=== PATIENT | male | born 1960 | race African-American/Black ===

== ENCOUNTER 2020-12-30 10:50 | Inpatient (IN) | payer OTHER ==
--- NOTE | 2020-12-30 11:55 | RAD REPORT ---
EXAM DESCRIPTION: RAD - Chest Single View - 12/30/2020 11:38 am CLINICAL HISTORY: COUGH, COVID positive COMPARISON: None TECHNIQUE: AP portable chest image was obtained 12/30/2020 11:38 am . FINDINGS: Lung volumes are relatively low. No dense consolidation or mass lesions seen. No failure o r volume overload. No definitive ground-glass opacification seen to indicate any significant degree o f COVID-19 pneumonia. Heart and vasculature are normal. No measurable pleural effusion and no pneumothorax. No acute bony abnormality seen. No acute aortic findings suspected. IMPRESSION: No acute cardiopulmonary process. No definitive evidence for a COVID-19 pneumonia. If medical management would be altered by definitive pneumonia diagnosis, CT chest imaging could be performed for more sensitive assessment of lung paren chyma.
[2020-12-30] MEDS ORDERED: NA CHLORIDE 0.9% 1,000 ML ONE (12:08)
[2020-12-30] MEDS ORDERED: ONDANSETRON 4 MG/2 ML VIAL ONE (12:08)
[2020-12-30 12:21] LABS: Absolute Lymphocytes (CBC) 0.8 K/uL (0.7-4.9); Basophils % 0.1 % (0-1.3); Hematocrit 32.5 % (39.6-49.0); Lymphocytes % 12.8 % (15.3-44.8); MPV 8.9 fL (7.6-11.3); RBC Red Blood Cell Count 3.97 M/uL (4.33-5.43)
[2020-12-30 12:34] LABS: ALT/SGPT 23 U/L (12-78); AST/SGOT 28 U/L (15-37); Albumin 2.9 g/dL (3.4-5.0); Alkaline Phosphatase 78 U/L (45-117); BUN Blood Urea Nitrogen 56 mg/dL (7-18); Bicarbonate 24 mmol/L (21-32); Bilirubin Direct < 0.1 mg/dL (0-0.2); Bilirubin Total 0.2 mg/dL (0.2-1.0); Glucose Level 209 mg/dL (74-106); Lipase 94 U/L (73-393); Potassium 5.4 mmol/L (3.5-5.1); Protein, Total 7.1 g/dL (6.4-8.2); Sodium Level 141 mmol/L (136-145)
--- NOTE | 2020-12-30 13:49 | EDPHYS ---
Physician Documentation [facility] Name: Dusty Cintron Age: 60 yrs Sex: Male : 1960 Arrival Date: 12/30/2020 Time: 10:54 Bed 17 Private MD: ED Physician Barry Ramirez HPI: 12/30 15:42 This 60 yrs old Black Male presents to ER via Ambulatory with complaints of COVID+, tw4 Cough. 15:42 The patient presents to the emergency department with nausea, vomiting, Onset: The tw4 symptoms/episode began/occurred yesterday. Possible causes: unknown. The symptoms are aggravated by nothing. The symptoms are alleviated by nothing. Associated signs and symptoms: The patient has no apparent associated signs or symptoms. Severity of symptoms: At their worst the symptoms were moderate in the emergency department the symptoms are unchanged. The patient has not experienced similar symptoms in the past. Historical: - Allergies: 11:34 No Known Allergies; bp - Home Meds: 11:34 Insulin: Humulin 70/30 Sub-Q [Active]; BRILINTA oral oral [Active]; aspirin 81 mg Oral bp TbEC 1 tab once daily [Active]; - PMHx: 11:34 Diabetes - IDDM; CAD; bp - PSHx: 11:34 Heart stents; bp - Immunization history:: Adult Immunizations up to date. - Social history:: Smoking status: Patient denies any tobacco usage or history of. ROS: 15:46 Constitutional: Negative for fever, chills, and weight loss, Cardiovascular: Negative tw4 for chest pain, palpitations, and edema, Respiratory: Negative for shortness of breath, cough, wheezing, and pleuritic chest pain, Back: Negative for injury and pain, MS/Extremity: Negative for injury and deformity, Skin: Negative for injury, rash, and discoloration, Neuro: Negative for headache, weakness, numbness, tingling, and seizure. 15:46 Abdomen/GI: Positive for abdominal pain, nausea and vomiting, nausea, vomiting, diarrhea, Negative for abdominal cramps, abdominal distension, anorexia, dysphagia, hematemesis, black/tarry stool, rectal pain, rectal bleeding. Exam: 15:46 Constitutional: This is a well developed, well nourished patient who is awake, alert, tw4 and in no acute distress. Head/Face: Normocephalic, atraumatic. Chest/axilla: Normal chest wall appearance and motion. Nontender with no deformity. No lesions are appreciated. Cardiovascular: Regular rate and rhythm with a normal S1 and S2. No gallops, murmurs, or rubs. Normal PMI, no JVD. No pulse deficits. Respiratory: Lungs have equal breath sounds bilaterally, clear to auscultation and percussion. No rales, rhonchi or wheezes noted. No increased work of breathing, no retractions or nasal flaring. Abdomen/GI: Soft, non-tender, with normal bowel sounds. No distension or tympany. No guarding or rebound. No evidence of tenderness throughout. Back: No spinal tenderness. No costovertebral tenderness. Full range of motion. MS/ Extremity: Pulses equal, no cyanosis. Neurovascular intact. Full, normal range of motion. Neuro: Awake and alert, GCS 15, oriented to person, place, time, and situation. Cranial nerves II-XII grossly intact. Motor strength 5/5 in all extremities. Sensory grossly intact. Cerebellar exam normal. Normal gait. Vital Signs: 11:31 BP 147 / 92; Pulse 89; Resp 17; Temp 100.1; Pulse Ox 97% ; Weight 92.99 kg; Height 5 bp ft. 11 in. (180.34 cm); 13:00 BP 157 / 86; Pulse 88; Resp 16; Pulse Ox 100% ; bp 11:31 Body Mass Index 28.59 (92.99 kg, 180.34 cm) bp MDM: 11:19 Patient medically screened. tw4 15:47 Differential diagnosis: Nonspecific abd pain, gastritis, cholecystitis. Data reviewed: tw4 vital signs, nurses notes. Data interpreted: Pulse oximetry: Interpretation: normal. Counseling: I had a detailed discussion with the patient and/or guardian regarding: the historical points, exam findings, and any diagnostic results supporting the discharge/admit diagnosis, lab results, radiology results. Physician consultation: Case Siu regarding admission. 12/30 11:37 Order name: Basic Metabolic Panel tw4 12/30 11:37 Order name: CBC with Diff; Complete Time: 12:46 tw4 12/30 11:37 Order name: Hepatic Function tw4 12/30 11:37 Order name: Lipase; Complete Time: 12:46 tw4 12/30 11:38 Order name: Basic Metabolic Panel; Complete Time: 12:46 EDVA 12/30 12:46 Interpretation: Normal except: CRE 3.03; BUN 56; GLUC 209; CL 109; K 5.4; CA 8.1. tw4 12/30 11:38 Order name: Liver (Hepatic) Function; Complete Time: 12:46 EDVA 12/30 10:58 Order name: CXR XRAY; Complete Time: 12:46 tw4 12/30 11:37 Order name: IV Saline Lock; Complete Time: 12:03 tw4 12/30 11:37 Order name: Labs collected and sent; Complete Time: 12:03 tw4 Administered Medications: 12:00 Drug: Zofran (Ondansetron) 4 mg Route: IVP; Site: right forearm; bp 12:00 Drug: NS 0.9% 1000 ml Route: IV; Rate: 1 bolus; Site: right forearm; bp Disposition: 12/30/20 13:47 Hospitalization ordered by Case Siu for Observation. Preliminary diagnosis are Acute kidney failure, Nausea and vomiting. - Bed requested for Telemetry/MedSurg (observation). - Status is Observation. aa5 - Condition is Stable. - Problem is new. - Symptoms have improved. Signatures: Dispatcher [employer] Glory Granda, RN RN dw Ivett Browning, RN RN aa5 Gabino Wgigins RN RN Barry Posey MD MD tw4 Corrections: (The following items were deleted from the chart) 15:56 13:47 Hospitalization Ordered by Case Siu for Observation. Preliminary diagnosis dw is Acute kidney failure; Nausea and vomiting. Bed requested for Telemetry/MedSurg (observation). Status is Observation. Condition is Stable. Problem is new. Symptoms have improved. tw4 17:31 15:56 12/30/2020 13:47 Hospitalization Ordered by Case Siu for Observation. aa5 Preliminary diagnosis is Acute kidney failure; Nausea and vomiting. Bed requested for Telemetry/MedSurg (observation). Status is Observation. Condition is Stable. Problem is new. Symptoms have improved. dw
--- NOTE | 2020-12-30 13:49 | ER ---
Nurse's Notes [facility] Name: Dusty Cintron Age: 60 yrs Sex: Male : 1960 Arrival Date: 12/30/2020 Time: 10:54 Bed 17 Private MD: Diagnosis: Acute kidney failure;Nausea and vomiting Presentation: 12/30 11:31 Chief complaint: Patient states: TEST COVID + LAST WEDNESDAY, FEELING WORSE WITH N/V AND bp FATIGUE LAST PM. Coronavirus screen: Client reports previous positive COVID test result. Ebola Screen: No symptoms or risks identified at this time. Initial Sepsis Screen: Does the patient meet any 2 criteria? No. Patient's initial sepsis screen is negative. Does the patient have a suspected source of infection? No. Patient's initial sepsis screen is negative. Risk Assessment: Do you want to hurt yourself or someone else? Patient reports no desire to harm self or others. Onset of symptoms was December 29, 2020 at 19:00. 11:31 Method Of Arrival: Ambulatory bp 11:31 Acuity: DAVY 3 bp Triage Assessment: 11:34 General: Appears distressed, uncomfortable, Behavior is cooperative, appropriate for bp age, anxious. Pain: Denies pain. EENT: No deficits noted. Neuro: No deficits noted. Cardiovascular: No deficits noted. Respiratory: Reports cough that is. GI: Reports nausea, vomiting. : No signs and/or symptoms were reported regarding the genitourinary system. Derm: No deficits noted. Musculoskeletal: No deficits noted. Historical: - Allergies: 11:34 No Known Allergies; bp - Home Meds: :34 Insulin: Humulin 70/30 Sub-Q [Active]; BRILINTA oral oral [Active]; aspirin 81 mg Oral bp TbEC 1 tab once daily [Active]; - PMHx: 11:34 Diabetes - IDDM; CAD; bp - PSHx: 11:34 Heart stents; bp - Immunization history:: Adult Immunizations up to date. - Social history:: Smoking status: Patient denies any tobacco usage or history of. Screenin:36 Abuse screen: Denies threats or abuse. Denies injuries from another. Nutritional bp screening: No deficits noted. Tuberculosis screening: No symptoms or risk factors identified. Fall Risk None identified. Assessment: 11:36 General: SEE TRIAGE NOTE. bp 13:31 Reassessment: No changes from previously documented assessment. Patient and/or family bp updated on plan of care and expected duration. Pain level reassessed. Patient is alert, oriented x 3, equal unlabored respirations, skin warm/dry/pink. ALL CURRENT ORDERS COMPLETED. Vital Signs: 11:31 BP 147 / 92; Pulse 89; Resp 17; Temp 100.1; Pulse Ox 97% ; Weight 92.99 kg; Height 5 bp ft. 11 in. (180.34 cm); 13:00 BP 157 / 86; Pulse 88; Resp 16; Pulse Ox 100% ; bp 11:31 Body Mass Index 28.59 (92.99 kg, 180.34 cm) bp ED Course: 10:54 Patient arrived in ED. mr 11:15 Gabino Wiggins, RN is Primary Nurse. bp 11:19 Barry Ramirez MD is Attending Physician. tw4 11:32 Triage completed. bp 11:35 Arm band placed on. bp 11:36 Patient has correct armband on for positive identification. Bed in low position. Call bp light in reach. Side rails up X2. 11:38 CXR XRAY In Process Unspecified. EDMS 12:00 Inserted saline lock: 20 gauge in right forearm, using aseptic technique. Blood bp collected. 13:46 Case Siu is Hospitalizing Provider. tw4 17:25 No provider procedures requiring assistance completed. Patient admitted, IV remains in aa5 place. Administered Medications: 12:00 Drug: Zofran (Ondansetron) 4 mg Route: IVP; Site: right forearm; bp 12:00 Drug: NS 0.9% 1000 ml Route: IV; Rate: 1 bolus; Site: right forearm; bp Outcome: 13:47 Decision to Hospitalize by Provider. tw4 17:25 Admitted to Med/surg accompanied by tech, via wheelchair, with chart. aa5 17:25 Condition: stable 17:25 Instructed on the need for admit. 17:31 Patient left the ED. aa5 Signatures: Dispatcher [employer] EDTN QuevedoLali mccann mr BrowningIvett, RN RN aa5 Gabino Wiggins, RN RN bp Barry Ramirez MD MD tw4
--- NOTE | 2020-12-30 15:27 | P.HP ---
Certification for Inpatient Patient admitted to: Observation With expected LOS: <2 Midnights Practitioner: I am a practitioner with admitting privileges, knowledge of patient current condition, hospital course, and medical plan of care. Services: Services provided to patient in accordance with Admission requirements found in Title 42 Section 412.3 of the Code of Federal Regulations Patient History Date of Service: 12/30/20 Reason for admission: Cough, nausea and vomiting. History of Present Illness: 60-year-old gentleman with a history of diabetes, coronary artery disease and chronic kidney disease presented to the emergency department with a complaint of progressive worsening nonproductive cough along with nausea and vomiting, diarrhea and shortness of breath with exertion. Patient stated he tested positive for COVID 1 week ago. He got his 1st dose of COVID 19 vaccine a few days before he tested positive. Workup in the ED is notable for acute renal failure with creatinine up to 3 compared to a baseline of 0.9 nine years ago. Patient states he follows with a reacher at [facility] but does not know his most recent creatinine value. His chest x-ray is negative for infiltrate. Patient not requiring oxygen. Patient is placed under observation for further management of acute renal failure secondary to dehydration. Allergies No Known Allergies Allergy (Unverified 08/14/12 08:53) - Past Medical/Surgical History -: Coronary artery disease -: Diabetes mellitus type 2 -: Chronic kidney disease -: Hypertension -: Hyperlipidemia -: Coronary stent - Family History Mother -: Diabetes - Social History Smoking Status: Never smoker Alcohol use: No CD- Drugs: No Place of Residence: Home Review of Systems Other: Except as documented, all other systems reviewed and negative. Physical Examination - Physical Exam General: Alert, In no apparent distress, Oriented x3 HEENT: Atraumatic, Normocephalic, PERRLA, EOMI Neck: Supple, JVD not distended Cardiovascular: No edema, Regular rate/rhythm, Normal S1 S2 Gastrointestinal: Soft and benign, Non-distended, No tenderness Musculoskeletal: No swelling, No tenderness Integumentary: No rashes, No erythema Neurological: Normal speech, Normal strength at 5/5 x4 extr, Cranial nerves 3-12 intact - Studies Laboratory Data (last 24 hrs) 12/30/20 12:00: WBC 6.30, Hgb 10.5 L, Hct 32.5 L, Plt Count 219 12/30/20 12:00: Sodium 141, Potassium 5.4 H, BUN 56 H, Creatinine 3.03 H, Glucose 209 H, Total Bilirubin 0.2, AST 28, ALT 23, Alkaline Phosphatase 78, Lipase 94 Assessment and Plan - Problems (Diagnosis) (1) Acute renal failure Current Visit: Yes Status: Acute (2) COVID-19 virus infection Current Visit: Yes Status: Acute (3) Diabetes mellitus type 2 in nonobese Current Visit: Yes Status: Acute (4) Coronary artery disease Current Visit: Yes Status: Acute (5) Hypertension Current Visit: Yes Status: Acute - Plan Place patient under observation. Aggressively hydrate with IV normal saline. Consult to nephrology Monitor renal function. Symptomatic treatment for COVID URI. Novolin N b.i.d., pre-meal Novolin R and insulin sliding scale for glucose management. Continue home medications for other chronic medical problems. Obtain renal ultrasound. Monitor and replete electrolytes as needed. - Advance Directives Does patient have a Living Will: No Does patient have a Durable POA for Healthcare: No
[2020-12-30] MEDS: HEPARIN 5000 UNIT/ML 1 ML VIAL SQ SCH (17:58)
[2020-12-30] MEDS: NA CHLORIDE 0.9% 1,000 ML IV SCH (17:58)
[2020-12-30] MEDS: INSULIN -REGULAR HUMAN 50 UNIT/0.5 ML ML SQ SCH ×2 (17:58→21:25)
[2020-12-30 18:43] VITALS: BMI 28.4
[2020-12-30] MEDS: BENZONATATE 100 MG CAP PO PRN (21:13)
[2020-12-30] MEDS: ACETAMINOPHEN 500 MG TAB PO PRN ×2 (21:13→22:42)
[2020-12-30 22:23] LABS: Urine Appearance CLEAR; Urine Bilirubin NEGATIVE (NEG); Urine Blood 2+ (NEG); Urine Color YELLOW; Urine Glucose NEGATIVE (NEG); Urine Protein 3+ (NEG); Urine Specific Gravity 1.015 (1.005-1.030); Urine Urobilinogen 0.2 mg/dL (0.2-1.0); Urine pH 5.5 (5.0-7.0)
[2020-12-30 22:27] LABS: Urine Microscopic Reflex ORDER UMIC
[2020-12-30 23:01] LABS: Urine Bacteria <20 /HPF (NONE SEEN)
[2020-12-31] MEDS: HEPARIN 5000 UNIT/ML 1 ML VIAL SQ SCH ×3 (00:21→17:52)
[2020-12-31] MEDS: NA CHLORIDE 0.9% 1,000 ML IV SCH ×4 (01:51→22:00)
[2020-12-31 04:13] LABS: Absolute Lymphocytes (CBC) 1.6 K/uL (0.7-4.9); Basophils % 0.2 % (0-1.3); Hematocrit 26.2 % (39.6-49.0); Lymphocytes % 26.8 % (15.3-44.8); MPV 8.9 fL (7.6-11.3); RBC Red Blood Cell Count 3.18 M/uL (4.33-5.43)
[2020-12-31 05:06] LABS: C-Reactive Protein 19.5 mg/L (<3.00); Ferritin 165.1 ng/mL (26-388); Magnesium 2.4 mg/dL (1.8-2.4); Phosphorus 3.3 mg/dL (2.5-4.9); Potassium 5.1 mmol/L (3.5-5.1); Thyroid Stimulating Hormone 0.851 uIU/mL (0.360-3.740)
[2020-12-31] MEDS: INSULIN -REGULAR HUMAN 50 UNIT/0.5 ML ML SQ SCH ×4 (08:03→19:34)
[2020-12-31] MEDS: ACETAMINOPHEN 500 MG TAB PO PRN ×2 (12:46→19:36)
[2020-12-31] MEDS: ONDANSETRON 4 MG/2 ML VIAL IV PRN ×2 (13:10→19:34)
--- NOTE | 2020-12-31 18:09 | P.PN ---
Subjective Date of Service: 12/31/20 Chief Complaint: Cough, nausea and vomiting. Subjective: Improving (doing well, feeling ok, denies shortness of breath, no abdominal pain) Review of Systems 10-point ROS is otherwise unremarkable Physical Examination - Vital Signs Temperature: 98.8 F Blood Pressure: 186/90 Pulse: 85 Respirations: 18 Pulse Ox (%): 94 Assessment & Plan Physician Review Additional Text: Physical Exam General: Alert, In no apparent distress, Oriented x3 HEENT: sclera anicteric, MMM Pulm: breathing comfortably on RA CV: No edema, Regular rate/rhythm, Normal S1 S2 Abd: Soft and benign, Non-distended, No tenderness Musculoskeletal: No swelling, No tenderness Problem List: Acute renal failure COVID-19 pneumonia DM2 CAD HTN continue with aggressive hydration with IV normal saline. nephrology consulted Monitor renal function. Symptomatic treatment for COVID-19 pneumonia. mild symptoms at this time, no O2 requirement Novolin N b.i.d., pre-meal Novolin R and insulin sliding scale for glucose management. Continue home medications for other chronic medical problems. Monitor and replete electrolytes as needed. Dispo: anticipate dc home in 24-48hrs Time Spent Managing Pts Care (In Minutes): 35
[2020-12-31] MEDS: BENZONATATE 100 MG CAP PO PRN (19:35)
[2020-12-31] MEDS ORDERED: HYDROCODONE/APAP 10/325 TAB PO PRN (20:18)
[2020-12-31] MEDS: METOPROLOL XL 25 MG TAB PO SCH (21:48)
[2020-12-31] MEDS: ATORVASTATIN 80 MG TAB PO SCH (21:48)
[2020-12-31] MEDS: TICAGRELOR 90 MG TABLET PO SCH (21:48)
[2020-12-31] MEDS ORDERED: ATORVASTATIN 80 MG TAB ONE (21:50)
[2020-12-31] MEDS ORDERED: METOPROLOL XL 25 MG TAB PO ONE (21:51)
[2020-12-31] MEDS ORDERED: TICAGRELOR 90 MG TABLET PO ONE (21:56)
[2020-12-31 22:26] VITALS: O2SAT 96
[2021-01-01] MEDS: HEPARIN 5000 UNIT/ML 1 ML VIAL SQ SCH ×3 (00:19→16:22)
[2021-01-01 04:10] LABS: Absolute Lymphocytes (CBC) 1.6 K/uL (0.7-4.9); Basophils % 0.2 % (0-1.3); Hematocrit 25.8 % (39.6-49.0); Lymphocytes % 27.5 % (15.3-44.8); MPV 8.7 fL (7.6-11.3); RBC Red Blood Cell Count 3.18 M/uL (4.33-5.43)
[2021-01-01 04:22] LABS: Albumin 2.2 g/dL (3.4-5.0); C-Reactive Protein 30.8 mg/L (<3.00); Ferritin 235.4 ng/mL (26-388); Phosphorus 3.1 mg/dL (2.5-4.9)
[2021-01-01] MEDS: METOPROLOL XL 25 MG TAB PO SCH ×2 (05:25→19:51)
[2021-01-01] MEDS: ONDANSETRON 4 MG/2 ML VIAL IV PRN (05:32)
[2021-01-01] MEDS: NA CHLORIDE 0.9% 1,000 ML IV SCH (05:38)
[2021-01-01] MEDS: HYDRALAZINE HCL 20 MG/ML VIAL IV PRN ×2 (06:35→11:33)
[2021-01-01 07:51] LABS: CKMB Creatine Kinase MB 2.7 ng/mL (0.3-3.6); Uric Acid 9.4 mg/dL (3.5-7.2)
[2021-01-01] MEDS: PROMETHAZINE INJ 25 MG/ML AMP IV PRN ×3 (07:54→19:48)
[2021-01-01] MEDS: TAMSULOSIN 0.4 MG SR CAP PO SCH (08:01)
[2021-01-01] MEDS: ASPIRIN 81 MG CHEWABLE TABLET PO SCH (08:01)
[2021-01-01] MEDS: INSULIN -REGULAR HUMAN 50 UNIT/0.5 ML ML SQ SCH ×4 (08:02→21:00)
--- NOTE | 2021-01-01 08:45 | RAD REPORT ---
EXAM DESCRIPTION: US - Renal Ultrasound-Complete - 01/01/2021 8:21 am CLINICAL HISTORY: Acute renal failure COMPARISON: None FINDINGS: The right kidney measures 12 cm with a normal echotexture. 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 Hydronephrosis is not seen. No gross abnormality of bladder IMPRESSION: Unremarkable renal ultrasound.
[2021-01-01] MEDS: TICAGRELOR 90 MG TABLET PO SCH ×2 (09:22→19:51)
[2021-01-01 13:04] LABS: C.diff Antigen/Toxin Ag neg : Tox neg (NEG : NEG)
[2021-01-01 15:19] LABS: Urine Protein/Creatinine Ratio 6.07 ratio (<0.15)
[2021-01-01] MEDS ORDERED: NA CHLORIDE 0.9% 500 ML IV ONE (16:00)
[2021-01-01 16:09] LABS: Urine Appearance CLEAR; Urine Bilirubin NEGATIVE (NEG); Urine Blood 2+ (NEG); Urine Color YELLOW; Urine Glucose 1+ (NEG); Urine Protein 3+ (NEG); Urine Urobilinogen 0.2 mg/dL (0.2-1.0); Urine pH 5.5 (5.0-7.0)
[2021-01-01] MEDS: carvediloL 12.5 MG TAB PO SCH (16:22)
[2021-01-01 16:39] LABS: Urine Microscopic Reflex ORDER UMIC
[2021-01-01 16:43] LABS: Urine Amorphous Sediment 1+ /HPF (NONE SEEN); Urine Bacteria <20 /HPF (NONE SEEN); Urine RBC <5 /HPF (NONE SEEN)
--- NOTE | 2021-01-01 17:09 | P.PN ---
Subjective Date of Service: 01/01/21 Chief Complaint: Cough, nausea and vomiting. Subjective: No new changes (with slight worse nausea overnight, not feeling as well today. BP elevated) Review of Systems 10-point ROS is otherwise unremarkable Physical Examination - Vital Signs Temperature: 98.6 F Blood Pressure: 172/76 Pulse: 88 Respirations: 18 Pulse Ox (%): 96 Assessment & Plan Physician Review Additional Text: Physical Exam General: Alert, nauseous HEENT: sclera anicteric, moist mucous membranes Pulm: breathing comfortably on RA CV: No edema, Regular rate/rhythm, Normal S1 S2 Abd: Soft and benign, Non-distended, No tenderness Musculoskeletal: No swelling, No tenderness Problem List: Acute renal failure - secondary to NSAID nausea/vomiting/diarrhea COVID-19 pneumonia DM2 CAD HTN nephrology consulted - continue IVF, labs /renal U/S ordered Symptomatic treatment for COVID-19 pneumonia. mild symptoms at this time, no O2 requirement Novolin N b.i.d., pre-meal Novolin R and insulin sliding scale for glucose management. n/v/d with some mild improvement of diarrhea, nausea/vomiting back again. timeline with symptoms likely due to COVID And Zofran did not help with the nausea, will try Phenergan Continue home medications for other chronic medical problems. remains hypertensive, nephrology titrating medications Monitor and replete electrolytes as needed. Dispo: anticipate dc home in ~48hrs Time Spent Managing Pts Care (In Minutes): 40
--- NOTE | 2021-01-01 17:43 | CON ---
Reason For Consultation: Elevated BUN and creatinine. History Of Present Illness: This is a 60-year-old gentleman with significant past medical history of coronary artery disease status post PTCA, diabetes complicated with neuropathy, no retinopathy. The patient was diagnosed with COVID 1 week ago. Then, his respiratory status got worse with cough, no sputum. Had fever. No chills. The patient apparently taking ibuprofen and Motrin 2 tablets twice a day for the last 1 week. The patient denied any IV contrast. The patient's upon arrival to the hospital creatinine was 3, currently trended down to 2.5. Blood pressure has been not controlled. Past Medical History: 1. Coronary artery disease status post PTCA. 2. Hypertension. 3. Hyperlipidemia. 4. Diabetes complicated with neuropathy. Past Surgical History: PTCA. Family History: Positive for diabetes. Social History: Denied smoking, denied drinking, denied drugs abuse. Allergies: NO KNOWN DRUGS ALLERGY. Review of Systems: Head and Neck: No red eye. No ear pain. GI: No nausea. No vomiting. Decreased intake. : No polyuria. No dysuria. No hematuria. 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 Respiratory: Has cough, has shortness of breath. Cardiovascular: No chest pain. Endocrine: No polydipsia. Skin: No rash. Neuro: Has neuropathy. Musculoskeletal: Generalized fatigue. Home Medications: Include lisinopril, hydrochlorothiazide, Brilinta, Flomax, insulin, hydrocodone, Lasix, atorvastatin, and aspirin. Physical Examination: Vital Signs: When I saw the patient; blood pressure 180/87, pulse of 92. Chest: Clear to auscultation. Heart: S1, S2. Regular. Abdomen: Soft, nontender. Extremity: No edema. Neuro: Alert and oriented x3. No focal. Laboratory Data: Upon admission to the hospital; sodium 141, potassium 5.4, bicarb 24, BUN 56, creatinine 3, GFR of 26, calcium 8.1. WBC 6.3, H and H 10.5/32. Today's lab; WBC 5.8, H and H 8.6/25.8. Sodium 142, potassium 5, bicarb 21, BUN 48, creatinine 2.5, GFR of 32, calcium 7.6, phosphorus 3.1. C- reactive protein 30, PTH 84, PC ratio of 6. Urinalysis has RBCs, no WBC. Renal ultrasound 10/24, no hydronephrosis. Chest x-ray, marginal congestion. Current Medications: Include aspirin, promethazine, Flomax, Brilinta, hydralazine. IV fluid has been held today. Assessment And Plan: 1. Acute kidney injury, multifactorial, secondary to COVID nephropathy/prerenal secondary to poor intake, superimposed of nonsteroidal intake. Hydrochlorothiazide, Lasix, and MARIA G inhibitor. On the recovery phase. The patient looked to me still on the dry side even though with the presence of elevation of blood pressure. I am going to go ahead and resume IV fluid at and we will monitor the patient closely given the improvement in the kidney function. Doubt to be any autoimmune disease as the patient is being improving without any special treatment, but with the presence of nephrotic range of proteinuria even though could be mostly secondary to his diabetes. I am going to go ahead and we will send for serology. I am going to send for serum protein electrophoresis and we will follow up the patient. 2. Hypertension, not controlled. I agree with holding the diuresis including hydrochlorothiazide and Lasix, holding MARIA G inhibitor. I am going to start the patient on hydralazine scheduled dose and hydralazine p.r.n. for better blood pressure control and we will continue to monitor the patient. We will add for calcium channel jose enrique. 3. Anemia with the presence of acute kidney injury. Light chain disease needs to be ruled out. I am going to send for serum protein electrophoresis. 4. COVID pneumonia as by primary. 5. Hyperkalemia, status post hydration, recovered, resolved. 6. Hematuria, no leukourea or proteinurea I am going to go ahead and repeat the UA, possible secondary to viral presentation. If kidney function continued to improve, I do not think it is any significant, but if kidney function did not improve at that time, we will follow up serology and we will consider if we are going to need kidney biopsy or not. Time spent discussing with the patient, examining the patient, exam [id number], placing order, discussing with staff and other consulting include including Cardiology and Primary 75 minutes. AYANNA Voice ID: [id number] Report ID: [id number] NANCY
[2021-01-01] MEDS: HYDRALAZINE HCL 25 MG TABLET PO SCH (19:51)
[2021-01-01] MEDS: ATORVASTATIN 80 MG TAB PO SCH (19:53)
[2021-01-02] MEDS: HEPARIN 5000 UNIT/ML 1 ML VIAL SQ SCH ×2 (01:28→08:50)
[2021-01-02 04:10] LABS: Absolute Lymphocytes (CBC) 1.1 K/uL (0.7-4.9); Basophils % 0.2 % (0-1.3); Hematocrit 26.9 % (39.6-49.0); Lymphocytes % 13.6 % (15.3-44.8); MPV 8.7 fL (7.6-11.3); RBC Red Blood Cell Count 3.27 M/uL (4.33-5.43)
[2021-01-02 05:55] LABS: Albumin 2.2 g/dL (3.4-5.0); C-Reactive Protein 22.7 mg/L (<3.00); Ferritin 330.8 ng/mL (26-388); Folic Acid, (Folate) 17.3 ng/mL (3.1-17.5); Magnesium 2.7 mg/dL (1.8-2.4); Phosphorus 3.4 mg/dL (2.5-4.9); Potassium 4.5 mmol/L (3.5-5.1); Thyroid Stimulating Hormone 0.672 uIU/mL (0.360-3.740); Uric Acid 9.9 mg/dL (3.5-7.2)
[2021-01-02] MEDS: carvediloL 12.5 MG TAB PO SCH (06:24)
[2021-01-02] MEDS: INSULIN -REGULAR HUMAN 50 UNIT/0.5 ML ML SQ SCH ×2 (08:48→12:01)
[2021-01-02] MEDS: ASPIRIN 81 MG CHEWABLE TABLET PO SCH (08:48)
[2021-01-02] MEDS: METOPROLOL XL 25 MG TAB PO SCH (08:49)
[2021-01-02] MEDS: HYDRALAZINE HCL 25 MG TABLET PO SCH (08:49)
[2021-01-02] MEDS: TAMSULOSIN 0.4 MG SR CAP PO SCH (08:49)
[2021-01-02] MEDS: TICAGRELOR 90 MG TABLET PO SCH (08:59)
[2021-01-02] MEDS ORDERED: predniSONE 20 MG TAB PO SCH (09:00)
[2021-01-02] MEDS ORDERED: AMLODIPINE 10 MG TAB PO SCH (09:00)
[2021-01-02 12:20] VITALS: BP 135/69; TEMP 99.2
[2021-01-02] MEDS ORDERED: SOD FERRIC GLUC COMPLX/SUCROSE 250 MG in NA CHLORIDE 0.9% 250 ML IV SCH (13:00)
--- NOTE | 2021-01-02 15:13 | RAD REPORT ---
EXAM DESCRIPTION: RAD - Chest Single View - 01/02/2021 2:54 pm CLINICAL HISTORY: COPD Chest pain. COMPARISON: Chest Single View dated 12/30/2020 FINDINGS: Portable technique limits examination quality. The lungs are grossly clear. The heart is upper limit of normal in size. No displaced fractures. IMPRESSION: No acute intrathoracic process suspected.
--- NOTE | 2021-01-02 18:55 | PN ---
Date of Progress Note: 01/02/2021 Subjective: The patient was admitted with acute kidney injury secondary to COVID nephropathy plateau. The patient found to have nephrotic range proteinuria. Serology still pending. Patient symptomatically has been improved. Objective: Vital Signs: Blood pressure 135/69, pulse of 79, afebrile. Chest: Clear to auscultation. Heart: S1, S2, regular. Abdomen: Soft, nontender. Extremities: No edema. Laboratory Data: WBC 7.8, H and H 8.5/26.9. Sodium 146, potassium 4.5, bicarb 20, BUN 46, creatinine 2.6, GFR of 30. Uric acid 9.9. Iron saturation is 15, ferritin of 330. CK of 1400. Serum protein electrophoresis is still pending. PTH of 84. Urinalysis, PC ratio of 6, gram negative for infection. Serology and immunology still pending. Renal ultrasound showed normal size kidney, 12 and 10. No hydronephrosis. Current Medications: The patient on include IV iron, heparin, Brilinta, amlodipine, carvedilol, hydralazine 50 t.i.d., metoprolol, prednisone, hydrocodone. Assessment And Plan: 1. Acute kidney injury on chronic kidney disease. Normal size kidney. Nephrotic range proteinuria. Baseline creatinine and known back in 2011 within normal limit. It is multifactorial secondary to #1. 2. MARIA G inhibitor. 3. Nonsteroidal use. 4. Renal. 5. COVID nephropathy. 6. MARIA G inhibitor and Lasix/hydrochlorothiazide, currently plateau. With the presence of nephrotic range proteinuria and anemia, light chain disease needs to be ruled out. The patient is stable from the renal standpoint for discharge planning. We will keep holding MARIA G inhibitor, Lasix and hydrochlorothiazide. Will look for discontinue and we will follow up serology as outpatient. 7. Iron deficiency anemia. Continue IV iron. 8. Hypertension, controlled, optimal, keep holding MARIA G inhibitor, hydrochlorothiazide and Lasix. We will try to resume it as outpatient and we will follow up. 9. Anemia of chronic kidney disease, iron deficiency anemia. Started on IV iron. We will follow up. 10. COVID pneumonia as by primary. 11. Hyperkalemia, recovered, resolved. 12. Nephrotic range proteinuria with hematuria that has been resolved after hydration. As above, follow up serology. Time spent discussing with the patient, examining the patient, exam [id number], placing order, discussing with staff and other consulting include including Cardiology and Primary 45 minutes. AYANNA Voice ID: [id number] Report ID: [id number]
[2021-01-03 10:17] LABS: Rheumatoid Factor NEG (NEG)
[2021-01-04 10:10] LABS: Hepatitis C Virus RNA (PCR)log <1.18 log IU/mL
[2021-01-04 13:03] LABS: HIV AG/AB 4TH GEN Non-reactive (Non-reactive)
[2021-01-04 18:11] LABS: HBsAG Nonreactive (Nonreactive)
[2021-01-05 22:08] LABS: Vitamin D 1,25-Dihydroxy Total 61 pg/mL (18-72); Vitamin D,1,25-OH2, D2 <8 pg/mL
[2021-01-05 22:43] LABS: Albumin, (SPE) 2.4 g/dL (3.8-4.8); Alpha-1-Globulins 0.4 g/dL (0.2-0.3); Gamma Globulins 0.6 g/dL (0.8-1.7); INTERPRETATION REPORT
--- NOTE | 2021-01-09 11:40 | P.DS ---
Admission Date: 12/30/20 Discharge Date: 01/02/21 Disposition: ROUTINE DISCHARGE Discharge Condition: GOOD Reason for Admission: Cough, nausea and vomiting. Consultations: Nephrology - Dr. Rollins Procedures: CXR (12/30): : No acute cardiopulmonary process. No definitive evidence for a COVID-19 pneumonia Renal U/S (01/01): Unremarkable renal ultrasound. CXR (01/02): No acute intrathoracic process suspected. Problem List: BRENDA on CKD (unknown baseline/stage), nephrotoic range proteinura, multifactorial - NSAID use, COVID nephropathy, dehydration nausea/vomiting/diarrhea - secondary to COVID-19 infection COVID-19 infection DM2, insulin dependent iron deficiency anemia CAD HTN Brief History of Present Illness: 60yo M , PMH: DM2, CAD, CKD (unknown baseline/stage), presented to the emergency department with a complaint of progressive worsening nonproductive cough along with nausea and vomiting, diarrhea and shortness of breath with exertion. Patient stated he tested positive for COVID 1 week ago. He got his 1st dose of COVID 19 vaccine a few days before he tested positive. Workup in the ED is notable for acute renal failure with creatinine up to 3 compared to a baseline of 0.9 nine years ago. 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 His chest x-ray is negative for infiltrate. Patient not requiring oxygen. Hospital Course: Patient was admitted, Nephrology was consulted and workup for his BRENDA on CKD revealed nephrotic range proteinuria. He reported NSAID usage to the driver examiner. The BRENDA was felt to be multifactorial due to NSAID usage, COVID nephropathy, and prerenal/dehydration. There was concern for light chain disease due to presence of nephrotic range proteinuria and anemia. Serology was ordered and sent out. He received IV iron for iron deficiency anemi. Patient's symptoms improved during his hospitalization, his CRP was noted to be elevated and he was treated for symptomatic COVID-19 infection with prednisone. He was discharged on prednisone and to follow up with nephrology - who will follow up on his serology as outpatient. Under their recommendation, he was advised to hold MARIA G inhibitor, Lasix, and HCTZ until follow up. He was prescribed Hydralazine and norvasc on discharge. Vital Signs/Physical Exam: Physical Exam: General: Alert, NAD HEENT: sclera anicteric, moist mucous membranes Pulm: breathing comfortably on RA, clear to auscultation bilaterally CV: No edema, Regular rate/rhythm, Normal S1 S2 Abd: Soft and benign, Non-distended, No tenderness Musculoskeletal: No swelling, No tenderness Temp Pulse Resp BP Pulse Ox 99.2 F 79 17 135/69 92 01/02/21 12:00 01/02/21 12:00 01/02/21 12:00 01/02/21 12:00 01/02/21 12:00 Laboratory Data at Discharge: WBC 7.80 K/uL (4.3-10.9) D 01/02/21 03:52 Hgb 8.5 g/dL (13.6-17.9) L 01/02/21 03:52 Hct 26.9 % (39.6-49.0) L 01/02/21 03:52 Plt Count 260 K/uL (152-406) D 01/02/21 03:52 Sodium 146 mmol/L (136-145) H 01/02/21 03:52 Potassium 4.5 mmol/L (3.5-5.1) 01/02/21 03:52 BUN 46 mg/dL (7-18) H 01/02/21 03:52 Creatinine 2.69 mg/dL (0.55-1.3) H 01/02/21 03:52 Glucose 161 mg/dL (74-106) H 01/02/21 03:52 Uric Acid 9.9 mg/dL (3.5-7.2) H 01/02/21 03:52 Phosphorus 3.4 mg/dL (2.5-4.9) 01/02/21 03:52 Magnesium 2.7 mg/dL (1.8-2.4) H 01/02/21 03:52 Total Bilirubin 0.2 mg/dL (0.2-1.0) 12/30/20 12:00 AST 28 U/L (15-37) 12/30/20 12:00 ALT 23 U/L (12-78) 12/30/20 12:00 Alkaline Phosphatase 78 U/L (45-117) 12/30/20 12:00 Lipase 94 U/L (73-393) 12/30/20 12:00 Home Medications: Aspirin 81 mg PO DAILY 12/30/20 Atorvastatin Calcium [Lipitor] 80 mg PO BEDTIME 12/30/20 Furosemide [Lasix*] 40 mg PO DAILY 12/30/20 Hydrocodone Bit/Acetaminophen [Hydrocodon-Acetaminophn 10-325] 1 each PO Q6HP PRN 12/30/20 Insulin -Regular Human [Novolin -R*] 15 unit SQ BID 12/30/20 Insulin NPH Human Isophane [Novolin N] 25 unit SQ BID 12/30/20 Metoprolol Succinate [Toprol Xl*] 25 mg PO BID 12/30/20 Tamsulosin [Flomax*] 0.4 mg PO DAILY 12/30/20 Ticagrelor [Brilinta*] 90 mg PO BID 12/30/20 Amlodipine [Norvasc*] 10 mg PO DAILY 30 Days #30 tab 01/02/21 Hydralazine [Apresoline*] 50 mg PO TID 30 Days #90 tab 01/02/21 Promethazine Tab [Phenergan] 12.5 mg PO Q6HP PRN #10 tab 01/02/21 carvediloL [Coreg*] 12.5 mg PO BID 30 Days #60 tab 01/02/21 predniSONE [Deltasone] 10 mg PO SEECOM #21 tab 01/02/21 New Medications: Promethazine Tab [Phenergan] 12.5 mg PO Q6HP PRN #10 tab PRN Reason: Nausea / Vomiting Hydralazine [Apresoline*] 50 mg PO TID 30 Days #90 tab carvediloL [Coreg*] 12.5 mg PO BID 30 Days #60 tab predniSONE [Deltasone] 10 mg PO SEECOM #21 tab Amlodipine [Norvasc*] 10 mg PO DAILY 30 Days #30 tab Time spent managing pt's care (in minutes): 45
== END 2021-01-02 15:12 | disposition home or self-care (01) | DRG 177 ==
LOC: ER 10:50 → ERHOLD 15:11 → OBSVTOIN 15:11 → INTOOBSV 15:11 → 4TH 16:12 → OBSVTOIN 01-01 19:09
PROVIDERS: ADMIT Internal Medicine; ATTEND Hospitalist
DX: U07.1 COVID-19 (principal); J12.82 Pneumonia due to coronavirus disease 2019; N17.9 Acute kidney failure, unspecified; E78.5 Hyperlipidemia, unspecified; E87.5 Hyperkalemia; I25.10 Atherosclerotic heart disease of native coronary artery without angina pectoris; D50.9 Iron deficiency anemia, unspecified; D63.1 Anemia in chronic kidney disease; E86.0 Dehydration; I12.9 Hypertensive chronic kidney disease with stage 1 through stage 4 chronic kidney disease, or unspecified chronic kidney disease; N18.9 Chronic kidney disease, unspecified; E11.22 Type 2 diabetes mellitus with diabetic chronic kidney disease; E11.40 Type 2 diabetes mellitus with diabetic neuropathy, unspecified; T39.395A Adverse effect of other nonsteroidal anti-inflammatory drugs [NSAID], initial encounter; R31.9 Hematuria, unspecified; Z79.4 Long term (current) use of insulin; Z79.82 Long term (current) use of aspirin; Z79.899 Other long term (current) drug therapy; Z95.5 Presence of coronary angioplasty implant and graft
CPT/HCPCS: 36415; 71045; 76770; 80048; 80069; 80076; 81003; 81015; 82550; 82553; 82570; 82607; 82652; 82728; 82746; 82947; 83036; 83520; 83540; 83690; 83735; 83970; 84100; 84145; 84156; 84165; 84443; 84466; 84550; 85025; 85044; 86021; 86140; 86160; 86225; 86430; 86704; 86706; 87324; 87340; 87389; 87449; 87522; 96374; 99285; J0360; J1644; J2405; J2550; J2916; J7030; J7040; J7050; J7512

== ENCOUNTER 2023-10-25 05:43 | Inpatient (IN) | payer OTHER ==
--- OUTSIDE RECORDS SUMMARY | 2023-10-25 05:53 | XMS REPORT | Continuity of Care Document ---
Author Name Unknown Address [address] [facility] [address] [place] [address] [facility] [address] [facility] [address] [place] [address] Care Team Providers Care Pier Master Assistant Name Role Phone Shawanda Wild DO Primary Care Physician [phone]- [phone] Kyung Bedoya Attending Clinician Shawanda Rubi Admitting Clinician Unavail able Payers Payer Name Policy Type Policy Number Effective Date Expirati on Date Source Problems Condition Name Condition Details Condition Category Status Onset Date Resolution Date Last Treatment Date Treating Clinician Comments Source Nausea & vomiting Nausea & vomiting Disease Active 0 9-05 00:00: [address] [facility] Generalize d abdominal pain Generalize d abdominal pain Disease Active 07-20 00:00: [address] [facility] Slow transit constipati on Slow transit constipati on Disease Active 07-20 00:00: [address] [facility] Gastropare sis due to DM Gastropare sis due to DM Disease Active 07-20 00:00: [address] [facility] Coronary artery disease involving mi'kmaq coronary artery Coronary artery disease involving mi'kmaq coronary artery Disease Active 07-20 00:00: [address] [facility] CAD S/P percutaneo us coronary angioplast y CAD S/P percutaneo us coronary angioplast y Disease Active 07-20 00:00: [address] [facility] Coronary artery disease involving mi'kmaq coronary artery Coronary artery disease involving mi'kmaq coronary artery Disease Active 07-20 00:00: [address] [facility] Acute renal failure Acute renal failure Disease Active 07-17 00:00: [address] [facility] Allergies, Adverse Reactions, Alerts Allergy Name Allergy Type Status Severity Reaction(s) Onset Date Inactive Date Treating Clinician Comments Source No Known Allergie s DA Active U 2-19 00:00: 00 [facility] No Known Allergie s DA Active U 2-19 00:00: 00 [facility] No Known Allergie s DA Active U 2019-11 0-13 00:00: 00 [facility] No Known Allergie s DA Active U 2019-11 0-13 00:00: 00 [facility] No Known Allergie s DA Active U 0 6-17 00:00: 00 [facility] No Known Allergie s DA Active U 0 6-17 00:00: 00 [facility] No Known Allergie s DA Active U 2018-11 1 00:00: 00 [facility] No Known Allergie s DA Active U 2018-11 1- 00:00: 00 [facility] No Known Allergie s DA Active U 2018-11 0-07 00:00: 00 [facility] No Known Allergie s DA Active U 9 00:00: 00 [facility] No Known Allergie s DA Active U 2017-11 1- 00:00: 00 [facility] No Known Allergie s DA Active U 2017-11 0-30 00:00: 00 [facility] No Known Allergie s DA Active U 2-14 00:00: 00 [facility] Social History Social Habit Start Date Stop Date Quantity Comments Source History SDOH Alcohol Std Drinks [facility] History SDOH Alcohol Binge [facility] History SDOH Alcohol Comment [facility] Tobacco use and exposure 2019-07-17 00:00:00 2019-07-17 00:00:00 Smokeless tobacco non-user [facility] Alcohol intake 2019-07-17 00:00:00 2019-07-17 00:00:00 Lifetime non-drinker (finding) [facility] History SDOH Alcohol Frequency 2019-07-17 00:00:00 2019-07-17 00:00:00 1 [facility] Sex Ass[birth year] At 1960 00:00:00 1960 00:00:00 [facility] Smoking Status Start Date Stop Date Source Never smoked tobacco [facility] Medications Ordered Medication Name Filled Medication Name Start Date Stop Date Current Medication? Ordering Clinician Indication Dosage Frequency Signature (SIG) Comments Components Source aspirin 81 mg chewable tablet 07-21 09:17: 25 Yes 81mg QD Chew 81 mg daily. [facility] cholecalcif alex, vitamin D3, 50,000 unit capsule 07-21 09:17: 25 Yes 2000U Q7D Take 2,000 Units by mouth once a week. [facility] ticagrelor (BRILINTA) 90 mg tablet 07-21 09:17: 25 Yes 90mg Q.5D Take 90 mg by mouth 2 (two) times a day. [facility] isosorbide dinitrate (ISORDIL) 10 MG tablet 07-21 09:17: 25 Yes 10mg Q.5D Take 10 mg by mouth 2 (two) times a day. [facility] atorvastati n (LIPITOR) 80 MG tablet 07-21 09:17: 25 Yes 80mg QD Take 80 mg by mouth daily. [facility] aspirin 81 mg chewable tablet 07-21 09:17: 25 Yes 81mg QD Chew 81 mg daily. [facility] cholecalcif alex, vitamin D3, 50,000 unit capsule 07-21 09:17: 25 Yes 2000U Q7D Take 2,000 Units by mouth once a week. [facility] tic[facility] (BRILINTA) 90 mg tablet 07-21 09:17: 25 Yes 90mg Q.5D Take 90 mg by mouth 2 (two) times a day. [facility] isos[facility] (ISORDIL) 10 MG tablet 07-21 09:17: 25 Yes 10mg Q.5D Take 10 mg by mouth 2 (two) times a day. [facility] atorvastati n (LIPITOR) 80 MG tablet 07-21 09:17: 25 Yes 80mg QD Take 80 mg by mouth daily. [facility] aspirin 81 mg chewable tablet 07-21 09:17: 25 Yes 81mg QD Chew 81 mg daily. [facility] l cholecalcif alex, vitamin D3, 50,000 unit capsule 07-21 09:17: 25 Yes 2000U Q7D Take 2,000 Units by mouth once a week. [facility] ticagrelor (BRILINTA) 90 mg tablet 07-21 09:17: 25 Yes 90mg Q.5D Take 90 mg by mouth 2 (two) times a day. [facility] isosorbide dinitrate (ISORDIL) 10 MG tablet 07-21 09:17: 25 Yes 10mg Q.5D Take 10 mg by mouth 2 (two) times a day. [facility] atorvast[facility] n (LIPITOR) 80 MG tablet 07-21 09:17: 25 Yes 80mg QD Take 80 mg by mouth daily. [facility] aspirin 81 mg chewable tablet 07-21 09:17: 25 Yes 81mg QD Chew 81 mg daily. [facility] cholecalcif alex, vitamin D3, 50,000 unit capsule 07-21 09:17: 25 Yes 2000U Q7D Take 2,000 Units by mouth once a week. [facility] ticagrelor (BRILINTA) 90 mg tablet 07-21 09:17: 25 Yes 90mg Q.5D Take 90 mg by mouth 2 (two) times a day. [facility] isosorbide dinitrate (ISORDIL) 10 MG tablet 07-21 09:17: 25 Yes 10mg Q.5D Take 10 mg by mouth 2 (two) times a day. [facility] atorvastati n (LIPITOR) 80 MG tablet 07-21 09:17: 25 Yes 80mg QD Take 80 mg by mouth daily. [facility] aspirin 81 mg chewable tablet 07-21 09:17: 25 Yes 81mg QD Chew [address] [facility] cholecalcif alex, vitamin D3, 50,000 unit capsule 07-21 09:17: 25 Yes 2000U Q7D Take 2,000 Units by mouth once a week. [facility] ticagrelor (BRILINTA) 90 mg tablet 07-21 09:17: 25 Yes 90mg Q.5D Take 90 mg by mouth 2 (two) times a day. [facility] isosorbide dinitrate (ISORDIL) 10 MG tablet 07-21 09:17: 25 Yes 10mg Q.5D Take 10 mg by mouth 2 (two) times a day. [facility] atorvastati n (LIPITOR) 80 MG tablet 07-21 09:17: 25 Yes 80mg QD Take 80 mg by mouth daily. [facility] Plan of Care Planned Activity Planned Date Details Comments Source Future Scheduled Test 2023-02-13 00:05:37 COVID-19 VACCINE (#1) [code = COVID-19 VACCINE (#1)] [facility] Future Scheduled Test 2023-02-13 00:05:37 COLONOSCOPY SCREENING [code = COLONOSCOPY SCREENING] [facility] Future Scheduled Test 2023-02-13 00:05:37 SHINGLES VACCINES (1 of 2) [code = SHINGLES VACCINES (1 of 2)] [facility] Future Scheduled Test 2023-02-13 00:05:37 INFLUENZA VACCINE [code = INFLUENZA VACCINE] [facility] Future Scheduled Test 2023-02-13 00:05:37 COVID-19 VACCINE (#1) [code = COVID-19 VACCINE (#1)] [facility] Future Scheduled Test 2023-02-13 00:05:37 COLONOSCOPY SCREENING [code = COLONOSCOPY SCREENING] [facility] Scheduled Test 2023-02-13 00:05:37 SHINGLES VACCINES (1 of 2) [code = SHINGLES VACCINES (1 of 2)] [facility] Scheduled Test 2023-02-13 00:05:37 INFLUENZA VACCINE [code = INFLUENZA VACCINE] [facility] Scheduled Test 2022-07-17 19:22:34 HEPATITIS B VACCINES (1 of 3 - 3-dose series) [code = HEPATITIS B VACCINES (1 of 3 - 3-dose series)] [facility] Scheduled Test 2022-07-17 19:22:34 COVID-19 VACCINE (#1) [code = COVID-19 VACCINE (#1)] [facility] Scheduled Test 2022-07-17 19:22:34 Pneumococcal Vaccine: Pediatrics (0 to 5 Years) and At-Risk Patients (6 to 64 Years) (1 - PCV) [code = Pneumococcal Vaccine: Pediatrics (0 to 5 Years) and At-Risk Patients (6 to 64 Years) (1 - PCV)] [facility] Scheduled Test 2022-07-17 19:22:34 Hepatitis C screening (procedure) [code = 345907556] [facility] Scheduled Test 2022-07-17 19:22:34 COLONOSCOPY SCREENING [code = COLONOSCOPY SCREENING] [facility] Scheduled Test 2022-07-17 19:22:34 SHINGLES VACCINES (1 of 2) [code = SHINGLES VACCINES (1 of 2)] [facility] Future Scheduled Test 2022-07-17 19:22:34 INFLUENZA VACCINE [code = INFLUENZA VACCINE] [facility] Scheduled Test 2022-07-10 07:11:42 HEPATITIS B VACCINES (1 of 3 - 3-dose series) [code = HEPATITIS B VACCINES (1 of 3 - 3-dose series)] [facility] Scheduled Test 2022-07-10 07:11:42 COVID-19 VACCINE (#1) [code = COVID-19 VACCINE (#1)] [facility] Scheduled Test 2022-07-10 07:11:42 Pneumococcal Vaccine: Pediatrics (0 to 5 Years) and At-Risk Patients (6 to 64 Years) (1 - PCV) [code = Pneumococcal Vaccine: Pediatrics (0 to 5 Years) and At-Risk Patients (6 to 64 Years) (1 - PCV)] [facility] Future Scheduled Test 2022-07-10 07:11:42 Hepatitis C screening (procedure) [code = 226517946] [facility] Future Scheduled Test 2022-07-10 07:11:42 COLONOSCOPY SCREENING [code = COLONOSCOPY SCREENING] [facility] Future Scheduled Test 2022-07-10 07:11:42 SHINGLES VACCINES (1 of 2) [code = SHINGLES VACCINES (1 of 2)] [facility] Future Scheduled Test 2022-07-10 07:11:42 INFLUENZA VACCINE [code = INFLUENZA VACCINE] [facility] Future Scheduled Test 2021-11-26 21:19:09 COVID-19 VACCINE (1) [code = COVID-19 VACCINE (1)] [facility] Future Scheduled Test 2021-11-26 21:19:09 Hepatitis C screening (procedure) [code = 351514434] [facility] Future Scheduled Test 2021-11-26 21:19:09 COLONOSCOPY SCREENING [code = COLONOSCOPY SCREENING] [facility] Future Scheduled Test 2021-11-26 21:19:09 SHINGLES VACCINES (#1) [code = SHINGLES VACCINES (#1)] [facility] Future Scheduled Test 2021-11-26 21:19:09 INFLUENZA VACCINE [code = INFLUENZA VACCINE] [facility] Encounters Start Date/Time End Date/Time Encounter Type Admission Type Attending Clinicians Care Facility Care Department Encounter ID Source 2021-03-29 12:50:12 2021-03-29 12:50:12 Inpatient HCAPM HCAPM [id number] [facility] 2021-01-03 18:39:00 2021-02-07 01:34:09 Inpatient [facility] ABDOUL [id number] [facility] 2020-12-24 03:25:00 2020-12-24 15:18:17 Inpatient [facility] ABDOUL [id number] [facility] 2020-08-27 10:17:00 2020-08-31 08:35:13 Inpatient [facility] A[facility]OUL [id number] [facility] 2020-08-27 13:43:00 2020-08-27 13:43:00 Outpatient Kyung Fishman HCAMN MLAB [id number] [facility] 2020-04-30 17:22:00 2020-05-03 02:33:56 Inpatient [facility]AC[facility] ABDOUL [id number] [facility] 2020-04-29 22:04:00 2020-05-01 09:36:57 Inpatient HCAPM ABDOUL [id number] [facility] Results Test Description Test Time Test Comments Results Resul t Comments Source - CT PELVIS W/O CONTRAST 2021-03-29 13:21:00 [facility] 1960 Sex: M Name: DUSTY FRANCOIS [facility] : 1960 Age/S: 60 / M [id number] Unit #: [id number] Loc: [place] [address] Phys: Cynthia Marroquin MD Acct: [id number] Dis Date: Status: [employer] PHONE #: [phone] Exam Date: 03/29/2021 1257 FAX #: Reason: L hip/inguinal pain EXAMS: CPT: [id number] CT PELVIS W/O CONTRAST [address] CT pelvis without contrast History: L hip/inguinal pain Comparison: July 16, 2019 Location: [facility] CT scan of the pelvis was performed without intravenous contrast. One or more of the following radiation dose reduction techniques was used: automated exposure control, adjustment of mA and/or KV according to patient size, and/or utilization of iterative reconstruction technique. Quality of Exam: Acceptable. No acute fracture and no dislocation is identified. No concerning bony lesion is identified. There appears to be a left inguinal hernia, containing omental fat only. The soft tissues are unremarkable. No free fluid is identified. No abnormal localized fluid collection is identified. IMPRESSION: There appears to be a left inguinal hernia, containing omental fat only. at 1321 Reported and signed by: Geoff Fox M.D. PAGE 1 Signed Report (CONTINUED) Name: DUSTY FRANCOIS [facility] : 1960 Age/S: 60 / M [address] Unit #: [id number] Loc: [place] [address] Phys: Cynthia Marroquin MD Acct: [id number] Dis Date: Status: REG ER PHONE #: [phone] Exam Date: 03/29/2021 1257 FAX #: Reason: L hip/inguinal pain EXAMS: CPT: [id number] CT PELVIS W/O CONTRAST 12057 <Continued> CC: Shawanda Wild DO; Cynthia Marroquin MD Technologist:Scarlett Emanuel, RT(R) CTDI: DLP: Trnscb Date/Time: 03/29/2021 (1321) t.SDR.PMT Orig Print D/T: S: 03/29/2021 (6560) PAGE 2 Signed Report - XR HIP W/PEL UNI 2+V LT 2021-03-29 12:31:00 [facility] 1960 Sex: M Name: DUSTY FRANCOIS [place] : 1960 Age/S: 60 / M [id number] [facility] Unit #: [id number] Loc: [place] [address] Phys: Cynthia Marroquin MD Acct: [id number] Dis Date: Status: PRE ER PHONE #: [phone] Exam Date: 03/29/2021 1216 FAX #: Reason: L hip pain EXAMS: CPT: [id number] XR HIP W/PEL UNI 2+[place] [address] Fluoro Time: DAP (Gy m2): Air Kerma (mGy): Left hip History: L hip pain Comparison: None at this time Location: 5 Two views of the left hip are submitted. No acute fractures and no dislocations are identified. There are degenerative changes of the hip joint. IMPRESSION: There are degenerative changes of the hip joint. at 1231 Reported and signed by: Geoff Fox M.D. CC: Shaawnda Wild DO; Cynthia Marroquin MD PAGE 1 Signed Report Name: DUSTY FRANCOIS [place] : 1960 Age/S: 60 / M [address] [place] [address] Unit #: [id number] Loc: [place] [address] Phys: Cynthia Marroquin MD Acct: [id number] Dis Date: Status: PRE ER PHONE #: [phone] Exam Date: 03/29/2021 1216 FAX #: Reason: L hip pain EXAMS: CPT: [id number] XR HIP W/PEL UNI 2+[place] [address] Fluoro Time: DAP (Gy m2): Air Kerma (mGy): <Continued> Technologist: RT Jh(R) Trnscb Date/Time: 03/29/2021 (1231) [email or web address] Orig Print D/T: S: 03/29/2021 (9084) PAGE 2 Signed Report [id number] 13:50:00* Test Item Value Reference Range Interpretation Comme nts GLUBED (test code = GLUBED) 80 MG/DL 70-110 N Performed by cer tified tar heater operator at [facility] BASIC METABOLIC [id number] 08:25:00* Test Item Value Reference Range Interpretation Comme nts SODIUM (test code = NA) 143 mEq/L 134-147 N POTASSIUM (test code = K) 4.3 mEq/L 3.4-5.0 N CHLORIDE (test code = CL) 114 mEq/L 100-108 H CARBON DIOXIDE (test code = CO2) 23 mEq/l 21-33 N ANION GAP (test code = GAP) 11 0-20 N GLUCOSE (test code = GLU) 74 mg/dL 70-110 BLOOD UREA NITROGEN (test code = BUN) 47 mg/dL 7-18 H GLOMERULAR FILTRATION RATE (test code = GFR) 33.8 90-95 L Units of measure = ml/min/1.73 m2 CREATININE (test code = CREAT) 2.4 mg/dL 0.6-1.3 H CALCIUM (test code = CA) 9.2 mg/dL 8.0-10.5 N [id number] 08:25:00* Test Item Value Reference Range Interpretation Comme nts PHOSPHOROUS (test code = PHOS) 4.2 MG/DL 2.5-4.9 N CREATINE KINASE (CK)2021-01-06 08:25:00* Test Item Value Reference Range Interpretation Comme nts CREATINE KINASE (CK) (test c ode = CK) 580 Units/L 35-232 H [id number] 08:25:00* Test Item Value Reference Range Interpretation Comme nts MAGNESIUM (test code = MAG) 2.39 mg/dL 1.80-2.40 N CBC W/AUTO [id number] 08:17:00* Test Item Value Reference Range Interpretation Comme nts WHITE BLOOD CELL (test code = WBC) 6.7 x10 3/uL 4.5-11.0 N RED BLOOD CELL (test code = RBC) 3.14 x10 6/uL 4.00-5.60 L HEMOGLOBIN (test code = HGB) 8.4 g/dL 12.5-16.9 L HEMATOCRIT (test code = HCT) 27.2 % 37.5-50.7 L MEAN CELL VOLUME (test code = MCV) 86.6 fL 81.0-99.0 N MEAN CELL HGB (test code = MCH) 26.8 pg 27.0-33.0 L MEAN CELL HGB CONCETRATION (test code = MCHC) 30.9 g/dL 33.0-37.0 L RED CELL DISTRIBUTION WIDTH CV (test code = RDW) 14.5 % 11.5-14.5 N RED CELL DISTRIBUTION WIDTH SD (test code = RDW-SD) 46.0 fL 37.0-54.0 N PLATELET COUNT (test code = PLT) 339 x10 3/uL 150-400 N MEAN PLATELET VOLUME (test c ode = MPV) 9.9 fL 7.0-9.0 H NEUTROPHIL % (test code = NT%) 62.4 % 56.0-77.0 N IMMATURE GRANULOCYTE % (test code = IG%) 0.7 % 0.0-2.0 N LYMPHOCYTE % (test code = LY%) 24.3 % 14.0-32.0 N MONOCYTE % (test code = MO%) 9.8 % 4.8-9.0 H EOSINOPHIL % (test code = EO%) 2.7 % 0.3-3.7 N BASOPHIL % (test code = BA%) 0.1 % 0.0-2.0 N NUCLEATED RBC % (test code = NRBC%) 0.0 % 0-0 N NEUTROPHIL # (test code = NT#) 4.20 x10 3/uL 2.0-7.6 N IMMATURE GRANULOCYTE # (test code = IG#) 0.05 x10 3/uL 0.00-0.03 H LYMPHOCYTE # (test code = LY#) 1.64 x10 3/uL 1.0-3.8 N MONOCYTE # (test code = MO#) 0.66 x10 3/uL 0.1-0.8 N EOSINOPHIL # (test code = EO#) 0.18 x10 3/uL 0.0-0.2 N BASOPHIL # (test code = BA#) 0.01 x10 3/uL 0.0-0.2 N NUCLEATED RBC # (test code = NRBC#) 0.00 x10 3/uL 0.0-0.1 N MANUAL DIFF REQUIRED (test c ode = MDIFF) NO [id number] 23:59:00* Test Item Value Reference Range Interpretation Comme nts GLUBED (test code = GLUBED) 103 MG/DL 70-110 N Performed by cer tified tar heater operator at [facility] [id number] 18:32:00* Test Item Value Reference Range Interpretation Comme nts GLUBED (test code = GLUBED) 61 MG/DL 70-110 L Performed by cer tified tar heater operator at [facility] [id number] 18:32:00* Test Item Value Reference Range Interpretation Comme nts GLUBED (test code = GLUBED) 139 MG/DL 70-110 H Performed by cer tified tar heater operator at [facility] [id number] 12:32:00* Test Item Value Reference Range Interpretation Comme nts GLUBED (test code = GLUBED) 174 MG/DL 70-110 H Performed by cer tified tar heater operator at [facility] CBC W/AUTO [id number] 08:12:00* Test Item Value Reference Range Interpretation Comme nts WHITE BLOOD CELL (test code = WBC) 7.1 x10 3/uL 4.5-11.0 N RED BLOOD CELL (test code = RBC) 3.08 x10 6/uL 4.00-5.60 L HEMOGLOBIN (test code = HGB) 8.3 g/dL 12.5-16.9 L HEMATOCRIT (test code = HCT) 26.5 % 37.5-50.7 L MEAN CELL VOLUME (test code = MCV) 86.0 fL 81.0-99.0 N MEAN CELL HGB (test code = MCH) 26.9 pg 27.0-33.0 L MEAN CELL HGB CONCETRATION (test code = MCHC) 31.3 g/dL 33.0-37.0 L RED CELL DISTRIBUTION WIDTH CV (test code = RDW) 14.6 % 11.5-14.5 H RED CELL DISTRIBUTION WIDTH SD (test code = RDW-SD) 45.7 fL 37.0-54.0 N PLATELET COUNT (test code = PLT) 322 x10 3/uL 150-400 N MEAN PLATELET VOLUME (test c ode = MPV) 10.3 fL 7.0-9.0 H NEUTROPHIL % (test code = NT%) 59.8 % 56.0-77.0 N IMMATURE GRANULOCYTE % (test code = IG%) 0.9 % 0.0-2.0 N LYMPHOCYTE % (test code = LY%) 29.2 % 14.0-32.0 N MONOCYTE % (test code = MO%) 9.4 % 4.8-9.0 H EOSINOPHIL % (test code = EO%) 0.6 % 0.3-3.7 N BASOPHIL % (test code = BA%) 0.1 % 0.0-2.0 N NUCLEATED RBC % (test code = NRBC%) 0.0 % 0-0 N NEUTROPHIL # (test code = NT#) 4.22 x10 3/uL 2.0-7.6 N IMMATURE GRANULOCYTE # (test code = IG#) 0.06 x10 3/uL 0.00-0.03 H LYMPHOCYTE # (test code = LY#) 2.06 x10 3/uL 1.0-3.8 N MONOCYTE # (test code = MO#) 0.66 x10 3/uL 0.1-0.8 N EOSINOPHIL # (test code = EO#) 0.04 x10 3/uL 0.0-0.2 N BASOPHIL # (test code = BA#) 0.01 x10 3/uL 0.0-0.2 N NUCLEATED RBC # (test code = NRBC#) 0.00 x10 3/uL 0.0-0.1 N MANUAL DIFF REQUIRED (test c ode = MDIFF) NO BASIC METABOLIC [id number] 07:36:00* Test Item Value Reference Range Interpretation Comme nts SODIUM (test code = NA) 143 mEq/L 134-147 N POTASSIUM (test code = K) 4.8 mEq/L 3.4-5.0 N CHLORIDE (test code = CL) 114 mEq/L 100-108 H CARBON DIOXIDE (test code = CO2) 23 mEq/l 21-33 N ANION GAP (test code = GAP) 10 0-20 N GLUCOSE (test code = GLU) 127 mg/dL 70-110 H BLOOD UREA NITROGEN (test code = BUN) 52 mg/dL 7-18 H GLOMERULAR FILTRATION RATE (test code = GFR) 29.5 90-95 L Units of measure = ml/min/1.73 m2 CREATININE (test code = CREAT) 2.7 mg/dL 0.6-1.3 H CALCIUM (test code = CA) 8.5 mg/dL 8.0-10.5 N [id number] 07:36:00* Test Item Value Reference Range Interpretation Comme nts PHOSPHOROUS (test code = PHOS) 3.6 MG/DL 2.5-4.9 N [id number] 07:36:00* Test Item Value Reference Range Interpretation Comme nts MAGNESIUM (test code = MAG) 2.48 mg/dL 1.80-2.40 H CBC W/AUTO [id number] 07:30:00* Test Item Value Reference Range Interpretation Comme nts WHITE BLOOD CELL (test code = WBC) x10 3/uL 4.5-11.0 RED BLOOD CELL (test code = RBC) x10 6/uL 4.00-5.60 HEMOGLOBIN (test code = HGB) g/dL 12.5-16.9 HEMATOCRIT (test code = HCT) % 37.5-50.7 MEAN CELL VOLUME (test code = MCV) fL 81.0-99.0 MEAN CELL HGB (test code = MCH) pg 27.0-33.0 MEAN CELL HGB CONCETRATION ( test code = MCHC) g/dL 33.0-37.0 RED CELL DISTRIBUTION WIDTH CV (test code = RDW) % 11.5-14.5 PLATELET COUNT (test code = PLT) 322 x10 3/uL 150-400 N NEUTROPHIL % (test code = NT%) % 56.0-77.0 LYMPHOCYTE % (test code = LY%) % 14.0-32.0 NEUTROPHIL # (test code = NT#) x10 3/uL 2.0-7.6 LYMPHOCYTE # (test code = LY#) x10 3/uL 1.0-3.8 MANUAL DIFF REQUIRED (test c ode = MDIFF) URINALYSIS [id number] 23:07:00* Test Item Value Reference Range Interpretation Comme nts UA COLOR (test code = COLU) YELLOW YEL/STRAW UA APPEARANCE (test code = APPU) CLEAR CLEAR UA GLUCOSE DIPSTICK (test co de = DGLUU) 1+ NEGATIVE A UA BILIRUBIN DIPSTICK (test code = BILU) NEGATIVE NEGATIVE UA KETONE DIPSTICK (test cod e = KETU) NEGATIVE NEGATIVE UA SPECIFIC GRAVITY (test co de = SGU) 1.013 1.005-1.030 N UA BLOOD DIPSTICK (test code = ESMER) 2+ NEGATIVE A UA PH DIPSTICK (test code = ALICIA) 5.0 5.0-7.0 N UA PROTEIN DIPSTICK (test co de = PROU) 3+ NEGATIVE A UA UROBILINIOGEN DIPSTICK (test code = URO) 0.2 mg/dL 0.2-1.0 UA NITRITE DIPSTICK (test co de = BROOKLYNN) NEGATIVE NEGATIVE UA LEUKOCYTE ESTERASE DIPSTI CK (test code = LEUU) NEGATIVE NEGATIVE UA RBC (test code = RBCU) 0-3 RBC/HPF 0-3 UA WBC NO REFLEX (test code = WBCUCL) 0-3 WBC/HPF 0-3 UA BACTERIA (test code = BACU) TRACE /HPF NONE SEEN UA SQUAMOUS CELLS (test code = SQU) NONE SEEN /HPF NONE SEEN UA HYALINE CAST (test code = HYALU) 6-10 /LPF NONE SEEN UA MUCUS (test code = MUCU) TRACE /LPF NONE SEEN UR PROTEIN [id number] 23:07:00* Test Item Value Reference Range Interpretation Comme nts UR PROTEIN RANDOM (test code = PROTU) 319 mg/dL Note: Altagracia nge in UNITS of MEASUREMENT. The Reference Range and Method Performance specificationshave not been established for this fluid. The test resultshould be correlated into the clinical context forinterpretation. UR CREATININE [id number] 23:07:00* Test Item Value Reference Range Interpretation Comme nts UR CREATININE RANDOM (test code = CREATU) 126.3 mg/dL The Reference Ra nge and Method Performance specificationshave not been established for this fluid. The test resultshould be correlated into the clinical context forinterpretation. URINALYSIS [id number] 23:01:00* Test Item Value Reference Range Interpretation Comme nts UA COLOR (test code = COLU) YEL/STRAW UA APPEARANCE (test code = APPU) CLEAR UA GLUCOSE DIPSTICK (test co de = DGLUU) NEGATIVE UA BILIRUBIN DIPSTICK (test code = BILU) NEGATIVE UA KETONE DIPSTICK (test code = KETU) NEGATIVE UA SPECIFIC GRAVITY (test code = SGU) 1.005-1.0 30 UA BLOOD DIPSTICK (test code = ESMER) NEGATIVE UA PH DIPSTICK (test code = ALICIA) 5.0-7.0 UA PROTEIN DIPSTICK (test co de = PROU) NEGATIVE UA UROBILINIOGEN DIPSTICK (t est code = URO) mg/dL 0.2-1.0 UA NITRITE DIPSTICK (test co de = BROOKLYNN) NEGATIVE UA LEUKOCYTE ESTERASE DIPSTI CK (test code = LEUU) NEGATIVE UA RBC (test code = RBCU) RBC/HPF 0-3 UR PROTEIN [id number] 23:01:00* Test Item Value Reference Range Interpretation Comme nts UR PROTEIN RANDOM (test code = PROTU) 319 mg/dL Note: Altagracia nge in UNITS of MEASUREMENT. The Reference Range and Method Performance specificationshave not been established for this fluid. The test resultshould be correlated into the clinical context forinterpretation. UR CREATININE [id number] 23:01:00* Test Item Value Reference Range Interpretation Comme [facility] UR CREATININE RANDOM (test code = CREATU) 126.3 mg/dL The Reference Ra nge and Method Performance specificationshave not been established for this fluid. The test resultshould be correlated into the clinical context forinterpretation. [id number] 20:32:00* Test Item Value Reference Range Interpretation Comme nts GLUBED (test code = GLUBED) 163 MG/DL 70-110 H Performed by cer tified tar heater operator at [facility] [id number] 18:48:00* Test Item Value Reference Range Interpretation Comme nts GLUBED (test code = GLUBED) 164 MG/DL 70-110 H Performed by [facility] tified tar heater operator at [facility] - US RETRO [id number] 14:33:00 [facility] EDCHRISTY : 1960 Sex: M Name: DUSTY FRANCOIS [facility] : 1960 Age/S: 60 / M [address] [place] [address] Bl Unit #: [id number] Loc: [place] [address] Phys: Gideon Teran MD Acct: [id number] Dis Date: Status: ADM IN PHONE #: [phone] Exam Date: 01/04/2021 1429 FAX #: [phone] Reason: CKD/BRENDA EXAMS: CPT CODE: [id number] RETRO LTD 72592 PROCEDURE: RENAL ULTRASOUND INDICATION: Chronic kidneydisease COMPARISON: None. TECHNIQUE: Sonographic evaluation of the kidneys and urinary bladder was performed with color and spectral doppler. FINDINGS: IVC is obscured by bowel gas. Aorta is obscuredby bowel gas. Aortic bifurcation is not visualized. KIDNEYS: The right kidney measures 11.4 cm in length. Normal contour and parenchymal echogenicity. There is no hydronephrosis, nephrolithiasis, mass lesion or perinephric collection. The left kidney measures 10.8 cm in length. Normal contour and parenchymal echogenicity. There is no hydronephrosis, nephrolithiasis, mass lesion or perinephric collection. BLADDER: Normal. IMPRESSION: No hydronephrosis or renal stones. SL: [id number] Electro nically Signed by Margareth Caballero on 01/04/2021 at 1433 Reported and signed by: Gabino Caballero M.D. CC: Gideon Teran MD; Kyung Bedoya MD; Shawanda Wild DO Technologist: Katarina Lawrence RDMS() Trnscb Date/Time: 01/04/2021 (1433) [id number] Orig Print D/T: S: 01/04/2021 (1436) Probe: PAGE 1 Signed ReportBASIC METABOLIC [id number] 13:46:00* Test Item Value Reference Range Interpretation Comme nts SODIUM (test code = NA) 144 mEq/L 134-147 N POTASSIUM (test code = K) 4.5 mEq/L 3.4-5.0 N CHLORIDE (test code = CL) 114 mEq/L 100-108 H CARBON DIOXIDE (test code = CO2) 19 mEq/l 21-33 L ANION GAP (test code = GAP) 15 0-20 N GLUCOSE (test code = GLU) 175 mg/dL 70-110 H BLOOD UREA NITROGEN (test code = BUN) 60 mg/dL 7-18 H GLOMERULAR FILTRATION RATE (test code = GFR) 27.2 90-95 L Units of measure = ml/min/1.73 m2 CREATININE (test code = CREAT) 2.9 mg/dL 0.6-1.3 H CALCIUM (test code = CA) 8.6 mg/dL 8.0-10.5 N [id number] 13:46:00* Test Item Value Reference Range Interpretation Comme nts TROPONIN-I (test code = TROPI) 0.076 ng/mL 0.000-0.045 H Negative: <= 0.0 45 Positive: >= 0.046 Correlation with serial results, other cardiac markers andclinical findings is necessary to determine the clinicalsignificance of this result. Results using different methodologies should not be comparedto one another as quantitative results may vary by method. [id number] 12:17:00* Test Item Value Reference Range Interpretation Comme nts GLUBED (test code = GLUBED) 162 MG/DL 70-110 H Performed by cer tified tar heater operator at [facility] [id number] 09:54:00* Test Item Value Reference Range Interpretation Comme nts GLUBED (test code = GLUBED) 260 MG/DL 70-110 H Performed by cer tified tar heater operator at [facility] HGB [id number] 07:58:00* Test Item Value Reference Range Interpretation Comme nts HEMOGLOBIN (test code = HGB) 8.2 g/dL 12.5-16.9 L HEMATOCRIT (test code = HCT) 26.9 % 37.5-50.7 L [id number] 05:44:00* Test Item Value Reference Range Interpretation Comme nts GLUBED (test code = GLUBED) 261 MG/DL 70-110 H Performed by cer tified tar heater operator at [facility] [id number] 02:09:00* Test Item Value Reference Range Interpretation Comme nts [id number] (test code = [id number]) POSITIVE Negative A Note: this entr y is for TRACKING purposes only and the testwas done at an outside facility. See specimen comments fororiginal laboratory and specimen date. [facility]Patient's account number from transferring facility: [id number] patient's current lab results are: [id number] 01:13:00* Test Item Value Reference Range Interpretation Comme [facility] TROPONIN-I (test code = TROPI) 0.053 ng/mL 0.000-0.045 H Negative: <= 0.0 45 Positive: >= 0.046 Correlation with serial results, other cardiac markers andclinical findings is necessary to determine the clinicalsignificance of this result. Results using different methodologies should not be comparedto one another as quantitative results may vary by method. HGB [id number] 01:07:00* Test Item Value Reference Range Interpretation Comme nts HEMOGLOBIN (test code = HGB) 9.6 g/dL 12.5-16.9 L HEMATOCRIT (test code = HCT) 30.8 % 37.5-50.7 L [id number] 00:54:00* Test Item Value Reference Range Interpretation Comme nts GLUBED (test code = GLUBED) 275 MG/DL 70-110 H Performed by cer tified tar heater operator at [facility] LIPOPROTEIN [id number] 21:39:00* Test Item Value Reference Range Interpretation Comme [facility] LIPOPROTEIN LDL (test code = LDL) 114.8 mg/dL 0-100 H <100 [id number] 0-129 NEAR OPTIMAL/ABOVE [id number] HIGH>PM=409 VERY HIGH*Guidelines provided by the National Cholesterol EducationProgram Adult Treatment Panel III - XR CHEST 1 [id number] 21:37:00 [facility] : 1960 Sex: M FAX: Shawanda Smith [phone] [place]: St: REG FAX: Viktor Greene MD [phone] Name: DUSTY FRANCOIS [facility] : 1960 Age/S: 60/M [address] [place] [address] Blvd Unit #: [id number] Loc: [place] [address] Phys: Viktor Ying MD Acct: [id number] Dis Date: Status: REG ER PHONE #: [phone] Exam Date: 01/03/20212117 FAX #: [phone] Reason: weakness vomiting EXAMS:CPT CODE: [id number] XR CHEST 1 V 98593 Portable single view AP chest INDICATION: Weakness and vomiting. Covid positive. Comparison: 12/24/2020 chest x-ray FINDINGS: The cardiomediastinal silhouette is normal in size. Focal eventration of the right hemidiaphragm once again seen. Lungs are clear. Costop hrenic angles are sharp. No suspicious osseous abnormality is seen. IMPRESSION: No evidence for acute cardiopulmonary disease. SL: ORLANDOH at 9432 Reported and signed by: Mateo Tian M.D. CC: Shawanda Wild DO; Viktor Ying MD Technologist: Karla Adam, RT(R); Jennifer Sergio, RT(R) Trnscrd Date/Time/By: 01/03/2021 (2136) : By: AlenaSG9 Orig Print D/T: S: 01/03/2021 (2140) PAGE 1 Signed ReportCBC W/AUTO [id number] 21:26:00* Test Item Value Reference Range Interpretation Comme nts WHITE BLOOD CELL (test code = WBC) 6.9 x10 3/uL 4.5-11.0 N RED BLOOD CELL (test code = RBC) 3.73 x10 6/uL 4.00-5.60 L HEMOGLOBIN (test code = HGB) 9.9 g/dL 12.5-16.9 L HEMATOCRIT (test code = HCT) 31.5 % 37.5-50.7 L MEAN CELL VOLUME (test code = MCV) 84.5 fL 81.0-99.0 N MEAN CELL HGB (test code = MCH) 26.5 pg 27.0-33.0 L MEAN CELL HGB CONCETRATION (test code = MCHC) 31.4 g/dL 33.0-37.0 L RED CELL DISTRIBUTION WIDTH CV (test code = RDW) 14.4 % 11.5-14.5 N RED CELL DISTRIBUTION WIDTH SD (test code = RDW-SD) 44.1 fL 37.0-54.0 N PLATELET COUNT (test code = PLT) 372 x10 3/uL 150-400 N MEAN PLATELET VOLUME (test code = MPV) 10.4 fL 7.0-9.0 H NEUTROPHIL % (test code = NT%) 73.9 % 56.0-77.0 N IMMATURE GRANULOCYTE % (test code = IG%) 1.3 % 0.0-2.0 N LYMPHOCYTE % (test code = LY%) 16.7 % 14.0-32.0 N MONOCYTE % (test code = MO%) 8.0 % 4.8-9.0 N EOSINOPHIL % (test code = EO%) 0.0 % 0.3-3.7 L BASOPHIL % (test code = BA%) 0.1 % 0.0-2.0 N NUCLEATED RBC % (test code = NRBC%) 0.0 % 0-0 N NEUTROPHIL # (test code = NT#) 5.08 x10 3/uL 2.0-7.6 N IMMATURE GRANULOCYTE # (test code = IG#) 0.09 x10 3/uL 0.00-0.03 H LYMPHOCYTE # (test code = LY#) 1.15 x10 3/uL 1.0-3.8 N MONOCYTE # (test code = MO#) 0.55 x10 3/uL 0.1-0.8 N EOSINOPHIL # (test code = EO#) 0.00 x10 3/uL 0.0-0.2 N BASOPHIL # (test code = BA#) 0.01 x10 3/uL 0.0-0.2 N NUCLEATED RBC # (test code = NRBC#) 0.00 x10 3/uL 0.0-0.1 N MANUAL DIFF REQUIRED (test code = MDIFF) NO SLIDE REVIEW ED, CONSISTENT WITH AUTO DIFF. COMPREHENSIVE METABOLIC [id number] 21:19:00* Test Item Value Reference Range Interpretation Comme nts SODIUM (test code = NA) 139 mEq/L 134-147 N POTASSIUM (test code = K) 4.9 mEq/L 3.4-5.0 N CHLORIDE (test code = CL) 106 mEq/L 100-108 N CARBON DIOXIDE (test code = CO2) 23 mEq/l 21-33 N ANION GAP (test code = GAP) 15 0-20 N GLUCOSE (test code = GLU) 371 mg/dL 70-110 H BLOOD UREA NITROGEN (test code = BUN) 64 mg/dL 7-18 H GLOMERULAR FILTRATION RATE (test code = GFR) 26.1 90-95 L Units of measure = ml/min/1.73 m2 CREATININE (test code = CREAT) 3.0 mg/dL 0.6-1.3 H TOTAL PROTEIN (test code = PROT) 6.0 g/dL 6.4-8.2 L ALBUMIN (test code = ALB) 3.00 g/dL 3.4-5.0 L CALCIUM (test code = CA) 9.3 mg/dL 8.0-10.5 N BILIRUBIN TOTAL (test code = BILT) 0.40 mg/dL 0.0-1.0 N SGOT/AST (test code = AST) 54 IUnit/L 15-37 H SGPT/ALT (test code = ALT) 25 IUnit/L 30-65 L ALKALINE PHOSPHATASE TOTAL (test code = ALKP) 70 IUnit/L 20-125 N CREATINE KINASE (CK)2021-01-03 21:19:00* Test Item Value Reference Range Interpretation Comme nts CREATINE KINASE (CK) (test code = CK) 1697 Units/L 35-232 HH Critical result called to Soren VILLALTALAB.KT1 at 211701/03/21Nurse read back result and tech confirmed it's correct? YES SERUM [id number] 21:19:00* Test Item Value Reference Range Interpretation Comme nts SERUM IRON (test code = IRON) 123 mcg/dL 35-150 N [id number] 21:19:00* Test Item Value Reference Range Interpretation Comme nts TROPONIN-I (test code = TROPI) 0.094 ng/mL 0.000-0.045 H Negative: <= 0.0 45 Positive: >= 0.046 Correlation with serial results, other cardiac markers andclinical findings is necessary to determine the clinicalsignificance of this result. Results using different methodologies should not be comparedto one another as quantitative results may vary by method. [id number] 21:19:00* Test Item Value Reference Range Interpretation Comme [facility] ALCOHOL (test code = ALC) < 3.0 mg/dL <10 N Ethyl Alcohol Interpretation: 100 mg/dL - Legally Intoxicated 300-400 mg/dL - Severely Intoxicated >400 mg/dL - Potentially LethalThe pharmacological response to blood alcohol levels mayvary from individual to individual. Signs of intoxicationcan be observed at levels of 50-100 mg/dL. Results are for Medical purposes only, and not for Legal orEmployment evaluation purposes. CBC W/AUTO [id number] 20:58:00* Test Item Value Reference Range Interpretation Comme nts WHITE BLOOD CELL (test code = WBC) 6.9 x10 3/uL 4.5-11.0 N RED BLOOD CELL (test code = RBC) 3.73 x10 6/uL 4.00-5.60 L HEMOGLOBIN (test code = HGB) 9.9 g/dL 12.5-16.9 L HEMATOCRIT (test code = HCT) 31.5 % 37.5-50.7 L MEAN CELL VOLUME (test code = MCV) 84.5 fL 81.0-99.0 N MEAN CELL HGB (test code = MCH) 26.5 pg 27.0-33.0 L MEAN CELL HGB CONCETRATION (test code = MCHC) 31.4 g/dL 33.0-37.0 L RED CELL DISTRIBUTION WIDTH CV (test code = RDW) 14.4 % 11.5-14.5 N RED CELL DISTRIBUTION WIDTH SD (test code = RDW-SD) 44.1 fL 37.0-54.0 N PLATELET COUNT (test code = PLT) 372 x10 3/uL 150-400 N MEAN PLATELET VOLUME (test c ode = MPV) 10.4 fL 7.0-9.0 H NEUTROPHIL % (test code = NT%) % 56.0-77.0 LYMPHOCYTE % (test code = LY%) % 14.0-32.0 NEUTROPHIL # (test code = NT#) x10 3/uL 2.0-7.6 LYMPHOCYTE # (test code = LY#) x10 3/uL 1.0-3.8 MANUAL DIFF REQUIRED (test c ode = MDIFF) CBC W/AUTO [id number] 20:55:00* Test Item Value Reference Range Interpretation Comme nts WHITE BLOOD CELL (test code = WBC) x10 3/uL 4.5-11.0 RED BLOOD CELL (test code = RBC) x10 6/uL 4.00-5.60 HEMOGLOBIN (test code = HGB) g/dL 12.5-16.9 HEMATOCRIT (test code = HCT) % 37.5-50.7 MEAN CELL VOLUME (test code = MCV) fL 81.0-99.0 MEAN CELL HGB (test code = MCH) pg 27.0-33.0 MEAN CELL HGB CONCETRATION ( test code = MCHC) g/dL 33.0-37.0 RED CELL DISTRIBUTION WIDTH CV (test code = RDW) % 11.5-14.5 PLATELET COUNT (test code = PLT) 372 x10 3/uL 150-400 N NEUTROPHIL % (test code = NT%) % 56.0-77.0 LYMPHOCYTE % (test code = LY%) % 14.0-32.0 NEUTROPHIL # (test code = NT#) x10 3/uL 2.0-7.6 LYMPHOCYTE # (test code = LY#) x10 3/uL 1.0-3.8 MANUAL DIFF REQUIRED (test c ode = MDIFF) - XR CHEST 1 [id number] 04:06:00 [facility] : 1960 Sex: M FAX: Janny KaplankShawanda Prakash [phone] [place]: St: REG FAX: Penny Shay [phone] Name: RISHI FRANCOIS [facility] : 1960 Age/S: 60/M [address] [place] [address] Unit #: [id number] Loc: [place] [address] Phys: Penny Shay Acct: [id number] Dis Date: Status: REG ER PHONE#: [phone] Exam Date: 12/24/2020 034 FAX #: [phone] Reason: FEVER COUGH EXAMS: CPT CODE: [id number] XR CHEST 1 V [id number] EXAM: CR, XR chest one view: 12/24/2020, 0343 hours HISTORY: FEVER COUGH TECHNIQUE: 1 view of the chest. COMPARISON: 08/27/2020 FINDINGS: Trachea is midline. Heart is normal in size. Pulmonary vascularity is unremarkable. Stable eventration of the right hemidiaphragm. There is no airspace consolidation, pleural effusion or pneumothorax. Osseous structures are stable.IMPRESSION: 1. No acute cardiopulmonary disease seen. SL: [JSYED-H] at 0406 Reported and signed by: Yakov Lemos M.D. CC: Shawanda Wild DO; Penny Shay Technologist: RT Mo(Kinga) Trnscrd Date/Time/By: 12/24/2020 (0406) : By: [email or web address] Orig Print D/T: S: 12/24/2020 (0410) PAGE 1 Signed ReportCoronavirus 2018 nCoV [id number] 03:58:00* Test Item Value Reference Range Interpretation Comme nts Coronavirus 2019 nCoV Bedside (test code = [id number]) POSITIVE Negative A Critical result called to MOODY CORLEY RN/Soren MICHAEL.EE at 0358 12/24/20Nurse read back result and tech confirmed it's correct? YNegative results should be treated as presumptive and, ifinconsistent with clinical signs and symptoms or necessaryfor patient management, should be tested with an alternativemolecular assay. Negative results do not preclude BCZC-WcJ-6mmjuwtqii and should not be used as the sole basis forpatient management decisions. Negative results should beconsidered in the context of a patient's recent exposures,history, presence of clinical signs and symptoms consistentwith COVID-19. [id number] 13:00:00* Test Item Value Reference Range Interpretation Comme nts GLUBED (test code = GLUBED) 206 MG/DL 70-110 H Performed by cer tified tar heater operator at [facility] [id number] 07:51:00* Test Item Value Reference Range Interpretation Comme nts GLUBED (test code = GLUBED) 166 MG/DL 70-110 H Performed by cer tified tar heater operator at [facility] [id number] 00:08:00* Test Item Value Reference Range Interpretation Comme nts GLUBED (test code = GLUBED) 117 MG/DL 70-110 H Performed by cer tified tar heater operator at [facility] [id number] 20:33:00* Test Item Value Reference Range Interpretation Comme nts GLUBED (test code = GLUBED) 140 MG/DL 70-110 H Performed by cer tified tar heater operator at [facility] [id number] 17:31:00* Test Item Value Reference Range Interpretation Comme nts GLUBED (test code = GLUBED) 208 MG/DL 70-110 H Performed by cer tified tar heater operator at [facility] [id number] 12:18:00* Test Item Value Reference Range Interpretation Comme nts GLUBED (test code = GLUBED) 259 MG/DL 70-110 H Performed by cer tified tar heater operator at [facility] [id number] 08:51:00* Test Item Value Reference Range Interpretation Comme nts GLUBED (test code = GLUBED) 146 MG/DL 70-110 H Performed by cer tified tar heater operator at [facility] [id number] 06:28:00* Test Item Value Reference Range Interpretation Comme nts HGBA1C% (test code = HGBA1C%) > 14.0 %A1C 4.8-6.0 H COMPREHENSIVE METABOLIC [id number] 06:05:00* Test Item Value Reference Range Interpretation Comme nts SODIUM (test code = NA) 137 mEq/L 134-147 N POTASSIUM (test code = K) 4.2 mEq/L 3.4-5.0 N CHLORIDE (test code = CL) 109 mEq/L 100-108 H CARBON DIOXIDE (test code = CO2) 23 mEq/L 21-33 N ANION GAP (test code = GAP) 9 0-20 N GLUCOSE (test code = GLU) 220 mg/dL 70-110 H BLOOD UREA NITROGEN (test code = BUN) 55 mg/dL 7-18 H GLOMERULAR FILTRATION RATE (test code = GFR) 30.8 90-95 L Units of measure = ml/min/1.73 m2 CREATININE (test code = CREAT) 2.6 mg/dL 0.6-1.3 H TOTAL PROTEIN (test code = PROT) 5.9 g/dL 6.4-8.2 L ALBUMIN (test code = ALB) 3.00 g/dL 3.4-5.0 L CALCIUM (test code = CA) 8.4 mg/dL 8.0-10.5 N BILIRUBIN TOTAL (test code = BILT) 0.20 mg/dL 0.0-1.0 SGOT/AST (test code = AST) 24 IUnit/L 15-37 N SGPT/ALT (test code = ALT) 19 IUnit/L 30-65 L ALKALINE PHOSPHATASE TOTAL (test code = ALKP) 95 IUnit/L 20-125 N T4 [id number] 06:05:00* Test Item Value Reference Range Interpretation Comme nts T4 FREE (test code = T4F) 1.2 ng/dL 0.77-1.61 N THYROID STIMULATING [id number] 06:05:00* Test Item Value Reference Range Interpretation Comme nts THYROID STIMULATING HORMONE (test code = TSH) 1.03 0.42-5.47 N Result s in chemo-International Units/mL CBC W/AUTO [id number] 05:48:00* Test Item Value Reference Range Interpretation Comme nts WHITE BLOOD CELL (test code = WBC) 6.38 x10 3/uL 4.5-11.0 N RED BLOOD CELL (test code = RBC) 2.96 x10 6/uL 4.00-5.60 L HEMOGLOBIN (test code = HGB) 8.3 g/dL 12.5-16.9 L HEMATOCRIT (test code = HCT) 25.3 % 37.5-50.7 L MEAN CELL VOLUME (test code = MCV) 85.5 fL 81.0-99.0 N MEAN CELL HGB (test code = MCH) 28.0 pg 27.0-33.0 N MEAN CELL HGB CONCETRATION (test code = MCHC) 32.8 g/dL 33.0-37.0 L RED CELL DISTRIBUTION WIDTH CV (test code = RDW) 13.0 % 11.5-14.5 N RED CELL DISTRIBUTION WIDTH SD (test code = RDW-SD) 40.2 fL 37.0-54.0 N PLATELET COUNT (test code = PLT) 235 x10 3/uL 150-400 N MEAN PLATELET VOLUME (test c ode = MPV) 11.0 fL 7.0-9.0 H NEUTROPHIL % (test code = NT%) 59.4 % 56.0-77.0 N IMMATURE GRANULOCYTE % (test code = IG%) 0.5 % 0.0-2.0 N LYMPHOCYTE % (test code = LY%) 28.8 % 14.0-32.0 N MONOCYTE % (test code = MO%) 9.2 % 4.8-9.0 H EOSINOPHIL % (test code = EO%) 1.9 % 0.3-3.7 N BASOPHIL % (test code = BA%) 0.2 % 0.0-2.0 N NUCLEATED RBC % (test code = NRBC%) 0.0 % 0-0 N NEUTROPHIL # (test code = NT#) 3.79 x10 3/uL 2.0-7.6 N IMMATURE GRANULOCYTE # (test code = IG#) 0.03 x10 3/uL 0.00-0.03 N LYMPHOCYTE # (test code = LY#) 1.84 x10 3/uL 1.0-3.8 N MONOCYTE # (test code = MO#) 0.59 x10 3/uL 0.1-0.8 N EOSINOPHIL # (test code = EO#) 0.12 x10 3/uL 0.0-0.2 N BASOPHIL # (test code = BA#) 0.01 x10 3/uL 0.0-0.2 N NUCLEATED RBC # (test code = NRBC#) 0.00 x10 3/uL 0.0-0.1 N MANUAL DIFF REQUIRED (test c ode = MDIFF) NO CBC W/AUTO [id number] 05:42:00* Test Item Value Reference Range Interpretation Comme nts WHITE BLOOD CELL (test code = WBC) x10 3/uL 4.5-11.0 RED BLOOD CELL (test code = RBC) x10 6/uL 4.00-5.60 HEMOGLOBIN (test code = HGB) g/dL 12.5-16.9 HEMATOCRIT (test code = HCT) % 37.5-50.7 MEAN CELL VOLUME (test code = MCV) fL 81.0-99.0 MEAN CELL HGB (test code = MCH) pg 27.0-33.0 MEAN CELL HGB CONCETRATION ( test code = MCHC) g/dL 33.0-37.0 RED CELL DISTRIBUTION WIDTH CV (test code = RDW) % 11.5-14.5 PLATELET COUNT (test code = PLT) 235 x10 3/uL 150-400 N NEUTROPHIL % (test code = NT%) % 56.0-77.0 LYMPHOCYTE % (test code = LY%) % 14.0-32.0 NEUTROPHIL # (test code = NT#) x10 3/uL 2.0-7.6 LYMPHOCYTE # (test code = LY#) x10 3/uL 1.0-3.8 MANUAL DIFF REQUIRED (test c ode = MDIFF) [id number] 05:39:00* Test Item Value Reference Range Interpretation Comme nts GLUBED (test code = GLUBED) 200 MG/DL 70-110 H Performed by cer tified tar heater operator at [facility] [id number] 02:18:00* Test Item Value Reference Range Interpretation Comme nts GLUBED (test code = GLUBED) 265 MG/DL 70-110 H Performed by cer tified tar heater operator at [facility] [id number] 23:51:00* Test Item Value Reference Range Interpretation Comme nts GLUBED (test code = GLUBED) 319 MG/DL 70-110 H Performed by cer tified tar heater operator at [facility] [id number] 21:13:00* Test Item Value Reference Range Interpretation Comme nts GLUBED (test code = GLUBED) 436 MG/DL 70-110 H Performed by cer tified tar heater operator at [facility] [id number] 19:24:00* Test Item Value Reference Range Interpretation Comme nts GLUBED (test code = GLUBED) 482 MG/DL 70-110 H Performed by [place] tified tar heater operator at [facility] BASIC METABOLIC [id number] 18:11:00* Test Item Value Reference Range Interpretation Comme nts SODIUM (test code = NA) 128 mEq/L 134-147 L POTASSIUM (test code = K) 3.9 mEq/L 3.4-5.0 CHLORIDE (test code = CL) 102 mEq/L 100-108 CARBON DIOXIDE (test code = CO2) 20 mEq/L 21-33 L ANION GAP (test code = GAP) 10 0-20 N GLUCOSE (test code = GLU) 638 mg/dL 70-110 HH BLOOD UREA NITROGEN (test code = BUN) 59 mg/dL 7-18 H GLOMERULAR FILTRATION RATE (test code = GFR) 24.3 90-95 L Units of measure = ml/min/1.73 m2 CREATININE (test code = CREAT) 3.2 mg/dL 0.6-1.3 H CALCIUM (test code = CA) 7.8 mg/dL 8.0-10.5 L [id number] 15:22:00* Test Item Value Reference Range Interpretation Comme nts GLUBED (test code = GLUBED) > 600 MG/DL 70-110 H Performed by cer tified tar heater operator at [facility] UR OSMOLALITY [id number] 15:12:00* Test Item Value Reference Range Interpretation Comme nts UR OSMOLALITY RANDOM (test c ode = OSMOU) 467 MOS/KG 300-1000 UR OSMOLALITY [id number] 15:12:00* Test Item Value Reference Range Interpretation Comme nts UR OSMOLALITY RANDOM (test c ode = OSMOU) 467 MOS/KG 300-1000 N LACTIC ACID [id number] 14:48:00* Test Item Value Reference Range Interpretation Comme nts LACTIC ACID REPEAT (test cod e = LACTR) 1.6 mmol/l 0.4-1.9 N UA RFLX MICR CULT IF [id number] 12:53:00* Test Item Value Reference Range Interpretation Comme nts UA COLOR (test code = COLU) COLORLESS YEL/STRAW UA APPEARANCE (test code = APPU) CLEAR CLEAR UA GLUCOSE DIPSTICK (test co de = DGLUU) 3+ NEGATIVE A UA BILIRUBIN DIPSTICK (test code = BILU) NEGATIVE NEGATIVE UA KETONE DIPSTICK (test cod e = KETU) NEGATIVE NEGATIVE UA SPECIFIC GRAVITY (test co de = SGU) 1.018 1.005-1.030 N UA BLOOD DIPSTICK (test code = ESEMR) 1+ NEGATIVE A UA PH DIPSTICK (test code = ALICIA) 5.0 5.0-7.0 N UA PROTEIN DIPSTICK (test co de = PROU) NEGATIVE NEGATIVE UA UROBILINIOGEN DIPSTICK (test code = URO) 0.2 mg/dL 0.2-1.0 UA NITRITE DIPSTICK (test co de = BROOKLYNN) NEGATIVE NEGATIVE UA LEUKOCYTE ESTERASE DIPSTI CK (test code = LEUU) NEGATIVE NEGATIVE UA WBC (test code = WBCU) 0-3 WBC/HPF 0-3 UA RBC (test code = RBCU) 0-3 RBC/HPF 0-3 UA WBC NO REFLEX (test code = WBCUCL) 0-3 WBC/HPF 0-3 UA BACTERIA (test code = BACU) NONE SEEN /HPF NONE SEEN UA SQUAMOUS CELLS (test code = SQU) 0-5 /HPF NONE SEEN Indication for culture: RiskForSepsis-no oth srcSpecimen Description: CLEAN CATCHPROTHROMBIN [id number] 12:02:00* Test Item Value Reference Range Interpretation Comme nts PROTHROMBIN TIME PATIENT (test code = PTP) 10.1 SECONDS 9.3-12.9 N INTERNATIONAL NORMAL RATIO (test code = INR) 0.9 0.8-1.2 N TARGET INR BY INDICATION Indication INR1. Prophylaxis of venous thrombosis 2.0 - 3.0 (orthopedic surgery), Prophylaxis of venous thrombosis (other than high-risk surgery), Treatment of Deep Vein Thrombosis/Pulmonary Embolism, Prevention of systemic embolism - Tissue heart valves, Acute Myocardial Infarction (to prevent systemic embolism), Valvular heart disease, Atrial Fibrillation, Bileaflet mechanical valve in aortic position.2. Mechanical prosthetic valves (high risk), 2.5 - 3.5 Presence of Lupus Anticoagulant or Antiphospholipid Antibodies, Prevention of systemic embolism - Acute Myocardial Infarction (to prevent recurrent infarct). THROMBOPLASTIN TIME [id number] 12:02:00* Test Item Value Reference Range Interpretation Comme nts THROMBOPLASTIN TIME PARTIAL (test code = PTT) 26.6 Seconds 25.0-39.5 N Therapeutic Rang e: 50.4 - 88.3 Seconds Effective 02/28/2019 BASIC METABOLIC [id number] 12:01:00* Test Item Value Reference Range Interpretation Comme nts SODIUM (test code = NA) 118 mEq/L 134-147 LL POTASSIUM (test code = K) 6.5 mEq/L 3.4-5.0 HH CHLORIDE (test code = CL) 89 mEq/L 100-108 L CARBON DIOXIDE (test code = CO2) 22 mEq/L 21-33 N ANION GAP (test code = GAP) 14 0-20 N GLUCOSE (test code = GLU) 877 mg/dL 70-110 HH BLOOD UREA NITROGEN (test code = BUN) 70 mg/dL 7-18 H GLOMERULAR FILTRATION RATE (test code = GFR) 21.9 90-95 L Units of measure = ml/min/1.73 m2 CREATININE (test code = CREAT) 3.5 mg/dL 0.6-1.3 H CALCIUM (test code = CA) 9.0 mg/dL 8.0-10.5 N HEPATIC FUNCTION [id number] 12:01:00* Test Item Value Reference Range Interpretation Comme [facility] TOTAL PROTEIN (test code = PROT) 6.6 g/dL 6.4-8.2 N ALBUMIN (test code = ALB) 3.50 g/dL 3.4-5.0 N BILIRUBIN TOTAL (test code = BILT) 0.40 mg/dL 0.0-1.0 N BILIRUBIN DIRECT (test code = BILD) < 0.10 MG/DL 0.0-0.30 N BILIRUBIN INDIRECT (test cod e = BILIND) 0.30 MG/DL SGOT/AST (test code = AST) 27 IUnit/L 15-37 N SGPT/ALT (test code = ALT) 23 IUnit/L 30-65 L ALKALINE PHOSPHATASE TOTAL ( test code = ALKP) 163 IUnit/L 20-125 H [id number] 12:01:00* Test Item Value Reference Range Interpretation [facility] LIPASE (test code = LIP) 32 U/L 13-57 N PROTHROMBIN [id number] 12:00:00* Test Item Value Reference Range [facility]ation [facility] (test code = PTP) 10.1 SECONDS 9.3-12.9 N INTERNATIONAL NORMAL RATIO (test code = INR) 0.9 0.8-1.2 N TARGET INR BY INDICATION Indication INR1. Prophylaxis of venous thrombosis 2.0 - 3.0 (orthopedic surgery), Prophylaxis of venous thrombosis (other than high-risk surgery), Treatment of Deep Vein Thrombosis/Pulmonary Embolism, Prevention of systemic embolism - Tissue heart valves, Acute Myocardial Infarction (to prevent systemic embolism), Valvular heart disease, Atrial Fibrillation, Bileaflet mechanical valve in aortic position.2. Mechanical prosthetic valves (high risk), 2.5 - 3.5 Presence of Lupus Anticoagulant or Antiphospholipid Antibodies, Prevention of systemic embolism - Acute Myocardial Infarction (to prevent recurrent infarct). THROMBOPLASTIN TIME [id number] 12:00:00* Test Item Value Reference Range Interpretation Comme nts THROMBOPLASTIN TIME PARTIAL (test code = PTT) Seconds 25.0-39.5 [id number] 11:42:00* Test Item Value Reference Range Interpretation Comme nts TROPONIN-I (test code = TROPI) 0.008 ng/mL 0.000-0.045 N Negative: <= 0.0 45 Positive: >= 0.046 Correlation with serial results, other cardiac markers andclinical findings is necessary to determine the clinicalsignificance of this result. Results using different methodologies should not be comparedto one another as quantitative results may vary by method. LACTIC [id number] 11:39:00* Test Item Value Reference Range Interpretation Comme nts LACTIC ACID (test code = LACT) 2.7 mmol/L 0.4-1.9 H CBC W/AUTO [id number] 11:26:00* Test Item Value Reference Range Interpretation Comme nts WHITE BLOOD CELL (test code = WBC) 6.65 x10 3/uL 4.5-11.0 N RED BLOOD CELL (test code = RBC) 3.58 x10 6/uL 4.00-5.60 L HEMOGLOBIN (test code = HGB) 9.8 g/dL 12.5-16.9 L HEMATOCRIT (test code = HCT) 31.5 % 37.5-50.7 L MEAN CELL VOLUME (test code = MCV) 88.0 fL 81.0-99.0 N MEAN CELL HGB (test code = MCH) 27.4 pg 27.0-33.0 N MEAN CELL HGB CONCETRATION (test code = MCHC) 31.1 g/dL 33.0-37.0 L RED CELL DISTRIBUTION WIDTH CV (test code = RDW) 12.7 % 11.5-14.5 N RED CELL DISTRIBUTION WIDTH SD (test code = RDW-SD) 41.3 fL 37.0-54.0 N PLATELET COUNT (test code = PLT) 280 x10 3/uL 150-400 N MEAN PLATELET VOLUME (test c ode = MPV) 11.6 fL 7.0-9.0 H NEUTROPHIL % (test code = NT%) 68.2 % 56.0-77.0 N IMMATURE GRANULOCYTE % (test code = IG%) 0.3 % 0.0-2.0 N LYMPHOCYTE % (test code = LY%) 20.3 % 14.0-32.0 N MONOCYTE % (test code = MO%) 8.9 % 4.8-9.0 N EOSINOPHIL % (test code = EO%) 2.0 % 0.3-3.7 N BASOPHIL % (test code = BA%) 0.3 % 0.0-2.0 N NUCLEATED RBC % (test code = NRBC%) 0.0 % 0-0 N NEUTROPHIL # (test code = NT#) 4.54 x10 3/uL 2.0-7.6 N IMMATURE GRANULOCYTE # (test code = IG#) 0.02 x10 3/uL 0.00-0.03 N LYMPHOCYTE # (test code = LY#) 1.35 x10 3/uL 1.0-3.8 N MONOCYTE # (test code = MO#) 0.59 x10 3/uL 0.1-0.8 N EOSINOPHIL # (test code = EO#) 0.13 x10 3/uL 0.0-0.2 N BASOPHIL # (test code = BA#) 0.02 x10 3/uL 0.0-0.2 N NUCLEATED RBC # (test code = NRBC#) 0.00 x10 3/uL 0.0-0.1 N MANUAL DIFF REQUIRED (test c ode = MDIFF) NO CBC W/AUTO [id number] 11:23:00* Test Item Value Reference Range Interpretation Comme nts WHITE BLOOD CELL (test code = WBC) x10 3/uL 4.5-11.0 RED BLOOD CELL (test code = RBC) x10 6/uL 4.00-5.60 HEMOGLOBIN (test code = HGB) g/dL 12.5-16.9 HEMATOCRIT (test code = HCT) % 37.5-50.7 MEAN CELL VOLUME (test code = MCV) fL 81.0-99.0 MEAN CELL HGB (test code = MCH) pg 27.0-33.0 MEAN CELL HGB CONCETRATION ( test code = MCHC) g/dL 33.0-37.0 RED CELL DISTRIBUTION WIDTH CV (test code = RDW) % 11.5-14.5 PLATELET COUNT (test code = PLT) 280 x10 3/uL 150-400 N NEUTROPHIL % (test code = NT%) % 56.0-77.0 LYMPHOCYTE % (test code = LY%) % 14.0-32.0 NEUTROPHIL # (test code = NT#) x10 3/uL 2.0-7.6 LYMPHOCYTE # (test code = LY#) x10 3/uL 1.0-3.8 MANUAL DIFF REQUIRED (test c ode = MDIFF) - XR CHEST 1 [id number] 11:16:00FAX: Bob Samuels [phone] [place]: St: REG FAX: Shawanda Wild [phone] --------- Name: DUSTY FRANCOIS [facility] : 1960 Age/S: 60/M [address] [place] [address] Blvd Unit #: [id number] Loc: G[address]ERS[address] [place] [address] Phys: Bob Samuels Acct: [id number] Dis Date: Status: REG ER PHONE #: [phone] Exam Date: 08/27/2020 1102 FAX #: [phone] Reason: hypotensive EXAMS: CPT CODE: [id number] XR CHEST 1 V 11682 EXAM: Single view AP chest. EXAM DATE: 08/27/2020 at 1042 hours CLINICAL HISTORY: hypotensive COMPARISON: April 30, 2020 1756 hours Cardiomediastinal silhouette is within normal limits. Lungs appear free of acute disease. Stable elevation of the right hemidiaphragm is noted. The v isualized osseous structures demonstrate no acute findings.. IMPRESSION: No evidence of acute cardiopulmonary disease. at 1116 Reported and signed by: Cynthia Quezada M.D. CC: Bob Samuels DO; Shawanda Wild DO Technologist: RT Nimesh(Kinga) Ravindra Date/Time/By: 08/27/2020 (1116) : By: Rachael.CER Orig Print D/T:S: 08/27/2020 (111) PAGE 1 Signed [id number] 18:00:00* Test Item Value Reference Range Interpretation Comme nts GLUBED (test code = GLUBED) 194 MG/DL 70-110 H Performed by cer tified tar heater operator at [facility] [id number] 13:48:00* Test Item Value Reference Range Interpretation Comme nts GLUBED (test code = GLUBED) 323 MG/DL 70-110 H Performed by cer tified tar heater operator at [facility] [id number] 09:05:00* Test Item Value Reference Range Interpretation Comme nts GLUBED (test code = GLUBED) 243 MG/DL 70-110 H Performed by [facility] tified tar heater operator at [facility] [id number] 03:48:00* Test Item Value Reference Range Interpretation Comme nts TROPONIN-I (test code = TROPI) < 0.015 ng/mL 0.000-0.045 N Negative: <= 0.0 45 Positive: >= 0.046 Correlation with serial results, other cardiac markers andclinical findings is necessary to determine the clinicalsignificance of this result. Results using different methodologies should not be comparedto one another as quantitative results may vary by method. COMMENTS: 3 troponins total (including troponin done in ED)[id number] 01:35:00* Test Item Value Reference Range Interpretation Comme nts TROPONIN-I (test code = TROPI) < 0.015 ng/mL 0.000-0.045 N Negative: <= 0.0 45 Positive: >= 0.046 Correlation with serial results, other cardiac markers andclinical findings is necessary to determine the clinicalsignificance of this result. Results using different methodologies should not be comparedto one another as quantitative results may vary by method. COMMENTS: 3 troponins total (including troponin done in ED)- NM LUNG PERF [id number] 21:55:00FAX: Case De León DO [phone] [place]: St: ADM FAX: Shawanda Wild [phone] -------- Name: DUSTY FRANCOIS [facility] Linda Torres : 1960 Age/S: 59/M [address] [place] [address] Unit #: [id number] Loc: [place] [address] Phys: Case Decker DO Acct: [id number] Dis Date: Status: ADM IN PHONE #: [phone] Exam Date: 04/30/20202146 FAX #: [phone] Reason: shortness of breath; elevated d- dimer EXAMS: CPT CODE: [id number] NM LUNG PERF PARTICULATE 41285 Nuclear medicine pulmonary perfusion scan dated 04/30/2020. HISTORY: Shortness of breath. Elevated d-dimer. After the intravenous ministration of5 mCi of technetium 99m MAA, images of the chest were obtained in 6 projections. Correlation is made with a chest radiograph dated 04/30/2020. FINDINGS: The scintigraphic images of the chest demonstrate homogeneous distribution of the pulmonary perfusion agent. No significant perfusion defects are identified. IMPRESSION: 1. Distribution of the pulmonary perfusion agent appears normal with no perfusion defects detected. The examination is very low probability for pulmonary embolism. SL: [address] ctronically Signed by Margareth Griffith on 04/30/2020 at 2154 Reported and signedby: Nahum Griffith M.D. CC: Case Decker DO; Shawanda Wild DO Technologist: Lupe Doss RT(N)(CT)(PET) Trnsctriston Date/Time/By: 04/30/2020 (2154) : By: Daniela Orig Print D/T: S: 04/30/2020 (2157) PAGE 1 Signed ReportCoronavirus 2019 nCoV [id number] 18:44:00* Test Item Value Reference Range Interpretation Comme nts Coronavirus 2019 nCo Bedside (test code = [id number]) Negative Negative Negative results should be treated as presumptive and, ifinconsistent with clinical signs and symptoms or necessaryfor patient management, should be tested with an alternativemolecular assay. Negative results do not preclude VVLH-TrR-2dxfyrejnx and should not be used as the sole basis forpatient management decisions. Negative results should beconsidered in the context of a patient's recent exposures,history, presence of clinical signs and symptoms consistentwith COVID-19. Acknowledged? YESBNP [id number] 18:27:00* Test Item Value Reference Range Interpretation Comme [facility] BNP RAPID (test code = BNPRAP) 69.3 pg/mL 0.0-100.0 N [id number] 18:23:00* Test Item Value Reference Range Interpretation Comme [facility] D-DIMER (test code = DDIMER) 576 ng/mlFEU <=500 HH THROMBOSIS AND/O R PULMONARY EMBOLISM AND THE CLINICAL CUT- OFF VALUE FOR EXCLUSION (500 ng/mL FEU) OF THESE CONDITIONSIS VALIDATED BY THE QA TESTER OF THE METHOD. A NEGATIVE D-DIMER RESULT WHEN COMBINED WITH A CLINICALASSESSMENT OF LOW PRETEST PROBABILITY HAS BEEN SHOWN TO HAVEA HIGH NEGATIVE PREDICTIVE VALUE OF DVT OR PE. D-DIMER VALUES >500 ng/mL FEU ARE NOT DIAGNOSTIC FOR DVT, PEor DIC WITHOUT OTHER CONFIRMATORY TESTS AND APPROPRIATECLINICAL EUALUATIONS. BASIC METABOLIC [id number] 18:15:00* Test Item Value Reference Range Interpretation Comme nts SODIUM (test code = NA) 138 mEq/L 134-147 N POTASSIUM (test code = K) 5.5 mEq/L 3.4-5.0 H CHLORIDE (test code = CL) 113 mEq/L 100-108 H CARBON DIOXIDE (test code = CO2) 19 mEq/L 21-33 L ANION GAP (test code = GAP) 12 0-20 N GLUCOSE (test code = GLU) 202 mg/dL 70-110 H BLOOD UREA NITROGEN (test code = BUN) 48 mg/dL 7-18 H GLOMERULAR FILTRATION RATE (test code = GFR) 37.5 90-95 L Units of measure = ml/min/1.73 m2 CREATININE (test code = CREAT) 2.2 mg/dL 0.6-1.3 H CALCIUM (test code = CA) 8.8 mg/dL 8.0-10.5 N - XR CHEST 1 [id number] 18:15:00FAX: Case De León [phone] [place]: St: PRE FAX: Shawanda Wild [phone] -------- Name: DUSTY FRANCOIS [place] : 1960 Age/S: 59/M [address] [place] [address] Unit #: [id number] Loc: [place] [address] Phys: Case Decker DO Acct: [id number] Dis Date: Status: PRE ER PHONE #: [phone] Exam Date: 04/30/20201809 FAX #: [phone] Reason: chest pain SOB EXAMS: CPT CODE: [id number] CHEST 1 V 18967 Clinical Indication: Chest pain, shortness of breath. Comparison: 10/03/2019. Impression: Chest, single view. Eventration of the right hemidiaphragm. No consolidation, pleural effusion, or pneumothorax. Cardiomediastinal silhouette is unremarkable. No acute osseous abnormality. SL: [id number] at 1815 Reported and signed by: René Hanson M.D. CC: Case Decker DO; Shawanda Wild DO Technologist: Esther Haynes RT(R) Trnscrd Date/Time/By: 04/30/2020 (1814) : By: [email or web address] Orig Print D/T: S: 04/30/2020 (1817) PAGE 1 Signed ReportBASIC METABOLIC [id number] 18:14:00* Test Item Value Reference Range Interpretation Comme nts SODIUM (test code = NA) 138 mEq/L 134-147 N POTASSIUM (test code = K) 5.5 mEq/L 3.4-5.0 H CHLORIDE (test code = CL) 113 mEq/L 100-108 H CARBON DIOXIDE (test code = CO2) 19 mEq/L 21-33 L ANION GAP (test code = GAP) 12 0-20 N GLUCOSE (test code = GLU) 202 mg/dL 70-110 H BLOOD UREA NITROGEN (test co de = BUN) 48 mg/dL 7-18 H GLOMERULAR FILTRATION RATE ( test code = GFR) 90-95 CREATININE (test code = CREAT) mg/dL 0.6-1.3 CALCIUM (test code = CA) 8.8 mg/dL 8.0-10.5 N [id number] 18:13:00* Test Item Value Reference Range Interpretation Comme nts TROPONIN-I (test code = TROPI) < 0.015 ng/mL 0.000-0.045 N Negative: <= 0.0 45 Positive: >= 0.046 Correlation with serial results, other cardiac markers andclinical findings is necessary to determine the clinicalsignificance of this result. Results using different methodologies should not be comparedto one another as quantitative results may vary by method. CBC W/AUTO [id number] 18:04:00* Test Item Value Reference Range Interpretation Comme nts WHITE BLOOD CELL (test code = WBC) 6.37 x10 3/uL 4.5-11.0 N RED BLOOD CELL (test code = RBC) 3.43 x10 6/uL 4.00-5.60 L HEMOGLOBIN (test code = HGB) 9.5 g/dL 12.5-16.9 L HEMATOCRIT (test code = HCT) 30.3 % 37.5-50.7 L MEAN CELL VOLUME (test code = MCV) 88.3 fL 81.0-99.0 N MEAN CELL HGB (test code = MCH) 27.7 pg 27.0-33.0 N MEAN CELL HGB CONCETRATION (test code = MCHC) 31.4 g/dL 33.0-37.0 L RED CELL DISTRIBUTION WIDTH CV (test code = RDW) 15.6 % 11.5-14.5 H RED CELL DISTRIBUTION WIDTH SD (test code = RDW-SD) 49.6 fL 37.0-54.0 N PLATELET COUNT (test code = PLT) 272 x10 3/uL 150-400 N MEAN PLATELET VOLUME (test c ode = MPV) 10.5 fL 7.0-9.0 H NEUTROPHIL % (test code = NT%) 53.7 % 56.0-77.0 L IMMATURE GRANULOCYTE % (test code = IG%) 0.5 % 0.0-2.0 N LYMPHOCYTE % (test code = LY%) 31.1 % 14.0-32.0 N MONOCYTE % (test code = MO%) 11.3 % 4.8-9.0 H EOSINOPHIL % (test code = EO%) 3.1 % 0.3-3.7 N BASOPHIL % (test code = BA%) 0.3 % 0.0-2.0 N NUCLEATED RBC % (test code = NRBC%) 0.0 % 0-0 N NEUTROPHIL # (test code = NT#) 3.42 x10 3/uL 2.0-7.6 N IMMATURE GRANULOCYTE # (test code = IG#) 0.03 x10 3/uL 0.00-0.03 N LYMPHOCYTE # (test code = LY#) 1.98 x10 3/uL 1.0-3.8 N MONOCYTE # (test code = MO#) 0.72 x10 3/uL 0.1-0.8 N EOSINOPHIL # (test code = EO#) 0.20 x10 3/uL 0.0-0.2 N BASOPHIL # (test code = BA#) 0.02 x10 3/uL 0.0-0.2 N NUCLEATED RBC # (test code = NRBC#) 0.00 x10 3/uL 0.0-0.1 N MANUAL DIFF REQUIRED (test c ode = MDIFF) NO [id number] 20:48:00* Test Item Value Reference Range Interpretation Comme nts TROPONIN-I (test code = TROPI) 0.019 NG/ML 0.000-0.045 N Negative: </= 0. 045 Positive: >/= 0.046 Correlation with serial results, other cardiac markers, and clinical findings is necessary to determine the clinical significance of this result. Quantitative results using different methodologies should not be compared to one another as numerical results may varyby method. Completed by Nursing: NODRUGS OF ABUSE SCREEN [id number] 20:48:00* Test Item Value Reference Range Interpretation Comme nts URN COCAINE (test code = COCAURN) NEGATIVE SCcutoff <300 NG/ML URN CANNABINOIDS (test code = CANNABURN) NEGATIVE SCcutoff <50 NG/ML URN AMPHETAMINE (test code = AMPHETURN) NEGATIVE SCcutoff <1000 NG/ML URN BARBITURATE (test code = BARBITURN) NEGATIVE SCcutoff <200 NG/ML URN BENZODIAZEPINE (test code = BENZOURN) NEGATIVE SCcutoff <200 NG/ML URN OPIATES (test code = OPIATURN) NEGATIVE SCcutoff <2000 NG/ML URN PHENCYCLIDINE (PCP) (test code = PHENCURN) NEGATIVE SCcutoff <25 NG/ML URN METHADONE (test code = METHAURN) NEGATIVE SCcutoff <300 NG/ML UA RFLX MICR CULT IF [id number] 20:08:00* Test Item Value Reference Range Interpretation Comme nts UA COLOR (test code = COLU) YELLOW discript YEL/STRAW UA APPEARANCE (test code = APPU) HAZY discript CLEAR A UA GLUCOSE DIPSTICK (test code = DGLUU) TRACE mg/dL NEG UA BILIRUBIN DIPSTICK (test code = BILU) NEGATIVE mg/dL NEG UA KETONE DIPSTICK (test code = KETU) NEGATIVE mg/dL NEG UA SPECIFIC GRAVITY (test code = SGU) 1.025 SG 1.005-1.030 UA BLOOD DIPSTICK (test code = ESMER) 2+ mg/DL NEG A UA PH DIPSTICK (test code = ALICIA) 6.0 pH UNITS 5.0-7.0 UA PROTEIN DIPSTICK (test code = PROU) 3+ mg/dL NEG A UA UROBILINIOGEN DIPSTICK (test code = URO) 0.2 mg/dL <2.0 UA NITRITE DIPSTICK (test code = BROOKLYNN) NEGATIVE SCREEN NEG UA LEUKOCYTE ESTERASE DIPSTICK (test code = LEUU) NEGATIVE Leuk/mcL NEGATIVE UA WBC (test code = WBCU) 1-3 #WBC/HPF 0-3 UA RBC (test code = RBCU) 3-5 #RBC/HPF 0-3 A UA BACTERIA (test code = BACU) TRACE /HPF NONE-TRACE UA CULTURE NEEDED? (test code = UACULT) NO, WBC<10 Criteria Culture CHK SOURCE OF URINE: CLEAN CATCHIndication for culture: Dysuria/Frequency- CT HEAD/BRAIN W/O [id number] 19:49:00Name: DUSTY FRANCOIS [facility] : 1960 Age/S: 59 / M [id number] Unit #: [id number] Loc: [place] [address] Phys: Jareth Tubbs MD Acct: [id number] Dis Date: Status: REG ER PHONE #: [phone] Exam Date: 10/03/20191900 FAX #: Reason: facial droop EXAMS: CPT: [id number] CT HEAD/BRAIN W/O CONT 43727 Location code: B2 CT Brain Without Contrast Indication: facial droop Comparison: 06/04/2019. Technical factors: Axial images were obtained from the base of the skull to the vertex. Sagittal and coronal reconstruction. This exam was performed according to our departmental dose-optimization program, which includes automated exposure control, adjustment of the mA and/or kV according to patient size and/or use of iterative reconstruction technique. Findings: Ventricles and sulci are of normal caliber for patient age. Chronic right posterior parietal infarct. No he morrhage, mass-effect, or abnormal extra-axial fluid collection. No evidence of acute infarct. Calvarium is unremarkable. No confluent otomastoid disease. Orbits are normal in appearance. Paranasal sinuses are clear. Impression 1. Chronic right posterior parietal infarct. No evidence of acute pathology. at 1949 Reported and signed by: Delano Hurtado M.D. PAGE 1 Signed Report (CONTINUED) Name: DUSTY FRANCOIS [facility] : 1960 Age/S: 59 / M [address] Unit #: [id number] Loc: [place] [address] Phys: Jareth Tubbs MD Acct: [id number] Dis Date: Status: REG ER PHONE #: [phone] Exam Date: 10/03/20191900 FAX #: Reason: facial droop EXAMS: CPT: [id number] CT HEAD/BRAIN W/O CONT 14058 <Continued> CC: Shawanda Wild DO; Belkis TAPIA; Jareth Tubbs MD Technologist:Manny Jaffe, RT(R)(CT) CTDI: DLP: Trnscb Date/Time: 10/03/2019 (1948) [email or web address] Orig Print D/T: S: 10/03/2019 (1951) PAGE 2 Signed ReportUA RFLX MICR CULT IF [id number] 19:27:00* Test Item Value Reference Range Interpretation Comme nts UA COLOR (test code = COLU) YELLOW discript YEL/STRAW UA APPEARANCE (test code = APPU) HAZY discript CLEAR A UA GLUCOSE DIPSTICK (test code = DGLUU) TRACE mg/dL NEG UA BILIRUBIN DIPSTICK (test code = BILU) NEGATIVE mg/dL NEG UA KETONE DIPSTICK (test code = KETU) NEGATIVE mg/dL NEG UA SPECIFIC GRAVITY (test code = SGU) 1.025 SG 1.005-1.030 UA BLOOD DIPSTICK (test code = ESMER) 2+ mg/DL NEG A UA PH DIPSTICK (test code = ALICIA) 6.0 pH UNITS 5.0-7.0 UA PROTEIN DIPSTICK (test code = PROU) 3+ mg/dL NEG A UA UROBILINIOGEN DIPSTICK (test code = URO) 0.2 mg/dL <2.0 UA NITRITE DIPSTICK (test code = BROOKLYNN) NEGATIVE SCREEN NEG UA LEUKOCYTE ESTERASE DIPSTICK (test code = LEUU) NEGATIVE Leuk/mcL NEGATIVE UA CULTURE NEEDED? (test code = UACULT) Criteria Culture CHK SOURCE OF URINE: CLEAN CATCHIndication for culture: Dysuria/Frequency COMPREHENSIVE METABOLIC [id number] 19:24:00* Test Item Value Reference Range Interpretation Comme nts SODIUM (test code = NA) 140 mmol/L 134-147 N POTASSIUM (test code = K) 4.5 mmol/L 3.4-5.0 N CHLORIDE (test code = CL) 108 mmol/L 100-108 N CARBON DIOXIDE (test code = CO2) 27 mmol/L 21-32 N ANION GAP (test code = GAP) 5.0 GAP calc 4.0-15.0 N GLUCOSE (test code = GLU) 199 MG/DL 70-110 H BLOOD UREA NITROGEN (test co de = BUN) 36 MG/DL 7-18 H GLOMERULAR FILTRATION RATE ( test code = GFR) 50 estGFR >60 L CREATININE (test code = CREAT) 1.8 MG/DL 0.8-1.3 H TOTAL PROTEIN (test code = PROT) 5.8 G/DL 6.4-8.2 L ALBUMIN (test code = ALB) 2.5 G/DL 3.4-5.0 L GLOBULIN (test code = GLOB) 3.3 GM/dL ALBUMIN/GLOBULIN RATIO (test code = A/G) 0.8 RATIO 1.2-2.2 L CALCIUM (test code = CA) 8.4 MG/DL 8.5-10.1 L BILIRUBIN TOTAL (test code = BILT) 0.20 MG/DL 0.2-1.2 N SGOT/AST (test code = AST) 30 Unit/L 15-37 N SGPT/ALT (test code = ALT) 21 Unit/L 12-78 N ALKALINE PHOSPHATASE TOTAL ( test code = ALKP) 88 Unit/L 50-136 N CBC W/AUTO [id number] 19:08:00* Test Item Value Reference Range Interpretation Comme nts WHITE BLOOD CELL (test code = WBC) 6.1 K/mm3 3.5-11.0 N RED BLOOD CELL (test code = RBC) 3.47 M/mm3 4.70-6.10 L HEMOGLOBIN (test code = HGB) 9.4 G/DL 12.3-15.9 L HEMATOCRIT (test code = HCT) 29.0 % 35.8-46.7 L MEAN CELL VOLUME (test code = MCV) 83.6 Fl 86.3-98.9 L MEAN CELL HGB (test code = MCH) 27.1 pg 28.9-34.4 L MEAN CELL HGB CONCETRATION ( test code = MCHC) 32.4 G/DL 32.1-34.5 N RED CELL DISTRIBUTION WIDTH (test code = RDW) 16.3 SD 11.5-14.5 H PLATELET COUNT (test code = PLT) 334.0 K/mm3 150-450 N MEAN PLATELET VOLUME (test c ode = MPV) 9.50 fL 7.0-9.6 N NEUTROPHIL % (test code = NT%) 55.0 % 40-76 N LYMPHOCYTE % (test code = LY%) 33.8 % 20.5-51.1 N MONOCYTE % (test code = MO%) 8.7 % 1.7-9.3 N EOSINOPHIL % (test code = EO%) 2.3 % 0.0-6.0 N BASOPHIL % (test code = BA%) 0.2 % 0.0-2.0 N NEUTROPHIL # (test code = NT#) 3.33 K/mm3 1.8-7.6 N LYMPHOCYTE # (test code = LY#) 2.1 K/mm3 0.6-3.0 N MONOCYTE # (test code = MO#) 0.5 K/mm3 0.2-1.5 N EOSINOPHIL # (test code = EO#) 0.1 K/mm3 0.0-0.4 N BASOPHIL # (test code = BA#) 0.0 K/mm3 0.0-0.2 N MANUAL DIFF REQUIRED (test c ode = MDIFF) NO DIFF/SCN CRITERIA - XR CHEST 1 [id number] 18:59:00Name: DUSTY FRANCOIS [facility] : 1960 Age/S: 59 / M [address] Unit #: [id number] Loc: [place] [address] Phys: Jareth Tubbs MD Acct: [id number] Dis Date: Status: REG ER PHONE #: [phone] Exam Date: 10/03/2019 1901 FAX #: Reason: facial droop EXAMS: CPT: [id number] XR CHEST 1 V 36748 Fluoro Time: DAP (Gy m2): Air Kerma (mGy): Location code: B2 Chest 1 view Indication: facial droop. Comparison: 09/15/2019 Findings: The heart and mediastinum are not remarkable. Costophrenic angles are clear. Lungs are clear. Bone is unremarkable for age. Impression: 1. No radiographic evidence of acute cardiopulmonary disease. at 1859 Reported and signed by: Delano Hurtado M.D. CC: Shawanda Wild DO; Belkis TAPIA; Jareth Tubbs MD PAGE 1 Signed Report Name[facility] 1960 Age/S: 59 / M [address] Unit #: [id number] Loc: [place] [address] Phys: Jareth Tubbs MD Acct: [id number] Dis Date: Status: REG ER PHONE #: [phone] Exam Date: 10/03/2019 190 FAX #: Reason: facial droop EXAMS: CPT: [id number] XR CHEST 1 V [id number] Time: DAP (Gy m2): Air Kerma (mGy): <Continued> Technologist: Manny Jaffe RT(R)(CT) Trnscb Date/Time: 10/03/2019 (1858) [email or web address] Orig Print D/T: S: 10/03/2019 (1901) PAGE 2 SignedReportBASIC METABOLIC [id number] 07:32:00* Test Item Value Reference Range Interpretation Comme nts SODIUM (test code = NA) 141 mEq/L 134-147 N POTASSIUM (test code = K) 4.6 mEq/L 3.4-5.0 N CHLORIDE (test code = CL) 113 mEq/L 100-108 H CARBON DIOXIDE (test code = CO2) 23 mEq/L 21-33 N ANION GAP (test code = GAP) 10 0-20 N GLUCOSE (test code = GLU) 181 mg/dL 70-110 H BLOOD UREA NITROGEN (test code = BUN) 31 mg/dL 7-18 H GLOMERULAR FILTRATION RATE (test code = GFR) 50.5 90-95 L Units of measure = ml/min/1.73 m2 CREATININE (test code = CREAT) 1.7 mg/dL 0.6-1.3 H CALCIUM (test code = CA) 8.3 mg/dL 8.0-10.5 N CBC W/AUTO [id number] 07:13:00* Test Item Value Reference Range Interpretation Comme nts WHITE BLOOD CELL (test code = WBC) 6.39 x10 3/uL 4.5-11.0 N RED BLOOD CELL (test code = RBC) 3.24 x10 6/uL 4.00-5.60 L HEMOGLOBIN (test code = HGB) 8.8 g/dL 12.5-16.9 L HEMATOCRIT (test code = HCT) 27.6 % 37.5-50.7 L MEAN CELL VOLUME (test code = MCV) 85.2 fL 81.0-99.0 N MEAN CELL HGB (test code = MCH) 27.2 pg 27.0-33.0 N MEAN CELL HGB CONCETRATION (test code = MCHC) 31.9 g/dL 33.0-37.0 L RED CELL DISTRIBUTION WIDTH CV (test code = RDW) 16.2 % 11.5-14.5 H RED CELL DISTRIBUTION WIDTH SD (test code = RDW-SD) 51.1 fL 37.0-54.0 N PLATELET COUNT (test code = PLT) 248 x10 3/uL 150-400 N MEAN PLATELET VOLUME (test c ode = MPV) 10.3 fL 7.0-9.0 H NEUTROPHIL % (test code = NT%) 69.8 % 56.0-77.0 N IMMATURE GRANULOCYTE % (test code = IG%) 0.3 % 0.0-2.0 N LYMPHOCYTE % (test code = LY%) 18.5 % 14.0-32.0 N MONOCYTE % (test code = MO%) 8.9 % 4.8-9.0 N EOSINOPHIL % (test code = EO%) 2.3 % 0.3-3.7 N BASOPHIL % (test code = BA%) 0.2 % 0.0-2.0 N NUCLEATED RBC % (test code = NRBC%) 0.0 % 0-0 N NEUTROPHIL # (test code = NT#) 4.46 x10 3/uL 2.0-7.6 N IMMATURE GRANULOCYTE # (test code = IG#) 0.02 x10 3/uL 0.00-0.03 N LYMPHOCYTE # (test code = LY#) 1.18 x10 3/uL 1.0-3.8 N MONOCYTE # (test code = MO#) 0.57 x10 3/uL 0.1-0.8 N EOSINOPHIL # (test code = EO#) 0.15 x10 3/uL 0.0-0.2 N BASOPHIL # (test code = BA#) 0.01 x10 3/uL 0.0-0.2 N NUCLEATED RBC # (test code = NRBC#) 0.00 x10 3/uL 0.0-0.1 N MANUAL DIFF REQUIRED (test c ode = MDIFF) NO [id number] 23:06:00* Test Item Value Reference Range Interpretation Comme nts GLUBED (test code = GLUBED) 233 MG/DL 70-110 H Performed by cer tified tar heater operator at [facility] [id number] 20:56:00* Test Item Value Reference Range Interpretation Comme nts GLUBED (test code = GLUBED) 233 MG/DL 70-110 H Performed by cer tified tar heater operator at [facility] [id number] 10:30:00* Test Item Value Reference Range Interpretation Comme nts GLUBED (test code = GLUBED) 155 MG/DL 70-110 H Performed by [facility] tified tar heater operator at [facility] [id number] 09:45:00* Test Item Value Reference Range Interpretation Comme nts ACT-ISTAT (test code = ACTI) 246 SEC 74-137 H Performed by cer tified tar heater operator at [facility] - XR CHEST 2 [id number] 09:26:00FAX: Yvette Rae MD [phone] [place]: St: PRE FAX: Shawanda Wild [phone] ----- Name: DUSTY FRANCOIS [facility] : 1960 Age/S: 59/M [address] [place] [address] Unit #: [id number] Loc: [place] [address] Phys: Yvette Rae MD Acct: [id number] Dis Date: Status: PRE CTC PHONE #: [phone] Exam Date: 09/15/2019918 FAX #: [phone] Reason: PRE-OP [facility] EXAMS: CPT CODE: [id number] XR CHEST 2 V 44943 CLINICAL HISTORY: PRE-OP [facility] COMPARISON: June 21, 2019 PA and lateral films of the chest demonstrate that heart size is normal. Lung dsouza are clear. No evidence of pneumonia or congestive failure is seen. Changes of pulmonary edema seen on previous examination are no longer seen on current study. Regional skeletal structures demonstrate no acute abnormality. IMPRESSION:No evidence of pneumonia or congestive failure is seen. at 0994 Reported and signed by: Tu Adhikari M.D. CC: Yvette Rae MD; Shawanda Wild DO Technologist: RT Rema(Kinga)Kinga Trnscrd Date/Time/By: 09/15/2019 (925) : By: Akanksha Orig Print D/T: S: 09/15/2019 (1587) PAGE 1 Signed ReportPROTHROMBIN [id number] 08:34:00* Test Item Value Reference Range Interpretation Comme nts PROTHROMBIN TIME PATIENT (test code = PTP) 10.4 SECONDS 9.3-12.9 N INTERNATIONAL NORMAL RATIO (test code = INR) 1.0 0.8-1.2 N TARGET INR BY INDICATION Indication INR1. Prophylaxis of venous thrombosis 2.0 - 3.0 (orthopedic surgery), Prophylaxis of venous thrombosis (other than high-risk surgery), Treatment of Deep Vein Thrombosis/Pulmonary Embolism, Prevention of systemic embolism - Tissue heart valves, Acute Myocardial Infarction (to prevent systemic embolism), Valvular heart disease, Atrial Fibrillation, Bileaflet mechanical valve in aortic position.2. Mechanical prosthetic valves (high risk), 2.5 - 3.5 Presence of Lupus Anticoagulant or Antiphospholipid Antibodies, Prevention of systemic embolism - Acute Myocardial Infarction (to prevent recurrent infarct). BASIC METABOLIC [id number] 08:31:00* Test Item Value Reference Range Interpretation Comme nts SODIUM (test code = NA) 142 mEq/L 134-147 N POTASSIUM (test code = K) 4.7 mEq/L 3.4-5.0 N CHLORIDE (test code = CL) 109 mEq/L 100-108 H CARBON DIOXIDE (test code = CO2) 28 mEq/L 21-33 N ANION GAP (test code = GAP) 10 0-20 N GLUCOSE (test code = GLU) 181 mg/dL 70-110 H BLOOD UREA NITROGEN (test code = BUN) 34 mg/dL 7-18 H GLOMERULAR FILTRATION RATE (test code = GFR) 50.5 90-95 L Units of measure = ml/min/1.73 m2 CREATININE (test code = CREAT) 1.7 mg/dL 0.6-1.3 H CALCIUM (test code = CA) 8.4 mg/dL 8.0-10.5 N BASIC METABOLIC [id number] 08:29:00* Test Item Value Reference Range Interpretation Comme nts SODIUM (test code = NA) 142 mEq/L 134-147 N POTASSIUM (test code = K) 4.7 mEq/L 3.4-5.0 N CHLORIDE (test code = CL) 109 mEq/L 100-108 H CARBON DIOXIDE (test code = CO2) 28 mEq/L 21-33 N ANION GAP (test code = GAP) 10 0-20 N GLUCOSE (test code = GLU) 181 mg/dL 70-110 H BLOOD UREA NITROGEN (test co de = BUN) 34 mg/dL 7-18 H GLOMERULAR FILTRATION RATE ( test code = GFR) 90-95 CREATININE (test code = CREAT) mg/dL 0.6-1.3 CALCIUM (test code = CA) 8.4 mg/dL 8.0-10.5 N CBC W/AUTO [id number] 08:27:00* Test Item Value Reference Range Interpretation Comme nts WHITE BLOOD CELL (test code = WBC) 5.36 x10 3/uL 4.5-11.0 N RED BLOOD CELL (test code = RBC) 3.69 x10 6/uL 4.00-5.60 L HEMOGLOBIN (test code = HGB) 9.9 g/dL 12.5-16.9 L HEMATOCRIT (test code = HCT) 32.0 % 37.5-50.7 L MEAN CELL VOLUME (test code = MCV) 86.7 fL 81.0-99.0 N MEAN CELL HGB (test code = MCH) 26.8 pg 27.0-33.0 L MEAN CELL HGB CONCETRATION (test code = MCHC) 30.9 g/dL 33.0-37.0 L RED CELL DISTRIBUTION WIDTH CV (test code = RDW) 16.1 % 11.5-14.5 H RED CELL DISTRIBUTION WIDTH SD (test code = RDW-SD) 51.0 fL 37.0-54.0 N PLATELET COUNT (test code = PLT) 307 x10 3/uL 150-400 N MEAN PLATELET VOLUME (test c ode = MPV) 10.3 fL 7.0-9.0 H NEUTROPHIL % (test code = NT%) 62.4 % 56.0-77.0 N IMMATURE GRANULOCYTE % (test code = IG%) 0.2 % 0.0-2.0 N LYMPHOCYTE % (test code = LY%) 28.0 % 14.0-32.0 N MONOCYTE % (test code = MO%) 7.3 % 4.8-9.0 N EOSINOPHIL % (test code = EO%) 1.9 % 0.3-3.7 N BASOPHIL % (test code = BA%) 0.2 % 0.0-2.0 N NUCLEATED RBC % (test code = NRBC%) 0.0 % 0-0 N NEUTROPHIL # (test code = NT#) 3.35 x10 3/uL 2.0-7.6 N IMMATURE GRANULOCYTE # (test code = IG#) 0.01 x10 3/uL 0.00-0.03 N LYMPHOCYTE # (test code = LY#) 1.50 x10 3/uL 1.0-3.8 N MONOCYTE # (test code = MO#) 0.39 x10 3/uL 0.1-0.8 N EOSINOPHIL # (test code = EO#) 0.10 x10 3/uL 0.0-0.2 N BASOPHIL # (test code = BA#) 0.01 x10 3/uL 0.0-0.2 N NUCLEATED RBC # (test code = NRBC#) 0.00 x10 3/uL 0.0-0.1 N MANUAL DIFF REQUIRED (test c ode = MDIFF) NO UA RFLX MICR CULT IF [id number] 19:58:00* Test Item Value Reference Range Interpretation Comme nts UA COLOR (test code = COLU) YELLOW discript YEL/STRAW UA APPEARANCE (test code = APPU) CLOUDY discript CLEAR A UA GLUCOSE DIPSTICK (test code = DGLUU) 1+ mg/dL NEG UA BILIRUBIN DIPSTICK (test code = BILU) NEGATIVE mg/dL NEG UA KETONE DIPSTICK (test code = KETU) NEGATIVE mg/dL NEG UA SPECIFIC GRAVITY (test code = SGU) >=1.030 SG 1.005-1.030 A UA BLOOD DIPSTICK (test code = ESMER) 3+ mg/DL NEG A UA PH DIPSTICK (test code = ALICIA) 5.5 pH UNITS 5.0-7.0 UA PROTEIN DIPSTICK (test code = PROU) 3+ mg/dL NEG A UA UROBILINIOGEN DIPSTICK (test code = URO) 0.2 mg/dL <2.0 UA NITRITE DIPSTICK (test code = BROOKLYNN) NEGATIVE SCREEN NEG UA LEUKOCYTE ESTERASE DIPSTICK (test code = LEUU) 2+ Leuk/mcL NEGATIVE A UA WBC (test code = WBCU) 20-30 #WBC/HPF 0-3 A UA RBC (test code = RBCU) 10-20 #RBC/HPF 0-3 A UA BACTERIA (test code = BACU) NONE SEEN /HPF NONE-TRACE UA SQUAMOUS CELLS (test code = SQU) 1+ /HPF NONE UA HYALINE CAST (test code = HYALU) 10-15 #/LPF 0-3 A UA SPERM (test code = SPERMU) 4+ /HPF NONE SEEN A UA CULTURE NEEDED? (test code = UACULT) NO, WBC>10 & EPI>25 Criteria Culture CHK SOURCE OF URINE: CLEAN CATCHIndication for culture: Dysuria/FrequencyUA RFLX MICR CULT IF [id number] 19:45:00* Test Item Value Reference Range Interpretation Comme nts UA COLOR (test code = COLU) YELLOW discript YEL/STRAW UA APPEARANCE (test code = APPU) CLOUDY discript CLEAR A UA GLUCOSE DIPSTICK (test code = DGLUU) 1+ mg/dL NEG UA BILIRUBIN DIPSTICK (test code = BILU) NEGATIVE mg/dL NEG UA KETONE DIPSTICK (test cod e = KETU) NEGATIVE mg/dL NEG UA SPECIFIC GRAVITY (test code = SGU) >=1.030 SG 1.005-1.030 A UA BLOOD DIPSTICK (test code = ESMER) 3+ mg/DL NEG A UA PH DIPSTICK (test code = ALICIA) 5.5 pH UNITS 5.0-7.0 UA PROTEIN DIPSTICK (test code = PROU) 3+ mg/dL NEG A UA UROBILINIOGEN DIPSTICK (test code = URO) 0.2 mg/dL <2.0 UA NITRITE DIPSTICK (test code = BROOKLYNN) NEGATIVE SCREEN NEG UA LEUKOCYTE ESTERASE DIPSTICK (test code = LEUU) 2+ Leuk/mcL NEGATIVE A UA CULTURE NEEDED? (test cod e = UACULT) Criteria Culture CHK SOURCE OF URINE: CLEAN CATCHIndication for culture: Dysuria/FrequencyUA RFLX MICR CULT IF [id number] 21:31:00* Test Item Value Reference Range Interpretation Comme nts UA COLOR (test code = COLU) YELLOW discript YEL/STRAW UA APPEARANCE (test code = APPU) HAZY discript CLEAR A UA GLUCOSE DIPSTICK (test code = DGLUU) NEGATIVE mg/dL NEG UA BILIRUBIN DIPSTICK (test code = BILU) NEGATIVE mg/dL NEG UA KETONE DIPSTICK (test code = KETU) NEGATIVE mg/dL NEG UA SPECIFIC GRAVITY (test code = SGU) 1.025 SG 1.005-1.030 UA BLOOD DIPSTICK (test code = ESMER) 2+ mg/DL NEG A UA PH DIPSTICK (test code = ALICIA) 5.5 pH UNITS 5.0-7.0 UA PROTEIN DIPSTICK (test code = PROU) 2+ mg/dL NEG A UA UROBILINIOGEN DIPSTICK (test code = URO) 0.2 mg/dL <2.0 UA NITRITE DIPSTICK (test code = BROOKLYNN) NEGATIVE SCREEN NEG UA LEUKOCYTE ESTERASE DIPSTICK (test code = LEUU) NEGATIVE Leuk/mcL NEGATIVE UA WBC (test code = WBCU) 0-1 #WBC/HPF 0-3 UA RBC (test code = RBCU) 20-30 #RBC/HPF 0-3 A UA BACTERIA (test code = BACU) 1+ /HPF NONE-TRACE A UA SQUAMOUS CELLS (test code = SQU) 1+ /HPF NONE UA MUCUS (test code = MUCU) 1+ /LPF NONE SEEN UA CULTURE NEEDED? (test code = UACULT) NO, WBC<10 Criteria Culture CHK SOURCE OF URINE: WALLACE CATHETERIndication for culture: Suprapubic PainUA RFLX MICR CULT IF [id number] 21:22:00* Test Item Value Reference Range Interpretation Comme nts UA COLOR (test code = COLU) YELLOW discript YEL/STRAW UA APPEARANCE (test code = APPU) HAZY discript CLEAR A UA GLUCOSE DIPSTICK (test code = DGLUU) NEGATIVE mg/dL NEG UA BILIRUBIN DIPSTICK (test code = BILU) NEGATIVE mg/dL NEG UA KETONE DIPSTICK (test code = KETU) NEGATIVE mg/dL NEG UA SPECIFIC GRAVITY (test code = SGU) 1.025 SG 1.005-1.030 UA BLOOD DIPSTICK (test code = ESMER) 2+ mg/DL NEG A UA PH DIPSTICK (test code = ALICIA) 5.5 pH UNITS 5.0-7.0 UA PROTEIN DIPSTICK (test code = PROU) 2+ mg/dL NEG A UA UROBILINIOGEN DIPSTICK (test code = URO) 0.2 mg/dL <2.0 UA NITRITE DIPSTICK (test code = BROOKLYNN) NEGATIVE SCREEN NEG UA LEUKOCYTE ESTERASE DIPSTICK (test code = LEUU) NEGATIVE Leuk/mcL NEGATIVE UA CULTURE NEEDED? (test code = UACULT) Criteria Culture CHK SOURCE OF URINE: WALLACE CATHETERIndication for culture: Suprapubic Pain- US ABDOMEN [id number] 16:25:00Name: DUSTY FRANCOIS [facility] : 1960 Age/S: 58 / M [address] [place] [address] Unit #: [id number] Loc: [place] [address] Phys: Kyung Bedoya MD Acct: [id number] Dis Date: [id number] Status: DIS IN PHONE #: [phone] Exam Date: 06/16/2019 1454 FAX #: [phone] Reason: THORACENTESIS, RIGHT EFFUSION Report Has Been Amended EXAMS: CPT CODE: [id number] US ABDOMEN LTD 10708 Addendum - 08/07/2019 SIGNED 08/07/2019 ADDENDUM: [id number] US/USABDLTD Performed by: REGINA Patel Supervised and Electronically signed by: Bertrand Stone DO at 1625 Reported and signed by: Bertrand Stone D.O. Report EXAM: US ABDOMEN LIMITED Ultrasound- guided right thoracentesis. INDICATION: Large pleural effusion. COMPARISON: CT June 15, 2019 TECHNIQUE: Ultrasound interrogation of the right posterior thorax shows large pleural effusion. The procedure, risks, benefits and alternatives were discussed. Informedconsent was obtained. Timeout was performed prior to the procedure. The technical component of thisstudy was performed by directly supervised physician law office assistant. The technical report is available in the electronic medical record. Findings: Total volume of 1100 cc of clear yellow pleural fluid wasremoved. IMPRESSION: 1. Large right pleural effusion. 2. Technically successful ultrasound-guided thoracentesis. PAGE 1 Signed Report (CONTINUED) Name: DUSTY FRANCOIS : 1960ge/S: / [address] Unit #: [id number] Loc: [place] [address] Phys: Kyung Bedoya MD Acct: [id number] Dis Date: [id number] Status: DIS IN PHONE #: [phone] Exam Date: 06/16/2019 1454 FAX #: [phone] Reason: THORACENTESIS, RIGHT EFFUSION Report Has Been Amended EXAMS: CPT CODE: [id number] US ABDOMEN LTD 23633 (Continued) at 1505 Reported and signed by: Bertrand Stone D.O. CC: Kyung Bedoya MD; Shawanda Wild DO Technologist: Mone Alston Trnscb Date/Time: 06/16/2019 (1505) t.[email or web address] Orig Print D/T: S: 06/16/2019 (1508) Probe: PAGE 2 Signed Report- US THORACENTESIS [id number] 16:25:00Name: DUSTY FRANCOIS : 1960 Age/S: 58 / [address] Unit #: [id number] Loc: [place] [address] Phys: Koko Chung NP Acct: [id number] Dis Date: [id number] Status: DIS IN PHONE #: [phone] Exam Date: 06/16/2019 1453 FAX #: [phone] Reason: Large Pleural effusion Report Has Been Amended EXAMS: CPT CODE: [id number] US THORACENTESIS W/IMAG 46561 Addendum - 08/07/2019 SIGNED 08/07/2019 ADDENDUM: [id number] US/USTHRWIMG Performed by: Matt Patel and Electronically signed by: Bertrand Stone DO at 1625 Reported and signed by: Bertrand Stone D.O. Report EXAM: US ABDOMEN LIMITED Ultrasound-guided right thoracentesis. INDICATION: Large pleural effusion. COMPARISON: CT June 15, 2019 TECHNIQUE: Ultrasound interrogation of the right posterior thorax shows large pleural effusion. The procedure, risks, benefits and alternatives were discussed. Informed consent was obtained. Timeout was performed prior to the procedure. The technical component of this study was performed by directly supervised physician law office assistant. The technical report is available in the [facility] medical record. Findings: Total volume of 1100 cc of clear yellow pleural fluid was removed. IMPRESSION: 1. Large right pleural effusion. 2. Technically successful ultrasound-guided thoracentesis. PAGE 1 Signed Report (CONTINUED) Name: DUSTY FRANCOIS [facility] [place] : 1960 Age/S: 58 / M [address] [place] [address] Unit #: [id number] Loc: [facility] [place] [address] Phys: Koko Chung MEDICATION ADMINISTRATION PROFESSIONAL Acct: [id number] Dis Date: [id number] Status: DIS IN PHONE #: [phone] Exam Date: 06/16/2019 1453 FAX #: [phone] Reason: Large Pleural effusion Report Has Been Amended EXAMS: CPT CODE: [id number] US THORACENTESIS W/IMAG 00887 (Continued) at 1505 Reported and signed by: Bertrand Stone D.O. CC: Kyung Welch; Shawanda [facility] DO; Koko Chung NP Technologist: Mone Alston Trnscb Date/Time: 06/16/2019 (9579) [email or web address] Orig Print D/T: S: 06/16/2019 (6672) Probe: PAGE 2 Signed Report- CT ABD PELVIS [id number] 02:45:00Name: DUSTY FRANCOIS [facility] : 1960 Age/S: 58 / M [address] Unit #: [id number] Loc: [place] [address] Phys: Kurt Shay MD Acct: [id number] Dis Date: Status: REG ER PHONE #: [phone] Exam Date: 07/16/2019 0216 FAX #: Reason: r/o SBO, no BM for one week and n/v EXAMS: CPT: [id number] CT ABD PELVIS W/CONT 18118 EXAM: - CT ABD PELVIS W/CONT HISTORY: Abdominal pain. TECHNIQUE: Axial tomograms through the abdomen and pelvis were obtained after intravenous contrast. Coronal and sagittal reformatted images are provided. This exam was performed according to our departmental dose-optimization program, which includes automated exposure control, adjustment of the mAand/or kV according to patient size and/or use of iterative reconstruction technique. COMPARISON: None available time of interpretation. FINDINGS: The visualized lung bases are clear. The liver, splee n, pancreas, adrenal glands and kidneys demonstrate no significant abnormalities. There is scarringat the upper pole of the right kidney. This is a limited exam for detailed evaluation. The appendixhas a normal appearance. The colon is filled with retained fecal material throughout the length mostly in distal colon and rectum is distended with fecal matter. There is no adenopathy or free fluid. The osseous structures demonstrate degenerative change without focal lesion. IMPRESSION: The colonis filled with retained fecal material. The rectum is distended with fecal matter. This may represent constipation. Right renal upper pole scarring. PAGE 1 Signed Report (CONTINUED) Name: DUSTY FRANCOIS [place] : 1960 Age/S: 58 / M [address] Unit #: [id number] Loc: [place] [address] Phys: Kurt Shay MD Acct: [id number] Dis Date: Status: REG ER PHONE #: [phone] Exam Date: 07/16/2019 021 FAX #: Reason: r/o SBO, no BM for one week and n/v EXAMS: CPT: [id number] CT ABD PELVIS W/CONT 44931 <Continued> at 0245 Reported and signed by: Tamir Roberson M.D. CC: Shawanda Menon; Kurt Shay MD Technologist:Radhika Benitez RT(R)(CT) CTDI: DLP: Trnscb Date/Time: 07/16/2019 (244) [email or web address] Orig Print D/T: S: 07/16/2019 (8) PAGE 2 Signed ReportBASIC METABOLIC [id number] 01:44:00* Test Item Value Reference Range Interpretation Comme nts SODIUM (test code = NA) 139 mmol/L 134-147 N POTASSIUM (test code = K) 4.7 mmol/L 3.4-5.0 N CHLORIDE (test code = CL) 103 mmol/L 100-108 N CARBON DIOXIDE (test code = CO2) 24 mmol/L 21-32 N ANION GAP (test code = GAP) 12.0 GAP calc 4.0-15.0 N GLUCOSE (test code = GLU) 293 MG/DL 70-110 H BLOOD UREA NITROGEN (test co de = BUN) 43 MG/DL 7-18 H GLOMERULAR FILTRATION RATE (test code = GFR) 51 estGFR >60 L CREATININE (test code = CREAT) 1.8 MG/DL 0.8-1.3 H CALCIUM (test code = CA) 9.4 MG/DL 8.5-10.1 N Completed by Nursing: NOHEPATIC FUNCTION [id number] 01:44:00* Test Item Value Reference Range Interpretation Comme nts TOTAL PROTEIN (test code = PROT) 7.6 G/DL 6.4-8.2 N ALBUMIN (test code = ALB) 3.0 G/DL 3.4-5.0 L BILIRUBIN TOTAL (test code = BILT) 0.50 MG/DL 0.2-1.2 N BILIRUBIN DIRECT (test code = BILD) < 0.10 MG/DL 0.00-0.30 N BILIRUBIN INDIRECT (test cod e = BILIND) 0.40 MG/DL 0.2-1.2 N SGOT/AST (test code = AST) 29 Unit/L 15-37 N SGPT/ALT (test code = ALT) 26 Unit/L 12-78 N ALKALINE PHOSPHATASE TOTAL ( test code = ALKP) 104 Unit/L 50-136 N Completed by Nursing: [id number] 01:44:00* Test Item Value Reference Range Interpretation Comme nts LIPASE (test code = LIP) 45 Unit/L 114-286 L Completed by Nursing: [id number] 01:44:00* Test Item Value Reference Range Interpretation Comme nts TROPONIN-I (test code = TROPI) < 0.015 NG/ML 0.000-0.045 N Negative: </= 0. 045 Positive: >/= 0.046 Correlation with serial results, other cardiac markers, and clinical findings is necessary to determine the clinical significance of this result. Quantitative results using different methodologies should not be compared to one another as numerical results may varyby method. Completed by Nursing: YUNIBASIC METABOLIC [id number] 01:37:00* Test Item Value Reference Range Interpretation Comme nts SODIUM (test code = NA) 139 mmol/L 134-147 N POTASSIUM (test code = K) 4.7 mmol/L 3.4-5.0 N CHLORIDE (test code = CL) 103 mmol/L 100-108 N CARBON DIOXIDE (test code = CO2) 24 mmol/L 21-32 N ANION GAP (test code = GAP) 12.0 GAP calc 4.0-15.0 N GLUCOSE (test code = GLU) 293 MG/DL 70-110 H BLOOD UREA NITROGEN (test co de = BUN) 43 MG/DL 7-18 H GLOMERULAR FILTRATION RATE (test code = GFR) estGFR >60 CREATININE (test code = CREAT) MG/DL 0.8-1.3 CALCIUM (test code = CA) 9.4 MG/DL 8.5-10.1 N Completed by Nursing: YUNIHEPATIC FUNCTION [id number] 01:37:00* Test Item Value Reference Range Interpretation Comme nts TOTAL PROTEIN (test code = PROT) G/DL 6.4-8.2 ALBUMIN (test code = ALB) G/DL 3.4-5.0 BILIRUBIN TOTAL (test code = BILT) MG/DL 0.2-1.2 BILIRUBIN DIRECT (test code = BILD) MG/DL 0.00-0.30 BILIRUBIN INDIRECT (test cod e = BILIND) MG/DL 0.2-1.2 SGOT/AST (test code = AST) Unit/L 15-37 SGPT/ALT (test code = ALT) Unit/L 12-78 ALKALINE PHOSPHATASE TOTAL ( test code = ALKP) Unit/L 50-136 Completed by Nursing: [id number] 01:37:00* Test Item Value Reference Range Interpretation Comme nts LIPASE (test code = LIP) 45 Unit/L 114-286 L Completed by Nursing: [id number] 01:37:00* Test Item Value Reference Range Interpretation Comme nts TROPONIN-I (test code = TROPI) NG/ML 0.000-0.045 Completed by Nursing: NOCBC W/AUTO [id number] 01:30:00* Test Item Value Reference Range Interpretation Comme nts WHITE BLOOD CELL (test code = WBC) 12.4 K/mm3 3.5-11.0 H RED BLOOD CELL (test code = RBC) 4.23 M/mm3 4.70-6.10 L HEMOGLOBIN (test code = HGB) 11.3 G/DL 12.3-15.9 L HEMATOCRIT (test code = HCT) 34.2 % 35.8-46.7 L MEAN CELL VOLUME (test code = MCV) 80.9 Fl 86.3-98.9 L MEAN CELL HGB (test code = MCH) 26.7 pg 28.9-34.4 L MEAN CELL HGB CONCETRATION ( test code = MCHC) 33.0 G/DL 32.1-34.5 N RED CELL DISTRIBUTION WIDTH (test code = RDW) 14.9 SD 11.5-14.5 H PLATELET COUNT (test code = PLT) 367.0 K/mm3 150-450 N MEAN PLATELET VOLUME (test c ode = MPV) 10.30 fL 7.0-9.6 H NEUTROPHIL % (test code = NT%) 86.5 % 40-76 H LYMPHOCYTE % (test code = LY%) 10.7 % 20.5-51.1 L MONOCYTE % (test code = MO%) 2.6 % 1.7-9.3 N EOSINOPHIL % (test code = EO%) 0.1 % 0.0-6.0 N BASOPHIL % (test code = BA%) 0.1 % 0.0-2.0 N NEUTROPHIL # (test code = NT#) 10.71 K/mm3 1.8-7.6 H LYMPHOCYTE # (test code = LY#) 1.3 K/mm3 0.6-3.0 N MONOCYTE # (test code = MO#) 0.3 K/mm3 0.2-1.5 N EOSINOPHIL # (test code = EO#) 0.0 K/mm3 0.0-0.4 N BASOPHIL # (test code = BA#) 0.0 K/mm3 0.0-0.2 N MANUAL DIFF REQUIRED (test c ode = MDIFF) NO DIFF/SCN CRITERIA GLUCOSE BEDSIDE [id number] 13:17:00* Test Item Value Reference Range Interpretation Comme nts GLUCOSE BEDSIDE TESTING (nate t code = GLUBED) 171 mg/dL 70-110 H SURGICAL [id number] 08:34:00 RUN DATE: 06/22/19 [facility] *LIVE* PAGE 1 RUN TIME: 0835 Specimen Inquiry RUN USER: INTERFACE ------- -----PATIENT: DUSTY FRANCOIS LOC: [facility] U #: [id number] AGE/SX: 58/M ROOM: [facility] RE06/15/19REG DR: Kyung Bedoya : 64 BED: 1 DIS: 06/18/19 STATUS: DIS IN TLOC: SPEC #: [id number] RECD: 06/19/19 STATUS: SOUAsya REQ #: [id number] LUCINA: 06/19/[address]: Kyung Bedoya MD ENTERED: 06/22/19 SP TYPE: SURG SPEC OTHR DR: Self Referred Gideon Teran MD, Tammi R DO Shabaneh, Bahaeddin A MD Terminella, Luigi MDORDERED: GM LEVEL 4 CODES: [id number] - PLEURAL FLUID COPIES TO: Self Referred Gideon Teran MD [address] [place] [address] Kyung Bedoya MD [address] [place] [address] Shawanda Wild DO [address] [place] [address] Jennifer Gonzalez MD [address] [place] [address] Antoine Lee MD [address] [place] [address] [address] [address] PROCEDURES: GM LEVEL 4 (Incomplete) TISSUES: 1. PLEURAL FLUID, NOS - Pleural fluid, right, cytology CONTINUED ON NEXT PAGE RUN DATE: 06/22/19 [facility] *LIVE* PAGE 2 RUN TIME: 834 Specimen Inquiry RUN USER: INTERFACE SPEC #: [id number] PATIENT: DUSTY FRANCOIS #[id number] (Continued) FINAL DIAGNOSIS Pleural cavity, thoracentesis (cytospin smears and cell block section): No cells are diagnostic of malignancy; atypical cells favor reactive mesothelial cells. GROSS AND MICROSCOPIC GROSS DESCRIPTION: Received are 50 cc of yellow greenish right pleural fluid for cytologic evaluation. MICROSCOPIC EXAMINATION: The cytology preparations (cytospins and cell block section) reveal proteinaceous fluid, a few inflammatory cells, and atypical cells favor reactive mesothelial cells. * Note: Clinical history provided insufficient to compare clinical impression with final path dx. POST-OP DIAGNOSIS None given PRE-OP DIAGNOSIS Pleural effusion REVIEWED BY: Signed SIGNATURE ON FILE Beck Garrett MD 06/22/19 0834 -- END OF REPORT GLUCOSE BEDSIDE [id number] 08:20:00* Test Item Value Reference Range Interpretation Comme nts GLUCOSE BEDSIDE TESTING (nate t code = GLUBED) 171 mg/dL 70-110 H BASIC METABOLIC [id number] 03:52:00* Test Item Value Reference Range Interpretation Comme nts SODIUM (test code = NA) 143 mmol/L 134-147 N POTASSIUM (test code = K) 4.2 mmol/L 3.4-5.0 N CHLORIDE (test code = CL) 105 mmol/L 100-108 N CARBON DIOXIDE (test code = CO2) 31 mmol/L 21-32 N ANION GAP (test code = GAP) 7.0 GAP calc 4.0-15.0 N GLUCOSE (test code = GLU) 137 MG/DL 70-110 H BLOOD UREA NITROGEN (test code = BUN) 25 MG/DL 7-18 H GLOMERULAR FILTRATION RATE (test code = GFR) >=60 max estimate estGFR >60 CREATININE (test code = CREAT) 1.5 MG/DL 0.8-1.3 H CALCIUM (test code = CA) 8.4 MG/DL 8.5-10.1 L CBC W/AUTO [id number] 03:40:00* Test Item Value Reference Range Interpretation Comme nts WHITE BLOOD CELL (test code = WBC) 8.4 K/mm3 3.5-11.0 N RED BLOOD CELL (test code = RBC) 2.97 M/mm3 4.70-6.10 L HEMOGLOBIN (test code = HGB) 8.1 G/DL 12.3-15.9 L HEMATOCRIT (test code = HCT) 25.6 % 35.8-46.7 L MEAN CELL VOLUME (test code = MCV) 86.2 Fl 86.3-98.9 L MEAN CELL HGB (test code = MCH) 27.3 pg 28.9-34.4 L MEAN CELL HGB CONCETRATION ( test code = MCHC) 31.6 G/DL 32.1-34.5 L RED CELL DISTRIBUTION WIDTH (test code = RDW) 14.1 SD 11.5-14.5 N PLATELET COUNT (test code = PLT) 436.0 K/mm3 150-450 N MEAN PLATELET VOLUME (test c ode = MPV) 8.60 fL 7.0-9.6 N NEUTROPHIL % (test code = NT%) 68.3 % 40-76 N LYMPHOCYTE % (test code = LY%) 19.8 % 20.5-51.1 L MONOCYTE % (test code = MO%) 8.0 % 1.7-9.3 N EOSINOPHIL % (test code = EO%) 3.8 % 0.0-6.0 N BASOPHIL % (test code = BA%) 0.1 % 0.0-2.0 N NEUTROPHIL # (test code = NT#) 5.75 K/mm3 1.8-7.6 N LYMPHOCYTE # (test code = LY#) 1.7 K/mm3 0.6-3.0 N MONOCYTE # (test code = MO#) 0.7 K/mm3 0.2-1.5 N EOSINOPHIL # (test code = EO#) 0.3 K/mm3 0.0-0.4 N BASOPHIL # (test code = BA#) 0.0 K/mm3 0.0-0.2 N MANUAL DIFF REQUIRED (test c ode = MDIFF) NO DIFF/SCN CRITERIA GLUCOSE BEDSIDE [id number] 20:05:00* Test Item Value Reference Range Interpretation Comme nts GLUCOSE BEDSIDE TESTING (nate t code = GLUBED) 132 mg/dL 70-110 H GLUCOSE BEDSIDE [id number] 17:18:00* Test Item Value Reference Range Interpretation Comme nts GLUCOSE BEDSIDE TESTING (nate t code = GLUBED) 121 mg/dL 70-110 H GLUCOSE BEDSIDE [id number] 12:32:00* Test Item Value Reference Range Interpretation Comme nts GLUCOSE BEDSIDE TESTING (nate t code = GLUBED) 164 mg/dL 70-110 H - XR CHEST 1 [id number] 11:52:00Name: DUSTY FRANCOIS [place] : 1960 Age/S: 58 / M [address] Unit #: [id number] Loc: [place] [address] Phys: Jamie Edwards MD Acct: [id number] Dis Date: Status: ADM IN PHON E #: [phone] Exam Date: 06/21/2019 1130 FAX #: Reason: SOb EXAMS: CPT: [id number] XR CHEST 1 [id number] Fluoro Time: DAP (Gy m2): Air Kerma (mGy): HISTORY: Shortness of breath Comparison to 2018 Location code: B2 FINDINGS: Frontal view of the chest demonstrates normal cardiomediastinalsilhouette. The trachea is midline. Central venous congestion with mild alveolar edema. There is a small layering left effusion with atelectasis. No pneumothorax. The bones are intact. IMPRESSION: Mild pulmonary edema with a small layering left effusion and atelectasis. at 1152 Reported and signed by: Horacio Edwards M.D. CC: Jamie Leo; Shawanda Hancock DO PAGE 1 Signed Report Name: DUSTY FRANCOIS [place] : 1960 Age/S: 58 / M [address] Unit #: [id number] Loc: [place] [address] Phys: Jamie Edwards MDAcct: [id number] Dis Date: Status: ADM IN PHONE #: [phone] Exam Date: 06/21/2019 1130 FAX #:Reason: SOb EXAMS: CPT: [id number] XR CHEST 1 V 69988 Fluoro Time: DAP (Gy m2): Air Kerma (mGy): <Continued> Technologist: Melisa Wyman RT(R)(CT) Trnscb Date/Time: 06/21/2019 (5042) [id number] Orig Print D/T: S: 06/21/2019 (9246) PAGE 2 Signed ReportGLUCOSE BEDSIDE [id number] 08:50:00* Test Item Value Reference Range Interpretation Comme nts GLUCOSE BEDSIDE TESTING (nate t code = GLUBED) 132 mg/dL 70-110 H [id number] 04:49:00* Test Item Value Reference Range Interpretation Comme [facility] TROPONIN-I (test code = TROPI) 0.399 NG/ML 0.000-0.045 HH Negative: </= 0. 045 Positive: >/= 0.046 Correlation with serial results, other cardiac markers, and clinical findings is necessary to determine the clinical significance of this result. Quantitative results using different methodologies should not be compared to one another as numerical results may varyby method. BASIC METABOLIC [id number] 04:04:00* Test Item Value Reference Range Interpretation Comme nts SODIUM (test code = NA) 142 mmol/L 134-147 N POTASSIUM (test code = K) 4.3 mmol/L 3.4-5.0 N CHLORIDE (test code = CL) 107 mmol/L 100-108 N CARBON DIOXIDE (test code = CO2) 30 mmol/L 21-32 N ANION GAP (test code = GAP) 5.0 GAP calc 4.0-15.0 N GLUCOSE (test code = GLU) 181 MG/DL 70-110 H BLOOD UREA NITROGEN (test co de = BUN) 28 MG/DL 7-18 H GLOMERULAR FILTRATION RATE ( test code = GFR) 58 estGFR >60 L CREATININE (test code = CREAT) 1.6 MG/DL 0.8-1.3 H CALCIUM (test code = CA) 8.2 MG/DL 8.5-10.1 L CBC W/AUTO [id number] 03:56:00* Test Item Value Reference Range Interpretation Comme nts WHITE BLOOD CELL (test code = WBC) 8.9 K/mm3 3.5-11.0 N RED BLOOD CELL (test code = RBC) 2.53 M/mm3 4.70-6.10 L HEMOGLOBIN (test code = HGB) 6.8 G/DL 12.3-15.9 L HEMATOCRIT (test code = HCT) 21.4 % 35.8-46.7 L MEAN CELL VOLUME (test code = MCV) 84.6 Fl 86.3-98.9 L MEAN CELL HGB (test code = MCH) 26.9 pg 28.9-34.4 L MEAN CELL HGB CONCETRATION ( test code = MCHC) 31.8 G/DL 32.1-34.5 L RED CELL DISTRIBUTION WIDTH (test code = RDW) 14.0 SD 11.5-14.5 N PLATELET COUNT (test code = PLT) 415.0 K/mm3 150-450 N MEAN PLATELET VOLUME (test c ode = MPV) 8.70 fL 7.0-9.6 N NEUTROPHIL % (test code = NT%) 67.2 % 40-76 N LYMPHOCYTE % (test code = LY%) 19.1 % 20.5-51.1 L MONOCYTE % (test code = MO%) 9.5 % 1.7-9.3 H EOSINOPHIL % (test code = EO%) 4.1 % 0.0-6.0 N BASOPHIL % (test code = BA%) 0.1 % 0.0-2.0 N NEUTROPHIL # (test code = NT#) 5.99 K/mm3 1.8-7.6 N LYMPHOCYTE # (test code = LY#) 1.7 K/mm3 0.6-3.0 N MONOCYTE # (test code = MO#) 0.9 K/mm3 0.2-1.5 N EOSINOPHIL # (test code = EO#) 0.4 K/mm3 0.0-0.4 N BASOPHIL # (test code = BA#) 0.0 K/mm3 0.0-0.2 N MANUAL DIFF REQUIRED (test c ode = MDIFF) NO DIFF/SCN CRITERIA PROCALCITONIN (PCT)2019-06-21 02:54:00* Test Item Value Reference Range Interpretation Comme nts PROCALCITONIN (PCT) (test code = PROCAL) < 0.05 ng/mL 0.00-0.05 N PROCALCITON IN (PCT) NORMAL RANGE (ADULT): <0.05 NG/ML. * a concentration <0.5 ng/mL represents a low risk of severe sepsis and/or septic shock.* a concentration >2 ng/mL represents a high risk of severe sepsis and/or septic shock.Nevertheless, concentrations <0.5 ng/mL do not exclude aninfection, on account of localized infections (withoutsystemic signs) which can be associated with such lowconcentrations, or a systemic infection in its initialstages (< 6 hours). Furthermore, increased procalcitonincan occur without infection. PCT concentrations between 0.5and 2.0 ng/mL should be interpreted taking into account thepatient's history. It is recommended to retest PCT within6-24 hours if any concentrations <2 ng/mL are obtained. PROCALCITONIN (PCT)2019-06-21 02:54:00* Test Item Value Reference Range Interpretation Comme nts PROCALCITONIN (PCT) (test code = PROCAL) < 0.05 ng/mL 0.00-0.05 PROCALCITON IN (PCT) NORMAL RANGE (ADULT): <0.05 NG/ML. * a concentration <0.5 ng/mL represents a low risk of severe sepsis and/or septic shock.* a concentration >2 ng/mL represents a high risk of severe sepsis and/or septic shock.Nevertheless, concentrations <0.5 ng/mL do not exclude aninfection, on account of localized infections (withoutsystemic signs) which can be associated with such lowconcentrations, or a systemic infection in its initialstages (< 6 hours). Furthermore, increased procalcitonincan occur without infection. PCT concentrations between 0.5and 2.0 ng/mL should be interpreted taking into account thepatient's history. It is recommended to retest PCT within6-24 hours if any concentrations <2 ng/mL are obtained. GLUCOSE BEDSIDE [id number] 20:25:00* Test Item Value Reference Range Interpretation Comme [facility] GLUCOSE BEDSIDE TESTING (nate t code = GLUBED) 175 mg/dL 70-110 H CBC W/AUTO [id number] 15:54:00* Test Item Value Reference Range Interpretation Comme nts WHITE BLOOD CELL (test code = WBC) 8.2 K/mm3 3.5-11.0 N RED BLOOD CELL (test code = RBC) 2.86 M/mm3 4.70-6.10 L HEMOGLOBIN (test code = HGB) 7.7 G/DL 12.3-15.9 L HEMATOCRIT (test code = HCT) 24.7 % 35.8-46.7 L MEAN CELL VOLUME (test code = MCV) 86.4 Fl 86.3-98.9 N MEAN CELL HGB (test code = MCH) 26.9 pg 28.9-34.4 L MEAN CELL HGB CONCETRATION (test code = MCHC) 31.2 G/DL 32.1-34.5 L RED CELL DISTRIBUTION WIDTH (test code = RDW) 14.0 SD 11.5-14.5 N PLATELET COUNT (test code = PLT) 377.0 K/mm3 150-450 N MEAN PLATELET VOLUME (test code = MPV) 9.10 fL 7.0-9.6 N NEUTROPHIL % (test code = NT%) 70.1 % 40-76 N LYMPHOCYTE % (test code = LY%) 17.3 % 20.5-51.1 L MONOCYTE % (test code = MO%) 7.8 % 1.7-9.3 N EOSINOPHIL % (test code = EO%) 4.4 % 0.0-6.0 N BASOPHIL % (test code = BA%) 0.4 % 0.0-2.0 N NEUTROPHIL # (test code = NT#) 5.77 K/mm3 1.8-7.6 N LYMPHOCYTE # (test code = LY#) 1.4 K/mm3 0.6-3.0 N MONOCYTE # (test code = MO#) 0.6 K/mm3 0.2-1.5 N EOSINOPHIL # (test code = EO#) 0.4 K/mm3 0.0-0.4 N BASOPHIL # (test code = BA#) 0.0 K/mm3 0.0-0.2 N MANUAL DIFF REQUIRED (test code = MDIFF) NO DIFF/SCN CRITERIA SLIDE REVIEW CONSISTANT WITH AUTO DIFFERENTIAL. GLUCOSE BEDSIDE [id number] 15:47:00* Test Item Value Reference Range Interpretation Comme nts GLUCOSE BEDSIDE TESTING (nate t code = GLUBED) 246 mg/dL 70-[id number] 15:01:00* Test Item Value Reference Range Interpretation Comme nts FLUID SOURCE (test code = SOURCEFL) PLEURAL FLUID The test results must be integrated into the clinicalcontext for interpretation. FLUID COLOR (test code = COLFL) Yellow FLUID APPEARANCE (test code = APPFL) CLOUDY FLUID WBC AUTO (test code = WBCFLA) 172 cells/uL 0-500 N FLUID RBC AUTO (test code = RBCFLA) < 2000 cells/uL <=100,000 N FLUID POLY (test code = POLYFL) 12 % FLUID LYMPHOCYTE (test code = LYMPHFL) 66 % FLUID MONOCYTE (test code = MONOFL) 1 % FLUID MACROPHAGE (test code = MACFL) 21 % FLUID MESOTHELIAL (test code = MESFL) % MANY MESOTHELIAL CELLS FLUID COMMENT (test code = COMFL) PATHOLOGIST REVIEW Comment PLEURAL FLUIDCOMPREHENSIVE METABOLIC [id number] 14:26:00* Test Item Value Reference Range Interpretation Comme nts SODIUM (test code = NA) 139 mmol/L 134-147 N POTASSIUM (test code = K) 4.4 mmol/L 3.4-5.0 N CHLORIDE (test code = CL) 106 mmol/L 100-108 N CARBON DIOXIDE (test code = CO2) 26 mmol/L 21-32 N ANION GAP (test code = GAP) 7.0 GAP calc 4.0-15.0 N GLUCOSE (test code = GLU) 247 MG/DL 70-110 H BLOOD UREA NITROGEN (test co de = BUN) 27 MG/DL 7-18 H GLOMERULAR FILTRATION RATE ( test code = GFR) 58 estGFR >60 L CREATININE (test code = CREAT) 1.6 MG/DL 0.8-1.3 H TOTAL PROTEIN (test code = PROT) 6.2 G/DL 6.4-8.2 L ALBUMIN (test code = ALB) 1.8 G/DL 3.4-5.0 L GLOBULIN (test code = GLOB) 4.4 GM/dL ALBUMIN/GLOBULIN RATIO (test code = A/G) 0.4 RATIO 1.2-2.2 L CALCIUM (test code = CA) 8.3 MG/DL 8.5-10.1 L BILIRUBIN TOTAL (test code = BILT) 0.20 MG/DL 0.2-1.2 N SGOT/AST (test code = AST) 40 Unit/L 15-37 H SGPT/ALT (test code = ALT) 42 Unit/L 12-78 N ALKALINE PHOSPHATASE TOTAL ( test code = ALKP) 71 Unit/L 50-136 N [id number] 14:26:00* Test Item Value Reference Range Interpretation Comme nts PHOSPHOROUS (test code = PHOS) 3.9 MG/DL 2.5-4.9 N [id number] 14:26:00* Test Item Value Reference Range Interpretation Comme nts MAGNESIUM (test code = MAG) 1.8 MG/DL 1.8-2.4 N CBC W/AUTO [id number] 14:05:00* Test Item Value Reference Range Interpretation Comme nts WHITE BLOOD CELL (test code = WBC) 8.2 K/mm3 3.5-11.0 N RED BLOOD CELL (test code = RBC) 2.86 M/mm3 4.70-6.10 L HEMOGLOBIN (test code = HGB) 7.7 G/DL 12.3-15.9 L HEMATOCRIT (test code = HCT) 24.7 % 35.8-46.7 L MEAN CELL VOLUME (test code = MCV) 86.4 Fl 86.3-98.9 N MEAN CELL HGB (test code = MCH) 26.9 pg 28.9-34.4 L MEAN CELL HGB CONCETRATION ( test code = MCHC) 31.2 G/DL 32.1-34.5 L RED CELL DISTRIBUTION WIDTH (test code = RDW) 14.0 SD 11.5-14.5 N PLATELET COUNT (test code = PLT) 377.0 K/mm3 150-450 N MEAN PLATELET VOLUME (test c ode = MPV) 9.10 fL 7.0-9.6 N NEUTROPHIL % (test code = NT%) % 40-76 N LYMPHOCYTE % (test code = LY%) % 20.5-51.1 L MONOCYTE % (test code = MO%) % 1.7-9.3 N EOSINOPHIL % (test code = EO%) % 0.0-6.0 N BASOPHIL % (test code = BA%) % 0.0-2.0 N NEUTROPHIL # (test code = NT#) K/mm3 1.8-7.6 N LYMPHOCYTE # (test code = LY#) K/mm3 0.6-3.0 N MONOCYTE # (test code = MO#) K/mm3 0.2-1.5 N EOSINOPHIL # (test code = EO#) K/mm3 0.0-0.4 N BASOPHIL # (test code = BA#) K/mm3 0.0-0.2 N MANUAL DIFF REQUIRED (test c ode = MDIFF) DIFF/SCN CRITERIA GLUCOSE BEDSIDE [id number] 11:57:00* Test Item Value Reference Range Interpretation Comme nts GLUCOSE BEDSIDE TESTING (nate t code = GLUBED) 267 mg/dL 70-110 H GLUCOSE BEDSIDE [id number] 08:15:00* Test Item Value Reference Range Interpretation Comme nts GLUCOSE BEDSIDE TESTING (nate t code = GLUBED) 156 mg/dL 70-110 H - XR CHEST 1 [id number] 07:24:00Name: DUSTY FRANCOIS [place] : 1960 Age/S: 58 / M [address] Unit #: [id number] Loc: [place] [address] Phys: Hunter Shell MD Acct: [id number] Dis Date: Status: ADM IN PHONE #: [phone] Exam Date: 06/20/2019 0641 FAX #: Reason: dyspnea EXAMS: CPT: [id number] XR CHEST 1V 50247 Fluoro Time: DAP (Gy m2): Air Kerma (mGy): EXAM: - XR CHEST 1 V Location code:C3 HISTORY: dyspnea COMPARISON: 06/19/2019 FINDINGS: Single AP view of the chest is provided. Patchy bilateral pulmonary opacities have progressed. There is no pneumothorax. No additional interval change. IMPRESSION: 1. Bilateral pulmonary opacities possibly due to edema have progressed. Electronically Signedby Zion Quirso MD on 06/20/2019 at 0724 Reported and signed by: Zion Quiros MD CC: Hunter Shell MD; Jamie Edwards MD; Shawanda Wild DO PAGE 1 Signed Report Name: DUSTY FRANCOIS [place] : 1960 Age/S: 58 / M [address] Unit #: [id number] Loc: [place] [address] Phys: Hunter Shell MD Acct: [id number] Dis Date: Status: ADM IN PHONE #:[phone] Exam Date: 06/20/2019 0641 FAX #: Reason: dyspnea EXAMS: CPT: [id number] XR CHEST 1 V 13347 Fluoro Time: DAP (Gy m2): Air Kerma (mGy): <Continued> Technologist: Pancho Rhoades RT(R)(CT)Trnscb Date/Time: 06/20/2019 (0724) [id number] Orig Print D/T: S: 06/20/2019 (3788) PAGE 2 Signed ReportRENAL FUNCTION [id number] 07:14:00* Test Item Value Reference Range Interpretation Comme nts SODIUM (test code = NA) 149 mEq/L 134-147 H POTASSIUM (test code = K) 4.4 mEq/L 3.4-5.0 N CHLORIDE (test code = CL) 110 mEq/L 100-108 H CARBON DIOXIDE (test code = CO2) 29 mEq/L 21-33 N ANION GAP (test code = GAP) 14 0-20 N GLUCOSE (test code = GLU) 93 mg/dL 70-110 N BLOOD UREA NITROGEN (test code = BUN) 32 mg/dL 7-18 H GLOMERULAR FILTRATION RATE (test code = GFR) 50.7 90-95 L Units of measure = ml/min/1.73 m2 CREATININE (test code = CREAT) 1.7 mg/dL 0.6-1.3 H ALBUMIN (test code = ALB) 1.90 g/dL 3.4-5.0 L CALCIUM (test code = CA) 8.5 mg/dL 8.0-10.5 N PHOSPHOROUS (test code = PHOS) 4.5 mg/dL 2.5-4.9 N TOTAL IRON BINDING [id number] 07:14:00* Test Item Value Reference Range Interpretation Comme nts SERUM IRON (test code = IRON) 21 mcg/dL 35-150 L TOTAL IRON BINDING CAPACITY (test code = TIBC) 174 mcg/dL 260-445 L UIBC (test code = UIBC) 153 mcg/dL IRON SATURATION (test code = FESAT) 12.1 % 14-34 L [id number] 07:14:00* Test Item Value Reference Range Interpretation Comme nts TRANSFERRRIN (test code = TRANSF) <10 mg/dL 200-370 A Performed At: [address] [id number] Hamlin MD Ph:[phone] [id number] 07:14:00* Test Item Value Reference Range Interpretation Comme nts FERRITIN (test code = REBEKAH) 314.9 ng/mL 23.9-336.2 N GLUCOSE BEDSIDE [id number] 20:18:00* Test Item Value Reference Range Interpretation Comme nts GLUCOSE BEDSIDE TESTING (nate t code = GLUBED) 99 mg/dL 70-110 N GLUCOSE BEDSIDE [id number] 16:08:00* Test Item Value Reference Range Interpretation Comme nts GLUCOSE BEDSIDE TESTING (nate t code = GLUBED) 159 mg/dL 70-110 H TROPONIN I [id number] 15:40:00* Test Item Value Reference Range Interpretation Comme nts TROPONIN I RAPID (test code = TROPIRAP) 0.70 ng/mL 0.00-0.08 HH Results above 0.08 are consistent with NACB IFCCCommittee recommendations to use the 99th percentile of anormal population as a reference decision-limit. - The use of serial sampling and testingprotocol is arecommended practice.- An elevated troponinlevel alone is often not sufficientfor diagnosis of myocardial infraction. FLUID [id number] 15:09:00* Test Item Value Reference Range Interpretation Comme nts FLUID PH (test code = PHFL) 8.0 Not Estab. This test was de veloped and its performance characteristicsdetermined by [employer]. It has not been cleared orapproved by the Food and Drug Administration.Performed At: [address] [id number] Hamlin MD Ph:[phone] COMMENTS: PLEURAL FLUID PHFLUID [id number] 15:09:00* Test Item Value Reference Range Interpretation Comme nts FLUID GLUCOSE (test code = GLUFL) 158 MG/DL () Reference interv als and other method performancespecifications have not been established for this test. Thetest result should be integrated into the clinical contextfor interpretation. COMMENTS: PLEURAL FLUID PHFLUID [id number] 15:09:00* Test Item Value Reference Range Interpretation Comme nts FLUID PROTEIN (test code = PROTFL) < 2.0 G/DL () COMMENTS: PLEURAL FLUID PHFLUID [id number] 15:09:00* Test Item Value Reference Range Interpretation Comme nts FLUID LDH (test code = LDHFL) 499 UNITS/L 50-1500 Reference interv als and other method performancespecifications have not been established for this test. Thetest result should be integrated into the clinical contextfor interpretation. COMMENTS: PLEURAL FLUID PH- CT CHEST [id number] 08:31:00Name: DUSTY FRANCOIS [place] : 1960 Age/S: 58 / M [address] Unit #: [id number] Loc: [place] [address] Phys: Mark Torres MD Acct: [id number] Dis Date: Status: ADM IN PHONE #: [phone] Exam Date: 06/19/2019801 FAX #: Reason: rule out PE EXAMS: CPT: [id number] CT CHEST W/CONTRAST 16837 EXAMINATION: - CT CHEST W/CONTRAST. LOCATION: T18. HISTORY: Rule out PE, hypoxia, pulmonary edema, HTN, CAD. COMPARISON: Chest CT 06/15/2019. TECHNIQUE: CTA of the chest is performed after intravenous administration of 100 cc of Isovue-370 using pulmonary embolism protocol. MIP images are obtained. One or more the following dose reduction techniques were used: Automated exposure control, adjustment of mA and/or kV according to patient size, and use of iterative reconstruction technique. FINDINGS: Partially visualized thyroid gland appears unremarkable. VASCULATURE: There is normal enhancement of the main, lobar and segmental pulmonary arteries. There are no filling defects to suggest a pulmonary embolism. LYMPH NODES: No axillary, mediastinal or hilar bulky lymphadenopathy is identified. MEDIASTINUM: No mediastinal mass is noted. No aneurysmal dilatation of thoracic aorta. Coronary arterial stent noted. Enlargement of heart. PLEURA/PERICARDIUM: No pericardial effusion. Moderate bilateral pleural effusions. LUNGS/AIRWAYS: The trachea and central bronchi are patent. No pneumothorax. Pulmonary vascular congestion with regions of more focal airspace opacities. OSSEOUS STRUCTURES: Visualized osseous structures demonstrate mild degenerative changes. UPPER ABDOMEN:Visualized portion of the upper abdominal viscera appear unremarkable. Patulous esophagus. Anasarca. IMPRESSION: No CTA evidence to suggest a pulmonary embolism. PAGE 1 Signed Report (CONTINUED) Name: DUSTY FRANCOIS : 1960 Age/S: 58 / M [address] Unit #: [id number] Loc: [facility] [address] Phys: Mark Torres MD Acct: [id number] Dis Date: Status: ADM IN PHONE #: [phone] Exam Date: 06/19/2019 0802 FAX #: Reason: rule out PE EXAMS: CPT: [id number] CT CHEST W/CONTRAST 59273 <Continued> Bilateral moderate pleural effusions and pulmonary vascular congestion with regions of more focal airspace opacities, superimposed infectious process should be excluded clinically. Patulous esophagus. Enlarged heart. at 0831 Reported and signed by: Courtney Adhikari M.D. CC: Mark Torres MD; Jamie Edwards MD; Shawanda Wild DO Technologist:Jolie Muñoz RT(R); Alex CTDI: DLP: Trnscb Date/Time: 06/19/2019 (830) [email or web address] Orig Print D/T: S: 06/19/2019 (833) PAGE 2 Signed [id number] 08:25:00* Test Item Value Reference Range Interpretation Comme nts TROPONIN-I (test code = TROPI) 0.699 NG/ML 0.000-0.045 Negative: </= 0. 045 Positive: >/= 0.046 Correlation with serial results, other cardiac markers, and clinical findings is necessary to determine the clinical significance of this result. Quantitative results using different methodologies should not be compared to one another as numerical results may varyby method. Completed by Nursing: NOGLUCOSE BEDSIDE [id number] 07:54:00* Test Item Value Reference Range Interpretation Comme nts GLUCOSE BEDSIDE TESTING (nate t code = GLUBED) 106 mg/dL 70-110 N [id number] 07:00:00* Test Item Value Reference Range Interpretation Comme nts D-DIMER (test code = DDIMER) 1953 ng/mLFEU 215-500 HH BASIC METABOLIC [id number] 05:22:00* Test Item Value Reference Range Interpretation Comme nts SODIUM (test code = NA) 141 mmol/L 134-147 N POTASSIUM (test code = K) 4.5 mmol/L 3.4-5.0 N CHLORIDE (test code = CL) 108 mmol/L 100-108 N CARBON DIOXIDE (test code = CO2) 26 mmol/L 21-32 N ANION GAP (test code = GAP) 7.0 GAP calc 4.0-15.0 N GLUCOSE (test code = GLU) 105 MG/DL 70-110 N BLOOD UREA NITROGEN (test co de = BUN) 28 MG/DL 7-18 H GLOMERULAR FILTRATION RATE ( test code = GFR) 58 estGFR >60 L CREATININE (test code = CREAT) 1.6 MG/DL 0.8-1.3 H CALCIUM (test code = CA) 8.3 MG/DL 8.5-10.1 L Completed by Nursing: [id number] 05:22:00* Test Item Value Reference Range Interpretation Comme nts TROPONIN-I (test code = TROPI) 0.735 NG/ML 0.000-0.045 HH Negative: </= 0. 045 Positive: >/= 0.046 Correlation with serial results, other cardiac markers, and clinical findings is necessary to determine the clinical significance of this result. Quantitative results using different methodologies should not be compared to one another as numerical results may varyby method. Completed by Nursing: NOCREATINE KINASE (CK)2019-06-19 05:07:00* Test Item Value Reference Range Interpretation Comme nts CREATINE KINASE (CK) (test c ode = CK) 607 Unit/L 26-192 H NT PRO-BRAIN NATRIURETIC [id number] 05:07:00* Test Item Value Reference Range Interpretation Comme nts NT PRO-BRAIN NATRIURETIC PEP TI (test code = PROBNP) 6115 PG/ML 0-100 H BASIC METABOLIC [id number] 05:02:00* Test Item Value Reference Range Interpretation Comme nts SODIUM (test code = NA) 141 mmol/L 134-147 N POTASSIUM (test code = K) 4.5 mmol/L 3.4-5.0 N CHLORIDE (test code = CL) 108 mmol/L 100-108 N CARBON DIOXIDE (test code = CO2) 26 mmol/L 21-32 N ANION GAP (test code = GAP) 7.0 GAP calc 4.0-15.0 N GLUCOSE (test code = GLU) 105 MG/DL 70-110 N BLOOD UREA NITROGEN (test co de = BUN) 28 MG/DL 7-18 H GLOMERULAR FILTRATION RATE ( test code = GFR) estGFR >60 CREATININE (test code = CREAT) MG/DL 0.8-1.3 CALCIUM (test code = CA) 8.3 MG/DL 8.5-10.1 L Completed by Nursing: [id number] 05:02:00* Test Item Value Reference Range Interpretation Comme nts TROPONIN-I (test code = TROPI) NG/ML 0.000-0.045 Completed by Nursing: NOCBC W/O [id number] 04:33:00* Test Item Value Reference Range Interpretation Comme nts WHITE BLOOD CELL (test code = WBC) 10.2 K/mm3 3.5-11.0 N RED BLOOD CELL (test code = RBC) 2.82 M/mm3 4.70-6.10 L HEMOGLOBIN (test code = HGB) 7.6 G/DL 12.3-15.9 L HEMATOCRIT (test code = HCT) 24.2 % 35.8-46.7 L MEAN CELL VOLUME (test code = MCV) 85.8 Fl 86.3-98.9 L MEAN CELL HGB (test code = MCH) 27.0 pg 28.9-34.4 L MEAN CELL HGB CONCETRATION ( test code = MCHC) 31.4 G/DL 32.1-34.5 L RED CELL DISTRIBUTION WIDTH (test code = RDW) 14.0 SD 11.5-14.5 N PLATELET COUNT (test code = PLT) 486.0 K/mm3 150-450 H MEAN PLATELET VOLUME (test c ode = MPV) 8.90 fL 7.0-9.6 N - XR CHEST 1 [id number] 04:16:00Name: DUSTY FRANCOIS [facility] : 1960 Age/S: 58 / M [address] Unit #: [id number] Loc: [place] [address] Phys: Luis Snowden MD Acct: [id number] Dis Date: Status: REG ER PHONE #: [phone] Exam Date: 06/19/2019 0412 FAX #: Reason: cough EXAMS: CPT: [id number] XR CHEST 1 [id number] Fluoro Time: DAP (Gy m2): Air Kerma (mGy): AFTER HOURS SERVICE ON: 06/19/2019 4:15 AM AP Portable Chest Location Code M12 HISTORY: cough FINDINGS: There stable mild pulmonary vascular congestioncompared to 06/18/2019 chest x-ray. Right axilla is mildly enlarged. There is no significant pleural effusion. There is no pneumothorax. IMPRESSION: Stable mild pulmonary vascular congestion. at 0416 Reported and signed by: Maldonado Rivera M.D. CC: Luis Snowden MD; Shawanda Wild DO PAGE 1 Signed Report Name: DUSTY FRANCOIS [place] : 1960 Age/S: 58 / M [address] Unit #: [id number] Loc: [place] [address] Phys: Luis Snowden MD Acct: [id number] Dis Date: Status: REG ER PHONE #: [phone] Exam Date: 06/19/2019411 FAX #: Reason: cough EXAMS: CPT: [id number] XR CHEST 1 V 72619 Fluoro Time: DAP (Gy m2): Air Kerma (mGy): <Continued> Technologist: Manny Jaffe, RT(R)(CT); ... Trnscb Date/Time: 06/19/2019 (415) [email or web address] Orig Print D/T: S: 06/19/2019 (041) PAGE 2 Signed [id number] 12:45:00* Test Item Value Reference Range Interpretation Comme nts GLUBED (test code = GLUBED) 137 MG/DL 70-110 H Performed by cer [employer] tar heater operator at [facility] [id number] 08:06:00* Test Item Value Reference Range Interpretation Comme nts GLUBED (test code = GLUBED) 87 MG/DL 70-110 N Performed by [employer] tar heater operator at [facility] RENAL FUNCTION [id number] 08:01:00* Test Item Value Reference Range Interpretation Comme nts SODIUM (test code = NA) 149 mEq/L 134-147 H POTASSIUM (test code = K) 4.4 mEq/L 3.4-5.0 N CHLORIDE (test code = CL) 110 mEq/L 100-108 H CARBON DIOXIDE (test code = CO2) 29 mEq/L 21-33 N ANION GAP (test code = GAP) 14 0-20 N GLUCOSE (test code = GLU) 93 mg/dL 70-110 N BLOOD UREA NITROGEN (test code = BUN) 32 mg/dL 7-18 H GLOMERULAR FILTRATION RATE (test code = GFR) 50.7 90-95 L Units of measure = ml/min/1.73 m2 CREATININE (test code = CREAT) 1.7 mg/dL 0.6-1.3 H ALBUMIN (test code = ALB) 1.90 g/dL 3.4-5.0 L CALCIUM (test code = CA) 8.5 mg/dL 8.0-10.5 N PHOSPHOROUS (test code = PHOS) 4.5 mg/dL 2.5-4.9 N TOTAL IRON BINDING [id number] 08:01:00* Test Item Value Reference Range Interpretation Comme nts SERUM IRON (test code = IRON) 21 mcg/dL 35-150 L TOTAL IRON BINDING CAPACITY (test code = TIBC) 174 mcg/dL 260-445 L UIBC (test code = UIBC) 153 mcg/dL IRON SATURATION (test code = FESAT) 12.1 % 14-34 L [id number] 08:01:00* Test Item Value Reference Range Interpretation Comme nts TRANSFERRRIN (test code = TRANSF) [id number] 08:01:00* Test Item Value Reference Range Interpretation Comme nts FERRITIN (test code = REBEKAH) 314.9 ng/mL 23.9-336.2 N - XR CHEST 1 [id number] 07:37:00FAX: Pravin Simmons [phone] [place]: St: ADM FAX: Dora Bedoya [phone] FAX: Shawanda Wild [phone] Name: DUSTY FRANCOIS [facility]: 1960 Age/S: 58/M [address] Unit #: [id number] Loc: [facility] [place] [address] Phys: Pravin Malhotra MD Acct: [id number] Dis Date: Status: ADM IN PHONE #: [phone] Exam Date: 06/18/2019 0657 FAX #: [phone] Reason: pl effusion EXAMS: CPT CODE: [id number] XR CHEST 1 V 30133 EXAM: Single view AP chest. EXAM DATE: 06/18/2019 at 0553 hours CLINICAL HISTORY: pl effusion COMPARISON: June 16, 2019 at 1504 hours Stable cardiomegaly is noted. Mild haziness noted over the right lung with mild increased interstitial markings suggestive of edema. Small pleural effusion cannot be excluded. The left lung demonstrates basilar atelectatic changes. Visualized osseous structures demonstrate no acute abnormalities. IMPRESSION: Stable cardiomegaly. Continued mild fluid overload and probable small right pleural effusionpresent. Hypoventilatory changes left lung base. at 0737 Reported and signed by: Cynthia Quezada M.D. CC: Pravin Malhotra MD; Kyung Bedoya MD; Shawanda Wild DO Technologist: Karina Dotson, RT(R); Cathy George, RT(R) Trnscrd Date/Time/By: 06/18/2019 (0737) : By: Go Orig Print D/T: S: 06/18/2019 (0740) PAGE 1 Signed ReportGLUBED 2019-06-18 01:02:00* Test Item Value Reference Range Interpretation Comme nts GLUBED (test code = GLUBED) 178 MG/DL 70-110 H Performed by cer tified tar heater operator at [facility] [id number] 17:36:00* Test Item Value Reference Range Interpretation Comme nts GLUBED (test code = GLUBED) 205 MG/DL 70-110 H Performed by cer tified tar heater operator at [facility] [id number] 15:09:00* Test Item Value Reference Range Interpretation Comme nts GLUBED (test code = GLUBED) 168 MG/DL 70-110 H Performed by cer tified tar heater operator at [facility] BASIC METABOLIC [id number] 08:19:00* Test Item Value Reference Range Interpretation Comme nts SODIUM (test code = NA) 143 mEq/L 134-147 N POTASSIUM (test code = K) 4.0 mEq/L 3.4-5.0 N CHLORIDE (test code = CL) 110 mEq/L 100-108 H CARBON DIOXIDE (test code = CO2) 27 mEq/L 21-33 N ANION GAP (test code = GAP) 10 0-20 N GLUCOSE (test code = GLU) 111 mg/dL 70-110 H BLOOD UREA NITROGEN (test code = BUN) 34 mg/dL 7-18 H GLOMERULAR FILTRATION RATE (test code = GFR) 50.7 90-95 L Units of measure = ml/min/1.73 m2 CREATININE (test code = CREAT) 1.7 mg/dL 0.6-1.3 H CALCIUM (test code = CA) 8.5 mg/dL 8.0-10.5 N [id number] 08:19:00* Test Item Value Reference Range Interpretation Comme nts PHOSPHOROUS (test code = PHOS) 3.8 mg/dL 2.5-4.9 N [id number] 08:19:00* Test Item Value Reference Range Interpretation Comme nts MAGNESIUM (test code = MAG) 2.10 mg/dL 1.8-2.4 N [id number] 08:03:00* Test Item Value Reference Range Interpretation Comme nts GLUBED (test code = GLUBED) 100 MG/DL 70-110 N Performed by cer tified tar heater operator at [facility] CBC W/AUTO [id number] 07:38:00* Test Item Value Reference Range Interpretation Comme nts WHITE BLOOD CELL (test code = WBC) 8.62 x10 3/uL 4.5-11.0 N RED BLOOD CELL (test code = RBC) 2.64 x10 6/uL 4.00-5.60 L HEMOGLOBIN (test code = HGB) 7.1 g/dL 12.5-16.9 L HEMATOCRIT (test code = HCT) 23.0 % 37.5-50.7 L MEAN CELL VOLUME (test code = MCV) 87.1 fL 81.0-99.0 N MEAN CELL HGB (test code = MCH) 26.9 pg 27.0-33.0 L MEAN CELL HGB CONCETRATION (test code = MCHC) 30.9 g/dL 33.0-37.0 L RED CELL DISTRIBUTION WIDTH CV (test code = RDW) 13.7 % 11.5-14.5 N RED CELL DISTRIBUTION WIDTH SD (test code = RDW-SD) 43.2 fL 37.0-54.0 N PLATELET COUNT (test code = PLT) 425 x10 3/uL 150-400 H MEAN PLATELET VOLUME (test c ode = MPV) 9.4 fL 7.0-9.0 H NEUTROPHIL % (test code = NT%) 69.9 % 56.0-77.0 N IMMATURE GRANULOCYTE % (test code = IG%) 0.5 % 0.0-2.0 N LYMPHOCYTE % (test code = LY%) 19.0 % 14.0-32.0 N MONOCYTE % (test code = MO%) 7.4 % 4.8-9.0 N EOSINOPHIL % (test code = EO%) 3.1 % 0.3-3.7 N BASOPHIL % (test code = BA%) 0.1 % 0.0-2.0 N NUCLEATED RBC % (test code = NRBC%) 0.0 % 0-0 N NEUTROPHIL # (test code = NT#) 6.02 x10 3/uL 2.0-7.6 N IMMATURE GRANULOCYTE # (test code = IG#) 0.04 x10 3/uL 0.00-0.03 H LYMPHOCYTE # (test code = LY#) 1.64 x10 3/uL 1.0-3.8 N MONOCYTE # (test code = MO#) 0.64 x10 3/uL 0.1-0.8 N EOSINOPHIL # (test code = EO#) 0.27 x10 3/uL 0.0-0.2 H BASOPHIL # (test code = BA#) 0.01 x10 3/uL 0.0-0.2 N NUCLEATED RBC # (test code = NRBC#) 0.00 x10 3/uL 0.0-0.1 N MANUAL DIFF REQUIRED (test c ode = MDIFF) NO FLUID [id number] 06:24:00* Test Item Value Reference Range Interpretation Comme nts FLUID PH (test code = PHFL) COMMENTS: PLEURAL FLUID PHFLUID [id number] 06:24:00* Test Item Value Reference Range Interpretation Comme nts FLUID GLUCOSE (test code = GLUFL) 158 MG/DL () Reference interv als and other method performancespecifications have not been established for this test. Thetest result should be integrated into the clinical contextfor interpretation. COMMENTS: PLEURAL FLUID PHFLUID [id number] 06:24:00* Test Item Value Reference Range Interpretation Comme nts FLUID PROTEIN (test code = PROTFL) < 2.0 G/DL () COMMENTS: PLEURAL FLUID PHFLUID [id number] 06:24:00* Test Item Value Reference Range Interpretation Comme nts FLUID LDH (test code = LDHFL) 499 UNITS/L 50-1500 Reference interv als and other method performancespecifications have not been established for this test. Thetest result should be integrated into the clinical contextfor interpretation. COMMENTS: PLEURAL FLUID PHFLUID [id number] 06:23:00* Test Item Value Reference Range Interpretation Comme nts FLUID GLUCOSE (test code = GLUFL) 158 MG/DL Reference interv als and other method performancespecifications have not been established for this test. Thetest result should be integrated into the clinical contextfor interpretation. COMMENTS: PLEURAL FLUID PHFLUID [id number] 06:23:00* Test Item Value Reference Range Interpretation Comme nts FLUID PROTEIN (test code = PROTFL) < 2.0 G/DL COMMENTS: PLEURAL FLUID PHFLUID [id number] 06:23:00* Test Item Value Reference Range Interpretation Comme nts FLUID LDH (test code = LDHFL) 499 UNITS/L 50-1500 N Reference interv als and other method performancespecifications have not been established for this test. Thetest result should be integrated into the clinical contextfor interpretation. COMMENTS: PLEURAL FLUID [id number] 21:06:00* Test Item Value Reference Range Interpretation Comme nts GLUBED (test code = GLUBED) 194 MG/DL 70-110 H Performed by cer tified tar heater operator at [facility] BODY FLUID CELL [id number] 16:51:00* Test Item Value Reference Range Interpretation Comme nts FLUID SOURCE (test code = SOURCEFL) PLEURAL FLUID The test results must be integrated into the clinicalcontext for interpretation. FLUID COLOR (test code = COLFL) Yellow FLUID APPEARANCE (test code = APPFL) CLOUDY FLUID WBC AUTO (test code = WBCFLA) 172 cells/uL 0-500 N FLUID RBC AUTO (test code = RBCFLA) < 2000 cells/uL <=100,000 N FLUID POLY (test code = POLYFL) 12 % FLUID LYMPHOCYTE (test code = LYMPHFL) 66 % FLUID MONOCYTE (test code = MONOFL) 1 % FLUID MACROPHAGE (test code = MACFL) 21 % FLUID MESOTHELIAL (test code = MESFL) % MANY MESOTHELIAL CELLS FLUID COMMENT (test code = COMFL) PATHOLOGIST REVIEW Comment PLEURAL FLUIDBODY FLUID CELL [id number] 15:57:00* Test Item Value Reference Range Interpretation Comme nts FLUID SOURCE (test code = SOURCEFL) FLUID COLOR (test code = COLFL) FLUID APPEARANCE (test code = APPFL) FLUID WBC AUTO (test code = WBCFLA) 172 cells/uL 0-500 N FLUID RBC AUTO (test code = RBCFLA) < 2000 cells/uL <=100,000 N FLUID POLY (test code = POLYFL) % FLUID LYMPHOCYTE (test code = LYMPHFL) % PLEURAL FLUID- XR CHEST 1 [id number] 15:08:00FAX: Dora Bedoya [phone] [place]: St: ADM FAX: Alise Barr PA-C FAX: Shawanda Wild [phone] Name: DUSTY FRANCOIS [facility] : 1960 Age/S: 58/M [address] [place] [address] Unit #: [id number] Loc: [address] [place] [address] Phys: Alise Barr PA-C Acct: [id number] Dis Date: Status: ADM IN PHONE #: [phone] Exam Date: 06/16/2019 1507 FAX #: [phone] Reason: POST RIGHT THORACENTESIS UNDER ULTRASOUND DEE EXAMS: CPT CODE: [id number] XR CHEST 1 V 01773 EXAM: XR CHEST 1 VIEW DATE: 06/16/2019 2:53 PM : 1960; Age: 58 years y/o Male INDICATION: POST RIGHT THORACENTESIS UNDER ULTRASOUND GUIDANCE COMPARISON: June 15, 2019 TECHNIQUE: AP chest. FINDINGS/ IMPRESSION: Lines, tubes and hardware: None. Heart, mediastinum and lungs: The heart size is enlarged but unchanged.Vascular calcifications are present at the aorta. Pulmonary vascularity is normal. Status post right thoracentesis without right pneumothorax. Interval near complete clearing of right pleural effusion is seen. Trace bilateral pleural effusions. SL: [id number] at 1508 Reported and signed by: Bertrand Stone D.O. CC: Kyung Bedoya MD; Alise Barr; Shawnada Wild DO Technologist: RT Dimitrios(Kinga) Trnscrd Date/Time/By: 06/16/2019 (1508) : By: [email or web address] Orig Print D/T: S: 06/16/2019 (7149) PAGE 1Signed Report- US ABDOMEN [id number] 15:05:00Name: DUSTY FRANCOIS [facility] : 1960 Age/S: 58 / M [address] [place] [address] Blvd Unit #: [id number] Loc: [place] [address] Phys: Kyung Bedoya MD Acct: [id number] Dis Date: Status: ADM IN PHONE #: [phone] Exam Date: 06/16/2019 1454 FAX #: [phone] Reason: THORACENTESIS, RIGHT EFFUSION EXAMS: CPT CODE: [id number] US ABDOMEN LTD 26297 EXAM: US ABDOMEN LIMITED Ultrasound-guided right thoracentesis. INDICATION: Large pleural effusion. COMPARISON: CT June 15, 2019 TECHNIQUE: Ultrasound interrogation of the right posterior thorax shows large pleural effusion. The procedure, risks, benefits and alternatives were discussed. Informed consent was obtained. Timeout wasperformed prior to the procedure. The technical component of this study was performed by directly supervised physician law office assistant. The technical report is available in the electronic medical record. Findings: Total volume of 1100 cc of clear yellow pleural fluid was removed. IMPRESSION: 1. Large right pleural effusion. 2. Technically successful ultrasound-guided thoracentesis. at 1505 Reported and signed by: Bertrand Stone D.O. 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 INDICATION: Large pleural effusion. COMPARISON: CT June 15, 2019 TECHNIQUE: Ultrasound interrogation of the right posterior thorax shows large pleural effusion. The procedure, risks, benefits and alternatives were discussed. Informed consent was obtained. Timeout was performed prior to the procedure. The technical component of this study was performed by directly supervisedphysician law office assistant. The technical report is available in the electronic medical record. Findings: Total volume of 1100 cc of clear yellow pleural fluid was removed. IMPRESSION: 1. Large right pleural effusion. 2. Technically successful ultrasound-guided thoracentesis. at 1505 Reported and signed by: Bertrand Stone D.O. CC: Kyung Bedoya MD; Shawanda Wild DO; Koko Chung NP Technologist: Mone Alston Trnnyb Date/Time: 06/16/2019 (4788) [email or web address] Orig Print D/T: S: 06/16/2019 (9284) Probe: PAGE 1 [id number] 12:13:00* Test Item Value Reference Range Interpretation Comme nts GLUBED (test code = GLUBED) 119 MG/DL 70-110 H Performed by cer nikia tar heater operator at [facility] BASIC METABOLIC [id number] 08:19:00* Test Item Value Reference Range Interpretation Comme nts SODIUM (test code = NA) 140 mEq/L 134-147 N POTASSIUM (test code = K) 4.4 mEq/L 3.4-5.0 N CHLORIDE (test code = CL) 109 mEq/L 100-108 H CARBON DIOXIDE (test code = CO2) 26 mEq/L 21-33 N ANION GAP (test code = GAP) 9 0-20 N GLUCOSE (test code = GLU) 129 mg/dL 70-110 H BLOOD UREA NITROGEN (test code = BUN) 34 mg/dL 7-18 H GLOMERULAR FILTRATION RATE (test code = GFR) 44.6 90-95 L Units of measure = ml/min/1.73 m2 CREATININE (test code = CREAT) 1.9 mg/dL 0.6-1.3 H CALCIUM (test code = CA) 8.6 mg/dL 8.0-10.5 N [id number] 08:19:00* Test Item Value Reference Range Interpretation Comme nts PHOSPHOROUS (test code = PHOS) 3.5 mg/dL 2.5-4.9 N [id number] 08:19:00* Test Item Value Reference Range Interpretation Comme nts MAGNESIUM (test code = MAG) 2.30 mg/dL 1.8-2.4 N CBC W/AUTO [id number] 07:55:00* Test Item Value Reference Range Interpretation Comme nts WHITE BLOOD CELL (test code = WBC) 9.51 x10 3/uL 4.5-11.0 N RED BLOOD CELL (test code = RBC) 2.75 x10 6/uL 4.00-5.60 L HEMOGLOBIN (test code = HGB) 7.4 g/dL 12.5-16.9 L HEMATOCRIT (test code = HCT) 23.9 % 37.5-50.7 L MEAN CELL VOLUME (test code = MCV) 86.9 fL 81.0-99.0 N MEAN CELL HGB (test code = MCH) 26.9 pg 27.0-33.0 L MEAN CELL HGB CONCETRATION (test code = MCHC) 31.0 g/dL 33.0-37.0 L RED CELL DISTRIBUTION WIDTH CV (test code = RDW) 13.9 % 11.5-14.5 N RED CELL DISTRIBUTION WIDTH SD (test code = RDW-SD) 43.5 fL 37.0-54.0 N PLATELET COUNT (test code = PLT) 465 x10 3/uL 150-400 H MEAN PLATELET VOLUME (test c ode = MPV) 9.6 fL 7.0-9.0 H NEUTROPHIL % (test code = NT%) 68.5 % 56.0-77.0 N IMMATURE GRANULOCYTE % (test code = IG%) 0.4 % 0.0-2.0 N LYMPHOCYTE % (test code = LY%) 17.8 % 14.0-32.0 N MONOCYTE % (test code = MO%) 8.9 % 4.8-9.0 N EOSINOPHIL % (test code = EO%) 4.2 % 0.3-3.7 H BASOPHIL % (test code = BA%) 0.2 % 0.0-2.0 N NUCLEATED RBC % (test code = NRBC%) 0.0 % 0-0 N NEUTROPHIL # (test code = NT#) 6.51 x10 3/uL 2.0-7.6 N IMMATURE GRANULOCYTE # (test code = IG#) 0.04 x10 3/uL 0.00-0.03 H LYMPHOCYTE # (test code = LY#) 1.69 x10 3/uL 1.0-3.8 N MONOCYTE # (test code = MO#) 0.85 x10 3/uL 0.1-0.8 H EOSINOPHIL # (test code = EO#) 0.40 x10 3/uL 0.0-0.2 H BASOPHIL # (test code = BA#) 0.02 x10 3/uL 0.0-0.2 N NUCLEATED RBC # (test code = NRBC#) 0.00 x10 3/uL 0.0-0.1 N MANUAL DIFF REQUIRED (test c ode = MDIFF) NO [id number] 21:36:00* Test Item Value Reference Range Interpretation Comme nts GLUBED (test code = GLUBED) 155 MG/DL 70-110 H Performed by cer nikia tar heater operator at [facility] - CT CHEST W/O [id number] 14:01:00Name: DUSTY FRANCOIS [facility] : 1960 Age/S: 58 / M [address] [place] [address] Unit #: [id number] Loc: [place] [address] Phys: Kyung Bedoya MD Acct: [id number] Dis Date: Status: ADM IN PHONE #: [phone] Exam Date: 06/15/2019 1230 FAX #: [phone] Reason: FU CXR EXAMS: CPT CODE: [id number] CT CHEST W/O CONTRAST [address]5917 STUDY: - CT CHEST W/O CONTRAST 06/15/2019 11:43 AM Ordering Physician: Kyung Bedoya MD Patient Name: DUSTY FRANCOIS MR: [id number] : 1960; Age: 58 years y/o Male Clinical Indication: FU CXR Comparison: June 15, 2019 x-ray TECHNIQUE: Multiple contiguous transaxial noncontrast CT images were obtained through the chest. Sagittal andcoronal reformatted images were prepared. DOSE: CT imaging performed at this location utilizes radiation dose optimization technique which includes one or more of the followin) Automated exposurecontrol; 2) Adjustment of the mA and/or kV according to patient's size; 3) Use of iterative reconstruction techniques. DLP (mGy-cm): 376 FINDINGS: LUNGS: Groundglass opacities in bilateral upper lobes with areas of septal thickening are noted. Large right pleural effusion with compressive partial at electasis in the right lower lobe. Small left pleural effusion. No pneumothorax. AIRWAY: Clear central tracheobronchial tree. HEART: Mild cardiomegaly with coronary artery calcifications. Small pericardial effusion. THORACIC AORTA: Normal caliber nonopacified thoracic aorta. PULMONARY ARTERIES: Nonopacified. MEDIASTINUM AND DILIP: No hilar or mediastinal lymphadenopathy. VISUALIZED UPPER ABDOMEN: No significant abnormality. SOFT TISSUES: No suspicious soft tissue lesion or abnormality. OSSEOUS STRUCTURES: No fracture, dislocation, or suspicious focal osseous lesion. PAGE 1 Signed Report (CONTINUED) Name: DUSTY FRANCOIS [facility] : 1960 Age/S: 58 / M [address] [place] [address] Blvd Unit #: [id number] Loc: [place] [address] Phys: Kyung Bedoya MD Acct: [id number] Dis Date:Status: ADM IN PHONE #: [phone] Exam Date: 06/15/2019 1230 FAX #: [phone] Reason: FU CXREXAMS: CPT CODE: [id number] CT CHEST W/O CONTRAST 62883 (Continued) IMPRESSION: 1. Large right pleural effusion and small left pleural effusion. 2. Groundglass opacities in the bilateral upper lobes,representing pulmonary edema or atypical infection. SL: [id number] at 1401 Reported and signed by: Amadou Vizcaino M.D. CC: Kyung Bedoya MD; [facility] Technologist:RT Tory(R) CTDI: DLP: Trnscb Date/Time: 06/15/2019 (1401) [email or web address] Orig Print D/T: S: 06/15/2019 (1404) PAGE 2 Signed ReportPROCALCITONIN (PCT)2019-06-15 09:51:00* Test Item Value Reference Range Interpretation Comme nts PROCALCITONIN (PCT) (test code = PROCAL) 0.15 ng/mL 0.00-0.05 H PROCALCITON IN (PCT) NORMAL RANGE (ADULT): <0.05 NG/ML. * a concentration <0.5 ng/mL represents a low risk of severe sepsis and/or septic shock.* a concentration >2 ng/mL represents a high risk of severe sepsis and/or septic shock.Nevertheless, concentrations <0.5 ng/mL do not exclude aninfection, on account of localized infections (withoutsystemic signs) which can be associated with such lowconcentrations, or a systemic infection in its initialstages (< 6 hours). Furthermore, increased procalcitonincan occur without infection. PCT concentrations between 0.5and 2.0 ng/mL should be interpreted taking into account thepatient's history. It is recommended to retest PCT within6-24 hours if any concentrations <2 ng/mL are obtained. [id number] 09:40:00* Test Item Value Reference Range Interpretation Comme nts TROPONIN-I (test code = TROPI) 1.770 ng/mL 0.000-0.045 HH Negative: <= 0.0 45 Positive: >= 0.046 Correlation with serial results, other cardiac markers andclinical findings is necessary to determine the clinicalsignificance of this result. Results using different methodologies should not be comparedto one another as quantitative results may vary by method. COMMENTS: 3 troponins total (including troponin done in ED)LIPOPROTEIN LDL 2019-06-15 07:47:00* Test Item Value Reference Range Interpretation Comme nts LIPOPROTEIN LDL (test code = LDL) 71 mg/dL 0-100 N <100 [id number] 0-129 NEAR OPTIMAL/ABOVE [id number] HIGH>YL=065 VERY HIGH*Guidelines provided by the National Cholesterol EducationProgram Adult Treatment Panel III URINALYSIS [id number] 07:34:00* Test Item Value Reference Range Interpretation Comme nts UA COLOR (test code = COLU) YELLOW YEL/STRAW UA APPEARANCE (test code = APPU) SL CLOUDY CLEAR UA GLUCOSE DIPSTICK (test co de = DGLUU) NEGATIVE NEGATIVE UA BILIRUBIN DIPSTICK (test code = BILU) NEGATIVE NEGATIVE UA KETONE DIPSTICK (test cod e = KETU) NEGATIVE NEGATIVE UA SPECIFIC GRAVITY (test co de = SGU) 1.015 1.005-1.030 N UA BLOOD DIPSTICK (test code = ESMER) 2+ NEGATIVE A UA PH DIPSTICK (test code = ALICIA) 5.0 5.0-7.0 N UA PROTEIN DIPSTICK (test co de = PROU) 2+ NEGATIVE A UA UROBILINIOGEN DIPSTICK (t est code = URO) 0.2 mg/dL 0.2-1.0 UA NITRITE DIPSTICK (test co de = BROOKLYNN) NEGATIVE NEGATIVE UA LEUKOCYTE ESTERASE DIPSTI CK (test code = LEUU) NEGATIVE NEGATIVE UA WBC (test code = WBCU) 0-3 WBC/HPF 0-3 UA RBC (test code = RBCU) 0-3 RBC/HPF 0-3 UA BACTERIA (test code = BACU) TRACE /HPF NONE SEEN UA SQUAMOUS CELLS (test code = SQU) 0-5 /HPF NONE SEEN UA HYALINE CAST (test code = HYALU) 11-20 /LPF NONE SEEN UA MUCUS (test code = MUCU) TRACE /LPF NONE SEEN COMMENTS: Triston [id number] 07:24:00* Test Item Value Reference Range Interpretation Comme nts TROPONIN-I (test code = TROPI) 1.990 ng/mL 0.000-0.045 HH Negative: <= 0.0 45 Positive: >= 0.046 Correlation with serial results, other cardiac markers andclinical findings is necessary to determine the clinicalsignificance of this result. Results using different methodologies should not be comparedto one another as quantitative results may vary by method. COMMENTS: 3 troponins total (including troponin done in ED)B-TYPE NATRIURETIC [id number] 04:46:00* Test Item Value Reference Range Interpretation Comme nts B-TYPE NATRIURETIC PEPTIDE ( test code = BNP) 630.4 PG/ML 0-100 H HEPATIC FUNCTION [id number] 04:35:00* Test Item Value Reference Range Interpretation Comme nts TOTAL PROTEIN (test code = PROT) 6.2 g/dL 6.4-8.2 L ALBUMIN (test code = ALB) 1.80 g/dL 3.4-5.0 L BILIRUBIN TOTAL (test code = BILT) 0.10 mg/dL 0.0-1.0 N BILIRUBIN DIRECT (test code = BILD) < 0.10 MG/DL 0.0-0.30 N BILIRUBIN INDIRECT (test cod e = BILIND) 0.00 MG/DL SGOT/AST (test code = AST) 61 IUnit/L 15-37 H SGPT/ALT (test code = ALT) 45 IUnit/L 15-65 N ALKALINE PHOSPHATASE TOTAL ( test code = ALKP) 53 IUnit/L 20-125 N [id number] 04:35:00* Test Item Value Reference Range Interpretation [facility] LIPASE (test code = LIP) 55 IUnit/L 73-393 L [id number] 04:35:00* Test Item Value Reference Range Interpretation [facility] MAGNESIUM (test code = MAG) 2.10 mg/dL 1.8-2.4 N ARTERIAL BLOOD [id number] 04:29:00* Test Item Value Reference Range Interpretation [facility] ARTERIAL BLOOD GAS PH (test code = PHA) 7.408 7.35-7.45 N ARTERIAL BLOOD GAS PCO2 (nate t code = PCO2A) 35.7 mmHg 35-45 N ARTERIAL BLOOD GAS PO2 (test code = PO2A) 71 mmHg 80-100 L BICARBONATE TOTAL HCO3 (test code = HCO3) 22.5 mmol/L 22.0-26.0 N BASE EXCESS (test code = BARBRA) -2.0 mmol/L -4-4 N ABG O2 SATURATION (test code = SATA) 94 % 90-100 N ABG DELIVERY (test code = MEGA) Cannula ABG TEMPERATURE (test code = TEMPA) 98.6 F ABG SITE (test code = SITEA) R Rad TCO2 ARTERIAL (test code = TCO2A) 24 PROTHROMBIN [id number] 04:22:00* Test Item Value Reference Range Interpretation [facility] PROTHROMBIN TIME PATIENT (test code = PTP) 12.3 SECONDS 9.3-12.9 N INTERNATIONAL NORMAL RATIO (test code = INR) 1.1 0.8-1.2 N TARGET INR BY INDICATION Indication INR1. Prophylaxis of venous thrombosis 2.0 - 3.0 (orthopedic surgery), Prophylaxis of venous thrombosis (other than high-risk surgery), Treatment of Deep Vein Thrombosis/Pulmonary Embolism, Prevention of systemic embolism - Tissue heart valves, Acute Myocardial Infarction (to prevent systemic embolism), Valvular heart disease, Atrial Fibrillation, Bileaflet mechanical valve in aortic position.2. Mechanical prosthetic valves (high risk), 2.5 - 3.5 Presence of Lupus Anticoagulant or Antiphospholipid Antibodies, Prevention of systemic embolism - Acute Myocardial Infarction (to prevent recurrent infarct). THROMBOPLASTIN TIME [id number] 04:22:00* Test Item Value Reference Range Interpretation Comme nts THROMBOPLASTIN TIME PARTIAL (test code = PTT) 30.3 Seconds 25.0-39.5 N Therapeutic Rang e: 50.4 - 88.3 Seconds Effective 02/28/2019 CBC W/AUTO [id number] 04:13:00* Test Item Value Reference Range Interpretation Comme nts WHITE BLOOD CELL (test code = WBC) 10.52 x10 3/uL 4.5-11.0 N RED BLOOD CELL (test code = RBC) 2.94 x10 6/uL 4.00-5.60 L HEMOGLOBIN (test code = HGB) 7.8 g/dL 12.5-16.9 L HEMATOCRIT (test code = HCT) 25.0 % 37.5-50.7 L MEAN CELL VOLUME (test code = MCV) 85.0 fL 81.0-99.0 N MEAN CELL HGB (test code = MCH) 26.5 pg 27.0-33.0 L MEAN CELL HGB CONCETRATION (test code = MCHC) 31.2 g/dL 33.0-37.0 L RED CELL DISTRIBUTION WIDTH CV (test code = RDW) 13.6 % 11.5-14.5 N RED CELL DISTRIBUTION WIDTH SD (test code = RDW-SD) 42.5 fL 37.0-54.0 N PLATELET COUNT (test code = PLT) 509 x10 3/uL 150-400 H MEAN PLATELET VOLUME (test code = MPV) 9.6 fL 7.0-9.0 H NEUTROPHIL % (test code = NT%) 70.4 % 56.0-77.0 N IMMATURE GRANULOCYTE % (test code = IG%) 0.6 % 0.0-2.0 N LYMPHOCYTE % (test code = LY%) 15.9 % 14.0-32.0 N MONOCYTE % (test code = MO%) 8.4 % 4.8-9.0 N EOSINOPHIL % (test code = EO%) 4.5 % 0.3-3.7 H BASOPHIL % (test code = BA%) 0.2 % 0.0-2.0 N NUCLEATED RBC % (test code = NRBC%) 0.0 % 0-0 N NEUTROPHIL # (test code = NT#) 7.42 x10 3/uL 2.0-7.6 N IMMATURE GRANULOCYTE # (test code = IG#) 0.06 x10 3/uL 0.00-0.03 H LYMPHOCYTE # (test code = LY#) 1.67 x10 3/uL 1.0-3.8 N MONOCYTE # (test code = MO#) 0.88 x10 3/uL 0.1-0.8 H EOSINOPHIL # (test code = EO#) 0.47 x10 3/uL 0.0-0.2 H BASOPHIL # (test code = BA#) 0.02 x10 3/uL 0.0-0.2 N NUCLEATED RBC # (test code = NRBC#) 0.00 x10 3/uL 0.0-0.1 N MANUAL DIFF REQUIRED (test code = MDIFF) NO CHEMISTRY 8 [id number] 03:58:00* Test Item Value Reference Range Interpretation Comme nts ISTAT-SODIUM (test code = NAP) MMOL/L 134-147 ISTAT-POTASSIUM (test code = KP) MMOL/L 3.4-5.0 ISTAT-CHLORIDE (test code = CLP) MMOL/L 100-108 ISTAT CARBON DIOXIDE (test c ode = ISTAT-CO2) mmol/L 21-33 N ISTAT CALCIUM IONIZED (test code = ISTAT-KEY) MG/DL 1.12-1.32 ISTAT-GLUCOSE (test code = GLUP) MG/DL 70-110 N ISTAT-BUN (test code = BUNP) MG/DL 7-18 H BEDSIDE CREATININE (test cod e = CREATBED) MG/DL 0.6-1.3 H GLOMERULAR FILTRATION RATE P OC (test code = GFRBED) 38 ML/MIN CHEMISTRY 8 [id number] 03:58:00* Test Item Value Reference Range Interpretation Comme nts ISTAT-SODIUM (test code = NAP) 138 MMOL/L 134-147 N ISTAT-POTASSIUM (test code = KP) 4.5 MMOL/L 3.4-5.0 N ISTAT-CHLORIDE (test code = CLP) 105 MMOL/L 100-108 N Performed by certified tar heater operator at [facility] ISTAT CARBON DIOXIDE (test code = ISTAT-CO2) 24.0 mmol/L 21-33 N ISTAT CALCIUM IONIZED (test code = ISTAT-KEY) 1.17 MG/DL 1.12-1.32 N ISTAT-GLUCOSE (test code = GLUP) 89 MG/DL 70-110 N ISTAT-BUN (test code = BUNP) 30 MG/DL 7-18 H BEDSIDE CREATININE (test code = CREATBED) 2.3 MG/DL 0.6-1.3 H GLOMERULAR FILTRATION RATE POC (test code = GFRBED) 38 ML/MIN - XR CHEST 1 [id number] 03:54:00FAX: SooVeronicaShawanda Hancock Kinga [phone] [place]: St: REG FAX: Edgar Phillips MD [phone] --- Name: DUSTY FRANCOIS [facility] : 1960 Age/S: 58/M [address] [place] [address] Unit #: [id number] Loc: [address] [address] Phys: Edgar Cooper MD Acct: [id number] Dis Date: Status: REG ER PHONE #: Exam Date: 06/15/2019 034 FAX #: [phone] Reason: SOB EXAMS: CPT CODE: [id number] XR CHEST 1 V 32707 EXAM: CR, XR chest one view: 06/15/2019, 0317 hours HISTORY: SOB TECHNIQUE: 1 view of the chest. COMPARISON: 06/14/2019, 1006 hours FINDINGS: Trachea is midline. Cardiomediastinal silhouette and osseous structures are stable. Right pleural effusion improved since previous study. Right upper and lower lobe infiltrate are again defined, slightly improved on the right probably trace leftpleural effusion. There is no pneumothorax. Osseous structures are stable. IMPRESSION: 1. Right lung multifocal infiltrate with interval improvement in the right lower lobe infiltrate. 2. Small rightpleural effusion have improved. Probably trace left pleural effusion. SL: [[id number]-H] at 0354 Reported and signed by: Yakov Lemos M.D. CC: Shawanda Wild DO; Edgar Cooper MD Technologist: RT Mo(R) Trnscrd Date/Time/By: 06/15/2019 (0354) : By: [email or web address] Orig Print D/T: S: 06/15/2019 (0352) PAGE 1 Signed Report TROPONIN-I [id number] 03:21:00* Test Item Value Reference Range Interpretation Comme [facility] TROPONIN-I RAPID (test code = TROPIRAP) 1.21 ng/mL 0.00-0.08 HH Performed by [facility] tified tar heater operator at [facility] Negative: <= 0.08 Positive: >= 0.09An elevated troponin value alone is not sufficient todiagnose a myocardial infarction. Rather, the patient sclinical presentation (history, physical exam) and ECGshould be used in conjunction with troponin in thediagnostic evaluation of suspected myocardial infarction. Aserial sampling protocol is recommended to facilitate the identification of temporal changes in troponin levels characteristic of MN. LACTIC ACID [id number] 03:13:00* Test Item Value Reference Range Interpretation Comme [facility] LACTIC ACID POC (test code = LACTP) 1.0 MMOL/L 0.90-1.70 N Performed by certified tar heater operator at [facility] [id number] 11:42:00* Test Item Value Reference Range Interpretation Comme [facility] GLUBED (test code = GLUBED) 243 MG/DL 70-110 H Performed by cer tified tar heater operator at [facility] - XR CHEST 1 [id number] 11:37:00FAX: Dora Bedoya [phone] [place]: St: ADM FAX: Shawanda Wild [phone] ---- Name: DUSTY FRANCOIS [facility] : 1960 Age/S: 58/M [address] [place] [address] Blvd Unit #: [id number] Loc: [address] [place] [address] Phys: Kyung Bedoya MD Acct: [id number] Dis Date: Status: ADM IN PHONE #: [phone] Exam Date: 06/14/2019 1128 FAX #: [phone] Reason: FU PNA EXAMS: CPT CODE: [id number] XR CHEST 1 V 10717 Patient: DUSTY FRANCOIS. : 1960; Age: 58 years; Gender: Male. MR: [id number]. Ordering physician: Kyung Bedoya MD. PORTABLE CHEST AP: HISTORY: Pneumonia. COMPARISON: CT chest 06/06/2019, chest x-ray 06/08/2019. FINDINGS: Portable frontal view of the chest was obtained. There has been interval development of small volume right pleural effusion with worsening right lower lung pneumonic infiltrate. Additional subtle multifocal infiltrates also suspected bilaterally, unchanged. The cardiomediastinal silhouette and pulmonary vasculature are unremarkable. The partially visualized upper abdomen is unremarkable. IMPRESSION: Interval development of small volumeright pleural effusion with worsening right lower lung pneumonic infiltrate. Additional subtle multifocal infiltrates also suspected bilaterally, unchanged. SL: [id number] Electronically Signedby Margareth Banks on 06/14/2019 at 1137 Reported and signed by: Josias Banks M.D. CC: Kyung Bedoya MD; Shawanda Wild DO Technologist: RT Tyler(R) Trnscrd Date/Time/By: 06/14/2019 (1133) : By: [email or web address] Orig Print D/T: S: 06/14/2019 (5094) PAGE 1 Signed [id number] 09:04:00* Test Item Value Reference Range Interpretation Comme nts GLUBED (test code = GLUBED) 227 MG/DL 70-110 H Performed by cer tified tar heater operator at [facility] COMPREHENSIVE METABOLIC [id number] 08:16:00* Test Item Value Reference Range Interpretation Comme nts SODIUM (test code = NA) 140 mEq/L 134-147 N POTASSIUM (test code = K) 4.3 mEq/L 3.4-5.0 N CHLORIDE (test code = CL) 108 mEq/L 100-108 N CARBON DIOXIDE (test code = CO2) 26 mEq/L 21-33 N ANION GAP (test code = GAP) 10 0-20 N GLUCOSE (test code = GLU) 157 mg/dL 70-110 H BLOOD UREA NITROGEN (test code = BUN) 25 mg/dL 7-18 H GLOMERULAR FILTRATION RATE (test code = GFR) 42.0 90-95 L Units of measure = ml/min/1.73 m2 CREATININE (test code = CREAT) 2.0 mg/dL 0.6-1.3 H TOTAL PROTEIN (test code = PROT) 5.7 g/dL 6.4-8.2 L ALBUMIN (test code = ALB) 1.60 g/dL 3.4-5.0 L CALCIUM (test code = CA) 8.4 mg/dL 8.0-10.5 N BILIRUBIN TOTAL (test code = BILT) < 0.10 mg/dL 0.0-1.0 N SGOT/AST (test code = AST) 69 IUnit/L 15-37 H SGPT/ALT (test code = ALT) 46 IUnit/L 15-65 N ALKALINE PHOSPHATASE TOTAL (test code = ALKP) 61 IUnit/L 20-125 N [id number] 08:16:00* Test Item Value Reference Range Interpretation Comme nts PHOSPHOROUS (test code = PHOS) 3.7 mg/dL 2.5-4.9 N [id number] 08:16:00* Test Item Value Reference Range Interpretation Comme nts MAGNESIUM (test code = MAG) 2.20 mg/dL 1.8-2.4 N CBC W/AUTO [id number] 07:16:00* Test Item Value Reference Range Interpretation Comme nts WHITE BLOOD CELL (test code = WBC) 8.00 x10 3/uL 4.5-11.0 N RED BLOOD CELL (test code = RBC) 2.70 x10 6/uL 4.00-5.60 L HEMOGLOBIN (test code = HGB) 7.3 g/dL 12.5-16.9 L HEMATOCRIT (test code = HCT) 23.5 % 37.5-50.7 L MEAN CELL VOLUME (test code = MCV) 87.0 fL 81.0-99.0 N MEAN CELL HGB (test code = MCH) 27.0 pg 27.0-33.0 N MEAN CELL HGB CONCETRATION (test code = MCHC) 31.1 g/dL 33.0-37.0 L RED CELL DISTRIBUTION WIDTH CV (test code = RDW) 13.6 % 11.5-14.5 N RED CELL DISTRIBUTION WIDTH SD (test code = RDW-SD) 43.0 fL 37.0-54.0 N PLATELET COUNT (test code = PLT) 429 x10 3/uL 150-400 H MEAN PLATELET VOLUME (test c ode = MPV) 10.1 fL 7.0-9.0 H NEUTROPHIL % (test code = NT%) 66.4 % 56.0-77.0 N IMMATURE GRANULOCYTE % (test code = IG%) 0.5 % 0.0-2.0 N LYMPHOCYTE % (test code = LY%) 18.0 % 14.0-32.0 N MONOCYTE % (test code = MO%) 9.4 % 4.8-9.0 H EOSINOPHIL % (test code = EO%) 5.4 % 0.3-3.7 H BASOPHIL % (test code = BA%) 0.3 % 0.0-2.0 N NUCLEATED RBC % (test code = NRBC%) 0.0 % 0-0 N NEUTROPHIL # (test code = NT#) 5.32 x10 3/uL 2.0-7.6 N IMMATURE GRANULOCYTE # (test code = IG#) 0.04 x10 3/uL 0.00-0.03 H LYMPHOCYTE # (test code = LY#) 1.44 x10 3/uL 1.0-3.8 N MONOCYTE # (test code = MO#) 0.75 x10 3/uL 0.1-0.8 N EOSINOPHIL # (test code = EO#) 0.43 x10 3/uL 0.0-0.2 H BASOPHIL # (test code = BA#) 0.02 x10 3/uL 0.0-0.2 N NUCLEATED RBC # (test code = NRBC#) 0.00 x10 3/uL 0.0-0.1 N MANUAL DIFF REQUIRED (test c ode = MDIFF) NO [id number] 20:50:00* Test Item Value Reference Range Interpretation Comme nts GLUBED (test code = GLUBED) 181 MG/DL 70-110 H Performed by cer tified tar heater operator at [facility] [id number] 20:18:00* Test Item Value Reference Range Interpretation Comme nts GLUBED (test code = GLUBED) 163 MG/DL 70-110 H Performed by cer tified tar heater operator at [facility] - DUP VEIN [id number] 12:24:00Name: DUSTY FRANCOIS [facility] : 1960 Age/S: 58 / M [address] [place] [address] Blvd Unit #: [id number] Loc: [place] [address] Phys: Jennifer Gonzalez MD Acct: [id number] Dis Date: Status: ADM IN PHONE #: [phone] Exam Date: 06/13/2019 1222 FAX #: [phone] Reason: DOPPLER FOR SWELLING BILATERAL LEGS EXAMS: CPT CODE: [id number] DUP VEIN ALEJANDRA [address] PROCEDURE: BILATERAL LOWER EXTREMITY VENOUS ULTRASOUND INDICATION: 58-year-old male with bilateral leg edema, recent surgical procedure COMPARISON: None. TECHNIQUE: Sonographic evaluation of the bilateral lower extremity veins wasperformed using high resolution B-mode, pulse and color Doppler imaging. FINDINGS: RIGHT: The common femoral, femoral, popliteal and visualized calf veins are patent. Normal venous waveforms. The saphenofemoral junction is unremarkable. LEFT: The common femoral, femoral, popliteal and visualized calf veins are patent. Normal venous waveforms. The saphenofemoral junction is unremarkable. IMPRESSION: 1. No deep venous thrombosis identified in the bilateral lower extremities. SL: [id number] El ectronically Signed by Margareth Anne on 06/13/2019 at 1224 Reported and signed by: Amadeo Anne M.D. CC: Kyung Bedoya MD; Shawanda Wild DO; Jennifer Gonzalez MD Technologist: Pattie Dawkins RDMS(BR)(AB) Trnscb Date/Time: 06/13/2019 (1227) [email or web address] Orig Print D/T: S: 06/13/2019 (9126) Probe: PAGE 1 Signed ReportCBC W/AUTO [id number] 08:55:00* Test Item Value Reference Range Interpretation Comme nts WHITE BLOOD CELL (test code = WBC) 10.24 x10 3/uL 4.5-11.0 N RED BLOOD CELL (test code = RBC) 2.93 x10 6/uL 4.00-5.60 L HEMOGLOBIN (test code = HGB) 7.9 g/dL 12.5-16.9 L HEMATOCRIT (test code = HCT) 25.3 % 37.5-50.7 L MEAN CELL VOLUME (test code = MCV) 86.3 fL 81.0-99.0 N MEAN CELL HGB (test code = MCH) 27.0 pg 27.0-33.0 N MEAN CELL HGB CONCETRATION (test code = MCHC) 31.2 g/dL 33.0-37.0 L RED CELL DISTRIBUTION WIDTH CV (test code = RDW) 13.6 % 11.5-14.5 N RED CELL DISTRIBUTION WIDTH SD (test code = RDW-SD) 43.2 fL 37.0-54.0 N PLATELET COUNT (test code = PLT) 498 x10 3/uL 150-400 H MEAN PLATELET VOLUME (test code = MPV) 10.2 fL 7.0-9.0 H NEUTROPHIL % (test code = NT%) 73.2 % 56.0-77.0 N IMMATURE GRANULOCYTE % (test code = IG%) 0.7 % 0.0-2.0 N LYMPHOCYTE % (test code = LY%) 12.4 % 14.0-32.0 L MONOCYTE % (test code = MO%) 10.1 % 4.8-9.0 H EOSINOPHIL % (test code = EO%) 3.5 % 0.3-3.7 N BASOPHIL % (test code = BA%) 0.1 % 0.0-2.0 N NUCLEATED RBC % (test code = NRBC%) 0.0 % 0-0 N NEUTROPHIL # (test code = NT#) 7.50 x10 3/uL 2.0-7.6 N IMMATURE GRANULOCYTE # (test code = IG#) 0.07 x10 3/uL 0.00-0.03 H LYMPHOCYTE # (test code = LY#) 1.27 x10 3/uL 1.0-3.8 N MONOCYTE # (test code = MO#) 1.03 x10 3/uL 0.1-0.8 H EOSINOPHIL # (test code = EO#) 0.36 x10 3/uL 0.0-0.2 H BASOPHIL # (test code = BA#) 0.01 x10 3/uL 0.0-0.2 N NUCLEATED RBC # (test code = NRBC#) 0.00 x10 3/uL 0.0-0.1 N MANUAL DIFF REQUIRED (test code = MDIFF) NO BASIC METABOLIC [id number] 08:30:00* Test Item Value Reference Range Interpretation Comme nts SODIUM (test code = NA) 141 mEq/L 134-147 N POTASSIUM (test code = K) 4.2 mEq/L 3.4-5.0 N CHLORIDE (test code = CL) 107 mEq/L 100-108 N CARBON DIOXIDE (test code = CO2) 26 mEq/L 21-33 N ANION GAP (test code = GAP) 12 0-20 N GLUCOSE (test code = GLU) 144 mg/dL 70-110 H BLOOD UREA NITROGEN (test code = BUN) 22 mg/dL 7-18 H GLOMERULAR FILTRATION RATE (test code = GFR) 47.5 90-95 L Units of measure = ml/min/1.73 m2 CREATININE (test code = CREAT) 1.8 mg/dL 0.6-1.3 H CALCIUM (test code = CA) 8.5 mg/dL 8.0-10.5 N [id number] 08:30:00* Test Item Value Reference Range Interpretation Comme nts PHOSPHOROUS (test code = PHOS) 3.1 mg/dL 2.5-4.9 N [id number] 08:30:00* Test Item Value Reference Range Interpretation Comme nts MAGNESIUM (test code = MAG) 2.30 mg/dL 1.8-2.4 N [id number] 07:52:00* Test Item Value Reference Range Interpretation Comme nts GLUBED (test code = GLUBED) 125 MG/DL 70-110 H Performed by cer tified tar heater operator at [facility] [id number] 20:45:00* Test Item Value Reference Range Interpretation Comme nts GLUBED (test code = GLUBED) 134 MG/DL 70-110 H Performed by cer tified tar heater operator at [facility] [id number] 17:22:00* Test Item Value Reference Range Interpretation Comme nts GLUBED (test code = GLUBED) 95 MG/DL 70-110 N Performed by cer tified tar heater operator at [facility] [id number] 12:12:00* Test Item Value Reference Range Interpretation Comme nts GLUBED (test code = GLUBED) 230 MG/DL 70-110 H Performed by cer tified tar heater operator at [facility] [id number] 07:55:00* Test Item Value Reference Range Interpretation Comme nts GLUBED (test code = GLUBED) 132 MG/DL 70-110 H Performed by cer tified tar heater operator at [facility] BASIC METABOLIC [id number] 05:56:00* Test Item Value Reference Range Interpretation Comme nts SODIUM (test code = NA) 142 mEq/L 134-147 N POTASSIUM (test code = K) 4.0 mEq/L 3.4-5.0 N CHLORIDE (test code = CL) 107 mEq/L 100-108 N CARBON DIOXIDE (test code = CO2) 30 mEq/L 21-33 N ANION GAP (test code = GAP) 9 0-20 N GLUCOSE (test code = GLU) 158 mg/dL 70-110 H BLOOD UREA NITROGEN (test code = BUN) 19 mg/dL 7-18 H GLOMERULAR FILTRATION RATE (test code = GFR) 50.7 90-95 L Units of measure = ml/min/1.73 m2 CREATININE (test code = CREAT) 1.7 mg/dL 0.6-1.3 H CALCIUM (test code = CA) 8.7 mg/dL 8.0-10.5 N [id number] 05:56:00* Test Item Value Reference Range Interpretation Comme nts PHOSPHOROUS (test code = PHOS) 3.0 mg/dL 2.5-4.9 N [id number] 05:56:00* Test Item Value Reference Range Interpretation Comme nts MAGNESIUM (test code = MAG) 2.40 mg/dL 1.8-2.4 N CBC W/AUTO [id number] 05:35:00* Test Item Value Reference Range Interpretation Comme nts WHITE BLOOD CELL (test code = WBC) 10.36 x10 3/uL 4.5-11.0 N RED BLOOD CELL (test code = RBC) 3.12 x10 6/uL 4.00-5.60 L HEMOGLOBIN (test code = HGB) 8.5 g/dL 12.5-16.9 L HEMATOCRIT (test code = HCT) 27.0 % 37.5-50.7 L MEAN CELL VOLUME (test code = MCV) 86.5 fL 81.0-99.0 N MEAN CELL HGB (test code = MCH) 27.2 pg 27.0-33.0 N MEAN CELL HGB CONCETRATION (test code = MCHC) 31.5 g/dL 33.0-37.0 L RED CELL DISTRIBUTION WIDTH CV (test code = RDW) 13.6 % 11.5-14.5 N RED CELL DISTRIBUTION WIDTH SD (test code = RDW-SD) 43.1 fL 37.0-54.0 N PLATELET COUNT (test code = PLT) 452 x10 3/uL 150-400 H MEAN PLATELET VOLUME (test code = MPV) 9.6 fL 7.0-9.0 H NEUTROPHIL % (test code = NT%) 71.8 % 56.0-77.0 N IMMATURE GRANULOCYTE % (test code = IG%) 0.5 % 0.0-2.0 N LYMPHOCYTE % (test code = LY%) 14.4 % 14.0-32.0 N MONOCYTE % (test code = MO%) 9.2 % 4.8-9.0 H EOSINOPHIL % (test code = EO%) 4.0 % 0.3-3.7 H BASOPHIL % (test code = BA%) 0.1 % 0.0-2.0 N NUCLEATED RBC % (test code = NRBC%) 0.0 % 0-0 N NEUTROPHIL # (test code = NT#) 7.45 x10 3/uL 2.0-7.6 N IMMATURE GRANULOCYTE # (test code = IG#) 0.05 x10 3/uL 0.00-0.03 H LYMPHOCYTE # (test code = LY#) 1.49 x10 3/uL 1.0-3.8 N MONOCYTE # (test code = MO#) 0.95 x10 3/uL 0.1-0.8 H EOSINOPHIL # (test code = EO#) 0.41 x10 3/uL 0.0-0.2 H BASOPHIL # (test code = BA#) 0.01 x10 3/uL 0.0-0.2 N NUCLEATED RBC # (test code = NRBC#) 0.00 x10 3/uL 0.0-0.1 N MANUAL DIFF REQUIRED (test code = MDIFF) NO [id number] 00:38:00* Test Item Value Reference Range Interpretation Comme nts GLUBED (test code = GLUBED) 157 MG/DL 70-110 H Performed by cer tified tar heater operator at [facility] [id number] 18:21:00* Test Item Value Reference Range Interpretation Comme nts GLUBED (test code = GLUBED) 53 MG/DL 70-110 L Performed by cer tified tar heater operator at [facility] [facility] [id number] 11:56:00* Test Item Value Reference Range Interpretation Comme nts GLUBED (test code = GLUBED) 188 MG/DL 70-110 H Performed by cer tified tar heater operator at [facility] [id number] 08:42:00* Test Item Value Reference Range Interpretation Comme nts GLUBED (test code = GLUBED) 125 MG/DL 70-110 H Performed by [employer] tar heater operator at [facility] BASIC METABOLIC [id number] 05:21:00* Test Item Value Reference Range Interpretation Comme nts SODIUM (test code = NA) 142 mEq/L 134-147 N POTASSIUM (test code = K) 3.8 mEq/L 3.4-5.0 N CHLORIDE (test code = CL) 106 mEq/L 100-108 N CARBON DIOXIDE (test code = CO2) 33 mEq/L 21-33 N ANION GAP (test code = GAP) 7 0-20 N GLUCOSE (test code = GLU) 116 mg/dL 70-110 H BLOOD UREA NITROGEN (test code = BUN) 22 mg/dL 7-18 H GLOMERULAR FILTRATION RATE (test code = GFR) 50.7 90-95 L Units of measure = ml/min/1.73 m2 CREATININE (test code = CREAT) 1.7 mg/dL 0.6-1.3 H CALCIUM (test code = CA) 8.4 mg/dL 8.0-10.5 N [id number] 05:21:00* Test Item Value Reference Range Interpretation Comme nts PHOSPHOROUS (test code = PHOS) 3.4 mg/dL 2.5-4.9 N [id number] 05:21:00* Test Item Value Reference Range Interpretation Comme nts MAGNESIUM (test code = MAG) 2.40 mg/dL 1.8-2.4 N CBC W/AUTO [id number] 05:06:00* Test Item Value Reference Range Interpretation Comme nts WHITE BLOOD CELL (test code = WBC) 9.32 x10 3/uL 4.5-11.0 N RED BLOOD CELL (test code = RBC) 3.28 x10 6/uL 4.00-5.60 L HEMOGLOBIN (test code = HGB) 8.8 g/dL 12.5-16.9 L HEMATOCRIT (test code = HCT) 27.7 % 37.5-50.7 L MEAN CELL VOLUME (test code = MCV) 84.5 fL 81.0-99.0 N MEAN CELL HGB (test code = MCH) 26.8 pg 27.0-33.0 L MEAN CELL HGB CONCETRATION (test code = MCHC) 31.8 g/dL 33.0-37.0 L RED CELL DISTRIBUTION WIDTH CV (test code = RDW) 13.3 % 11.5-14.5 N RED CELL DISTRIBUTION WIDTH SD (test code = RDW-SD) 41.7 fL 37.0-54.0 N PLATELET COUNT (test code = PLT) 432 x10 3/uL 150-400 H MEAN PLATELET VOLUME (test c ode = MPV) 9.7 fL 7.0-9.0 H NEUTROPHIL % (test code = NT%) 65.0 % 56.0-77.0 N IMMATURE GRANULOCYTE % (test code = IG%) 0.8 % 0.0-2.0 N LYMPHOCYTE % (test code = LY%) 17.9 % 14.0-32.0 N MONOCYTE % (test code = MO%) 10.9 % 4.8-9.0 H EOSINOPHIL % (test code = EO%) 5.3 % 0.3-3.7 H BASOPHIL % (test code = BA%) 0.1 % 0.0-2.0 N NUCLEATED RBC % (test code = NRBC%) 0.0 % 0-0 N NEUTROPHIL # (test code = NT#) 6.06 x10 3/uL 2.0-7.6 N IMMATURE GRANULOCYTE # (test code = IG#) 0.07 x10 3/uL 0.00-0.03 H LYMPHOCYTE # (test code = LY#) 1.67 x10 3/uL 1.0-3.8 N MONOCYTE # (test code = MO#) 1.02 x10 3/uL 0.1-0.8 H EOSINOPHIL # (test code = EO#) 0.49 x10 3/uL 0.0-0.2 H BASOPHIL # (test code = BA#) 0.01 x10 3/uL 0.0-0.2 N NUCLEATED RBC # (test code = NRBC#) 0.00 x10 3/uL 0.0-0.1 N MANUAL DIFF REQUIRED (test c ode = MDIFF) NO [id number] 20:59:00* Test Item Value Reference Range Interpretation Comme nts GLUBED (test code = GLUBED) 158 MG/DL 70-110 H Performed by cer tified tar heater operator at [facility] [id number] 16:48:00* Test Item Value Reference Range Interpretation Comme nts GLUBED (test code = GLUBED) 53 MG/DL 70-110 L Performed by cer tified tar heater operator at [facility] [id number] 14:36:00* Test Item Value Reference Range Interpretation Comme nts GLUBED (test code = GLUBED) 152 MG/DL 70-110 H Performed by cer tified tar heater operator at [facility] [id number] 11:31:00* Test Item Value Reference Range Interpretation Comme nts GLUBED (test code = GLUBED) 90 MG/DL 70-110 N Performed by cer tified tar heater operator at [facility] BASIC METABOLIC [id number] 10:32:00* Test Item Value Reference Range Interpretation Comme nts SODIUM (test code = NA) 142 mEq/L 134-147 N POTASSIUM (test code = K) 4.0 mEq/L 3.4-5.0 N CHLORIDE (test code = CL) 108 mEq/L 100-108 N CARBON DIOXIDE (test code = CO2) 29 mEq/L 21-33 N ANION GAP (test code = GAP) 9 0-20 N GLUCOSE (test code = GLU) 96 mg/dL 70-110 N BLOOD UREA NITROGEN (test code = BUN) 28 mg/dL 7-18 H GLOMERULAR FILTRATION RATE (test code = GFR) 50.7 90-95 L Units of measure = ml/min/1.73 m2 CREATININE (test code = CREAT) 1.7 mg/dL 0.6-1.3 H CALCIUM (test code = CA) 7.8 mg/dL 8.0-10.5 L [id number] 05:37:00* Test Item Value Reference Range Interpretation Comme nts MAGNESIUM (test code = MAG) 2.50 mg/dL 1.8-2.4 H CBC W/AUTO [id number] 05:24:00* Test Item Value Reference Range Interpretation Comme nts WHITE BLOOD CELL (test code = WBC) 8.44 x10 3/uL 4.5-11.0 N RED BLOOD CELL (test code = RBC) 2.96 x10 6/uL 4.00-5.60 L HEMOGLOBIN (test code = HGB) 7.9 g/dL 12.5-16.9 L HEMATOCRIT (test code = HCT) 24.9 % 37.5-50.7 L MEAN CELL VOLUME (test code = MCV) 84.1 fL 81.0-99.0 N MEAN CELL HGB (test code = MCH) 26.7 pg 27.0-33.0 L MEAN CELL HGB CONCETRATION (test code = MCHC) 31.7 g/dL 33.0-37.0 L RED CELL DISTRIBUTION WIDTH CV (test code = RDW) 13.6 % 11.5-14.5 N RED CELL DISTRIBUTION WIDTH SD (test code = RDW-SD) 42.2 fL 37.0-54.0 N PLATELET COUNT (test code = PLT) 356 x10 3/uL 150-400 N MEAN PLATELET VOLUME (test c ode = MPV) 10.0 fL 7.0-9.0 H NEUTROPHIL % (test code = NT%) 67.5 % 56.0-77.0 N IMMATURE GRANULOCYTE % (test code = IG%) 0.7 % 0.0-2.0 N LYMPHOCYTE % (test code = LY%) 18.2 % 14.0-32.0 N MONOCYTE % (test code = MO%) 10.4 % 4.8-9.0 H EOSINOPHIL % (test code = EO%) 3.1 % 0.3-3.7 N BASOPHIL % (test code = BA%) 0.1 % 0.0-2.0 N NUCLEATED RBC % (test code = NRBC%) 0.0 % 0-0 N NEUTROPHIL # (test code = NT#) 5.69 x10 3/uL 2.0-7.6 N IMMATURE GRANULOCYTE # (test code = IG#) 0.06 x10 3/uL 0.00-0.03 H LYMPHOCYTE # (test code = LY#) 1.54 x10 3/uL 1.0-3.8 N MONOCYTE # (test code = MO#) 0.88 x10 3/uL 0.1-0.8 H EOSINOPHIL # (test code = EO#) 0.26 x10 3/uL 0.0-0.2 H BASOPHIL # (test code = BA#) 0.01 x10 3/uL 0.0-0.2 N NUCLEATED RBC # (test code = NRBC#) 0.00 x10 3/uL 0.0-0.1 N MANUAL DIFF REQUIRED (test c ode = MDIFF) NO [id number] 20:33:00* Test Item Value Reference Range Interpretation Comme nts GLUBED (test code = GLUBED) 116 MG/DL 70-110 H Performed by cer tified tar heater operator at [facility] [id number] 17:37:00* Test Item Value Reference Range Interpretation Comme nts GLUBED (test code = GLUBED) 97 MG/DL 70-110 N Performed by cer tified tar heater operator at [facility] - PULM VENT PERF [id number] 15:26:00FAX: Dora Bedoya [phone] [place]: St: ADM FAX: Shawanda Wild [phone] FAX: Koko Chung NP [phone] Name: DUSTY FRANCOIS [facility] [place] : 1960 Age/S: 58/M [address] [place] [address] BlvdUnit #: [id number] Loc: G.[address] [place] [address] Phys: Koko Chung MEDICATION ADMINISTRATION PROFESSIONAL Acct: [id number] Dis Date: Status: ADM IN PHONE #: [phone] Exam Date: 06/09/2019 1515 FAX #: [phone] Reason: SOB, hypoxia EXAMS: CPT CODE: [id number] PULM VENT PERF IMAG 37665 Clinical Indication: Shortness of breath. Comparison: None TECHNIQUE: Ventilation/perfusion lung scan is performed using 10 mCi of Xe-133 which was inhaled and 5 mCi of Tc 99 MAA, which was administered intravenously. IV Site: Right Antecubital The ventilation images were obtained in the posterior plane after Xe inhalation with initial, e quilibrium and washout imaging. The perfusion images were obtained immediately after MAA administration sequentially in the anterior, posterior, TONGAN, HANCOCK, LT lateral, RT lateral, LPO and RPO projections. FINDINGS: Comparison chest radiograph is unremarkable. The Xe-133 ventilation rebreathing images with multiple breath washout show distribution of the radiotracer to both lungs. The washout images show normal washout of the radiotracer. The pulmonary perfusion images with Tc-99m MAA particles show no significant perfusion defects. Heterogeneity of tracer distribution noted. If there is further concern, CT pulmonary embolism protocol would be helpful for complete assessment. IMPRESSION: 1. Low likelihood ratio for pulmonary embolism. Normal: < 5% probability of pulmonary embolism. Low likelihood ratio: < 20 % probability of pulmonary embolism. Intermediate likelihood ratio: 20-80% probability of pulmonary embolism. High likelihood ratio: > 80% probability of pulmonary embolism. PAGE 1 Signed Report (CONTINUED) FAX: Dora Bedoya [phone] [place]: St: [facility] FAX: Shawanda Wild [phone] FAX: Koko Chung NP [phone] Name: DUSTY FRANCOIS [facility] : 1960 Age/S: 58/M [address] [place] [address] Blvd Unit #: [id number] [facility] [place] [address] Phys: Koko Chung NP Acct: [id number] Dis Date: Status: ADM IN PHONE #: [phone] Exam Date: 06/09/2019 1515 FAX #: [phone] Reason: SOB, hypoxia EXAMS: CPT CODE: [id number] PULM VENT PERF IMAG 56926 (Continued) SL: [id number] at 1526 Reported and signed by: Amadou Vizcaino M.D. CC: Kyung Bedoya MD; Shawanda Wild DO; Koko Chung NP Technologist: FLO Del Castillo)([facility]) Trnscrd Date/Time/By: 06/09/2019 (1526) : By: [email or web address] Orig Print D/T: S: 06/09/2019 (1529) PAGE 2 Signed ReportRESPIRATORY VIRUS PANEL [id number] 14:44:00* Test Item Value Reference Range Interpretation Comments RSV A PCR (test code = RSV A) Negative Negative RSV B PCR (test code = RSV B) Negative Negative INFLUENZA A (test code = FLUAPCR) Negative Negative INFLUENZA A SUBTYPE H1 (test code = FLUAH1) Negative Negative INFLUENZA A SUBTYPE H3 (test code = FLUAH3) Negative Negative INFLUENZA B (test code = FLUBPCR) Negative Negative PARAINFLUENZA TYPE 1 PCR (test code = PIF1) Negative Negative PARAINFLUENZA TYPE 2 PCR (test code = PIF2) Negative Negative PARAINFLUENZA TYPE 3 PCR (test code = PIF3) Negative Negative PARAINFLUENZA TYPE 4 PCR (test code = PIF4) Negative Negative RHINOVIRUS PCR (test code = RHINO) Negative Negative METAPNEUMOVIRUS PCR (test code = METAPNEU) Negative Negative ADENOVIRUS PCR (test code = ADENOPCR) Negative Negative BORDETELLA PERTUSSIS DNA PCR (test code = BORDPERDNA) Negative Negative B PARAPERTUSSIS BY PCR (test code = BPARAPCR) Negative Negative BORDETELLA HOLMESII (test code = BORDHOLM) Negative Negative Testing was perf ormed using nucleic acid amplificationincluding Bordetella parapertussis/brochiseptic a, Bordetella holmesii, and Bordetella pertussis. COMPLEMENT BETA C1 (test code = COMBC1) RVP Comment Testing was perf ormed using nucleic acid amplificationincluding influenza A, influenza A H1, influenza A H3,influenza B, RSV-A, RSV-B, Adenovirus, HumanMetapneumovirus, Parainfluenza 1,2,3 and 4, Rhinovirus, Bordetella parapertussis/brochiseptic a, Bordetella holmesii, and Bordetella pertussis. [id number] 11:46:00* Test Item Value Reference Range Interpretation Comme nts GLUBED (test code = GLUBED) 125 MG/DL 70-110 H Performed by cer tified tar heater operator at [facility] [id number] 10:37:00* Test Item Value Reference Range Interpretation Comme nts GLUBED (test code = GLUBED) 132 MG/DL 70-110 H Performed by cer tified tar heater operator at [facility] [employer]IC METABOLIC [id number] 06:35:00* Test Item Value Reference Range Interpretation Comme nts SODIUM (test code = NA) 143 mEq/L 134-147 N POTASSIUM (test code = K) 4.2 mEq/L 3.4-5.0 N CHLORIDE (test code = CL) 109 mEq/L 100-108 H CARBON DIOXIDE (test code = CO2) 27 mEq/L 21-33 N ANION GAP (test code = GAP) 11 0-20 N GLUCOSE (test code = GLU) 100 mg/dL 70-110 N BLOOD UREA NITROGEN (test code = BUN) 37 mg/dL 7-18 H GLOMERULAR FILTRATION RATE (test code = GFR) 39.7 90-95 L Units of measure = ml/min/1.73 m2 CREATININE (test code = CREAT) 2.1 mg/dL 0.6-1.3 H CALCIUM (test code = CA) 8.0 mg/dL 8.0-10.5 N [id number] 06:35:00* Test Item Value Reference Range Interpretation Comme nts PHOSPHOROUS (test code = PHOS) 3.4 mg/dL 2.5-4.9 N [id number] 06:35:00* Test Item Value Reference Range Interpretation Comme nts MAGNESIUM (test code = MAG) 2.70 mg/dL 1.8-2.4 H CBC W/AUTO [id number] 05:15:00* Test Item Value Reference Range Interpretation Comme nts WHITE BLOOD CELL (test code = WBC) 8.39 x10 3/uL 4.5-11.0 N RED BLOOD CELL (test code = RBC) 3.38 x10 6/uL 4.00-5.60 L HEMOGLOBIN (test code = HGB) 9.0 g/dL 12.5-16.9 L HEMATOCRIT (test code = HCT) 28.5 % 37.5-50.7 L MEAN CELL VOLUME (test code = MCV) 84.3 fL 81.0-99.0 N MEAN CELL HGB (test code = MCH) 26.6 pg 27.0-33.0 L MEAN CELL HGB CONCETRATION (test code = MCHC) 31.6 g/dL 33.0-37.0 L RED CELL DISTRIBUTION WIDTH CV (test code = RDW) 13.7 % 11.5-14.5 N RED CELL DISTRIBUTION WIDTH SD (test code = RDW-SD) 42.9 fL 37.0-54.0 N PLATELET COUNT (test code = PLT) 370 x10 3/uL 150-400 N MEAN PLATELET VOLUME (test c ode = MPV) 10.1 fL 7.0-9.0 H NEUTROPHIL % (test code = NT%) 70.6 % 56.0-77.0 N IMMATURE GRANULOCYTE % (test code = IG%) 0.6 % 0.0-2.0 N LYMPHOCYTE % (test code = LY%) 17.6 % 14.0-32.0 N MONOCYTE % (test code = MO%) 10.4 % 4.8-9.0 H EOSINOPHIL % (test code = EO%) 0.7 % 0.3-3.7 N BASOPHIL % (test code = BA%) 0.1 % 0.0-2.0 N NUCLEATED RBC % (test code = NRBC%) 0.0 % 0-0 N NEUTROPHIL # (test code = NT#) 5.92 x10 3/uL 2.0-7.6 N IMMATURE GRANULOCYTE # (test code = IG#) 0.05 x10 3/uL 0.00-0.03 H LYMPHOCYTE # (test code = LY#) 1.48 x10 3/uL 1.0-3.8 N MONOCYTE # (test code = MO#) 0.87 x10 3/uL 0.1-0.8 H EOSINOPHIL # (test code = EO#) 0.06 x10 3/uL 0.0-0.2 N BASOPHIL # (test code = BA#) 0.01 x10 3/uL 0.0-0.2 N NUCLEATED RBC # (test code = NRBC#) 0.00 x10 3/uL 0.0-0.1 N MANUAL DIFF REQUIRED (test c ode = MDIFF) NO [id number] 21:21:00* Test Item Value Reference Range Interpretation Comme nts GLUBED (test code = GLUBED) 126 MG/DL 70-110 H Performed by cer tified tar heater operator at [facility] PROCALCITONIN (PCT)2019-06-08 18:46:00* Test Item Value Reference Range Interpretation Comme nts PROCALCITONIN (PCT) (test code = PROCAL) 0.77 ng/mL 0.00-0.05 H PROCALCITON IN (PCT) NORMAL RANGE (ADULT): <0.05 NG/ML. * a concentration <0.5 ng/mL represents a low risk of severe sepsis and/or septic shock.* a concentration >2 ng/mL represents a high risk of severe sepsis and/or septic shock.Nevertheless, concentrations <0.5 ng/mL do not exclude aninfection, on account of localized infections (withoutsystemic signs) which can be associated with such lowconcentrations, or a systemic infection in its initialstages (< 6 hours). Furthermore, increased procalcitonincan occur without infection. PCT concentrations between 0.5and 2.0 ng/mL should be interpreted taking into account thepatient's history. It is recommended to retest PCT within6-24 hours if any concentrations <2 ng/mL are obtained. - XR ABDOMEN 1V (KUB)2019-06-08 16:59:00FAX: Dora Bedoya [phone] [place]: St: ADM FAX: Shawanda Wild [phone] ---- Name: DUSTY FRANCOIS [facility] : 1960 Age/S: 58/M [address] [place] [address] Unit #: [id number] Loc: G.[facility] [place] [address] Phys: Kyung Bedoya MD Acct: [id number] Dis Date: Status: ADM IN PHONE #: [phone] Exam Date: 06/08/2019 1557 FAX #: [phone] Reason: CONSTIPATION EXAMS: CPT CODE: [id number] XR ABDOMEN 1V ([facility] [[email or web address] [id number] ONE VIEW ABDOMEN: HISTORY: Constipation. COMPARISON EXAM: No recent abdominal imaging for comparison. Comparison is made to the recent CT scan of the chest from 06/06/2019. FINDINGS: 2 images were obtained to provide complete coverage. The gas pattern is within normal limits without small or large bowel dilatation. The volume of fecal material is less than normallyseen. Some fecal material is noted in the rectosigmoid. The well formed, slightly hyperdense fecal material seen in the transverse colon and flexures, on the study of 06/06/2019, has apparently cleared . The skeletal structures are unremarkable. IMPRESSION: 1. No evidence of constipation. 2. Unremarkable gas pattern. 3. Well formed fecal material noted in the upper abdomen on the CT scan of 06/06/2019 has cleared. SL:01 at 1650 Reported and signed by: Aftab Lim M.D. CC: Kyung Bedoya MD; Shawanda Wild DO Technologist: Zev Cheng RT(R)(CT) [facility] Date/Time/By: 06/08/2019 (1658) : By: [facility] Orig Print D/T: S: 06/08/2019 (0807) PAGE 1 Signed [id number] 16:57:00* Test Item Value Reference Range Interpretation Comme nts GLUBED (test code = GLUBED) 139 MG/DL 70-110 H Performed by cer mikalied tar heater operator at [facility] - XR CHEST 1 [id number] 16:29:00FAX: Dora Bedoya [phone] [place]: St: ADM FAX: Shawanda Wild [phone] ---- Name: DUSTY FRANCOIS [facility] : 1960 Age/S: 58/M [address] [place] [address] Blvd Unit #: [id number] Loc: G.1909 [place] [address] Phys: Kyung Bedoya MD Acct: [id number] Dis Date: Status: ADM IN PHONE #: [phone] Exam Date: 06/08/2019 1557 FAX #: [phone] Reason: FU PNA EXAMS: CPT CODE: [id number] XR CHEST 1 V 77813 XR CHEST 1 VIEW HISTORY: F/U PNA . COMPARISON: CXR 06/06/2019. FINDINGS: Diffuse airspace opacity is demonstrated within the right upper, middle and lower lung zones, less confluent as compared with 06/06/2019. There is also confluent opacity within the left lung base which has increased during the same interval. The left hemidiaphragm is now obscured. The costophrenic angles are obscured. Heart and vascular markings are within limits of normal. No significant skeletal abnormality is demonstrated. IMPRESSION: Residual diffuse right pulmonary infiltrate with improvement overthe last 2 days. Coalescing opacity within the left lower lobe, density increased over the last 2 days. Bilateral pleural effusions. SL: LS-H at 2956 Reported and signed by: Karsten Rodrigez M.D. CC: Kyung Bedoya MD; Shawanda Wild DO Technologist: Zev Cheng RT(R)(CT) Trnnyrd Date/Time/By: 06/08/2019 (4109) : By: [email or web address] Orig Print D/T: S: 06/08/2019 (3432) PAGE 1 Signed ReportGLUBED 2019-06-08 12:05:00* Test Item Value Reference Range Interpretation Comme nts GLUBED (test code = GLUBED) 144 MG/DL 70-110 H Performed by cer tified tar heater operator at [facility] [id number] 07:51:00* Test Item Value Reference Range Interpretation Comme nts GLUBED (test code = GLUBED) 148 MG/DL 70-110 H Performed by [facility] tified tar heater operator at [facility] BASIC METABOLIC [id number] 05:31:00* Test Item Value Reference Range Interpretation Comme nts SODIUM (test code = NA) 143 mEq/L 134-147 N POTASSIUM (test code = K) 4.2 mEq/L 3.4-5.0 N CHLORIDE (test code = CL) 112 mEq/L 100-108 H CARBON DIOXIDE (test code = CO2) 23 mEq/L 21-33 N ANION GAP (test code = GAP) 12 0-20 N GLUCOSE (test code = GLU) 116 mg/dL 70-110 H BLOOD UREA NITROGEN (test code = BUN) 50 mg/dL 7-18 H GLOMERULAR FILTRATION RATE (test code = GFR) 31.0 90-95 L Units of measure = ml/min/1.73 m2 CREATININE (test code = CREAT) 2.6 mg/dL 0.6-1.3 H CALCIUM (test code = CA) 8.3 mg/dL 8.0-10.5 N [id number] 05:31:00* Test Item Value Reference Range Interpretation Comme nts PHOSPHOROUS (test code = PHOS) 3.2 mg/dL 2.5-4.9 N [id number] 05:31:00* Test Item Value Reference Range Interpretation Comme nts MAGNESIUM (test code = MAG) 2.70 mg/dL 1.8-2.4 H CBC W/AUTO [id number] 05:02:00* Test Item Value Reference Range Interpretation Comme nts WHITE BLOOD CELL (test code = WBC) 11.19 x10 3/uL 4.5-11.0 H RED BLOOD CELL (test code = RBC) 3.39 x10 6/uL 4.00-5.60 L HEMOGLOBIN (test code = HGB) 9.3 g/dL 12.5-16.9 L HEMATOCRIT (test code = HCT) 28.9 % 37.5-50.7 L MEAN CELL VOLUME (test code = MCV) 85.3 fL 81.0-99.0 N MEAN CELL HGB (test code = MCH) 27.4 pg 27.0-33.0 N MEAN CELL HGB CONCETRATION (test code = MCHC) 32.2 g/dL 33.0-37.0 L RED CELL DISTRIBUTION WIDTH CV (test code = RDW) 13.7 % 11.5-14.5 N RED CELL DISTRIBUTION WIDTH SD (test code = RDW-SD) 43.5 fL 37.0-54.0 N PLATELET COUNT (test code = PLT) 379 x10 3/uL 150-400 N MEAN PLATELET VOLUME (test code = MPV) 10.0 fL 7.0-9.0 H NEUTROPHIL % (test code = NT%) 75.5 % 56.0-77.0 N IMMATURE GRANULOCYTE % (test code = IG%) 0.6 % 0.0-2.0 N LYMPHOCYTE % (test code = LY%) 14.7 % 14.0-32.0 N MONOCYTE % (test code = MO%) 8.8 % 4.8-9.0 N EOSINOPHIL % (test code = EO%) 0.2 % 0.3-3.7 L BASOPHIL % (test code = BA%) 0.2 % 0.0-2.0 N NUCLEATED RBC % (test code = NRBC%) 0.0 % 0-0 N NEUTROPHIL # (test code = NT#) 8.46 x10 3/uL 2.0-7.6 H IMMATURE GRANULOCYTE # (test code = IG#) 0.07 x10 3/uL 0.00-0.03 H LYMPHOCYTE # (test code = LY#) 1.64 x10 3/uL 1.0-3.8 N MONOCYTE # (test code = MO#) 0.98 x10 3/uL 0.1-0.8 H EOSINOPHIL # (test code = EO#) 0.02 x10 3/uL 0.0-0.2 N BASOPHIL # (test code = BA#) 0.02 x10 3/uL 0.0-0.2 N NUCLEATED RBC # (test code = NRBC#) 0.00 x10 3/uL 0.0-0.1 N MANUAL DIFF REQUIRED (test code = MDIFF) NO [id number] 20:05:00* Test Item Value Reference Range Interpretation Comme nts GLUBED (test code = GLUBED) 136 MG/DL 70-110 H Performed by cer tified tar heater operator at [facility] [id number] 16:32:00* Test Item Value Reference Range Interpretation Comme nts GLUBED (test code = GLUBED) 165 MG/DL 70-110 H Performed by cer tified tar heater operator at [facility] [id number] 11:55:00* Test Item Value Reference Range Interpretation Comme nts GLUBED (test code = GLUBED) 149 MG/DL 70-110 H Performed by cer tified tar heater operator at [facility] [id number] 07:51:00* Test Item Value Reference Range Interpretation Comme nts GLUBED (test code = GLUBED) 129 MG/DL 70-110 H Performed by cer tified tar heater operator at [facility] BASIC METABOLIC [id number] 07:38:00* Test Item Value Reference Range Interpretation Comme nts SODIUM (test code = NA) 141 mEq/L 134-147 N POTASSIUM (test code = K) 4.3 mEq/L 3.4-5.0 N CHLORIDE (test code = CL) 109 mEq/L 100-108 H CARBON DIOXIDE (test code = CO2) 22 mEq/L 21-33 N ANION GAP (test code = GAP) 14 0-20 N GLUCOSE (test code = GLU) 121 mg/dL 70-110 H BLOOD UREA NITROGEN (test code = BUN) 57 mg/dL 7-18 H GLOMERULAR FILTRATION RATE (test code = GFR) 21.3 90-95 L Units of measure = ml/min/1.73 m2 CREATININE (test code = CREAT) 3.6 mg/dL 0.6-1.3 H CALCIUM (test code = CA) 8.5 mg/dL 8.0-10.5 N [id number] 07:38:00* Test Item Value Reference Range Interpretation Comme nts PHOSPHOROUS (test code = PHOS) 3.9 mg/dL 2.5-4.9 N [id number] 07:38:00* Test Item Value Reference Range Interpretation Comme nts MAGNESIUM (test code = MAG) 2.50 mg/dL 1.8-2.4 H CBC W/AUTO [id number] 05:29:00* Test Item Value Reference Range Interpretation Comme nts WHITE BLOOD CELL (test code = WBC) 10.89 x10 3/uL 4.5-11.0 N RED BLOOD CELL (test code = RBC) 3.10 x10 6/uL 4.00-5.60 L HEMOGLOBIN (test code = HGB) 8.4 g/dL 12.5-16.9 L HEMATOCRIT (test code = HCT) 26.1 % 37.5-50.7 L MEAN CELL VOLUME (test code = MCV) 84.2 fL 81.0-99.0 N MEAN CELL HGB (test code = MCH) 27.1 pg 27.0-33.0 N MEAN CELL HGB CONCETRATION (test code = MCHC) 32.2 g/dL 33.0-37.0 L RED CELL DISTRIBUTION WIDTH CV (test code = RDW) 14.1 % 11.5-14.5 N RED CELL DISTRIBUTION WIDTH SD (test code = RDW-SD) 42.7 fL 37.0-54.0 N PLATELET COUNT (test code = PLT) 330 x10 3/uL 150-400 N MEAN PLATELET VOLUME (test code = MPV) 10.8 fL 7.0-9.0 H NEUTROPHIL % (test code = NT%) 79.3 % 56.0-77.0 H IMMATURE GRANULOCYTE % (test code = IG%) 0.9 % 0.0-2.0 N LYMPHOCYTE % (test code = LY%) 11.9 % 14.0-32.0 L MONOCYTE % (test code = MO%) 7.7 % 4.8-9.0 N EOSINOPHIL % (test code = EO%) 0.1 % 0.3-3.7 L BASOPHIL % (test code = BA%) 0.1 % 0.0-2.0 N NUCLEATED RBC % (test code = NRBC%) 0.0 % 0-0 N NEUTROPHIL # (test code = NT#) 8.63 x10 3/uL 2.0-7.6 H IMMATURE GRANULOCYTE # (test code = IG#) 0.10 x10 3/uL 0.00-0.03 H LYMPHOCYTE # (test code = LY#) 1.30 x10 3/uL 1.0-3.8 N MONOCYTE # (test code = MO#) 0.84 x10 3/uL 0.1-0.8 H EOSINOPHIL # (test code = EO#) 0.01 x10 3/uL 0.0-0.2 N BASOPHIL # (test code = BA#) 0.01 x10 3/uL 0.0-0.2 N NUCLEATED RBC # (test code = NRBC#) 0.00 x10 3/uL 0.0-0.1 N MANUAL DIFF REQUIRED (test code = MDIFF) NO [id number] 21:49:00* Test Item Value Reference Range Interpretation Comme nts GLUBED (test code = GLUBED) 96 MG/DL 70-110 N Performed by cer tified tar heater operator at [facility] - US RETRO [id number] 19:14:00Name: DUSTY FRANCOIS [facility] : 1960 Age/S: 58 / M [address] [place] [address] Unit #: [id number] Loc: [place] [address] Phys: Gideon Teran MD Acct: [id number] Dis Date: Status: ADM IN PHONE #: [phone] Exam Date: 06/06/20191650 FAX #: [phone] Reason: elevated Creat EXAMS: CPT CODE: [id number] [employer] [address] Procedure: Renal Ultrasound. Clinical Indication: Elevated creatinine. Comparison: Abdominal ultrasound 12/30/2013. TECHNIQUE: Multiple longitudinal and transverse real time sonographic images of the kidneys and urinary bladder are obtained. FINDINGS: KIDNEYS: The right kidney measures 12.9 cm. The left kidney measures 11.6 cm. The kidneys are normal in size, shape, contour, and position. The cortices are normal in thickness and the corticomedullary differentiation is maintained. There is no hydronephrosis, nephrolithiasis, or abnormal perinephric collections. BLADDER: A Wallace catheter is present within an empty bladder, precluding evaluation. The visualized portions of the abdominal aorta, IVC and proximal common iliac arteries are within normallimits. IMPRESSION: 1. Unremarkable renal ultrasound. SL: [id number] at 1914 Reported and signed by: Marco Montes De Oca M.D. PAGE 1 Signed Report (CONTINUED) Name: DUSTY FRANCOIS : 1960 Age/S: 58 / M [address] [place] [address] Unit #: [id number] Loc: [place] [address] Phys: Gideon Teran MD Acct: [id number] Dis Date: Status: ADM IN PHONE #: [phone] Exam Date: 06/06/20191650 FAX #: [phone] Reason: elevated Creat EXAMS: CPT CODE: [id number] [employer] [address]956 (Continued) CC: Gideon Reyes; Kyung Bedoya MD; Shawanda Wild DO Technologist: Maria Fernanda Alston RDMS() Trnscb Date/Time: 06/06/2019 (1913) DoritaO Orig Print D/T: S: 06/06/2019 (1917) Probe: PAGE 2 Signed Repo [id number] 17:06:00* Test Item Value Reference Range Interpretation Comme nts GLUBED (test code = GLUBED) 87 MG/DL 70-110 N Performed by cer nikia tar heater operator at [facility] BASIC METABOLIC [id number] 16:46:00* Test Item Value Reference Range Interpretation Comme nts SODIUM (test code = NA) 137 mEq/L 134-147 N POTASSIUM (test code = K) 5.2 mEq/L 3.4-5.0 H CHLORIDE (test code = CL) 110 mEq/L 100-108 H CARBON DIOXIDE (test code = CO2) 18 mEq/L 21-33 L ANION GAP (test code = GAP) 14 0-20 N GLUCOSE (test code = GLU) 101 mg/dL 70-110 BLOOD UREA NITROGEN (test code = BUN) 55 mg/dL 7-18 H GLOMERULAR FILTRATION RATE (test code = GFR) 20.7 90-95 L Units of measure = ml/min/1.73 m2 CREATININE (test code = CREAT) 3.7 mg/dL 0.6-1.3 H CALCIUM (test code = CA) 8.2 mg/dL 8.0-10.5 N BASIC METABOLIC [id number] 16:44:00* Test Item Value Reference Range Interpretation Comme nts SODIUM (test code = NA) 137 mEq/L 134-147 N POTASSIUM (test code = K) 5.2 mEq/L 3.4-5.0 H CHLORIDE (test code = CL) 110 mEq/L 100-108 H CARBON DIOXIDE (test code = CO2) mEq/L 21-33 ANION GAP (test code = GAP) 0-20 GLUCOSE (test code = GLU) 101 mg/dL 70-110 BLOOD UREA NITROGEN (test code = BUN) 55 mg/dL 7-18 H GLOMERULAR FILTRATION RATE (test code = GFR) 20.7 90-95 L Units of measure = ml/min/1.73 m2 CREATININE (test code = CREAT) 3.7 mg/dL 0.6-1.3 H CALCIUM (test code = CA) mg/dL 8.0-10.5 - DUP VEIN [id number] 16:42:00Name: DUSTY FRANCOIS [facility] : 1960 Age/S: 58 / M [address] [place] [address] Blvd Unit #: [id number] Loc: [place] [address] Phys: Koko Chung MEDICATION ADMINISTRATION PROFESSIONAL Acct: [id number] Dis Date: Status: ADM INPHONE #: [phone] Exam Date: 06/06/2019 165 FAX #: [phone] Reason: SOB, Hypoxia EXAMS: CPT CODE: [id number] DUP VEIN ALEJANDRA [address] Patient Name: DUSTY FRANCOIS : 1960; Age: 58 years y/o Male MR: [id number] Study: - DUP VEIN ALEJANDRA 06/06/2019 10:29 AM Ordering Physician: Koko Chung NP Clinical Indication: ; SOB, Hypoxia Comparison: None FINDINGS: Compression duplex ultrasound of both lower extremities was performed from the inguinal through the infrageniculate popliteal regions. Thevisualized superficial and deep veins are patent and compressible without evidence of intraluminal thrombus. Satisfactory spontaneous and augmented flow is demonstrated in the visualized segments. IMP RESSION: Negative bilateral lower extremity venous Doppler without evidence of deep vein thrombosis. SL: [id number] at 1642 Reported and signed by: Amadou Vizcaino M.D. CC: Kyung Bedoya MD; Shawanda Wild DO; Koko Chung NP Technologist: Maria Fernanda Alston RDMS(AB) Trnscb Date/Time: 06/06/2019 (1641) AlenaAP24 Orig Print D/T: S: 06/06/2019 (1650) Probe: PAGE 1 Signed Report URINALYSIS [id number] 12:01:00* Test Item Value Reference Range Interpretation Comme nts UA COLOR (test code = COLU) YELLOW YEL/STRAW UA APPEARANCE (test code = APPU) SL CLOUDY CLEAR UA GLUCOSE DIPSTICK (test co de = DGLUU) NEGATIVE NEGATIVE UA BILIRUBIN DIPSTICK (test code = BILU) NEGATIVE NEGATIVE UA KETONE DIPSTICK (test cod e = KETU) NEGATIVE NEGATIVE UA SPECIFIC GRAVITY (test co de = SGU) 1.011 1.005-1.030 N UA BLOOD DIPSTICK (test code = ESMER) 2+ NEGATIVE A UA PH DIPSTICK (test code = ALICIA) 5.0 5.0-7.0 N UA PROTEIN DIPSTICK (test co de = PROU) 2+ NEGATIVE A UA UROBILINIOGEN DIPSTICK (test code = URO) 0.2 mg/dL 0.2-1.0 UA NITRITE DIPSTICK (test co de = BROOKLYNN) NEGATIVE NEGATIVE UA LEUKOCYTE ESTERASE DIPSTI CK (test code = LEUU) NEGATIVE NEGATIVE UA WBC (test code = WBCU) 0-3 WBC/HPF 0-3 UA RBC (test code = RBCU) 4-10 RBC/HPF 0-3 UA BACTERIA (test code = BACU) NONE SEEN /HPF NONE SEEN UA SQUAMOUS CELLS (test code = SQU) NONE SEEN /HPF NONE SEEN UA HYALINE CAST (test code = HYALU) 6-10 /LPF NONE SEEN UA MUCUS (test code = MUCU) TRACE /LPF NONE SEEN UR PROTEIN [id number] 12:01:00* Test Item Value Reference Range Interpretation Comme nts UR PROTEIN RANDOM (test code = PROTU) 124 mg/dL Note: Altagracia nge in UNITS of MEASUREMENT. The Reference Range and Method Performance specificationshave not been established for this fluid. The test resultshould be correlated into the clinical context forinterpretation. UR CREATININE [id number] 12:01:00* Test Item Value Reference Range Interpretation Comme nts UR CREATININE RANDOM (test code = CREATU) 103.0 mg/dL The Reference Ra nge and Method Performance specificationshave not been established for this fluid. The test resultshould be correlated into the clinical context forinterpretation. [id number] 11:57:00* Test Item Value Reference Range Interpretation Comme nts GLUBED (test code = GLUBED) 156 MG/DL 70-110 H Performed by lianne montejo tar heater operator at [facility] URINALYSIS [id number] 11:46:00* Test Item Value Reference Range Interpretation Comme nts UA COLOR (test code = COLU) YELLOW YEL/STRAW UA APPEARANCE (test code = APPU) SL CLOUDY CLEAR UA GLUCOSE DIPSTICK (test co de = DGLUU) NEGATIVE NEGATIVE UA BILIRUBIN DIPSTICK (test code = BILU) NEGATIVE NEGATIVE UA KETONE DIPSTICK (test cod e = KETU) NEGATIVE NEGATIVE UA SPECIFIC GRAVITY (test co de = SGU) 1.011 1.005-1.030 N UA BLOOD DIPSTICK (test code = ESMER) 2+ NEGATIVE A UA PH DIPSTICK (test code = ALICIA) 5.0 5.0-7.0 N UA PROTEIN DIPSTICK (test co de = PROU) 2+ NEGATIVE A UA UROBILINIOGEN DIPSTICK (test code = URO) 0.2 mg/dL 0.2-1.0 UA NITRITE DIPSTICK (test co de = BROOKLYNN) NEGATIVE NEGATIVE UA LEUKOCYTE ESTERASE DIPSTI CK (test code = LEUU) NEGATIVE NEGATIVE UA WBC (test code = WBCU) 0-3 WBC/HPF 0-3 UA RBC (test code = RBCU) 4-10 RBC/HPF 0-3 UA BACTERIA (test code = BACU) NONE SEEN /HPF NONE SEEN UA SQUAMOUS CELLS (test code = SQU) NONE SEEN /HPF NONE SEEN UA HYALINE CAST (test code = HYALU) 6-10 /LPF NONE SEEN UA MUCUS (test code = MUCU) TRACE /LPF NONE SEEN UR PROTEIN [id number] 11:46:00* Test Item Value Reference Range Interpretation Comme nts UR PROTEIN RANDOM (test code = PROTU) mg/dL UR CREATININE [id number] 11:46:00* Test Item Value Reference Range Interpretation Comme nts UR CREATININE RANDOM (test c ode = CREATU) mg/dL - CT CHEST W/O [id number] 11:10:00Name: DUSTY FRANCOIS [facility] : 1960 Age/S: 58 / M [address] [place] [address] Unit #: [id number] Loc: [place] [address] Phys: Koko Chung 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 TECHNIQUE: Noncontrasted helical imaging performed apices through the lung bases with multiplanar reconstructions. DOSE: CT imaging performed at this location utilizes radiation dose optimization technique which includes one or more of the followin) Automated exposure control; 2) Adjustment of the mA and/or kV according to patient's size; 3) Use of iterative reconstruction techniques DLP (mGy-cm): 516.6 FINDINGS: LUNGS AND PLEURA: Patchy predominantly central consolidation with peripheral groundglass is noted in the bilateral lungs, most prominently inthe bilateral lower lobes. Additional mild central intralobular septal thickening is present throughout. Small bilateral pleural effusions. No pneumothorax. MEDIASTINUM: No evidence of aortic aneurysm. Multiple mediastinal and hilar lymph nodes are noted without evidence of pathologic enlargement. HEART: Cardiomegaly. Coronary artery calcifications. Trace pericardial effusion. UPPER ABDOMEN: Vicarious excretion of contrast noted in the gallbladder. Limited noncontrast survey of upper abdominal viscera is otherwise unremarkable. MUSCULOSKELETAL: No acute osseous abnormality. IMPRESSION: 1. Bilateral predominantly central pulmonary opacities. Differential considerations include edema and multifocal pneumonia. 2. Small bilateral pleural effusions. 3. Cardiomegaly. PAGE 1 Signed Report (CONTINUED) Name: DUSTY FRANCOIS [facility] : 1960 Age/S: 58 / M [address] [place] [address] Unit #: [id number] Loc: [place] [address] Phys: Koko Chung NP Acct: [id number] Dis Date: Status: ADM IN PHONE #: [phone] Exam Date: 06/06/2019 1044 FAX #: [phone] Reason: Hypoxia EXAMS: CPT CODE: [id number] CT CHEST W/O CONTRAST 51946 (Continued) SL: [id number] at 1110 Reported and signed by: Amadeo Anne M.D. CC: Kyung Bedoya MD; Shawanda Wild DO; Koko Chung NP Technologist:RT William(R) CTDI:DLP: Trnscb Date/Time: 06/06/2019 (1110) t.[email or web address] Orig Print D/T: S: 06/06/2019 (0372) PAGE 2 Signed ReportPROCALCITONIN (PCT)2019-06-06 09:21:00* Test Item Value Reference Range Interpretation Comme nts PROCALCITONIN (PCT) (test code = PROCAL) 3.42 ng/mL 0.00-0.05 H PROCALCITON IN (PCT) NORMAL RANGE (ADULT): <0.05 NG/ML. * a concentration <0.5 ng/mL represents a low risk of severe sepsis and/or septic shock.* a concentration >2 ng/mL represents a high risk of severe sepsis and/or septic shock.Nevertheless, concentrations <0.5 ng/mL do not exclude aninfection, on account of localized infections (withoutsystemic signs) which can be associated with such lowconcentrations, or a systemic infection in its initialstages (< 6 hours). Furthermore, increased procalcitonincan occur without infection. PCT concentrations between 0.5and 2.0 ng/mL should be interpreted taking into account thepatient's history. It is recommended to retest PCT within6-24 hours if any concentrations <2 ng/mL are obtained. BASIC METABOLIC [id number] 08:08:00* Test Item Value Reference Range Interpretation Comme nts SODIUM (test code = NA) 138 mEq/L 134-147 N POTASSIUM (test code = K) 5.4 mEq/L 3.4-5.0 H No Visible Hemol ysis Seen CHLORIDE (test code = CL) 107 mEq/L 100-108 N CARBON DIOXIDE (test code = CO2) 20 mEq/L 21-33 L ANION GAP (test code = GAP) 16 0-20 N GLUCOSE (test code = GLU) 190 mg/dL 70-110 H BLOOD UREA NITROGEN (test code = BUN) 49 mg/dL 7-18 H GLOMERULAR FILTRATION RATE (test code = GFR) 21.3 90-95 L Units of measure = ml/min/1.73 m2 CREATININE (test code = CREAT) 3.6 mg/dL 0.6-1.3 H CALCIUM (test code = CA) 8.3 mg/dL 8.0-10.5 N [id number] 08:08:00* Test Item Value Reference Range Interpretation Comme nts MAGNESIUM (test code = MAG) 2.30 mg/dL 1.8-2.4 N [id number] 08:02:00* Test Item Value Reference Range Interpretation Comme nts GLUBED (test code = GLUBED) 217 MG/DL 70-110 H Performed by lianne montejo tar heater operator at [facility] - XR CHEST 1 [id number] 05:45:00FAX: Dora Bedoya [phone] [place]: St: ADM FAX: Shawanda Wild [phone] ---- Name: DUSTY FRANCOIS [facility] : 1960 Age/S: 58/M [address] [place] [address] Unit #: [id number] Loc: G.[address] [place] [address] Phys: Kyung Bedoya MD Acct: [id number] Dis Date: Status: ADM IN PHONE #: [phone] Exam Date: 06/06/2019534 FAX #: [phone] Reason: RESPIRATORY DISTRESS EXAMS: CPTCODE: [id number] XR CHEST 1 V 84261 Chest, single view dated 06/06/2019. HISTORY: Respiratory distress. Comparison is made to a prior study dated 06/05/2019. The heart is normal in size. The cardiomediastinal shadow is stable. Worsening airspace opacities are identified in the perihilar right midlungand in the medial right lung base. The left lung appears clear. The pulmonary vasculature is normalin caliber. No acute pleural space abnormalities are detected. IMPRESSION: 1. Worsening airspace opacities in the perihilar right midlung and medial right lung base, concerning for pneumonia. SL: 131 at 8645 Reported andsigned by: Nahum Griffith M.D. CC: Kyung Bedoya MD; Shawanda Wild DO Technologist: Anabell Mendoza, RT(R)(M); Juancarlos Son RT(R) Trnscrd Date/Time/By: 06/06/2019 (0545) : By: Daniela Orig Print D/T: S: 06/06/2019 (0559) PAGE 1 Signed ReportLACTIC ACID 2019-06-06 04:20:00* Test Item Value Reference Range Interpretation Comme nts LACTIC ACID (test code = LACT) 1.6 mmol/L 0.4-1.9 N CBC W/AUTO [id number] 04:03:00* Test Item Value Reference Range Interpretation Comme nts WHITE BLOOD CELL (test code = WBC) 15.23 x10 3/uL 4.5-11.0 H RED BLOOD CELL (test code = RBC) 3.87 x10 6/uL 4.00-5.60 L HEMOGLOBIN (test code = HGB) 10.5 g/dL 12.5-16.9 L HEMATOCRIT (test code = HCT) 33.1 % 37.5-50.7 L MEAN CELL VOLUME (test code = MCV) 85.5 fL 81.0-99.0 N MEAN CELL HGB (test code = MCH) 27.1 pg 27.0-33.0 N MEAN CELL HGB CONCETRATION (test code = MCHC) 31.7 g/dL 33.0-37.0 L RED CELL DISTRIBUTION WIDTH CV (test code = RDW) 14.1 % 11.5-14.5 N RED CELL DISTRIBUTION WIDTH SD (test code = RDW-SD) 44.4 fL 37.0-54.0 N PLATELET COUNT (test code = PLT) 361 x10 3/uL 150-400 N MEAN PLATELET VOLUME (test code = MPV) 10.2 fL 7.0-9.0 H NEUTROPHIL % (test code = NT%) 90.0 % 56.0-77.0 H IMMATURE GRANULOCYTE % (test code = IG%) 1.3 % 0.0-2.0 N LYMPHOCYTE % (test code = LY%) 4.7 % 14.0-32.0 L MONOCYTE % (test code = MO%) 3.9 % 4.8-9.0 L EOSINOPHIL % (test code = EO%) 0.0 % 0.3-3.7 L BASOPHIL % (test code = BA%) 0.1 % 0.0-2.0 N NUCLEATED RBC % (test code = NRBC%) 0.0 % 0-0 N NEUTROPHIL # (test code = NT#) 13.70 x10 3/uL 2.0-7.6 H IMMATURE GRANULOCYTE # (test code = IG#) 0.20 x10 3/uL 0.00-0.03 H LYMPHOCYTE # (test code = LY#) 0.71 x10 3/uL 1.0-3.8 L MONOCYTE # (test code = MO#) 0.60 x10 3/uL 0.1-0.8 N EOSINOPHIL # (test code = EO#) 0.00 x10 3/uL 0.0-0.2 N BASOPHIL # (test code = BA#) 0.02 x10 3/uL 0.0-0.2 N NUCLEATED RBC # (test code = NRBC#) 0.00 x10 3/uL 0.0-0.1 N MANUAL DIFF REQUIRED (test code = MDIFF) NO ARTERIAL BLOOD [id number] 02:09:00* Test Item Value Reference Range Interpretation Comme nts ARTERIAL BLOOD GAS PH (test code = PHA) 7.282 7.35-7.45 L ARTERIAL BLOOD GAS PCO2 (nate t code = PCO2A) 34.6 mmHg 35-45 L ARTERIAL BLOOD GAS PO2 (test code = PO2A) 66 mmHg 80-100 L BICARBONATE TOTAL HCO3 (test code = HCO3) 16.3 mmol/L 22.0-26.0 L BASE EXCESS (test code = BARBRA) -10.0 mmol/L -4-4 L ABG O2 SATURATION (test code = SATA) 90 % 90-100 N ABG DELIVERY (test code = MEGA) Hi-himanshu Can ABG TEMPERATURE (test code = TEMPA) 98.8 F ABG SITE (test code = SITEA) R Rad TCO2 ARTERIAL (test code = TCO2A) 17 BASIC METABOLIC [id number] 21:21:00* Test Item Value Reference Range Interpretation Comme nts SODIUM (test code = NA) 139 mEq/L 134-147 N POTASSIUM (test code = K) 4.9 mEq/L 3.4-5.0 N CHLORIDE (test code = CL) 109 mEq/L 100-108 H CARBON DIOXIDE (test code = CO2) 22 mEq/L 21-33 N ANION GAP (test code = GAP) 13 0-20 N GLUCOSE (test code = GLU) 131 mg/dL 70-110 H BLOOD UREA NITROGEN (test code = BUN) 45 mg/dL 7-18 H GLOMERULAR FILTRATION RATE (test code = GFR) 22.8 90-95 L Units of measure = ml/min/1.73 m2 CREATININE (test code = CREAT) 3.4 mg/dL 0.6-1.3 H CALCIUM (test code = CA) 8.0 mg/dL 8.0-10.5 N CREATINE KINASE (CK)2019-06-05 21:21:00* Test Item Value Reference Range Interpretation Comme [facility] CREATINE KINASE (CK) (test code = CK) 1586 35-232 HH Result is in IN TERNATIONAL UNITS/LITER [id number] 21:21:00* Test Item Value Reference Range Interpretation Comme [facility] CKMB (test code = CKMBT) 19.1 ng/mL 0-5.0 HH CUT OFF:>5 ng/mL is suggested as being consistent with AMI. [id number] 21:21:00* Test Item Value Reference Range Interpretation Comme [facility] TROPONIN-I (test code = TROPI) ng/mL 0.000-0.045 BASIC METABOLIC [id number] 21:21:00* Test Item Value Reference Range Interpretation Comme [facility] SODIUM (test code = NA) 139 mEq/L 134-147 N POTASSIUM (test code = K) 4.9 mEq/L 3.4-5.0 N CHLORIDE (test code = CL) 109 mEq/L 100-108 H CARBON DIOXIDE (test code = CO2) 22 mEq/L 21-33 N ANION GAP (test code = GAP) 13 0-20 N GLUCOSE (test code = GLU) 131 mg/dL 70-110 H BLOOD UREA NITROGEN (test code = BUN) 45 mg/dL 7-18 H GLOMERULAR FILTRATION RATE (test code = GFR) 22.8 90-95 L Units of measure = ml/min/1.73 m2 CREATININE (test code = CREAT) 3.4 mg/dL 0.6-1.3 H CALCIUM (test code = CA) 8.0 mg/dL 8.0-10.5 N CREATINE KINASE (CK)2019-06-05 21:21:00* Test Item Value Reference Range [facility]ation [facility] (CK) (test code = CK) 1586 35-232 HH Result is in IN TERNATIONAL UNITS/LITER [id number] 21:21:00* Test Item Value Reference Range Interpretation [facility] CKMB (test code = CKMBT) 19.1 ng/mL 0-5.0 HH CUT OFF:>5 ng/mL is suggested as being consistent with AMI. [id number] 21:21:00* Test Item Value Reference Range Interpretation [facility] TROPONIN-I (test code = TROPI) 53.500 ng/mL 0.000-0.045 HH Negative: <= 0.0 45 Positive: >= 0.046 Correlation with serial results, other cardiac markers andclinical findings is necessary to determine the clinicalsignificance of this result. Results using different methodologies should not be comparedto one another as quantitative results may vary by method. B-TYPE NATRIURETIC [id number] 21:00:00* Test Item Value Reference Range Interpretation [facility] B-TYPE NATRIURETIC PEPTIDE ( test code = BNP) 1010.0 PG/ML 0-100 H BASIC METABOLIC [id number] 20:59:00* Test Item Value Reference Range Interpretation Comme [facility] SODIUM (test code = NA) 139 mEq/L 134-147 N POTASSIUM (test code = K) 4.9 mEq/L 3.4-5.0 N CHLORIDE (test code = CL) 109 mEq/L 100-108 H CARBON DIOXIDE (test code = CO2) 22 mEq/L 21-33 N ANION GAP (test code = GAP) 13 0-20 N GLUCOSE (test code = GLU) 131 mg/dL 70-110 H BLOOD UREA NITROGEN (test code = BUN) 45 mg/dL 7-18 H GLOMERULAR FILTRATION RATE (test code = GFR) 22.8 90-95 L Units of measure = ml/min/1.73 m2 CREATININE (test code = CREAT) 3.4 mg/dL 0.6-1.3 H CALCIUM (test code = CA) 8.0 mg/dL 8.0-10.5 N CREATINE KINASE (CK)2019-06-05 20:59:00* Test Item Value Reference Range Interpretation Comme nts CREATINE KINASE (CK) (test code = CK) 35-232 [id number] 20:59:00* Test Item Value Reference Range Interpretation Comme nts CKMB (test code = CKMBT) ng/mL 0-5.0 [id number] 20:59:00* Test Item Value Reference Range Interpretation Comme nts TROPONIN-I (test code = TROPI) ng/mL 0.000-0.045 - XR CHEST 1 [id number] 17:34:00FAX: Dora Bedoya [phone] [place]: St: ADM FAX: OmerSantiShawanda [phone] ---- Name: DUSTY FRANCOIS [facility] : 1960 Age/S: 58/M [address] [place] [address] Unit #: [id number] Loc: G.[address] [place] [address] Phys: Kyung Bedoya MD Acct: [id number] Dis Date: Status: ADM IN PHONE #: [phone] Exam Date: 06/05/2019 1728 FAX #: [phone] Reason: SOB. EXAMS: CPT CODE: [id number] XR CHEST 1 V 25431 CHEST, ONE VIEW: HISTORY: Shortness of breath COMPARISON EXAM(S): Back to December 2016 FINDINGS: This single portable view was obtained at 1651 hours on 06/05/2019 and shows milddiffuse perihilar infiltrates which have developed since 06/04/2019. No consolidations or effusions.No evidence of pneumothorax. IMPRESSION: 1. Mild bilateral parahilar infiltrates have developed since yesterday. Edema and pneumonia are both possible. 2. Otherwise unremarkable exam. SL:01 at 1734 Reported and signed by: Alfredo Lim M.D. CC: Kyung Bedoya MD; Shawanda Wild DO Technologist: Emely Mishra RT(R) Trnscrd Date/Time/By: 06/05/2019 (5659) : By: Joel Orig Print D/T: S: 06/05/2019(6936) PAGE 1 Signed ReportGLUBED 2019-06-05 17:22:00* Test Item Value Reference Range Interpretation Comme nts GLUBED (test code = GLUBED) 120 MG/DL 70-110 H Performed by cer mikalied tar heater operator at [facility] ARTERIAL BLOOD [id number] 16:29:00* Test Item Value Reference Range Interpretation Comme nts ARTERIAL BLOOD GAS PH (test code = PHA) 7.352 7.35-7.45 N ARTERIAL BLOOD GAS PCO2 (nate t code = PCO2A) 31.4 mmHg 35-45 L ARTERIAL BLOOD GAS PO2 (test code = PO2A) 61 mmHg 80-100 L BICARBONATE TOTAL HCO3 (test code = HCO3) 17.4 mmol/L 22.0-26.0 L BASE EXCESS (test code = BARBRA) -8.0 mmol/L -4-4 L ABG O2 SATURATION (test code = SATA) 90 % 90-100 N ABG DELIVERY (test code = MEGA) Hi-himanshu Can ABG TEMPERATURE (test code = TEMPA) 98.6 F ABG SITE (test code = SITEA) R Rad TCO2 ARTERIAL (test code = TCO2A) 18 - DUP EXTRACRANIAL [id number] 14:00:00Name: DUSTY FRANCOIS [facility] : 1960 Age/S: 58 / M [address] [place] [address] Unit #: [id number] Loc: BR[place]DA Kw[place] [address] Phys: Marbella Haley MD Acct: [id number] Dis Date: Status: ADM IN PHONE #: [phone] Exam Date: 06/05/2019 1345 FAX #: [phone] Reason: stroke EXAMS: CPT CODE: [id number] DUP EXTRACRANIAL ALEJANDRA [id number] STUDY: - DUP EXTRACRANIAL ALEJANDRA 06/05/2019 9:02 AM Ordering Physician: Marbella Haley MD Patient Name: DUSTY FRANCOIS MR: [id number] : 1960; Age: 58 years y/o Male Clinical Indication: stroke Comparison: None TECHNIQUE: Alexander-scale, color Doppler and spectral Doppler of the carotid arteries was performed. Any reported ICA stenoses indirectly reference the distal internal carotid diameter as the denominator for the stenosis measurement, utilizing consensus panel criteria. FINDINGS: RIGHT CAROTID Grayscale images:Mild plaque ICA PSV: 75.6 cm/sec CCA PSV: 96.4 cm/sec ICA/CCA PSV RATIO:0.6 Vertebral flow: Antegrade. External carotid: Patent. LEFT CAROTID SYSTEM Grayscale images: Mild plaque ICA PSV: 86.5 cm/sec CCA PSV: 98.8 cm/sec ICA/CCA PSV RATIO:0.9 Vertebral flow: No flow is identified External carotid: Patent. IMPRESSION: RIGHT: ICA stenosis <50% by velocity criteria. LEFT: ICA stenosis <50% by velocity criteria. No flow identified in theleft vertebral artery PAGE 1 Signed Report (CONTINUED) Name: DUSTY FRANCOIS [facility] : 1960 Age/S: 58 / M [address] [place] [address] Unit #: [id number] Loc: [place] [address] Phys: Marbella Haley MD Acct: [id number] Dis Date: Status: ADM IN PHONE #: [phone] Exam Date: 06/05/2019 134 FAX #: [phone] Reason: stroke EXAMS: CPT CODE: [id number] DUP EXTRACRANIAL ALEJANDRA 47413 (Continued) Consensus panel Doppler US criteria for diagnosis of ICA stenosis: Stenosis (%) ICA PSV (cm/sec) ICA/CCA ratio ------ <50 <125 <2.0 50-69 125-230 2.0-4.0 >70 but less than >230 >4.0 near occlusion Near occlusion High, low, or Variable undetectable SL: [id number] at 1400 Reported and signed by: Amadou Vizcaino M.D. CC: Kyung Bedoya MD; Shawanda Hancock DO; Marbella Haley MD Technologist: Alberto Watts RDMS(A)(OB) Trnscb Date/Time: 06/05/2019 (1400) [email or web address] Orig Print D/T: S: 06/05/2019 (1403) Probe: PAGE 2 Signed [id number] 12:06:00* Test Item Value Reference Range Interpretation Comme nts GLUBED (test code = GLUBED) 156 MG/DL 70-110 H Performed by cer tified tar heater operator at [facility] [id number] 08:19:00* Test Item Value Reference Range Interpretation Comme nts GLUBED (test code = GLUBED) 148 MG/DL 70-110 H Performed by [facility] tified tar heater operator at [facility] BASIC METABOLIC [id number] 06:20:00* Test Item Value Reference Range Interpretation Comme nts SODIUM (test code = NA) 140 mEq/L 134-147 N POTASSIUM (test code = K) 4.9 mEq/L 3.4-5.0 N CHLORIDE (test code = CL) 110 mEq/L 100-108 H CARBON DIOXIDE (test code = CO2) 22 mEq/L 21-33 N ANION GAP (test code = GAP) 13 0-20 N GLUCOSE (test code = GLU) 151 mg/dL 70-110 H BLOOD UREA NITROGEN (test code = BUN) 37 mg/dL 7-18 H GLOMERULAR FILTRATION RATE (test code = GFR) 35.8 90-95 L Units of measure = ml/min/1.73 m2 CREATININE (test code = CREAT) 2.3 mg/dL 0.6-1.3 H CALCIUM (test code = CA) 8.0 mg/dL 8.0-10.5 N LIPID PROFILE (CORONARY RISK)2019-06-05 06:20:00* Test Item Value Reference Range Interpretation Comme nts TRIGLYCERIDES (test code = TRIG) 87 mg/dL 40-150 N CHOLESTEROL (test code = CHOL) 151 mg/dL <200 CHOLESTEROL/HDL RATIO (test code = CHOLHDL) 3.28 RATIO 3.43-4.97 L RISK ASSOCIATED WITH CHOL/HDL RATIOS: RISK MALE FEMALE1/2 AVERAGE 3.43 3.27AVERAGE 4.97 4.442X AVERAGE 9.55 7.053X AVERAGE 23.39 11.04 NOTE THAT THE REFERENCE VALUE IS RELATEDTO RISK LEVELS RECOMMENDED BY THE NATL.HEART, LUNG, AND BLOOD INST. HDL CHOLESTEROL (test code = HDL) 46.0 mg/dL 32-72 N LIPOPROTEIN LDL (test code = LDL) 96 mg/dL 0-100 N <100 CEXBAKQ88 0-129 NEAR OPTIMAL/ABOVE [id number] HIGH>TL=805 VERY HIGH*Guidelines provided by the National Cholesterol EducationProgram Adult Treatment Panel III BASIC METABOLIC [id number] 06:16:00* Test Item Value Reference Range Interpretation Comme nts SODIUM (test code = NA) 140 mEq/L 134-147 N POTASSIUM (test code = K) 4.9 mEq/L 3.4-5.0 N CHLORIDE (test code = CL) 110 mEq/L 100-108 H CARBON DIOXIDE (test code = CO2) 22 mEq/L 21-33 N ANION GAP (test code = GAP) 13 0-20 N GLUCOSE (test code = GLU) 151 mg/dL 70-110 H BLOOD UREA NITROGEN (test code = BUN) 37 mg/dL 7-18 H GLOMERULAR FILTRATION RATE (test code = GFR) 35.8 90-95 L Units of measure = ml/min/1.73 m2 CREATININE (test code = CREAT) 2.3 mg/dL 0.6-1.3 H CALCIUM (test code = CA) 8.0 mg/dL 8.0-10.5 N LIPID PROFILE (CORONARY RISK)2019-06-05 06:16:00* Test Item Value Reference Range Interpretation Comme nts TRIGLYCERIDES (test code = TRIG) mg/dL 40-150 CHOLESTEROL (test code = CHOL) 151 mg/dL <200 CHOLESTEROL/HDL RATIO (test code = CHOLHDL) RATIO 3.43-4.97 HDL CHOLESTEROL (test code = HDL) mg/dL 32-72 LIPOPROTEIN LDL (test code = LDL) mg/dL 0-100 HGBA1C%2019-06-05 05:50:00* Test Item Value Reference Range Interpretation Comme nts HGBA1C% (test code = HGBA1C%) 9.1 %A1C 4.8-6.0 H CBC W/AUTO [id number] 05:23:00* Test Item Value Reference Range Interpretation Comme nts WHITE BLOOD CELL (test code = WBC) 11.93 x10 3/uL 4.5-11.0 H RED BLOOD CELL (test code = RBC) 2.94 x10 6/uL 4.00-5.60 L HEMOGLOBIN (test code = HGB) 8.2 g/dL 12.5-16.9 L HEMATOCRIT (test code = HCT) 25.8 % 37.5-50.7 L MEAN CELL VOLUME (test code = MCV) 87.8 fL 81.0-99.0 MEAN CELL HGB (test code = MCH) 27.9 pg 27.0-33.0 N MEAN CELL HGB CONCETRATION (test code = MCHC) 31.8 g/dL 33.0-37.0 L RED CELL DISTRIBUTION WIDTH CV (test code = RDW) 14.3 % 11.5-14.5 N RED CELL DISTRIBUTION WIDTH SD (test code = RDW-SD) 44.0 fL 37.0-54.0 N PLATELET COUNT (test code = PLT) 264 x10 3/uL 150-400 N MEAN PLATELET VOLUME (test code = MPV) 10.5 fL 7.0-9.0 H NEUTROPHIL % (test code = NT%) 83.0 % 56.0-77.0 H IMMATURE GRANULOCYTE % (test code = IG%) 0.6 % 0.0-2.0 N LYMPHOCYTE % (test code = LY%) 7.0 % 14.0-32.0 L MONOCYTE % (test code = MO%) 9.3 % 4.8-9.0 H EOSINOPHIL % (test code = EO%) 0.0 % 0.3-3.7 L BASOPHIL % (test code = BA%) 0.1 % 0.0-2.0 N NUCLEATED RBC % (test code = NRBC%) 0.0 % 0-0 N NEUTROPHIL # (test code = NT#) 9.91 x10 3/uL 2.0-7.6 H IMMATURE GRANULOCYTE # (test code = IG#) 0.07 x10 3/uL 0.00-0.03 H LYMPHOCYTE # (test code = LY#) 0.83 x10 3/uL 1.0-3.8 L MONOCYTE # (test code = MO#) 1.11 x10 3/uL 0.1-0.8 H EOSINOPHIL # (test code = EO#) 0.00 x10 3/uL 0.0-0.2 N BASOPHIL # (test code = BA#) 0.01 x10 3/uL 0.0-0.2 N NUCLEATED RBC # (test code = NRBC#) 0.00 x10 3/uL 0.0-0.1 N MANUAL DIFF REQUIRED (test code = MDIFF) NO [id number] 20:50:00* Test Item Value Reference Range Interpretation Comme nts GLUBED (test code = GLUBED) 115 MG/DL 70-110 H Performed by cer tified tar heater operator at [facility] [id number] 17:59:00* Test Item Value Reference Range Interpretation Comme nts GLUBED (test code = GLUBED) 137 MG/DL 70-110 H Performed by cer tified tar heater operator at [facility] [id number] 14:23:00* Test Item Value Reference Range Interpretation Comme nts GLUBED (test code = GLUBED) 152 MG/DL 70-110 H Performed by cer tified tar heater operator at [facility] [id number] 13:14:00* Test Item Value Reference Range Interpretation Comme nts ACT-ISTAT (test code = ACTI) 368 SEC 74-137 H Performed by cer tified tar heater operator at [facility] - MRI BRAIN WO/W [id number] 11:12:00FAX: Dora Bedoya [phone] [place]: St: ADM FAX: Shawanda Wild [phone] ---- [facility] 1960 Age/S: 58/[place] [address] [place] [address] Unit #: [id number] Loc: [place] [address] Phys: Rashad Louis MD Acct: [id number] Dis Date: Status: ADM IN PHONE #: Exam Date: 06/04/2019 1056 FAX #: [phone] Reason: R PARIETAL EDEMA. SYNCOPE EXAMS: CPT CODE: [id number] MRI BRAIN WO/W CONT 07680 Clinical Indication: Right parietal lobe edema on CT. Syncope. Comparison: Brain CT 03/05/2019 TECHNIQUE: Multiplanar multisequence MR imaging of the brain was performed without and with intravenous contrast. IV CONTRAST: 19 mL duodenum was administered intravenous. FINDINGS: SCALP AND CALVARIUM:No focal enhancing abnormalities. VENTRICLES AND SULCI:Normalin size and configuration for the patient's age. EXTRA-AXIAL SPACES:No extra-axial fluid collection or mass effect. BRAIN PARENCHYMA: Faint restricted diffusion in the right parietal lobe with peripheral cortical enhancement and mild T2 FLAIR hyperintense edema/gliosis. No mass effect. No abnormalT1 or T2 gradient signal within the area of abnormal enhancement to suggest cortical necrosis or blood products. There is a subcentimeter perivascular space or chronic lacunar infarction in the rightfrontal torres radiata. Otherwise, there is no abnormal signal in the brain parenchyma. There is no mass effect or midline shift. There there is no magnetic susceptibility to suggest intraparenchymal hemorrhage. SKULL BASE: The skull base, craniocervical junction, and brainstem are unremarkable. CH IASM/SELLA: The optic chiasm and sella are unremarkable. VESSELS: The expected intracranial flow voids are present. IMPRESSION: Faint restricted diffusion and enhancement in the right parietal lobe corresponds to the abnormality seen on the brain CT. This area represents a subacute infarction, without hemorrhage or mass effect. Recommend correlation with the patient's history. SL: [id number] PAGE 1 Signed Report (CONTINUED) FAX: Dora Bedoya [phone] [place]: St: ADM FAX: Shawanda Wild [phone] Name: DUSTY FRANCOIS [facility] : 1960 Age/S: 58/M [address] [place] [address] Unit #: [id number] Loc: [place] [address] Phys: Rashad Louis MD Acct: [id number] Dis Date: Status: ADM IN PHONE #: [phone] Exam Date: 06/04/2019 1056 FAX #: [phone] Reason: R PARIETAL EDEMA. SYNCOPE EXAMS: CPT CODE: [id number] MRI BRAIN WO/W CONT 94420 (Continued) at 1112 Reported and signed by: Yousif Quevedo M.D. CC: Kyung Bedoya MD; Shawanda Wild DO Technologist: Dianne Puente RT(MR)(CT) Trnscrd Date/Time/By: 06/04/2019 (1112) : By: [email or web address] Orig Print D/T: S: 06/04/2019 (1115) PAGE 2 Signed ReportLIPOPROTEIN [id number] 10:14:00* Test Item Value Reference Range Interpretation Comme nts LIPOPROTEIN LDL (test code = LDL) 125 mg/dL 0-100 H <100 RKPHNVK02 0-129 NEAR OPTIMAL/ABOVE [id number] [id number] HIGH>OW=924 VERY HIGH*Guidelines provided by the National Cholesterol EducationProgram Adult Treatment Panel III [id number]-[id number] 09:35:00* Test Item Value Reference Range Interpretation Comme nts TROPONIN-I (test code = TROPI) 39.500 ng/mL 0.000-0.045 Negative: <= 0. 045 Positive: >= 0.046 Correlation with serial results, other cardiac markers andclinical findings is necessary to determine the clinicalsignificance of this result. Results using different methodologies should not be comparedto one another as quantitative results may vary by method. TROPONIN-I [id number] 02:34:00* Test Item Value Reference Range Interpretation Comme [facility] TROPONIN-I RAPID (test code = TROPIRAP) 12.01 ng/mL 0.00-0.08 HH Performed by cer tified tar heater operator at [facility] Negative: <= 0.08 Positive: >= 0.09An elevated troponin value alone is not sufficient todiagnose a myocardial infarction. Rather, the patient sclinical presentation (history, physical exam) and ECGshould be used in conjunction with troponin in thediagnostic evaluation of suspected myocardial infarction. Aserial sampling protocol is recommended to facilitate the identification of temporal changes in troponin levels characteristic of MN. - XR SHOULDER 2 + V [id number] 01:20:00FAX: Shawanda Wild [phone] [place]: St: ADM Name: DUSTY FRANCOIS [facility] : 1960 Age/S: 58/M[address] [facility] Unit #: [id number] Loc: [place] [address] Phys: Rashad Louis MD Acct: [id number] Dis Date: Status: ADM IN PHONE #: [phone] Exam Date: 06/04/201937 FAX #: [phone] Reason: pain, fall EXAMS: CPT CODE: [id number] XR SHOULDER 2 + [place] [address] EXAM: CR, XR SHOULDER 2 VIEWS LT: 06/04/2019, 0017 hours History: Fall. Weakness. Passed out. Pain. COMPARISON: None. FINDINGS: Frontal and lateral radiographs of the left shoulder is submitted. Alignment is satisfactory. There is no acute fracture, dislocation or lytic bony lesion. No radiopaque foreign body seen. Soft tissues are unremarkable. If indicated, follow-up radiograph or MRI can be obtained for complete assessment. IMPRESSION: 1. No acute fracture or dislocation of the left shoulder seen SL:ALFRED at 0120 Reported and signed by: Yakov Lemos M.D. CC: Shawanda Wild DO Technologist: Shaylee Adames, RT(R); Reno Tolentino RT(R) [facility] Date/Time/By: 06/04/2019 (0120) : By: [email or web address] Orig Print D/T: S: 06/04/2019 (0124) PAGE 1 Signed Report- XR KNEE 1 OR 2 V [id number] 01:18:00FAX: Shawanda Wild [phone] [place]: St: ADM Name: DUSTY FRANCOIS [facility] : 1960 Age/S: 58/M[address] [facility] Unit #: [id number] Loc: [place] [address] Phys: Rashad Louis MD Acct: [id number] Dis Date: Status: ADM IN PHONE #: [phone] Exam Date: 06/04/201937 FAX #: [phone] Reason: pain, warm/cellulitis EXAMS: CPT CODE: [id number] XR KNEE 1 OR 2 [place] [address] EXAM: CR, XR KNEE 1 OR 2 VIEWS RT: 06/04/2019, 0017 hours History: Right knee swelling. Weakness. Passedout. Pain. COMPARISON: None. FINDINGS: Frontal and lateral radiographs of the right knee is submitted. Alignment is satisfactory. There is no acute fracture, dislocation or lytic bony lesion. No radiopaque foreign body seen. Mild soft tissue swelling anterior aspect of the knee. If indicated, follow-up radiograph or MRI can be obtained for complete assessment. IMPRESSION: 1. No acute fracture ordislocation of the right knee seen SL:ALFRED at 0118 Reported and signed by: Yakov Lemos M.D. CC: Shawanda Wild DO Technologist: Shaylee Adames, RT(R); RT Cruz(R) [facility] Date/Time/By: 06/04/2019 (0118) : By: [email or web address] Orig Print D/T: S: 06/04/2019 (0123) PAGE 1 Signed Report- XR CHEST 1 [id number] 01:14:00FAX: Shawanda Wild [phone] [place]: St: ADM Name: DUSTY FRANCOIS [facility] : 1960 Age/S: 58/M [address] [place] [address] Unit #: [id number] Loc: [place] [address] Phys: Rashad Louis MD Acct: [id number] Dis Date: Status: ADM IN PHONE #: [phone] Exam Date: 06/04/201937 FAX #:[phone] Reason: Syncope EXAMS: CPT CODE: [id number] XR CHEST 1 V 04757 EXAM: CR, XR chest one view: 06/04/2019, 0017 hours HISTORY: Syncope TECHNIQUE: 1 view of the chest. COMPARISON: 09/13/2018 FINDINGS: Trachea is midline. Heart is normal in size. Pulmonary vascularity is unremarkable. There is no airspace consolidation, pleural effusion or pneumothorax. Osseous structures are stable. IMPRESSION: No acute cardiopulmonary disease seen. SL: [JSYED-H] at 0114 Reported and signed by: Yakov Lemos M.D. CC: Shawanda Wild DO Technologist: Shaylee Adames, RT(R); Reno Tolentino RT(R) Trnnyrd Date/Time/By: 06/04/2019 (0114) : By: [email or web address] Orig Print D/T: S: 06/04/2019 (0117) PAGE 1 Signed ReportB-TYPE NATRIURETIC PEPTIDE 2019-06-04 00:58:00* Test Item Value Reference Range Interpretation Comme nts B-TYPE NATRIURETIC PEPTIDE ( test code = BNP) 115.3 PG/ML 0-100 H - CT HEAD/BRAIN W/O [id number] 00:58:00Name: DUSTY FRANCOIS [facility] : 1960 Age/S: 58 / M [address] [place] [address] Blvd Unit #: [id number] Loc: [place] [address] Phys: Rashad Louis MD Acct: [id number] Dis Date: Status: ADM INPHONE #: [phone] Exam Date: 06/04/2019 0036 FAX #: [phone] Reason: Syncope EXAMS: CPT CODE: [id number] CT HEAD/BRAIN W/O CONT 30749 EXAM: CT, CT HEAD/BRAIN W/O CONTRAST: 06/04/2019, 0037 hours HISTORY: Syncope COMPARISON: None available. TECHNIQUE: CT images were obtained from the foramen magnum to the vertex without the use of intravenous contrast on a multidetector CT. CT imaging was performed with exposure control parameters to reduce radiation dose. Coronal and sagittal reconstructions were obtained. CT radiation dose DLP: 419.17 mGy-cm FINDINGS: BRAIN PARENCHYMA: A triangular area of decreased attenuation in the right parietal lobe, probably representing edema. The periventricular white matter appears unremarkable. No focal mass lesions on this noncontrast head CT. No mass effect, midline shift or edema. There are no intra-axial or extra-axial fluid collections, intraventricular or intraparenchymal hemorrhage. VENTRICLES: The lateral ventricles, third and fourth ventricles appear unremarkable. The basilar cisterns are normal. ORBITS, MASTOIDS AND PARANASAL SINUSES: The visualized orbits are unremarkable. The visualized paranasal sinuses are unremarkable. The mastoidair cells are clear. SKULL: There are no osseous abnormalities. If there is further concern for int racranial pathology or acute stroke, MRI of the brain may be performed for complete assessment. IMPRESSION: 1. Hypodensity in the right parietal lobe may represent mild edema or recent infarct. If indicated, MRI can be obtained for complete assessment 2.. No noncontrast CT evidence of acute hemorrhage, calvarial fracture or midline shift. Finding were discussed with Dr. Louis on 06/04/2019, 0056 hours PAGE 1 Signed Report (CONTINUED) Name: DUSTY FRANCOIS [facility] : 1960 Age/S:58 / M [address] [place] [address] Unit #: [id number] Loc: [place] [address] Phys: Rashad Louis MD Acct: [id number] Dis Date: Status: ADM IN PHONE #: [phone] Exam Date: 06/04/2019 0036 FAX #: [phone] Reason: Syncope EXAMS: CPT CODE: [id number] CT HEAD/BRAIN W/O CONT 36567 (Continued) SL:ALFRED at 0058 Reported and signed by: Yakov Lemos M.D. CC: Shawanda Hancock DO Technologist:RT Gav[place](R)(CT) CTDI: DLP: Trnscb Date/Time: 06/04/2019 (005) [email or web address] Orig Print D/T: S: 06/04/2019 (010) PAGE 2 Signed ReportLACTIC ACID [id number] 00:39:00* Test Item Value Reference Range Interpretation Comme nts LACTIC ACID POC (test code = LACTP) 0.7 MMOL/L 0.90-1.70 L Performed by certified tar heater operator at [facility] CHEMISTRY 8 [id number] 00:30:00* Test Item Value Reference Range Interpretation Comme nts ISTAT-SODIUM (test code = NAP) MMOL/L 134-147 ISTAT-POTASSIUM (test code = KP) MMOL/L 3.4-5.0 ISTAT-CHLORIDE (test code = CLP) MMOL/L 100-108 ISTAT CARBON DIOXIDE (test c ode = ISTAT-CO2) mmol/L 21-33 N ISTAT CALCIUM IONIZED (test code = ISTAT-KEY) MG/DL 1.12-1.32 ISTAT-GLUCOSE (test code = GLUP) MG/DL 70-110 H ISTAT-BUN (test code = BUNP) MG/DL 7-18 H BEDSIDE CREATININE (test cod e = CREATBED) MG/DL 0.6-1.3 H GLOMERULAR FILTRATION RATE P OC (test code = GFRBED) 45 ML/MIN CHEMISTRY 8 [id number] 00:30:00* Test Item Value Reference Range Interpretation Comme nts ISTAT-SODIUM (test code = NAP) 138 MMOL/L 134-147 N ISTAT-POTASSIUM (test code = KP) 4.8 MMOL/L 3.4-5.0 N ISTAT-CHLORIDE (test code = CLP) 105 MMOL/L 100-108 N Performed by certified tar heater operator at [facility] ISTAT CARBON DIOXIDE (test code = ISTAT-CO2) 24.0 mmol/L 21-33 N ISTAT CALCIUM IONIZED (test code = ISTAT-KEY) 1.21 MG/DL 1.12-1.32 N ISTAT-GLUCOSE (test code = GLUP) 228 MG/DL 70-110 H ISTAT-BUN (test code = BUNP) 32 MG/DL 7-18 H BEDSIDE CREATININE (test code = CREATBED) 2.0 MG/DL 0.6-1.3 H GLOMERULAR FILTRATION RATE POC (test code = GFRBED) 45 ML/MIN CBC W/AUTO [id number] 00:29:00* Test Item Value Reference Range Interpretation Comme nts WHITE BLOOD CELL (test code = WBC) 8.80 x10 3/uL 4.5-11.0 N RED BLOOD CELL (test code = RBC) 3.58 x10 6/uL 4.00-5.60 L HEMOGLOBIN (test code = HGB) 9.8 g/dL 12.5-16.9 L HEMATOCRIT (test code = HCT) 30.1 % 37.5-50.7 L MEAN CELL VOLUME (test code = MCV) 84.1 fL 81.0-99.0 N MEAN CELL HGB (test code = MCH) 27.4 pg 27.0-33.0 N MEAN CELL HGB CONCETRATION (test code = MCHC) 32.6 g/dL 33.0-37.0 L RED CELL DISTRIBUTION WIDTH CV (test code = RDW) 13.4 % 11.5-14.5 N RED CELL DISTRIBUTION WIDTH SD (test code = RDW-SD) 41.8 fL 37.0-54.0 N PLATELET COUNT (test code = PLT) 311 x10 3/uL 150-400 N MEAN PLATELET VOLUME (test c ode = MPV) 9.7 fL 7.0-9.0 H NEUTROPHIL % (test code = NT%) 68.4 % 56.0-77.0 N IMMATURE GRANULOCYTE % (test code = IG%) 0.6 % 0.0-2.0 N LYMPHOCYTE % (test code = LY%) 21.8 % 14.0-32.0 N MONOCYTE % (test code = MO%) 8.0 % 4.8-9.0 N EOSINOPHIL % (test code = EO%) 1.0 % 0.3-3.7 N BASOPHIL % (test code = BA%) 0.2 % 0.0-2.0 N NUCLEATED RBC % (test code = NRBC%) 0.0 % 0-0 N NEUTROPHIL # (test code = NT#) 6.02 x10 3/uL 2.0-7.6 N IMMATURE GRANULOCYTE # (test code = IG#) 0.05 x10 3/uL 0.00-0.03 H LYMPHOCYTE # (test code = LY#) 1.92 x10 3/uL 1.0-3.8 N MONOCYTE # (test code = MO#) 0.70 x10 3/uL 0.1-0.8 N EOSINOPHIL # (test code = EO#) 0.09 x10 3/uL 0.0-0.2 N BASOPHIL # (test code = BA#) 0.02 x10 3/uL 0.0-0.2 N NUCLEATED RBC # (test code = NRBC#) 0.00 x10 3/uL 0.0-0.1 N MANUAL DIFF REQUIRED (test c ode = MDIFF) NO - XR L-SPINE W/BEND [id number] 12:42:00FAX: Shawanda Wild [phone] [place]: St: REG Name: DUSTY FRANCOIS [facility] [place] : 1960 Age/S: 58/M [address] [place] [address] Unit #: [id number] Loc: [place] [address] Phys: Shawanda Wild DO Acct: [id number] Dis Date: Status: REG CLI PHONE #: [phone] Exam Date: 01/23/2019 1237 FAX#: [phone] Reason: M54.5 LOW BACK PAIN EXAMS: CPT CODE: [id number] XR L-SPINE W/BEND VIEW 67681 AP, LATERAL, FLEXION AND EXTENSION VIEWS OF THE LUMBAR SPINE HISTORY: Back pain. Comparison made to CT abdomen pelvis dated 01/19/15 FINDINGS: There is no abnormal subluxation with flexion or extension. There is very mild intervertebral disc space narrowing at L4-5. No pars defect or significant facet degeneration. Soft tissues are unremarkable. IMPRESSION: Mild L4-5 degenerative disc disease. SL:01 at 1242 Reported andsigned by: Alberto Lui M.D. CC: Shawanda Wild DO Technologist: RT Ruma(Kinga) Trnscrd Date/Time/By: 01/23/2019 (7502) : By: Galileo Orig Print D/T: S: 01/23/2019 (1245) PAGE 1 Signed ReportSURGICAL [id number] 10:53:00 RUN DATE: 10/01/18 [facility] *LIVE* PAGE 1 RUN TIME: 1053 Specimen Inquiry RUN USER: INTERFACE -------- ----PATIENT: DUSTY FRANCOIS LOC: KATHYN1 U #: [id number] AGE/SX: 58/M ROOM: [facility] RE09/14/18REG DR: Maldonado Hernandez MD : 64 BED: 1 DIS: 09/23/18 STATUS: DIS IN TLOC: SPEC #: [id number] RECD: 09/22/18 STATUS: JAYCE IVY #: [id number] LUCINA: 09/22/[address]: Maldonado Hernandez MD ENTERED: 10/01/18 SP TYPE: SURG SPEC OTHR DR: Self Referred Benraouane,Fethi MD Andre Mcclure Chad C DPM Jogi, Vikas MD Peck-Samman, Tammi R DOORDERED: GM LEVEL 4 CODES: [id number] - EXTREMITY, NOS COPIES TO: Self Referred Maldonado Hernandez MD [address] [facility] [address] [place] [address] Yvette Rae MD [address] [place] [address] Andre Mcclure MD [address] [place] [address] Demarcus Barrera DPM [address] [place] [address] Vel Montiel MD [address] [facility] [address] [place] [phone] Shawanda Wild DO [address] [place] [address] PROCEDURES: GM LEVEL 4 (Incomplete) CONTINUED ON NEXT PAGE RUN DATE: 10/01/18 [facility] *LIVE* PAGE 2 RUN TIME: 1053 Specimen Inquiry RUN USER: INTERFACE SPEC #: [id number] PATIENT: DUSTY FRANCOIS #[id number] (Continued) TISSUES: 1. EXTREMITY, NOS - Extremity, right 2nd toe, amputation FINAL DIAGNOSIS Extremity, right 2nd toe, amputation: Gangrenous necrosis with associated acute and chronic inflammation, skin, and soft tissue margin show mild acute and chronic inflammation; acute and chronic osteomyelitis, bone margin, without significant inflammation. GROSS AND MICROSCOPIC GROSS EXAMINATION: Received in formalin and labeled right second toe is a toe that measures 4.5 cm in length and 1.5 cm in diameter. Sections of the cut surgical margins are submitted (A). The distal portion of the toe is gangrenous and this area measures 2.5 cm in greatest dimension. A section is submitted (B). The bone is submitted for decalcification and subsequent microscopic examination. MICROSCOPIC EXAMINATION: Sections of the skin and soft tissue surgical margins reveal viable tissue with some fibrosis and some inflammation. The section through the area of gangrene shows wet and dry gangrene with extensive necrosis. Sections of the bone from the center reveal acute and chronic inflammation and fibrosis of the marrow space. Section of the bone from resection margin revealed no significant inflammation. POST-OP DIAGNOSIS Gangrene, bone infection right foot 2nd digit PRE-OP DIAGNOSIS Gangrene, bone infection right foot 2nd dig it Signed SIGNATURE ON FILE Beck Garrett MD 10/01/[address] HEAD W/O CONT 2017-03-29 20:40:00[place] [id number] IMAGING REPORTPatient Name: Noemi FRANCOIS of Service: [id number]: [phone] Sex: M Order #: [id number] [facility] 1960 X[place]Ray Number: [id number] Record Number: [id number] Hospital Number: [id number] Physician: Ilya ROUSE Physician: EMIL ROUSE SCAN OF THE BRAIN WITHOUT CONTRAST:CLINICAL HISTORY: Left-sided numbness; blurred vision and dizzinessTECHNIQUE: 5 mm axial sections with coronal and sagittal reconstructions.This CT exam was performed using one or more of the following dosereduction techniques: Automated exposure control, adjustment of the MA andor KV according to patient size or use of iterative reconstructiontechnique.FINDINGS: The bony calvarium is intactand the visualized sinuses areclear.The unenhanced brain parenchyma is normal with no evidence of acute bleedor midline shift.There is no evidence of mass effect or edema.IMPRESSIONNormal unenhanced CT scan of the brain.Electronically Signed By: Nathan Zimmerman M.D., 03/29/2017 8:38 PMLegally authenticated by KEYSHAWN Baez 2017-03-29 20:38:24CHEST 1 VIEW [id number] 20:39:[address] [address]WKCPYLJWTT IMAGING REPORTPatient Name: Noemi FRANCOIS of Service: [id number]: 56 Sex: M Order #: [id number] Room: QERDOB: 1960 X-Ray Number: [id number] Record Number: [id number] Hospital Number: [id number] Physician: Ilya ROUSE Physician: CAROL ROUSE PORTABLE CHEST:CLINICAL HISTORY: Chest pain may: Left-sided weaknessTECHNIQUE: One viewFINDINGS: The heart and vascularity are within normal limits and the lungsare clear.The bony thorax is intact.Impression: Normal chestElectronically Signed By: Nathan Zimmerman M.D., 03/29/2017 8:37 PMLegally authenticated by KEYSHAWN Baez 2017-03-29 20:37:30 Notes Date/Time Note Provider Source 2021-03-29 11:59:00 [id number]:59:00 H [facility])EMERGENCY PROVIDER REPORTREPORT#:[id number] REPORT STATUS: SignedDATE:03/29/21 TIME:1159 PATIENT: DUSTY FRANCOIS UNIT #: [id number]#: [id number] ROOM/BED:: 62 AGE: 60 SEX: M PCP PHYS: Shawanda Wild DOSERVICE AUTHOR: Cynthia Marroquin MD * ALL edits or amendments must be made on the electronic/computer document * HPI-Hip/Pelvis Prob/Inj Free Text HPI NotesFree Text HPI [id number] AAM with PMH of DM, HTN, CAD s/p MN, and CVA (no residual weakness) p/w nontraumatic left hip pain x 3 days. Pain rated 10 out of 10 on pain scale; exacerbated with movement and bearing weight. No relief with Bagley. First episode of symptoms similar to this. GeneralInitial Greet Date/Time 03/29/21 1149 PresentationChief Complaint Hip pain L, Hip dec ROM L Review of Systems ROS StatementsAll systems rev neg except as marked. Focused Review of SystemsConstitutionalDenies: Chills, Fever, Lethargy. MusculoskeletalReports: Joint pain. Denies: Joint swelling. SkinDenies: Diaphoresis, Rash. NeurologicDenies: Focal weakness, Numbness. Past Medical History - AdultStated Complaint LEFT HIP PAIN X3 DAYSAllergiesCoded Allergies:No Known Allergies (01/03/21) Home MedicationsActive ScriptsINSULIN DETEMIR (LEVEMIR FlexTouch (15mL)) 25 UNITS SUBQ DAILY 90 Days #15 ML Prov: 08/30/20PANTOPRAZOLE DR (PROTONIX) 40 MG PO DAILY PANTOPRAZOLE DR (PROTONIX) 40 MG PO DAILY #14 TABS Prov: 01/06/21TICAGRELOR (BRILINTA) 90 MG PO BID TICAGRELOR (BRILINTA) 90 MG PO BID #180 TAB Ref 4 Prov: 06/13/19ASPIRIN 81 MG PO DAILY ASPIRIN 81 MG PO DAILY #90 TAB Ref 4 Prov: 06/13/19 Reported MedicationsMETOPROLOL SUCC XL (TOPROL XL) 25 MG PO BID FUROSEMIDE (LASIX) 40 MG PO BID PRN EDEMA ATORVASTATIN (LIPITOR) 80 MG PO DAILY TAMSULOSIN ER (FLOMAX) 0.4 MG PO BEDTIME POLYETHYLENE GLYCOL 3350 (MIRALAX) 17 GM PO DAILY CHOLECALCIFEROL (VITAMIN D3) (VITAMIN D3) 50,000 UNIT PO Q7D [repatha] Past Medical History:Reports: Diabetes mellitus, Kidney disease/stones (Chronic kidney disease), Prior MN. Additional Medical Historygastroparesis, CVAAdditional Surgical HistoryToe amputation, x2 cardiac stentsAdditional Family HistoryBrother and Father CADAlcohol Use Denies EtOH useDrug Use Denies recreational drugs Physical Exam Vital SignsVital SignsFirst Documented: Result Date Time Pulse Ox 99 03/29 1150 B/P 171/81 03/29 1150 B/P Mean 111 03/29 1150 O2 Delivery Room air 03/29 1150 Temp 98.0 03/29 1150 Pulse 71 03/29 1150 Resp 18 03/29 1150 Last Documented: Result Date Time Pulse Ox 99 03/29 1150 B/P 171/81 03/29 1150 B/P Mean 111 03/29 1150 O2 Delivery Room air 03/29 1150 Temp 98.0 03/29 1150 Pulse 71 03/29 1150 Resp 18 05 1150 Review of Vital Signs Reviewed, Vital signs normal Focused PEGeneral/Const General/Const Awake, Alert, Well appearingMS Head Head Atraumatic, NormocephalicEyes Eyes Atraumatic, PERRLMS Neck Neck Atraumatic, Supple, Full range of motion, No swelling, Non-tenderResp/Chest Respiratory/Chest Atraumatic, Breath sounds NL, Breath sounds = bilat, No respiratory distress, No rales, No rhonchi, No wheezingCardiovascular Cardiovascular Heart rate NL, Regular rhythm, Heart sounds NL, Peripheral circulation NLAbdomen/GI Abdomen/GI Soft, Non-tender, No guarding, No reboundMS Back Back Inspection NL, Non-tender, No CVA tendernessMS Lower Extrem Lower Ext/Pelvis/MS Atraumatic, Inspection NL, Full range of motion, No swelling, Non-tender, No erythema, No deformity, Neurologic intact, Vascular intact, No edema, Gait NL, Pelvis stable, Pelvis non-tender Left Hip Tenderness present (mild). Skin Skin Color NL, Warm, Dry, Intact, Turgor NL, No swellingNeurologic Neurologic Oriented X3, Speech NL, No motor deficits, No sensory deficits Interpretation Diagnostics Lab Results InterpretationResultsRecent Impressions:RADIOLOGY - XR HIP W/PEL UNI 2+V LT 03/29 1215 Report Impression - Status: SIGNED Entered: 03/29/2021 1234 IMPRESSION: There are degenerative changes of the hip joint. Impression By: Jenny Fox M.D.CAT SCAN - CT PELVIS W/O CONTRAST 03/29 1250 Report Impression - Status: SIGNED Entered: 03/29/2021 1324 IMPRESSION: There appears to be a left inguinal hernia, containing omental fatonly. Impression By: Jenny Fox M.D. Imaging StatementRadiographic studies reviewed and considered in the medical decision-making. Re-Evaluation MDM Free Text MDM NotesFree Text MDM NotesA/P: 60yo AAM with PMH as above p/w L hip ain1. XR hip2. Meds3. Re-assessADDENDUMTime: 1250XR hip c/w DJD. Will obtain CT-pelvis to further assessTime: 1345CT-pelvis c/w fat-containing L inguinal hernia. Pt re-assessed; symptoms improved. Results of work-up d/w Pt; voiced understanding. Ok for DC home with PCP follow-up ED CourseMedication(s) OrderedMedication(s) Ordered:Central Nervous System Agents Sig/Jean Carlos Start time Last Medication Dose Route Stop Time Status Admin Tramadol HCl 50 MG X1ED STA 03/29 1158 DC 03/29 PO 03/29 1159 1203 Differential DiagnosisDifferential Diagnosis Avascular nec, fem head, Contusion, Fx acetabulum, Fx femoral head, Osteoarthritis Patient Discharge Departure Vital Signs/ConditionVital SignsFirst Documented: Result Date Time Pulse Ox 99 03/29 1150 B/P 171/81 / 1150 B/P Mean 111 03/29 1150 O2 Delivery Room air 03/29 1150 Temp 98.0 03/29 1150 Pulse 71 05 1150 Resp 18 03/29 1150 Last Documented: Result Date Time Pulse Ox 99 03/29 1150 B/P 171/81 03/29 1150 B/P Mean 111 /15 1150 O2 Delivery Room air 03/29 1150 Temp 98.0 03/29 1150 Pulse 71 03/29 1150 Resp 18 03/29 1150 All vital signs available at the time of this entry have been reviewed. Clinical ImpressionClinical ImpressionPrimary Impression: Degenerative joint disease of left hipSecondary Impressions: Left hip pain, Left inguinal hernia Disposition DecisionDischarge )( Discharged to Home Yes )( Time 1343 )( Date 03/29/21 Discharge/Care PlanCounseled Regarding Diagnosis, Imaging studies, Prescriptions, Need for follow-up, When to return to ED(Auto) PrescriptionsCurrent Visit ScriptstraMADol (ULTRAM) 50 MG PO Q6H PRN PRN ACUTE PAIN traMADol (ULTRAM) 50 MG PO Q6H PRN PRN ACUTE PAIN #15 TABS Patient Instructions ED Hernia (Adult), Osteoarthritis of the Hip ...ReferralsPascual Ralph MDOrthopedics Royer Soto MDGeneral Surgery (discuss hernia repair) Discharge NoteI have spoken with the patient and/or caregivers. I have explained the patient'scondition, diagnoses and treatment plan based on the information available to meat this time. I have answered the patient's and/or caregiver's questions and addressed any concerns. The patient and/or caregivers have as good an understanding of the patient's diagnosis, condition and treatment plan as can beexpected at this point. The vital signs have been stable. The patient's condition is stable and appropriate for discharge from the emergency department. The patient will pursue further outpatient evaluation with the primary care physician or other designated or consulting physician as outlined in the discharge instructions. The patient and/or caregivers are agreeable to this planof care and follow-up instructions have been explained in detail. The patient and/or caregivers have received these instructions in written format and have expressed an understanding of the discharge instructions. The patient and/or caregivers are aware that any significant change in condition or worsening of symptoms should prompt an immediate return to this or the closest emergency department or a call to 911. at [facility] [facility] #: [id number] OF REPORTEDEmergency department [id number]:59:00L.[id number] able for patient uovqPEIGLCHYFIMTYM8479-86-10H50:07:43 [facility] 2021-01-10 06:33:00 [id number]:33:0002 [address] [address] PATIENT NAME: DUSTY FRANCOIS ADMIT DATE: 01/03/21ACCOUNT NO: [id number] ROOM NO: G.602 AGE: 60 REPORT TYPE: DISCHARGE SUMMARY SEX: M ADMITTING PHYSICIAN:Kyung Bedoya MD ATTENDING PHYSICIAN:Kyung Bedoya MD ADMISSION DATE: 01/03/2021ISCHARGE DATE: 01/06/2021 DISCHARGE DIAGNOSES:1. Uncontrolled diabetes mellitus with hypoglycemia.2. COVID positive status.3. Coffee-ground emesis.4. Uugny-wo-ropvhlh kidney disease, stage III.5. Hyperglycemia with HbA1c 14.6. Coronary artery disease with a history of percutaneous coronaryintervention.7. Peripheral vascular disease. BRIEF HOSPITAL COURSE: This is a middle-aged male with multiple cardiovascularcomorbidities, admitted for one episode of coffee-ground emesis. Hemoglobin wasstable. He was positive for COVID, but asymptomatic and evaluated byGastroenterology, treated with Protonix. No plan for scope because of COVIDpositive status. Hemoglobin was stable. Cardiac and diabetic medications wereoptimized. Evaluated by Endocrinology. The patient counseled regardingdiabetic control. Discharged home in a stable condition. DISCHARGE CONDITION: Stable. ACTIVITIES: As tolerated. DIET: Cardiac, diabetic diet. FOLLOWUP: Follow up with primary care physician. DISCHARGE PHYSICAL EXAMINATION: Documented in the chart. Dictated By: Kyung Bedoya MD WT: DS:LELIA/JAVAD/NTSDD: 01/10/2021 06:33:58DT: 01/10/2021 12:18:05Conf#: [id number]/DID#: [id number] Authenticated by Kyung Bedoya MD On 01/17/2021 09:09:07 AM PATIENT NAME: DUSTY FRANCOIS at 0909 PATIENT NAME: DUSTY FRANCOIS [id number]:18:00G.[id number] able for patient efawPRHHQHYNQMXJSV4828-03-59T38:09:51 [facility] 2021-01-06 13:49:00 [id number]:49:00 H [place] [facility] ([facility])Gastroenterology Progress NoteREPORT#:[id number] REPORT STATUS: SignedDATE:01/06/21 TIME: 1349 PATIENT: DUSTY FRANCOIS UNIT #: [id number]#: [id number] [address] AGE: 60 SEX: M ATTEND: Kyung Bedoya MDADM AUTHOR: Eric Holley MD * ALL edits or amendments must be made on the electronic/computer document * SubjectivePatient reports:Yes: bowel movement, passing gas. No: complaints, abdominal pain, black stools,chest pain, constipation, diarrhea, difficulty swallowing, fever, nausea, pain with swallowing, rectal bleeding, vomiting. Objective GeneralVS/I O:Last Documented: Result Date Time Pulse Ox 97 01/06 1100 B/P 148/81 01/06 1100 B/P Mean 109 01/06 1100 Pulse 77 01/06 1100 Resp 17 01/06 1100 O2 Delivery Room air 02/22 0920 Temp 98.9 01/06 920 24 hour I O ending at 0700: 01/06 0700 01/05 1900 Intake Total 240 Output Total 300 950 Balance -300 -710 Intake, Oral 240 Number 1 Bowel Movements Number Voids 1 Output, Urine 300 950 PATIENT WEIGHT: Weight (lb): Weight (oz): Weight (kg): 90.909 Medications:Active Meds + DC'd Last 24 HrsAmlodipine Besylate 10 MG DAILY PO Aspirin 81 MG DAILY PO Metoprolol Succinate 50 MG BID PO Pantoprazole 40 MG DAILY@0600 PO Tamsulosin HCl 0.4 MG BEDTIME PO Metoclopramide HCl 5 MG Q8H IV Insulin Human Lispro 0 AC HS SUBQ Ondansetron HCl 4 MG Q4H PRN PRN IV Promethazine HCl 25 MG Q6H PRN PRN IM Hydralazine HCl 10 MG Q6H PRN PRN IV Insulin Glargine 15 UNIT BEDTIME SUBQ Sodium Chloride 1,000 ML .[id number] IV (DC) Sodium Chloride 10 ML ASDIR PRN IV Physical ExamGeneral appearance: alert, awake, no acute distress, conversational, no respiratory distressHEENT: anicteric, atraumaticNeck: non-tenderCardiovascular: normal heart sounds, normal S1/S2, regular rate rhythm, no murmurRespiratory: aerating well, clear to auscultation, symmetric expansion, no distressAbdomen: non-tender, normal bowel sounds, soft, no distentionRectal: deferredExtremities: moves all, normal range of motionMusculoskeletal: full range of motionNeuro/VACUUM FILTER OPERATOR: alert, oriented X 3Skin: dry, intactPsychiatry: normal affect, normal judgment/insight, normal mood ResultsFindings/Data:Laboratory Tests 01/06/21 0605:[Embedded Image Not Available]Laboratory Tests 01/06 01/05 01/05 0605 2133 1649 Chemistry Sodium (134 - 147 mEq/L) 143 Potassium (3.4 - 5.0 mEq/L) 4.3 Chloride (100 - 108 mEq/L) 114 H Carbon Dioxide (21 - 33 mEq/l) 23 Anion Gap (0 - 20) 11 BUN (7 - 18 mg/dL) 47 H Creatinine (0.6 - 1.3 mg/dL) 2.4 H Glomerular Filtr Rate (90 - 95) 33.8 L Glucose (70 - 110 mg/dL) 74 POC Glucose (70 - 110 MG/DL) 103 61 L Calcium (8.0 - 10.5 mg/dL) 9.2 Phosphorus (2.5 - 4.9 MG/DL) 4.2 Magnesium (1.80 - 2.40 mg/dL) 2.39 Total Creatine Kinase (35 - 232 Units/L) 580 H Laboratory Tests 01/06 0605 Hematology WBC (4.5 - 11.0 x10 3/uL) 6.7 RBC (4.00 - 5.60 x10 6/uL) 3.14 L Hgb (12.5 - 16.9 g/dL) 8.4 L Hct (37.5 - 50.7 %) 27.2 L MCV (81.0 - 99.0 fL) 86.6 MCH (27.0 - 33.0 pg) 26.8 L MCHC (33.0 - 37.0 g/dL) 30.9 L RDW (11.5 - 14.5 %) 14.5 Plt Count (150 - 400 x10 3/uL) 339 MPV (7.0 - 9.0 fL) 9.9 H Neut % (Auto) (56.0 - 77.0 %) 62.4 Lymph % (Auto) (14.0 - 32.0 %) 24.3 Highland % (Auto) (4.8 - 9.0 %) 9.8 H Eos % (Auto) (0.3 - 3.7 %) 2.7 Baso % (Auto) (0.0 - 2.0 %) 0.1 Neut # (Auto) (2.0 - 7.6 x10 3/uL) 4.20 Lymph # (Auto) (1.0 - 3.8 x10 3/uL) 1.64 Highland # (Auto) (0.1 - 0.8 x10 3/uL) 0.66 Eos # (Auto) (0.0 - 0.2 x10 3/uL) 0.18 Baso # (Auto) (0.0 - 0.2 x10 3/uL) 0.01 Abs Immat Gran (auto) (0.00 - 0.03 x10 3/uL) 0.05 H Add Manual Diff NO Immature Gran % (0.0 - 2.0 %) 0.7 Nucleated RBC % (0 - 0 %) 0.0 Nucleated RBCs # (Man) (0.0 - 0.1 x10 3/uL) 0.00 Diagnosis, Assessment PlanProblem List/A P: 1. Nausea and vomiting 2. DM2 (diabetes mellitus, type 2) 3. Acute on chronic renal failure 4. COVID-19 Free Text A P:Per pt, emesis resolved- diabetic gastroparesis vs CKD related RECOMMENDATIONS:reglan 5mg IV Q8 hrs.PPI.Consider EGD based on clinical course - at present monitor clinically. diet as tolerated.. at 2141 RPT #:[id number] OF REPORTPRProgress Zmmn1625-13-01P21:49:00G.[id number] le for patient dhosUAJYAALVMMUWBN4892-19-71N36:41:24 HCACL 2021-01-06 12:42:00 [id number]:42:00 H [facility] Prog. NoteREPORT#:[id number] REPORT STATUS: SignedDATE:01/06/21 TIME: 1242 PATIENT: DUSTY FRANCOIS UNIT #: [id number]#: [id number] [address] AGE: 60 SEX: M ATTEND: Kyung Bedoya [facility] AUTHOR: Kyung Bedoya MD * ALL edits or amendments must be made on the electronic/computer document * SubjectiveChief complaint:FEELING OK NO DISTRESS NO MORE COFFEE GROUND EMESIS Review of SystemsConstitutional:Reports: generalized weakness. Skin:Denies: abrasion, bruising, contusion, diaphoresis, ecchymosis, itching, laceration, rash, swelling, other. Eyes:Denies: redness, discharge, visual loss/blurred, itching, diplopia, eye pain, photophobia, swelling, other. Respiratory:Denies: SORIANO (dyspnea on exertion), hemoptysis, non productive cough, parox nocturnal dyspnea, pleurisy, pleuritic pain, pneumonia, productive cough (sputum), SOB, wheezing, other. Cardiovascular:Denies: chest pain, SORIANO (dyspnea on exertion), edema, orthopnea, palpitations, parox nocturnal dyspnea, other. GI:Reports: nausea. Neuro:Reports: weakness. Objective GeneralVS/I O:Vital Signs Date Temp Pulse Resp B/P B/P Mean Pulse Ox FiO2 01/05-01/06 98.0-99.4 69-85 8-21 112-181/58-104 76-128 93-98 Last Documented: Result Date Time Pulse Ox 97 01/06 1100 B/P 148/81 01/06 1100 B/P Mean 109 01/06 1100 Pulse 77 01/06 1100 Resp 17 01/06 1100 O2 Delivery Room air 01/06 09 Temp 98.9 01/06 0920 24 hour I O ending at 0700: 01/06 0700 01/05 1900 Intake Total 240 Output Total 300 950 Balance -300 -710 Intake, Oral 240 Number 1 Bowel Movements Number Voids 1 Output, Urine 300 950 PATIENT WEIGHT: Weight (lb): Weight (oz): Weight (kg): 90.909 Medications:Active Meds + DC'd Last 24 HrsAmlodipine Besylate 10 MG DAILY PO Aspirin 81 MG DAILY PO Metoprolol Succinate 50 MG BID PO Pantoprazole 40 MG DAILY@0600 PO Tamsulosin HCl 0.4 MG BEDTIME PO Metoclopramide HCl 5 MG Q8H IV Insulin Human Lispro 0 AC HS SUBQ Ondansetron HCl 4 MG Q4H PRN PRN IV Promethazine HCl 25 MG Q6H PRN PRN IM Hydralazine HCl 10 MG Q6H PRN PRN IV Insulin Glargine 15 UNIT BEDTIME SUBQ Sodium Chloride 1,000 ML .[id number] IV (DC) Sodium Chloride 10 ML ASDIR PRN IV Nutrition assessment:The data set between the solid lines has been imported from the dietitian's assessment. Any exceptions have been noted under Provider comments. BMI Calculated: 28.0Nutrition related diagnosis: Nutrition diagnosis details: Nutrition problem: Nutrition etiology: Nutrition signs and symptoms: Nutrition prescription: Dietitian name: Assessment completed: Provider comments on imported dietitian assessment: Physical ExamGeneral appearance: alert, awake, orientedHead/eyes: atraumatic, EOMI, normal conjunctiva/scleraENT: moist mucosal membranesNeck: normal thyroid, supple/no meningismusCardiovascular: normal capillary refill, normal heart sounds, regular rate rhythmRespiratory: rhonchi, shortness of breathAbdomen: non-tender, normal bowel sounds, softNeuro/VACUUM FILTER OPERATOR: alert, oriented X 3 ResultsFindings/Data:Laboratory Tests 01/06/21 06:[Embedded Image Not Available]Laboratory Tests 01/06 01/05 01/05 0605 2133 1649 Chemistry Sodium (134 - 147 mEq/L) 143 Potassium (3.4 - 5.0 mEq/L) 4.3 Chloride (100 - 108 mEq/L) 114 H Carbon Dioxide (21 - 33 mEq/l) 23 Anion Gap (0 - 20) 11 BUN (7 - 18 mg/dL) 47 H Creatinine (0.6 - 1.3 mg/dL) 2.4 H Glomerular Filtr Rate (90 - 95) 33.8 L Glucose (70 - 110 mg/dL) 74 POC Glucose (70 - 110 MG/DL) 103 61 L Calcium (8.0 - 10.5 mg/dL) 9.2 Phosphorus (2.5 - 4.9 MG/DL) 4.2 Magnesium (1.80 - 2.40 mg/dL) 2.39 Total Creatine Kinase (35 - 232 Units/L) 580 H Laboratory Tests 01/06 0605 Hematology WBC (4.5 - 11.0 x10 3/uL) 6.7 RBC (4.00 - 5.60 x10 6/uL) 3.14 L Hgb (12.5 - 16.9 g/dL) 8.4 L Hct (37.5 - 50.7 %) 27.2 L MCV (81.0 - 99.0 fL) 86.6 MCH (27.0 - 33.0 pg) 26.8 L MCHC (33.0 - 37.0 g/dL) 30.9 L RDW (11.5 - 14.5 %) 14.5 Plt Count (150 - 400 x10 3/uL) 339 MPV (7.0 - 9.0 fL) 9.9 H Neut % (Auto) (56.0 - 77.0 %) 62.4 Lymph % (Auto) (14.0 - 32.0 %) 24.3 Highland % (Auto) (4.8 - 9.0 %) 9.8 H Eos % (Auto) (0.3 - 3.7 %) 2.7 Baso % (Auto) (0.0 - 2.0 %) 0.1 Neut # (Auto) (2.0 - 7.6 x10 3/uL) 4.20 Lymph # (Auto) (1.0 - 3.8 x10 3/uL) 1.64 [place]land # (Auto) (0.1 - 0.8 x10 3/uL) 0.66 Eos # (Auto) (0.0 - 0.2 x10 3/uL) 0.18 Baso # (Auto) (0.0 - 0.2 x10 3/uL) 0.01 Abs Immat Gran (auto) (0.00 - 0.03 x10 3/uL) 0.05 H Add Manual Diff NO Immature Gran % (0.0 - 2.0 %) 0.7 Nucleated RBC % (0 - 0 %) 0.0 Nucleated RBCs # (Man) (0.0 - 0.1 x10 3/uL) 0.00 Diagnosis, Assessment Plan Free Text DxA P NotesFree text DxA P notes:1. Coffee-ground emesis, possible peptic ulcer disease. Discussed withgastroenterology. No plan for a scope at this time, clinically stable. We willadvance the diet. Discontinue IV Protonix, switch to p.o. Protonix. Continueto monitor the hemoglobin. Check the iron levels.2. Wqqrt-en-mzbexfm kidney disease, stage III. We will hold onangiotensin-converting enzyme inhibitors. Gently hydrate. nephrology.REVIEWED renal ultrasound and urine electrolytes.3. Diabetes mellitus, unknown control. The patient usually poorly controlled.Last HbA1c was 14. BS FAIR4. Coronary artery disease with percutaneous coronary intervention. We willcontinue home medication, aspirin and metoprolol.5. Peripheral vascular disease, on aspirin. Deep vein thrombosis prophylaxis,sequential compression device. We will advance the diet. If the patient tolerates a diet, kidneyfunction is stable,DC HOME at 1245 RPT #:[id number] OF REPORTPRProgress [id number]:42:00G.[id number] le for patient wctoIZCBTYWHRUVBQN0438-28-15H20:46:02 HCACL 2021-01-06 07:20:00 [id number]:20:00 H [facility] ([facility])Nephrology Progress NoteREPORT#:[id number] REPORT STATUS: SignedDATE:01/06/21 TIME: 07 PATIENT: DUSTY FRANCOIS UNIT #: [id number]#: [id number] [address] AGE: 60 SEX: M ATTEND: Kyung Bedoya [facility] AUTHOR: Gideon Teran MD * ALL edits or amendments must be made on the electronic/computer document * SubjectiveChief Complaint:Nausea, vomiting, COVID-19 positive, elevated creatininePatient reports:No: complaints. Comments:Patient seen and evaluated, HPI no change from initial, feels okay Review of SystemsConstitutional:Denies: chills, fever. Skin:Denies: abrasion. Allergy/Immun:Denies: hives. Eyes:Denies: redness. ENT:Denies: ear drainage. Respiratory:Denies: hemoptysis, SOB. Cardiovascular:Denies: chest pain. Objective GeneralVS/I O:Vital Signs: Date Time Temp Pulse Resp B/P B/P Pulse O2 O2 Flow FiO2 Mean Ox Delivery Rate 01/06 0500 69 9 144/79 106 97 01/06 0400 75 15 160/83 116 96 01/06 0300 72 14 152/82 110 93 01/06 0200 71 8 151/83 108 96 01/06 0100 71 12 126/75 96 97 01/06 0000 69 12 120/71 91 96 01/05 2300 75 11 124/75 93 94 01/05 2200 85 21 181/89 128 93 01/05 2100 75 10 160/88 118 96 01/05 2057 36.7 74 12 165/86 112 96 01/05 2047 78 19 165/86 119 97 01/05 2000 72 9 135/73 99 97 01/05 1900 75 15 148/75 102 96 01/05 1700 73 14 146/77 105 97 01/05 1650 75 13 138/72 99 95 01/05 1600 75 12 163/104 128 96 01/05 1549 37.4 69 12 112/58 76 96 Room air 01/05 1500 69 12 112/58 79 96 01/05 1400 76 15 139/77 102 98 01/05 1300 78 20 137/75 100 96 01/05 1200 78 11 152/76 108 96 01/05 1108 37.5 80 15 172/81 111 94 Room air 01/05 1100 80 15 172/81 118 94 01/05 1000 75 11 148/78 107 95 01/05 0917 80 29 139/79 104 97 01/05 0839 79 125/69 90 96 01/05 0800 72 97 24 hour I O ending at 0700: 01/06 0700 01/05 1900 Intake Total 240 Output Total 300 950 Balance -300 -710 Intake, Oral 240 Number 1 Bowel Movements Number Voids 1 Output, Urine 300 950 PATIENT WEIGHT: Weight (lb): Weight (oz): Weight (kg): 90.909 MedicationsActive Meds + DC'd Last 24 HrsAmlodipine Besylate 10 MG DAILY PO Aspirin 81 MG DAILY PO Metoprolol Succinate 50 MG BID PO Pantoprazole 40 MG DAILY@0600 PO Tamsulosin HCl 0.4 MG BEDTIME PO Metoclopramide HCl 5 MG Q8H IV Metoprolol Succinate 25 MG BID PO (DC) Insulin Human Lispro 0 AC HS SUBQ Ondansetron HCl 4 MG Q4H PRN PRN IV Promethazine HCl 25 MG Q6H PRN PRN IM Hydralazine HCl 10 MG Q6H PRN PRN IV Insulin Glargine 15 UNIT BEDTIME SUBQ Sodium Chloride 1,000 ML .[id number] IV Sodium Chloride 10 ML ASDIR PRN IV Physical ExamGeneral appearance: alert, no acute distressHead/eyes: atraumatic, normocephalicENT: normal noseNeck: non-tender, supple/no meningismusCardiovascular: normal heart sounds, no rubRespiratory: aerating well, no distressAbdomen: non-tender, softGenitourinary: no flank painExtremities: non-tender, no edemaMusculoskeletal: no CVA tenderness, no tendernessNeuro/VACUUM FILTER OPERATOR: alert, normal speechSkin: dry, intact ResultsFindings/Data:Laboratory Tests 01/05 01/05 01/05 01/05 01/05 2133 1649 1140 0835 0450 Chemistry Sodium (134 - 147 mEq/L) 143 Potassium (3.4 - 5.0 mEq/L) 4.8 Chloride (100 - 108 mEq/L) 114 H Carbon Dioxide (21 - 33 mEq/l) 23 Anion Gap (0 - 20) 10 BUN (7 - 18 mg/dL) 52 H Creatinine (0.6 - 1.3 mg/dL) 2.7 H Glomerular Filtr Rate (90 - 95) 29.5 L Glucose (70 - 110 mg/dL) 127 H POC Glucose (70 - 110 MG/DL) 103 61 L 174 H 139 H Calcium (8.0 - 10.5 mg/dL) 8.5 Phosphorus (2.5 - 4.9 MG/DL) 3.6 Magnesium (1.80 - 2.40 mg/dL) 2.48 H 01/04 01/04 01/04 01/04 01/04 1944 1657 1259 1259 1143 Chemistry Sodium (134 - 147 mEq/L) 144 Potassium (3.4 - 5.0 mEq/L) 4.5 Chloride (100 - 108 mEq/L) 114 H Carbon Dioxide (21 - 33 mEq/l) 19 L Anion Gap (0 - 20) 15 BUN (7 - 18 mg/dL) 60 H Creatinine (0.6 - 1.3 mg/dL) 2.9 H Glomerular Filtr Rate (90 - 95) 27.2 L Glucose (70 - 110 mg/dL) 175 H POC Glucose (70 - 110 MG/DL) 163 H 164 H 162 H Calcium (8.0 - 10.5 mg/dL) 8.6 Troponin I (0.000 - 0.045 ng/mL) 0.076 H 01/04 01/04 01/04 01/04 01/03 0749 0527 7 34 2010Chemistry POC Glucose (70 - 110 MG/DL) 260 H 261 H 275 H Troponin I (0.000 - 0.045 ng/mL) 0.053 H LDL Cholesterol Measurd (0 - 100 mg/dL) 114.8 H 01/03 2011 Chemistry Sodium (134 - 147 mEq/L) 139 Potassium (3.4 - 5.0 mEq/L) 4.9 Chloride (100 - 108 mEq/L) 106 Carbon Dioxide (21 - 33 mEq/l) 23 Anion Gap (0 - 20) 15 BUN (7 - 18 mg/dL) 64 H Creatinine (0.6 - 1.3 mg/dL) 3.0 H Glomerular Filtr Rate (90 - 95) 26.1 L Glucose (70 - 110 mg/dL) 371 H Calcium (8.0 - 10.5 mg/dL) 9.3 Iron (35 - 150 mcg/dL) 123 Total Bilirubin (0.0 - 1.0 mg/dL) 0.40 AST (15 - 37 IUnit/L) 54 H ALT (30 - 65 IUnit/L) 25 L Total Alk Phosphatase (20 - 125 IUnit/L) 70 Total Creatine Kinase (35 - 232 Units/L) 1697 *H Troponin I (0.000 - 0.045 ng/mL) 0.094 H Total Protein (6.4 - 8.2 g/dL) 6.0 L Albumin (3.4 - 5.0 g/dL) 3.00 L Laboratory Tests 01/05 01/04 01/04 01/03 0450 0435 34 2010 Hematology WBC (4.5 - 11.0 x10 3/uL) 7.1 6.9 RBC (4.00 - 5.60 x10 6/uL) 3.08 L 3.73 L Hgb (12.5 - 16.9 g/dL) 8.3 L 8.2 L 9.6 L 9.9 L Hct (37.5 - 50.7 %) 26.5 L 26.9 L 30.8 L 31.5 L MCV (81.0 - 99.0 fL) 86.0 84.5 MCH (27.0 - 33.0 pg) 26.9 L 26.5 L MCHC (33.0 - 37.0 g/dL) 31.3 L 31.4 L RDW (11.5 - 14.5 %) 14.6 H 14.4 Plt Count (150 - 400 x10 3/uL) 322 372 MPV (7.0 - 9.0 fL) 10.3 H 10.4 H Neut % (Auto) (56.0 - 77.0 %) 59.8 73.9 Lymph % (Auto) (14.0 - 32.0 %) 29.2 16.7 Highland % (Auto) (4.8 - 9.0 %) 9.4 H 8.0 Eos % (Auto) (0.3 - 3.7 %) 0.6 0.0 L Baso % (Auto) (0.0 - 2.0 %) 0.1 0.1 Neut # (Auto) (2.0 - 7.6 x10 3/uL) 4.22 5.08 Lymph # (Auto) (1.0 - 3.8 x10 3/uL) 2.06 1.15 [place] # (Auto) (0.1 - 0.8 x10 3/uL) 0.66 0.55 Eos # (Auto) (0.0 - 0.2 x10 3/uL) 0.04 0.00 Baso # (Auto) (0.0 - 0.2 x10 3/uL) 0.01 0.01 Abs Immat Gran (auto) (0.00 - 0.03 x10 3/uL) 0.06 H 0.09 H Add Manual Diff NO NO Immature Gran % (0.0 - 2.0 %) 0.9 1.3 Nucleated RBC % (0 - 0 %) 0.0 0.0 Nucleated RBCs # (Man) (0.0 - 0.1 x10 3/uL) 0.00 0.00 Laboratory Tests 01/03 2330 Serology SARS-CoV-2 (PCR) (Negative) POSITIVE H Laboratory Tests 01/03 2011 Toxicology Ethyl Alcohol (<10 mg/dL) < 3.0 Laboratory Tests 01/04 2110 Urines Urine Color (YEL/STRAW) YELLOW Urine Appearance (CLEAR) CLEAR Urine pH (5.0 - 7.0) 5.0 Ur Specific Center Line (1.005 - 1.030) 1.013 Urine Protein (NEGATIVE) 3+ H Urine Glucose (UA) (NEGATIVE) 1+ H Urine Ketones (NEGATIVE) NEGATIVE Urine Blood (NEGATIVE) 2+ H Urine Nitrite (NEGATIVE) NEGATIVE Urine Bilirubin (NEGATIVE) NEGATIVE Urine Urobilinogen (0.2 - 1.0 mg/dL) 0.2 Ur Leukocyte Esterase (NEGATIVE) NEGATIVE Urine RBC (0 - 3 RBC/HPF) 0-3 Urine WBC (0 - 3 WBC/HPF) 0-3 Ur Squamous Epith Cells (NONE SEEN /HPF) NONE SEEN Urine Bacteria (NONE SEEN /HPF) TRACE Hyaline Casts (NONE SEEN /LPF) 6-10 Urine Mucus (NONE SEEN /LPF) TRACE Ur Random Creatinine (mg/dL) 126.3 U Random Total Protein (mg/dL) 319 Recent Impressions:ULTRASOUND - US [employer]RO LTD 01/04 1429 Report Impression - Status: SIGNED Entered: 01/04/2021 1436 IMPRESSION: No hydronephrosis or renal stones. SL: [id number] By: [email or web address] - Gabino Caballero M.D. Laboratory Tests 01/05 01/05 01/05 01/05 2133 1649 1140 0835 Chemistry POC Glucose (70 - 110 MG/DL) 103 61 L 174 H 139 H Diagnosis, Assessment PlanFree Text A P:Patient seen and evaluated, discussed with care team, Images and laboratory reviewedHistory of HTN: metoprolol: Monitor BP closely and adjust medications as neededDM: insulin: Monitor BS closely and adjust medications as neededHLD: Lipitor: We will hold due to rhabdomyolysisCAD status post PCI in May 2019.COVID-19 positiveHistory of peripheral arterial diseaseRhabdomyolysis: Hold Lipitor: IV fluidNausea/vomiting: Supportive careCKD: Baseline creatinine in April 2020 was 2.2, estimated GFR 37 mm/min, stage III chronic kidney diseaseAcute kidney injury: Likely related to nausea /vomiting and possibly low-grade rhabdomyolysis: IV fluid trial check renal and bladder ultrasound. Check urinalysis and urine protein creatinine ratio.01/05/2021 laboratory yesterday showed sodium 144, potassium 4.5, CO2 19, BUN 60 down from 64, creatinine 2.9 down from 3, urinalysis 3+ protein, protein creatinine ratio around 2.5, 2+ blood and negative RBC, blood pressure is elevated will add Norvasc 10 mg p.o. daily and increase metoprolol to 50 mg p.o.twice daily.01/06/2021 laboratory this morning showed hemoglobin 8.4, platelets 339, white blood count 6.7, sodium 143, potassium 4.3, CO2 23, BUN 47, creatinine 2.4 down from 2.7 continues to improve. at 1137 RPT #:[id number] OF REPORTPRProgress [id number]:20:00G.[id number] le for patient [id number]:37:49 [facility] 2021-01-05 16:27:00 [id number]:27:00 [facility] Progress NoteREPORT#:[id number] REPORT STATUS: SignedDATE:01/05/21 TIME: 1627 PATIENT: DUSTY FRANCOIS UNIT #: [id number]#: [id number] [address] [birth year] AGE: 60 SEX: M ATTEND: Kyung Bedoya [facility] AUTHOR: Canelo Quick MD * ALL edits or amendments must be made on the electronic/computer document * SubjectiveChief Complaint:no acute GI sxsPatient reports:Yes: nausea. No: complaints, black stools, vomiting. Nursing reports:Yes: nausea, pain controlled. No: abdominal pain, black stools. Objective GeneralVS/I O:Last Documented: Result Date Time Pulse Ox 96 01/05 1600 B/P 163/104 01/05 1600 B/P Mean 128 01/05 1600 Pulse 75 01/05 1600 Resp 12 01/05 1600 O2 Delivery Room air 01/05 1549 Temp 37.4 01/05 1549 24 hour I O ending at 0700: 01/05 0700 01/04 1900 Intake Total 500 1625.00 Output Total 700 520 Balance -200 1105.00 Intake, IV 1125.00 Intake, Oral 500 500 Number 1 Bowel Movements Output, 20 Emesis Output, Urine 700 500 PATIENT WEIGHT: Weight (lb): Weight (oz): Weight (kg): 90.909 Medications:Active Meds + DC'd Last 24 HrsAmlodipine Besylate 10 MG DAILY PO Aspirin 81 MG DAILY PO Metoprolol Succinate 50 MG BID PO Pantoprazole 40 MG DAILY@0600 PO Tamsulosin HCl 0.4 MG BEDTIME PO Metoclopramide HCl 5 MG Q8H IV Metoprolol Succinate 25 MG BID PO (DC) Insulin Human Lispro 0 AC HS SUBQ Ondansetron HCl 4 MG Q4H PRN PRN IV Promethazine HCl 25 MG Q6H PRN PRN IM Hydralazine HCl 10 MG Q6H PRN PRN IV Insulin Glargine 15 UNIT BEDTIME SUBQ Sodium Chloride 1,000 ML .[id number] IV Sodium Chloride 1,000 ML .Q6H40M IV (DC) Sodium Chloride 0 ASDIR PRN IV (DC) Sodium Chloride 10 ML ASDIR PRN IV Physical ExamGeneral appearance: alert, awake, orientedHEENT: anicteric, atraumaticNeck: non-tenderCardiovascular: normal heart sounds, normal S1/S2, regular rate rhythm, no murmurRespiratory: aerating well, clear to auscultation, symmetric expansion, no distressAbdomen: non-tender, normal bowel sounds, soft, no distentionRectal: deferredExtremities: moves all, normal range of motionMusculoskeletal: full range of motionNeuro/VACUUM FILTER OPERATOR: alert, oriented X 3Skin: dry, intactPsychiatry: normal affect, normal judgment/insight, normal mood ResultsFindings/Data:Laboratory Tests 01/05/21 0450:[Embedded Image Not Available]Laboratory Tests 01/05 01/05 01/04 01/04 1140 0450 1944 1657 Chemistry Sodium (134 - 147 mEq/L) 143 Potassium (3.4 - 5.0 mEq/L) 4.8 Chloride (100 - 108 mEq/L) 114 H Carbon Dioxide (21 - 33 mEq/l) 23 Anion Gap (0 - 20) 10 BUN (7 - 18 mg/dL) 52 H Creatinine (0.6 - 1.3 mg/dL) 2.7 H Glomerular Filtr Rate (90 - 95) 29.5 L Glucose (70 - 110 mg/dL) 127 H POC Glucose (70 - 110 MG/DL) 174 H 163 H 164 H Calcium (8.0 - 10.5 mg/dL) 8.5 Phosphorus (2.5 - 4.9 MG/DL) 3.6 Magnesium (1.80 - 2.40 mg/dL) 2.48 H Laboratory Tests 01/05 0450 Hematology WBC (4.5 - 11.0 x10 3/uL) 7.1 RBC (4.00 - 5.60 x10 6/uL) 3.08 L Hgb (12.5 - 16.9 g/dL) 8.3 L Hct (37.5 - 50.7 %) 26.5 L MCV (81.0 - 99.0 fL) 86.0 MCH (27.0 - 33.0 pg) 26.9 L MCHC (33.0 - 37.0 g/dL) 31.3 L RDW (11.5 - 14.5 %) 14.6 H Plt Count (150 - 400 x10 3/uL) 322 MPV (7.0 - 9.0 fL) 10.3 H Neut % (Auto) (56.0 - 77.0 %) 59.8 Lymph % (Auto) (14.0 - 32.0 %) 29.2 Highland % (Auto) (4.8 - 9.0 %) 9.4 H Eos % (Auto) (0.3 - 3.7 %) 0.6 Baso % (Auto) (0.0 - 2.0 %) 0.1 Neut # (Auto) (2.0 - 7.6 x10 3/uL) 4.22 Lymph # (Auto) (1.0 - 3.8 x10 3/uL) 2.06 [place]land # (Auto) (0.1 - 0.8 x10 3/uL) 0.66 Eos # (Auto) (0.0 - 0.2 x10 3/uL) 0.04 Baso # (Auto) (0.0 - 0.2 x10 3/uL) 0.01 Abs Immat Gran (auto) (0.00 - 0.03 x10 3/uL) 0.06 H Add Manual Diff NO Immature Gran % (0.0 - 2.0 %) 0.9 Nucleated RBC % (0 - 0 %) 0.0 Nucleated RBCs # (Man) (0.0 - 0.1 x10 3/uL) 0.00 Laboratory Tests 01/04 2110 Urines Urine Color (YEL/STRAW) YELLOW Urine Appearance (CLEAR) CLEAR Urine pH (5.0 - 7.0) 5.0 Ur Specific Center Line (1.005 - 1.030) 1.013 Urine Protein (NEGATIVE) 3+ H Urine Glucose (UA) (NEGATIVE) 1+ H Urine Ketones (NEGATIVE) NEGATIVE Urine Blood (NEGATIVE) 2+ H Urine Nitrite (NEGATIVE) NEGATIVE Urine Bilirubin (NEGATIVE) NEGATIVE Urine Urobilinogen (0.2 - 1.0 mg/dL) 0.2 Ur Leukocyte Esterase (NEGATIVE) NEGATIVE Urine RBC (0 - 3 RBC/HPF) 0-3 Urine WBC (0 - 3 WBC/HPF) 0-3 Ur Squamous Epith Cells (NONE SEEN /HPF) NONE SEEN Urine Bacteria (NONE SEEN /HPF) TRACE Hyaline Casts (NONE SEEN /LPF) 6-10 Urine Mucus (NONE SEEN /LPF) TRACE Ur Random Creatinine (mg/dL) 126.3 U Random Total Protein (mg/dL) 319 Diagnosis, Assessment PlanProblem List/A P: 1. Nausea and vomiting 2. DM2 (diabetes mellitus, type 2) 3. Acute on chronic renal failure 4. COVID-19 Free Text A P:Per pt, emesis resolved- diabetic gastroparesis vs CKD relatedWill start patient on reglan 5mg IV Q8 hrs.Change PPI to PO.Consider EGD based on clinical course - at present monitor clinically. Advance diet as tolerated.. Plan discussed with nursing staff . at 4278 RPT #:[id number] OF REPORTPRProgress [id number]:27:00G.[id number] le for patient [id number]:30:08 [facility] 2021-01-05 15:25:00 [id number]:25:00 H [place] [facility])Internal Medicine Prog. NoteREPORT#:[id number] REPORT STATUS: SignedDATE:01/05/21 TIME: 1524 PATIENT: DUSTY FRANCOIS UNIT #: [id number]#: [id number] [address] [birth year] AGE: 60 SEX: M ATTEND: Kyung Bedoya [facility] AUTHOR: Kyung Bedoya MD * ALL edits or amendments must be made on the electronic/computer document * SubjectiveChief complaint:FEELING OKNO DISTRESSNO MORE COFFEE GROUND EMESIS Review of SystemsSkin:Denies: abrasion, bruising, contusion, diaphoresis, ecchymosis, itching, laceration, rash, swelling, other. Allergy/Immun:Denies: allergic reaction, anaphylaxis, hives, itching, rhinorrhea, sneezing, other. Respiratory:Reports: SOB. Cardiovascular:Denies: chest pain, SORIANO (dyspnea on exertion), edema, orthopnea, palpitations, parox nocturnal dyspnea, other. Neuro:Reports: weakness. Objective GeneralVS/I O:Vital Signs Date Temp Pulse Resp B/P B/P Mean Pulse Ox FiO2 01/04-01/05 98.8-100.1 69-83 11-29 125-183/68-93 90-120 94-98 Last Documented: Result Date Time Pulse Ox 94 01/05 1108 B/P 172/81 01/05 1108 B/P Mean 111 01/05 1108 O2 Delivery Room air 01/05 1108 Temp 99.5 01/05 1108 Pulse 80 01/05 1108 Resp 15 01/05 1108 24 hour I O ending at 0700: 01/05 0700 01/04 1900 Intake Total 500 1625.00 Output Total 700 520 Balance -200 1105.00 Intake, IV 1125.00 Intake, Oral 500 500 Number 1 Bowel Movements Output, 20 Emesis Output, Urine 700 500 PATIENT WEIGHT: Weight (lb): Weight (oz): Weight (kg): 90.909 Medications:Active Meds + DC'd Last 24 HrsAmlodipine Besylate 10 MG DAILY PO Aspirin 81 MG DAILY PO Metoprolol Succinate 50 MG BID PO Pantoprazole 40 MG DAILY@0600 PO Tamsulosin HCl 0.4 MG BEDTIME PO Metoclopramide HCl 5 MG Q8H IV Metoprolol Succinate 25 MG BID PO (DC) Insulin Human Lispro 0 AC HS SUBQ Ondansetron HCl 4 MG Q4H PRN PRN IV Promethazine HCl 25 MG Q6H PRN PRN IM Hydralazine HCl 10 MG Q6H PRN PRN IV Insulin Glargine 15 UNIT BEDTIME SUBQ Sodium Chloride 1,000 ML .[id number] IV Sodium Chloride 1,000 ML .Q6H40M IV (DC) Sodium Chloride 0 ASDIR PRN IV (DC) Sodium Chloride 10 ML ASDIR PRN IV Nutrition assessment:The data set between the solid lines has been imported from the dietitian's assessment. Any exceptions have been noted under Provider comments. BMI Calculated: 28.0Nutrition related diagnosis: Nutrition diagnosis details: Nutrition problem: Nutrition etiology: Nutrition signs and symptoms: Nutrition prescription: Dietitian name: Assessment completed: Provider comments on imported dietitian assessment: Physical ExamGeneral appearance: alert, awake, orientedHead/eyes: atraumatic, EOMI, normal conjunctiva/scleraENT: moist mucosal membranesNeck: normal thyroid, supple/no meningismusRespiratory: rhonchi, shortness of breathAbdomen: non-tender, normal bowel sounds, softNeuro/VACUUM FILTER OPERATOR: alert, oriented X 3 ResultsFindings/Data:Laboratory Tests 01/05/21449:[Embedded Image Not Available]Laboratory Tests 01/05 01/05 01/04 01/04 1140 0450 1944 1657 Chemistry Sodium (134 - 147 mEq/L) 143 Potassium (3.4 - 5.0 mEq/L) 4.8 Chloride (100 - 108 mEq/L) 114 H Carbon Dioxide (21 - 33 mEq/l) 23 Anion Gap (0 - 20) 10 BUN (7 - 18 mg/dL) 52 H Creatinine (0.6 - 1.3 mg/dL) 2.7 H Glomerular Filtr Rate (90 - 95) 29.5 L Glucose (70 - 110 mg/dL) 127 H POC Glucose (70 - 110 MG/DL) 174 H 163 H 164 H Calcium (8.0 - 10.5 mg/dL) 8.5 Phosphorus (2.5 - 4.9 MG/DL) 3.6 Magnesium (1.80 - 2.40 mg/dL) 2.48 H Laboratory Tests 01/05 450 Hematology WBC (4.5 - 11.0 x10 3/uL) 7.1 RBC (4.00 - 5.60 x10 6/uL) 3.08 L Hgb (12.5 - 16.9 g/dL) 8.3 L Hct (37.5 - 50.7 %) 26.5 L MCV (81.0 - 99.0 fL) 86.0 MCH (27.0 - 33.0 pg) 26.9 L MCHC (33.0 - 37.0 g/dL) 31.3 L RDW (11.5 - 14.5 %) 14.6 H Plt Count (150 - 400 x10 3/uL) 322 MPV (7.0 - 9.0 fL) 10.3 H Neut % (Auto) (56.0 - 77.0 %) 59.8 Lymph % (Auto) (14.0 - 32.0 %) 29.2 [place]land % (Auto) (4.8 - 9.0 %) 9.4 H Eos % (Auto) (0.3 - 3.7 %) 0.6 Baso % (Auto) (0.0 - 2.0 %) 0.1 Neut # (Auto) (2.0 - 7.6 x10 3/uL) 4.22 Lymph # (Auto) (1.0 - 3.8 x10 3/uL) 2.06 [place] # (Auto) (0.1 - 0.8 x10 3/uL) 0.66 Eos # (Auto) (0.0 - 0.2 x10 3/uL) 0.04 Baso # (Auto) (0.0 - 0.2 x10 3/uL) 0.01 Abs Immat Gran (auto) (0.00 - 0.03 x10 3/uL) 0.06 H Add Manual Diff NO Immature Gran % (0.0 - 2.0 %) 0.9 Nucleated RBC % (0 - 0 %) 0.0 Nucleated RBCs # (Man) (0.0 - 0.1 x10 3/uL) 0.00 Laboratory Tests 01/04 2110 Urines Urine Color (YEL/STRAW) YELLOW Urine Appearance (CLEAR) CLEAR Urine pH (5.0 - 7.0) 5.0 Ur Specific Center Line (1.005 - 1.030) 1.013 Urine Protein (NEGATIVE) 3+ H Urine Glucose (UA) (NEGATIVE) 1+ H Urine Ketones (NEGATIVE) NEGATIVE Urine Blood (NEGATIVE) 2+ H Urine Nitrite (NEGATIVE) NEGATIVE Urine Bilirubin (NEGATIVE) NEGATIVE Urine Urobilinogen (0.2 - 1.0 mg/dL) 0.2 Ur Leukocyte Esterase (NEGATIVE) NEGATIVE Urine RBC (0 - 3 RBC/HPF) 0-3 Urine WBC (0 - 3 WBC/HPF) 0-3 Ur Squamous Epith Cells (NONE SEEN /HPF) NONE SEEN Urine Bacteria (NONE SEEN /HPF) TRACE Hyaline Casts (NONE SEEN /LPF) 6-10 Urine Mucus (NONE SEEN /LPF) TRACE Ur Random Creatinine (mg/dL) 126.3 U Random Total Protein (mg/dL) 319 Diagnosis, Assessment Plan Free Text DxA P NotesFree text DxA P notes:1. Coffee-ground emesis, possible peptic ulcer disease. Discussed withgastroenterology. No plan for a scope at this time, clinically stable. We willadvance the diet. Discontinue IV Protonix, switch to p.o. Protonix. Continueto monitor the hemoglobin. Check the iron levels.2. Vdcbt-wc-nujwqiw kidney disease, stage III. We will hold onangiotensin-converting enzyme inhibitors. Gently hydrate. Consult nephrology.Obtain renal ultrasound and urine electrolytes.3. Diabetes mellitus, unknown control. The patient usually poorly controlled.Last HbA1c was 14. We will recheck the HbA1c and start on sliding scale,long-acting Lantus.4. Coronary artery disease with percutaneous coronary intervention. We willcontinue home medication, aspirin and metoprolol.5. Peripheral vascular disease, on aspirin. Deep vein thrombosis prophylaxis,sequential compression device. We will advance the diet. If the patient tolerates a diet, kidneyfunction is stable, expected to get discharged in 1 to 2 days. at 1530 RPT #:[id number] OF REPORTPRProgress [id number]:25:00G.[id number] le for patient [id number]:31:07 [facility] 2021-01-05 07:26:00 [id number]:26:00 H [facility])Nephrology Progress NoteREPORT#:[id number] REPORT STATUS: SignedDATE:01/05/21 TIME: 725 PATIENT: DUSTY FRANCOIS UNIT #: [id number]#: [id number] [address] [birth year] AGE: 60 SEX: M ATTEND: Kyung Bedoya [facility] AUTHOR: Gideon Teran MD * ALL edits or amendments must be made on the electronic/computer document * SubjectiveChief Complaint:Nausea, vomiting, COVID-19 positive, elevated creatininePatient reports:No: complaints. Comments:Patient seen and evaluated, HPI no change from initial, feels okay Review of SystemsConstitutional:Denies: chills, fever. Skin:Denies: rash. Allergy/Immun:Denies: hives. Eyes:Denies: redness. ENT:Denies: ear drainage. Respiratory:Denies: hemoptysis, SOB. Cardiovascular:Denies: chest pain. Objective GeneralVS/I O:Vital Signs: Date Time Temp Pulse Resp B/P B/P Pulse O2 O2 Flow FiO2 Mean Ox Delivery Rate 01/05 0553 77 18 176/93 120 97 01/05 0505 37.1 01/05 0400 75 15 137/68 91 01/05 0200 76 18 158/77 104 01/05 0014 37.2 01/05 0000 78 16 162/84 110 01/04 2200 80 16 183/78 113 01/04 2147 37.8 01/04 2000 83 14 164/72 102 98 01/04 1700 37.3 69 13 170/80 110 97 Room air 01/04 1500 37.3 01/04 0900 36.9 83 30 181/94 123 94 Room air 24 hour I O ending at 0700: 01/05 0700 01/04 1900 Intake Total 500 1625.00 Output Total 700 520 Balance -200 1105.00 Intake, IV 1125.00 Intake, Oral 500 500 Number 1 Bowel Movements Output, 20 Emesis Output, Urine 700 500 PATIENT WEIGHT: Weight (lb): Weight (oz): Weight (kg): 90.909 MedicationsActive Meds + DC'd Last 24 HrsAspirin 81 MG DAILY PO Pantoprazole 40 MG DAILY@0600 PO (CAN) Pantoprazole 40 MG DAILY@0600 PO Tamsulosin HCl 0.4 MG BEDTIME PO Metoclopramide HCl 5 MG Q8H IV Metoprolol Succinate 25 MG BID PO Insulin Human Lispro 0 AC HS SUBQ Ondansetron HCl 4 MG Q4H PRN PRN IV Promethazine HCl 25 MG Q6H PRN PRN IM Hydralazine HCl 10 MG Q6H PRN PRN IV Insulin Glargine 15 UNIT BEDTIME SUBQ Sodium Chloride 1,000 ML .[id number] IV Sodium Chloride 1,000 ML .Q6H40M IV (DC) Pantoprazole Sodium 80 MG X1ED STA IV (DC) Sodium Chloride 100 MLSodium Chloride 0 ASDIR PRN IV (DC) Sodium Chloride 10 ML ASDIR PRN IV Physical ExamGeneral appearance: alert, no acute distressHead/eyes: atraumatic, normocephalicENT: normal noseNeck: non-tender, supple/no meningismusCardiovascular: normal heart sounds, no rubRespiratory: aerating well, no distressAbdomen: non-tender, softGenitourinary: no flank painExtremities: non-tender, no edemaMusculoskeletal: no CVA tenderness, no tendernessNeuro/VACUUM FILTER OPERATOR: alert, normal speechSkin: dry, intact ResultsFindings/Data:Laboratory Tests 01/05 01/05 01/04 01/04 01/04 1140 0450 1944 1657 1259 Chemistry Sodium (134 - 147 mEq/L) 143 Potassium (3.4 - 5.0 mEq/L) 4.8 Chloride (100 - 108 mEq/L) 114 H Carbon Dioxide (21 - 33 mEq/l) 23 Anion Gap (0 - 20) 10 BUN (7 - 18 mg/dL) 52 H Creatinine (0.6 - 1.3 mg/dL) 2.7 H Glomerular Filtr Rate (90 - 95) 29.5 L Glucose (70 - 110 mg/dL) 127 H POC Glucose (70 - 110 MG/DL) 174 H 163 H 164 H Calcium (8.0 - 10.5 mg/dL) 8.5 Phosphorus (2.5 - 4.9 MG/DL) 3.6 Magnesium (1.80 - 2.40 mg/dL) 2.48 H Troponin I (0.000 - 0.045 ng/mL) 0.076 H 01/04 01/04 01/04 01/04 01/04 1259 1143 0749 0527 0037 Chemistry Sodium (134 - 147 mEq/L) 144 Potassium (3.4 - 5.0 mEq/L) 4.5 Chloride (100 - 108 mEq/L) 114 H Carbon Dioxide (21 - 33 mEq/l) 19 L Anion Gap (0 - 20) 15 BUN (7 - 18 mg/dL) 60 H Creatinine (0.6 - 1.3 mg/dL) 2.9 H Glomerular Filtr Rate (90 - 95) 27.2 L Glucose (70 - 110 mg/dL) 175 H POC Glucose (70 - 110 MG/DL) 162 H 260 H 261 H 275 H Calcium (8.0 - 10.5 mg/dL) 8.6 01/04 Chemistry Sodium (134 - 147 mEq/L) 139 Potassium (3.4 - 5.0 mEq/L) 4.9 Chloride (100 - 108 mEq/L) 106 Carbon Dioxide (21 - 33 mEq/l) 23 Anion Gap (0 - 20) 15 BUN (7 - 18 mg/dL) 64 H Creatinine (0.6 - 1.3 mg/dL) 3.0 H Glomerular Filtr Rate (90 - 95) 26.1 L Glucose (70 - 110 mg/dL) 371 H Calcium (8.0 - 10.5 mg/dL) 9.3 Iron (35 - 150 mcg/dL) 123 Total Bilirubin (0.0 - 1.0 mg/dL) 0.40 AST (15 - 37 IUnit/L) 54 H ALT (30 - 65 IUnit/L) 25 L Total Alk Phosphatase (20 - 125 IUnit/L) 70 Total Creatine Kinase (35 - 232 Units/L) 1697 *H Troponin I (0.000 - 0.045 ng/mL) 0.053 H 0.094 H Total Protein (6.4 - 8.2 g/dL) 6.0 L Albumin (3.4 - 5.0 g/dL) 3.00 L LDL Cholesterol Measurd (0 - 100 mg/dL) 114.8 H Laboratory Tests 01/05 01/04 01/04 01/03 0450 0435 0035 2011Hematology WBC (4.5 - 11.0 x10 3/uL) 7.1 6.9 RBC (4.00 - 5.60 x10 6/uL) 3.08 L 3.73 L Hgb (12.5 - 16.9 g/dL) 8.3 L 8.2 L 9.6 L 9.9 L Hct (37.5 - 50.7 %) 26.5 L 26.9 L 30.8 L 31.5 L MCV (81.0 - 99.0 fL) 86.0 84.5 MCH (27.0 - 33.0 pg) 26.9 L 26.5 L MCHC (33.0 - 37.0 g/dL) 31.3 L 31.4 L RDW (11.5 - 14.5 %) 14.6 H 14.4 Plt Count (150 - 400 x10 3/uL) 322 372 MPV (7.0 - 9.0 fL) 10.3 H 10.4 H Neut % (Auto) (56.0 - 77.0 %) 59.8 73.9 Lymph % (Auto) (14.0 - 32.0 %) 29.2 16.7 [place] % (Auto) (4.8 - 9.0 %) 9.4 H 8.0 Eos % (Auto) (0.3 - 3.7 %) 0.6 0.0 L Baso % (Auto) (0.0 - 2.0 %) 0.1 0.1 Neut # (Auto) (2.0 - 7.6 x10 3/uL) 4.22 5.08 Lymph # (Auto) (1.0 - 3.8 x10 3/uL) 2.06 1.15 [place] # (Auto) (0.1 - 0.8 x10 3/uL) 0.66 0.55 Eos # (Auto) (0.0 - 0.2 x10 3/uL) 0.04 0.00 Baso # (Auto) (0.0 - 0.2 x10 3/uL) 0.01 0.01 Abs Immat Gran (auto) (0.00 - 0.03 0.06 H 0.09 Hx10 3/uL) Add Manual Diff NO NO Immature Gran % (0.0 - 2.0 %) 0.9 1.3 Nucleated RBC % (0 - 0 %) 0.0 0.0 Nucleated RBCs # (Man) (0.0 - 0.1 0.00 0.00x10 3/uL) Laboratory Tests 01/030 Serology SARS-CoV-2 (PCR) (Negative) POSITIVE H Laboratory Tests 01/03 2011 Toxicology Ethyl Alcohol (<10 mg/dL) < 3.0 Laboratory Tests 01/04 2110 Urines Urine Color (YEL/STRAW) YELLOW Urine Appearance (CLEAR) CLEAR Urine pH (5.0 - 7.0) 5.0 Ur Specific Center Line (1.005 - 1.030) 1.013 Urine Protein (NEGATIVE) 3+ H Urine Glucose (UA) (NEGATIVE) 1+ H Urine Ketones (NEGATIVE) NEGATIVE Urine Blood (NEGATIVE) 2+ H Urine Nitrite (NEGATIVE) NEGATIVE Urine Bilirubin (NEGATIVE) NEGATIVE Urine Urobilinogen (0.2 - 1.0 mg/dL) 0.2 Ur Leukocyte Esterase (NEGATIVE) NEGATIVE Urine RBC (0 - 3 RBC/HPF) 0-3 Urine WBC (0 - 3 WBC/HPF) 0-3 Ur Squamous Epith Cells (NONE SEEN /HPF) NONE SEEN Urine Bacteria (NONE SEEN /HPF) TRACE Hyaline Casts (NONE SEEN /LPF) 6-10 Urine Mucus (NONE SEEN /LPF) TRACE Ur Random Creatinine (mg/dL) 126.3 U Random Total Protein (mg/dL) 319 Recent Impressions:RADIOLOGY - XR CHEST 1 V 01/038 Report Impression - Status: SIGNED Entered: 01/03/2021 2141 IMPRESSION: No evidence for acute cardiopulmonary disease. SL: [id number] By: [email or web address] - Mateo Tian M.D.ULTRASOUND - [facility] 01/04 1429 Report Impression - Status: SIGNED Entered: 01/04/2021 1436 IMPRESSION: No hydronephrosis or renal stones. SL: [id number] By: [email or web address] - Gabino Caballero M.D. Laboratory Tests 01/04 01/04 01/04 01/04 01/04 1944 1657 1259 1259 1143 Chemistry Sodium (134 - 147 mEq/L) 144 Potassium (3.4 - 5.0 mEq/L) 4.5 Chloride (100 - 108 mEq/L) 114 H Carbon Dioxide (21 - 33 mEq/l) 19 L Anion Gap (0 - 20) 15 BUN (7 - 18 mg/dL) 60 H Creatinine (0.6 - 1.3 mg/dL) 2.9 H Glomerular Filtr Rate (90 - 95) 27.2 L Glucose (70 - 110 mg/dL) 175 H POC Glucose (70 - 110 MG/DL) 163 H 164 H 162 H Calcium (8.0 - 10.5 mg/dL) 8.6 Troponin I (0.000 - 0.045 ng/mL) 0.076 H 01/04 01/04 01/04 01/04 01/03 0749 0527 0037 0035 2010Chemistry POC Glucose (70 - 110 MG/DL) 260 H 261 H 275 H Troponin I (0.000 - 0.045 ng/mL) 0.053 H LDL Cholesterol Measurd (0 - 100 mg/dL) 114.8 H 01/03 2011 Chemistry Sodium (134 - 147 mEq/L) 139 Potassium (3.4 - 5.0 mEq/L) 4.9 Chloride (100 - 108 mEq/L) 106 Carbon Dioxide (21 - 33 mEq/l) 23 Anion Gap (0 - 20) 15 BUN (7 - 18 mg/dL) 64 H Creatinine (0.6 - 1.3 mg/dL) 3.0 H Glomerular Filtr Rate (90 - 95) 26.1 L Glucose (70 - 110 mg/dL) 371 H Calcium (8.0 - 10.5 mg/dL) 9.3 Iron (35 - 150 mcg/dL) 123 Total Bilirubin (0.0 - 1.0 mg/dL) 0.40 AST (15 - 37 IUnit/L) 54 H ALT (30 - 65 IUnit/L) 25 L Total Alk Phosphatase (20 - 125 IUnit/L) 70 Total Creatine Kinase (35 - 232 Units/L) 1697 *H Troponin I (0.000 - 0.045 ng/mL) 0.094 H Total Protein (6.4 - 8.2 g/dL) 6.0 L Albumin (3.4 - 5.0 g/dL) 3.00 L Laboratory Tests 01/04 01/04 01/03 0435 0035 2010 Hematology WBC (4.5 - 11.0 x10 3/uL) 6.9 RBC (4.00 - 5.60 x10 6/uL) 3.73 L Hgb (12.5 - 16.9 g/dL) 8.2 L 9.6 L 9.9 L Hct (37.5 - 50.7 %) 26.9 L 30.8 L 31.5 L MCV (81.0 - 99.0 fL) 84.5 MCH (27.0 - 33.0 pg) 26.5 L MCHC (33.0 - 37.0 g/dL) 31.4 L RDW (11.5 - 14.5 %) 14.4 Plt Count (150 - 400 x10 3/uL) 372 MPV (7.0 - 9.0 fL) 10.4 H Neut % (Auto) (56.0 - 77.0 %) 73.9 Lymph % (Auto) (14.0 - 32.0 %) 16.7 Highland % (Auto) (4.8 - 9.0 %) 8.0 Eos % (Auto) (0.3 - 3.7 %) 0.0 L Baso % (Auto) (0.0 - 2.0 %) 0.1 Neut # (Auto) (2.0 - 7.6 x10 3/uL) 5.08 Lymph # (Auto) (1.0 - 3.8 x10 3/uL) 1.15 Highland # (Auto) (0.1 - 0.8 x10 3/uL) 0.55 Eos # (Auto) (0.0 - 0.2 x10 3/uL) 0.00 Baso # (Auto) (0.0 - 0.2 x10 3/uL) 0.01 Abs Immat Gran (auto) (0.00 - 0.03 x10 3/uL) 0.09 H Add Manual Diff NO Immature Gran % (0.0 - 2.0 %) 1.3 Nucleated RBC % (0 - 0 %) 0.0 Nucleated RBCs # (Man) (0.0 - 0.1 x10 3/uL) 0.00 Laboratory Tests 01/03 2330 Serology SARS-CoV-2 (PCR) (Negative) POSITIVE H Laboratory Tests 01/03 2011 Toxicology Ethyl Alcohol (<10 mg/dL) < 3.0 Laboratory Tests 01/04 2110 Urines Urine Color (YEL/STRAW) YELLOW Urine Appearance (CLEAR) CLEAR Urine pH (5.0 - 7.0) 5.0 Ur Specific Center Line (1.005 - 1.030) 1.013 Urine Protein (NEGATIVE) 3+ H Urine Glucose (UA) (NEGATIVE) 1+ H Urine Ketones (NEGATIVE) NEGATIVE Urine Blood (NEGATIVE) 2+ H Urine Nitrite (NEGATIVE) NEGATIVE Urine Bilirubin (NEGATIVE) NEGATIVE Urine Urobilinogen (0.2 - 1.0 mg/dL) 0.2 Ur Leukocyte Esterase (NEGATIVE) NEGATIVE Urine RBC (0 - 3 RBC/HPF) 0-3 Urine WBC (0 - 3 WBC/HPF) 0-3 Ur Squamous Epith Cells (NONE SEEN /HPF) NONE SEEN Urine Bacteria (NONE SEEN /HPF) TRACE Hyaline Casts (NONE SEEN /LPF) 6-10 Urine Mucus (NONE SEEN /LPF) TRACE Ur Random Creatinine (mg/dL) 126.3 U Random Total Protein (mg/dL) 319 Recent Impressions:RADIOLOGY - XR CHEST 1 V 01/03 2118 Report Impression - Status: SIGNED Entered: 01/03/2021 2141 IMPRESSION: No evidence for acute cardiopulmonary disease. SL: SG-HImpression By: [email or web address] - Mateo Tian M.D.ULTRASOUND - [facility] 01/04 1429 Report Impression - Status: SIGNED Entered: 01/04/2021 1436 IMPRESSION: No hydronephrosis or renal stones. SL: [id number] By: [email or web address] - Gabino Caballero M.D. Laboratory Tests 01/04 01/04 01/04 01/04 01/04 1944 1657 1259 1259 1143 Chemistry Sodium (134 - 147 mEq/L) 144 Potassium (3.4 - 5.0 mEq/L) 4.5 Chloride (100 - 108 mEq/L) 114 H Carbon Dioxide (21 - 33 mEq/l) 19 L Anion Gap (0 - 20) 15 BUN (7 - 18 mg/dL) 60 H Creatinine (0.6 - 1.3 mg/dL) 2.9 H Glomerular Filtr Rate (90 - 95) 27.2 L Glucose (70 - 110 mg/dL) 175 H POC Glucose (70 - 110 MG/DL) 163 H 164 H 162 H Calcium (8.0 - 10.5 mg/dL) 8.6 Troponin I (0.000 - 0.045 ng/mL) 0.076 H 01/04 0749 Chemistry POC Glucose (70 - 110 MG/DL) 260 H Laboratory Tests 01/04 2110 Urines Urine Color (YEL/STRAW) YELLOW Urine Appearance (CLEAR) CLEAR Urine pH (5.0 - 7.0) 5.0 Ur Specific Center Line (1.005 - 1.030) 1.013 Urine Protein (NEGATIVE) 3+ H Urine Glucose (UA) (NEGATIVE) 1+ H Urine Ketones (NEGATIVE) NEGATIVE Urine Blood (NEGATIVE) 2+ H Urine Nitrite (NEGATIVE) NEGATIVE Urine Bilirubin (NEGATIVE) NEGATIVE Urine Urobilinogen (0.2 - 1.0 mg/dL) 0.2 Ur Leukocyte Esterase (NEGATIVE) NEGATIVE Urine RBC (0 - 3 RBC/HPF) 0-3 Urine WBC (0 - 3 WBC/HPF) 0-3 Ur Squamous Epith Cells (NONE SEEN /HPF) NONE SEEN Urine Bacteria (NONE SEEN /HPF) TRACE Hyaline Casts (NONE SEEN /LPF) 6-10 Urine Mucus (NONE SEEN /LPF) TRACE Ur Random Creatinine (mg/dL) 126.3 U Random Total Protein (mg/dL) 319 Diagnosis, Assessment PlanFree Text A P:Patient seen and evaluated, discussed with care team, Images and laboratory reviewedHistory of HTN: metoprolol: Monitor BP closely and adjust medications as neededDM: insulin: Monitor BS closely and adjust medications as neededHLD: Lipitor: We will hold due to rhabdomyolysisCAD status post PCI in May 2019.COVID-19 positiveHistory of peripheral arterial diseaseRhabdomyolysis: Hold Lipitor: IV fluidNausea/vomiting: Supportive careCKD: Baseline creatinine in April 2020 was 2.2, estimated GFR 37 mm/min, stage III chronic kidney diseaseAcute kidney injury: Likely related to nausea /vomiting and possibly low-grade rhabdomyolysis: IV fluid trial check renal and bladder ultrasound. Check urinalysis and urine protein creatinine ratio.01/05/2021 laboratory yesterday showed sodium 144, potassium 4.5, CO2 19, BUN 60 down from 64, creatinine 2.9 down from 3, urinalysis 3+ protein, protein creatinine ratio around 2.5, 2+ blood and negative RBC, blood pressure is elevated will add Norvasc 10 mg p.o. daily and increase metoprolol to 50 mg p.o.twice daily. at 1457 RPT #:[id number] OF REPORTPRProgress Tpas0189-89-47Z30:26:00G.[id number] le for patient vkavYYBGPRQIJPXKGY1986-22-71E03:58:23 [facility] 2021-01-04 13:38:00 [id number]:38:00 H [place] [facility] ([facility]) Consultation NoteREPORT#:[id number] REPORT STATUS: SignedDATE:01/04/21 TIME: 1338 PATIENT: DUSTY FRANCOIS UNIT #: [id number]#: [id number] ROOM/BED: 602-1DOB: [birth year] AGE: 60 SEX: M ATTEND: Kyung Bedoya [facility] AUTHOR: Canelo Quick MD * ALL edits or amendments must be made on the electronic/computer document * History of Present IllnessReason for consult:Coffee ground emesisChief complaint:coffee ground emesisHPI:Mr. Montano 60-year-old male with history of diabetes mellitus, hypertension, peripheral arterial disease and coronary artery disease status post stent in May 2020 who was recently hospitalized at [facility] for Covid infection and anemia. Patient was started on IV iron. Patient presented to the emergency room with severe nausea and vomiting. Associate symptoms included generalized weakness. Per patient, emesis has resolved. Tolerating small amounts of clear liquids. Denies fever, chills, abdominal pain, melena. History - Adult longitudinalPast medical history:Reports: Diabetes mellitus, Kidney disease/stones (Chronic kidney disease), Prior [place]. Additional medical history:gastroparesis, CVAAdditional surgical history:Toe amputation, x2 cardiac stentsAdditional family history:Brother and Father CADAlcohol use: Denies EtOH useDrug use: Denies recreational drugsSmoking status: Smoking status for patients 13 years old or older: Never SmokerAllergies:Coded Allergies:No Known Allergies (01/03/21) Review of SystemsConstitutional:Denies: chills, fatigue, fever. Skin:Denies: abrasion, bruising, contusion. Allergy/Immun:Denies: anaphylaxis, hives, rhinorrhea. Eyes:Denies: redness, discharge, visual loss/blurred. ENT:Denies: ear drainage, ear ringing, hearing loss. Respiratory:Denies: SORIANO (dyspnea on exertion), hemoptysis, non productive cough. Cardiovascular:Denies: chest pain, edema, orthopnea. GI:Denies: abdominal pain, constipation, diarrhea, hematemesis, melena. :Denies: dysuria, flank pain, frequency. Musculoskeletal:Denies: arthritis, extremity pain, extremity swelling. Heme:Denies: adenopathy, bleeding, bruising. Endocrine:Denies: cold intolerance, heat intolerance, polydipsia. Neuro:Denies: bladder dysfunction, bowel dysfunction, confusion. Psych:Denies: anxiety, auditory hallucination, change in mental status. Objective Physical ExamVS/I O:Last Documented: Result Date Time Pulse Ox 94 01/04 0900 B/P 181/94 01/04 900 B/P Mean 123 01/04 0900 O2 Delivery Room air 01/04 900 Temp 36.9 01/04 900 Pulse 83 01/04 0900 Resp 30 01/04 900 24 hour I O ending at 0700: 01/04 0700 01/03 1900 Intake Total Output Total Balance Output, Emesis Patient 90.909 kg Weight Weight Standing scale Measurement Method PATIENT WEIGHT: Weight (lb): Weight (oz): Weight (kg): 90.909 Medications:Active Meds + DC'd Last 24 HrsAspirin 81 MG DAILY PO Pantoprazole 40 MG DAILY@0600 PO Tamsulosin HCl 0.4 MG BEDTIME PO Metoprolol Succinate 25 MG BID PO Insulin Human Lispro 0 AC HS SUBQ Ondansetron HCl 4 MG Q4H PRN PRN IV Promethazine HCl 25 MG Q6H PRN PRN IM Hydralazine HCl 10 MG Q6H PRN PRN IV Insulin Glargine 15 UNIT BEDTIME SUBQ Sodium Chloride 1,000 ML .H86N55V IV Sodium Chloride 1,000 ML .Q6H40M IV Pantoprazole Sodium 80 MG X1ED STA IV (DC) Sodium Chloride 100 MLHydralazine HCl 10 MG X1ED STA IV (DC) Sodium Chloride 0 ASDIR PRN IV Sodium Chloride 10 ML ASDIR PRN IV Ondansetron HCl 8 MG X1ED STA IV (DC) Pantoprazole Sodium 80 MG X1ED STA IV (DC) Sodium Chloride 1,000 ML X1ED STA IV (DC) General appearance: alert, awake, orientedHEENT: anicteric, atraumaticNeck: non-tenderCardiovascular: normal heart sounds, normal S1/S2, regular rate rhythm, no murmurRespiratory: aerating well, clear to auscultation, symmetric expansion, no distressAbdomen: non-tender, normal bowel sounds, soft, no distentionRectal: deferredExtremities: moves all, normal range of motionMusculoskeletal: full range of motionNeuro/VACUUM FILTER OPERATOR: alert, oriented X 3Skin: dry, intactPsychiatry: normal affect, normal judgment/insight, normal mood ResultsFindings/Data:Laboratory Tests 01/04/21434:[Embedded Image Not Available] 01/04/2134:[Embedded Image Not Available] 01/03/212010:[Embedded Image Not Available]Laboratory Tests 01/04 01/04 01/04 01/04 01/04 1143 0749 0527 36 34 Chemistry POC Glucose (70 - 110 MG/DL) 162 H 260 H 261 H 275 H Troponin I (0.000 - 0.045 ng/mL) 0.053 H 01/03 Chemistry Sodium (134 - 147 mEq/L) 139 Potassium (3.4 - 5.0 mEq/L) 4.9 Chloride (100 - 108 mEq/L) 106 Carbon Dioxide (21 - 33 mEq/l) 23 Anion Gap (0 - 20) 15 BUN (7 - 18 mg/dL) 64 H Creatinine (0.6 - 1.3 mg/dL) 3.0 H Glomerular Filtr Rate (90 - 95) 26.1 L Glucose (70 - 110 mg/dL) 371 H Calcium (8.0 - 10.5 mg/dL) 9.3 Iron (35 - 150 mcg/dL) 123 Total Bilirubin (0.0 - 1.0 mg/dL) 0.40 AST (15 - 37 IUnit/L) 54 H ALT (30 - 65 IUnit/L) 25 L Total Alk Phosphatase (20 - 125 IUnit/L) 70 Total Creatine Kinase (35 - 232 Units/L) 1697 *H Troponin I (0.000 - 0.045 ng/mL) 0.094 H Total Protein (6.4 - 8.2 g/dL) 6.0 L Albumin (3.4 - 5.0 g/dL) 3.00 L LDL Cholesterol Measurd (0 - 100 mg/dL) 114.8 H Laboratory Tests 01/04 Hematology WBC (4.5 - 11.0 x10 3/uL) 6.9 RBC (4.00 - 5.60 x10 6/uL) 3.73 L Hgb (12.5 - 16.9 g/dL) 8.2 L 9.6 L 9.9 L Hct (37.5 - 50.7 %) 26.9 L 30.8 L 31.5 L MCV (81.0 - 99.0 fL) 84.5 MCH (27.0 - 33.0 pg) 26.5 L MCHC (33.0 - 37.0 g/dL) 31.4 L RDW (11.5 - 14.5 %) 14.4 Plt Count (150 - 400 x10 3/uL) 372 MPV (7.0 - 9.0 fL) 10.4 H Neut % (Auto) (56.0 - 77.0 %) 73.9 Lymph % (Auto) (14.0 - 32.0 %) 16.7 Highland % (Auto) (4.8 - 9.0 %) 8.0 Eos % (Auto) (0.3 - 3.7 %) 0.0 L Baso % (Auto) (0.0 - 2.0 %) 0.1 Neut # (Auto) (2.0 - 7.6 x10 3/uL) 5.08 Lymph # (Auto) (1.0 - 3.8 x10 3/uL) 1.15 Highland # (Auto) (0.1 - 0.8 x10 3/uL) 0.55 Eos # (Auto) (0.0 - 0.2 x10 3/uL) 0.00 Baso # (Auto) (0.0 - 0.2 x10 3/uL) 0.01 Abs Immat Gran (auto) (0.00 - 0.03 x10 3/uL) 0.09 H Add Manual Diff NO Immature Gran % (0.0 - 2.0 %) 1.3 Nucleated RBC % (0 - 0 %) 0.0 Nucleated RBCs # (Man) (0.0 - 0.1 x10 3/uL) 0.00 Laboratory Tests 01/03 2330 Serology SARS-CoV-2 (PCR) (Negative) POSITIVE H Laboratory Tests 01/03 2011 Toxicology Ethyl Alcohol (<10 mg/dL) < 3.0 Radiology data:Recent Impressions:RADIOLOGY - XR CHEST 1 V 01/03 2118 Report Impression - Status: SIGNED Entered: 01/03/20212140 IMPRESSION: No evidence for acute cardiopulmonary disease. SL: SG-HImpression By: [email or web address] - Mateo Tian M.D. Diagnosis, Assessment PlanProblem List/A P: 1. Nausea and vomiting 2. DM2 (diabetes mellitus, type 2) 3. Acute on chronic renal failure 4. COVID-19 Plan discussed with: admitting physician, nurse Free Text DxA P NotesFree Text DxA P Notes:Per pt, emesis resolved- diabetic gastroparesis vs CKD relatedWill start patient on reglan 5mg IV Q8 hrs.Change PPI to PO.Consider EGD based on clinical course. Advance diet as tolerated.Nephrology consult pending. Plan discussed with nursing staff and attending physician. at 1349 RPT #:[id number] OF REPORTFKQivtbawsgmpk9251-54-27E11:38:00G.YXMQ131 [id number] for patient xfmkFIHMUSDZUBSIDT3139-02-41N36:50:18 [facility] 2021-01-04 12:46:00 [id number]:46:0002 [address] [address] PATIENT NAME: DUSTY FRANCOIS ADMIT DATE: 01/03/21ACCOUNT NO: [id number] ROOM NO: G.602 AGE: 60 REPORT TYPE: HISTORY AND PHYSICAL SEX: M ADMITTING PHYSICIAN:Kyung Bedoya MD ATTENDING PHYSICIAN:Kyung Bedoya MD ADMISSION DATE: 01/03/2021 CHIEF COMPLAINT: Nausea, vomiting, questionable coffee-ground emesis once. HISTORY OF PRESENTING ILLNESS: This is a 60-year-old male with a history ofuncontrolled diabetes, hypertension, peripheral artery disease, coronary arterydisease with PCI, came to the Emergency Room with nausea, vomiting, a fewepisodes of questionable coffee-ground emesis. Of note, [facility], received IV iron. Hedescribed he was nauseous for the past few weeks. Yesterday, his nausea gotworse. He vomited a few times, after that noticed some black-colored emesis. He denies any hematochezia, bleeding per rectum. No abdominal pain. No chestpain, palpitation, or shortness of breath. No dysuria, hematuria, or extremityedema. The patient was evaluated in the Emergency Room and admitted for further workupof hematemesis. His hemoglobin had been stable. His creatinine was 3. Hisbaseline creatinine 2.1. PAST MEDICAL HISTORY: Uncontrolled diabetes, chronic kidney disease stage III,gastroparesis, history of CVA, myocardial infarction, coronary artery diseasewith PCI. PAST SURGICAL HISTORY: Toe amputation and cardiac stent. HOME MEDICATIONS: Reviewed. ALLERGIES: NO KNOWN ALLERGIES. FAMILY HISTORY: Positive for premature heart disease in brother. SOCIAL HISTORY: Currently, denies smoking, alcohol, or illicit drug use. SYSTEM REVIEW: A 14-point comprehensive systems review was done, apart fromsymptoms mentioned in the history of presenting illness, otherwise negative. PHYSICAL EXAMINATION:VITAL SIGNS: Temperature 98.4, pulse 83, blood pressure 154/94.GENERAL: This is a middle-aged male, in no acute distress. Afebrile.HEENT: Pupils equally reactive.NECK: Supple.CARDIOVASCULAR: S1 and S2 regular.RESPIRATORY: Bilaterally good air entry. PATIENT NAME: DUSTY FRANCOIS ABDOMEN: Soft and nontender.EXTREMITIES: No edema.CENTRAL NERVOUS SYSTEM: Alert, awake, and oriented to time, place, and person. LABORATORY DATA AND DIAGNOSTIC STUDIES: WBC 6.9, hemoglobin 9.9, featbplgme06.5, and platelets 372. Blood sugar 162, sodium 139, potassium 4.9, lowlwxcg109, BUN 64, and creatinine 3.1. ASSESSMENT:1. Coffee-ground emesis, possible peptic ulcer disease. Discussed withgastroenterology. No plan for a scope at this time, clinically stable. We willadvance the diet. Discontinue IV Protonix, switch to p.o. Protonix. Continueto monitor the hemoglobin. Check the iron levels.2. Vvnth-of-iutfbwx kidney disease, stage III. We will hold onangiotensin-converting enzyme inhibitors. Gently hydrate. Consult nephrology. Obtain renal ultrasound and urine electrolytes.3. Diabetes mellitus, unknown control. The patient usually poorly controlled. Last HbA1c was 14. We will recheck the HbA1c and start on sliding scale,long-acting Lantus.4. Coronary artery disease with percutaneous coronary intervention. We willcontinue home medication, aspirin and metoprolol.5. Peripheral vascular disease, on aspirin. Deep vein thrombosis prophylaxis,sequential compression device. PLAN: We will advance the diet. If the patient tolerates a diet, kidneyfunction is stable, expected to get discharged in 1 to 2 days. Dictated By: Kyung Bedoya MD WT: HP:GTHOM/JAVAD/NTSDD: 01/04/2021 12:46:01DT: 01/04/2021 13:05:30Conf#: [id number]/DID#: [id number] by Kyung Bedoya MD On 01/08/2021 09:42:48 PM at 2143 PATIENT NAME: DUSTY FRANCOIS and physical hfafouefzxh0421-12-49S31:05:00G.[id number] vailable for patient aqamIDKODWVLDSVYZZ0734-96-79S81:43:29 [facility] 2021-01-04 12:35:00 [id number]:35:00 H [facility])Clinical NoteREPORT#:[id number] REPORT STATUS: SignedDATE:01/04/21 TIME: 1235 PATIENT: DUSTY FRANCOIS UNIT #: [id number]#: [id number] [address] [birth year] AGE: 60 SEX: M ATTEND: Kyung Bedoya MDADM AUTHOR: Kyung Bedoya MD * ALL edits or amendments must be made on the electronic/computer document * Clinical NoteNote:SEEN AND EXAMINED at 1236 RPT #:[id number] OF REPORTCLClinical [id number]:35:00G.[id number] for patient [id number]:36:46 [facility] 2021-01-04 09:59:00 [id number]:59:00 H [facility] ([facility])Nephrology Consultation NoteREPORT#:[id number] REPORT STATUS: SignedDATE:01/04/21 TIME: 958 PATIENT: DUSTY FRANCOIS UNIT #: [id number]#: [id number] ROOM[facility]BED: [facility]DOB: [birth year] AGE: 60 SEX: M ATTEND: Kyung Bedoya [facility] AUTHOR: Gideon Teran MD * ALL edits or amendments must be made on the electronic/computer document * History of Present IllnessRequesting clinician: Kevin Bedoya for consult:Elevated creatinineChief complaint:Nausea/vomiting/COVID-19 positiveHPI:Patient seen and evaluated, discussed with care team, 60-year-old male with history of diabetes mellitus, hypertension, peripheral arterial disease and coronary artery disease status post stent in May 2020 who was recently hospitalized at [facility] for Covid infection and anemia. Patient was started on IV iron. Patient presented to the emergency room yesterday with severe nausea and vomiting. Associate symptoms included generalized weakness. Patient denies abdominal pain or other complaints. Laboratory this morning showed hemoglobin 8.2, platelet 372, laboratory from yesterday showed sodium 139, potassium 4.9, CO2 23, BUN 64, creatinine 3, blood sugar 371, CK 1697. Renal consult was requested for evaluation and management of his elevated BUN and creatinine. History - Adult longitudinalPast medical history:Reports: Diabetes mellitus, Kidney disease/stones (Chronic kidney disease), Prior [place]. Additional medical history:gastroparesis, CVAAdditional surgical history:Toe amputation, x2 cardiac stentsAdditional family history:Brother and Father CADAlcohol use: Denies EtOH useDrug use: Denies recreational drugsSmoking status: Smoking status for patients 13 years old or older: Never SmokerMedications:Home Medications:Medication Dose/Rte/Freq Days Qty Entered Last Max Daily Dose Reviewed METOPROLOL SUCC XL 25 MG PO BID 05/01/20 01/04/21 (TOPROL XL) 1354 0019Strength: 25 MGTAB.SR.24H FUROSEMIDE (LASIX) 40 MG PO 07/16/19 01/04/21rength: 40 MG TAB BID PRN EDEMA 0151 0017 ATORVASTATIN (LIPITOR) 80 MG PO DAILY 09/15/19 01/04/21rength: 80 MG TAB 0831 0018 TAMSULOSIN ER (FLOMAX) 0.4 MG PO BEDTIME 09/15/19 01/04/21rength: 0.4 MG 0832 0017CAP.SR.24H POLYETHYLENE GLYCOL 17 GM PO DAILY 09/15/19 01/04/21 3350 0840 0018 (MIRALAX)Strength: 17 GM POWDER CHOLECALCIFEROL 50,000 UNIT PO Q7D 07/16/19 01/04/21 (VITAMIN D3) 0149 0019 (VITAMIN D3)Strength: 50,000 UNIT CAP[repatha] 10/03/19Strength: 1931 INSULIN DETEMIR 25 UNITS SUBQ DAILY 90 15 08/30/20 01/04/21 (LEVEMIR FlexTouch 1458 0017(15mL))Strength: 100 UNIT/ML (3ML) PEN.INJCTR TICAGRELOR (BRILINTA) 90 MG PO BID 180 06/13/19 01/04/21rength: 90 MG TAB 1259 0017 ASPIRIN 81 MG PO DAILY 90 06/13/19 01/04/21rength: 81 MG TAB.CHEW 1300 0017 Current Hospital Medications:Antihistamine Drugs Sig/Jean Carlos Start time Last Medication Dose Route Stop Time Status Admin Promethazine HCl 25 MG Q6H PRN PRN 01/04 0045 AC (PHENERGAN) IM 02/03 0044 Cardiovascular Drugs Sig/Jean Carlos Start time Last Medication Dose Route Stop Time Status Admin Hydralazine HCl 10 MG Q6H PRN PRN 01/03 2330 AC 01/04 (APRESOLINE) IV 02/02 2329 0854 Hydralazine HCl 10 MG X1ED STA 01/034 DC 01/03 (APRESOLINE) IV 01/03 2235 2244 Electrolytic, Caloric, And Alex Sig/Jean Carlos Start time Last Medication Dose Route Stop Time Status Admin Sodium Chloride 1,000 ML .[id number] 01/03 2330 AC 01/04 (0.45% Sodium IV 02/02 2329 0100 Chloride) Sodium Chloride 1,000 ML .Q6H40M 01/03 2245 AC 01/04 (SODIUM CHLORIDE IV 01/04 2141 0505 0.9%) Sodium Chloride 0 ASDIR PRN 01/03 1930 AC (SODIUM CHLORIDE) IV 01/04 1817 Sodium Chloride 10 ML ASDIR PRN 01/03 1930 AC (SODIUM CHLORIDE) IV 02/02 1929 Sodium Chloride 1,000 ML X1ED STA 01/03 191 DC 01/03 (SODIUM CHLORIDE IV 01/03 0.9%) Gastrointestinal Drugs Sig/Jean Carlos Start time Last Medication Dose Route Stop Time Status Admin Ondansetron HCl 4 MG Q4H PRN PRN 01/04 0045 AC 01/04 (ZOFRAN) IV 02/03 0044 0854 Pantoprazole Sodium 80 MG X1ED STA 01/03 2242 DC 01/04 (PROTONIX) IV 01/04 0841 0051 Sodium Chloride 100 ML (SODIUM CHLORIDE 0.9%) Ondansetron HCl 8 MG X1ED STA 01/03 1920 DC 01/03 (ZOFRAN) IV 01/03 Pantoprazole Sodium 80 MG X1ED STA 01/03 1920 DC 01/03 (PROTONIX) IV 01/03 Hormones And Synthetic Substit Sig/Jean Carlos Start time Last Medication Dose Route Stop Time Status Admin Insulin Human Lispro 0 AC HS 01/04 0730 AC 01/04 (HUMALOG) SUBQ 02/03 0729 0833 Insulin Glargine 15 UNIT BEDTIME 01/03 233 (Lantus) SUBQ 02/02 2329 Allergies:Coded Allergies:No Known Allergies (01/03/21) Review of SystemsConstitutional:Denies: chills, fever. Skin:Denies: bruising, rash. Allergy/Immun:Denies: hives, itching. Eyes:Denies: redness, discharge. ENT:Denies: ear drainage, ear ringing. Respiratory:Denies: hemoptysis, SOB. Cardiovascular:Denies: chest pain. GI:Reports: nausea, vomiting. Denies: abdominal pain. :Denies: dysuria, flank pain. Musculoskeletal:Denies: arthritis, extremity pain. Heme:Denies: bleeding. Endocrine:Denies: cold intolerance. Neuro:Denies: change in LOC, seizure. Psych:Denies: agitation. Objective GeneralVS/I O:Vital Signs: Date Time Temp Pulse Resp B/P B/P Pulse O2 O2 Flow FiO2 Mean Ox Delivery Rate 01/04 0900 36.9 83 30 181/94 123 94 Room air 01/04 0400 36.9 01/04 0044 36.9 01/03 1950 37.2 91 19 154/94 114 98 Room air 24 hour I O ending at 0700: 01/04 0700 01/03 1900 Intake Total Output Total Balance Output, Emesis Patient 90.909 kg Weight Weight Standing scale Measurement Method PATIENT WEIGHT: Weight (lb): Weight (oz): Weight (kg): 90.909 Medications:Active Meds + DC'd Last 24 HrsInsulin Human Lispro 0 AC HS SUBQ Ondansetron HCl 4 MG Q4H PRN PRN IV Promethazine HCl 25 MG Q6H PRN PRN IM Hydralazine HCl 10 MG Q6H PRN PRN IV Insulin Glargine 15 UNIT BEDTIME SUBQ Sodium Chloride 1,000 ML .[id number] IV Sodium Chloride 1,000 ML .Q6H40M IV Pantoprazole Sodium 80 MG X1ED STA IV (DC) Sodium Chloride 100 MLHydralazine HCl 10 MG X1ED STA IV (DC) Sodium Chloride 0 ASDIR PRN IV Sodium Chloride 10 ML ASDIR PRN IV Ondansetron HCl 8 MG X1ED STA IV (DC) Pantoprazole Sodium 80 MG X1ED STA IV (DC) Sodium Chloride 1,000 ML X1ED STA IV (DC) Physical ExamGeneral appearance: alert, no acute distressHead/eyes: atraumatic, normocephalicENT: normal noseNeck: non-tender, supple/no meningismusCardiovascular: normal heart sounds, no rubRespiratory: aerating well, no distressAbdomen: non-tender, softGenitourinary: no flank painExtremities: non-tender, no edemaMusculoskeletal: no CVA tenderness, no tendernessNeuro/VACUUM FILTER OPERATOR: alert, normal speechSkin: dry, intact ResultsFindings/Data:Laboratory Tests 01/04 01/04 01/04 01/04 01/04 1143 [id number] 0527 0037 0035 Chemistry POC Glucose (70 - 110 MG/DL) 162 H 260 H 261 H 275 H Troponin I (0.000 - 0.045 ng/mL) 0.053 H 01/03 Chemistry Sodium (134 - 147 mEq/L) 139 Potassium (3.4 - 5.0 mEq/L) 4.9 Chloride (100 - 108 mEq/L) 106 Carbon Dioxide (21 - 33 mEq/l) 23 Anion Gap (0 - 20) 15 BUN (7 - 18 mg/dL) 64 H Creatinine (0.6 - 1.3 mg/dL) 3.0 H Glomerular Filtr Rate (90 - 95) 26.1 L Glucose (70 - 110 mg/dL) 371 H Calcium (8.0 - 10.5 mg/dL) 9.3 Iron (35 - 150 mcg/dL) 123 Total Bilirubin (0.0 - 1.0 mg/dL) 0.40 AST (15 - 37 IUnit/L) 54 H ALT (30 - 65 IUnit/L) 25 L Total Alk Phosphatase (20 - 125 IUnit/L) 70 Total Creatine Kinase (35 - 232 Units/L) 1697 *H Troponin I (0.000 - 0.045 ng/mL) 0.094 H Total Protein (6.4 - 8.2 g/dL) 6.0 L Albumin (3.4 - 5.0 g/dL) 3.00 L LDL Cholesterol Measurd (0 - 100 mg/dL) 114.8 H Laboratory Tests 01/04 01/04 01/03 0435 0035 2010 Hematology WBC (4.5 - 11.0 x10 3/uL) 6.9 RBC (4.00 - 5.60 x10 6/uL) 3.73 L Hgb (12.5 - 16.9 g/dL) 8.2 L 9.6 L 9.9 L Hct (37.5 - 50.7 %) 26.9 L 30.8 L 31.5 L MCV (81.0 - 99.0 fL) 84.5 MCH (27.0 - 33.0 pg) 26.5 L MCHC (33.0 - 37.0 g/dL) 31.4 L RDW (11.5 - 14.5 %) 14.4 Plt Count (150 - 400 x10 3/uL) 372 MPV (7.0 - 9.0 fL) 10.4 H Neut % (Auto) (56.0 - 77.0 %) 73.9 Lymph % (Auto) (14.0 - 32.0 %) 16.7 Highland % (Auto) (4.8 - 9.0 %) 8.0 Eos % (Auto) (0.3 - 3.7 %) 0.0 L Baso % (Auto) (0.0 - 2.0 %) 0.1 Neut # (Auto) (2.0 - 7.6 x10 3/uL) 5.08 Lymph # (Auto) (1.0 - 3.8 x10 3/uL) 1.15 Highland # (Auto) (0.1 - 0.8 x10 3/uL) 0.55 Eos # (Auto) (0.0 - 0.2 x10 3/uL) 0.00 Baso # (Auto) (0.0 - 0.2 x10 3/uL) 0.01 Abs Immat Gran (auto) (0.00 - 0.03 x10 3/uL) 0.09 H Add Manual Diff NO Immature Gran % (0.0 - 2.0 %) 1.3 Nucleated RBC % (0 - 0 %) 0.0 Nucleated RBCs # (Man) (0.0 - 0.1 x10 3/uL) 0.00 Laboratory Tests 01/03 2330 Serology SARS-CoV-2 (PCR) (Negative) POSITIVE H Laboratory Tests 01/03 2011 Toxicology Ethyl Alcohol (<10 mg/dL) < 3.0 Recent Impressions:RADIOLOGY - XR CHEST 1 V 01/03 2118 Report Impression - Status: SIGNED Entered: 01/03/20211 IMPRESSION: No evidence for acute cardiopulmonary disease. SL: SG-HImpression By: Lenny - Mateo Tian M.D. Laboratory Tests 01/04 01/04 01/04 01/04 0749 0527 0037 0035 Chemistry POC Glucose (70 - 110 MG/DL) 260 H 261 H 275 H Troponin I (0.000 - 0.045 ng/mL) 0.053 H 01/03 Chemistry Sodium (134 - 147 mEq/L) 139 Potassium (3.4 - 5.0 mEq/L) 4.9 Chloride (100 - 108 mEq/L) 106 Carbon Dioxide (21 - 33 mEq/l) 23 Anion Gap (0 - 20) 15 BUN (7 - 18 mg/dL) 64 H Creatinine (0.6 - 1.3 mg/dL) 3.0 H Glomerular Filtr Rate (90 - 95) 26.1 L Glucose (70 - 110 mg/dL) 371 H Calcium (8.0 - 10.5 mg/dL) 9.3 Iron (35 - 150 mcg/dL) 123 Total Bilirubin (0.0 - 1.0 mg/dL) 0.40 AST (15 - 37 IUnit/L) 54 H ALT (30 - 65 IUnit/L) 25 L Total Alk Phosphatase (20 - 125 IUnit/L) 70 Total Creatine Kinase (35 - 232 Units/L) 1697 *H Troponin I (0.000 - 0.045 ng/mL) 0.094 H Total Protein (6.4 - 8.2 g/dL) 6.0 L Albumin (3.4 - 5.0 g/dL) 3.00 L LDL Cholesterol Measurd (0 - 100 mg/dL) 114.8 H Laboratory Tests 01/04 01/04 01/03 0435 0035 2010 Hematology WBC (4.5 - 11.0 x10 3/uL) 6.9 RBC (4.00 - 5.60 x10 6/uL) 3.73 L Hgb (12.5 - 16.9 g/dL) 8.2 L 9.6 L 9.9 L Hct (37.5 - 50.7 %) 26.9 L 30.8 L 31.5 L MCV (81.0 - 99.0 fL) 84.5 MCH (27.0 - 33.0 pg) 26.5 L MCHC (33.0 - 37.0 g/dL) 31.4 L RDW (11.5 - 14.5 %) 14.4 Plt Count (150 - 400 x10 3/uL) 372 MPV (7.0 - 9.0 fL) 10.4 H Neut % (Auto) (56.0 - 77.0 %) 73.9 Lymph % (Auto) (14.0 - 32.0 %) 16.7 Highland % (Auto) (4.8 - 9.0 %) 8.0 Eos % (Auto) (0.3 - 3.7 %) 0.0 L Baso % (Auto) (0.0 - 2.0 %) 0.1 Neut # (Auto) (2.0 - 7.6 x10 3/uL) 5.08 Lymph # (Auto) (1.0 - 3.8 x10 3/uL) 1.15 Highland # (Auto) (0.1 - 0.8 x10 3/uL) 0.55 Eos # (Auto) (0.0 - 0.2 x10 3/uL) 0.00 Baso # (Auto) (0.0 - 0.2 x10 3/uL) 0.01 Abs Immat Gran (auto) (0.00 - 0.03 x10 3/uL) 0.09 H Add Manual Diff NO Immature Gran % (0.0 - 2.0 %) 1.3 Nucleated RBC % (0 - 0 %) 0.0 Nucleated RBCs # (Man) (0.0 - 0.1 x10 3/uL) 0.00 Laboratory Tests 01/03 2330 Serology SARS-CoV-2 (PCR) (Negative) POSITIVE H Laboratory Tests 01/03 2011 Toxicology Ethyl Alcohol (<10 mg/dL) < 3.0 Recent Impressions:RADIOLOGY - XR CHEST 1 V 01/03 2118 Report Impression - Status: SIGNED Entered: 01/03/20212140 IMPRESSION: No evidence for acute cardiopulmonary disease. SL: SG-HImpression By: [id number] - Mateo Tian M.D. Laboratory Tests 01/04 01/04 01/04 01/04 01/03 0749 0527 0037 0035 2011Chemistry POC Glucose (70 - 110 MG/DL) 260 H 261 H 275 H Troponin I (0.000 - 0.045 ng/mL) 0.053 H LDL Cholesterol Measurd (0 - 100 mg/dL) 114.8 H 01/03 2011 Chemistry Sodium (134 - 147 mEq/L) 139 Potassium (3.4 - 5.0 mEq/L) 4.9 Chloride (100 - 108 mEq/L) 106 Carbon Dioxide (21 - 33 mEq/l) 23 Anion Gap (0 - 20) 15 BUN (7 - 18 mg/dL) 64 H Creatinine (0.6 - 1.3 mg/dL) 3.0 H Glomerular Filtr Rate (90 - 95) 26.1 L Glucose (70 - 110 mg/dL) 371 H Calcium (8.0 - 10.5 mg/dL) 9.3 Iron (35 - 150 mcg/dL) 123 Total Bilirubin (0.0 - 1.0 mg/dL) 0.40 AST (15 - 37 IUnit/L) 54 H ALT (30 - 65 IUnit/L) 25 L Total Alk Phosphatase (20 - 125 IUnit/L) 70 Total Creatine Kinase (35 - 232 Units/L) 1697 *H Troponin I (0.000 - 0.045 ng/mL) 0.094 H Total Protein (6.4 - 8.2 g/dL) 6.0 L Albumin (3.4 - 5.0 g/dL) 3.00 L Laboratory Tests 01/04 01/04 01/03 0435 0035 2010 Hematology WBC (4.5 - 11.0 x10 3/uL) 6.9 RBC (4.00 - 5.60 x10 6/uL) 3.73 L Hgb (12.5 - 16.9 g/dL) 8.2 L 9.6 L 9.9 L Hct (37.5 - 50.7 %) 26.9 L 30.8 L 31.5 L MCV (81.0 - 99.0 fL) 84.5 MCH (27.0 - 33.0 pg) 26.5 L MCHC (33.0 - 37.0 g/dL) 31.4 L RDW (11.5 - 14.5 %) 14.4 Plt Count (150 - 400 x10 3/uL) 372 MPV (7.0 - 9.0 fL) 10.4 H Neut % (Auto) (56.0 - 77.0 %) 73.9 Lymph % (Auto) (14.0 - 32.0 %) 16.7 Highland % (Auto) (4.8 - 9.0 %) 8.0 Eos % (Auto) (0.3 - 3.7 %) 0.0 L Baso % (Auto) (0.0 - 2.0 %) 0.1 Neut # (Auto) (2.0 - 7.6 x10 3/uL) 5.08 Lymph # (Auto) (1.0 - 3.8 x10 3/uL) 1.15 Highland # (Auto) (0.1 - 0.8 x10 3/uL) 0.55 Eos # (Auto) (0.0 - 0.2 x10 3/uL) 0.00 Baso # (Auto) (0.0 - 0.2 x10 3/uL) 0.01 Abs Immat Gran (auto) (0.00 - 0.03 x10 3/uL) 0.09 H Add Manual Diff NO Immature Gran % (0.0 - 2.0 %) 1.3 Nucleated RBC % (0 - 0 %) 0.0 Nucleated RBCs # (Man) (0.0 - 0.1 x10 3/uL) 0.00 Laboratory Tests 01/03 2330 Serology SARS-CoV-2 (PCR) (Negative) POSITIVE H Laboratory Tests 01/03 2011 Toxicology Ethyl Alcohol (<10 mg/dL) < 3.0 Diagnosis, Assessment Plan Free Text DxA P NotesFree text DxA P notes:Patient seen and evaluated, discussed with care team, Images and laboratory reviewedHistory of HTN: metoprolol: Monitor BP closely and adjust medications as neededDM: insulin: Monitor BS closely and adjust medications as neededHLD: Lipitor: We will hold due to rhabdomyolysisCAD status post PCI in May 2019.COVID-19 positiveHistory of peripheral arterial diseaseRhabdomyolysis: Hold Lipitor: IV fluidNausea/vomiting: Supportive careCKD: Baseline creatinine in April 2020 was 2.2, estimated GFR 37 mm/min, stage III chronic kidney diseaseAcute kidney injury: Likely related to nausea /vomiting and possibly low-grade rhabdomyolysis: IV fluid trial check renal and bladder ultrasound. Check urinalysis and urine protein creatinine ratio. at 1338 RPT #:[id number] OF REPORTDGFxxkhdzzfasq3408-64-50O26:59:00G.[id number] for patient [id number]:38:25 HCACL 2021-01-03 19:20:00 [id number]:20:00 H [place] [facility] ([facility])EMERGENCY PROVIDER REPORTREPORT#:[id number] REPORT STATUS: SignedDATE:01/03/21 TIME: 1919 PATIENT: DUSTY FRANCOIS UNIT #: [id number]#: [id number] [address] SEX: M PCP PHYS: Shawanda Wild DOSERVICE AUTHOR: Viktor Ying MD * ALL edits or amendments must be made on the electronic/computer document * HPI-Nausea/Vomit/Diarrhea GeneralInitial Greet Date/Time 01/03/211854 PresentationChief Complaint Nausea, Vomiting Free Text HPI NotesFree Text HPI [id number] with history of hypertension, coronary artery disease, anemia, recently hospitalized at [facility] for Covid infection and anemia. Patient received an iron infusion yesterday. Patient comes in with severe nausea and vomiting. No abdominal pain. Patient also states he feels extremely weak. Review of Systems ROS StatementsAll systems rev neg except as marked. Focused Review of SystemsConstitutionalReports: Weakness - generalized. Ears/Nose/ThroatDenies: Ear drainage R, Ear drainage L, Ear drainage bilat, Ear ringing R, Ear ringing L, Ear ringing bilat, Earache R, Earache L, Earache bilat, Hearing loss R, Hearing loss L, Hearing loss bilat, Mouth pain, Nasal congestion, Nose bleeding, Sinus problem, Sore throat, Throat pain, Throat swelling, Tongue pain,Tongue swelling, Toothache, Voice change. GIReports: Bloody/tarry stool, Hematemesis, Melena, Nausea, Vomiting. NeurologicReports: Generalized weakness. Denies: Abnormal movement, Bladder dysfunction, Bowel dysfunction, Change LOC, Confusion, Dizziness, Focal weakness, Headache, Lightheaded, Numbness, Problem walking, Seizure, Shaking, Slurred speech, Spinning sensation, Syncope, Tingling, Unable to speak, Vision change. Additional Review of SystemsRespiratoryReports: Cough, non-productive. Denies: Cough, productive, Dyspnea on exertion,Hemoptysis, Parox nocturnal dyspnea, Pleuritic pain, Shortness of breath, Wheezing. CardiovascularDenies: Chest pain, Dyspnea on exertion, Edema, Orthopnea, Palpitations, Parox nocturnal dyspnea, Syncope. Past Medical History - AdultStated Complaint (+) COVID, NAUSEA, VOMITIGNAllergiesCoded Allergies:No Known Allergies (01/03/21) Home MedicationsActive ScriptsINSULIN DETEMIR (LEVEMIR FlexTouch (15mL)) 25 UNITS SUBQ DAILY 90 Days #15 ML Prov: 08/30/20TICAGRELOR (BRILINTA) 90 MG PO BID TICAGRELOR (BRILINTA) 90 MG PO BID #180 TAB Ref 4 Prov: 06/13/19ASPIRIN 81 MG PO DAILY ASPIRIN 81 MG PO DAILY #90 TAB Ref 4 Prov: 06/13/19 Reported MedicationsMETOPROLOL SUCC XL (TOPROL XL) 25 MG PO BID FUROSEMIDE (LASIX) 40 MG PO BID PRN EDEMA ATORVASTATIN (LIPITOR) 80 MG PO DAILY TAMSULOSIN ER (FLOMAX) 0.4 MG PO BEDTIME POLYETHYLENE GLYCOL 3350 (MIRALAX) 17 GM PO DAILY CHOLECALCIFEROL (VITAMIN D3) (VITAMIN D3) 50,000 UNIT PO Q7D [repatha] Past Medical History:Reports: Diabetes mellitus, Kidney disease/stones (Chronic kidney disease), Prior [place]. Additional Medical Historygastroparesis, CVAAdditional Surgical HistoryToe amputation, x2 cardiac stentsAdditional Family HistoryBrother and Father CADAlcohol Use Denies EtOH useDrug Use Denies recreational drugs Physical Exam Vital SignsVital SignsFirst Documented: Result Date Time Pulse Ox 98 01/03 1950 B/P 154/94 01/03 1950 B/P Mean 114 01/03 1950 O2 Delivery Room air 01/03 1950 Temp 37.2 01/03 1950 Pulse 91 01/03 1950 Resp 01/03 Last Documented: Result Date Time Pulse Ox 98 01/03 1950 B/P 154/94 01/03 1950 B/P Mean 114 01/03 1950 O2 Delivery Room air 01/03 1950 Temp 37.2 01/03 1950 Pulse 91 01/03 1950 Resp 01/03 Review of Vital Signs Reviewed Free Text PE NotesFree Text PE NotesPatient alert and oriented x3, acutely and chronically ill-appearing, pale, nondiaphoretic, he was extremely weak affect and was unable to really get up andwalk. Is dry mucous membranes, neck supple no JVD, lungs clear to auscultation bilaterally without respiratory distress, heart regular rate and rhythm. Abdomen soft nontender deep palpation, no focal neuro deficits. No rash or petechia. No meningeal signs. Note that during the evaluation patient began vomiting in front of me and it was noted that patient was vomiting a coffee ground/slightly blood tinged substance. Interpretation Diagnostics Lab Results InterpretationResultsLaboratory Tests 01/03/212010:[Embedded Image Not Available]Laboratory Tests: 01/03 Chemistry Sodium (134 - 147 mEq/L) 139 Potassium (3.4 - 5.0 mEq/L) 4.9 Chloride (100 - 108 mEq/L) 106 Carbon Dioxide (21 - 33 mEq/l) 23 Anion Gap (0 - 20) 15 BUN (7 - 18 mg/dL) 64 H Creatinine (0.6 - 1.3 mg/dL) 3.0 H Glomerular Filtr Rate (90 - 95) 26.1 L Glucose (70 - 110 mg/dL) 371 H Calcium (8.0 - 10.5 mg/dL) 9.3 Iron (35 - 150 mcg/dL) 123 Total Bilirubin (0.0 - 1.0 mg/dL) 0.40 AST (15 - 37 IUnit/L) 54 H ALT (30 - 65 IUnit/L) 25 L Total Alk Phosphatase (20 - 125 IUnit/L) 70 Total Creatine Kinase (35 - 232 Units/L) 1697 *H Troponin I (0.000 - 0.045 ng/mL) 0.094 H Total Protein (6.4 - 8.2 g/dL) 6.0 L Albumin (3.4 - 5.0 g/dL) 3.00 L LDL Cholesterol Measurd (0 - 100 mg/dL) 114.8 H Hematology WBC (4.5 - 11.0 x10 3/uL) 6.9 RBC (4.00 - 5.60 x10 6/uL) 3.73 L Hgb (12.5 - 16.9 g/dL) 9.9 L Hct (37.5 - 50.7 %) 31.5 L MCV (81.0 - 99.0 fL) 84.5 MCH (27.0 - 33.0 pg) 26.5 L MCHC (33.0 - 37.0 g/dL) 31.4 L RDW (11.5 - 14.5 %) 14.4 Plt Count (150 - 400 x10 3/uL) 372 MPV (7.0 - 9.0 fL) 10.4 H Neut % (Auto) (56.0 - 77.0 %) 73.9 Lymph % (Auto) (14.0 - 32.0 %) 16.7 Highland % (Auto) (4.8 - 9.0 %) 8.0 Eos % (Auto) (0.3 - 3.7 %) 0.0 L Baso % (Auto) (0.0 - 2.0 %) 0.1 Neut # (Auto) (2.0 - 7.6 x10 3/uL) 5.08 Lymph # (Auto) (1.0 - 3.8 x10 3/uL) 1.15 [place]land # (Auto) (0.1 - 0.8 x10 3/uL) 0.55 Eos # (Auto) (0.0 - 0.2 x10 3/uL) 0.00 Baso # (Auto) (0.0 - 0.2 x10 3/uL) 0.01 Abs Immat Gran (auto) (0.00 - 0.03 x10 3/uL) 0.09 H Add Manual Diff NO Immature Gran % (0.0 - 2.0 %) 1.3 Nucleated RBC % (0 - 0 %) 0.0 Nucleated RBCs # (Man) (0.0 - 0.1 x10 3/uL) 0.00 Toxicology Ethyl Alcohol (<10 mg/dL) < 3.0 Recent Impressions:RADIOLOGY - XR CHEST 1 V 01/03 2118 Report Impression - Status: SIGNED Entered: 01/03/20212140 IMPRESSION: No evidence for acute cardiopulmonary disease. SL: SG-HImpression By: [id number] - Mateo Tian M.D. Lab Imaging StatementLaboratory radiographic studies reviewed and considered in the medical decision-making. ECG #1 InterpretationText/Dict NoteFebruary 2020 time 2157, normal sinus rhythm ventricular rate 89 bpm, left atrial enlargement, left axis deviation, incomplete right bundle branch block, old septal [place], no STEMI, adequate tracing, documented MUSE Interpreted and reviewed by me, ED physician Re-Evaluation MDM Free Text MDM NotesFree Text MDM NotesPt clinically w/ upper GI bleed, as pt seen vomiting coffee ground substance w/ dark venous bloody specks in front of me. Pt also w/ acute on chronic renal failure. Pt treated w/ IVF bolus. ED CourseMedication(s) OrderedMedication(s) Ordered:Cardiovascular Drugs Sig/Jean Carlos Start time Last Medication Dose Route Stop Time Status Admin Hydralazine HCl 10 MG X1ED STA 01/03 2234 DC 01/03 IV 01/03 Electrolytic, Caloric, And Alex Sig/Jean Carlos Start time Last Medication Dose Route Stop Time Status Admin Sodium Chloride 1,000 ML .Q6H40M 01/03 2245 AC 01/03 IV 01/04 Sodium Chloride 0 ASDIR PRN 01/03 1930 AC IV 01/04 1817 Sodium Chloride 10 ML ASDIR PRN 01/03 1930 AC IV 02/02 1929 Sodium Chloride 1,000 ML X1ED STA 01/03 1919 DC 01/03 IV 01/03 Gastrointestinal Drugs Sig/Jean Carlos Start time Last Medication Dose Route Stop Time Status Admin Pantoprazole Sodium 80 MG X1ED STA 01/032 AC 01/04 Sodium Chloride 100 ML IV 01/04 0841 0051 Ondansetron HCl 8 MG X1ED STA 01/03 1920 DC 01/03 IV 01/03 Pantoprazole Sodium 80 MG X1ED STA 01/03 1920 DC 01/03 IV 01/03 Patient Discharge Departure Vital Signs/ConditionVital SignsFirst Documented: Result Date Time Pulse Ox 98 01/03 1950 B/P 154/94 01/03 1950 B/P Mean 114 01/03 1950 O2 Delivery Room air 01/03 1950 Temp 37.2 01/03 1950 Pulse 91 01/03 1950 Resp 01/03 Last Documented: Result Date Time Pulse Ox 98 01/03 1950 B/P 154/94 01/03 1950 B/P Mean 114 01/03 1950 O2 Delivery Room air 01/03 1950 Temp 37.2 01/03 1950 Pulse 91 01/03 1950 Resp 01/03 All vital signs available at the time of this entry have been reviewed. Condition Stable, Improved, Guarded Clinical ImpressionClinical ImpressionPrimary Impression: Upper GI bleedSecondary Impressions: Acute on chronic renal failure, COVID-19 virus infection Disposition DecisionAdmit Admit Physician Name Kyung Bedoya MD Admit Physician Hospitalist Request Time 2242 Request Date 01/03/21 )( Admission Accepts Yes )( Accepted Time 2242 )( Accepted Date 01/03/21 Call Information will see patient Discharge/Care PlanCounseled Regarding Diagnosis, Lab results, Need for admission(Auto) PrescriptionsCurrent Visit ScriptsPANTOPRAZOLE DR (PROTONIX) 40 MG PO DAILY PANTOPRAZOLE DR (PROTONIX) 40 MG PO DAILY #14 TABS Critical CareTime Spent (minutes): 38Services Performed Patient management by me, Time spent at bedside, Reviewing test results, Reviewing imaging, Discussing patient care, Documentation in record, Time with fam/surrogateSeparately billable procedures excluded from time.Patient was critically ill due to:upper GI bleed, acute kidney injuryMy treatment and management were:IVF resuscitation, IV protonix, gi consult CC Note 1Total critical care time [38] minutes. Total critical care time documented does not include time spent on separately billed procedures or the services of residents, students, nurses or physician assistants. I personally saw and examined the patient. I have reviewed all diagnostic interpretations and treatment plans as written. I was present for the tim portions of any proceduresperformed and the inclusive time noted in any critical care statement. Critical care time includes patient management by me, time spent at the patients bedside,time to review lab and imaging results, discussing patient care, documentation in the medical record, and time spent with the family or caregiver. at 0051RPT #:[id number] OF REPORTEDEmergency department [id number]:20:00G.[id number] able for patient [id number]:52:17 HCACL 2020-12-24 03:28:00 [id number]:28:00 [facility] REPORTREPORT#:[id number] REPORT STATUS: SignedDATE:12/24/20 TIME: 327 PATIENT: DUSTY FRANCOIS UNIT #: [id number]#: [id number] ROOM/BED:AGE: 60 SEX: M PCP PHYS: Shawanda Wild DOSERVICE AUTHOR: Penny Shay * ALL edits or amendments must be made on the electronic/computer document * HPI-URI/Cough/Cold Free Text HPI NotesFree Text HPI [id number] male with PMHx HTN, IDDM, CAD, coronary artery stents-on Plavix, presents to ER with cough onset yesterday. Denies fever, chest pain, shortness of breath, nausea/vomiting, diarrhea or constipation, or any other associated symptoms. GeneralConfirmed Patient YesPatient Type New patientInitial Greet Date/Time 12/24/20326 PresentationChief Complaint Cough, non-productiveHx Obtained From PatientOnset Occurred Gradual, YesterdaySymptom Duration Since onsetProgression since Onset UnchangedAssociated Other Pt denies other symptomsExacerbated by NothingRelieved by Nothing Review of Systems ROS StatementsAll systems rev neg except as marked. Focused Review of SystemsConstitutionalDenies: Fever. RespiratoryReports: Cough, non-productive. Past Medical History - AdultStated Complaint FEVER, COUGH X 1 DAYAllergiesCoded Allergies:No Known Allergies (08/27/20) Home MedicationsActive ScriptsINSULIN DETEMIR (LEVEMIR FlexTouch (15mL)) 30 UNITS SUBQ BEDTIME 90 Days #15 ML Prov: 08/30/20INSULIN DETEMIR (LEVEMIR FlexTouch (15mL)) 25 UNITS SUBQ DAILY 90 Days #15 ML Prov: 08/30/20INSULIN ASPART (NovoLOG FLEXPEN (15mL)) 6 UNITS SUBQ AC 90 Days #15 ML Prov: 08/30/20TICAGRELOR (BRILINTA) 90 MG PO BID TICAGRELOR (BRILINTA) 90 MG PO BID #180 TAB Ref 4 Prov: 06/13/19ASPIRIN 81 MG PO DAILY ASPIRIN 81 MG PO DAILY #90 TAB Ref 4 Prov: 06/13/19 Reported MedicationsMETOPROLOL SUCC XL (TOPROL XL) 25 MG PO BID FUROSEMIDE (LASIX) 40 MG PO BID PRN EDEMA ATORVASTATIN (LIPITOR) 80 MG PO DAILY TAMSULOSIN ER (FLOMAX) 0.4 MG PO BEDTIME POLYETHYLENE GLYCOL 3350 (MIRALAX) 17 GM PO DAILY CHOLECALCIFEROL (VITAMIN D3) (VITAMIN D3) 50,000 UNIT PO Q7D [repatha] Past Medical History:Reports: Diabetes mellitus, Kidney disease/stones (Chronic kidney disease), Prior [place]. Additional Medical Historygastroparesis, CVAAdditional Surgical HistoryToe amputation, x2 cardiac stentsAdditional Family HistoryBrother and Father CADAlcohol Use Denies EtOH useDrug Use Denies recreational drugs Physical Exam Vital SignsVital SignsFirst Documented: Result Date Time Pulse Ox 97 12/24 0332 B/P 178/89 12/24 0332 B/P Mean 118 12/24 0332 O2 Delivery Room air 12/24 331 Temp 37.2 12/24 033 Pulse 72 12/24 033 Resp 16 12/24 331 Last Documented: Result Date Time Pulse Ox 97 12/24 0332 B/P 178/89 12/24 0332 B/P Mean 118 12/24 0332 O2 Delivery Room air 12/24 033 Temp 37.2 12/24 0332 Pulse 72 12/24 0332 Resp 16 12/24 0332 Review of Vital Signs Reviewed Focused PEGeneral/Const General/Const Awake, Alert, CooperativeEyes Eyes PERRL, EOMIEars/Nose/Throat Ears/Nose/Throat Airway patent, Mucous membranes moistMS Neck Neck Supple, No meningismusResp/Chest Respiratory/Chest Breath sounds NL, Breath sounds = bilat, No rales, No rhonchi, No wheezingCardiovascular Cardiovascular Heart rate NL, Regular rhythm, Heart sounds NLAbdomen/GI Abdomen/GI Soft, Non-tender, No guarding, No rebound, BS normoactive, No distentionSkin Skin Warm, Dry, IntactNeurologic Neurologic Oriented X3, Speech NL, No motor deficits, No sensory deficits Interpretation Diagnostics Lab Results InterpretationResultsLaboratory Tests: 12/24 327 Serology SARS CoV-2 RNA Rapid FARHAN (Negative) POSITIVE Recent Impressions:RADIOLOGY - XR CHEST 1 V 12/24 348 Report Impression - Status: SIGNED Entered: 12/24/2020409 IMPRESSION:1. No acute cardiopulmonary disease seen. SL: [JSYED-H]Impression By: [email or web address] Veronica Lemos M.D. Point of Care TestingPulse Oximetry Pulse Ox % 97 On: Room air Interpretation Interpreted by me, Pulse oximetry normal Re-Evaluation MDM Free Text MDM NotesFree Text MDM NotesDiscussed lab and imaging results with patient. Patient is COVID-19 positive Re-Evaluation/ProgressRe-Evaluation/Progress Time of Re-Eval 044 Patient Discharge Departure Vital Signs/ConditionVital SignsFirst Documented: Result Date Time Pulse Ox 97 12/24 0332 B/P 178/89 12/24 0332 B/P Mean 118 12/24 0332 O2 Delivery Room air 12/24 331 Temp 37.2 12/24 0332 Pulse 72 12/24 0332 Resp 16 12/24 331 Last Documented: Result Date Time Pulse Ox 97 12/24 0332 B/P 178/89 12/24 0332 B/P Mean 118 12/24 0332 O2 Delivery Room air 12/24 331 Temp 37.2 12/24 0332 Pulse 72 12/24 0332 Resp 16 12/24 0332 All vital signs available at the time of this entry have been reviewed. Condition Stable Clinical ImpressionClinical ImpressionPrimary Impression: COVID-19 Disposition DecisionDischarge )( Discharged to Home Yes )( Time 0444 )( Date 12/24/20 Discharge/Care PlanCounseled Regarding Diagnosis, Lab results, Imaging studies, Need for follow-upPatient Instructions 2019-nCoV, COVID-19 Home Care, Preventing the Spread of ...Departure FormsWORK/SCHOOL EXCUSE VARIABLE at 0444RPT #:[id number] OF REPORTEDEmergency department [id number]:28:00G.[id number] able for patient [id number]:06:47 HCACL 2020-12-24 03:28:00 [id number]:28:00 H [place] [facility] ([facility])EMERGENCY PROVIDER REPORTREPORT#:[id number] REPORT STATUS: SignedDATE:12/24/20 TIME: 327 PATIENT: DUSTY FRANCOIS UNIT #: [id number]#: [id number] ROOM/BED:AGE: 60 SEX: M PCP PHYS: Shawanda Wild DOSERVICE AUTHOR: Penny Shay MEDICAL BILLER * ALL edits or amendments must be made on the electronic/computer document * Penny Shay. 12/24/20 0328:HPI-URI/Cough/Cold Free Text HPI NotesFree Text HPI [id number] male with PMHx HTN, IDDM, CAD, coronary artery stents-on Plavix, presents to ER with cough onset yesterday. Denies fever, chest pain, shortness of breath, nausea/vomiting, diarrhea or constipation, or any other associated symptoms. GeneralConfirmed Patient YesPatient Type New patient PresentationChief Complaint Cough, non-productiveHx Obtained From PatientOnset Occurred Gradual, YesterdaySymptom Duration Since onsetProgression since Onset UnchangedAssociated Other Pt denies other symptomsExacerbated by NothingRelieved by Nothing Review of Systems ROS StatementsAll systems rev neg except as marked. Focused Review of SystemsConstitutionalDenies: Fever. RespiratoryReports: Cough, non-productive. Past Medical History - AdultStated Complaint FEVER, COUGH X 1 DAYAllergiesCoded Allergies:No Known Allergies (08/27/20) Home MedicationsActive ScriptsINSULIN DETEMIR (LEVEMIR FlexTouch (15mL)) 30 UNITS SUBQ BEDTIME 90 Days #15 ML Prov: 08/30/20INSULIN DETEMIR (LEVEMIR FlexTouch (15mL)) 25 UNITS SUBQ DAILY 90 Days #15 ML Prov: 08/30/20INSULIN ASPART (NovoLOG FLEXPEN (15mL)) 6 UNITS SUBQ AC 90 Days #15 ML Prov: 08/30/20TICAGRELOR (BRILINTA) 90 MG PO BID TICAGRELOR (BRILINTA) 90 MG PO BID #180 TAB Ref 4 Prov: 06/13/19ASPIRIN 81 MG PO DAILY ASPIRIN 81 MG PO DAILY #90 TAB Ref 4 Prov: 06/13/19 Reported MedicationsMETOPROLOL SUCC XL (TOPROL XL) 25 MG PO BID FUROSEMIDE (LASIX) 40 MG PO BID PRN EDEMA ATORVASTATIN (LIPITOR) 80 MG PO DAILY TAMSULOSIN ER (FLOMAX) 0.4 MG PO BEDTIME POLYETHYLENE GLYCOL 3350 (MIRALAX) 17 GM PO DAILY CHOLECALCIFEROL (VITAMIN D3) (VITAMIN D3) 50,000 UNIT PO Q7D [repatha] Past Medical History:Reports: Diabetes mellitus, Kidney disease/stones (Chronic kidney disease), Prior [place]. Additional Medical Historygastroparesis, CVAAdditional Surgical HistoryToe amputation, x2 cardiac stentsAdditional Family HistoryBrother and Father CADAlcohol Use Denies EtOH useDrug Use Denies recreational drugs Physical Exam Vital SignsVital SignsFirst Documented: Result Date Time Pulse Ox 97 12/24 0332 B/P 178/89 12/24 0332 B/P Mean 118 12/24 0332 O2 Delivery Room air 12/24 331 Temp 37.2 12/24 033 Pulse 72 12/24 0332 Resp 16 12/24 033 Last Documented: Result Date Time Pulse Ox 97 12/24 0332 B/P 178/89 12/24 0332 B/P Mean 118 12/24 0332 O2 Delivery Room air 12/24 033 Temp 37.2 12/24 0332 Pulse 72 12/24 0332 Resp 16 12/24 0332 Review of Vital Signs Reviewed Focused PEGeneral/Const General/Const Awake, Alert, CooperativeEyes Eyes PERRL, EOMIEars/Nose/Throat Ears/Nose/Throat Airway patent, Mucous membranes moistMS Neck Neck Supple, No meningismusResp/Chest Respiratory/Chest Breath sounds NL, Breath sounds = bilat, No rales, No rhonchi, No wheezingCardiovascular Cardiovascular Heart rate NL, Regular rhythm, Heart sounds NLAbdomen/GI Abdomen/GI Soft, Non-tender, No guarding, No rebound, BS normoactive, No distentionSkin Skin Warm, Dry, IntactNeurologic Neurologic Oriented X3, Speech NL, No motor deficits, No sensory deficits Interpretation Diagnostics Lab Results InterpretationResultsLaboratory Tests: 12/24 327 Serology SARS CoV-2 RNA Rapid FARHAN (Negative) POSITIVE A Recent Impressions:RADIOLOGY - XR CHEST 1 V 12/24 348 Report Impression - Status: SIGNED Entered: 12/24/2020 0410 IMPRESSION:1. No acute cardiopulmonary disease seen. SL: [JSYED-H]Impression By: [email or web address] Veronica Lemos M.D. Point of Care TestingPulse Oximetry Pulse Ox % 97 On: Room air Interpretation Interpreted by me, Pulse oximetry normal Re-Evaluation MDM Free Text MDM NotesFree Text MDM NotesDiscussed lab and imaging results with patient. Patient is COVID-19 positive Re-Evaluation/ProgressRe-Evaluation/Progress Time of Re-Eval 044 Patient Discharge Departure Vital Signs/ConditionVital SignsFirst Documented: Result Date Time Pulse Ox 97 12/24 0332 B/P 178/89 12/24 0332 B/P Mean 118 12/24 0332 O2 Delivery Room air 12/24 331 Temp 37.2 12/24 0332 Pulse 72 12/24 0332 Resp 16 12/24 0332 Last Documented: Result Date Time Pulse Ox 97 12/24 0332 B/P 178/89 12/24 0332 B/P Mean 118 12/24 0332 O2 Delivery Room air 12/24 0332 Temp 37.2 12/24 0332 Pulse 72 12/24 0332 Resp 16 12/24 0332 All vital signs available at the time of this entry have been reviewed. Condition Stable Clinical ImpressionClinical ImpressionPrimary Impression: COVID-19 Disposition DecisionDischarge )( Discharged to Home Yes )( Time 0444 )( Date 12/24/20 Discharge/Care PlanCounseled Regarding Diagnosis, Lab results, Imaging studies, Need for follow-upPatient Instructions 2019-nCoV, COVID-19 Home Care, Preventing the Spread of ...Departure FormsWORK/SCHOOL EXCUSE VARIABLE Edgar Cooper 12/25/20 0150:HPI-URI/Cough/Cold GeneralInitial Greet Date/Time 12/24/20 0327 Patient Discharge Departure Supervising Physician Note MidLv Saw Pt AloneI have reviewed the PA/MEDICATION ADMINISTRATION PROFESSIONAL's note and plan of care. I was available for consultation as needed at all times during the patient's visit in the emergency department. I agree with the clinical impression, plan and disposition. at 0444RPT #:[id number] OF REPORTEDEmergency department gmoxko2665-41-12F00:28:00G.[id number] able for patient hhghYGUICDKBATGUIB9926-00-34L76:50:55 HCACL 2020-12-24 03:28:00 MByoseicjfp145388668934-47-03N10:28:00 H [facility] ([facility])EMERGENCY PROVIDER REPORTREPORT#:[id number] REPORT STATUS: SignedDATE:12/24/20 TIME: 327 PATIENT: DUSTY FRANCOIS UNIT #: [id number]#: [id number] ROOM/BED:AGE: 60 SEX: M PCP PHYS: Shawanda Wild DOSERVICE AUTHOR: Penny Shay MEDICAL BILLER * ALL edits or amendments must be made on the electronic/computer document * Penny Shay. 12/24/20 0328:HPI-URI/Cough/Cold Free Text HPI NotesFree Text HPI Nsbrt90-zvdl-nhg male with PMHx HTN, IDDM, CAD, coronary artery stents-on Plavix, presents to ER with cough onset yesterday. Denies fever, chest pain, shortness of breath, nausea/vomiting, diarrhea or constipation, or any other associated symptoms. GeneralConfirmed Patient YesPatient Type New patient PresentationChief Complaint Cough, non-productiveHx Obtained From PatientOnset Occurred Gradual, YesterdaySymptom Duration Since onsetProgression since Onset UnchangedAssociated Other Pt denies other symptomsExacerbated by NothingRelieved by Nothing Review of Systems ROS StatementsAll systems rev neg except as marked. Focused Review of SystemsConstitutionalDenies: Fever. RespiratoryReports: Cough, non-productive. Past Medical History - AdultStated Complaint FEVER, COUGH X 1 DAYAllergiesCoded Allergies:No Known Allergies (08/27/20) Home MedicationsActive ScriptsINSULIN DETEMIR (LEVEMIR FlexTouch (15mL)) 30 UNITS SUBQ BEDTIME 90 Days #15 ML Prov: 08/30/20INSULIN DETEMIR (LEVEMIR FlexTouch (15mL)) 25 UNITS SUBQ DAILY 90 Days #15 ML Prov: 10/16/20INSULIN ASPART (NovoLOG FLEXPEN (15mL)) 6 UNITS SUBQ AC 90 Days #15 ML Prov: 08/30/20TICAGRELOR (BRILINTA) 90 MG PO BID TICAGRELOR (BRILINTA) 90 MG PO BID #180 TAB Ref 4 Prov: 06/13/19ASPIRIN 81 MG PO DAILY ASPIRIN 81 MG PO DAILY #90 TAB Ref 4 Prov: 06/13/19 Reported MedicationsMETOPROLOL SUCC XL (TOPROL XL) 25 MG PO BID FUROSEMIDE (LASIX) 40 MG PO BID PRN EDEMA ATORVASTATIN (LIPITOR) 80 MG PO DAILY TAMSULOSIN ER (FLOMAX) 0.4 MG PO BEDTIME POLYETHYLENE GLYCOL 3350 (MIRALAX) 17 GM PO DAILY CHOLECALCIFEROL (VITAMIN D3) (VITAMIN D3) 50,000 UNIT PO Q7D [repatha] Past Medical History:Reports: Diabetes mellitus, Kidney disease/stones (Chronic kidney disease), Prior [place]. Additional Medical Historygastroparesis, CVAAdditional Surgical HistoryToe amputation, x2 cardiac stentsAdditional Family HistoryBrother and Father CADAlcohol Use Denies EtOH useDrug Use Denies recreational drugs Physical Exam Vital SignsVital SignsFirst Documented: Result Date Time Pulse Ox 97 12/24 0332 B/P 178/89 12/24 0332 B/P Mean 118 12/24 0332 O2 Delivery Room air 12/24 331 Temp 37.2 12/24 0332 Pulse 72 12/24 0332 Resp 16 12/242 Last Documented: Result Date Time Pulse Ox 97 12/24 0332 B/P 178/89 12/24 0332 B/P Mean 118 12/24 0332 O2 Delivery Room air 12/24 033 Temp 37.2 12/24 0332 Pulse 72 12/24 0332 Resp 16 12/24 0332 Review of Vital Signs Reviewed Focused PEGeneral/Const General/Const Awake, Alert, CooperativeEyes Eyes PERRL, EOMIEars/Nose/Throat Ears/Nose/Throat Airway patent, Mucous membranes moistMS Neck Neck Supple, No meningismusResp/Chest Respiratory/Chest Breath sounds NL, Breath sounds = bilat, No rales, No rhonchi, No wheezingCardiovascular Cardiovascular Heart rate NL, Regular rhythm, Heart sounds NLAbdomen/GI Abdomen/GI Soft, Non-tender, No guarding, No rebound, BS normoactive, No distentionSkin Skin Warm, Dry, IntactNeurologic Neurologic Oriented X3, Speech NL, No motor deficits, No sensory deficits Interpretation Diagnostics Lab Results InterpretationResultsLaboratory Tests: 12/24 327 Serology SARS CoV-2 RNA Rapid FARHAN (Negative) POSITIVE A Recent Impressions:RADIOLOGY - XR CHEST 1 V 12/24 348 Report Impression - Status: SIGNED Entered: 12/24/2020409 IMPRESSION:1. No acute cardiopulmonary disease seen. SL: [JSYED-H]Impression By: [email or web address] Veronica Lemos M.D. Point of Care TestingPulse Oximetry Pulse Ox % 97 On: Room air Interpretation Interpreted by me, Pulse oximetry normal Re-Evaluation MDM Free Text MDM NotesFree Text MDM NotesDiscussed lab and imaging results with patient. Patient is COVID-19 positive Re-Evaluation/ProgressRe-Evaluation/Progress Time of Re-Eval 044 Patient Discharge Departure Vital Signs/ConditionVital SignsFirst Documented: Result Date Time Pulse Ox 97 12/24 0332 B/P 178/89 12/24 0332 B/P Mean 118 12/24 0332 O2 Delivery Room air 12/24 033 Temp 37.2 12/24 0332 Pulse 72 12/24 0332 Resp 16 12/242 Last Documented: Result Date Time Pulse Ox 97 12/24 0332 B/P 178/89 12/24 0332 B/P Mean 118 12/24 0332 O2 Delivery Room air 12/24 331 Temp 37.2 12/24 0332 Pulse 72 12/24 0332 Resp 16 12/242 All vital signs available at the time of this entry have been reviewed. Condition Stable Clinical ImpressionClinical ImpressionPrimary Impression: COVID-19 Disposition DecisionDischarge )( Discharged to Home Yes )( Time 0444 )( Date 12/24/20 Discharge/Care PlanCounseled Regarding Diagnosis, Lab results, Imaging studies, Need for follow-upPatient Instructions 2019-nCoV, COVID-19 Home Care, Preventing the Spread of ...Departure FormsWORK/SCHOOL EXCUSE VARIABLE Edgar Cooper 12/25/20 0150:HPI-URI/Cough/Cold GeneralInitial Greet Date/Time 12/24/20 0327 Patient Discharge Departure Supervising Physician Note MidLv Saw Pt AloneI have reviewed the PA/MEDICATION ADMINISTRATION PROFESSIONAL's note and plan of care. I was available for consultation as needed at all times during the patient's visit in the emergency department. I agree with the clinical impression, plan and disposition. at 0444 at 0153RPT #:[id number] OF REPORTEDEmergency department squszu8984-35-18T59:28:00G.[id number] able for patient clblAXVWCBKVGBXLKA9597-62-88D27:53:46 [facility] 2020-09-01 21:03:00 IOrkxyxkgbe871988861933-34-55X97:03:0010 [place] [address] PATIENT NAME: DUSTY FRANCOIS ADMIT DATE: 08/27/20ACCOUNT NO: [id number] ROOM NO: [facility] AGE: 60 REPORT TYPE: DISCHARGE SUMMARY SEX: M ADMITTING PHYSICIAN:Kyung Bedoya MD ATTENDING PHYSICIAN:Kyung Bedoya MD ADMISSION DATE: 08/27/2020DISCHARGE DATE: 08/29/2020 DISCHARGE DIAGNOSES:1. Hyperosmolar hyperglycemic state.2. Hyperkalemia.3. Pseudohyponatremia due to hyperglycemia.4. Uncontrolled diabetes, HbA1c more than 14.5. Coronary artery disease with percutaneous coronary intervention.6. Hypertension.7. Noncompliance. BRIEF HOSPITAL COURSE: This is a middle-aged male with multiple cardiovascularcomorbidities, admitted for high blood sugar more than 700 after missing hisinsulin for few days. The patient was counseled. Started on insulin,short-acting and long-acting. Blood pressure medications were optimized. Thepatient clinically improved. Hyperkalemia and hyponatremia, corrected,discharged home in a stable condition. DISCHARGE CONDITION: Stable. ACTIVITIES: As tolerated. DIET: Cardiac, diabetic diet. FOLLOWUP: Follow up with PCP. DISCHARGE PHYSICAL EXAMINATION: Documented in the chart. Dictated By: Kyung Bedoya MD WT: DS:SabaRAMON/JAVAD/NTSDD: 09/01/2020 21:03:41DT: 09/01/2020 21:19:28Conf#: [id number]/DID#: [id number] Authenticated by Kyung Bedoya MD On 09/04/2020 08:47:35 AM at 0848 PATIENT NAME: DUSTY FRANCOIS mqyajhb0521-18-91E35:19:00G.[id number] able for patient vzzgICRJMEVYOSYQEJ7237-90-24Q31:48:23 HCACL 2020-08-29 14:45:00 OKtchwppzck648851373365-59-71X43:45:00 [facility] Pro[facility]. NoteREPORT#:[id number] REPORT STATUS: SignedDATE:08/29/20 TIME: 1445 PATIENT: DUSTY FRANCOIS UNIT #: [id number]#: [id number] ROOM/BED: 6613-1DOB: [birth year] AGE: 60 SEX: M ATTEND: Kyung Bedoya MDADM AUTHOR: Kyung Bedoya MD * ALL edits or amendments must be made on the electronic/computer document * SubjectiveChief complaint:FEELING GOOD Objective GeneralVS/I O:Vital Signs Date Temp Pulse Resp B/P B/P Mean Pulse Ox FiO2 08/28-08/29 98.2-98.6 71-81 15-17 132-160/75-87 0.0-109.2 95-98 21 Last Documented: Result Date Time Pulse Ox 97 08/29 1059 B/P 160/84 08/29 1059 B/P Mean 0.0 08/29 1059 O2 Delivery Room air 08/29 1059 Temp 98.4 08/29 1059 Pulse 73 08/29 1059 Resp 15 08/29 1059 FiO2 21 08/29 0043 24 hour I O ending at 0700: 08/29 0700 08/28 1900 Intake Total 495.00 Output Total 400 Balance 495.00 -400 Intake, IV 5.00 Intake, Oral 490 Number 1 Bowel Movements Number Voids 2 Output, Urine 400 Patient Weight Weight (lb): Weight (oz): Weight (kg): 89.900 Medications:Active Meds + DC'd Last 24 HrsInsulin Glargine 25 UNIT AC BK SUBQ (DCD) Atorvastatin Calcium 80 MG 2100 PO (DCD) Insulin Glargine 30 UNIT BEDTIME SUBQ (DCD) Insulin Human Lispro 6 UNIT AC HS SUBQ (DC) Insulin Human Lispro 6 UNIT AC SUBQ (DCD) Insulin Human Lispro 0 AC HS SUBQ (DCD) Aspirin 81 MG DAILY PO (DCD) Insulin Glargine 15 UNIT DAILY SUBQ (DC) Polyethylene Glycol 17 GM DAILY PO (DCD) Insulin Glargine 26 UNIT BEDTIME SUBQ (DC) Insulin Human Lispro 0 Q4H SUBQ (DC) Metoprolol Succinate 25 MG BID PO (DCD) Tamsulosin HCl 0.4 MG BEDTIME PO (DCD) Ticagrelor 90 MG BID PO (DCD) Dextrose/Water 25 ML ASDIR PRN IV (DCD) Dextrose/Water 50 ML ASDIR PRN IV (DCD) Glucagon 1 MG ASDIR PRN IM (DCD) Furosemide 40 MG BID PRN PO (DCD) Nutrition assessment:The data set between the solid lines has been imported from the dietitian's assessment. Any exceptions have been noted under Provider comments. BMI Calculated: 27.6 Nutrition related diagnosis: Nutrition diagnosis details: Nutrition problem: Nutrition etiology: Nutrition signs and symptoms: Nutrition prescription: Dietitian name: Assessment completed: Provider comments on imported dietitian assessment: Physical ExamGeneral appearance: alert, awake, orientedHead/eyes: atraumatic, EOMI, normal conjunctiva/scleraBreast: symmetricalCardiovascular: normal capillary refill, normal heart sounds, regular rate rhythmRespiratory: shortness of breath, wheezing, aerating well, clear to auscultationExtremities: Extremities: no edemaNeuro/VACUUM FILTER OPERATOR: alert, oriented X 3 ResultsFindings/Data:Laboratory Tests 08/29 08/29 08/28 08/28 08/28 1052 0727 2333 2021 1720 Chemistry POC Glucose (70 - 110 MG/DL) 206 H 166 H 117 H 140 H 208 H Diagnosis, Assessment PlanConsultants: endocrinology Free Text DxA P NotesFree text DxA P notes:1. HYPEROSMOLAR HYPERGLYCEMIC STATE -RESOLVED 2.HYPERKALEMIA -CORRECTED 3.BRENDA ON CKD STGE 3 - BASE LINE CREATININE 2.1 -CONTINUE HYDRATIN 4.UNCONTROLED DM- DUE TO NONCOMPLIANCE 5.CAD WITH PCI -ON ASA ,BRILANTA 6.HTN -NOW IMPROVED 7.MEDICAL NONCOMPLIANCE - COUNSELLED DC HOME FU KIDNEY FUNCTION at 1447 RPT #:[id number] OF REPORTPRProgress Ypdy8318-99-11K37:45:00G.[id number] for patient ewdeDOIQJMZZLXAQKY2399-10-93L37:48:38 HCACL 2020-08-29 11:39:00 [id number]:39:00 [facility] ([facility])Endocrinology Progress NoteREPORT#:[id number] REPORT STATUS: SignedDATE:08/29/20 TIME: 1139 PATIENT: DUSTY FRANCOIS UNIT #: [id number]#: [id number] [address]DOB: [birth year] AGE: 60 SEX: M ATTEND: Kyung Bedoya AUTHOR: Philippe Cristobal MEDICATION ADMINISTRATION PROFESSIONALVeronicaC * ALL edits or amendments must be made on the electronic/computer document * SubjectiveChief Complaint:F/U DM II, tolerating diet Objective GeneralVS:Last Documented: Result Date Time Pulse Ox 97 08/29 1059 B/P 160/84 08/29 1059 B/P Mean 0.0 08/29 1059 O2 Delivery Room air 08/29 1059 Temp 98.4 08/29 105 Pulse 73 08/29 105 Resp 15 08/29 105 FiO2 21 08/29 0043 Patient Weight Weight (lb): Weight (oz): Weight (kg): 89.900 Medications:Active Meds + DC'd Last 24 HrsInsulin Glargine 25 UNIT AC BK SUBQ Atorvastatin Calcium 80 MG 2100 PO Insulin Glargine 30 UNIT BEDTIME SUBQ Insulin Human Lispro 6 UNIT AC HS SUBQ (DC) Insulin Human Lispro 6 UNIT AC SUBQ Insulin Human Lispro 0 AC HS SUBQ Aspirin 81 MG DAILY PO Insulin Glargine 15 UNIT DAILY SUBQ (DC) Polyethylene Glycol 17 GM DAILY PO Insulin Glargine 26 UNIT BEDTIME SUBQ (DC) Insulin Human Lispro 0 Q4H SUBQ (DC) Metoprolol Succinate 25 MG BID PO Tamsulosin HCl 0.4 MG BEDTIME PO Ticagrelor 90 MG BID PO Dextrose/Water 25 ML ASDIR PRN IV Dextrose/Water 50 ML ASDIR PRN IV Glucagon 1 MG ASDIR PRN IM Furosemide 40 MG BID PRN PO Acetaminophen 650 MG Q4H PRN PRN PO (DC) Ondansetron HCl 4 MG Q6H PRN PRN IV (DC) Sodium Chloride 1,000 ML .Q10H IV (DC) Nutrition assessment:The data set between the solid lines has been imported from the dietitian's assessment. Any exceptions have been noted under Provider comments. BMI Calculated: 27.6 Nutrition related diagnosis: Nutrition diagnosis details: Nutrition problem: Nutrition etiology: Nutrition signs and symptoms: Nutrition prescription: Dietitian name: Assessment completed: Provider comments on imported dietitian assessment: Physical ExamGeneral appearance: alert, awake, orientedHEENT: atraumatic, normocephalicNeck: non-tender, suppleCardiovascular: regular rate rhythm, normal heart soundsRespiratory: no distressAbdomen: soft, non-tenderGenitourinary: not indicatedExtremities: dry, warmMusculoskeletal: normal inspectionNeuro/VACUUM FILTER OPERATOR: alert, oriented X 3, normal speechSkin: dry, intact, warmFindings/data:Laboratory Tests: 08/29 08/28 08/28 08/28 08/28 0727 2333 202 1720 1206 Chemistry POC Glucose (70 - 110 MG/DL) 166 H 117 H 140 H 208 H 259 H Laboratory Tests: 08/29 08/28 08/28 08/28 08/28 0727 2333 2021 1720 1206 Chemistry POC Glucose (70 - 110 MG/DL) 166 H 117 H 140 H 208 H 259 H Diagnosis, Assessment PlanFree Text A P:1.DM IIHHNK-resolved adjust Lantus adjust Humalog monitor glucose diabetic diet diabetic teaching DC Plan: Lantus and Humalog, follow up in clinic at the next available appointment 2.CKD stage 3IV hydration at 2122 RPT #:[id number] OF REPORTPRProgress Ygpb8013-51-89S50:39:00G.[id number] anabelle for patient tlyxHHNRNJSHMUTNJZ7312-67-68E83:22:39 HCACL 2020-08-29 11:39:00 [id number]:39:00 [facility] ([facility])Endocrinology Progress NoteREPORT#:[id number] REPORT STATUS: SignedDATE:08/29/20 TIME: 1138 PATIENT: DUSTY FRANCOIS UNIT #: [id number]#: [id number] [address] [birth year] AGE: 60 SEX: M ATTEND: Kyung Bedoya MDADM AUTHOR: Philippe Cristobal * ALL edits or amendments must be made on the electronic/computer document * SubjectiveChief Complaint:F/U DM II, tolerating diet Objective GeneralVS:Last Documented: Result Date Time Pulse Ox 97 08/29 105 B/P 160/84 08/29 1059 B/P Mean 0.0 08/29 105 O2 Delivery Room air 08/29 105 Temp 98.4 08/29 1059 Pulse 73 08/29 1059 Resp 15 08/29 1059 FiO2 21 08/29 0043 Patient Weight Weight (lb): Weight (oz): Weight (kg): 89.900 Medications:Active Meds + DC'd Last 24 HrsInsulin Glargine 25 UNIT AC BK SUBQ Atorvastatin Calcium 80 MG 2100 PO Insulin Glargine 30 UNIT BEDTIME SUBQ Insulin Human Lispro 6 UNIT AC HS SUBQ (DC) Insulin Human Lispro 6 UNIT AC SUBQ Insulin Human Lispro 0 AC HS SUBQ Aspirin 81 MG DAILY PO Insulin Glargine 15 UNIT DAILY SUBQ (DC) Polyethylene Glycol 17 GM DAILY PO Insulin Glargine 26 UNIT BEDTIME SUBQ (DC) Insulin Human Lispro 0 Q4H SUBQ (DC) Metoprolol Succinate 25 MG BID PO Tamsulosin HCl 0.4 MG BEDTIME PO Ticagrelor 90 MG BID PO Dextrose/Water 25 ML ASDIR PRN IV Dextrose/Water 50 ML ASDIR PRN IV Glucagon 1 MG ASDIR PRN IM Furosemide 40 MG BID PRN PO Acetaminophen 650 MG Q4H PRN PRN PO (DC) Ondansetron HCl 4 MG Q6H PRN PRN IV (DC) Sodium Chloride 1,000 ML .Q10H IV (DC) Nutrition assessment:The data set between the solid lines has been imported from the dietitian's assessment. Any exceptions have been noted under Provider comments. BMI Calculated: 27.6 Nutrition related diagnosis: Nutrition diagnosis details: Nutrition problem: Nutrition etiology: Nutrition signs and symptoms: Nutrition prescription: Dietitian name: Assessment completed: Provider comments on imported dietitian assessment: Physical ExamGeneral appearance: alert, awake, orientedHEENT: atraumatic, normocephalicNeck: non-tender, suppleCardiovascular: regular rate rhythm, normal heart soundsRespiratory: no distressAbdomen: soft, non-tenderGenitourinary: not indicatedExtremities: dry, warmMusculoskeletal: normal inspectionNeuro/VACUUM FILTER OPERATOR: alert, oriented X 3, normal speechSkin: dry, intact, warmFindings/data:Laboratory Tests: 08/2927 2333 2021 1720 1206 Chemistry POC Glucose (70 - 110 MG/DL) 166 H 117 H 140 H 208 H 259 H Laboratory Tests: 08/2927 2333 2021 1720 1206 Chemistry POC Glucose (70 - 110 MG/DL) 166 H 117 H 140 H 208 H 259 H Diagnosis, Assessment PlanFree Text A P:1.DM IIHHNK-resolved adjust Lantus adjust Humalog monitor glucose diabetic diet diabetic teaching DC Plan: Lantus and Humalog, follow up in clinic at the next available appointment 2.CKD stage 3IV hydration at 2122 at 1330 RPT #:[id number] OF REPORTPRProgress Lwiy5043-19-32S56:39:00G.[id number] for patient yechQTZAWZGLFHJLYY1074-21-65E59:30:49 HCACL 2020-08-28 13:46:00 BSbtnbvsend387293617731-88-59J14:46:00 [facility] ([facility])Endocrinology ConsultationREPORT#:[id number] REPORT STATUS: SignedDATE:08/28/20 TIME: 1346 PATIENT: DUSTY FRANCOIS UNIT #: [id number]#: [id number] ROOM/BED: 6613-1DOB: [birth year] AGE: 60 SEX: M ATTEND: Kyung Bedoya AUTHOR: Philippe Cristobal * ALL edits or amendments must be made on the electronic/computer document * History of Present IllnessRequesting Clinician: for consult:DM Uncontrolled Chief complaint:Hyperglycemia Dehydration AKIHPI:This is a 60-year-old male with a history of CVA, myocardial infarction with PCI, insulin-dependent diabetes, hypertension, and hyperlipidemia, came to the Emergency Room with low blood pressure. He said when he checked the blood sugar, it was 77. He admits he missed his insulin for2 days with blood sugar was more than 600 on presentation. He denies any chest pain or palpitation or short of breath. Denies any abdominal pain, nausea, or vomiting. Denies dysuria, frequency, or extremity edema. The patient was evaluated in the Emergency Room. He has hyperglycemia with initial blood sugar of 87, dehydration and acute kidney injuries, admitted for further management. Consulted for uncontrolled DM. Patient is a type II diabetic.He does follow witha PCP . He takes Levemir 22 units AM and bedtime, with Novolog 12 units he takes with breakfast and bedtime. He ran out of his insulin on 08/23, his PCP did call in a refill for his insulin be never got around to picking it up from the pharmacy. He does not follow a diabetic diet and does not check his blood sugar. Glucose 877 on arrival. HgbA1c >14. History - Adult longitudinalPast medical history:Reports: Diabetes mellitus, Kidney disease/stones (Chronic kidney disease), Prior [place]. Additional medical history:gastroparesis, CVAAdditional surgical history:Toe amputation, x2 cardiac stentsAdditional family history:Brother and Father CADAlcohol use: Denies EtOH useDrug use: Denies recreational drugsSmoking status for patients 13 years old or older: Never SmokerAllergies:Coded Allergies:No Known Allergies (08/27/20) Review of SystemsConstitutional:Denies: fever. Skin:Denies: rash. Eyes:Denies: visual loss/blurred. ENT:Denies: nasal congestion, sore throat. Respiratory:Denies: SOB. Cardiovascular:Denies: chest pain. GI:Denies: abdominal pain. :Denies: dysuria. Musculoskeletal:Denies: extremity pain. Endocrine:Denies: cold intolerance, heat intolerance, polydipsia, polyphagia, polyuria, weight gain, weight loss, other. Neuro:Denies: confusion, dizziness, headache. ObjectiveVS/I O:Last Documented: Result Date Time Pulse Ox 100 08/28 730 B/P 153/88 08/28 730 B/P Mean 109 08/28 730 O2 Delivery Room air 08/28 730 Temp 98.1 08/28 730 Pulse 77 08/28 730 Resp 18 08/28 730 24 hour I O ending at 0700: 08/28 0700 08/27 1900 Intake Total Output Total Balance Patient 89.9 kg Weight Weight Bed scale Measurement Method Patient Weight Weight (lb): Weight (oz): Weight (kg): 89.900 General appearance: alert, awake, orientedHead/Eyes: atraumatic, normocephalicENT: normal ear left, normal ear right, normal noseNeck: non-tender, suppleCardiovascular: regular rate rhythm, normal heart soundsRespiratory: no distressAbdomen: soft, non-tenderGenitourinary: not indicatedExtremities: moves allMusculoskeletal: normal inspectionNeuro/VACUUM FILTER OPERATOR: alert, oriented X 3, normal speechSkin: dry, intact, no rash ResultsFindings/Data:Laboratory Tests: 08/28 08/28 08/28 08/28 1720 1206 0839 0530 Chemistry POC Glucose (70 - 110 MG/DL) 208 H 259 H 146 H Hemoglobin A1c (4.8 - 6.0 %A1C) > 14.0 H 08/28 08/28 08/28 08/27 0530 0529 6407 2328Chemistry Sodium (134 - 147 mEq/L) 137 Potassium (3.4 - 5.0 mEq/L) 4.2 Chloride (100 - 108 mEq/L) 109 H Carbon Dioxide (21 - 33 mEq/L) 23 Anion Gap (0 - 20) 9 BUN (7 - 18 mg/dL) 55 H Creatinine (0.6 - 1.3 mg/dL) 2.6 H Glomerular Filtr Rate (90 - 95) 30.8 L Glucose (70 - 110 mg/dL) 220 H POC Glucose (70 - 110 MG/DL) 200 H 265 H 319 H Calcium (8.0 - 10.5 mg/dL) 8.4 Total Bilirubin (0.0 - 1.0 mg/dL) 0.20 AST (15 - 37 IUnit/L) 24 ALT (30 - 65 IUnit/L) 19 L Total Alk Phosphatase (20 - 125 IUnit/L) 95 Total Protein (6.4 - 8.2 g/dL) 5.9 L Albumin (3.4 - 5.0 g/dL) 3.00 L TSH (0.42 - 5.47) 1.03 Free T4 (0.77 - 1.61 ng/dL) 1.2Hematology WBC (4.5 - 11.0 x10 3/uL) 6.38 RBC (4.00 - 5.60 x10 6/uL) 2.96 L Hgb (12.5 - 16.9 g/dL) 8.3 L Hct (37.5 - 50.7 %) 25.3 L MCV (81.0 - 99.0 fL) 85.5 MCH (27.0 - 33.0 pg) 28.0 MCHC (33.0 - 37.0 g/dL) 32.8 L RDW (11.5 - 14.5 %) 13.0 Plt Count (150 - 400 x10 3/uL) 235 MPV (7.0 - 9.0 fL) 11.0 H Neut % (Auto) (56.0 - 77.0 %) 59.4 Lymph % (Auto) (14.0 - 32.0 %) 28.8 Highland % (Auto) (4.8 - 9.0 %) 9.2 H Eos % (Auto) (0.3 - 3.7 %) 1.9 Baso % (Auto) (0.0 - 2.0 %) 0.2 Neut # (Auto) (2.0 - 7.6 x10 3/uL) 3.79 Lymph # (Auto) (1.0 - 3.8 x10 3/uL) 1.84 Highland # (Auto) (0.1 - 0.8 x10 3/uL) 0.59 Eos # (Auto) (0.0 - 0.2 x10 3/uL) 0.12 Baso # (Auto) (0.0 - 0.2 x10 3/uL) 0.01 Abs Immat Gran (auto) (0.00 - 0.03 x10 3/uL) 0.03 Add Manual Diff NO Immature Gran % (0.0 - 2.0 %) 0.5 Nucleated RBC % (0 - 0 %) 0.0 Nucleated RBCs # (Man) (0.0 - 0.1 x10 3/uL) 0.00 08/27 2049 Chemistry POC Glucose (70 - 110 MG/DL) 436 H Diagnosis, Assessment PlanFree Text A P:1.DM IIHHNK-resolved adjust Lantus adjust Humalog monitor glucose diabetic diet diabetic teaching DC Plan: Lantus and Humalog, follow up in clinic at the next available appointment 2.CKD stage 3IV hydration Thank you for the kind consult. at 2122 RPT #:[id number] OF [id number]:46:00G.[id number] for patient wwzxYBOIXJMMRTJTUT8286-10-49H61:22:39 [facility] 2020-08-28 13:46:00 [id number]:46:00 H [facility] ([facility])Endocrinology ConsultationREPORT#:[id number] REPORT STATUS: SignedDATE:08/28/20 TIME: 1346 PATIENT: DUSTY FRANCOIS UNIT #: [id number]#: [id number] [address]DOB: [birth year] AGE: 60 SEX: M ATTEND: ElkeKyung MDA AUTHOR: Philippe Cristobal * ALL edits or amendments must be made on the electronic/computer document * History of Present IllnessRequesting Clinician: for consult:DM Uncontrolled Chief complaint:Hyperglycemia Dehydration AKIHPI:This is a 60-year-old male with a history of CVA, myocardial infarction with PCI, insulin-dependent diabetes, hypertension, and hyperlipidemia, came to the Emergency Room with low blood pressure. He said when he checked the blood sugar, it was 77. He admits he missed his insulin for2 days with blood sugar was more than 600 on presentation. He denies any chest pain or palpitation or short of breath. Denies any abdominal pain, nausea, or vomiting. Denies dysuria, frequency, or extremity edema. The patient was evaluated in the Emergency Room. He has hyperglycemia with initial blood sugar of 87, dehydration and acute kidney injuries, admitted for further management. Consulted for uncontrolled DM. Patient is a type II diabetic.He does follow witha PCP . He takes Levemir 22 units AM and bedtime, with Novolog 12 units he takes with breakfast and bedtime. He ran out of his insulin on 08/23, his PCP did call in a refill for his insulin be never got around to picking it up from the pharmacy. He does not follow a diabetic diet and does not check his blood sugar. Glucose 877 on arrival. HgbA1c >14. History - Adult longitudinalPast medical history:Reports: Diabetes mellitus, Kidney disease/stones (Chronic kidney disease), Prior [place]. Additional medical history:gastroparesis, CVAAdditional surgical history:Toe amputation, x2 cardiac stentsAdditional family history:Brother and Father CADAlcohol use: Denies EtOH useDrug use: Denies recreational drugsSmoking status for patients 13 years old or older: Never SmokerAllergies:Coded Allergies:No Known Allergies (08/27/20) Review of SystemsConstitutional:Denies: fever. Skin:Denies: rash. Eyes:Denies: visual loss/blurred. ENT:Denies: nasal congestion, sore throat. Respiratory:Denies: SOB. Cardiovascular:Denies: chest pain. GI:Denies: abdominal pain. :Denies: dysuria. Musculoskeletal:Denies: extremity pain. Endocrine:Denies: cold intolerance, heat intolerance, polydipsia, polyphagia, polyuria, weight gain, weight loss, other. Neuro:Denies: confusion, dizziness, headache. ObjectiveVS/I O:Last Documented: Result Date Time Pulse Ox 100 08/28 730 B/P 153/88 08/28 730 B/P Mean 109 08/28 730 O2 Delivery Room air 08/28 730 Temp 98.1 08/28 730 Pulse 77 08/28 730 Resp 18 08/28 730 24 hour I O ending at 0700: 08/28 1900 Intake Total Output Total Balance Patient 89.9 kg Weight Weight Bed scale Measurement Method Patient Weight Weight (lb): Weight (oz): Weight (kg): 89.900 General appearance: alert, awake, orientedHead/Eyes: atraumatic, normocephalicENT: normal ear left, normal ear right, normal noseNeck: non-tender, suppleCardiovascular: regular rate rhythm, normal heart soundsRespiratory: no distressAbdomen: soft, non-tenderGenitourinary: not indicatedExtremities: moves allMusculoskeletal: normal inspectionNeuro/VACUUM FILTER OPERATOR: alert, oriented X 3, normal speechSkin: dry, intact, no rash ResultsFindings/Data:Laboratory Tests: 08/28 08/28 08/28 08/28 1720 1206 0839 0530 Chemistry POC Glucose (70 - 110 MG/DL) 208 H 259 H 146 H Hemoglobin A1c (4.8 - 6.0 %A1C) > 14.0 H 08/28 08/28 08/28 08/27 0530 0520 0201 2328Chemistry Sodium (134 - 147 mEq/L) 137 Potassium (3.4 - 5.0 mEq/L) 4.2 Chloride (100 - 108 mEq/L) 109 H Carbon Dioxide (21 - 33 mEq/L) 23 Anion Gap (0 - 20) 9 BUN (7 - 18 mg/dL) 55 H Creatinine (0.6 - 1.3 mg/dL) 2.6 H Glomerular Filtr Rate (90 - 95) 30.8 L Glucose (70 - 110 mg/dL) 220 H POC Glucose (70 - 110 MG/DL) 200 H 265 H 319 H Calcium (8.0 - 10.5 mg/dL) 8.4 Total Bilirubin (0.0 - 1.0 mg/dL) 0.20 AST (15 - 37 IUnit/L) 24 ALT (30 - 65 IUnit/L) 19 L Total Alk Phosphatase (20 - 125 IUnit/L) 95 Total Protein (6.4 - 8.2 g/dL) 5.9 L Albumin (3.4 - 5.0 g/dL) 3.00 L TSH (0.42 - 5.47) 1.03 Free T4 (0.77 - 1.61 ng/dL) 1.2Hematology WBC (4.5 - 11.0 x10 3/uL) 6.38 RBC (4.00 - 5.60 x10 6/uL) 2.96 L Hgb (12.5 - 16.9 g/dL) 8.3 L Hct (37.5 - 50.7 %) 25.3 L MCV (81.0 - 99.0 fL) 85.5 MCH (27.0 - 33.0 pg) 28.0 MCHC (33.0 - 37.0 g/dL) 32.8 L RDW (11.5 - 14.5 %) 13.0 Plt Count (150 - 400 x10 3/uL) 235 MPV (7.0 - 9.0 fL) 11.0 H Neut % (Auto) (56.0 - 77.0 %) 59.4 Lymph % (Auto) (14.0 - 32.0 %) 28.8 Highland % (Auto) (4.8 - 9.0 %) 9.2 H Eos % (Auto) (0.3 - 3.7 %) 1.9 Baso % (Auto) (0.0 - 2.0 %) 0.2 Neut # (Auto) (2.0 - 7.6 x10 3/uL) 3.79 Lymph # (Auto) (1.0 - 3.8 x10 3/uL) 1.84 Highland # (Auto) (0.1 - 0.8 x10 3/uL) 0.59 Eos # (Auto) (0.0 - 0.2 x10 3/uL) 0.12 Baso # (Auto) (0.0 - 0.2 x10 3/uL) 0.01 Abs Immat Gran (auto) (0.00 - 0.03 x10 3/uL) 0.03 Add Manual Diff NO Immature Gran % (0.0 - 2.0 %) 0.5 Nucleated RBC % (0 - 0 %) 0.0 Nucleated RBCs # (Man) (0.0 - 0.1 x10 3/uL) 0.00 08/27 2049 Chemistry POC Glucose (70 - 110 MG/DL) 436 H Diagnosis, Assessment PlanFree Text A P:1.DM IIHHNK-resolved adjust Lantus adjust Humalog monitor glucose diabetic diet diabetic teaching DC Plan: Lantus and Humalog, follow up in clinic at the next available appointment 2.CKD stage 3IV hydration Thank you for the kind consult. at 2122 at 1331 RPT #:[id number] OF [id number]:46:00G.[id number] for patient rmtoTAKXGHKCPNZBVS3942-50-51W41:32:11 [facility] 2020-08-28 12:17:00 [id number]:17:00 [facility] Prog. NoteREPORT#:[id number] REPORT STATUS: SignedDATE:08/28/20 TIME: 1217 PATIENT: DUSTY FRANCOIS UNIT #: [id number]#: [id number] [address] [birth year] AGE: 60 SEX: M ATTEND: Kyung Bedoya MDA AUTHOR: Kyung Bedoya MD * ALL edits or amendments must be made on the electronic/computer document * SubjectiveChief Complaint:FEELING MUCH BETTER BS IMPROVED BP IMPROVED Review of SystemsConstitutional:Reports: generalized weakness. Skin:Denies: abrasion, bruising, contusion, diaphoresis, ecchymosis, itching, laceration, rash, swelling, other. Allergy/Immun:Denies: allergic reaction, anaphylaxis, hives, itching, rhinorrhea, sneezing, other. ENT:Denies: ear drainage, ear ringing, earache, hearing loss, mouth pain, nasal congestion, nose bleeding, sinus problem, sore throat, throat pain, throat swelling, tongue pain, tongue swelling, toothache, voice change, other. Respiratory:Denies: SORIANO (dyspnea on exertion). Cardiovascular:Denies: chest pain, SORIANO (dyspnea on exertion), edema, orthopnea, palpitations, parox nocturnal dyspnea, other. :Denies: dysuria, flank pain, frequency, hematuria, nocturia, penile discharge, penile lesion, testicular pain, testicular swelling, urgency, urinary retention,other. Neuro:Reports: weakness. Objective GeneralVS/I O:Vital Signs Date Temp Pulse Resp B/P B/P Mean Pulse Ox FiO2 08/27-08/28 98.7-98.8 60-108 16-18 109-143/58-79 75-98 98-100 Last Documented: Result Date Time Pulse Ox 99 08/28 400 B/P 143/76 08/28 0400 B/P Mean 98 08/28 0400 O2 Delivery Room air 08/28 400 Temp 98.8 08/28 0400 Pulse 90 08/28 0400 Resp 18 08/28 0400 24 hour I O ending at 0700: 08/28 0700 08/27 1900 Intake Total Output Total Balance Patient 89.9 kg Weight Weight Bed scale Measurement Method Patient Weight Weight (lb): Weight (oz): Weight (kg): 89.900 Medications:Active Meds + DC'd Last 24 HrsAtorvastatin Calcium 80 MG 2100 PO Aspirin 81 MG DAILY PO Insulin Glargine 15 UNIT DAILY SUBQ Polyethylene Glycol 17 GM DAILY PO Insulin Glargine 26 UNIT BEDTIME SUBQ Insulin Human Lispro 0 AC HS SUBQ (DC) Insulin Human Lispro 0 Q4H SUBQ Metoprolol Succinate 25 MG BID PO Tamsulosin HCl 0.4 MG BEDTIME PO Ticagrelor 90 MG BID PO Dextrose/Water 25 ML ASDIR PRN IV Dextrose/Water 50 ML ASDIR PRN IV Glucagon 1 MG ASDIR PRN IM Insulin Human Lispro 20 UNIT X1ED STA SUBQ (DC) Furosemide 40 MG BID PRN PO Insulin Glargine 10 UNIT Q12HR SUBQ (DC) Insulin Human Lispro 15 UNIT X1ED STA SUBQ (DC) Acetaminophen 650 MG Q4H PRN PRN PO Ondansetron HCl 4 MG Q6H PRN PRN IV Sodium Chloride 1,000 ML .Q10H IV Albuterol Sulfate 15 MG X1ED STA NEB (DC) Insulin Human Regular 10 UNITS X1ED STA IV (DC) Sodium Chloride 2,000 ML X1ED STA IV (DC) Sodium Chloride 0 ASDIR PRN IV (DC) Nutrition assessment:The data set between the solid lines has been imported from the dietitian's assessment. Any exceptions have been noted under Provider comments. BMI Calculated: 27.6 Nutrition related diagnosis: Nutrition diagnosis details: Nutrition problem: Nutrition etiology: Nutrition signs and symptoms: Nutrition prescription: Dietitian name: Assessment completed: Provider comments on imported dietitian assessment: Physical ExamGeneral appearance: alert, awake, orientedHead/Eyes: atraumatic, EOMIENT: moist mucosal membranesNeck: full range of motion, non-tender, normal thyroidCardiovascular: normal capillary refill, normal heart soundsRespiratory: aerating well, clear to auscultationAbdomen: non-tender, normal bowel sounds ResultsFindings/Data:Laboratory Tests 08/28/20 0530:[Embedded Image Not Available] 08/27/20 1743:[Embedded Image Not Available]Laboratory Tests 08/28 08/28 08/28 08/28 08/28 1206 0839 0530 0530 0520Chemistry Sodium (134 - 147 mEq/L) 137 Potassium (3.4 - 5.0 mEq/L) 4.2 Chloride (100 - 108 mEq/L) 109 H Carbon Dioxide (21 - 33 mEq/L) 23 Anion Gap (0 - 20) 9 BUN (7 - 18 mg/dL) 55 H Creatinine (0.6 - 1.3 mg/dL) 2.6 H Glomerular Filtr Rate (90 - 95) 30.8 L Glucose (70 - 110 mg/dL) 220 H POC Glucose (70 - 110 MG/DL) 259 H 146 H 200 H Hemoglobin A1c (4.8 - 6.0 %A1C) > 14.0 H Calcium (8.0 - 10.5 mg/dL) 8.4 Total Bilirubin (0.0 - 1.0 mg/dL) 0.20 AST (15 - 37 IUnit/L) 24 ALT (30 - 65 IUnit/L) 19 L Total Alk Phosphatase (20 - 125 95IUnit/L) Total Protein (6.4 - 8.2 g/dL) 5.9 L Albumin (3.4 - 5.0 g/dL) 3.00 L TSH (0.42 - 5.47) 1.03 Free T4 (0.77 - 1.61 ng/dL) 1.2 08/28 08/27 08/27 08/27 08/27 0201 2328 2049 1912 1743 Chemistry Sodium (134 - 147 mEq/L) 128 L Potassium (3.4 - 5.0 mEq/L) 3.9 Chloride (100 - 108 mEq/L) 102 Carbon Dioxide (21 - 33 mEq/L) 20 L Anion Gap (0 - 20) 10 BUN (7 - 18 mg/dL) 59 H Creatinine (0.6 - 1.3 mg/dL) 3.2 H Glomerular Filtr Rate (90 - 95) 24.3 L Glucose (70 - 110 mg/dL) 638 *H POC Glucose (70 - 110 MG/DL) 265 H 319 H 436 H 482 H Calcium (8.0 - 10.5 mg/dL) 7.8 L 08/27 08/27 1509 1319 Chemistry POC Glucose (70 - 110 MG/DL) > 600 H Lactic Acid (0.4 - 1.9 mmol/l) 1.6 Laboratory Tests 08/28 05 Hematology WBC (4.5 - 11.0 x10 3/uL) 6.38 RBC (4.00 - 5.60 x10 6/uL) 2.96 L Hgb (12.5 - 16.9 g/dL) 8.3 L Hct (37.5 - 50.7 %) 25.3 L MCV (81.0 - 99.0 fL) 85.5 MCH (27.0 - 33.0 pg) 28.0 MCHC (33.0 - 37.0 g/dL) 32.8 L RDW (11.5 - 14.5 %) 13.0 Plt Count (150 - 400 x10 3/uL) 235 MPV (7.0 - 9.0 fL) 11.0 H Neut % (Auto) (56.0 - 77.0 %) 59.4 Lymph % (Auto) (14.0 - 32.0 %) 28.8 Highland % (Auto) (4.8 - 9.0 %) 9.2 H Eos % (Auto) (0.3 - 3.7 %) 1.9 Baso % (Auto) (0.0 - 2.0 %) 0.2 Neut # (Auto) (2.0 - 7.6 x10 3/uL) 3.79 Lymph # (Auto) (1.0 - 3.8 x10 3/uL) 1.84 Highland # (Auto) (0.1 - 0.8 x10 3/uL) 0.59 Eos # (Auto) (0.0 - 0.2 x10 3/uL) 0.12 Baso # (Auto) (0.0 - 0.2 x10 3/uL) 0.01 Abs Immat Gran (auto) (0.00 - 0.03 x10 3/uL) 0.03 Add Manual Diff NO Immature Gran % (0.0 - 2.0 %) 0.5 Nucleated RBC % (0 - 0 %) 0.0 Nucleated RBCs # (Man) (0.0 - 0.1 x10 3/uL) 0.00 Diagnosis, Assessment PlanOrders: Procedure Date/time Status COMPREHENSIVE METABOLIC PANEL 08/28 600 Complete CBC W/AUTO DIFF 08/28 600 Complete TSH 08/28 530 Complete T4 FREE 08/28 530 Complete Consultants: endocrinologyCode status: full codePlan discussed with: patient, spouse/partner, consultants, nurse Free Text DxA P NotesFree text DxA P notes:1. HYPEROSMOLAR HYPERGLYCEMIC STATE -IMPROVING 2.HYPERKALEMIA -CORRECTED 3.BRENDA ON CKD STGE 3 - BASE LINE CREATININE 2.1 -CONTINUE HYDRATIN 4.UNCONTROLED DM- DUE TO NONCOMPLIANCE 5.CAD WITH PCI -ON ASA ,BRILANTA 6.HTN -NOW IMPROVED 7.MEDICAL NONCOMPLIANCE - COUNSELLED at 1229 RPT #:[id number] OF REPORTPRProgress [id number]:17:00G.[id number] le for patient lfojPLZVSXZYFUJOVZ4891-35-21S67:30:05 [facility] 2020-08-27 17:28:00 [id number]:28:0010 [id number] [place] [address] PATIENT NAME: DUSTY FRANCOIS ADMIT DATE: 08/27/20ACCOUNT NO: [id number] ROOM NO: [id number] AGE: 60 REPORT TYPE: HISTORY AND PHYSICAL SEX: M ADMITTING PHYSICIAN:Kyung Bedoya MD ATTENDING PHYSICIAN:Kyung Bedoya MD ADMISSION DATE: 08/27/2020 CHIEF COMPLAINT: "My blood pressure was low at home. HISTORY OF PRESENTING ILLNESS: This is a 60-year-old male with a history ofCVA, myocardial infarction with PCI, insulin-dependent diabetes, hypertension,and hyperlipidemia, came to the Emergency Room with low blood pressure. He saidwhen he checked the blood sugar, it was 77. He admits he missed his insulin for2 days with blood sugar was more than 600 on presentation. He denies any chestpain or palpitation or short of breath. Denies any abdominal pain, nausea, orvomiting. Denies dysuria, frequency, or extremity edema. The patient wasevaluated in the Emergency Room. He has hyperglycemia with initial blood sugarof 87, dehydration and acute kidney injuries, admitted for further management. PAST MEDICAL HISTORY: Hypertension, hyperlipidemia, coronary artery disease,diabetes mellitus, history of stroke, and chronic kidney disease. PAST SURGICAL HISTORY: Cardiac stent, PCI to LAD, vein ablation. HOME MEDICATIONS: Reviewed. ALLERGIES: NO KNOWN ALLERGIES. SOCIAL HISTORY: Denies smoking, alcohol, or illicit drug use. FAMILY HISTORY: Not relevant to current illness. SYSTEM REVIEW: A 14-point comprehensive systems review was done, apart fromsymptoms mentioned in the history of presenting illness, otherwise negative. PHYSICAL EXAMINATION:VITAL SIGNS: Temperature 98.4, pulse is 70, and blood pressure 129/63.GENERAL: This is a middle-aged male, in no acute cardiorespiratory distress. Afebrile.HEENT: Pupils equally reactive.NECK: Supple.CARDIOVASCULAR: S1 and S2 regular.RESPIRATORY: Bilaterally good air entry.ABDOMEN: Soft and nontender.EXTREMITIES: No edema.CENTRAL NERVOUS SYSTEM: Alert, awake, and oriented to time, place, and person. LABORATORY DATA AND DIAGNOSTIC STUDIES: Chest x-ray, no acute pathology. WBC PATIENT NAME: DUSTY FRANCOIS is 6.65, hemoglobin 9.8, hematocrit 31.5, and platelets 280. Lactic acidinitially is 2.7. Repeat lactic acid 1.6. Troponins negative. Sodium is 118,potassium 3.5, chloride 89, BUN 70, and creatinine 3.5. ASSESSMENT:1. Hyperglycemia due to missed insulin.2. Pseudohyponatremia.3. Hyperkalemia.4. Jpbjb-bk-kauaswn kidney disease.5. Coronary artery disease with percutaneous coronary intervention.6. History of cerebrovascular accident with percutaneous coronary intervention. PLAN OF MANAGEMENT: Admit. Consult zinc miner blasting. Start the patient onLantus and sliding scale. Continue to hydrate with normal saline. Repeat thelabs stat and evaluate. Follow the sodium, BUN, creatinine and potassium. Ifthere is no improvement, we will consider nephrology evaluation for coronaryartery disease. We will continue aspirin, Brilinta, metoprolol. DVT and GIprophylaxis. Dictated By: Kyung Bedoya MD WT: HP:LELIA/JAVAD/NTSDD: 08/27/2020 17:28:57DT: 08/27/2020 22:21:09Conf#: [id number]/DID#: [id number] by Kyung Bedoya MD On 08/28/2020 10:19:45 PM at 2220 PATIENT NAME: DUSTY FRANCOIS and physical ieeoqwcaeta0554-23-04L64:21:00G.[id number] vailable for patient xorqDDDGXMOMQPMYCE4451-18-72S74:20:07 [facility] 2020-08-27 15:33:00 [id number]:33:00 [facility] PROVID[facility] REPORTREPORT#:[id number] REPORT STATUS: SignedDATE:08/27/20 TIME: 1533 PATIENT: DUSTY FRANCOIS UNIT #: [id number]#: [id number] [address] 60 SEX: M PCP PHYS: Shawanda Wild DOSERVICE AUTHOR: Bob Samuels DO * ALL edits or amendments must be made on the electronic/computer document * HPI-General Illness Free Text HPI NotesFree Text HPI NotesChief complaint of hypertension at home systolic blood blood pressure as low as 77.Reports he has been out of his Levemir insulin for 2 days. Also reports shortness of breath and fatigue.Past medical history of CVA, [place] with stents, hypertension, insulin-dependent diabetes, vein ablation for varicose veins.PCP is Dr. Baker fever, sore throat, blurry vision, cough, chest pain, abdominal pain, flank pain, dysuria, neck or back pain, headache or dizziness, bruising or bleeding, weight gain or weight loss, depression, anxiety, suicidal ideations. GeneralInitial Greet Date/Time 08/27/20 1028 PresentationChief Complaint low blood pressure and fatigue Review of Systems ROS StatementsAll systems rev neg except as marked. Past Medical History - AdultStated Complaint HYPERGLYCEMIA,DEHYDRATION,BRENDA,HYPERKALEMIA,LACTI..A llergiesCoded Allergies:No Known Allergies (08/27/20) Home MedicationsActive ScriptsTICAGRELOR (BRILINTA) 90 MG PO BID TICAGRELOR (BRILINTA) 90 MG PO BID #180 TAB Ref 4 Prov: 06/13/19ASPIRIN 81 MG PO DAILY ASPIRIN 81 MG PO DAILY #90 TAB Ref 4 Prov: 06/13/19 Reported MedicationsMETOPROLOL SUCC XL (TOPROL XL) 25 MG PO BID INSULIN DETEMIR (LEVEMIR) 10 UNITS SUBQ Q12HR FUROSEMIDE (LASIX) 40 MG PO BID PRN EDEMA ATORVASTATIN (LIPITOR) 80 MG PO DAILY TAMSULOSIN ER (FLOMAX) 0.4 MG PO BEDTIME INSULIN LISPRO PROTAM/INSULIN LISPRO (HumaLOG Mix 50/50 KWIKPEN (15mL)) 0 UNITS SUBQ BID POLYETHYLENE GLYCOL 3350 (MIRALAX) 17 GM PO DAILY CHOLECALCIFEROL (VITAMIN D3) (VITAMIN D3) 50,000 UNIT PO Q7D [repatha] Calculated suicide risk level: No riskPast Medical History:Reports: Diabetes mellitus, Kidney disease/stones (Chronic kidney disease), Prior [place]. Additional Medical Historygastroparesis, CVAAdditional Surgical HistoryToe amputation, x2 cardiac stentsAdditional Family HistoryBrother and Father CADAlcohol Use Denies EtOH useDrug Use Denies recreational drugsSmoking status for patients 13 years old or older: Never Smoker Physical Exam Vital SignsVital SignsFirst Documented: Result Date Time Pulse Ox 100 08/27 1032 B/P 149/96 08/27 1032 B/P Mean 113 08/27 1032 O2 Delivery Room air 08/27 1032 Temp 36.9 08/27 1032 Pulse 102 08/27 1032 Resp 16 08/27 1032 Last Documented: Result Date Time Pulse Ox 100 08/27 1300 B/P 137/79 08/27 1300 B/P Mean 98 08/27 1300 O2 Delivery Room air 08/27 1300 Pulse 72 08/27 1300 Resp 16 08/27 1300 Temp 36.9 08/27 1032 Review of Vital Signs Reviewed Free Text PE NotesFree Text PE NotesGeneral/Const - Awake, alert, no acute distress, well nourishedMS Head - Atraumatic, normocephalicEyes - No redness or swelling. EOMI. No vision deficitsEars/Nose/Throat - Airway patent, dry mucous membranes. Nose NL. Pharynx NL.MS Neck - Supple, Full ROM, no tenderness, no JVD, no adenopathyResp/Chest - Breath sounds NL and equal bilat. No respiratory distress, Cardiovascular - Heart rate NL, Regular rhythm, Heart sounds NL, Peripheral circulation NLAbdomen - Abdomen is soft, nontender, nondistended. No guarding or rebound. Active bowel soundsSkin - Skin Color NL, No rash, Warm, Dry, IntactNeurologic - Neurologic Oriented X3, Speech NL, No motor deficits, No sensory deficits. CN II-XII NL. Interpretation Diagnostics Lab Results InterpretationResultsLaboratory Tests 08/27/20 1045:[Embedded Image Not Available]Laboratory Tests: 08/27 08/27 08/27 08/27 08/27 1319 1100 1100 1045 1045Chemistry Lactic Acid (0.4 - 1.9 mmol/l) 1.6 2.7 H Troponin I (0.000 - 0.045 ng/mL) 0.008Urines Urine Color (YEL/STRAW) COLORLESS Urine Appearance (CLEAR) CLEAR Urine pH (5.0 - 7.0) 5.0 Ur Specific Center Line (1.005 - 1.030) 1.018 Urine Protein (NEGATIVE) NEGATIVE Urine Glucose (UA) (NEGATIVE) 3+ H Urine Ketones (NEGATIVE) NEGATIVE Urine Blood (NEGATIVE) 1+ H Urine Nitrite (NEGATIVE) NEGATIVE Urine Bilirubin (NEGATIVE) NEGATIVE Urine Urobilinogen (0.2 - 1.0 mg/dL) 0.2 Ur Leukocyte Esterase (NEGATIVE) NEGATIVE Urine RBC (0 - 3 RBC/HPF) 0-3 Urine WBC (0 - 3 WBC/HPF) 0-3 Ur Squamous Epith Cells (NONE SEEN 0-5/HPF) Urine Bacteria (NONE SEEN /HPF) NONE SEEN Urine Osmolality (300 - 1000 MOS/KG) 467 08/27 1045 Chemistry Sodium (134 - 147 mEq/L) 118 *L Potassium (3.4 - 5.0 mEq/L) 6.5 *H Chloride (100 - 108 mEq/L) 89 L Carbon Dioxide (21 - 33 mEq/L) 22 Anion Gap (0 - 20) 14 BUN (7 - 18 mg/dL) 70 H Creatinine (0.6 - 1.3 mg/dL) 3.5 H Glomerular Filtr Rate (90 - 95) 21.9 L Glucose (70 - 110 mg/dL) 877 *H Calcium (8.0 - 10.5 mg/dL) 9.0 Total Bilirubin (0.0 - 1.0 mg/dL) 0.40 Direct Bilirubin (0.0 - 0.30 MG/DL) < 0.10 Indirect Bilirubin (MG/DL) 0.30 AST (15 - 37 IUnit/L) 27 ALT (30 - 65 IUnit/L) 23 L Total Alk Phosphatase (20 - 125 IUnit/L) 163 H Total Protein (6.4 - 8.2 g/dL) 6.6 Albumin (3.4 - 5.0 g/dL) 3.50 Lipase (13 - 57 U/L) 32 Coagulation INR (0.8 - 1.2) 0.9 PTT (Abiola) (25.0 - 39.5 Seconds) 26.6 PT Patient/Control Mix (9.3 - 12.9 SECONDS) 10.1 Hematology WBC (4.5 - 11.0 x10 3/uL) 6.65 RBC (4.00 - 5.60 x10 6/uL) 3.58 L Hgb (12.5 - 16.9 g/dL) 9.8 L Hct (37.5 - 50.7 %) 31.5 L MCV (81.0 - 99.0 fL) 88.0 MCH (27.0 - 33.0 pg) 27.4 MCHC (33.0 - 37.0 g/dL) 31.1 L RDW (11.5 - 14.5 %) 12.7 Plt Count (150 - 400 x10 3/uL) 280 MPV (7.0 - 9.0 fL) 11.6 H Neut % (Auto) (56.0 - 77.0 %) 68.2 Lymph % (Auto) (14.0 - 32.0 %) 20.3 [place] % (Auto) (4.8 - 9.0 %) 8.9 Eos % (Auto) (0.3 - 3.7 %) 2.0 Baso % (Auto) (0.0 - 2.0 %) 0.3 Neut # (Auto) (2.0 - 7.6 x10 3/uL) 4.54 Lymph # (Auto) (1.0 - 3.8 x10 3/uL) 1.35 Highland # (Auto) (0.1 - 0.8 x10 3/uL) 0.59 Eos # (Auto) (0.0 - 0.2 x10 3/uL) 0.13 Baso # (Auto) (0.0 - 0.2 x10 3/uL) 0.02 Abs Immat Gran (auto) (0.00 - 0.03 x10 3/uL) 0.02 Add Manual Diff NO Immature Gran % (0.0 - 2.0 %) 0.3 Nucleated RBC % (0 - 0 %) 0.0 Nucleated RBCs # (Man) (0.0 - 0.1 x10 3/uL) 0.00 Microbiology: Date/Time Procedure - Status Source Growth 08/27 1130 Blood Culture - RECD BLOOD 08/27 1045 Blood Culture - RECD BLOOD 08/27 1029 MRSA DNA Surveillance Screen - ORD NASAL Recent Impressions:RADIOLOGY - XR CHEST 1 V 08/27 1102 Report Impression - Status: SIGNED Entered: 08/27/2020 1119 IMPRESSION: No evidence of acute cardiopulmonary disease.Impression By: Go Quezada M.D. Lab Imaging StatementLaboratory radiographic studies reviewed and considered in the medical decision-making. Point of Care TestingPulse Oximetry Pulse Ox % 96 On: Room air Interpretation Interpreted by tn ECG #1 InterpretationText/Dict NoteTime 10:37 AMSinus tach, rate 102, no STEMI, normal axis normal intervals normal ST segments,no T wave inversions Re-Evaluation MDM Re-Evaluation/Progress #1Text/Dict NotePatient was reassessed and is feeling better. Discussed lab results and diagnosis with pt and need for admission. Pt needs admission for hyperglycemia, dehydration, hyperkalemia without EKG changes. Troponin EKG negative for ischemia. Patient received IV fluids, IV insulin and albuterol to correct hyperkalemia. Pt agrees with plan. Dr. Costa was notified. all questions were answered. Pt is in stable condition for admission to the IMUTime of Re-Eval 1420Re-Eval Status Improved ED CourseMedication(s) OrderedMedication(s) Ordered:Anti-Infective Agents Sig/Jean Carlos Start time Last Medication Dose Route Stop Time Status Admin Ceftriaxone Sodium 1,000 MG X1ED STA 08/27 1029 DC Sodium Chloride 10 ML IV 08/27 1031 Autonomic Drugs Sig/Jean Carlos Start time Last Medication Dose Route Stop Time Status Admin Albuterol Sulfate 15 MG X1ED STA 08/27 1252 DC 08/27 NEB 08/27 1253 1533 Central Nervous System Agents Sig/Jean Carlos Start time Last Medication Dose Route Stop Time Status Admin Acetaminophen 650 MG Q4H PRN PRN 08/27 1330 AC PO 08/28 1227 Electrolytic, Caloric, And Alex Sig/Jean Carlos Start time Last Medication Dose Route Stop Time Status Admin Sodium Chloride 1,000 ML .Q10H 08/27 1330 AC IV 08/28 1227 Sodium Chloride 2,000 ML X1ED STA 08/27 1251 DC 08/27 IV 08/27 1252 1315 Sodium Chloride 0 ASDIR PRN 08/27 1030 AC IV 08/28 0928 Sodium Chloride 1,000 ML X1ED STA 08/27 1028 DC 08/27 IV 08/27 1127 1129 Gastrointestinal Drugs Sig/Jean Carlos Start time Last Medication Dose Route Stop Time Status Admin Ondansetron HCl 4 MG Q6H PRN PRN 08/27 1330 AC IV 08/28 1227 Hormones And Synthetic Substit Sig/Jean Carlos Start time Last Medication Dose Route Stop Time Status Admin Insulin Human Regular 10 UNITS X1ED STA 08/27 1252 DC 08/27 IV 08/27 1253 1315 Patient Discharge Departure Vital Signs/ConditionVital SignsFirst Documented: Result Date Time Pulse Ox 100 08/27 1032 B/P 149/96 08/27 1032 B/P Mean 113 08/27 1032 O2 Delivery Room air 08/27 1032 Temp 36.9 08/27 1032 Pulse 102 08/27 1032 Resp 16 08/27 1032 Last Documented: Result Date Time Pulse Ox 100 08/27 1300 B/P 137/79 08/27 1300 B/P Mean 98 08/27 1300 O2 Delivery Room air 08/27 1300 Pulse 72 08/27 1300 Resp 16 08/27 1300 Temp 36.9 08/27 1032 All vital signs available at the time of this entry have been reviewed. Condition Guarded Clinical ImpressionClinical ImpressionPrimary Impression: HyperglycemiaSecondary Impressions: Dehydration, Hyponatremia, Noncompliance with medication regimen Disposition DecisionAdmit Admit Physician Name Kyung Bedoya MD Admit Physician Hospitalist Request Time 1330 Request Date 08/27/20 )( Admission Accepts Yes )( Accepted Time 1330 )( Accepted Date 08/27/20 Call Information will see patient Discharge/Care PlanCounseled Regarding Diagnosis, Lab results, Imaging studies, Need for admissionReferralsPeck-JosiasblakeShawanda Kinga ELDER (PCP/Family) Admit NoteI have spoken with the patient and/or caregivers. I have explained the patient'scondition, diagnoses and treatment plan based on the information available to meat this time. I have answered the patient's and/or caregiver's questions and addressed any concerns. The patient and/or caregivers have as good an understanding of the patient's diagnosis, condition and treatment plan as can beexpected at this point. The patient has been stabilized within the capability ofthe emergency department. The patient will be transported for further care and management or will be moved to an observation or inpatient service. I have communicated with the staff or medical practitioner taking over this patient's care. Critical CareTime Spent (minutes): 40 CC Note 2The high probability of sudden, clinically significant deterioration in the patient's condition required the highest level of my preparedness to intervene urgently. The services I provided to this patient were to treat and/or prevent clinically significant deterioration that could result in severe disability or . Services included the following: chart data review, reviewing nursing notes and/or old charts, documentation time, remediation bioanalytics consultant collaboration regarding findings and treatment options, medication orders and management, direct patient care, re-evaluations, vital sign assessments and ordering, interpreting and reviewing diagnostic studies/lab tests. Aggregate critical care time was [40] minutes, which includes only time during which I was engaged in work directly related to the patient's care, as describedabove, whether at the bedside or elsewhere in the Emergency Department. at 1540RPT #:[id number] OF REPORTEDEmerdallas county medical center department [id number]:33:00G.[id number] able for patient onhwNSAWTJIBCRJPBM6969-30-91U58:41:05 [facility] 2020-08-27 15:25:00 [id number]:25:00 H [facility] ([facility])Clinical NoteREPORT#:[id number] REPORT STATUS: SignedDATE:08/27/20 TIME: 1525 PATIENT: DUSTY FRANCOIS UNIT #: [id number]#: [id number] [address] AGE: 60 SEX: M ATTEND: Kyung Bedoya [facility] AUTHOR: Kyung Bedoya MD * ALL edits or amendments must be made on the electronic/computer document * Clinical NoteNote:SEEN AND EXAMINED H/P DICTATED at 1525 RPT #:[id number] OF REPORTCLClinical [id number]:25:00G.[id number] le for patient nvgxAOAHLOUUNVAHWF0292-89-17U42:25:42 [facility] 2020-05-01 16:52:00 [id number]:52:0006 -[address] [address] PATIENT NAME: DUSTY FRANCOIS ADMIT DATE: 04/30/20ACCOUNT NO: [id number] ROOM NO: [facility] AGE: 59 REPORT TYPE: eECHOCARDIOGRAM REPORT SEX: M ADMITTING PHYSICIAN:Kyung Bedoya MD ATTENDING PHYSICIAN:Kyung Bedoya MD Exam Date: 05/01/2020 13:39:00 Exam Type: Transthoracic Echocardiogram Indication:SHORT OF BREATHRhythm: SinusBP: 158/88HR: 76 Measurements Name Value Normal Range Ao root diameter (MM) 3.4 cm - LA dimension (AP) MM 3.69 cm (1.9 - 4) LA:Ao ratio (MM) 1.08 ratio (Less Than 1.5) AV cusp separation (MM) 2.28 cm - MV EPSS 0.61 cm - Name Value Normal Range RVIDd (AP) 2D 2.85 cm - IVSd (2D) 1.61 cm (0.6 - 1.1) LVPWd (2D) 1.6 cm (0.6 - 1.1) LVIDd (2D) 4.87 cm (3.5 - 5.6) LVIDs (2D) 3.4 cm (2.1 - 4) LV FS (2D) 30.25 % - EF Teichholz (2D) 57.44 % (50 - 90) Name Value Normal Range LA ESV SP 4CH (A/L) 71.16 ml - LA ESV SP 4CH (MOD) 64.34 ml - LV EDV SP 4CH (MOD) 126.78 ml - LV ESV SP 4CH (MOD) 45.21 ml - EF SP 4CH (MOD) 64.34 % - Name Value Normal Range MV E-wave Vmax 0.67 m/sec - MV deceleration time 161.49 msec - MV A-wave Vmax 0.85 m/sec - MV E:A ratio 0.79 ratio - Name Value Normal Range AV Vmax 1.39 m/sec - AV VTI 26.36 cm - PATIENT NAME: DUSTY FRANCOIS FABIO AV peak gradient 7.75 mmHg - AV mean gradient 3.5 mmHg - LVOT diameter 2.07 cm (1.8 - 2.2) LVOT Vmax 1.18 m/sec - LVOT VTI 22.38 cm - LVOT peak gradient 5.61 mmHg - LVOT mean gradient 2.1 mmHg - SV LVOT 74.92 ml - CO LVOT 5.18 l/min - KIMBERLY (continuity Vmax) 2.85 cm2 - KIMBERLY (continuity VTI) 2.84 cm2 - Name Value Normal Range MV PHT 50.13 msec - MVA (PHT) 4.39 cm2 - Name Value Normal Range TR Vmax 1.96 m/sec - TR peak gradient 15.32 mmHg - RAP 10 mmHg - RVSP 25.32 mmHg (15 - 30) Name Value Normal Range PV Vmax 1.03 m/sec - PV peak gradient 4.28 mmHg - RVOT Vmax 0.82 m/sec - RVOT peak gradient 2.71 mmHg - Findings Study Quality:This is a technically adequate examination. Left Ventricle:The left ventricular chamber size is normal. Moderate concentric leftventricular hypertrophy is observed. Global left ventricular wall motionand contractility are within normal limits. The estimated ejectionfraction is 55-60%. The E/A ratio is 0.79. Abnormal left ventriculardiastolic filling is observed, consistent with impaired LV relaxation. Left Atrium:The left atrial chamber size is normal. Right Ventricle:The right ventricular cavity size is normal. Normal right ventricularfunction is observed. Right Atrium:The right atrial cavity size is normal. Aortic Valve:The aortic valve structure is normal. There is no evidence of aorticinsufficiency. Mitral Valve:PATIENT NAME: DUSTY FRANCOIS The mitral valve leaflets appear normal. There is mild mitralregurgitation observed. Tricuspid Valve:The tricuspid valve leaflets are morphologically normal. There is tracetricuspid regurgitation. The RVSP is 25.32 mmHg. Pulmonic Valve:The pulmonic valve appears normal. Pericardium:There is no pericardial effusion. Aorta:The aortic root appears normal. Venous:The inferior vena cava appears normal. Conclusions1. Moderate concentric left ventricular hypertrophy is observed.2. The estimated ejection fraction is 55-60%.3. Abnormal left ventricular diastolic filling is observed, consistentwith impaired LV relaxation.4. Normal right ventricular function is observed.5. There is no evidence of aortic insufficiency.6. There is mild mitral regurgitation observed.7. There is trace tricuspid regurgitation.8. The RVSP is 25.32 mmHg.9. There is no pericardial effusion. at 1656 PATIENT NAME: DUSTY FRANCOIS .[id number] Available for patient [id number]:57:02 [facility] 2020-05-01 15:10:00 [id number]:10:[address] [address] PATIENT NAME: DUSTY FRANCOIS ADMIT DATE: 04/30/20ACCOUNT NO: [id number] ROOM NO: G.5509 AGE: 59 REPORT TYPE: HISTORY AND PHYSICAL SEX: M ADMITTING PHYSICIAN:Kyung Bedoya MD ATTENDING PHYSICIAN:Kyung Bedoya MD ADMISSION DATE: 04/30/2020 PRIMARY CARE PHYSICIAN: Shawanda Wild EDGER HAND: Yvette Rae MD CHIEF COMPLAINT: Short of breath, 2 to 3 days' duration. HISTORY OF PRESENTING ILLNESS: This is a 59-year-old male known to me fromprevious admission with a history of coronary artery disease with PCI, onBrilinta; history of stroke; chronic kidney disease; hypertension; and diabetes,came for short of breath of 3 days' duration. He says he ran out ofhydrochlorothiazide and was taking Lasix as prescribed. Despite of that, he wasfeeling short of breath over the past 3 days. His short of breath increasedduring ambulation. He denies any chest pain, palpitation, diaphoresis, andnear-syncopal episode. No fever. No cough. No sputum. No abdominal pain,nausea, vomiting, dysuria, or extremity swelling. The patient was evaluated in the Emergency Room. EKG, no acute ST changes. D-dimer was elevated. Subsequent V/Q scan shows low probability for pulmonaryembolism. Dialyzed with one dose of Lasix. Currently, back to his usual healthstatus. He is little nervous to ambulate. No COVID-19 or any sick contacts. PAST MEDICAL HISTORY: Diabetes, hypertension, hypercholesterolemia, coronaryartery disease with PCI, history of CVA. PAST SURGICAL HISTORY: PCI to LAD, circumflex. HOME MEDICATIONS: Reviewed. ALLERGIES: NO KNOWN ALLERGIES. SOCIAL HISTORY: Denies smoking, alcohol, or illicit drug use. FAMILY HISTORY: Not relevant to current illness. SYSTEMS REVIEW: Fourteen-point comprehensive systems review was done, apartfrom symptoms mentioned in the history of presenting illness, otherwisenegative. PHYSICAL EXAMINATION:VITAL SIGNS: Temperature 97.9, pulse is 76, blood pressure 145/77.GENERAL: This is a middle-aged male, in no acute distress. Afebrile. PATIENT NAME: DUSTY FRANCOIS HEENT: Pupils equally reactive.NECK: Supple.CARDIOVASCULAR: S1 and S2 regular.RESPIRATORY: Bilaterally good air entry.ABDOMEN: Soft and nontender.EXTREMITIES: No edema.CENTRAL NERVOUS SYSTEM: Alert, awake, and oriented to time, place, and person. LABORATORY DATA AND DIAGNOSTIC STUDIES: WBC 6.37, hemoglobin 9.5, djgzmppyqu78.3, and platelets 272. Troponin 3 sets negative. Chest x-ray, no congestionand no fluid overload. Sodium 138, potassium 5.5, BUN 48, creatinine 2.2. V/Q,low probability for pulmonary embolism. ASSESSMENT:1. Short of breath, etiology unclear. Pulmonary embolism is ruled out. Thereis no clinical evidence of fluid overload. We will continue to monitor. Checkthe echocardiogram. Gently diuresis with Lasix. We will continue isosorbidenow. We will start on DuoNeb nebulization. No evidence of infection currently.2. Coronary artery disease with percutaneous coronary intervention. Thepatient is on Brilinta, we will continue.3. Hyperlipidemia, on statin.4. History of cerebrovascular accident, on Brilinta.5. Diabetes mellitus. We will continue sliding scale. Check HbA1c. Thepatient is on Levemir and Humalog mix. We would continue.6. Deep venous thrombosis and gastrointestinal prophylaxes. Based on furthercardiac intervention and cardiology clearance, make the discharge planning. Dictated By: Kyung Bedoya MD WT: HP:G.RAMON/JAVAD/NTSDD: 05/01/2020 15:10:03DT: 05/01/2020 16:01:39Conf#: [id number]/DID#: [id number] by Kyung Bedoya MD On 05/12/2020 10:21:27 AM at 1021 PATIENT NAME: DUSTY FRANCOIS and physical [id number]:01:00G.[id number] vailable for patient [id number]:22:02 [facility] 2020-05-01 09:27:00 [id number]:27:00 H [facility] ([facility])Cardiology ConsultationREPORT#:[id number] REPORT STATUS: SignedDATE:05/01/20 TIME: 926 PATIENT: DUSTY FRANCOIS UNIT #: [id number]#: [id number] ROOM/BED: 5509-1DOB: [birth year] AGE: 59 SEX: M ATTEND: Kyung Bedoya MDADM AUTHOR: Tamara Oliveira MEDICATION ADMINISTRATION PROFESSIONAL-C * ALL edits or amendments must be made on the electronic/computer document * History of Present Illness HPIRequesting Clinician: Dr. Case Toney for consult:shortness of breathChief complaint:shortness of breath Free Text HPI NotesFree Text HPI Notes:Dusty Francois is a 59 year old male with past medical history of CAD s/p PCI, chronic systolic heart failure with reduced EF, PVD, HTN, HLD, CKD, and DM who presented to the ED due to shortness of breath for the past 3 days. Patient states the shortness of breath is worse with exertion. Patient reports compliance with home medications. Patient denies chest pain, palpitations or edema noted. No acute distress noted. History - Adult longitudinalPast medical history:Reports: Diabetes mellitus, Kidney disease/stones (Chronic kidney disease), Prior [place]. Additional medical history:gastroparesis, CVAAdditional surgical history:Toe amputation, x2 cardiac stentsAdditional family history:Brother and Father CADAlcohol use: Denies EtOH useDrug use: Denies recreational drugsSmoking status for patients 13 years old or older: Never SmokerMedications:Home Medications:Medication Dose/Rte/Freq Days Qty Entered Last Max Daily Dose Reviewed INSULIN DETEMIR 10 UNITS SUBQ 09/18/18 05/01/20 (LEVEMIR) Q12HR 195218Strength: 100 UNITS/MLVIAL FUROSEMIDE (LASIX) 40 MG PO 07/16/19 05/01/20trength: 40 MG TAB BID PRN EDEMA 0151 0219 ATORVASTATIN (LIPITOR) 80 MG PO DAILY 09/15/19 05/01/20trength: 80 MG TAB 830 0219 TAMSULOSIN ER (FLOMAX) 0.4 MG PO BEDTIME 09/15/19 05/01/20trength: 0.4 MG 0832 0220CAP.SR.24H INSULIN LISPRO 0 UNITS SUBQ BID 09/15/19 05/01/20 PROTAM/INSULIN LISPRO 0833 0220 (HumaLOG Mix 50/50 KWIKPEN)Strength: 100 UNITS/MLPEN.INJCTR POLYETHYLENE GLYCOL 17 GM PO DAILY 09/15/19 05/01/20 3350 0840 0219 (MIRALAX)Strength: 17 GM POWDER ISOSORBIDE DINITRATE 10 MG PO BID 07/16/19 05/01/20 (ISORDIL) 0146 0220Strength: 10 MG TAB CHOLECALCIFEROL 50,000 UNIT PO Q7D 07/16/19 05/01/20 (VITAMIN D3) 0149 0219 (VITAMIN D3)Strength: 50,000 UNIT CAP[repatha] 10/03/19 05/01/20trength: 193 0219 TICAGRELOR (BRILINTA) 90 MG PO BID 180 06/13/19 05/01/20trength: 90 MG TAB 1259 0220 ASPIRIN 81 MG PO DAILY 90 06/13/19 05/01/20trength: 81 MG TAB.CHEW 1300 0220 Current Hospital Medications:Blood Formation,Coagulation Sig/Jean Carlos Start time Last Medication Dose Route Stop Time Status Admin Ticagrelor 90 MG BID 04/30 2145 DC 05/01 (BRILINTA) PO 05/01 0901 0913 Cardiovascular Drugs Sig/Jean Carlos Start time Last Medication Dose Route Stop Time Status Admin Hydralazine HCl 10 MG ONCE ONE 05/01 013 DC 05/01 (APRESOLINE) IV 05/01 131 0127 Hydralazine HCl 10 MG Q6H PRN PRN 05/01 0130 AC (APRESOLINE) IV 05/31 0129 Central Nervous System Agents Sig/Jean Carlos Start time Last Medication Dose Route Stop Time Status Admin Hydrocodone Bitart/ 1 TAB Q4H PRN PRN 04/30 2145 AC Acetaminophen PO 05/01 2032 (NORCO 7.5/325 TABLET) Aspirin 81 MG X1ED STA 04/30 2136 DC 05/01 (ASPIRIN) PO 04/30 2137 0026 Electrolytic, Caloric, And Alex Sig/Jean Carlos Start time Last Medication Dose Route Stop Time Status Admin Sodium Chloride 0 ASDIR PRN 04/30 1800 AC (SODIUM CHLORIDE) IV 05/01 1655 Gastrointestinal Drugs Sig/Jean Carlos Start time Last Medication Dose Route Stop Time Status Admin Ondansetron HCl 4 MG Q6H PRN PRN 04/30 2145 AC (ZOFRAN) IV 05/01 2032 Allergies:Coded Allergies:No Known Allergies (05/01/20) Review of SystemsConstitutional:Denies: chills, fever, generalized weakness. Skin:Denies: rash, swelling. Respiratory:Reports: SORIANO (dyspnea on exertion). Cardiovascular:Denies: chest pain, palpitations. GI:Denies: abdominal pain, nausea, vomiting. :Denies: dysuria, flank pain. Heme:Denies: bleeding. Neuro:Denies: dizziness, headache, lightheaded. All systems rev neg: except as marked Objective Physical ExamVS/I O:Vital Signs: Date Time Temp Pulse Resp B/P B/P Pulse O2 O2 Flow FiO2 Mean Ox Delivery Rate 05/01 1139 97.9 76 16 158/88 111.5 99 Room air 05/01 0756 98.1 77 16 145/77 99.7 96 Room air 05/01 0416 97.9 76 17 114/61 78.5 98 Room air 05/01 0214 97.7 55 17 131/75 93.8 97 Room air 05/01 0155 79 18 132/63 86 100 Room air 05/01 0147 76 18 172/85 114 99 Room air 05/01 0104 98.1 66 18 201/105 137 98 Room air 04/30 1933 74 18 191/98 129 99 Room air 04/30 1728 98.3 74 18 154/85 108 99 Room air 24 hour I O ending at 0700: 05/01 0700 04/30 1900 Intake Total Output Total Balance Patient 200 lb Weight Weight Stated/Reported Measurement Method Patient Weight Weight (lb): Weight (oz): Weight (kg): 90.909 General appearance: alert, awake, oriented, no acute distressHead/Eyes: atraumatic, EOMI, normocephalic, PERRLACardiovascular: CV assessment: regular rate and rhythm, normal heart soundsRespiratory: clear to auscultation, no distressAbdomen: soft, non-tender, normal bowel soundsGenitourinary: no bladder distention, no flank painUpper extremity: UE assessment: no clubbing, no cyanosis, no edemaLower extremity: LE assessment: no clubbing, no cyanosis, no edema, 2+ peripheral pulsesMusculoskeletal: full range of motionNeuro/VACUUM FILTER OPERATOR: alert, oriented X 3, normal speech, no motor deficitsSkin: dry, no rashPsychiatry: normal affect, normal mood, no hallucinations ResultsFindings/Data:Laboratory Tests 05/01 05/01 05/01 05/01 04/30 1141 0758 0320 0056 1745 Chemistry POC Glucose (70 - 110 MG/DL) 323 H 243 H Troponin I (0.000 - 0.045 ng/mL) < 0.015 < 0.015 < 0.015 04/30 174 Chemistry Sodium (134 - 147 mEq/L) 138 Potassium (3.4 - 5.0 mEq/L) 5.5 H Chloride (100 - 108 mEq/L) 113 H Carbon Dioxide (21 - 33 mEq/L) 19 L Anion Gap (0 - 20) 12 BUN (7 - 18 mg/dL) 48 H Creatinine (0.6 - 1.3 mg/dL) 2.2 H Glomerular Filtr Rate (90 - 95) 37.5 L Glucose (70 - 110 mg/dL) 202 H Calcium (8.0 - 10.5 mg/dL) 8.8 Rap B-Natriuretic Pept (0.0 - 100.0 pg/mL) 69.3 Laboratory Tests 04/30 1745 Coagulation D-Dimer (<=500 ng/mlFEU) 576 *H Laboratory Tests 04/30 1745 Hematology WBC (4.5 - 11.0 x10 3/uL) 6.37 RBC (4.00 - 5.60 x10 6/uL) 3.43 L Hgb (12.5 - 16.9 g/dL) 9.5 L Hct (37.5 - 50.7 %) 30.3 L MCV (81.0 - 99.0 fL) 88.3 MCH (27.0 - 33.0 pg) 27.7 MCHC (33.0 - 37.0 g/dL) 31.4 L RDW (11.5 - 14.5 %) 15.6 H Plt Count (150 - 400 x10 3/uL) 272 MPV (7.0 - 9.0 fL) 10.5 H Neut % (Auto) (56.0 - 77.0 %) 53.7 L Lymph % (Auto) (14.0 - 32.0 %) 31.1 Highland % (Auto) (4.8 - 9.0 %) 11.3 H Eos % (Auto) (0.3 - 3.7 %) 3.1 Baso % (Auto) (0.0 - 2.0 %) 0.3 Neut # (Auto) (2.0 - 7.6 x10 3/uL) 3.42 Lymph # (Auto) (1.0 - 3.8 x10 3/uL) 1.98 Highland # (Auto) (0.1 - 0.8 x10 3/uL) 0.72 Eos # (Auto) (0.0 - 0.2 x10 3/uL) 0.20 Baso # (Auto) (0.0 - 0.2 x10 3/uL) 0.02 Abs Immat Gran (auto) (0.00 - 0.03 x10 3/uL) 0.03 Add Manual Diff NO Immature Gran % (0.0 - 2.0 %) 0.5 Nucleated RBC % (0 - 0 %) 0.0 Nucleated RBCs # (Man) (0.0 - 0.1 x10 3/uL) 0.00 Laboratory Tests 04/30 1755 Serology Nasal/Oral COVID-19 PCR (Negative) Negative Laboratory Tests 05/01 05/01 04/30 0320 0056 1745 Chemistry Troponin I (0.000 - 0.045 ng/mL) < 0.015 < 0.015 < 0.015 Radiology Data:Recent Impressions:RADIOLOGY - XR CHEST 1 V 04/30 1810 Report Impression - Status: SIGNED Entered: 04/30/20201817 Impression: Chest, single view. Eventration of the righthemidiaphragm. No consolidation, pleural effusion, or pneumothorax. Cardiomediastinal silhouette is unremarkable. No acute osseousabnormality. SL: [id number] By: AlenaKM2Kacey Hanson M.D.NUCLEAR MEDICINE - DE LUNG PERF PARTICULATE 04/30 2058 Report Impression - Status: SIGNED Entered: 04/30/20207 IMPRESSION:1. Distribution of the pulmonary perfusion agent appears normal withno perfusion defects detected. The examination is very lowprobability for pulmonary embolism. SL: 131Impression By: Daniela - Nahum Griffith M.D. Diagnosis, Assessment Plan Free Text DxA P NotesFree Text DxA P Notes:Dusty Francois is a 59 year old male with past medical history of CAD s/p PCI, chronic systolic heart failure with reduced EF, PVD, HTN, HLD, CKD, and DM who presented to the ED due to shortness of breath. 1. Acute on chronic systolic heart failure- 06/2019 ECHO: EF 40-45%, moderate LVH, trivial pericardial effusion- 12/2019 ECHO: EF 50-55%, mild LVH, LA mildly dilated, mild MR, trace TR, grade I diastolic dysfunction- repeat ECHO ordered to rule out wall motion abnormalities and evaluate EF- will order metoprolol succinate 25 mg daily- will hold off on MARIA G/ARB due to renal function- BNP ordered- daily weights- I Os 2. Rule out PE- Ddimer elevated- Lung Perfusion test ordered 3. Hx of CAD s/p PCI- 09/2019 s/p LHC: successful PCI of the proximal and mid RCA using 2 synergy stents- continue brilinta 90 mg BID- continue aspirin 81 mg daily- continue statin- continue isosorbide dinitrate 10 ,g BOD 4. Acute on CKD- cr: 2.2- nephrology consulted- monitor electrolytes 5. HTN- blood pressure elevated on admission, now improving- started metoprolol succinate 25 mg daily- PRN Hydralazine IV 6. HLD- continue atorvastatin 80 mg QHS Thank you for the consult. Discussed patient with supervising physician, Dr. Yvette Rae, who agrees with plan of care. at 1602 RPT #:[id number] OF REPORTKSBfriwvioylyj8349-19-92Z37:27:00G.QHPZ143 [id number] for patient wjvwCWVOMLASHLFBAO0357-49-15C78:03:12 [facility] 2020-05-01 09:27:00 [id number]:27:00 H [facility] ([facility])Cardiology ConsultationREPORT#:[id number] REPORT STATUS: SignedDATE:05/01/20 TIME: 926 PATIENT: DUSTY FRANCOIS UNIT #: [id number]#: [id number] [address] [birth year] AGE: 59 SEX: M ATTEND: Kyung Bedoya MDADM AUTHOR: Tamara Oliveira MEDICATION ADMINISTRATION PROFESSIONAL-C * ALL edits or amendments must be made on the electronic/computer document * Tamara Oliveira 05/01/20926:History of Present Illness HPIRequesting Clinician: Dr. Case Toney for consult:shortness of breathChief complaint:shortness of breath Free Text HPI NotesFree Text HPI Notes:Dusty Francois is a 59 year old male with past medical history of CAD s/p PCI, chronic systolic heart failure with reduced EF, PVD, HTN, HLD, CKD, and DM who presented to the ED due to shortness of breath for the past 3 days. Patient states the shortness of breath is worse with exertion. Patient reports compliance with home medications. Patient denies chest pain, palpitations or edema noted. No acute distress noted. History - Adult longitudinalPast medical history:Reports: Diabetes mellitus, Kidney disease/stones (Chronic kidney disease), Prior [place]. Additional medical history:gastroparesis, CVAAdditional surgical history:Toe amputation, x2 cardiac stentsAdditional family history:Brother and Father CADAlcohol use: Denies EtOH useDrug use: Denies recreational drugsSmoking status for patients 13 years old or older: Never SmokerMedications:Home Medications:Medication Dose/Rte/Freq Days Qty Entered Last Max Daily Dose Reviewed INSULIN DETEMIR 10 UNITS SUBQ 09/18/18 05/01/20 (LEVEMIR) Q12HR 1950 218Strength: 100 UNITS/MLVIAL FUROSEMIDE (LASIX) 40 MG PO 07/16/19 05/01/20trength: 40 MG TAB BID PRN EDEMA 0151 0219 ATORVASTATIN (LIPITOR) 80 MG PO DAILY 09/15/19 05/01/20trength: 80 MG TAB 0831 0219 TAMSULOSIN ER (FLOMAX) 0.4 MG PO BEDTIME 09/15/19 05/01/20trength: 0.4 MG 0832 0220CAP.SR.24H INSULIN LISPRO 0 UNITS SUBQ BID 09/15/19 05/01/20 PROTAM/INSULIN LISPRO 0833 0220 (HumaLOG Mix 50/50 KWIKPEN)Strength: 100 UNITS/MLPEN.INJCTR POLYETHYLENE GLYCOL 17 GM PO DAILY 09/15/19 05/01/20 3350 0840 0219 (MIRALAX)Strength: 17 GM POWDER ISOSORBIDE DINITRATE 10 MG PO BID 07/16/19 05/01/20 (ISORDIL) 0146 0220Strength: 10 MG TAB CHOLECALCIFEROL 50,000 UNIT PO Q7D 07/16/19 05/01/20 (VITAMIN D3) 0149 0219 (VITAMIN D3)Strength: 50,000 UNIT CAP[repatha] 10/03/19 05/01/20trength: 193 0219 TICAGRELOR (BRILINTA) 90 MG PO BID 180 06/13/19 05/01/20trength: 90 MG TAB 1259 0220 ASPIRIN 81 MG PO DAILY 90 06/13/19 05/01/20trength: 81 MG TAB.CHEW 1300 0220 Current Hospital Medications:Blood Formation,Coagulation Sig/Jean Carlos Start time Last Medication Dose Route Stop Time Status Admin Ticagrelor 90 MG BID 04/30 2145 DC 05/01 (BRILINTA) PO 05/01 0901 0913 Cardiovascular Drugs Sig/Jean Carlos Start time Last Medication Dose Route Stop Time Status Admin Hydralazine HCl 10 MG ONCE ONE 05/01 0130 DC 05/01 (APRESOLINE) IV 05/01 0131 0127 Hydralazine HCl 10 MG Q6H PRN PRN 05/01 0130 AC (APRESOLINE) IV 05/31 0129 Central Nervous System Agents Sig/Jean Carlos Start time Last Medication Dose Route Stop Time Status Admin Hydrocodone Bitart/ 1 TAB Q4H PRN PRN 04/30 2145 AC Acetaminophen PO 05/01 2032 (NORCO 7.5/325 TABLET) Aspirin 81 MG X1ED STA 04/30 2136 DC 06/17 (ASPIRIN) PO 04/30 2137 0026 Electrolytic, Caloric, And Alex Sig/Jean Carlos Start time Last Medication Dose Route Stop Time Status Admin Sodium Chloride 0 ASDIR PRN 04/30 1800 AC (SODIUM CHLORIDE) IV 05/01 1655 Gastrointestinal Drugs Sig/Jean Carlos Start time Last Medication Dose Route Stop Time Status Admin Ondansetron HCl 4 MG Q6H PRN PRN 04/30 2145 AC (ZOFRAN) IV 05/01 2032 Allergies:Coded Allergies:No Known Allergies (05/01/20) Review of SystemsConstitutional:Denies: chills, fever, generalized weakness. Skin:Denies: rash, swelling. Respiratory:Reports: SORIANO (dyspnea on exertion). Cardiovascular:Denies: chest pain, palpitations. GI:Denies: abdominal pain, nausea, vomiting. :Denies: dysuria, flank pain. Heme:Denies: bleeding. Neuro:Denies: dizziness, headache, lightheaded. All systems rev neg: except as marked Objective Physical ExamVS/I O:Vital Signs: Date Time Temp Pulse Resp B/P B/P Pulse O2 O2 Flow FiO2 Mean Ox Delivery Rate 05/01 1139 97.9 76 16 158/88 111.5 99 Room air 05/01 0756 98.1 77 16 145/77 99.7 96 Room air 05/01 0416 97.9 76 17 114/61 78.5 98 Room air 05/01 0214 97.7 55 17 131/75 93.8 97 Room air 05/01 0155 79 18 132/63 86 100 Room air 05/01 0147 76 18 172/85 114 99 Room air 05/01 0104 98.1 66 18 201/105 137 98 Room air 04/30 1933 74 18 191/98 129 99 Room air 04/30 1728 98.3 74 18 154/85 108 99 Room air 24 hour I O ending at 0700: 05/01 0700 04/30 1900 Intake Total Output Total Balance Patient 200 lb Weight Weight Stated/Reported Measurement Method Patient Weight Weight (lb): Weight (oz): Weight (kg): 90.909 General appearance: alert, awake, oriented, no acute distressHead/Eyes: atraumatic, EOMI, normocephalic, PERRLACardiovascular: CV assessment: regular rate and rhythm, normal heart soundsRespiratory: clear to auscultation, no distressAbdomen: soft, non-tender, normal bowel soundsGenitourinary: no bladder distention, no flank painUpper extremity: UE assessment: no clubbing, no cyanosis, no edemaLower extremity: LE assessment: no clubbing, no cyanosis, no edema, 2+ peripheral pulsesMusculoskeletal: full range of motionNeuro/VACUUM FILTER OPERATOR: alert, oriented X 3, normal speech, no motor deficitsSkin: dry, no rashPsychiatry: normal affect, normal mood, no hallucinations ResultsFindings/Data:Laboratory Tests 05/01 05/01 05/01 05/01 04/30 1141 0758 0320 0056 1745 Chemistry POC Glucose (70 - 110 MG/DL) 323 H 243 H Troponin I (0.000 - 0.045 ng/mL) < 0.015 < 0.015 < 0.015 04/30 1745 Chemistry Sodium (134 - 147 mEq/L) 138 Potassium (3.4 - 5.0 mEq/L) 5.5 H Chloride (100 - 108 mEq/L) 113 H Carbon Dioxide (21 - 33 mEq/L) 19 L Anion Gap (0 - 20) 12 BUN (7 - 18 mg/dL) 48 H Creatinine (0.6 - 1.3 mg/dL) 2.2 H Glomerular Filtr Rate (90 - 95) 37.5 L Glucose (70 - 110 mg/dL) 202 H Calcium (8.0 - 10.5 mg/dL) 8.8 Rap B-Natriuretic Pept (0.0 - 100.0 pg/mL) 69.3 Laboratory Tests 04/30 1745 Coagulation D-Dimer (<=500 ng/mlFEU) 576 *H Laboratory Tests 04/30 1745 Hematology WBC (4.5 - 11.0 x10 3/uL) 6.37 RBC (4.00 - 5.60 x10 6/uL) 3.43 L Hgb (12.5 - 16.9 g/dL) 9.5 L Hct (37.5 - 50.7 %) 30.3 L MCV (81.0 - 99.0 fL) 88.3 MCH (27.0 - 33.0 pg) 27.7 MCHC (33.0 - 37.0 g/dL) 31.4 L RDW (11.5 - 14.5 %) 15.6 H Plt Count (150 - 400 x10 3/uL) 272 MPV (7.0 - 9.0 fL) 10.5 H Neut % (Auto) (56.0 - 77.0 %) 53.7 L Lymph % (Auto) (14.0 - 32.0 %) 31.1 Highland % (Auto) (4.8 - 9.0 %) 11.3 H Eos % (Auto) (0.3 - 3.7 %) 3.1 Baso % (Auto) (0.0 - 2.0 %) 0.3 Neut # (Auto) (2.0 - 7.6 x10 3/uL) 3.42 Lymph # (Auto) (1.0 - 3.8 x10 3/uL) 1.98 Highland # (Auto) (0.1 - 0.8 x10 3/uL) 0.72 Eos # (Auto) (0.0 - 0.2 x10 3/uL) 0.20 Baso # (Auto) (0.0 - 0.2 x10 3/uL) 0.02 Abs Immat Gran (auto) (0.00 - 0.03 x10 3/uL) 0.03 Add Manual Diff NO Immature Gran % (0.0 - 2.0 %) 0.5 Nucleated RBC % (0 - 0 %) 0.0 Nucleated RBCs # (Man) (0.0 - 0.1 x10 3/uL) 0.00 Laboratory Tests 04/30 175 Serology Nasal/Oral COVID-19 PCR (Negative) Negative Laboratory Tests 05/01 05/01 04/30 0320 0056 1745 Chemistry Troponin I (0.000 - 0.045 ng/mL) < 0.015 < 0.015 < 0.015 Radiology Data:Recent Impressions:RADIOLOGY - XR CHEST 1 V 04/30 1810 Report Impression - Status: SIGNED Entered: 04/30/20201817 Impression: Chest, single view. Eventration of the righthemidiaphragm. No consolidation, pleural effusion, or pneumothorax. Cardiomediastinal silhouette is unremarkable. No acute osseousabnormality. SL: [id number] By: [email or web address] - René Hanson M.D.NUCLEAR MEDICINE - NM LUNG PERF PARTICULATE 04/30 2058 Report Impression - Status: SIGNED Entered: 04/30/20202157 IMPRESSION:1. Distribution of the pulmonary perfusion agent appears normal withno perfusion defects detected. The examination is very lowprobability for pulmonary embolism. SL: 131Impression By: Daniela - Nahum Griffith M.D. Diagnosis, Assessment Plan Free Text DxA P NotesFree Text DxA P Notes:Dusty Francois is a 59 year old male with past medical history of CAD s/p PCI, chronic systolic heart failure with reduced EF, PVD, HTN, HLD, CKD, and DM who presented to the ED due to shortness of breath. 1. Acute on chronic systolic heart failure- 06/2019 ECHO: EF 40-45%, moderate LVH, trivial pericardial effusion- 12/2019 ECHO: EF 50-55%, mild LVH, LA mildly dilated, mild MR, trace TR, grade I diastolic dysfunction- repeat ECHO ordered to rule out wall motion abnormalities and evaluate EF- will order metoprolol succinate 25 mg daily- will hold off on MARIA G/ARB due to renal function- BNP ordered- daily weights- I Os 2. Rule out PE- Ddimer elevated- Lung Perfusion test ordered 3. Hx of CAD s/p PCI- 09/2019 s/p LHC: successful PCI of the proximal and mid RCA using 2 synergy stents- continue brilinta 90 mg BID- continue aspirin 81 mg daily- continue statin- continue isosorbide dinitrate 10 ,g BOD 4. Acute on CKD- cr: 2.2- nephrology consulted- monitor electrolytes 5. HTN- blood pressure elevated on admission, now improving- started metoprolol succinate 25 mg daily- PRN Hydralazine IV 6. HLD- continue atorvastatin 80 mg QHS Thank you for the consult. Discussed patient with supervising physician, Dr. Yvette Rae, who agrees with plan of care. Yvette Rae 05/05/20 1501:Diagnosis, Assessment Plan Free Text DxA P NotesFree Text DxA P Notes:Pt seen and examined, labs and imaging reviewed, I agree with the assessement and plan as documented by the MEDICATION ADMINISTRATION PROFESSIONAL.Dusty Francois is a 59 year old male with past medical history of CAD s/p PCI, chronic systolic heart failure with reduced EF, PVD, HTN, HLD, CKD, and DM who presented to the ED due to shortness of breath. 1. Acute on chronic systolic heart failure- 06/2019 ECHO: EF 40-45%, moderate LVH, trivial pericardial effusion- 12/2019 ECHO: EF 50-55%, mild LVH, LA mildly dilated, mild MR, trace TR, grade I diastolic dysfunction- repeat ECHO ordered to rule out wall motion abnormalities and evaluate EF- will order metoprolol succinate 25 mg daily- will hold off on MARIA G/ARB due to renal function- BNP ordered- daily weights- I Os Electronically Signed by Tamara Oliveira MEDICATION ADMINISTRATION PROFESSIONALVeronicaC on 05/01/20 at 1602 RPT #:[id number] OF REPORTEKIpfftiuglltf4791-14-71F28:27:00G.VVNA526 [id number] for patient [id number]:02:12 HCACL 2020-05-01 09:27:00 [id number]:27:00 H [facility] ([facility])Cardiology ConsultationREPORT#:[id number] REPORT STATUS: SignedDATE:05/01/20 TIME: 926 PATIENT: DUSTY FRANCOIS UNIT #: [id number]#: [id number] [place] [facility] [place]OB: [birth year] AGE: 59 SEX: M ATTEND: Kyung Bedoya [facility] AUTHOR: Tamara Oliveira * ALL edits or amendments must be made on the electronic/computer document * Tamara Oliveira 05/01/20 0927:History of Present Illness HPIRequesting Clinician: Dr. Case oTney for consult:shortness of breathChief complaint:shortness of breath Free Text HPI NotesFree Text HPI Notes:Dusty Francois is a 59 year old male with past medical history of CAD s/p PCI, chronic systolic heart failure with reduced EF, PVD, HTN, HLD, CKD, and DM who presented to the ED due to shortness of breath for the past 3 days. Patient states the shortness of breath is worse with exertion. Patient reports compliance with home medications. Patient denies chest pain, palpitations or edema noted. No acute distress noted. History - Adult longitudinalPast medical history:Reports: Diabetes mellitus, Kidney disease/stones (Chronic kidney disease), Prior [place]. Additional medical history:gastroparesis, CVAAdditional surgical history:Toe amputation, x2 cardiac stentsAdditional family history:Brother and Father CADAlcohol use: Denies EtOH useDrug use: Denies recreational drugsSmoking status for patients 13 years old or older: Never SmokerMedications:Home Medications:Medication Dose/Rte/Freq Days Qty Entered Last Max Daily Dose Reviewed INSULIN DETEMIR 10 UNITS SUBQ 09/18/18 05/01/20 (LEVEMIR) Q12HR 19509Strength: 100 UNITS/MLVIAL FUROSEMIDE (LASIX) 40 MG PO 07/16/19 05/01/20trength: 40 MG TAB BID PRN EDEMA 0151 0219 ATORVASTATIN (LIPITOR) 80 MG PO DAILY 09/15/19 05/01/20trength: 80 MG TAB 0831 0219 TAMSULOSIN ER (FLOMAX) 0.4 MG PO BEDTIME 09/15/19 05/01/20trength: 0.4 MG 0832 0220CAP.SR.24H INSULIN LISPRO 0 UNITS SUBQ BID 09/15/19 05/01/20 PROTAM/INSULIN LISPRO 0833 0220 (HumaLOG Mix 50/50 KWIKPEN)Strength: 100 UNITS/MLPEN.INJCTR POLYETHYLENE GLYCOL 17 GM PO DAILY 09/15/19 05/01/20 3350 0840 0219 (MIRALAX)Strength: 17 GM POWDER ISOSORBIDE DINITRATE 10 MG PO BID 07/16/19 05/01/20 (ISORDIL) 0146 0220Strength: 10 MG TAB CHOLECALCIFEROL 50,000 UNIT PO Q7D 07/16/19 05/01/20 (VITAMIN D3) 0149 0219 (VITAMIN D3)Strength: 50,000 UNIT CAP[repatha] 10/03/19 05/01/20trength: 193 0219 TICAGRELOR (BRILINTA) 90 MG PO BID 180 06/13/19 05/01/20trength: 90 MG TAB 1259 0220 ASPIRIN 81 MG PO DAILY 90 06/13/19 05/01/20trength: 81 MG TAB.CHEW 1300 0220 Current Hospital Medications:Blood Formation,Coagulation Sig/Jean Carlos Start time Last Medication Dose Route Stop Time Status Admin Ticagrelor 90 MG BID 04/30 2145 DC 05/01 (BRILINTA) PO 05/01 0901 0913 Cardiovascular Drugs Sig/Jean Carlos Start time Last Medication Dose Route Stop Time Status Admin Hydralazine HCl 10 MG ONCE ONE 05/01 0130 DC 05/01 (APRESOLINE) IV 05/01 0131 0127 Hydralazine HCl 10 MG Q6H PRN PRN 05/01 0130 AC (APRESOLINE) IV 05/31 0129 Central Nervous System Agents Sig/Jean Carlos Start time Last Medication Dose Route Stop Time Status Admin Hydrocodone Bitart/ 1 TAB Q4H PRN PRN 04/30 214 AC Acetaminophen PO 05/01 2032 (NORCO 7.5/325 TABLET) Aspirin 81 MG X1ED STA 04/30 2136 DC 05/01 (ASPIRIN) PO 04/30 2137 0026 Electrolytic, Caloric, And Alex Sig/Jean Carlos Start time Last Medication Dose Route Stop Time Status Admin Sodium Chloride 0 ASDIR PRN 04/30 1800 AC (SODIUM CHLORIDE) IV 05/01 1655 Gastrointestinal Drugs Sig/Jean Carlos Start time Last Medication Dose Route Stop Time Status Admin Ondansetron HCl 4 MG Q6H PRN PRN 04/30 2145 AC (ZOFRAN) IV 05/01 2032 Allergies:Coded Allergies:No Known Allergies (05/01/20) Review of SystemsConstitutional:Denies: chills, fever, generalized weakness. Skin:Denies: rash, swelling. Respiratory:Reports: SORIANO (dyspnea on exertion). Cardiovascular:Denies: chest pain, palpitations. GI:Denies: abdominal pain, nausea, vomiting. :Denies: dysuria, flank pain. Heme:Denies: bleeding. Neuro:Denies: dizziness, headache, lightheaded. All systems rev neg: except as marked Objective Physical ExamVS/I O:Vital Signs: Date Time Temp Pulse Resp B/P B/P Pulse O2 O2 Flow FiO2 Mean Ox Delivery Rate 05/01 1139 97.9 76 16 158/88 111.5 99 Room air 05/01 0756 98.1 77 16 145/77 99.7 96 Room air 05/01 0416 97.9 76 17 114/61 78.5 98 Room air 05/01 0214 97.7 55 17 131/75 93.8 97 Room air 05/01 0155 79 18 132/63 86 100 Room air 05/01 0147 76 18 172/85 114 99 Room air 05/01 0104 98.1 66 18 201/105 137 98 Room air 04/30 1933 74 18 191/98 129 99 Room air 04/30 1728 98.3 74 18 154/85 108 99 Room air 24 hour I O ending at 0700: 05/01 0700 04/30 1900 Intake Total Output Total Balance Patient 200 lb Weight Weight Stated/Reported Measurement Method Patient Weight Weight (lb): Weight (oz): Weight (kg): 90.909 General appearance: alert, awake, oriented, no acute distressHead/Eyes: atraumatic, EOMI, normocephalic, PERRLACardiovascular: CV assessment: regular rate and rhythm, normal heart soundsRespiratory: clear to auscultation, no distressAbdomen: soft, non-tender, normal bowel soundsGenitourinary: no bladder distention, no flank painUpper extremity: UE assessment: no clubbing, no cyanosis, no edemaLower extremity: LE assessment: no clubbing, no cyanosis, no edema, 2+ peripheral pulsesMusculoskeletal: full range of motionNeuro/VACUUM FILTER OPERATOR: alert, oriented X 3, normal speech, no motor deficitsSkin: dry, no rashPsychiatry: normal affect, normal mood, no hallucinations ResultsFindings/Data:Laboratory Tests 05/01 05/01 05/01 05/01 04/30 1141 0758 0320 0056 1745 Chemistry POC Glucose (70 - 110 MG/DL) 323 H 243 H Troponin I (0.000 - 0.045 ng/mL) < 0.015 < 0.015 < 0.015 04/30 04/30 1745 1745 Chemistry Sodium (134 - 147 mEq/L) 138 Potassium (3.4 - 5.0 mEq/L) 5.5 H Chloride (100 - 108 mEq/L) 113 H Carbon Dioxide (21 - 33 mEq/L) 19 L Anion Gap (0 - 20) 12 BUN (7 - 18 mg/dL) 48 H Creatinine (0.6 - 1.3 mg/dL) 2.2 H Glomerular Filtr Rate (90 - 95) 37.5 L Glucose (70 - 110 mg/dL) 202 H Calcium (8.0 - 10.5 mg/dL) 8.8 Rap B-Natriuretic Pept (0.0 - 100.0 pg/mL) 69.3 Laboratory Tests 04/30 1745 Coagulation D-Dimer (<=500 ng/mlFEU) 576 *H Laboratory Tests 04/30 1745 Hematology WBC (4.5 - 11.0 x10 3/uL) 6.37 RBC (4.00 - 5.60 x10 6/uL) 3.43 L Hgb (12.5 - 16.9 g/dL) 9.5 L Hct (37.5 - 50.7 %) 30.3 L MCV (81.0 - 99.0 fL) 88.3 MCH (27.0 - 33.0 pg) 27.7 MCHC (33.0 - 37.0 g/dL) 31.4 L RDW (11.5 - 14.5 %) 15.6 H Plt Count (150 - 400 x10 3/uL) 272 MPV (7.0 - 9.0 fL) 10.5 H Neut % (Auto) (56.0 - 77.0 %) 53.7 L Lymph % (Auto) (14.0 - 32.0 %) 31.1 Highland % (Auto) (4.8 - 9.0 %) 11.3 H Eos % (Auto) (0.3 - 3.7 %) 3.1 Baso % (Auto) (0.0 - 2.0 %) 0.3 Neut # (Auto) (2.0 - 7.6 x10 3/uL) 3.42 Lymph # (Auto) (1.0 - 3.8 x10 3/uL) 1.98 Highland # (Auto) (0.1 - 0.8 x10 3/uL) 0.72 Eos # (Auto) (0.0 - 0.2 x10 3/uL) 0.20 Baso # (Auto) (0.0 - 0.2 x10 3/uL) 0.02 Abs Immat Gran (auto) (0.00 - 0.03 x10 3/uL) 0.03 Add Manual Diff NO Immature Gran % (0.0 - 2.0 %) 0.5 Nucleated RBC % (0 - 0 %) 0.0 Nucleated RBCs # (Man) (0.0 - 0.1 x10 3/uL) 0.00 Laboratory Tests 04/30 1755 Serology Nasal/Oral COVID-19 PCR (Negative) Negative Laboratory Tests 05/01 05/01 04/30 0320 0056 1745 Chemistry Troponin I (0.000 - 0.045 ng/mL) < 0.015 < 0.015 < 0.015 Radiology Data:Recent Impressions:RADIOLOGY - XR CHEST 1 V 04/30 1810 Report Impression - Status: SIGNED Entered: 04/30/20201817 Impression: Chest, single view. Eventration of the righthemidiaphragm. No consolidation, pleural effusion, or pneumothorax. Cardiomediastinal silhouette is unremarkable. No acute osseousabnormality. SL: [id number] By: AlenaKM2Kacey Hanson M.D.NUCLEAR MEDICINE - NM LUNG PERF PARTICULATE 04/30 2058 Report Impression - Status: SIGNED Entered: 04/30/20202157 IMPRESSION:1. Distribution of the pulmonary perfusion agent appears normal withno perfusion defects detected. The examination is very lowprobability for pulmonary embolism. SL: 131Impression By: Daniela Griffith M.D. Diagnosis, Assessment Plan Free Text DxA P NotesFree Text DxA P Notes:Dusty Francois is a 59 year old male with past medical history of CAD s/p PCI, chronic systolic heart failure with reduced EF, PVD, HTN, HLD, CKD, and DM who presented to the ED due to shortness of breath. 1. Acute on chronic systolic heart failure- 06/2019 ECHO: EF 40-45%, moderate LVH, trivial pericardial effusion- 12/2019 ECHO: EF 50-55%, mild LVH, LA mildly dilated, mild MR, trace TR, grade I diastolic dysfunction- repeat ECHO ordered to rule out wall motion abnormalities and evaluate EF- will order metoprolol succinate 25 mg daily- will hold off on MARIA G/ARB due to renal function- BNP ordered- daily weights- I Os 2. Rule out PE- Ddimer elevated- Lung Perfusion test ordered 3. Hx of CAD s/p PCI- 09/2019 s/p LHC: successful PCI of the proximal and mid RCA using 2 synergy stents- continue brilinta 90 mg BID- continue aspirin 81 mg daily- continue statin- continue isosorbide dinitrate 10 ,g BOD 4. Acute on CKD- cr: 2.2- nephrology consulted- monitor electrolytes 5. HTN- blood pressure elevated on admission, now improving- started metoprolol succinate 25 mg daily- PRN Hydralazine IV 6. HLD- continue atorvastatin 80 mg QHS Thank you for the consult. Discussed patient with supervising physician, Dr. Yvette Rae, who agrees with plan of care. Yvette Rae 05/05/20 1501:Diagnosis, Assessment Plan Free Text DxA P NotesFree Text DxA P Notes:Pt seen and examined, labs and imaging reviewed, I agree with the assessement and plan as documented by the MEDICATION ADMINISTRATION PROFESSIONAL.Dusty Francois is a 59 year old male with past medical history of CAD s/p PCI, chronic systolic heart failure with reduced EF, PVD, HTN, HLD, CKD, and DM who presented to the ED due to shortness of breath. 1. Acute on chronic systolic heart failure- 06/2019 ECHO: EF 40-45%, moderate LVH, trivial pericardial effusion- 12/2019 ECHO: EF 50-55%, mild LVH, LA mildly dilated, mild MR, trace TR, grade I diastolic dysfunction- repeat ECHO ordered to rule out wall motion abnormalities and evaluate EF- will order metoprolol succinate 25 mg daily- will hold off on MARIA G/ARB due to renal function- BNP ordered- daily weights- I Os at 1602 at 1502 RPT #:[id number] OF [id number]:27:00G.RBPO752 [id number] for patient [id number]:02:21 HCACL 2020-05-01 06:49:00 [id number]:49:0006 17-[address] [place] [id number] PATIENT NAME: DUSTY FRANCOIS ADMIT DATE: 04/30/20ACCOUNT NO: [id number] ROOM NO: G.5509 AGE: 59 REPORT TYPE: eELECTROCARDIOGRAM REPORT SEX: M ADMITTING PHYSICIAN:Kyung eBdoya MD ATTENDING PHYSICIAN:Kyung Bedoya MD Order:[id number] Reason : SOB Test Date/Time Stamp:WedMay 01 2020 06:49:06Blood Pressure : / mmHGVent. Rate : 075 BPM Atrial Rate : 075 BPM P-R Int : 154 ms QRS Dur : 094 ms QT Int : 396 ms P-R-T Axes : 079 101 -05 degrees QTc Int : 442 ms Normal sinus rhythmRightward axisSeptal infarct , age undeterminedT wave abnormality, consider inferior ischemiaAbnormal ECGWhen compared with ECG of 30-APR-2020 17:27,Significant changes have occurredConfirmed by MD JUMA, JUMA ([id number]) on 05/01/2020 11:49:25 PM Referred By: Self Referred Confirmed by:JUMA DENNISON MD at 3644 PATIENT NAME: DUSTY FRANCOIS .[id number] Available for patient [id number]:49:44 [facility] 2020-05-01 00:54:00 [id number]:54:0006 [address] [place] [id number] PATIENT NAME: DUSTY FRANCOIS ADMIT DATE: 04/30/20ACCOUNT NO: [id number] ROOM NO: G.5509 AGE: 59 REPORT TYPE: eELECTROCARDIOGRAM REPORT SEX: M ADMITTING PHYSICIAN:Kyung Bedoya MD ATTENDING PHYSICIAN:Kyung Bedoya MD Order:[id number] Reason : SOB Test Date/Time Stamp:WedMay 01 2020 00:54:15Blood Pressure : / mmHGVent. Rate : 065 BPM Atrial Rate : 065 BPM P-R Int : 160 ms QRS Dur : 090 ms QT Int : 412 ms P-R-T Axes : 069 016 -10 degrees QTc Int : 428 ms Normal sinus rhythmPossible Left atrial enlargementBorderline ECGWhen compared with ECG of 30-APR-2020 17:27,No significant change was foundConfirmed by MD JUMA, JUMA ([id number]) on 05/01/2020 11:49:16 PM Referred By: Self Referred Confirmed by:JUMA DENNISON MD at 0861 PATIENT NAME: DUSTY FRANCOIS .[id number] Available for patient [id number]:49:34 HCACL 2020-04-30 17:40:00 [id number]:40:00 H [facility] PROVID[facility] REPORTREPORT#:[id number] REPORT STATUS: SignedDATE:04/30/20 TIME: 1740 PATIENT: DUSTY FRANCOIS UNIT #: [id number]#: [id number] ROOM[facility]BED: [facility]AGE: 59 SEX: M PCP PHYS: Shawanda Wild R DOSERVICE AUTHOR: Case Decker DO * ALL edits or amendments must be made on the electronic/computer document * HPI-Chest Pain 40 and Over GeneralInitial Greet Date/Time 04/30/20 1725PCPDr Soo PCPDr Ra - cardiologyDr Flip nephrologyDr edith - nephrology PresentationChief Complaint Shortness of breathSudden in Onset? No)( Migration/Movement None Free Text HPI NotesFree Text HPI Samez01U with PMHx of CAD stroke CKD , HTN, DM c/o SOB/exertional dyspnea x 3 days. Pt takes brilinta 90mg BID, ASA 81mg QD, and lasix (40mg Q daily) and compliantwith htose meds. Denies fevers chills or night sweats. Deniea pain. deniex sick contacts or recent travel. Risk-Chest Pain 40 and Over Risk Stratification)( Coronary Artery Disease Risk factors reviewed)( Thoracic Aortic Dissection Risk factors reviewed)( Pulmonary Embolism Risk factors reviewed)( AMI-Aspirin Aspirin Last 24 Hrs Not indicated)( HEART for MACE )( HEART for MACE Response Value History Low index of suspicion 0 ECG Interpretation Normal ECG 0 Age Age 45 - 65 1 Risk Factors for CAD 1-2 CAD risk factors 1 Troponin < or = to NL troponin 0 Total 2 Review of Systems ROS StatementsAll systems rev neg except as marked.Complete sys rev neg except as marked. Focused Review of SystemsRespiratoryReports: Shortness of breath. Denies: Pleuritic pain, Wheezing. Past Medical History - AdultStated Complaint CHEST PAIN/SOB. NO HISTORY OF CHFAllergiesCoded Allergies:No Known Allergies (09/15/19) Home MedicationsActive ScriptsTICAGRELOR (BRILINTA) 90 MG PO BID TICAGRELOR (BRILINTA) 90 MG PO BID #180 TAB Ref 4 Prov: 06/13/19ASPIRIN 81 MG PO DAILY ASPIRIN 81 MG PO DAILY #90 TAB Ref 4 Prov: 06/13/19 Reported MedicationsINSULIN DETEMIR (LEVEMIR) 10 UNITS SUBQ Q12HR FUROSEMIDE (LASIX) 40 MG PO BID PRN EDEMA ATORVASTATIN (LIPITOR) 80 MG PO DAILY TAMSULOSIN ER (FLOMAX) 0.4 MG PO BEDTIME INSULIN LISPRO PROTAM/INSULIN LISPRO (HumaLOG Mix 50/50 KWIKPEN) 0 UNITS SUBQ BID POLYETHYLENE GLYCOL 3350 (MIRALAX) 17 GM PO DAILY ISOSORBIDE DINITRATE (ISORDIL) 10 MG PO BID CHOLECALCIFEROL (VITAMIN D3) (VITAMIN D3) 50,000 UNIT PO Q7D [repatha] Physical Exam Vital SignsVital SignsFirst Documented: Result Date Time Pulse Ox 99 04/30 1728 B/P 154/85 04/30 1728 B/P Mean 108 04/30 1728 O2 Delivery Room air 04/30 1728 Temp 36.8 04/30 1728 Pulse 74 06/16 1728 Resp 04/30 Last Documented: Result Date Time Pulse Ox 99 04/30 1933 B/P 191/98 04/30 1933 B/P Mean 129 04/30 1933 O2 Delivery Room air 04/30 1933 Pulse 74 04/30 1933 Resp 18 04/30 1933 Temp 36.8 04/30 1728 Review of Vital Signs Reviewed Focused PEGeneral/Const General/Const Awake, Alert, No acute distress, Well appearing, Well developed, Well hydrated, Well nourished, Cooperative, Not toxic appearingEyes Eyes PERRLMS Neck Neck SuppleResp/Chest Respiratory/Chest Breath sounds NL, Breath sounds = bilat, No respiratory distress, No ralesCardiovascular Cardiovascular Heart rate NL, Regular rhythm, Heart sounds NLAbdomen/GI Abdomen/GI Soft, Non-tender, No guarding, No reboundMS Back Back Painless range of motionSkin Skin Color NL, No rash, Warm, Dry, IntactNeurologic Neurologic Oriented X3, Speech NL, No motor deficits, No sensory deficits, CNII - XII intact, Cerebellar NL, Memory NL, Gait NLPsychiatric Psychiatric Affect NL, Mood NL Additional PEEars/Nose/Throat Ears/Nose/Throat Airway patent Interpretation Diagnostics Lab Results InterpretationResultsLaboratory Tests 04/30/20 1745:[Embedded Image Not Available]Laboratory Tests: 04/30 04/30 04/30 04/30 1755 1745 1745 1745Chemistry Sodium (134 - 147 mEq/L) 138 Potassium (3.4 - 5.0 mEq/L) 5.5 H Chloride (100 - 108 mEq/L) 113 H Carbon Dioxide (21 - 33 mEq/L) 19 L Anion Gap (0 - 20) 12 BUN (7 - 18 mg/dL) 48 H Creatinine (0.6 - 1.3 mg/dL) 2.2 H Glomerular Filtr Rate (90 - 95) 37.5 L Glucose (70 - 110 mg/dL) 202 H Calcium (8.0 - 10.5 mg/dL) 8.8 Troponin I (0.000 - 0.045 ng/mL) < 0.015 Rap B-Natriuretic Pept (0.0 - 100.0 pg/mL) 69.3Coagulation D-Dimer (<=500 ng/mlFEU) 576 *HHematology WBC (4.5 - 11.0 x10 3/uL) 6.37 RBC (4.00 - 5.60 x10 6/uL) 3.43 L Hgb (12.5 - 16.9 g/dL) 9.5 L Hct (37.5 - 50.7 %) 30.3 L MCV (81.0 - 99.0 fL) 88.3 MCH (27.0 - 33.0 pg) 27.7 MCHC (33.0 - 37.0 g/dL) 31.4 L RDW (11.5 - 14.5 %) 15.6 H Plt Count (150 - 400 x10 3/uL) 272 MPV (7.0 - 9.0 fL) 10.5 H Neut % (Auto) (56.0 - 77.0 %) 53.7 L Lymph % (Auto) (14.0 - 32.0 %) 31.1 Highland % (Auto) (4.8 - 9.0 %) 11.3 H Eos % (Auto) (0.3 - 3.7 %) 3.1 Baso % (Auto) (0.0 - 2.0 %) 0.3 Neut # (Auto) (2.0 - 7.6 x10 3/uL) 3.42 Lymph # (Auto) (1.0 - 3.8 x10 3/uL) 1.98 Highland # (Auto) (0.1 - 0.8 x10 3/uL) 0.72 Eos # (Auto) (0.0 - 0.2 x10 3/uL) 0.20 Baso # (Auto) (0.0 - 0.2 x10 3/uL) 0.02 Abs Immat Gran (auto) (0.00 - 0.03 x10 3/uL) 0.03 Add Manual Diff NO Immature Gran % (0.0 - 2.0 %) 0.5 Nucleated RBC % (0 - 0 %) 0.0 Nucleated RBCs # (Man) (0.0 - 0.1 x10 3/uL) 0.00Serology Nasal/Oral COVID-19 PCR (Negative) Negative Recent Impressions:RADIOLOGY - XR CHEST 1 V 04/30 1810 Report Impression - Status: SIGNED Entered: 04/30/20201817 Impression: Chest, single view. Eventration of the righthemidiaphragm. No consolidation, pleural effusion, or pneumothorax. Cardiomediastinal silhouette is unremarkable. No acute osseousabnormality. SL: [id number] By: [email or web address] Veronica Hanson M.D.NUCLEAR MEDICINE - DE LUNG PERF PARTICULATE 04/30 2058 Report Impression - Status: SIGNED Entered: 04/30/20202157 IMPRESSION:1. Distribution of the pulmonary perfusion agent appears normal withno perfusion defects detected. The examination is very lowprobability for pulmonary embolism. SL: 131Impression By: AlenaDMM Veronica Griffith M.D. ECG #1 InterpretationECG Documented in MUSE YesDate 04/30/20Time 1727Interpreted by ED physicianNL ECG Interpretation Normal rate, Normal sinus rhythm, No acute ischemic changes, No STEMI, Normal axisRate 75 Re-Evaluation MDM Re-Evaluation/Progress #1Text/Dict Notepatient was given IM toradol at this time. Time of Re-Eval 175 Re-Evaluation/Progress #2Text/Dict Noteelevated d-dimer but O2 sats within nml limits. Pt speaking in complete sentences. troponin negative. will admit for cardiology eval. VQ scan ordered. will order brilinta. Time of Eval 2116 ED CourseMedication(s) OrderedMedication(s) Ordered:Blood Formation,Coagulation Sig/Jean Carlos Start time Last Medication Dose Route Stop Time Status Admin Ticagrelor 90 MG BID 04/30 2145 AC PO 05/01 0901 Central Nervous System Agents Sig/Jean Carlos Start time Last Medication Dose Route Stop Time Status Admin Hydrocodone Bitart/ 1 TAB Q4H PRN PRN 04/30 214 AC Acetaminophen PO 05/01 2032 Aspirin 81 MG X1ED STA 04/30 2136 DC PO 04/30 2137 Electrolytic, Caloric, And Alex Sig/Jean Carlos Start time Last Medication Dose Route Stop Time Status Admin Sodium Chloride 0 ASDIR PRN 04/30 1800 AC IV 05/01 1655 Gastrointestinal Drugs Sig/Jean Carlos Start time Last Medication Dose Route Stop Time Status Admin Ondansetron HCl 4 MG Q6H PRN PRN 04/30 214 AC IV 05/01 2032 ConsultationConsultation Referral/Consult Name Yvette Rae MD Laminating Machine Tender Called Cardiology Requested Call Time 2117 Requested Call Date 04/30/20 Call Returned Call returned Call Returned Time 2117 Call Returned Date 04/30/20 Laminating Machine Tender Will see patient Patient Discharge Departure Vital Signs/ConditionVital SignsFirst Documented: Result Date Time Pulse Ox 99 04/30 1728 B/P 154/85 04/30 1728 B/P Mean 108 04/30 1728 O2 Delivery Room air 04/30 1728 Temp 36.8 04/30 1728 Pulse 74 04/30 1728 Resp 18 04/30 1728 Last Documented: Result Date Time Pulse Ox 99 04/30 1933 B/P 191/98 04/30 1933 B/P Mean 129 04/30 193 O2 Delivery Room air 04/30 193 Pulse 74 04/30 1933 Resp 18 04/30 1933 Temp 36.8 04/30 1728 All vital signs available at the time of this entry have been reviewed. Clinical ImpressionClinical ImpressionPrimary Impression: Exertional dyspneaSecondary Impressions: Elevated d-dimer, Lab test negative for COVID-19 virus Disposition DecisionAdmit Admit Physician Hospitalist Request Time 2116 Request Date 04/30/20 )( Admission Accepts Yes )( Accepted Time 2116 )( Accepted Date 04/30/20 Call Information will see patient Discharge/Care PlanCounseled Regarding Diagnosis, Lab results, Imaging studies, Need for admissionReferralsPeck-Shawanda Hancock DO (PCP/Family) at 2344RPT #:[id number] OF REPORTEDEmergency department [id number]:40:00G.[id number] able for patient [id number]:44:58 [facility]L 2019-10-03 19:49:00 [id number]:49:00 H [facility])EMERGENCY PROVIDER REPORTREPORT#:[id number] REPORT STATUS: SignedDATE:10/03/19 TIME:1948 PATIENT: DUSTY FRANCOIS UNIT #: [id number]#: [id number] ROOM/BED:: 62 AGE: 59 SEX: M PCP PHYS: Shawanda Wild DOSERVICE AUTHOR: Belkis Coelho * ALL edits or amendments must be made on the electronic/computer document * HPI-General Illness Free Text HPI NotesFree Text HPI Notes59 with PMH of CVA and [place] x 2 presents to the with by walk-in for a chief complaint of left- sided facial droop x 3 days. Patient is alert and oriented x 4. and in no acute distress. Paiten has 5 out of 5 strength on bilateral upper and lower extrmeities. Patient denies any LOC, SOB, blurry vision, dizziness, chest pain or headache. GeneralConfirmed Patient YesPatient Type New patientInitial Greet Date/Time 10/03/19 1820 PresentationChief Complaint __ (facial droop)Hx Obtained From Patient, Family, Prior medical recordsSudden in Onset? NoOnset Occurred Days ago (3)Symptom Duration Waxes and wanes, Lasting days (3)Caused by No trauma by historyLocation left sided droopQuality Heaviness, PressureRadiationDoes not radiate. No: Arm R, Arm L, Shoulder R, Shoulder L, Jaw, Back, Abdomen,Leg R, Leg L. Severity: Onset ModerateSeverity: Current ModerateAssociated withDenies: Abdominal pain, Anorexia, Aura, Bleeding, Bruising, Chest pain, Congestion, Cough, Diaphoresis, Difficulty breathing, Difficulty swallowing, Discharge, Dizziness, Fever, Headache, Inability to bear weight, Itching, Joint pain, Loss of consciousness, Nasal discharge, Nausea, Neck pain, Numb extremities, Off balance, Pain, Pain on walking, Rash, Shortness of breath, Speech abnormal, Syncope, Vision change, Vomiting, Weak extremity, Weakness. Associated Other Pt denies other symptomsExacerbated by NothingRelieved by Nothing ContextImmunization Status General All up to date Review of Systems ROS StatementsAll systems rev neg except as marked.Complete sys rev neg except as marked. Review of SystemsConstitutionalDenies: Chills, Fatigue, Fever, Lethargy, Malaise, Recent wt loss, Weakness - generalized. EyesDenies: Blurred R, Blurred L, Blurred bilat, Diplopia, Discharge R, Discharge L,Discharge bilat, Eye pain R, Eye pain L, Eye pain bilat, Photophobia, Redness R,Redness L, Redness bilat, Swelling R, Swelling L, Swelling bilat, Visual loss R,Visual loss L, Visual loss bilat, Yellow R, Yellow L, Yellow bilat. Ears/Nose/ThroatDenies: Ear drainage R, Ear drainage L, Ear drainage bilat, Ear ringing R, Ear ringing L, Ear ringing bilat, Earache R, Earache L, Earache bilat, Hearing loss R, Hearing loss L, Hearing loss bilat, Mouth pain, Nasal congestion, Nose bleeding, Sinus problem, Sore throat, Throat pain, Throat swelling, Tongue pain,Tongue swelling, Toothache, Voice change. RespiratoryDenies: Cough, non-productive, Cough, productive, Dyspnea on exertion, Hemoptysis, Parox nocturnal dyspnea, Pleuritic pain, Shortness of breath, Wheezing. CardiovascularDenies: Chest pain, Dyspnea on exertion, Edema, Orthopnea, Palpitations, Parox nocturnal dyspnea, Syncope. GIDenies: Abdominal pain, Anorexia, Belching, Bloody/tarry stool, Constipation, Diarrhea, Dysphagia, Hematemesis, Hematochezia, Mucousy stool, Melena, Nausea, Rectal pain, Vomiting. MaleDenies: Dysuria, Flank pain, Hematuria, Incontinence, Nocturia, Penile discharge, Penile lesion, Scrotal swelling, Testicular pain, Testicular swelling, Urinaryfrequency, Urinary urgency, Urination decreased, Urination increased. MusculoskeletalReports: Myalgia. HematologicDenies: Adenopathy, Bleeding, Bruising, Petechiae. EndocrineDenies: Cold intolerance, Heat intolerance, Polydipsia, Polyphagia, Polyuria, Weight gain, Weight loss. SkinDenies: Abrasion, Abscess, Burn, Contusion, Diaphoresis, Erythema, Itching, Jaundice, Laceration, Rash, Swelling, Ulceration. Allergy/ImmunDenies: Allergic reaction, Anaphylaxis, Hives, Itching, Rhinorrhea, Sneezing. NeurologicDenies: Abnormal movement, Bladder dysfunction, Bowel dysfunction, Change LOC, Confusion, Dizziness, Focal weakness, Generalized weakness, Headache, Lightheaded, Numbness, Problem walking, Seizure, Shaking, Slurred speech, Spinning sensation, Syncope, Tingling, Unable to speak, Vision change. PsychiatricDenies: Agitation, Anxiety, Change mental status, Confusion, Delusional, Depression, Hallucinations, auditory, Hallucinations, visual, Homicidal ideation, Hostile, Insomnia, Stress, Suicidal ideation, Unable to control self. Past Medical History - AdultStated Complaint FACIAL DROOPINGAllergiesCoded Allergies:No Known Allergies (09/15/19) Home MedicationsActive ScriptsTICAGRELOR (BRILINTA) 90 MG PO BID TICAGRELOR (BRILINTA) 90 MG PO BID #180 TAB Ref 4 Prov: 06/13/19ASPIRIN 81 MG PO DAILY ASPIRIN 81 MG PO DAILY #90 TAB Ref 4 Prov: 06/13/19 Reported MedicationsINSULIN DETEMIR (LEVEMIR) 10 UNITS SUBQ Q12HR FUROSEMIDE (LASIX) 40 MG PO BID PRN EDEMA ATORVASTATIN (LIPITOR) 80 MG PO DAILY TAMSULOSIN ER (FLOMAX) 0.4 MG PO BEDTIME INSULIN LISPRO PROTAM/INSULIN LISPRO (HumaLOG Mix 50/50 KWIKPEN) 0 UNITS SUBQ BID POLYETHYLENE GLYCOL 3350 (MIRALAX) 17 GM PO DAILY ISOSORBIDE DINITRATE (ISORDIL) 10 MG PO BID CHOLECALCIFEROL (VITAMIN D3) (VITAMIN D3) 50,000 UNIT PO Q7D [repatha] Review of Nursing Notes Rev avail, and agreePast Medical History:Reports: Diabetes mellitus, Kidney disease/stones (Chronic kidney disease), Prior [place]. Additional Medical Historygastroparesis, CVAAdditional Surgical HistoryToe amputation, x2 cardiac stentsAdditional Family HistoryBrother and Father CADAlcohol Use Denies EtOH useDrug Use Denies recreational drugsSmoking status for patients 13 years old or older: Never Smoker Physical Exam Vital SignsVital SignsFirst Documented: Result Date Time Pulse Ox 97 10/03 1820 B/P 144/86 10/03 1820 B/P Mean 105 10/03 1820 O2 Delivery Room air 10/03 1820 Temp 36.8 10/03 1820 Pulse 93 10/03 1820 Resp 18 10/03 1820 Last Documented: Result Date Time Pulse Ox 98 10/03 2142 B/P 204/109 10/03 2142 B/P Mean 140 10/03 2142 O2 Delivery Room air 10/03 2142 Temp 36.8 10/03 2142 Pulse 81 10/03 2142 Resp 12 10/03 2142 Review of Vital Signs Reviewed Basic Physical ExamBasic PE GEN: Well appearing/NAD, HEAD: Atraumatic/NC, EYES: PERRL, conj clear, ENT: Membranes moist, NECK: Supple, RESP: No resp distress, CV: Reg rate rhythm, ABD: Soft/non-tender, EXT: No gross abnormality, SKIN: No rashes, warm/dry, NEURO: alert oriented, NEURO: gross movement NL, PSYCH: NL thought content Physical ExamGeneral/Const General/Const Awake, Alert, No acute distress, Well appearingMS Head Text/Dict Notestoetal left side of face is numb. Patietn alert and oriented x 4. NADEyes Eyes Atraumatic, PERRL, EOMI, No nystagmusEars/Nose/Throat Ears/Nose/Throat Atraumatic, Airway patent, Mucous membranes moist, Pharynx NLMS Neck Neck Atraumatic, Supple, No meningismus, Full range of motionResp/Chest Respiratory/Chest Atraumatic, Breath sounds NL, Breath sounds = bilat, No respiratory distressCardiovascular Cardiovascular Heart rate NL, Regular rhythm, Heart sounds NL, No murmurs, Cap refill not delayed, Peripheral circulation NLAbdomen/GI Abdomen/GI Atraumatic, Soft, Non-tender, McBurney's non-tenderMS Back Back Atraumatic, Inspection NL, Full range of motion, Painless range of motionLymphatic Lymphatic No gross adenopathyMS Upper Extrem Upper Extremity/MS Atraumatic, Inspection NL, Full range of motion, No swellingMS Wrist/Hand Wrist/Hand Atraumatic, Inspection NL, Full range of motion, No swellingMS Lower Extrem Lower Ext/Pelvis/MS Atraumatic, Inspection NL, Full range of motion, No swellingMS Ankle/Foot Ankle/Foot Atraumatic, Inspection NL, Full range of motion, No swellingSkin Skin Atraumatic, Color NL, No rash, WarmNeurologic Neurologic Oriented X3, Speech NL, No motor deficits, No sensory deficitsPsychiatric Psychiatric Affect NL, Mood NL, Judgment/insight NL, Thought content NL Free Text PE NotesFree Text PE NotesNIH= 1. Interpretation Diagnostics Lab Results InterpretationResultsLaboratory Tests 11/19/19 1844:[Embedded Image Not Available]Laboratory Tests: 10/03 Chemistry Sodium (134 - 147 mmol/L) 140 Potassium (3.4 - 5.0 mmol/L) 4.5 Chloride (100 - 108 mmol/L) 108 Carbon Dioxide (21 - 32 mmol/L) 27 Anion Gap (4.0 - 15.0 GAP calc) 5.0 BUN (7 - 18 MG/DL) 36 H Creatinine (0.8 - 1.3 MG/DL) 1.8 H Glomerular Filtr Rate (>60 estGFR) 50 L Glucose (70 - 110 MG/DL) 199 H Calcium (8.5 - 10.1 MG/DL) 8.4 L Total Bilirubin (0.2 - 1.2 MG/DL) 0.20 AST (15 - 37 Unit/L) 30 ALT (12 - 78 Unit/L) 21 Total Alk Phosphatase (50 - 136 Unit/L) 88 Troponin I (0.000 - 0.045 NG/ML) 0.019 Total Protein (6.4 - 8.2 G/DL) 5.8 L Albumin (3.4 - 5.0 G/DL) 2.5 L Globulin (GM/dL) 3.3 Albumin/Globulin Ratio (1.2 - 2.2 RATIO) 0.8 L Hematology WBC (3.5 - 11.0 K/mm3) 6.1 RBC (4.70 - 6.10 M/mm3) 3.47 L Hgb (12.3 - 15.9 G/DL) 9.4 L Hct (35.8 - 46.7 %) 29.0 L MCV (86.3 - 98.9 Fl) 83.6 L MCH (28.9 - 34.4 pg) 27.1 L MCHC (32.1 - 34.5 G/DL) 32.4 RDW (11.5 - 14.5 SD) 16.3 H Plt Count (150 - 450 K/mm3) 334.0 MPV (7.0 - 9.6 fL) 9.50 Neut % (Auto) (40 - 76 %) 55.0 Lymph % (Auto) (20.5 - 51.1 %) 33.8 Highland % (Auto) (1.7 - 9.3 %) 8.7 Eos % (Auto) (0.0 - 6.0 %) 2.3 Baso % (Auto) (0.0 - 2.0 %) 0.2 Neut # (Auto) (1.8 - 7.6 K/mm3) 3.33 Lymph # (Auto) (0.6 - 3.0 K/mm3) 2.1 [place]land # (Auto) (0.2 - 1.5 K/mm3) 0.5 Eos # (Auto) (0.0 - 0.4 K/mm3) 0.1 Baso # (Auto) (0.0 - 0.2 K/mm3) 0.0 Add Manual Diff (CRITERIA DIFF/SCN) NO Toxicology Urine Opiates Screen (<2000 NG/ML SCcutoff) NEGATIVE Urine Methadone Screen (<300 NG/ML SCcutoff) NEGATIVE Urine Barbiturates (<200 NG/ML SCcutoff) NEGATIVE Ur Phencyclidine Scrn (<25 NG/ML SCcutoff) NEGATIVE Ur Amphetamines Screen (<1000 NG/ML SCcutoff) NEGATIVE U Benzodiazepines Scrn (<200 NG/ML SCcutoff) NEGATIVE Urine Cocaine Screen (<300 NG/ML SCcutoff) NEGATIVE Urine Cannabinoids (<50 NG/ML SCcutoff) NEGATIVE Urines Urine Color (YEL/STRAW discript) YELLOW Urine Appearance (CLEAR discript) HAZY H Urine pH (5.0 - 7.0 pH UNITS) 6.0 Ur Specific Center Line (1.005 - 1.030 SG) 1.025 Urine Protein (NEG mg/dL) 3+ H Urine Glucose (UA) (NEG mg/dL) TRACE Urine Ketones (NEG mg/dL) NEGATIVE Urine Blood (NEG mg/DL) 2+ H Urine Nitrite (NEG SCREEN) NEGATIVE Urine Bilirubin (NEG mg/dL) NEGATIVE Urine Urobilinogen (<2.0 mg/dL) 0.2 Ur Leukocyte Esterase (NEGATIVE Leuk/mcL) NEGATIVE Urine RBC (0 - 3 #RBC/HPF) 3-5 H Urine WBC (0 - 3 #WBC/HPF) 1-3 Urine Bacteria (NONE - TRACE /HPF) TRACE Urine Culture Screen (Culture CHK Criteria) NO, WBC<10 Recent Impressions:RADIOLOGY - XR CHEST 1 V 10/03 1901 Report Impression - Status: SIGNED Entered: 10/03/20191901 Impression: 1. No radiographic evidence of acute cardiopulmonary disease. Impression By: Jin Hurtado M.D. Point of Care TestingPulse Oximetry Pulse Ox % 97 On: Room air Interpretation Interpreted by me, Pulse oximetry normal Time 1820 Re-Evaluation MDM Free Text MDM NotesFree Text MDM NotesPatient also seen by Dr. Garnica personally to rule out stroke. 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 ED CourseMedication(s) OrderedMedication(s) Ordered:Electrolytic, Caloric, And Alex Sig/Jean Carlos Start time Last Medication Dose Route Stop Time Status Admin Sodium Chloride 1,000 ML ONCE ONE 10/03 1915 DC 10/03 IV 10/03 Hormones And Synthetic Substit Sig/Jean Carlos Start time Last Medication Dose Route Stop Time Status Admin Prednisone 50 MG X1ED STA 10/03 2011 DC 10/03 PO 10/03 Patient Discharge Departure Vital Signs/ConditionVital SignsFirst Documented: Result Date Time Pulse Ox 97 10/03 1820 B/P 144/86 10/03 1820 B/P Mean 105 10/03 1820 O2 Delivery Room air 10/03 1820 Temp 36.8 10/03 1820 Pulse 93 10/03 1820 Resp 18 10/03 1820 Last Documented: Result Date Time Pulse Ox 98 10/03 214 B/P 204/109 10/03 2142 B/P Mean 140 10/03 2142 O2 Delivery Room air 10/03 2142 Temp 36.8 10/03 2142 Pulse 81 10/03 2142 Resp 12 10/03 2142 All vital signs available at the time of this entry have been reviewed. Condition Improved, Stable Clinical ImpressionClinical ImpressionPrimary Impression: Ryan's palsyTime of Impression 2137 Disposition DecisionDischarge )( Discharged to Home Yes )( Time 2137 )( Date 10/03/19 Discharge/Care PlanCounseled Regarding Diagnosis, Lab results, Imaging studies, Prescriptions, Needfor follow-up, When to return to EDPrescriptionsprednisone 20mg po daily x 7 daysPrescriptions Reviewed Risks, Benefits, Alternative treatment at [facility] #: [id number] OF REPORTEDEmergency department [id number]:49:00L.[id number] able for patient [id number]:14:55 [facility] 2019-10-03 19:49:00 [id number]:49:00 H [facility])EMERGENCY PROVIDER REPORTREPORT#:[id number] REPORT STATUS: SignedDATE:10/03/19 TIME:1948 PATIENT: DUSTY FRANCOIS UNIT #: [id number]#: [id number] ROOM/BED:: 62 AGE: 59 SEX: M PCP PHYS: Shawanda Wild DOSERVICE AUTHOR: Belkis Coelho * ALL edits or amendments must be made on the electronic/computer document * HPI-General Illness Free Text HPI NotesFree Text HPI Notes59 with PMH of CVA and [place] x 2 presents to the with by walk-in for a chief complaint of left- sided facial droop x 3 days. Patient is alert and oriented x 4. and in no acute distress. Paiten has 5 out of 5 strength on bilateral upper and lower extrmeities. Patient denies any LOC, SOB, blurry vision, dizziness, chest pain or headache. GeneralConfirmed Patient YesPatient Type New patientInitial Greet Date/Time 10/03/191819 PresentationChief Complaint __ (facial droop)Hx Obtained From Patient, Family, Prior medical recordsSudden in Onset? NoOnset Occurred Days ago (3)Symptom Duration Waxes and wanes, Lasting days (3)Caused by No trauma by historyLocation left sided droopQuality Heaviness, PressureRadiationDoes not radiate. No: Arm R, Arm L, Shoulder R, Shoulder L, Jaw, Back, Abdomen,Leg R, Leg L. Severity: Onset ModerateSeverity: Current ModerateAssociated withDenies: Abdominal pain, Anorexia, Aura, Bleeding, Bruising, Chest pain, Congestion, Cough, Diaphoresis, Difficulty breathing, Difficulty swallowing, Discharge, Dizziness, Fever, Headache, Inability to bear weight, Itching, Joint pain, Loss of consciousness, Nasal discharge, Nausea, Neck pain, Numb extremities, Off balance, Pain, Pain on walking, Rash, Shortness of breath, Speech abnormal, Syncope, Vision change, Vomiting, Weak extremity, Weakness. Associated Other Pt denies other symptomsExacerbated by NothingRelieved by Nothing ContextImmunization Status General All up to date Review of Systems ROS StatementsAll systems rev neg except as marked.Complete sys rev neg except as marked. Review of SystemsConstitutionalDenies: Chills, Fatigue, Fever, Lethargy, Malaise, Recent wt loss, Weakness - generalized. EyesDenies: Blurred R, Blurred L, Blurred bilat, Diplopia, Discharge R, Discharge L,Discharge bilat, Eye pain R, Eye pain L, Eye pain bilat, Photophobia, Redness R,Redness L, Redness bilat, Swelling R, Swelling L, Swelling bilat, Visual loss R,Visual loss L, Visual loss bilat, Yellow R, Yellow L, Yellow bilat. Ears/Nose/ThroatDenies: Ear drainage R, Ear drainage L, Ear drainage bilat, Ear ringing R, Ear ringing L, Ear ringing bilat, Earache R, Earache L, Earache bilat, Hearing loss R, Hearing loss L, Hearing loss bilat, Mouth pain, Nasal congestion, Nose bleeding, Sinus problem, Sore throat, Throat pain, Throat swelling, Tongue pain,Tongue swelling, Toothache, Voice change. RespiratoryDenies: Cough, non-productive, Cough, productive, Dyspnea on exertion, Hemoptysis, Parox nocturnal dyspnea, Pleuritic pain, Shortness of breath, Wheezing. CardiovascularDenies: Chest pain, Dyspnea on exertion, Edema, Orthopnea, Palpitations, Parox nocturnal dyspnea, Syncope. GIDenies: Abdominal pain, Anorexia, Belching, Bloody/tarry stool, Constipation, Diarrhea, Dysphagia, Hematemesis, Hematochezia, Mucousy stool, Melena, Nausea, Rectal pain, Vomiting. MaleDenies: Dysuria, Flank pain, Hematuria, Incontinence, Nocturia, Penile discharge, Penile lesion, Scrotal swelling, Testicular pain, Testicular swelling, Urinaryfrequency, Urinary urgency, Urination decreased, Urination increased. MusculoskeletalReports: Myalgia. HematologicDenies: Adenopathy, Bleeding, Bruising, Petechiae. EndocrineDenies: Cold intolerance, Heat intolerance, Polydipsia, Polyphagia, Polyuria, Weight gain, Weight loss. SkinDenies: Abrasion, Abscess, Burn, Contusion, Diaphoresis, Erythema, Itching, Jaundice, Laceration, Rash, Swelling, Ulceration. Allergy/ImmunDenies: Allergic reaction, Anaphylaxis, Hives, Itching, Rhinorrhea, Sneezing. NeurologicDenies: Abnormal movement, Bladder dysfunction, Bowel dysfunction, Change LOC, Confusion, Dizziness, Focal weakness, Generalized weakness, Headache, Lightheaded, Numbness, Problem walking, Seizure, Shaking, Slurred speech, Spinning sensation, Syncope, Tingling, Unable to speak, Vision change. PsychiatricDenies: Agitation, Anxiety, Change mental status, Confusion, Delusional, Depression, Hallucinations, auditory, Hallucinations, visual, Homicidal ideation, Hostile, Insomnia, Stress, Suicidal ideation, Unable to control self. Past Medical History - AdultStated Complaint FACIAL DROOPINGAllergiesCoded Allergies:No Known Allergies (09/15/19) Home MedicationsActive ScriptsTICAGRELOR (BRILINTA) 90 MG PO BID TICAGRELOR (BRILINTA) 90 MG PO BID #180 TAB Ref 4 Prov: 06/13/19ASPIRIN 81 MG PO DAILY ASPIRIN 81 MG PO DAILY #90 TAB Ref 4 Prov: 06/13/19 Reported MedicationsINSULIN DETEMIR (LEVEMIR) 10 UNITS SUBQ Q12HR FUROSEMIDE (LASIX) 40 MG PO BID PRN EDEMA ATORVASTATIN (LIPITOR) 80 MG PO DAILY TAMSULOSIN ER (FLOMAX) 0.4 MG PO BEDTIME INSULIN LISPRO PROTAM/INSULIN LISPRO (HumaLOG Mix 50/50 KWIKPEN) 0 UNITS SUBQ BID POLYETHYLENE GLYCOL 3350 (MIRALAX) 17 GM PO DAILY ISOSORBIDE DINITRATE (ISORDIL) 10 MG PO BID CHOLECALCIFEROL (VITAMIN D3) (VITAMIN D3) 50,000 UNIT PO Q7D [repatha] Review of Nursing Notes Rev avail, and agreePast Medical History:Reports: Diabetes mellitus, Kidney disease/stones (Chronic kidney disease), Prior [place]. Additional Medical Historygastroparesis, CVAAdditional Surgical HistoryToe amputation, x2 cardiac stentsAdditional Family HistoryBrother and Father CADAlcohol Use Denies EtOH useDrug Use Denies recreational drugsSmoking status for patients 13 years old or older: Never Smoker Physical Exam Vital SignsVital SignsFirst Documented: Result Date Time Pulse Ox 97 10/03 1820 B/P 144/86 10/03 1820 B/P Mean 105 10/03 1820 O2 Delivery Room air 10/03 1820 Temp 36.8 10/03 1820 Pulse 93 10/03 1820 Resp 18 10/03 1820 Last Documented: Result Date Time Pulse Ox 98 10/03 2142 B/P 204/109 10/03 2142 B/P Mean 140 10/03 2142 O2 Delivery Room air 10/03 2142 Temp 36.8 10/03 2142 Pulse 81 10/03 2142 Resp 12 10/03 2142 Review of Vital Signs Reviewed Basic Physical ExamBasic PE GEN: Well appearing/NAD, HEAD: Atraumatic/NC, EYES: PERRL, conj clear, ENT: Membranes moist, NECK: Supple, RESP: No resp distress, CV: Reg rate rhythm, ABD: Soft/non-tender, EXT: No gross abnormality, SKIN: No rashes, warm/dry, NEURO: alert oriented, NEURO: gross movement NL, PSYCH: NL thought content Physical ExamGeneral/Const General/Const Awake, Alert, No acute distress, Well appearingMS Head Text/Dict Notestoetal left side of face is numb. Patietn alert and oriented x 4. NADEyes Eyes Atraumatic, PERRL, EOMI, No nystagmusEars/Nose/Throat Ears/Nose/Throat Atraumatic, Airway patent, Mucous membranes moist, Pharynx NLMS Neck Neck Atraumatic, Supple, No meningismus, Full range of motionResp/Chest Respiratory/Chest Atraumatic, Breath sounds NL, Breath sounds = bilat, No respiratory distressCardiovascular Cardiovascular Heart rate NL, Regular rhythm, Heart sounds NL, No murmurs, Cap refill not delayed, Peripheral circulation NLAbdomen/GI Abdomen/GI Atraumatic, Soft, Non-tender, McBurney's non-tenderMS Back Back Atraumatic, Inspection NL, Full range of motion, Painless range of motionLymphatic Lymphatic No gross adenopathyMS Upper Extrem Upper Extremity/MS Atraumatic, Inspection NL, Full range of motion, No swellingMS Wrist/Hand Wrist/Hand Atraumatic, Inspection NL, Full range of motion, No swellingMS Lower Extrem Lower Ext/Pelvis/MS Atraumatic, Inspection NL, Full range of motion, No swellingMS Ankle/Foot Ankle/Foot Atraumatic, Inspection NL, Full range of motion, No swellingSkin Skin Atraumatic, Color NL, No rash, WarmNeurologic Neurologic Oriented X3, Speech NL, No motor deficits, No sensory deficitsPsychiatric Psychiatric Affect NL, Mood NL, Judgment/insight NL, Thought content NL Free Text PE NotesFree Text PE NotesNIH= 1. Interpretation Diagnostics Lab Results InterpretationResultsLaboratory Tests 10/03/191843:[Embedded Image Not Available]Laboratory Tests: 10/03 Chemistry Sodium (134 - 147 mmol/L) 140 Potassium (3.4 - 5.0 mmol/L) 4.5 Chloride (100 - 108 mmol/L) 108 Carbon Dioxide (21 - 32 mmol/L) 27 Anion Gap (4.0 - 15.0 GAP calc) 5.0 BUN (7 - 18 MG/DL) 36 H Creatinine (0.8 - 1.3 MG/DL) 1.8 H Glomerular Filtr Rate (>60 estGFR) 50 L Glucose (70 - 110 MG/DL) 199 H Calcium (8.5 - 10.1 MG/DL) 8.4 L Total Bilirubin (0.2 - 1.2 MG/DL) 0.20 AST (15 - 37 Unit/L) 30 ALT (12 - 78 Unit/L) 21 Total Alk Phosphatase (50 - 136 Unit/L) 88 Troponin I (0.000 - 0.045 NG/ML) 0.019 Total Protein (6.4 - 8.2 G/DL) 5.8 L Albumin (3.4 - 5.0 G/DL) 2.5 L Globulin (GM/dL) 3.3 Albumin/Globulin Ratio (1.2 - 2.2 RATIO) 0.8 L Hematology WBC (3.5 - 11.0 K/mm3) 6.1 RBC (4.70 - 6.10 M/mm3) 3.47 L Hgb (12.3 - 15.9 G/DL) 9.4 L Hct (35.8 - 46.7 %) 29.0 L MCV (86.3 - 98.9 Fl) 83.6 L MCH (28.9 - 34.4 pg) 27.1 L MCHC (32.1 - 34.5 G/DL) 32.4 RDW (11.5 - 14.5 SD) 16.3 H Plt Count (150 - 450 K/mm3) 334.0 MPV (7.0 - 9.6 fL) 9.50 Neut % (Auto) (40 - 76 %) 55.0 Lymph % (Auto) (20.5 - 51.1 %) 33.8 Highland % (Auto) (1.7 - 9.3 %) 8.7 Eos % (Auto) (0.0 - 6.0 %) 2.3 Baso % (Auto) (0.0 - 2.0 %) 0.2 Neut # (Auto) (1.8 - 7.6 K/mm3) 3.33 Lymph # (Auto) (0.6 - 3.0 K/mm3) 2.1 Highland # (Auto) (0.2 - 1.5 K/mm3) 0.5 Eos # (Auto) (0.0 - 0.4 K/mm3) 0.1 Baso # (Auto) (0.0 - 0.2 K/mm3) 0.0 Add Manual Diff (CRITERIA DIFF/SCN) NO Toxicology Urine Opiates Screen (<2000 NG/ML SCcutoff) NEGATIVE Urine Methadone Screen (<300 NG/ML SCcutoff) NEGATIVE Urine Barbiturates (<200 NG/ML SCcutoff) NEGATIVE Ur Phencyclidine Scrn (<25 NG/ML SCcutoff) NEGATIVE Ur Amphetamines Screen (<1000 NG/ML SCcutoff) NEGATIVE U Benzodiazepines Scrn (<200 NG/ML SCcutoff) NEGATIVE Urine Cocaine Screen (<300 NG/ML SCcutoff) NEGATIVE Urine Cannabinoids (<50 NG/ML SCcutoff) NEGATIVE Urines Urine Color (YEL/STRAW discript) YELLOW Urine Appearance (CLEAR discript) HAZY H Urine pH (5.0 - 7.0 pH UNITS) 6.0 Ur Specific Center Line (1.005 - 1.030 SG) 1.025 Urine Protein (NEG mg/dL) 3+ H Urine Glucose (UA) (NEG mg/dL) TRACE Urine Ketones (NEG mg/dL) NEGATIVE Urine Blood (NEG mg/DL) 2+ H Urine Nitrite (NEG SCREEN) NEGATIVE Urine Bilirubin (NEG mg/dL) NEGATIVE Urine Urobilinogen (<2.0 mg/dL) 0.2 Ur Leukocyte Esterase (NEGATIVE Leuk/mcL) NEGATIVE Urine RBC (0 - 3 #RBC/HPF) 3-5 H Urine WBC (0 - 3 #WBC/HPF) 1-3 Urine Bacteria (NONE - TRACE /HPF) TRACE Urine Culture Screen (Culture CHK Criteria) NO, WBC<10 Recent Impressions:RADIOLOGY - XR CHEST 1 V 10/03 1901 Report Impression - Status: SIGNED Entered: 10/03/20191901 Impression: 1. No radiographic evidence of acute cardiopulmonary disease. Impression By: Jin Hurtado M.D. Point of Care TestingPulse Oximetry Pulse Ox % 97 On: Room air Interpretation Interpreted by me, Pulse oximetry normal Time 1819 Re-Evaluation MDM Free Text MDM NotesFree Text MDM NotesPatient also seen by Dr. Garnica personally to rule out stroke. 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 ED CourseMedication(s) OrderedMedication(s) Ordered:Electrolytic, Caloric, And Alex Sig/Jean Carlos Start time Last Medication Dose Route Stop Time Status Admin Sodium Chloride 1,000 ML ONCE ONE 10/03 1915 DC 10/03 IV 10/03 1916 193 Hormones And Synthetic Substit Sig/Jean Carlos Start time Last Medication Dose Route Stop Time Status Admin Prednisone 50 MG X1ED STA 10/03 2011 DC 10/03 PO 10/03 Patient Discharge Departure Vital Signs/ConditionVital SignsFirst Documented: Result Date Time Pulse Ox 97 10/03 1820 B/P 144/86 10/03 1820 B/P Mean 105 10/03 1820 O2 Delivery Room air 10/03 1820 Temp 36.8 10/03 1820 Pulse 93 10/03 1820 Resp 18 10/03 1820 Last Documented: Result Date Time Pulse Ox 98 10/03 2142 B/P 204/109 10/03 2142 B/P Mean 140 10/03 2142 O2 Delivery Room air 10/03 2142 Temp 36.8 10/03 2142 Pulse 81 10/03 2142 Resp 12 10/03 2142 All vital signs available at the time of this entry have been reviewed. Condition Improved, Stable Clinical ImpressionClinical ImpressionPrimary Impression: Ryan's palsyTime of Impression 2138 Disposition DecisionDischarge )( Discharged to Home Yes )( Time 2137 )( Date 10/03/19 Discharge/Care PlanCounseled Regarding Diagnosis, Lab results, Imaging studies, Prescriptions, Needfor follow-up, When to return to EDPrescriptionsprednisone 20mg po daily x 7 daysPrescriptions Reviewed Risks, Benefits, Alternative treatment at 1414 at 2352 RPT #: [id number] OF REPORTEDEmergency department [id number]:49:00L.[id number] able for patient syudOVIOFFSTTAYAMX2627-05-34E94:52:41 [facility] 2019-09-20 08:19:00 [id number]:19:00 [facility] Progress NoteREPORT#:[id number] REPORT STATUS: SignedDATE:09/20/19 TIME: 818 PATIENT: DUSTY FRANCOIS UNIT #: [id number]#: [id number] [address] [birth year] AGE: 59 SEX: M ATTEND: Darci Roldan [facility] AUTHOR: Tamara Oliveira MEDICATION ADMINISTRATION PROFESSIONAL-C * ALL edits or amendments must be made on the electronic/computer document * SubjectiveChief Complaint:Multivessel coronary artery diseaseHPI:s/p LHC with PCI to proximal and mid RCA Free Text Subj NotesFree Text Subj Notes:Patient is awake and alert, sitting up in bed. Patient denies chest pain, palpitations, or shortness of breath. No complaints or concerns overnight. Patient states he ambulated in room without problems. Objective GeneralVS/I O:24 hour I O ending at 0700: 09/20 0700 09/19 1900 Intake Total Output Total 400 Balance -400 Number Voids 1 Output, Urine 400 Vital Signs: Date Time Temp Pulse Resp B/P B/P Pulse O2 O2 Flow FiO2 Mean Ox Delivery Rate 09/20 0740 98.6 76 16 123/71 88.4 98 Room air 09/20 0406 97.7 82 16 122/67 85.0 96 Room air 09/19 2349 97.5 85 16 162/86 111.0 98 Room air 09/19 1958 97.9 99 16 168/81 110.4 98 Room air 09/19 1754 98.2 98 17 171/93 118.7 98 Room air Patient Weight Weight (lb): 179Weight (oz): 14.36Weight (kg): 81.600 Medications:Active Meds + DC'd Last 24 HrsAmlodipine Besylate 5 MG DAILY PO (CAN) Aspirin 81 MG DAILY PO Polyethylene Glycol 17 GM DAILY PO Atorvastatin Calcium 80 MG BEDTIME PO Hydralazine HCl 25 MG BID PO Insulin Glargine 10 UNIT Q12HR SUBQ Metoprolol Succinate 75 MG BID PO Tamsulosin HCl 0.4 MG BEDTIME PO Ticagrelor 90 MG BID PO Isosorbide Dinitrate 10 MG BID 9A 5P PO Amlodipine Besylate 0 .STK-MED ONE .ROUTE (DC) Acetaminophen 650 MG Q4H PRN PRN PO (CAN) Al Hydrox/Mg Hydrox/Simethicone 30 ML Q4H PRN PRN PO Docusate Sodium 100 MG BID PRN PRN PO Ondansetron HCl 4 MG Q4H PRN PRN IV Amlodipine Besylate 10 MG ONCE ONE PO (DC) Hydralazine HCl 10 MG Q4H PRN PRN IV Hydralazine HCl 0 .STK-MED ONE .ROUTE (DC) Sodium Chloride 125 ML ONCE ONE IV (DC) Acetaminophen 650 MG Q6H PRN PRN PO Atropine Sulfate 0.5 MG ASDIR PRN IV Ondansetron HCl 4 MG Q6H PRN PRN IV Sodium Chloride 1,000 ML .Q10H ONE IV (CAN) Sodium Chloride 500 ML ASDIR PRN IV Cefazolin Sodium 0 .STK-MED ONE IV (DC) Furosemide 40 MG BID PRN PRN PO Heparin Sodium 0 .STK-MED ONE .ROUTE (DC) Fentanyl Citrate 0 .STK-MED ONE IV (DC) Lidocaine HCl 0 .STK-MED ONE LOCAL (DC) Midazolam HCl 0 .STK-MED ONE IV (DC) Sodium Chloride 1,000 ML PREOP ASDIR IV (DC) Lidocaine HCl 2 ML ASDIR LOCAL (DC) Pharmacy Profile Note HOLD METFORMIN ON DAY OF PROCEDURE AND 48 HOURS POST PROCEDURE ASDIR [facility] (DC) Physical ExamGeneral appearance: alert, awake, oriented, no acute distress, pleasantHead/Eyes: atraumatic, EOMI, normocephalic, PERRLAENT: moist mucosal membranesCardiovascular: CV assessment: regular rate and rhythm, normal heart sounds, no gallop, no murmur, no rub, no thrillRespiratory: clear to auscultation, no distressAbdomen: soft, non-tender, normal bowel sounds, no distentionGenitourinary: no bladder distention, no flank pain, no foleyUpper extremity: UE assessment: no clubbing, no cyanosis, no edemaLower extremity: LE assessment: no clubbing, no cyanosis, no edemaMusculoskeletal: full range of motionNeuro/VACUUM FILTER OPERATOR: alert, oriented X 3, normal speechWound/incision: Location:right groin surgical incision site: dry, intact ResultsFindings/Data:Laboratory Tests 09/2050 2249 1957 1018 Chemistry Sodium (134 - 147 mEq/L) 141 Potassium (3.4 - 5.0 mEq/L) 4.6 Chloride (100 - 108 mEq/L) 113 H Carbon Dioxide (21 - 33 mEq/L) 23 Anion Gap (0 - 20) 10 BUN (7 - 18 mg/dL) 31 H Creatinine (0.6 - 1.3 mg/dL) 1.7 H Glomerular Filtr Rate (90 - 95) 50.5 L Glucose (70 - 110 mg/dL) 181 H POC Glucose (70 - 110 MG/DL) 233 H 233 H 155 H Calcium (8.0 - 10.5 mg/dL) 8.3 Laboratory Tests 09/19 09 Coagulation Activated Coag Time (74 - 137 SEC) 246 H Laboratory Tests 09/20 0550 Hematology WBC (4.5 - 11.0 x10 3/uL) 6.39 RBC (4.00 - 5.60 x10 6/uL) 3.24 L Hgb (12.5 - 16.9 g/dL) 8.8 L Hct (37.5 - 50.7 %) 27.6 L MCV (81.0 - 99.0 fL) 85.2 MCH (27.0 - 33.0 pg) 27.2 MCHC (33.0 - 37.0 g/dL) 31.9 L RDW (11.5 - 14.5 %) 16.2 H Plt Count (150 - 400 x10 3/uL) 248 MPV (7.0 - 9.0 fL) 10.3 H Neut % (Auto) (56.0 - 77.0 %) 69.8 Lymph % (Auto) (14.0 - 32.0 %) 18.5 Highland % (Auto) (4.8 - 9.0 %) 8.9 Eos % (Auto) (0.3 - 3.7 %) 2.3 Baso % (Auto) (0.0 - 2.0 %) 0.2 Neut # (Auto) (2.0 - 7.6 x10 3/uL) 4.46 Lymph # (Auto) (1.0 - 3.8 x10 3/uL) 1.18 Highland # (Auto) (0.1 - 0.8 x10 3/uL) 0.57 Eos # (Auto) (0.0 - 0.2 x10 3/uL) 0.15 Baso # (Auto) (0.0 - 0.2 x10 3/uL) 0.01 Abs Immat Gran (auto) (0.00 - 0.03 x10 3/uL) 0.02 Add Manual Diff NO Immature Gran % (0.0 - 2.0 %) 0.3 Nucleated RBC % (0 - 0 %) 0.0 Nucleated RBCs # (Man) (0.0 - 0.1 x10 3/uL) 0.00 Review of SystemsConstitutional:Denies: chills, fever, generalized weakness. Skin:Denies: diaphoresis, ecchymosis, rash. Respiratory:Denies: SORIANO (dyspnea on exertion), SOB, wheezing. Cardiovascular:Denies: chest pain, palpitations. GI:Denies: abdominal pain, nausea, vomiting. :Denies: dysuria. Neuro:Denies: dizziness, syncope, weakness. All systems rev neg: except as marked Diagnosis, Assessment Plan Free Text DxA P NotesFree Text DxA P Notes:Dusty Francois is a 59 year old male with PMHx of CAD s/p PCI to mid RCA and mid LAD, PVD, HLD, DM type 2, HTN and CKD who was admitted to the hospital for staged intervention of the RCA. 1. Multivessel Coronary artery disease- [facility] 09/19/2019: The LAD has proximal stent that is patent. Distal to the stent,gjaq-eh-zpytbqox atherosclerosis. RCA, the mid stent is patent. Then, the three obtuse marginals have npij-[id number] atherosclerosis. S/P Successful percutaneous intervention of proximal and mid RCA using two Synergy stents.- continue aspirin 81 mg daily- continue brilinta 90 mg BID- continue isorbide dinitrate 10 mg BID 2. HTN- continue hydralazine 25 mg BID- continue metoprolol 75 mg BID- amlodipine PRN at home- Hydralazine 10 mg Q4hrs PRN 3. HLD- continue statin Patient is okay to discharge per cardiology standpoint and follow up outpatient. at 0827 RPT #:[id number] OF REPORTPRProgress [id number]:19:00G.[id number] le for patient [id number]:28:09 [facility] 2019-09-20 08:19:00 [id number]:19:00 [facility] ([facility])Cardiology Progress NoteREPORT#:[id number] REPORT STATUS: SignedDATE:09/20/19 TIME: 818 PATIENT: DUSTY FRANCOIS UNIT #: [id number]#: [id number] ROOM[facility]BED: [facility]DOB: [birth year] AGE: 59 SEX: M ATTEND: Darci Roldan AUTHOR: Tamara Oliveira * ALL edits or amendments must be made on the electronic/computer document * Tamara Oliveira 09/20/19 0819:SubjectiveChief Complaint:Multivessel coronary artery diseaseHPI:s/p [facility] with PCI to proximal and mid RCA Free Text Subj NotesFree Text Subj Notes:Patient is awake and alert, sitting up in bed. Patient denies chest pain, palpitations, or shortness of breath. No complaints or concerns overnight. Patient states he ambulated in room without problems. Objective GeneralVS/I O:24 hour I O ending at 0700: 09/20 0700 09/19 1900 Intake Total Output Total 400 Balance -400 Number Voids 1 Output, Urine 400 Vital Signs: Date Time Temp Pulse Resp B/P B/P Pulse O2 O2 Flow FiO2 Mean Ox Delivery Rate 09/20 740 98.6 76 16 123/71 88.4 98 Room air 09/20 0406 97.7 82 16 122/67 85.0 96 Room air 09/19 2349 97.5 85 16 162/86 111.0 98 Room air 09/19 1958 97.9 99 16 168/81 110.4 98 Room air 09/19 1754 98.2 98 17 171/93 118.7 98 Room air Patient Weight Weight (lb): 179Weight (oz): 14.36Weight (kg): 81.600 Medications:Active Meds + DC'd Last 24 HrsAmlodipine Besylate 5 MG DAILY PO (CAN) Aspirin 81 MG DAILY PO Polyethylene Glycol 17 GM DAILY PO Atorvastatin Calcium 80 MG BEDTIME PO Hydralazine HCl 25 MG BID PO Insulin Glargine 10 UNIT Q12HR SUBQ Metoprolol Succinate 75 MG BID PO Tamsulosin HCl 0.4 MG BEDTIME PO Ticagrelor 90 MG BID PO Isosorbide Dinitrate 10 MG BID 9A 5P PO Amlodipine Besylate 0 .STK-MED ONE .ROUTE (DC) Acetaminophen 650 MG Q4H PRN PRN PO (CAN) Al Hydrox/Mg Hydrox/Simethicone 30 ML Q4H PRN PRN PO Docusate Sodium 100 MG BID PRN PRN PO Ondansetron HCl 4 MG Q4H PRN PRN IV Amlodipine Besylate 10 MG ONCE ONE PO (DC) Hydralazine HCl 10 MG Q4H PRN PRN IV Hydralazine HCl 0 .STK-MED ONE .ROUTE (DC) Sodium Chloride 125 ML ONCE ONE IV (DC) Acetaminophen 650 MG Q6H PRN PRN PO Atropine Sulfate 0.5 MG ASDIR PRN IV Ondansetron HCl 4 MG Q6H PRN PRN IV Sodium Chloride 1,000 ML .Q10H ONE IV (CAN) Sodium Chloride 500 ML ASDIR PRN IV Cefazolin Sodium 0 .STK-MED ONE IV (DC) Furosemide 40 MG BID PRN PRN PO Heparin Sodium 0 .STK-MED ONE .ROUTE (DC) Fentanyl Citrate 0 .STK-MED ONE IV (DC) Lidocaine HCl 0 .STK-MED ONE LOCAL (DC) Midazolam HCl 0 .STK-MED ONE IV (DC) Sodium Chloride 1,000 ML PREOP ASDIR IV (DC) Lidocaine HCl 2 ML ASDIR LOCAL (DC) Pharmacy Profile Note HOLD METFORMIN ON DAY OF PROCEDURE AND 48 HOURS POST PROCEDURE ASDIR MISC (DC) Physical ExamGeneral appearance: alert, awake, oriented, no acute distress, pleasantHead/Eyes: atraumatic, EOMI, normocephalic, PERRLAENT: moist mucosal membranesCardiovascular: CV assessment: regular rate and rhythm, normal heart sounds, no gallop, no murmur, no rub, no thrillRespiratory: clear to auscultation, no distressAbdomen: soft, non-tender, normal bowel sounds, no distentionGenitourinary: no bladder distention, no flank pain, no foleyUpper extremity: UE assessment: no clubbing, no cyanosis, no edemaLower extremity: LE assessment: no clubbing, no cyanosis, no edemaMusculoskeletal: full range of motionNeuro/VACUUM FILTER OPERATOR: alert, oriented X 3, normal speechWound/incision: Location:right groin surgical incision site: dry, intact ResultsFindings/Data:Laboratory Tests 09/20 09/19 09/19 09/19 0550 2249 1957 1018 Chemistry Sodium (134 - 147 mEq/L) 141 Potassium (3.4 - 5.0 mEq/L) 4.6 Chloride (100 - 108 mEq/L) 113 H Carbon Dioxide (21 - 33 mEq/L) 23 Anion Gap (0 - 20) 10 BUN (7 - 18 mg/dL) 31 H Creatinine (0.6 - 1.3 mg/dL) 1.7 H Glomerular Filtr Rate (90 - 95) 50.5 L Glucose (70 - 110 mg/dL) 181 H POC Glucose (70 - 110 MG/DL) 233 H 233 H 155 H Calcium (8.0 - 10.5 mg/dL) 8.3 Laboratory Tests 11/05 0934 Coagulation Activated Coag Time (74 - 137 SEC) 246 H Laboratory Tests 09/20 0550 Hematology WBC (4.5 - 11.0 x10 3/uL) 6.39 RBC (4.00 - 5.60 x10 6/uL) 3.24 L Hgb (12.5 - 16.9 g/dL) 8.8 L Hct (37.5 - 50.7 %) 27.6 L MCV (81.0 - 99.0 fL) 85.2 MCH (27.0 - 33.0 pg) 27.2 MCHC (33.0 - 37.0 g/dL) 31.9 L RDW (11.5 - 14.5 %) 16.2 H Plt Count (150 - 400 x10 3/uL) 248 MPV (7.0 - 9.0 fL) 10.3 H Neut % (Auto) (56.0 - 77.0 %) 69.8 Lymph % (Auto) (14.0 - 32.0 %) 18.5 Highland % (Auto) (4.8 - 9.0 %) 8.9 Eos % (Auto) (0.3 - 3.7 %) 2.3 Baso % (Auto) (0.0 - 2.0 %) 0.2 Neut # (Auto) (2.0 - 7.6 x10 3/uL) 4.46 Lymph # (Auto) (1.0 - 3.8 x10 3/uL) 1.18 Highland # (Auto) (0.1 - 0.8 x10 3/uL) 0.57 Eos # (Auto) (0.0 - 0.2 x10 3/uL) 0.15 Baso # (Auto) (0.0 - 0.2 x10 3/uL) 0.01 Abs Immat Gran (auto) (0.00 - 0.03 x10 3/uL) 0.02 Add Manual Diff NO Immature Gran % (0.0 - 2.0 %) 0.3 Nucleated RBC % (0 - 0 %) 0.0 Nucleated RBCs # (Man) (0.0 - 0.1 x10 3/uL) 0.00 Review of SystemsConstitutional:Denies: chills, fever, generalized weakness. Skin:Denies: diaphoresis, ecchymosis, rash. Respiratory:Denies: SORIANO (dyspnea on exertion), SOB, wheezing. Cardiovascular:Denies: chest pain, palpitations. GI:Denies: abdominal pain, nausea, vomiting. :Denies: dysuria. Neuro:Denies: dizziness, syncope, weakness. All systems rev neg: except as marked Diagnosis, Assessment Plan Free Text DxA P NotesFree Text DxA P Notes:Dusty Francois is a 59 year old male with PMHx of CAD s/p PCI to mid RCA and mid LAD, PVD, HLD, DM type 2, HTN and CKD who was admitted to the hospital for staged intervention of the RCA. 1. Multivessel Coronary artery disease- [facility] 09/19/2019: The LAD has proximal stent that is patent. Distal to the stent,qhph-jm-toljgpfo atherosclerosis. RCA, the mid stent is patent. Then, the three obtuse marginals have ewlv-vc-lkpqanhl atherosclerosis. S/P Successful percutaneous intervention of proximal and mid RCA using two Synergy stents.- continue aspirin 81 mg daily- continue brilinta 90 mg BID- continue isorbide dinitrate 10 mg BID 2. HTN- continue hydralazine 25 mg BID- continue metoprolol 75 mg BID- amlodipine PRN at home- Hydralazine 10 mg Q4hrs PRN 3. HLD- continue statin Patient is okay to discharge per cardiology standpoint and follow up outpatient. Yvette Rae 10/29/19 1529:Diagnosis, Assessment Plan Free Text DxA P NotesFree Text DxA P Notes:Patient seen and examined, lab and imaging reviewed. I agree with the assessmentand plan as documented by the MEDICATION ADMINISTRATION PROFESSIONAL. at 0827 RPT #:[id number] OF REPORTPRProgress [id number]:19:00G.[id number] anabelle for patient [id number]:29:42 [facility] 2019-09-20 08:19:00 [id number]:19:00 [facility] ([facility])Cardiology Progress NoteREPORT#:[id number] REPORT STATUS: SignedDATE:09/20/19 TIME: 818 PATIENT: DUSTY RFANCOIS UNIT #: [id number]#: [id number] ROOM/BED: [id number]: [birth year] AGE: 59 SEX: M ATTEND: Darci Roldan [facility] AUTHOR: Tamara Oliveira MEDICATION ADMINISTRATION PROFESSIONAL-C * ALL edits or amendments must be made on the electronic/computer document * Tamara Oliveira 09/20/19 0819:SubjectiveChief Complaint:Multivessel coronary artery diseaseHPI:s/p LHC with PCI to proximal and mid RCA Free Text Subj NotesFree Text Subj Notes:Patient is awake and alert, sitting up in bed. Patient denies chest pain, palpitations, or shortness of breath. No complaints or concerns overnight. Patient states he ambulated in room without problems. Objective GeneralVS/I O:24 hour I O ending at 0700: 09/20 0700 09/19 1900 Intake Total Output Total 400 Balance -400 Number Voids 1 Output, Urine 400 Vital Signs: Date Time Temp Pulse Resp B/P B/P Pulse O2 O2 Flow FiO2 Mean Ox Delivery Rate 09/20 0740 98.6 76 16 123/71 88.4 98 Room air 09/20 0406 97.7 82 16 122/67 85.0 96 Room air 09/19 2349 97.5 85 16 162/86 111.0 98 Room air 09/19 1958 97.9 99 16 168/81 110.4 98 Room air 09/19 1754 98.2 98 17 171/93 118.7 98 Room air Patient Weight Weight (lb): 179Weight (oz): 14.36Weight (kg): 81.600 Medications:Active Meds + DC'd Last 24 HrsAmlodipine Besylate 5 MG DAILY PO (CAN) Aspirin 81 MG DAILY PO Polyethylene Glycol 17 GM DAILY PO Atorvastatin Calcium 80 MG BEDTIME PO Hydralazine HCl 25 MG BID PO Insulin Glargine 10 UNIT Q12HR SUBQ Metoprolol Succinate 75 MG BID PO Tamsulosin HCl 0.4 MG BEDTIME PO Ticagrelor 90 MG BID PO Isosorbide Dinitrate 10 MG BID 9A 5P PO Amlodipine Besylate 0 .STK-MED ONE .ROUTE (DC) Acetaminophen 650 MG Q4H PRN PRN PO (CAN) Al Hydrox/Mg Hydrox/Simethicone 30 ML Q4H PRN PRN PO Docusate Sodium 100 MG BID PRN PRN PO Ondansetron HCl 4 MG Q4H PRN PRN IV Amlodipine Besylate 10 MG ONCE ONE PO (DC) Hydralazine HCl 10 MG Q4H PRN PRN IV Hydralazine HCl 0 .STK-MED ONE .ROUTE (DC) Sodium Chloride 125 ML ONCE ONE IV (DC) Acetaminophen 650 MG Q6H PRN PRN PO Atropine Sulfate 0.5 MG ASDIR PRN IV Ondansetron HCl 4 MG Q6H PRN PRN IV Sodium Chloride 1,000 ML .Q10H ONE IV (CAN) Sodium Chloride 500 ML ASDIR PRN IV Cefazolin Sodium 0 .STK-MED ONE IV (DC) Furosemide 40 MG BID PRN PRN PO Heparin Sodium 0 .STK-MED ONE .ROUTE (DC) Fentanyl Citrate 0 .STK-MED ONE IV (DC) Lidocaine HCl 0 .STK-MED ONE LOCAL (DC) Midazolam HCl 0 .STK-MED ONE IV (DC) Sodium Chloride 1,000 ML PREOP ASDIR IV (DC) Lidocaine HCl 2 ML ASDIR LOCAL (DC) Pharmacy Profile Note HOLD METFORMIN ON DAY OF PROCEDURE AND 48 HOURS POST PROCEDURE ASDIR MISC (DC) Physical ExamGeneral appearance: alert, awake, oriented, no acute distress, pleasantHead/Eyes: atraumatic, EOMI, normocephalic, PERRLAENT: moist mucosal membranesCardiovascular: CV assessment: regular rate and rhythm, normal heart sounds, no gallop, no murmur, no rub, no thrillRespiratory: clear to auscultation, no distressAbdomen: soft, non-tender, normal bowel sounds, no distentionGenitourinary: no bladder distention, no flank pain, no foleyUpper extremity: UE assessment: no clubbing, no cyanosis, no edemaLower extremity: LE assessment: no clubbing, no cyanosis, no edemaMusculoskeletal: full range of motionNeuro/VACUUM FILTER OPERATOR: alert, oriented X 3, normal speechWound/incision: Location:right groin surgical incision site: dry, intact ResultsFindings/Data:Laboratory Tests 09/2050 2249 1957 1018 Chemistry Sodium (134 - 147 mEq/L) 141 Potassium (3.4 - 5.0 mEq/L) 4.6 Chloride (100 - 108 mEq/L) 113 H Carbon Dioxide (21 - 33 mEq/L) 23 Anion Gap (0 - 20) 10 BUN (7 - 18 mg/dL) 31 H Creatinine (0.6 - 1.3 mg/dL) 1.7 H Glomerular Filtr Rate (90 - 95) 50.5 L Glucose (70 - 110 mg/dL) 181 H POC Glucose (70 - 110 MG/DL) 233 H 233 H 155 H Calcium (8.0 - 10.5 mg/dL) 8.3 Laboratory Tests 09/19 934 Coagulation Activated Coag Time (74 - 137 SEC) 246 H Laboratory Tests 09/20 0550 Hematology WBC (4.5 - 11.0 x10 3/uL) 6.39 RBC (4.00 - 5.60 x10 6/uL) 3.24 L Hgb (12.5 - 16.9 g/dL) 8.8 L Hct (37.5 - 50.7 %) 27.6 L MCV (81.0 - 99.0 fL) 85.2 MCH (27.0 - 33.0 pg) 27.2 MCHC (33.0 - 37.0 g/dL) 31.9 L RDW (11.5 - 14.5 %) 16.2 H Plt Count (150 - 400 x10 3/uL) 248 MPV (7.0 - 9.0 fL) 10.3 H Neut % (Auto) (56.0 - 77.0 %) 69.8 Lymph % (Auto) (14.0 - 32.0 %) 18.5 [place]land % (Auto) (4.8 - 9.0 %) 8.9 Eos % (Auto) (0.3 - 3.7 %) 2.3 Baso % (Auto) (0.0 - 2.0 %) 0.2 Neut # (Auto) (2.0 - 7.6 x10 3/uL) 4.46 Lymph # (Auto) (1.0 - 3.8 x10 3/uL) 1.18 Highland # (Auto) (0.1 - 0.8 x10 3/uL) 0.57 Eos # (Auto) (0.0 - 0.2 x10 3/uL) 0.15 Baso # (Auto) (0.0 - 0.2 x10 3/uL) 0.01 Abs Immat Gran (auto) (0.00 - 0.03 x10 3/uL) 0.02 Add Manual Diff NO Immature Gran % (0.0 - 2.0 %) 0.3 Nucleated RBC % (0 - 0 %) 0.0 Nucleated RBCs # (Man) (0.0 - 0.1 x10 3/uL) 0.00 Review of SystemsConstitutional:Denies: chills, fever, generalized weakness. Skin:Denies: diaphoresis, ecchymosis, rash. Respiratory:Denies: SORIANO (dyspnea on exertion), SOB, wheezing. Cardiovascular:Denies: chest pain, palpitations. GI:Denies: abdominal pain, nausea, vomiting. :Denies: dysuria. Neuro:Denies: dizziness, syncope, weakness. All systems rev neg: except as marked Diagnosis, Assessment Plan Free Text DxA P NotesFree Text DxA P Notes:Dusty Francois is a 59 year old male with PMHx of CAD s/p PCI to mid RCA and mid LAD, PVD, HLD, DM type 2, HTN and CKD who was admitted to the hospital for staged intervention of the RCA. 1. Multivessel Coronary artery disease- [facility] 09/19/2019: The LAD has proximal stent that is patent. Distal to the stent,gqnt-bm-fiumkuay atherosclerosis. RCA, the mid stent is patent. Then, the three obtuse marginals have pngz-nk-eaxxtyae atherosclerosis. S/P Successful percutaneous intervention of proximal and mid RCA using two Synergy stents.- continue aspirin 81 mg daily- continue brilinta 90 mg BID- continue isorbide dinitrate 10 mg BID 2. HTN- continue hydralazine 25 mg BID- continue metoprolol 75 mg BID- amlodipine PRN at home- Hydralazine 10 mg Q4hrs PRN 3. HLD- continue statin Patient is okay to discharge per cardiology standpoint and follow up outpatient. Yvette Rae 10/29/19 1529:Diagnosis, Assessment Plan Free Text DxA P NotesFree Text DxA P Notes:Patient seen and examined, lab and imaging reviewed. I agree with the assessmentand plan as documented by the MEDICATION ADMINISTRATION PROFESSIONAL. at 0827 at 1529 RPT #:[id number] OF REPORTPRProgress [id number]:19:00G.[id number] le for patient ocquYFOLBKRANHFYXW8411-00-98M90:30:02 [facility] 2019-09-20 07:51:00 [id number]:51:0011 [place] [address] PATIENT NAME: DUSTY FRANCOIS ADMIT DATE: 09/19/19ACCOUNT NO: [id number] ROOM NO: [facility] [place] AGE: 59 REPORT TYPE: eELECTROCARDIOGRAM REPORT SEX: M ADMITTING PHYSICIAN:Darci Roldan MD ATTENDING PHYSICIAN:Darci Roldan MD Order:[id number] Reason : Post PCI Test Date/Time Stamp:WedSep 20 2019 07:51:17Blood Pressure : / mmHGVent. Rate : 076 BPM Atrial Rate : 076 BPM P-R Int : 144 ms QRS Dur : 092 ms QT Int : 396 ms P-R-T Axes : 078 069 -63 degrees QTc Int : 445 ms Normal sinus rhythmSeptal infarct , age undeterminedT wave abnormality, consider inferior ischemiaAbnormal ECGWhen compared with ECG of 15-SEP-2019 07:46,Significant changes have occurredConfirmed by ELVIRA HANCOCK MD ([id number]) on 09/20/2019 6:24:36 PM Referred By: Yvette Rae Confirmed by:ELVIRA HANCOCK MD at 6504 PATIENT NAME: DUSTY FRANCOIS .[id number] Available for patient [id number]:24:54 [facility] 2019-09-19 17:02:00 [id number]:02:00 [facility] ([facility])History Physical - AdultREPORT#:[id number] REPORT STATUS: SignedDATE:09/19/19 TIME: 1702 PATIENT: DUSTY FRANCOIS UNIT #: [id number]#: [id number] ROOM/BED: 3345-1DOB: [birth year] AGE: 59 SEX: M ATTEND: Darci Roldan [facility] AUTHOR: Darci Roldan MD * ALL edits or amendments must be made on the electronic/computer document * History of Present Illness HPIChief complaint:CAD, post PCI Free Text HPI NotesFree Text HPI Notes:59 year old male with history of CAD admitted post left heart cath, required 2 stent to RCA. Denies any fever, chills, chest pain, shortness of breath, abdominal pain, nausea/vomiting HistoryPast medical history:Reports: Diabetes mellitus, Kidney disease/stones (Chronic kidney disease), Prior [place]. Additional medical history:gastroparesis, CVAAdditional surgical history:Toe amputation, x2 cardiac stentsAdditional family history:Brother and Father CADAlcohol use: Denies EtOH useDrug use: Denies recreational drugsSmoking status for patients 13 years old or older: Never Smoker Medication/Allergy-Vaccine HxHome Medications:ASPIRIN 81 MG PO DAILYATORVASTATIN (LIPITOR) 80 MG PO DAILYCHOLECALCIFEROL (VITAMIN D3) (VITAMIN D3) 50,000 UNIT PO [id number] (LASIX) 40 MG PO BID PRN EDEMAINSULIN DETEMIR (LEVEMIR) 10 UNITS SUBQ [id number] LISPRO PROTAM/INSULIN LISPRO (HumaLOG Mix 50/50 KWIKPEN) 0 UNITS SUBQ BIDISOSORBIDE DINITRATE (ISORDIL) 10 MG PO BIDPOLYETHYLENE GLYCOL 3350 (MIRALAX) 17 GM PO DAILYTAMSULOSIN ER (FLOMAX) 0.4 MG PO BEDTIMETICAGRELOR (BRILINTA) 90 MG PO BID Discontinued MedicationsATORVASTATIN (LIPITOR) 80 MG PO DAILY 1700 Discontinued reason: voice systems engineer correctionhydrALAZINE (APRESOLINE) 25 MG PO BID Discontinued reason: Discontinued as per MDMETOPROLOL SUCC XL (TOPROL XL) 75 MG PO BID Discontinued reason: Discontinued as per MD Allergies:Coded Allergies:No Known Allergies (09/15/19) Review of SystemsAll systems rev neg: except as marked Physical ExamVS/I OVital Signs: Date Time Temp Pulse Resp B/P B/P Pulse O2 O2 Flow FiO2 Mean Ox Delivery Rate 09/20 0740 37.0 76 16 123/71 88.4 98 Room air 09/20 0406 36.5 82 16 122/67 85.0 96 Room air 09/19 2349 36.4 85 16 162/86 111.0 98 Room air 09/19 1958 36.6 99 16 168/81 110.4 98 Room air 09/19 1754 36.8 98 17 171/93 118.7 98 Room air 24 hour I O ending at 0700: 09/20 0700 09/19 1900 Intake Total Output Total 400 Balance -400 Number Voids 1 Output, Urine 400 Patient Weight Weight (lb): 179Weight (oz): 14.36Weight (kg): 81.600 General appearance: alert, awake, orientedHead/Eyes: atraumatic, EOMI, normocephalic, PERRLANeck: non-tender, no JVDCardiovascular: regular rate rhythm, normal heart sounds, no murmurRespiratory: clear to auscultation, no distress, no tenderness, aerating wellAbdomen/GI: active bowel sounds, soft, non-tender, no guardingExtremities: moves allMusculoskeletal: normal inspectionNeuro/VACUUM FILTER OPERATOR: alert, oriented X 3 Diagnosis, Assessment PlanProblem List/A P: 1. CVA (cerebrovascular accident) 2. Shortness of breath 3. PAD (peripheral artery disease) 4. Syncope 5. DM2 (diabetes mellitus, type 2) 6. CAD (coronary artery disease) Free Text DxA P NotesFree Text DxA P Notes:Resume home medicationspost op carepain control as orderedcheck labs in AMambulate as toleratesmontior overnight, plan home in AM at 0747 RPT #:[id number] OF REPORTHPHistory and physical alspklsshlb1240-17-28I72:02:00G.[id number] Available for patient [id number]:47:33 [facility] 2019-09-19 17:00:00 [id number]:00:00 [facility] ([facility])Cardiology ConsultationREPORT#:[id number] REPORT STATUS: SignedDATE:09/19/19 TIME: 1700 PATIENT: DUSTY FRANCOIS UNIT #: [id number]#: [id number] RO[address]DOB: [birth year] AGE: 59 SEX: M ATTEND: Darci Roldan AUTHOR: Tamara Oliveira MEDICATION ADMINISTRATION PROFESSIONAL-C * ALL edits or amendments must be made on the electronic/computer document * History of Present Illness HPIRequesting Clinician: Dr. Darci Wesley for consult:s/p LHC with PCI to RCAChief complaint:Multivessel coronary artery disease Free Text HPI NotesFree Text HPI Notes:Dusty Francois is a 59 year old male with PMHx of CAD s/p PCI to mid RCA and mid LAD, PVD, HLD, DM type 2, HTN and CKD who was admitted to the hospital for staged intervention of the RCA. Patient underwent LHC today with successful percutaneous intervention of proximal and mid RCA using two Synergy stents. Patient denies chest pain, palpitations or shortness of breath. No acute distress noted. History - Adult longitudinalPast medical history:Reports: Diabetes mellitus, Kidney disease/stones (Chronic kidney disease), Prior [place]. Additional medical history:gastroparesis, CVAAdditional surgical history:Toe amputation, x2 cardiac stentsAdditional family history:Brother and Father CADAlcohol use: Denies EtOH useDrug use: Denies recreational drugsSmoking status for patients 13 years old or older: Never SmokerMedications:Home Medications:Medication Dose/Rte/Freq Days Qty Entered Last Max Daily Dose Reviewed INSULIN DETEMIR 10 UNITS SUBQ 09/18/18 09/19/19 (LEVEMIR) Q12HR 1951 0640Strength: 100 UNITS/MLVIAL FUROSEMIDE (LASIX) 40 MG PO 07/16/19 09/19/19Strength: 40 MG TAB BID PRN EDEMA 0151 0640 ATORVASTATIN (LIPITOR) 80 MG PO DAILY 09/15/19 09/19/19Strength: 80 MG TAB 0831 0640 TAMSULOSIN ER (FLOMAX) 0.4 MG PO BEDTIME 09/15/19 09/19/19Strength: 0.4 MG 0832 0640CAP.SR.24H INSULIN LISPRO 0 UNITS SUBQ BID 09/15/19 09/19/19 PROTAM/INSULIN LISPRO 0833 0640 (HumaLOG Mix 50/50 KWIKPEN)Strength: 100 UNITS/MLPEN.INJCTR POLYETHYLENE GLYCOL 17 GM PO DAILY 09/15/19 09/19/19 3350 0840 0640 (MIRALAX)Strength: 17 GM POWDER ISOSORBIDE DINITRATE 10 MG PO BID 07/16/19 09/19/19 (ISORDIL) 0146 0640Strength: 10 MG TAB CHOLECALCIFEROL 50,000 UNIT PO Q7D 07/16/19 09/19/19 (VITAMIN D3) 0149 0640 (VITAMIN D3)Strength: 50,000 UNIT CAP TICAGRELOR (BRILINTA) 90 MG PO BID 180 06/13/19 09/19/19Strength: 90 MG TAB 1259 0640 ASPIRIN 81 MG PO DAILY 90 06/13/19 09/19/19Strength: 81 MG TAB.CHEW 1300 0640 Current Hospital Medications:Anti-Infective Agents Sig/Jean Carlos Start time Last Medication Dose Route Stop Time Status Admin Cefazolin Sodium 0 .STK-MED ONE 09/19 958 DC 09/19 (KEFZOL OR ANCEF) IV 1005 Autonomic Drugs Sig/Jean Carlos Start time Last Medication Dose Route Stop Time Status Admin Tamsulosin HCl 0.4 MG BEDTIME 09/19 2100 AC (Flomax 0.4 mg) PO 10/19 2059 Atropine Sulfate 0.5 MG ASDIR PRN 09/19 1000 AC (ATROPINE SULFATE IV 10/19 959 0.1MG/ML SYR) Blood Formation,Coagulation Sig/Jean Carlos Start time Last Medication Dose Route Stop Time Status Admin Ticagrelor 90 MG BID 09/19 2100 AC (BRILINTA) PO 10/19 2059 Heparin Sodium 0 .STK-MED ONE 09/19 0856 DC (HEPARIN SODIUM) .ROUTE Cardiovascular Drugs Sig/Jean Carlos Start time Last Medication Dose Route Stop Time Status Admin Atorvastatin Calcium 80 MG BEDTIME 09/19 2100 AC (LIPITOR) PO 10/19 2059 Isosorbide Dinitrate 10 MG BID 9A 5P 09/19 1700 AC (ISORDIL) PO 10/19 1659 Amlodipine Besylate 0 .STK-MED ONE 09/19 1312 DC (NORVASC) .ROUTE Amlodipine Besylate 10 MG ONCE ONE 09/19 1045 DC 09/19 (NORVASC) PO 09/19 1046 1315 Hydralazine HCl 10 MG Q4H PRN PRN 09/19 1045 AC (APRESOLINE) IV 10/19 1044 Hydralazine HCl 0 .STK-MED ONE 09/19 1037 DC (APRESOLINE) .ROUTE Lidocaine HCl 0 .STK-MED ONE 09/19 08 DC 09/19 (LIDOCAINE HCL/PF) LOCAL 0903 Lidocaine HCl 2 ML ASDIR 09/15 0745 DC (XYLOCAINE MPF 2% LOCAL 10/15 0744 2ML VIAL) Central Nervous System Agents Sig/Jean Carlos Start time Last Medication Dose Route Stop Time Status Admin Aspirin 81 MG DAILY 09/20 0900 AC (ASPIRIN) PO 10/20 0859 Acetaminophen 650 MG Q4H PRN PRN 09/19 1130 CAN (TYLENOL) PO 10/19 1129 Acetaminophen 650 MG Q6H PRN PRN 09/19 1000 AC (TYLENOL) PO 10/19 0959 Fentanyl Citrate 0 .STK-MED ONE 09/19 08 DC 09/19 (SUBLIMAZE) IV 0917 Midazolam HCl 0 .STK-MED ONE 09/19 855 DC 09/19 (VERSED) IV 0917 Electrolytic, Caloric, And Alex Sig/Jean Carlos Start time Last Medication Dose Route Stop Time Status Admin Sodium Chloride 125 ML ONCE ONE 09/19 1015 DC (SODIUM CHLORIDE IV 09/19 1016 0.9%) Sodium Chloride 1,000 ML .Q10H ONE 09/19 1000 CAN (SODIUM CHLORIDE IV 09/19 1959 0.9%) Sodium Chloride 500 ML ASDIR PRN 09/19 1000 AC (SODIUM CHLORIDE IV 10/19 0959 0.9%) Furosemide 40 MG BID PRN PRN 09/19 0945 AC (LASIX) PO 10/19 0944 Sodium Chloride 1,000 ML PREOP ASDIR 09/19 0500 DC (SODIUM CHLORIDE IV 10/19 0459 0.9%) Gastrointestinal Drugs Sig/Jean Carlos Start time Last Medication Dose Route Stop Time Status Admin Polyethylene Glycol 17 GM DAILY 09/20 0900 AC (MIRALAX) PO 10/20 0859 Al Hydrox/Mg Hydrox/ 30 ML Q4H PRN PRN 09/19 1130 AC Simethicone PO 10/19 1129 (MYLANTA) Docusate Sodium 100 MG BID PRN PRN 09/19 1130 AC (COLACE) PO 10/19 1129 Ondansetron HCl 4 MG Q4H PRN PRN 09/19 1130 AC (ZOFRAN) IV 10/19 1129 Ondansetron HCl 4 MG Q6H PRN PRN 09/19 1000 AC (ZOFRAN) IV 10/19 0959 Hormones And Synthetic Substit Sig/Jean Carlos Start time Last Medication Dose Route Stop Time Status Admin Insulin Glargine 10 UNIT Q12HR 09/19 2100 AC (Lantus) SUBQ 10/19 2059 Other Sig/Jean Carlos Start time Last Medication Dose Route Stop Time Status Admin Pharmacy Profile Note See Dose ASDIR 09/15 0745 DC (HOLD metFORMIN Insts (1) MISC 10/15 744 CONTAINING PRODUCTS) Dose Instructions:(1)Pharmacy Profile Note (HOLD metFORMIN CONTAINING PRODUCTS): HOLD METFORMIN ON DAY OF PROCEDURE AND 48 HOURS POST PROCEDURE Allergies:Coded Allergies:No Known Allergies (09/15/19) Review of SystemsConstitutional:Denies: chills, fever, generalized weakness. Skin:Denies: diaphoresis, rash, swelling. Eyes:Denies: visual loss/blurred. Respiratory:Denies: SORIANO (dyspnea on exertion), SOB, wheezing. Cardiovascular:Denies: chest pain, palpitations. GI:Denies: abdominal pain, diarrhea, nausea, vomiting. :Denies: dysuria. Heme:Denies: bleeding. Neuro:Denies: change in LOC, dizziness, lightheaded, syncope. All systems rev neg: except as marked Objective Physical ExamVS/I O:Vital Signs: Date Time Temp Pulse Resp B/P B/P Pulse O2 O2 Flow FiO2 Mean Ox Delivery Rate 09/19 1754 98.2 98 17 171/93 118.7 98 Room air 09/19 0641 97.6 91 15 180/100 99 24 hour I O ending at 0700: 09/19 0700 09/18 1900 Intake Total Output Total Balance Patient 180 lb Weight Weight Stated/Reported Measurement Method Patient Weight Weight (lb): 179Weight (oz): 14.36Weight (kg): 81.600 General appearance: alert, awake, oriented, no acute distress, pleasantHead/Eyes: atraumatic, EOMI, normocephalic, PERRLAENT: moist mucosal membranesNeck: full range of motion, non-tender, no JVD, no lymphadenopathy, no masses orswellingCardiovascular: CV assessment: regular rate and rhythm, normal heart sounds, no murmur, no rub, no thrillRespiratory: clear to auscultation, no distressAbdomen: soft, non-tender, normal bowel soundsGenitourinary: no bladder distentionUpper extremity: UE assessment: no clubbing, no cyanosis, no edemaLower extremity: LE assessment: edema, no clubbing, no cyanosisMusculoskeletal: full range of motionNeuro/VACUUM FILTER OPERATOR: alert, oriented X 3, normal speechSkin: dry, intactWound/incision: Location:right groin surgical site, dressing dry and intact, no hematoma present ResultsFindings/Data:Laboratory Tests 09/19 1018 Chemistry POC Glucose (70 - 110 MG/DL) 155 H Laboratory Tests 09/19 0934 Coagulation Activated Coag Time (74 - 137 SEC) 246 H Diagnosis, Assessment Plan Free Text DxA P NotesFree Text DxA P Notes:Dusty Francois is a 59 year old male with PMHx of CAD s/p PCI to mid RCA and mid LAD, PVD, HLD, DM type 2, HTN and CKD who was admitted to the hospital for staged intervention of the RCA. 1. Multivessel Coronary artery disease- [facility] 09/19/2019: The LAD has proximal stent that is patent. Distal to the stent,gxkz-em-vcsnorte atherosclerosis. RCA, the mid stent is patent. Then, the three obtuse marginals have avfb-jc-ehbgmgev atherosclerosis. S/P Successful percutaneous intervention of proximal and mid RCA using two Synergy stents.- continue aspirin 81 mg daily- continue brilinta 90 mg BID- continue isorbide dinitrate 10 mg BID 2. HTN- resumed hydralazine 25 mg BID- resumed metoprolol 75 mg BID- will restart amlodipine if BP stays elevated- Hydralazine 10 mg Q4hrs PRN 3. HLD- continue statin Thank you for allowing us to participate in care of the patient. at 1818 RPT #:[id number] OF REPORTWZTjfjvsnvchio2965-28-81I09:00:00G.IYZN487 [id number] for patient dxyyQLJTCHBFPSIMJN1884-49-71W20:18:57 [facility] 2019-09-19 17:00:00 [id number]:00:00 [facility] ConsultationREPORT#:[id number] REPORT STATUS: SignedDATE:09/19/19 TIME: 1700 PATIENT: DUSTY FRANCOIS UNIT #: [id number]#: [id number] [address] [birth year] AGE: 59 SEX: M ATTEND: Darci Roldan AUTHOR: Tamara Oliveira * ALL edits or amendments must be made on the electronic/computer document * Tamara Oliveira 09/19/19 1700:History of Present Illness HPIRequesting Clinician: Dr. Darci Wesley for consult:s/p LHC with PCI to RCAChief complaint:Multivessel coronary artery disease Free Text HPI NotesFree Text HPI Notes:Dusty Francois is a 59 year old male with PMHx of CAD s/p PCI to mid RCA and mid LAD, PVD, HLD, DM type 2, HTN and CKD who was admitted to the hospital for staged intervention of the RCA. Patient underwent LHC today with successful percutaneous intervention of proximal and mid RCA using two Synergy stents. Patient denies chest pain, palpitations or shortness of breath. No acute distress noted. History - Adult longitudinalPast medical history:Reports: Diabetes mellitus, Kidney disease/stones (Chronic kidney disease), Prior [place]. Additional medical history:gastroparesis, CVAAdditional surgical history:Toe amputation, x2 cardiac stentsAdditional family history:Brother and Father CADAlcohol use: Denies EtOH useDrug use: Denies recreational drugsSmoking status for patients 13 years old or older: Never SmokerMedications:Home Medications:Medication Dose/Rte/Freq Days Qty Entered Last Max Daily Dose Reviewed INSULIN DETEMIR 10 UNITS SUBQ 09/18/18 09/19/19 (LEVEMIR) Q12HR 1951 0640Strength: 100 UNITS/MLVIAL FUROSEMIDE (LASIX) 40 MG PO 07/16/19 09/19/19Strength: 40 MG TAB BID PRN EDEMA 0151 0640 ATORVASTATIN (LIPITOR) 80 MG PO DAILY 09/15/19 09/19/19Strength: 80 MG TAB 0831 0640 TAMSULOSIN ER (FLOMAX) 0.4 MG PO BEDTIME 09/15/19 09/19/19Strength: 0.4 MG 0832 0640CAP.SR.24H INSULIN LISPRO 0 UNITS SUBQ BID 09/15/19 09/19/19 PROTAM/INSULIN LISPRO 0833 0640 (HumaLOG Mix 50/50 KWIKPEN)Strength: 100 UNITS/MLPEN.INJCTR POLYETHYLENE GLYCOL 17 GM PO DAILY 09/15/19 09/19/19 3350 0840 0640 (MIRALAX)Strength: 17 GM POWDER ISOSORBIDE DINITRATE 10 MG PO BID 07/16/19 09/19/19 (ISORDIL) 0146 0640Strength: 10 MG TAB CHOLECALCIFEROL 50,000 UNIT PO Q7D 07/16/19 09/19/19 (VITAMIN D3) 0149 0640 (VITAMIN D3)Strength: 50,000 UNIT CAP TICAGRELOR (BRILINTA) 90 MG PO BID 180 06/13/19 09/19/19Strength: 90 MG TAB 1259 0640 ASPIRIN 81 MG PO DAILY 90 06/13/19 09/19/19Strength: 81 MG TAB.CHEW 1300 0640 Current Hospital Medications:Anti-Infective Agents Sig/Jean Carlos Start time Last Medication Dose Route Stop Time Status Admin Cefazolin Sodium 0 .STK-MED ONE 09/19 0958 DC 09/19 (KEFZOL OR ANCEF) IV 1005 Autonomic Drugs Sig/Jean Carlos Start time Last Medication Dose Route Stop Time Status Admin Tamsulosin HCl 0.4 MG BEDTIME 09/19 2100 AC (Flomax 0.4 mg) PO 10/19 2059 Atropine Sulfate 0.5 MG ASDIR PRN 09/19 1000 AC (ATROPINE SULFATE IV 10/19 09 0.1MG/ML SYR) Blood Formation,Coagulation Sig/Jean Carlos Start time Last Medication Dose Route Stop Time Status Admin Ticagrelor 90 MG BID 09/19 2100 AC (BRILINTA) PO 10/19 2059 Heparin Sodium 0 .STK-MED ONE 09/19 0856 DC (HEPARIN SODIUM) .ROUTE Cardiovascular Drugs Sig/Jean Carlos Start time Last Medication Dose Route Stop Time Status Admin Atorvastatin Calcium 80 MG BEDTIME 09/19 2100 AC (LIPITOR) PO 10/19 2059 Isosorbide Dinitrate 10 MG BID 9A 5P 09/19 1700 AC (ISORDIL) PO 10/19 1659 Amlodipine Besylate 0 .STK-MED ONE 09/19 1312 DC (NORVASC) .ROUTE Amlodipine Besylate 10 MG ONCE ONE 09/19 1045 DC 09/19 (NORVASC) PO 09/19 1046 1315 Hydralazine HCl 10 MG Q4H PRN PRN 09/19 1045 AC (APRESOLINE) IV 10/19 1044 Hydralazine HCl 0 .STK-MED ONE 09/19 1037 DC (APRESOLINE) .ROUTE Lidocaine HCl 0 .STK-MED ONE 09/19 0855 DC 09/19 (LIDOCAINE HCL/PF) LOCAL 0903 Lidocaine HCl 2 ML ASDIR 09/15 0745 DC (XYLOCAINE MPF 2% LOCAL 10/15 07 2ML VIAL) Central Nervous System Agents Sig/Jean Carlos Start time Last Medication Dose Route Stop Time Status Admin Aspirin 81 MG DAILY 09/20 0900 AC (ASPIRIN) PO 10/20 0859 Acetaminophen 650 MG Q4H PRN PRN 09/19 1130 CAN (TYLENOL) PO 10/19 1129 Acetaminophen 650 MG Q6H PRN PRN 09/19 1000 AC (TYLENOL) PO 12/05 0959 Fentanyl Citrate 0 .STK-MED ONE 09/19 08 DC 09/19 (SUBLIMAZE) IV 09 Midazolam HCl 0 .STK-MED ONE 09/19 855 DC 09/19 (VERSED) IV 09 Electrolytic, Caloric, And Alex Sig/Jean Carlos Start time Last Medication Dose Route Stop Time Status Admin Sodium Chloride 125 ML ONCE ONE 09/19 1015 DC (SODIUM CHLORIDE IV 09/19 1016 0.9%) Sodium Chloride 1,000 ML .Q10H ONE 09/19 1000 CAN (SODIUM CHLORIDE IV 09/19 1959 0.9%) Sodium Chloride 500 ML ASDIR PRN 09/19 1000 AC (SODIUM CHLORIDE IV 10/19 09 0.9%) Furosemide 40 MG BID PRN PRN 09/19 0945 AC (LASIX) PO 10/19 944 Sodium Chloride 1,000 ML PREOP ASDIR 09/19 0500 DC (SODIUM CHLORIDE IV 10/19 0459 0.9%) Gastrointestinal Drugs Sig/Jean Carlos Start time Last Medication Dose Route Stop Time Status Admin Polyethylene Glycol 17 GM DAILY 09/20 0900 AC (MIRALAX) PO 10/20 0859 Al Hydrox/Mg Hydrox/ 30 ML Q4H PRN PRN 09/19 1130 AC Simethicone PO 10/19 1129 (MYLANTA) Docusate Sodium 100 MG BID PRN PRN 09/19 1130 AC (COLACE) PO 10/19 1129 Ondansetron HCl 4 MG Q4H PRN PRN 09/19 1130 AC (ZOFRAN) IV 10/19 1129 Ondansetron HCl 4 MG Q6H PRN PRN 09/19 1000 AC (ZOFRAN) IV 10/19 0959 Hormones And Synthetic Substit Sig/Jean Carlos Start time Last Medication Dose Route Stop Time Status Admin Insulin Glargine 10 UNIT Q12HR 09/19 2100 AC (Lantus) SUBQ 10/19 2059 Other Sig/Jean Carlos Start time Last Medication Dose Route Stop Time Status Admin Pharmacy Profile Note See Dose ASDIR 09/15 0745 DC (HOLD metFORMIN Insts (1) MISC 10/15 744 CONTAINING PRODUCTS) Dose Instructions:(1)Pharmacy Profile Note (HOLD metFORMIN CONTAINING PRODUCTS): HOLD METFORMIN ON DAY OF PROCEDURE AND 48 HOURS POST PROCEDURE Allergies:Coded Allergies:No Known Allergies (09/15/19) Review of SystemsConstitutional:Denies: chills, fever, generalized weakness. Skin:Denies: diaphoresis, rash, swelling. Eyes:Denies: visual loss/blurred. Respiratory:Denies: SORIANO (dyspnea on exertion), SOB, wheezing. Cardiovascular:Denies: chest pain, palpitations. GI:Denies: abdominal pain, diarrhea, nausea, vomiting. :Denies: dysuria. Heme:Denies: bleeding. Neuro:Denies: change in LOC, dizziness, lightheaded, syncope. All systems rev neg: except as marked Objective Physical ExamVS/I O:Vital Signs: Date Time Temp Pulse Resp B/P B/P Pulse O2 O2 Flow FiO2 Mean Ox Delivery Rate 09/19 1754 98.2 98 17 171/93 118.7 98 Room air 09/19 0641 97.6 91 15 180/100 99 24 hour I O ending at 0700: 09/19 0700 09/18 1900 Intake Total Output Total Balance Patient 180 lb Weight Weight Stated/Reported Measurement Method Patient Weight Weight (lb): 179Weight (oz): 14.36Weight (kg): 81.600 General appearance: alert, awake, oriented, no acute distress, pleasantHead/Eyes: atraumatic, EOMI, normocephalic, PERRLAENT: moist mucosal membranesNeck: full range of motion, non-tender, no JVD, no lymphadenopathy, no masses orswellingCardiovascular: CV assessment: regular rate and rhythm, normal heart sounds, no murmur, no rub, no thrillRespiratory: clear to auscultation, no distressAbdomen: soft, non-tender, normal bowel soundsGenitourinary: no bladder distentionUpper extremity: UE assessment: no clubbing, no cyanosis, no edemaLower extremity: LE assessment: edema, no clubbing, no cyanosisMusculoskeletal: full range of motionNeuro/VACUUM FILTER OPERATOR: alert, oriented X 3, normal speechSkin: dry, intactWound/incision: Location:right groin surgical site, dressing dry and intact, no hematoma present ResultsFindings/Data:Laboratory Tests 09/19 1018 Chemistry POC Glucose (70 - 110 MG/DL) 155 H Laboratory Tests 09/19 0934 Coagulation Activated Coag Time (74 - 137 SEC) 246 H Diagnosis, Assessment Plan Free Text DxA P NotesFree Text DxA P Notes:Dusty Francois is a 59 year old male with PMHx of CAD s/p PCI to mid RCA and mid LAD, PVD, HLD, DM type 2, HTN and CKD who was admitted to the hospital for staged intervention of the RCA. 1. Multivessel Coronary artery disease- [facility] 09/19/2019: The LAD has proximal stent that is patent. Distal to the stent,yvrq-fx-jimtrpkn atherosclerosis. RCA, the mid stent is patent. Then, the three obtuse marginals have tiaw-kc-edoqrmrd atherosclerosis. S/P Successful percutaneous intervention of proximal and mid RCA using two Synergy stents.- continue aspirin 81 mg daily- continue brilinta 90 mg BID- continue isorbide dinitrate 10 mg BID 2. HTN- resumed hydralazine 25 mg BID- resumed metoprolol 75 mg BID- will restart amlodipine if BP stays elevated- Hydralazine 10 mg Q4hrs PRN 3. HLD- continue statin Thank you for allowing us to participate in care of the patient. RaYvette ponce 10/29/19 1529:Diagnosis, Assessment Plan Free Text DxA P NotesFree Text DxA P Notes:Patient seen and examined, lab and imaging reviewed. I agree with the assessmentand plan as documented by the MEDICATION ADMINISTRATION PROFESSIONAL. at 1818 RPT #:[id number] OF REPORTHMChbunghkzkbk7489-65-00U82:00:00G.YVUF045 [id number] for patient mprcRTQFEVDOHMCXNS1224-95-73T07:29:32 [facility] 2019-09-19 17:00:00 [id number]:00:00 [facility] ([facility])Cardiology ConsultationREPORT#:[id number] REPORT STATUS: SignedDATE:09/19/19 TIME: 1700 PATIENT: DUSTY FRANCOIS UNIT #: [id number]#: [id number] ROOM[address]DOB: [birth year] AGE: 59 SEX: M ATTEND: Darci Roldan MDADM AUTHOR: Tamara Oliveira * ALL edits or amendments must be made on the electronic/computer document * Tamara Oliveira 09/19/19 1700:History of Present Illness HPIRequesting Clinician: Dr. Darci Wesley for consult:s/p LHC with PCI to RCAChief complaint:Multivessel coronary artery disease Free Text HPI NotesFree Text HPI Notes:Dusty Francois is a 59 year old male with PMHx of CAD s/p PCI to mid RCA and mid LAD, PVD, HLD, DM type 2, HTN and CKD who was admitted to the hospital for staged intervention of the RCA. Patient underwent LHC today with successful percutaneous intervention of proximal and mid RCA using two Synergy stents. Patient denies chest pain, palpitations or shortness of breath. No acute distress noted. History - Adult longitudinalPast medical history:Reports: Diabetes mellitus, Kidney disease/stones (Chronic kidney disease), Prior MN. Additional medical history:gastroparesis, CVAAdditional surgical history:Toe amputation, x2 cardiac stentsAdditional family history:Brother and Father CADAlcohol use: Denies EtOH useDrug use: Denies recreational drugsSmoking status for patients 13 years old or older: Never SmokerMedications:Home Medications:Medication Dose/Rte/Freq Days Qty Entered Last Max Daily Dose Reviewed INSULIN DETEMIR 10 UNITS SUBQ 09/18/18 09/19/19 (LEVEMIR) Q12HR 1951 0640Strength: 100 UNITS/MLVIAL FUROSEMIDE (LASIX) 40 MG PO 07/16/19 09/19/19Strength: 40 MG TAB BID PRN EDEMA 0151 0640 ATORVASTATIN (LIPITOR) 80 MG PO DAILY 09/15/19 09/19/19Strength: 80 MG TAB 0831 0640 TAMSULOSIN ER (FLOMAX) 0.4 MG PO BEDTIME 09/15/19 09/19/19Strength: 0.4 MG 0832 0640CAP.SR.24H INSULIN LISPRO 0 UNITS SUBQ BID 09/15/19 09/19/19 PROTAM/INSULIN LISPRO 0833 0640 (HumaLOG Mix 50/50 KWIKPEN)Strength: 100 UNITS/MLPEN.INJCTR POLYETHYLENE GLYCOL 17 GM PO DAILY 09/15/19 09/19/19 3350 0840 0640 (MIRALAX)Strength: 17 GM POWDER ISOSORBIDE DINITRATE 10 MG PO BID 07/16/19 09/19/19 (ISORDIL) 0146 0640Strength: 10 MG TAB CHOLECALCIFEROL 50,000 UNIT PO Q7D 07/16/19 09/19/19 (VITAMIN D3) 0149 0640 (VITAMIN D3)Strength: 50,000 UNIT CAP TICAGRELOR (BRILINTA) 90 MG PO BID 180 06/13/19 09/19/19Strength: 90 MG TAB 1259 0640 ASPIRIN 81 MG PO DAILY 90 06/13/19 09/19/19Strength: 81 MG TAB.CHEW 1300 0640 Current Hospital Medications:Anti-Infective Agents Sig/Jean Carlos Start time Last Medication Dose Route Stop Time Status Admin Cefazolin Sodium 0 .STK-MED ONE 09/19 0958 DC 09/19 (KEFZOL OR ANCEF) IV 1005 Autonomic Drugs Sig/Jean Carlos Start time Last Medication Dose Route Stop Time Status Admin Tamsulosin HCl 0.4 MG BEDTIME 09/19 2100 AC (Flomax 0.4 mg) PO 10/19 2059 Atropine Sulfate 0.5 MG ASDIR PRN 09/19 1000 AC (ATROPINE SULFATE IV 10/19 0959 0.1MG/ML SYR) Blood Formation,Coagulation Sig/Jean Carlos Start time Last Medication Dose Route Stop Time Status Admin Ticagrelor 90 MG BID 09/19 2100 AC (BRILINTA) PO 10/19 2059 Heparin Sodium 0 .STK-MED ONE 09/19 0856 DC (HEPARIN SODIUM) .ROUTE Cardiovascular Drugs Sig/Jean Carlos Start time Last Medication Dose Route Stop Time Status Admin Atorvastatin Calcium 80 MG BEDTIME 09/19 2100 AC (LIPITOR) PO 10/19 2059 Isosorbide Dinitrate 10 MG BID 9A 5P 09/19 1700 AC (ISORDIL) PO 10/19 165 Amlodipine Besylate 0 .STK-MED ONE 09/19 1312 DC (NORVASC) .ROUTE Amlodipine Besylate 10 MG ONCE ONE 09/19 1045 DC 09/19 (NORVASC) PO 09/19 1046 1315 Hydralazine HCl 10 MG Q4H PRN PRN 09/19 1045 AC (APRESOLINE) IV 10/19 1044 Hydralazine HCl 0 .STK-MED ONE 09/19 1037 DC (APRESOLINE) .ROUTE Lidocaine HCl 0 .STK-MED ONE 09/19 0855 DC 09/19 (LIDOCAINE HCL/PF) LOCAL 0903 Lidocaine HCl 2 ML ASDIR 09/15 0745 DC (XYLOCAINE MPF 2% LOCAL 10/15 07 2ML VIAL) Central Nervous System Agents Sig/Jean Carlos Start time Last Medication Dose Route Stop Time Status Admin Aspirin 81 MG DAILY 09/20 900 AC (ASPIRIN) PO 10/20 0859 Acetaminophen 650 MG Q4H PRN PRN 09/19 1130 CAN (TYLENOL) PO 10/19 1129 Acetaminophen 650 MG Q6H PRN PRN 09/19 1000 AC (TYLENOL) PO 10/19 0959 Fentanyl Citrate 0 .STK-MED ONE 09/19 855 DC 09/19 (SUBLIMAZE) IV 0917 Midazolam HCl 0 .STK-MED ONE 09/19 855 DC 09/19 (VERSED) IV 0917 Electrolytic, Caloric, And Alex Sig/Jean Carlos Start time Last Medication Dose Route Stop Time Status Admin Sodium Chloride 125 ML ONCE ONE 09/19 1015 DC (SODIUM CHLORIDE IV 09/19 1016 0.9%) Sodium Chloride 1,000 ML .Q10H ONE 09/19 1000 CAN (SODIUM CHLORIDE IV 09/19 1959 0.9%) Sodium Chloride 500 ML ASDIR PRN 09/19 1000 AC (SODIUM CHLORIDE IV 10/19 0959 0.9%) Furosemide 40 MG BID PRN PRN 09/19 0945 AC (LASIX) PO 10/19 0944 Sodium Chloride 1,000 ML PREOP ASDIR 09/19 0500 DC (SODIUM CHLORIDE IV 10/19 0459 0.9%) Gastrointestinal Drugs Sig/Jean Carlos Start time Last Medication Dose Route Stop Time Status Admin Polyethylene Glycol 17 GM DAILY 09/20 09 AC (MIRALAX) PO 10/20 0859 Al Hydrox/Mg Hydrox/ 30 ML Q4H PRN PRN 09/19 1130 AC Simethicone PO 10/19 1129 (MYLANTA) Docusate Sodium 100 MG BID PRN PRN 09/19 1130 AC (COLACE) PO 10/19 1129 Ondansetron HCl 4 MG Q4H PRN PRN 09/19 1130 AC (ZOFRAN) IV 10/19 1129 Ondansetron HCl 4 MG Q6H PRN PRN 09/19 1000 AC (ZOFRAN) IV 10/19 0959 Hormones And Synthetic Substit Sig/Jean Carlos Start time Last Medication Dose Route Stop Time Status Admin Insulin Glargine 10 UNIT Q12HR 09/19 2100 AC (Lantus) SUBQ 10/19 2059 Other Sig/Jean Carlos Start time Last Medication Dose Route Stop Time Status Admin Pharmacy Profile Note See Dose ASDIR 09/15 0745 DC (HOLD metFORMIN Insts (1) MISC 10/15 0744 CONTAINING PRODUCTS) Dose Instructions:(1)Pharmacy Profile Note (HOLD metFORMIN CONTAINING PRODUCTS): HOLD METFORMIN ON DAY OF PROCEDURE AND 48 HOURS POST PROCEDURE Allergies:Coded Allergies:No Known Allergies (09/15/19) Review of SystemsConstitutional:Denies: chills, fever, generalized weakness. Skin:Denies: diaphoresis, rash, swelling. Eyes:Denies: visual loss/blurred. Respiratory:Denies: SORIANO (dyspnea on exertion), SOB, wheezing. Cardiovascular:Denies: chest pain, palpitations. GI:Denies: abdominal pain, diarrhea, nausea, vomiting. :Denies: dysuria. Heme:Denies: bleeding. Neuro:Denies: change in LOC, dizziness, lightheaded, syncope. All systems rev neg: except as marked Objective Physical ExamVS/I O:Vital Signs: Date Time Temp Pulse Resp B/P B/P Pulse O2 O2 Flow FiO2 Mean Ox Delivery Rate 09/19 1754 98.2 98 17 171/93 118.7 98 Room air 09/19 0641 97.6 91 15 180/100 99 24 hour I O ending at 0700: 09/19 0700 09/18 1900 Intake Total Output Total Balance Patient 180 lb Weight Weight Stated/Reported Measurement Method Patient Weight Weight (lb): 179Weight (oz): 14.36Weight (kg): 81.600 General appearance: alert, awake, oriented, no acute distress, pleasantHead/Eyes: atraumatic, EOMI, normocephalic, PERRLAENT: moist mucosal membranesNeck: full range of motion, non-tender, no JVD, no lymphadenopathy, no masses orswellingCardiovascular: CV assessment: regular rate and rhythm, normal heart sounds, no murmur, no rub, no thrillRespiratory: clear to auscultation, no distressAbdomen: soft, non-tender, normal bowel soundsGenitourinary: no bladder distentionUpper extremity: UE assessment: no clubbing, no cyanosis, no edemaLower extremity: LE assessment: edema, no clubbing, no cyanosisMusculoskeletal: full range of motionNeuro/VACUUM FILTER OPERATOR: alert, oriented X 3, normal speechSkin: dry, intactWound/incision: Location:right groin surgical site, dressing dry and intact, no hematoma present ResultsFindings/Data:Laboratory Tests 09/19 1018 Chemistry POC Glucose (70 - 110 MG/DL) 155 H Laboratory Tests 09/19 0934 Coagulation Activated Coag Time (74 - 137 SEC) 246 H Diagnosis, Assessment Plan Free Text DxA P NotesFree Text DxA P Notes:Dusty Francois is a 59 year old male with PMHx of CAD s/p PCI to mid RCA and mid LAD, PVD, HLD, DM type 2, HTN and CKD who was admitted to the hospital for staged intervention of the RCA. 1. Multivessel Coronary artery disease- [facility] 09/19/2019: The LAD has proximal stent that is patent. Distal to the stent,tete-er-mkjsortv atherosclerosis. RCA, the mid stent is patent. Then, the three obtuse marginals have kzik-zi-dfttkcmz atherosclerosis. S/P Successful percutaneous intervention of proximal and mid RCA using two Synergy stents.- continue aspirin 81 mg daily- continue brilinta 90 mg BID- continue isorbide dinitrate 10 mg BID 2. HTN- resumed hydralazine 25 mg BID- resumed metoprolol 75 mg BID- will restart amlodipine if BP stays elevated- Hydralazine 10 mg Q4hrs PRN 3. HLD- continue statin Thank you for allowing us to participate in care of the patient. Yvette Rae 10/29/19 1529:Diagnosis, Assessment Plan Free Text DxA P NotesFree Text DxA P Notes:Patient seen and examined, lab and imaging reviewed. I agree with the assessmentand plan as documented by the MEDICATION ADMINISTRATION PROFESSIONAL. at 1818 at 1529 RPT #:[id number] OF REPORTOFZhkxfrajnsof7401-98-22H02:00:00G.IGPE971 [id number] for patient rjuyOHJEDNSEHNDHWI7910-22-08C20:29:51 [facility] 2019-09-19 10:33:00 [id number]:33:0011 [address] [place] [address] PATIENT NAME: DUSTY FRANCOIS ADMIT DATE: 09/19/19ACCOUNT NO: [id number] ROOM NO: G.3397 AGE: 59 REPORT TYPE: eELECTROCARDIOGRAM REPORT SEX: M ADMITTING PHYSICIAN:Darci Roldan MD ATTENDING PHYSICIAN:Darci Roldan MD Order:[id number] Reason : PCI Postprocedure Test Date/Time Stamp:WedSep 19 2019 10:33:14Blood Pressure : / mmHGVent. Rate : 089 BPM Atrial Rate : 089 BPM P-R Int : 148 ms QRS Dur : 082 ms QT Int : 380 ms P-R-T Axes : 072 100 003 degrees QTc Int : 462 ms Normal sinus rhythmRightward axisT wave abnormality, consider inferior ischemiaProlonged QTAbnormal ECGWhen compared with ECG of 15-SEP-2019 07:46,No significant change was foundConfirmed by ELVIRA HANCOCK MD ([id number]) on 09/21/2019 9:03:17 AM Referred By: Yvette Rae Confirmed by:ELVIRA HANCOCK MD at 0903 PATIENT NAME: DUSTY FRANCOIS .[id number] Available for patient unkfOHGPOOQSBFKVOW0472-72-61F03:03:37 [facility] 2019-09-19 10:33:00 [id number]:33:0011 07-[address] [address] PATIENT NAME: DUSTY FRANCOIS ADMIT DATE: 09/19/19ACCOUNT NO: [id number] ROOM NO: 3397 AGE: 59 REPORT TYPE: eELECTROCARDIOGRAM REPORT SEX: M ADMITTING PHYSICIAN:Darci Roldan MD ATTENDING PHYSICIAN:Darci Roldan MD Order:[id number] Reason : PCI Postprocedure Test Date/Time Stamp:WedSep 19 2019 10:33:14Blood Pressure : / mmHGVent. Rate : 089 BPM Atrial Rate : 089 BPM P-R Int : 148 ms QRS Dur : 082 ms QT Int : 380 ms P-R-T Axes : 072 100 003 degrees QTc Int : 462 ms Normal sinus rhythmRightward axisT wave abnormality, consider inferior ischemiaProlonged QTAbnormal ECGWhen compared with ECG of 15-SEP-2019 07:46,No significant change was foundConfirmed by ELVIRA HANCOCK MD ([id number]) on 09/21/2019 9:03:17 AMAlso confirmed by ELVIRA HANCOCK MD ([id number]) on 09/21/2019 9:03:48 AM Referred By: Yvette Rae Confirmed by:ELVIRA HANCOCK MD at 0903 PATIENT NAME: DUSTY FRANCOIS .[id number] Available for patient rvtrMXOPOOYEBJBIFR2667-77-68H27:04:02 [facility] 2019-09-19 10:17:00 [id number]:17:00 [facility]Cath Post Proc - BriefREPORT#:[id number] REPORT STATUS: SignedDATE:09/19/19 TIME: 1017 PATIENT: DUSTY FRANCOIS UNIT #: [id number]#: [id number] ROOM/BED: [facility]-7DOB: [birth year] AGE: 59 SEX: M ATTEND: Darci Roldan MDADM AUTHOR: Yvette Rae MD * ALL edits or amendments must be made on the electronic/computer document * Cath Procedure Cath ProcedurePost-procedure diagnosis: CADProcedure performed: diag coronary angiography, PCIPerformed by:Shantanusistant(s): noneFindings:[id number] blood loss in ml's: 0Specimens removed/altered: none at [facility] #:[id number] OF REPORTPNProcedure [id number]:17:00G.[id number] le for patient [id number]:18:18 [facility] 2019-09-19 10:13:00 [id number]:13:0011 [address] [place] [address] PATIENT NAME: DUSTY FRANCOIS ADMIT DATE: 09/19/19ACCOUNT NO: [id number] ROOM NO: .3397 AGE: 59 REPORT TYPE: CARDIAC CATHETERIZATION REPORT SEX: M ADMITTING PHYSICIAN:Darci Roldan MD ATTENDING PHYSICIAN:Darci Roldan MD PROCEDURE DATE: 09/19/2019 INDICATION:1. Multivessel coronary artery disease.2. Prior history of thrombotic occlusion of the circumflex, status postpercutaneous coronary intervention.3. Status post percutaneous coronary intervention of the left anteriordescending ____ complete revascularization.4. Prior history of stroke.5. Diabetes. PROCEDURES PERFORMED:1. Coronary angiogram.2. Percutaneous intervention of the proximal and mid right coronary artery.3. Moderate sedation for 45 minutes. DESCRIPTION OF THE PROCEDURE: After obtaining informed consent, the rightcommon femoral artery was accessed using modified Seldinger technique. A6-Somali sheath was placed initially, then it was upsized to 7.3 sheath. Therewas bit of oozing around on the access site. Then, we went with a hockey stickguide, it was positioned into the right coronary artery where coaxial. Then, wewent with Samurai wire, we crossed the stenosis. Then, we performed balloonangioplasty using 2.5 x 15 semi-compliant balloon. Then, we deployed a 3.0 x 28Synergy stent from mid to proximal, then we postdilated with 3.5 x 15 NCballoon. After taking an angiogram showing there was some dissection proximalto the stent, we went with x 4.0 x 16 Synergy stent overlapping the prior stentand then a stent proximally and then dissection flap was tacked. Post-angiogramshowed that the stent was expanded, well opposed, no edge dissection and noperforation. LEFT HEART CATHETERIZATION: FINDINGS: Left main has luminal irregularities, divides to an LAD andcircumflex. The LAD has proximal stent that is patent. Distal to the stent,vyie-to-skstjfal atherosclerosis. RCA, the mid stent is patent. Then, thethree obtuse marginals have kkwn-lv-nyknrnlq atherosclerosis. CONCLUSION:1. Successful percutaneous intervention of proximal and mid RCA using twoSynergy stents.2. Patent circumflex and LAD stent.PATIENT NAME: DUSTY FRANCOIS RECOMMENDATIONS: Continue aspirin and Brilinta. Thank you for allowing me to participate in the care of this patient. Dictated By: Yvette Rae MD WT: CATH:GJALEN/KRYSTYNA/KENDD: 09/19/2019 10:13:26DT: 09/19/2019 11:08:38Conf#: [id number]/DID#: [id number] Authenticated by Yvette Rae MD On 10/29/2019 04:02:17 PM at 1602 PATIENT NAME: DUSTY FRANCOIS Zngy6582-19-74Q62:08:00G.[id number] e for patient uzovXSTAXKRUMOYFLS2728-93-32N77:02:57 [facility] 2019-09-15 07:46:00 [id number]:46:[address] [address] PATIENT NAME: DUSTY FRANCOIS ADMIT DATE: ACCOUNT NO: [id number] ROOM NO: AGE: 59 REPORT TYPE: eELECTROCARDIOGRAM REPORT SEX: M ADMITTING PHYSICIAN: ATTENDING PHYSICIAN:Yvette Rae MD Order:[id number] Reason : PRE-OP [facility] Test Date/Time Stamp:WedSep 15 2019 07:46:51Blood Pressure : / mmHGVent. Rate : 096 BPM Atrial Rate : 096 BPM P-R Int : 144 ms QRS Dur : 080 ms QT Int : 372 ms P-R-T Axes : 069 105 -11 degrees QTc Int : 469 ms Normal sinus rhythmRightward axisNonspecific ST and T wave abnormalityAbnormal ECGPRE_OPConfirmed by ASHLIE HINSON MD ([id number]) on 09/15/2019 9:46:47 AM Referred By: Yvette Rae Confirmed by:ASHLIE HINSON MD at 0947 PATIENT NAME: DUSTY FRANCOIS .[id number] Available for patient qhvqZLQPQMHYDJUOLJ3422-21-04B10:47:18 [facility] 2019-08-21 13:41:00 [id number]:41:00 [facility] ([facility])EMERGENCY PROVIDER REPORTREPORT#:[id number] REPORT STATUS: SignedDATE:08/21/19 TIME: 1341 PATIENT: DUSTY FRANCOIS UNIT #: [id number]#: [id number] ROOM/BED:AGE: 59 SEX: M PCP PHYS: No Primary or Family PhysicianSERVICE AUTHOR: Penny Shay * ALL edits or amendments must be made on the electronic/computer document * HPI- Male GeneralConfirmed Patient YesPatient Type New patientInitial Greet Date/Time 08/21/19 1332 PresentationChief Complaint URINARY RETENTION (LOWER ABDOMINAL PAIN)Hx Obtained From PatientOnset Occurred Today (99)Symptom Duration Since onsetProgression since Onset Unchanged ContextSimilar Sx Previous Yes Free Text HPI NotesFree Text HPI Notes59 year old male presents to ER unable to urinate since 0100 this am and constipation; he reports hx of CAD, [place], DM, pneumonia; he states he was seen forsimiliar sx 08/08/19, that wallace catheter inserted and he was discharged w leg bag, to follow up with urology; denies recent dysuria, fever, n/v or any other assoc sx Risk- Male Risk StratificationTorsion Risk factors reviewed Review of Systems ROS StatementsAll systems rev neg except as marked. Past Medical History - AdultStated Complaint CONSTIPATED AND CAN'T PEEAllergiesCoded Allergies:No Known Allergies (08/21/19) Home MedicationsActive ScriptsTICAGRELOR (BRILINTA) 90 MG PO BID TICAGRELOR (BRILINTA) 90 MG PO BID #180 TAB Ref 4 Prov: 06/13/19ATORVASTATIN (LIPITOR) 80 MG PO DAILY 1700 ATORVASTATIN (LIPITOR) 80 MG PO DAILY 1700 #90 TAB Ref 4 Prov: 06/13/19METOPROLOL SUCC XL (TOPROL XL) 75 MG PO BID METOPROLOL SUCC XL (TOPROL XL) 75 MG PO BID #180 TAB Ref 4 Prov: 06/13/19ASPIRIN 81 MG PO DAILY ASPIRIN 81 MG PO DAILY #90 TAB Ref 4 Prov: 06/13/19 Reported MedicationsINSULIN DETEMIR (LEVEMIR) 10 UNITS SUBQ Q12HR ISOSORBIDE DINITRATE (ISORDIL) 10 MG PO BID CHOLECALCIFEROL (VITAMIN D3) (VITAMIN D3) 50,000 UNIT PO Q7D hydrALAZINE (APRESOLINE) 25 MG PO BID FUROSEMIDE (LASIX) 40 MG PO BID Past Medical History:Reports: Diabetes mellitus, Kidney disease/stones (Chronic kidney disease), Prior [place]. Additional Medical Historygastroparesis, CVAAdditional Surgical HistoryToe amputation, x2 cardiac stentsAdditional Family HistoryBrother and Father CADAlcohol Use Denies EtOH useDrug Use Denies recreational drugs Physical Exam Vital SignsVital SignsFirst Documented: Result Date Time Pulse Ox 100 10/07 1359 B/P 133/79 08/21 1359 B/P Mean 97 08/21 1359 O2 Delivery Room air 08/21 1359 Temp 36.6 08/21 1359 Pulse 70 08/21 1359 Resp 16 08/21 1359 Last Documented: Result Date Time Pulse Ox 100 08/21 1359 B/P 133/79 08/21 135 B/P Mean 97 08/21 1359 O2 Delivery Room air 08/21 1359 Temp 36.6 08/21 1359 Pulse 70 08/21 1359 Resp 16 08/21 1359 Review of Vital Signs Reviewed Focused PEGeneral/Const General/Const Alert, CooperativeAbdomen/GI Abdomen/GI Soft, No guarding, No rebound, BS normoactive (bladder distention present)Skin Skin Warm, Dry, Intact Additional PEMS Head Head NormocephalicEyes Eyes PERRL, Conjunctiva NL, Cornea clearEars/Nose/Throat Ears/Nose/Throat Mucous membranes moist, Pharynx NL, Tympanic membs NL, Ext aud canal NLMS Neck Neck Supple, Non-tenderResp/Chest Respiratory/Chest Breath sounds NL, Breath sounds = bilat, No rales, No rhonchi, No wheezingCardiovascular Cardiovascular Heart rate NL, Regular rhythm, Heart sounds NLMS Back Back Inspection NL, Non-tenderNeurologic Neurologic Oriented X3, Speech NL, No motor deficits, No sensory deficits, Gait NL Interpretation Diagnostics Point of Care TestingPulse Oximetry Pulse Ox % 98 On: Room air Interpretation Interpreted by me, Pulse oximetry normal Re-Evaluation MDM Free Text MDM NotesFree Text MDM Notespt eloped prior to being treated Patient Discharge Departure Vital Signs/ConditionVital SignsFirst Documented: Result Date Time Pulse Ox 100 08/21 1359 B/P 133/79 08/21 135 B/P Mean 97 08/21 1359 O2 Delivery Room air 08/21 1359 Temp 36.6 08/21 1359 Pulse 70 08/21 1359 Resp 16 08/21 1359 Last Documented: Result Date Time Pulse Ox 100 08/21 1359 B/P 133/79 08/21 1359 B/P Mean 97 08/21 1359 O2 Delivery Room air 08/21 1359 Temp 36.6 08/21 1359 Pulse 70 08/21 1359 Resp 16 08/21 1359 All vital signs available at the time of this entry have been reviewed. Disposition DecisionOther )( Time 1613 )( Date 08/21/19 Against Medical Advice Yes Elopement Note Elopement NoteThis patient has left the emergency department or waiting room with no communication to myself, nursing or administrative staff. There was no opportunity to discuss the patient's decision to leave, provide medical advice or discuss alternatives to leaving. The staff has made efforts to locate the patient without success. Supervising Physician Note Scribe Penny Haque, 08/21/19 1351, scribing for and in the presence of .Signed By: Penny Shay, 08/21/19 1351 Provider Scribed StatementI personally performed the services described in this documentation and reviewedthe documentation that was dictated to the scribe(s) in my presence, and it accurately records my words and actions. Penny Shay, 08/21/19 at 1614RPT #:[id number] OF REPORTEDEmerdallas county medical center department [id number]:41:00G.[id number] able for patient [id number]:15:04 [facility] 2019-08-21 13:41:00 [id number]:41:00 H [place] [facility] ([facility])EMERGENCY PROVIDER REPORTREPORT#:[id number] REPORT STATUS: SignedDATE:08/21/19 TIME: 1341 PATIENT: DUSTY FRANCOIS UNIT #: [id number]#: [id number] ROOM/BED:AGE: 59 SEX: M PCP PHYS: No Primary or Family PhysicianSERVICE AUTHOR: Penny Shay * ALL edits or amendments must be made on the electronic/computer document * Penny Shay 08/21/19 1341:HPI- Male GeneralConfirmed Patient YesPatient Type New patient PresentationChief Complaint URINARY RETENTION (LOWER ABDOMINAL PAIN)Hx Obtained From PatientOnset Occurred Today (0100)Symptom Duration Since onsetProgression since Onset Unchanged ContextSimilar Sx Previous Yes Free Text HPI NotesFree Text HPI Notes59 year old male presents to ER unable to urinate since 0100 this am and constipation; he reports hx of CAD, [place], DM, pneumonia; he states he was seen forsimiliar sx 08/08/19, that wallace catheter inserted and he was discharged w leg bag, to follow up with urology; denies recent dysuria, fever, n/v or any other assoc sx Risk- Male Risk StratificationTorsion Risk factors reviewed Review of Systems ROS StatementsAll systems rev neg except as marked. Past Medical History - AdultStated Complaint CONSTIPATED AND CAN'T PEEAllergiesCoded Allergies:No Known Allergies (08/21/19) Home MedicationsActive ScriptsTICAGRELOR (BRILINTA) 90 MG PO BID TICAGRELOR (BRILINTA) 90 MG PO BID #180 TAB Ref 4 Prov: 06/13/19ATORVASTATIN (LIPITOR) 80 MG PO DAILY 1700 ATORVASTATIN (LIPITOR) 80 MG PO DAILY 1700 #90 TAB Ref 4 Prov: 06/13/19METOPROLOL SUCC XL (TOPROL XL) 75 MG PO BID METOPROLOL SUCC XL (TOPROL XL) 75 MG PO BID #180 TAB Ref 4 Prov: 06/13/19ASPIRIN 81 MG PO DAILY ASPIRIN 81 MG PO DAILY #90 TAB Ref 4 Prov: 06/13/19 Reported MedicationsINSULIN DETEMIR (LEVEMIR) 10 UNITS SUBQ Q12HR ISOSORBIDE DINITRATE (ISORDIL) 10 MG PO BID CHOLECALCIFEROL (VITAMIN D3) (VITAMIN D3) 50,000 UNIT PO Q7D hydrALAZINE (APRESOLINE) 25 MG PO BID FUROSEMIDE (LASIX) 40 MG PO BID Past Medical History:Reports: Diabetes mellitus, Kidney disease/stones (Chronic kidney disease), Prior [place]. Additional Medical Historygastroparesis, CVAAdditional Surgical HistoryToe amputation, x2 cardiac stentsAdditional Family HistoryBrother and Father CADAlcohol Use Denies EtOH useDrug Use Denies recreational drugs Physical Exam Vital SignsVital SignsFirst Documented: Result Date Time Pulse Ox 100 08/21 1359 B/P 133/79 08/21 1359 B/P Mean 97 08/21 1359 O2 Delivery Room air 08/21 1359 Temp 97.9 08/21 1359 Pulse 70 08/21 1359 Resp 16 08/21 1359 Last Documented: Result Date Time Pulse Ox 100 08/21 1359 B/P 133/79 08/21 1359 B/P Mean 97 08/21 135 O2 Delivery Room air 08/21 1359 Temp 97.9 08/21 1359 Pulse 70 08/21 1359 Resp 16 08/21 1359 Review of Vital Signs Reviewed Focused PEGeneral/Const General/Const Alert, CooperativeAbdomen/GI Abdomen/GI Soft, No guarding, No rebound, BS normoactive (bladder distention present)Skin Skin Warm, Dry, Intact Additional PEMS Head Head NormocephalicEyes Eyes PERRL, Conjunctiva NL, Cornea clearEars/Nose/Throat Ears/Nose/Throat Mucous membranes moist, Pharynx NL, Tympanic membs NL, Ext aud canal NLMS Neck Neck Supple, Non-tenderResp/Chest Respiratory/Chest Breath sounds NL, Breath sounds = bilat, No rales, No rhonchi, No wheezingCardiovascular Cardiovascular Heart rate NL, Regular rhythm, Heart sounds NLMS Back Back Inspection NL, Non-tenderNeurologic Neurologic Oriented X3, Speech NL, No motor deficits, No sensory deficits, Gait NL Interpretation Diagnostics Point of Care TestingPulse Oximetry Pulse Ox % 98 On: Room air Interpretation Interpreted by me, Pulse oximetry normal Re-Evaluation MDM Free Text MDM NotesFree Text MDM Notespt eloped prior to being treated Patient Discharge Departure Vital Signs/ConditionVital SignsFirst Documented: Result Date Time Pulse Ox 100 08/21 1359 B/P 133/79 08/21 135 B/P Mean 97 08/21 1359 O2 Delivery Room air 08/21 1359 Temp 97.9 08/21 1359 Pulse 70 08/21 135 Resp 16 08/21 1359 Last Documented: Result Date Time Pulse Ox 100 08/21 1359 B/P 133/79 08/21 1359 B/P Mean 97 08/21 135 O2 Delivery Room air 08/21 1359 Temp 97.9 08/21 1359 Pulse 70 08/21 1359 Resp 16 08/21 1359 All vital signs available at the time of this entry have been reviewed. Disposition DecisionOther )( Time 1613 )( Date 08/21/19 Against Medical Advice Yes Elopement Note Elopement NoteThis patient has left the emergency department or waiting room with no communication to myself, nursing or administrative staff. There was no opportunity to discuss the patient's decision to leave, provide medical advice or discuss alternatives to leaving. The staff has made efforts to locate the patient without success. Supervising Physician Note Scribe StatementSPenny orourke., 08/21/19 1351, scribing for and in the presence of .Signed By: Penny Shay, 08/21/19 1351 Provider Scribed StatementI personally performed the services described in this documentation and reviewedthe documentation that was dictated to the scribe(s) in my presence, and it accurately records my words and actions. Penny Shay., 08/21/19 Demarcus Fuentes. 08/22/19 0714:HPI- Male GeneralInitial Greet Date/Time 08/21/19 1332 Patient Discharge Departure Clinical ImpressionClinical ImpressionPrimary Impression: Urinary retention Supervising Physician Note MidLv Saw Pt AloneI have reviewed the PA/MEDICATION ADMINISTRATION PROFESSIONAL's note and plan of care. I was available for consultation as needed at all times during the patient's visit in the emergency department. I agree with the clinical impression, plan and disposition. at 1614 at 0715RPT #:[id number] OF REPORTEDEmerdallas county medical center department [id number]:41:00G.[id number] able for patient [id number]:15:30 [facility] 2019-08-10 18:51:00 [id number]:51:00 H [facility] ([facility])EMERGENCY PROVIDER REPORTREPORT#:[id number] REPORT STATUS: SignedDATE:08/10/19 TIME:1850 PATIENT: DUSTY FRANCOIS UNIT #: [id number]#: [id number] ROOM/BED:: 62 AGE: 58 SEX: M PCP PHYS: No Primary or Family PhysicianSERVICE AUTHOR: Zoila Spencer I MEDICATION ADMINISTRATION PROFESSIONAL * ALL edits or amendments must be made on the electronic/computer document * HPI- Male GeneralConfirmed Patient YesPatient Type New patientInitial Greet Date/Time 08/10/19 180 PresentationChief Complaint Wants wallace removedHx Obtained From PatientOnset Occurred GradualProgression since Onset UnchangedContext of Onset FoleyCaused by foleySeverity: Current No pain currentlyAssociated withDenies: Abdominal pain, Abrasion, Anorexia, Cannot retract foreskin, Chills, Constipation, Fever, Hematemesis, Laceration, Loss of consciousness, Nausea, Penile discharge, Rash, Scrotal erythema, Scrotal swelling, UTI symptoms, Vomiting. Associated Other Pt denies other symptomsExacerbated by NothingRelieved by Nothing Free Text HPI NotesFree Text HPI Notes58 yo male with hx of urinary retention when constipated presents to ED for wallace removal due to irritation. Patient was seen here 3 days ago and had a wallace placed in for urinary retention and was told to follow up with Dr. Long, urology, but patient's insurance does not cover the visit and is being referred by PCP to a urologist on his plan. Reports he has had 3 BMs, denies any fever, chills, flank pain, abdominal pain, nausea or vomiting. Risk- Male Risk StratificationTorsion Risk factors reviewed, No risk factors Review of Systems ROS StatementsAll systems rev neg except as marked. Focused Review of SystemsConstitutionalDenies: Chills, Fever, Lethargy. GIDenies: Abdominal pain, Diarrhea, Nausea, Vomiting. MaleReports: Dysuria (irritation ). MusculoskeletalDenies: Back pain, Extremity pain. SkinDenies: Diaphoresis, Rash. Past Medical History - AdultStated Complaint WALLACE REMOVALAllergiesCoded Allergies:No Known Allergies (09/21/18) Home MedicationsActive ScriptsTICAGRELOR (BRILINTA) 90 MG PO BID TICAGRELOR (BRILINTA) 90 MG PO BID #180 TAB Ref 4 Prov: 06/13/19ATORVASTATIN (LIPITOR) 80 MG PO DAILY 1700 ATORVASTATIN (LIPITOR) 80 MG PO DAILY 1700 #90 TAB Ref 4 Prov: 06/13/19METOPROLOL SUCC XL (TOPROL XL) 75 MG PO BID METOPROLOL SUCC XL (TOPROL XL) 75 MG PO BID #180 TAB Ref 4 Prov: 06/13/19ASPIRIN 81 MG PO DAILY ASPIRIN 81 MG PO DAILY #90 TAB Ref 4 Prov: 06/13/19 Reported MedicationsINSULIN DETEMIR (LEVEMIR) 10 UNITS SUBQ Q12HR ISOSORBIDE DINITRATE (ISORDIL) 10 MG PO BID CHOLECALCIFEROL (VITAMIN D3) (VITAMIN D3) 50,000 UNIT PO Q7D hydrALAZINE (APRESOLINE) 25 MG PO BID FUROSEMIDE (LASIX) 40 MG PO BID Review of Nursing Notes Rev avail, and agree (triage only)Past Medical History:Reports: Diabetes mellitus, Kidney disease/stones (Chronic kidney disease), Prior [place]. Additional Medical Historygastroparesis, CVAAdditional Surgical HistoryToe amputation, x2 cardiac stentsAdditional Family HistoryBrother and Father CADAlcohol Use Denies EtOH useDrug Use Denies recreational drugsSmoking status for patients 13 years old or older: Never Smoker Physical Exam Vital SignsVital SignsFirst Documented: Result Date Time Pulse Ox 98 08/10 1800 B/P 120/75 08/10 1800 B/P Mean 90 08/10 1800 O2 Delivery Room air 08/10 1800 Temp 98.0 08/10 1800 Pulse 77 08/10 1800 Resp 18 08/10 1800 Last Documented: Result Date Time Pulse Ox 98 08/10 1800 B/P 120/75 08/10 1800 B/P Mean 90 08/10 1800 O2 Delivery Room air 08/10 1800 Temp 98.0 08/10 1800 Pulse 77 08/10 1800 Resp 18 08/10 1800 Review of Vital Signs Reviewed Focused PEGeneral/Const General/Const Awake, Alert, No acute distress, Well appearing, Well developed, Well hydrated, Well nourished, Cooperative, Not toxic appearingAbdomen/GI Abdomen/GI Atraumatic, Soft, Non-tender, McBurney's non-tender, No guarding, No rebound, BS normoactive, No distentionSkin Skin Color NL, No rash, Warm, Dry, Turgor NLGenitourinary Text/Dict NotesFoley in place, CRISTINA wallace with no complication after evaluation. Additional PEMS Head Head AtraumaticResp/Chest Respiratory/Chest Atraumatic, Breath sounds NL, Breath sounds = bilat, No respiratory distress, No rales, No rhonchi, No wheezing, No retractionsCardiovascular Cardiovascular Heart rate NL, Regular rhythm, Heart sounds NL, Cap refill notdelayed, Peripheral circulation NLMS Back Back Atraumatic, Full range of motion, No CVA tendernessNeurologic Neurologic Oriented X3, Speech NL, Gait NLPsychiatric Psychiatric Affect NL, Mood NL Interpretation Diagnostics Lab Results InterpretationResultsLaboratory Tests: 08/10 1931 Urines Urine Color (YEL/STRAW discript) YELLOW Urine Appearance (CLEAR discript) CLOUDY H Urine pH (5.0 - 7.0 pH UNITS) 5.5 Ur Specific Center Line (1.005 - 1.030 SG) >=1.030 H Urine Protein (NEG mg/dL) 3+ H Urine Glucose (UA) (NEG mg/dL) 1+ Urine Ketones (NEG mg/dL) NEGATIVE Urine Blood (NEG mg/DL) 3+ H Urine Nitrite (NEG SCREEN) NEGATIVE Urine Bilirubin (NEG mg/dL) NEGATIVE Urine Urobilinogen (<2.0 mg/dL) 0.2 Ur Leukocyte Esterase (NEGATIVE Leuk/mcL) 2+ H Urine RBC (0 - 3 #RBC/HPF) 10-20 H Urine WBC (0 - 3 #WBC/HPF) 20-30 H Ur Squamous Epith Cells (NONE /HPF) 1+ Urine Bacteria (NONE - TRACE /HPF) NONE SEEN Hyaline Casts (0 - 3 #/LPF) 10-15 H Urine Sperm (NONE SEEN /HPF) 4+ H Urine Culture Screen (Culture CHK Criteria) NO, WBC>10 EPI>25 Lab StatementLaboratory studies reviewed and considered in the medical decision-making. Point of Care TestingPulse Oximetry Pulse Ox % 98 On: Room air Interpretation Interpreted by me, Pulse oximetry normal Re-Evaluation MDM Free Text MDM NotesAdditional TextPatient voided after wallace was DCed. Okay to DC home and follow up with urology of Health insurance choice after PCP follow up. Return precautions given. Patient Discharge Departure Vital Signs/ConditionVital SignsFirst Documented: Result Date Time Pulse Ox 98 08/10 1800 B/P 120/75 08/10 1800 B/P Mean 90 08/10 1800 O2 Delivery Room air 08/10 1800 Temp 98.0 08/10 1800 Pulse 77 08/10 1800 Resp 18 08/10 1800 Last Documented: Result Date Time Pulse Ox 98 08/10 1800 B/P 120/75 08/10 1800 B/P Mean 90 08/10 1800 O2 Delivery Room air 08/10 1800 Temp 98.0 08/10 1800 Pulse 77 08/10 1800 Resp 18 08/10 1800 All vital signs available at the time of this entry have been reviewed. Condition Stable Clinical ImpressionClinical ImpressionPrimary Impression: Encounter for Wallace catheter removalSecondary Impressions: UTI (urinary tract infection) Disposition DecisionDischarge )( Discharged to Home Yes )( Time 2001 )( Date 08/10/19 Discharge/Care PlanCounseled Regarding Diagnosis, Lab results, Prescriptions, Need for follow-up, When to return to EDPrescriptionscefdinirPrescriptions Reviewed Risks, Benefits, Alternative treatment Discharge NoteI have spoken with the patient and/or caregivers. I have explained the patient'scondition, diagnoses and treatment plan based on the information available to meat this time. I have answered the patient's and/or caregiver's questions and addressed any concerns. The patient and/or caregivers have as good an understanding of the patient's diagnosis, condition and treatment plan as can beexpected at this point. The vital signs have been stable. The patient's condition is stable and appropriate for discharge from the emergency department. The patient will pursue further outpatient evaluation with the primary care physician or other designated or consulting physician as outlined in the discharge instructions. The patient and/or caregivers are agreeable to this planof care and follow-up instructions have been explained in detail. The patient and/or caregivers have received these instructions in written format and have expressed an understanding of the discharge instructions. The patient and/or caregivers are aware that any significant change in condition or worsening of symptoms should prompt an immediate return to this or the closest emergency department or a call to 911. at 2032 [facility] #: [id number] OF REPORTCedar Park [facility] department [id number]:51:00L.[id number] able for patient [id number]:32:56 [facility] 2019-08-10 18:51:00 [id number]:51:00 [facility] PROVID[facility] REPORTREPORT#:[id number] REPORT STATUS: SignedDATE:08/10/19 TIME:1850 PATIENT: DUSTY FRANCOIS UNIT #: [id number]#: [id number] ROOM/BED:: 62 AGE: 59 SEX: M PCP PHYS: No Primary or Family PhysicianSERVICE AUTHOR: Zoila Spencer I MEDICATION ADMINISTRATION PROFESSIONAL * ALL edits or amendments must be made on the electronic/computer document * Zoila Spencer 08/10/19 1851:HPI- Male GeneralConfirmed Patient YesPatient Type New patient PresentationChief Complaint Wants wallace removedHx Obtained From PatientOnset Occurred GradualProgression since Onset UnchangedContext of Onset FoleyCaused by foleySeverity: Current No pain currentlyAssociated withDenies: Abdominal pain, Abrasion, Anorexia, Cannot retract foreskin, Chills, Constipation, Fever, Hematemesis, Laceration, Loss of consciousness, Nausea, Penile discharge, Rash, Scrotal erythema, Scrotal swelling, UTI symptoms, Vomiting. Associated Other Pt denies other symptomsExacerbated by NothingRelieved by Nothing Free Text HPI NotesFree Text HPI Notes58 yo male with hx of urinary retention when constipated presents to ED for wallace removal due to irritation. Patient was seen here 3 days ago and had a wallace placed in for urinary retention and was told to follow up with Dr. Long, urology, but patient's insurance does not cover the visit and is being referred by PCP to a urologist on his plan. Reports he has had 3 BMs, denies any fever, chills, flank pain, abdominal pain, nausea or vomiting. Risk- Male Risk StratificationTorsion Risk factors reviewed, No risk factors Review of Systems ROS StatementsAll systems rev neg except as marked. Focused Review of SystemsConstitutionalDenies: Chills, Fever, Lethargy. GIDenies: Abdominal pain, Diarrhea, Nausea, Vomiting. MaleReports: Dysuria (irritation ). MusculoskeletalDenies: Back pain, Extremity pain. SkinDenies: Diaphoresis, Rash. Past Medical History - AdultStated Complaint WALLACE REMOVALAllergiesCoded Allergies:No Known Allergies (09/21/18) Home MedicationsActive ScriptsTICAGRELOR (BRILINTA) 90 MG PO BID TICAGRELOR (BRILINTA) 90 MG PO BID #180 TAB Ref 4 Prov: 06/13/19ATORVASTATIN (LIPITOR) 80 MG PO DAILY 1700 ATORVASTATIN (LIPITOR) 80 MG PO DAILY 1700 #90 TAB Ref 4 Prov: 06/13/19METOPROLOL SUCC XL (TOPROL XL) 75 MG PO BID METOPROLOL SUCC XL (TOPROL XL) 75 MG PO BID #180 TAB Ref 4 Prov: 06/13/19ASPIRIN 81 MG PO DAILY ASPIRIN 81 MG PO DAILY #90 TAB Ref 4 Prov: 06/13/19 Reported MedicationsINSULIN DETEMIR (LEVEMIR) 10 UNITS SUBQ Q12HR ISOSORBIDE DINITRATE (ISORDIL) 10 MG PO BID CHOLECALCIFEROL (VITAMIN D3) (VITAMIN D3) 50,000 UNIT PO Q7D hydrALAZINE (APRESOLINE) 25 MG PO BID FUROSEMIDE (LASIX) 40 MG PO BID Review of Nursing Notes Rev avail, and agree (triage only)Past Medical History:Reports: Diabetes mellitus, Kidney disease/stones (Chronic kidney disease), Prior [place]. Additional Medical Historygastroparesis, CVAAdditional Surgical HistoryToe amputation, x2 cardiac stentsAdditional Family HistoryBrother and Father CADAlcohol Use Denies EtOH useDrug Use Denies recreational drugsSmoking status for patients 13 years old or older: Never Smoker Physical Exam Vital SignsVital SignsFirst Documented: Result Date Time Pulse Ox 98 08/10 1800 B/P 120/75 08/10 1800 B/P Mean 90 08/10 1800 O2 Delivery Room air 08/10 1800 Temp 36.7 08/10 1800 Pulse 77 08/10 1800 Resp 08/10 1800 Last Documented: Result Date Time Pulse Ox 98 08/10 2004 B/P 118/70 08/10 2004 B/P Mean 86 08/10 2004 O2 Delivery Room air 08/10 2004 Temp 36.7 08/10 2004 Pulse 71 08/10 2004 Resp 18 08/10 2004 Review of Vital Signs Reviewed Focused PEGeneral/Const General/Const Awake, Alert, No acute distress, Well appearing, Well developed, Well hydrated, Well nourished, Cooperative, Not toxic appearingAbdomen/GI Abdomen/GI Atraumatic, Soft, Non-tender, McBurney's non-tender, No guarding, No rebound, BS normoactive, No distentionSkin Skin Color NL, No rash, Warm, Dry, Turgor NLGenitourinary Text/Dict NotesFoley in place, RN JUAN FD tonny with no complication after evaluation. Additional PEMS Head Head AtraumaticResp/Chest Respiratory/Chest Atraumatic, Breath sounds NL, Breath sounds = bilat, No respiratory distress, No rales, No rhonchi, No wheezing, No retractionsCardiovascular Cardiovascular Heart rate NL, Regular rhythm, Heart sounds NL, Cap refill notdelayed, Peripheral circulation NLMS Back Back Atraumatic, Full range of motion, No CVA tendernessNeurologic Neurologic Oriented X3, Speech NL, Gait NLPsychiatric Psychiatric Affect NL, Mood NL Interpretation Diagnostics Lab Results InterpretationResultsLaboratory Tests: 08/10 1931 Urines Urine Color (YEL/STRAW discript) YELLOW Urine Appearance (CLEAR discript) CLOUDY H Urine pH (5.0 - 7.0 pH UNITS) 5.5 Ur Specific Center Line (1.005 - 1.030 SG) >=1.030 H Urine Protein (NEG mg/dL) 3+ H Urine Glucose (UA) (NEG mg/dL) 1+ Urine Ketones (NEG mg/dL) NEGATIVE Urine Blood (NEG mg/DL) 3+ H Urine Nitrite (NEG SCREEN) NEGATIVE Urine Bilirubin (NEG mg/dL) NEGATIVE Urine Urobilinogen (<2.0 mg/dL) 0.2 Ur Leukocyte Esterase (NEGATIVE Leuk/mcL) 2+ H Urine RBC (0 - 3 #RBC/HPF) 10-20 H Urine WBC (0 - 3 #WBC/HPF) 20-30 H Ur Squamous Epith Cells (NONE /HPF) 1+ Urine Bacteria (NONE - TRACE /HPF) NONE SEEN Hyaline Casts (0 - 3 #/LPF) 10-15 H Urine Sperm (NONE SEEN /HPF) 4+ H Urine Culture Screen (Culture CHK Criteria) NO, WBC>10 EPI>25 Lab StatementLaboratory studies reviewed and considered in the medical decision-making. Point of Care TestingPulse Oximetry Pulse Ox % 98 On: Room air Interpretation Interpreted by me, Pulse oximetry normal Re-Evaluation MDM Free Text MDM NotesAdditional TextPatient voided after wallace was DCed. Okay to DC home and follow up with urology of Health insurance choice after PCP follow up. Return precautions given. Patient Discharge Departure Vital Signs/ConditionVital SignsFirst Documented: Result Date Time Pulse Ox 98 08/10 1800 B/P 120/75 08/10 1800 B/P Mean 90 08/10 1800 O2 Delivery Room air 08/10 1800 Temp 36.7 08/10 1800 Pulse 77 08/10 1800 Resp 18 08/10 1800 Last Documented: Result Date Time Pulse Ox 98 08/10 2004 B/P 118/70 08/10 2004 B/P Mean 86 08/10 2004 O2 Delivery Room air 08/10 2004 Temp 36.7 08/10 2004 Pulse 71 08/10 2004 Resp 18 08/10 2004 All vital signs available at the time of this entry have been reviewed. Condition Stable Clinical ImpressionClinical ImpressionPrimary Impression: Encounter for Wallace catheter removalSecondary Impressions: UTI (urinary tract infection) Disposition DecisionDischarge )( Discharged to Home Yes )( Time 2001 )( Date 08/10/19 Discharge/Care PlanCounseled Regarding Diagnosis, Lab results, Prescriptions, Need for follow-up, When to return to EDPrescriptionscefdinirPrescriptions Reviewed Risks, Benefits, Alternative treatment Discharge NoteI have spoken with the patient and/or caregivers. I have explained the patient'scondition, diagnoses and treatment plan based on the information available to meat this time. I have answered the patient's and/or caregiver's questions and addressed any concerns. The patient and/or caregivers have as good an understanding of the patient's diagnosis, condition and treatment plan as can beexpected at this point. The vital signs have been stable. The patient's condition is stable and appropriate for discharge from the emergency department. The patient will pursue further outpatient evaluation with the primary care physician or other designated or consulting physician as outlined in the discharge instructions. The patient and/or caregivers are agreeable to this planof care and follow-up instructions have been explained in detail. The patient and/or caregivers have received these instructions in written format and have expressed an understanding of the discharge instructions. The patient and/or caregivers are aware that any significant change in condition or worsening of symptoms should prompt an immediate return to this or the closest emergency department or a call to 911. Bernard Umanzor 08/11/19 1547:HPI- Male GeneralInitial Greet Date/Time 08/10/19 1805 Patient Discharge Departure Supervising Physician Note MidLv Saw Pt AloneI have reviewed the PA/MEDICATION ADMINISTRATION PROFESSIONAL's note and plan of care. I was available for consultation as needed at all times during the patient's visit in the emergency department. I agree with the clinical impression, plan and disposition. at 203 at 1547 RPT #: [id number] OF REPORTEDEmerdallas county medical center department [id number]:51:00L.[id number] able for patient [id number]:47:55 [facility] 2019-08-08 20:49:00 [id number]:49:00 H [facility] ([facility])EMERGENCY PROVIDER REPORTREPORT#:[id number] REPORT STATUS: SignedDATE:08/08/19 TIME:2048 PATIENT: DUSTY FRANCOIS UNIT #: [id number]#: [id number] ROOM/BED:: 62 AGE: 58 SEX: M PCP PHYS: No Primary or Family PhysicianSERVICE AUTHOR: Mark Torres MD * ALL edits or amendments must be made on the electronic/computer document * HPI- Male GeneralConfirmed Patient YesPatient Type New patientInitial Greet Date/Time 08/08/192033 PresentationChief Complaint Urination decreased, constipatedHx Obtained From PatientOnset Occurred Today, Days ago (4 days for constipation)Symptom Duration Since onsetProgression since Onset UnchangedSeverity: Onset ModerateSeverity: Current ModerateAssociated withReports: Abdominal pain, Constipation. Denies: Chills, Fever, Nausea, Vomiting. Exacerbated by NothingRelieved by Nothing ContextImmunization Status General Unknown Free Text HPI NotesFree Text HPI Notes58 y/o M with PMHx of DM, CVA (05/2019), CKD, gastroparesis, and prior MN presents to the ED with c/o urinary retention and constipation. Pt reports last time urinating this morning, but has increased pressure to lower abdomen and notes that he had similar sxs in the past. Pt has been seen at [facility] and hadwhiteclay catheter placed and was given Flomax upon discharge. No reports of any urology f/u. Pt reports last BM was 4 days ago. He denies any fever, chills, n/v, or any CP or SOB. Portions of this section were scribed by Yoel Vigil on 08/08/19 at 2200 Review of Systems ROS StatementsAll systems rev neg except as marked. Focused Review of SystemsConstitutionalDenies: Chills, Fever. GIReports: Abdominal pain, Constipation. Denies: Bloody/tarry stool, Diarrhea, Nausea, Vomiting. MaleReports: Urination decreased. Denies: Dysuria, Flank pain, Hematuria. MusculoskeletalDenies: Back pain, Extremity pain, Extremity swelling. SkinDenies: Diaphoresis, Rash, Swelling. Additional Review of SystemsEyesDenies: Discharge bilat, Redness bilat. Ears/Nose/ThroatDenies: Nasal congestion, Sinus problem. RespiratoryDenies: Cough, non-productive, Cough, productive, Dyspnea on exertion, Shortnessof breath. CardiovascularDenies: Chest pain, Dyspnea on exertion, Edema. NeurologicDenies: Dizziness, Generalized weakness, Headache, Lightheaded. Portions of this section were scribed by Yoel Vigil on 08/08/19 at 2048 Past Medical History - AdultStated Complaint CONSTIPATEDAllergiesCoded Allergies:No Known Allergies (08/08/19) Review of Nursing Notes Rev avail, and agreePt reports no significant: Past surgical historyPast Medical History:Reports: Diabetes mellitus, Kidney disease/stones (Chronic kidney disease), Prior MN. Additional Medical Historygastroparesis, CVASmoking status for patients 13 years old or older: Never Smoker Portions of this section were scribed by Yoel Vigil on 08/08/19 at 204 Physical Exam Vital SignsVital SignsFirst Documented: Result Date Time Pulse Ox 98 08/08 2032 B/P 138/91 08/08 2032 B/P Mean 106 08/08 2032 O2 Delivery Room air 08/08 2032 Temp 98.4 08/08 2032 Pulse 71 08/08 2032 Resp 17 08/08 2032 Last Documented: Result Date Time Pulse Ox 98 08/08 2032 B/P 138/91 08/08 2032 B/P Mean 106 08/08 2032 O2 Delivery Room air 08/08 2032 Temp 98.4 08/08 2032 Pulse 71 08/08 2032 Resp 17 08/08 2032 Review of Vital Signs Reviewed Focused PEGeneral/Const General/Const Awake, Alert, No acute distress, Cooperative, Not toxic appearingAbdomen/GI Abdomen/GI Soft, No guarding, No rebound, No distention Tenderness/Guarding/Rebound Tender suprapubic. Skin Skin Warm, Dry, IntactGenitourinary General Exam deferred Additional PEMS Head Head Atraumatic, NormocephalicEyes Eyes EOMI, No scleral icterusEars/Nose/Throat Ears/Nose/Throat Airway patent, Mucous membranes moistMS Neck Neck Atraumatic, Supple, No meningismus, Full range of motionResp/Chest Respiratory/Chest Atraumatic, Breath sounds NL, Breath sounds = bilat, No respiratory distressCardiovascular Cardiovascular Heart rate NL, Regular rhythm, Heart sounds NLNeurologic Neurologic Oriented X3, Speech NL Portions of this section were scribed by Yoel Vigil on 08/08/19 at 2201 Interpretation Diagnostics Lab Results InterpretationResultsLaboratory Tests: 08/08 2110 Urines Urine Color (YEL/STRAW discript) YELLOW Urine Appearance (CLEAR discript) HAZY H Urine pH (5.0 - 7.0 pH UNITS) 5.5 Ur Specific Center Line (1.005 - 1.030 SG) 1.025 Urine Protein (NEG mg/dL) 2+ H Urine Glucose (UA) (NEG mg/dL) NEGATIVE Urine Ketones (NEG mg/dL) NEGATIVE Urine Blood (NEG mg/DL) 2+ H Urine Nitrite (NEG SCREEN) NEGATIVE Urine Bilirubin (NEG mg/dL) NEGATIVE Urine Urobilinogen (<2.0 mg/dL) 0.2 Ur Leukocyte Esterase (NEGATIVE Leuk/mcL) NEGATIVE Urine RBC (0 - 3 #RBC/HPF) 20-30 H Urine WBC (0 - 3 #WBC/HPF) 0-1 Ur Squamous Epith Cells (NONE /HPF) 1+ Urine Bacteria (NONE - TRACE /HPF) 1+ H Urine Mucus (NONE SEEN /LPF) 1+ Urine Culture Screen (Culture CHK Criteria) NO, WBC<10 Lab StatementLaboratory studies reviewed and considered in the medical decision-making. Point of Care TestingPulse Oximetry Pulse Ox % 98 On: Room air Interpretation Interpreted by me, Pulse oximetry normal Time 2031 Portions of this section were scribed by Yoel Vigil on 08/08/19 at 2201 Re-Evaluation MDM Re-Evaluation/ProgressRe-Evaluation/Progress Time of Re-Eval 2149 Re-Eval Status Improved Eval Following Treatment Pt. feels better, Condition improved Pain Re-Evaluation Pain improved Plan Post Re-Eval Plan discharge Portions of this section were scribed by Yoel Vigil on 08/08/19 at 2200 Patient Discharge Departure Vital Signs/ConditionVital SignsFirst Documented: Result Date Time Pulse Ox 98 08/08 2032 B/P 138/91 08/08 2032 B/P Mean 106 08/08 2032 O2 Delivery Room air 08/08 2032 Temp 98.4 08/08 2032 Pulse 71 08/08 2032 Resp 17 08/08 2032 Last Documented: Result Date Time Pulse Ox 98 08/08 2032 B/P 138/91 08/08 2032 B/P Mean 106 08/08 2032 O2 Delivery Room air 08/08 2032 Temp 98.4 08/08 2032 Pulse 71 08/08 2032 Resp 08/08 All vital signs available at the time of this entry have been reviewed. Condition Stable Clinical ImpressionClinical ImpressionPrimary Impression: Urinary retentionSecondary Impressions: Constipation Disposition DecisionDischarge )( Discharged to Home Yes )( Time 2201 )( Date 08/08/19 Discharge/Care PlanCounseled Regarding Diagnosis, Lab results, Prescriptions, Need for follow-up, When to return to EDPrescriptionsMiralaxPrescriptions Reviewed Risks, Benefits, Alternative treatment Discharge NoteI have spoken with the patient and/or caregivers. I have explained the patient'scondition, diagnoses and treatment plan based on the information available to meat this time. I have answered the patient's and/or caregiver's questions and addressed any concerns. The patient and/or caregivers have as good an understanding of the patient's diagnosis, condition and treatment plan as can beexpected at this point. The vital signs have been stable. The patient's condition is stable and appropriate for discharge from the emergency department. The patient will pursue further outpatient evaluation with the primary care physician or other designated or consulting physician as outlined in the discharge instructions. The patient and/or caregivers are agreeable to this planof care and follow-up instructions have been explained in detail. The patient and/or caregivers have received these instructions in written format and have expressed an understanding of the discharge instructions. The patient and/or caregivers are aware that any significant change in condition or worsening of symptoms should prompt an immediate return to this or the closest emergency department or a call to 911. Supervising Physician Note Scribe StatementYoel Vigil, 08/08/192057, scribing for and in the presence of Dr. Torres.Signed By: Yoel Vigil, 08/08/192057 Provider Scribed StatementI personally performed the services described in this documentation and reviewedthe documentation that was dictated to the scribe(s) in my presence, and it accurately records my words and actions. Mark Torres, 08/09/19 Portions of this section were scribed by Yoel Vigil on 08/08/19 at 2201 at 0632 RPT #: [id number] OF REPORTEDEmergency department [id number]:49:00L.[id number] able for patient [id number]:33:03 [facility] 2019-07-16 01:05:00 [id number]:05:00 H [facility])EMERGENCY PROVIDER REPORTREPORT#:[id number] REPORT STATUS: SignedDATE:07/16/19 TIME:0105 PATIENT: DUSTY FRANCOIS UNIT #: [id number]#: [id number] ROOM/BED:: 62 AGE: 58 SEX: M PCP PHYS: Shawanda Wild DOSERVICE AUTHOR: Kurt Shay MD * ALL edits or amendments must be made on the electronic/computer document * HPI-Constipation GeneralConfirmed Patient YesPatient Type New patientInitial Greet Date/Time 07/16/19 0058 PresentationChief Complaint ConstipationHx Obtained From Patient, FamilySudden in Onset? NoOnset Occurred One week agoSymptom Duration Since onsetProgression since Onset UnchangedAssociated withReports: Vomiting, non-bilious. Denies: Abdominal pain, Diarrhea, Nausea. Exacerbated by NothingRelieved by Nothing ContextImmunization Status General Unknown Free Text HPI NotesFree Text HPI Notes58 y/o M with PMH of DM, MN, CVA, and PNA p/w constipation x 1 week. Assoc. sxs are SOB, nausea, and vomiting x today. Pt has frequent issues w/ constipation and usually takes dolcolax, but it provided no relief. Yesterday, pt's glucose was elevated at 535, then it gradually went down to 150. Pt's last normal bowel movement was last week. Of note, pt is able to pass gas. Denies fever, chills, GRAY, diarrhea, abd pain, diaphoresis, CP, and numbness/tingling. Portions of this section were scribed by Curtis Patterson on 07/16/19 at 0621 Review of Systems ROS StatementsAll systems rev neg except as marked. Focused Review of SystemsConstitutionalDenies: Chills, Fever. GIReports: Constipation, Nausea, Vomiting. Denies: Abdominal pain, Diarrhea. Additional Review of SystemsEyesDenies: Discharge bilat, Redness bilat. Ears/Nose/ThroatDenies: Nasal congestion, Sore throat. RespiratoryReports: Shortness of breath. Denies: Cough, non-productive, Cough, productive. CardiovascularDenies: Chest pain, Edema, Syncope. MaleDenies: Dysuria, Hematuria. MusculoskeletalDenies: Extremity pain, Joint pain. SkinDenies: Abrasion, Erythema, Swelling. NeurologicDenies: Abnormal movement, Headache, Syncope. Portions of this section were scribed by Curtis Patterson on 07/16/19 at 0131 Past Medical History - AdultStated Complaint VOMITING, NAUSEA, CONSTIPATION, SOBAllergiesCoded Allergies:No Known Allergies (09/21/18) Home MedicationsActive ScriptsTICAGRELOR (BRILINTA) 90 MG PO BID TICAGRELOR (BRILINTA) 90 MG PO BID #180 TAB Ref 4 Prov: 06/13/19ATORVASTATIN (LIPITOR) 80 MG PO DAILY 1700 ATORVASTATIN (LIPITOR) 80 MG PO DAILY 1700 #90 TAB Ref 4 Prov: 06/13/19METOPROLOL SUCC XL (TOPROL XL) 75 MG PO BID METOPROLOL SUCC XL (TOPROL XL) 75 MG PO BID #180 TAB Ref 4 Prov: 06/13/19ASPIRIN 81 MG PO DAILY ASPIRIN 81 MG PO DAILY #90 TAB Ref 4 Prov: 06/13/19 Discontinued ScriptsamLODIPine (NORVASC) 5 MG PO DAILY amLODIPine (NORVASC) 5 MG PO DAILY #90 TAB Ref 4 Prov: 06/18/19 DC: 07/16/19 0143 Patient stopped takingALBUTEROL/IPRATROPIUM (DUONEB 3-0.5 MG/3ML) 3 ML NEB RTQ4H ALBUTEROL/IPRATROPIUM (DUONEB 3-0.5 MG/3ML) 3 ML NEB RTQ4H #1 BOX Prov: 06/22/19 DC: 07/16/19 0143 Patient stopped takingguaiFENesin ER (MUCINEX) 600 MG PO Q12HR guaiFENesin ER (MUCINEX) 600 MG PO Q12HR #20 TAB Prov: 06/22/19 DC: 07/16/19 0143 Patient stopped takingFUROSEMIDE (LASIX) 60 MG PO BID FUROSEMIDE (LASIX) 60 MG PO BID #60 TABS Prov: 06/22/19 DC: 07/16/19 014 Patient stopped takingSacubitril/Valsartan (Entresto 24 MG-26 MG Tablet) 1 EACH PO Q12HR Sacubitril/Valsartan (Entresto 24 MG-26 MG Tablet) 1 EACH PO Q12HR #60 TAB Prov: 06/22/19 DC: 07/16/19 0143 Patient stopped takingNEBULIZER/COMPR. FOR NEB (INSPIRATION ELITE NEBULIZER) 1 EACH INH ASDIR NEBULIZER/COMPR. FOR NEB (INSPIRATION ELITE NEBULIZER) 1 EACH INH ASDIR #1EACH Prov: 06/22/19 DC: 07/16/19 0143 Patient stopped taking Reported MedicationsINSULIN DETEMIR (LEVEMIR) 10 UNITS SUBQ Q12HR ISOSORBIDE DINITRATE (ISORDIL) 10 MG PO BID CHOLECALCIFEROL (VITAMIN D3) (VITAMIN D3) 50,000 UNIT PO Q7D hydrALAZINE (APRESOLINE) 25 MG PO BID FUROSEMIDE (LASIX) 40 MG PO BID Discontinued Reported MedicationsERGOCALCIFEROL (VITAMIN D2) 50,000 UNITS PO Q7D HYDROcodone/APAP (NORCO 10/325) 1 TAB PO Q6H PRN PRN PAIN Review of Nursing Notes Rev avail, and agreePast Medical History:Reports: Diabetes mellitus, Hypertension, Transient ischemic attack, Dyslipidemia. Denies: Asthma, Coronary artery disease. Additional Medical HistoryPNAAdditional Surgical HistoryToe amputation, x2 cardiac stentsAdditional Family HistoryBrother and Father CADAlcohol Use Denies EtOH useDrug Use Denies recreational drugs Portions of this section were scribed by Curtis Patterson on 07/16/19 at 0154 Physical Exam Vital SignsVital SignsFirst Documented: Result Date Time Pulse Ox 98 07/16 0057 B/P 183/89 07/16 0057 B/P Mean 120 07/16 0057 Temp 36.6 07/16 0057 Pulse 83 07/16 0057 Resp 18 07/16 0057 Last Documented: Result Date Time Pulse Ox 98 07/16 0508 B/P 115/68 07/16 0508 B/P Mean 83 07/16 0508 Pulse 93 07/16 0508 Resp 16 07/16 0508 Temp 36.6 07/16 0057 Review of Vital Signs Reviewed Focused PEGeneral/Const General/Const Awake, Alert, No acute distressResp/Chest Respiratory/Chest Breath sounds NL, Breath sounds = bilat, No rales, No rhonchi, No wheezingCardiovascular Cardiovascular Heart rate NL, Regular rhythm, Heart sounds NL, No murmursAbdomen/GI Abdomen/GI Soft, No guarding, No rebound, No distentionMS Back Back Inspection NL, No CVA tendernessRectum Rectum/Perineum Exam deferredNeurologic Neurologic Oriented X3, Speech NL Additional PEMS Head Head Atraumatic, Normocephalic Portions of this section were scribed by Curtis Pattesron on 07/16/19 at 0621 Interpretation Diagnostics Lab Results InterpretationResultsLaboratory Tests 07/16/19117:[Embedded Image Not Available]Laboratory Tests: 07/16 118 Chemistry Sodium (134 - 147 mmol/L) 139 Potassium (3.4 - 5.0 mmol/L) 4.7 Chloride (100 - 108 mmol/L) 103 Carbon Dioxide (21 - 32 mmol/L) 24 Anion Gap (4.0 - 15.0 GAP calc) 12.0 BUN (7 - 18 MG/DL) 43 H Creatinine (0.8 - 1.3 MG/DL) 1.8 H Glomerular Filtr Rate (>60 estGFR) 51 L Glucose (70 - 110 MG/DL) 293 H Calcium (8.5 - 10.1 MG/DL) 9.4 Total Bilirubin (0.2 - 1.2 MG/DL) 0.50 Direct Bilirubin (0.00 - 0.30 MG/DL) < 0.10 Indirect Bilirubin (0.2 - 1.2 MG/DL) 0.40 AST (15 - 37 Unit/L) 29 ALT (12 - 78 Unit/L) 26 Total Alk Phosphatase (50 - 136 Unit/L) 104 Troponin I (0.000 - 0.045 NG/ML) < 0.015 Total Protein (6.4 - 8.2 G/DL) 7.6 Albumin (3.4 - 5.0 G/DL) 3.0 L Lipase (114 - 286 Unit/L) 45 L Hematology WBC (3.5 - 11.0 K/mm3) 12.4 H RBC (4.70 - 6.10 M/mm3) 4.23 L Hgb (12.3 - 15.9 G/DL) 11.3 L Hct (35.8 - 46.7 %) 34.2 L MCV (86.3 - 98.9 Fl) 80.9 L MCH (28.9 - 34.4 pg) 26.7 L MCHC (32.1 - 34.5 G/DL) 33.0 RDW (11.5 - 14.5 SD) 14.9 H Plt Count (150 - 450 K/mm3) 367.0 MPV (7.0 - 9.6 fL) 10.30 H Neut % (Auto) (40 - 76 %) 86.5 H Lymph % (Auto) (20.5 - 51.1 %) 10.7 L [place]land % (Auto) (1.7 - 9.3 %) 2.6 Eos % (Auto) (0.0 - 6.0 %) 0.1 Baso % (Auto) (0.0 - 2.0 %) 0.1 Neut # (Auto) (1.8 - 7.6 K/mm3) 10.71 H Lymph # (Auto) (0.6 - 3.0 K/mm3) 1.3 [place]land # (Auto) (0.2 - 1.5 K/mm3) 0.3 Eos # (Auto) (0.0 - 0.4 K/mm3) 0.0 Baso # (Auto) (0.0 - 0.2 K/mm3) 0.0 Add Manual Diff (CRITERIA DIFF/SCN) NO Recent Impressions:CAT SCAN - CT ABD PELVIS W/CONT 07/16 0215 Report Impression - Status: SIGNED Entered: 07/16/2019 0248 IMPRESSION: The colon is filled with retained fecal material. The rectum is distended with fecal matter. This may representconstipation. Right renal upper pole scarring. Impression By: [email or web address] - Tamir Roberson M.D. Lab StatementLaboratory studies reviewed and considered in the medical decision-making. Point of Care TestingPulse Oximetry Pulse Ox % 98 On: Room air Interpretation Interpreted by me, Pulse oximetry normal Time 0057 ECG #1 InterpretationText/Dict NoteT wave inv v3 avf v6 Narrow QRSQT less than 500No ST elevations or depressions No STEMIECG Documented in MUSE YesDate 07/16/19Time 0128Interpreted by ED physicianNL ECG Interpretation Normal rate, Normal sinus rhythm, No STEMIRate 88 Portions of this section were scribed by Curtis Patterson on 07/16/19 at 0621 Re-Evaluation MDM Free Text MDM NotesFree Text MDM NotesAll test results were discussed w/ the pt, as well as, diagnosis. Qs were encouraged and answered. Importance of f/u was emphasized and ED precautions were provided and told to return if sxs become worse. ED CourseMedication(s) OrderedMedication(s) Ordered:Cardiovascular Drugs Sig/Jean Carlos Start time Last Medication Dose Route Stop Time Status Admin Hydralazine HCl 10 MG X1ED STA 07/16 0400 DC 07/16 IV 07/16 0401 0403 Diagnostic Agents Sig/Jean Carlos Start time Last Medication Dose Route Stop Time Status Admin Iopamidol 0 .STK-MED ONE 07/16 0156 DC 07/16 IV 0221 Electrolytic, Caloric, And Alex Sig/Jean Carlos Start time Last Medication Dose Route Stop Time Status Admin Lactulose 40 GM X1ED STA 07/16 0508 DC 07/16 PO 07/16 0509 0517 Sodium Chloride 1,000 ML X1ED STA 07/16 0320 DC 07/16 IV 07/16 0419 0324 Lactulose 40 GM X1ED STA 07/16 0251 DC 07/16 PO 07/16 0252 0324 Sodium Chloride 50 ML .STK-MED ONE 07/16 0156 DC 07/16 IV 0220 Sodium Chloride 1,000 ML X1ED STA 07/16 0100 DC 07/16 IV 07/16 0200 0114 Gastrointestinal Drugs Sig/Jean Carlos Start time Last Medication Dose Route Stop Time Status Admin Magnesium Citrate 300 ML X1ED STA 07/16 0513 CAN PO 07/16 0514 Ondansetron HCl 4 MG X1ED STA 07/16 0320 DC 07/16 IV 07/16 0321 0324 Ondansetron HCl 4 MG X1ED PRN PRN 07/16 0100 DC 07/16 IV 07/17 0059 0113 Portions of this section were scribed by Curtis Patterson on 07/16/19 at 0616 Patient Discharge Departure Vital Signs/ConditionVital SignsFirst Documented: Result Date Time Pulse Ox 98 07/16 0057 B/P 183/89 07/16 0057 B/P Mean 120 / 0057 Temp 36.6 / 0057 Pulse 83 / 0057 Resp 18 07/16 0057 Last Documented: Result Date Time Pulse Ox 98 / 0508 B/P 115/68 09/ 0508 B/P Mean 83 / 0508 Pulse 93 / 0508 Resp 16 07/16 0508 Temp 36.6 07/16 0057 All vital signs available at the time of this entry have been reviewed. Condition Stable Clinical ImpressionClinical ImpressionPrimary Impression: DehydrationSecondary Impressions: Constipation Disposition DecisionDischarge )( Discharged to Home Yes )( Time 0613 )( Date 07/16/19 Discharge/Care PlanCounseled Regarding Diagnosis, Lab results, Prescriptions, Need for follow-up, When to return to EDPrescriptionsMiralax, colace, lactulose, zofranPrescriptions Reviewed Risks, Benefits, Alternative treatment Discharge NoteI have spoken with the patient and/or caregivers. I have explained the patient'scondition, diagnoses and treatment plan based on the information available to meat this time. I have answered the patient's and/or caregiver's questions and addressed any concerns. The patient and/or caregivers have as good an understanding of the patient's diagnosis, condition and treatment plan as can beexpected at this point. The vital signs have been stable. The patient's condition is stable and appropriate for discharge from the emergency department. The patient will pursue further outpatient evaluation with the primary care physician or other designated or consulting physician as outlined in the discharge instructions. The patient and/or caregivers are agreeable to this planof care and follow-up instructions have been explained in detail. The patient and/or caregivers have received these instructions in written format and have expressed an understanding of the discharge instructions. The patient and/or caregivers are aware that any significant change in condition or worsening of symptoms should prompt an immediate return to this or the closest emergency department or a call to 911. Supervising Physician Note Scribe StatementCurtis Patterson, 07/16/19 010, scribing for and in the presence of [Dr. Shay].Signed By: Curtis Patterson, 07/16/19 0105 Portions of this section were scribed by Curtis Patterson on 07/16/19 at 0621 at 0140 RPT #: [id number] OF REPORTCedar [facility] department [id number]:05:00L.[id number] able for patient [id number]:40:55 [facility] 2019-07-12 08:37:00 [id number]:37:[address] [address] PATIENT NAME: DUSTY FRANCOIS ADMIT DATE: 06/04/19ACCOUNT NO: [id number] ROOM NO: [facility] AGE: 58 REPORT TYPE: DISCHARGE SUMMARY SEX: M ADMITTING PHYSICIAN:Kyung Bedoya MD ATTENDING PHYSICIAN:Kyung Bedoya MD ADMISSION DATE: 06/04/2019DISCHARGE DATE: 06/14/2019 DISCHARGE DIAGNOSES:1. Non-ST elevation MN.2. Hypertension.3. Subacute cerebrovascular accident.4. Acute kidney injury .6. Diabetes mellitus7.Hospital acquired pneumonia BRIEF HOSPITAL COURSE: This is a 58-year-old, ex-smoker admitted for weakness with EKG showed changes. Troponin was 12. had LHC and PCI The patient was hospitalized. The patient continued to be weak and lethargic.Imaging showed subacute CVA, started on aspirin and statin and IV antibiotic, Clinically imprved improved. Patient was discharged home in a stable condition. DISCHARGE CONDITION: Stable. ACTIVITIES: As tolerated. DIET: Cardiac diet. FOLLOWUP: Follow up with PCP. [facility]. Dictated By: Kyung Bedoya MD WT: DS:LELIA/JAVAD/NTSDD: 07/12/2019 08:37:41DT: 07/13/2019 02:23:53Conf#: [id number]/DID#: [id number] Authenticated and Edited by Kyung Bedoya MD On 07/13/19 2:08:30 PM at 1541 PATIENT NAME: DUSTY FRANCOIS [id number]:23:00G.[id number] able for patient [id number]:41:41 [facility] 2019-06-22 11:42:00 [id number]:42:00 [facility] Progress NoteREPORT#:[id number] REPORT STATUS: SignedDATE:06/22/19 TIME:1142 PATIENT: DUSTY FRANCOIS UNIT #: [id number]#: [id number] [address] AGE: 58 SEX: M ATTEND: Jamie Edwards MDADM AUTHOR: Junior Pablo MD * ALL edits or amendments must be made on the electronic/computer document * Subjective Free Text Subj NotesFree Text Subj Notes:DOing better Objective GeneralVS/I O:24 hour I O ending at 0700: 06/22 0700 06/21 1900 Intake Total 973.00 1610 Output Total 1380 1250 Balance -407.00 360 Intake, IV 28.00 40 Intake, Oral 945 1220 Intake, 350 Packed Cells Number 1 Bowel Movements Number Voids 3 Output, Urine 1380 1250 Vital Signs: Date Time Temp Pulse Resp B/P B/P Pulse O2 O2 Flow FiO2 Mean Ox Delivery Rate 06/22 1129 99.0 74 20 129/76 94.0 93 Room air 06/22 0809 99.0 73 20 128/78 95.0 96 Room air 06/22 0803 99 Room air 21 06/22 0411 98.1 74 18 117/68 84.2 94 Nasal 2.542159 cannula 06/21 2340 98.6 76 19 147/83 104.3 96 Room air 06/21 2150 Nasal 2.798980 cannula 06/21 1951 98.2 75 16 148/86 106.4 98 Nasal 2.580865 cannula 06/21 1944 98 Nasal 2.595287 28 cannula 06/21 1510 98.4 82 16 157/85 95 / 1450 98.6 79 16 142/83 98 / 1449 98.6 79 16 142/84 103.1 97 Room air 06/21 1350 98.6 78 16 142/83 98 08/ 1345 98.6 78 16 142/83 102.8 98 / 1320 98.6 80 16 142/83 98 / 1253 98.2 81 16 145/81 102.5 96 08/ 1250 98.2 81 16 145/81 96 / 1245 98.1 81 16 150/84 106.1 96 Room air 06/21 1235 98.1 81 16 150/84 96 Patient Weight Weight (lb): Weight (oz): Weight (kg): 84.091 Medications:Active Meds + DC'd Last 24 HrsErgocalciferol 50,000 UNIT Q7D@0900 PO Sacubitril/Valsartan 1 EACH Q12HR PO Sodium Chloride 10 ML ASDIR IV Sodium Chloride 500 ML ONCE ONE IV (DC) Vancomycin HCl 750 MG Q12HR IV (DC) Sodium Chloride 250 MLCefepime HCl 1 GM Q6H IV (CKD) Sterile Water 10 MLAtorvastatin Calcium 80 MG DAILY 1700 PO Dextrose/Water 50 ML ASDIR PRN IV Glucagon 1 MG ASDIR PRN IM Guaifenesin 600 MG Q12HR PO Insulin Glargine 10 UNIT Q12HR SUBQ Metoprolol Succinate 75 MG BID PO Ticagrelor 90 MG BID PO Albuterol/Ipratropium 3 ML RTQ4H NEB (CKD) Amlodipine Besylate 5 MG DAILY PO Aspirin 81 MG DAILY PO Furosemide 40 MG Q8HR IV (CKD) Hydrocodone Bitart/Acetaminophen 1 TAB Q6H PRN PRN PO Acetaminophen 650 MG Q4H PRN PRN PO Docusate Sodium 100 MG Q12H PRN PRN PO Morphine Sulfate 2 MG Q3H PRN PRN IV Morphine Sulfate 4 MG Q3H PRN PRN IV Ondansetron HCl 4 MG Q4H PRN PRN IV Physical ExamGeneral appearance: alert, awake, no acute distressENT: normal noseCardiovascular: CV assessment: regular rate and rhythm, normal heart soundsRespiratory: clear to auscultation, no distressLower extremity: LE assessment: no cyanosis, no edemaNeuro/VACUUM FILTER OPERATOR: alert, oriented X 3, normal speechSkin: dry, intact ResultsFindings/Data:Laboratory Tests 06/22 06/22 06/21 06/21 0811 0330 1949 1659Chemistry Sodium (134 - 147 mmol/L) 143 Potassium (3.4 - 5.0 mmol/L) 4.2 Chloride (100 - 108 mmol/L) 105 Carbon Dioxide (21 - 32 mmol/L) 31 Anion Gap (4.0 - 15.0 GAP calc) 7.0 BUN (7 - 18 MG/DL) 25 H Creatinine (0.8 - 1.3 MG/DL) 1.5 H Glomerular Filtr Rate (>60 estGFR) >=60 max estimate Glucose (70 - 110 MG/DL) 137 H POC Glucose (70 - 110 mg/dL) 171 H 132 H 121 H Calcium (8.5 - 10.1 MG/DL) 8.4 L 06/21 1223 Chemistry POC Glucose (70 - 110 mg/dL) 164 H Laboratory Tests 06/22 0330 Hematology WBC (3.5 - 11.0 K/mm3) 8.4 RBC (4.70 - 6.10 M/mm3) 2.97 L Hgb (12.3 - 15.9 G/DL) 8.1 L Hct (35.8 - 46.7 %) 25.6 L MCV (86.3 - 98.9 Fl) 86.2 L MCH (28.9 - 34.4 pg) 27.3 L MCHC (32.1 - 34.5 G/DL) 31.6 L RDW (11.5 - 14.5 SD) 14.1 Plt Count (150 - 450 K/mm3) 436.0 MPV (7.0 - 9.6 fL) 8.60 Neut % (Auto) (40 - 76 %) 68.3 Lymph % (Auto) (20.5 - 51.1 %) 19.8 L [place] % (Auto) (1.7 - 9.3 %) 8.0 Eos % (Auto) (0.0 - 6.0 %) 3.8 Baso % (Auto) (0.0 - 2.0 %) 0.1 Neut # (Auto) (1.8 - 7.6 K/mm3) 5.75 Lymph # (Auto) (0.6 - 3.0 K/mm3) 1.7 [place] # (Auto) (0.2 - 1.5 K/mm3) 0.7 Eos # (Auto) (0.0 - 0.4 K/mm3) 0.3 Baso # (Auto) (0.0 - 0.2 K/mm3) 0.0 Add Manual Diff (CRITERIA DIFF/SCN) NO Diagnosis, Assessment Plan Free Text DxA P NotesFree Text DxA P Notes:CHF: acute on chronic, systolic and diastolic, ischemic, improved with diuresis, wants to go home, ok with d/c. close follow up with his printing table hand. CAD: recent PCI to LAD and LCx, need staged PCI to RCA, will follow with his primary printing table hand to do it as out pt. HTN: contiue current meds. HLD: contiue statins Anemia: HgB 8.1, received blood transfusion at 0543 RPT #: [id number] OF REPORT PRProgress [id number]:42:00L.[id number] le for patient egmfBENYECDFPWCYGD9722-67-25S20:43:27 [facility] 2019-06-22 09:16:00 [id number]:16:00 [facility] Dis[facility] SummaryREPORT#:[id number] REPORT STATUS: SignedDATE:06/22/19 TIME:915 PATIENT: DUSTY FRANCOIS UNIT #: [id number]#: [id number] [address] [birth year] AGE: 58 SEX: M ATTEND: Jamie Edwards AUTHOR: Jamie Edwards MD * ALL edits or amendments must be made on the electronic/computer document * PCP PCPDischarge to: home General InformationProblem List/A P: 1. Pulmonary edema Discharge date: 06/22/19Hospital course:Acute on chronic congestive heart failure combined systolic/diastolic diastolicAcute on chronic hypoxic respiratory failureBilateral pleural effusionAnemia of chronic diseaseAcute kidney injuryElevated troponinElevated d-dimerHypertensionHyperlipidemiaDiabetes mellitusPADCAD status post MN and PCI HPI58 y/o AAM with past medical history of DM, CAD status post MN, CVA, and historyof PNA admitted with shortness of breath which has been progressively worsening,associated with cough and was unable to catch breathing . He was admitted at [facility] 3 weeks ago, pt was admitted s/p syncopal episode for MN, CVA, and PNA.Patient was admitted and was monitored closely under telemetry , started on aggressive diuresisAnd was started on antibiotics, Trended cardiac enzymes, cardiology consultedAs well as Pulmonology consult. Continued home medications and titrated He was found to have anemia and was transfused with PRBCsPatient wanted to go home and is being discharged home today in a stable condition with and advised to follow-up with PCP in 1 week and also with cardiology and pulmonology in 1 to 2 weeks.Discussed with the patient about the need to be on medications regularly. Med Rec Med RecDischarge meds:Stop taking the following medications:FUROSEMIDE (LASIX) 40 MG TAB ORAL TWICE DAILY. Qty = 60 Continue taking these medications:ERGOCALCIFEROL (VITAMIN D2) 50,000 UNITS CAP 50,000 UNITS ORAL EVERY 7 DAYS. HYDROcodone/APAP (NORCO 10/325) 1 TAB TAB 1 TABLET ORAL EVERY 6 HOURS NEEDED. as needed for PAIN INSULIN DETEMIR (LEVEMIR) 100 UNITS/ML VIAL 10 UNITS SUBCUTANEOUS EVERY 12 HOURS. TICAGRELOR (BRILINTA) 90 MG TAB 90 MILLIGRAM ORAL TWICE DAILY. Qty = 180 ATORVASTATIN (LIPITOR) 40 MG TAB 80 MILLIGRAM ORAL DAILY AT 1700. Qty = 90 METOPROLOL SUCC XL (TOPROL XL) 25 MG TAB.SR.24H 75 MILLIGRAM ORAL TWICE DAILY. Qty = 180 ASPIRIN (ASPIRIN) 81 MG TAB.CHEW 81 MILLIGRAM ORAL DAILY. Qty = 90 amLODIPine (NORVASC) 10 MG TAB 5 MILLIGRAM ORAL DAILY. Qty = 90 Start taking the following new medications:ALBUTEROL/IPRATROPIUM (DUONEB 3-0.5 MG/3ML) 3 ML NEB 3 MILLILITERS NEB RT - EVERY 4 HOURS. Qty = 1 No Refills guaiFENesin ER (MUCINEX) 600 MG TAB.SA 600 MILLIGRAM ORAL EVERY 12 HOURS. Qty = 20 No Refills Sacubitril/Valsartan (Entresto 24 MG-26 MG Tablet) 1 TAB TAB 1 EACH ORAL EVERY 12 HOURS. Qty = 60 No Refills FUROSEMIDE (LASIX) 40 MG TAB 60 MILLIGRAM ORAL TWICE DAILY. Qty = 60 No Refills Discharge InstructionsDiet: cardiacActivity: as toleratedDischarge management: greater than 30 mins Follow-up AppointmentsPCP: PCP: Shawanda Wild DO Follow up timeframe: In 1-2 weeksAttending Physician: Attending Physician: Jamie Edwards MD Pbcbdznqhs provider 1: Provider 1: Junior Pablo MD Specialty: CARDIOVASC DIS Follow up timeframe: In 1-2 weeksConsulting provider 2: Provider 2: Gelacio Perdue MD Specialty: PULMONARY DIS Follow up timeframe: In 1-2 weeks Objective GeneralVS/I O:Vital Signs: Date Time Temp Pulse Resp B/P B/P Pulse O2 O2 Flow FiO2 Mean Ox Delivery Rate 06/22 1129 99.0 74 20 129/76 94.0 93 Room air 06/22 0809 99.0 73 20 128/78 95.0 96 Room air 06/22 0803 99 Room air 21 06/22 0411 98.1 74 18 117/68 84.2 94 Nasal 2.589931 cannula 06/21 2340 98.6 76 19 147/83 104.3 96 Room air 06/21 2150 Nasal 2.777383 cannula 06/21 1951 98.2 75 16 148/86 106.4 98 Nasal 2.132179 cannula 06/21 1944 98 Nasal 2.663398 28 cannula 24 hour I O ending at 0700: 08 0700 06/21 1900 Intake Total 973.00 1610 Output Total 1380 1250 Balance -407.00 360 Intake, IV 28.00 40 Intake, Oral 945 1220 Intake, 350 Packed Cells Number 1 Bowel Movements Number Voids 3 Output, Urine 1380 1250 Physical ExamGeneral appearance: alert, awakeHead/Eyes: atraumatic, normocephalicENT: dry mucosal membraneNeck: supple/no meningismusCardiovascular: normal heart sounds, regular rate rhythmRespiratory: decreased breath sounds, rales, rhonchiAbdomen: softGenitourinary: no bladder distentionRectal: deferredExtremities: moves allMusculoskeletal: normal inspectionNeuro/VACUUM FILTER OPERATOR: alert, oriented X 3Skin: dry, no rashLymphatics: no lymphadenopathyPsychiatry: anxious at 1827 RPT #: [id number] OF REPORT DSDischarge rzaspsy9902-09-06S05:16:00L.[id number] lable for patient ssdxCBBLJRILOTUDQT3403-76-75H79:28:17 [facility] 2019-06-21 23:25:00 [id number]:25:00 [facility] CenterP[facility] Progress NoteREPORT#:[id number] REPORT STATUS: SignedDATE:06/21/19 TIME:2324 PATIENT: DUSTY FRANCOIS UNIT #: [id number]#: [id number] [address] [birth year] AGE: 58 SEX: M ATTEND: Jamie Edwards MDADM AUTHOR: Hunter Shell MD * ALL edits or amendments must be made on the electronic/computer document * SubjectiveComments:Feels a little betterLess dyspneaRec'd prbc'sMild dry coughNo cp, palp, gray, n, v, dizzinessAfeb VS ok Objective Physical ExamVS/I O:Laboratory Tests: 06/21 06/21 06/21 06/21 06/21 1949 1659 1223 0829 0323 Chemistry POC Glucose (70 - 110 mg/dL) 132 H 121 H 164 H 132 H Troponin I (0.000 - 0.045 NG/ML) 0.399 *H 06/21 0323 Chemistry Sodium (134 - 147 mmol/L) 142 Potassium (3.4 - 5.0 mmol/L) 4.3 Chloride (100 - 108 mmol/L) 107 Carbon Dioxide (21 - 32 mmol/L) 30 Anion Gap (4.0 - 15.0 GAP calc) 5.0 BUN (7 - 18 MG/DL) 28 H Creatinine (0.8 - 1.3 MG/DL) 1.6 H Glomerular Filtr Rate (>60 estGFR) 58 L Glucose (70 - 110 MG/DL) 181 H Calcium (8.5 - 10.1 MG/DL) 8.2 L Hematology WBC (3.5 - 11.0 K/mm3) 8.9 RBC (4.70 - 6.10 M/mm3) 2.53 L Hgb (12.3 - 15.9 G/DL) 6.8 L Hct (35.8 - 46.7 %) 21.4 L MCV (86.3 - 98.9 Fl) 84.6 L MCH (28.9 - 34.4 pg) 26.9 L MCHC (32.1 - 34.5 G/DL) 31.8 L RDW (11.5 - 14.5 SD) 14.0 Plt Count (150 - 450 K/mm3) 415.0 MPV (7.0 - 9.6 fL) 8.70 Neut % (Auto) (40 - 76 %) 67.2 Lymph % (Auto) (20.5 - 51.1 %) 19.1 L [place] % (Auto) (1.7 - 9.3 %) 9.5 H Eos % (Auto) (0.0 - 6.0 %) 4.1 Baso % (Auto) (0.0 - 2.0 %) 0.1 Neut # (Auto) (1.8 - 7.6 K/mm3) 5.99 Lymph # (Auto) (0.6 - 3.0 K/mm3) 1.7 [place] # (Auto) (0.2 - 1.5 K/mm3) 0.9 Eos # (Auto) (0.0 - 0.4 K/mm3) 0.4 Baso # (Auto) (0.0 - 0.2 K/mm3) 0.0 Add Manual Diff (CRITERIA DIFF/SCN) NO Microbiology: Date/Time Procedure - Status Source Growth 06/21 1100 Occult Blood - COMP STOOL Recent Impressions:RADIOLOGY - XR CHEST 1 V 06/21 1125 Report Impression - Status: SIGNED Entered: 06/21/2019 1155 IMPRESSION: Mild pulmonary edema with a small layering left effusionand atelectasis.Impression By: AlenaRKAki Edwards M.D. Current Medications Sig/Jean Carlos Start time Last Medication Dose Route Stop Time Status Admin Ergocalciferol 50,000 UNIT Q7D@0900 06/25 0900 AC PO 07/25 0859 Sacubitril/Valsartan 1 EACH Q12HR 06/21 1000 AC 06/21 PO 07/21 0959 2101 Sodium Chloride 10 ML ASDIR 06/21 0500 AC IV 07/21 0459 Sodium Chloride 500 ML ONCE ONE 06/21 0500 AC 06/21 IV 06/22 0559 1556 Vancomycin HCl 750 MG Q12HR 06/20 2100 DC 06/21 Sodium Chloride 250 ML IV 06/27 2059 0842 Cefepime HCl 1 GM Q6H 06/20 2000 CKD 06/21 Sterile Water 10 ML IV 06/26 1959 2100 Atorvastatin Calcium 80 MG DAILY 1700 06/20 1700 AC 06/21 PO 07/20 165 1756 Dextrose/Water 50 ML ASDIR PRN 06/20 1330 AC IV 07/20 1329 Glucagon 1 MG ASDIR PRN 06/20 1330 AC IM 08/19 1329 Guaifenesin 600 MG Q12HR 06/19 2100 AC 06/21 PO 08/18 205 210 Insulin Glargine 10 UNIT Q12HR 06/19 2100 AC 06/21 SUBQ 08/18 205 2100 Metoprolol Succinate 75 MG BID 06/19 2100 AC 06/21 PO 07/19 205 1755 Ticagrelor 90 MG BID 06/19 2100 AC 06/21 PO 07/03 2059 1756 Albuterol/Ipratropium 3 ML RTQ4H 06/19 2000 CKD 06/21 NEB 07/03 195 204 Amlodipine Besylate 5 MG DAILY 06/19 1800 AC 06/21 PO 07/19 175 08 Aspirin 81 MG DAILY 06/19 1800 AC 06/21 PO 07/19 175 0830 Furosemide 40 MG Q8HR 06/19 1745 CKD 06/21 IV 07/19 1744 2101 Hydrocodone Bitart/ 1 TAB Q6H PRN PRN 06/19 1745 AC Acetaminophen PO 06/29 1744 Acetaminophen 650 MG Q4H PRN PRN 06/19 07 AC PO 07/19 0659 Docusate Sodium 100 MG Q12H PRN PRN 06/19 07 AC PO 07/19 0659 Morphine Sulfate 2 MG Q3H PRN PRN 06/19 07 AC IV 06/29 0659 Morphine Sulfate 4 MG Q3H PRN PRN 06/19 700 AC IV 06/29 659 Ondansetron HCl 4 MG Q4H PRN PRN 06/19 700 AC IV 07/19 659 Last Documented: Result Date Time O2 Delivery Nasal cannula 06/21 2150 O2 Flow Rate 2.537683 06/21 2150 Pulse Ox 98 06/21 1951 B/P 148/86 06/21 1951 B/P Mean 106.4 06/21 1951 Temp 98.2 06/21 1951 Pulse 75 06/21 1951 Resp 16 06/21 1951 FiO2 28 06/21 1944 24 hour I O ending at 0700: 06/21 1900 Intake Total 1224.00 770.00 Output Total 1020 1434 Balance 204.00 -664.00 Intake, IV 278.00 260.00 Intake, Oral 946 510 Output, Urine 1020 1434 Patient Weight Weight (lb): Weight (oz): Weight (kg): 84.091 General appearance: alert, no acute distress, pleasant, conversationalHead/eyes: atraumatic, normocephalic, normal conjunctiva/scleraENT: ENT: moist mucosal membranes, normal pharynxNeck: JVD present, non-tender, supple/no meningismusCardiovascular: regular rate rhythmRespiratory/chest: rales, symmetric expansion, no distressAbdomen: soft, non-tenderExtremities: edema, moves all, no clubbing, no cyanosisMusculoskeletal: normal inspection, no muscle spasmNeuro/VACUUM FILTER OPERATOR: alert, oriented X 3, no motor deficitsSkin: warm, dryLymphatics: neck normal, no lymphadenopathy Diagnosis, Assessment PlanHospital course to date:IMPRESSION:1. Worsening shortness of breath. I suspect this is more of heart failure,fluid overload, edema with underlying cardiomyopathy and coronary arterydisease, without evidence for acute coronary syndrome currently.2. [facility] hospital stays [facility]. Some of thenotes were reviewed.3. Coronary artery disease, post-stent.4. Anemia that appears to be chronic, details are not clear, may need furtherworkup at some point.5. Chronic kidney disease, stable.6. Low albumin, protein-calorie malnutrition.7. Significant debility from what I can gather. RECOMMENDATIONS:1. Supplemental oxygen.2. Bed rest.3. Mobilize as tolerated.4. Cardiovascular evaluation.5. Diuresis as tolerated.6. Optimize cardiovascular medications and management.7. Home medicines.8. PRN medicines.9. Follow up x-rays and lab work.10. His pleural effusions are of tdfzl-tj-klqbzjvg size. I do think it isworthwhile doing thoracentesis at this point based on the size, I doubt thiswill help relieve his dyspnea at this point. We can follow his x-rays brandon-evaluate. 8.6.19Clinical picture c/w volume overloadOptimize CV/Fluid statusFollow labs, cxr 8.7.10Resp status improvingCXR betterCont CV care, diuresis at 0034 RPT #: [id number] OF REPORT PRProgress Eisx2045-05-32V28:25:00L.[id number] le for patient zhvvUOPGZNWDJISPTK7213-54-64Y28:34:45 [facility] 2019-06-21 12:02:00 [id number]:02:00 [facility] CenterHospital[facility] Progress NoteREPORT#:[id number] REPORT STATUS: SignedDATE:06/21/19 TIME:1202 PATIENT: DUSTY FRANCOIS UNIT #: [id number]#: [id number] [address] [birth year] AGE: 58 SEX: M ATTEND: Jamie Edwards AUTHOR: Jamie Edwards MD * ALL edits or amendments must be made on the electronic/computer document * SubjectiveChief Complaint:Feeling betterNo acute changesDenies any chest painSOB better Review of SystemsAdditional notes:All the 14 point review systems negative except as mentioned HPI Objective GeneralVS/I O:Vital Signs: Date Time Temp Pulse Resp B/P B/P Pulse O2 O2 Flow FiO2 Mean Ox Delivery Rate 06/21 1350 98.6 78 16 142/83 98 06/21 1345 98.6 78 16 142/83 102.8 98 08/07 1320 98.6 80 16 142/83 98 08/07 1253 98.2 81 16 145/81 102.5 96 08/07 1250 98.2 81 16 145/81 96 08/07 1245 98.1 81 16 150/84 106.1 96 Room air 08/07 1235 98.1 81 16 150/84 96 08/07 1106 99.0 83 20 147/84 104.9 98 Nasal 2.319579 cannula 08/ 0808 99.0 79 20 142/88 106.2 99 Nasal 2.520317 cannula 08/ 0740 28 Nasal 2.917255 28 cannula / 0416 98.1 78 15 129/78 94.9 97 08/06 2310 98.4 83 15 154/81 105.6 92 08/06 2049 94 Nasal 2.030403 cannula 06/20 1957 Nasal 2.708433 cannula / 1951 98.2 82 15 134/81 98.5 97 08/06 1527 98.8 79 16 130/80 96.6 93 Nasal cannula 24 hour I O ending at 0700: 06/21 0700 06/20 1900 Intake Total 1224.00 770.00 Output Total 1020 1434 Balance 204.00 -664.00 Intake, IV 278.00 260.00 Intake, Oral 946 510 Output, Urine 1020 1434 Patient Weight Weight (lb): Weight (oz): Weight (kg): 84.091 Medications:Active Meds + DC'd Last 24 HrsErgocalciferol 50,000 UNIT Q7D@0900 PO Sacubitril/Valsartan 1 EACH Q12HR PO Sodium Chloride 10 ML ASDIR IV Sodium Chloride 500 ML ONCE ONE IV Vancomycin HCl 750 MG Q12HR IV Sodium Chloride 250 MLCefepime HCl 1 GM Q6H IV (CKD) Sterile Water 10 MLAtorvastatin Calcium 80 MG DAILY 1700 PO Dextrose/Water 50 ML ASDIR PRN IV Glucagon 1 MG ASDIR PRN IM Cefepime HCl 1 GM Q8HR IV (DC) Sterile Water 10 MLGuaifenesin 600 MG Q12HR PO Insulin Glargine 10 UNIT Q12HR SUBQ Metoprolol Succinate 75 MG BID PO Ticagrelor 90 MG BID PO Albuterol/Ipratropium 3 ML RTQ4H NEB (CKD) Vancomycin HCl 1,000 MG Q12H IV (DC) Sodium Chloride 250 MLAmlodipine Besylate 5 MG DAILY PO Aspirin 81 MG DAILY PO Furosemide 40 MG Q8HR IV (CKD) Hydrocodone Bitart/Acetaminophen 1 TAB Q6H PRN PRN PO Acetaminophen 650 MG Q4H PRN PRN PO Docusate Sodium 100 MG Q12H PRN PRN PO Morphine Sulfate 2 MG Q3H PRN PRN IV Morphine Sulfate 4 MG Q3H PRN PRN IV Ondansetron HCl 4 MG Q4H PRN PRN IV Physical ExamGeneral appearance: alert, awakeHead/Eyes: atraumatic, normocephalicENT: dry mucosal membraneNeck: supple/no meningismusCardiovascular: normal heart sounds, regular rate rhythmRespiratory: decreased breath sounds, rales, rhonchiAbdomen: softGenitourinary: no bladder distentionRectal: deferredExtremities: moves allMusculoskeletal: normal inspectionNeuro/VACUUM FILTER OPERATOR: alert, oriented X 3Skin: dry, no rashLymphatics: no lymphadenopathyPsychiatry: anxious ResultsFindings/Data:Laboratory Tests 06/21 06/21 06/21 06/21 06/20 1223 0829 322 322 2015 Chemistry Sodium (134 - 147 mmol/L) 142 Potassium (3.4 - 5.0 mmol/L) 4.3 Chloride (100 - 108 mmol/L) 107 Carbon Dioxide (21 - 32 mmol/L) 30 Anion Gap (4.0 - 15.0 GAP calc) 5.0 BUN (7 - 18 MG/DL) 28 H Creatinine (0.8 - 1.3 MG/DL) 1.6 H Glomerular Filtr Rate (>60 estGFR) 58 L Glucose (70 - 110 MG/DL) 181 H POC Glucose (70 - 110 mg/dL) 164 H 132 H 175 H Calcium (8.5 - 10.1 MG/DL) 8.2 L Troponin I (0.000 - 0.045 NG/ML) 0.399 *H 06/20 1527 Chemistry POC Glucose (70 - 110 mg/dL) 246 H Laboratory Tests 06/21 0323 Hematology WBC (3.5 - 11.0 K/mm3) 8.9 RBC (4.70 - 6.10 M/mm3) 2.53 L Hgb (12.3 - 15.9 G/DL) 6.8 L Hct (35.8 - 46.7 %) 21.4 L MCV (86.3 - 98.9 Fl) 84.6 L MCH (28.9 - 34.4 pg) 26.9 L MCHC (32.1 - 34.5 G/DL) 31.8 L RDW (11.5 - 14.5 SD) 14.0 Plt Count (150 - 450 K/mm3) 415.0 MPV (7.0 - 9.6 fL) 8.70 Neut % (Auto) (40 - 76 %) 67.2 Lymph % (Auto) (20.5 - 51.1 %) 19.1 L [place] % (Auto) (1.7 - 9.3 %) 9.5 H Eos % (Auto) (0.0 - 6.0 %) 4.1 Baso % (Auto) (0.0 - 2.0 %) 0.1 Neut # (Auto) (1.8 - 7.6 K/mm3) 5.99 Lymph # (Auto) (0.6 - 3.0 K/mm3) 1.7 [place] # (Auto) (0.2 - 1.5 K/mm3) 0.9 Eos # (Auto) (0.0 - 0.4 K/mm3) 0.4 Baso # (Auto) (0.0 - 0.2 K/mm3) 0.0 Add Manual Diff (CRITERIA DIFF/SCN) NO Microbiology Date/Time Procedure - Status Source Growth 06/21 1100 Occult Blood - COMP STOOL Radiology data:Recent Impressions:RADIOLOGY - XR CHEST 1 V 06/21 1125 Report Impression - Status: SIGNED Entered: 06/21/2019 1155 IMPRESSION: Mild pulmonary edema with a small layering left effusionand atelectasis.Impression By: AlenaRKAki Edwards M.D. Diagnosis, Assessment PlanProblem List/A P: 1. Pulmonary edema Free Text DxA P NotesFree Text DxA P Notes:Shortness of breathBilateral pleural effusionPossible pneumoniaAnemia of chronic diseaseAcute kidney injuryElevated troponinElevated d-dimerHypertensionAcute on chronic hypoxic respiratory failureAcute on chronic congestive heart failure possibly diastolicHypertensionHyperlipidemiaDiabetes mellitusPADCAD status post MN and PCI PlanMonitor closely under telemetryAggressive diuresisAntibioticsTrend cardiac enzymesCardiology consultPulmonology consultContinue home medications and titrate as neededInsulin sliding scaleAntihypertensives titratedWe will continue oxygen supplementationGI/DVT prophylaxis 06/20/2019Continue aggressive diuresisHemoglobin 7.7Renal parameters monitoredAppreciate help from pulmonaryCardiology consultedContinue home medications and titrate as neededWe will get a repeat x-ray in a.m. 06/21/2019No acute event Shortness of breath improvingAnemia notedWe will transfuse 1 unit PRBCMonitor closely under telemetryAppreciate help from consultants at 1441 RPT #: [id number] OF REPORT PRProgress Jrgk3464-01-31C89:02:00L.[id number] le for patient wwcpUTUNHZLSLQHGLX8859-38-99V50:41:14 [facility] 2019-06-21 09:44:00 [id number]:44:00 [facility]Card[facility] Progress NoteREPORT#:[id number] REPORT STATUS: SignedDATE:06/21/19 TIME:09 PATIENT: DUSTY FRANCOIS UNIT #: [id number]#: [id number] [address] [birth year] AGE: 58 SEX: M ATTEND: Jamie Edwards MDADM AUTHOR: Junior Pablo MD * ALL edits or amendments must be made on the electronic/computer document * Subjective Free Text Subj NotesFree Text Subj Notes:DOing ok Objective GeneralVS/I O:24 hour I O ending at 0700: 07 0700 08/06 1900 Intake Total 1224.00 770.00 Output Total 1020 1434 Balance 204.00 -664.00 Intake, IV 278.00 260.00 Intake, Oral 946 510 Output, Urine 1020 1434 Vital Signs: Date Time Temp Pulse Resp B/P B/P Pulse O2 O2 Flow FiO2 Mean Ox Delivery Rate 06/21 0808 99.0 79 20 142/88 106.2 99 Nasal 2.351425 cannula 06/21 0416 98.1 78 15 129/78 94.9 97 / 2310 98.4 83 15 154/81 105.6 92 08/ 2049 94 Nasal 2.723921 cannula 06/20 1957 Nasal 2.598740 cannula 06/20 1951 98.2 82 15 134/81 98.5 97 / 1527 98.8 79 16 130/80 96.6 93 Nasal cannula 06/20 1103 99.0 80 16 123/77 92.2 100 Nasal cannula Patient Weight Weight (lb): Weight (oz): Weight (kg): 84.091 Medications:Active Meds + DC'd Last 24 HrsErgocalciferol 50,000 UNIT Q7D@0900 PO Sodium Chloride 10 ML ASDIR IV Sodium Chloride 500 ML ONCE ONE IV Vancomycin HCl 750 MG Q12HR IV Sodium Chloride 250 MLCefepime HCl 1 GM Q6H IV (CKD) Sterile Water 10 MLAtorvastatin Calcium 80 MG DAILY 1700 PO Dextrose/Water 50 ML ASDIR PRN IV Glucagon 1 MG ASDIR PRN IM Cefepime HCl 1 GM Q8HR IV (DC) Sterile Water 10 MLGuaifenesin 600 MG Q12HR PO Insulin Glargine 10 UNIT Q12HR SUBQ Metoprolol Succinate 75 MG BID PO Ticagrelor 90 MG BID PO Albuterol/Ipratropium 3 ML RTQ4H NEB (CKD) Vancomycin HCl 1,000 MG Q12H IV (DC) Sodium Chloride 250 MLAmlodipine Besylate 5 MG DAILY PO Aspirin 81 MG DAILY PO Furosemide 40 MG Q8HR IV (CKD) Hydrocodone Bitart/Acetaminophen 1 TAB Q6H PRN PRN PO Acetaminophen 650 MG Q4H PRN PRN PO Docusate Sodium 100 MG Q12H PRN PRN PO Morphine Sulfate 2 MG Q3H PRN PRN IV Morphine Sulfate 4 MG Q3H PRN PRN IV Ondansetron HCl 4 MG Q4H PRN PRN IV Physical ExamGeneral appearance: alert, awake, oriented, no acute distressENT: normal noseCardiovascular: CV assessment: regular rate and rhythm, normal heart soundsRespiratory: clear to auscultation, no distressLower extremity: LE assessment: no cyanosis, no edemaNeuro/VACUUM FILTER OPERATOR: alert, oriented X 3, normal speechSkin: dry, intact ResultsFindings/Data:Laboratory Tests 06/21 06/21 06/21 06/20 06/20 0829 0323 322 2015 152 Chemistry Sodium (134 - 147 mmol/L) 142 Potassium (3.4 - 5.0 mmol/L) 4.3 Chloride (100 - 108 mmol/L) 107 Carbon Dioxide (21 - 32 mmol/L) 30 Anion Gap (4.0 - 15.0 GAP calc) 5.0 BUN (7 - 18 MG/DL) 28 H Creatinine (0.8 - 1.3 MG/DL) 1.6 H Glomerular Filtr Rate (>60 estGFR) 58 L Glucose (70 - 110 MG/DL) 181 H POC Glucose (70 - 110 mg/dL) 132 H 175 H 246 H Calcium (8.5 - 10.1 MG/DL) 8.2 L Troponin I (0.000 - 0.045 NG/ML) 0.399 *H 06/20 06/20 06/20 1345 1345 1105 Chemistry Sodium (134 - 147 mmol/L) 139 Potassium (3.4 - 5.0 mmol/L) 4.4 Chloride (100 - 108 mmol/L) 106 Carbon Dioxide (21 - 32 mmol/L) 26 Anion Gap (4.0 - 15.0 GAP calc) 7.0 BUN (7 - 18 MG/DL) 27 H Creatinine (0.8 - 1.3 MG/DL) 1.6 H Glomerular Filtr Rate (>60 estGFR) 58 L Glucose (70 - 110 MG/DL) 247 H POC Glucose (70 - 110 mg/dL) 267 H Calcium (8.5 - 10.1 MG/DL) 8.3 L Phosphorus (2.5 - 4.9 MG/DL) 3.9 Magnesium (1.8 - 2.4 MG/DL) 1.8 Total Bilirubin (0.2 - 1.2 MG/DL) 0.20 AST (15 - 37 Unit/L) 40 H ALT (12 - 78 Unit/L) 42 Total Alk Phosphatase (50 - 136 Unit/L) 71 Total Protein (6.4 - 8.2 G/DL) 6.2 L Albumin (3.4 - 5.0 G/DL) 1.8 L Globulin (GM/dL) 4.4 Albumin/Globulin Ratio (1.2 - 2.2 RATIO) 0.4 L Procalcitonin (0.00 - 0.05 ng/mL) < 0.05 Laboratory Tests 06/21 06/20 0323 1345 Hematology WBC (3.5 - 11.0 K/mm3) 8.9 8.2 RBC (4.70 - 6.10 M/mm3) 2.53 L 2.86 L Hgb (12.3 - 15.9 G/DL) 6.8 L 7.7 L Hct (35.8 - 46.7 %) 21.4 L 24.7 L MCV (86.3 - 98.9 Fl) 84.6 L 86.4 MCH (28.9 - 34.4 pg) 26.9 L 26.9 L MCHC (32.1 - 34.5 G/DL) 31.8 L 31.2 L RDW (11.5 - 14.5 SD) 14.0 14.0 Plt Count (150 - 450 K/mm3) 415.0 377.0 MPV (7.0 - 9.6 fL) 8.70 9.10 Neut % (Auto) (40 - 76 %) 67.2 70.1 Lymph % (Auto) (20.5 - 51.1 %) 19.1 L 17.3 L [place] % (Auto) (1.7 - 9.3 %) 9.5 H 7.8 Eos % (Auto) (0.0 - 6.0 %) 4.1 4.4 Baso % (Auto) (0.0 - 2.0 %) 0.1 0.4 Neut # (Auto) (1.8 - 7.6 K/mm3) 5.99 5.77 Lymph # (Auto) (0.6 - 3.0 K/mm3) 1.7 1.4 [place] # (Auto) (0.2 - 1.5 K/mm3) 0.9 0.6 Eos # (Auto) (0.0 - 0.4 K/mm3) 0.4 0.4 Baso # (Auto) (0.0 - 0.2 K/mm3) 0.0 0.0 Add Manual Diff (CRITERIA DIFF/SCN) NO NO Laboratory Tests 06/21 06/20 0323 1345 Chemistry Magnesium (1.8 - 2.4 MG/DL) 1.8 Troponin I (0.000 - 0.045 NG/ML) 0.399 *H Diagnosis, Assessment Plan Free Text DxA P NotesFree Text DxA P Notes:CHF: acute on chronic, systolic and diastolic, ischemic, continue IV lasix and strict I O, contiue BB CAD: recent PCI to LAD and LCx, need staged PCI to RCA, given recurrent CHF admission, we may do it while in hospital. HTN: contiue current meds. HLD: contiue statins Anemia: HgB 6.7, will give two units of blood. at 0540 RPT #: [id number] OF REPORT PRProgress [id number] le for patient cxarVVYNLESHGVVFBU5119-24-23N03:41:17 [facility] 2019-06-20 23:51:00 [id number]:51:00 H [facility] ([facility]ITALCardiology Progress NoteREPORT#:[id number] REPORT STATUS: SignedDATE:06/20/19 TIME:2351 PATIENT: DUSTY FRANCOIS UNIT #: [id number]#: [id number] [address] [birth year] AGE: 58 SEX: M ATTEND: Jamie Edwards MDADM AUTHOR: Junior Pablo MD * ALL edits or amendments must be made on the electronic/computer document * Subjective Free Text Subj NotesFree Text Subj Notes:DOing ok, off O2, has good urine out put but was not saving it, instructed to doso and asked the nurse to track urine out put Objective GeneralVS/I O:24 hour I O ending at 0700: 0806 0700 08/05 1900 Intake Total 250.00 Output Total Balance 250.00 Intake, IV 250.00 Number Voids 4 Vital Signs: Date Time Temp Pulse Resp B/P B/P Pulse O2 O2 Flow FiO2 Mean Ox Delivery Rate 06/20 2310 98.4 83 15 154/81 105.6 92 06/20 2049 94 Nasal 2.571286 cannula 06/20 1957 Nasal 2.673728 cannula 06/20 1951 98.2 82 15 134/81 98.5 97 / 1527 98.8 79 16 130/80 96.6 93 Nasal cannula 06/20 1103 99.0 80 16 123/77 92.2 100 Nasal cannula 06/20 0800 Nasal 2.909279 cannula 06/20 0708 98.1 79 17 141/88 105.6 97 Nasal cannula 06/20 0705 96 Nasal 2.791761 28 cannula 06/20 0309 98.2 77 17 129/76 93.7 97 / 0024 98 Nasal 2.452748 cannula Patient Weight Weight (lb): Weight (oz): Weight (kg): 84.091 Medications:Active Meds + DC'd Last 24 HrsErgocalciferol 50,000 UNIT Q7D@0900 PO Vancomycin HCl 750 MG Q12HR IV Sodium Chloride 250 MLCefepime HCl 1 GM Q6H IV (CKD) Sterile Water 10 MLAtorvastatin Calcium 80 MG DAILY 1700 PO Dextrose/Water 50 ML ASDIR PRN IV Glucagon 1 MG ASDIR PRN IM Cefepime HCl 1 GM Q8HR IV (DC) Sterile Water 10 MLGuaifenesin 600 MG Q12HR PO Insulin Glargine 10 UNIT Q12HR SUBQ Metoprolol Succinate 75 MG BID PO Ticagrelor 90 MG BID PO Albuterol/Ipratropium 3 ML RTQ4H NEB (CKD) Vancomycin HCl 1,000 MG Q12H IV (DC) Sodium Chloride 250 MLAmlodipine Besylate 5 MG DAILY PO Aspirin 81 MG DAILY PO Furosemide 40 MG Q8HR IV (CKD) Hydrocodone Bitart/Acetaminophen 1 TAB Q6H PRN PRN PO Insulin Human Lispro 0 AC HS SUBQ (DC) Acetaminophen 650 MG Q4H PRN PRN PO Docusate Sodium 100 MG Q12H PRN PRN PO Morphine Sulfate 2 MG Q3H PRN PRN IV Morphine Sulfate 4 MG Q3H PRN PRN IV Ondansetron HCl 4 MG Q4H PRN PRN IV Physical ExamGeneral appearance: alert, awake, oriented, no acute distressENT: normal noseCardiovascular: CV assessment: regular rate and rhythm, normal heart soundsRespiratory: clear to auscultation, no distressLower extremity: LE assessment: no cyanosis, no edemaNeuro/VACUUM FILTER OPERATOR: alert, oriented X 3, normal speechSkin: dry, intact ResultsResults: labs reviewed, vital signs stable Diagnosis, Assessment Plan Free Text DxA P NotesFree Text DxA P Notes:CHF: acute on chronic, systolic and diastolic, ischemic, continue IV lasix and strict I O, contiue BB CAD: recent PCI to LAD and LCx, need staged PCI to RCA, given recurrent CHF admission, we may do it while in hospital. HTN: contiue current meds. HLD: contiue statins at 0944 RPT #: [id number] OF REPORT PRProgress [id number]:51:00L.[id number] le for patient rvfaGONKSNTVWKXFLG0007-61-74P32:44:42 [facility] 2019-06-20 23:50:00 [id number]:50:00 H [facility] ([facility]ITALCardiology ConsultationREPORT#:[id number] REPORT STATUS: SignedDATE:06/20/19 TIME:2350 PATIENT: DUSTY FRANCOIS UNIT #: [id number]#: [id number] [address] [birth year] AGE: 58 SEX: M ATTEND: Jamie Edwards AUTHOR: Junior Pablo MD * ALL edits or amendments must be made on the electronic/computer document * History of Present Illness HPIRequesting Clinician: Dr. Camacho for consult:CHF, CAD, elevated torponinChief complaint:SOBHPI:This is a 58 YO male with PMHx of ICMP, s/p PCO to LCx and LAD who is here with SOB. He was admitted to [facility] x 2, and was just released, he got home for few hours then felt SOB so he came in here. No CP, Palpitations, dizziness or LOC History - Adult longitudinalPast medical history:Reports: Diabetes mellitus, Hypertension, Transient ischemic attack, Dyslipidemia. Denies: Asthma, Coronary artery disease. Additional medical history:PNAAdditional surgical history:Toe amputation, x2 cardiac stentsAdditional family history:Brother and Father CADAlcohol use: Denies EtOH useDrug use: Denies recreational drugsSmoking status for patients 13 years old or older: Never SmokerMedications:Home Medications:Medication Dose/Rte/Freq Days Qty Entered Last Max Daily Dose Reviewed INSULIN DETEMIR 10 UNITS SUBQ 09/18/18 06/19/19 (LEVEMIR) Q12HR 1951 0413Strength: 100 UNITS/MLVIAL ISOSORBIDE DINITRATE 10 MG PO BID 07/16/19 (ISORDIL) 0146Strength: 10 MG TAB CHOLECALCIFEROL 50,000 UNIT PO Q7D 07/16/19 (VITAMIN D3) 0149 (VITAMIN D3)Strength: 50,000 UNIT CAP hydrALAZINE (APRESOLINE) 25 MG PO BID 07/16/19Strength: 25 MG TAB 0149 FUROSEMIDE (LASIX) 40 MG PO BID 07/16/19Strength: 40 MG TAB 0151 TICAGRELOR (BRILINTA) 90 MG PO BID 180 06/13/19 06/19/19Strength: 90 MG TAB 1259 0415 ATORVASTATIN (LIPITOR) 80 MG PO DAILY 1700 90 06/13/19 06/19/19Strength: 40 MG TAB 1259 0413 METOPROLOL SUCC XL 75 MG PO BID 180 06/13/19 06/19/19 (TOPROL XL) 1259 0414Strength: 25 MGTAB.SR.24H ASPIRIN 81 MG PO DAILY 90 06/13/19 06/19/19Strength: 81 MG TAB.CHEW 1300 0413 Allergies:Coded Allergies:No Known Allergies (09/21/18) Review of SystemsAdditional notes:As per HPI otherwise negative 12 system points Objective Physical ExamGeneral appearance: alert, awake, orientedHead/Eyes: PERRLAENT: normal noseNeck: JVD presentCardiovascular: CV assessment: regular rate and rhythm, normal heart soundsRespiratory: clear to auscultation, no distressAbdomen: softLower extremity: LE assessment: edemaNeuro/VACUUM FILTER OPERATOR: alert, oriented X 3, normal speechSkin: dry, intactPsychiatry: normal affect, normal judgment/insight, normal mood ResultsResults: labs reviewed, vital signs stable Diagnosis, Assessment Plan Free Text DxA P NotesFree Text DxA P Notes:CHF: acute on chronic, systolic and diastolic, ischemic, IV lasix and strict I O, contiue BB, and enteresto. CAD: recent PCI to LAD and LCx, need staged PCI to RCA, given recurrent CHF admission, we may do it while in hospital. HTN: contiue current meds. HLD: contiue statins at 0547 RPT #: [id number] OF REPORT [id number]:50:00L.[id number] 3AVAvailable for patient ohonRAMWMIHDROGAGH1550-48-28P78:47:48 [facility] 2019-06-20 18:53:00 [id number]:53:00 H [facility] ([facility])Pulmonology Progress NoteREPORT#:[id number] REPORT STATUS: SignedDATE:06/20/19 TIME:1852 PATIENT: DUSTY FRANCOIS UNIT #: [id number]#: [id number] [address] [birth year] AGE: 58 SEX: M ATTEND: Jamie Edwards [facility] AUTHOR: Hunter Shell MD * ALL edits or amendments must be made on the electronic/computer document * SubjectiveComments:Pt seen in room with familyFeels betterHas dry cough and dyspneaDenies cp, palp, gray, n, v, dizzinessAfeb VS ok Objective Physical ExamVS/I O:Laboratory Tests: 06/20 06/20 06/20 06/20 06/19 1527 1345 1105 0718 2000 Chemistry Sodium (134 - 147 mmol/L) 139 Potassium (3.4 - 5.0 mmol/L) 4.4 Chloride (100 - 108 mmol/L) 106 Carbon Dioxide (21 - 32 mmol/L) 26 Anion Gap (4.0 - 15.0 GAP calc) 7.0 BUN (7 - 18 MG/DL) 27 H Creatinine (0.8 - 1.3 MG/DL) 1.6 H Glomerular Filtr Rate (>60 estGFR) 58 L Glucose (70 - 110 MG/DL) 247 H POC Glucose (70 - 110 mg/dL) 246 H 267 H 156 H 99 Calcium (8.5 - 10.1 MG/DL) 8.3 L Phosphorus (2.5 - 4.9 MG/DL) 3.9 Magnesium (1.8 - 2.4 MG/DL) 1.8 Total Bilirubin (0.2 - 1.2 MG/DL) 0.20 AST (15 - 37 Unit/L) 40 H ALT (12 - 78 Unit/L) 42 Total Alk Phosphatase (50 - 136 Unit/L) 71 Total Protein (6.4 - 8.2 G/DL) 6.2 L Albumin (3.4 - 5.0 G/DL) 1.8 L Globulin (GM/dL) 4.4 Albumin/Globulin Ratio (1.2 - 2.2 RATIO) 0.4 L Hematology WBC (3.5 - 11.0 K/mm3) 8.2 RBC (4.70 - 6.10 M/mm3) 2.86 L Hgb (12.3 - 15.9 G/DL) 7.7 L Hct (35.8 - 46.7 %) 24.7 L MCV (86.3 - 98.9 Fl) 86.4 MCH (28.9 - 34.4 pg) 26.9 L MCHC (32.1 - 34.5 G/DL) 31.2 L RDW (11.5 - 14.5 SD) 14.0 Plt Count (150 - 450 K/mm3) 377.0 MPV (7.0 - 9.6 fL) 9.10 Neut % (Auto) (40 - 76 %) 70.1 Lymph % (Auto) (20.5 - 51.1 %) 17.3 L Highland % (Auto) (1.7 - 9.3 %) 7.8 Eos % (Auto) (0.0 - 6.0 %) 4.4 Baso % (Auto) (0.0 - 2.0 %) 0.4 Neut # (Auto) (1.8 - 7.6 K/mm3) 5.77 Lymph # (Auto) (0.6 - 3.0 K/mm3) 1.4 Highland # (Auto) (0.2 - 1.5 K/mm3) 0.6 Eos # (Auto) (0.0 - 0.4 K/mm3) 0.4 Baso # (Auto) (0.0 - 0.2 K/mm3) 0.0 Add Manual Diff (CRITERIA DIFF/SCN) NO Recent Impressions:RADIOLOGY - XR CHEST 1 V 06/20 0639 Report Impression - Status: SIGNED Entered: 06/20/2019726 IMPRESSION:1. Bilateral pulmonary opacities possibly due to edema haveprogressed.Impression By: [email or web address] - Zion Quiros MD Current Medications Sig/Jean Carlos Start time Last Medication Dose Route Stop Time Status Admin Ergocalciferol 50,000 UNIT Q7D@0900 06/25 0900 AC PO 07/25 0859 Vancomycin HCl 750 MG Q12HR 06/20 2100 AC Sodium Chloride 250 ML IV 06/27 2059 Cefepime HCl 1 GM Q6H 06/20 2000 CKD Sterile Water 10 ML IV 06/26 1959 Atorvastatin Calcium 80 MG DAILY 1700 08/ 1700 AC 06/20 PO 07/20 165 1723 Dextrose/Water 50 ML ASDIR PRN 08 1330 AC IV 07/20 1329 Glucagon 1 MG ASDIR PRN 06/20 1330 AC IM 08/19 1329 Cefepime HCl 1 GM Q8HR 06/19 2200 DC 06/20 Sterile Water 10 ML IV 06/26 2159 1349 Guaifenesin 600 MG Q12HR 08/ 2100 AC 06/20 PO 08/18 2059 1011 Insulin Glargine 10 UNIT Q12HR 08/ 2100 AC 06/20 SUBQ 08/18 2059 1011 Metoprolol Succinate 75 MG BID 082099 AC 06/20 PO 07/19 2059 1722 Ticagrelor 90 MG BID 08/2099 AC 06/20 PO 07/03 2059 1723 Albuterol/Ipratropium 3 ML RTQ4H 06/19 2000 CKD 06/20 NEB 07/03 1959 1524 Vancomycin HCl 1,000 MG Q12H 06/19 2000 DC 06/20 Sodium Chloride 250 ML IV 07/03 1959 1027 Amlodipine Besylate 5 MG DAILY 06/19 1800 AC 06/20 PO 07/19 175 1013 Aspirin 81 MG DAILY 06/19 1800 AC 06/20 PO 07/19 175 1012 Furosemide 40 MG Q8HR 06/19 174 CKD 06/20 IV 07/19 1744 1348 Hydrocodone Bitart/ 1 TAB Q6H PRN PRN 06/19 1745 AC Acetaminophen PO 06/29 174 Insulin Human Lispro 0 AC HS 06/19 0730 DC 06/19 SUBQ 06/20 0559 1701 Acetaminophen 650 MG Q4H PRN PRN 06/19 0700 AC PO 07/19 0659 Docusate Sodium 100 MG Q12H PRN PRN 06/19 0700 AC PO 07/19 0659 Morphine Sulfate 2 MG Q3H PRN PRN 06/19 0700 AC IV 06/29 0659 Morphine Sulfate 4 MG Q3H PRN PRN 06/19 0700 AC IV 06/29 0659 Ondansetron HCl 4 MG Q4H PRN PRN 06/19 0700 AC IV 07/19 0659 Last Documented: Result Date Time Pulse Ox 93 06/20 1527 B/P 130/80 06/20 1527 B/P Mean 96.6 06/20 1527 O2 Delivery Nasal cannula 06/20 1527 Temp 98.8 06/20 1527 Pulse 79 06/20 1527 Resp 16 06/20 1527 O2 Flow Rate 2.126284 06/20 08 FiO2 28 06/20 0705 24 hour I O ending at 0700: 06/20 0700 06/19 1900 Intake Total 250.00 Output Total Balance 250.00 Intake, IV 250.00 Number Voids 4 Patient Weight Weight (lb): Weight (oz): Weight (kg): 84.091 General appearance: alert, no acute distress, pleasant, conversationalHead/eyes: atraumatic, normocephalic, normal conjunctiva/scleraENT: ENT: moist mucosal membranes, normal pharynxNeck: JVD present, non-tender, supple/no meningismusCardiovascular: regular rate rhythmRespiratory/chest: rales, symmetric expansion, no distressAbdomen: soft, non-tenderExtremities: edema, moves all, no clubbing, no cyanosisMusculoskeletal: normal inspection, no muscle spasmNeuro/VACUUM FILTER OPERATOR: alert, oriented X 3, no motor deficitsSkin: warm, dryLymphatics: neck normal, no lymphadenopathy Diagnosis, Assessment PlanHospital course to date:IMPRESSION:1. Worsening shortness of breath. I suspect this is more of heart failure,fluid overload, edema with underlying cardiomyopathy and coronary arterydisease, without evidence for acute coronary syndrome currently.2. Recent hospital stays at [facility]. Some of thenotes were reviewed.3. Coronary artery disease, post-stent.4. Anemia that appears to be chronic, details are not clear, may need furtherworkup at some point.5. Chronic kidney disease, stable.6. Low albumin, protein-calorie malnutrition.7. Significant debility from what I can gather. RECOMMENDATIONS:1. Supplemental oxygen.2. Bed rest.3. Mobilize as tolerated.4. Cardiovascular evaluation.5. Diuresis as tolerated.6. Optimize cardiovascular medications and management.7. Home medicines.8. PRN medicines.9. Follow up x-rays and lab work.10. His pleural effusions are of doinw-ng-uyvjxexd size. I do think it isworthwhile doing thoracentesis at this point based on the size, I doubt thiswill help relieve his dyspnea at this point. We can follow his x-rays brandon-evaluate. 8.6.19Clinical picture c/w volume overloadOptimize CV/Fluid statusFollow labs, cxr at [facility] #: [id number] OF REPORT PRProgress [id number]:53:00L.[id number] anabelle for patient fezcKJGLHWHJENYBPP8570-24-08K63:39:02 [facility] 2019-06-20 18:27:00 [id number]:27:0009 -0046 [facility] [id number] [place] [address] PATIENT NAME: DUSTY FRANCOIS ADMIT DATE: 06/19/19ACCOUNT NO: [id number] ROOM NO: [facility] AGE: 58 REPORT TYPE: eELECTROCARDIOGRAM SEX: M ADMITTING PHYSICIAN: Jamie Edwards MD ATTENDING PHYSICIAN: Jamie Edwards MD Order:[id number] Reason : CHEST PAIN Test Date/Time Stamp:WedJun 20 2019 18:27:54Blood Pressure : / mmHGVent. Rate : 081 BPM Atrial Rate : 081 BPM P-R Int : 140 ms QRS Dur : 090 ms QT Int : 400 ms P-R-T Axes : 061 043 -38 degrees QTc Int : 464 ms Normal sinus rhythmSeptal infarct (cited on or before 15-JUN-2019)T wave abnormality, consider inferior ischemiaAbnormal ECGWhen compared with ECG of 19-JUN-2019 04:07, (Unconfirmed)Serial changes of Septal infarct presentConfirmed by MD BEV, JUNIOR ([id number]) on 08/05/2019 7:04:33 PM Referred By: Jamie Edwards Confirmed by:JUNIOR PABLO MD at 1904 PATIENT NAME: DUSTY FRANCOIS .[id number] Available for patient jcdpFAVGIPANHTIJTG1646-35-38V66:04:50 [facility] 2019-06-20 13:42:00 [id number]:42:00 [facility] Progress NoteREPORT#:[id number] REPORT STATUS: SignedDATE:06/20/19 TIME:1342 PATIENT: DUSTY FRANCOIS UNIT #: [id number]#: [id number] ROOM/BED: [facility]-1DOB: [birth year] AGE: 58 SEX: M ATTEND: Jamie Edwards AUTHOR: Jamie Edwards MD * ALL edits or amendments must be made on the electronic/computer document * SubjectiveChief Complaint:Feeling betterNo acute changesDenies any chest pain Review of SystemsAdditional notes:All the 14 point review systems negative except as mentioned HPI Objective GeneralVS/I O:Vital Signs: Date Time Temp Pulse Resp B/P B/P Pulse O2 O2 Flow FiO2 Mean Ox Delivery Rate 06/20 1527 98.8 79 16 130/80 96.6 93 Nasal cannula 06/20 1103 99.0 80 16 123/77 92.2 100 Nasal cannula 06/20 0800 Nasal 2.394177 cannula 06/20 0708 98.1 79 17 141/88 105.6 97 Nasal cannula 06/20 0705 96 Nasal 2.942617 28 cannula 06/20 0309 98.2 77 17 129/76 93.7 97 06/20 0024 98 Nasal 2.442149 cannula 06/19 2331 99.0 80 18 134/74 94.0 92 / 2141 98 Room air 06/19 1958 Nasal 2.981872 cannula 06/19 1925 98.4 76 18 130/75 93.8 98 24 hour I O ending at 0700: 06/20 0700 06/19 1900 Intake Total 250.00 Output Total Balance 250.00 Intake, IV 250.00 Number Voids 4 Patient Weight Weight (lb): Weight (oz): Weight (kg): 84.091 Medications:Active Meds + DC'd Last 24 HrsErgocalciferol 50,000 UNIT Q7D@0900 PO Atorvastatin Calcium 80 MG DAILY 1700 PO Dextrose/Water 50 ML ASDIR PRN IV Glucagon 1 MG ASDIR PRN IM Cefepime HCl 1 GM Q8HR IV (CKD) Sterile Water 10 MLGuaifenesin 600 MG Q12HR PO Insulin Glargine 10 UNIT Q12HR SUBQ Metoprolol Succinate 75 MG BID PO Ticagrelor 90 MG BID PO Albuterol/Ipratropium 3 ML RTQ4H NEB (CKD) Vancomycin HCl 1,000 MG Q12H IV Sodium Chloride 250 MLAmlodipine Besylate 5 MG DAILY PO Aspirin 81 MG DAILY PO Vancomycin HCl 1,000 MG Q12H IV (DC) Sodium Chloride 250 MLFurosemide 40 MG Q8HR IV (CKD) Hydrocodone Bitart/Acetaminophen 1 TAB Q6H PRN PRN PO Insulin Human Lispro 0 AC HS SUBQ (DC) Acetaminophen 650 MG Q4H PRN PRN PO Docusate Sodium 100 MG Q12H PRN PRN PO Hydrocodone Bitart/Acetaminophen 1 TAB Q4H PRN PRN PO (DC) Hydrocodone Bitart/Acetaminophen 1 TAB Q4H PRN PRN PO (DC) Morphine Sulfate 2 MG Q3H PRN PRN IV Morphine Sulfate 4 MG Q3H PRN PRN IV Ondansetron HCl 4 MG Q4H PRN PRN IV Physical ExamGeneral appearance: alert, awakeHead/Eyes: atraumatic, normocephalicENT: dry mucosal membraneNeck: supple/no meningismusCardiovascular: normal heart sounds, regular rate rhythmRespiratory: decreased breath sounds, rales, rhonchiAbdomen: softGenitourinary: no bladder distentionRectal: deferredExtremities: moves allMusculoskeletal: normal inspectionNeuro/VACUUM FILTER OPERATOR: alert, oriented X 3Skin: dry, no rashLymphatics: no lymphadenopathyPsychiatry: anxious ResultsFindings/Data:Laboratory Tests 06/20 06/20 06/20 06/20 06/19 1527 1345 1105 0718 2001Chemistry Sodium (134 - 147 mmol/L) 139 Potassium (3.4 - 5.0 mmol/L) 4.4 Chloride (100 - 108 mmol/L) 106 Carbon Dioxide (21 - 32 mmol/L) 26 Anion Gap (4.0 - 15.0 GAP calc) 7.0 BUN (7 - 18 MG/DL) 27 H Creatinine (0.8 - 1.3 MG/DL) 1.6 H Glomerular Filtr Rate (>60 estGFR) 58 L Glucose (70 - 110 MG/DL) 247 H POC Glucose (70 - 110 mg/dL) 246 H 267 H 156 H 99 Calcium (8.5 - 10.1 MG/DL) 8.3 L Phosphorus (2.5 - 4.9 MG/DL) 3.9 Magnesium (1.8 - 2.4 MG/DL) 1.8 Total Bilirubin (0.2 - 1.2 MG/DL) 0.20 AST (15 - 37 Unit/L) 40 H ALT (12 - 78 Unit/L) 42 Total Alk Phosphatase (50 - 136 Unit/L) 71 Total Protein (6.4 - 8.2 G/DL) 6.2 L Albumin (3.4 - 5.0 G/DL) 1.8 L Globulin (GM/dL) 4.4 Albumin/Globulin Ratio (1.2 - 2.2 0.4 LRATIO) Laboratory Tests 06/20 1345 Hematology WBC (3.5 - 11.0 K/mm3) 8.2 RBC (4.70 - 6.10 M/mm3) 2.86 L Hgb (12.3 - 15.9 G/DL) 7.7 L Hct (35.8 - 46.7 %) 24.7 L MCV (86.3 - 98.9 Fl) 86.4 MCH (28.9 - 34.4 pg) 26.9 L MCHC (32.1 - 34.5 G/DL) 31.2 L RDW (11.5 - 14.5 SD) 14.0 Plt Count (150 - 450 K/mm3) 377.0 MPV (7.0 - 9.6 fL) 9.10 Neut % (Auto) (40 - 76 %) 70.1 Lymph % (Auto) (20.5 - 51.1 %) 17.3 L [place]land % (Auto) (1.7 - 9.3 %) 7.8 Eos % (Auto) (0.0 - 6.0 %) 4.4 Baso % (Auto) (0.0 - 2.0 %) 0.4 Neut # (Auto) (1.8 - 7.6 K/mm3) 5.77 Lymph # (Auto) (0.6 - 3.0 K/mm3) 1.4 Highland # (Auto) (0.2 - 1.5 K/mm3) 0.6 Eos # (Auto) (0.0 - 0.4 K/mm3) 0.4 Baso # (Auto) (0.0 - 0.2 K/mm3) 0.0 Add Manual Diff (CRITERIA DIFF/SCN) NO Radiology data:Recent Impressions:RADIOLOGY - XR CHEST 1 V 06/20 639 Report Impression - Status: SIGNED Entered: 06/20/2019 0727 IMPRESSION:1. Bilateral pulmonary opacities possibly due to edema haveprogressed.Impression By: [email or web address] - Zion Quiros MD Diagnosis, Assessment PlanProblem List/A P: 1. Pulmonary edema Free Text DxA P NotesFree Text DxA P Notes:Shortness of breathBilateral pleural effusionPossible pneumoniaAnemia of chronic diseaseAcute kidney injuryElevated troponinElevated d-dimerHypertensionAcute on chronic hypoxic respiratory failureAcute on chronic congestive heart failure possibly diastolicHypertensionHyperlipidemiaDiabetes mellitusPADCAD status post MN and PCI PlanMonitor closely under telemetryAggressive diuresisAntibioticsTrend cardiac enzymesCardiology consultPulmonology consultContinue home medications and titrate as neededInsulin sliding scaleAntihypertensives titratedWe will continue oxygen supplementationGI/DVT prophylaxis 06/20/2019Continue aggressive diuresisHemoglobin 7.7Renal parameters monitoredAppreciate help from pulmonaryCardiology consultedContinue home medications and titrate as neededWe will get a repeat x-ray in a.m. at 1635 RPT #: [id number] OF REPORT PRProgress [id number]:42:00L.[id number] le for patient kkydUJQTHIBAHBIAQZ2455-71-75Q24:35:38 [facility] 2019-06-20 00:15:00 [id number]:15:0008 [facility] [address] [place] [address] PATIENT NAME: DUSTY FRANCOIS ADMIT DATE: 06/19/19ACCOUNT NO: [id number] ROOM NO: [facility] AGE: 58 REPORT TYPE: CONSULTATION SEX: M ADMITTING PHYSICIAN: Jamie Edwards MD ATTENDING PHYSICIAN: Jamie Edwards MD CONSULTATION DATE: 06/19/2019 CONSULTING PHYSICIAN: Hunter Shell MD PULMONARY CONSULTATION NOTE CHIEF COMPLAINT, REASON FOR CONSULTATION: Shortness of breath. HISTORY OF PRESENT ILLNESS: Information obtained from brief discussion with thepatient as well as review of chart, and computer records. This is a pleasant 58-year-old gentleman, who was admitted to the hospital withcough, congestion, shortness of breath, generalized weakness. He is noted tohave 2 recent admissions to [facility] with syncope, MN,coronary artery disease, cardiac catheterization, and low O2 saturations. Hewas apparently discharged home 1 or 2 days prior [facility], congestiveheart failure, low O2 saturations, pleural effusion for which he hadthoracentesis. He is currently resting in bed, breathing comfortably, with minimal cough,congestion, and dyspnea, but in no distress. He reports no definite fevers orchills. Generalized weakness and shortness of breath are the main complaintsthat he in came for. PAST MEDICAL HISTORY:1. Two recent hospital stays at [facility].2. Diabetes.3. Hypertension.4. Prior TIA.5. Dyslipidemia.6. Recent pneumonia.7. Peripheral vascular disease.8. History of toe amputations.9. Cardiac stents, non-STEMI.10. Diabetes.11. Hypertension. MEDICATIONS: The list of home medications is reviewed. Current medication listis noted. ALLERGIES: NO KNOWN DRUG ALLERGIES. PATIENT NAME: DUSTY FRANCOIS SOCIAL HISTORY: , retired. No tobacco use is noted. No alcohol use isnoted. REVIEW OF SYSTEMS: Limited, but sleepy and tired at this point. However, hedenies headache, nausea, vomiting, aspiration, dysphagia, pleuritic chest pain,abdominal pain, cramping. No definite fevers or chills are reported. FAMILY HISTORY: Noncontributory. PHYSICAL EXAMINATION:GENERAL: A well-developed and nourished middle-aged gentleman, appears to be inno distress.VITAL SIGNS: Blood pressure 130/75, heart rate 76, respirations 18, gojjjfooxzo69.8, T-max 100.1, pulse ox 98%. Height 5 feet 11 inches. Weight 204 pounds.HEENT: Head is normocephalic. Eyes unremarkable without acute findings. Pupils are symmetrically reactive. No icterus. Face grossly symmetric. Oralexam, mucosa dry. No acute findings.NECK: Supple. Neck veins mildly distended. Good range of motion. Notenderness.CHEST: Symmetric air entry and breath sounds. Bilateral coarse rales and finerales noted at both bases. Scattered rhonchi. No significant wheeze. Expiration mildly prolonged.CARDIAC: Regular rhythm.ABDOMEN: Soft, nontender, nondistended, and nonfocal examination.EXTREMITIES: A 2+ symmetric bipedal distal edema. Calves soft and symmetric.SKIN: No acute findings on brief exam.NEUROLOGIC: Limited. He is a bit drowsy, but arousable. Nonfocal, symmetricbrief exam. LABORATORY DATA AND DIAGNOSTIC DATA: Reviewed including chemistry panelremarkable for BUN of 58 with a creatinine of 1.6. CBC: White count 10.2,hemoglobin 7.6, and platelets 486. Imaging studies including a CT chest withcontrast showing no pulmonary embolism, but bilateral moderate right greaterthan left pleural effusions with some atelectasis and mild airspace disease withpulmonary vascular congestion. His portable chest x-ray done on 06/19/2019shows pulmonary vascular congestion. His BNP was 630 on 06/15/2019; on06/05/2019 it was 1010. Echocardiogram done on 06/15/2019 shows LVH, EF 40% to45%, small pleural effusion. IMPRESSION:1. Worsening shortness of breath. I suspect this is more of heart failure,fluid overload, edema with underlying cardiomyopathy and coronary arterydisease, without evidence for acute coronary syndrome currently.2. Recent hospital stays at [facility]. Some of thenotes were reviewed.3. Coronary artery disease, post-stent.4. Anemia that appears to be chronic, details are not clear, may need furtherworkup at some point.5. Chronic kidney disease, stable.6. Low albumin, protein-calorie malnutrition.7. Significant debility from what I can gather. RECOMMENDATIONS: PATIENT NAME: DUSTY FRANCOIS 1. Supplemental oxygen.2. Bed rest.3. Mobilize as tolerated.4. Cardiovascular evaluation.5. Diuresis as tolerated.6. Optimize cardiovascular medications and management.7. Home medicines.8. PRN medicines.9. Follow up x-rays and lab work.10. His pleural effusions are of ofifo-hi-eaanjoyx size. I do think it isworthwhile doing thoracentesis at this point based on the size, I doubt thiswill help relieve his dyspnea at this point. We can follow his x-rays brandon-evaluate. Thank you for asking me to see Mr. Dusty Francois. We will follow his care. Dictated By: Hunter Shell MD WT: CON:L.RAMON/SHRAVAN/RAPHAEL: 06/20/2019 00:15:51DT: 06/20/2019 00:44:10Conf#: [id number]/DID#: [id number] Authenticated by Hunter Shell MD On 07/15/2019 02:15:38 PM at 1415 PATIENT NAME: DUSTY FRANCOIS :44:00L.[facility]2 [id number] for patient [id number]:16:08 [facility] 2019-06-19 10:41:00 [id number]:41:00 [facility] History PhysicalREPORT#:[id number] REPORT STATUS: SignedDATE:06/19/19 TIME:1041 PATIENT: DUSTY FRANCOIS UNIT #: [id number]#: [id number] ROOM/BED: [facility]-1DOB: [birth year] AGE: 58 SEX: M ATTEND: Jamie Edwards MDADM AUTHOR: Jamie Edwards MD * ALL edits or amendments must be made on the electronic/computer document * History of Present Illness HPIChief complaint:SOBHPI:58 y/o AAM with past medical history of DM, CAD status post MN, CVA, and historyof PNA admitted with shortness of breath which worsened today and was brought tot ER . He has cough and was unable to catch breathing . He was admitted at [place] 3 weeks ago, pt was admitted s/p syncopal episode for MN, CVA, and PNA. Pt stayed for 2 weeks, was discharged, and then returned the same day for O2 desaturation. Pt was admitted again and discharged yesterday. Per medical records, pt received a thoracentesis at [place] regarding concern for fluid overload. Denies fever, chills, abd pain, CP, palpitations, diaphoresis, syncope, and dizziness. HistoryPast medical history:Reports: Diabetes mellitus, Hypertension, Transient ischemic attack, Dyslipidemia. Denies: Asthma, Coronary artery disease. Additional medical history:PNAAdditional surgical history:Toe amputation, x2 cardiac stentsAdditional family history:Brother and Father CADAlcohol use: Denies EtOH useDrug use: Denies recreational drugsSmoking status for patients 13 years old or older: Never Smoker Medication/Allergy-Vaccine HxHome Medications:amLODIPine (NORVASC) 5 MG PO DAILYASPIRIN 81 MG PO DAILYATORVASTATIN (LIPITOR) 80 MG PO DAILY 1700ERGOCALCIFEROL (VITAMIN D2) 50,000 UNITS PO [id number] (LASIX) 40 MG PO BIDHYDROcodone/APAP (NORCO 10/325) 1 TAB PO Q6H PRN PRN PAININSULIN DETEMIR (LEVEMIR) 10 UNITS SUBQ [id number] SUCC XL (TOPROL XL) 75 MG PO BIDTICAGRELOR (BRILINTA) 90 MG PO BID Discontinued MedicationsLISINOPRIL (ZESTRIL) 20 MG PO DAILYMETOPROLOL TARTRATE (LOPRESSOR) 25 MG PO DAILYROSUVASTATIN (CRESTOR) 40 MG PO BEDTIME Allergies:Coded Allergies:No Known Allergies (09/21/18) Review of SystemsAdditional notes:All the 14 point review systems negative except as mentioned HPI Objective GeneralVS/I O:Vital Signs: Date Time Temp Pulse Resp B/P B/P Pulse O2 O2 Flow FiO2 Mean Ox Delivery Rate 06/19 0411 Nasal 2.607113 cannula 06/19 0400 95 Nasal 2.865200 cannula 06/19 0356 100.1 76 20 131/76 94 89 Room air 24 hour I O ending at 0700: 06/19 0700 08 1900 Intake Total Output Total Balance Patient 185 lb Weight Weight Standing scale Measurement Method Patient Weight Weight (lb): Weight (oz): Weight (kg): 84.091 Medications:Active Meds + DC'd Last 24 HrsIopamidol 0 .STK-MED ONE IV (DC) Sodium Chloride 100 ML .STK-MED ONE IV (DC) Insulin Human Lispro 0 AC HS SUBQ Acetaminophen 650 MG Q4H PRN PRN PO Docusate Sodium 100 MG Q12H PRN PRN PO Hydrocodone Bitart/Acetaminophen 1 TAB Q4H PRN PRN PO Hydrocodone Bitart/Acetaminophen 1 TAB Q4H PRN PRN PO Morphine Sulfate 2 MG Q3H PRN PRN IV Morphine Sulfate 4 MG Q3H PRN PRN IV Ondansetron HCl 4 MG Q4H PRN PRN IV Physical ExamGeneral appearance: alert, awakeHead/Eyes: atraumatic, normocephalicENT: dry mucosal membraneNeck: supple/no meningismusCardiovascular: normal heart sounds, regular rate rhythmRespiratory: decreased breath sounds, rales, rhonchiAbdomen: softGenitourinary: no bladder distentionRectal: deferredExtremities: moves allMusculoskeletal: normal inspectionNeuro/VACUUM FILTER OPERATOR: alert, oriented X 3Skin: dry, no rashLymphatics: no lymphadenopathyPsychiatry: anxious ResultsFindings/Data:Laboratory Tests 06/19 06/19 06/19 06/19 0747 0740 0415 0412 Chemistry Sodium (134 - 147 mmol/L) 141 Potassium (3.4 - 5.0 mmol/L) 4.5 Chloride (100 - 108 mmol/L) 108 Carbon Dioxide (21 - 32 mmol/L) 26 Anion Gap (4.0 - 15.0 GAP calc) 7.0 BUN (7 - 18 MG/DL) 28 H Creatinine (0.8 - 1.3 MG/DL) 1.6 H Glomerular Filtr Rate (>60 estGFR) 58 L Glucose (70 - 110 MG/DL) 105 POC Glucose (70 - 110 mg/dL) 106 Calcium (8.5 - 10.1 MG/DL) 8.3 L Total Creatine Kinase (26 - 192 Unit/L) 607 H Troponin I (0.000 - 0.045 NG/ML) 0.699 *H 0.735 *H NT-Pro-B Natriuret Pep (0 - 100 PG/ML) 6115 H Laboratory Tests 06/19 415 Coagulation D-Dimer (215 - 500 ng/mLFEU) 1953 *H Laboratory Tests 06/19 415 Hematology WBC (3.5 - 11.0 K/mm3) 10.2 RBC (4.70 - 6.10 M/mm3) 2.82 L Hgb (12.3 - 15.9 G/DL) 7.6 L Hct (35.8 - 46.7 %) 24.2 L MCV (86.3 - 98.9 Fl) 85.8 L MCH (28.9 - 34.4 pg) 27.0 L MCHC (32.1 - 34.5 G/DL) 31.4 L RDW (11.5 - 14.5 SD) 14.0 Plt Count (150 - 450 K/mm3) 486.0 H MPV (7.0 - 9.6 fL) 8.90 Radiology data:Recent Impressions:RADIOLOGY - XR CHEST 1 V 06/192 Report Impression - Status: SIGNED Entered: 06/19/2019418 IMPRESSION: Stable mild pulmonary vascular congestion.Impression By: [email or web address] Veronica Rivera M.D.CAT SCAN - CT CHEST W/CONTRAST 06/196 Report Impression - Status: SIGNED Entered: 06/19/2019833 IMPRESSION: No CTA evidence to suggest a pulmonary embolism. Bilateral moderate pleural effusions and pulmonary vascular congestionwith regions of more focal airspace opacities, superimposed infectiousprocess should be excluded clinically. Patulous esophagus. Enlarged heart.Impression By: [email or web address] - Courtney Adhikari M.D. Diagnosis, Assessment PlanProblem List/A P: 1. Pulmonary edema Free Text DxA P NotesFree Text DxA P Notes:Shortness of breathBilateral pleural effusionPossible pneumoniaAnemia of chronic diseaseAcute kidney injuryElevated troponinElevated d-dimerHypertensionAcute on chronic hypoxic respiratory failureAcute on chronic congestive heart failure possibly diastolicHypertensionHyperlipidemiaDiabetes mellitusPADCAD status post MN and PCI PlanMonitor closely under telemetryAggressive diuresisAntibioticsTrend cardiac enzymesCardiology consultPulmonology consultContinue home medications and titrate as neededInsulin sliding scaleAntihypertensives titratedWe will continue oxygen supplementationGI/DVT prophylaxis at 1734 RPT #: [id number] OF REPORT HPHistory and physical [id number]:41:00L.[id number] Available for patient [id number]:34:39 [facility] 2019-06-19 04:07:00 [id number]:07:0009 21-0006 [facility] [address] [place] [address] PATIENT NAME: DUSTY FRANCOIS ADMIT DATE: 06/19/19ACCOUNT NO: [id number] ROOM NO: [facility] AGE: 58 REPORT TYPE: eELECTROCARDIOGRAM SEX: M ADMITTING PHYSICIAN: Jamie Edwards MD ATTENDING PHYSICIAN: Jamie Edwards MD Order:[id number] Reason : (Not Selected) Test Date/Time Stamp:WedJun 19 2019 04:07:19Blood Pressure : 131/076 mmHGVent. Rate : 075 BPM Atrial Rate : 075 BPM P-R Int : 138 ms QRS Dur : 092 ms QT Int : 416 ms P-R-T Axes : 076 085 -22 degrees QTc Int : 464 ms Normal sinus rhythmLow voltage QRST wave abnormality, consider inferior ischemiaAbnormal ECGNo previous ECGs availableConfirmed by MD BEV, JUNIOR ([id number]) on 08/05/2019 6:39:48 PM Referred By: Self Referred Confirmed by:JUNIOR PABLO MD at 1839 PATIENT NAME: DUSTY FRANCOIS .[id number] Available for patient [id number]:40:19 [facility] 2019-06-19 04:02:00 [id number]:02:00 H [facility] ([facility])EMERGENCY PROVIDER REPORTREPORT#:[id number] REPORT STATUS: SignedDATE:06/19/19 TIME:0402 PATIENT: DUSTY FRANCOIS UNIT #: [id number]#: [id number] ROOM/BED: 311-1DOB: [birth year] AGE: 58 SEX: M PCP PHYS: Shawanda Wild DOSERVICE AUTHOR: Luis Snowden MD * ALL edits or amendments must be made on the electronic/computer document * HPI-Dyspnea/Wheezing GeneralConfirmed Patient YesPatient Type New patientInitial Greet Date/Time 06/19/19 0357 PresentationChief Complaint Shortness of breathHx Obtained From Patient)( Sudden in Onset? NoOnset Occurred TodaySymptom Duration Since onsetProgression since Onset UnchangedAssociated withReports: Cough. Denies: Fever, Nausea, Vomiting. Exacerbated by NothingRelieved by Nothing ContextImmunization Status General Unknown Free Text HPI NotesFree Text HPI Notes58 y/o M with PMH of DM, MN, CVA, and PNA p/w SOB x today. Today, pt woke up coughing and unable to breathe. 3 weeks ago, pt was admitted s/p syncopal episode for MN, CVA, and PNA. Pt stayed for 2 weeks, was discharged, and then returned the same day for O2 desaturation. Pt was admitted again and discharged yesterday. Per medical records, pt received a thoracentesis at [place] regarding concern for fluid overload. Denies fever, chills, abd pain, CP, palpitations, diaphoresis, syncope, and dizziness. Portions of this section were scribed by Curtis Patterson on 06/19/19 at 0701 Review of Systems ROS StatementsAll systems rev neg except as marked. Focused Review of SystemsRespiratoryReports: Cough, non-productive, Shortness of breath. Free Text ROS NotesFree Text ROS Notes-ConstitutionalDenies: Fever. Chills.-GIDenies: Nausea, Vomiting. Abdominal pain. Diarrhea constipation-GUDenies: Dysuria, Hematuria,-MusculoskeletalDenies: Extremity pain, Ext Swelling-SkinDenies: Rash, Swelling.-NeurologicDenies: Numbness, Tingling.-EyesDenies:visual loss, blurred vision-RespiratoryDenies: dyspnea on exertion-CardiovascularDenies: Chest pain, Dyspnea on exertion, Edema.-Allergy:Denies Hives, Itching Portions of this section were scribed by Curtis Patterson on 06/19/19 at 0407 Past Medical History - AdultStated Complaint O2 SEEMS LOW, WANTING CHECKEDAllergiesCoded Allergies:No Known Allergies (09/21/18) Home MedicationsActive ScriptsamLODIPine (NORVASC) 5 MG PO DAILY amLODIPine (NORVASC) 5 MG PO DAILY #90 TAB Ref 4 Prov: 06/18/19FUROSEMIDE (LASIX) 40 MG PO BID FUROSEMIDE (LASIX) 40 MG PO BID #60 TABS Prov: 06/18/19TICAGRELOR (BRILINTA) 90 MG PO BID TICAGRELOR (BRILINTA) 90 MG PO BID #180 TAB Ref 4 Prov: 06/13/19ATORVASTATIN (LIPITOR) 80 MG PO DAILY 1700 ATORVASTATIN (LIPITOR) 80 MG PO DAILY 1700 #90 TAB Ref 4 Prov: 06/13/19METOPROLOL SUCC XL (TOPROL XL) 75 MG PO BID METOPROLOL SUCC XL (TOPROL XL) 75 MG PO BID #180 TAB Ref 4 Prov: 06/13/19ASPIRIN 81 MG PO DAILY ASPIRIN 81 MG PO DAILY #90 TAB Ref 4 Prov: 06/13/19 Discontinued ScriptsamLODIPine (NORVASC) 10 MG PO DAILY amLODIPine (NORVASC) 10 MG PO DAILY #90 TAB Ref 4 Prov: 06/13/19 DC: 06/18/19 1344 Reported MedicationsERGOCALCIFEROL (VITAMIN D2) 50,000 UNITS PO Q7D HYDROcodone/APAP (NORCO 10/325) 1 TAB PO Q6H PRN PRN PAIN INSULIN DETEMIR (LEVEMIR) 10 UNITS SUBQ Q12HR Review of Nursing Notes Rev avail, and agreePast Medical History:Reports: Diabetes mellitus, Hypertension, Transient ischemic attack, Dyslipidemia. Denies: Asthma, Coronary artery disease. Additional Medical HistoryPNAAdditional Surgical HistoryToe amputation, x2 cardiac stentsAdditional Family HistoryBrother and Father CADAlcohol Use Denies EtOH useDrug Use Denies recreational drugs Portions of this section were scribed by Curtis Patterson on 06/19/19 at 0407 Physical Exam Vital SignsVital SignsFirst Documented: Result Date Time Pulse Ox 89 06/19 0356 B/P 131/76 06/19 0356 B/P Mean 94 06/19 0356 O2 Delivery Room air 06/19 356 Temp 37.8 06/19 035 Pulse 76 06/19 0356 Resp 20 06/19 0356 O2 Flow Rate 2.808049 06/19 0400 Last Documented: Result Date Time O2 Delivery Nasal cannula 06/19 411 O2 Flow Rate 2.653289 06/191 Pulse Ox 95 06/19 0400 B/P 131/76 06/19 0356 B/P Mean 94 06/19 356 Temp 37.8 06/19 356 Pulse 76 06/19 356 Resp 20 06/19 356 Review of Vital Signs Reviewed Free Text PE NotesFree Text PE NotesGeneral/Const General/Const Awake, AlertMS Head Head Atraumatic, NormocephalicEyes Eyes Atraumatic, No scleral icterusMS Neck Neck Atraumatic, Full range of motionResp/Chest CTAB, -wCardiovascular RRR, good cap refillExt: moving all 4 ext, no swelling/ cyanosis noted on UE BlSkin Skin no apparent rashes, Dry, IntactNeurologic Neurologic Oriented X3, Speech NL Portions of this section were scribed by Curtis Patterson on 06/19/19 at 0506 Interpretation Diagnostics Lab Results InterpretationResultsLaboratory Tests 06/19/19 0415:[Embedded Image Not Available]Laboratory Tests: 06/195 0415 Chemistry Sodium (134 - 147 mmol/L) 141 Potassium (3.4 - 5.0 mmol/L) 4.5 Chloride (100 - 108 mmol/L) 108 Carbon Dioxide (21 - 32 mmol/L) 26 Anion Gap (4.0 - 15.0 GAP calc) 7.0 BUN (7 - 18 MG/DL) 28 H Creatinine (0.8 - 1.3 MG/DL) 1.6 H Glomerular Filtr Rate (>60 estGFR) 58 L Glucose (70 - 110 MG/DL) 105 Calcium (8.5 - 10.1 MG/DL) 8.3 L Total Creatine Kinase (26 - 192 Unit/L) 607 H Troponin I (0.000 - 0.045 NG/ML) 0.735 *H NT-Pro-B Natriuret Pep (0 - 100 PG/ML) 6115 H Coagulation D-Dimer (215 - 500 ng/mLFEU) 1953 *H Hematology WBC (3.5 - 11.0 K/mm3) 10.2 RBC (4.70 - 6.10 M/mm3) 2.82 L Hgb (12.3 - 15.9 G/DL) 7.6 L Hct (35.8 - 46.7 %) 24.2 L MCV (86.3 - 98.9 Fl) 85.8 L MCH (28.9 - 34.4 pg) 27.0 L MCHC (32.1 - 34.5 G/DL) 31.4 L RDW (11.5 - 14.5 SD) 14.0 Plt Count (150 - 450 K/mm3) 486.0 H MPV (7.0 - 9.6 fL) 8.90 Recent Impressions:RADIOLOGY - XR CHEST 1 V 06/19 412 Report Impression - Status: SIGNED Entered: 06/19/2019418 IMPRESSION: Stable mild pulmonary vascular congestion.Impression By: Cindy Rivera M.D. Imaging StatementRadiographic studies reviewed and considered in the medical decision-making. Point of Care TestingPulse Oximetry Pulse Ox % 95 On: Nasal cannula Interpretation Interpreted by me, Pulse oximetry normal Time 0400 ECG #1 InterpretationText/Dict NoteLow voltage QRS ECG Documented in MUSE YesDate 06/19/19Time 0415Interpreted by ED physicianNL ECG Interpretation Normal rate, Normal sinus rhythm, No STEMIRate 75 Portions of this section were scribed by Curtis Patterson on 06/19/19 at 0700 Re-Evaluation MDM Free Text MDM NotesFree Text MDM Notes58 y/o gentleman with HPI and PE as aboveVSS 1. Nasal cannula2. Imaging3. Reassessment )( Re-Evaluation/Progress #1Time of Re-Eval 0501)( Re-Eval Status Improved ED CourseMedication(s) OrderedMedication(s) Ordered:Central Nervous System Agents Sig/Jean Carlos Start time Last Medication Dose Route Stop Time Status Admin Acetaminophen 650 MG Q4H PRN PRN 06/19 0700 AC PO 07/19 0659 Morphine Sulfate 2 MG Q3H PRN PRN 06/19 0700 AC IV 06/29 0659 Morphine Sulfate 4 MG Q3H PRN PRN 06/19 0700 AC IV 06/29 0659 Gastrointestinal Drugs Sig/Jean Carlos Start time Last Medication Dose Route Stop Time Status Admin Docusate Sodium 100 MG Q12H PRN PRN 06/19 0700 AC PO 07/19 0659 Ondansetron HCl 4 MG Q4H PRN PRN 08/05 0700 AC IV 07/19 0659 Portions of this section were scribed by Curtis Patterson on 06/19/19 at 0700 Patient Discharge Departure Vital Signs/ConditionVital SignsFirst Documented: Result Date Time Pulse Ox 89 06/19 0356 B/P 131/76 08/ 0356 B/P Mean 94 / 0356 O2 Delivery Room air 06/19 356 Temp 37.8 06/19 0356 Pulse 76 06/19 0356 Resp 20 06/19 0356 O2 Flow Rate 2.461072 06/19 0400 Last Documented: Result Date Time O2 Delivery Nasal cannula 06/19 0411 O2 Flow Rate 2.880536 06/19 0411 Pulse Ox 95 / 0400 B/P 131/76 06/19 0356 B/P Mean 94 06/19 0356 Temp 37.8 / 0356 Pulse 76 06/19 0356 Resp 20 06/19 0356 All vital signs available at the time of this entry have been reviewed. Condition Stable Clinical ImpressionClinical ImpressionPrimary Impression: HypoxiaSecondary Impressions: Pulmonary edema Disposition DecisionAdmit Admit Physician Name Jamie Edwards MD Admit Physician Hospitalist Request Time 07 Request Date 06/19/19 )( Admission Accepts Yes )( Accepted Time 0702 )( Accepted Date 06/19/19 Call Information will see patient, agrees with eval, agrees with plan, will see in office Discharge/Care Plan Admit NoteI have spoken with the patient and/or caregivers. I have explained the patient'scondition, diagnoses and treatment plan based on the information available to meat this time. I have answered the patient's and/or caregiver's questions and addressed any concerns. The patient and/or caregivers have as good an understanding of the patient's diagnosis, condition and treatment plan as can beexpected at this point. The patient has been stabilized within the capability ofthe emergency department. The patient will be transported for further care and management or will be moved to an observation or inpatient service. I have communicated with the staff or medical practitioner taking over this patient's care. Pt/Provider Handoff Shift Change NoteThis patient's care has been transferred to the incoming physician. We discussed: the patient's chief complaint; labs and imaging that have been completed and those that are still pending; procedures that have been completed and those remaining to be done; any treatment provided and the patient's response to treatment; input from consultants (if any); the remaining treatment plan. The incoming physician will follow up on all pending labs and imaging, make any necessary changes to the current impression and/or treatment plan and provide a final disposition. Handoff NoteThis patient's care has been transferred to and accepted by [Dr. Torres]. We discussed: the patient's chief complaint; labs and imaging that have been completed and those that are still pending; procedures that have been completed and those remaining to be done; any treatment provided and the patient's response to treatment; any significant change in condition; input from consultants if any; the treatment plan prior to the transfer of care. The accepting physician will follow up on all pending labs and imaging and make any necessary changes to the current impression and/or treatment plan. The acceptingphysician is now responsible for the patient's care and final disposition. Care Transferred to. [facility] Transferred at 0605Discussed Complaint(s) YesLaboratory Evaluation Awaiting D-Dimer Quality MeasuresBP F/U for HTN Pre-existing HTN Supervising Physician Note Scribe StatementCurtis Patterson, 06/19/19 0402, scribing for and in the presence of [Dr. Snowden].Signed By: Curtis Patterson, 06/19/19 0402 Provider Scribed StatementI personally performed the services described in this documentation and reviewedthe documentation that was dictated to the scribe(s) in my presence, and it accurately records my words and actions. luis snowden 06/19/19 Portions of this section were scribed by Curtis Patterson on 06/19/19 at 0701 at 0128 RPT #: [id number] OF REPORTEDEmergen department [id number]:02:00L.[id number] able for patient [id number]:28:46 [facility] 2019-06-18 14:53:00 [id number]:53:00 H [place] [facility] ([facility])Discharge SummaryREPORT#:[id number] REPORT STATUS: SignedDATE:06/18/19 TIME: 1453 PATIENT: DUSTY FRANCOIS UNIT #: [id number]#: [id number] [address] [birth year] AGE: 58 SEX: M ATTEND: Kyung Bedoya [facility] AUTHOR: Pravin Malhotra MD * ALL edits or amendments must be made on the electronic/computer document * General InformationDate of discharge: 06/18/19Admission diagnosis:Pleural effusionDischarge diagnosis:Coronary artery diseasePleural effusionPneumonia unspecified organismHospital course:Patient with history of coronary artery disease presented with shortness of breathing and fluid overloadCardiology consulted optimized his medical treatment patient was found to have pleural effusions bilaterally more on the left underwent thoracentesis which wasexudative by LDH criteria however I reviewed labs and images I suspect that the pleural effusion is chronic transudate of effusion elevated LDH due to diuresis pending cultures and pathology cultures are negative so far no signs of infection. Clearly patient has signs of fluid overload he received IV Lasix which will be transitioned to p.o. patient is on optimal cardiac medical treatment including antiplatelet beta-jose enrique statins. Patient respiratory status improved significantly he is satting well on room air ambulating lower extremity edema improved significantly as well patient has chronic kidney disease creatinine continued to improve patient will be discharged on p.o. Lasix40 twice daily he will need to follow-up with cardiology as well as renal. Med Rec Med RecDischarge meds:Continue taking these medications:ERGOCALCIFEROL (VITAMIN D2) 50,000 UNITS CAP 50,000 UNITS ORAL EVERY 7 DAYS. HYDROcodone/APAP (NORCO 10/325) 1 TAB TAB 1 TABLET ORAL EVERY 6 HOURS NEEDED. as needed for PAIN INSULIN DETEMIR (LEVEMIR) 100 UNITS/ML VIAL 10 UNITS SUBCUTANEOUS EVERY 12 HOURS. TICAGRELOR (BRILINTA) 90 MG TAB 90 MILLIGRAM ORAL TWICE DAILY. Qty = 180 ATORVASTATIN (LIPITOR) 40 MG TAB 80 MILLIGRAM ORAL DAILY AT 1700. Qty = 90 METOPROLOL SUCC XL (TOPROL XL) 25 MG TAB.SR.24H 75 MILLIGRAM ORAL TWICE DAILY. Qty = 180 ASPIRIN (ASPIRIN) 81 MG TAB.CHEW 81 MILLIGRAM ORAL DAILY. Qty = 90 Start taking the following new medications:FUROSEMIDE (LASIX) 40 MG TAB 40 MILLIGRAM ORAL TWICE DAILY. Qty = 60 No Refills The following medications have been changed:Old:amLODIPine (NORVASC) 10 MG TAB 10 MILLIGRAM ORAL DAILY. Qty = 90 New:amLODIPine (NORVASC) 10 MG TAB 5 MILLIGRAM ORAL DAILY. Qty = 90 ObjectiveVS/I OLast Documented: Result Date Time Pulse Ox 96 06/18 1222 B/P 125/67 06/18 1222 B/P Mean 86.2 06/18 1222 O2 Delivery Room air 06/18 1222 Temp 37.0 06/18 1222 Pulse 72 06/18 1222 Resp 17 06/18 1222 O2 Flow Rate 2.905773 06/18 0935 FiO2 28 06/15 2035 24 hour I O ending at 0700: 06/18 0700 06/17 1900 Intake Total 480 240 Output Total 500 Balance -20 240 Intake, Oral 480 240 Output, Urine 500 Patient Weight Weight (lb): 204Weight (oz): 2.37Weight (kg): 92.600 General appearance: alert, awake, orientedHead/Eyes: atraumatic, clear cornea, EOMI, normocephalic, normal conjunctiva/sclera, normal fundi, normal eyelids/periorb., PERRLAENT: normal dentition, normal ear left, normal ear right, normal nose, normal pharynx, normal sinusNeck: full range of motion, non-tender, no bruit/NL carotids, no JVD, no lymphadenopathy, no masses or swelling, normal thyroid, supple/no meningismusCardiovascular: normal capillary refill, regular rate rhythmRespiratory: clear to auscultation, no distress, no tendernessGI: soft, non-tender, no guarding, no rebound, no distention, no mass/organomegaly, no pulsatile mass, no hernia, normal abdominal aortaExtremities: +1 EDEMAMusculoskeletal: full range of motion, normal inspectionNeuro/VACUUM FILTER OPERATOR: alert, oriented X 3Glasgow Coma Score: Alma Coma Score: Response Value Arielle eyes: eyes open spontaneously 4 Arielle speech: oriented 5 Arielle motor: obeys commands 6 Total 15 Skin: dry, intact, no gross abnormalitiesLymphatic: axilla normal, inguinal normal, no lymphadenopathy, neck normalPsychiatry: no hallucinations, normal affect, normal judgment/insight, normal mood, not homicidal, not suicidal ResultsFindings/Data:Laboratory Tests: 06/18 06/18 06/18 06/17 06/17 1218 0740 0530 2049 1724 Chemistry Sodium (134 - 147 mEq/L) 149 H Potassium (3.4 - 5.0 mEq/L) 4.4 Chloride (100 - 108 mEq/L) 110 H Carbon Dioxide (21 - 33 mEq/L) 29 Anion Gap (0 - 20) 14 BUN (7 - 18 mg/dL) 32 H Creatinine (0.6 - 1.3 mg/dL) 1.7 H Glomerular Filtr Rate (90 - 95) 50.7 L Glucose (70 - 110 mg/dL) 93 POC Glucose (70 - 110 MG/DL) 137 H 87 178 H 205 H Calcium (8.0 - 10.5 mg/dL) 8.5 Phosphorus (2.5 - 4.9 mg/dL) 4.5 Iron (35 - 150 mcg/dL) 21 L TIBC (260 - 445 mcg/dL) 174 L % Saturation (14 - 34 %) 12.1 L Unsat Iron Binding (mcg/dL) 153 Ferritin (23.9 - 336.2 ng/mL) 314.9 Albumin (3.4 - 5.0 g/dL) 1.90 L Radiology data:Recent Impressions:RADIOLOGY - XR CHEST 1 V 06/18 0657 Report Impression - Status: SIGNED Entered: 06/18/2019 0740 IMPRESSION:Stable cardiomegaly.Continued mild fluid overload and probable small right pleuraleffusion present.Hypoventilatory changes left lung base.Impression By: Go Quezada M.D. Treatments ProceduresTreatments Procedures:1.DYSPNEA - MULTIFACTORIAL - PNA /EFFUSION /ANEMIA 2. HCAP -off antibiotics no signs of pneumonia completed antibiotic course I reviewed the CT scan very unlikely that the patient has pneumonia most likely this is compressive atelectasis related to the pleural effusion 3.PLEURAL EEFFUSION -S/P THORACOCETESIS - EXUDATIVE BY ldh CRITERIA. COULD BE CHRONIC TRANSUDATIVE FLUID RELATED TO chf, RECURRENT EFFUSION. FOLLOW cX. REPEATcxr in am. if resp status is stable, will discharger 4, ABNORMAL CT CHEST -I reviewed Chest CT, no indication for bronch. Has compressive atelecatasis 5. DM -BS FAIR 6.ANEMIA hemoglobin is a stable 7 RECENT [place] - PCI TO LAD, CIRCUMFLEX, -ASA ,BRILANTA ,STATIN 8.HTN -BP STABLE 7.SYSTOLIC HEART FAILURE -COMPENSATED - EF 45% , cardiac medication Discharge Instructions Follow-up AppointmentsPCP: PCP: Shawanda Wild DO Follow up timeframe: In 1-2 weeksAttending Physician: Attending Physician: Kyung Bedoya MD Jbjlorpeik provider 1: Provider 1: Gideon Teran MD Specialty: NEPHROLOGY Follow up timeframe: In 1-2 weeksConsulting provider 2: Provider 2: Jennifer Gonzalez MD Specialty: CARDIOLOGY Follow up timeframe: In 1-2 weeksConsulting provider 3: Provider 3: Antoine Lee MD Specialty: PULMONARY Follow up timeframe: In 1-2 weeks at [facility] #:[id number] OF REPORTDSDischarge phiappt8923-35-72R44:53:00G.[id number] lable for patient lythIEPAOTTIZHBOAL0938-51-15V59:56:32 [facility] 2019-06-17 18:11:00 [id number]:11:[address] [address] PATIENT NAME: DUSTY FRANCOIS ADMIT DATE: 06/15/19ACCOUNT NO: [id number] ROOM NO: G.[id number] AGE: 58 REPORT TYPE: PROGRESS NOTE SEX: M ADMITTING PHYSICIAN:Kyung Bedoya MD ATTENDING PHYSICIAN:Kyung Bedoya MD DATE: PULMONARY PROGRESS NOTE SUBJECTIVE: The patient is doing well. He feels his breathing is better todayand denies any increasing shortness of breath. He has been coughing a littlebit he said, but no hemoptysis, no fever, no chills, no rigors. PHYSICAL EXAMINATION:VITAL SIGNS: On examination, his most recent vital signs show blood esbolyhd230/65, pulse 78, breathing 18, temperature 37.6, satting 93%.HEAD AND NECK: Atraumatic and normocephalic. Pupils equal and reactive tolight and accommodation. Trachea was central. Thyroid not enlarged. Nocarotid bruits and neck was supple.CHEST: Good air entry bilaterally. No wheezing. No rhonchi and had somedecreased air entry on the right side and some dullness to percussion. He saidhe feels better after the thoracentesis.HEART: Distant sounds. No murmurs, gallops, or rubs.ABDOMEN: Soft, lax, nontender. Bowel sounds present. No organomegaly. [place].EXTREMITIES: No rash, clubbing, cyanosis, or edema.NEUROLOGIC: He is nonfocal. Reviewed the procedure note and the thoracentesis, showed that they got 1100 mLclear yellow fluid removed from the right lung area and right pleural effusion. LABORATORY DATA: His labs for today showed a white count of 8.6, hemoglobin7.1, platelets were 425. Chemistry was normal except for chloride 110, BUN is34, creatinine 1.7, sugar was 111. PROBLEM LIST:1. Shortness of breath.2. Parapneumonic effusion.3. Anemia.4. Possible pneumonia.5. Status post thoracentesis.6. Diabetes.7. Anemia.8. Hypertension.9. History of systolic heart failure. RECOMMENDATIONS:1. Await test results from the pleural fluid to see if it is transudate versus PATIENT NAME: DUSTY FRANCOIS exudative. If it is more transudative, we may have to diurese him a littlemore.2. Meanwhile, continue antibiotics.3. Sliding scale for hyperglycemia.4. Increase activity. PT, OT.5. Advised the patient to use incentive spirometer q. 1 hour while awake andshowed him how to use it appropriately. Dictated By: Luba Alcantar MD WT: PN:GRebeccaRAMON/JAGUAR/NTSDD: 06/17/2019 18:11:48DT: 06/17/2019 18:56:28Conf#: [id number]/DID#: [id number] Authenticated by Luba Alcantar MD On 06/20/2019 11:50:53 AM at 1151 PATIENT NAME: DUSTY FRANCOIS Jtzs1155-62-25R28:56:00G.[id number] e for patient stjoCQKJTYYZPYDZCJ0414-76-12F69:51:32 [facility] 2019-06-17 14:29:00 [id number]:29:00 [facility] Prog. NoteREPORT#:[id number] REPORT STATUS: SignedDATE:06/17/19 TIME: 1429 PATIENT: DUSTY FRANCOIS UNIT #: [id number]#: [id number] ROOM/BED: [facility]-1DOB: [birth year] AGE: 58 SEX: M ATTEND: Kyung Bedoya [facility] AUTHOR: Pravin Malhotra MD * ALL edits or amendments must be made on the electronic/computer document * SubjectiveChief Complaint:FEELING LITTLE BETETRNO DISTRESSNO PAIN Review of SystemsConstitutional:Reports: generalized weakness. Skin:Denies: abrasion, bruising, contusion, diaphoresis, ecchymosis, itching, laceration, rash, swelling, other. Allergy/Immun:Denies: allergic reaction, anaphylaxis, hives, itching, rhinorrhea, sneezing, other. Eyes:Denies: redness, discharge, visual loss/blurred, itching, diplopia, eye pain, photophobia, swelling, other. Respiratory:Denies: SORIANO (dyspnea on exertion), hemoptysis, non productive cough, parox nocturnal dyspnea, pleurisy, pleuritic pain, pneumonia, productive cough (sputum), SOB, wheezing, other. Cardiovascular:Denies: chest pain, SORIANO (dyspnea on exertion), edema, orthopnea, palpitations, parox nocturnal dyspnea, other. GI:Denies: abdominal pain, anorexia, constipation, diarrhea, dysphagia, GERD, hematemesis, hematochezia, hiatal hernia, melena, nausea, rectal pain, vomiting,other. Musculoskeletal:Reports: myalgias. Neuro:Reports: weakness. Objective GeneralVS/I O:Vital Signs Date Temp Pulse Resp B/P B/P Mean Pulse Ox FiO2 06/16-06/17 36.9-37.2 75-81 16-18 116-136/65-77 82.0-96.8 90-98 Last Documented: Result Date Time Pulse Ox 92 06/17 1158 B/P 118/72 06/17 1158 B/P Mean 87.2 06/17 1158 O2 Delivery Room air 06/17 1158 Temp 36.9 06/17 1158 Pulse 80 06/17 1158 Resp 18 06/17 1158 O2 Flow Rate 2.495364 06/16 0840 FiO2 28 06/15 2035 24 hour I O ending at 0700: 06/17 0700 06/16 1900 Intake Total 240 795 Output Total 280 150 Balance -40 645 Intake, Oral 240 795 Number Voids 3 Output, Urine 280 150 Patient Weight Weight (lb): 204Weight (oz): 2.37Weight (kg): 92.600 Physical ExamGeneral appearance: alert, awake, orientedHead/Eyes: atraumatic, EOMI, normal conjunctiva/scleraENT: moist mucosal membranesBreast: no massCardiovascular: normal capillary refill, normal heart sounds, regular rate rhythmRespiratory: aerating well, clear to auscultationAbdomen: non-tender, normal bowel sounds, soft, no distention ResultsFindings/Data:Laboratory Tests 06/17/19 0540:[Embedded Image Not Available]Laboratory Tests 06/17 06/17 06/16 0750 0540 2048 Chemistry Sodium (134 - 147 mEq/L) 143 Potassium (3.4 - 5.0 mEq/L) 4.0 Chloride (100 - 108 mEq/L) 110 H Carbon Dioxide (21 - 33 mEq/L) 27 Anion Gap (0 - 20) 10 BUN (7 - 18 mg/dL) 34 H Creatinine (0.6 - 1.3 mg/dL) 1.7 H Glomerular Filtr Rate (90 - 95) 50.7 L Glucose (70 - 110 mg/dL) 111 H POC Glucose (70 - 110 MG/DL) 100 194 H Calcium (8.0 - 10.5 mg/dL) 8.5 Phosphorus (2.5 - 4.9 mg/dL) 3.8 Magnesium (1.8 - 2.4 mg/dL) 2.10 Laboratory Tests 06/17 0540 Hematology WBC (4.5 - 11.0 x10 3/uL) 8.62 RBC (4.00 - 5.60 x10 6/uL) 2.64 L Hgb (12.5 - 16.9 g/dL) 7.1 L Hct (37.5 - 50.7 %) 23.0 L MCV (81.0 - 99.0 fL) 87.1 MCH (27.0 - 33.0 pg) 26.9 L MCHC (33.0 - 37.0 g/dL) 30.9 L RDW (11.5 - 14.5 %) 13.7 Plt Count (150 - 400 x10 3/uL) 425 H MPV (7.0 - 9.0 fL) 9.4 H Neut % (Auto) (56.0 - 77.0 %) 69.9 Lymph % (Auto) (14.0 - 32.0 %) 19.0 [place]land % (Auto) (4.8 - 9.0 %) 7.4 Eos % (Auto) (0.3 - 3.7 %) 3.1 Baso % (Auto) (0.0 - 2.0 %) 0.1 Neut # (Auto) (2.0 - 7.6 x10 3/uL) 6.02 Lymph # (Auto) (1.0 - 3.8 x10 3/uL) 1.64 [place]land # (Auto) (0.1 - 0.8 x10 3/uL) 0.64 Eos # (Auto) (0.0 - 0.2 x10 3/uL) 0.27 H Baso # (Auto) (0.0 - 0.2 x10 3/uL) 0.01 Abs Immat Gran (auto) (0.00 - 0.03 x10 3/uL) 0.04 H Add Manual Diff NO Immature Gran % (0.0 - 2.0 %) 0.5 Nucleated RBC % (0 - 0 %) 0.0 Nucleated RBCs # (Man) (0.0 - 0.1 x10 3/uL) 0.00 Laboratory Tests 06/16 06/16 1450 1450 Other Body Source Fluid Source PLEURAL FLUID Fluid Color Yellow Fluid Appearance CLOUDY Fluid WBC (Auto) (0 - 500 cells/uL) 172 Fluid RBC (Auto) (<=100,000 cells/uL) < 2000 Fluid Polynuclear WBCs (%) 12 Fluid Lymphocytes % (%) 66 Fluid Monocytes (%) 1 Fluid Macrophages (%) 21 Fld Mesothelial Cells (%) Fluid Glucose (() MG/DL) 158 Fluid Total Protein (() G/DL) < 2.0 Fluid LDH (50 - 1500 UNITS/L) 499 Fluid Comment (Comment) PATHOLOGIST REVIEW Radiology data:Recent Impressions:ULTRASOUND - US THORACENTESIS W/IMAG 06/16 1453 Report Impression - Status: SIGNED Entered: 06/16/2019 1508 IMPRESSION:1. Large right pleural effusion.2. Technically successful ultrasound-guided thoracentesis. Impression By: Montse Stone D.O.ULTRASOUND - US ABDOMEN LTD 06/16 1454 Report Impression - Status: SIGNED Entered: 06/16/2019 1508 IMPRESSION:1. Large right pleural effusion.2. Technically successful ultrasound-guided thoracentesis. Impression By: Montse Stone D.O.RADIOLOGY - XR CHEST 1 V 06/16 1507 Report Impression - Status: SIGNED Entered: 06/16/2019 1511 IMPRESSION: Lines, tubes and hardware: None. Heart, mediastinum and lungs: The heart size is enlarged butunchanged. Vascular calcifications are present at the aorta. Pulmonaryvascularity is normal. Status post right thoracentesis without rightpneumothorax. Interval near complete clearing of right pleuraleffusion is seen. Trace bilateral pleural effusions. SL: [id number] Impression By: Montse Thurston Stone, D.O. Diagnosis, Assessment PlanConsultants: cardiology, pulmonary Free Text DxA P NotesFree Text DxA P Notes:1.DYSPNEA - MULTIFACTORIAL - PNA /EFFUSION /ANEMIA 2. HCAP -S/P ANTIBIOTICS - NO SIGNS OF INFECTION NOW - PULMO FU 3.PLEURAL EEFFUSION -S/P THORACOCETESIS - EXUDATIVE BY ldh CRITERIA. COULD BE CHRONIC TRANSUDATIVE FLUID RELATED TO chf, RECURRENT EFFUSION. FOLLOW cX. REPEATcxr in am. if resp status is stable, will discharger 4, ABNORMAL CT CHEST -I reviewed Chest CT, no indication for bronch. Has compressive atelecatasis 5. DM -BS FAIR 6.ANEMIA -WILL TRANSFUSE IF HB DROPS < 7 ,MONITOR 7 RECENT [place] - PCI TO LAD, CIRCUMFLEX, -ASA ,BRILANTA ,STATIN 8.HTN -BP STABLE 7.SYSTOLIC HEART FAILURE -COMPENSATED - EF 45% at 1431 RPT #:[id number] OF REPORTPRProgress Odsc2042-60-71D29:29:00G.[id number] le for patient gpypQEVAKHOZUIULEO4613-48-76F17:31:49 [facility] 2019-06-17 11:38:00 ETorjinfnxf373249811151-48-92I61:38:00 H [place] [facility] ([facility])Nephrology Progress NoteREPORT#:[id number] REPORT STATUS: SignedDATE:06/17/19 TIME: 1138 PATIENT: DUSTY FRANCOIS UNIT #: [id number]#: [id number] [address] [birth year] AGE: 58 SEX: M ATTEND: Kyung Bedoya AUTHOR: Pancho Reinoso MD * ALL edits or amendments must be made on the electronic/computer document * SubjectiveChief Complaint:SOB/Elevated CreatComments:Feels betterLess SOBWants to go back homeedema is better Review of SystemsConstitutional:Yes fatigue, No chills, No feverSkin:Yes swellingAllergy/Immun:No hives, No itchingEyes:No redness, No dischargeENT:No ear drainage, No ear ringingRespiratory:Yes SORIANO (dyspnea on exertion), No wheezingCardiovascular:No chest pain Objective GeneralVS/I O:Vital Signs: Date Time Temp Pulse Resp B/P B/P Pulse O2 O2 Flow FiO2 Mean Ox Delivery Rate 06/17 0809 36.9 75 18 124/70 88.2 98 Nasal cannula 06/17 0418 36.9 76 18 119/70 86.2 93 Nasal cannula 06/16 2253 37.2 79 16 116/65 82.0 91 06/16 1911 36.9 81 18 130/73 92.0 90 06/16 1612 37.1 78 16 136/77 96.8 93 Room air 06/16 1155 37.4 81 15 131/81 97.5 95 Room air 24 hour I O ending at 0700: 06/17 0700 06/16 1900 Intake Total 240 795 Output Total 280 150 Balance -40 645 Intake, Oral 240 795 Number Voids 3 Output, Urine 280 150 MedicationsActive Meds + DC'd Last 24 HrsErgocalciferol 50,000 INTL.UNITS Q7D PO (CKD) Amlodipine Besylate 10 MG DAILY PO Aspirin 81 MG DAILY PO Furosemide 40 MG Q12H IV Atorvastatin Calcium 80 MG DAILY 1700 PO Acetaminophen 650 MG Q4H PRN PRN PO Hydrocodone Bitart/Acetaminophen 1 TAB Q6H PRN PRN PO Ondansetron HCl 4 MG Q4H PRN PRN IV Potassium Chloride 40 MEQ DAILY PRN PRN PO Insulin Glargine 10 UNIT Q12HR SUBQ Metoprolol Succinate 75 MG BID PO Ticagrelor 90 MG BID PO Hydrocodone Bitart/Acetaminophen 1 TAB Q6H PRN PRN PO Physical ExamGeneral appearance: alert, awakeHead/eyes: atraumatic, normocephalicENT: moist mucous membranes, normal noseNeck: supple/no meningismusCardiovascular: normal heart sounds, no rubRespiratory: aerating well, no distressAbdomen: non-tender, softGenitourinary: no flank pain, no foleyExtremities: pitting edema, non-tenderMusculoskeletal: no CVA tenderness, no tenderenessNeuro/VACUUM FILTER OPERATOR: alert, normal speechSkin: dry, intact ResultsFindings/Data:Laboratory Tests 06/17 06/17 06/16 0750 0540 2048 Chemistry Sodium (134 - 147 mEq/L) 143 Potassium (3.4 - 5.0 mEq/L) 4.0 Chloride (100 - 108 mEq/L) 110 H Carbon Dioxide (21 - 33 mEq/L) 27 Anion Gap (0 - 20) 10 BUN (7 - 18 mg/dL) 34 H Creatinine (0.6 - 1.3 mg/dL) 1.7 H Glomerular Filtr Rate (90 - 95) 50.7 L Glucose (70 - 110 mg/dL) 111 H POC Glucose (70 - 110 MG/DL) 100 194 H Calcium (8.0 - 10.5 mg/dL) 8.5 Phosphorus (2.5 - 4.9 mg/dL) 3.8 Magnesium (1.8 - 2.4 mg/dL) 2.10 Laboratory Tests 06/17 0540 Hematology WBC (4.5 - 11.0 x10 3/uL) 8.62 RBC (4.00 - 5.60 x10 6/uL) 2.64 L Hgb (12.5 - 16.9 g/dL) 7.1 L Hct (37.5 - 50.7 %) 23.0 L MCV (81.0 - 99.0 fL) 87.1 MCH (27.0 - 33.0 pg) 26.9 L MCHC (33.0 - 37.0 g/dL) 30.9 L RDW (11.5 - 14.5 %) 13.7 Plt Count (150 - 400 x10 3/uL) 425 H MPV (7.0 - 9.0 fL) 9.4 H Neut % (Auto) (56.0 - 77.0 %) 69.9 Lymph % (Auto) (14.0 - 32.0 %) 19.0 [place]land % (Auto) (4.8 - 9.0 %) 7.4 Eos % (Auto) (0.3 - 3.7 %) 3.1 Baso % (Auto) (0.0 - 2.0 %) 0.1 Neut # (Auto) (2.0 - 7.6 x10 3/uL) 6.02 Lymph # (Auto) (1.0 - 3.8 x10 3/uL) 1.64 [place] # (Auto) (0.1 - 0.8 x10 3/uL) 0.64 Eos # (Auto) (0.0 - 0.2 x10 3/uL) 0.27 H Baso # (Auto) (0.0 - 0.2 x10 3/uL) 0.01 Abs Immat Gran (auto) (0.00 - 0.03 x10 3/uL) 0.04 H Add Manual Diff NO Immature Gran % (0.0 - 2.0 %) 0.5 Nucleated RBC % (0 - 0 %) 0.0 Nucleated RBCs # (Man) (0.0 - 0.1 x10 3/uL) 0.00 Laboratory Tests 06/16 06/16 1450 1450 Other Body Source Fluid Source PLEURAL FLUID Fluid Color Yellow Fluid Appearance CLOUDY Fluid WBC (Auto) (0 - 500 cells/uL) 172 Fluid RBC (Auto) (<=100,000 cells/uL) < 2000 Fluid Polynuclear WBCs (%) 12 Fluid Lymphocytes % (%) 66 Fluid Monocytes (%) 1 Fluid Macrophages (%) 21 Fld Mesothelial Cells (%) Fluid Glucose (() MG/DL) 158 Fluid Total Protein (() G/DL) < 2.0 Fluid LDH (50 - 1500 UNITS/L) 499 Fluid Comment (Comment) PATHOLOGIST REVIEW Radiology data:Recent Impressions:ULTRASOUND - US THORACENTESIS W/IMAG 06/16 1453 Report Impression - Status: SIGNED Entered: 06/16/2019 1508 IMPRESSION:1. Large right pleural effusion.2. Technically successful ultrasound-guided thoracentesis. Impression By: Montse Stone D.O.ULTRASOUND - US ABDOMEN LTD 06/16 1454 Report Impression - Status: SIGNED Entered: 06/16/2019 1508 IMPRESSION:1. Large right pleural effusion.2. Technically successful ultrasound-guided thoracentesis. Impression By: Montse Stone D.O.RADIOLOGY - XR CHEST 1 V 06/16 1507 Report Impression - Status: SIGNED Entered: 06/16/2019 1511 IMPRESSION: Lines, tubes and hardware: None. Heart, mediastinum and lungs: The heart size is enlarged butunchanged. Vascular calcifications are present at the aorta. Pulmonaryvascularity is normal. Status post right thoracentesis without rightpneumothorax. Interval near complete clearing of right pleuraleffusion is seen. Trace bilateral pleural effusions. SL: [id number] Impression By: AlenaMP37 - Bertrand Stone D.O. Diagnosis, Assessment PlanFree Text A P:Patient seen and evaluated, discussed with care team, Images and laboratory reviewedHistory of HTN: metoprolol: Monitor BP closely and adjust medications as neededDM: insulin: Monitor BS closely and adjust medications as neededHLD: LipitorCAD s/p NSTEMI , s/p LHC and LAD/LCX PCI: ASA/TicagrelorPNA treated with Rocephin/AzithromaxSOB with elevated BNPRecent BRENDA felisha related to CINHis baseline creat 1.2 in Sep 2018, eGFR 80 , felisha had some progression since thenReturned to the ED yesterday with SON, elevated BNP and troponin , on Lasix , Cardiology consulted, Increase Lasix to BID , Creat better today 1.9 06/17---> s/p thoracentesis. fluid is transudative. Decrease norvasc. continue IV lasix. Add epo. Check Fe panel. D/.c planning at 1251 RPT #:[id number] OF REPORTPRProgress Gkxo9611-56-59P41:38:00G.[id number] le for patient mjwhLNSFWHUUDBIVMP3966-66-04F69:51:49 [facility] 2019-06-16 15:07:00 VKkkinflxyj440099571595-66-86N98:07:00 [facility] [place] [facility] ([facility])Brief Op NoteREPORT#:[id number] REPORT STATUS: SignedDATE:06/16/19 TIME: 1507 PATIENT: DUSTY FRANCOIS UNIT #: [id number]#: [id number] [address] [birth year] AGE: 58 SEX: M ATTEND: Sonja Bedoyay MDADM AUTHOR: Alise Barr PA-C * ALL edits or amendments must be made on the electronic/computer document * Op/Inv Proc Note - BriefPre-procedure diagnosis:Right pleural effusionPost-procedure diagnosis: same as pre procedure dxProcedures performed:ULTRASOUND GUIDED THORACENTESISPrimary Surgeon:Alise Naikistant(s): noneAnesthesia: local anesthesiaFindings:Time out was performed. With the patient seated erect, the posterior thorax was scanned with ultrasound and an appropriate site for thoracentesis was marked. An ultrasound image was stored in PACs. The skin was prepped and draped in the usual sterile fashion. 1% lidocaine was used to anesthetize a tract from the skin to pleural space. A 5-Somali needle/catheter system was used to enter the pleural space. Once an aspirate of pleural fluid was obtained, the catheter was advanced into the pleural space and the needle withdrawn. Approximately 1100cc s of clear yellow fluid was removed. There were no intraoperative complications and patient tolerated the procedure well. An immediate post-op CXRwas negative for pneumothorax. The patient left the procedure room in good condition. Complications: noneEstimated blood loss in ml's: noneSpecimens removed/altered: 1100cc of clear yellow fluid removed. at 1508 RPT #:[id number] OF REPORTOPOperative ofewjz0041-44-10N04:07:00G.[id number] able for patient krpoUIFHUCNKERYHDF4195-00-74J81:08:56 [facility] 2019-06-16 14:06:00 DMtighivpok547302493431-70-46F40:06:00 [facility] Prog. NoteREPORT#:[id number] REPORT STATUS: SignedDATE:06/16/19 TIME: 1406 PATIENT: DUSTY FRANCOIS UNIT #: [id number]#: [id number] [address] [birth year] AGE: 58 SEX: M ATTEND: Kyung Bedoya MDADM AUTHOR: Kyung Bedoya MD * ALL edits or amendments must be made on the electronic/computer document * SubjectiveChief Complaint:FEELING LITTLE BETETRNO DISTRESSNO PAIN Review of SystemsConstitutional:Reports: generalized weakness. Skin:Denies: abrasion, bruising, contusion, diaphoresis, ecchymosis, itching, laceration, rash, swelling, other. Allergy/Immun:Denies: allergic reaction, anaphylaxis, hives, itching, rhinorrhea, sneezing, other. Eyes:Denies: redness, discharge, visual loss/blurred, itching, diplopia, eye pain, photophobia, swelling, other. Respiratory:Denies: SORIANO (dyspnea on exertion), hemoptysis, non productive cough, parox nocturnal dyspnea, pleurisy, pleuritic pain, pneumonia, productive cough (sputum), SOB, wheezing, other. Cardiovascular:Denies: chest pain, SORIANO (dyspnea on exertion), edema, orthopnea, palpitations, parox nocturnal dyspnea, other. GI:Denies: abdominal pain, anorexia, constipation, diarrhea, dysphagia, GERD, hematemesis, hematochezia, hiatal hernia, melena, nausea, rectal pain, vomiting,other. Musculoskeletal:Reports: myalgias. Neuro:Reports: weakness. Objective GeneralVS/I O:Vital SignsDate Temp Pulse Resp B/P B/P Mean Pulse Ox XyW988/-06/16 97.7-99.3 76-81 15-18 115-150/73-90 86.8-109.9 93-98 28 Last Documented: Result Date Time Pulse Ox 95 06/16 1155 B/P 131/81 06/16 1155 B/P Mean 97.5 06/16 1155 O2 Delivery Room air 06/16 1155 Temp 99.3 08/ 1155 Pulse 81 08 1155 Resp 15 06/16 1155 O2 Flow Rate 2.948742 06/16 0840 FiO2 28 06/15 2035 24 hour I O ending at 0700: 06/16 0700 06/15 1900 Intake Total 360 Output Total 100 Balance 260 Intake, Oral 360 Number Voids 1 Output, Urine 100 Patient 92.6 kg Weight Weight Bed scale Measurement Method Patient Weight Weight (lb): 204Weight (oz): 2.37Weight (kg): 92.600 Medications:Active Meds + DC'd Last 24 HrsErgocalciferol 50,000 INTL.UNITS Q7D PO (CKD) Amlodipine Besylate 10 MG DAILY PO Aspirin 81 MG DAILY PO Furosemide 40 MG DAILY IV (DC) Furosemide 40 MG Q12H IV Atorvastatin Calcium 80 MG DAILY 1700 PO Acetaminophen 650 MG Q4H PRN PRN PO Hydrocodone Bitart/Acetaminophen 1 TAB Q6H PRN PRN PO Ondansetron HCl 4 MG Q4H PRN PRN IV Potassium Chloride 40 MEQ DAILY PRN PRN PO Insulin Glargine 10 UNIT Q12HR SUBQ Metoprolol Succinate 75 MG BID PO Ticagrelor 90 MG BID PO Hydrocodone Bitart/Acetaminophen 1 TAB Q6H PRN PRN PO Hydralazine HCl 10 MG Q2H PRN PRN IV (DC) Hydrocodone Bitart/Acetaminophen 1 TAB Q4H PRN PRN PO (DC) Morphine Sulfate 4 MG Q4H PRN PRN IV (DC) Ondansetron HCl 4 MG Q6H PRN PRN IV (DC) Sodium Chloride 0 ASDIR PRN IV (DC) Physical ExamGeneral appearance: alert, awake, orientedHead/Eyes: atraumatic, EOMI, normal conjunctiva/scleraENT: moist mucosal membranesBreast: no massCardiovascular: normal capillary refill, normal heart sounds, regular rate rhythmRespiratory: aerating well, clear to auscultationAbdomen: non-tender, normal bowel sounds, soft, no distention ResultsFindings/Data:Laboratory Tests 06/16/19 0420:[Embedded Image Not Available]Laboratory Tests 06/16 06/16 06/15 0838 0420 2116 Chemistry Sodium (134 - 147 mEq/L) 140 Potassium (3.4 - 5.0 mEq/L) 4.4 Chloride (100 - 108 mEq/L) 109 H Carbon Dioxide (21 - 33 mEq/L) 26 Anion Gap (0 - 20) 9 BUN (7 - 18 mg/dL) 34 H Creatinine (0.6 - 1.3 mg/dL) 1.9 H Glomerular Filtr Rate (90 - 95) 44.6 L Glucose (70 - 110 mg/dL) 129 H POC Glucose (70 - 110 MG/DL) 119 H 155 H Calcium (8.0 - 10.5 mg/dL) 8.6 Phosphorus (2.5 - 4.9 mg/dL) 3.5 Magnesium (1.8 - 2.4 mg/dL) 2.30 Laboratory Tests 06/16 0420 Hematology WBC (4.5 - 11.0 x10 3/uL) 9.51 RBC (4.00 - 5.60 x10 6/uL) 2.75 L Hgb (12.5 - 16.9 g/dL) 7.4 L Hct (37.5 - 50.7 %) 23.9 L MCV (81.0 - 99.0 fL) 86.9 MCH (27.0 - 33.0 pg) 26.9 L MCHC (33.0 - 37.0 g/dL) 31.0 L RDW (11.5 - 14.5 %) 13.9 Plt Count (150 - 400 x10 3/uL) 465 H MPV (7.0 - 9.0 fL) 9.6 H Neut % (Auto) (56.0 - 77.0 %) 68.5 Lymph % (Auto) (14.0 - 32.0 %) 17.8 [place] % (Auto) (4.8 - 9.0 %) 8.9 Eos % (Auto) (0.3 - 3.7 %) 4.2 H Baso % (Auto) (0.0 - 2.0 %) 0.2 Neut # (Auto) (2.0 - 7.6 x10 3/uL) 6.51 Lymph # (Auto) (1.0 - 3.8 x10 3/uL) 1.69 [place] # (Auto) (0.1 - 0.8 x10 3/uL) 0.85 H Eos # (Auto) (0.0 - 0.2 x10 3/uL) 0.40 H Baso # (Auto) (0.0 - 0.2 x10 3/uL) 0.02 Abs Immat Gran (auto) (0.00 - 0.03 x10 3/uL) 0.04 H Add Manual Diff NO Immature Gran % (0.0 - 2.0 %) 0.4 Nucleated RBC % (0 - 0 %) 0.0 Nucleated RBCs # (Man) (0.0 - 0.1 x10 3/uL) 0.00 Diagnosis, Assessment PlanOrders: Procedure Date/time Status TRANSPORT REQUEST 06/16 1430 Active PHOSPHOROUS 06/16 0420 Complete MAGNESIUM 06/16 042 Complete OXYGEN PER HOUR 06/16 0234 Active Consultants: cardiology, pulmonaryCode status: full code Free Text DxA P NotesFree Text DxA P Notes:1.DYSPNEA - MULTIFACTORIAL - PNA /EFFUSION /ANEMIA 2. HCAP -S/P ANTIBIOTICS - NO SIGNS OF INFECTION NOW - PULMO FU 3.PLEURAL EEFFUSION -S/P THORACOCETESIS - 4, ABNORMAL CT CHEST -PULMO FU , MAY NEED BRONCHOSCOPE 5. DM -BS FAIR 6.ANEMIA -WILL TRANSFUSE IF HB DROPS < 7 ,MONITOR 7 RECENT MN - PCI TO LAD, CIRCUMFLEX, -ASA ,BRILANTA ,STATIN 8.HTN -BP STABLE 7.SYSTOLIC HEART FAILURE -COMPENSATED - EF 45% at 1422 RPT #:[id number] OF REPORTPRProgress Pkku4194-87-73A93:06:00G.[id number] for patient xmgbUVNHSBAEMARBCM8678-77-12R71:22:18 [facility] 2019-06-16 14:06:00 [id number]:06:00 H [facility])Internal Medicine Prog. NoteREPORT#:[id number] REPORT STATUS: SignedDATE:06/16/19 TIME: 1406 PATIENT: DUSTY FRANCOIS UNIT #: [id number]#: [id number] [address] [birth year] AGE: 58 SEX: M ATTEND: Kyung Bedoya [facility] AUTHOR: Kyung Bedoya MD * ALL edits or amendments must be made on the electronic/computer document * See AddendumSubjectiveChief Complaint:FEELING LITTLE BETETRNO DISTRESSNO PAIN Review of SystemsConstitutional:Reports: generalized weakness. Skin:Denies: abrasion, bruising, contusion, diaphoresis, ecchymosis, itching, laceration, rash, swelling, other. Allergy/Immun:Denies: allergic reaction, anaphylaxis, hives, itching, rhinorrhea, sneezing, other. Eyes:Denies: redness, discharge, visual loss/blurred, itching, diplopia, eye pain, photophobia, swelling, other. Respiratory:Denies: SORIANO (dyspnea on exertion), hemoptysis, non productive cough, parox nocturnal dyspnea, pleurisy, pleuritic pain, pneumonia, productive cough (sputum), SOB, wheezing, other. Cardiovascular:Denies: chest pain, SORIANO (dyspnea on exertion), edema, orthopnea, palpitations, parox nocturnal dyspnea, other. GI:Denies: abdominal pain, anorexia, constipation, diarrhea, dysphagia, GERD, hematemesis, hematochezia, hiatal hernia, melena, nausea, rectal pain, vomiting,other. Musculoskeletal:Reports: myalgias. Neuro:Reports: weakness. Objective GeneralVS/I O:Vital SignsDate Temp Pulse Resp B/P B/P Mean Pulse Ox GzM552/-06/16 97.7-99.3 76-81 15-18 115-150/73-90 86.8-109.9 93-98 28 Last Documented: Result Date Time Pulse Ox 95 08 1155 B/P 131/81 06/16 1155 B/P Mean 97.5 / 1155 O2 Delivery Room air 06/16 1155 Temp 99.3 / 1155 Pulse 81 06/16 1155 Resp 15 06/16 1155 O2 Flow Rate 2.387831 06/16 0840 FiO2 28 06/15 2035 24 hour I O ending at 0700: 06/16 0700 06/15 1900 Intake Total 360 Output Total 100 Balance 260 Intake, Oral 360 Number Voids 1 Output, Urine 100 Patient 92.6 kg Weight Weight Bed scale Measurement Method Patient Weight Weight (lb): 204Weight (oz): 2.37Weight (kg): 92.600 Medications:Active Meds + DC'd Last 24 HrsErgocalciferol 50,000 INTL.UNITS Q7D PO (CKD) Amlodipine Besylate 10 MG DAILY PO Aspirin 81 MG DAILY PO Furosemide 40 MG DAILY IV (DC) Furosemide 40 MG Q12H IV Atorvastatin Calcium 80 MG DAILY 1700 PO Acetaminophen 650 MG Q4H PRN PRN PO Hydrocodone Bitart/Acetaminophen 1 TAB Q6H PRN PRN PO Ondansetron HCl 4 MG Q4H PRN PRN IV Potassium Chloride 40 MEQ DAILY PRN PRN PO Insulin Glargine 10 UNIT Q12HR SUBQ Metoprolol Succinate 75 MG BID PO Ticagrelor 90 MG BID PO Hydrocodone Bitart/Acetaminophen 1 TAB Q6H PRN PRN PO Hydralazine HCl 10 MG Q2H PRN PRN IV (DC) Hydrocodone Bitart/Acetaminophen 1 TAB Q4H PRN PRN PO (DC) Morphine Sulfate 4 MG Q4H PRN PRN IV (DC) Ondansetron HCl 4 MG Q6H PRN PRN IV (DC) Sodium Chloride 0 ASDIR PRN IV (DC) Physical ExamGeneral appearance: alert, awake, orientedHead/Eyes: atraumatic, EOMI, normal conjunctiva/scleraENT: moist mucosal membranesBreast: no massCardiovascular: normal capillary refill, normal heart sounds, regular rate rhythmRespiratory: aerating well, clear to auscultationAbdomen: non-tender, normal bowel sounds, soft, no distention ResultsFindings/Data:Laboratory Tests 06/16/19 0420:[Embedded Image Not Available]Laboratory Tests 06/16 06/16 06/15 0838 0420 2116 Chemistry Sodium (134 - 147 mEq/L) 140 Potassium (3.4 - 5.0 mEq/L) 4.4 Chloride (100 - 108 mEq/L) 109 H Carbon Dioxide (21 - 33 mEq/L) 26 Anion Gap (0 - 20) 9 BUN (7 - 18 mg/dL) 34 H Creatinine (0.6 - 1.3 mg/dL) 1.9 H Glomerular Filtr Rate (90 - 95) 44.6 L Glucose (70 - 110 mg/dL) 129 H POC Glucose (70 - 110 MG/DL) 119 H 155 H Calcium (8.0 - 10.5 mg/dL) 8.6 Phosphorus (2.5 - 4.9 mg/dL) 3.5 Magnesium (1.8 - 2.4 mg/dL) 2.30 Laboratory Tests 06/16 0420 Hematology WBC (4.5 - 11.0 x10 3/uL) 9.51 RBC (4.00 - 5.60 x10 6/uL) 2.75 L Hgb (12.5 - 16.9 g/dL) 7.4 L Hct (37.5 - 50.7 %) 23.9 L MCV (81.0 - 99.0 fL) 86.9 MCH (27.0 - 33.0 pg) 26.9 L MCHC (33.0 - 37.0 g/dL) 31.0 L RDW (11.5 - 14.5 %) 13.9 Plt Count (150 - 400 x10 3/uL) 465 H MPV (7.0 - 9.0 fL) 9.6 H Neut % (Auto) (56.0 - 77.0 %) 68.5 Lymph % (Auto) (14.0 - 32.0 %) 17.8 [place] % (Auto) (4.8 - 9.0 %) 8.9 Eos % (Auto) (0.3 - 3.7 %) 4.2 H Baso % (Auto) (0.0 - 2.0 %) 0.2 Neut # (Auto) (2.0 - 7.6 x10 3/uL) 6.51 Lymph # (Auto) (1.0 - 3.8 x10 3/uL) 1.69 Highland # (Auto) (0.1 - 0.8 x10 3/uL) 0.85 H Eos # (Auto) (0.0 - 0.2 x10 3/uL) 0.40 H Baso # (Auto) (0.0 - 0.2 x10 3/uL) 0.02 Abs Immat Gran (auto) (0.00 - 0.03 x10 3/uL) 0.04 H Add Manual Diff NO Immature Gran % (0.0 - 2.0 %) 0.4 Nucleated RBC % (0 - 0 %) 0.0 Nucleated RBCs # (Man) (0.0 - 0.1 x10 3/uL) 0.00 Diagnosis, Assessment PlanOrders: Procedure Date/time Status TRANSPORT REQUEST 06/16 1430 Active PHOSPHOROUS 06/16 042 Complete MAGNESIUM 06/16 0420 Complete OXYGEN PER HOUR 08/02 0234 Active Consultants: cardiology, pulmonaryCode status: full code Free Text DxA P NotesFree Text DxA P Notes:1.DYSPNEA - MULTIFACTORIAL - PNA /EFFUSION /ANEMIA 2. HCAP -S/P ANTIBIOTICS - NO SIGNS OF INFECTION NOW - PULMO FU 3.PLEURAL EEFFUSION -S/P THORACOCETESIS - 4, ABNORMAL CT CHEST -PULMO FU , MAY NEED BRONCHOSCOPE 5. DM -BS FAIR 6.ANEMIA -WILL TRANSFUSE IF HB DROPS < 7 ,MONITOR 7 RECENT MN - PCI TO LAD, CIRCUMFLEX, -ASA ,BRILANTA ,STATIN 8.HTN -BP STABLE 7.SYSTOLIC HEART FAILURE -COMPENSATED - EF 45% at 1422 Addendum 1: 06/16/19 1422 by Kyung Bedoya MD CKD - NEPHROLOGY FU at 1422 RPT #:[id number] OF REPORTPRProgress Pfyw1424-57-44V89:06:00G.[id number] le for patient qerzXDIXAGBTKRZGWR9514-98-98B75:22:48 [facility] 2019-06-16 11:43:00 [id number]:43:00 H [place] [facility] ([facility])Cardiology Progress NoteREPORT#:[id number] REPORT STATUS: SignedDATE:06/16/19 TIME: 1143 PATIENT: DUSTY FRANCOIS UNIT #: [id number]#: [id number] [address] [birth year] AGE: 58 SEX: M ATTEND: Kyung Bedoya AUTHOR: Nicole Shay NP * ALL edits or amendments must be made on the electronic/computer document * SubjectiveChief Complaint:breathing has improved Objective GeneralVS/I O:Laboratory Tests 06/16/19 0420:[Embedded Image Not Available] 06/15/19 0354:[Embedded Image Not Available] 06/15/19 0312:[Embedded Image Not Available]Current Medications Sig/Jean Carlos Start time LastMedication Dose Route Stop Time Status AdminErgocalciferol 50,000 INTL.UNITS Q7D 06/18 09 CKD PO 07/18 0859Amlodipine Besylate 10 MG DAILY 06/16 900 AC 06/16 PO 07/16 0859 0844Aspirin 81 MG DAILY 06/16 900 AC 06/16 PO 07/16 0859 0844Furosemide 40 MG DAILY 06/16 900 DC IV 07/16 0859Furosemide 40 MG Q12H 06/16 0845 AC 06/16 IV 07/16 0838 0844Atorvastatin 80 MG DAILY 1700 06/15 1700 AC 06/15Calcium PO 07/15 1659 1648Acetaminophen 650 MG Q4H PRN PRN 06/15 1200 AC PO 07/15 1159Hydrocodone Bitart/ 1 TAB Q6H PRN PRN 06/15 1200 ACAcetaminophen PO 07/15 1159Ondansetron HCl 4 MG Q4H PRN PRN 06/15 1200 AC IV 07/15 1159Potassium Chloride 40 MEQ DAILY PRN PRN 06/15 1200 AC PO 07/15 1159Insulin Glargine 10 UNIT Q12HR 06/15 1145 AC 06/16 SUBQ 07/15 1139 0839Metoprolol 75 MG BID 06/15 1145 AC 06/16Succinate PO 07/15 1140 0839Ticagrelor 90 MG BID 06/15 1145 AC 06/16 PO 07/15 1139 0844Hydrocodone Bitart/ 1 TAB Q6H PRN PRN 06/15 1030 ACAcetaminophen PO 07/15 1029Hydralazine HCl 10 MG Q2H PRN PRN 06/15 0415 DC IV 06/16 0309Hydrocodone Bitart/ 1 TAB Q4H PRN PRN 06/15 0415 DCAcetaminophen PO 06/16 0309Morphine Sulfate 4 MG Q4H PRN PRN 06/15 0415 DC IV 06/16 0309Ondansetron HCl 4 MG Q6H PRN PRN 06/15 0415 DC IV 06/16 0309Sodium Chloride 0 ASDIR PRN 06/15 0300 DC IV 06/16 0156 24 hour I O ending at 0700: 06/16 0700 06/15 1900 Intake Total 360 Output Total 100 Balance 260 Intake, Oral 360 Number Voids 1 Output, Urine 100 Patient 92.6 kg Weight Weight Bed scale Measurement Method Vital Signs: Date Time Temp Pulse Resp B/P B/P Pulse O2 O2 Flow FiO2 Mean Ox Delivery Rate 06/16 1155 37.4 81 15 131/81 97.5 95 Room air 06/16 0840 Nasal 2.116917 cannula 06/16 0750 36.7 76 17 148/83 104.8 93 Room air 06/16 0413 36.8 79 18 129/80 96.4 94 Nasal cannula 06/15 2234 37.0 78 18 115/73 86.8 94 Nasal cannula 06/15 2120 Nasal 2.917729 cannula 06/15 2035 96 Nasal 2.370474 28 cannula 06/15 1932 36.5 80 18 150/86 107.7 97 Nasal cannula 06/15 1630 36.8 78 17 150/90 109.9 98 Nasal cannula 06/15 1615 Nasal 2.768684 cannula Patient Weight Weight (lb): 204Weight (oz): 2.37Weight (kg): 92.600 Physical ExamGeneral appearance: alert, awake, oriented, no acute distress, pleasantHead/Eyes: atraumaticENT: moist mucosal membranesNeck: full range of motionCardiovascular: CV assessment: regular rate and rhythmRespiratory: decreased breath sounds, no distressAbdomen: softLower extremity: LE assessment: edemaNeuro/VACUUM FILTER OPERATOR: alert, oriented X 3 Diagnosis, Assessment Plan Free Text DxA P NotesFree Text DxA P Notes:1. Mildly increased troponin. No new MN, trending down from prior/recent MIcontinue meds : brilina, asa, statin, bb 2. Dyspnea - multifacorial 3. Large Pleural Effusion- rightthoracentesis planned for today 4. Possible Community acquired PNA 5. Recent CVA 6. BRENDA/ CKD 7. Fluid overload continue diuretics. 8. CAD s/p recent NSTEMI s/p PCI/stenting to LAD CIRcontinue medical management at 1359 RPT #:[id number] OF REPORTPRProgress Htur1829-40-81I26:43:00G.[id number] le for patient silqGKFISQIDKXZAKV3556-84-42L92:59:29 [facility] 2019-06-16 11:43:00 [id number]:43:00 [facility] [place] [facility] ([facility])Cardiology Progress NoteREPORT#:[id number] REPORT STATUS: SignedDATE:06/16/19 TIME: 1143 PATIENT: DUSTY FRANCOIS UNIT #: [id number]#: [id number] [address] [birth year] AGE: 58 SEX: M ATTEND: Kyung Bedoya [facility] AUTHOR: Nicole Shay NP * ALL edits or amendments must be made on the electronic/computer document * SubjectiveChief Complaint:breathing has improved Objective GeneralVS/I O:Laboratory Tests 06/16/19 0420:[Embedded Image Not Available] 06/15/19 0354:[Embedded Image Not Available] 06/15/19 0312:[Embedded Image Not Available]Current Medications Sig/Jean Carlos Start time LastMedication Dose Route Stop Time Status AdminErgocalciferol 50,000 INTL.UNITS Q7D 06/18 09 CKD PO 07/18 0859Amlodipine Besylate 10 MG DAILY 06/16 09 AC 06/16 PO 07/16 0859 0844Aspirin 81 MG DAILY 06/16 0900 AC 06/16 PO 07/16 0859 0844Furosemide 40 MG DAILY 06/16 0900 DC IV 07/16 0859Furosemide 40 MG Q12H 06/16 0845 AC 06/16 IV 07/16 0838 0844Atorvastatin 80 MG DAILY 1700 06/15 1700 AC 06/15Calcium PO 07/15 1659 1648Acetaminophen 650 MG Q4H PRN PRN 06/15 1200 AC PO 07/15 1159Hydrocodone Bitart/ 1 TAB Q6H PRN PRN 06/15 1200 ACAcetaminophen PO 07/15 1159Ondansetron HCl 4 MG Q4H PRN PRN 06/15 1200 AC IV 07/15 1159Potassium Chloride 40 MEQ DAILY PRN PRN 06/15 1200 AC PO 07/15 1159Insulin Glargine 10 UNIT Q12HR 06/15 1145 AC 06/16 SUBQ 07/15 1139 0839Metoprolol 75 MG BID 06/15 1145 AC 06/16Succinate PO 07/15 1140 0839Ticagrelor 90 MG BID 06/15 1145 AC 06/16 PO 07/15 1139 0844Hydrocodone Bitart/ 1 TAB Q6H PRN PRN 06/15 1030 ACAcetaminophen PO 07/15 1029Hydralazine HCl 10 MG Q2H PRN PRN 06/15 0415 DC IV 06/16 0309Hydrocodone Bitart/ 1 TAB Q4H PRN PRN 06/15 0415 DCAcetaminophen PO 06/16 0309Morphine Sulfate 4 MG Q4H PRN PRN 06/15 0415 DC IV 06/16 0309Ondansetron HCl 4 MG Q6H PRN PRN 06/15 0415 DC IV 06/16 0309Sodium Chloride 0 ASDIR PRN 06/15 0300 DC IV 06/16 0156 24 hour I O ending at 0700: 06/16 0700 06/15 1900 Intake Total 360 Output Total 100 Balance 260 Intake, Oral 360 Number Voids 1 Output, Urine 100 Patient 92.6 kg Weight Weight Bed scale Measurement Method Vital Signs: Date Time Temp Pulse Resp B/P B/P Pulse O2 O2 Flow FiO2 Mean Ox Delivery Rate 06/16 1155 37.4 81 15 131/81 97.5 95 Room air 06/16 0840 Nasal 2.917503 cannula 06/16 0750 36.7 76 17 148/83 104.8 93 Room air 06/16 0413 36.8 79 18 129/80 96.4 94 Nasal cannula 06/15 2234 37.0 78 18 115/73 86.8 94 Nasal cannula 06/150 Nasal 2.661058 cannula 06/15 2035 96 Nasal 2.623389 28 cannula 06/15 1932 36.5 80 18 150/86 107.7 97 Nasal cannula 06/15 1630 36.8 78 17 150/90 109.9 98 Nasal cannula 06/15 1615 Nasal 2.833122 cannula Patient Weight Weight (lb): 204Weight (oz): 2.37Weight (kg): 92.600 Physical ExamGeneral appearance: alert, awake, oriented, no acute distress, pleasantHead/Eyes: atraumaticENT: moist mucosal membranesNeck: full range of motionCardiovascular: CV assessment: regular rate and rhythmRespiratory: decreased breath sounds, no distressAbdomen: softLower extremity: LE assessment: edemaNeuro/VACUUM FILTER OPERATOR: alert, oriented X 3 Diagnosis, Assessment Plan Free Text DxA P NotesFree Text DxA P Notes:1. Mildly increased troponin. No new MN, trending down from prior/recent MIcontinue meds : brilina, asa, statin, bb 2. Dyspnea - multifacorial 3. Large Pleural Effusion- rightthoracentesis planned for today 4. Possible Community acquired PNA 5. Recent CVA 6. BRENDA/ CKD 7. Fluid overload continue diuretics. 8. CAD s/p recent NSTEMI s/p PCI/stenting to LAD CIRcontinue medical management at 1359 at 1927 RPT #:[id number] OF REPORTPRProgress Ujue1708-57-16T75:43:00G.[id number] le for patient fntoJXMITRRDLFDKCU3615-34-56K21:28:05 [facility] 2019-06-16 10:47:00 [id number]:47:00 [facility] [place] [facility] ([facility])Clinical NoteREPORT#:[id number] REPORT STATUS: SignedDATE:06/16/19 TIME: 1047 PATIENT: DUSTY FRANCOIS UNIT #: [id number]#: [id number] ROOM/BED: [facility]-1DOB: [birth year] AGE: 58 SEX: M ATTEND: Kyung Bedoya [facility] AUTHOR: Koko Chung NP * ALL edits or amendments must be made on the electronic/computer document * Clinical NoteNote:Pulmonary Consult # [id number] at 1047 RPT #:[id number] OF REPORTCLClinical [id number]:47:00G.[id number] le for patient pwfhIPEROFNVRYLJPN5459-37-79B26:48:09 [facility] 2019-06-16 10:47:00 [id number]:47:00 [facility] [place] [facility] ([facility])Clinical NoteREPORT#:[id number] REPORT STATUS: SignedDATE:06/16/19 TIME: 104 PATIENT: DUSTY FRANCOIS UNIT #: [id number]#: [id number] [address] [birth year] AGE: 58 SEX: M ATTEND: Kyung Bedoya [facility] AUTHOR: Koko Chung MEDICATION ADMINISTRATION PROFESSIONAL * ALL edits or amendments must be made on the electronic/computer document * Koko Chung 06/16/19 1047:Clinical NoteNote:Pulmonary Consult # [id number] Antoine Lee 06/16/19 1544:Clinical NoteNote:Agree with the findings and plan as documented by MEDICATION ADMINISTRATION PROFESSIONAL as above reviewedpt seen and examineddw RN at 1047 at 1544 RPT #:[id number] OF REPORTCLClinical [id number]:47:00G.[id number] le for patient fspsFGSFFYPRQEPPIC3105-03-95Z28:44:29 [facility] 2019-06-16 10:47:00 [id number]:47:0008 -01[address] [place] [address] PATIENT NAME: DUSTY FRANCOIS ADMIT DATE: 06/15/19ACCOUNT NO: [id number] ROOM NO: G.4417 AGE: 58 REPORT TYPE: CONSULTATION REPORT SEX: M ADMITTING PHYSICIAN:Kyung Bedoya MD ATTENDING PHYSICIAN:Kyung Bedoya MD CONSULTATION DATE: CONSULTING PHYSICIAN: Antoine Lee MD PULMONARY CONSULTATION CHIEF COMPLAINT: Shortness of breath and low oxygen saturation. REQUESTING PHYSICIAN: Kyung Bedoya MD HISTORY OF PRESENT ILLNESS: This is a 58-year-old male with a past medicalhistory of coronary artery syndrome, diabetes, hypertension, TIA,hyperlipidemia, recently discharged from the hospital after had a PCI tocircumflex and LAD, treated for hospital-acquired pneumonia, discharged home onp.o. antibiotic. He said he was initially fine, but then his oxygen saturationdropped to 88% on room air and he was having shortness of breath. He said hewas struggling for catching breath. He came to the Emergency Room for furtherevaluation. In the ER, the patient had a workup and his troponin was 1.770. His BNP was 630. His urinalysis was unremarkable. His hemoglobin is 7.4 thismorning. Currently, the patient is awake, alert, and oriented x3, followingcommands. His CT of chest revealed large right pleural effusion andground-glass opacity in the bilateral upper lobe, suspecting the pneumoniaversus pulmonary edema. The patient is still on 3 L nasal cannula. He deniesany nausea, vomiting, diarrhea, or constipation, but complaining about theshortness of breath with exertion. ALLERGIES: NO KNOWN ALLERGIES. PAST MEDICAL HISTORY: Coronary artery disease with stent on LAD and circumflex,diabetes type 2, hypertension, and hyperlipidemia. PAST SURGICAL HISTORY: PCI to LAD and circumflex. FAMILY HISTORY: Noncontributory to illness. SOCIAL HISTORY: Denies any alcohol or use of illicit drugs, but smoker. MEDICATIONS: Per MAR. REVIEW OF SYSTEMS: All 14 points system reviewed, pertinent positives andnegatives are listed in the HPI as above, otherwise negative. PHYSICAL EXAMINATION: PATIENT NAME: DUSTY FRANCOIS [id number] [place] [id number] PATIENT NAME: DUSTY FRANCOIS ADMIT DATE: 06/15/19ACCOUNT NO: [id number] ROOM NO: [facility] AGE: 58 REPORT TYPE: CONSULTATION REPORT SEX: M ADMITTING PHYSICIAN:Kyung Bedoya MD ATTENDING PHYSICIAN:Kyung Bedoya MD GENERAL: The patient is awake, alert, and oriented, following commands.VITAL SIGNS: Blood pressure is 148/83, pulse is 76, temperature is 36.7, andoxygen saturation 93% on 3 L nasal cannula.HEENT: Normocephalic and atraumatic. PERRLA.NECK: Supple. No JVD.CARDIOVASCULAR: Tachycardic, S1 and S2 present.RESPIRATORY: The patient is on 3 L nasal cannula, shortness of breath withexertion. Crackles noted on the right side. Mild respiratory distress.GASTROINTESTINAL: Abdomen is soft, round, and nontender. Bowel sounds arepresent.GENITOURINARY: Able to void.MUSCULOSKELETAL: No signs of clubbing or cyanosis.ENDOCRINE: Stable.PSYCHIATRIC: Stable.SKIN: No signs of bruising, bleeding, erythema, or rash. LABORATORY DATA: WBC 9.51, RBC 2.75, hemoglobin 7.4, hematocrit is 23.9, andplatelets 465. Chemistry; sodium is 140, potassium 4.4, chloride 109, carbondioxide 26, anion gap is 9, BUN is 34, creatinine is 1.9, and glucose is 129. Lactic acid is 1.0, calcium is 8.6, phosphorus 3.5, and magnesium is 2.30. Total bilirubin 0.10, direct bilirubin less than 0.10, and indirect 0. AST 61,ALT 45, alkaline phosphatase is 53, total protein 6.2, albumin 1.80, lipase is55. Coagulation study; INR 1.1, PTT 30.3, and PT 12.3. IMAGING STUDIES: CT of chest shows large pleural effusion on the right sidethan the left and ground-glass opacity on bilateral lobe, suspecting thepneumonia versus pulmonary edema. ASSESSMENT:1. Acute hypoxic respiratory failure secondary to large pleural effusion on theright side.2. Large pleural effusion on the right side.3. Hypoxia secondary to large pleural effusion and possible pneumonia.4. Possible pneumonia, hospital-acquired pneumonia.5. History of coronary artery disease, status post stenting on the leftanterior descending and circumflex.6. History of diabetes type 2.7. History of hyperlipidemia.8. Smoker. PLAN:1. Admit to the floor.2. IV Lasix 40 mg twice a day. PATIENT NAME: DUSTY FRANCOIS [id number] [address] PATIENT NAME: DUSTY FRANCOIS ADMIT DATE: 06/15/19ACCOUNT NO: [id number] ROOM NO: G.4417 AGE: 58 REPORT TYPE: CONSULTATION REPORT SEX: M ADMITTING PHYSICIAN:Kyung Bedoya MD ATTENDING PHYSICIAN:Kyung Bedoya MD 3. Continue Brilinta, aspirin, statin, and beta-jose enrique.4. Monitor for heart rate and blood pressure.5. Aggressive pulmonary toilet including incentive spirometry, oxygen support,and nebulizer treatment.6. Glycemic control, Accu-Chek a.c. and at bedside, sliding scale.7. Ultrasound-guided thoracentesis to remove the pleural effusion and pleuralfluid workup.8. Monitor. After assessment, we discussed the plan with the patient at the bedside andanswered all his questions and concerns. Dictated By: Koko Chung NP for Antoine Lee MD WT: CON:G.RAMON/LIZBETH-WILLIAM/NTSDD: 06/16/2019 10:47:34DT: 06/16/2019 12:39:31Conf#: [id number]/DID#: [id number] Authenticated by Koko Chung On 06/19/2019 02:07:02 PM Authenticated by Antoine Lee MD On 06/23/2019 09:50:47 AM at 950 at 51 PATIENT NAME: DUSTY FRANCOIS :39:00[facility] [id number] for patient ktwhFCUHYFZGWQKHFA9950-20-34J08:51:22 [facility] 2019-06-16 06:22:00 [id number]:22:00 [facility] Progress NoteREPORT#:[id number] REPORT STATUS: SignedDATE:06/16/19 TIME: 621 PATIENT: DUSTY FRANCOIS UNIT #: [id number]#: [id number] [address] [birth year] AGE: 58 SEX: M ATTEND: Kyung Bedoya [facility] AUTHOR: Gideon Teran MD * ALL edits or amendments must be made on the electronic/computer document * SubjectiveChief Complaint:SOB/Elevated CreatPatient reports:Yes: complaints. Comments:Patient seen and evaluated, discussed with care team, came back to the ED due toSOB after discharge, his BNP and troponin are elevated , Creat 2,3 Review of SystemsConstitutional:Yes fatigue, No chills, No feverSkin:Yes swellingAllergy/Immun:No hives, No itchingEyes:No redness, No dischargeENT:No ear drainage, No ear ringingRespiratory:Yes SORIANO (dyspnea on exertion), No wheezingCardiovascular:No chest pain Objective GeneralVS/I O:Vital Signs: Date Time Temp Pulse Resp B/P B/P Pulse O2 O2 Flow FiO2 Mean Ox Delivery Rate 06/16 0413 36.8 79 18 129/80 96.4 94 Nasal cannula 06/15 2234 37.0 78 18 115/73 86.8 94 Nasal cannula 06/15 2120 Nasal 2.101414 cannula 06/15 2035 96 Nasal 2.661433 28 cannula 06/15 1932 36.5 80 18 150/86 107.7 97 Nasal cannula 06/15 1630 36.8 78 17 150/90 109.9 98 Nasal cannula 06/15 1615 Nasal 2.278960 cannula 06/15 1318 81 17 145/84 104 94 Nasal 3.260770 cannula 06/15 1200 76 16 117/70 85 98 06/15 0921 74 18 142/81 101 99 06/15 0830 Nasal 2.142875 cannula 06/15 0647 57 17 157/92 113 94 Nasal 3.079967 cannula 24 hour I O ending at 0700: 06/16 0700 06/15 1900 Intake Total 360 Output Total 100 Balance 260 Intake, Oral 360 Number Voids 1 Output, Urine 100 Patient 92.6 kg Weight Weight Bed scale Measurement Method MedicationsActive Meds + DC'd Last 24 HrsErgocalciferol 50,000 INTL.UNITS Q7D PO (CKD) Amlodipine Besylate 10 MG DAILY PO Aspirin 81 MG DAILY PO Furosemide 40 MG DAILY IV Insulin Glargine 10 UNIT Q12HR SUBQ (DC) Metoprolol Succinate 75 MG BID PO (DC) Ticagrelor 90 MG BID PO (DC) Atorvastatin Calcium 80 MG DAILY 1700 PO (DC) Atorvastatin Calcium 80 MG DAILY 1700 PO Acetaminophen 650 MG Q4H PRN PRN PO Hydrocodone Bitart/Acetaminophen 1 TAB Q6H PRN PRN PO Ondansetron HCl 4 MG Q4H PRN PRN IV Potassium Chloride 40 MEQ DAILY PRN PRN PO Insulin Glargine 10 UNIT Q12HR SUBQ Metoprolol Succinate 75 MG BID PO Ticagrelor 90 MG BID PO Hydrocodone Bitart/Acetaminophen 1 TAB Q6H PRN PRN PO Hydralazine HCl 10 MG Q2H PRN PRN IV (DC) Hydrocodone Bitart/Acetaminophen 1 TAB Q4H PRN PRN PO (DC) Morphine Sulfate 4 MG Q4H PRN PRN IV (DC) Ondansetron HCl 4 MG Q6H PRN PRN IV (DC) Sodium Chloride 0 ASDIR PRN IV (DC) Physical ExamGeneral appearance: alert, no acute distressHead/eyes: atraumatic, normocephalicENT: moist mucous membranes, normal noseNeck: supple/no meningismusCardiovascular: normal heart sounds, no rubRespiratory: aerating well, no distressAbdomen: non-tender, softGenitourinary: no flank pain, no foleyExtremities: pitting edema, non-tenderMusculoskeletal: no CVA tenderness, no tenderenessNeuro/VACUUM FILTER OPERATOR: alert, normal speechSkin: dry, intact ResultsFindings/Data:Laboratory Tests 06/15 425 Blood Gas Puncture Site R Rad ABG pH (7.35 - 7.45) 7.408 ABG pCO2 (35 - 45 mmHg) 35.7 ABG pO2 (80 - 100 mmHg) 71 L ABG HCO3 (22.0 - 26.0 mmol/L) 22.5 ABG Total CO2 24 ABG O2 Saturation (90 - 100 %) 94 ABG Base Excess (-4 - 4 mmol/L) -2.0 Temperature (F) 98.6 O2 Delivery Device Cannula Laboratory Tests 06/15 06/15 06/15 06/15 2116 0829 0556 0556 Chemistry POC Glucose (70 - 110 MG/DL) 155 H Troponin I (0.000 - 0.045 ng/mL) 1.770 *H 1.990 *H LDL Cholesterol Measurd (0 - 100 mg/dL) 71 06/15 06/15 06/15 06/15 0422 0354 0312 0312Chemistry POC Sodium (134 - 147 MMOL/L) 138 POC Potassium (3.4 - 5.0 MMOL/L) 4.5 POC Chloride (100 - 108 MMOL/L) 105 Carbon Dioxide (21 - 33 mmol/L) 24.0 POC BUN (7 - 18 MG/DL) 30 H POC Creatinine (0.6 - 1.3 MG/DL) 2.3 H Estimated GFR (MDRD) (ML/MIN) 38 POC Glucose (70 - 110 MG/DL) 89 POC Ioniz Calcium Arley (1.12 - 1.32 MG/DL) 1.17 Magnesium (1.8 - 2.4 mg/dL) 2.10 Total Bilirubin (0.0 - 1.0 mg/dL) 0.10 Direct Bilirubin (0.0 - 0.30 MG/DL) < 0.10 Indirect Bilirubin (MG/DL) 0.00 AST (15 - 37 IUnit/L) 61 H ALT (15 - 65 IUnit/L) 45 Total Alk Phosphatase (20 - 125 IUnit/L) 53 B-Natriuretic Peptide (0 - 100 PG/ML) 630.4 H Total Protein (6.4 - 8.2 g/dL) 6.2 L Albumin (3.4 - 5.0 g/dL) 1.80 L Lipase (73 - 393 IUnit/L) 55 L Procalcitonin (0.00 - 0.05 ng/mL) 0.15 H 06/150 0309 Chemistry Lactic Acid (0.90 - 1.70 MMOL/L) 1.0 Rapid Troponin I (0.00 - 0.08 ng/mL) 1.21 *H Laboratory Tests 06/152 Coagulation INR (0.8 - 1.2) 1.1 PTT (Abiola) (25.0 - 39.5 Seconds) 30.3 PT Patient/Control Mix (9.3 - 12.9 SECONDS) 12.3 Laboratory Tests 06/15 312 Hematology WBC (4.5 - 11.0 x10 3/uL) 10.52 RBC (4.00 - 5.60 x10 6/uL) 2.94 L Hgb (12.5 - 16.9 g/dL) 7.8 L Hct (37.5 - 50.7 %) 25.0 L MCV (81.0 - 99.0 fL) 85.0 MCH (27.0 - 33.0 pg) 26.5 L MCHC (33.0 - 37.0 g/dL) 31.2 L RDW (11.5 - 14.5 %) 13.6 Plt Count (150 - 400 x10 3/uL) 509 H MPV (7.0 - 9.0 fL) 9.6 H Neut % (Auto) (56.0 - 77.0 %) 70.4 Lymph % (Auto) (14.0 - 32.0 %) 15.9 Highland % (Auto) (4.8 - 9.0 %) 8.4 Eos % (Auto) (0.3 - 3.7 %) 4.5 H Baso % (Auto) (0.0 - 2.0 %) 0.2 Neut # (Auto) (2.0 - 7.6 x10 3/uL) 7.42 Lymph # (Auto) (1.0 - 3.8 x10 3/uL) 1.67 Highland # (Auto) (0.1 - 0.8 x10 3/uL) 0.88 H Eos # (Auto) (0.0 - 0.2 x10 3/uL) 0.47 H Baso # (Auto) (0.0 - 0.2 x10 3/uL) 0.02 Abs Immat Gran (auto) (0.00 - 0.03 x10 3/uL) 0.06 H Add Manual Diff NO Immature Gran % (0.0 - 2.0 %) 0.6 Nucleated RBC % (0 - 0 %) 0.0 Nucleated RBCs # (Man) (0.0 - 0.1 x10 3/uL) 0.00 Laboratory Tests 06/15 06 Urines Urine Color (YEL/STRAW) YELLOW Urine Appearance (CLEAR) SL CLOUDY Urine pH (5.0 - 7.0) 5.0 Ur Specific Center Line (1.005 - 1.030) 1.015 Urine Protein (NEGATIVE) 2+ H Urine Glucose (UA) (NEGATIVE) NEGATIVE Urine Ketones (NEGATIVE) NEGATIVE Urine Blood (NEGATIVE) 2+ H Urine Nitrite (NEGATIVE) NEGATIVE Urine Bilirubin (NEGATIVE) NEGATIVE Urine Urobilinogen (0.2 - 1.0 mg/dL) 0.2 Ur Leukocyte Esterase (NEGATIVE) NEGATIVE Urine RBC (0 - 3 RBC/HPF) 0-3 Urine WBC (0 - 3 WBC/HPF) 0-3 Ur Squamous Epith Cells (NONE SEEN /HPF) 0-5 Urine Bacteria (NONE SEEN /HPF) TRACE Hyaline Casts (NONE SEEN /LPF) 11-20 Urine Mucus (NONE SEEN /LPF) TRACE Recent Impressions:RADIOLOGY - XR CHEST 1 V 06/15 0341 Report Impression - Status: SIGNED Entered: 06/15/2019 0357 IMPRESSION:1. Right lung multifocal infiltrate with interval improvement in theright lower lobe infiltrate.2. Small right pleural effusion have improved. Probably trace leftpleural effusion. SL: [JSYED-H]Impression By: [email or web address] - Yakov Lemos M.D.CAT SCAN - CT CHEST W/O CONTRAST 06/15 1230 Report Impression - Status: SIGNED Entered: 06/15/2019 1404 IMPRESSION: 1. Large right pleural effusion and small left pleural effusion.2. Groundglass opacities in the bilateral upper lobes, representingpulmonary edema or atypical infection. SL: [id number] By: [email or web address] - Amadou Vizcaino M.D. Laboratory Tests 06/15 06/15 2116 0855 Chemistry POC Glucose (70 - 110 MG/DL) 155 H Troponin I (0.000 - 0.045 ng/mL) 1.770 *H Laboratory Tests 08/01 0630 Urines Urine Color (YEL/STRAW) YELLOW Urine Appearance (CLEAR) SL CLOUDY Urine pH (5.0 - 7.0) 5.0 Ur Specific Center Line (1.005 - 1.030) 1.015 Urine Protein (NEGATIVE) 2+ H Urine Glucose (UA) (NEGATIVE) NEGATIVE Urine Ketones (NEGATIVE) NEGATIVE Urine Blood (NEGATIVE) 2+ H Urine Nitrite (NEGATIVE) NEGATIVE Urine Bilirubin (NEGATIVE) NEGATIVE Urine Urobilinogen (0.2 - 1.0 mg/dL) 0.2 Ur Leukocyte Esterase (NEGATIVE) NEGATIVE Urine RBC (0 - 3 RBC/HPF) 0-3 Urine WBC (0 - 3 WBC/HPF) 0-3 Ur Squamous Epith Cells (NONE SEEN /HPF) 0-5 Urine Bacteria (NONE SEEN /HPF) TRACE Hyaline Casts (NONE SEEN /LPF) 11-20 Urine Mucus (NONE SEEN /LPF) TRACE Diagnosis, Assessment PlanFree Text A P:Patient seen and evaluated, discussed with care team, Images and laboratory reviewedHistory of HTN: metoprolol: Monitor BP closely and adjust medications as neededDM: insulin: Monitor BS closely and adjust medications as neededHLD: LipitorCAD s/p NSTEMI , s/p LHC and LAD/LCX PCI: ASA/TicagrelorPNA treated with Rocephin/AzithromaxSOB with elevated BNPRecent BRENDA felisha related to CINHis baseline creat 1.2 in Sep 2018, eGFR 80 , felisha had some progression since thenReturned to the ED yesterday with SON, elevated BNP and troponin , on Lasix , Cardiology consulted, Increase Lasix to BID , Creat better today 1.9 at 0839 RPT #:[id number] OF REPORTPRProgress [id number]:22:00G.[id number] anabelle for patient [id number]:39:33 [facility] 2019-06-15 19:38:00 [id number]:38:0008 [place] [id number] PATIENT NAME: DUSTY FRANCOIS ADMIT DATE: 06/15/19ACCOUNT NO: [id number] ROOM NO: [facility] AGE: 58 REPORT TYPE: eECHOCARDIOGRAM REPORT SEX: M ADMITTING PHYSICIAN:Kyung Bedoya MD ATTENDING PHYSICIAN:Kyung Bedoya MD Exam Date: 06/15/2019 15:02:00 Exam Type: Transthoracic Echocardiogram Indication:SOBRhythm: NSRBP: 145/84HR: 82 Measurements Name Value Normal Range IVSd (2D) 1.66 cm (0.6 - 1.1) LVPWd (2D) 1.71 cm (0.6 - 1.1) LVIDd (2D) 5.02 cm (3.5 - 5.6) LVIDs (2D) 3.62 cm (2.1 - 4) LV FS (2D) 27.92 % - EF Teichholz (2D) 53.83 % (50 - 90) Name Value Normal Range LV EDV SP 4CH (MOD) 103.95 ml - LV ESV SP 4CH (MOD) 46.34 ml - EF SP 4CH (MOD) 55.42 % - LV EDV SP 2CH (MOD) 77.23 ml - LV ESV SP 2CH (MOD) 31.74 ml - EF SP 2CH (MOD) 58.9 % - LV EDV BP 89.98 ml - LV ESV BP 39.04 ml - BP EF (MOD) 56.61 % - Findings Left Ventricle:Moderate concentric left ventricular hypertrophy is observed. Globalleft ventricular wall motion and contractility are within normal limits.The estimated ejection fraction is 40-45%. Pericardium:A trivial pericardial effusion is visualized. Conclusions1. Moderate concentric left ventricular hypertrophy is observed.2. The estimated ejection fraction is 40-45%.3. A trivial pericardial effusion is visualized.PATIENT NAME: DUSTY FRANCOIS at 1940 PATIENT NAME: DUSTY FRANCOIS .[id number] Available for patient [id number]:42:41 [facility] 2019-06-15 11:56:00 [id number]:56:0008 [place] [address] PATIENT NAME: DUSTY FRANCOIS ADMIT DATE: 06/15/19ACCOUNT NO: [id number] ROOM NO: G.4417 AGE: 58 REPORT TYPE: HISTORY AND PHYSICAL SEX: M ADMITTING PHYSICIAN:Kyung Bedoya MD ATTENDING PHYSICIAN:Kyung Bedoya MD ADMISSION DATE: 06/15/2019 CHIEF COMPLAINT: Short of breath started last night. HISTORY OF PRESENTING ILLNESS: This is a 58-year-old male, well known to me,discharged yesterday morning after the treatment of acute coronary syndrome withPCI to circumflex and LAD, hospital-acquired pneumonia, hypertension, diabetes,came to the emergency room electrical tester back with increasing short of breath. He says he was doing well few hours electrical tester, he woke up, he was not ableto breathe as usual, became more and more short of breath and came to theemergency room. His oxygen saturation 88% on room on presentation. Admittedfor further management. Troponins are elevated. He denies any chest pain orpalpitation. Denies any cough and sputum. Denies any abdominal pain, nausea,vomiting. The patient has 1+ extremity edema. Admitted for further workup ofdyspnea, rule out pneumonia, rule out CHF. PAST MEDICAL HISTORY: Recent acute coronary syndrome, diabetes, hypertension,TIAs, hypercholesterolemia. PAST SURGICAL HISTORY: Recent PCI to LAD and circumflex. ALLERGIES: NO KNOWN ALLERGIES. HOME MEDICATIONS: Brilinta, atorvastatin, metoprolol, amlodipine, aspirin. SOCIAL HISTORY: Smoker. No alcohol. No illicit drug use. FAMILY HISTORY: Brother had premature coronary artery disease. SYSTEM REVIEW: Fourteen-point comprehensive systems review was done. Apartfrom symptoms mentioned in the history of presenting illness, otherwisenegative. PHYSICAL EXAMINATION:VITAL SIGNS: Temperature 97.8, pulse 74, blood pressure 142/81.GENERAL: Middle-aged male, mildly short of breath. No acute distress. Afebrile.HEENT: Pupils equally reactive.NECK: Supple.CARDIOVASCULAR: S1 and S2 regular.RESPIRATORY: Bilaterally good air entry. Basal crackles present.ABDOMEN: Soft and nontender.EXTREMITIES: 2+ edema. PATIENT NAME: DUSTY FRANCOIS CENTRAL NERVOUS SYSTEM: Alert, awake, oriented to time, place, and person. DIAGNOSTIC DATA: The pH 7.4, pCO2 35, pO2 71 on nasal cannula 4 liters,bicarbonate 22.5, total protein 6.2. Total bili 0.1. LFTs within normal limit. Magnesium 2.1. BNP 630. Urinalysis, no infection. Peak troponin 1.77. Chestx-ray, infiltrate right multifocal in the lower lobe, right-sided pleuraleffusion improved. ASSESSMENT:1. Dyspnea, possibly due to congestive heart failure, rule out pneumonia. Thepatient does not have any clinical sign of pneumonia. The patient recentlycompleted course of antibiotics for healthcare-associated pneumonia. I willcheck the CT chest and based on that, we will make pulmonary evaluation.2. History of coronary artery disease with PCI to circumflex and LAD. Thepatient is being followed up by cardiology on aspirin, Brilinta, statin, betablocker. We would continue.3. Acute on chronic kidney disease. His baseline creatinine has increased to2.3. On discharge, creatinine was 2. We will continue to monitor. Consult hisnephrologist, Dr. Teran.4. Diabetes mellitus. We will start on sliding scale. Continue home Lantusinsulin.5. Hypertension. Blood pressure is stable. We will continue support oxygen nasal cannula. Follow up with CT chest. Basedon that, the patient might need further bronchoscopy and antibiotic. Thepatient would benefit from short-term rehabilitation. We will wait for therecovery. Dictated By: Kyung Bedoya MD WT: DEVYN:LELIA/JAVAD/KENDD: 06/15/2019 11:56:19DT: 06/15/2019 12:52:38Conf#: [id number]/DID#: [id number] by Kyung Bedoya MD On 07/04/2019 06:32:41 AM at 0633 PATIENT NAME: DUSTY FRANCOIS and physical [id number]:52:00G.[id number] vailable for patient [id number]:33:17 [facility] 2019-06-15 11:45:00 [id number]:45:00 [facility] ([facility])Clinical NoteREPORT#:[id number] REPORT STATUS: SignedDATE:06/15/19 TIME: 1145 PATIENT: DUSTY FRANCOIS UNIT #: [id number]#: [id number] ROOM/BED: [facility]7DOB: [birth year] AGE: 58 SEX: M ATTEND: Kyung Bedoya AUTHOR: Kyung Bedoya MD * ALL edits or amendments must be made on the electronic/computer document * Clinical NoteNote:SEEN AND EXAMINED H/P DICTATED at 1146 RPT #:[id number] OF REPORTCLClinical [id number]:45:00G.[id number] le for patient [id number]:46:37 [facility] 2019-06-15 10:14:00 [id number]:14:00 [facility] ([facility])Cardiology Progress NoteREPORT#:[id number] REPORT STATUS: SignedDATE:06/15/19 TIME: 1014 PATIENT: DUSTY FRANCOIS UNIT #: [id number]#: [id number] ROOM/BED: [facility]7DOB: [birth year] AGE: 58 SEX: M ATTEND: Kyung Bedoya AUTHOR: Jennifer Gonzalez MD * ALL edits or amendments must be made on the electronic/computer document * SubjectiveChief Complaint:the same Objective GeneralVS/I O:Laboratory Tests: 06/15 06/15 06/15 06/15 0309 0310 0312 0312Chemistry Lactic Acid (0.90 - 1.70 MMOL/L) 1.0 Magnesium (1.8 - 2.4 mg/dL) 2.10 Total Bilirubin (0.0 - 1.0 mg/dL) 0.10 Direct Bilirubin (0.0 - 0.30 MG/DL) < 0.10 Indirect Bilirubin (MG/DL) 0.00 AST (15 - 37 IUnit/L) 61 H ALT (15 - 65 IUnit/L) 45 Total Alk Phosphatase (20 - 125 IUnit/L) 53 Rapid Troponin I (0.00 - 0.08 ng/mL) 1.21 *H B-Natriuretic Peptide (0 - 100 PG/ML) 630.4 H Total Protein (6.4 - 8.2 g/dL) 6.2 L Albumin (3.4 - 5.0 g/dL) 1.80 L Lipase (73 - 393 IUnit/L) 55 LCoagulation INR (0.8 - 1.2) 1.1 PTT (Abiola) (25.0 - 39.5 Seconds) 30.3 PT Patient/Control Mix (9.3 - 12.9 SECONDS) 12.3Hematology WBC (4.5 - 11.0 x10 3/uL) 10.52 RBC (4.00 - 5.60 x10 6/uL) 2.94 L Hgb (12.5 - 16.9 g/dL) 7.8 L Hct (37.5 - 50.7 %) 25.0 L MCV (81.0 - 99.0 fL) 85.0 MCH (27.0 - 33.0 pg) 26.5 L MCHC (33.0 - 37.0 g/dL) 31.2 L RDW (11.5 - 14.5 %) 13.6 Plt Count (150 - 400 x10 3/uL) 509 H MPV (7.0 - 9.0 fL) 9.6 H Neut % (Auto) (56.0 - 77.0 %) 70.4 Lymph % (Auto) (14.0 - 32.0 %) 15.9 Highland % (Auto) (4.8 - 9.0 %) 8.4 Eos % (Auto) (0.3 - 3.7 %) 4.5 H Baso % (Auto) (0.0 - 2.0 %) 0.2 Neut # (Auto) (2.0 - 7.6 x10 3/uL) 7.42 Lymph # (Auto) (1.0 - 3.8 x10 3/uL) 1.67 Highland # (Auto) (0.1 - 0.8 x10 3/uL) 0.88 H Eos # (Auto) (0.0 - 0.2 x10 3/uL) 0.47 H Baso # (Auto) (0.0 - 0.2 x10 3/uL) 0.02 Abs Immat Gran (auto) (0.00 - 0.03 x10 3/uL) 0.06 H Add Manual Diff NO Immature Gran % (0.0 - 2.0 %) 0.6 Nucleated RBC % (0 - 0 %) 0.0 Nucleated RBCs # (Man) (0.0 - 0.1 x10 3/uL) 0.00 06/15 06/15 06/15 06/15 0354 0422 9339 0555 Blood Gas Puncture Site R Rad ABG pH (7.35 - 7.45) 7.408 ABG pCO2 (35 - 45 mmHg) 35.7 ABG pO2 (80 - 100 mmHg) 71 L ABG HCO3 (22.0 - 26.0 mmol/L) 22.5 ABG Total CO2 24 ABG O2 Saturation (90 - 100 %) 94 ABG Base Excess (-4 - 4 mmol/L) -2.0 Temperature (F) 98.6 O2 Delivery Device Cannula Chemistry POC Sodium (134 - 147 MMOL/L) 138 POC Potassium (3.4 - 5.0 MMOL/L) 4.5 POC Chloride (100 - 108 MMOL/L) 105 Carbon Dioxide (21 - 33 mmol/L) 24.0 POC BUN (7 - 18 MG/DL) 30 H POC Creatinine (0.6 - 1.3 MG/DL) 2.3 H Estimated GFR (MDRD) (ML/MIN) 38 POC Glucose (70 - 110 MG/DL) 89 POC Ioniz Calcium Arley (1.12 - 1.32 MG/DL) 1.17 LDL Cholesterol Measurd (0 - 100 mg/dL) 71 Procalcitonin (0.00 - 0.05 ng/mL) 0.15 H 06/15 06/15 06/15 0556 0630 0855 Chemistry Troponin I (0.000 - 0.045 ng/mL) 1.990 *H 1.770 *H Urines Urine Color (YEL/STRAW) YELLOW Urine Appearance (CLEAR) SL CLOUDY Urine pH (5.0 - 7.0) 5.0 Ur Specific Center Line (1.005 - 1.030) 1.015 Urine Protein (NEGATIVE) 2+ H Urine Glucose (UA) (NEGATIVE) NEGATIVE Urine Ketones (NEGATIVE) NEGATIVE Urine Blood (NEGATIVE) 2+ H Urine Nitrite (NEGATIVE) NEGATIVE Urine Bilirubin (NEGATIVE) NEGATIVE Urine Urobilinogen (0.2 - 1.0 mg/dL) 0.2 Ur Leukocyte Esterase (NEGATIVE) NEGATIVE Urine RBC (0 - 3 RBC/HPF) 0-3 Urine WBC (0 - 3 WBC/HPF) 0-3 Ur Squamous Epith Cells (NONE SEEN /HPF) 0-5 Urine Bacteria (NONE SEEN /HPF) TRACE Hyaline Casts (NONE SEEN /LPF) 11-20 Urine Mucus (NONE SEEN /LPF) TRACE Microbiology: Date/Time Procedure - Status Source Growth 06/15 422 Blood Culture - RECD BLOOD 06/15 422 Blood Culture - RECD BLOOD Recent Impressions:RADIOLOGY - XR CHEST 1 V 06/15 0341 Report Impression - Status: SIGNED Entered: 06/15/2019 0357 IMPRESSION:1. Right lung multifocal infiltrate with interval improvement in theright lower lobe infiltrate.2. Small right pleural effusion have improved. Probably trace leftpleural effusion. SL: [JSYED-H]Impression By: AlenaJSAlfredo - Yakov Lemos M.D. Current Medications Sig/Jean Carlos Start time Last Medication Dose Route Stop Time Status Admin Aspirin 325 MG ONCE ONE 06/15 415 DC 06/15 PO 06/15 416 0447 Hydralazine HCl 10 MG Q2H PRN PRN 06/15 0415 AC IV 06/16 030 Hydrocodone Bitart/ 1 TAB Q4H PRN PRN 06/15 0415 AC Acetaminophen PO 06/16 0309 Morphine Sulfate 4 MG Q4H PRN PRN 06/15 0415 AC IV 06/16 0309 Ondansetron HCl 4 MG Q6H PRN PRN 06/15 0415 AC IV 06/16 0309 Sodium Chloride 2,250 ML X1ED STA 06/15 0401 DC 06/15 IV 06/15 0402 0432 Piperacillin Sod/ 3.375 GM X1ED STA 06/15 0357 DC 06/15 Tazobactam Sod IV 06/15 0426 0431 Sodium Chloride 100 ML Sodium Chloride 2,250 ML X1ED STA 06/15 0357 CAN IV 06/15 0358 Vancomycin HCl 1,000 MG X1ED STA 06/15 0357 DC 06/15 Sodium Chloride 250 ML IV 06/15 0456 0550 Sodium Chloride 0 ASDIR PRN 06/15 0300 AC IV 06/16 0156 24 hour I O ending at 0700: 06/14 1900 06/15 0700 Intake Total Output Total Balance Patient 190 lb Weight Weight Stated/Reported Measurement Method Vital Signs: Date Time Temp Pulse Resp B/P B/P Pulse O2 O2 Flow FiO2 Mean Ox Delivery Rate 06/15 0921 74 18 142/81 101 99 06/15 0830 Nasal 2.447126 cannula 06/15 0647 57 17 157/92 113 94 Nasal 3.825214 cannula 06/15 0500 74 17 157/94 115 98 Nasal 2.077696 cannula 06/15 0448 Nasal 3.299880 cannula 06/15 0445 97 Nasal 3.527273 cannula 06/15 0255 Nasal 3.647330 cannula 06/15 0247 97.8 63 15 135/88 103 92 Nasal 3.491525 cannula Patient Weight Weight (lb): Weight (oz): Weight (kg): 86.364 Physical ExamGeneral appearance: alertHead/Eyes: atraumaticENT: moist mucosal membranesNeck: full range of motionCardiovascular: CV assessment: regular rate and rhythmRespiratory: rhonchiAbdomen: softLower extremity: LE assessment: edema Diagnosis, Assessment Plan Free Text DxA P NotesFree Text DxA P Notes:1) Mildly increased troponin. No new MN, just the tail of a recent MN continue meds 2) Dyspnea - multifacorial 3) Community acquired PNA 4) Recent CVA 5) BRENDA/ CKD 6) Fluid overload continue diuretics. at [facility] #:[id number] OF REPORTPRProgress [id number]:14:00G.[id number] le for patient [id number]:16:35 [facility] 2019-06-15 03:43:00 [id number]:43:00 [facility] ([facility])EMERGENCY PROVIDER REPORTREPORT#:[id number] REPORT STATUS: SignedDATE:06/15/19 TIME: 342 PATIENT: DUSTY FRANCOIS UNIT #: [id number]#: [id number] [address] SEX: M PCP PHYS: Shawanda Wild DOSERVICE AUTHOR: Edgar Cooper MD * ALL edits or amendments must be made on the electronic/computer document * HPI-Dyspnea/Wheezing GeneralConfirmed Patient YesInitial Greet Date/Time 06/15/19 0254 PresentationChief Complaint Shortness of breathHx Obtained From Patient)( Sudden in Onset? NoOnset Occurred Yesterday Free Text HPI NotesFree Text HPI Notes58 y/o M w/ pmhx of DM, HTN, TIA, and x2 cardiac stents presents to the ED w/ c/o SOB that began yesterday after discharge from this hospital. Pt reports he arrived home and began to have SOB. Per pt, he was unable to sleep and he is noton home o2. Pt does not smoke or drink. 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 Portions of this section were scribed by Christian Jeffers on 06/15/19 at 0409 Review of Systems ROS StatementsAll systems rev neg except as marked. Focused Review of SystemsRespiratoryReports: Shortness of breath. Portions of this section were scribed by Christian Jeffers on 06/15/19 at 0343 Past Medical History - AdultStated Complaint SOB,D/C FROM HERE YESTERDAYAllergiesCoded Allergies:No Known Allergies (09/21/18) Home MedicationsActive ScriptsTICAGRELOR (BRILINTA) 90 MG PO BID TICAGRELOR (BRILINTA) 90 MG PO BID #180 TAB Ref 4 Prov: 06/13/19ATORVASTATIN (LIPITOR) 80 MG PO DAILY 1700 ATORVASTATIN (LIPITOR) 80 MG PO DAILY 1700 #90 TAB Ref 4 Prov: 06/13/19METOPROLOL SUCC XL (TOPROL XL) 75 MG PO BID METOPROLOL SUCC XL (TOPROL XL) 75 MG PO BID #180 TAB Ref 4 Prov: 06/13/19ASPIRIN 81 MG PO DAILY ASPIRIN 81 MG PO DAILY #90 TAB Ref 4 Prov: 06/13/19 Discontinued ScriptsamLODIPine (NORVASC) 10 MG PO DAILY amLODIPine (NORVASC) 10 MG PO DAILY #90 TAB Ref 4 Prov: 06/13/19 DC: 06/18/19 1344 Reported MedicationsERGOCALCIFEROL (VITAMIN D2) 50,000 UNITS PO Q7D HYDROcodone/APAP (NORCO 10/325) 1 TAB PO Q6H PRN PRN PAIN INSULIN DETEMIR (LEVEMIR) 10 UNITS SUBQ Q12HR Discontinued Reported MedicationsROSUVASTATIN (CRESTOR) 40 MG PO BEDTIME METOPROLOL TARTRATE (LOPRESSOR) 25 MG PO DAILY LISINOPRIL (ZESTRIL) 20 MG PO DAILY Past Medical History:Reports: Diabetes mellitus, Hypertension, Transient ischemic attack, Dyslipidemia. Denies: Asthma, Coronary artery disease. Additional Medical HistoryPNAAdditional Surgical HistoryToe amputation, x2 cardiac stentsAdditional Family HistoryBrother and Father CADAlcohol Use Denies EtOH useDrug Use Denies recreational drugsSmoking status for patients 13 years old or older: Never Smoker Portions of this section were scribed by Christian Jeffers on 06/15/19 at 0343 Physical Exam Vital SignsVital SignsFirst Documented: Result Date Time Pulse Ox 92 06/15 247 B/P 135/88 06/15 247 B/P Mean 103 06/15 247 O2 Delivery Nasal cannula 06/15 247 O2 Flow Rate 3.388977 06/15 247 Temp 36.6 06/15 247 Pulse 63 06/15 247 Resp 15 06/15 247 Last Documented: Result Date Time O2 Delivery Nasal cannula 06/15 255 O2 Flow Rate 3.090508 06/15 255 Pulse Ox 92 06/15 247 B/P 135/88 06/15 247 B/P Mean 103 06/15 247 Temp 36.6 06/15 247 Pulse 63 06/15 247 Resp 15 06/15 247 Review of Vital Signs Reviewed Focused PEGeneral/Const General/Const Awake, Alert, CooperativeEars/Nose/Throat Ears/Nose/Throat Airway patent, Mucous membranes moistMS Neck Neck Supple, Full range of motionResp/Chest Respiratory/Chest Breath sounds NL, No respiratory distress, No rhonchi, No wheezing, No retractionsCardiovascular Cardiovascular Heart rate NL, Regular rhythm, Heart sounds NL, Peripheral circulation NLAbdomen/GI Abdomen/GI Soft, Non-tender, No guarding, No rebound, No distentionMS Back Back AtraumaticMS Lower Extrem Lower Ext/Pelvis/MS Full range of motion Text/Dict NotesNon-pitting edema to BLESkin Skin Warm, Dry, IntactNeurologic Neurologic Oriented X3, Speech NL Additional PEMS Head Head Atraumatic, NormocephalicEyes Eyes EOMIPsychiatric Psychiatric Affect NL, Mood NL, Not suicidal, Not homicidal, No hallucinations Portions of this section were scribed by Christian Jeffers on 06/15/19 at 0407 Interpretation Diagnostics Lab Results InterpretationResultsLaboratory Tests 06/15/19 0354:[Embedded Image Not Available] 06/15/19 0312:[Embedded Image Not Available]Laboratory Tests: 06/15 06/15 06/15 06/15 0425 0422 0354 0312 Blood Gas Puncture Site R Rad ABG pH (7.35 - 7.45) 7.408 ABG pCO2 (35 - 45 mmHg) 35.7 ABG pO2 (80 - 100 mmHg) 71 L ABG HCO3 (22.0 - 26.0 mmol/L) 22.5 ABG Total CO2 24 ABG O2 Saturation (90 - 100 %) 94 ABG Base Excess (-4 - 4 mmol/L) -2.0 Temperature (F) 98.6 O2 Delivery Device Cannula Chemistry POC Sodium (134 - 147 MMOL/L) 138 POC Potassium (3.4 - 5.0 MMOL/L) 4.5 POC Chloride (100 - 108 MMOL/L) 105 Carbon Dioxide (21 - 33 mmol/L) 24.0 POC BUN (7 - 18 MG/DL) 30 H POC Creatinine (0.6 - 1.3 MG/DL) 2.3 H Estimated GFR (MDRD) (ML/MIN) 38 POC Glucose (70 - 110 MG/DL) 89 POC Ioniz Calcium Arley (1.12 - 1.32 MG/DL) 1.17 B-Natriuretic Peptide (0 - 100 PG/ML) 630.4 H Procalcitonin (0.00 - 0.05 ng/mL) 0.15 H 0806/15 08 0312 0310 0309 Chemistry Lactic Acid (0.90 - 1.70 MMOL/L) 1.0 Magnesium (1.8 - 2.4 mg/dL) 2.10 Total Bilirubin (0.0 - 1.0 mg/dL) 0.10 Direct Bilirubin (0.0 - 0.30 MG/DL) < 0.10 Indirect Bilirubin (MG/DL) 0.00 AST (15 - 37 IUnit/L) 61 H ALT (15 - 65 IUnit/L) 45 Total Alk Phosphatase (20 - 125 IUnit/L) 53 Rapid Troponin I (0.00 - 0.08 ng/mL) 1.21 *H Total Protein (6.4 - 8.2 g/dL) 6.2 L Albumin (3.4 - 5.0 g/dL) 1.80 L Lipase (73 - 393 IUnit/L) 55 L Coagulation INR (0.8 - 1.2) 1.1 PTT (Abiola) (25.0 - 39.5 Seconds) 30.3 PT Patient/Control Mix (9.3 - 12.9 SECONDS) 12.3 Hematology WBC (4.5 - 11.0 x10 3/uL) 10.52 RBC (4.00 - 5.60 x10 6/uL) 2.94 L Hgb (12.5 - 16.9 g/dL) 7.8 L Hct (37.5 - 50.7 %) 25.0 L MCV (81.0 - 99.0 fL) 85.0 MCH (27.0 - 33.0 pg) 26.5 L MCHC (33.0 - 37.0 g/dL) 31.2 L RDW (11.5 - 14.5 %) 13.6 Plt Count (150 - 400 x10 3/uL) 509 H MPV (7.0 - 9.0 fL) 9.6 H Neut % (Auto) (56.0 - 77.0 %) 70.4 Lymph % (Auto) (14.0 - 32.0 %) 15.9 [place]land % (Auto) (4.8 - 9.0 %) 8.4 Eos % (Auto) (0.3 - 3.7 %) 4.5 H Baso % (Auto) (0.0 - 2.0 %) 0.2 Neut # (Auto) (2.0 - 7.6 x10 3/uL) 7.42 Lymph # (Auto) (1.0 - 3.8 x10 3/uL) 1.67 Highland # (Auto) (0.1 - 0.8 x10 3/uL) 0.88 H Eos # (Auto) (0.0 - 0.2 x10 3/uL) 0.47 H Baso # (Auto) (0.0 - 0.2 x10 3/uL) 0.02 Abs Immat Gran (auto) (0.00 - 0.03 x10 3/uL) 0.06 H Add Manual Diff NO Immature Gran % (0.0 - 2.0 %) 0.6 Nucleated RBC % (0 - 0 %) 0.0 Nucleated RBCs # (Man) (0.0 - 0.1 x10 3/uL) 0.00 Microbiology: Date/Time Procedure - Status Source Growth 06/15 422 Blood Culture - RES BLOOD 06/15 422 Blood Culture - RES BLOOD Recent Impressions:RADIOLOGY - XR CHEST 1 V 06/15 0341 Report Impression - Status: SIGNED Entered: 06/15/2019 0357 IMPRESSION:1. Right lung multifocal infiltrate with interval improvement in theright lower lobe infiltrate.2. Small right pleural effusion have improved. Probably trace leftpleural effusion. SL: [JSYED-H]Impression By: [email or web address] - Yakov Lemos M.D. Lab Imaging StatementLaboratory radiographic studies reviewed and considered in the medical decision-making. Point of Care TestingPulse Oximetry Pulse Ox % 92 On: Nasal cannula Interpretation Interpreted by me Time 0247 ECG #1 InterpretationDate 06/15/19Time 0305Interpreted by ED physicianNL ECG Interpretation Normal sinus rhythm, No STEMIRate 78Atrium and Vent Size Ventricle enlarged - L RadiographyX-Ray Chest Text/Dict NoteRADIOLOGY - XR CHEST 1 V 06/15 0341 Report Impression - Status: SIGNED Entered: 06/15/2019 0357 IMPRESSION:1. Right lung multifocal infiltrate with interval improvement in theright lower lobe infiltrate.2. Small right pleural effusion have improved. Probably trace leftpleural effusion. Interpretation/Wet Read by Interpret - Radiologist Reviewed by ED physician Portions of this section were scribed by Christian Jeffers on 06/15/19 at 0409 Re-Evaluation MDM )( Re-Evaluation/Progress #1Text/Dict NoteDiscussed the results/diagnosis with pt and plan for admission to the hospital for further care. Pt agrees with admission.Time of Re-Eval 0410)( Re-Eval Status Unchanged ED CourseMedication(s) OrderedMedication(s) Ordered:Anti-Infective Agents Sig/Jean Carlos Start time Last Medication Dose Route Stop Time Status Admin Piperacillin Sod/ 3.375 GM X1ED STA 06/15 0357 AC Tazobactam Sod IV 06/15 0426 Sodium Chloride 100 ML Vancomycin HCl 1,000 MG X1ED STA 06/15 0357 AC Sodium Chloride 250 ML IV 06/15 0456 Electrolytic, Caloric, And Alex Sig/Jean Carlos Start time Last Medication Dose Route Stop Time Status Admin Sodium Chloride 2,250 ML X1ED STA 06/15 0401 DC IV 06/15 0402 Sodium Chloride 2,250 ML X1ED STA 06/15 0357 CANr IV 06/15 0358 Sodium Chloride 0 ASDIR PRN 06/15 0300 AC IV 06/16 0156 Free Text MDM NotesFree Text MDM Notespatient with recent labs and recent discharge and recent and current ABX - D/W Dr. Brandon zazueta re-admit for continued inpatient ABX and treatments. Per radioogy, resolving infiltrates Portions of this section were scribed by Christian Jeffers on 06/15/19 at 0409 Patient Discharge Departure Vital Signs/ConditionVital SignsFirst Documented: Result Date Time Pulse Ox 92 06/15 0247 B/P 135/88 06/15 0247 B/P Mean 103 06/15 0247 O2 Delivery Nasal cannula 06/15 247 O2 Flow Rate 3.800562 06/15 0247 Temp 36.6 06/15 024 Pulse 63 06/15 0247 Resp 15 06/15 247 Last Documented: Result Date Time O2 Delivery Nasal cannula 06/15 255 O2 Flow Rate 3.450019 06/15 025 Pulse Ox 92 06/15 247 B/P 135/88 06/15 247 B/P Mean 103 06/15 247 Temp 36.6 06/15 247 Pulse 63 06/15 0247 Resp 15 06/15 024 All vital signs available at the time of this entry have been reviewed. Condition Guarded Clinical ImpressionClinical ImpressionPrimary Impression: Shortness of breath Disposition DecisionAdmit Admit Physician Name Kyung Bedoya MD Admit Physician Hospitalist Request Time 040 Request Date 06/15/19 )( Admission Accepts Yes )( Accepted Time 040 )( Accepted Date 06/15/19 Call Information will see patient Discharge/Care PlanCounseled Regarding Diagnosis, Lab results, Imaging studies, Need for admission Supervising Physician Note Scribe StatementProChristian ferris, 06/15/19 0343, scribing for and in the presence of [Dr. Cooper].Signed By: Christian Jeffers, 06/15/19 0343 Provider Scribed StatementI personally performed the services described in this documentation and reviewedthe documentation that was dictated to the scribe(s) in my presence, and it accurately records my words and actions. Edgar Cooper, 06/19/19 Portions of this section were scribed by Christian Jeffers on 06/15/19 at 0409 at 0846RPT #:[id number] OF REPORTEDEmergen department zdznws0349-93-46E70:43:00G.[id number] able for patient ogmhSMCCFKBIUTOYFD7892-27-55Z07:46:57 [facility] 2019-06-14 16:30:00 [id number]:30:00 [facility] Prog. NoteREPORT#:[id number] REPORT STATUS: SignedDATE:06/14/19 TIME: 1630 PATIENT: DUSTY FRANCOIS UNIT #: [id number]#: [id number] ROOM/BED: G6606-1DOB: [birth year] AGE: 58 SEX: M ATTEND: Kyung Bedoya [facility] AUTHOR: Kyung Bedoya MD * ALL edits or amendments must be made on the electronic/computer document * SubjectiveChief Complaint:FEELING MUCH BETTER NO CHESTPAIN C/O CONSTIPATION SP02 ON AMPULATION 88%Patient reports: chest pain, cough Review of SystemsConstitutional:Reports: generalized weakness. Skin:Denies: abrasion, bruising, contusion, diaphoresis, ecchymosis, itching, laceration, rash, swelling, other. Allergy/Immun:Denies: allergic reaction, anaphylaxis, hives, itching, rhinorrhea, sneezing, other. Eyes:Denies: redness, discharge, visual loss/blurred, itching, diplopia, eye pain, photophobia, swelling, other. Respiratory:Reports: productive cough (sputum), SOB. Cardiovascular:Reports: orthopnea. GI:Denies: abdominal pain, anorexia, constipation, diarrhea, dysphagia, GERD, hematemesis, hematochezia, hiatal hernia, melena, nausea, rectal pain, vomiting,other. Musculoskeletal:Denies: arthritis, extremity pain, extremity swelling, joint pain, joint swelling, lumbar pain, myalgias, neck pain, thoracic pain, other. Neuro:Reports: weakness. All systems rev neg: except as marked Objective GeneralVS/I O:Vital SignsDate Temp Pulse Resp B/P B/P Mean Pulse Ox SjY086/-06/14 97.3-98.6 80-86 14-18 123-148/70-85 87.9-106.1 90-98 Last Documented: Result Date Time Pulse Ox 98 06/14 1028 B/P 129/73 06/14 1028 B/P Mean 91.9 06/14 1028 O2 Delivery Room air 06/14 1028 Temp 97.3 06/14 1028 Pulse 84 06/14 1028 Resp 14 06/14 1028 O2 Flow Rate 3.068206 06/14 0726 FiO2 70 06/06 0215 24 hour I O ending at 0700: 06/14 0700 06/13 1900 Intake Total Output Total Balance Patient 86.183 kg Weight Patient Weight Weight (lb): 190Weight (oz): 0.62Weight (kg): 86.183 Medications:Active Meds + DC'd Last 24 HrsFurosemide 20 MG BID 9A 5P PO (DCD) Pantoprazole 40 MG 0900 PO (DCD) Furosemide 40 MG BID IV (DC) Linezolid 600 MG Q12HR PO (DCD) Metoprolol Succinate 75 MG BID PO (DCD) Cefepime HCl 1 GM Q6H IV (DCD) Sodium Chloride 100 MLAmlodipine Besylate 10 MG DAILY PO (DCD) Insulin Glargine 5 UNIT Q12HR SUBQ (DCD) Albuterol/Ipratropium 3 ML RTQ6H INH (DCD) Albuterol/Ipratropium 3 ML RTQ2H PRN PRN INH (DCD) Bisacodyl 10 MG DAILY PRN PRN PO (DCD) Heparin Sodium 5,000 UNIT Q12HR SUBQ (DCD) Hydralazine HCl 10 MG Q6H PRN PRN IV (DCD) Sodium Chloride 10 ML ASDIR PRN IV (DCD) Promethazine HCl 25 MG Q8H PRN PRN IM (DCD) Diphenhydramine HCl 25 MG Q6H PRN PRN PO (DCD) Benzonatate 100 MG Q6H PRN PRN PO (DCD) Aspirin 81 MG DAILY PO (DCD) Dextrose/Water 125 ML ASDIR PRN IV (DCD) Dextrose/Water 250 ML ASDIR PRN IV (DCD) Glucagon 1 MG ASDIR PRN IM (DCD) Al Hydrox/Mg Hydrox/Simethicone 30 ML Q4H PRN PRN PO (DCD) Docusate Sodium 100 MG BID PRN PRN PO (DCD) Ergocalciferol 50,000 INTL.UNITS Q7D PO (DCD) Hydrocodone Bitart/Acetaminophen 1 TAB Q6H PRN PRN PO (DCD) Insulin Human Lispro 0 AC HS SUBQ (DCD) Lactulose 20 GM Q6H PRN PRN PO (DCD) Ondansetron HCl 4 MG Q4H PRN PRN IV (DCD) Potassium Chloride 40 MEQ DAILY PRN PRN PO (DCD) Ticagrelor 90 MG BID PO (DCD) Zolpidem Tartrate 5 MG BEDTIME PRN PRN PO (DCD) Acetaminophen 650 MG Q6H PRN PRN PO (DCD) Atropine Sulfate 0.5 MG ASDIR PRN IV (DCD) Atorvastatin Calcium 80 MG DAILY 1700 PO (DCD) Morphine Sulfate 2 MG Q3H PRN PRN IV (DCD) Physical ExamGeneral appearance: alert, awake, orientedHead/Eyes: atraumatic, EOMINeck: non-tender, supple/no meningismusCardiovascular: normal heart sounds, regular rate rhythmRespiratory: crackles, decreased breath sounds, shortness of breathAbdomen: soft, no distentionExtremities: Extremities: no edemaNeuro/VACUUM FILTER OPERATOR: alert, oriented x 3 ResultsFindings/Data:Laboratory Tests 06/14/19 0400:[Embedded Image Not Available]Laboratory Tests 06/14 06/14 06/14 06/13 1025 0734 0400 2022 Chemistry Sodium (134 - 147 mEq/L) 140 Potassium (3.4 - 5.0 mEq/L) 4.3 Chloride (100 - 108 mEq/L) 108 Carbon Dioxide (21 - 33 mEq/L) 26 Anion Gap (0 - 20) 10 BUN (7 - 18 mg/dL) 25 H Creatinine (0.6 - 1.3 mg/dL) 2.0 H Glomerular Filtr Rate (90 - 95) 42.0 L Glucose (70 - 110 mg/dL) 157 H POC Glucose (70 - 110 MG/DL) 243 H 227 H 181 H Calcium (8.0 - 10.5 mg/dL) 8.4 Phosphorus (2.5 - 4.9 mg/dL) 3.7 Magnesium (1.8 - 2.4 mg/dL) 2.20 Total Bilirubin (0.0 - 1.0 mg/dL) < 0.10 AST (15 - 37 IUnit/L) 69 H ALT (15 - 65 IUnit/L) 46 Total Alk Phosphatase (20 - 125 IUnit/L) 61 Total Protein (6.4 - 8.2 g/dL) 5.7 L Albumin (3.4 - 5.0 g/dL) 1.60 L Laboratory Tests 06/14 0400 Hematology WBC (4.5 - 11.0 x10 3/uL) 8.00 RBC (4.00 - 5.60 x10 6/uL) 2.70 L Hgb (12.5 - 16.9 g/dL) 7.3 L Hct (37.5 - 50.7 %) 23.5 L MCV (81.0 - 99.0 fL) 87.0 MCH (27.0 - 33.0 pg) 27.0 MCHC (33.0 - 37.0 g/dL) 31.1 L RDW (11.5 - 14.5 %) 13.6 Plt Count (150 - 400 x10 3/uL) 429 H MPV (7.0 - 9.0 fL) 10.1 H Neut % (Auto) (56.0 - 77.0 %) 66.4 Lymph % (Auto) (14.0 - 32.0 %) 18.0 Highland % (Auto) (4.8 - 9.0 %) 9.4 H Eos % (Auto) (0.3 - 3.7 %) 5.4 H Baso % (Auto) (0.0 - 2.0 %) 0.3 Neut # (Auto) (2.0 - 7.6 x10 3/uL) 5.32 Lymph # (Auto) (1.0 - 3.8 x10 3/uL) 1.44 Highland # (Auto) (0.1 - 0.8 x10 3/uL) 0.75 Eos # (Auto) (0.0 - 0.2 x10 3/uL) 0.43 H Baso # (Auto) (0.0 - 0.2 x10 3/uL) 0.02 Abs Immat Gran (auto) (0.00 - 0.03 x10 3/uL) 0.04 H Add Manual Diff NO Immature Gran % (0.0 - 2.0 %) 0.5 Nucleated RBC % (0 - 0 %) 0.0 Nucleated RBCs # (Man) (0.0 - 0.1 x10 3/uL) 0.00 Diagnosis, Assessment PlanProblem List/A P: 1. Right parietal lobe lesion 2. CVA (cerebrovascular accident) 3. Cellulitis of right knee 4. Syncope 5. PAD (peripheral artery disease) 6. Acute on chronic renal failure 7. Diabetic nephropathy 8. Diabetic neuropathy Free Text DxA P NotesFree Text DxA P Notes: 1. ACUTE CORONARY SYNDROME - S/P PCI TO MID CIRCUMFLEX .LAD , ON ASA ,BRILANTA ,METOPROLOL,, PLANS FOR STAGED PCT TO RCA LATER/WILL HOLD STATIN FOR MYELGIA AND ELEVATED CK FOR NOW 2,SUBACUTE CVA - NEURO FU 3.HYPOXIA DUE TO PULMO EDEMA -STARTED LASIX 4..HCAP -ON CEFIPIME /ZYVOX ,ID FU/SPO2 ON ROOM AIR 88% /RPT CXR 5.BRENDA - ON LASIX ,EXPECTED TO INCREASE , MONITOR ,HOLD IVF FOR NOW ,NEPHROLOGY EVALUATION 6.DM -UNCONCONTROLED -HBA1C 9.1 -ON LANTUS ,HUMOLOG 7.PAD 8.CONSTIPATION -ADD DULCOLUX PT/OT dc home at 1631 RPT #:[id number] OF REPORTPRProgress [id number]:30:00G.[id number] for patient jgpdUYJPNJBIADUBBE1094-40-42E36:32:18 [facility]ACL 2019-06-14 16:25:00 [id number]:25:00 H [facility] ([facility])Infectious Dis. Progress NoteREPORT#:[id number] REPORT STATUS: SignedDATE:06/14/19 TIME: 1625 PATIENT: DUSTY FRANCOIS UNIT #: [id number]#: [id number] ROOM[address]DOB: [birth year] AGE: 58 SEX: M [facility]END[facility] AUTHOR: France Lee MD * ALL edits or amendments must be made on the electronic/computer document * SubjectiveChief Complaint:f/u HCAPPatient reports:No: cough, diarrhea, headache, nausea, shortness of breath, vomiting. Portions of this section were scribed by Janice Donahue on 06/14/19 at 1625 Objective GeneralVS/I O:Last Documented: Result Date Time Pulse Ox 98 06/14 1028 B/P 129/73 06/14 1028 B/P Mean 91.9 06/14 1028 O2 Delivery Room air 06/14 1028 Temp 36.3 06/14 1028 Pulse 84 06/14 1028 Resp 14 06/14 1028 O2 Flow Rate 3.522753 06/14 0726 FiO2 70 06/06 0215 Vital SignsDate Temp Pulse Resp B/P B/P Mean Pulse Ox HmG408/30-06/14 36.3-37.0 80-86 14-18 123-148/70-85 87.9-106.1 90-98 24 hour I O ending at 0700: 06/14 0700 06/13 1900 Intake Total Output Total Balance Patient 86.183 kg Weight Patient Weight Weight (lb): 190Weight (oz): 0.62Weight (kg): 86.183 Physical ExamGeneral appearance: alert, awake, orientedHead/Eyes: atraumatic, clear cornea, EOMI, normal conjunctiva/sclera, normal eyelids/periorb, normocephalic, PERRLENT: normal dentition, normal nose, normal pharynx, normal sinusNeck: full range of motion, non-tender, normal thyroid, supple/no meningismus, no bruit/NL carotids, no JVD, no masses or swelling, no lymphadenopathyCardiovascular: regular rate rhythmRespiratory: decreased breath soundsAbdomen: non-tender, soft, no distention, no guarding, no mass/organomegaly, no reboundExtremities: edema (alejandra LE), moves all, normal capillary refillNeuro/VACUUM FILTER OPERATOR: alert, oriented X 3Skin: dry, intact ResultsFindings/Data:Laboratory Tests 06/14 06/14 06/14 06/13 1025 0734 0400 2022 Chemistry Sodium (134 - 147 mEq/L) 140 Potassium (3.4 - 5.0 mEq/L) 4.3 Chloride (100 - 108 mEq/L) 108 Carbon Dioxide (21 - 33 mEq/L) 26 Anion Gap (0 - 20) 10 BUN (7 - 18 mg/dL) 25 H Creatinine (0.6 - 1.3 mg/dL) 2.0 H Glomerular Filtr Rate (90 - 95) 42.0 L Glucose (70 - 110 mg/dL) 157 H POC Glucose (70 - 110 MG/DL) 243 H 227 H 181 H Calcium (8.0 - 10.5 mg/dL) 8.4 Phosphorus (2.5 - 4.9 mg/dL) 3.7 Magnesium (1.8 - 2.4 mg/dL) 2.20 Total Bilirubin (0.0 - 1.0 mg/dL) < 0.10 AST (15 - 37 IUnit/L) 69 H ALT (15 - 65 IUnit/L) 46 Total Alk Phosphatase (20 - 125 IUnit/L) 61 Total Protein (6.4 - 8.2 g/dL) 5.7 L Albumin (3.4 - 5.0 g/dL) 1.60 L Laboratory Tests 06/14 0400 Hematology WBC (4.5 - 11.0 x10 3/uL) 8.00 RBC (4.00 - 5.60 x10 6/uL) 2.70 L Hgb (12.5 - 16.9 g/dL) 7.3 L Hct (37.5 - 50.7 %) 23.5 L MCV (81.0 - 99.0 fL) 87.0 MCH (27.0 - 33.0 pg) 27.0 MCHC (33.0 - 37.0 g/dL) 31.1 L RDW (11.5 - 14.5 %) 13.6 Plt Count (150 - 400 x10 3/uL) 429 H MPV (7.0 - 9.0 fL) 10.1 H Neut % (Auto) (56.0 - 77.0 %) 66.4 Lymph % (Auto) (14.0 - 32.0 %) 18.0 [place]land % (Auto) (4.8 - 9.0 %) 9.4 H Eos % (Auto) (0.3 - 3.7 %) 5.4 H Baso % (Auto) (0.0 - 2.0 %) 0.3 Neut # (Auto) (2.0 - 7.6 x10 3/uL) 5.32 Lymph # (Auto) (1.0 - 3.8 x10 3/uL) 1.44 [place] # (Auto) (0.1 - 0.8 x10 3/uL) 0.75 Eos # (Auto) (0.0 - 0.2 x10 3/uL) 0.43 H Baso # (Auto) (0.0 - 0.2 x10 3/uL) 0.02 Abs Immat Gran (auto) (0.00 - 0.03 x10 3/uL) 0.04 H Add Manual Diff NO Immature Gran % (0.0 - 2.0 %) 0.5 Nucleated RBC % (0 - 0 %) 0.0 Nucleated RBCs # (Man) (0.0 - 0.1 x10 3/uL) 0.00 Microbiology:06/10 0050 URINE: Streptococcus pneumoniae Ag Screen - COMP Active Meds + DC'd Last 24 HrsFurosemide 20 MG BID 9A 5P PO (DCD) Pantoprazole 40 MG 0900 PO (DCD) Furosemide 40 MG BID IV (DC) Linezolid 600 MG Q12HR PO (DCD) Metoprolol Succinate 75 MG BID PO (DCD) Cefepime HCl 1 GM Q6H IV (DCD) Sodium Chloride 100 MLAmlodipine Besylate 10 MG DAILY PO (DCD) Insulin Glargine 5 UNIT Q12HR SUBQ (DCD) Albuterol/Ipratropium 3 ML RTQ6H INH (DCD) Albuterol/Ipratropium 3 ML RTQ2H PRN PRN INH (DCD) Bisacodyl 10 MG DAILY PRN PRN PO (DCD) Heparin Sodium 5,000 UNIT Q12HR SUBQ (DCD) Hydralazine HCl 10 MG Q6H PRN PRN IV (DCD) Sodium Chloride 10 ML ASDIR PRN IV (DCD) Promethazine HCl 25 MG Q8H PRN PRN IM (DCD) Diphenhydramine HCl 25 MG Q6H PRN PRN PO (DCD) Benzonatate 100 MG Q6H PRN PRN PO (DCD) Aspirin 81 MG DAILY PO (DCD) Dextrose/Water 125 ML ASDIR PRN IV (DCD) Dextrose/Water 250 ML ASDIR PRN IV (DCD) Glucagon 1 MG ASDIR PRN IM (DCD) Al Hydrox/Mg Hydrox/Simethicone 30 ML Q4H PRN PRN PO (DCD) Docusate Sodium 100 MG BID PRN PRN PO (DCD) Ergocalciferol 50,000 INTL.UNITS Q7D PO (DCD) Hydrocodone Bitart/Acetaminophen 1 TAB Q6H PRN PRN PO (DCD) Insulin Human Lispro 0 AC HS SUBQ (DCD) Lactulose 20 GM Q6H PRN PRN PO (DCD) Ondansetron HCl 4 MG Q4H PRN PRN IV (DCD) Potassium Chloride 40 MEQ DAILY PRN PRN PO (DCD) Ticagrelor 90 MG BID PO (DCD) Zolpidem Tartrate 5 MG BEDTIME PRN PRN PO (DCD) Acetaminophen 650 MG Q6H PRN PRN PO (DCD) Atropine Sulfate 0.5 MG ASDIR PRN IV (DCD) Atorvastatin Calcium 80 MG DAILY 1700 PO (DCD) Morphine Sulfate 2 MG Q3H PRN PRN IV (DCD) Radiology data:Recent Impressions:RADIOLOGY - XR CHEST 1 V 06/14 1128 Report Impression - Status: SIGNED Entered: 06/14/2019 1140 IMPRESSION: Interval development of small volume right pleuraleffusion with worsening right lower lung pneumonic infiltrate. Additional subtle multifocal infiltrates also suspected bilaterally,unchanged. SL: [id number] By: AlenaSLDandre - Josias Banks M.D. Portions of this section were scribed by Janice Donahue on 06/14/19 at 1625 Diagnosis, Assessment PlanProblem List/A P: 1. Community acquired pneumonia* s/p treatment with rocephin and Azihtromycin * now noscomial pneumonia:cont on Zyvox and cefepime day#6 ;will cont for 1 more day will inpatient* Respiratory viral panel neg, strep pneumo ag neg 2. DM2 (diabetes mellitus, type 2) 3. Diabetic neuropathy 4. Acute on chronic renal failure 5. PAD (peripheral artery disease) Free Text A P:pt can be discharged home today Follow up in clinic Portions of this section were scribed by Janice Donahue on 06/14/19 at 1625 at 2014 RPT #:[id number] OF REPORTPRProgress [id number]:25:00G.[id number] le for patient rtjtIWOVGRWBMGBPLC6713-89-30N40:14:55 [facility]ACL 2019-06-14 15:35:00 [id number]:35:00 H [facility] ([facility])Cardiology Progress NoteREPORT#:[id number] REPORT STATUS: SignedDATE:06/14/19 TIME: 1535 PATIENT: DUSTY FRANCOIS UNIT #: [id number]#: [id number] [address]DOB: [birth year] AGE: 58 SEX: M ATTEND: Kyung Bedoya [facility] AUTHOR: Nicole Shay MEDICATION ADMINISTRATION PROFESSIONAL * ALL edits or amendments must be made on the electronic/computer document * SubjectiveChief Complaint:doing better Objective GeneralVS/I O:Laboratory Tests 06/14/19 0400:[Embedded Image Not Available] 06/13/19 0540:[Embedded Image Not Available]Current Medications Sig/Jean Carlos Start time LastMedication Dose Route Stop Time Status AdminFurosemide 20 MG BID 9A 5P 06/14 1700 AC PO 07/14 1659Pantoprazole 40 MG 0900 06/14 0900 AC 06/14 PO 07/14 0859 0925Furosemide 40 MG BID 06/12 2200 DC 06/13 IV 07/12Linezolid 600 MG Q12HR 06/12 2100 AC 06/14 PO 06/19 0901 0924Metoprolol 75 MG BID 06/12 2100 AC 06/14Succinate PO 07/12 2059 0924Cefepime HCl 1 GM Q6H 06/12 0945 AC 06/14Sodium Chloride 100 ML IV 06/16 1200 0923Amlodipine 10 MG DAILY 06/12 0900 AC 06/14Besylate PO 07/06 1959 0925Insulin Glargine 5 UNIT Q12HR 06/11 2100 AC 06/14 SUBQ 0923Albuterol/Ipratro 3 ML RTQ6H 06/08 2100 AC ium INH 07/08 2059 0843Albuterol/Ipratro 3 ML RTQ2H PRN PRN 06/08 1845 AC 06/11pium INH 07/08 184 2350Bisacodyl 10 MG DAILY PRN PRN 06/08 1015 AC PO 07/08 1014Heparin Sodium 5,000 UNIT Q12HR 06/07 1300 AC 06/14 SUBQ 07/07 2059 0925Hydralazine HCl 10 MG Q6H PRN PRN 06/06 2000 AC 06/09 IV 07/06 1959 0841Sodium Chloride 10 ML ASDIR PRN 06/06 0430 AC IV 07/06 0429Promethazine HCl 25 MG Q8H PRN PRN 06/06 0030 AC 06/08 IM 07/06 0029 0748Diphenhydramine 25 MG Q6H PRN PRN 06/05 1945 AC 06/05HCl PO 07/05 1944 1956Benzonatate 100 MG Q6H PRN PRN 06/05 1630 AC 06/05 PO 07/05 1629 2159Aspirin 81 MG DAILY 06/05 0900 AC 06/14 PO 07/05 0859 0925Dextrose/Water 125 ML ASDIR PRN 06/05 0815 AC IV 07/05 0814Dextrose/Water 250 ML ASDIR PRN 06/05 0815 AC IV 07/05 0814Glucagon 1 MG ASDIR PRN 06/05 0815 AC IM 07/05 0814Al Hydrox/Mg 30 ML Q4H PRN PRN 06/04 2100 ACHydrox/Simethicone PO 07/04 2059Docusate Sodium 100 MG BID PRN PRN 06/04 2100 AC 06/08 PO 07/04 2059 0848Ergocalciferol 50,000 INTL.UNITS Q7D 06/04 2100 CKD 06/11 PO 07/04 2059 2015Hydrocodone 1 TAB Q6H PRN PRN 06/04 2100 ACBitart/Acetaminophen PO 07/04 2059Insulin Human 0 AC HS 06/04 2100 AC 07/31Lispro SUBQ 07/04 2059 1213Lactulose 20 GM Q6H PRN PRN 06/04 2100 AC 06/12 PO 07/046Ondansetron HCl 4 MG Q4H PRN PRN 06/04 2100 AC 06/07 IV 07/04 2059 0635Potassium 40 MEQ DAILY PRN PRN 06/04 2100 ACChloride PO 07/04 2059Ticagrelor 90 MG BID 06/04 2100 AC 06/14 PO 07/04 2059 0924Zolpidem Tartrate 5 MG BEDTIME PRN PRN 06/04 2100 AC 06/13 PO 07/04 2059 2228Acetaminophen 650 MG Q6H PRN PRN 06/04 141 AC 06/10 PO 07/04 141 0834Atropine Sulfate 0.5 MG ASDIR PRN 06/04 141 AC IV 07/04 1414Atorvastatin 80 MG DAILY 1700 06/04 0415 AC 06/13Calcium PO 07/04 0414 1728Morphine Sulfate 2 MG Q3H PRN PRN 06/04 0415 AC IV 06/18 0414 24 hour I O ending at 0700: 06/14 0700 06/13 1900 Intake Total Output Total Balance Patient 86.183 kg Weight Vital Signs: Date Time Temp Pulse Resp B/P B/P Pulse O2 O2 Flow FiO2 Mean Ox Delivery Rate 06/14 1028 36.3 84 14 129/73 91.9 98 Room air 06/14 0735 36.7 84 14 136/77 96.6 93 Room air 06/14 0726 Nasal 3.214324 cannula 06/14 0402 37.0 80 16 138/79 98.8 94 Nasal cannula 06/13 2340 36.9 86 16 123/70 87.9 90 Nasal cannula 06/13 2244 95 High flow 6.533193 nasal cannula 06/13 1930 High flow 4.028376 nasal cannula 06/13 1919 36.7 82 18 148/85 106.1 97 Nasal cannula 06/13 1558 36.7 82 14 128/81 96.5 99 Room air Patient Weight Weight (lb): 190Weight (oz): 0.62Weight (kg): 86.183 Physical ExamGeneral appearance: alert, awake, oriented, no acute distressHead/Eyes: atraumatic, normocephalicENT: moist mucosal membranesNeck: non-tender, supple/no meningismus, no JVD, no lymphadenopathy, no masses or swellingCardiovascular: CV assessment: regular rate and rhythm, normal heart soundsRespiratory: clear to auscultation, no distressAbdomen: soft, non-tender, normal bowel soundsGenitourinary: no bladder distentionUpper extremity: UE assessment: no clubbing, no cyanosisLower extremity: LE assessment: no clubbing, no cyanosis, no edemaMusculoskeletal: full range of motionNeuro/VACUUM FILTER OPERATOR: alert, oriented X 3Skin: dry, intactPsychiatry: normal affect ResultsRadiology data:Recent Impressions:RADIOLOGY - XR CHEST 1 V 06/14 1128 Report Impression - Status: SIGNED Entered: 06/14/2019 1140 IMPRESSION: Interval development of small volume right pleuraleffusion with worsening right lower lung pneumonic infiltrate. Additional subtle multifocal infiltrates also suspected bilaterally,unchanged. SL: [id number] By: [id number] - Josias Banks M.D. Diagnosis, Assessment Plan Free Text DxA P NotesFree Text DxA P Notes:1. Non-ST elevation myocardial infarction. s/p PCI of thrombotic occlusion of the mid RCA, and mid LADcontinue optimal medical therapy- brilinta, asa, statin, bbEcho: EF 45-50% BP/HR improvedbrilinta discount card given 3. Hypertensionoptimize meds to control bpprn medications available 4. Subacute CVAper Neurologycarotid dopplers negativemonitor for arrhythmiavenous dopplers negative 5. BRENDA/CKDdiuresis as needed for Nephrology 6. PNAID consulted 7. DM ok to dc from cardiac standpointFU with Dr. Rae, outpatient at 1537 RPT #:[id number] OF REPORTPRProgress [id number]:35:00G.[id number] le for patient [id number]:38:07 HCACL 2019-06-14 15:35:00 [id number]:35:00 H [facility] ([facility])Cardiology Progress NoteREPORT#:[id number] REPORT STATUS: SignedDATE:06/14/19 TIME: 1535 PATIENT: DUSTY FRANCOIS UNIT #: [id number]#: [id number] ROOM/BED: 6606-1DOB: [birth year] AGE: 58 SEX: M ATTEND: Kyung Bedoya MDADM AUTHOR: Nicole Shay MEDICATION ADMINISTRATION PROFESSIONAL * ALL edits or amendments must be made on the electronic/computer document * SubjectiveChief Complaint:doing better Objective GeneralVS/I O:Laboratory Tests 06/14/19 0400:[Embedded Image Not Available] 06/13/19 0540:[Embedded Image Not Available]Current Medications Sig/Jean Carlos Start time LastMedication Dose Route Stop Time Status AdminFurosemide 20 MG BID 9A 5P 06/14 1700 AC PO 07/14 1659Pantoprazole 40 MG 0900 06/14 0900 AC 06/14 PO 07/14 0859 0925Furosemide 40 MG BID 06/12 2200 DC 06/13 IV 07/12 2159 204Linezolid 600 MG Q12HR 06/12 2100 AC 06/14 PO 06/19 0901 0924Metoprolol 75 MG BID 06/12 2100 AC 06/14Succinate PO 07/12 2059 0924Cefepime HCl 1 GM Q6H 06/12 0945 AC 06/14Sodium Chloride 100 ML IV 06/16 1200 0923Amlodipine 10 MG DAILY 06/12 0900 AC 06/14Besylate PO 07/06 195 0925Insulin Glargine 5 UNIT Q12HR 06/11 2100 AC 06/14 SUBQ 0923Albuterol/Ipratro 3 ML RTQ6H 06/08 2100 AC ium INH 07/08 2059 0843Albuterol/Ipratro 3 ML RTQ2H PRN PRN 06/08 1845 AC 06/11pium INH 07/08 1844 2350Bisacodyl 10 MG DAILY PRN PRN 06/08 1015 AC PO 07/08 1014Heparin Sodium 5,000 UNIT Q12HR 06/07 1300 AC 06/14 SUBQ 07/07 2059 0925Hydralazine HCl 10 MG Q6H PRN PRN 06/06 2000 AC 06/09 IV 07/06 1959 0841Sodium Chloride 10 ML ASDIR PRN 06/06 0430 AC IV 07/06 0429Promethazine HCl 25 MG Q8H PRN PRN 06/06 0030 AC 06/08 IM 07/06 0029 0748Diphenhydramine 25 MG Q6H PRN PRN 06/05 194 AC 06/05HCl PO 07/05 194 1956Benzonatate 100 MG Q6H PRN PRN 06/05 1630 AC 06/05 PO 07/05 162 2159Aspirin 81 MG DAILY 06/05 0900 AC 06/14 PO 07/05 0859 0925Dextrose/Water 125 ML ASDIR PRN 06/05 0815 AC IV 07/05 0814Dextrose/Water 250 ML ASDIR PRN 06/05 0815 AC IV 07/05 0814Glucagon 1 MG ASDIR PRN 06/05 0815 AC IM 07/05 0814Al Hydrox/Mg 30 ML Q4H PRN PRN 06/04 2100 ACHydrox/Simethicone PO 07/04 2059Docusate Sodium 100 MG BID PRN PRN 06/04 2100 AC 06/08 PO 07/04 2059 0848Ergocalciferol 50,000 INTL.UNITS Q7D 06/04 2100 CKD 06/11 PO 07/04 2059 2015Hydrocodone 1 TAB Q6H PRN PRN 06/04 2100 ACBitart/Acetaminophen PO 07/04 2059Insulin Human 0 AC HS 06/04 2100 AC 06/14Lispro SUBQ 07/04 2059 1213Lactulose 20 GM Q6H PRN PRN 06/04 2100 AC 06/12 PO 07/04 2059 2216Ondansetron HCl 4 MG Q4H PRN PRN 06/04 2100 AC 06/07 IV 07/04 2059 0635Potassium 40 MEQ DAILY PRN PRN 06/04 2100 ACChloride PO 07/04 2059Ticagrelor 90 MG BID 06/04 2100 AC 06/14 PO 07/04 2059 0924Zolpidem Tartrate 5 MG BEDTIME PRN PRN 06/04 2100 AC 06/13 PO 07/04cetaminophen 650 MG Q6H PRN PRN 06/04 141 AC 06/10 PO 07/04 1414 0834Atropine Sulfate 0.5 MG ASDIR PRN 06/04 1415 AC IV 07/04 1414Atorvastatin 80 MG DAILY 1700 06/04 0415 AC 06/13Calcium PO 07/04 0414 1728Morphine Sulfate 2 MG Q3H PRN PRN 06/04 041 AC IV 06/18 0414 24 hour I O ending at 0700: 06/14 0700 06/13 1900 Intake Total Output Total Balance Patient 86.183 kg Weight Vital Signs: Date Time Temp Pulse Resp B/P B/P Pulse O2 O2 Flow FiO2 Mean Ox Delivery Rate 06/14 1028 36.3 84 14 129/73 91.9 98 Room air 06/14 0735 36.7 84 14 136/77 96.6 93 Room air 06/14 0726 Nasal 3.128807 cannula 06/14 0402 37.0 80 16 138/79 98.8 94 Nasal cannula 06/13 2340 36.9 86 16 123/70 87.9 90 Nasal cannula 06/13 2244 95 High flow 6.690073 nasal cannula 06/13 1930 High flow 4.266795 nasal cannula 06/13 1919 36.7 82 18 148/85 106.1 97 Nasal cannula 06/13 1558 36.7 82 14 128/81 96.5 99 Room air Patient Weight Weight (lb): 190Weight (oz): 0.62Weight (kg): 86.183 Physical ExamGeneral appearance: alert, awake, oriented, no acute distressHead/Eyes: atraumatic, normocephalicENT: moist mucosal membranesNeck: non-tender, supple/no meningismus, no JVD, no lymphadenopathy, no masses or swellingCardiovascular: CV assessment: regular rate and rhythm, normal heart soundsRespiratory: clear to auscultation, no distressAbdomen: soft, non-tender, normal bowel soundsGenitourinary: no bladder distentionUpper extremity: UE assessment: no clubbing, no cyanosisLower extremity: LE assessment: no clubbing, no cyanosis, no edemaMusculoskeletal: full range of motionNeuro/VACUUM FILTER OPERATOR: alert, oriented X 3Skin: dry, intactPsychiatry: normal affect ResultsRadiology data:Recent Impressions:RADIOLOGY - XR CHEST 1 V 06/14 1128 Report Impression - Status: SIGNED Entered: 06/14/2019 1140 IMPRESSION: Interval development of small volume right pleuraleffusion with worsening right lower lung pneumonic infiltrate. Additional subtle multifocal infiltrates also suspected bilaterally,unchanged. SL: [id number] By: Ann - Josias Banks M.D. Diagnosis, Assessment Plan Free Text DxA P NotesFree Text DxA P Notes:1. Non-ST elevation myocardial infarction. s/p PCI of thrombotic occlusion of the mid RCA, and mid LADcontinue optimal medical therapy- brilinta, asa, statin, bbEcho: EF 45-50% BP/HR improvedbrilinta discount card given 3. Hypertensionoptimize meds to control bpprn medications available 4. Subacute CVAper Neurologycarotid dopplers negativemonitor for arrhythmiavenous dopplers negative 5. BRENDA/CKDdiuresis as needed for Nephrology 6. PNAID consulted 7. DM ok to dc from cardiac standpointFU with Dr. Rae, outpatient at 1537 at 1247 RPT #:[id number] OF REPORTPRProgress [id number]:35:00G.[id number] for patient [id number]:47:48 [facility] 2019-06-14 12:43:00 [id number]:43:00 H [facility] ([facility])Pulmonology Progress NoteREPORT#:[id number] REPORT STATUS: SignedDATE:06/14/19 TIME: 1243 PATIENT: DUSTY FRANCOIS UNIT #: [id number]#: [id number] RO[address]DOB: [birth year] AGE: 58 SEX: M ATTEND: Kyung Bedoya MDADM AUTHOR: Antoine Lee MD * ALL edits or amendments must be made on the electronic/computer document * SubjectiveChief Complaint:reviewedwants to go homeambulating no SOBO2 3LNCBP and HR stable. Review of Systems ROSConstitutional:Denies: fatigue, generalized weakness. Respiratory:Reports: pneumonia. Denies: SORIANO (dyspnea on exertion), pleuritic pain, SOB, wheezing. Cardiovascular:Denies: edema, orthopnea. GI:Reports: abdominal pain, constipation, nausea. Denies: GERD, hiatal hernia. :Denies: flank pain, frequency, hematuria. Musculoskeletal:Denies: extremity swelling, joint pain. Endocrine:Denies: polydipsia, polyphagia. Neuro:Denies: dizziness, focal weakness, lightheaded. Objective Physical ExamVS/I O:Last Documented: Result Date Time Pulse Ox 98 06/14 1028 B/P 129/73 06/14 1028 B/P Mean 91.9 06/14 1028 O2 Delivery Room air 06/14 1028 Temp 36.3 06/14 1028 Pulse 84 06/14 1028 Resp 14 06/14 1028 O2 Flow Rate 3.891919 06/14 0726 FiO2 70 06/06 0215 24 hour I O ending at 0700: 06/14 0700 06/13 1900 Intake Total Output Total Balance Patient 86.183 kg Weight Patient Weight Weight (lb): 190Weight (oz): 0.62Weight (kg): 86.183 Medications:Active Meds + DC'd Last 24 HrsFurosemide 20 MG BID 9A 5P PO Pantoprazole 40 MG 0900 PO Furosemide 40 MG BID IV (DC) Linezolid 600 MG Q12HR PO Metoprolol Succinate 75 MG BID PO Cefepime HCl 1 GM Q6H IV Sodium Chloride 100 MLAmlodipine Besylate 10 MG DAILY PO Insulin Glargine 5 UNIT Q12HR SUBQ Albuterol/Ipratropium 3 ML RTQ6H INH Albuterol/Ipratropium 3 ML RTQ2H PRN PRN INH Bisacodyl 10 MG DAILY PRN PRN PO Heparin Sodium 5,000 UNIT Q12HR SUBQ Hydralazine HCl 10 MG Q6H PRN PRN IV Sodium Chloride 10 ML ASDIR PRN IV Pantoprazole Sodium 40 MG DAILY IV (DC) Promethazine HCl 25 MG Q8H PRN PRN IM Diphenhydramine HCl 25 MG Q6H PRN PRN PO Benzonatate 100 MG Q6H PRN PRN PO Aspirin 81 MG DAILY PO Dextrose/Water 125 ML ASDIR PRN IV Dextrose/Water 250 ML ASDIR PRN IV Glucagon 1 MG ASDIR PRN IM Al Hydrox/Mg Hydrox/Simethicone 30 ML Q4H PRN PRN PO Docusate Sodium 100 MG BID PRN PRN PO Ergocalciferol 50,000 INTL.UNITS Q7D PO (CKD) Hydrocodone Bitart/Acetaminophen 1 TAB Q6H PRN PRN PO Insulin Human Lispro 0 AC HS SUBQ Lactulose 20 GM Q6H PRN PRN PO Ondansetron HCl 4 MG Q4H PRN PRN IV Potassium Chloride 40 MEQ DAILY PRN PRN PO Ticagrelor 90 MG BID PO Zolpidem Tartrate 5 MG BEDTIME PRN PRN PO Acetaminophen 650 MG Q6H PRN PRN PO Atropine Sulfate 0.5 MG ASDIR PRN IV Atorvastatin Calcium 80 MG DAILY 1700 PO Morphine Sulfate 2 MG Q3H PRN PRN IV General appearance: alert, awakeHead/eyes: PERRLANeck: no JVDCardiovascular: normal heart sounds, normal S1/L0Dkhlrhaxahu/chest: on oxygen, symmetric expansion, no distressAbdomen: soft, non-tenderGenitourinary: no wallace, no bladder distentionMusculoskeletal: no muscle spasmNeuro/VACUUM FILTER OPERATOR: alert, oriented X 3, CNII-XII intactSkin: warm, dry, intactPsychiatry: normal mood ResultsFindings/Data:Laboratory Tests 06/14/19 0400:[Embedded Image Not Available] 06/13/19 0540:[Embedded Image Not Available]Laboratory Tests 06/14 06/14 06/14 06/13 06/13 1025 0734 0400 2023 1555 Chemistry Sodium (134 - 147 mEq/L) 140 Potassium (3.4 - 5.0 mEq/L) 4.3 Chloride (100 - 108 mEq/L) 108 Carbon Dioxide (21 - 33 mEq/L) 26 Anion Gap (0 - 20) 10 BUN (7 - 18 mg/dL) 25 H Creatinine (0.6 - 1.3 mg/dL) 2.0 H Glomerular Filtr Rate (90 - 95) 42.0 L Glucose (70 - 110 mg/dL) 157 H POC Glucose (70 - 110 MG/DL) 243 H 227 H 181 H 163 H Calcium (8.0 - 10.5 mg/dL) 8.4 Phosphorus (2.5 - 4.9 mg/dL) 3.7 Magnesium (1.8 - 2.4 mg/dL) 2.20 Total Bilirubin (0.0 - 1.0 mg/dL) < 0.10 AST (15 - 37 IUnit/L) 69 H ALT (15 - 65 IUnit/L) 46 Total Alk Phosphatase (20 - 125 IUnit/L) 61 Total Protein (6.4 - 8.2 g/dL) 5.7 L Albumin (3.4 - 5.0 g/dL) 1.60 L Laboratory Tests 06/14 0400 Hematology WBC (4.5 - 11.0 x10 3/uL) 8.00 RBC (4.00 - 5.60 x10 6/uL) 2.70 L Hgb (12.5 - 16.9 g/dL) 7.3 L Hct (37.5 - 50.7 %) 23.5 L MCV (81.0 - 99.0 fL) 87.0 MCH (27.0 - 33.0 pg) 27.0 MCHC (33.0 - 37.0 g/dL) 31.1 L RDW (11.5 - 14.5 %) 13.6 Plt Count (150 - 400 x10 3/uL) 429 H MPV (7.0 - 9.0 fL) 10.1 H Neut % (Auto) (56.0 - 77.0 %) 66.4 Lymph % (Auto) (14.0 - 32.0 %) 18.0 [place]land % (Auto) (4.8 - 9.0 %) 9.4 H Eos % (Auto) (0.3 - 3.7 %) 5.4 H Baso % (Auto) (0.0 - 2.0 %) 0.3 Neut # (Auto) (2.0 - 7.6 x10 3/uL) 5.32 Lymph # (Auto) (1.0 - 3.8 x10 3/uL) 1.44 [place]land # (Auto) (0.1 - 0.8 x10 3/uL) 0.75 Eos # (Auto) (0.0 - 0.2 x10 3/uL) 0.43 H Baso # (Auto) (0.0 - 0.2 x10 3/uL) 0.02 Abs Immat Gran (auto) (0.00 - 0.03 x10 3/uL) 0.04 H Add Manual Diff NO Immature Gran % (0.0 - 2.0 %) 0.5 Nucleated RBC % (0 - 0 %) 0.0 Nucleated RBCs # (Man) (0.0 - 0.1 x10 3/uL) 0.00 Radiology data:Recent Impressions:RADIOLOGY - XR CHEST 1 V 06/14 1128 Report Impression - Status: SIGNED Entered: 06/14/2019 1140 IMPRESSION: Interval development of small volume right pleuraleffusion with worsening right lower lung pneumonic infiltrate. Additional subtle multifocal infiltrates also suspected bilaterally,unchanged. SL: [id number] By: [email or web address] - Josias Banks M.D. Results: labs reviewed, vital signs stable, rhythm personally rev'd, x-ray personally reviewed, current med profile rev'd Treatment Prophylaxis Treatment ProphylaxisOxygen: nasal cannula Diagnosis, Assessment PlanHospital course to date:Assessment and Plan: - Acute hypoxic respiratory failure (resolved) secondary to pneumonia.- Multifocal PNA, right and Left lobe, Nosocomial PNA. treated- Hypoxia persistent (3LNC)- Shortness of breath (improved) and hypoxia secondary to pneumonia and fluid overload.- Fluid overload.- Acute kidney injury secondary to meds.- Hyperkalemia.- Subacute infarction/cerebrovascular accident.- History of hypertension.- History of diabetes type 2.- History of hyperlipidemia.- Metabolic acidosis. - Venous doppler study negative.- Respiratory viral panel neg, strep pneumo ag neg PLAN: Floorpulmonary toilet (incentive spirometry, nebulizer treatment, and O2 support).outpt PSGwean O2 / home O2 eval Statin and aspirin per neurologist SCD for DVT prophylaxis.Glycemic controlMonitor.Increase activity DC planning with home O2 (and wean as outpt)dw CMs, PT and RNProblem List/A P: 1. Right parietal lobe lesion 2. CVA (cerebrovascular accident) 3. Cellulitis of right knee 4. Syncope 5. PAD (peripheral artery disease) 6. Acute on chronic renal failure 7. Diabetic nephropathy 8. Diabetic neuropathy at 1246 RPT #:[id number] OF REPORTPRProgress [id number]:43:00G.[id number] le for patient [id number]:47:11 [facility] 2019-06-14 12:31:00 [id number]:31:00 [facility] Progress NoteREPORT#:[id number] REPORT STATUS: SignedDATE:06/14/19 TIME: 1231 PATIENT: DUSTY FRANCOIS UNIT #: [id number]#: [id number] RO[address]DOB: [birth year] AGE: 58 SEX: M ATTEND: Kyung Bedoya MDADM AUTHOR: Marbella Haley MD * ALL edits or amendments must be made on the electronic/computer document * SubjectiveHPI:patient doing well Objective Physical ExamVS:Last Documented: Result Date Time Pulse Ox 98 06/14 1028 B/P 129/73 06/14 1028 B/P Mean 91.9 06/14 1028 O2 Delivery Room air 06/14 1028 Temp 36.3 06/14 1028 Pulse 84 06/14 1028 Resp 14 06/14 1028 O2 Flow Rate 3.413474 06/14 0726 FiO2 70 06/06 0215 Patient Weight Weight (lb): 190Weight (oz): 0.62Weight (kg): 86.183 Medications:Current Home MedicationsERGOCALCIFEROL (VITAMIN D2) 50,000 UNITS PO Q7D HYDROcodone/APAP (NORCO 10/325) 1 TAB PO Q6H PRN PRN PAIN ROSUVASTATIN (CRESTOR) 40 MG PO BEDTIME INSULIN DETEMIR (LEVEMIR) 10 UNITS SUBQ Q12HR METOPROLOL TARTRATE (LOPRESSOR) 25 MG PO DAILY LISINOPRIL (ZESTRIL) 20 MG PO DAILY Active Meds + DC'd Last 24 HrsFurosemide 20 MG BID 9A 5P PO Pantoprazole 40 MG 0900 PO Furosemide 40 MG BID IV (DC) Linezolid 600 MG Q12HR PO Metoprolol Succinate 75 MG BID PO Cefepime HCl 1 GM Q6H IV Sodium Chloride 100 MLAmlodipine Besylate 10 MG DAILY PO Insulin Glargine 5 UNIT Q12HR SUBQ Albuterol/Ipratropium 3 ML RTQ6H INH Albuterol/Ipratropium 3 ML RTQ2H PRN PRN INH Bisacodyl 10 MG DAILY PRN PRN PO Heparin Sodium 5,000 UNIT Q12HR SUBQ Hydralazine HCl 10 MG Q6H PRN PRN IV Sodium Chloride 10 ML ASDIR PRN IV Pantoprazole Sodium 40 MG DAILY IV (DC) Promethazine HCl 25 MG Q8H PRN PRN IM Diphenhydramine HCl 25 MG Q6H PRN PRN PO Benzonatate 100 MG Q6H PRN PRN PO Aspirin 81 MG DAILY PO Dextrose/Water 125 ML ASDIR PRN IV Dextrose/Water 250 ML ASDIR PRN IV Glucagon 1 MG ASDIR PRN IM Al Hydrox/Mg Hydrox/Simethicone 30 ML Q4H PRN PRN PO Docusate Sodium 100 MG BID PRN PRN PO Ergocalciferol 50,000 INTL.UNITS Q7D PO (CKD) Hydrocodone Bitart/Acetaminophen 1 TAB Q6H PRN PRN PO Insulin Human Lispro 0 AC HS SUBQ Lactulose 20 GM Q6H PRN PRN PO Ondansetron HCl 4 MG Q4H PRN PRN IV Potassium Chloride 40 MEQ DAILY PRN PRN PO Ticagrelor 90 MG BID PO Zolpidem Tartrate 5 MG BEDTIME PRN PRN PO Acetaminophen 650 MG Q6H PRN PRN PO Atropine Sulfate 0.5 MG ASDIR PRN IV Atorvastatin Calcium 80 MG DAILY 1700 PO Morphine Sulfate 2 MG Q3H PRN PRN IV General appearance: alertHead/Eyes: atraumaticENT: moist mucosal membranesNeck: full range of motion, non-tender, supple/no meningismusCardiovascular: regular rate and rhythmRespiratory: aerating well, clear to auscultationAbdomen: non-tenderExtremities: moves allMusculoskeletal: normal inspectionNeuro/VACUUM FILTER OPERATOR: alert, oriented X 4, normal speech, EOMI, PERRL, CN II-XII intact, reflexes equal bilat, normal reflexes, no motor deficits, no sensory deficits, no cerebellar deficits Diagnosis, Assessment PlanProblem List/A P: 1. Syncope 2. CVA (cerebrovascular accident) Additional comments:patient to be on asa and statinawaiting completion of cardiac workup if arrythmia initaite anticoagulationcarotids are reasurring cardiac eval and workup in progresson appropriate preventative therapy from neuro perspective---doing welloutpt follow up at 1232 RPT #:[id number] OF REPORTPRProgress [id number]:31:00G.[id number] le for patient [id number]:32:38 [facility] 2019-06-14 06:55:00 [id number]:55:00 H [facility] ([facility])Nephrology Progress NoteREPORT#:[id number] REPORT STATUS: SignedDATE:06/14/19 TIME: 0655 PATIENT: DUSTY FRANCOIS UNIT #: [id number]#: [id number] [address] [birth year] AGE: 58 SEX: M ATTEND: Kyung Bedoya AUTHOR: Gideon Teran MD * ALL edits or amendments must be made on the electronic/computer document * SubjectiveChief Complaint:Syncope/NSTEMI/AKIPatient reports:No: complaints. Comments:Patient seen and evaluated, discussed with care team, HPI no change from initial, feels okay Review of SystemsConstitutional:Yes fatigue, No chills, No feverSkin:No abrasion, No bruisingAllergy/Immun:No hives, No itchingEyes:No redness, No dischargeENT:No ear drainage, No ear ringingRespiratory:Yes non productive cough, Yes SOBCardiovascular:No palpitationsGI:Yes nausea, Yes vomiting, No abdominal pain Objective GeneralVS/I O:Vital Signs: Date Time Temp Pulse Resp B/P B/P Pulse O2 O2 Flow FiO2 Mean Ox Delivery Rate 06/14 0402 37.0 80 16 138/79 98.8 94 Nasal cannula 06/13 2340 36.9 86 16 123/70 87.9 90 Nasal cannula 06/13 2244 95 High flow 6.810341 nasal cannula 06/13 1930 High flow 4.562248 nasal cannula 06/13 1919 36.7 82 18 148/85 106.1 97 Nasal cannula 06/13 1558 36.7 82 14 128/81 96.5 99 Room air 06/13 0826 High flow 7.922928 nasal cannula 06/13 0750 96 Nasal 6.928300 cannula 06/13 0708 37.1 82 16 143/85 104.6 99 Room air 24 hour I O ending at 0700: 06/14 0700 06/13 1900 Intake Total Output Total Balance Patient 86.183 kg Weight MedicationsActive Meds + DC'd Last 24 HrsPantoprazole 40 MG 0900 PO Furosemide 40 MG BID IV Linezolid 600 MG Q12HR PO Metoprolol Succinate 75 MG BID PO Cefepime HCl 1 GM Q6H IV Sodium Chloride 100 MLAmlodipine Besylate 10 MG DAILY PO Insulin Glargine 5 UNIT Q12HR SUBQ Albuterol/Ipratropium 3 ML RTQ6H INH Albuterol/Ipratropium 3 ML RTQ2H PRN PRN INH Bisacodyl 10 MG DAILY PRN PRN PO Heparin Sodium 5,000 UNIT Q12HR SUBQ Hydralazine HCl 10 MG Q6H PRN PRN IV Metoclopramide HCl 10 MG Q8H IV (DC) Sodium Chloride 10 ML ASDIR PRN IV Pantoprazole Sodium 40 MG DAILY IV (DC) Promethazine HCl 25 MG Q8H PRN PRN IM Diphenhydramine HCl 25 MG Q6H PRN PRN PO Benzonatate 100 MG Q6H PRN PRN PO Aspirin 81 MG DAILY PO Dextrose/Water 125 ML ASDIR PRN IV Dextrose/Water 250 ML ASDIR PRN IV Glucagon 1 MG ASDIR PRN IM Al Hydrox/Mg Hydrox/Simethicone 30 ML Q4H PRN PRN PO Docusate Sodium 100 MG BID PRN PRN PO Ergocalciferol 50,000 INTL.UNITS Q7D PO (CKD) Hydrocodone Bitart/Acetaminophen 1 TAB Q6H PRN PRN PO Insulin Human Lispro 0 AC HS SUBQ Lactulose 20 GM Q6H PRN PRN PO Ondansetron HCl 4 MG Q4H PRN PRN IV Potassium Chloride 40 MEQ DAILY PRN PRN PO Ticagrelor 90 MG BID PO Zolpidem Tartrate 5 MG BEDTIME PRN PRN PO Acetaminophen 650 MG Q6H PRN PRN PO Atropine Sulfate 0.5 MG ASDIR PRN IV Atorvastatin Calcium 80 MG DAILY 1700 PO Morphine Sulfate 2 MG Q3H PRN PRN IV Physical ExamGeneral appearance: alert, no acute distressHead/eyes: atraumatic, normocephalicENT: moist mucous membranes, normal noseNeck: supple/no meningismusCardiovascular: normal heart sounds, no rubRespiratory: aerating well, no distressAbdomen: non-tender, softGenitourinary: no flank pain, no foleyExtremities: non-tender, no edemaMusculoskeletal: no tenderenessNeuro/VACUUM FILTER OPERATOR: alert, normal speechSkin: dry, intact ResultsFindings/Data:Laboratory Tests 06/13 06/13 06/13 06/13 06/12 2023 1555 0705 0540 203 Chemistry Sodium (134 - 147 mEq/L) 141 Potassium (3.4 - 5.0 mEq/L) 4.2 Chloride (100 - 108 mEq/L) 107 Carbon Dioxide (21 - 33 mEq/L) 26 Anion Gap (0 - 20) 12 BUN (7 - 18 mg/dL) 22 H Creatinine (0.6 - 1.3 mg/dL) 1.8 H Glomerular Filtr Rate (90 - 95) 47.5 L Glucose (70 - 110 mg/dL) 144 H POC Glucose (70 - 110 MG/DL) 181 H 163 H 125 H 134 H Calcium (8.0 - 10.5 mg/dL) 8.5 Phosphorus (2.5 - 4.9 mg/dL) 3.1 Magnesium (1.8 - 2.4 mg/dL) 2.30 06/12 06/12 06/12 06/12 06/11 1625 1031 0726 0528 1944 Chemistry Sodium (134 - 147 mEq/L) 142 Potassium (3.4 - 5.0 mEq/L) 4.0 Chloride (100 - 108 mEq/L) 107 Carbon Dioxide (21 - 33 mEq/L) 30 Anion Gap (0 - 20) 9 BUN (7 - 18 mg/dL) 19 H Creatinine (0.6 - 1.3 mg/dL) 1.7 H Glomerular Filtr Rate (90 - 95) 50.7 L Glucose (70 - 110 mg/dL) 158 H POC Glucose (70 - 110 MG/DL) 95 230 H 132 H 157 H Calcium (8.0 - 10.5 mg/dL) 8.7 Phosphorus (2.5 - 4.9 mg/dL) 3.0 Magnesium (1.8 - 2.4 mg/dL) 2.40 06/11 06/11 06/11 1622 1121 0735 Chemistry POC Glucose (70 - 110 MG/DL) 53 L 188 H 125 H Laboratory Tests 06/13 06/12 0540 0528 Hematology WBC (4.5 - 11.0 x10 3/uL) 10.24 10.36 RBC (4.00 - 5.60 x10 6/uL) 2.93 L 3.12 L Hgb (12.5 - 16.9 g/dL) 7.9 L 8.5 L Hct (37.5 - 50.7 %) 25.3 L 27.0 L MCV (81.0 - 99.0 fL) 86.3 86.5 MCH (27.0 - 33.0 pg) 27.0 27.2 MCHC (33.0 - 37.0 g/dL) 31.2 L 31.5 L RDW (11.5 - 14.5 %) 13.6 13.6 Plt Count (150 - 400 x10 3/uL) 498 H 452 H MPV (7.0 - 9.0 fL) 10.2 H 9.6 H Neut % (Auto) (56.0 - 77.0 %) 73.2 71.8 Lymph % (Auto) (14.0 - 32.0 %) 12.4 L 14.4 [place]land % (Auto) (4.8 - 9.0 %) 10.1 H 9.2 H Eos % (Auto) (0.3 - 3.7 %) 3.5 4.0 H Baso % (Auto) (0.0 - 2.0 %) 0.1 0.1 Neut # (Auto) (2.0 - 7.6 x10 3/uL) 7.50 7.45 Lymph # (Auto) (1.0 - 3.8 x10 3/uL) 1.27 1.49 [place]land # (Auto) (0.1 - 0.8 x10 3/uL) 1.03 H 0.95 H Eos # (Auto) (0.0 - 0.2 x10 3/uL) 0.36 H 0.41 H Baso # (Auto) (0.0 - 0.2 x10 3/uL) 0.01 0.01 Abs Immat Gran (auto) (0.00 - 0.03 x10 3/uL) 0.07 H 0.05 H Add Manual Diff NO NO Immature Gran % (0.0 - 2.0 %) 0.7 0.5 Nucleated RBC % (0 - 0 %) 0.0 0.0 Nucleated RBCs # (Man) (0.0 - 0.1 x10 3/uL) 0.00 0.00 Recent Impressions:ULTRASOUND - DUP VEIN ALEJANDRA 06/13 1222 Report Impression - Status: SIGNED Entered: 06/13/2019 1227 IMPRESSION:1. No deep venous thrombosis identified in the bilateral lowerextremities. SL: [id number] By: [email or web address] Veronica Anne M.D. Laboratory Tests 06/13 06/13 06/13 8305 5360 0746 Chemistry POC Glucose (70 - 110 MG/DL) 181 H 163 H 125 H Diagnosis, Assessment PlanFree Text A P:Patient seen and evaluated, discussed with care team, Images and laboratory reviewedHistory of HTN: metoprolol: Monitor BP closely and adjust medications as neededDM: insulin: Monitor BS closely and adjust medications as neededHLD: LipitorCAD s/p NSTEMI , s/p LHC and LAD/LCX PCI: ASA/TicagrelorPNA: Rocephin/AzithromaxSOB with elevated BNP, he has no LE edema, his SOB could be mainly related to his PNA, he is nauseated and eating, would hold off diuretcis if possibleAKI felisha related to CINHis baseline creat 1.2 in Sep 2018, eGFR 80 , felisha had some progression since then, check UA, urine P/creat ratio and renal USAcidosis: pH this AM 7.287 Creat 3.6 stable, K WNL4.3, HCO3 22 better, renal US WNL7 Creat better 2.6, electrolytes acceptable, HCO3 23, continue IVF06/09/19 Creat 2.1 better, HCO3 27, Hgb 9, WBC 8.397/ Creat 1.7 better, HCO3 29 will d/c IVF , other electrolyts acceptable, Hgb 7.97/ Creat 1.7 stable since yesterday, electrolytes acceptable06/12/19 Creat 1.7 stable, Electrolytes acceptable, Hgb 8.5, BP elevated increaseNorvasc to 10 mg daily06/13/19 started on IV Lasix for LE edema, Creat 1.8 up some, electrolytes acceptable06/14/19 Creat 2 up felisha related to diuretics, electrolytes acceptable, Hgb 7.3trending down ? d/c IV Lasix and start oral LAsix 20 BID at 0914 RPT #:[id number] OF REPORTPRProgress [id number]:00G.[id number] le for patient [id number]:14:39 HCACL 2019-06-13 18:13:00 [id number]:13:00 [facility] ([facility])Pulmonology Progress NoteREPORT#:[id number] REPORT STATUS: SignedDATE:06/13/19 TIME: 1812 PATIENT: DUSTY FRANCOIS UNIT #: [id number]#: [id number] [address] [birth year] AGE: 58 SEX: M ATTEND: Kyung Bedoya [facility] AUTHOR: Antoine Lee MD * ALL edits or amendments must be made on the electronic/computer document * SubjectiveChief Complaint:reviewedtransferred from ICUdaughter asking about DC home ?Breathing is stable.Denies any N/V/D.Denies any Cp, chills, SOBBP and HR stable. Review of Systems ROSConstitutional:fatigue, generalized weakness. Respiratory:Reports: pneumonia. Denies: SORIANO (dyspnea on exertion), pleuritic pain, SOB, wheezing. Cardiovascular:Denies: edema, orthopnea. GI:Reports: abdominal pain, constipation, nausea. Denies: GERD, hiatal hernia. :Denies: flank pain, frequency, hematuria. Musculoskeletal:Denies: extremity swelling, joint pain. Endocrine:Denies: polydipsia, polyphagia. Neuro:Denies: dizziness, focal weakness, lightheaded. Objective Physical ExamVS/I O:Last Documented: Result Date Time Pulse Ox 99 06/13 1558 B/P 128/81 06/13 1558 B/P Mean 96.5 06/13 1558 O2 Delivery Room air 06/13 1558 Temp 36.7 06/13 1558 Pulse 82 06/13 1558 Resp 14 06/13 1558 O2 Flow Rate 7.026782 06/13 0826 FiO2 70 06/06 0215 24 hour I O ending at 0700: 06/13 0700 06/12 1900 Intake Total 240 Output Total Balance 240 Intake, Oral 240 Number Voids 3 Patient Weight Weight (lb): 190Weight (oz): 0.62Weight (kg): 86.183 Medications:Active Meds + DC'd Last 24 HrsPantoprazole 40 MG 0900 PO Furosemide 40 MG BID IV Linezolid 600 MG Q12HR PO Metoprolol Succinate 75 MG BID PO Cefepime HCl 1 GM Q6H IV Sodium Chloride 100 MLAmlodipine Besylate 10 MG DAILY PO Insulin Glargine 5 UNIT Q12HR SUBQ Albuterol/Ipratropium 3 ML RTQ6H INH Albuterol/Ipratropium 3 ML RTQ2H PRN PRN INH Bisacodyl 10 MG DAILY PRN PRN PO Heparin Sodium 5,000 UNIT Q12HR SUBQ Hydralazine HCl 10 MG Q6H PRN PRN IV Metoclopramide HCl 10 MG Q8H IV (DC) Sodium Chloride 10 ML ASDIR PRN IV Pantoprazole Sodium 40 MG DAILY IV (DC) Promethazine HCl 25 MG Q8H PRN PRN IM Diphenhydramine HCl 25 MG Q6H PRN PRN PO Benzonatate 100 MG Q6H PRN PRN PO Aspirin 81 MG DAILY PO Dextrose/Water 125 ML ASDIR PRN IV Dextrose/Water 250 ML ASDIR PRN IV Glucagon 1 MG ASDIR PRN IM Al Hydrox/Mg Hydrox/Simethicone 30 ML Q4H PRN PRN PO Docusate Sodium 100 MG BID PRN PRN PO Ergocalciferol 50,000 INTL.UNITS Q7D PO (CKD) Hydrocodone Bitart/Acetaminophen 1 TAB Q6H PRN PRN PO Insulin Human Lispro 0 AC HS SUBQ Lactulose 20 GM Q6H PRN PRN PO Ondansetron HCl 4 MG Q4H PRN PRN IV Potassium Chloride 40 MEQ DAILY PRN PRN PO Ticagrelor 90 MG BID PO Zolpidem Tartrate 5 MG BEDTIME PRN PRN PO Acetaminophen 650 MG Q6H PRN PRN PO Atropine Sulfate 0.5 MG ASDIR PRN IV Atorvastatin Calcium 80 MG DAILY 1700 PO Morphine Sulfate 2 MG Q3H PRN PRN IV General appearance: alert, awake, no acute distress, no respiratory distressHead/eyes: PERRLANeck: no JVDCardiovascular: normal heart sounds, normal S1/Z8Bbmkavaewbb/chest: on oxygen, symmetric expansion, no distressAbdomen: soft, non-tenderGenitourinary: no wallace, no bladder distentionMusculoskeletal: no muscle spasmNeuro/VACUUM FILTER OPERATOR: alert, oriented X 3, CNII-XII intactSkin: warm, dry, intactPsychiatry: normal mood ResultsFindings/Data:Laboratory Tests 06/13/19 0540:[Embedded Image Not Available] 06/12/1928:[Embedded Image Not Available]Laboratory Tests 06/13 0540 2 Chemistry Sodium (134 - 147 mEq/L) 141 Potassium (3.4 - 5.0 mEq/L) 4.2 Chloride (100 - 108 mEq/L) 107 Carbon Dioxide (21 - 33 mEq/L) 26 Anion Gap (0 - 20) 12 BUN (7 - 18 mg/dL) 22 H Creatinine (0.6 - 1.3 mg/dL) 1.8 H Glomerular Filtr Rate (90 - 95) 47.5 L Glucose (70 - 110 mg/dL) 144 H POC Glucose (70 - 110 MG/DL) 125 H 134 H Calcium (8.0 - 10.5 mg/dL) 8.5 Phosphorus (2.5 - 4.9 mg/dL) 3.1 Magnesium (1.8 - 2.4 mg/dL) 2.30 Laboratory Tests 06/13 0540 Hematology WBC (4.5 - 11.0 x10 3/uL) 10.24 RBC (4.00 - 5.60 x10 6/uL) 2.93 L Hgb (12.5 - 16.9 g/dL) 7.9 L Hct (37.5 - 50.7 %) 25.3 L MCV (81.0 - 99.0 fL) 86.3 MCH (27.0 - 33.0 pg) 27.0 MCHC (33.0 - 37.0 g/dL) 31.2 L RDW (11.5 - 14.5 %) 13.6 Plt Count (150 - 400 x10 3/uL) 498 H MPV (7.0 - 9.0 fL) 10.2 H Neut % (Auto) (56.0 - 77.0 %) 73.2 Lymph % (Auto) (14.0 - 32.0 %) 12.4 L [place] % (Auto) (4.8 - 9.0 %) 10.1 H Eos % (Auto) (0.3 - 3.7 %) 3.5 Baso % (Auto) (0.0 - 2.0 %) 0.1 Neut # (Auto) (2.0 - 7.6 x10 3/uL) 7.50 Lymph # (Auto) (1.0 - 3.8 x10 3/uL) 1.27 [place]land # (Auto) (0.1 - 0.8 x10 3/uL) 1.03 H Eos # (Auto) (0.0 - 0.2 x10 3/uL) 0.36 H Baso # (Auto) (0.0 - 0.2 x10 3/uL) 0.01 Abs Immat Gran (auto) (0.00 - 0.03 x10 3/uL) 0.07 H Add Manual Diff NO Immature Gran % (0.0 - 2.0 %) 0.7 Nucleated RBC % (0 - 0 %) 0.0 Nucleated RBCs # (Man) (0.0 - 0.1 x10 3/uL) 0.00 Radiology data:Recent Impressions:ULTRASOUND - DUP VEIN ALEJANDRA 06/13 1222 Report Impression - Status: SIGNED Entered: 06/13/2019 1227 IMPRESSION:1. No deep venous thrombosis identified in the bilateral lowerextremities. SL: [id number] By: [email or web address] - Amadeo Anne M.D. Results: labs reviewed, vital signs stable, rhythm personally rev'd, x-ray personally reviewed, current med profile rev'd Treatment Prophylaxis Treatment ProphylaxisOxygen: nasal cannula Diagnosis, Assessment PlanHospital course to date:Assessment and Plan: - Acute hypoxic respiratory failure (resolved) secondary to pneumonia.- Multifocal PNA, right and Left lobe, Nosocomial PNA. treated- Hypoxia persistent (6-7LNC)- Shortness of breath (improved) and hypoxia secondary to pneumonia and fluid overload.- Fluid overload.- Acute kidney injury secondary to meds.- Hyperkalemia.- Subacute infarction/cerebrovascular accident.- History of hypertension.- History of diabetes type 2.- History of hyperlipidemia.- Metabolic acidosis. - Venous doppler study negative.- Respiratory viral panel neg, strep pneumo ag neg PLAN: FloorContinue Laxatives for Constipation.pulmonary toilet (incentive spirometry, nebulizer treatment, and O2 support).outpt PSGwean O2 / home O2 eval (per RN he desaturated to 85% at rest on RA)Statin and aspirin per neurologist SCD for DVT prophylaxis.Glycemic controlMonitor.Increase activity DC planning but I don't think he is 100% ready to godw daughter, RNProblem List/A P: 1. Right parietal lobe lesion 2. CVA (cerebrovascular accident) 3. Cellulitis of right knee 4. Syncope 5. PAD (peripheral artery disease) 6. Acute on chronic renal failure 7. Diabetic nephropathy 8. Diabetic neuropathy at 1824 RPT #:[id number] OF REPORTPRProgress [id number]:13:00G.[id number] le for patient jvpoEWCUNSMKYNUGOL6992-64-69O97:24:50 HCACL 2019-06-13 18:12:00 [id number]:12:00 [facility] Prog. NoteREPORT#:[id number] REPORT STATUS: SignedDATE:06/13/19 TIME: 1811 PATIENT: DUSTY FRANCOIS UNIT #: [id number]#: [id number] [address] [birth year] AGE: 58 SEX: M ATTEND: Kyung Bedoya [facility] AUTHOR: Kyung Bedoay MD * ALL edits or amendments must be made on the electronic/computer document * SubjectiveChief Complaint:FEELING MUCH BETTERNO CHESTPAINC/O CONSTIPATION SP02 ON AMPULATION 88%Patient reports: chest pain, cough Review of SystemsConstitutional:Reports: generalized weakness. Skin:Denies: abrasion, bruising, contusion, diaphoresis, ecchymosis, itching, laceration, rash, swelling, other. Allergy/Immun:Denies: allergic reaction, anaphylaxis, hives, itching, rhinorrhea, sneezing, other. Eyes:Denies: redness, discharge, visual loss/blurred, itching, diplopia, eye pain, photophobia, swelling, other. Respiratory:Reports: productive cough (sputum), SOB. Cardiovascular:Reports: orthopnea. GI:Denies: abdominal pain, anorexia, constipation, diarrhea, dysphagia, GERD, hematemesis, hematochezia, hiatal hernia, melena, nausea, rectal pain, vomiting,other. Musculoskeletal:Denies: arthritis, extremity pain, extremity swelling, joint pain, joint swelling, lumbar pain, myalgias, neck pain, thoracic pain, other. Neuro:Reports: weakness. All systems rev neg: except as marked Objective GeneralVS/I O:Vital SignsDate Temp Pulse Resp B/P B/P Mean Pulse Ox JbV296/-06/13 98.1-99.1 82-93 14-18 128-151/77-85 96.5-107.3 94-99 Last Documented: Result Date Time Pulse Ox 99 06/13 1558 B/P 128/81 06/13 1558 B/P Mean 96.5 06/13 1558 O2 Delivery Room air 06/13 1558 Temp 98.1 06/13 1558 Pulse 82 06/13 1558 Resp 14 06/13 1558 O2 Flow Rate 7.385607 06/13 0826 FiO2 70 06/06 0215 24 hour I O ending at 0700: 06/13 0700 06/12 1900 Intake Total 240 Output Total Balance 240 Intake, Oral 240 Number Voids 3 Patient Weight Weight (lb): 190Weight (oz): 0.62Weight (kg): 86.183 Physical ExamHead/Eyes: atraumatic, EOMINeck: non-tender, supple/no meningismusCardiovascular: normal heart sounds, regular rate rhythmRespiratory: crackles, decreased breath sounds, shortness of breathAbdomen: soft, no distentionExtremities: Extremities: no edemaNeuro/VACUUM FILTER OPERATOR: alert, oriented x 3 Diagnosis, Assessment PlanProblem List/A P: 1. Right parietal lobe lesion 2. CVA (cerebrovascular accident) 3. Cellulitis of right knee 4. Syncope 5. PAD (peripheral artery disease) 6. Acute on chronic renal failure 7. Diabetic nephropathy 8. Diabetic neuropathy Free Text DxA P NotesFree Text DxA P Notes: 1. ACUTE CORONARY SYNDROME - S/P PCI TO MID CIRCUMFLEX .LAD , ON ASA ,BRILANTA ,METOPROLOL,, PLANS FOR STAGED PCT TO RCA LATER/WILL HOLD STATIN FOR MYELGIA AND ELEVATED CK FOR NOW 2,SUBACUTE CVA - NEURO FU 3.HYPOXIA DUE TO PULMO EDEMA -STARTED LASIX 4..HCAP -ON CEFIPIME /ZYVOX ,ID FU/SPO2 ON ROOM AIR 88% /RPT CXR 5.BRENDA - ON LASIX ,EXPECTED TO INCREASE , MONITOR ,HOLD IVF FOR NOW ,NEPHROLOGY EVALUATION 6.DM -UNCONCONTROLED -HBA1C 9.1 -ON LANTUS ,HUMOLOG 7.PAD 8.CONSTIPATION -ADD DULCOLUX PT/OT EXPECTED DC IN FEW DAYS at 1814 RPT #:[id number] OF REPORTPRProgress [id number]:12:00G.[id number] le for patient rpntXUIJXGRGMUAURJ3449-44-11V87:14:19 HCACL 2019-06-13 13:37:00 [id number]:37:00 H [place] [facility] ([facility])Infectious Dis. Progress NoteREPORT#:[id number] REPORT STATUS: SignedDATE:06/13/19 TIME: 1336 PATIENT: DUSTY FRANCOIS UNIT #: [id number]#: [id number] [address] [birth year] AGE: 58 SEX: M ATTEND: Kyung Bedoya [facility] AUTHOR: France Lee MD * ALL edits or amendments must be made on the electronic/computer document * SubjectiveChief Complaint:f/u HCAPPatient reports:Yes: feeling better. No: cough, diarrhea, fever, headache, nausea, shortness ofbreath, vomiting. Portions of this section were scribed by Janice Donahue on 06/13/19 at 1337 Objective GeneralVS/I O:Last Documented: Result Date Time O2 Delivery High flow nasal cannula 06/13 0826 O2 Flow Rate 7.230411 06/13 0826 Pulse Ox 96 06/13 0750 B/P 143/85 06/13 0708 B/P Mean 104.6 06/13 0708 Temp 37.1 06/13 0708 Pulse 82 06/13 0708 Resp 16 06/13 0708 FiO2 70 06/06 0215 Vital SignsDate Temp Pulse Resp B/P B/P Mean Pulse Ox BoR711/-06/13 36.7-37.3 82-93 16-19 135-151/77-85 97.4-107.3 94-99 24 hour I O ending at 0700: 06/13 0700 06/12 1900 Intake Total 240 Output Total Balance 240 Intake, Oral 240 Number Voids 3 Patient Weight Weight (lb): 190Weight (oz): 0.62Weight (kg): 86.200 Physical ExamGeneral appearance: alert, awake, orientedHead/Eyes: atraumatic, clear cornea, EOMI, normal conjunctiva/sclera, normal eyelids/periorb, normocephalic, PERRLENT: normal dentition, normal nose, normal pharynx, normal sinusNeck: full range of motion, non-tender, normal thyroid, supple/no meningismus, no bruit/NL carotids, no JVD, no masses or swelling, no lymphadenopathyCardiovascular: regular rate rhythmRespiratory: decreased breath soundsAbdomen: non-tender, soft, no distention, no guarding, no mass/organomegaly, no reboundExtremities: edema (alejandra LE), moves all, normal capillary refillNeuro/VACUUM FILTER OPERATOR: alert, oriented X 3Skin: dry, intact ResultsFindings/Data:Microbiology:06/10 50 URINE: Streptococcus pneumoniae Ag Screen - COMP Active Meds + DC'd Last 24 HrsPantoprazole 40 MG 0900 PO Furosemide 40 MG BID IV Linezolid 600 MG Q12HR PO Metoprolol Succinate 75 MG BID PO Cefepime HCl 1 GM Q6H IV Sodium Chloride 100 MLAmlodipine Besylate 10 MG DAILY PO Insulin Glargine 5 UNIT Q12HR SUBQ Albuterol/Ipratropium 3 ML RTQ6H INH Albuterol/Ipratropium 3 ML RTQ2H PRN PRN INH Bisacodyl 10 MG DAILY PRN PRN PO Heparin Sodium 5,000 UNIT Q12HR SUBQ Hydralazine HCl 10 MG Q6H PRN PRN IV Metoclopramide HCl 10 MG Q8H IV (DC) Sodium Chloride 10 ML ASDIR PRN IV Pantoprazole Sodium 40 MG DAILY IV (DC) Promethazine HCl 25 MG Q8H PRN PRN IM Diphenhydramine HCl 25 MG Q6H PRN PRN PO Benzonatate 100 MG Q6H PRN PRN PO Aspirin 81 MG DAILY PO Dextrose/Water 125 ML ASDIR PRN IV Dextrose/Water 250 ML ASDIR PRN IV Glucagon 1 MG ASDIR PRN IM Al Hydrox/Mg Hydrox/Simethicone 30 ML Q4H PRN PRN PO Docusate Sodium 100 MG BID PRN PRN PO Ergocalciferol 50,000 INTL.UNITS Q7D PO (CKD) Hydrocodone Bitart/Acetaminophen 1 TAB Q6H PRN PRN PO Insulin Human Lispro 0 AC HS SUBQ Lactulose 20 GM Q6H PRN PRN PO Ondansetron HCl 4 MG Q4H PRN PRN IV Potassium Chloride 40 MEQ DAILY PRN PRN PO Ticagrelor 90 MG BID PO Zolpidem Tartrate 5 MG BEDTIME PRN PRN PO Acetaminophen 650 MG Q6H PRN PRN PO Atropine Sulfate 0.5 MG ASDIR PRN IV Atorvastatin Calcium 80 MG DAILY 1700 PO Morphine Sulfate 2 MG Q3H PRN PRN IV Laboratory Tests 06/13 06/13 06/12 06/12 0705 0540 2032 1625 Chemistry Sodium (134 - 147 mEq/L) 141 Potassium (3.4 - 5.0 mEq/L) 4.2 Chloride (100 - 108 mEq/L) 107 Carbon Dioxide (21 - 33 mEq/L) 26 Anion Gap (0 - 20) 12 BUN (7 - 18 mg/dL) 22 H Creatinine (0.6 - 1.3 mg/dL) 1.8 H Glomerular Filtr Rate (90 - 95) 47.5 L Glucose (70 - 110 mg/dL) 144 H POC Glucose (70 - 110 MG/DL) 125 H 134 H 95 Calcium (8.0 - 10.5 mg/dL) 8.5 Phosphorus (2.5 - 4.9 mg/dL) 3.1 Magnesium (1.8 - 2.4 mg/dL) 2.30 Laboratory Tests 06/13 0540 Hematology WBC (4.5 - 11.0 x10 3/uL) 10.24 RBC (4.00 - 5.60 x10 6/uL) 2.93 L Hgb (12.5 - 16.9 g/dL) 7.9 L Hct (37.5 - 50.7 %) 25.3 L MCV (81.0 - 99.0 fL) 86.3 MCH (27.0 - 33.0 pg) 27.0 MCHC (33.0 - 37.0 g/dL) 31.2 L RDW (11.5 - 14.5 %) 13.6 Plt Count (150 - 400 x10 3/uL) 498 H MPV (7.0 - 9.0 fL) 10.2 H Neut % (Auto) (56.0 - 77.0 %) 73.2 Lymph % (Auto) (14.0 - 32.0 %) 12.4 L [place] % (Auto) (4.8 - 9.0 %) 10.1 H Eos % (Auto) (0.3 - 3.7 %) 3.5 Baso % (Auto) (0.0 - 2.0 %) 0.1 Neut # (Auto) (2.0 - 7.6 x10 3/uL) 7.50 Lymph # (Auto) (1.0 - 3.8 x10 3/uL) 1.27 [place] # (Auto) (0.1 - 0.8 x10 3/uL) 1.03 H Eos # (Auto) (0.0 - 0.2 x10 3/uL) 0.36 H Baso # (Auto) (0.0 - 0.2 x10 3/uL) 0.01 Abs Immat Gran (auto) (0.00 - 0.03 x10 3/uL) 0.07 H Add Manual Diff NO Immature Gran % (0.0 - 2.0 %) 0.7 Nucleated RBC % (0 - 0 %) 0.0 Nucleated RBCs # (Man) (0.0 - 0.1 x10 3/uL) 0.00 Radiology data:Recent Impressions:ULTRASOUND - DUP VEIN ALEJANDRA 06/13 1222 Report Impression - Status: SIGNED Entered: 06/13/2019 1227 IMPRESSION:1. No deep venous thrombosis identified in the bilateral lowerextremities. SL: [id number] By: [email or web address] Veronica Anne M.D. Portions of this section were scribed by Janice Donahue on 06/13/19 at 1337 Diagnosis, Assessment PlanProblem List/A P: 1. Community acquired pneumonia* s/p treatment with rocephin and Azihtromycin * now concerns for noscomial pneumonia:cont on Zyvox and cefepime day#5 out of 5days; * Respiratory viral panel neg, strep pneumo ag neg 2. DM2 (diabetes mellitus, type 2) 3. Diabetic neuropathy 4. Acute on chronic renal failure 5. PAD (peripheral artery disease) Free Text A P:pt can be discharged home today Follow up in cl[facility] Portions of this section were scribed by Janice Donahue on 06/13/19 at 1337 at 1844 RPT #:[id number] OF REPORTPRProgress [id number]:37:00G.[id number] le for patient libmDUWOVJZEBOLCWO7401-00-29R40:45:03 HCACL 2019-06-13 12:52:00 [id number]:52:00 H [place] [facility])Cardiology Progress NoteREPORT#:[id number] REPORT STATUS: SignedDATE:06/13/19 TIME: 1252 PATIENT: DUSTY FRANCOIS UNIT #: [id number]#: [id number] [address] [birth year] AGE: 58 SEX: M ATTEND: Kyung Bedoya [facility] AUTHOR: Nicole Shay MEDICATION ADMINISTRATION PROFESSIONAL * ALL edits or amendments must be made on the electronic/computer document * SubjectiveChief Complaint:doing better, bp improvedplans for discharge today Objective GeneralVS/I O:Laboratory Tests 06/13/19 0540:[Embedded Image Not Available] 06/12/19 0528:[Embedded Image Not Available]Current Medications Sig/Jean Carlos Start time LastMedication Dose Route Stop Time Status AdminFurosemide 40 MG BID 06/12 2200 AC 06/13 IV 07/12 2159 08Linezolid 600 MG Q12HR 06/12 2100 AC 06/13 PO 06/19 0901 0812Metoprolol 75 MG BID 06/12 2100 AC uccinate PO 07/12 2059 0813Cefepime HCl 1 GM Q6H 06/12 0945 AC 07/30Sodium Chloride 100 ML IV 06/16 1200 0813Amlodipine 10 MG DAILY 06/12 0900 AC 06/13Besylate PO 07/06 195 0812Insulin Glargine 5 UNIT Q12HR 06/11 2100 AC 06/13 SUBQ 0808Albuterol/Ipratro 3 ML RTQ6H 06/08 2100 AC 06/13pium INH 07/08 205 0749Albuterol/Ipratro 3 ML RTQ2H PRN PRN 06/08 1845 AC 06/11pium INH 07/08 1844 2350Bisacodyl 10 MG DAILY PRN PRN 06/08 1015 AC PO 07/08 1014Heparin Sodium 5,000 UNIT Q12HR 06/07 1300 AC 06/13 SUBQ 07/07 2059 0809Hydralazine HCl 10 MG Q6H PRN PRN 06/06 2000 AC 06/09 IV 07/06 1959 0841Metoclopramide 10 MG Q8H 06/06 1230 DC 06/12HCl IV 07/06 1229 1206Sodium Chloride 10 ML ASDIR PRN 06/06 0430 AC IV 07/06 0429Pantoprazole 40 MG DAILY 06/06 0429 AC odium IV 07/06 0428 0811Promethazine HCl 25 MG Q8H PRN PRN 06/06 0030 AC 06/08 IM 07/06 0029 0748Diphenhydramine 25 MG Q6H PRN PRN 06/05 1945 AC 06/05HCl PO 07/05 194 1956Benzonatate 100 MG Q6H PRN PRN 06/05 1630 AC 06/05 PO 07/05 1629 2159Aspirin 81 MG DAILY 06/05 0900 AC 06/13 PO 07/05 0859 0812Dextrose/Water 125 ML ASDIR PRN 06/05 0815 AC IV 07/05 0814Dextrose/Water 250 ML ASDIR PRN 06/05 0815 AC IV 07/05 0814Glucagon 1 MG ASDIR PRN 06/05 0815 AC IM 07/05 0814Al Hydrox/Mg 30 ML Q4H PRN PRN 06/04 2100 ACHydrox/Simethicone PO 07/04 205Docusate Sodium 100 MG BID PRN PRN 06/04 2100 AC 06/08 PO 07/04 2059 0848Ergocalciferol 50,000 INTL.UNITS Q7D 06/04 2100 CKD 06/11 PO 07/04 2059 2015Hydrocodone 1 TAB Q6H PRN PRN 06/04 2100 ACBitart/Acetaminophen PO 07/04 2059Insulin Human 0 AC HS 06/04 2100 AC 06/12Lispro SUBQ 07/04 2059 1204Lactulose 20 GM Q6H PRN PRN 06/04 2100 AC 06/12 PO 07/04 2059 221Ondansetron HCl 4 MG Q4H PRN PRN 06/04 2100 AC 06/07 IV 07/04 2059 0635Potassium 40 MEQ DAILY PRN PRN 06/04 2100 ACChloride PO 07/04 2059Ticagrelor 90 MG BID 06/04 2100 AC 06/13 PO 07/04 2059 0812Zolpidem Tartrate 5 MG BEDTIME PRN PRN 06/04 2100 AC 06/11 PO 07/04 2059 2016Acetaminophen 650 MG Q6H PRN PRN 06/04 1415 AC 06/10 PO 07/04 1414 0834Atropine Sulfate 0.5 MG ASDIR PRN 06/04 1415 AC IV 07/04 1414Atorvastatin 80 MG DAILY 1700 06/04 0415 AC 06/12Calcium PO 07/04 0414 1653Morphine Sulfate 2 MG Q3H PRN PRN 06/04 0415 AC IV 06/18 0414 24 hour I O ending at 0700: 06/13 0700 06/12 1900 Intake Total 240 Output Total Balance 240 Intake, Oral 240 Number Voids 3 Vital Signs: Date Time Temp Pulse Resp B/P B/P Pulse O2 O2 Flow FiO2 Mean Ox Delivery Rate 06/13 0826 High flow 7.235392 nasal cannula 06/13 0750 96 Nasal 6.490901 cannula 06/13 0708 37.1 82 16 143/85 104.6 99 Room air 06/13 0429 37.3 88 18 141/77 98.2 94 Room air 06/13 0244 95 Nasal 5.300116 cannula 06/12 2251 36.7 93 18 150/83 105.0 96 Nasal cannula 06/12 2015 Nasal 5.531179 cannula 06/12 1908 36.8 91 18 151/85 107.3 95 Nasal cannula 06/12 1628 36.8 88 19 135/79 97.4 95 Nasal cannula Patient Weight Weight (lb): 190Weight (oz): 0.62Weight (kg): 86.200 Physical ExamGeneral appearance: alert, awake, oriented, no acute distressHead/Eyes: atraumatic, normocephalicENT: moist mucosal membranesNeck: non-tender, supple/no meningismus, no JVD, no lymphadenopathy, no masses or swellingCardiovascular: CV assessment: regular rate and rhythm, normal heart soundsRespiratory: clear to auscultation, no distressAbdomen: soft, non-tender, normal bowel soundsGenitourinary: no bladder distentionUpper extremity: UE assessment: no clubbing, no cyanosisLower extremity: LE assessment: no clubbing, no cyanosis, no edemaMusculoskeletal: full range of motionNeuro/VACUUM FILTER OPERATOR: alert, oriented X 3Skin: dry, intactPsychiatry: normal affect ResultsRadiology data:Recent Impressions:ULTRASOUND - DUP VEIN ALEJANDRA 06/13 1222 Report Impression - Status: SIGNED Entered: 06/13/2019 1227 IMPRESSION:1. No deep venous thrombosis identified in the bilateral lowerextremities. SL: [id number] By: [email or web address] - Amadeo Anne M.D. Diagnosis, Assessment Plan Free Text DxA P NotesFree Text DxA P Notes:1. Non-ST elevation myocardial infarction. s/p PCI of thrombotic occlusion of the mid RCA, and mid LADcontinue optimal medical therapy- brilinta, asa, statin, bbEcho: EF 45-50% BP/HR improved 3. Hypertensionoptimize meds to control bpprn medications available 4. Subacute CVAper Neurologycarotid dopplers negativemonitor for arrhythmiavenous dopplers negative 5. BRENDA/CKDdiuresis as needed for Nephrology 6. PNAID consulted 7. DM ok to dc from cardiac standpointFU with Dr. Rae, outpatient at 1254 RPT #:[id number] OF REPORTPRProgress Tqvj2407-20-22E24:52:00G.[id number] le for patient syobBLVCAEEPNFYXII0881-65-94H47:55:01 HCACL 2019-06-13 12:52:00 [id number]:52:00 H [place] [facility] ([facility])Cardiology Progress NoteREPORT#:[id number] REPORT STATUS: SignedDATE:06/13/19 TIME: 1252 PATIENT: DUSTY FRANCOIS UNIT #: [id number]#: [id number] [address] [birth year] AGE: 58 SEX: M ATTEND: Kyung Bedoya [facility] AUTHOR: Nicole Shay NP * ALL edits or amendments must be made on the electronic/computer document * SubjectiveChief Complaint:doing better, bp improvedplans for discharge today Objective GeneralVS/I O:Laboratory Tests 06/13/19 0540:[Embedded Image Not Available] 06/12/19 0528:[Embedded Image Not Available]Current Medications Sig/Jean Carlos Start time LastMedication Dose Route Stop Time Status AdminFurosemide 40 MG BID 06/12 2200 AC 06/13 IV 07/12 2159 0812Linezolid 600 MG Q12HR 06/12 2100 AC 06/13 PO 06/19 0901 0812Metoprolol 75 MG BID 06/12 2100 AC uccinate PO 07/12 2059 0813Cefepime HCl 1 GM Q6H 06/12 0945 AC odium Chloride 100 ML IV 06/16 1200 0813Amlodipine 10 MG DAILY 06/12 0900 AC 06/13Besylate PO 07/06 1959 0812Insulin Glargine 5 UNIT Q12HR 06/11 2100 AC 06/13 SUBQ 0808Albuterol/Ipratro 3 ML RTQ6H 06/08 2100 AC 06/13pium INH 07/08 2059 0749Albuterol/Ipratro 3 ML RTQ2H PRN PRN 06/08 184 AC 06/11pium INH 07/08 184 2350Bisacodyl 10 MG DAILY PRN PRN 06/08 1015 AC PO 07/08 1014Heparin Sodium 5,000 UNIT Q12HR 06/07 1300 AC 06/13 SUBQ 07/07 2059 0809Hydralazine HCl 10 MG Q6H PRN PRN 06/06 2000 AC 06/09 IV 07/06 1959 0841Metoclopramide 10 MG Q8H 06/06 1230 DC 06/12HCl IV 07/06 1229 1206Sodium Chloride 10 ML ASDIR PRN 06/06 0430 AC IV 07/06 0429Pantoprazole 40 MG DAILY 06/06 0429 AC odium IV 07/06 428 0811Promethazine HCl 25 MG Q8H PRN PRN 06/06 0030 AC 06/08 IM 07/06 0029 0748Diphenhydramine 25 MG Q6H PRN PRN 06/05 1945 AC 06/05HCl PO 07/05 194 1956Benzonatate 100 MG Q6H PRN PRN 06/05 1630 AC 06/05 PO 07/05 1629 2159Aspirin 81 MG DAILY 06/05 0900 AC 06/13 PO 07/05 0859 0812Dextrose/Water 125 ML ASDIR PRN 06/05 0815 AC IV 07/05 0814Dextrose/Water 250 ML ASDIR PRN 06/05 0815 AC IV 07/05 0814Glucagon 1 MG ASDIR PRN 06/05 0815 AC IM 07/05 0814Al Hydrox/Mg 30 ML Q4H PRN PRN 06/04 2100 ACHydrox/Simethicone PO 07/04 2059Docusate Sodium 100 MG BID PRN PRN 06/04 2100 AC 06/08 PO 07/04 2059 0848Ergocalciferol 50,000 INTL.UNITS Q7D 06/04 2100 CKD 06/11 PO 07/04 2059 2015Hydrocodone 1 TAB Q6H PRN PRN 06/04 2100 ACBitart/Acetaminophen PO 07/04 2059Insulin Human 0 AC HS 06/04 2100 AC 06/12Lispro SUBQ 07/04 2059 1204Lactulose 20 GM Q6H PRN PRN 06/04 2100 AC 06/12 PO 08/20 2059 2216Ondansetron HCl 4 MG Q4H PRN PRN 06/04 2100 AC 06/07 IV 07/0435Potassium 40 MEQ DAILY PRN PRN 06/04 2100 ACChloride PO 07/04 2059Ticagrelor 90 MG BID 06/04 2100 AC 06/13 PO 07/04Zolpidem Tartrate 5 MG BEDTIME PRN PRN 06/04 2100 AC 06/11 PO 07/04 2059 2016Acetaminophen 650 MG Q6H PRN PRN 06/04 141 AC 06/10 PO 07/04 1414 0834Atropine Sulfate 0.5 MG ASDIR PRN 06/04 141 AC IV 07/04 1414Atorvastatin 80 MG DAILY 1700 06/04 415 AC 06/12Calcium PO 07/04 414 1653Morphine Sulfate 2 MG Q3H PRN PRN 06/04 415 AC IV 06/18 0414 24 hour I O ending at 0700: 06/13 0700 06/12 1900 Intake Total 240 Output Total Balance 240 Intake, Oral 240 Number Voids 3 Vital Signs: Date Time Temp Pulse Resp B/P B/P Pulse O2 O2 Flow FiO2 Mean Ox Delivery Rate 06/13 0826 High flow 7.228752 nasal cannula 06/13 0750 96 Nasal 6.427172 cannula 06/13 0708 37.1 82 16 143/85 104.6 99 Room air 06/13 0429 37.3 88 18 141/77 98.2 94 Room air 06/13 0244 95 Nasal 5.373363 cannula 06/12 2251 36.7 93 18 150/83 105.0 96 Nasal cannula 06/12 2015 Nasal 5.819755 cannula 06/12 190 36.8 91 18 151/85 107.3 95 Nasal cannula 06/12 1628 36.8 88 19 135/79 97.4 95 Nasal cannula Patient Weight Weight (lb): 190Weight (oz): 0.62Weight (kg): 86.200 Physical ExamGeneral appearance: alert, awake, oriented, no acute distressHead/Eyes: atraumatic, normocephalicENT: moist mucosal membranesNeck: non-tender, supple/no meningismus, no JVD, no lymphadenopathy, no masses or swellingCardiovascular: CV assessment: regular rate and rhythm, normal heart soundsRespiratory: clear to auscultation, no distressAbdomen: soft, non-tender, normal bowel soundsGenitourinary: no bladder distentionUpper extremity: UE assessment: no clubbing, no cyanosisLower extremity: LE assessment: no clubbing, no cyanosis, no edemaMusculoskeletal: full range of motionNeuro/VACUUM FILTER OPERATOR: alert, oriented X 3Skin: dry, intactPsychiatry: normal affect ResultsRadiology data:Recent Impressions:ULTRASOUND - DUP VEIN ALEJANDRA 06/13 1222 Report Impression - Status: SIGNED Entered: 06/13/2019 1227 IMPRESSION:1. No deep venous thrombosis identified in the bilateral lowerextremities. SL: [id number] By: AlenaRH17 Veronica Anne M.D. Diagnosis, Assessment Plan Free Text DxA P NotesFree Text DxA P Notes:1. Non-ST elevation myocardial infarction. s/p PCI of thrombotic occlusion of the mid RCA, and mid LADcontinue optimal medical therapy- brilinta, asa, statin, bbEcho: EF 45-50% BP/HR improved 3. Hypertensionoptimize meds to control bpprn medications available 4. Subacute CVAper Neurologycarotid dopplers negativemonitor for arrhythmiavenous dopplers negative 5. BRENDA/CKDdiuresis as needed for Nephrology 6. PNAID consulted 7. DM ok to dc from cardiac standpointFU with Dr. Rae, outpatient at 1254 at 1246 RPT #:[id number] OF REPORTPRProgress Pgyg4667-34-40F23:52:00G.[id number] le for patient hwgnAFVIFTSUWSLFHR8572-45-54X45:47:16 [facility]L 2019-06-13 07:00:00 [id number]:00:00 H [facility] ([facility])Nephrology Progress NoteREPORT#:[id number] REPORT STATUS: SignedDATE:06/13/19 TIME: 0700 PATIENT: DUSTY FRANCOIS UNIT #: [id number]#: [id number] [address] [birth year] AGE: 58 SEX: M ATTEND: Kyung Bedoya [facility] AUTHOR: Gideon Teran MD * ALL edits or amendments must be made on the electronic/computer document * SubjectiveChief Complaint:Syncope/NSTEMI/AKIPatient reports:Yes: complaints. Comments:Patient seen and evaluated, discussed with care team, HPI no change from initial, LE edema Review of SystemsConstitutional:Yes fatigue, No chills, No feverSkin:No abrasion, No bruisingAllergy/Immun:No hives, No itchingEyes:No redness, No dischargeENT:No ear drainage, No ear ringingRespiratory:Yes non productive cough, Yes SOBCardiovascular:No palpitationsGI:Yes nausea, Yes vomiting, No abdominal painGU:Denies: dysuria, flank pain. Objective GeneralVS/I O:Vital Signs:Date Time Temp Pulse Resp B/P B/P Pulse O2 O2 Flow FiO2 Mean Ox Delivery Rate06/13 0429 37.3 88 18 141/77 98.2 94 Room air06/13 0244 95 Nasal 5.040258 mmbxksu58/ 2251 36.7 93 18 150/83 105.0 96 Nasal vebtuul1406/12 2015 Nasal 5.949479 afhailj34/29 1908 36.8 91 18 151/85 107.3 95 Nasal /29 1628 36.8 88 19 135/79 97.4 95 Nasal tvnehjp11/ 1230 High flow 10.630844 nasal tswohel66/29 1028 36.7 96 18 158/100 119.1 93 Nasal uwquovv36/29 0900 96 24 179/88 126 9707/ 0813 89 High flow 10.923824 nasal vmlinfm27/29 0800 37.007/ 0800 Nasal 4.650706 nrfjcyt90/29 0800 96 20 189/563 121 9600/ 0722 91 23 176/94 126 96 24 hour I O ending at 0700: 06/13 0700 06/12 1900 Intake Total 240 Output Total Balance 240 Intake, Oral 240 Number Voids 3 MedicationsActive Meds + DC'd Last 24 HrsFurosemide 40 MG BID IV Linezolid 600 MG Q12HR PO Metoprolol Succinate 75 MG BID PO Cefepime HCl 1 GM Q6H IV Sodium Chloride 100 MLAmlodipine Besylate 10 MG DAILY PO Insulin Glargine 5 UNIT Q12HR SUBQ Linezolid 300 ML Q12HR IV (DC) Metoprolol Succinate 50 MG BID PO (DC) Cefepime HCl 1 GM Q8H IV (DC) Sodium Chloride 100 MLAlbuterol/Ipratropium 3 ML RTQ6H INH Albuterol/Ipratropium 3 ML RTQ2H PRN PRN INH Bisacodyl 10 MG DAILY PRN PRN PO Heparin Sodium 5,000 UNIT Q12HR SUBQ Hydralazine HCl 10 MG Q6H PRN PRN IV Metoclopramide HCl 10 MG Q8H IV Sodium Chloride 10 ML ASDIR PRN IV Pantoprazole Sodium 40 MG DAILY IV Promethazine HCl 25 MG Q8H PRN PRN IM Diphenhydramine HCl 25 MG Q6H PRN PRN PO Benzonatate 100 MG Q6H PRN PRN PO Aspirin 81 MG DAILY PO Dextrose/Water 125 ML ASDIR PRN IV Dextrose/Water 250 ML ASDIR PRN IV Glucagon 1 MG ASDIR PRN IM Al Hydrox/Mg Hydrox/Simethicone 30 ML Q4H PRN PRN PO Docusate Sodium 100 MG BID PRN PRN PO Ergocalciferol 50,000 INTL.UNITS Q7D PO (CKD) Hydrocodone Bitart/Acetaminophen 1 TAB Q6H PRN PRN PO Insulin Human Lispro 0 AC HS SUBQ Lactulose 20 GM Q6H PRN PRN PO Ondansetron HCl 4 MG Q4H PRN PRN IV Potassium Chloride 40 MEQ DAILY PRN PRN PO Ticagrelor 90 MG BID PO Zolpidem Tartrate 5 MG BEDTIME PRN PRN PO Acetaminophen 650 MG Q6H PRN PRN PO Atropine Sulfate 0.5 MG ASDIR PRN IV Atorvastatin Calcium 80 MG DAILY 1700 PO Morphine Sulfate 2 MG Q3H PRN PRN IV Physical ExamGeneral appearance: alert, no acute distressHead/eyes: atraumatic, normocephalicENT: moist mucous membranes, normal noseNeck: supple/no meningismusCardiovascular: normal heart sounds, no rubRespiratory: aerating well, no distressAbdomen: non-tender, softGenitourinary: no flank pain, no foleyExtremities: non-tender, no edemaMusculoskeletal: no tenderenessNeuro/VACUUM FILTER OPERATOR: alert, normal speechSkin: dry, intact ResultsFindings/Data:Laboratory Tests 06/12 1625 1031 0778 0573 Chemistry Sodium (134 - 147 mEq/L) 142 Potassium (3.4 - 5.0 mEq/L) 4.0 Chloride (100 - 108 mEq/L) 107 Carbon Dioxide (21 - 33 mEq/L) 30 Anion Gap (0 - 20) 9 BUN (7 - 18 mg/dL) 19 H Creatinine (0.6 - 1.3 mg/dL) 1.7 H Glomerular Filtr Rate (90 - 95) 50.7 L Glucose (70 - 110 mg/dL) 158 H POC Glucose (70 - 110 MG/DL) 134 H 95 230 H 132 H Calcium (8.0 - 10.5 mg/dL) 8.7 Phosphorus (2.5 - 4.9 mg/dL) 3.0 Magnesium (1.8 - 2.4 mg/dL) 2.40 06/11 1622 1121 0780 0450 Chemistry Sodium (134 - 147 mEq/L) 142 Potassium (3.4 - 5.0 mEq/L) 3.8 Chloride (100 - 108 mEq/L) 106 Carbon Dioxide (21 - 33 mEq/L) 33 Anion Gap (0 - 20) 7 BUN (7 - 18 mg/dL) 22 H Creatinine (0.6 - 1.3 mg/dL) 1.7 H Glomerular Filtr Rate (90 - 95) 50.7 L Glucose (70 - 110 mg/dL) 116 H POC Glucose (70 - 110 MG/DL) 157 H 53 L 188 H 125 H Calcium (8.0 - 10.5 mg/dL) 8.4 Phosphorus (2.5 - 4.9 mg/dL) 3.4 Magnesium (1.8 - 2.4 mg/dL) 2.40 07/27 07/27 07/27 07/27 1929 1613 1142 0723 Chemistry POC Glucose (70 - 110 MG/DL) 158 H 53 L 152 H 90 Laboratory Tests 06/12 06/11 0528 0450 Hematology WBC (4.5 - 11.0 x10 3/uL) 10.36 9.32 RBC (4.00 - 5.60 x10 6/uL) 3.12 L 3.28 L Hgb (12.5 - 16.9 g/dL) 8.5 L 8.8 L Hct (37.5 - 50.7 %) 27.0 L 27.7 L MCV (81.0 - 99.0 fL) 86.5 84.5 MCH (27.0 - 33.0 pg) 27.2 26.8 L MCHC (33.0 - 37.0 g/dL) 31.5 L 31.8 L RDW (11.5 - 14.5 %) 13.6 13.3 Plt Count (150 - 400 x10 3/uL) 452 H 432 H MPV (7.0 - 9.0 fL) 9.6 H 9.7 H Neut % (Auto) (56.0 - 77.0 %) 71.8 65.0 Lymph % (Auto) (14.0 - 32.0 %) 14.4 17.9 Highland % (Auto) (4.8 - 9.0 %) 9.2 H 10.9 H Eos % (Auto) (0.3 - 3.7 %) 4.0 H 5.3 H Baso % (Auto) (0.0 - 2.0 %) 0.1 0.1 Neut # (Auto) (2.0 - 7.6 x10 3/uL) 7.45 6.06 Lymph # (Auto) (1.0 - 3.8 x10 3/uL) 1.49 1.67 Highland # (Auto) (0.1 - 0.8 x10 3/uL) 0.95 H 1.02 H Eos # (Auto) (0.0 - 0.2 x10 3/uL) 0.41 H 0.49 H Baso # (Auto) (0.0 - 0.2 x10 3/uL) 0.01 0.01 Abs Immat Gran (auto) (0.00 - 0.03 x10 3/uL) 0.05 H 0.07 H Add Manual Diff NO NO Immature Gran % (0.0 - 2.0 %) 0.5 0.8 Nucleated RBC % (0 - 0 %) 0.0 0.0 Nucleated RBCs # (Man) (0.0 - 0.1 x10 3/uL) 0.00 0.00 Laboratory Tests 06/12 06/12 06/12 06/12 203 1625 1031 0726 Chemistry POC Glucose (70 - 110 MG/DL) 134 H 95 230 H 132 H Diagnosis, Assessment PlanFree Text A P:Patient seen and evaluated, discussed with care team, Images and laboratory reviewedHistory of HTN: metoprolol: Monitor BP closely and adjust medications as neededDM: insulin: Monitor BS closely and adjust medications as neededHLD: LipitorCAD s/p NSTEMI , s/p LHC and LAD/LCX PCI: ASA/TicagrelorPNA: Rocephin/AzithromaxSOB with elevated BNP, he has no LE edema, his SOB could be mainly related to his PNA, he is nauseated and eating, would hold off diuretcis if possibleAKI felisha related to CINHis baseline creat 1.2 in Sep 2018, eGFR 80 , felisha had some progression since then, check UA, urine P/creat ratio and renal USAcidosis: pH this AM 7.287/ Creat 3.6 stable, K WNL4.3, HCO3 22 better, renal US WNL06/08/19 Creat better 2.6, electrolytes acceptable, HCO3 23, continue IVF06/09/19 Creat 2.1 better, HCO3 27, Hgb 9, WBC 8.397/ Creat 1.7 better, HCO3 29 will d/c IVF , other electrolyts acceptable, Hgb 7.97/ Creat 1.7 stable since yesterday, electrolytes acceptable06/12/19 Creat 1.7 stable, Electrolytes acceptable, Hgb 8.5, BP elevated increaseNorvasc to 10 mg daily06/13/19 started on IV Lasix for LE edema, Creat 1.8 up some, electrolytes acceptable at 0932 RPT #:[id number] OF REPORTPRProgress Myjm8522-30-50H02:00:00G.[id number] le for patient pqzqBSLYEFHXYIOVXD2205-04-24Y84:32:32 [facility] 2019-06-12 18:13:00 ZDsnevbuqit678558666890-82-33Q13:13:00 H [facility] Prog. NoteREPORT#:[id number] REPORT STATUS: SignedDATE:06/12/19 TIME: 1812 PATIENT: DUSTY FRANCOIS UNIT #: [id number]#: [id number] [address] [birth year] AGE: 58 SEX: M ATTEND: Kyung Bedoya [facility] AUTHOR: Kyung Bedoya MD * ALL edits or amendments must be made on the electronic/computer document * SubjectiveChief Complaint:FEELING MUCH BETTERNO CHESTPAINC/O CONSTIPATIONVOMITED ONCE AMHAD FEVER AMPatient reports: chest pain, cough Review of SystemsConstitutional:Reports: generalized weakness. Skin:Denies: abrasion, bruising, contusion, diaphoresis, ecchymosis, itching, laceration, rash, swelling, other. Allergy/Immun:Denies: allergic reaction, anaphylaxis, hives, itching, rhinorrhea, sneezing, other. Eyes:Denies: redness, discharge, visual loss/blurred, itching, diplopia, eye pain, photophobia, swelling, other. Respiratory:Reports: productive cough (sputum), SOB. Cardiovascular:Reports: orthopnea. GI:Denies: abdominal pain, anorexia, constipation, diarrhea, dysphagia, GERD, hematemesis, hematochezia, hiatal hernia, melena, nausea, rectal pain, vomiting,other. Musculoskeletal:Denies: arthritis, extremity pain, extremity swelling, joint pain, joint swelling, lumbar pain, myalgias, neck pain, thoracic pain, other. Neuro:Reports: weakness. All systems rev neg: except as marked Objective GeneralVS/I O:Vital Signs Date Temp Pulse Resp B/P B/P Mean Pulse Ox FiO2 06/11-06/12 97.7-99.0 88-97 125-189/67-104 90-137 87-98 Last Documented: Result Date Time Pulse Ox 95 06/12 1628 B/P 135/79 06/12 1628 B/P Mean 97.4 06/12 1628 O2 Delivery Nasal cannula 06/12 162 Temp 98.2 06/12 1628 Pulse 88 06/12 1628 Resp 19 06/12 1628 O2 Flow Rate 10.089130 06/12 0813 FiO2 70 06/06 0215 24 hour I O ending at 0700: 06/12 0700 06/11 1900 Intake Total 860.00 800.00 Output Total 250 Balance 610.00 800.00 Intake, IV 500.00 400.00 Intake, Oral 360 400 Number 1 Bowel Movements Number Voids 3 3 Output, Urine 250 Patient Weight Weight (lb): 190Weight (oz): 0.62Weight (kg): 86.200 Medications:Active Meds + DC'd Last 24 HrsLinezolid 600 MG Q12HR PO Metoprolol Succinate 75 MG BID PO Cefepime HCl 1 GM Q6H IV Sodium Chloride 100 MLAmlodipine Besylate 10 MG DAILY PO Insulin Glargine 5 UNIT Q12HR SUBQ Linezolid 300 ML Q12HR IV (DC) Metoprolol Succinate 50 MG BID PO (DC) Cefepime HCl 1 GM Q8H IV (DC) Sodium Chloride 100 MLAlbuterol/Ipratropium 3 ML RTQ6H INH Albuterol/Ipratropium 3 ML RTQ2H PRN PRN INH Bisacodyl 10 MG DAILY PRN PRN PO Heparin Sodium 5,000 UNIT Q12HR SUBQ Amlodipine Besylate 5 MG DAILY PO (DC) Hydralazine HCl 10 MG Q6H PRN PRN IV Metoclopramide HCl 10 MG Q8H IV Sodium Chloride 10 ML ASDIR PRN IV Pantoprazole Sodium 40 MG DAILY IV Promethazine HCl 25 MG Q8H PRN PRN IM Diphenhydramine HCl 25 MG Q6H PRN PRN PO Benzonatate 100 MG Q6H PRN PRN PO Aspirin 81 MG DAILY PO Dextrose/Water 125 ML ASDIR PRN IV Dextrose/Water 250 ML ASDIR PRN IV Glucagon 1 MG ASDIR PRN IM Al Hydrox/Mg Hydrox/Simethicone 30 ML Q4H PRN PRN PO Docusate Sodium 100 MG BID PRN PRN PO Ergocalciferol 50,000 INTL.UNITS Q7D PO (CKD) Hydrocodone Bitart/Acetaminophen 1 TAB Q6H PRN PRN PO Insulin Human Lispro 0 AC HS SUBQ Lactulose 20 GM Q6H PRN PRN PO Ondansetron HCl 4 MG Q4H PRN PRN IV Potassium Chloride 40 MEQ DAILY PRN PRN PO Ticagrelor 90 MG BID PO Zolpidem Tartrate 5 MG BEDTIME PRN PRN PO Acetaminophen 650 MG Q6H PRN PRN PO Atropine Sulfate 0.5 MG ASDIR PRN IV Atorvastatin Calcium 80 MG DAILY 1700 PO Morphine Sulfate 2 MG Q3H PRN PRN IV Physical ExamGeneral appearance: alert, awake, orientedHead/Eyes: atraumatic, EOMINeck: non-tender, supple/no meningismusCardiovascular: normal heart sounds, regular rate rhythmRespiratory: crackles, decreased breath sounds, shortness of breathAbdomen: soft, no distentionExtremities: Extremities: no edemaNeuro/VACUUM FILTER OPERATOR: alert, oriented x 3 ResultsFindings/Data:Laboratory Tests 06/12/19527:[Embedded Image Not Available]Laboratory Tests 06/12 06/12 06/12 06/12 06/11 1625 1031 0726 0546 1944 Chemistry Sodium (134 - 147 mEq/L) 142 Potassium (3.4 - 5.0 mEq/L) 4.0 Chloride (100 - 108 mEq/L) 107 Carbon Dioxide (21 - 33 mEq/L) 30 Anion Gap (0 - 20) 9 BUN (7 - 18 mg/dL) 19 H Creatinine (0.6 - 1.3 mg/dL) 1.7 H Glomerular Filtr Rate (90 - 95) 50.7 L Glucose (70 - 110 mg/dL) 158 H POC Glucose (70 - 110 MG/DL) 95 230 H 132 H 157 H Calcium (8.0 - 10.5 mg/dL) 8.7 Phosphorus (2.5 - 4.9 mg/dL) 3.0 Magnesium (1.8 - 2.4 mg/dL) 2.40 Laboratory Tests 06/12 528 Hematology WBC (4.5 - 11.0 x10 3/uL) 10.36 RBC (4.00 - 5.60 x10 6/uL) 3.12 L Hgb (12.5 - 16.9 g/dL) 8.5 L Hct (37.5 - 50.7 %) 27.0 L MCV (81.0 - 99.0 fL) 86.5 MCH (27.0 - 33.0 pg) 27.2 MCHC (33.0 - 37.0 g/dL) 31.5 L RDW (11.5 - 14.5 %) 13.6 Plt Count (150 - 400 x10 3/uL) 452 H MPV (7.0 - 9.0 fL) 9.6 H Neut % (Auto) (56.0 - 77.0 %) 71.8 Lymph % (Auto) (14.0 - 32.0 %) 14.4 Highland % (Auto) (4.8 - 9.0 %) 9.2 H Eos % (Auto) (0.3 - 3.7 %) 4.0 H Baso % (Auto) (0.0 - 2.0 %) 0.1 Neut # (Auto) (2.0 - 7.6 x10 3/uL) 7.45 Lymph # (Auto) (1.0 - 3.8 x10 3/uL) 1.49 [place] # (Auto) (0.1 - 0.8 x10 3/uL) 0.95 H Eos # (Auto) (0.0 - 0.2 x10 3/uL) 0.41 H Baso # (Auto) (0.0 - 0.2 x10 3/uL) 0.01 Abs Immat Gran (auto) (0.00 - 0.03 x10 3/uL) 0.05 H Add Manual Diff NO Immature Gran % (0.0 - 2.0 %) 0.5 Nucleated RBC % (0 - 0 %) 0.0 Nucleated RBCs # (Man) (0.0 - 0.1 x10 3/uL) 0.00 Diagnosis, Assessment PlanProblem List/A P: 1. Right parietal lobe lesion 2. CVA (cerebrovascular accident) 3. Cellulitis of right knee 4. Syncope 5. PAD (peripheral artery disease) 6. Acute on chronic renal failure 7. Diabetic nephropathy 8. Diabetic neuropathy Free Text DxA P NotesFree Text DxA P Notes: 1. ACUTE CORONARY SYNDROME - S/P PCI TO MID CIRCUMFLEX .LAD , ON ASA ,BRILANTA ,METOPROLOL,, PLANS FOR STAGED PCT TO RCA LATER/WILL HOLD STATIN FOR MYELGIA AND ELEVATED CK FOR NOW 2,SUBACUTE CVA - NEURO FU 3.HYPOXIA DUE TO PULMO EDEMA -STARTED LASIX 4..HCAP -ON CEFIPIME /ZYVOX ,ID FU 5.BRENDA - ON LASIX ,EXPECTED TO INCREASE , MONITOR ,HOLD IVF FOR NOW ,NEPHROLOGY EVALUATION 6.DM -UNCONCONTROLED -HBA1C 9.1 -ON LANTUS ,HUMOLOG 7.PAD 8.CONSTIPATION -ADD DULCOLUX PT/OT EXPECTED DC IN FEW DAYS at 1815 RPT #:[id number] OF REPORTPRProgress Vmhk1413-45-36O73:13:00G.[id number] le for patient oyxwTEBUIJBZAGBIFP3546-90-12J38:15:58 [facility] 2019-06-12 15:31:00 [id number]:31:0007 [address] [place] [address] PATIENT NAME: DUSTY FRANCOIS ADMIT DATE: 06/04/19ACCOUNT NO: [id number] ROOM NO: [facility] AGE: 58 REPORT TYPE: eECHOCARDIOGRAM REPORT SEX: M ADMITTING PHYSICIAN:Kyung Bedoya MD ATTENDING PHYSICIAN:Kyung Bedoya MD Exam Date: 06/06/2019 14:48:00 Exam Type: Transthoracic Echocardiogram Conclusions1. see previous report at 1535 PATIENT NAME: DUSTY FRANCOIS .[id number] Available for patient gwowHQBGAAQNXIKKHQ2048-00-88Q08:35:15 [facility] 2019-06-12 15:30:00 [id number]:30:[address] [address] PATIENT NAME: DUSTY FRANCOIS ADMIT DATE: 06/04/19ACCOUNT NO: [id number] ROOM NO: 6606 AGE: 58 REPORT TYPE: eECHOCARDIOGRAM REPORT SEX: M ADMITTING PHYSICIAN:Kyung Bedoya MD ATTENDING PHYSICIAN:Kyung Bedoya MD Exam Date: 06/06/2019 14:52:00 Exam Type: Transthoracic Echocardiogram Measurements Name Value Normal Range IVSd (MM) 1.36 cm (0.6 - 1.1) LVPWd (MM) 1.56 cm (0.6 - 1.1) LVIDd (MM) 5.81 cm (3.5 - 5.6) LVIDs (MM) 4.22 cm (2.1 - 4) LV FS (MM) 27.37 % - EF Teichholz (MM) 52.49 % - Name Value Normal Range LV EDV SP 4CH (MOD) 112.37 ml - LV ESV SP 4CH (MOD) 60.83 ml - EF SP 4CH (MOD) 45.87 % - LV EDV SP 2CH (MOD) 92.54 ml - LV ESV SP 2CH (MOD) 52.88 ml - EF SP 2CH (MOD) 42.86 % - LV EDV BP 101.84 ml - LV ESV BP 56.23 ml - BP EF (MOD) 44.79 % - Name Value Normal Range MV E-wave Vmax 0.69 m/sec - MV deceleration time 111.19 msec - MV A-wave Vmax 0.95 m/sec - MV E:A ratio 0.73 ratio - Findings Left Ventricle:Mild global hypokinesis of the left ventricle is observed. The estimatedejection fraction is 45%. Abnormal left ventricular diastolic filling isobserved, consistent with impaired LV relaxation. Venous:There is a greater than 50% respiratory change in the inferior vena cavadimension. Conclusions1. Mild global hypokinesis of the left ventricle is observed.PATIENT NAME: DUSTY FRANCOIS 2. The estimated ejection fraction is 45%.3. Abnormal left ventricular diastolic filling is observed, consistentwith impaired LV relaxation.4. There is a greater than 50% respiratory change in the inferior venacava dimension. Normal IVC size at 1533 PATIENT NAME: DUSTY FRANCOIS .[id number] Available for patient okbkGRGAVRZRNMMRDL9612-78-15K35:33:55 [facility] 2019-06-12 13:46:00 [id number]:46:00 [facility] Progress NoteREPORT#:[id number] REPORT STATUS: SignedDATE:06/12/19 TIME: 1346 PATIENT: DUSTY FRANCOIS UNIT #: [id number]#: [id number] [address]OB: [birth year] AGE: 58 SEX: M ATTEND: Kyung Bedoya [facility] AUTHOR: Nicole Shay NP * ALL edits or amendments must be made on the electronic/computer document * SubjectiveChief Complaint:doing better, bp elevated Objective GeneralVS/I O:Laboratory Tests 06/12/19 0528:[Embedded Image Not Available] 06/11/19 0450:[Embedded Image Not Available]Current Medications Sig/Jean Carlos Start time LastMedication Dose Route Stop Time Status AdminLinezolid 600 MG Q12HR 06/12 2100 AC PO 06/19 09Metoprolol 75 MG BID 06/12 2100 ACSuccinate PO 07/12 2059Cefepime HCl 1 GM Q6H 06/12 0945 AC 06/12Sodium Chloride 100 ML IV 06/16 1200 1205Amlodipine 10 MG DAILY 06/12 0900 AC 06/12Besylate PO 07/06 1959 0839Insulin Glargine 5 UNIT Q12HR 06/11 2100 AC 06/12 SUBQ 0838Linezolid 300 ML Q12HR 06/09 2100 DC 06/12 IV 06/16 2059 0836Metoprolol 50 MG BID 06/09 2100 DC 06/12Succinate PO 07/09 2059 0836Cefepime HCl 1 GM Q8H 06/09 1115 DC 06/12Sodium Chloride 100 ML IV 06/16 1200 0323Albuterol/Ipratro 3 ML RTQ6H 06/08 2100 AC 06/12pium INH 07/08 2059 0813Albuterol/Ipratro 3 ML RTQ2H PRN PRN 06/08 1845 AC 06/11pium INH 07/08 184 2350Bisacodyl 10 MG DAILY PRN PRN 06/08 1015 AC PO 07/08 1014Heparin Sodium 5,000 UNIT Q12HR 06/07 1300 AC 06/12 SUBQ 07/07 2059 0836Amlodipine 5 MG DAILY 06/06 2000 DC 06/11Besylate PO 07/06 1959 0849Hydralazine HCl 10 MG Q6H PRN PRN 06/06 2000 AC 06/09 IV 07/06 1959 0841Metoclopramide 10 MG Q8H 06/06 1230 AC 06/12HCl IV 07/06 1229 1206Sodium Chloride 10 ML ASDIR PRN 06/06 0430 AC IV 07/06 0429Pantoprazole 40 MG DAILY 06/06 0429 AC 06/12Sodium IV 07/06 0428 0838Promethazine HCl 25 MG Q8H PRN PRN 06/06 0030 AC 06/08 IM 07/06 0029 0748Diphenhydramine 25 MG Q6H PRN PRN 06/05 1945 AC 06/05HCl PO 07/05 194 1956Benzonatate 100 MG Q6H PRN PRN 06/05 1630 AC 06/05 PO 07/05 1629 2159Aspirin 81 MG DAILY 06/05 0900 AC 06/12 PO 07/05 0859 0838Dextrose/Water 125 ML ASDIR PRN 06/05 0815 AC IV 07/05 0814Dextrose/Water 250 ML ASDIR PRN 06/05 0815 AC IV 07/05 0814Glucagon 1 MG ASDIR PRN 06/05 0815 AC IM 07/05 0814Insulin Glargine 10 UNIT Q12HR 06/04 2103 DC 06/11 SUBQ 07/04 2102 0848Al Hydrox/Mg 30 ML Q4H PRN PRN 06/04 2100 ACHydrox/Simethicone PO 07/04 2059Docusate Sodium 100 MG BID PRN PRN 06/04 2100 AC 06/08 PO 07/04 2059 0848Ergocalciferol 50,000 INTL.UNITS Q7D 06/04 2100 CKD 06/11 PO 07/04 2059 2015Hydrocodone 1 TAB Q6H PRN PRN 06/04 2100 ACBitart/Acetaminophen PO 07/04 2059Insulin Human 0 AC HS 06/04 2100 AC 06/12Lispro SUBQ 07/04 2059 1204Lactulose 20 GM Q6H PRN PRN 06/04 2100 AC 06/08 PO 07/04 2059 0847Ondansetron HCl 4 MG Q4H PRN PRN 06/04 2100 AC 06/07 IV 07/04 2059 0635Potassium 40 MEQ DAILY PRN PRN 06/04 2100 ACChloride PO 07/04 2059Ticagrelor 90 MG BID 06/04 2100 AC 06/12 PO 07/04 2059 0836Zolpidem Tartrate 5 MG BEDTIME PRN PRN 06/04 2100 AC 06/11 PO 07/04 2059 2016Acetaminophen 650 MG Q6H PRN PRN 06/04 1415 AC 06/10 PO 07/04 141 0834Atropine Sulfate 0.5 MG ASDIR PRN 06/04 1415 AC IV 07/04 1414Atorvastatin 80 MG DAILY 1700 06/04 0415 AC 06/11Calcium PO 07/04 414 1700Morphine Sulfate 2 MG Q3H PRN PRN 06/04 0415 AC IV 06/18 0414 24 hour I O ending at 0700: 06/12 0700 06/11 1900 Intake Total 860.00 800.00 Output Total 250 Balance 610.00 800.00 Intake, IV 500.00 400.00 Intake, Oral 360 400 Number 1 Bowel Movements Number Voids 3 3 Output, Urine 250 Vital Signs:Date Time Temp Pulse Resp B/P B/P Pulse O2 O2 Flow FiO2 Mean Ox Delivery Rate06/12 1028 36.7 96 18 158/100 119.1 93 Nasal /29 0900 96 24 179/88 126 97/ 0813 89 High flow 10.113117 nasal /29 0800 37.007/ 0800 Nasal 4.130230 dobxzgn81/29 0800 96 20 189/121 786 2225/ 0722 91 23 176/94 126 96/ 0632 90 15 162/97 123 9806/ 0600 92 19 177/167 748 1771/ 0530 9106/12 0519 97 28 165/86 117 87/ 0400 36.5 92 29 157/88 115 9806/ 0400 92 High flow 10.546103 nasal opfwezi39/29 0300 89 19 147/84 110 92/ 0200 90 19 159/95 122 96/ 0100 92 26 130 9307/ 0000 36.9 93 27 140/92 111 9306/ 2353 90 Nasal 4.679132 pumofku68/28 2330 7/ 2300 90 23 125/67 900/ 2230 9306/ 2200 93 24 148/84 42846/28 2000 Nasal 4.836304 hriztgh7706/11 2000 92 Nasal 4.484756 /1999 37.2 91 22 138/75 101 7/ 1900 90 20 142/75 102 1700 93 26 134/79 102 94/ 1600 98 26 158/90 116 9106/ 1500 91 18 138/76 101 9206/11 1400 94 25 138/81 105 88 Patient Weight Weight (lb): 190Weight (oz): 0.62Weight (kg): 86.200 Physical ExamGeneral appearance: alert, awake, oriented, no acute distressHead/Eyes: atraumatic, normocephalicENT: moist mucosal membranesNeck: non-tender, supple/no meningismus, no JVD, no lymphadenopathy, no masses or swellingCardiovascular: CV assessment: regular rate and rhythm, normal heart soundsRespiratory: clear to auscultation, no distressAbdomen: soft, non-tender, normal bowel soundsGenitourinary: no bladder distentionUpper extremity: UE assessment: no clubbing, no cyanosisLower extremity: LE assessment: no clubbing, no cyanosis, no edemaMusculoskeletal: full range of motionNeuro/VACUUM FILTER OPERATOR: alert, oriented X 3Skin: dry, intactPsychiatry: normal affect Diagnosis, Assessment Plan Free Text DxA P NotesFree Text DxA P Notes:1. Non-ST elevation myocardial infarction. s/p PCI of thrombotic occlusion of the mid RCA, and mid LADcontinue optimal medical therapy- brilinta, asa, statin, bbEcho: EF 45-50% HR in the 90s with elevated bp- increase metoprolol 75mg bid- monitor 3. Hypertensionoptimize meds to control bpprn medications available 4. Subacute CVAper Neurologycarotid dopplers negativemonitor for arrhythmiavenous dopplers negative 5. BRENDA/CKDper Nephrologydiuresis as needed for Nephrology 6. PNAID consulted 7. DM at 1348 RPT #:[id number] OF REPORTPRProgress [id number]:46:00G.[id number] le for patient wajcHJHIGBVPDMNDJD3400-45-20S30:49:43 [facility] 2019-06-12 13:46:00 [id number]:46:00 H [facility] ([facility])Cardiology Progress NoteREPORT#:[id number] REPORT STATUS: SignedDATE:06/12/19 TIME: 1346 PATIENT: DUSTY FRANCOIS UNIT #: [id number]#: [id number] [address] [birth year] AGE: 58 SEX: M ATTEND: Kyung Bedoya [facility] AUTHOR: Nicole Shay NP * ALL edits or amendments must be made on the electronic/computer document * SubjectiveChief Complaint:doing better, bp elevated Objective GeneralVS/I O:Laboratory Tests 06/12/19 0528:[Embedded Image Not Available] 06/11/19 0450:[Embedded Image Not Available]Current Medications Sig/Jean Carlos Start time LastMedication Dose Route Stop Time Status AdminLinezolid 600 MG Q12HR 06/12 2100 AC PO 06/19 0901Metoprolol 75 MG BID 06/12 2100 ACSuccinate PO 07/12 205Cefepime HCl 1 GM Q6H 06/12 0945 AC 06/12Sodium Chloride 100 ML IV 06/16 1200 1205Amlodipine 10 MG DAILY 06/12 0900 AC 06/12Besylate PO 07/06 1959 0839Insulin Glargine 5 UNIT Q12HR 06/11 2100 AC 06/12 SUBQ 0838Linezolid 300 ML Q12HR 06/09 2100 DC 06/12 IV 06/16 2059 0836Metoprolol 50 MG BID 06/09 2100 DC 06/12Succinate PO 07/09 2059 0836Cefepime HCl 1 GM Q8H 06/09 1115 DC 06/12Sodium Chloride 100 ML IV 06/16 1200 0323Albuterol/Ipratro 3 ML RTQ6H 06/08 2100 AC 06/12pium INH 07/08 2059 0813Albuterol/Ipratro 3 ML RTQ2H PRN PRN 06/08 1845 AC 06/11pium INH 07/08 1844 2350Bisacodyl 10 MG DAILY PRN PRN 06/08 1015 AC PO 07/08 1014Heparin Sodium 5,000 UNIT Q12HR 06/07 1300 AC 06/12 SUBQ 07/07 2059 0836Amlodipine 5 MG DAILY 06/06 2000 DC 06/11Besylate PO 07/06 1959 0849Hydralazine HCl 10 MG Q6H PRN PRN 06/06 2000 AC 06/09 IV 07/06 1959 0841Metoclopramide 10 MG Q8H 06/06 1230 AC 06/12HCl IV 07/06 1229 1206Sodium Chloride 10 ML ASDIR PRN 06/06 0430 AC IV 07/06 0429Pantoprazole 40 MG DAILY 06/06 0429 AC 06/12Sodium IV 07/06 0428 0838Promethazine HCl 25 MG Q8H PRN PRN 06/06 0030 AC 06/08 IM 07/06 0029 0748Diphenhydramine 25 MG Q6H PRN PRN 06/05 194 AC 06/05HCl PO 07/05 194 1956Benzonatate 100 MG Q6H PRN PRN 06/05 1630 AC 06/05 PO 07/05 1629 2159Aspirin 81 MG DAILY 06/05 0900 AC 06/12 PO 07/05 0859 0838Dextrose/Water 125 ML ASDIR PRN 06/05 0815 AC IV 07/05 0814Dextrose/Water 250 ML ASDIR PRN 06/05 0815 AC IV 07/05 0814Glucagon 1 MG ASDIR PRN 06/05 0815 AC IM 07/05 0814Insulin Glargine 10 UNIT Q12HR 06/04 2103 DC 06/11 SUBQ 07/04 2102 0848Al Hydrox/Mg 30 ML Q4H PRN PRN 06/04 2100 ACHydrox/Simethicone PO 07/04 2059Docusate Sodium 100 MG BID PRN PRN 06/04 2100 AC 06/08 PO 07/04 2059 0848Ergocalciferol 50,000 INTL.UNITS Q7D 06/04 2100 CKD 06/11 PO 07/04 2059 2015Hydrocodone 1 TAB Q6H PRN PRN 06/04 2100 ACBitart/Acetaminophen PO 07/04 2059Insulin Human 0 AC HS 06/04 2100 AC 06/12Lispro SUBQ 07/04 2059 1204Lactulose 20 GM Q6H PRN PRN 06/04 2100 AC 06/08 PO 07/04 2059 0847Ondansetron HCl 4 MG Q4H PRN PRN 06/04 2100 AC 06/07 IV 07/04 2059 0635Potassium 40 MEQ DAILY PRN PRN 06/04 2100 ACChloride PO 07/04 2059Ticagrelor 90 MG BID 06/04 2100 AC 06/12 PO 07/04 2059 0836Zolpidem Tartrate 5 MG BEDTIME PRN PRN 06/04 2100 AC 06/11 PO 07/04 2059 2016Acetaminophen 650 MG Q6H PRN PRN 06/04 1415 AC 06/10 PO 07/04 1414 0834Atropine Sulfate 0.5 MG ASDIR PRN 06/04 1415 AC IV 07/04 1414Atorvastatin 80 MG DAILY 1700 06/04 0415 AC 06/11Calcium PO 07/04 0414 1700Morphine Sulfate 2 MG Q3H PRN PRN 06/04 0415 AC IV 06/18 0414 24 hour I O ending at 0700: 06/12 0700 06/11 1900 Intake Total 860.00 800.00 Output Total 250 Balance 610.00 800.00 Intake, IV 500.00 400.00 Intake, Oral 360 400 Number 1 Bowel Movements Number Voids 3 3 Output, Urine 250 Vital Signs:Date Time Temp Pulse Resp B/P B/P Pulse O2 O2 Flow FiO2 Mean Ox Delivery Rate06/12 1028 36.7 96 18 158/100 119.1 93 Nasal nxrkepj22/29 0900 96 24 179/88 126 97/ 0813 89 High flow 10.169571 nasal /29 0800 37.007/ 0800 Nasal 4.054145 ezbpzle00/29 0800 96 20 189/268 468 0759/ 0722 91 23 176/94 126 9607/ 0632 90 15 162/97 123 9806/ 0600 92 19 177/969 787 3590/ 0530 0519 97 28 165/86 117 87/ 0400 36.5 92 29 157/88 115 7/ 0400 92 High flow 10.963655 nasal fsfozwq40/29 0300 89 19 147/84 110 9206/ 0200 90 19 159/95 122 96/ 0100 92 26 130 93/ 0000 36.9 93 27 140/92 111 2353 90 Nasal 4.262128 vymwdjt35/28 2330 7/28 2300 90 23 125/67 7/ 2230 2200 93 24 148/84 12480/1999 Nasal 4.439210 icmvycc6106/11 2000 92 Nasal 4.561549 ynwgfij4206/11 2000 37.2 91 22 138/75 101 9807 1900 90 20 142/75 102 9606/ 1700 93 26 134/79 102 9406/11 1600 98 26 158/90 116 9106/11 1500 91 18 138/76 101 9207/28 1400 94 25 138/81 105 88 Patient Weight Weight (lb): 190Weight (oz): 0.62Weight (kg): 86.200 Physical ExamGeneral appearance: alert, awake, oriented, no acute distressHead/Eyes: atraumatic, normocephalicENT: moist mucosal membranesNeck: non-tender, supple/no meningismus, no JVD, no lymphadenopathy, no masses or swellingCardiovascular: CV assessment: regular rate and rhythm, normal heart soundsRespiratory: clear to auscultation, no distressAbdomen: soft, non-tender, normal bowel soundsGenitourinary: no bladder distentionUpper extremity: UE assessment: no clubbing, no cyanosisLower extremity: LE assessment: no clubbing, no cyanosis, no edemaMusculoskeletal: full range of motionNeuro/VACUUM FILTER OPERATOR: alert, oriented X 3Skin: dry, intactPsychiatry: normal affect Diagnosis, Assessment Plan Free Text DxA P NotesFree Text DxA P Notes:1. Non-ST elevation myocardial infarction. s/p PCI of thrombotic occlusion of the mid RCA, and mid LADcontinue optimal medical therapy- brilinta, asa, statin, bbEcho: EF 45-50% HR in the 90s with elevated bp- increase metoprolol 75mg bid- monitor 3. Hypertensionoptimize meds to control bpprn medications available 4. Subacute CVAper Neurologycarotid dopplers negativemonitor for arrhythmiavenous dopplers negative 5. BRENDA/CKDper Nephrologydiuresis as needed for Nephrology 6. PNAID consulted 7. DM at 1348 at 1246 RPT #:[id number] OF REPORTPRProgress [id number]:46:00G.[id number] le for patient pdboGOJDTVMNUZKLMN9902-87-04L19:46:55 HCACL 2019-06-12 13:05:00 [id number]:05:00 H [facility] ([facility])Neurology Progress NoteREPORT#:[id number] REPORT STATUS: SignedDATE:06/12/19 TIME: 1305 PATIENT: DUSTY FRANCOIS UNIT #: [id number]#: [id number] ROOM/BED: [facility]6-1DOB: [birth year] AGE: 58 SEX: M ATTEND: Kyung Bedoya MDADM AUTHOR: Marbella Haley MD * ALL edits or amendments must be made on the electronic/computer document * SubjectiveHPI:calm, responsive Objective Physical ExamVS:Last Documented: Result Date Time Pulse Ox 93 06/12 1028 B/P 158/100 06/12 1028 B/P Mean 119.1 06/12 1028 O2 Delivery Nasal cannula 06/12 1028 Temp 36.7 06/12 1028 Pulse 96 06/12 1028 Resp 18 06/12 1028 O2 Flow Rate 10.078409 06/12 0813 FiO2 70 06/06 0215 Patient Weight Weight (lb): 190Weight (oz): 0.62Weight (kg): 86.200 Medications:Current Home MedicationsERGOCALCIFEROL (VITAMIN D2) 50,000 UNITS PO Q7D HYDROcodone/APAP (NORCO 10/325) 1 TAB PO Q6H PRN PRN PAIN ROSUVASTATIN (CRESTOR) 40 MG PO BEDTIME INSULIN DETEMIR (LEVEMIR) 10 UNITS SUBQ Q12HR METOPROLOL TARTRATE (LOPRESSOR) 25 MG PO DAILY LISINOPRIL (ZESTRIL) 20 MG PO DAILY Active Meds + DC'd Last 24 HrsLinezolid 600 MG Q12HR PO Metoprolol Succinate 75 MG BID PO Cefepime HCl 1 GM Q6H IV Sodium Chloride 100 MLAmlodipine Besylate 10 MG DAILY PO Insulin Glargine 5 UNIT Q12HR SUBQ Linezolid 300 ML Q12HR IV (DC) Metoprolol Succinate 50 MG BID PO (DC) Cefepime HCl 1 GM Q8H IV (DC) Sodium Chloride 100 MLAlbuterol/Ipratropium 3 ML RTQ6H INH Albuterol/Ipratropium 3 ML RTQ2H PRN PRN INH Bisacodyl 10 MG DAILY PRN PRN PO Heparin Sodium 5,000 UNIT Q12HR SUBQ Amlodipine Besylate 5 MG DAILY PO (DC) Hydralazine HCl 10 MG Q6H PRN PRN IV Metoclopramide HCl 10 MG Q8H IV Sodium Chloride 10 ML ASDIR PRN IV Pantoprazole Sodium 40 MG DAILY IV Promethazine HCl 25 MG Q8H PRN PRN IM Diphenhydramine HCl 25 MG Q6H PRN PRN PO Benzonatate 100 MG Q6H PRN PRN PO Aspirin 81 MG DAILY PO Dextrose/Water 125 ML ASDIR PRN IV Dextrose/Water 250 ML ASDIR PRN IV Glucagon 1 MG ASDIR PRN IM Insulin Glargine 10 UNIT Q12HR SUBQ (DC) Al Hydrox/Mg Hydrox/Simethicone 30 ML Q4H PRN PRN PO Docusate Sodium 100 MG BID PRN PRN PO Ergocalciferol 50,000 INTL.UNITS Q7D PO (CKD) Hydrocodone Bitart/Acetaminophen 1 TAB Q6H PRN PRN PO Insulin Human Lispro 0 AC HS SUBQ Lactulose 20 GM Q6H PRN PRN PO Ondansetron HCl 4 MG Q4H PRN PRN IV Potassium Chloride 40 MEQ DAILY PRN PRN PO Ticagrelor 90 MG BID PO Zolpidem Tartrate 5 MG BEDTIME PRN PRN PO Acetaminophen 650 MG Q6H PRN PRN PO Atropine Sulfate 0.5 MG ASDIR PRN IV Atorvastatin Calcium 80 MG DAILY 1700 PO Morphine Sulfate 2 MG Q3H PRN PRN IV General appearance: alert, awakeHead/Eyes: atraumaticENT: moist mucosal membranesNeck: full range of motion, non-tender, supple/no meningismusCardiovascular: regular rate and rhythmRespiratory: aerating well, clear to auscultationAbdomen: non-tenderExtremities: moves allMusculoskeletal: normal inspectionNeuro/VACUUM FILTER OPERATOR: alert, oriented X 4, normal speech, EOMI, PERRL, CN II-XII intact, reflexes equal bilat, normal reflexes, no motor deficits, no sensory deficits, no cerebellar deficits Diagnosis, Assessment PlanProblem List/A P: 1. Syncope 2. CVA (cerebrovascular accident) Additional comments:patient to be on asa and statinawaiting completion of cardiac workup if arrythmia initaite anticoagulationcarotids are reasurring cardiac eval and workup in progresson appropriate preventative therapy from neuro perspective---doing welloutpt follow up at 1305 RPT #:[id number] OF REPORTPRProgress [id number]:05:00G.[id number] le for patient nkimFKNASBNEHUKUSD8909-69-21A79:06:06 HCACL 2019-06-12 12:52:00 [id number]:52:00 [facility] [place] [facility] ([facility])Infectious Dis. Progress NoteREPORT#:[id number] REPORT STATUS: SignedDATE:06/12/19 TIME: 1252 PATIENT: DUSTY FRANCOIS UNIT #: [id number]#: [id number] [address] [birth year] AGE: 58 SEX: M ATTEND: Kyung Bedoya [facility] AUTHOR: France Lee MD * ALL edits or amendments must be made on the electronic/computer document * SubjectiveChief Complaint:f/u HCAPPatient reports:Yes: cough, feeling better. No: fever, headache, nausea, shortness of breath, vomiting. Comments:Pt moved out of CCU to floor Portions of this section were scribed by Janice Donahue on 06/12/19 at 1252 Objective GeneralVS/I O:Last Documented: Result Date Time Pulse Ox 93 06/12 1028 B/P 158/100 06/12 1028 B/P Mean 119.1 06/12 1028 O2 Delivery Nasal cannula 06/12 1028 Temp 36.7 06/12 1028 Pulse 96 06/12 1028 Resp 18 06/12 1028 O2 Flow Rate 10.472914 06/12 0813 FiO2 70 06/06 0215 Vital Signs Date Temp Pulse Resp B/P B/P Mean Pulse Ox FiO2 06/11-06/12 36.5-37.2 89-98 - 125-189/67-104 90-137 86-98 24 hour I O ending at 0700: 06/12 0700 06/11 1900 Intake Total 860.00 800.00 Output Total 250 Balance 610.00 800.00 Intake, IV 500.00 400.00 Intake, Oral 360 400 Number 1 Bowel Movements Number Voids 3 3 Output, Urine 250 Patient Weight Weight (lb): 190Weight (oz): 0.62Weight (kg): 86.200 Physical ExamGeneral appearance: alert, awake, orientedHead/Eyes: atraumatic, clear cornea, EOMI, normal conjunctiva/sclera, normal eyelids/periorb, normocephalic, PERRLENT: normal dentition, normal nose, normal pharynx, normal sinusNeck: full range of motion, non-tender, normal thyroid, supple/no meningismus, no bruit/NL carotids, no JVD, no masses or swelling, no lymphadenopathyCardiovascular: regular rate rhythmRespiratory: decreased breath soundsAbdomen: non-tender, soft, no distention, no guarding, no mass/organomegaly, no reboundExtremities: moves all, normal capillary refillNeuro/VACUUM FILTER OPERATOR: alert, oriented X 3Skin: dry, intact ResultsFindings/Data:Laboratory Tests 06/12 06/12 06/12 06/11 06/11 1031 0726 0528 1944 1622 Chemistry Sodium (134 - 147 mEq/L) 142 Potassium (3.4 - 5.0 mEq/L) 4.0 Chloride (100 - 108 mEq/L) 107 Carbon Dioxide (21 - 33 mEq/L) 30 Anion Gap (0 - 20) 9 BUN (7 - 18 mg/dL) 19 H Creatinine (0.6 - 1.3 mg/dL) 1.7 H Glomerular Filtr Rate (90 - 95) 50.7 L Glucose (70 - 110 mg/dL) 158 H POC Glucose (70 - 110 MG/DL) 230 H 132 H 157 H 53 L Calcium (8.0 - 10.5 mg/dL) 8.7 Phosphorus (2.5 - 4.9 mg/dL) 3.0 Magnesium (1.8 - 2.4 mg/dL) 2.40 Laboratory Tests 06/12 0528 Hematology WBC (4.5 - 11.0 x10 3/uL) 10.36 RBC (4.00 - 5.60 x10 6/uL) 3.12 L Hgb (12.5 - 16.9 g/dL) 8.5 L Hct (37.5 - 50.7 %) 27.0 L MCV (81.0 - 99.0 fL) 86.5 MCH (27.0 - 33.0 pg) 27.2 MCHC (33.0 - 37.0 g/dL) 31.5 L RDW (11.5 - 14.5 %) 13.6 Plt Count (150 - 400 x10 3/uL) 452 H MPV (7.0 - 9.0 fL) 9.6 H Neut % (Auto) (56.0 - 77.0 %) 71.8 Lymph % (Auto) (14.0 - 32.0 %) 14.4 Highland % (Auto) (4.8 - 9.0 %) 9.2 H Eos % (Auto) (0.3 - 3.7 %) 4.0 H Baso % (Auto) (0.0 - 2.0 %) 0.1 Neut # (Auto) (2.0 - 7.6 x10 3/uL) 7.45 Lymph # (Auto) (1.0 - 3.8 x10 3/uL) 1.49 Highland # (Auto) (0.1 - 0.8 x10 3/uL) 0.95 H Eos # (Auto) (0.0 - 0.2 x10 3/uL) 0.41 H Baso # (Auto) (0.0 - 0.2 x10 3/uL) 0.01 Abs Immat Gran (auto) (0.00 - 0.03 x10 3/uL) 0.05 H Add Manual Diff NO Immature Gran % (0.0 - 2.0 %) 0.5 Nucleated RBC % (0 - 0 %) 0.0 Nucleated RBCs # (Man) (0.0 - 0.1 x10 3/uL) 0.00 Microbiology:06/10 0050 URINE: Streptococcus pneumoniae Ag Screen - COMP06/05 1712 BLOOD: Blood Culture - COMP Active Meds + DC'd Last 24 HrsLinezolid 600 MG Q12HR PO Metoprolol Succinate 75 MG BID PO Cefepime HCl 1 GM Q6H IV Sodium Chloride 100 MLAmlodipine Besylate 10 MG DAILY PO Insulin Glargine 5 UNIT Q12HR SUBQ Linezolid 300 ML Q12HR IV (DC) Metoprolol Succinate 50 MG BID PO (DC) Cefepime HCl 1 GM Q8H IV (DC) Sodium Chloride 100 MLAlbuterol/Ipratropium 3 ML RTQ6H INH Albuterol/Ipratropium 3 ML RTQ2H PRN PRN INH Bisacodyl 10 MG DAILY PRN PRN PO Heparin Sodium 5,000 UNIT Q12HR SUBQ Amlodipine Besylate 5 MG DAILY PO (DC) Hydralazine HCl 10 MG Q6H PRN PRN IV Metoclopramide HCl 10 MG Q8H IV Sodium Chloride 10 ML ASDIR PRN IV Pantoprazole Sodium 40 MG DAILY IV Promethazine HCl 25 MG Q8H PRN PRN IM Diphenhydramine HCl 25 MG Q6H PRN PRN PO Benzonatate 100 MG Q6H PRN PRN PO Aspirin 81 MG DAILY PO Dextrose/Water 125 ML ASDIR PRN IV Dextrose/Water 250 ML ASDIR PRN IV Glucagon 1 MG ASDIR PRN IM Insulin Glargine 10 UNIT Q12HR SUBQ (DC) Al Hydrox/Mg Hydrox/Simethicone 30 ML Q4H PRN PRN PO Docusate Sodium 100 MG BID PRN PRN PO Ergocalciferol 50,000 INTL.UNITS Q7D PO (CKD) Hydrocodone Bitart/Acetaminophen 1 TAB Q6H PRN PRN PO Insulin Human Lispro 0 AC HS SUBQ Lactulose 20 GM Q6H PRN PRN PO Ondansetron HCl 4 MG Q4H PRN PRN IV Potassium Chloride 40 MEQ DAILY PRN PRN PO Ticagrelor 90 MG BID PO Zolpidem Tartrate 5 MG BEDTIME PRN PRN PO Acetaminophen 650 MG Q6H PRN PRN PO Atropine Sulfate 0.5 MG ASDIR PRN IV Atorvastatin Calcium 80 MG DAILY 1700 PO Morphine Sulfate 2 MG Q3H PRN PRN IV Portions of this section were scribed by Janice Donahue on 06/12/19 at 1252 Diagnosis, Assessment PlanProblem List/A P: 1. Community acquired pneumonia* s/p treatment with rocephin and Azihtromycin * now concerns for noscomial pneumonia:cont on Zyvox and cefepime day#4 out of 7days; change zyvox to po* Respiratory viral panel neg, strep pneumo ag neg 2. DM2 (diabetes mellitus, type 2) 3. Diabetic neuropathy 4. Acute on chronic renal failure 5. PAD (peripheral artery disease) Portions of this section were scribed by Janice Donahue on 06/12/19 at 1252 at 0858 RPT #:[id number] OF REPORTPRProgress [id number]:52:00G.[id number] le for patient bpddZLWAFVGLJZXZNZ8531-63-96A34:57:04 HCACL 2019-06-12 11:33:00 [id number]:33:00 [facility] [place] [facility] ([facility])Pulmonology Progress NoteREPORT#:[id number] REPORT STATUS: SignedDATE:06/12/19 TIME: 1133 PATIENT: DUSTY FRANCOIS UNIT #: [id number]#: [id number] [address] [birth year] AGE: 58 SEX: M ATTEND: Kyung Bedoya [facility] AUTHOR: Koko Chung MEDICATION ADMINISTRATION PROFESSIONAL * ALL edits or amendments must be made on the electronic/computer document * SubjectiveChief Complaint:He is doing better.Breathing is stable.Denies any N/V/D.Denies any Cp, chills, SOBBP and HR stable. Review of Systems ROSConstitutional:fatigue, generalized weakness. Respiratory:Reports: pneumonia. Denies: SORIANO (dyspnea on exertion), pleuritic pain, SOB, wheezing. Cardiovascular:Denies: edema, orthopnea. GI:Reports: abdominal pain, constipation, nausea. Denies: GERD, hiatal hernia. :Denies: flank pain, frequency, hematuria. Musculoskeletal:Denies: extremity swelling, joint pain. Endocrine:Denies: polydipsia, polyphagia. Neuro:Denies: dizziness, focal weakness, lightheaded. Objective Physical ExamVS/I O:Last Documented: Result Date Time Pulse Ox 93 06/12 1028 B/P 158/100 06/12 1028 B/P Mean 119.1 06/12 1028 O2 Delivery Nasal cannula 06/12 1028 Temp 36.7 06/12 1028 Pulse 96 06/12 1028 Resp 18 06/12 1028 O2 Flow Rate 10.414647 06/12 0813 FiO2 70 06/06 0215 24 hour I O ending at 0700: 06/12 0700 06/11 1900 Intake Total 860.00 800.00 Output Total 250 Balance 610.00 800.00 Intake, IV 500.00 400.00 Intake, Oral 360 400 Number 1 Bowel Movements Number Voids 3 3 Output, Urine 250 Patient Weight Weight (lb): 190Weight (oz): 0.62Weight (kg): 86.200 Medications:Active Meds + DC'd Last 24 HrsLinezolid 600 MG Q12HR PO Metoprolol Succinate 75 MG BID PO Cefepime HCl 1 GM Q6H IV Sodium Chloride 100 MLAmlodipine Besylate 10 MG DAILY PO Insulin Glargine 5 UNIT Q12HR SUBQ Linezolid 300 ML Q12HR IV (DC) Metoprolol Succinate 50 MG BID PO (DC) Cefepime HCl 1 GM Q8H IV (DC) Sodium Chloride 100 MLAlbuterol/Ipratropium 3 ML RTQ6H INH Albuterol/Ipratropium 3 ML RTQ2H PRN PRN INH Bisacodyl 10 MG DAILY PRN PRN PO Heparin Sodium 5,000 UNIT Q12HR SUBQ Amlodipine Besylate 5 MG DAILY PO (DC) Hydralazine HCl 10 MG Q6H PRN PRN IV Metoclopramide HCl 10 MG Q8H IV Sodium Chloride 10 ML ASDIR PRN IV Pantoprazole Sodium 40 MG DAILY IV Promethazine HCl 25 MG Q8H PRN PRN IM Diphenhydramine HCl 25 MG Q6H PRN PRN PO Benzonatate 100 MG Q6H PRN PRN PO Aspirin 81 MG DAILY PO Dextrose/Water 125 ML ASDIR PRN IV Dextrose/Water 250 ML ASDIR PRN IV Glucagon 1 MG ASDIR PRN IM Insulin Glargine 10 UNIT Q12HR SUBQ (DC) Al Hydrox/Mg Hydrox/Simethicone 30 ML Q4H PRN PRN PO Docusate Sodium 100 MG BID PRN PRN PO Ergocalciferol 50,000 INTL.UNITS Q7D PO (CKD) Hydrocodone Bitart/Acetaminophen 1 TAB Q6H PRN PRN PO Insulin Human Lispro 0 AC HS SUBQ Lactulose 20 GM Q6H PRN PRN PO Ondansetron HCl 4 MG Q4H PRN PRN IV Potassium Chloride 40 MEQ DAILY PRN PRN PO Ticagrelor 90 MG BID PO Zolpidem Tartrate 5 MG BEDTIME PRN PRN PO Acetaminophen 650 MG Q6H PRN PRN PO Atropine Sulfate 0.5 MG ASDIR PRN IV Atorvastatin Calcium 80 MG DAILY 1700 PO Morphine Sulfate 2 MG Q3H PRN PRN IV General appearance: alert, awake, orientedHead/eyes: PERRLACardiovascular: normal heart sounds, normal S1/H8Catzbravvgz/chest: on oxygen, symmetric expansion, no distressAbdomen: soft, non-tenderGenitourinary: no wallace, no bladder distentionMusculoskeletal: no muscle spasmNeuro/VACUUM FILTER OPERATOR: alert, oriented X 3, CNII-XII intactSkin: warm, dry, intact ResultsFindings/Data:Laboratory Tests 06/12/19 0528:[Embedded Image Not Available] 06/11/19 0450:[Embedded Image Not Available]Laboratory Tests 06/12 06/12 06/11 06/11 0726 0528 1944 1622 Chemistry Sodium (134 - 147 mEq/L) 142 Potassium (3.4 - 5.0 mEq/L) 4.0 Chloride (100 - 108 mEq/L) 107 Carbon Dioxide (21 - 33 mEq/L) 30 Anion Gap (0 - 20) 9 BUN (7 - 18 mg/dL) 19 H Creatinine (0.6 - 1.3 mg/dL) 1.7 H Glomerular Filtr Rate (90 - 95) 50.7 L Glucose (70 - 110 mg/dL) 158 H POC Glucose (70 - 110 MG/DL) 132 H 157 H 53 L Calcium (8.0 - 10.5 mg/dL) 8.7 Phosphorus (2.5 - 4.9 mg/dL) 3.0 Magnesium (1.8 - 2.4 mg/dL) 2.40 Laboratory Tests 06/12 0528 Hematology WBC (4.5 - 11.0 x10 3/uL) 10.36 RBC (4.00 - 5.60 x10 6/uL) 3.12 L Hgb (12.5 - 16.9 g/dL) 8.5 L Hct (37.5 - 50.7 %) 27.0 L MCV (81.0 - 99.0 fL) 86.5 MCH (27.0 - 33.0 pg) 27.2 MCHC (33.0 - 37.0 g/dL) 31.5 L RDW (11.5 - 14.5 %) 13.6 Plt Count (150 - 400 x10 3/uL) 452 H MPV (7.0 - 9.0 fL) 9.6 H Neut % (Auto) (56.0 - 77.0 %) 71.8 Lymph % (Auto) (14.0 - 32.0 %) 14.4 [place] % (Auto) (4.8 - 9.0 %) 9.2 H Eos % (Auto) (0.3 - 3.7 %) 4.0 H Baso % (Auto) (0.0 - 2.0 %) 0.1 Neut # (Auto) (2.0 - 7.6 x10 3/uL) 7.45 Lymph # (Auto) (1.0 - 3.8 x10 3/uL) 1.49 [place] # (Auto) (0.1 - 0.8 x10 3/uL) 0.95 H Eos # (Auto) (0.0 - 0.2 x10 3/uL) 0.41 H Baso # (Auto) (0.0 - 0.2 x10 3/uL) 0.01 Abs Immat Gran (auto) (0.00 - 0.03 x10 3/uL) 0.05 H Add Manual Diff NO Immature Gran % (0.0 - 2.0 %) 0.5 Nucleated RBC % (0 - 0 %) 0.0 Nucleated RBCs # (Man) (0.0 - 0.1 x10 3/uL) 0.00 Results: labs reviewed, vital signs stable, current med profile rev'd Treatment Prophylaxis Treatment ProphylaxisOxygen: nasal cannula Diagnosis, Assessment PlanHospital course to date:Assessment and Plan: - Acute hypoxic respiratory failure secondary to pneumonia.- Multifocal PNA, right and Left lobe, Nosocomial PNA.- Hypoxia , rule out PE.- Shortness of breath and hypoxia secondary to pneumonia and fluid overload.- Fluid overload.- Fecal Material on Right Colon.- Acute kidney injury secondary to meds.- Hyperkalemia.- Subacute infarction/cerebrovascular accident.- History of hypertension.- History of diabetes type 2.- History of hyperlipidemia.- Metabolic acidosis. - Venous doppler study negative.- Respiratory viral panel neg, strep pneumo ag neg PLAN: FloorContinue Laxatives for Constipation.Continue Zyvox and cefepime day#2 out of 7days per ID.Aggressive pulmonary toilet including incentive spirometry, nebulizer treatment,and O2 support.Cough medication.Need of sleep study to rule out sleep apnea.Monitor the kidney function.Statin and aspirin per neurologist for the cerebrovascular accident.Follow labs and replace as needed.SCD for DVT prophylaxis.Glycemic control, Accu-Chek a.c. and at bedtime, sliding scale, diabetic diet.Monitor. Code status: full codePlan discussed with: patient, admitting physician, consultants, nurse, special education case manager at 1300 RPT #:[id number] OF REPORTPRProgress [id number]:33:00G.[id number] for patient hylwYIEHVDDAFZUZVR9392-26-08T53:01:05 [facility] 2019-06-12 11:33:00 [id number]:33:00 H [facility] ([facility])Pulmonology Progress NoteREPORT#:[id number] REPORT STATUS: SignedDATE:06/12/19 TIME: 1133 PATIENT: DUSTY FRANCOIS UNIT #: [id number]#: [id number] ROOM/BED: 6606-1DOB: [birth year] AGE: 58 SEX: M ATTEND: Kynug Bedoya [facility] AUTHOR: Koko Chung MEDICATION ADMINISTRATION PROFESSIONAL * ALL edits or amendments must be made on the electronic/computer document * Koko Chung 06/12/19 1133:SubjectiveChief Complaint:He is doing better.Breathing is stable.Denies any N/V/D.Denies any Cp, chills, SOBBP and HR stable. Review of Systems ROSConstitutional:fatigue, generalized weakness. Respiratory:Reports: pneumonia. Denies: SORIANO (dyspnea on exertion), pleuritic pain, SOB, wheezing. Cardiovascular:Denies: edema, orthopnea. GI:Reports: abdominal pain, constipation, nausea. Denies: GERD, hiatal hernia. :Denies: flank pain, frequency, hematuria. Musculoskeletal:Denies: extremity swelling, joint pain. Endocrine:Denies: polydipsia, polyphagia. Neuro:Denies: dizziness, focal weakness, lightheaded. Objective Physical ExamVS/I O:Last Documented: Result Date Time Pulse Ox 93 06/12 1028 B/P 158/100 06/12 1028 B/P Mean 119.1 06/12 1028 O2 Delivery Nasal cannula 06/12 1028 Temp 36.7 06/12 1028 Pulse 96 06/12 1028 Resp 18 06/12 1028 O2 Flow Rate 10.704005 06/12 0813 FiO2 70 06/06 0215 24 hour I O ending at 0700: 06/12 0700 06/11 1900 Intake Total 860.00 800.00 Output Total 250 Balance 610.00 800.00 Intake, IV 500.00 400.00 Intake, Oral 360 400 Number 1 Bowel Movements Number Voids 3 3 Output, Urine 250 Patient Weight Weight (lb): 190Weight (oz): 0.62Weight (kg): 86.200 Medications:Active Meds + DC'd Last 24 HrsLinezolid 600 MG Q12HR PO Metoprolol Succinate 75 MG BID PO Cefepime HCl 1 GM Q6H IV Sodium Chloride 100 MLAmlodipine Besylate 10 MG DAILY PO Insulin Glargine 5 UNIT Q12HR SUBQ Linezolid 300 ML Q12HR IV (DC) Metoprolol Succinate 50 MG BID PO (DC) Cefepime HCl 1 GM Q8H IV (DC) Sodium Chloride 100 MLAlbuterol/Ipratropium 3 ML RTQ6H INH Albuterol/Ipratropium 3 ML RTQ2H PRN PRN INH Bisacodyl 10 MG DAILY PRN PRN PO Heparin Sodium 5,000 UNIT Q12HR SUBQ Amlodipine Besylate 5 MG DAILY PO (DC) Hydralazine HCl 10 MG Q6H PRN PRN IV Metoclopramide HCl 10 MG Q8H IV Sodium Chloride 10 ML ASDIR PRN IV Pantoprazole Sodium 40 MG DAILY IV Promethazine HCl 25 MG Q8H PRN PRN IM Diphenhydramine HCl 25 MG Q6H PRN PRN PO Benzonatate 100 MG Q6H PRN PRN PO Aspirin 81 MG DAILY PO Dextrose/Water 125 ML ASDIR PRN IV Dextrose/Water 250 ML ASDIR PRN IV Glucagon 1 MG ASDIR PRN IM Insulin Glargine 10 UNIT Q12HR SUBQ (DC) Al Hydrox/Mg Hydrox/Simethicone 30 ML Q4H PRN PRN PO Docusate Sodium 100 MG BID PRN PRN PO Ergocalciferol 50,000 INTL.UNITS Q7D PO (CKD) Hydrocodone Bitart/Acetaminophen 1 TAB Q6H PRN PRN PO Insulin Human Lispro 0 AC HS SUBQ Lactulose 20 GM Q6H PRN PRN PO Ondansetron HCl 4 MG Q4H PRN PRN IV Potassium Chloride 40 MEQ DAILY PRN PRN PO Ticagrelor 90 MG BID PO Zolpidem Tartrate 5 MG BEDTIME PRN PRN PO Acetaminophen 650 MG Q6H PRN PRN PO Atropine Sulfate 0.5 MG ASDIR PRN IV Atorvastatin Calcium 80 MG DAILY 1700 PO Morphine Sulfate 2 MG Q3H PRN PRN IV General appearance: alert, awake, orientedHead/eyes: PERRLACardiovascular: normal heart sounds, normal S1/B4Rfzulaqpqgf/chest: on oxygen, symmetric expansion, no distressAbdomen: soft, non-tenderGenitourinary: no wallace, no bladder distentionMusculoskeletal: no muscle spasmNeuro/VACUUM FILTER OPERATOR: alert, oriented X 3, CNII-XII intactSkin: warm, dry, intact ResultsFindings/Data:Laboratory Tests 06/12/19 0528:[Embedded Image Not Available] 06/11/19 0450:[Embedded Image Not Available]Laboratory Tests 06/12 06/12 06/11 06/11 0726 0528 1944 1622 Chemistry Sodium (134 - 147 mEq/L) 142 Potassium (3.4 - 5.0 mEq/L) 4.0 Chloride (100 - 108 mEq/L) 107 Carbon Dioxide (21 - 33 mEq/L) 30 Anion Gap (0 - 20) 9 BUN (7 - 18 mg/dL) 19 H Creatinine (0.6 - 1.3 mg/dL) 1.7 H Glomerular Filtr Rate (90 - 95) 50.7 L Glucose (70 - 110 mg/dL) 158 H POC Glucose (70 - 110 MG/DL) 132 H 157 H 53 L Calcium (8.0 - 10.5 mg/dL) 8.7 Phosphorus (2.5 - 4.9 mg/dL) 3.0 Magnesium (1.8 - 2.4 mg/dL) 2.40 Laboratory Tests 06/12 0528 Hematology WBC (4.5 - 11.0 x10 3/uL) 10.36 RBC (4.00 - 5.60 x10 6/uL) 3.12 L Hgb (12.5 - 16.9 g/dL) 8.5 L Hct (37.5 - 50.7 %) 27.0 L MCV (81.0 - 99.0 fL) 86.5 MCH (27.0 - 33.0 pg) 27.2 MCHC (33.0 - 37.0 g/dL) 31.5 L RDW (11.5 - 14.5 %) 13.6 Plt Count (150 - 400 x10 3/uL) 452 H MPV (7.0 - 9.0 fL) 9.6 H Neut % (Auto) (56.0 - 77.0 %) 71.8 Lymph % (Auto) (14.0 - 32.0 %) 14.4 Highland % (Auto) (4.8 - 9.0 %) 9.2 H Eos % (Auto) (0.3 - 3.7 %) 4.0 H Baso % (Auto) (0.0 - 2.0 %) 0.1 Neut # (Auto) (2.0 - 7.6 x10 3/uL) 7.45 Lymph # (Auto) (1.0 - 3.8 x10 3/uL) 1.49 [place]land # (Auto) (0.1 - 0.8 x10 3/uL) 0.95 H Eos # (Auto) (0.0 - 0.2 x10 3/uL) 0.41 H Baso # (Auto) (0.0 - 0.2 x10 3/uL) 0.01 Abs Immat Gran (auto) (0.00 - 0.03 x10 3/uL) 0.05 H Add Manual Diff NO Immature Gran % (0.0 - 2.0 %) 0.5 Nucleated RBC % (0 - 0 %) 0.0 Nucleated RBCs # (Man) (0.0 - 0.1 x10 3/uL) 0.00 Results: labs reviewed, vital signs stable, current med profile rev'd Treatment Prophylaxis Treatment ProphylaxisOxygen: nasal cannula Diagnosis, Assessment PlanHospital course to date:Assessment and Plan: - Acute hypoxic respiratory failure secondary to pneumonia.- Multifocal PNA, right and Left lobe, Nosocomial PNA.- Hypoxia , rule out PE.- Shortness of breath and hypoxia secondary to pneumonia and fluid overload.- Fluid overload.- Fecal Material on Right Colon.- Acute kidney injury secondary to meds.- Hyperkalemia.- Subacute infarction/cerebrovascular accident.- History of hypertension.- History of diabetes type 2.- History of hyperlipidemia.- Metabolic acidosis. - Venous doppler study negative.- Respiratory viral panel neg, strep pneumo ag neg PLAN: FloorContinue Laxatives for Constipation.Continue Zyvox and cefepime day#2 out of 7days per ID.Aggressive pulmonary toilet including incentive spirometry, nebulizer treatment,and O2 support.Cough medication.Need of sleep study to rule out sleep apnea.Monitor the kidney function.Statin and aspirin per neurologist for the cerebrovascular accident.Follow labs and replace as needed.SCD for DVT prophylaxis.Glycemic control, Accu-Chek a.c. and at bedtime, sliding scale, diabetic diet.Monitor. Code status: full codePlan discussed with: patient, admitting physician, consultants, nurse, special education case manager Antoine Lee 06/13/19 0110:Attestations Midlevel/Physician AttestationPhysician attestation:Agree with the findings and plan as documented by MEDICATION ADMINISTRATION PROFESSIONAL: as abovereviewedpt seen and examineddw RN at 1300 RPT #:[id number] OF REPORTPRProgress [id number]:33:[id number] le for patient [id number]:11:13 [facility] 2019-06-12 11:33:00 [id number]:33:00 [facility] ([facility])Pulmonology Progress NoteREPORT#:[id number] REPORT STATUS: SignedDATE:06/12/19 TIME: 1133 PATIENT: DUSTY FRANCOIS UNIT #: [id number]#: [id number] [address] [birth year] AGE: 58 SEX: M ATTEND: Kyung Bedoya [facility] AUTHOR: Koko Chung MEDICATION ADMINISTRATION PROFESSIONAL * ALL edits or amendments must be made on the electronic/computer document * Koko Chung 06/12/19 1133:SubjectiveChief Complaint:He is doing better.Breathing is stable.Denies any N/V/D.Denies any Cp, chills, SOBBP and HR stable. Review of Systems ROSConstitutional:fatigue, generalized weakness. Respiratory:Reports: pneumonia. Denies: SORIANO (dyspnea on exertion), pleuritic pain, SOB, wheezing. Cardiovascular:Denies: edema, orthopnea. GI:Reports: abdominal pain, constipation, nausea. Denies: GERD, hiatal hernia. :Denies: flank pain, frequency, hematuria. Musculoskeletal:Denies: extremity swelling, joint pain. Endocrine:Denies: polydipsia, polyphagia. Neuro:Denies: dizziness, focal weakness, lightheaded. Objective Physical ExamVS/I O:Last Documented: Result Date Time Pulse Ox 93 06/12 1028 B/P 158/100 06/12 1028 B/P Mean 119.1 06/12 1028 O2 Delivery Nasal cannula 06/12 1028 Temp 36.7 06/12 1028 Pulse 96 06/12 1028 Resp 18 06/12 1028 O2 Flow Rate 10.094374 06/12 0813 FiO2 70 06/06 0215 24 hour I O ending at 0700: 06/12 0700 06/11 1900 Intake Total 860.00 800.00 Output Total 250 Balance 610.00 800.00 Intake, IV 500.00 400.00 Intake, Oral 360 400 Number 1 Bowel Movements Number Voids 3 3 Output, Urine 250 Patient Weight Weight (lb): 190Weight (oz): 0.62Weight (kg): 86.200 Medications:Active Meds + DC'd Last 24 HrsLinezolid 600 MG Q12HR PO Metoprolol Succinate 75 MG BID PO Cefepime HCl 1 GM Q6H IV Sodium Chloride 100 MLAmlodipine Besylate 10 MG DAILY PO Insulin Glargine 5 UNIT Q12HR SUBQ Linezolid 300 ML Q12HR IV (DC) Metoprolol Succinate 50 MG BID PO (DC) Cefepime HCl 1 GM Q8H IV (DC) Sodium Chloride 100 MLAlbuterol/Ipratropium 3 ML RTQ6H INH Albuterol/Ipratropium 3 ML RTQ2H PRN PRN INH Bisacodyl 10 MG DAILY PRN PRN PO Heparin Sodium 5,000 UNIT Q12HR SUBQ Amlodipine Besylate 5 MG DAILY PO (DC) Hydralazine HCl 10 MG Q6H PRN PRN IV Metoclopramide HCl 10 MG Q8H IV Sodium Chloride 10 ML ASDIR PRN IV Pantoprazole Sodium 40 MG DAILY IV Promethazine HCl 25 MG Q8H PRN PRN IM Diphenhydramine HCl 25 MG Q6H PRN PRN PO Benzonatate 100 MG Q6H PRN PRN PO Aspirin 81 MG DAILY PO Dextrose/Water 125 ML ASDIR PRN IV Dextrose/Water 250 ML ASDIR PRN IV Glucagon 1 MG ASDIR PRN IM Insulin Glargine 10 UNIT Q12HR SUBQ (DC) Al Hydrox/Mg Hydrox/Simethicone 30 ML Q4H PRN PRN PO Docusate Sodium 100 MG BID PRN PRN PO Ergocalciferol 50,000 INTL.UNITS Q7D PO (CKD) Hydrocodone Bitart/Acetaminophen 1 TAB Q6H PRN PRN PO Insulin Human Lispro 0 AC HS SUBQ Lactulose 20 GM Q6H PRN PRN PO Ondansetron HCl 4 MG Q4H PRN PRN IV Potassium Chloride 40 MEQ DAILY PRN PRN PO Ticagrelor 90 MG BID PO Zolpidem Tartrate 5 MG BEDTIME PRN PRN PO Acetaminophen 650 MG Q6H PRN PRN PO Atropine Sulfate 0.5 MG ASDIR PRN IV Atorvastatin Calcium 80 MG DAILY 1700 PO Morphine Sulfate 2 MG Q3H PRN PRN IV General appearance: alert, awake, orientedHead/eyes: PERRLACardiovascular: normal heart sounds, normal S1/A2Uhskrcsuppa/chest: on oxygen, symmetric expansion, no distressAbdomen: soft, non-tenderGenitourinary: no wallace, no bladder distentionMusculoskeletal: no muscle spasmNeuro/VACUUM FILTER OPERATOR: alert, oriented X 3, CNII-XII intactSkin: warm, dry, intact ResultsFindings/Data:Laboratory Tests 06/12/19 0528:[Embedded Image Not Available] 06/11/19 0450:[Embedded Image Not Available]Laboratory Tests 06/12 06/12 06/11 06/11 0726 0528 1944 1622 Chemistry Sodium (134 - 147 mEq/L) 142 Potassium (3.4 - 5.0 mEq/L) 4.0 Chloride (100 - 108 mEq/L) 107 Carbon Dioxide (21 - 33 mEq/L) 30 Anion Gap (0 - 20) 9 BUN (7 - 18 mg/dL) 19 H Creatinine (0.6 - 1.3 mg/dL) 1.7 H Glomerular Filtr Rate (90 - 95) 50.7 L Glucose (70 - 110 mg/dL) 158 H POC Glucose (70 - 110 MG/DL) 132 H 157 H 53 L Calcium (8.0 - 10.5 mg/dL) 8.7 Phosphorus (2.5 - 4.9 mg/dL) 3.0 Magnesium (1.8 - 2.4 mg/dL) 2.40 Laboratory Tests 06/12 528 Hematology WBC (4.5 - 11.0 x10 3/uL) 10.36 RBC (4.00 - 5.60 x10 6/uL) 3.12 L Hgb (12.5 - 16.9 g/dL) 8.5 L Hct (37.5 - 50.7 %) 27.0 L MCV (81.0 - 99.0 fL) 86.5 MCH (27.0 - 33.0 pg) 27.2 MCHC (33.0 - 37.0 g/dL) 31.5 L RDW (11.5 - 14.5 %) 13.6 Plt Count (150 - 400 x10 3/uL) 452 H MPV (7.0 - 9.0 fL) 9.6 H Neut % (Auto) (56.0 - 77.0 %) 71.8 Lymph % (Auto) (14.0 - 32.0 %) 14.4 Highland % (Auto) (4.8 - 9.0 %) 9.2 H Eos % (Auto) (0.3 - 3.7 %) 4.0 H Baso % (Auto) (0.0 - 2.0 %) 0.1 Neut # (Auto) (2.0 - 7.6 x10 3/uL) 7.45 Lymph # (Auto) (1.0 - 3.8 x10 3/uL) 1.49 [place]land # (Auto) (0.1 - 0.8 x10 3/uL) 0.95 H Eos # (Auto) (0.0 - 0.2 x10 3/uL) 0.41 H Baso # (Auto) (0.0 - 0.2 x10 3/uL) 0.01 Abs Immat Gran (auto) (0.00 - 0.03 x10 3/uL) 0.05 H Add Manual Diff NO Immature Gran % (0.0 - 2.0 %) 0.5 Nucleated RBC % (0 - 0 %) 0.0 Nucleated RBCs # (Man) (0.0 - 0.1 x10 3/uL) 0.00 Results: labs reviewed, vital signs stable, current med profile rev'd Treatment Prophylaxis Treatment ProphylaxisOxygen: nasal cannula Diagnosis, Assessment PlanHospital course to date:Assessment and Plan: - Acute hypoxic respiratory failure secondary to pneumonia.- Multifocal PNA, right and Left lobe, Nosocomial PNA.- Hypoxia , rule out PE.- Shortness of breath and hypoxia secondary to pneumonia and fluid overload.- Fluid overload.- Fecal Material on Right Colon.- Acute kidney injury secondary to meds.- Hyperkalemia.- Subacute infarction/cerebrovascular accident.- History of hypertension.- History of diabetes type 2.- History of hyperlipidemia.- Metabolic acidosis. - Venous doppler study negative.- Respiratory viral panel neg, strep pneumo ag neg PLAN: FloorContinue Laxatives for Constipation.Continue Zyvox and cefepime day#2 out of 7days per ID.Aggressive pulmonary toilet including incentive spirometry, nebulizer treatment,and O2 support.Cough medication.Need of sleep study to rule out sleep apnea.Monitor the kidney function.Statin and aspirin per neurologist for the cerebrovascular accident.Follow labs and replace as needed.SCD for DVT prophylaxis.Glycemic control, Accu-Chek a.c. and at bedtime, sliding scale, diabetic diet.Monitor. Code status: full codePlan discussed with: patient, admitting physician, consultants, nurse, special education case manager Antoine Lee 06/13/19 0110:Attestations Midlevel/Physician AttestationPhysician attestation:Agree with the findings and plan as documented by MEDICATION ADMINISTRATION PROFESSIONAL: as abovereviewedpt seen and examineddw RN at 1300 RPT #:[id number] OF REPORTPRProgress [id number]:33:00G.[id number] for patient [id number]:11:13 [facility] 2019-06-12 11:33:00 [id number]:33:00 [facility] ([facility])Pulmonology Progress NoteREPORT#:[id number] REPORT STATUS: SignedDATE:06/12/19 TIME: 113 PATIENT: DUSTY FRANCOIS UNIT #: [id number]#: [id number] [address] [birth year] AGE: 58 SEX: M ATTEND: Kyung Bedoya [facility] AUTHOR: Koko Chung MEDICATION ADMINISTRATION PROFESSIONAL * ALL edits or amendments must be made on the electronic/computer document * Koko Chung 06/12/19 1133:SubjectiveChief Complaint:He is doing better.Breathing is stable.Denies any N/V/D.Denies any Cp, chills, SOBBP and HR stable. Review of Systems ROSConstitutional:fatigue, generalized weakness. Respiratory:Reports: pneumonia. Denies: SORIANO (dyspnea on exertion), pleuritic pain, SOB, wheezing. Cardiovascular:Denies: edema, orthopnea. GI:Reports: abdominal pain, constipation, nausea. Denies: GERD, hiatal hernia. :Denies: flank pain, frequency, hematuria. Musculoskeletal:Denies: extremity swelling, joint pain. Endocrine:Denies: polydipsia, polyphagia. Neuro:Denies: dizziness, focal weakness, lightheaded. Objective Physical ExamVS/I O:Last Documented: Result Date Time Pulse Ox 93 06/12 1028 B/P 158/100 06/12 1028 B/P Mean 119.1 06/12 1028 O2 Delivery Nasal cannula 06/12 1028 Temp 36.7 06/12 1028 Pulse 96 06/12 1028 Resp 18 06/12 1028 O2 Flow Rate 10.276263 06/12 0813 FiO2 70 06/06 0215 24 hour I O ending at 0700: 06/12 0700 06/11 1900 Intake Total 860.00 800.00 Output Total 250 Balance 610.00 800.00 Intake, IV 500.00 400.00 Intake, Oral 360 400 Number 1 Bowel Movements Number Voids 3 3 Output, Urine 250 Patient Weight Weight (lb): 190Weight (oz): 0.62Weight (kg): 86.200 Medications:Active Meds + DC'd Last 24 HrsLinezolid 600 MG Q12HR PO Metoprolol Succinate 75 MG BID PO Cefepime HCl 1 GM Q6H IV Sodium Chloride 100 MLAmlodipine Besylate 10 MG DAILY PO Insulin Glargine 5 UNIT Q12HR SUBQ Linezolid 300 ML Q12HR IV (DC) Metoprolol Succinate 50 MG BID PO (DC) Cefepime HCl 1 GM Q8H IV (DC) Sodium Chloride 100 MLAlbuterol/Ipratropium 3 ML RTQ6H INH Albuterol/Ipratropium 3 ML RTQ2H PRN PRN INH Bisacodyl 10 MG DAILY PRN PRN PO Heparin Sodium 5,000 UNIT Q12HR SUBQ Amlodipine Besylate 5 MG DAILY PO (DC) Hydralazine HCl 10 MG Q6H PRN PRN IV Metoclopramide HCl 10 MG Q8H IV Sodium Chloride 10 ML ASDIR PRN IV Pantoprazole Sodium 40 MG DAILY IV Promethazine HCl 25 MG Q8H PRN PRN IM Diphenhydramine HCl 25 MG Q6H PRN PRN PO Benzonatate 100 MG Q6H PRN PRN PO Aspirin 81 MG DAILY PO Dextrose/Water 125 ML ASDIR PRN IV Dextrose/Water 250 ML ASDIR PRN IV Glucagon 1 MG ASDIR PRN IM Insulin Glargine 10 UNIT Q12HR SUBQ (DC) Al Hydrox/Mg Hydrox/Simethicone 30 ML Q4H PRN PRN PO Docusate Sodium 100 MG BID PRN PRN PO Ergocalciferol 50,000 INTL.UNITS Q7D PO (CKD) Hydrocodone Bitart/Acetaminophen 1 TAB Q6H PRN PRN PO Insulin Human Lispro 0 AC HS SUBQ Lactulose 20 GM Q6H PRN PRN PO Ondansetron HCl 4 MG Q4H PRN PRN IV Potassium Chloride 40 MEQ DAILY PRN PRN PO Ticagrelor 90 MG BID PO Zolpidem Tartrate 5 MG BEDTIME PRN PRN PO Acetaminophen 650 MG Q6H PRN PRN PO Atropine Sulfate 0.5 MG ASDIR PRN IV Atorvastatin Calcium 80 MG DAILY 1700 PO Morphine Sulfate 2 MG Q3H PRN PRN IV General appearance: alert, awake, orientedHead/eyes: PERRLACardiovascular: normal heart sounds, normal S1/X4Bbelevxuylz/chest: on oxygen, symmetric expansion, no distressAbdomen: soft, non-tenderGenitourinary: no wallace, no bladder distentionMusculoskeletal: no muscle spasmNeuro/VACUUM FILTER OPERATOR: alert, oriented X 3, CNII-XII intactSkin: warm, dry, intact ResultsFindings/Data:Laboratory Tests 06/12/19 0528:[Embedded Image Not Available] 06/11/19 0450:[Embedded Image Not Available]Laboratory Tests 06/12 0528 1944 1622 Chemistry Sodium (134 - 147 mEq/L) 142 Potassium (3.4 - 5.0 mEq/L) 4.0 Chloride (100 - 108 mEq/L) 107 Carbon Dioxide (21 - 33 mEq/L) 30 Anion Gap (0 - 20) 9 BUN (7 - 18 mg/dL) 19 H Creatinine (0.6 - 1.3 mg/dL) 1.7 H Glomerular Filtr Rate (90 - 95) 50.7 L Glucose (70 - 110 mg/dL) 158 H POC Glucose (70 - 110 MG/DL) 132 H 157 H 53 L Calcium (8.0 - 10.5 mg/dL) 8.7 Phosphorus (2.5 - 4.9 mg/dL) 3.0 Magnesium (1.8 - 2.4 mg/dL) 2.40 Laboratory Tests 06/12 0528 Hematology WBC (4.5 - 11.0 x10 3/uL) 10.36 RBC (4.00 - 5.60 x10 6/uL) 3.12 L Hgb (12.5 - 16.9 g/dL) 8.5 L Hct (37.5 - 50.7 %) 27.0 L MCV (81.0 - 99.0 fL) 86.5 MCH (27.0 - 33.0 pg) 27.2 MCHC (33.0 - 37.0 g/dL) 31.5 L RDW (11.5 - 14.5 %) 13.6 Plt Count (150 - 400 x10 3/uL) 452 H MPV (7.0 - 9.0 fL) 9.6 H Neut % (Auto) (56.0 - 77.0 %) 71.8 Lymph % (Auto) (14.0 - 32.0 %) 14.4 [place]land % (Auto) (4.8 - 9.0 %) 9.2 H Eos % (Auto) (0.3 - 3.7 %) 4.0 H Baso % (Auto) (0.0 - 2.0 %) 0.1 Neut # (Auto) (2.0 - 7.6 x10 3/uL) 7.45 Lymph # (Auto) (1.0 - 3.8 x10 3/uL) 1.49 [place]land # (Auto) (0.1 - 0.8 x10 3/uL) 0.95 H Eos # (Auto) (0.0 - 0.2 x10 3/uL) 0.41 H Baso # (Auto) (0.0 - 0.2 x10 3/uL) 0.01 Abs Immat Gran (auto) (0.00 - 0.03 x10 3/uL) 0.05 H Add Manual Diff NO Immature Gran % (0.0 - 2.0 %) 0.5 Nucleated RBC % (0 - 0 %) 0.0 Nucleated RBCs # (Man) (0.0 - 0.1 x10 3/uL) 0.00 Results: labs reviewed, vital signs stable, current med profile rev'd Treatment Prophylaxis Treatment ProphylaxisOxygen: nasal cannula Diagnosis, Assessment PlanHospital course to date:Assessment and Plan: - Acute hypoxic respiratory failure secondary to pneumonia.- Multifocal PNA, right and Left lobe, Nosocomial PNA.- Hypoxia , rule out PE.- Shortness of breath and hypoxia secondary to pneumonia and fluid overload.- Fluid overload.- Fecal Material on Right Colon.- Acute kidney injury secondary to meds.- Hyperkalemia.- Subacute infarction/cerebrovascular accident.- History of hypertension.- History of diabetes type 2.- History of hyperlipidemia.- Metabolic acidosis. - Venous doppler study negative.- Respiratory viral panel neg, strep pneumo ag neg PLAN: FloorContinue Laxatives for Constipation.Continue Zyvox and cefepime day#2 out of 7days per ID.Aggressive pulmonary toilet including incentive spirometry, nebulizer treatment,and O2 support.Cough medication.Need of sleep study to rule out sleep apnea.Monitor the kidney function.Statin and aspirin per neurologist for the cerebrovascular accident.Follow labs and replace as needed.SCD for DVT prophylaxis.Glycemic control, Accu-Chek a.c. and at bedtime, sliding scale, diabetic diet.Monitor. Code status: full codePlan discussed with: patient, admitting physician, consultants, nurse, special education case manager Antoine Lee 06/13/19 0110:Attestations Midlevel/Physician AttestationPhysician attestation:Agree with the findings and plan as documented by MEDICATION ADMINISTRATION PROFESSIONAL: as abovereviewedpt seen and examineddw RN at 1300 at 0111 RPT #:[id number] OF REPORTPRProgress [id number]:33:00G.[id number] le for patient [id number]:12:14 [facility] 2019-06-12 06:44:00 [id number]:44:00 [facility] ([facility])Nephrology Progress NoteREPORT#:[id number] REPORT STATUS: SignedDATE:06/12/19 TIME: 06 PATIENT: DUSTY FRANCOIS UNIT #: [id number]#: [id number] [address] [birth year] AGE: 58 SEX: M ATTEND: Kyung Bedoya [facility] AUTHOR: Gideon Teran MD * ALL edits or amendments must be made on the electronic/computer document * SubjectiveChief Complaint:Syncope/NSTEMI/AKIPatient reports:No: complaints. Comments:Patient seen and evaluated, discussed with care team, HPI no change from initial, feels okay Review of SystemsConstitutional:Yes fatigue, No chills, No feverSkin:No abrasion, No bruisingAllergy/Immun:No hives, No itchingEyes:No redness, No dischargeENT:No ear drainage, No ear ringingRespiratory:Yes non productive cough, Yes SOBCardiovascular:No palpitations Objective GeneralVS/I O:Vital Signs:Date Time Temp Pulse Resp B/P B/P Pulse O2 O2 Flow FiO2 Mean Ox Delivery Rate06/12 0632 90 15 162/97 123 9806/ 0600 92 19 177/479 767 8180/ 0530 0519 97 28 165/86 117 87/ 0400 36.5 92 29 157/88 115 9806/ 0400 92 High flow 10.063838 nasal /29 0300 89 19 147/84 110 0200 90 19 159/95 122 96/ 0100 92 26 130 9306/ 0000 36.9 93 27 140/92 111 9306/ 2353 90 Nasal 4.568630 uvazsbz09/ 2330 9006/ 2300 90 23 125/67 9006/ 2230 2200 93 24 148/84 98921/28 1999 Nasal 4.979923 hmliifr01/28 2000 92 Nasal 4.771767 ytugiws5306/11 2000 37.2 91 22 138/75 101 7 1900 90 20 142/75 102 1700 93 26 134/79 102 1600 98 26 158/90 116 1500 91 18 138/76 101 1400 94 25 138/81 105 8806/11 1300 95 26 153/87 114 1200 37.007 1200 94 27 153/90 116 1100 95 24 162/94 122 0900 96 27 137/82 100 0825 93 15 159/86 115 0802 Nasal 3.822687 invxfck55/28 0711 90 22 138/82 105 0700 36.9 24 hour I O ending at 0700: 06/12 0700 06/11 1900 Intake Total 860.00 800.00 Output Total 250 Balance 610.00 800.00 Intake, IV 500.00 400.00 Intake, Oral 360 400 Number 1 Bowel Movements Number Voids 3 3 Output, Urine 250 MedicationsActive Meds + DC'd Last 24 HrsInsulin Glargine 5 UNIT Q12HR SUBQ Linezolid 300 ML Q12HR IV Metoprolol Succinate 50 MG BID PO Cefepime HCl 1 GM Q8H IV Sodium Chloride 100 MLAlbuterol/Ipratropium 3 ML RTQ6H INH Albuterol/Ipratropium 3 ML RTQ2H PRN PRN INH Bisacodyl 10 MG DAILY PRN PRN PO Heparin Sodium 5,000 UNIT Q12HR SUBQ Amlodipine Besylate 5 MG DAILY PO Hydralazine HCl 10 MG Q6H PRN PRN IV Metoclopramide HCl 10 MG Q8H IV Sodium Chloride 10 ML ASDIR PRN IV Pantoprazole Sodium 40 MG DAILY IV Promethazine HCl 25 MG Q8H PRN PRN IM Diphenhydramine HCl 25 MG Q6H PRN PRN PO Benzonatate 100 MG Q6H PRN PRN PO Aspirin 81 MG DAILY PO Dextrose/Water 125 ML ASDIR PRN IV Dextrose/Water 250 ML ASDIR PRN IV Glucagon 1 MG ASDIR PRN IM Insulin Glargine 10 UNIT Q12HR SUBQ (DC) Al Hydrox/Mg Hydrox/Simethicone 30 ML Q4H PRN PRN PO Docusate Sodium 100 MG BID PRN PRN PO Ergocalciferol 50,000 INTL.UNITS Q7D PO (CKD) Hydrocodone Bitart/Acetaminophen 1 TAB Q6H PRN PRN PO Insulin Human Lispro 0 AC HS SUBQ Lactulose 20 GM Q6H PRN PRN PO Ondansetron HCl 4 MG Q4H PRN PRN IV Potassium Chloride 40 MEQ DAILY PRN PRN PO Ticagrelor 90 MG BID PO Zolpidem Tartrate 5 MG BEDTIME PRN PRN PO Acetaminophen 650 MG Q6H PRN PRN PO Atropine Sulfate 0.5 MG ASDIR PRN IV Atorvastatin Calcium 80 MG DAILY 1700 PO Morphine Sulfate 2 MG Q3H PRN PRN IV Physical ExamGeneral appearance: alert, no acute distressHead/eyes: atraumatic, normocephalicENT: moist mucous membranes, normal noseNeck: supple/no meningismusCardiovascular: normal heart sounds, no rubRespiratory: aerating well, no distressAbdomen: non-tender, softGenitourinary: no flank pain, no foleyExtremities: non-tender, no edemaMusculoskeletal: no tenderenessNeuro/VACUUM FILTER OPERATOR: alert, normal speechSkin: dry, intact ResultsFindings/Data:Laboratory Tests 06/12 1944 1622 1121 0735 Chemistry Sodium (134 - 147 mEq/L) 142 Potassium (3.4 - 5.0 mEq/L) 4.0 Chloride (100 - 108 mEq/L) 107 Carbon Dioxide (21 - 33 mEq/L) 30 Anion Gap (0 - 20) 9 BUN (7 - 18 mg/dL) 19 H Creatinine (0.6 - 1.3 mg/dL) 1.7 H Glomerular Filtr Rate (90 - 95) 50.7 L Glucose (70 - 110 mg/dL) 158 H POC Glucose (70 - 110 MG/DL) 157 H 53 L 188 H 125 H Calcium (8.0 - 10.5 mg/dL) 8.7 Phosphorus (2.5 - 4.9 mg/dL) 3.0 Magnesium (1.8 - 2.4 mg/dL) 2.40 Laboratory Tests 07/29 0528 Hematology WBC (4.5 - 11.0 x10 3/uL) 10.36 RBC (4.00 - 5.60 x10 6/uL) 3.12 L Hgb (12.5 - 16.9 g/dL) 8.5 L Hct (37.5 - 50.7 %) 27.0 L MCV (81.0 - 99.0 fL) 86.5 MCH (27.0 - 33.0 pg) 27.2 MCHC (33.0 - 37.0 g/dL) 31.5 L RDW (11.5 - 14.5 %) 13.6 Plt Count (150 - 400 x10 3/uL) 452 H MPV (7.0 - 9.0 fL) 9.6 H Neut % (Auto) (56.0 - 77.0 %) 71.8 Lymph % (Auto) (14.0 - 32.0 %) 14.4 [place] % (Auto) (4.8 - 9.0 %) 9.2 H Eos % (Auto) (0.3 - 3.7 %) 4.0 H Baso % (Auto) (0.0 - 2.0 %) 0.1 Neut # (Auto) (2.0 - 7.6 x10 3/uL) 7.45 Lymph # (Auto) (1.0 - 3.8 x10 3/uL) 1.49 [place] # (Auto) (0.1 - 0.8 x10 3/uL) 0.95 H Eos # (Auto) (0.0 - 0.2 x10 3/uL) 0.41 H Baso # (Auto) (0.0 - 0.2 x10 3/uL) 0.01 Abs Immat Gran (auto) (0.00 - 0.03 x10 3/uL) 0.05 H Add Manual Diff NO Immature Gran % (0.0 - 2.0 %) 0.5 Nucleated RBC % (0 - 0 %) 0.0 Nucleated RBCs # (Man) (0.0 - 0.1 x10 3/uL) 0.00 Diagnosis, Assessment PlanFree Text A P:Patient seen and evaluated, discussed with care team, Images and laboratory reviewedHistory of HTN: metoprolol: Monitor BP closely and adjust medications as neededDM: insulin: Monitor BS closely and adjust medications as neededHLD: LipitorCAD s/p NSTEMI , s/p LHC and LAD/LCX PCI: ASA/TicagrelorPNA: Rocephin/AzithromaxSOB with elevated BNP, he has no LE edema, his SOB could be mainly related to his PNA, he is nauseated and eating, would hold off diuretcis if possibleAKI felisha related to CINHis baseline creat 1.2 in Sep 2018, eGFR 80 , felisha had some progression since then, check UA, urine P/creat ratio and renal USAcidosis: pH this AM 7.287/ Creat 3.6 stable, K WNL4.3, HCO3 22 better, renal US WNL06/08/19 Creat better 2.6, electrolytes acceptable, HCO3 23, continue IVF06/09/19 Creat 2.1 better, HCO3 27, Hgb 9, WBC 8.397/ Creat 1.7 better, HCO3 29 will d/c IVF , other electrolyts acceptable, Hgb 7.97 Creat 1.7 stable since yesterday, electrolytes acceptable06/12/19 Creat 1.7 stable, Electrolytes acceptable, Hgb 8.5, BP elevated increaseNorvasc to 10 mg daily at 0927 RPT #:[id number] OF REPORTPRProgress [id number]:44:00G.[id number] le for patient wrnvIETPCEWRQAXNED2436-15-64R77:28:11 [facility] 2019-06-11 13:21:00 [id number]:21:00 [facility] ([facility])Cardiology Progress NoteREPORT#:[id number] REPORT STATUS: SignedDATE:06/11/19 TIME: 1321 PATIENT: DUSTY FRANCOIS UNIT #: [id number]#: [id number] [address] [birth year] AGE: 58 SEX: M ATTEND: Kyung Bedoya AUTHOR: Jennifer Gonzalez MD * ALL edits or amendments must be made on the electronic/computer document * SubjectiveChief Complaint:event noted Objective GeneralVS/I O:Laboratory Tests: 06/10 06/10 06/11 06/11 06/11 1613 1929 0450 0735 1121Chemistry Sodium (134 - 147 mEq/L) 142 Potassium (3.4 - 5.0 mEq/L) 3.8 Chloride (100 - 108 mEq/L) 106 Carbon Dioxide (21 - 33 mEq/L) 33 Anion Gap (0 - 20) 7 BUN (7 - 18 mg/dL) 22 H Creatinine (0.6 - 1.3 mg/dL) 1.7 H Glomerular Filtr Rate (90 - 95) 50.7 L Glucose (70 - 110 mg/dL) 116 H POC Glucose (70 - 110 MG/DL) 53 L 158 H 125 H 188 H Calcium (8.0 - 10.5 mg/dL) 8.4 Phosphorus (2.5 - 4.9 mg/dL) 3.4 Magnesium (1.8 - 2.4 mg/dL) 2.40Hematology WBC (4.5 - 11.0 x10 3/uL) 9.32 RBC (4.00 - 5.60 x10 6/uL) 3.28 L Hgb (12.5 - 16.9 g/dL) 8.8 L Hct (37.5 - 50.7 %) 27.7 L MCV (81.0 - 99.0 fL) 84.5 MCH (27.0 - 33.0 pg) 26.8 L MCHC (33.0 - 37.0 g/dL) 31.8 L RDW (11.5 - 14.5 %) 13.3 Plt Count (150 - 400 x10 3/uL) 432 H MPV (7.0 - 9.0 fL) 9.7 H Neut % (Auto) (56.0 - 77.0 %) 65.0 Lymph % (Auto) (14.0 - 32.0 %) 17.9 Highland % (Auto) (4.8 - 9.0 %) 10.9 H Eos % (Auto) (0.3 - 3.7 %) 5.3 H Baso % (Auto) (0.0 - 2.0 %) 0.1 Neut # (Auto) (2.0 - 7.6 x10 3/uL) 6.06 Lymph # (Auto) (1.0 - 3.8 x10 3/uL) 1.67 Highland # (Auto) (0.1 - 0.8 x10 3/uL) 1.02 H Eos # (Auto) (0.0 - 0.2 x10 3/uL) 0.49 H Baso # (Auto) (0.0 - 0.2 x10 3/uL) 0.01 Abs Immat Gran (auto) (0.00 - 0.03 0.07 Hx10 3/uL) Add Manual Diff NO Immature Gran % (0.0 - 2.0 %) 0.8 Nucleated RBC % (0 - 0 %) 0.0 Nucleated RBCs # (Man) (0.0 - 0.1 0.00x10 3/uL) Current Medications Sig/Jean Carlos Start time LastMedication Dose Route Stop Time Status AdminLinezolid 300 ML Q12HR 06/09 2100 AC 06/11 IV 06/16 2059 0850Metoprolol 50 MG BID 06/09Succinate PO 07/09 2059 0852Cefepime HCl 1 GM Q8H 06/09 1115 AC 06/11Sodium Chloride 100 ML IV 06/16 1200 1135Albuterol/Ipratro 3 ML RTQ6H 06/08 2100 06/11pium INH 07/08 2059 0802Albuterol/Ipratro 3 ML RTQ2H PRN PRN 06/08 1845 AC 06/08pium INH 07/08 184 1843Bisacodyl 10 MG DAILY PRN PRN 06/08 1015 AC PO 07/08 1014Heparin Sodium 5,000 UNIT Q12HR 06/07 1300 AC 06/11 SUBQ 07/07 2059 0848Amlodipine 5 MG DAILY 06/06 2000 AC 06/11Besylate PO 07/06 1959 0849Hydralazine HCl 10 MG Q6H PRN PRN 06/06 IV 07/06 1959 0841Metoclopramide 10 MG Q8H 06/06 1230 AC 06/10HCl IV 08/22 1229 0427Sodium Chloride 10 ML ASDIR PRN 06/06 0430 AC IV 07/06 0429Pantoprazole 40 MG DAILY 06/06 0429 AC 06/11Sodium IV 07/06 0428 0849Promethazine HCl 25 MG Q8H PRN PRN 06/06 0030 AC 06/08 IM 07/06 0029 0748Diphenhydramine 25 MG Q6H PRN PRN 06/05 1945 AC 06/05HCl PO 07/05 194 1956Azithromycin 500 MG Q24H 06/05 1630 DC odium Chloride 250 ML IV 06/10 1629 1729Benzonatate 100 MG Q6H PRN PRN 06/05 1630 AC 06/05 PO 07/05 1629 2159Aspirin 81 MG DAILY 06/05 0900 AC 06/11 PO 07/05 0859 0847Dextrose/Water 125 ML ASDIR PRN 06/05 0815 AC IV 07/05 0814Dextrose/Water 250 ML ASDIR PRN 06/05 0815 AC IV 07/05 0814Glucagon 1 MG ASDIR PRN 06/05 0815 AC IM 07/05 0814Insulin Glargine 10 UNIT Q12HR 06/04 2103 AC 06/11 SUBQ 07/04 2102 0848Al Hydrox/Mg 30 ML Q4H PRN PRN 06/04 2100 ACHydrox/Simethicone PO 07/04 2059Docusate Sodium 100 MG BID PRN PRN 06/04 2100 AC 06/08 PO 07/04 2059 0848Ergocalciferol 50,000 INTL.UNITS Q7D 06/04 2100 CKD 06/04 PO 07/04 2059 2216Hydrocodone 1 TAB Q6H PRN PRN 06/04 2100 ACBitart/Acetaminophen PO 07/04 2059Insulin Human 0 AC HS 06/04 2100 AC 06/10Lispro SUBQ 07/04 2059 1354Lactulose 20 GM Q6H PRN PRN 06/04 2100 AC 06/08 PO 07/04 2059 0847Ondansetron HCl 4 MG Q4H PRN PRN 06/04 2100 AC 06/07 IV 07/04 2059 0635Potassium 40 MEQ DAILY PRN PRN 07/21 2100 ACChloride PO 07/04 2059Ticagrelor 90 MG BID 06/04 2100 AC 06/11 PO 07/04 2059 0848Zolpidem Tartrate 5 MG BEDTIME PRN PRN 06/04 2100 AC 06/10 PO 07/04 2059 2033Acetaminophen 650 MG Q6H PRN PRN 06/04 1415 AC 06/10 PO 07/04 1414 0834Atropine Sulfate 0.5 MG ASDIR PRN 06/04 1415 AC IV 07/04 1414Atorvastatin 80 MG DAILY 1700 06/04 0415 AC 06/10Calcium PO 07/04 414 1810Morphine Sulfate 2 MG Q3H PRN PRN 06/04 415 AC IV 06/18 0414 24 hour I O ending at 0700: 06/10 1900 06/11 0700 Intake Total 1000.00 740.00 Output Total 425 Balance 575.00 740.00 Intake, IV 400.00 500.00 Intake, Oral 600 240 Number 1 Bowel Movements Number Voids 2 Output, Urine 425 Vital Signs: Date Time Temp Pulse Resp B/P B/P Pulse O2 O2 Flow FiO2 Mean Ox Delivery Rate 06/11 1200 94 27 153/90 116 93 06/11 1100 95 24 162/94 122 93 06/11 0900 96 27 137/82 100 92 06/11 0825 93 15 159/86 115 92 06/11 0802 Nasal 3.931105 cannula 06/11 0711 90 22 138/82 105 96 06/11 0700 98.5 06/11 0618 94 06/11 0600 91 18 156/83 113 90 06/11 0500 87 17 148/82 109 98 06/11 0400 98.4 82 18 125/68 92 94 06/11 0300 84 20 151/88 114 91 06/11 0200 82 26 130/80 100 95 06/11 0100 82 20 127/77 97 95 06/11 0000 98.6 84 19 120/70 89 94 06/10 2300 90 16 135/83 104 93 06/10 2200 91 14 123/74 93 91 06/10 2100 93 14 144/83 108 91 06/10 2012 97 Nasal 3.758963 cannula 06/10 2000 Nasal 4.432295 cannula 06/10 2000 98.4 91 22 132/81 101 94 06/10 1900 88 21 135/76 100 96 06/10 1800 91 19 127/71 94 94 06/10 1700 91 7 146/87 111 93 06/10 1600 98.9 06/10 1600 88 15 129/79 99 91 06/10 1500 90 17 119/69 87 96 06/10 1400 91 26 133/76 99 91 Patient Weight Weight (lb): 190Weight (oz): 0.62Weight (kg): 86.200 Physical ExamGeneral appearance: alertHead/Eyes: atraumatic, normocephalicENT: moist mucosal membranesNeck: non-tender, supple/no meningismus, no JVD, no lymphadenopathy, no masses or swellingCardiovascular: CV assessment: regular rate and rhythm, normal heart soundsRespiratory: clear to auscultation, no distressAbdomen: soft, non-tender, normal bowel soundsGenitourinary: no bladder distentionUpper extremity: UE assessment: no clubbing, no cyanosisLower extremity: LE assessment: no clubbing, no cyanosis, no edemaMusculoskeletal: full range of motionNeuro/VACUUM FILTER OPERATOR: alert, oriented X 3Skin: dry, intactPsychiatry: normal affect Diagnosis, Assessment Plan Free Text DxA P NotesFree Text DxA P Notes:1. Non-ST elevation myocardial infarction. s/p PCI of thrombotic occlusion of the mid RCA, and mid LADcontinue optimal medical therapy- brilinta, asa, statin, bbEcho: EF 45-50% 3. Hypertensionoptimize meds to control bpprn medications available 4. Subacute CVAper Neurologycarotid dopplers negativemonitor for arrhythmiavenous dopplers negative 5. BRENDA/CKDper Nephrologydiuresis as needed for Nephrology 6. PNAID consulted 7. DM at 1321 RPT #:[id number] OF REPORTPRProgress [id number]:21:00G.[id number] le for patient [id number]:22:08 [facility] 2019-06-11 13:05:00 [id number]:05:00 [facility] ([facility])Pulmonology Progress NoteREPORT#:[id number] REPORT STATUS: SignedDATE:06/11/19 TIME: 1305 PATIENT: DUSTY FRANCOIS UNIT #: [id number]#: [id number] [place] [facility] [place]DOB: [birth year] AGE: 58 SEX: M ATTEND: Kyung Bedoya [facility] AUTHOR: Koko Chung MEDICATION ADMINISTRATION PROFESSIONAL * ALL edits or amendments must be made on the electronic/computer document * SubjectiveChief Complaint:He is on 4 liter NC.Mild SOB with exertion.Breathing is stable.Denies any N/V/D.Denies any Cp, chills, SOBBP and HR stable. Review of Systems ROSConstitutional:fatigue, generalized weakness. Respiratory:Reports: pneumonia. Denies: SORIANO (dyspnea on exertion), pleuritic pain, SOB, wheezing. Cardiovascular:Denies: edema, orthopnea. GI:Reports: abdominal pain, constipation, nausea. Denies: GERD, hiatal hernia. :Denies: flank pain, frequency, hematuria. Musculoskeletal:Denies: extremity swelling, joint pain. Endocrine:Denies: polydipsia, polyphagia. Neuro:Denies: dizziness, focal weakness, lightheaded. Objective Physical ExamVS/I O:Last Documented: Result Date Time Pulse Ox 93 06/11 1200 B/P 153/90 06/11 1200 B/P Mean 116 06/11 1200 Pulse 94 06/11 1200 Resp 27 06/11 1200 O2 Delivery Nasal cannula 06/11 0802 O2 Flow Rate 3.523189 06/11 0802 Temp 36.9 06/11 0700 FiO2 70 06/06 0215 24 hour I O ending at 0700: 06/11 0700 06/10 1900 Intake Total 740.00 1000.00 Output Total 425 Balance 740.00 575.00 Intake, IV 500.00 400.00 Intake, Oral 240 600 Number 1 Bowel Movements Number Voids 2 Output, Urine 425 Patient Weight Weight (lb): 190Weight (oz): 0.62Weight (kg): 86.200 Medications:Active Meds + DC'd Last 24 HrsLinezolid 300 ML Q12HR IV Metoprolol Succinate 50 MG BID PO Cefepime HCl 1 GM Q8H IV Sodium Chloride 100 MLAlbuterol/Ipratropium 3 ML RTQ6H INH Albuterol/Ipratropium 3 ML RTQ2H PRN PRN INH Bisacodyl 10 MG DAILY PRN PRN PO Heparin Sodium 5,000 UNIT Q12HR SUBQ Amlodipine Besylate 5 MG DAILY PO Hydralazine HCl 10 MG Q6H PRN PRN IV Metoclopramide HCl 10 MG Q8H IV Sodium Chloride 10 ML ASDIR PRN IV Pantoprazole Sodium 40 MG DAILY IV Promethazine HCl 25 MG Q8H PRN PRN IM Diphenhydramine HCl 25 MG Q6H PRN PRN PO Azithromycin 500 MG Q24H IV (DC) Sodium Chloride 250 MLBenzonatate 100 MG Q6H PRN PRN PO Aspirin 81 MG DAILY PO Dextrose/Water 125 ML ASDIR PRN IV Dextrose/Water 250 ML ASDIR PRN IV Glucagon 1 MG ASDIR PRN IM Insulin Glargine 10 UNIT Q12HR SUBQ Al Hydrox/Mg Hydrox/Simethicone 30 ML Q4H PRN PRN PO Docusate Sodium 100 MG BID PRN PRN PO Ergocalciferol 50,000 INTL.UNITS Q7D PO (CKD) Hydrocodone Bitart/Acetaminophen 1 TAB Q6H PRN PRN PO Insulin Human Lispro 0 AC HS SUBQ Lactulose 20 GM Q6H PRN PRN PO Ondansetron HCl 4 MG Q4H PRN PRN IV Potassium Chloride 40 MEQ DAILY PRN PRN PO Ticagrelor 90 MG BID PO Zolpidem Tartrate 5 MG BEDTIME PRN PRN PO Acetaminophen 650 MG Q6H PRN PRN PO Atropine Sulfate 0.5 MG ASDIR PRN IV Atorvastatin Calcium 80 MG DAILY 1700 PO Morphine Sulfate 2 MG Q3H PRN PRN IV General appearance: awake, oriented, no respiratory distressHead/eyes: PERRLACardiovascular: normal heart sounds, normal S1/Y2Qyevxgwbcek/chest: on oxygen, symmetric expansion, no distressAbdomen: soft, non-tenderGenitourinary: no wallace, no bladder distentionMusculoskeletal: no muscle spasmNeuro/VACUUM FILTER OPERATOR: alert, oriented X 3, CNII-XII intactSkin: warm, dry, intact ResultsFindings/Data:24 hours ending at 0700 06/11 0700 06/10 2300 06/10 1500 Intake Total 740.00 1000.00 Output Total 425 Balance 740.00 575.00 Intake, IV 500.00 400.00 Intake, Oral 240 600 Number 1 Bowel Movements Number Voids 2 Output, Urine 425 24 Hour I O Total 06/11 0700 Intake Total 1740.00 Output Total 425 Balance 1315.00 Laboratory Tests 06/11/19 0450:[Embedded Image Not Available] 06/10/19 0445:[Embedded Image Not Available]Laboratory Tests 06/11 06/11 06/11 06/10 06/10 1121 0735 0450 1929 1613 Chemistry Sodium (134 - 147 mEq/L) 142 Potassium (3.4 - 5.0 mEq/L) 3.8 Chloride (100 - 108 mEq/L) 106 Carbon Dioxide (21 - 33 mEq/L) 33 Anion Gap (0 - 20) 7 BUN (7 - 18 mg/dL) 22 H Creatinine (0.6 - 1.3 mg/dL) 1.7 H Glomerular Filtr Rate (90 - 95) 50.7 L Glucose (70 - 110 mg/dL) 116 H POC Glucose (70 - 110 MG/DL) 188 H 125 H 158 H 53 L Calcium (8.0 - 10.5 mg/dL) 8.4 Phosphorus (2.5 - 4.9 mg/dL) 3.4 Magnesium (1.8 - 2.4 mg/dL) 2.40 Laboratory Tests 06/11 450 Hematology WBC (4.5 - 11.0 x10 3/uL) 9.32 RBC (4.00 - 5.60 x10 6/uL) 3.28 L Hgb (12.5 - 16.9 g/dL) 8.8 L Hct (37.5 - 50.7 %) 27.7 L MCV (81.0 - 99.0 fL) 84.5 MCH (27.0 - 33.0 pg) 26.8 L MCHC (33.0 - 37.0 g/dL) 31.8 L RDW (11.5 - 14.5 %) 13.3 Plt Count (150 - 400 x10 3/uL) 432 H MPV (7.0 - 9.0 fL) 9.7 H Neut % (Auto) (56.0 - 77.0 %) 65.0 Lymph % (Auto) (14.0 - 32.0 %) 17.9 Highland % (Auto) (4.8 - 9.0 %) 10.9 H Eos % (Auto) (0.3 - 3.7 %) 5.3 H Baso % (Auto) (0.0 - 2.0 %) 0.1 Neut # (Auto) (2.0 - 7.6 x10 3/uL) 6.06 Lymph # (Auto) (1.0 - 3.8 x10 3/uL) 1.67 [place]land # (Auto) (0.1 - 0.8 x10 3/uL) 1.02 H Eos # (Auto) (0.0 - 0.2 x10 3/uL) 0.49 H Baso # (Auto) (0.0 - 0.2 x10 3/uL) 0.01 Abs Immat Gran (auto) (0.00 - 0.03 x10 3/uL) 0.07 H Add Manual Diff NO Immature Gran % (0.0 - 2.0 %) 0.8 Nucleated RBC % (0 - 0 %) 0.0 Nucleated RBCs # (Man) (0.0 - 0.1 x10 3/uL) 0.00 Results: labs reviewed, vital signs stable, current med profile rev'd Treatment Prophylaxis Treatment ProphylaxisOxygen: nasal cannula Diagnosis, Assessment PlanHospital course to date:Assessment and Plan: - Acute hypoxic respiratory failure secondary to pneumonia.- Multifocal PNA, right and Left lobe.- Hypoxia , rule out PE.- Shortness of breath and hypoxia secondary to pneumonia and fluid overload.- Fluid overload.- Fecal Material on Right Colon.- Acute kidney injury secondary to meds.- Hyperkalemia.- Subacute infarction/cerebrovascular accident.- History of hypertension.- History of diabetes type 2.- History of hyperlipidemia.- Metabolic acidosis. - Venous doppler study negative. PLAN: CCU.Continue Laxatives for Constipation.Continue IV ABX for PNA.Aggressive pulmonary toilet including incentive spirometry, nebulizer treatment,and O2 support.Cough medication.Need of sleep study to rule out sleep apnea.Monitor the kidney function.Statin and aspirin per neurologist for the cerebrovascular accident.Follow labs and replace as needed.SCD for DVT prophylaxis.Glycemic control, Accu-Chek a.c. and at bedtime, sliding scale, diabetic diet.Monitor. Code status: full codePlan discussed with: patient, family, consultants, nurse at 1306 RPT #:[id number] OF REPORTPRProgress [id number]:05:00G.[id number] le for patient bkzjIFJYXZOCTZCOHD3315-61-81I09:06:57 [facility] 2019-06-11 13:05:00 [id number]:05:00 [facility] ([facility])Pulmonology Progress NoteREPORT#:[id number] REPORT STATUS: SignedDATE:06/11/19 TIME: 1305 PATIENT: DUSTY FRANCOIS UNIT #: [id number]#: [id number] [address] [birth year] AGE: 58 SEX: M ATTEND: Kyung Bedoya MDADM AUTHOR: Koko Chung NP * ALL edits or amendments must be made on the electronic/computer document * Koko Chung 06/11/19 1305:SubjectiveChief Complaint:He is on 4 liter NC.Mild SOB with exertion.Breathing is stable.Denies any N/V/D.Denies any Cp, chills, SOBBP and HR stable. Review of Systems ROSConstitutional:fatigue, generalized weakness. Respiratory:Reports: pneumonia. Denies: SORIANO (dyspnea on exertion), pleuritic pain, SOB, wheezing. Cardiovascular:Denies: edema, orthopnea. GI:Reports: abdominal pain, constipation, nausea. Denies: GERD, hiatal hernia. :Denies: flank pain, frequency, hematuria. Musculoskeletal:Denies: extremity swelling, joint pain. Endocrine:Denies: polydipsia, polyphagia. Neuro:Denies: dizziness, focal weakness, lightheaded. Objective Physical ExamVS/I O:Last Documented: Result Date Time Pulse Ox 93 06/11 1200 B/P 153/90 06/11 1200 B/P Mean 116 06/11 1200 Pulse 94 06/11 1200 Resp 27 06/11 1200 O2 Delivery Nasal cannula 06/11 0802 O2 Flow Rate 3.091182 06/11 0802 Temp 36.9 06/11 0700 FiO2 70 06/06 0215 24 hour I O ending at 0700: 06/11 0700 06/10 1900 Intake Total 740.00 1000.00 Output Total 425 Balance 740.00 575.00 Intake, IV 500.00 400.00 Intake, Oral 240 600 Number 1 Bowel Movements Number Voids 2 Output, Urine 425 Patient Weight Weight (lb): 190Weight (oz): 0.62Weight (kg): 86.200 Medications:Active Meds + DC'd Last 24 HrsLinezolid 300 ML Q12HR IV Metoprolol Succinate 50 MG BID PO Cefepime HCl 1 GM Q8H IV Sodium Chloride 100 MLAlbuterol/Ipratropium 3 ML RTQ6H INH Albuterol/Ipratropium 3 ML RTQ2H PRN PRN INH Bisacodyl 10 MG DAILY PRN PRN PO Heparin Sodium 5,000 UNIT Q12HR SUBQ Amlodipine Besylate 5 MG DAILY PO Hydralazine HCl 10 MG Q6H PRN PRN IV Metoclopramide HCl 10 MG Q8H IV Sodium Chloride 10 ML ASDIR PRN IV Pantoprazole Sodium 40 MG DAILY IV Promethazine HCl 25 MG Q8H PRN PRN IM Diphenhydramine HCl 25 MG Q6H PRN PRN PO Azithromycin 500 MG Q24H IV (DC) Sodium Chloride 250 MLBenzonatate 100 MG Q6H PRN PRN PO Aspirin 81 MG DAILY PO Dextrose/Water 125 ML ASDIR PRN IV Dextrose/Water 250 ML ASDIR PRN IV Glucagon 1 MG ASDIR PRN IM Insulin Glargine 10 UNIT Q12HR SUBQ Al Hydrox/Mg Hydrox/Simethicone 30 ML Q4H PRN PRN PO Docusate Sodium 100 MG BID PRN PRN PO Ergocalciferol 50,000 INTL.UNITS Q7D PO (CKD) Hydrocodone Bitart/Acetaminophen 1 TAB Q6H PRN PRN PO Insulin Human Lispro 0 AC HS SUBQ Lactulose 20 GM Q6H PRN PRN PO Ondansetron HCl 4 MG Q4H PRN PRN IV Potassium Chloride 40 MEQ DAILY PRN PRN PO Ticagrelor 90 MG BID PO Zolpidem Tartrate 5 MG BEDTIME PRN PRN PO Acetaminophen 650 MG Q6H PRN PRN PO Atropine Sulfate 0.5 MG ASDIR PRN IV Atorvastatin Calcium 80 MG DAILY 1700 PO Morphine Sulfate 2 MG Q3H PRN PRN IV General appearance: awake, oriented, no respiratory distressHead/eyes: PERRLACardiovascular: normal heart sounds, normal S1/E1Klyqejclbuw/chest: on oxygen, symmetric expansion, no distressAbdomen: soft, non-tenderGenitourinary: no wallace, no bladder distentionMusculoskeletal: no muscle spasmNeuro/VACUUM FILTER OPERATOR: alert, oriented X 3, CNII-XII intactSkin: warm, dry, intact ResultsFindings/Data:24 hours ending at 0700 06/11 0700 06/10 2300 06/10 1500 Intake Total 740.00 1000.00 Output Total 425 Balance 740.00 575.00 Intake, IV 500.00 400.00 Intake, Oral 240 600 Number 1 Bowel Movements Number Voids 2 Output, Urine 425 24 Hour I O Total 06/11 0700 Intake Total 1740.00 Output Total 425 Balance 1315.00 Laboratory Tests 06/11/19 0450:[Embedded Image Not Available] 06/10/19 0445:[Embedded Image Not Available]Laboratory Tests 06/11 06/11 06/11 06/10 06/10 1121 0735 0450 1929 1613 Chemistry Sodium (134 - 147 mEq/L) 142 Potassium (3.4 - 5.0 mEq/L) 3.8 Chloride (100 - 108 mEq/L) 106 Carbon Dioxide (21 - 33 mEq/L) 33 Anion Gap (0 - 20) 7 BUN (7 - 18 mg/dL) 22 H Creatinine (0.6 - 1.3 mg/dL) 1.7 H Glomerular Filtr Rate (90 - 95) 50.7 L Glucose (70 - 110 mg/dL) 116 H POC Glucose (70 - 110 MG/DL) 188 H 125 H 158 H 53 L Calcium (8.0 - 10.5 mg/dL) 8.4 Phosphorus (2.5 - 4.9 mg/dL) 3.4 Magnesium (1.8 - 2.4 mg/dL) 2.40 Laboratory Tests 06/11 0450 Hematology WBC (4.5 - 11.0 x10 3/uL) 9.32 RBC (4.00 - 5.60 x10 6/uL) 3.28 L Hgb (12.5 - 16.9 g/dL) 8.8 L Hct (37.5 - 50.7 %) 27.7 L MCV (81.0 - 99.0 fL) 84.5 MCH (27.0 - 33.0 pg) 26.8 L MCHC (33.0 - 37.0 g/dL) 31.8 L RDW (11.5 - 14.5 %) 13.3 Plt Count (150 - 400 x10 3/uL) 432 H MPV (7.0 - 9.0 fL) 9.7 H Neut % (Auto) (56.0 - 77.0 %) 65.0 Lymph % (Auto) (14.0 - 32.0 %) 17.9 [place]land % (Auto) (4.8 - 9.0 %) 10.9 H Eos % (Auto) (0.3 - 3.7 %) 5.3 H Baso % (Auto) (0.0 - 2.0 %) 0.1 Neut # (Auto) (2.0 - 7.6 x10 3/uL) 6.06 Lymph # (Auto) (1.0 - 3.8 x10 3/uL) 1.67 [place]land # (Auto) (0.1 - 0.8 x10 3/uL) 1.02 H Eos # (Auto) (0.0 - 0.2 x10 3/uL) 0.49 H Baso # (Auto) (0.0 - 0.2 x10 3/uL) 0.01 Abs Immat Gran (auto) (0.00 - 0.03 x10 3/uL) 0.07 H Add Manual Diff NO Immature Gran % (0.0 - 2.0 %) 0.8 Nucleated RBC % (0 - 0 %) 0.0 Nucleated RBCs # (Man) (0.0 - 0.1 x10 3/uL) 0.00 Results: labs reviewed, vital signs stable, current med profile rev'd Treatment Prophylaxis Treatment ProphylaxisOxygen: nasal cannula Diagnosis, Assessment PlanHospital course to date:Assessment and Plan: - Acute hypoxic respiratory failure secondary to pneumonia.- Multifocal PNA, right and Left lobe.- Hypoxia , rule out PE.- Shortness of breath and hypoxia secondary to pneumonia and fluid overload.- Fluid overload.- Fecal Material on Right Colon.- Acute kidney injury secondary to meds.- Hyperkalemia.- Subacute infarction/cerebrovascular accident.- History of hypertension.- History of diabetes type 2.- History of hyperlipidemia.- Metabolic acidosis. - Venous doppler study negative. PLAN: CCU.Continue Laxatives for Constipation.Continue IV ABX for PNA.Aggressive pulmonary toilet including incentive spirometry, nebulizer treatment,and O2 support.Cough medication.Need of sleep study to rule out sleep apnea.Monitor the kidney function.Statin and aspirin per neurologist for the cerebrovascular accident.Follow labs and replace as needed.SCD for DVT prophylaxis.Glycemic control, Accu-Chek a.c. and at bedtime, sliding scale, diabetic diet.Monitor. Code status: full codePlan discussed with: patient, family, consultants, Antoine Raymundo 06/13/19 0116:Attestations Midlevel/Physician AttestationPhysician attestation:Agree with the findings and plan as documented by MEDICATION ADMINISTRATION PROFESSIONAL: as abovereviewedpt seen and examineddw RN at 1306 RPT #:[id number] OF REPORTPRProgress [id number]:05:00G.[id number] for patient [id number]:16:54 [facility] 2019-06-11 13:05:00 [id number]:05:00 [facility] ([facility])Pulmonology Progress NoteREPORT#:[id number] REPORT STATUS: SignedDATE:06/11/19 TIME: 1305 PATIENT: DUSTY FRANCOIS UNIT #: [id number]#: [id number] [address] [birth year] AGE: 58 SEX: M ATTEND: Kyung Bedoya [facility] AUTHOR: Koko Chung MEDICATION ADMINISTRATION PROFESSIONAL * ALL edits or amendments must be made on the electronic/computer document * SheldonKoko 06/11/19 1305:SubjectiveChief Complaint:He is on 4 liter NC.Mild SOB with exertion.Breathing is stable.Denies any N/V/D.Denies any Cp, chills, SOBBP and HR stable. Review of Systems ROSConstitutional:fatigue, generalized weakness. Respiratory:Reports: pneumonia. Denies: SORIANO (dyspnea on exertion), pleuritic pain, SOB, wheezing. Cardiovascular:Denies: edema, orthopnea. GI:Reports: abdominal pain, constipation, nausea. Denies: GERD, hiatal hernia. :Denies: flank pain, frequency, hematuria. Musculoskeletal:Denies: extremity swelling, joint pain. Endocrine:Denies: polydipsia, polyphagia. Neuro:Denies: dizziness, focal weakness, lightheaded. Objective Physical ExamVS/I O:Last Documented: Result Date Time Pulse Ox 93 06/11 1200 B/P 153/90 06/11 1200 B/P Mean 116 06/11 1200 Pulse 94 06/11 1200 Resp 27 06/11 1200 O2 Delivery Nasal cannula 06/11 0802 O2 Flow Rate 3.810512 06/11 0802 Temp 36.9 06/11 0700 FiO2 70 06/06 0215 24 hour I O ending at 0700: 06/11 0700 06/10 1900 Intake Total 740.00 1000.00 Output Total 425 Balance 740.00 575.00 Intake, IV 500.00 400.00 Intake, Oral 240 600 Number 1 Bowel Movements Number Voids 2 Output, Urine 425 Patient Weight Weight (lb): 190Weight (oz): 0.62Weight (kg): 86.200 Medications:Active Meds + DC'd Last 24 HrsLinezolid 300 ML Q12HR IV Metoprolol Succinate 50 MG BID PO Cefepime HCl 1 GM Q8H IV Sodium Chloride 100 MLAlbuterol/Ipratropium 3 ML RTQ6H INH Albuterol/Ipratropium 3 ML RTQ2H PRN PRN INH Bisacodyl 10 MG DAILY PRN PRN PO Heparin Sodium 5,000 UNIT Q12HR SUBQ Amlodipine Besylate 5 MG DAILY PO Hydralazine HCl 10 MG Q6H PRN PRN IV Metoclopramide HCl 10 MG Q8H IV Sodium Chloride 10 ML ASDIR PRN IV Pantoprazole Sodium 40 MG DAILY IV Promethazine HCl 25 MG Q8H PRN PRN IM Diphenhydramine HCl 25 MG Q6H PRN PRN PO Azithromycin 500 MG Q24H IV (DC) Sodium Chloride 250 MLBenzonatate 100 MG Q6H PRN PRN PO Aspirin 81 MG DAILY PO Dextrose/Water 125 ML ASDIR PRN IV Dextrose/Water 250 ML ASDIR PRN IV Glucagon 1 MG ASDIR PRN IM Insulin Glargine 10 UNIT Q12HR SUBQ Al Hydrox/Mg Hydrox/Simethicone 30 ML Q4H PRN PRN PO Docusate Sodium 100 MG BID PRN PRN PO Ergocalciferol 50,000 INTL.UNITS Q7D PO (CKD) Hydrocodone Bitart/Acetaminophen 1 TAB Q6H PRN PRN PO Insulin Human Lispro 0 AC HS SUBQ Lactulose 20 GM Q6H PRN PRN PO Ondansetron HCl 4 MG Q4H PRN PRN IV Potassium Chloride 40 MEQ DAILY PRN PRN PO Ticagrelor 90 MG BID PO Zolpidem Tartrate 5 MG BEDTIME PRN PRN PO Acetaminophen 650 MG Q6H PRN PRN PO Atropine Sulfate 0.5 MG ASDIR PRN IV Atorvastatin Calcium 80 MG DAILY 1700 PO Morphine Sulfate 2 MG Q3H PRN PRN IV General appearance: awake, oriented, no respiratory distressHead/eyes: PERRLACardiovascular: normal heart sounds, normal S1/X9Todziyhwjzm/chest: on oxygen, symmetric expansion, no distressAbdomen: soft, non-tenderGenitourinary: no wallace, no bladder distentionMusculoskeletal: no muscle spasmNeuro/VACUUM FILTER OPERATOR: alert, oriented X 3, CNII-XII intactSkin: warm, dry, intact ResultsFindings/Data:24 hours ending at 0700 06/11 0700 06/10 2300 06/10 1500 Intake Total 740.00 1000.00 Output Total 425 Balance 740.00 575.00 Intake, IV 500.00 400.00 Intake, Oral 240 600 Number 1 Bowel Movements Number Voids 2 Output, Urine 425 24 Hour I O Total 06/11 0700 Intake Total 1740.00 Output Total 425 Balance 1315.00 Laboratory Tests 06/11/19 0450:[Embedded Image Not Available] 06/10/19 0445:[Embedded Image Not Available]Laboratory Tests 06/11 06/11 06/11 06/10 06/10 1121 0735 0450 1929 1613 Chemistry Sodium (134 - 147 mEq/L) 142 Potassium (3.4 - 5.0 mEq/L) 3.8 Chloride (100 - 108 mEq/L) 106 Carbon Dioxide (21 - 33 mEq/L) 33 Anion Gap (0 - 20) 7 BUN (7 - 18 mg/dL) 22 H Creatinine (0.6 - 1.3 mg/dL) 1.7 H Glomerular Filtr Rate (90 - 95) 50.7 L Glucose (70 - 110 mg/dL) 116 H POC Glucose (70 - 110 MG/DL) 188 H 125 H 158 H 53 L Calcium (8.0 - 10.5 mg/dL) 8.4 Phosphorus (2.5 - 4.9 mg/dL) 3.4 Magnesium (1.8 - 2.4 mg/dL) 2.40 Laboratory Tests 06/11 450 Hematology WBC (4.5 - 11.0 x10 3/uL) 9.32 RBC (4.00 - 5.60 x10 6/uL) 3.28 L Hgb (12.5 - 16.9 g/dL) 8.8 L Hct (37.5 - 50.7 %) 27.7 L MCV (81.0 - 99.0 fL) 84.5 MCH (27.0 - 33.0 pg) 26.8 L MCHC (33.0 - 37.0 g/dL) 31.8 L RDW (11.5 - 14.5 %) 13.3 Plt Count (150 - 400 x10 3/uL) 432 H MPV (7.0 - 9.0 fL) 9.7 H Neut % (Auto) (56.0 - 77.0 %) 65.0 Lymph % (Auto) (14.0 - 32.0 %) 17.9 Highland % (Auto) (4.8 - 9.0 %) 10.9 H Eos % (Auto) (0.3 - 3.7 %) 5.3 H Baso % (Auto) (0.0 - 2.0 %) 0.1 Neut # (Auto) (2.0 - 7.6 x10 3/uL) 6.06 Lymph # (Auto) (1.0 - 3.8 x10 3/uL) 1.67 Highland # (Auto) (0.1 - 0.8 x10 3/uL) 1.02 H Eos # (Auto) (0.0 - 0.2 x10 3/uL) 0.49 H Baso # (Auto) (0.0 - 0.2 x10 3/uL) 0.01 Abs Immat Gran (auto) (0.00 - 0.03 x10 3/uL) 0.07 H Add Manual Diff NO Immature Gran % (0.0 - 2.0 %) 0.8 Nucleated RBC % (0 - 0 %) 0.0 Nucleated RBCs # (Man) (0.0 - 0.1 x10 3/uL) 0.00 Results: labs reviewed, vital signs stable, current med profile rev'd Treatment Prophylaxis Treatment ProphylaxisOxygen: nasal cannula Diagnosis, Assessment PlanHospital course to date:Assessment and Plan: - Acute hypoxic respiratory failure secondary to pneumonia.- Multifocal PNA, right and Left lobe.- Hypoxia , rule out PE.- Shortness of breath and hypoxia secondary to pneumonia and fluid overload.- Fluid overload.- Fecal Material on Right Colon.- Acute kidney injury secondary to meds.- Hyperkalemia.- Subacute infarction/cerebrovascular accident.- History of hypertension.- History of diabetes type 2.- History of hyperlipidemia.- Metabolic acidosis. - Venous doppler study negative. PLAN: CCU.Continue Laxatives for Constipation.Continue IV ABX for PNA.Aggressive pulmonary toilet including incentive spirometry, nebulizer treatment,and O2 support.Cough medication.Need of sleep study to rule out sleep apnea.Monitor the kidney function.Statin and aspirin per neurologist for the cerebrovascular accident.Follow labs and replace as needed.SCD for DVT prophylaxis.Glycemic control, Accu-Chek a.c. and at bedtime, sliding scale, diabetic diet.Monitor. Code status: full codePlan discussed with: patient, family, consultants, Antoine Raymundo 06/13/19 0116:Attestations Midlevel/Physician AttestationPhysician attestation:Agree with the findings and plan as documented by MEDICATION ADMINISTRATION PROFESSIONAL: as abovereviewedpt seen and examineddw RN at 1306 at 0121 RPT #:[id number] OF REPORTPRProgress [id number]:05:00G.[id number] le for patient ddhhHLHBMYXYCLURNW3304-49-08Y84:21:25 [facility] 2019-06-11 12:10:00 [id number]:10:00 [facility] Prog. NoteREPORT#:[id number] REPORT STATUS: SignedDATE:06/11/19 TIME: 1210 PATIENT: DUSTY FRANCOIS UNIT #: [id number]#: [id number] [address] [birth year] AGE: 58 SEX: M ATTEND: Kyung Bedoya [facility] AUTHOR: Darci Roldan MD * ALL edits or amendments must be made on the electronic/computer document * Subjective Free Text Subj NotesFree Text Subj Notes:doing okno chest painremains on NC Objective Physical ExamHead/Eyes: atraumatic, EOMINeck: non-tender, supple/no meningismusCardiovascular: normal heart sounds, regular rate rhythmRespiratory: crackles, decreased breath sounds, shortness of breathAbdomen: soft, no distentionExtremities: Extremities: no edemaNeuro/VACUUM FILTER OPERATOR: alert, oriented x 3 Diagnosis, Assessment PlanProblem List/A P: 1. Right parietal lobe lesion 2. CVA (cerebrovascular accident) 3. Cellulitis of right knee 4. Syncope 5. PAD (peripheral artery disease) 6. Acute on chronic renal failure 7. Diabetic nephropathy 8. Diabetic neuropathy Free Text DxA P NotesFree Text DxA P Notes:wean o2 as toleratesPT and OTcontinue antibiotics per IDfollow labs, diuresis PRNtransfer to tele at 1210 RPT #:[id number] OF REPORTPRProgress [id number]:10:00G.[id number] le for patient wbbjTKAYOJYSKJLUCP4466-64-70I81:11:12 [facility] 2019-06-11 08:38:00 [id number]:38:00 H [place] [facility] ([facility])Nephrology Progress NoteREPORT#:[id number] REPORT STATUS: SignedDATE:06/11/19 TIME: 0838 PATIENT: DUSTY FRANCOIS UNIT #: [id number]#: [id number] [address] [birth year] AGE: 58 SEX: M ATTEND: Kyung Bedoya [facility] AUTHOR: Gideon Teran MD * ALL edits or amendments must be made on the electronic/computer document * SubjectiveChief Complaint:Syncope/NSTEMI/AKIPatient reports:No: complaints. Comments:Patient seen and evaluated, discussed with care team, HPI no change from initial, feels better Review of SystemsConstitutional:Yes fatigue, No chills, No feverSkin:No abrasion, No bruisingAllergy/Immun:No hives, No itchingEyes:No redness, No dischargeENT:No ear drainage, No ear ringingRespiratory:Yes non productive cough, Yes SOBCardiovascular:No palpitationsGI:Yes nausea, Yes vomiting, No abdominal pain Objective GeneralVS/I O:Vital Signs: Date Time Temp Pulse Resp B/P B/P Pulse O2 O2 Flow FiO2 Mean Ox Delivery Rate 06/11 0802 Nasal 3.705818 cannula 06/11 0711 90 22 138/82 105 96 06/11 0700 36.9 06/11 0618 94 06/11 0600 91 18 156/83 113 90 06/11 0500 87 17 148/82 109 98 06/11 0400 36.9 82 18 125/68 92 94 06/11 0300 84 20 151/88 114 91 06/11 0200 82 26 130/80 100 95 06/11 0100 82 20 127/77 97 95 06/11 0000 37.0 84 19 120/70 89 94 06/10 2300 90 16 135/83 104 93 06/10 2200 91 14 123/74 93 91 06/10 2100 93 14 144/83 108 91 06/10 2012 97 Nasal 3.629602 cannula 06/10 2000 Nasal 4.334732 cannula 06/10 2000 36.9 91 22 132/81 101 94 06/10 1900 88 21 135/76 100 96 06/10 1800 91 19 127/71 94 94 06/10 1700 91 7 146/87 111 93 06/10 1600 37.2 06/10 1600 88 15 129/79 99 91 06/10 1500 90 17 119/69 87 96 06/10 1400 91 26 133/76 99 91 06/10 1300 90 06/10 1200 37.5 06/10 1200 87 14 129/76 98 98 06/10 1100 93 12 145/88 111 95 06/10 1000 92 20 135/78 98 97 06/10 0900 97 19 153/77 108 95 06/10 0846 96 Nasal 3.484420 cannula 24 hour I O ending at 0700: 06/11 0700 06/10 1900 Intake Total 740.00 1000.00 Output Total 425 Balance 740.00 575.00 Intake, IV 500.00 400.00 Intake, Oral 240 600 Number 1 Bowel Movements Number Voids 2 Output, Urine 425 MedicationsActive Meds + DC'd Last 24 HrsLinezolid 300 ML Q12HR IV Metoprolol Succinate 50 MG BID PO Cefepime HCl 1 GM Q8H IV Sodium Chloride 100 MLAlbuterol/Ipratropium 3 ML RTQ6H INH Albuterol/Ipratropium 3 ML RTQ2H PRN PRN INH Bisacodyl 10 MG DAILY PRN PRN PO Heparin Sodium 5,000 UNIT Q12HR SUBQ Amlodipine Besylate 5 MG DAILY PO Hydralazine HCl 10 MG Q6H PRN PRN IV Sodium Bicarbonate 75 ML .[id number] IV (DC) Sodium Chloride 1,000 MLMetoclopramide HCl 10 MG Q8H IV Sodium Chloride 10 ML ASDIR PRN IV Pantoprazole Sodium 40 MG DAILY IV Promethazine HCl 25 MG Q8H PRN PRN IM Diphenhydramine HCl 25 MG Q6H PRN PRN PO Azithromycin 500 MG Q24H IV (DC) Sodium Chloride 250 MLBenzonatate 100 MG Q6H PRN PRN PO Aspirin 81 MG DAILY PO Dextrose/Water 125 ML ASDIR PRN IV Dextrose/Water 250 ML ASDIR PRN IV Glucagon 1 MG ASDIR PRN IM Insulin Glargine 10 UNIT Q12HR SUBQ Al Hydrox/Mg Hydrox/Simethicone 30 ML Q4H PRN PRN PO Docusate Sodium 100 MG BID PRN PRN PO Ergocalciferol 50,000 INTL.UNITS Q7D PO (CKD) Hydrocodone Bitart/Acetaminophen 1 TAB Q6H PRN PRN PO Insulin Human Lispro 0 AC HS SUBQ Lactulose 20 GM Q6H PRN PRN PO Ondansetron HCl 4 MG Q4H PRN PRN IV Potassium Chloride 40 MEQ DAILY PRN PRN PO Ticagrelor 90 MG BID PO Zolpidem Tartrate 5 MG BEDTIME PRN PRN PO Acetaminophen 650 MG Q6H PRN PRN PO Atropine Sulfate 0.5 MG ASDIR PRN IV Atorvastatin Calcium 80 MG DAILY 1700 PO Morphine Sulfate 2 MG Q3H PRN PRN IV Physical ExamGeneral appearance: alert, no acute distressHead/eyes: atraumatic, normocephalicENT: moist mucous membranes, normal noseNeck: supple/no meningismusCardiovascular: normal heart sounds, no rubRespiratory: aerating well, no distressAbdomen: non-tender, softGenitourinary: no flank pain, no foleyExtremities: non-tender, no edemaMusculoskeletal: no tenderenessNeuro/VACUUM FILTER OPERATOR: alert, normal speechSkin: dry, intact ResultsFindings/Data:Laboratory Tests 06/11 06/10 06/10 06/10 0450 1929 1613 1142 Chemistry Sodium (134 - 147 mEq/L) 142 Potassium (3.4 - 5.0 mEq/L) 3.8 Chloride (100 - 108 mEq/L) 106 Carbon Dioxide (21 - 33 mEq/L) 33 Anion Gap (0 - 20) 7 BUN (7 - 18 mg/dL) 22 H Creatinine (0.6 - 1.3 mg/dL) 1.7 H Glomerular Filtr Rate (90 - 95) 50.7 L Glucose (70 - 110 mg/dL) 116 H POC Glucose (70 - 110 MG/DL) 158 H 53 L 152 H Calcium (8.0 - 10.5 mg/dL) 8.4 Phosphorus (2.5 - 4.9 mg/dL) 3.4 Magnesium (1.8 - 2.4 mg/dL) 2.40 Laboratory Tests 06/11 0450 Hematology WBC (4.5 - 11.0 x10 3/uL) 9.32 RBC (4.00 - 5.60 x10 6/uL) 3.28 L Hgb (12.5 - 16.9 g/dL) 8.8 L Hct (37.5 - 50.7 %) 27.7 L MCV (81.0 - 99.0 fL) 84.5 MCH (27.0 - 33.0 pg) 26.8 L MCHC (33.0 - 37.0 g/dL) 31.8 L RDW (11.5 - 14.5 %) 13.3 Plt Count (150 - 400 x10 3/uL) 432 H MPV (7.0 - 9.0 fL) 9.7 H Neut % (Auto) (56.0 - 77.0 %) 65.0 Lymph % (Auto) (14.0 - 32.0 %) 17.9 Highland % (Auto) (4.8 - 9.0 %) 10.9 H Eos % (Auto) (0.3 - 3.7 %) 5.3 H Baso % (Auto) (0.0 - 2.0 %) 0.1 Neut # (Auto) (2.0 - 7.6 x10 3/uL) 6.06 Lymph # (Auto) (1.0 - 3.8 x10 3/uL) 1.67 Highland # (Auto) (0.1 - 0.8 x10 3/uL) 1.02 H Eos # (Auto) (0.0 - 0.2 x10 3/uL) 0.49 H Baso # (Auto) (0.0 - 0.2 x10 3/uL) 0.01 Abs Immat Gran (auto) (0.00 - 0.03 x10 3/uL) 0.07 H Add Manual Diff NO Immature Gran % (0.0 - 2.0 %) 0.8 Nucleated RBC % (0 - 0 %) 0.0 Nucleated RBCs # (Man) (0.0 - 0.1 x10 3/uL) 0.00 Diagnosis, Assessment PlanFree Text A P:Patient seen and evaluated, discussed with care team, Images and laboratory reviewedHistory of HTN: metoprolol: Monitor BP closely and adjust medications as neededDM: insulin: Monitor BS closely and adjust medications as neededHLD: LipitorCAD s/p NSTEMI , s/p LHC and LAD/LCX PCI: ASA/TicagrelorPNA: Rocephin/AzithromaxSOB with elevated BNP, he has no LE edema, his SOB could be mainly related to his PNA, he is nauseated and eating, would hold off diuretcis if possibleAKI felisha related to CINHis baseline creat 1.2 in Sep 2018, eGFR 80 , felisha had some progression since then, check UA, urine P/creat ratio and renal USAcidosis: pH this AM 7.287/ Creat 3.6 stable, K WNL4.3, HCO3 22 better, renal US WNL7 Creat better 2.6, electrolytes acceptable, HCO3 23, continue IVF06/09/19 Creat 2.1 better, HCO3 27, Hgb 9, WBC 8.397/ Creat 1.7 better, HCO3 29 will d/c IVF , other electrolyts acceptable, Hgb 7.97/ Creat 1.7 stable since yesterday, electrolytes acceptable at 1059 RPT #:[id number] OF REPORTPRProgress [id number]:38:00G.[id number] le for patient addkLGCAOEYYSYWNQJ6523-60-10R14:59:40 [facility] 2019-06-10 13:24:00 [id number]:24:00 [facility] [place] [facility] ([facility])Cardiology Progress NoteREPORT#:[id number] REPORT STATUS: SignedDATE:06/10/19 TIME: 1324 PATIENT: DUSTY FRANCOIS UNIT #: [id number]#: [id number] [address] [birth year] AGE: 58 SEX: M ATTEND: Kyung Bedoya [facility] AUTHOR: Jennifer Gonzalez MD * ALL edits or amendments must be made on the electronic/computer document * SubjectiveChief Complaint:event noted Objective GeneralVS/I O:Laboratory Tests: 06/09 06/09 06/10 06/10 06/10 1701 2020 0445 0445 0723Chemistry Sodium (134 - 147 mEq/L) 142 Potassium (3.4 - 5.0 mEq/L) 4.0 Chloride (100 - 108 mEq/L) 108 Carbon Dioxide (21 - 33 mEq/L) 29 Anion Gap (0 - 20) 9 BUN (7 - 18 mg/dL) 28 H Creatinine (0.6 - 1.3 mg/dL) 1.7 H Glomerular Filtr Rate (90 - 95) 50.7 L Glucose (70 - 110 mg/dL) 96 POC Glucose (70 - 110 MG/DL) 97 116 H 90 Calcium (8.0 - 10.5 mg/dL) 7.8 L Magnesium (1.8 - 2.4 mg/dL) 2.50 HHematology WBC (4.5 - 11.0 x10 3/uL) 8.44 RBC (4.00 - 5.60 x10 6/uL) 2.96 L Hgb (12.5 - 16.9 g/dL) 7.9 L Hct (37.5 - 50.7 %) 24.9 L MCV (81.0 - 99.0 fL) 84.1 MCH (27.0 - 33.0 pg) 26.7 L MCHC (33.0 - 37.0 g/dL) 31.7 L RDW (11.5 - 14.5 %) 13.6 Plt Count (150 - 400 x10 3/uL) 356 MPV (7.0 - 9.0 fL) 10.0 H Neut % (Auto) (56.0 - 77.0 %) 67.5 Lymph % (Auto) (14.0 - 32.0 %) 18.2 Highland % (Auto) (4.8 - 9.0 %) 10.4 H Eos % (Auto) (0.3 - 3.7 %) 3.1 Baso % (Auto) (0.0 - 2.0 %) 0.1 Neut # (Auto) (2.0 - 7.6 x10 3/uL) 5.69 Lymph # (Auto) (1.0 - 3.8 x10 3/uL) 1.54 Highland # (Auto) (0.1 - 0.8 x10 3/uL) 0.88 H Eos # (Auto) (0.0 - 0.2 x10 3/uL) 0.26 H Baso # (Auto) (0.0 - 0.2 x10 3/uL) 0.01 Abs Immat Gran (auto) (0.00 - 0.03 0.06 Hx10 3/uL) Add Manual Diff NO Immature Gran % (0.0 - 2.0 %) 0.7 Nucleated RBC % (0 - 0 %) 0.0 Nucleated RBCs # (Man) (0.0 - 0.1 0.00x10 3/uL) Microbiology: Date/Time Procedure - Status Source Growth 06/10 0050 Streptococcus pneumoniae Ag Screen - COMP URINE Recent Impressions:NUCLEAR MEDICINE - PULM VENT PERF IMAG 06/09 1400 Report Impression - Status: SIGNED Entered: 06/09/2019 1529 IMPRESSION:1. Low likelihood ratio for pulmonary embolism. Normal: < 5% probability of pulmonary embolism.Low likelihood ratio: < 20 % probability of pulmonary embolism.Intermediate likelihood ratio: 20-80% probability of pulmonaryembolism.High likelihood ratio: > 80% probability of pulmonary embolism. SL: [id number] By: [email or web address] - Amadou Vizcaino M.D. Current Medications Sig/Jean Carlos Start time LastMedication Dose Route Stop Time Status AdminLinezolid 300 ML Q12HR 06/09 2100 AC 06/10 IV 06/16 2059 1032Metoprolol 50 MG BID 06/09 2100 06/10Succinate PO 07/09 2059 0830Cefepime HCl 1 GM Q8H 06/09 1115 AC 06/10Sodium Chloride 100 ML IV 06/16 1200 0305Albuterol/Ipratro 3 ML RTQ6H 06/08 2100 AC 06/10pium INH 07/08 2059 0847Albuterol/Ipratro 3 ML RTQ2H PRN PRN 06/08 1845 AC 06/08pium INH 07/08 1844 1843Bisacodyl 10 MG DAILY PRN PRN 06/08 1015 AC PO 07/08 1014Heparin Sodium 5,000 UNIT Q12HR 06/07 1300 AC 06/10 SUBQ 07/07 2059 0829Carvedilol 12.5 MG BID@0900,2100 06/06 2100 DC 06/09 PO 07/06 2059 0843Amlodipine 5 MG DAILY 06/06 2000 AC 06/10Besylate PO 07/06 1959 0829Hydralazine HCl 10 MG Q6H PRN PRN 06/06 2000 AC 06/09 IV 07/06 1959 0841Sodium 75 ML .[id number] 06/06 171 DC 06/09BicarbonateSodium Chloride 1,000 ML IV 07/06 171 1833Metoclopramide 10 MG Q8H 06/06 1230 AC 06/10HCl IV 07/06 1229 0427Sodium Chloride 10 ML ASDIR PRN 06/06 0430 AC IV 07/06 0429Pantoprazole 40 MG DAILY 06/06 0429 AC 06/10Sodium IV 07/06 0428 0830Promethazine HCl 25 MG Q8H PRN PRN 06/06 0030 AC 06/08 IM 07/06 0029 0748Diphenhydramine 25 MG Q6H PRN PRN 06/05 1945 AC 06/05HCl PO 07/05 1944 1956Azithromycin 500 MG Q24H 06/05 1630 AC 07odium Chloride 250 ML IV 06/10 1629 1729Benzonatate 100 MG Q6H PRN PRN 06/05 1630 AC 06/05 PO 07/05 1629 2159Aspirin 81 MG DAILY 06/05 0900 AC 06/10 PO 07/05 0859 0828Dextrose/Water 125 ML ASDIR PRN 06/05 0815 AC IV 07/05 0814Dextrose/Water 250 ML ASDIR PRN 06/05 0815 AC IV 07/05 0814Glucagon 1 MG ASDIR PRN 06/05 0815 AC IM 07/05 0814Insulin Glargine 10 UNIT Q12HR 06/04 2103 AC 06/10 SUBQ 07/04 2102 1000Al Hydrox/Mg 30 ML Q4H PRN PRN 06/04 2100 ACHydrox/Simethicone PO 07/04 2059Docusate Sodium 100 MG BID PRN PRN 06/04 2100 AC 06/08 PO 07/04 2059 0848Ergocalciferol 50,000 INTL.UNITS Q7D 06/04 2100 CKD 06/04 PO 07/04 2059 221Hydrocodone 1 TAB Q6H PRN PRN 06/04 2100 ACBitart/Acetaminophen PO 07/04 2059Insulin Human 0 AC HS 06/04 2100 AC 06/07Lispro SUBQ 07/04 2059 1910Lactulose 20 GM Q6H PRN PRN 06/04 2100 AC 06/08 PO 07/04 2059 0847Mupirocin 1 APPLIC BID 06/04 2100 DC 06/09 NASAL 06/09 2059 1011Ondansetron HCl 4 MG Q4H PRN PRN 06/04 2100 AC 06/07 IV 07/04 2059 0635Potassium 40 MEQ DAILY PRN PRN 06/04 2100 ACChloride PO 07/04 2059Ticagrelor 90 MG BID 06/04 2100 AC 06/10 PO 07/04 2059 0829Zolpidem Tartrate 5 MG BEDTIME PRN PRN 06/04 2100 AC 06/08 PO 07/04Acetaminophen 650 MG Q6H PRN PRN 06/04 1415 AC 06/10 PO 07/04 1414 0834Atropine Sulfate 0.5 MG ASDIR PRN 06/04 1415 AC IV 07/04 1414Atorvastatin 80 MG DAILY 1700 06/04 0415 AC 06/05Calcium PO 07/04 414 1806Morphine Sulfate 2 MG Q3H PRN PRN 06/045 AC IV 06/18 0414 24 hour I O ending at 0700: 06/09 1900 06/10 0700 Intake Total 1324.10 1542.35 Output Total Balance 1324.10 1542.35 Intake, IV 844.10 1542.35 Intake, Oral 480 Number 1 1 Bowel Movements Number Voids 3 1 Vital Signs: Date Time Temp Pulse Resp B/P B/P Pulse O2 O2 Flow FiO2 Mean Ox Delivery Rate 06/10 1100 93 12 145/88 111 95 06/10 1000 92 20 135/78 98 97 06/10 0900 97 19 153/77 108 95 06/10 0846 96 Nasal 3.668784 cannula 06/10 0800 94 06/10 0800 99.5 06/10 0800 21 140/81 105 95 06/10 0715 Nasal 4.721914 cannula 06/10 0700 89 12 134/79 99 97 06/10 0600 94 20 142/80 105 97 06/10 0500 93 17 161/91 119 93 06/10 0400 98.9 88 19 143/83 109 100 8 06/10 0354 99 Nasal 3.847653 cannula 06/10 0300 92 14 152/77 105 95 06/10 0200 85 13 106/62 79 95 06/10 0100 95 17 151/75 107 95 06/10 0000 98.4 92 15 146/83 109 97 8 06/09 2300 93 14 126/76 94 99 06/09 2200 94 33 132/81 102 96 06/09 2100 98 13 131/75 97 100 06/09 2045 98 Nasal 3.829296 cannula 06/09 2000 98.1 96 17 128/73 95 95 2 06/09 1930 Nasal 5.846515 cannula 06/09 1900 104 18 124/77 93 97 06/09 1800 106 20 155/79 111 97 06/09 1700 98 19 137/77 101 96 06/09 1600 98.4 100 14 133/70 91 95 High flow 5.864645 nasal cannula 06/09 1600 100 14 133/70 95 95 06/09 1400 100 18 96 Patient Weight Weight (lb): 190Weight (oz): 0.62Weight (kg): 86.200 Physical ExamGeneral appearance: alertHead/Eyes: atraumatic, normocephalicENT: moist mucosal membranesNeck: non-tender, supple/no meningismus, no JVD, no lymphadenopathy, no masses or swellingCardiovascular: CV assessment: regular rate and rhythm, normal heart soundsRespiratory: clear to auscultation, no distressAbdomen: soft, non-tender, normal bowel soundsGenitourinary: no bladder distentionUpper extremity: UE assessment: no clubbing, no cyanosisLower extremity: LE assessment: no clubbing, no cyanosis, no edemaMusculoskeletal: full range of motionNeuro/VACUUM FILTER OPERATOR: alert, oriented X 3Skin: dry, intactPsychiatry: normal affect Diagnosis, Assessment Plan Free Text DxA P NotesFree Text DxA P Notes:1. Non-ST elevation myocardial infarction. s/p PCI of thrombotic occlusion of the mid RCA, and mid LADcontinue optimal medical therapy- brilinta, asa, statin, bbEcho: EF 45-50% 3. Hypertensionoptimize meds to control bpprn medications available 4. Subacute CVAper Neurologycarotid dopplers negativemonitor for arrhythmiavenous dopplers negative 5. BRENDA/CKDper Nephrologydiuresis as needed for Nephrology 6. PNAID consulted 7. DM at 1326 RPT #:[id number] OF REPORTPRProgress [id number]:24:00G.[id number] le for patient iaqcXPKLGEHRLJSTNU4354-37-59O53:26:24 [facility] 2019-06-10 13:23:00 [id number]:23:00 [facility] Prog. NoteREPORT#:[id number] REPORT STATUS: SignedDATE:06/10/19 TIME: 1323 PATIENT: DUSTY FRANCOIS UNIT #: [id number]#: [id number] [address]DOB: [birth year] AGE: 58 SEX: M ATTEND: Kyung Bedoya AUTHOR: Darci Roldan MD * ALL edits or amendments must be made on the electronic/computer document * Subjective Free Text Subj NotesFree Text Subj Notes:doing okminimal dyspnea on exertionno chest pain Objective GeneralVS/I O:Vital Signs Date Temp Pulse Resp B/P B/P Mean Pulse Ox FiO2 06/09-06/10 36.7-37.5 85-106 12-33 106-161/62-91 79-119 93-100 Last Documented: Result Date Time Pulse Ox 95 06/10 1100 B/P 145/88 06/10 1100 B/P Mean 111 06/10 1100 Pulse 93 06/10 1100 Resp 12 06/10 1100 O2 Delivery Nasal cannula 06/10 0846 O2 Flow Rate 3.823687 06/10 0846 Temp 37.5 06/10 0800 FiO2 70 06/06 0215 24 hour I O ending at 0700: 06/10 0700 06/09 1900 Intake Total 1542.35 1324.10 Output Total Balance 1542.35 1324.10 Intake, IV 1542.35 844.10 Intake, Oral 480 Number 1 1 Bowel Movements Number Voids 1 3 Patient Weight Weight (lb): 190Weight (oz): 0.62Weight (kg): 86.200 Physical ExamGeneral appearance: alert, awake, orientedHead/Eyes: atraumatic, EOMINeck: non-tender, supple/no meningismusCardiovascular: normal heart sounds, regular rate rhythmRespiratory: crackles, decreased breath sounds, shortness of breathAbdomen: soft, no distentionExtremities: Extremities: no edemaNeuro/VACUUM FILTER OPERATOR: alert, oriented x 3 Diagnosis, Assessment PlanProblem List/A P: 1. Right parietal lobe lesion 2. CVA (cerebrovascular accident) 3. Cellulitis of right knee 4. Syncope 5. PAD (peripheral artery disease) 6. Acute on chronic renal failure 7. Diabetic nephropathy 8. Diabetic neuropathy Free Text DxA P NotesFree Text DxA P Notes:wean o2 as toleratesPT and OTcontinue antibiotics per IDfollow labs, diuresis PRNtransfer to floor soon at 1326 RPT #:[id number] OF REPORTPRProgress [id number]:23:00G.[id number] le for patient [id number]:26:24 [facility] 2019-06-10 13:10:00 [id number]:10:00 [facility] ([facility])Pulmonology Progress NoteREPORT#:[id number] REPORT STATUS: SignedDATE:06/10/19 TIME: 1310 PATIENT: DUSTY FRANCOIS UNIT #: [id number]#: [id number] ROOM/BED: 3309-1DOB: [birth year] AGE: 58 SEX: M ATTEND: Kyung Bedoya [facility] AUTHOR: Koko Chung MEDICATION ADMINISTRATION PROFESSIONAL * ALL edits or amendments must be made on the electronic/computer document * SubjectiveChief Complaint:He is on 5 liter NC.He says that his feeling better today.Breathing is stable.Less SOB with exertion.Denies any N/V/D.Denies any Cp, chills, SOBBP and HR stable. Review of Systems ROSConstitutional:fatigue, generalized weakness. Respiratory:Reports: pneumonia. Denies: SORIANO (dyspnea on exertion), pleuritic pain, SOB, wheezing. Cardiovascular:Denies: edema, orthopnea. GI:Reports: abdominal pain, constipation, nausea. Denies: GERD, hiatal hernia. :Denies: flank pain, frequency, hematuria. Musculoskeletal:Denies: extremity swelling, joint pain. Endocrine:Denies: polydipsia, polyphagia. Neuro:Denies: dizziness, focal weakness, lightheaded. Objective Physical ExamVS/I O:Last Documented: Result Date Time Pulse Ox 95 06/10 1100 B/P 145/88 06/10 1100 B/P Mean 111 06/10 1100 Pulse 93 06/10 1100 Resp 12 06/10 1100 O2 Delivery Nasal cannula 06/10 0846 O2 Flow Rate 3.625897 06/10 0846 Temp 37.5 06/10 0800 FiO2 70 06/06 0215 24 hour I O ending at 0700: 06/10 0700 06/09 1900 Intake Total 1542.35 1324.10 Output Total Balance 1542.35 1324.10 Intake, IV 1542.35 844.10 Intake, Oral 480 Number 1 1 Bowel Movements Number Voids 1 3 Patient Weight Weight (lb): 190Weight (oz): 0.62Weight (kg): 86.200 Medications:Active Meds + DC'd Last 24 HrsLinezolid 300 ML Q12HR IV Metoprolol Succinate 50 MG BID PO Cefepime HCl 1 GM Q8H IV Sodium Chloride 100 MLAlbuterol/Ipratropium 3 ML RTQ6H INH Albuterol/Ipratropium 3 ML RTQ2H PRN PRN INH Bisacodyl 10 MG DAILY PRN PRN PO Heparin Sodium 5,000 UNIT Q12HR SUBQ Carvedilol 12.5 MG BID@0900,2100 PO (DC) Amlodipine Besylate 5 MG DAILY PO Hydralazine HCl 10 MG Q6H PRN PRN IV Sodium Bicarbonate 75 ML .[id number] IV (DC) Sodium Chloride 1,000 MLMetoclopramide HCl 10 MG Q8H IV Sodium Chloride 10 ML ASDIR PRN IV Pantoprazole Sodium 40 MG DAILY IV Promethazine HCl 25 MG Q8H PRN PRN IM Diphenhydramine HCl 25 MG Q6H PRN PRN PO Azithromycin 500 MG Q24H IV Sodium Chloride 250 MLBenzonatate 100 MG Q6H PRN PRN PO Aspirin 81 MG DAILY PO Dextrose/Water 125 ML ASDIR PRN IV Dextrose/Water 250 ML ASDIR PRN IV Glucagon 1 MG ASDIR PRN IM Insulin Glargine 10 UNIT Q12HR SUBQ Al Hydrox/Mg Hydrox/Simethicone 30 ML Q4H PRN PRN PO Docusate Sodium 100 MG BID PRN PRN PO Ergocalciferol 50,000 INTL.UNITS Q7D PO (CKD) Hydrocodone Bitart/Acetaminophen 1 TAB Q6H PRN PRN PO Insulin Human Lispro 0 AC HS SUBQ Lactulose 20 GM Q6H PRN PRN PO Mupirocin 1 APPLIC BID NASAL (DC) Ondansetron HCl 4 MG Q4H PRN PRN IV Potassium Chloride 40 MEQ DAILY PRN PRN PO Ticagrelor 90 MG BID PO Zolpidem Tartrate 5 MG BEDTIME PRN PRN PO Acetaminophen 650 MG Q6H PRN PRN PO Atropine Sulfate 0.5 MG ASDIR PRN IV Atorvastatin Calcium 80 MG DAILY 1700 PO Morphine Sulfate 2 MG Q3H PRN PRN IV General appearance: awake, orientedHead/eyes: PERRLACardiovascular: normal heart sounds, normal S1/N4Hgcmympjcdf/chest: on oxygen, symmetric expansion, no distressAbdomen: soft, non-tenderGenitourinary: no wallace, no bladder distentionMusculoskeletal: no muscle spasmNeuro/VACUUM FILTER OPERATOR: alert, oriented X 3, CNII-XII intactSkin: warm, dry, intact ResultsFindings/Data:Laboratory Tests 06/10/19444:[Embedded Image Not Available] 06/09/19 044:[Embedded Image Not Available]Laboratory Tests 06/10 170 Chemistry Sodium (134 - 147 mEq/L) 142 Potassium (3.4 - 5.0 mEq/L) 4.0 Chloride (100 - 108 mEq/L) 108 Carbon Dioxide (21 - 33 mEq/L) 29 Anion Gap (0 - 20) 9 BUN (7 - 18 mg/dL) 28 H Creatinine (0.6 - 1.3 mg/dL) 1.7 H Glomerular Filtr Rate (90 - 95) 50.7 L Glucose (70 - 110 mg/dL) 96 POC Glucose (70 - 110 MG/DL) 90 116 H 97 Calcium (8.0 - 10.5 mg/dL) 7.8 L Magnesium (1.8 - 2.4 mg/dL) 2.50 H Laboratory Tests 06/10 445 Hematology WBC (4.5 - 11.0 x10 3/uL) 8.44 RBC (4.00 - 5.60 x10 6/uL) 2.96 L Hgb (12.5 - 16.9 g/dL) 7.9 L Hct (37.5 - 50.7 %) 24.9 L MCV (81.0 - 99.0 fL) 84.1 MCH (27.0 - 33.0 pg) 26.7 L MCHC (33.0 - 37.0 g/dL) 31.7 L RDW (11.5 - 14.5 %) 13.6 Plt Count (150 - 400 x10 3/uL) 356 MPV (7.0 - 9.0 fL) 10.0 H Neut % (Auto) (56.0 - 77.0 %) 67.5 Lymph % (Auto) (14.0 - 32.0 %) 18.2 [place]land % (Auto) (4.8 - 9.0 %) 10.4 H Eos % (Auto) (0.3 - 3.7 %) 3.1 Baso % (Auto) (0.0 - 2.0 %) 0.1 Neut # (Auto) (2.0 - 7.6 x10 3/uL) 5.69 Lymph # (Auto) (1.0 - 3.8 x10 3/uL) 1.54 [place]land # (Auto) (0.1 - 0.8 x10 3/uL) 0.88 H Eos # (Auto) (0.0 - 0.2 x10 3/uL) 0.26 H Baso # (Auto) (0.0 - 0.2 x10 3/uL) 0.01 Abs Immat Gran (auto) (0.00 - 0.03 x10 3/uL) 0.06 H Add Manual Diff NO Immature Gran % (0.0 - 2.0 %) 0.7 Nucleated RBC % (0 - 0 %) 0.0 Nucleated RBCs # (Man) (0.0 - 0.1 x10 3/uL) 0.00 Microbiology Date/Time Procedure - Status Source Growth 06/10 0050 Streptococcus pneumoniae Ag Screen - COMP URINE Radiology data:Recent Impressions:NUCLEAR MEDICINE - PULM VENT PERF IMAG 06/09 1400 Report Impression - Status: SIGNED Entered: 06/09/2019 1529 IMPRESSION:1. Low likelihood ratio for pulmonary embolism. Normal: < 5% probability of pulmonary embolism.Low likelihood ratio: < 20 % probability of pulmonary embolism.Intermediate likelihood ratio: 20-80% probability of pulmonaryembolism.High likelihood ratio: > 80% probability of pulmonary embolism. SL: [id number] By: [email or web address] - Amadou Vizcaino M.D. Results: labs reviewed, vital signs stable, current med profile rev'd Treatment Prophylaxis Treatment ProphylaxisOxygen: nasal cannula Diagnosis, Assessment PlanHospital course to date:Assessment and Plan: - Acute hypoxic respiratory failure secondary to pneumonia.- Multifocal PNA, right and Left lobe.- Hypoxia , rule out PE.- Shortness of breath and hypoxia secondary to pneumonia and fluid overload.- Fluid overload.- Fecal Material on Right Colon.- Acute kidney injury secondary to meds.- Hyperkalemia.- Subacute infarction/cerebrovascular accident.- History of hypertension.- History of diabetes type 2.- History of hyperlipidemia.- Metabolic acidosis. - Venous doppler study negative. PLAN: CCU.Continue Laxatives for Constipation.Continue IV ABX for PNA.Aggressive pulmonary toilet including incentive spirometry, nebulizer treatment,and O2 support.Cough medication.Need of sleep study to rule out sleep apnea.Monitor the kidney function.Statin and aspirin per neurologist for the cerebrovascular accident.Follow labs and replace as needed.SCD for DVT prophylaxis.Glycemic control, Accu-Chek a.c. and at bedtime, sliding scale, diabetic diet.Monitor. Code status: full codePlan discussed with: patient, admitting physician, consultants, nurse, special education case manager at 1311 RPT #:[id number] OF REPORTPRProgress [id number]:10:00G.[id number] le for patient [id number]:12:12 [facility] 2019-06-10 13:10:00 [id number]:10:00 [facility] [place] [facility] ([facility])Pulmonology Progress NoteREPORT#:[id number] REPORT STATUS: SignedDATE:06/10/19 TIME: 1310 PATIENT: DUSTY FRANCOIS UNIT #: [id number]#: [id number] [address] AGE: 58 SEX: M ATTEND: Kyung Bedoya [facility] AUTHOR: Koko Chung MEDICATION ADMINISTRATION PROFESSIONAL * ALL edits or amendments must be made on the electronic/computer document * Koko Chung 06/10/19 1310:SubjectiveChief Complaint:He is on 5 liter NC.He says that his feeling better today.Breathing is stable.Less SOB with exertion.Denies any N/V/D.Denies any Cp, chills, SOBBP and HR stable. Review of Systems ROSConstitutional:fatigue, generalized weakness. Respiratory:Reports: pneumonia. Denies: SORIANO (dyspnea on exertion), pleuritic pain, SOB, wheezing. Cardiovascular:Denies: edema, orthopnea. GI:Reports: abdominal pain, constipation, nausea. Denies: GERD, hiatal hernia. :Denies: flank pain, frequency, hematuria. Musculoskeletal:Denies: extremity swelling, joint pain. Endocrine:Denies: polydipsia, polyphagia. Neuro:Denies: dizziness, focal weakness, lightheaded. Objective Physical ExamVS/I O:Last Documented: Result Date Time Pulse Ox 95 06/10 1100 B/P 145/88 06/10 1100 B/P Mean 111 06/10 1100 Pulse 93 06/10 1100 Resp 12 06/10 1100 O2 Delivery Nasal cannula 06/10 0846 O2 Flow Rate 3.648842 06/10 0846 Temp 37.5 06/10 0800 FiO2 70 06/06 0215 24 hour I O ending at 0700: 06/10 0700 06/09 1900 Intake Total 1542.35 1324.10 Output Total Balance 1542.35 1324.10 Intake, IV 1542.35 844.10 Intake, Oral 480 Number 1 1 Bowel Movements Number Voids 1 3 Patient Weight Weight (lb): 190Weight (oz): 0.62Weight (kg): 86.200 Medications:Active Meds + DC'd Last 24 HrsLinezolid 300 ML Q12HR IV Metoprolol Succinate 50 MG BID PO Cefepime HCl 1 GM Q8H IV Sodium Chloride 100 MLAlbuterol/Ipratropium 3 ML RTQ6H INH Albuterol/Ipratropium 3 ML RTQ2H PRN PRN INH Bisacodyl 10 MG DAILY PRN PRN PO Heparin Sodium 5,000 UNIT Q12HR SUBQ Carvedilol 12.5 MG BID@0900,2100 PO (DC) Amlodipine Besylate 5 MG DAILY PO Hydralazine HCl 10 MG Q6H PRN PRN IV Sodium Bicarbonate 75 ML .[id number] IV (DC) Sodium Chloride 1,000 MLMetoclopramide HCl 10 MG Q8H IV Sodium Chloride 10 ML ASDIR PRN IV Pantoprazole Sodium 40 MG DAILY IV Promethazine HCl 25 MG Q8H PRN PRN IM Diphenhydramine HCl 25 MG Q6H PRN PRN PO Azithromycin 500 MG Q24H IV Sodium Chloride 250 MLBenzonatate 100 MG Q6H PRN PRN PO Aspirin 81 MG DAILY PO Dextrose/Water 125 ML ASDIR PRN IV Dextrose/Water 250 ML ASDIR PRN IV Glucagon 1 MG ASDIR PRN IM Insulin Glargine 10 UNIT Q12HR SUBQ Al Hydrox/Mg Hydrox/Simethicone 30 ML Q4H PRN PRN PO Docusate Sodium 100 MG BID PRN PRN PO Ergocalciferol 50,000 INTL.UNITS Q7D PO (CKD) Hydrocodone Bitart/Acetaminophen 1 TAB Q6H PRN PRN PO Insulin Human Lispro 0 AC HS SUBQ Lactulose 20 GM Q6H PRN PRN PO Mupirocin 1 APPLIC BID NASAL (DC) Ondansetron HCl 4 MG Q4H PRN PRN IV Potassium Chloride 40 MEQ DAILY PRN PRN PO Ticagrelor 90 MG BID PO Zolpidem Tartrate 5 MG BEDTIME PRN PRN PO Acetaminophen 650 MG Q6H PRN PRN PO Atropine Sulfate 0.5 MG ASDIR PRN IV Atorvastatin Calcium 80 MG DAILY 1700 PO Morphine Sulfate 2 MG Q3H PRN PRN IV General appearance: awake, orientedHead/eyes: PERRLACardiovascular: normal heart sounds, normal S1/Y8Ynjbwfhpagc/chest: on oxygen, symmetric expansion, no distressAbdomen: soft, non-tenderGenitourinary: no wallace, no bladder distentionMusculoskeletal: no muscle spasmNeuro/VACUUM FILTER OPERATOR: alert, oriented X 3, CNII-XII intactSkin: warm, dry, intact ResultsFindings/Data:Laboratory Tests 06/10/19 0445:[Embedded Image Not Available] 06/09/19 0445:[Embedded Image Not Available]Laboratory Tests 06/10 06/10 06/10 06/09 06/09 07 0445 0445 2020 170 Chemistry Sodium (134 - 147 mEq/L) 142 Potassium (3.4 - 5.0 mEq/L) 4.0 Chloride (100 - 108 mEq/L) 108 Carbon Dioxide (21 - 33 mEq/L) 29 Anion Gap (0 - 20) 9 BUN (7 - 18 mg/dL) 28 H Creatinine (0.6 - 1.3 mg/dL) 1.7 H Glomerular Filtr Rate (90 - 95) 50.7 L Glucose (70 - 110 mg/dL) 96 POC Glucose (70 - 110 MG/DL) 90 116 H 97 Calcium (8.0 - 10.5 mg/dL) 7.8 L Magnesium (1.8 - 2.4 mg/dL) 2.50 H Laboratory Tests 06/10 0445 Hematology WBC (4.5 - 11.0 x10 3/uL) 8.44 RBC (4.00 - 5.60 x10 6/uL) 2.96 L Hgb (12.5 - 16.9 g/dL) 7.9 L Hct (37.5 - 50.7 %) 24.9 L MCV (81.0 - 99.0 fL) 84.1 MCH (27.0 - 33.0 pg) 26.7 L MCHC (33.0 - 37.0 g/dL) 31.7 L RDW (11.5 - 14.5 %) 13.6 Plt Count (150 - 400 x10 3/uL) 356 MPV (7.0 - 9.0 fL) 10.0 H Neut % (Auto) (56.0 - 77.0 %) 67.5 Lymph % (Auto) (14.0 - 32.0 %) 18.2 [place]land % (Auto) (4.8 - 9.0 %) 10.4 H Eos % (Auto) (0.3 - 3.7 %) 3.1 Baso % (Auto) (0.0 - 2.0 %) 0.1 Neut # (Auto) (2.0 - 7.6 x10 3/uL) 5.69 Lymph # (Auto) (1.0 - 3.8 x10 3/uL) 1.54 [place]land # (Auto) (0.1 - 0.8 x10 3/uL) 0.88 H Eos # (Auto) (0.0 - 0.2 x10 3/uL) 0.26 H Baso # (Auto) (0.0 - 0.2 x10 3/uL) 0.01 Abs Immat Gran (auto) (0.00 - 0.03 x10 3/uL) 0.06 H Add Manual Diff NO Immature Gran % (0.0 - 2.0 %) 0.7 Nucleated RBC % (0 - 0 %) 0.0 Nucleated RBCs # (Man) (0.0 - 0.1 x10 3/uL) 0.00 Microbiology Date/Time Procedure - Status Source Growth 06/10 0050 Streptococcus pneumoniae Ag Screen - COMP URINE Radiology data:Recent Impressions:NUCLEAR MEDICINE - PULM VENT PERF IMAG 06/09 1400 Report Impression - Status: SIGNED Entered: 06/09/2019 1529 IMPRESSION:1. Low likelihood ratio for pulmonary embolism. Normal: < 5% probability of pulmonary embolism.Low likelihood ratio: < 20 % probability of pulmonary embolism.Intermediate likelihood ratio: 20-80% probability of pulmonaryembolism.High likelihood ratio: > 80% probability of pulmonary embolism. SL: [id number] By: [email or web address] - Amadou Vizcaino M.D. Results: labs reviewed, vital signs stable, current med profile rev'd Treatment Prophylaxis Treatment ProphylaxisOxygen: nasal cannula Diagnosis, Assessment PlanHospital course to date:Assessment and Plan: - Acute hypoxic respiratory failure secondary to pneumonia.- Multifocal PNA, right and Left lobe.- Hypoxia , rule out PE.- Shortness of breath and hypoxia secondary to pneumonia and fluid overload.- Fluid overload.- Fecal Material on Right Colon.- Acute kidney injury secondary to meds.- Hyperkalemia.- Subacute infarction/cerebrovascular accident.- History of hypertension.- History of diabetes type 2.- History of hyperlipidemia.- Metabolic acidosis. - Venous doppler study negative. PLAN: CCU.Continue Laxatives for Constipation.Continue IV ABX for PNA.Aggressive pulmonary toilet including incentive spirometry, nebulizer treatment,and O2 support.Cough medication.Need of sleep study to rule out sleep apnea.Monitor the kidney function.Statin and aspirin per neurologist for the cerebrovascular accident.Follow labs and replace as needed.SCD for DVT prophylaxis.Glycemic control, Accu-Chek a.c. and at bedtime, sliding scale, diabetic diet.Monitor. Code status: full codePlan discussed with: patient, admitting physician, consultants, nurse, special education case manager Antoine Lee 06/13/19 0128:Attestations Midlevel/Physician AttestationPhysician attestation:Agree with the findings and plan as documented by MEDICATION ADMINISTRATION PROFESSIONAL: as abovereviewedpt seen and examineddw RN at 1311 RPT #:[id number] OF REPORTPRProgress [id number]:10:00G.[id number] le for patient [id number]:29:05 [facility]L 2019-06-10 13:10:00 [id number]:10:00 [facility] [place] [facility] ([facility])Pulmonology Progress NoteREPORT#:[id number] REPORT STATUS: SignedDATE:06/10/19 TIME: 1310 PATIENT: DUSTY FRANCOIS UNIT #: [id number]#: [id number] [address] [birth year] AGE: 58 SEX: M ATTEND: Kyung Bedoya [facility] AUTHOR: Koko Chung MEDICATION ADMINISTRATION PROFESSIONAL * ALL edits or amendments must be made on the electronic/computer document * Koko Chung 06/10/19 1310:SubjectiveChief Complaint:He is on 5 liter NC.He says that his feeling better today.Breathing is stable.Less SOB with exertion.Denies any N/V/D.Denies any Cp, chills, SOBBP and HR stable. Review of Systems ROSConstitutional:fatigue, generalized weakness. Respiratory:Reports: pneumonia. Denies: SORIANO (dyspnea on exertion), pleuritic pain, SOB, wheezing. Cardiovascular:Denies: edema, orthopnea. GI:Reports: abdominal pain, constipation, nausea. Denies: GERD, hiatal hernia. :Denies: flank pain, frequency, hematuria. Musculoskeletal:Denies: extremity swelling, joint pain. Endocrine:Denies: polydipsia, polyphagia. Neuro:Denies: dizziness, focal weakness, lightheaded. Objective Physical ExamVS/I O:Last Documented: Result Date Time Pulse Ox 95 06/10 1100 B/P 145/88 06/10 1100 B/P Mean 111 06/10 1100 Pulse 93 06/10 1100 Resp 12 06/10 1100 O2 Delivery Nasal cannula 06/10 0846 O2 Flow Rate 3.198443 06/10 0846 Temp 37.5 06/10 0800 FiO2 70 06/06 0215 24 hour I O ending at 0700: 06/10 0700 06/09 1900 Intake Total 1542.35 1324.10 Output Total Balance 1542.35 1324.10 Intake, IV 1542.35 844.10 Intake, Oral 480 Number 1 1 Bowel Movements Number Voids 1 3 Patient Weight Weight (lb): 190Weight (oz): 0.62Weight (kg): 86.200 Medications:Active Meds + DC'd Last 24 HrsLinezolid 300 ML Q12HR IV Metoprolol Succinate 50 MG BID PO Cefepime HCl 1 GM Q8H IV Sodium Chloride 100 MLAlbuterol/Ipratropium 3 ML RTQ6H INH Albuterol/Ipratropium 3 ML RTQ2H PRN PRN INH Bisacodyl 10 MG DAILY PRN PRN PO Heparin Sodium 5,000 UNIT Q12HR SUBQ Carvedilol 12.5 MG BID@0900,2100 PO (DC) Amlodipine Besylate 5 MG DAILY PO Hydralazine HCl 10 MG Q6H PRN PRN IV Sodium Bicarbonate 75 ML .[id number] IV (DC) Sodium Chloride 1,000 MLMetoclopramide HCl 10 MG Q8H IV Sodium Chloride 10 ML ASDIR PRN IV Pantoprazole Sodium 40 MG DAILY IV Promethazine HCl 25 MG Q8H PRN PRN IM Diphenhydramine HCl 25 MG Q6H PRN PRN PO Azithromycin 500 MG Q24H IV Sodium Chloride 250 MLBenzonatate 100 MG Q6H PRN PRN PO Aspirin 81 MG DAILY PO Dextrose/Water 125 ML ASDIR PRN IV Dextrose/Water 250 ML ASDIR PRN IV Glucagon 1 MG ASDIR PRN IM Insulin Glargine 10 UNIT Q12HR SUBQ Al Hydrox/Mg Hydrox/Simethicone 30 ML Q4H PRN PRN PO Docusate Sodium 100 MG BID PRN PRN PO Ergocalciferol 50,000 INTL.UNITS Q7D PO (CKD) Hydrocodone Bitart/Acetaminophen 1 TAB Q6H PRN PRN PO Insulin Human Lispro 0 AC HS SUBQ Lactulose 20 GM Q6H PRN PRN PO Mupirocin 1 APPLIC BID NASAL (DC) Ondansetron HCl 4 MG Q4H PRN PRN IV Potassium Chloride 40 MEQ DAILY PRN PRN PO Ticagrelor 90 MG BID PO Zolpidem Tartrate 5 MG BEDTIME PRN PRN PO Acetaminophen 650 MG Q6H PRN PRN PO Atropine Sulfate 0.5 MG ASDIR PRN IV Atorvastatin Calcium 80 MG DAILY 1700 PO Morphine Sulfate 2 MG Q3H PRN PRN IV General appearance: awake, orientedHead/eyes: PERRLACardiovascular: normal heart sounds, normal S1/P8Suqanjiqfxs/chest: on oxygen, symmetric expansion, no distressAbdomen: soft, non-tenderGenitourinary: no wallace, no bladder distentionMusculoskeletal: no muscle spasmNeuro/VACUUM FILTER OPERATOR: alert, oriented X 3, CNII-XII intactSkin: warm, dry, intact ResultsFindings/Data:Laboratory Tests 06/10/19444:[Embedded Image Not Available] 06/09/19 044:[Embedded Image Not Available]Laboratory Tests 06/105 444 2020 1700 Chemistry Sodium (134 - 147 mEq/L) 142 Potassium (3.4 - 5.0 mEq/L) 4.0 Chloride (100 - 108 mEq/L) 108 Carbon Dioxide (21 - 33 mEq/L) 29 Anion Gap (0 - 20) 9 BUN (7 - 18 mg/dL) 28 H Creatinine (0.6 - 1.3 mg/dL) 1.7 H Glomerular Filtr Rate (90 - 95) 50.7 L Glucose (70 - 110 mg/dL) 96 POC Glucose (70 - 110 MG/DL) 90 116 H 97 Calcium (8.0 - 10.5 mg/dL) 7.8 L Magnesium (1.8 - 2.4 mg/dL) 2.50 H Laboratory Tests 06/10 445 Hematology WBC (4.5 - 11.0 x10 3/uL) 8.44 RBC (4.00 - 5.60 x10 6/uL) 2.96 L Hgb (12.5 - 16.9 g/dL) 7.9 L Hct (37.5 - 50.7 %) 24.9 L MCV (81.0 - 99.0 fL) 84.1 MCH (27.0 - 33.0 pg) 26.7 L MCHC (33.0 - 37.0 g/dL) 31.7 L RDW (11.5 - 14.5 %) 13.6 Plt Count (150 - 400 x10 3/uL) 356 MPV (7.0 - 9.0 fL) 10.0 H Neut % (Auto) (56.0 - 77.0 %) 67.5 Lymph % (Auto) (14.0 - 32.0 %) 18.2 [place]land % (Auto) (4.8 - 9.0 %) 10.4 H Eos % (Auto) (0.3 - 3.7 %) 3.1 Baso % (Auto) (0.0 - 2.0 %) 0.1 Neut # (Auto) (2.0 - 7.6 x10 3/uL) 5.69 Lymph # (Auto) (1.0 - 3.8 x10 3/uL) 1.54 [place]land # (Auto) (0.1 - 0.8 x10 3/uL) 0.88 H Eos # (Auto) (0.0 - 0.2 x10 3/uL) 0.26 H Baso # (Auto) (0.0 - 0.2 x10 3/uL) 0.01 Abs Immat Gran (auto) (0.00 - 0.03 x10 3/uL) 0.06 H Add Manual Diff NO Immature Gran % (0.0 - 2.0 %) 0.7 Nucleated RBC % (0 - 0 %) 0.0 Nucleated RBCs # (Man) (0.0 - 0.1 x10 3/uL) 0.00 Microbiology Date/Time Procedure - Status Source Growth 06/10 0050 Streptococcus pneumoniae Ag Screen - COMP URINE Radiology data:Recent Impressions:NUCLEAR MEDICINE - PULM VENT PERF IMAG 06/09 1400 Report Impression - Status: SIGNED Entered: 06/09/2019 1529 IMPRESSION:1. Low likelihood ratio for pulmonary embolism. Normal: < 5% probability of pulmonary embolism.Low likelihood ratio: < 20 % probability of pulmonary embolism.Intermediate likelihood ratio: 20-80% probability of pulmonaryembolism.High likelihood ratio: > 80% probability of pulmonary embolism. SL: [id number] By: AlenaAP2Rita Vizcaino M.D. Results: labs reviewed, vital signs stable, current med profile rev'd Treatment Prophylaxis Treatment ProphylaxisOxygen: nasal cannula Diagnosis, Assessment PlanHospital course to date:Assessment and Plan: - Acute hypoxic respiratory failure secondary to pneumonia.- Multifocal PNA, right and Left lobe.- Hypoxia , rule out PE.- Shortness of breath and hypoxia secondary to pneumonia and fluid overload.- Fluid overload.- Fecal Material on Right Colon.- Acute kidney injury secondary to meds.- Hyperkalemia.- Subacute infarction/cerebrovascular accident.- History of hypertension.- History of diabetes type 2.- History of hyperlipidemia.- Metabolic acidosis. - Venous doppler study negative. PLAN: CCU.Continue Laxatives for Constipation.Continue IV ABX for PNA.Aggressive pulmonary toilet including incentive spirometry, nebulizer treatment,and O2 support.Cough medication.Need of sleep study to rule out sleep apnea.Monitor the kidney function.Statin and aspirin per neurologist for the cerebrovascular accident.Follow labs and replace as needed.SCD for DVT prophylaxis.Glycemic control, Accu-Chek a.c. and at bedtime, sliding scale, diabetic diet.Monitor. Code status: full codePlan discussed with: patient, admitting physician, consultants, nurse, special education case manager Antoine Lee 06/13/19 0128:Attestations Midlevel/Physician AttestationPhysician attestation:Agree with the findings and plan as documented by MEDICATION ADMINISTRATION PROFESSIONAL: as abovereviewedpt seen and examineddw RN at 1311 at 0136 RPT #:[id number] OF REPORTPRProgress [id number]:10:00G.[id number] for patient [id number]:36:16 [facility] 2019-06-10 11:23:00 [id number]:23:00 [facility] ([facility])Infectious Dis. Progress NoteREPORT#:[id number] REPORT STATUS: SignedDATE:06/10/19 TIME: 1123 PATIENT: DUSTY FRANCOIS UNIT #: [id number]#: [id number] ROOM[address]BED: [address]: [birth year] AGE: 58 SEX: M ATTEND: Kyung Bedoya [facility] AUTHOR: France Lee MD * ALL edits or amendments must be made on the electronic/computer document * SubjectiveChief Complaint:f/u HCAPPatient reports:Yes: cough. No: diarrhea, fever, headache, nausea, shortness of breath, vomiting. Portions of this section were scribed by Janice Donahue on 06/10/19 at 1126 Objective GeneralVS/I O:Last Documented: Result Date Time Pulse Ox 96 06/10 0846 O2 Delivery Nasal cannula 06/10 0846 O2 Flow Rate 3.134075 06/10 0846 Pulse 94 06/10 0800 Temp 37.5 06/10 0800 B/P 140/81 06/10 0800 B/P Mean 105 06/10 0800 Resp 21 06/10 0800 FiO2 70 06/06 0215 Vital Signs Date Temp Pulse Resp B/P B/P Mean Pulse Ox FiO2 06/09-06/10 36.7-37.5 85-106 12-33 106-161/62-91 79-119 93-100 24 hour I O ending at 0700: 06/10 0700 06/09 1900 Intake Total 1542.35 1324.10 Output Total Balance 1542.35 1324.10 Intake, IV 1542.35 844.10 Intake, Oral 480 Number 1 1 Bowel Movements Number Voids 1 3 Patient Weight Weight (lb): 190Weight (oz): 0.62Weight (kg): 86.200 Physical ExamGeneral appearance: alert, awake, orientedHead/Eyes: atraumatic, clear cornea, EOMI, normal conjunctiva/sclera, normal eyelids/periorb, normocephalic, PERRLENT: normal dentition, normal nose, normal pharynx, normal sinusNeck: full range of motion, non-tender, normal thyroid, supple/no meningismus, no bruit/NL carotids, no JVD, no masses or swelling, no lymphadenopathyCardiovascular: regular rate rhythmRespiratory: decreased breath soundsAbdomen: non-tender, soft, no distention, no guarding, no mass/organomegaly, no reboundExtremities: moves all, normal capillary refillNeuro/VACUUM FILTER OPERATOR: alert, oriented X 3Skin: dry, intact ResultsFindings/Data:Laboratory Tests 06/10 1701 Chemistry Sodium (134 - 147 mEq/L) 142 Potassium (3.4 - 5.0 mEq/L) 4.0 Chloride (100 - 108 mEq/L) 108 Carbon Dioxide (21 - 33 mEq/L) 29 Anion Gap (0 - 20) 9 BUN (7 - 18 mg/dL) 28 H Creatinine (0.6 - 1.3 mg/dL) 1.7 H Glomerular Filtr Rate (90 - 95) 50.7 L Glucose (70 - 110 mg/dL) 96 POC Glucose (70 - 110 MG/DL) 116 H 97 Calcium (8.0 - 10.5 mg/dL) 7.8 L Magnesium (1.8 - 2.4 mg/dL) 2.50 H Laboratory Tests 06/10 445 Hematology WBC (4.5 - 11.0 x10 3/uL) 8.44 RBC (4.00 - 5.60 x10 6/uL) 2.96 L Hgb (12.5 - 16.9 g/dL) 7.9 L Hct (37.5 - 50.7 %) 24.9 L MCV (81.0 - 99.0 fL) 84.1 MCH (27.0 - 33.0 pg) 26.7 L MCHC (33.0 - 37.0 g/dL) 31.7 L RDW (11.5 - 14.5 %) 13.6 Plt Count (150 - 400 x10 3/uL) 356 MPV (7.0 - 9.0 fL) 10.0 H Neut % (Auto) (56.0 - 77.0 %) 67.5 Lymph % (Auto) (14.0 - 32.0 %) 18.2 [place] % (Auto) (4.8 - 9.0 %) 10.4 H Eos % (Auto) (0.3 - 3.7 %) 3.1 Baso % (Auto) (0.0 - 2.0 %) 0.1 Neut # (Auto) (2.0 - 7.6 x10 3/uL) 5.69 Lymph # (Auto) (1.0 - 3.8 x10 3/uL) 1.54 [place] # (Auto) (0.1 - 0.8 x10 3/uL) 0.88 H Eos # (Auto) (0.0 - 0.2 x10 3/uL) 0.26 H Baso # (Auto) (0.0 - 0.2 x10 3/uL) 0.01 Abs Immat Gran (auto) (0.00 - 0.03 x10 3/uL) 0.06 H Add Manual Diff NO Immature Gran % (0.0 - 2.0 %) 0.7 Nucleated RBC % (0 - 0 %) 0.0 Nucleated RBCs # (Man) (0.0 - 0.1 x10 3/uL) 0.00 Laboratory Tests 06/09 113 Immunology IEP [id number] RVP Comment Laboratory Tests 06/09 1130 Serology Adenovirus (PCR) (Negative) Negative Bordetella holmesii PCR (Negative) Negative B. pertussis DNA (PCR) (Negative) Negative B.parapertussis DNA PCR (Negative) Negative Human Metapneumovir PCR (Negative) Negative Influenza A (H1) PCR (Negative) Negative Influenza A (H3) PCR (Negative) Negative Influenza Type A (PCR) (Negative) Negative Influenza Type B (PCR) (Negative) Negative Parainfluenza 1 (PCR) (Negative) Negative Parainfluenza 2 (PCR) (Negative) Negative Parainfluenza 3 (PCR) (Negative) Negative Parainfluenza 4 (PCR) (Negative) Negative RSV Alpha (Negative) Negative RSV Beta (Negative) Negative Rhinovirus (PCR) (Negative) Negative Microbiology Date/Time Procedure - Status Source Growth 06/10 50 Streptococcus pneumoniae Ag Screen - COMP URINE Microbiology:06/10 50 URINE: Streptococcus pneumoniae Ag Screen - COMP06/05 1712 BLOOD: Blood Culture - RES Active Meds + DC'd Last 24 HrsLinezolid 300 ML Q12HR IV Metoprolol Succinate 50 MG BID PO Cefepime HCl 1 GM Q8H IV Sodium Chloride 100 MLAlbuterol/Ipratropium 3 ML RTQ6H INH Albuterol/Ipratropium 3 ML RTQ2H PRN PRN INH Bisacodyl 10 MG DAILY PRN PRN PO Heparin Sodium 5,000 UNIT Q12HR SUBQ Carvedilol 12.5 MG BID@0900,2100 PO (DC) Amlodipine Besylate 5 MG DAILY PO Hydralazine HCl 10 MG Q6H PRN PRN IV Sodium Bicarbonate 75 ML .[id number] IV (DC) Sodium Chloride 1,000 MLMetoclopramide HCl 10 MG Q8H IV Sodium Chloride 10 ML ASDIR PRN IV Pantoprazole Sodium 40 MG DAILY IV Promethazine HCl 25 MG Q8H PRN PRN IM Diphenhydramine HCl 25 MG Q6H PRN PRN PO Azithromycin 500 MG Q24H IV Sodium Chloride 250 MLBenzonatate 100 MG Q6H PRN PRN PO Aspirin 81 MG DAILY PO Dextrose/Water 125 ML ASDIR PRN IV Dextrose/Water 250 ML ASDIR PRN IV Glucagon 1 MG ASDIR PRN IM Insulin Glargine 10 UNIT Q12HR SUBQ Al Hydrox/Mg Hydrox/Simethicone 30 ML Q4H PRN PRN PO Docusate Sodium 100 MG BID PRN PRN PO Ergocalciferol 50,000 INTL.UNITS Q7D PO (CKD) Hydrocodone Bitart/Acetaminophen 1 TAB Q6H PRN PRN PO Insulin Human Lispro 0 AC HS SUBQ Lactulose 20 GM Q6H PRN PRN PO Mupirocin 1 APPLIC BID NASAL (DC) Ondansetron HCl 4 MG Q4H PRN PRN IV Potassium Chloride 40 MEQ DAILY PRN PRN PO Ticagrelor 90 MG BID PO Zolpidem Tartrate 5 MG BEDTIME PRN PRN PO Acetaminophen 650 MG Q6H PRN PRN PO Atropine Sulfate 0.5 MG ASDIR PRN IV Atorvastatin Calcium 80 MG DAILY 1700 PO Morphine Sulfate 2 MG Q3H PRN PRN IV Radiology data:Recent Impressions:NUCLEAR MEDICINE - PULM VENT PERF IMAG 06/09 1400 Report Impression - Status: SIGNED Entered: 06/09/2019 1529 IMPRESSION:1. Low likelihood ratio for pulmonary embolism. Normal: < 5% probability of pulmonary embolism.Low likelihood ratio: < 20 % probability of pulmonary embolism.Intermediate likelihood ratio: 20-80% probability of pulmonaryembolism.High likelihood ratio: > 80% probability of pulmonary embolism. SL: [id number] By: [email or web address] - Amadou Vizcaino M.D. Portions of this section were scribed by Janice Donahue on 06/10/19 at 1126 Diagnosis, Assessment PlanProblem List/A P: 1. Community acquired pneumonia* s/p treatment with rocephin and Azihtromycin * now concerns for noscomial pneumonia:cont on Zyvox and cefepime day#2 out of 7days* Respiratory viral panel neg, strep pneumo ag neg 2. DM2 (diabetes mellitus, type 2) 3. Diabetic neuropathy 4. Acute on chronic renal failure 5. PAD (peripheral artery disease) Portions of this section were scribed by Janice Donahue on 06/10/19 at 1126 at 1459 RPT #:[id number] OF REPORTPRProgress [id number]:23:00G.[id number] le for patient uadkSIVQPZKLPGCCUC2243-34-68Q16:52:02 [facility] 2019-06-10 09:09:00 [id number]:09:00 H [facility] ([facility])Nephrology Progress NoteREPORT#:[id number] REPORT STATUS: SignedDATE:06/10/19 TIME: 908 PATIENT: DUSTY FRANCOIS UNIT #: [id number]#: [id number] [address] [birth year] AGE: 58 SEX: M ATTEND: Kyung Bedoya [facility] AUTHOR: Gideon Teran MD * ALL edits or amendments must be made on the electronic/computer document * SubjectiveChief Complaint:Syncope/NSTEMI/AKIPatient reports:No: complaints. Comments:Patient seen and evaluated, discussed with care team, HPI no change from initial, feels better Review of SystemsConstitutional:Yes fatigue, No chills, No feverSkin:No abrasion, No bruisingAllergy/Immun:No hives, No itchingEyes:No redness, No dischargeENT:No ear drainage, No ear ringingRespiratory:Yes non productive cough, Yes SOBCardiovascular:No palpitationsGI:Yes nausea, Yes vomiting, No abdominal pain Objective GeneralVS/I O:Vital Signs: Date Time Temp Pulse Resp B/P B/P Pulse O2 O2 Flow FiO2 Mean Ox Delivery Rate 06/10 0846 96 Nasal 3.511065 cannula 06/10 0800 94 06/10 0800 21 140/81 105 95 06/10 0700 89 12 134/79 99 97 06/10 0600 94 20 142/80 105 97 06/10 0500 93 17 161/91 119 93 06/10 0400 37.2 88 19 143/83 109 100 8 06/10 0354 99 Nasal 3.089600 cannula 06/10 0300 92 14 152/77 105 95 06/10 0200 85 13 106/62 79 95 06/10 0100 95 17 151/75 107 95 06/10 0000 36.9 92 15 146/83 109 97 8 06/09 2300 93 14 126/76 94 99 06/09 2200 94 33 132/81 102 96 06/09 2100 98 13 131/75 97 100 06/09 2045 98 Nasal 3.749684 cannula 06/09 2000 36.7 96 17 128/73 95 95 2 06/09 1930 Nasal 5.442425 cannula 06/09 1900 104 18 124/77 93 97 06/09 1800 106 20 155/79 111 97 06/09 1700 98 19 137/77 101 96 06/09 1600 36.9 100 14 133/70 91 95 High flow 5.121396 nasal cannula 06/09 1600 100 14 133/70 95 95 06/09 1400 100 18 96 06/09 1300 100 18 142/80 105 97 06/09 1200 37.4 100 20 155/84 107 98 High flow 5.454514 nasal cannula 06/09 1200 101 18 155/84 113 96 06/09 1100 99 20 134/76 99 98 06/09 1009 99 22 135/84 103 97 24 hour I O ending at 0700: 06/10 0700 06/09 1900 Intake Total 1542.35 1324.10 Output Total Balance 1542.35 1324.10 Intake, IV 1542.35 844.10 Intake, Oral 480 Number 1 1 Bowel Movements Number Voids 1 3 MedicationsActive Meds + DC'd Last 24 HrsLinezolid 300 ML Q12HR IV Metoprolol Succinate 50 MG BID PO Cefepime HCl 1 GM Q8H IV Sodium Chloride 100 MLCefepime HCl 1 GM Q12H IV (DC) Sodium Chloride 100 MLAlbuterol/Ipratropium 3 ML RTQ6H INH Albuterol/Ipratropium 3 ML RTQ2H PRN PRN INH Piperacillin Sod/Tazobactam Sod 3.375 GM Q8H IV (DC) Sodium Chloride 100 MLBisacodyl 10 MG DAILY PRN PRN PO Heparin Sodium 5,000 UNIT Q12HR SUBQ Carvedilol 12.5 MG BID@0900,2100 PO (DC) Amlodipine Besylate 5 MG DAILY PO Hydralazine HCl 10 MG Q6H PRN PRN IV Sodium Bicarbonate 75 ML .[id number] IV (CKD) Sodium Chloride 1,000 MLMetoclopramide HCl 10 MG Q8H IV Sodium Chloride 10 ML ASDIR PRN IV Pantoprazole Sodium 40 MG DAILY IV Promethazine HCl 25 MG Q8H PRN PRN IM Diphenhydramine HCl 25 MG Q6H PRN PRN PO Azithromycin 500 MG Q24H IV Sodium Chloride 250 MLBenzonatate 100 MG Q6H PRN PRN PO Aspirin 81 MG DAILY PO Dextrose/Water 125 ML ASDIR PRN IV Dextrose/Water 250 ML ASDIR PRN IV Glucagon 1 MG ASDIR PRN IM Insulin Glargine 10 UNIT Q12HR SUBQ Al Hydrox/Mg Hydrox/Simethicone 30 ML Q4H PRN PRN PO Docusate Sodium 100 MG BID PRN PRN PO Ergocalciferol 50,000 INTL.UNITS Q7D PO (CKD) Hydrocodone Bitart/Acetaminophen 1 TAB Q6H PRN PRN PO Insulin Human Lispro 0 AC HS SUBQ Lactulose 20 GM Q6H PRN PRN PO Mupirocin 1 APPLIC BID NASAL (DC) Ondansetron HCl 4 MG Q4H PRN PRN IV Potassium Chloride 40 MEQ DAILY PRN PRN PO Ticagrelor 90 MG BID PO Zolpidem Tartrate 5 MG BEDTIME PRN PRN PO Acetaminophen 650 MG Q6H PRN PRN PO Atropine Sulfate 0.5 MG ASDIR PRN IV Atorvastatin Calcium 80 MG DAILY 1700 PO (r) Morphine Sulfate 2 MG Q3H PRN PRN IV Physical ExamGeneral appearance: alert, no acute distressHead/eyes: atraumatic, normocephalicENT: moist mucous membranes, normal noseNeck: supple/no meningismusCardiovascular: normal heart sounds, no rubRespiratory: aerating well, no distressAbdomen: non-tender, softGenitourinary: no flank pain, no foleyExtremities: non-tender, no edemaMusculoskeletal: no tenderenessNeuro/VACUUM FILTER OPERATOR: alert, normal speechSkin: dry, intact ResultsFindings/Data:Laboratory Tests 06/10 1701 1122 0729 Chemistry POC Glucose (70 - 110 MG/DL) 116 H 97 125 H 132 H Magnesium (1.8 - 2.4 mg/dL) 2.50 H 06/09 1642 1620 1133 Chemistry Sodium (134 - 147 mEq/L) 143 Potassium (3.4 - 5.0 mEq/L) 4.2 Chloride (100 - 108 mEq/L) 109 H Carbon Dioxide (21 - 33 mEq/L) 27 Anion Gap (0 - 20) 11 BUN (7 - 18 mg/dL) 37 H Creatinine (0.6 - 1.3 mg/dL) 2.1 H Glomerular Filtr Rate (90 - 95) 39.7 L Glucose (70 - 110 mg/dL) 100 POC Glucose (70 - 110 MG/DL) 126 H 139 H 144 H Calcium (8.0 - 10.5 mg/dL) 8.0 Phosphorus (2.5 - 4.9 mg/dL) 3.4 Magnesium (1.8 - 2.4 mg/dL) 2.70 H Procalcitonin (0.00 - 0.05 ng/mL) 0.77 H 06/08 1612 1125 Chemistry Sodium (134 - 147 mEq/L) 143 Potassium (3.4 - 5.0 mEq/L) 4.2 Chloride (100 - 108 mEq/L) 112 H Carbon Dioxide (21 - 33 mEq/L) 23 Anion Gap (0 - 20) 12 BUN (7 - 18 mg/dL) 50 H Creatinine (0.6 - 1.3 mg/dL) 2.6 H Glomerular Filtr Rate (90 - 95) 31.0 L Glucose (70 - 110 mg/dL) 116 H POC Glucose (70 - 110 MG/DL) 148 H 136 H 165 H 149 H Calcium (8.0 - 10.5 mg/dL) 8.3 Phosphorus (2.5 - 4.9 mg/dL) 3.2 Magnesium (1.8 - 2.4 mg/dL) 2.70 H Laboratory Tests 06/10 06/09 06/08 0445 0445 0445 Hematology WBC (4.5 - 11.0 x10 3/uL) 8.44 8.39 11.19 H RBC (4.00 - 5.60 x10 6/uL) 2.96 L 3.38 L 3.39 L Hgb (12.5 - 16.9 g/dL) 7.9 L 9.0 L 9.3 L Hct (37.5 - 50.7 %) 24.9 L 28.5 L 28.9 L MCV (81.0 - 99.0 fL) 84.1 84.3 85.3 MCH (27.0 - 33.0 pg) 26.7 L 26.6 L 27.4 MCHC (33.0 - 37.0 g/dL) 31.7 L 31.6 L 32.2 L RDW (11.5 - 14.5 %) 13.6 13.7 13.7 Plt Count (150 - 400 x10 3/uL) 356 370 379 MPV (7.0 - 9.0 fL) 10.0 H 10.1 H 10.0 H Neut % (Auto) (56.0 - 77.0 %) 67.5 70.6 75.5 Lymph % (Auto) (14.0 - 32.0 %) 18.2 17.6 14.7 Highland % (Auto) (4.8 - 9.0 %) 10.4 H 10.4 H 8.8 Eos % (Auto) (0.3 - 3.7 %) 3.1 0.7 0.2 L Baso % (Auto) (0.0 - 2.0 %) 0.1 0.1 0.2 Neut # (Auto) (2.0 - 7.6 x10 3/uL) 5.69 5.92 8.46 H Lymph # (Auto) (1.0 - 3.8 x10 3/uL) 1.54 1.48 1.64 Highland # (Auto) (0.1 - 0.8 x10 3/uL) 0.88 H 0.87 H 0.98 H Eos # (Auto) (0.0 - 0.2 x10 3/uL) 0.26 H 0.06 0.02 Baso # (Auto) (0.0 - 0.2 x10 3/uL) 0.01 0.01 0.02 Abs Immat Gran (auto) (0.00 - 0.03 x10 3/uL) 0.06 H 0.05 H 0.07 H Add Manual Diff NO NO NO Immature Gran % (0.0 - 2.0 %) 0.7 0.6 0.6 Nucleated RBC % (0 - 0 %) 0.0 0.0 0.0 Nucleated RBCs # (Man) (0.0 - 0.1 x10 3/uL) 0.00 0.00 0.00 Laboratory Tests 06/09 1130 Immunology IEP Llte-1-Jirwzvnhww RVP Comment Laboratory Tests 06/09 1130 Serology Adenovirus (PCR) (Negative) Negative Bordetella holmesii PCR (Negative) Negative B. pertussis DNA (PCR) (Negative) Negative B.parapertussis DNA PCR (Negative) Negative Human Metapneumovir PCR (Negative) Negative Influenza A (H1) PCR (Negative) Negative Influenza A (H3) PCR (Negative) Negative Influenza Type A (PCR) (Negative) Negative Influenza Type B (PCR) (Negative) Negative Parainfluenza 1 (PCR) (Negative) Negative Parainfluenza 2 (PCR) (Negative) Negative Parainfluenza 3 (PCR) (Negative) Negative Parainfluenza 4 (PCR) (Negative) Negative RSV Alpha (Negative) Negative RSV Beta (Negative) Negative Rhinovirus (PCR) (Negative) Negative Microbiology Date/Time Procedure - Status Source Growth 06/10 0050 Streptococcus pneumoniae Ag Screen - COMP URINE Recent Impressions:RADIOLOGY - XR CHEST 1 V 06/08 1557 Report Impression - Status: SIGNED Entered: 06/08/2019 1632 IMPRESSION:Residual diffuse right pulmonary infiltrate with improvement over thelast 2 days.Coalescing opacity within the left lower lobe, density increased overthe last 2 days.Bilateral pleural effusions. SL: LS-HImpression By: [email or web address] - Karsten Rodrigez M.D.RADIOLOGY - XR ABDOMEN 1V (KUB) 06/08 1557 Report Impression - Status: SIGNED Entered: 06/08/2019 1637 IMPRESSION:1. No evidence of constipation.2. Unremarkable gas pattern.3. Well formed fecal material noted in the upper abdomen on the CTscan of 06/06/2019 has cleared. SL:01Impression By: Joel - Aftab Lim M.D.NUCLEAR MEDICINE - PULM VENT PERF IMAG 06/09 1400 Report Impression - Status: SIGNED Entered: 06/09/2019 1529 IMPRESSION:1. Low likelihood ratio for pulmonary embolism. Normal: < 5% probability of pulmonary embolism.Low likelihood ratio: < 20 % probability of pulmonary embolism.Intermediate likelihood ratio: 20-80% probability of pulmonaryembolism.High likelihood ratio: > 80% probability of pulmonary embolism. SL: [id number] By: [email or web address] - Amadou Vizcaino M.D. Laboratory Tests 06/10 2021 1701 1122 Chemistry POC Glucose (70 - 110 MG/DL) 116 H 97 125 H Magnesium (1.8 - 2.4 mg/dL) 2.50 H Laboratory Tests 06/10 445 Hematology WBC (4.5 - 11.0 x10 3/uL) 8.44 RBC (4.00 - 5.60 x10 6/uL) 2.96 L Hgb (12.5 - 16.9 g/dL) 7.9 L Hct (37.5 - 50.7 %) 24.9 L MCV (81.0 - 99.0 fL) 84.1 MCH (27.0 - 33.0 pg) 26.7 L MCHC (33.0 - 37.0 g/dL) 31.7 L RDW (11.5 - 14.5 %) 13.6 Plt Count (150 - 400 x10 3/uL) 356 MPV (7.0 - 9.0 fL) 10.0 H Neut % (Auto) (56.0 - 77.0 %) 67.5 Lymph % (Auto) (14.0 - 32.0 %) 18.2 Highland % (Auto) (4.8 - 9.0 %) 10.4 H Eos % (Auto) (0.3 - 3.7 %) 3.1 Baso % (Auto) (0.0 - 2.0 %) 0.1 Neut # (Auto) (2.0 - 7.6 x10 3/uL) 5.69 Lymph # (Auto) (1.0 - 3.8 x10 3/uL) 1.54 Highland # (Auto) (0.1 - 0.8 x10 3/uL) 0.88 H Eos # (Auto) (0.0 - 0.2 x10 3/uL) 0.26 H Baso # (Auto) (0.0 - 0.2 x10 3/uL) 0.01 Abs Immat Gran (auto) (0.00 - 0.03 x10 3/uL) 0.06 H Add Manual Diff NO Immature Gran % (0.0 - 2.0 %) 0.7 Nucleated RBC % (0 - 0 %) 0.0 Nucleated RBCs # (Man) (0.0 - 0.1 x10 3/uL) 0.00 Laboratory Tests 06/09 1130 Immunology IEP Elbp-8-Cofwghbcvf RVP Comment Laboratory Tests 06/09 1130 Serology Adenovirus (PCR) (Negative) Negative Bordetella holmesii PCR (Negative) Negative B. pertussis DNA (PCR) (Negative) Negative B.parapertussis DNA PCR (Negative) Negative Human Metapneumovir PCR (Negative) Negative Influenza A (H1) PCR (Negative) Negative Influenza A (H3) PCR (Negative) Negative Influenza Type A (PCR) (Negative) Negative Influenza Type B (PCR) (Negative) Negative Parainfluenza 1 (PCR) (Negative) Negative Parainfluenza 2 (PCR) (Negative) Negative Parainfluenza 3 (PCR) (Negative) Negative Parainfluenza 4 (PCR) (Negative) Negative RSV Alpha (Negative) Negative RSV Beta (Negative) Negative Rhinovirus (PCR) (Negative) Negative Microbiology Date/Time Procedure - Status Source Growth 06/10 0050 Streptococcus pneumoniae Ag Screen - COMP URINE Diagnosis, Assessment PlanFree Text A P:Patient seen and evaluated, discussed with care team, Images and laboratory reviewedHistory of HTN: metoprolol: Monitor BP closely and adjust medications as neededDM: insulin: Monitor BS closely and adjust medications as neededHLD: LipitorCAD s/p NSTEMI , s/p LHC and LAD/LCX PCI: ASA/TicagrelorPNA: Rocephin/AzithromaxSOB with elevated BNP, he has no LE edema, his SOB could be mainly related to his PNA, he is nauseated and eating, would hold off diuretcis if possibleAKI felisha related to CINHis baseline creat 1.2 in Sep 2018, eGFR 80 , felisha had some progression since then, check UA, urine P/creat ratio and renal USAcidosis: pH this AM 7.287/ Creat 3.6 stable, K WNL4.3, HCO3 22 better, renal US WNL7/ Creat better 2.6, electrolytes acceptable, HCO3 23, continue IVF06/09/19 Creat 2.1 better, HCO3 27, Hgb 9, WBC 8.397/ Creat 1.7 better, HCO3 29 will d/c IVF , other electrolyts acceptable, Hgb 7.9 at 1053 RPT #:[id number] OF REPORTPRProgress [id number]:09:00G.[id number] le for patient lekqKMWJQKMLLULVOW0279-05-69H43:54:17 [facility] 2019-06-09 17:32:00 [id number]:32:00 [facility] Prog. NoteREPORT#:[id number] REPORT STATUS: SignedDATE:06/09/19 TIME: 1731 PATIENT: DUSTY FRANCOIS UNIT #: [id number]#: [id number] [address] [birth year] AGE: 58 SEX: M ATTEND: Kyung Bedoya AUTHOR: Kyung Bedoya MD * ALL edits or amendments must be made on the electronic/computer document * SubjectiveChief Complaint:C/O FEVER COUGHSPO2 DROPED-ON 3L NCNO CHESTPAINC/O CONSTIPATIONVOMITED ONCE AMHAD FEVER AMPatient reports: chest pain, cough Review of SystemsConstitutional:Reports: generalized weakness. Skin:Denies: abrasion, bruising, contusion, diaphoresis, ecchymosis, itching, laceration, rash, swelling, other. Allergy/Immun:Denies: allergic reaction, anaphylaxis, hives, itching, rhinorrhea, sneezing, other. Eyes:Denies: redness, discharge, visual loss/blurred, itching, diplopia, eye pain, photophobia, swelling, other. Respiratory:Reports: productive cough (sputum), SOB. Cardiovascular:Reports: orthopnea. GI:Denies: abdominal pain, anorexia, constipation, diarrhea, dysphagia, GERD, hematemesis, hematochezia, hiatal hernia, melena, nausea, rectal pain, vomiting,other. Musculoskeletal:Denies: arthritis, extremity pain, extremity swelling, joint pain, joint swelling, lumbar pain, myalgias, neck pain, thoracic pain, other. Neuro:Reports: weakness. All systems rev neg: except as marked Objective GeneralVS/I O:Vital SignsDate Temp Pulse Resp B/P B/P Mean Pulse Ox ZiF239/25-06/09 98.4-100.4 84-108 14-27 101-175/58-99 74-128 88-100 Last Documented: Result Date Time Pulse Ox 96 06/09 1700 B/P 137/77 06/09 1700 B/P Mean 101 06/09 1700 Pulse 98 06/09 1700 Resp 19 06/09 1700 O2 Delivery High flow nasal cannula 06/09 1600 O2 Flow Rate 5.492558 06/09 1600 Temp 98.4 06/09 1600 FiO2 70 06/06 0215 24 hour I O ending at 0700: 06/09 0700 06/08 1900 Intake Total 1178.00 Output Total 350 Balance 828.00 Intake, IV 938.00 Intake, Oral 240 Number 2 Bowel Movements Number Voids 2 Output, Urine 350 Patient Weight Weight (lb): 190Weight (oz): 0.62Weight (kg): 86.200 Medications:Active Meds + DC'd Last 24 HrsLinezolid 300 ML Q12HR IV Metoprolol Succinate 50 MG BID PO Cefepime HCl 1 GM Q8H IV Sodium Chloride 100 MLCefepime HCl 1 GM Q12H IV (DC) Sodium Chloride 100 MLAlbuterol/Ipratropium 3 ML RTQ6H INH Albuterol/Ipratropium 3 ML RTQ2H PRN PRN INH Piperacillin Sod/Tazobactam Sod 3.375 GM Q8H IV (DC) Sodium Chloride 100 MLBisacodyl 10 MG DAILY PRN PRN PO Heparin Sodium 5,000 UNIT Q12HR SUBQ Carvedilol 12.5 MG BID@0900,2100 PO (DC) Amlodipine Besylate 5 MG DAILY PO Hydralazine HCl 10 MG Q6H PRN PRN IV Sodium Bicarbonate 75 ML .[id number] IV (CKD) Sodium Chloride 1,000 MLMetoclopramide HCl 10 MG Q8H IV Sodium Chloride 10 ML ASDIR PRN IV Pantoprazole Sodium 40 MG DAILY IV Promethazine HCl 25 MG Q8H PRN PRN IM Diphenhydramine HCl 25 MG Q6H PRN PRN PO Albuterol/Ipratropium 3 ML RTQ4H PRN PRN INH (DC) Azithromycin 500 MG Q24H IV Sodium Chloride 250 MLBenzonatate 100 MG Q6H PRN PRN PO Aspirin 81 MG DAILY PO Dextrose/Water 125 ML ASDIR PRN IV Dextrose/Water 250 ML ASDIR PRN IV Glucagon 1 MG ASDIR PRN IM Insulin Glargine 10 UNIT Q12HR SUBQ Al Hydrox/Mg Hydrox/Simethicone 30 ML Q4H PRN PRN PO Docusate Sodium 100 MG BID PRN PRN PO Ergocalciferol 50,000 INTL.UNITS Q7D PO (CKD) Hydrocodone Bitart/Acetaminophen 1 TAB Q6H PRN PRN PO Insulin Human Lispro 0 AC HS SUBQ Lactulose 20 GM Q6H PRN PRN PO Mupirocin 1 APPLIC BID NASAL Ondansetron HCl 4 MG Q4H PRN PRN IV Potassium Chloride 40 MEQ DAILY PRN PRN PO Ticagrelor 90 MG BID PO Zolpidem Tartrate 5 MG BEDTIME PRN PRN PO Acetaminophen 650 MG Q6H PRN PRN PO Atropine Sulfate 0.5 MG ASDIR PRN IV Atorvastatin Calcium 80 MG DAILY 1700 PO (r) Morphine Sulfate 2 MG Q3H PRN PRN IV Physical ExamGeneral appearance: lethargic, alert, awake, orientedHead/Eyes: atraumatic, EOMINeck: non-tender, supple/no meningismusCardiovascular: normal heart sounds, regular rate rhythmRespiratory: crackles, decreased breath sounds, shortness of breathAbdomen: soft, no distentionNeuro/VACUUM FILTER OPERATOR: alert, oriented x 3 ResultsFindings/Data:Laboratory Tests 06/09/19444:[Embedded Image Not Available]Laboratory Tests 06/09 06/09 06/09 06/08 1122 0729 [id number] Chemistry Sodium (134 - 147 mEq/L) 143 Potassium (3.4 - 5.0 mEq/L) 4.2 Chloride (100 - 108 mEq/L) 109 H Carbon Dioxide (21 - 33 mEq/L) 27 Anion Gap (0 - 20) 11 BUN (7 - 18 mg/dL) 37 H Creatinine (0.6 - 1.3 mg/dL) 2.1 H Glomerular Filtr Rate (90 - 95) 39.7 L Glucose (70 - 110 mg/dL) 100 POC Glucose (70 - 110 MG/DL) 125 H 132 H 126 H Calcium (8.0 - 10.5 mg/dL) 8.0 Phosphorus (2.5 - 4.9 mg/dL) 3.4 Magnesium (1.8 - 2.4 mg/dL) 2.70 H Laboratory Tests 06/09 445 Hematology WBC (4.5 - 11.0 x10 3/uL) 8.39 RBC (4.00 - 5.60 x10 6/uL) 3.38 L Hgb (12.5 - 16.9 g/dL) 9.0 L Hct (37.5 - 50.7 %) 28.5 L MCV (81.0 - 99.0 fL) 84.3 MCH (27.0 - 33.0 pg) 26.6 L MCHC (33.0 - 37.0 g/dL) 31.6 L RDW (11.5 - 14.5 %) 13.7 Plt Count (150 - 400 x10 3/uL) 370 MPV (7.0 - 9.0 fL) 10.1 H Neut % (Auto) (56.0 - 77.0 %) 70.6 Lymph % (Auto) (14.0 - 32.0 %) 17.6 Highland % (Auto) (4.8 - 9.0 %) 10.4 H Eos % (Auto) (0.3 - 3.7 %) 0.7 Baso % (Auto) (0.0 - 2.0 %) 0.1 Neut # (Auto) (2.0 - 7.6 x10 3/uL) 5.92 Lymph # (Auto) (1.0 - 3.8 x10 3/uL) 1.48 [place]land # (Auto) (0.1 - 0.8 x10 3/uL) 0.87 H Eos # (Auto) (0.0 - 0.2 x10 3/uL) 0.06 Baso # (Auto) (0.0 - 0.2 x10 3/uL) 0.01 Abs Immat Gran (auto) (0.00 - 0.03 x10 3/uL) 0.05 H Add Manual Diff NO Immature Gran % (0.0 - 2.0 %) 0.6 Nucleated RBC % (0 - 0 %) 0.0 Nucleated RBCs # (Man) (0.0 - 0.1 x10 3/uL) 0.00 Laboratory Tests 06/09 1130 Immunology IEP Tqvg-8-Gdwlpazdud RVP Comment Laboratory Tests 06/09 1130 Serology Adenovirus (PCR) (Negative) Negative Bordetella holmesii PCR (Negative) Negative B. pertussis DNA (PCR) (Negative) Negative B.parapertussis DNA PCR (Negative) Negative Human Metapneumovir PCR (Negative) Negative Influenza A (H1) PCR (Negative) Negative Influenza A (H3) PCR (Negative) Negative Influenza Type A (PCR) (Negative) Negative Influenza Type B (PCR) (Negative) Negative Parainfluenza 1 (PCR) (Negative) Negative Parainfluenza 2 (PCR) (Negative) Negative Parainfluenza 3 (PCR) (Negative) Negative Parainfluenza 4 (PCR) (Negative) Negative RSV Alpha (Negative) Negative RSV Beta (Negative) Negative Rhinovirus (PCR) (Negative) Negative Diagnosis, Assessment PlanHospital course to date:1. ACUTE CORONARY SYNDROME - S/P PCI TO MID CIRCUMFLEX .LAD , ON ASA ,BRILANTA ,METOPROLOL,, PLANS FOR STAGED PCT TO RCA LATER/WILL HOLD STATIN FOR MYELGIA AND ELEVATED CK FOR NOW 2,SUBACUTE CVA - NEURO FU 3.HYPOXIA DUE TO PULMO EDEMA -STARTED LASIX 4..HCAP -ON CEFIPIME /ZYVOX ,ID FU 5.BRENDA - ON LASIX ,EXPECTED TO INCREASE , MONITOR ,HOLD IVF FOR NOW ,NEPHROLOGY EVALUATION 6.DM -UNCONCONTROLED -HBA1C 9.1 -ON LANTUS ,HUMOLOG 7.PAD 8.CONSTIPATION -ADD DULCOLUX DVT/GI PROPHYLAXIS at 1733 RPT #:[id number] OF REPORTPRProgress Ymcs7480-97-49H15:32:00G.[id number] le for patient bgcnEOUNQQTXATSKBC1609-28-28K78:34:11 [facility] 2019-06-09 12:15:00 [id number]:15:00 H [facility] ([facility]ENTERCardiology Progress NoteREPORT#:[id number] REPORT STATUS: SignedDATE:06/09/19 TIME: 1215 PATIENT: DUSTY FRANCOIS UNIT #: [id number]#: [id number] [address] [birth year] AGE: 58 SEX: M ATTEND: Kyung Bedoya AUTHOR: Nicole Shay NP * ALL edits or amendments must be made on the electronic/computer document * SubjectiveChief Complaint:reports nausea this amComments:denies chest pain or SOB Objective GeneralVS/I O:Laboratory Tests 06/09/19 0445:[Embedded Image Not Available] 06/08/19 0445:[Embedded Image Not Available]Current Medications Sig/Jean Carlos Start time LastMedication Dose Route Stop Time Status AdminLinezolid 300 ML Q12HR 06/09 2100 AC IV 06/16 2059Cefepime HCl 1 GM Q8H 06/09 1115 AC 07odium Chloride 100 ML IV 06/16 1200 1200Cefepime HCl 1 GM Q12H 06/09 1045 DCSodium Chloride 100 ML IV 06/16 1044Albuterol/Ipratro 3 ML RTQ6H 06/08 2100 AC 06/09pium INH 07/08 2059 0845Albuterol/Ipratro 3 ML RTQ2H PRN PRN 06/08 1845 AC 06/08pium INH 07/08 1844 1843Piperacillin Sod/ 3.375 GM Q8H 06/08 1500 DC 06/09Tazobactam Sod IV 06/15 1459 0844Sodium Chloride 100 MLBisacodyl 10 MG DAILY PRN PRN 06/08 1015 AC PO 07/08 1014Heparin Sodium 5,000 UNIT Q12HR 06/07 1300 AC 06/09 SUBQ 07/07 2059 0842Carvedilol 12.5 MG BID@0900,2100 06/06 2100 AC 06/09 PO 07/06 2059 0843Amlodipine 5 MG DAILY 06/06 2000 AC 06/09Besylate PO 07/06 1959 0843Hydralazine HCl 10 MG Q6H PRN PRN 06/06 2000 AC 06/09 IV 07/06 1959 0841Sodium 75 ML .[id number] 06/06 1715 CKD 06/08BicarbonateSodium Chloride 1,000 ML IV 07/06 171 205Metoclopramide 10 MG Q8H 06/06 1230 AC 06/09HCl IV 07/06 1229 1209Sodium Chloride 10 ML ASDIR PRN 06/06 0430 AC IV 07/06 0429Pantoprazole 40 MG DAILY 06/06 0429 AC odium IV 07/06 042 0845Promethazine HCl 25 MG Q8H PRN PRN 06/06 0030 AC 06/08 IM 07/06 0029 0748Diphenhydramine 25 MG Q6H PRN PRN 06/05 1945 AC 06/05HCl PO 07/05 194 1956Albuterol/Ipratro 3 ML RTQ4H PRN PRN 06/05 1630 DC 06/05pium INH 07/05 1629 2307Azithromycin 500 MG Q24H 06/05 1630 AC 06/08Sodium Chloride 250 ML IV 06/10 1629 1548Benzonatate 100 MG Q6H PRN PRN 06/05 1630 AC 06/05 PO 07/05 1629 2159Aspirin 81 MG DAILY 06/05 0900 AC 06/09 PO 07/05 0859 0843Dextrose/Water 125 ML ASDIR PRN 06/05 0815 AC IV 07/05 0814Dextrose/Water 250 ML ASDIR PRN 06/05 0815 AC IV 07/05 0814Glucagon 1 MG ASDIR PRN 06/05 0815 AC IM 07/05 0814Insulin Glargine 10 UNIT Q12HR 06/04 2103 AC 06/09 SUBQ 07/04 2102 0842Al Hydrox/Mg 30 ML Q4H PRN PRN 06/04 2100 ACHydrox/Simethicone PO 07/04 2059Docusate Sodium 100 MG BID PRN PRN 06/04 2100 AC 06/08 PO 07/04 2059 0848Ergocalciferol 50,000 INTL.UNITS Q7D 06/04 2100 CKD 06/04 PO 07/04Hydrocodone 1 TAB Q6H PRN PRN 06/04 2100 ACBitart/Acetaminophen PO 07/04 2059Insulin Human 0 AC HS 06/04 2100 AC 06/07Lispro SUBQ 07/04 2059 1910Lactulose 20 GM Q6H PRN PRN 06/04 2100 AC 06/08 PO 07/04 2059 0847Mupirocin 1 APPLIC BID 06/04 2100 AC 06/09 NASAL 06/09 2059 1011Ondansetron HCl 4 MG Q4H PRN PRN 06/04 2100 AC 06/07 IV 07/04 2059 0635Potassium 40 MEQ DAILY PRN PRN 06/04 2100 ACChloride PO 07/04 2059Ticagrelor 90 MG BID 06/04 2100 AC 06/09 PO 07/04 2059 0843Zolpidem Tartrate 5 MG BEDTIME PRN PRN 06/04 2100 AC 06/08 PO 07/04Acetaminophen 650 MG Q6H PRN PRN 06/04 1415 AC 06/08 PO 07/04 1414 2356Atropine Sulfate 0.5 MG ASDIR PRN 06/04 1415 AC IV 07/04 1414Atorvastatin 80 MG DAILY 1700 06/04 0415 DA 06/05Calcium PO 07/04 0414 1806Morphine Sulfate 2 MG Q3H PRN PRN 06/04 0415 AC IV 06/18 0414 24 hour I O ending at 0700: 06/09 0700 06/08 1900 Intake Total 1178.00 Output Total 350 Balance 828.00 Intake, IV 938.00 Intake, Oral 240 Number 2 Bowel Movements Number Voids 2 Output, Urine 350 Vital Signs: Date Time Temp Pulse Resp B/P B/P Pulse O2 O2 Flow FiO2 Mean Ox Delivery Rate 06/09 1400 100 18 96 06/09 1300 100 18 142/80 105 97 06/09 1200 37.4 100 20 155/84 107 98 High flow 5.681814 nasal cannula 06/09 1200 101 18 155/84 113 96 06/09 1100 99 20 134/76 99 98 06/09 1009 99 22 135/84 103 97 06/09 0845 95 High flow 7.352949 nasal cannula 06/09 0800 High flow 5.055947 nasal cannula 06/09 0800 37.7 106 22 175/93 120 98 High flow 5.972512 nasal cannula 06/09 0700 108 27 168/91 122 92 06/09 0600 104 23 168/90 122 95 06/09 0500 104 21 169/91 123 88 06/09 0432 98 19 135/97 112 90 06/09 0400 37.3 89 15 146/78 106 99 06/09 0300 84 15 120/72 90 100 06/09 0200 85 15 122/74 94 97 06/09 0100 84 14 109/66 82 99 06/09 0000 38.0 90 17 110/67 84 97 06/08 2301 96 20 101/58 74 92 06/08 2212 95 06/08 2200 104 25 157/83 113 06/08 2107 107 21 174/99 128 95 06/08 2046 94 Nasal 3.317798 cannula 06/08 2000 37.6 104 24 153/84 113 92 06/08 1953 3.218453 06/08 1913 103 22 159/91 117 93 06/08 1800 99 24 153/88 115 97 06/08 1700 101 21 148/86 111 93 06/08 1600 37.3 99 21 158/86 115 98 Patient Weight Weight (lb): 190Weight (oz): 0.62Weight (kg): 86.200 Physical ExamGeneral appearance: alert, awake, oriented, no acute distressHead/Eyes: atraumatic, normocephalicENT: moist mucosal membranesNeck: non-tender, supple/no meningismus, no JVD, no lymphadenopathy, no masses or swellingCardiovascular: CV assessment: regular rate and rhythm, normal heart soundsRespiratory: clear to auscultation, no distressAbdomen: soft, non-tender, normal bowel soundsGenitourinary: no bladder distentionUpper extremity: UE assessment: no clubbing, no cyanosisLower extremity: LE assessment: no clubbing, no cyanosis, no edemaMusculoskeletal: full range of motionNeuro/VACUUM FILTER OPERATOR: alert, oriented X 3Skin: dry, intactPsychiatry: normal affect ResultsRadiology data:Recent Impressions:RADIOLOGY - XR CHEST 1 V 06/08 1557 Report Impression - Status: SIGNED Entered: 06/08/2019 1632 IMPRESSION:Residual diffuse right pulmonary infiltrate with improvement over thelast 2 days.Coalescing opacity within the left lower lobe, density increased overthe last 2 days.Bilateral pleural effusions. SL: LS-HImpression By: AlenaLS1 - Karsten Rodrigez M.D.RADIOLOGY - XR ABDOMEN 1V (KUB) 06/08 1557 Report Impression - Status: SIGNED Entered: 06/08/2019 1637 IMPRESSION:1. No evidence of constipation.2. Unremarkable gas pattern.3. Well formed fecal material noted in the upper abdomen on the CTscan of 06/06/2019 has cleared. SL:01Impression By: Joel Lim M.D. Diagnosis, Assessment Plan Free Text DxA P NotesFree Text DxA P Notes:This is a 58-year-old male with history of peripheral arterial disease and hypertension, who presents with the syncopal episode. The patient ruled in for non-ST elevation myocardial infarction. 1. Dyspnealow grade fever notedvenous dopplers negative- VQ scan to r/o PEPer Pulmonary 2. Non-ST elevation myocardial infarction. s/p PCI of thrombotic occlusion of the mid RCA, and mid LADcontinue optimal medical therapy- brilinta, asa, statin, bbEcho: EF 45-50% pt remains tachycardia- will change coreg to metoprolol succinate 50mg bid 3. Hypertensionoptimize meds to control bpprn medications available 4. Subacute CVAper Neurologycarotid dopplers negativemonitor for arrhythmiavenous dopplers negative 5. BRENDA/CKDper Nephrologydiuresis as needed for Nephrology 6. PNAID consulted 7. DM at 1529 RPT #:[id number] OF REPORTPRProgress Siqu5638-00-48Z22:15:00G.[id number] le for patient sndiTCADYPYJIPEVLP7544-13-38C73:29:42 [facility] 2019-06-09 12:15:00 [id number]:15:00 [facility] ([facility])Cardiology Progress NoteREPORT#:[id number] REPORT STATUS: SignedDATE:06/09/19 TIME: 1215 PATIENT: DUSTY FRANCOIS UNIT #: [id number]#: [id number] [address] [birth year] AGE: 58 SEX: M ATTEND: Kyung Bedoya [facility] AUTHOR: Nicole Shay NP * ALL edits or amendments must be made on the electronic/computer document * SubjectiveChief Complaint:reports nausea this amComments:denies chest pain or SOB Objective GeneralVS/I O:Laboratory Tests 06/09/19 0445:[Embedded Image Not Available] 06/08/19 0445:[Embedded Image Not Available]Current Medications Sig/Jean Carlos Start time LastMedication Dose Route Stop Time Status AdminLinezolid 300 ML Q12HR 06/09 2100 AC IV 06/16 2059Cefepime HCl 1 GM Q8H 06/09 1115 AC 07/26Sodium Chloride 100 ML IV 06/16 1200 1200Cefepime HCl 1 GM Q12H 06/09 1045 DCSodium Chloride 100 ML IV 06/16 1044Albuterol/Ipratro 3 ML RTQ6H 06/08 2100 AC 06/09pium INH 07/08 205 0845Albuterol/Ipratro 3 ML RTQ2H PRN PRN 06/08 1845 AC 06/08pium INH 07/08 1844 1843Piperacillin Sod/ 3.375 GM Q8H 06/08 1500 DC 06/09Tazobactam Sod IV 06/15 1459 0844Sodium Chloride 100 MLBisacodyl 10 MG DAILY PRN PRN 06/08 1015 AC PO 07/08 1014Heparin Sodium 5,000 UNIT Q12HR 06/07 1300 AC 06/09 SUBQ 07/07 2059 0842Carvedilol 12.5 MG BID@0900,2100 06/06 2100 AC 06/09 PO 07/06 2059 0843Amlodipine 5 MG DAILY 06/06 2000 AC 06/09Besylate PO 07/06 1959 0843Hydralazine HCl 10 MG Q6H PRN PRN 06/06 2000 AC 06/09 IV 07/06 1959 0841Sodium 75 ML .E01S22P 06/06 1715 CKD 06/08BicarbonateSodium Chloride 1,000 ML IV 07/06 1714 2054Metoclopramide 10 MG Q8H 06/06 1230 AC 06/09HCl IV 07/06 1229 1209Sodium Chloride 10 ML ASDIR PRN 06/06 0430 AC IV 07/06 0429Pantoprazole 40 MG DAILY 06/06 0429 AC 07/26Sodium IV 07/06 0428 0845Promethazine HCl 25 MG Q8H PRN PRN 06/06 0030 AC 06/08 IM 07/06 0029 0748Diphenhydramine 25 MG Q6H PRN PRN 06/05 1945 AC 06/05HCl PO 07/05 194 1956Albuterol/Ipratro 3 ML RTQ4H PRN PRN 06/05 1630 DC 06/05pium INH 07/05 1629 2307Azithromycin 500 MG Q24H 06/05 1630 AC 06/08Sodium Chloride 250 ML IV 06/10 1629 1548Benzonatate 100 MG Q6H PRN PRN 06/05 1630 AC 06/05 PO 07/05 1629 2159Aspirin 81 MG DAILY 06/05 0900 AC 06/09 PO 07/05 0859 0843Dextrose/Water 125 ML ASDIR PRN 06/05 0815 AC IV 07/05 0814Dextrose/Water 250 ML ASDIR PRN 06/05 0815 AC IV 07/05 0814Glucagon 1 MG ASDIR PRN 06/05 0815 AC IM 07/05 0814Insulin Glargine 10 UNIT Q12HR 06/04 2103 AC 06/09 SUBQ 07/04 2102 0842Al Hydrox/Mg 30 ML Q4H PRN PRN 06/04 2100 ACHydrox/Simethicone PO 07/04 2059Docusate Sodium 100 MG BID PRN PRN 06/04 2100 AC 06/08 PO 07/04 2059 0848Ergocalciferol 50,000 INTL.UNITS Q7D 06/04 2100 CKD 06/04 PO 07/04 2059 2216Hydrocodone 1 TAB Q6H PRN PRN 06/04 2100 ACBitart/Acetaminophen PO 07/04 2059Insulin Human 0 AC HS 06/04 2100 AC 06/07Lispro SUBQ 07/04 2059 1910Lactulose 20 GM Q6H PRN PRN 06/04 2100 AC 06/08 PO 07/04 2059 0847Mupirocin 1 APPLIC BID 06/04 2100 AC 06/09 NASAL 06/09 2059 1011Ondansetron HCl 4 MG Q4H PRN PRN 06/04 2100 AC 06/07 IV 07/04 2059 0635Potassium 40 MEQ DAILY PRN PRN 06/04 2100 ACChloride PO 07/04 2059Ticagrelor 90 MG BID 06/04 2100 AC 06/09 PO 07/04 2059 0843Zolpidem Tartrate 5 MG BEDTIME PRN PRN 06/04 2100 AC 06/08 PO 07/04 2059 2050Acetaminophen 650 MG Q6H PRN PRN 06/04 1415 AC 06/08 PO 07/04 141 2356Atropine Sulfate 0.5 MG ASDIR PRN 06/04 1415 AC IV 07/04 1414Atorvastatin 80 MG DAILY 1700 06/04 0415 DA 06/05Calcium PO 07/04 041 1806Morphine Sulfate 2 MG Q3H PRN PRN 06/04 0415 AC IV 06/18 0414 24 hour I O ending at 0700: 06/09 0700 06/08 1900 Intake Total 1178.00 Output Total 350 Balance 828.00 Intake, IV 938.00 Intake, Oral 240 Number 2 Bowel Movements Number Voids 2 Output, Urine 350 Vital Signs: Date Time Temp Pulse Resp B/P B/P Pulse O2 O2 Flow FiO2 Mean Ox Delivery Rate 06/09 1400 100 18 96 06/09 1300 100 18 142/80 105 97 06/09 1200 37.4 100 20 155/84 107 98 High flow 5.462846 nasal cannula 06/09 1200 101 18 155/84 113 96 06/09 1100 99 20 134/76 99 98 06/09 1009 99 22 135/84 103 97 06/09 0845 95 High flow 7.700274 nasal cannula 06/09 0800 High flow 5.213440 nasal cannula 06/09 0800 37.7 106 22 175/93 120 98 High flow 5.643712 nasal cannula 06/09 0700 108 27 168/91 122 92 06/09 0600 104 23 168/90 122 95 06/09 0500 104 21 169/91 123 88 06/09 0432 98 19 135/97 112 90 06/09 0400 37.3 89 15 146/78 106 99 06/09 0300 84 15 120/72 90 100 06/09 0200 85 15 122/74 94 97 06/09 0100 84 14 109/66 82 99 06/09 0000 38.0 90 17 110/67 84 97 06/08 2301 96 20 101/58 74 92 06/08 2212 95 06/08 2200 104 25 157/83 113 06/08 2107 107 21 174/99 128 95 06/08 2046 94 Nasal 3.147604 cannula 06/08 2000 37.6 104 24 153/84 113 92 06/08 1953 3.178379 06/08 1913 103 22 159/91 117 93 06/08 1800 99 24 153/88 115 97 06/08 1700 101 21 148/86 111 93 06/08 1600 37.3 99 21 158/86 115 98 Patient Weight Weight (lb): 190Weight (oz): 0.62Weight (kg): 86.200 Physical ExamGeneral appearance: alert, awake, oriented, no acute distressHead/Eyes: atraumatic, normocephalicENT: moist mucosal membranesNeck: non-tender, supple/no meningismus, no JVD, no lymphadenopathy, no masses or swellingCardiovascular: CV assessment: regular rate and rhythm, normal heart soundsRespiratory: clear to auscultation, no distressAbdomen: soft, non-tender, normal bowel soundsGenitourinary: no bladder distentionUpper extremity: UE assessment: no clubbing, no cyanosisLower extremity: LE assessment: no clubbing, no cyanosis, no edemaMusculoskeletal: full range of motionNeuro/VACUUM FILTER OPERATOR: alert, oriented X 3Skin: dry, intactPsychiatry: normal affect ResultsRadiology data:Recent Impressions:RADIOLOGY - XR CHEST 1 V 06/08 1557 Report Impression - Status: SIGNED Entered: 06/08/2019 1632 IMPRESSION:Residual diffuse right pulmonary infiltrate with improvement over thelast 2 days.Coalescing opacity within the left lower lobe, density increased overthe last 2 days.Bilateral pleural effusions. SL: LS-HImpression By: AlenaLS1 - Karsten Rodrigez M.D.RADIOLOGY - XR ABDOMEN 1V (KUB) 06/08 1557 Report Impression - Status: SIGNED Entered: 06/08/2019 1637 IMPRESSION:1. No evidence of constipation.2. Unremarkable gas pattern.3. Well formed fecal material noted in the upper abdomen on the CTscan of 06/06/2019 has cleared. SL:01Impression By: Joel - Aftab Lim M.D. Diagnosis, Assessment Plan Free Text DxA P NotesFree Text DxA P Notes:This is a 58-year-old male with history of peripheral arterial disease and hypertension, who presents with the syncopal episode. The patient ruled in for non-ST elevation myocardial infarction. 1. Dyspnealow grade fever notedvenous dopplers negative- VQ scan to r/o PEPer Pulmonary 2. Non-ST elevation myocardial infarction. s/p PCI of thrombotic occlusion of the mid RCA, and mid LADcontinue optimal medical therapy- brilinta, asa, statin, bbEcho: EF 45-50% pt remains tachycardia- will change coreg to metoprolol succinate 50mg bid 3. Hypertensionoptimize meds to control bpprn medications available 4. Subacute CVAper Neurologycarotid dopplers negativemonitor for arrhythmiavenous dopplers negative 5. BRENDA/CKDper Nephrologydiuresis as needed for Nephrology 6. PNAID consulted 7. DM at 1529 at 1246 RPT #:[id number] OF REPORTPRProgress Aaix7400-21-28F10:15:00G.[id number] le for patient iahuUUNPSNIRQPKUMY4735-42-08T74:46:24 [facility] 2019-06-09 10:45:00 [id number]:45:00 [facility] ([facility])Neurology Progress NoteREPORT#:[id number] REPORT STATUS: SignedDATE:06/09/19 TIME: 1045 PATIENT: DUSTY FRANCOIS UNIT #: [id number]#: [id number] [address] [birth year] AGE: 58 SEX: M ATTEND: Kyung Bedoya [facility] AUTHOR: Marbella Haley MD * ALL edits or amendments must be made on the electronic/computer document * SubjectiveHPI:emesis, nauseaneuro non focal Objective Physical ExamVS:Last Documented: Result Date Time Pulse Ox 98 06/09 0800 B/P 175/93 06/09 0800 B/P Mean 120 06/09 0800 O2 Delivery High flow nasal cannula 06/09 800 O2 Flow Rate 5.165863 06/09 0800 Temp 37.7 06/09 08 Pulse 106 06/09 0800 Resp 22 06/09 0800 FiO2 70 06/06 0215 Patient Weight Weight (lb): 190Weight (oz): 0.62Weight (kg): 86.200 Medications:Current Home MedicationsERGOCALCIFEROL (VITAMIN D2) 50,000 UNITS PO Q7D HYDROcodone/APAP (NORCO 10/325) 1 TAB PO Q6H PRN PRN PAIN ROSUVASTATIN (CRESTOR) 40 MG PO BEDTIME INSULIN DETEMIR (LEVEMIR) 10 UNITS SUBQ Q12HR METOPROLOL TARTRATE (LOPRESSOR) 25 MG PO DAILY LISINOPRIL (ZESTRIL) 20 MG PO DAILY Active Meds + DC'd Last 24 HrsLinezolid 300 ML Q12HR IV Cefepime HCl 1 GM Q12H IV (UNV) Sodium Chloride 100 MLAlbuterol/Ipratropium 3 ML RTQ6H INH Albuterol/Ipratropium 3 ML RTQ2H PRN PRN INH Piperacillin Sod/Tazobactam Sod 3.375 GM Q8H IV (DCr) Sodium Chloride 100 MLBisacodyl 10 MG DAILY PRN PRN PO Heparin Sodium 5,000 UNIT Q12HR SUBQ Carvedilol 12.5 MG BID@0900,2100 PO Amlodipine Besylate 5 MG DAILY PO Hydralazine HCl 10 MG Q6H PRN PRN IV Sodium Bicarbonate 75 ML .I33E90O IV (CKD) Sodium Chloride 1,000 MLMetoclopramide HCl 10 MG Q8H IV Sodium Chloride 10 ML ASDIR PRN IV Pantoprazole Sodium 40 MG DAILY IV Promethazine HCl 25 MG Q8H PRN PRN IM Diphenhydramine HCl 25 MG Q6H PRN PRN PO Albuterol/Ipratropium 3 ML RTQ4H PRN PRN INH (DC) Azithromycin 500 MG Q24H IV Sodium Chloride 250 MLBenzonatate 100 MG Q6H PRN PRN PO Ceftriaxone Sodium 1,000 MG Q24H IV (DC) Sodium Chloride 100 MLAspirin 81 MG DAILY PO Dextrose/Water 125 ML ASDIR PRN IV Dextrose/Water 250 ML ASDIR PRN IV Glucagon 1 MG ASDIR PRN IM Insulin Glargine 10 UNIT Q12HR SUBQ Al Hydrox/Mg Hydrox/Simethicone 30 ML Q4H PRN PRN PO Docusate Sodium 100 MG BID PRN PRN PO Ergocalciferol 50,000 INTL.UNITS Q7D PO (CKD) Hydrocodone Bitart/Acetaminophen 1 TAB Q6H PRN PRN PO Insulin Human Lispro 0 AC HS SUBQ Lactulose 20 GM Q6H PRN PRN PO Mupirocin 1 APPLIC BID NASAL Ondansetron HCl 4 MG Q4H PRN PRN IV Potassium Chloride 40 MEQ DAILY PRN PRN PO Ticagrelor 90 MG BID PO Zolpidem Tartrate 5 MG BEDTIME PRN PRN PO Acetaminophen 650 MG Q6H PRN PRN PO Atropine Sulfate 0.5 MG ASDIR PRN IV Atorvastatin Calcium 80 MG DAILY 1700 PO (DA) Morphine Sulfate 2 MG Q3H PRN PRN IV General appearance: alert, awakeHead/Eyes: atraumaticENT: moist mucosal membranesNeck: full range of motion, non-tender, supple/no meningismusCardiovascular: regular rate and rhythmRespiratory: aerating well, clear to auscultationAbdomen: non-tenderExtremities: moves allMusculoskeletal: normal inspectionNeuro/VACUUM FILTER OPERATOR: alert, oriented X 4, normal speech, EOMI, PERRL, CN II-XII intact, reflexes equal bilat, normal reflexes, no motor deficits, no sensory deficits, no cerebellar deficits Diagnosis, Assessment PlanProblem List/A P: 1. Syncope 2. CVA (cerebrovascular accident) Additional comments:patient to be on asa and statinawaiting completion of cardiac workup if arrythmia initaite anticoagulationcarotids are reasurring cardiac eval and workup in progresson appropriate preventative therapy from neuro perspective at 1046 RPT #:[id number] OF REPORTPRProgress Xuko1196-87-15O70:45:00G.[id number] anabelle for patient mrazTVWKPNWOMTPOQA6340-32-55F09:46:49 [facility] 2019-06-09 10:44:00 [id number]:44:00 [facility] ([facility])Clinical NoteREPORT#:[id number] REPORT STATUS: SignedDATE:06/09/19 TIME: 1044 PATIENT: DUSTY FRANCOIS UNIT #: [id number]#: [id number] [address] [birth year] AGE: 58 SEX: M ATTEND: Kyung Bedoya MDADM AUTHOR: France Lee MD * ALL edits or amendments must be made on the electronic/computer document * Clinical NoteNote:pt seen examined and dictated. at 1044 RPT #:[id number] OF REPORTCLClinical dhar1203-66-39V16:44:00G.[id number] le for patient wdepYOXVBXDHCKZNEC4819-57-65E54:45:18 [facility] 2019-06-09 10:43:00 [id number]:43:0007 [place] [address] PATIENT NAME: DUSTY FRANCOIS ADMIT DATE: 06/04/19ACCOUNT NO: [id number] ROOM NO: [facility] AGE: 58 REPORT TYPE: CONSULTATION REPORT SEX: M ADMITTING PHYSICIAN:Kyung Bedoya MD ATTENDING PHYSICIAN:Kyung Bedoya MD CONSULTATION DATE: 06/09/2019 CONSULTING PHYSICIAN: France Lee MD INFECTIOUS DISEASE CONSULTATION REASON FOR CONSULTATION:1. Persistent fever.2. Nosocomial pneumonia.3. The patient with diabetes mellitus, admitted with syncope, found to haveacute coronary syndrome, status post PCI, evaluation and recommendations. CHIEF COMPLAINT: Fevers and cough. HISTORY OF PRESENT ILLNESS: The patient is a 58-year-old very pleasantAfrican-Marshallese gentleman with past medical history significant for diabetesmellitus type 2, hypertension, and hyperlipidemia, presented to [facility] after he suffered a syncopal episode. He had left shoulder pain andshortness of breath. He came into the Emergency Room, ruled in for non-STelevation MN, underwent PCI to left circumflex and LAD on 06/04/2019. He wasdiagnosed with community-acquired pneumonia, started on Rocephin andazithromycin. He started having fevers up to 100.4 degrees Fahrenheit and so,his medications were changed from Rocephin to Zosyn. Infectious disease wasconsulted today. At the time of my consultation, the patient is sitting at theside of the bed, in CCU. Continues to have shortness of breath and increasingoxygen requirement. Does have cough. Denies any cough prior to admission [facility]. Denies any recent viral syndromes. Denies any sick contacts. Does report that his blood sugar is not well controlled. Vaccine gifford, thepatient is updated to pneumococcal vaccine. Did have one episode of vomitingafter he got admitted to the hospital. Had some nausea. Does have increasingshortness of breath. Reports that he had bilateral lower extremity severe bothankle swelling for at least 3 months prior to admission to the hospital. Reports that the swelling of the legs has markedly improved since he got thecardiac catheterization. PAST MEDICAL HISTORY: Significant for diabetes mellitus type 2, hypertension,hyperlipidemia, and peripheral vascular disease. PAST SURGICAL HISTORY: Angioplasties and stenting of the lower extremities. SOCIAL HISTORY: Ex-smoker. 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 PATIENT NAME: DUSTY FRANCOIS [id number] [address] PATIENT NAME: DUSTY FRANCOIS ADMIT DATE: 06/04/19ACCOUNT NO: [id number] ROOM NO: [facility] AGE: 58 REPORT TYPE: CONSULTATION REPORT SEX: M ADMITTING PHYSICIAN:Kyung Bedoya MD ATTENDING PHYSICIAN:Kyung Bedoya MD ALLERGIES: NO KNOWN DRUG ALLERGIES. MEDICATIONS: The patient is on Zithromax 500 mg IV q. 24 hours from 06/05/2019,Rocephin from 06/05/2019 to 06/08/2019, currently on Zosyn 3.375 gm IV q. 8hours for the last 24 hours. FAMILY HISTORY: Noncontributory. REVIEW OF SYSTEMS: Twelve-point review of systems obtained and except mentionedin the HPI, rest of them is negative. PHYSICAL EXAMINATION:GENERAL: The patient is a well-built and well-nourished, very pleasantmiddle-aged -Marshallese gentleman.VITAL SIGNS: T-max of 100.4, T-current of 99.9; heart rate 106; alhexukvyycc04; and blood pressure 175/93.HEENT: Head, atraumatic and normocephalic. Pupils equal, round, and reactiveto light. Conjunctivae are slightly pale.NECK: Has no JVD.LUNGS: Bronchial breath sounds bilaterally. Decreased air entry at bases.HEART: Tachycardic, regular rate and rhythm.ABDOMEN: Scaphoid. Good bowel sounds.EXTREMITIES: No edema. No rashes.NEUROLOGICAL: Completely normal.SKIN: Has no petechiae. LABORATORY DATA: WBC of 8.39 decreased from 11, hemoglobin 9, hematocrit 28,and platelets of 370. Sodium 143, potassium 4.2, chloride 109, bicarbonate 27,BUN of 37, and creatinine 2.1. Procalcitonin was elevated at 3.42 on 06/06/2019decreased to 0.77 yesterday. Chest x-ray is showing diffuse right pulmonaryinfiltrates improved in the last 2 days, left lower lobe density increased overthe 2 days, bilateral pleural effusions. ASSESSMENT AND PLAN: A 58-year-old with diabetes mellitus, hypertension, andhyperlipidemia, admitted with a syncopal episode, ruled in for acute non-STelevation myocardial infarction, status post cardiac catheterization andpercutaneous coronary intervention. Also presented with community-acquiredpneumonia, treated with Rocephin and azithromycin, now has increasing fever andshortness of breath, concerns are nosocomial hospital-acquired pneumonia. Recommend to change antibiotics to Zyvox 600 mg IV q. 12 hours due to thepatient's acute renal failure. Avoid vancomycin and cefepime 1 gm IV q. 12hours. Discontinue Zosyn. The patient has been on azithromycin for atypicalbacterial coverage for 5 days. We would recommend to discontinue azithromycin PATIENT NAME: DUSTY FRANCOIS [id number] [place], [place] [address] PATIENT NAME: DUSTY FRANCOIS ADMIT DATE: 06/04/19ACCOUNT NO: [id number] ROOM NO: 6606 AGE: 58 REPORT TYPE: CONSULTATION REPORT SEX: M ADMITTING PHYSICIAN:Kyung Bedoya MD ATTENDING PHYSICIAN:Kyung Bedoya MD as well. Obtain sputum cultures. Obtain viral respiratory pathogen panel. Based on the clinical response, we will change antibiotics accordingly. Dictated By: France Lee MD WT: CON:G.RAMON/JARETT/NTSDD: 06/09/2019 10:43:34DT: 06/09/2019 11:49:33Conf#: [id number]/DID#: [id number] Authenticated by France Lee MD On 06/14/2019 07:15:36 PM at 1915 PATIENT NAME: DUSTY FRANCOIS :49:00G.[facility] [id number] for patient uvagLUERQTUPPMCTUT4469-95-36M19:16:09 [facility] 2019-06-09 08:00:00 [id number]:00:00 H [facility] ([facility])Pulmonology Progress NoteREPORT#:[id number] REPORT STATUS: SignedDATE:06/09/19 TIME: 0800 PATIENT: DUSTY FRANCOIS UNIT #: [id number]#: [id number] [address] [birth year] AGE: 58 SEX: M ATTEND: Kyung Bedoya MDADM AUTHOR: Koko Chung MEDICATION ADMINISTRATION PROFESSIONAL * ALL edits or amendments must be made on the electronic/computer document * SubjectiveChief Complaint:He desat yesterday, He is on 8 liter NC.c/o Nausea and vomiting.Had a BM last night.Had a low grade fever.Less SOB with exertion.Denies any N/V/D.Denies any Cp, chills, SOBBP and HR stable. Review of Systems ROSConstitutional:fatigue, generalized weakness. Respiratory:Reports: pneumonia. Denies: SORIANO (dyspnea on exertion), pleuritic pain, SOB, wheezing. Cardiovascular:Denies: edema, orthopnea. GI:Reports: abdominal pain, constipation, nausea. Denies: GERD, hiatal hernia. :Denies: flank pain, frequency, hematuria. Musculoskeletal:Denies: extremity swelling, joint pain. Endocrine:Denies: polydipsia, polyphagia. Neuro:Denies: dizziness, focal weakness, lightheaded. Objective Physical ExamVS/I O:Last Documented: Result Date Time Pulse Ox 92 06/09 700 B/P 168/91 06/09 700 B/P Mean 122 06/09 700 Pulse 108 06/09 700 Resp 27 06/09 700 Temp 37.3 06/09 0400 O2 Delivery Nasal cannula 06/08 2046 O2 Flow Rate 3.339021 06/08 2046 FiO2 70 06/06 0215 24 hour I O ending at 0700: 06/09 0700 06/08 1900 Intake Total 1178.00 Output Total 350 Balance 828.00 Intake, IV 938.00 Intake, Oral 240 Number 2 Bowel Movements Number Voids 2 Output, Urine 350 Patient Weight Weight (lb): 190Weight (oz): 0.62Weight (kg): 86.200 Medications:Active Meds + DC'd Last 24 HrsAlbuterol/Ipratropium 3 ML RTQ6H INH Albuterol/Ipratropium 3 ML RTQ2H PRN PRN INH Piperacillin Sod/Tazobactam Sod 3.375 GM Q8H IV Sodium Chloride 100 MLBisacodyl 10 MG DAILY PRN PRN PO Heparin Sodium 5,000 UNIT Q12HR SUBQ Carvedilol 12.5 MG BID@0900,2100 PO Amlodipine Besylate 5 MG DAILY PO Hydralazine HCl 10 MG Q6H PRN PRN IV Sodium Bicarbonate 75 ML .[id number] IV (CKD) Sodium Chloride 1,000 MLMetoclopramide HCl 10 MG Q8H IV Sodium Chloride 10 ML ASDIR PRN IV Pantoprazole Sodium 40 MG DAILY IV Promethazine HCl 25 MG Q8H PRN PRN IM Diphenhydramine HCl 25 MG Q6H PRN PRN PO Albuterol/Ipratropium 3 ML RTQ4H PRN PRN INH (DC) Azithromycin 500 MG Q24H IV Sodium Chloride 250 MLBenzonatate 100 MG Q6H PRN PRN PO Ceftriaxone Sodium 1,000 MG Q24H IV (DC) Sodium Chloride 100 MLAspirin 81 MG DAILY PO Dextrose/Water 125 ML ASDIR PRN IV Dextrose/Water 250 ML ASDIR PRN IV Glucagon 1 MG ASDIR PRN IM Insulin Glargine 10 UNIT Q12HR SUBQ Al Hydrox/Mg Hydrox/Simethicone 30 ML Q4H PRN PRN PO Docusate Sodium 100 MG BID PRN PRN PO Ergocalciferol 50,000 INTL.UNITS Q7D PO (CKD) Hydrocodone Bitart/Acetaminophen 1 TAB Q6H PRN PRN PO Insulin Human Lispro 0 AC HS SUBQ Lactulose 20 GM Q6H PRN PRN PO Mupirocin 1 APPLIC BID NASAL Ondansetron HCl 4 MG Q4H PRN PRN IV Potassium Chloride 40 MEQ DAILY PRN PRN PO Ticagrelor 90 MG BID PO Zolpidem Tartrate 5 MG BEDTIME PRN PRN PO Acetaminophen 650 MG Q6H PRN PRN PO Atropine Sulfate 0.5 MG ASDIR PRN IV Atorvastatin Calcium 80 MG DAILY 1700 PO (DA) Morphine Sulfate 2 MG Q3H PRN PRN IV General appearance: awake, orientedHead/eyes: PERRLACardiovascular: normal heart sounds, normal S1/Y9Smbvbekoynm/chest: on oxygen, symmetric expansion, no distressAbdomen: soft, non-tenderGenitourinary: no wallace, no bladder distentionMusculoskeletal: no muscle spasmNeuro/VACUUM FILTER OPERATOR: alert, oriented X 3, CNII-XII intactSkin: warm, dry, intact ResultsFindings/Data:24 hours ending at 0700 06/09 0700 06/08 2300 06/08 1500 Intake Total 1178.00 Output Total 350 Balance 828.00 Intake, IV 938.00 Intake, Oral 240 Number 2 Bowel Movements Number Voids 2 Output, Urine 350 24 Hour I O Total 06/09 0700 Intake Total 1178.00 Output Total 350 Balance 828.00 Laboratory Tests 06/09/19 0445:[Embedded Image Not Available] 06/08/19 0445:[Embedded Image Not Available]Laboratory Tests 06/09 06/08 06/08 06/08 06/08 0445 2058 1642 1620 1133 Chemistry Sodium (134 - 147 mEq/L) 143 Potassium (3.4 - 5.0 mEq/L) 4.2 Chloride (100 - 108 mEq/L) 109 H Carbon Dioxide (21 - 33 mEq/L) 27 Anion Gap (0 - 20) 11 BUN (7 - 18 mg/dL) 37 H Creatinine (0.6 - 1.3 mg/dL) 2.1 H Glomerular Filtr Rate (90 - 95) 39.7 L Glucose (70 - 110 mg/dL) 100 POC Glucose (70 - 110 MG/DL) 126 H 139 H 144 H Calcium (8.0 - 10.5 mg/dL) 8.0 Phosphorus (2.5 - 4.9 mg/dL) 3.4 Magnesium (1.8 - 2.4 mg/dL) 2.70 H Procalcitonin (0.00 - 0.05 ng/mL) 0.77 H Laboratory Tests 06/09 445 Hematology WBC (4.5 - 11.0 x10 3/uL) 8.39 RBC (4.00 - 5.60 x10 6/uL) 3.38 L Hgb (12.5 - 16.9 g/dL) 9.0 L Hct (37.5 - 50.7 %) 28.5 L MCV (81.0 - 99.0 fL) 84.3 MCH (27.0 - 33.0 pg) 26.6 L MCHC (33.0 - 37.0 g/dL) 31.6 L RDW (11.5 - 14.5 %) 13.7 Plt Count (150 - 400 x10 3/uL) 370 MPV (7.0 - 9.0 fL) 10.1 H Neut % (Auto) (56.0 - 77.0 %) 70.6 Lymph % (Auto) (14.0 - 32.0 %) 17.6 Highland % (Auto) (4.8 - 9.0 %) 10.4 H Eos % (Auto) (0.3 - 3.7 %) 0.7 Baso % (Auto) (0.0 - 2.0 %) 0.1 Neut # (Auto) (2.0 - 7.6 x10 3/uL) 5.92 Lymph # (Auto) (1.0 - 3.8 x10 3/uL) 1.48 Highland # (Auto) (0.1 - 0.8 x10 3/uL) 0.87 H Eos # (Auto) (0.0 - 0.2 x10 3/uL) 0.06 Baso # (Auto) (0.0 - 0.2 x10 3/uL) 0.01 Abs Immat Gran (auto) (0.00 - 0.03 x10 3/uL) 0.05 H Add Manual Diff NO Immature Gran % (0.0 - 2.0 %) 0.6 Nucleated RBC % (0 - 0 %) 0.0 Nucleated RBCs # (Man) (0.0 - 0.1 x10 3/uL) 0.00 Radiology data:Recent Impressions:RADIOLOGY - XR CHEST 1 V 06/08 1557 Report Impression - Status: SIGNED Entered: 06/08/2019 1632 IMPRESSION:Residual diffuse right pulmonary infiltrate with improvement over thelast 2 days.Coalescing opacity within the left lower lobe, density increased overthe last 2 days.Bilateral pleural effusions. SL: LS-HImpression By: [email or web address] - Karsten Rodrigez M.D.RADIOLOGY - XR ABDOMEN 1V (KUB) 06/08 1557 Report Impression - Status: SIGNED Entered: 06/08/2019 1637 IMPRESSION:1. No evidence of constipation.2. Unremarkable gas pattern.3. Well formed fecal material noted in the upper abdomen on the CTscan of 06/06/2019 has cleared. SL:01Impression By: Joel - Aftab Lim M.D. Results: labs reviewed, vital signs stable, current med profile rev'd Treatment Prophylaxis Treatment ProphylaxisOxygen: nasal cannula Diagnosis, Assessment PlanHospital course to date:Assessment and Plan: - Acute hypoxic respiratory failure secondary to pneumonia.- Multifocal PNA, right and Left lobe.- Hypoxia , rule out PE.- Shortness of breath and hypoxia secondary to pneumonia and fluid overload.- Fluid overload.- Fecal Material on Right Colon.- Acute kidney injury secondary to meds.- Hyperkalemia.- Subacute infarction/cerebrovascular accident.- History of hypertension.- History of diabetes type 2.- History of hyperlipidemia.- Metabolic acidosis. - Venous doppler study negative. PLAN: CCU.V/Q scan today to rule out PE.Continue Laxatives for Constipation.Continue IV ABX for PNA.Aggressive pulmonary toilet including incentive spirometry, nebulizer treatment,and O2 support.Cough medication.Need of sleep study to rule out sleep apnea.Monitor the kidney function.Statin and aspirin per neurologist for the cerebrovascular accident.Follow labs and replace as needed.SCD for DVT prophylaxis.Glycemic control, Accu-Chek a.c. and at bedtime, sliding scale, diabetic diet.Monitor. Code status: full codePlan discussed with: patient, family, admitting physician, consultants, nurse at 0809 RPT #:[id number] OF REPORTPRProgress [id number]:00:00G.[id number] le for patient [id number]:09:53 [facility] 2019-06-09 08:00:00 [id number]:00:00 [facility] ([facility])Pulmonology Progress NoteREPORT#:[id number] REPORT STATUS: SignedDATE:06/09/19 TIME: 0800 PATIENT: DUSTY FRANCOIS UNIT #: [id number]#: [id number] [place] [facility] [place] [birth year] AGE: 58 SEX: M ATTEND: Kyung Bedoya [facility] AUTHOR: Koko Chung MEDICATION ADMINISTRATION PROFESSIONAL * ALL edits or amendments must be made on the electronic/computer document * Koko Chung 06/09/19 0800:SubjectiveChief Complaint:He desat yesterday, He is on 8 liter NC.c/o Nausea and vomiting.Had a BM last night.Had a low grade fever.Less SOB with exertion.Denies any N/V/D.Denies any Cp, chills, SOBBP and HR stable. Review of Systems ROSConstitutional:fatigue, generalized weakness. Respiratory:Reports: pneumonia. Denies: SORIANO (dyspnea on exertion), pleuritic pain, SOB, wheezing. Cardiovascular:Denies: edema, orthopnea. GI:Reports: abdominal pain, constipation, nausea. Denies: GERD, hiatal hernia. :Denies: flank pain, frequency, hematuria. Musculoskeletal:Denies: extremity swelling, joint pain. Endocrine:Denies: polydipsia, polyphagia. Neuro:Denies: dizziness, focal weakness, lightheaded. Objective Physical ExamVS/I O:Last Documented: Result Date Time Pulse Ox 92 06/09 700 B/P 168/91 06/09 700 B/P Mean 122 06/09 700 Pulse 108 06/09 700 Resp 27 06/09 700 Temp 37.3 06/09 0400 O2 Delivery Nasal cannula 06/08 2046 O2 Flow Rate 3.161583 06/08 204 FiO2 70 06/06 0215 24 hour I O ending at 0700: 06/09 1900 Intake Total 1178.00 Output Total 350 Balance 828.00 Intake, IV 938.00 Intake, Oral 240 Number 2 Bowel Movements Number Voids 2 Output, Urine 350 Patient Weight Weight (lb): 190Weight (oz): 0.62Weight (kg): 86.200 Medications:Active Meds + DC'd Last 24 HrsAlbuterol/Ipratropium 3 ML RTQ6H INH Albuterol/Ipratropium 3 ML RTQ2H PRN PRN INH Piperacillin Sod/Tazobactam Sod 3.375 GM Q8H IV Sodium Chloride 100 MLBisacodyl 10 MG DAILY PRN PRN PO Heparin Sodium 5,000 UNIT Q12HR SUBQ Carvedilol 12.5 MG BID@0900,2100 PO Amlodipine Besylate 5 MG DAILY PO Hydralazine HCl 10 MG Q6H PRN PRN IV Sodium Bicarbonate 75 ML .[id number] IV (CKD) Sodium Chloride 1,000 MLMetoclopramide HCl 10 MG Q8H IV Sodium Chloride 10 ML ASDIR PRN IV Pantoprazole Sodium 40 MG DAILY IV Promethazine HCl 25 MG Q8H PRN PRN IM Diphenhydramine HCl 25 MG Q6H PRN PRN PO Albuterol/Ipratropium 3 ML RTQ4H PRN PRN INH (DC) Azithromycin 500 MG Q24H IV Sodium Chloride 250 MLBenzonatate 100 MG Q6H PRN PRN PO Ceftriaxone Sodium 1,000 MG Q24H IV (DC) Sodium Chloride 100 MLAspirin 81 MG DAILY PO Dextrose/Water 125 ML ASDIR PRN IV Dextrose/Water 250 ML ASDIR PRN IV Glucagon 1 MG ASDIR PRN IM Insulin Glargine 10 UNIT Q12HR SUBQ Al Hydrox/Mg Hydrox/Simethicone 30 ML Q4H PRN PRN PO Docusate Sodium 100 MG BID PRN PRN PO Ergocalciferol 50,000 INTL.UNITS Q7D PO (CKD) Hydrocodone Bitart/Acetaminophen 1 TAB Q6H PRN PRN PO Insulin Human Lispro 0 AC HS SUBQ Lactulose 20 GM Q6H PRN PRN PO Mupirocin 1 APPLIC BID NASAL Ondansetron HCl 4 MG Q4H PRN PRN IV Potassium Chloride 40 MEQ DAILY PRN PRN PO Ticagrelor 90 MG BID PO Zolpidem Tartrate 5 MG BEDTIME PRN PRN PO Acetaminophen 650 MG Q6H PRN PRN PO Atropine Sulfate 0.5 MG ASDIR PRN IV Atorvastatin Calcium 80 MG DAILY 1700 PO (DA) Morphine Sulfate 2 MG Q3H PRN PRN IV General appearance: awake, orientedHead/eyes: PERRLACardiovascular: normal heart sounds, normal S1/A8Lrcqhvxnkxx/chest: on oxygen, symmetric expansion, no distressAbdomen: soft, non-tenderGenitourinary: no wallace, no bladder distentionMusculoskeletal: no muscle spasmNeuro/VACUUM FILTER OPERATOR: alert, oriented X 3, CNII-XII intactSkin: warm, dry, intact ResultsFindings/Data:24 hours ending at 0700 06/09 0700 06/08 2300 06/08 1500 Intake Total 1178.00 Output Total 350 Balance 828.00 Intake, IV 938.00 Intake, Oral 240 Number 2 Bowel Movements Number Voids 2 Output, Urine 350 24 Hour I O Total 06/09 07 Intake Total 1178.00 Output Total 350 Balance 828.00 Laboratory Tests 06/09/19 0445:[Embedded Image Not Available] 06/08/19 0445:[Embedded Image Not Available]Laboratory Tests 06/09 06/08 06/08 06/08 06/08 0445 2058 1642 1620 1133 Chemistry Sodium (134 - 147 mEq/L) 143 Potassium (3.4 - 5.0 mEq/L) 4.2 Chloride (100 - 108 mEq/L) 109 H Carbon Dioxide (21 - 33 mEq/L) 27 Anion Gap (0 - 20) 11 BUN (7 - 18 mg/dL) 37 H Creatinine (0.6 - 1.3 mg/dL) 2.1 H Glomerular Filtr Rate (90 - 95) 39.7 L Glucose (70 - 110 mg/dL) 100 POC Glucose (70 - 110 MG/DL) 126 H 139 H 144 H Calcium (8.0 - 10.5 mg/dL) 8.0 Phosphorus (2.5 - 4.9 mg/dL) 3.4 Magnesium (1.8 - 2.4 mg/dL) 2.70 H Procalcitonin (0.00 - 0.05 ng/mL) 0.77 H Laboratory Tests 06/09 0445 Hematology WBC (4.5 - 11.0 x10 3/uL) 8.39 RBC (4.00 - 5.60 x10 6/uL) 3.38 L Hgb (12.5 - 16.9 g/dL) 9.0 L Hct (37.5 - 50.7 %) 28.5 L MCV (81.0 - 99.0 fL) 84.3 MCH (27.0 - 33.0 pg) 26.6 L MCHC (33.0 - 37.0 g/dL) 31.6 L RDW (11.5 - 14.5 %) 13.7 Plt Count (150 - 400 x10 3/uL) 370 MPV (7.0 - 9.0 fL) 10.1 H Neut % (Auto) (56.0 - 77.0 %) 70.6 Lymph % (Auto) (14.0 - 32.0 %) 17.6 Highland % (Auto) (4.8 - 9.0 %) 10.4 H Eos % (Auto) (0.3 - 3.7 %) 0.7 Baso % (Auto) (0.0 - 2.0 %) 0.1 Neut # (Auto) (2.0 - 7.6 x10 3/uL) 5.92 Lymph # (Auto) (1.0 - 3.8 x10 3/uL) 1.48 Highland # (Auto) (0.1 - 0.8 x10 3/uL) 0.87 H Eos # (Auto) (0.0 - 0.2 x10 3/uL) 0.06 Baso # (Auto) (0.0 - 0.2 x10 3/uL) 0.01 Abs Immat Gran (auto) (0.00 - 0.03 x10 3/uL) 0.05 H Add Manual Diff NO Immature Gran % (0.0 - 2.0 %) 0.6 Nucleated RBC % (0 - 0 %) 0.0 Nucleated RBCs # (Man) (0.0 - 0.1 x10 3/uL) 0.00 Radiology data:Recent Impressions:RADIOLOGY - XR CHEST 1 V 06/08 1557 Report Impression - Status: SIGNED Entered: 06/08/2019 1632 IMPRESSION:Residual diffuse right pulmonary infiltrate with improvement over thelast 2 days.Coalescing opacity within the left lower lobe, density increased overthe last 2 days.Bilateral pleural effusions. SL: LS-HImpression By: [email or web address] - Karsten Rodrigez M.D.RADIOLOGY - XR ABDOMEN 1V (KUB) 06/08 1557 Report Impression - Status: SIGNED Entered: 06/08/2019 1637 IMPRESSION:1. No evidence of constipation.2. Unremarkable gas pattern.3. Well formed fecal material noted in the upper abdomen on the CTscan of 06/06/2019 has cleared. SL:01Impression By: Rachael.EDITH - Aftab Lim M.D. Results: labs reviewed, vital signs stable, current med profile rev'd Treatment Prophylaxis Treatment ProphylaxisOxygen: nasal cannula Diagnosis, Assessment PlanHospital course to date:Assessment and Plan: - Acute hypoxic respiratory failure secondary to pneumonia.- Multifocal PNA, right and Left lobe.- Hypoxia , rule out PE.- Shortness of breath and hypoxia secondary to pneumonia and fluid overload.- Fluid overload.- Fecal Material on Right Colon.- Acute kidney injury secondary to meds.- Hyperkalemia.- Subacute infarction/cerebrovascular accident.- History of hypertension.- History of diabetes type 2.- History of hyperlipidemia.- Metabolic acidosis. - Venous doppler study negative. PLAN: CCU.V/Q scan today to rule out PE.Continue Laxatives for Constipation.Continue IV ABX for PNA.Aggressive pulmonary toilet including incentive spirometry, nebulizer treatment,and O2 support.Cough medication.Need of sleep study to rule out sleep apnea.Monitor the kidney function.Statin and aspirin per neurologist for the cerebrovascular accident.Follow labs and replace as needed.SCD for DVT prophylaxis.Glycemic control, Accu-Chek a.c. and at bedtime, sliding scale, diabetic diet.Monitor. Code status: full codePlan discussed with: patient, family, admitting physician, consultants, nurse Antoine Lee 06/09/19 2208:Attestations Midlevel/Physician AttestationPhysician attestation:Agree with the findings and plan as documented by MEDICATION ADMINISTRATION PROFESSIONAL: as abovereviewedpt seen and examineddw RN at 0809 at 2208 RPT #:[id number] OF REPORTPRProgress [id number]:00:00G.[id number] for patient [id number]:08:47 [facility] 2019-06-09 07:06:00 [id number]:06:00 H [facility] ([facility])Nephrology Progress NoteREPORT#:[id number] REPORT STATUS: SignedDATE:06/09/19 TIME: 705 PATIENT: DUSTY FRANCOIS UNIT #: [id number]#: [id number] [address] [birth year] AGE: 58 SEX: M ATTEND: Kyung Bedoya AUTHOR: Gideon Teran MD * ALL edits or amendments must be made on the electronic/computer document * SubjectiveChief Complaint:Syncope/NSTEMI/AKIPatient reports:Yes: complaints. Comments:Patient seen and evaluated, discussed with care team, HPI no change from initial, feels some better Review of SystemsConstitutional:Yes fatigue, No chills, No feverSkin:No abrasion, No bruisingAllergy/Immun:No hives, No itchingEyes:No redness, No dischargeENT:No ear drainage, No ear ringingRespiratory:Yes non productive cough, Yes SOBCardiovascular:No palpitations Objective GeneralVS/I O:Vital Signs: Date Time Temp Pulse Resp B/P B/P Pulse O2 O2 Flow FiO2 Mean Ox Delivery Rate 06/09 0600 104 23 168/90 122 95 06/09 0500 104 21 169/91 123 88 06/09 0432 98 19 135/97 112 90 06/09 0400 37.3 89 15 146/78 106 99 06/09 0300 84 15 120/72 90 100 06/09 0200 85 15 122/74 94 97 06/09 0100 84 14 109/66 82 99 06/09 0000 38.0 90 17 110/67 84 97 06/08 2301 96 20 101/58 74 92 06/08 2212 95 06/08 2200 104 25 157/83 113 06/08 2107 107 21 174/99 128 95 06/08 2046 94 Nasal 3.595980 cannula 06/08 2000 37.6 104 24 153/84 113 92 06/08 1953 3.898596 06/08 1913 103 22 159/91 117 93 06/08 1800 99 24 153/88 115 97 06/08 1700 101 21 148/86 111 93 06/08 1600 37.3 99 21 158/86 115 98 06/08 1500 94 21 154/86 113 97 06/08 1400 97 22 154/85 114 97 06/08 1300 106 21 150/83 110 98 06/08 1200 97 21 157/90 117 98 06/08 1100 98 21 130/78 99 96 06/08 1000 110 22 138/62 89 99 06/08 0900 115 21 186/94 132 100 06/08 0800 Nasal 3.916074 cannula 06/08 0800 37.4 107 23 169/93 125 100 24 hour I O ending at 0700: 06/09 0706/08 1900 Intake Total 1178.00 Output Total 350 Balance 828.00 Intake, IV 938.00 Intake, Oral 240 Number 2 Bowel Movements Number Voids 2 Output, Urine 350 MedicationsActive Meds + DC'd Last 24 HrsAlbuterol/Ipratropium 3 ML RTQ6H INH Albuterol/Ipratropium 3 ML RTQ2H PRN PRN INH Piperacillin Sod/Tazobactam Sod 3.375 GM Q8H IV Sodium Chloride 100 MLBisacodyl 10 MG DAILY PRN PRN PO Heparin Sodium 5,000 UNIT Q12HR SUBQ Carvedilol 12.5 MG BID@0900,2100 PO Amlodipine Besylate 5 MG DAILY PO Hydralazine HCl 10 MG Q6H PRN PRN IV Sodium Bicarbonate 75 ML .[id number] IV (CKD) Sodium Chloride 1,000 MLMetoclopramide HCl 10 MG Q8H IV Sodium Chloride 10 ML ASDIR PRN IV Pantoprazole Sodium 40 MG DAILY IV Promethazine HCl 25 MG Q8H PRN PRN IM Diphenhydramine HCl 25 MG Q6H PRN PRN PO Albuterol/Ipratropium 3 ML RTQ4H PRN PRN INH (DC) Azithromycin 500 MG Q24H IV Sodium Chloride 250 MLBenzonatate 100 MG Q6H PRN PRN PO Ceftriaxone Sodium 1,000 MG Q24H IV (DC) Sodium Chloride 100 MLAspirin 81 MG DAILY PO Dextrose/Water 125 ML ASDIR PRN IV Dextrose/Water 250 ML ASDIR PRN IV Glucagon 1 MG ASDIR PRN IM Insulin Glargine 10 UNIT Q12HR SUBQ Al Hydrox/Mg Hydrox/Simethicone 30 ML Q4H PRN PRN PO Docusate Sodium 100 MG BID PRN PRN PO Ergocalciferol 50,000 INTL.UNITS Q7D PO (CKD) Hydrocodone Bitart/Acetaminophen 1 TAB Q6H PRN PRN PO Insulin Human Lispro 0 AC HS SUBQ Lactulose 20 GM Q6H PRN PRN PO Mupirocin 1 APPLIC BID NASAL Ondansetron HCl 4 MG Q4H PRN PRN IV Potassium Chloride 40 MEQ DAILY PRN PRN PO Ticagrelor 90 MG BID PO Zolpidem Tartrate 5 MG BEDTIME PRN PRN PO Acetaminophen 650 MG Q6H PRN PRN PO Atropine Sulfate 0.5 MG ASDIR PRN IV Atorvastatin Calcium 80 MG DAILY 1700 PO (DA) Morphine Sulfate 2 MG Q3H PRN PRN IV Physical ExamGeneral appearance: alert, no acute distressHead/eyes: atraumatic, normocephalicENT: moist mucous membranes, normal noseNeck: supple/no meningismusCardiovascular: normal heart sounds, no rubRespiratory: aerating well, no distressAbdomen: non-tender, softGenitourinary: no flank pain, no foleyExtremities: non-tender, no edemaMusculoskeletal: no tenderenessNeuro/VACUUM FILTER OPERATOR: alert, normal speechSkin: dry, intact ResultsFindings/Data:Laboratory Tests 06/09 2058 1642 1620 1133 Chemistry Sodium (134 - 147 mEq/L) 143 Potassium (3.4 - 5.0 mEq/L) 4.2 Chloride (100 - 108 mEq/L) 109 H Carbon Dioxide (21 - 33 mEq/L) 27 Anion Gap (0 - 20) 11 BUN (7 - 18 mg/dL) 37 H Creatinine (0.6 - 1.3 mg/dL) 2.1 H Glomerular Filtr Rate (90 - 95) 39.7 L Glucose (70 - 110 mg/dL) 100 POC Glucose (70 - 110 MG/DL) 126 H 139 H 144 H Calcium (8.0 - 10.5 mg/dL) 8.0 Phosphorus (2.5 - 4.9 mg/dL) 3.4 Magnesium (1.8 - 2.4 mg/dL) 2.70 H Procalcitonin (0.00 - 0.05 ng/mL) 0.77 H 06/08 07 Chemistry POC Glucose (70 - 110 MG/DL) 148 H Laboratory Tests 06/09 445 Hematology WBC (4.5 - 11.0 x10 3/uL) 8.39 RBC (4.00 - 5.60 x10 6/uL) 3.38 L Hgb (12.5 - 16.9 g/dL) 9.0 L Hct (37.5 - 50.7 %) 28.5 L MCV (81.0 - 99.0 fL) 84.3 MCH (27.0 - 33.0 pg) 26.6 L MCHC (33.0 - 37.0 g/dL) 31.6 L RDW (11.5 - 14.5 %) 13.7 Plt Count (150 - 400 x10 3/uL) 370 MPV (7.0 - 9.0 fL) 10.1 H Neut % (Auto) (56.0 - 77.0 %) 70.6 Lymph % (Auto) (14.0 - 32.0 %) 17.6 [place]land % (Auto) (4.8 - 9.0 %) 10.4 H Eos % (Auto) (0.3 - 3.7 %) 0.7 Baso % (Auto) (0.0 - 2.0 %) 0.1 Neut # (Auto) (2.0 - 7.6 x10 3/uL) 5.92 Lymph # (Auto) (1.0 - 3.8 x10 3/uL) 1.48 [place]land # (Auto) (0.1 - 0.8 x10 3/uL) 0.87 H Eos # (Auto) (0.0 - 0.2 x10 3/uL) 0.06 Baso # (Auto) (0.0 - 0.2 x10 3/uL) 0.01 Abs Immat Gran (auto) (0.00 - 0.03 x10 3/uL) 0.05 H Add Manual Diff NO Immature Gran % (0.0 - 2.0 %) 0.6 Nucleated RBC % (0 - 0 %) 0.0 Nucleated RBCs # (Man) (0.0 - 0.1 x10 3/uL) 0.00 Diagnosis, Assessment PlanFree Text A P:Patient seen and evaluated, discussed with care team, Images and laboratory reviewedHistory of HTN: metoprolol: Monitor BP closely and adjust medications as neededDM: insulin: Monitor BS closely and adjust medications as neededHLD: LipitorCAD s/p NSTEMI , s/p LHC and LAD/LCX PCI: ASA/TicagrelorPNA: Rocephin/AzithromaxSOB with elevated BNP, he has no LE edema, his SOB could be mainly related to his PNA, he is nauseated and eating, would hold off diuretcis if possibleAKI felisha related to CINHis baseline creat 1.2 in Sep 2018, eGFR 80 , felisha had some progression since then, check UA, urine P/creat ratio and renal USAcidosis: pH this AM 7.287/ Creat 3.6 stable, K WNL4.3, HCO3 22 better, renal US WNL7/ Creat better 2.6, electrolytes acceptable, HCO3 23, continue IVF06/09/19 Creat 2.1 better, HCO3 27, Hgb 9, WBC 8.39 at 0937 [facility] #:[id number] OF REPORTPRProgress [id number]:06:00G.[id number] le for patient [id number]:38:00 [facility] 2019-06-08 14:57:00 [id number]:57:00 H [facility] Prog. NoteREPORT#:[id number] REPORT STATUS: SignedDATE:06/08/19 TIME: 1457 PATIENT: DUSTY FRANCOIS UNIT #: [id number]#: [id number] [address] [birth year] AGE: 58 SEX: M ATTEND: Kyung Bedoya [facility] AUTHOR: Kyung Bedoya MD * ALL edits or amendments must be made on the electronic/computer document * SubjectiveChief Complaint:C/O FEVER COUGHSPO2 DROPED-ON 3L NC NO CHESTPAINC/O CONSTIPATIONVOMITED ONCE AM HAD FEVER AMPatient reports: chest pain, cough Review of SystemsConstitutional:Reports: generalized weakness. Skin:Denies: abrasion, bruising, contusion, diaphoresis, ecchymosis, itching, laceration, rash, swelling, other. Allergy/Immun:Denies: allergic reaction, anaphylaxis, hives, itching, rhinorrhea, sneezing, other. Eyes:Denies: redness, discharge, visual loss/blurred, itching, diplopia, eye pain, photophobia, swelling, other. Respiratory:Reports: productive cough (sputum), SOB. Cardiovascular:Reports: orthopnea. GI:Denies: abdominal pain, anorexia, constipation, diarrhea, dysphagia, GERD, hematemesis, hematochezia, hiatal hernia, melena, nausea, rectal pain, vomiting,other. Musculoskeletal:Denies: arthritis, extremity pain, extremity swelling, joint pain, joint swelling, lumbar pain, myalgias, neck pain, thoracic pain, other. Neuro:Reports: weakness. All systems rev neg: except as marked Objective GeneralVS/I O:Vital Signs Date Temp Pulse Resp B/P B/P Mean Pulse Ox FiO2 06/07-06/08 98.9-99.4 93-115 15-28 84-186/50-94 63-132 93-100 Last Documented: Result Date Time Pulse Ox 98 06/08 1300 B/P 150/83 06/08 1300 B/P Mean 110 06/08 1300 Pulse 106 06/08 1300 Resp 21 06/08 1300 O2 Delivery Nasal cannula 06/08 0800 O2 Flow Rate 3.759315 06/08 0800 Temp 99.4 06/08 0800 FiO2 70 06/06 0215 24 hour I O ending at 0700: 06/08 0700 06/07 1900 Intake Total 1429.00 Output Total 450 Balance 979.00 Intake, IV 709.00 Intake, Oral 720 Output, Urine 450 Patient 86.2 kg Weight Weight Bed scale Measurement Method Patient Weight Weight (lb): 190Weight (oz): 0.62Weight (kg): 86.200 Medications:Active Meds + DC'd Last 24 HrsPiperacillin Sod/Tazobactam Sod 3.375 GM Q8H IV (UNV) Sodium Chloride 100 MLBisacodyl 10 MG DAILY PRN PRN PO Heparin Sodium 5,000 UNIT Q12HR SUBQ Carvedilol 12.5 MG BID@0900,2100 PO Amlodipine Besylate 5 MG DAILY PO Hydralazine HCl 10 MG Q6H PRN PRN IV Sodium Bicarbonate 75 ML .[id number] IV (CKD) Sodium Chloride 1,000 MLMetoclopramide HCl 10 MG Q8H IV Sodium Chloride 10 ML ASDIR PRN IV Pantoprazole Sodium 40 MG DAILY IV Promethazine HCl 25 MG Q8H PRN PRN IM Diphenhydramine HCl 25 MG Q6H PRN PRN PO Albuterol/Ipratropium 3 ML RTQ4H PRN PRN INH Azithromycin 500 MG Q24H IV Sodium Chloride 250 MLBenzonatate 100 MG Q6H PRN PRN PO Ceftriaxone Sodium 1,000 MG Q24H IV (DCr) Sodium Chloride 100 MLAspirin 81 MG DAILY PO Dextrose/Water 125 ML ASDIR PRN IV Dextrose/Water 250 ML ASDIR PRN IV Glucagon 1 MG ASDIR PRN IM Insulin Glargine 10 UNIT Q12HR SUBQ Al Hydrox/Mg Hydrox/Simethicone 30 ML Q4H PRN PRN PO Docusate Sodium 100 MG BID PRN PRN PO Ergocalciferol 50,000 INTL.UNITS Q7D PO (CKD) Hydrocodone Bitart/Acetaminophen 1 TAB Q6H PRN PRN PO Insulin Human Lispro 0 AC HS SUBQ Lactulose 20 GM Q6H PRN PRN PO Mupirocin 1 APPLIC BID NASAL Ondansetron HCl 4 MG Q4H PRN PRN IV Potassium Chloride 40 MEQ DAILY PRN PRN PO Ticagrelor 90 MG BID PO Zolpidem Tartrate 5 MG BEDTIME PRN PRN PO Acetaminophen 650 MG Q6H PRN PRN PO Atropine Sulfate 0.5 MG ASDIR PRN IV Atorvastatin Calcium 80 MG DAILY 1700 PO (DA) Morphine Sulfate 2 MG Q3H PRN PRN IV Physical ExamGeneral appearance: alert, awake, orientedHead/Eyes: atraumatic, EOMINeck: non-tender, supple/no meningismusCardiovascular: normal heart sounds, regular rate rhythmRespiratory: crackles, decreased breath sounds, shortness of breathAbdomen: soft, no distentionNeuro/VACUUM FILTER OPERATOR: alert, oriented x 3 ResultsFindings/Data:Laboratory Tests 06/08/19 0445:[Embedded Image Not Available]Laboratory Tests 06/08 06/08 06/08 06/07 06/07 1133 0726 0445 1954 1612 Chemistry Sodium (134 - 147 mEq/L) 143 Potassium (3.4 - 5.0 mEq/L) 4.2 Chloride (100 - 108 mEq/L) 112 H Carbon Dioxide (21 - 33 mEq/L) 23 Anion Gap (0 - 20) 12 BUN (7 - 18 mg/dL) 50 H Creatinine (0.6 - 1.3 mg/dL) 2.6 H Glomerular Filtr Rate (90 - 95) 31.0 L Glucose (70 - 110 mg/dL) 116 H POC Glucose (70 - 110 MG/DL) 144 H 148 H 136 H 165 H Calcium (8.0 - 10.5 mg/dL) 8.3 Phosphorus (2.5 - 4.9 mg/dL) 3.2 Magnesium (1.8 - 2.4 mg/dL) 2.70 H Laboratory Tests 06/08 0445 Hematology WBC (4.5 - 11.0 x10 3/uL) 11.19 H RBC (4.00 - 5.60 x10 6/uL) 3.39 L Hgb (12.5 - 16.9 g/dL) 9.3 L Hct (37.5 - 50.7 %) 28.9 L MCV (81.0 - 99.0 fL) 85.3 MCH (27.0 - 33.0 pg) 27.4 MCHC (33.0 - 37.0 g/dL) 32.2 L RDW (11.5 - 14.5 %) 13.7 Plt Count (150 - 400 x10 3/uL) 379 MPV (7.0 - 9.0 fL) 10.0 H Neut % (Auto) (56.0 - 77.0 %) 75.5 Lymph % (Auto) (14.0 - 32.0 %) 14.7 Highland % (Auto) (4.8 - 9.0 %) 8.8 Eos % (Auto) (0.3 - 3.7 %) 0.2 L Baso % (Auto) (0.0 - 2.0 %) 0.2 Neut # (Auto) (2.0 - 7.6 x10 3/uL) 8.46 H Lymph # (Auto) (1.0 - 3.8 x10 3/uL) 1.64 Highland # (Auto) (0.1 - 0.8 x10 3/uL) 0.98 H Eos # (Auto) (0.0 - 0.2 x10 3/uL) 0.02 Baso # (Auto) (0.0 - 0.2 x10 3/uL) 0.02 Abs Immat Gran (auto) (0.00 - 0.03 x10 3/uL) 0.07 H Add Manual Diff NO Immature Gran % (0.0 - 2.0 %) 0.6 Nucleated RBC % (0 - 0 %) 0.0 Nucleated RBCs # (Man) (0.0 - 0.1 x10 3/uL) 0.00 Diagnosis, Assessment PlanHospital course to date:1. ACUTE CORONARY SYNDROME - S/P PCI TO MID CIRCUMFLEX .LAD , ON ASA ,BRILANTA ,METOPROLOL,, PLANS FOR STAGED PCT TO RCA LATER/WILL HOLD STATIN FOR MYELGIA AND ELEVATED CK FOR NOW 2,SUBACUTE CVA - NEURO FU 3.HYPOXIA DUE TO PULMO EDEMA -STARTED LASIX 4..PNA -CULTURES SEND -CHANGE AB TO ZOSYN 5.BRENDA - ON LASIX ,EXPECTED TO INCREASE , MONITOR ,HOLD IVF FOR NOW ,NEPHROLOGY EVALUATION 6.DM -UNCONCONTROLED -HBA1C 9.1 -ON LANTUS ,HUMOLOG 7.PAD 8.CONSTIPATION -ADD DULCOLUX DVT/GI PROPHYLAXIS at 1503 RPT #:[id number] OF REPORTPRProgress [id number]:57:00G.[id number] le for patient wwexJLJDINKUIQGFMD2676-84-45F25:04:08 HCACL 2019-06-08 11:54:00 [id number]:54:00 H [facility] ([facility])Pulmonology Progress NoteREPORT#:[id number] REPORT STATUS: SignedDATE:06/08/19 TIME: 1154 PATIENT: DUSTY FRANCOIS UNIT #: [id number]#: [id number] [address] [birth year] AGE: 58 SEX: M ATTEND: Kyung Bedoya AUTHOR: Koko Chung NP * ALL edits or amendments must be made on the electronic/computer document * SubjectiveChief Complaint:Patient is doing better.He is c/o constipation.On 3 liter NC and breathing is improved.Less SOB with exertion.Denies any N/V/D.Denies any Cp, fever, chills.BP and R stable. Review of Systems ROSConstitutional:fatigue, generalized weakness. Respiratory:Reports: SORIANO (dyspnea on exertion), SOB. Cardiovascular:Denies: edema, orthopnea. GI:Denies: abdominal pain, constipation, GERD, hiatal hernia. :Denies: flank pain, frequency, hematuria. Musculoskeletal:Denies: extremity swelling, joint pain. Endocrine:Denies: polydipsia, polyphagia. Neuro:Denies: dizziness, focal weakness, lightheaded. Objective Physical ExamVS/I O:Last Documented: Result Date Time Pulse Ox 96 06/08 1100 B/P 130/78 06/08 1100 B/P Mean 99 06/08 1100 Pulse 98 06/08 1100 Resp 21 06/08 1100 O2 Delivery Nasal cannula 06/08 08 O2 Flow Rate 3.581704 06/08 08 Temp 37.4 06/08 08 FiO2 70 06/06 0215 24 hour I O ending at 0700: 06/08 0700 06/07 1900 Intake Total 1429.00 Output Total 450 Balance 979.00 Intake, IV 709.00 Intake, Oral 720 Output, Urine 450 Patient 86.2 kg Weight Weight Bed scale Measurement Method Patient Weight Weight (lb): 190Weight (oz): 0.62Weight (kg): 86.200 Medications:Active Meds + DC'd Last 24 HrsBisacodyl 10 MG DAILY PRN PRN PO Heparin Sodium 5,000 UNIT Q12HR SUBQ Carvedilol 12.5 MG BID@0900,2100 PO Amlodipine Besylate 5 MG DAILY PO Hydralazine HCl 10 MG Q6H PRN PRN IV Sodium Bicarbonate 75 ML .[id number] IV (CKD) Sodium Chloride 1,000 MLMetoclopramide HCl 10 MG Q8H IV Sodium Chloride 10 ML ASDIR PRN IV Pantoprazole Sodium 40 MG DAILY IV Promethazine HCl 25 MG Q8H PRN PRN IM Diphenhydramine HCl 25 MG Q6H PRN PRN PO Albuterol/Ipratropium 3 ML RTQ4H PRN PRN INH Azithromycin 500 MG Q24H IV Sodium Chloride 250 MLBenzonatate 100 MG Q6H PRN PRN PO Ceftriaxone Sodium 1,000 MG Q24H IV Sodium Chloride 100 MLAspirin 81 MG DAILY PO Dextrose/Water 125 ML ASDIR PRN IV Dextrose/Water 250 ML ASDIR PRN IV Glucagon 1 MG ASDIR PRN IM Insulin Glargine 10 UNIT Q12HR SUBQ Al Hydrox/Mg Hydrox/Simethicone 30 ML Q4H PRN PRN PO Docusate Sodium 100 MG BID PRN PRN PO Ergocalciferol 50,000 INTL.UNITS Q7D PO (CKD) Hydrocodone Bitart/Acetaminophen 1 TAB Q6H PRN PRN PO Insulin Human Lispro 0 AC HS SUBQ Lactulose 20 GM Q6H PRN PRN PO Mupirocin 1 APPLIC BID NASAL Ondansetron HCl 4 MG Q4H PRN PRN IV Potassium Chloride 40 MEQ DAILY PRN PRN PO Ticagrelor 90 MG BID PO Zolpidem Tartrate 5 MG BEDTIME PRN PRN PO Acetaminophen 650 MG Q6H PRN PRN PO Atropine Sulfate 0.5 MG ASDIR PRN IV Atorvastatin Calcium 80 MG DAILY 1700 PO (DA) Morphine Sulfate 2 MG Q3H PRN PRN IV General appearance: awake, orientedHead/eyes: PERRLACardiovascular: normal heart sounds, normal S1/M0Vbxndcvawkv/chest: on oxygen, symmetric expansion, no distressAbdomen: soft, non-tenderGenitourinary: no wallace, no bladder distentionMusculoskeletal: no muscle spasmNeuro/VACUUM FILTER OPERATOR: alert, oriented X 3, CNII-XII intactSkin: warm, dry, intact ResultsFindings/Data:24 hours ending at 0700 06/08 0700 06/07 2300 06/07 1500 Intake Total 1429.00 Output Total 450 Balance 979.00 Intake, IV 709.00 Intake, Oral 720 Output, Urine 450 Patient 86.2 kg Weight Weight Bed scale Measurement Method 24 Hour I O Total 06/08 0700 Intake Total 1429.00 Output Total 450 Balance 979.00 Laboratory Tests 06/08/19 0445:[Embedded Image Not Available] 06/07/19 0657:[Embedded Image Not Available] 06/07/19 0450:[Embedded Image Not Available] 06/06/19 1618:[Embedded Image Not Available]Laboratory Tests 06/08 06/08 06/07 06/07 0726 0445 1954 1612 Chemistry Sodium (134 - 147 mEq/L) 143 Potassium (3.4 - 5.0 mEq/L) 4.2 Chloride (100 - 108 mEq/L) 112 H Carbon Dioxide (21 - 33 mEq/L) 23 Anion Gap (0 - 20) 12 BUN (7 - 18 mg/dL) 50 H Creatinine (0.6 - 1.3 mg/dL) 2.6 H Glomerular Filtr Rate (90 - 95) 31.0 L Glucose (70 - 110 mg/dL) 116 H POC Glucose (70 - 110 MG/DL) 148 H 136 H 165 H Calcium (8.0 - 10.5 mg/dL) 8.3 Phosphorus (2.5 - 4.9 mg/dL) 3.2 Magnesium (1.8 - 2.4 mg/dL) 2.70 H Laboratory Tests 06/08 0445 Hematology WBC (4.5 - 11.0 x10 3/uL) 11.19 H RBC (4.00 - 5.60 x10 6/uL) 3.39 L Hgb (12.5 - 16.9 g/dL) 9.3 L Hct (37.5 - 50.7 %) 28.9 L MCV (81.0 - 99.0 fL) 85.3 MCH (27.0 - 33.0 pg) 27.4 MCHC (33.0 - 37.0 g/dL) 32.2 L RDW (11.5 - 14.5 %) 13.7 Plt Count (150 - 400 x10 3/uL) 379 MPV (7.0 - 9.0 fL) 10.0 H Neut % (Auto) (56.0 - 77.0 %) 75.5 Lymph % (Auto) (14.0 - 32.0 %) 14.7 Highland % (Auto) (4.8 - 9.0 %) 8.8 Eos % (Auto) (0.3 - 3.7 %) 0.2 L Baso % (Auto) (0.0 - 2.0 %) 0.2 Neut # (Auto) (2.0 - 7.6 x10 3/uL) 8.46 H Lymph # (Auto) (1.0 - 3.8 x10 3/uL) 1.64 [place]land # (Auto) (0.1 - 0.8 x10 3/uL) 0.98 H Eos # (Auto) (0.0 - 0.2 x10 3/uL) 0.02 Baso # (Auto) (0.0 - 0.2 x10 3/uL) 0.02 Abs Immat Gran (auto) (0.00 - 0.03 x10 3/uL) 0.07 H Add Manual Diff NO Immature Gran % (0.0 - 2.0 %) 0.6 Nucleated RBC % (0 - 0 %) 0.0 Nucleated RBCs # (Man) (0.0 - 0.1 x10 3/uL) 0.00 Results: labs reviewed, vital signs stable, current med profile rev'd Treatment Prophylaxis Treatment ProphylaxisOxygen: nasal cannula Diagnosis, Assessment PlanHospital course to date:Assessment and Plan: - Acute hypoxic respiratory failure secondary to pneumonia.- Multifocal PNA, right and Left lobe.- Shortness of breath and hypoxia secondary to pneumonia and fluid overload.- Fluid overload.- Acute kidney injury secondary to meds.- Hyperkalemia.- Subacute infarction/cerebrovascular accident.- History of hypertension.- History of diabetes type 2.- History of hyperlipidemia.- Metabolic acidosis. PLAN: CCU.Laxatives for Constipation.Continue IV ABX for PNA.Aggressive pulmonary toilet including incentive spirometry, nebulizer treatment,and O2 support.Cough medication.Need of sleep study to rule out sleep apnea.Monitor the kidney function.Statin and aspirin per neurologist for the cerebrovascular accident.Follow labs and replace as needed.SCD for DVT prophylaxis.Glycemic control, Accu-Chek a.c. and at bedtime, sliding scale, diabetic diet.Monitor. Code status: full codePlan discussed with: patient, spouse/partner, admitting physician, consultants, nurse, special education case manager at 1214 RPT #:[id number] OF REPORTPRProgress [id number]:54:00G.[id number] anabelle for patient [id number]:15:00 HCACL 2019-06-08 11:54:00 [id number]:54:00 H [facility] ([facility])Pulmonology Progress NoteREPORT#:[id number] REPORT STATUS: SignedDATE:06/08/19 TIME: 1154 PATIENT: DUSTY FRANCOIS UNIT #: [id number]#: [id number] [address] [birth year] AGE: 58 SEX: M ATTEND: Kyung Bedoya [facility] AUTHOR: Koko Chung MEDICATION ADMINISTRATION PROFESSIONAL * ALL edits or amendments must be made on the electronic/computer document * Koko Chung 06/08/19 1154:SubjectiveChief Complaint:Patient is doing better.He is c/o constipation.On 3 liter NC and breathing is improved.Less SOB with exertion.Denies any N/V/D.Denies any Cp, fever, chills.BP and R stable. Review of Systems ROSConstitutional:fatigue, generalized weakness. Respiratory:Reports: SORIANO (dyspnea on exertion), SOB. Cardiovascular:Denies: edema, orthopnea. GI:Denies: abdominal pain, constipation, GERD, hiatal hernia. :Denies: flank pain, frequency, hematuria. Musculoskeletal:Denies: extremity swelling, joint pain. Endocrine:Denies: polydipsia, polyphagia. Neuro:Denies: dizziness, focal weakness, lightheaded. Objective Physical ExamVS/I O:Last Documented: Result Date Time Pulse Ox 96 06/08 1100 B/P 130/78 06/08 1100 B/P Mean 99 06/08 1100 Pulse 98 06/08 1100 Resp 21 06/08 1100 O2 Delivery Nasal cannula 06/08 0800 O2 Flow Rate 3.349453 06/08 0800 Temp 37.4 06/08 0800 FiO2 70 06/06 0215 24 hour I O ending at 0700: 06/08 0700 06/07 1900 Intake Total 1429.00 Output Total 450 Balance 979.00 Intake, IV 709.00 Intake, Oral 720 Output, Urine 450 Patient 86.2 kg Weight Weight Bed scale Measurement Method Patient Weight Weight (lb): 190Weight (oz): 0.62Weight (kg): 86.200 Medications:Active Meds + DC'd Last 24 HrsBisacodyl 10 MG DAILY PRN PRN PO Heparin Sodium 5,000 UNIT Q12HR SUBQ Carvedilol 12.5 MG BID@0900,2100 PO Amlodipine Besylate 5 MG DAILY PO Hydralazine HCl 10 MG Q6H PRN PRN IV Sodium Bicarbonate 75 ML .[id number] IV (CKD) Sodium Chloride 1,000 MLMetoclopramide HCl 10 MG Q8H IV Sodium Chloride 10 ML ASDIR PRN IV Pantoprazole Sodium 40 MG DAILY IV Promethazine HCl 25 MG Q8H PRN PRN IM Diphenhydramine HCl 25 MG Q6H PRN PRN PO Albuterol/Ipratropium 3 ML RTQ4H PRN PRN INH Azithromycin 500 MG Q24H IV Sodium Chloride 250 MLBenzonatate 100 MG Q6H PRN PRN PO Ceftriaxone Sodium 1,000 MG Q24H IV Sodium Chloride 100 MLAspirin 81 MG DAILY PO Dextrose/Water 125 ML ASDIR PRN IV Dextrose/Water 250 ML ASDIR PRN IV Glucagon 1 MG ASDIR PRN IM Insulin Glargine 10 UNIT Q12HR SUBQ Al Hydrox/Mg Hydrox/Simethicone 30 ML Q4H PRN PRN PO Docusate Sodium 100 MG BID PRN PRN PO Ergocalciferol 50,000 INTL.UNITS Q7D PO (CKD) Hydrocodone Bitart/Acetaminophen 1 TAB Q6H PRN PRN PO Insulin Human Lispro 0 AC HS SUBQ Lactulose 20 GM Q6H PRN PRN PO Mupirocin 1 APPLIC BID NASAL Ondansetron HCl 4 MG Q4H PRN PRN IV Potassium Chloride 40 MEQ DAILY PRN PRN PO Ticagrelor 90 MG BID PO Zolpidem Tartrate 5 MG BEDTIME PRN PRN PO Acetaminophen 650 MG Q6H PRN PRN PO Atropine Sulfate 0.5 MG ASDIR PRN IV Atorvastatin Calcium 80 MG DAILY 1700 PO (DA) Morphine Sulfate 2 MG Q3H PRN PRN IV General appearance: awake, orientedHead/eyes: PERRLACardiovascular: normal heart sounds, normal S1/S5Roqpbnnloam/chest: on oxygen, symmetric expansion, no distressAbdomen: soft, non-tenderGenitourinary: no wallace, no bladder distentionMusculoskeletal: no muscle spasmNeuro/VACUUM FILTER OPERATOR: alert, oriented X 3, CNII-XII intactSkin: warm, dry, intact ResultsFindings/Data:24 hours ending at 0700 06/08 0700 06/07 2300 06/07 1500 Intake Total 1429.00 Output Total 450 Balance 979.00 Intake, IV 709.00 Intake, Oral 720 Output, Urine 450 Patient 86.2 kg Weight Weight Bed scale Measurement Method 24 Hour I O Total 06/08 0700 Intake Total 1429.00 Output Total 450 Balance 979.00 Laboratory Tests 06/08/19 0445:[Embedded Image Not Available] 06/07/19 0657:[Embedded Image Not Available] 06/07/19 0450:[Embedded Image Not Available] 06/06/19 1618:[Embedded Image Not Available]Laboratory Tests 06/085 1954 1612 Chemistry Sodium (134 - 147 mEq/L) 143 Potassium (3.4 - 5.0 mEq/L) 4.2 Chloride (100 - 108 mEq/L) 112 H Carbon Dioxide (21 - 33 mEq/L) 23 Anion Gap (0 - 20) 12 BUN (7 - 18 mg/dL) 50 H Creatinine (0.6 - 1.3 mg/dL) 2.6 H Glomerular Filtr Rate (90 - 95) 31.0 L Glucose (70 - 110 mg/dL) 116 H POC Glucose (70 - 110 MG/DL) 148 H 136 H 165 H Calcium (8.0 - 10.5 mg/dL) 8.3 Phosphorus (2.5 - 4.9 mg/dL) 3.2 Magnesium (1.8 - 2.4 mg/dL) 2.70 H Laboratory Tests 06/08 445 Hematology WBC (4.5 - 11.0 x10 3/uL) 11.19 H RBC (4.00 - 5.60 x10 6/uL) 3.39 L Hgb (12.5 - 16.9 g/dL) 9.3 L Hct (37.5 - 50.7 %) 28.9 L MCV (81.0 - 99.0 fL) 85.3 MCH (27.0 - 33.0 pg) 27.4 MCHC (33.0 - 37.0 g/dL) 32.2 L RDW (11.5 - 14.5 %) 13.7 Plt Count (150 - 400 x10 3/uL) 379 MPV (7.0 - 9.0 fL) 10.0 H Neut % (Auto) (56.0 - 77.0 %) 75.5 Lymph % (Auto) (14.0 - 32.0 %) 14.7 Highland % (Auto) (4.8 - 9.0 %) 8.8 Eos % (Auto) (0.3 - 3.7 %) 0.2 L Baso % (Auto) (0.0 - 2.0 %) 0.2 Neut # (Auto) (2.0 - 7.6 x10 3/uL) 8.46 H Lymph # (Auto) (1.0 - 3.8 x10 3/uL) 1.64 Highland # (Auto) (0.1 - 0.8 x10 3/uL) 0.98 H Eos # (Auto) (0.0 - 0.2 x10 3/uL) 0.02 Baso # (Auto) (0.0 - 0.2 x10 3/uL) 0.02 Abs Immat Gran (auto) (0.00 - 0.03 x10 3/uL) 0.07 H Add Manual Diff NO Immature Gran % (0.0 - 2.0 %) 0.6 Nucleated RBC % (0 - 0 %) 0.0 Nucleated RBCs # (Man) (0.0 - 0.1 x10 3/uL) 0.00 Results: labs reviewed, vital signs stable, current med profile rev'd Treatment Prophylaxis Treatment ProphylaxisOxygen: nasal cannula Diagnosis, Assessment PlanHospital course to date:Assessment and Plan: - Acute hypoxic respiratory failure secondary to pneumonia.- Multifocal PNA, right and Left lobe.- Shortness of breath and hypoxia secondary to pneumonia and fluid overload.- Fluid overload.- Acute kidney injury secondary to meds.- Hyperkalemia.- Subacute infarction/cerebrovascular accident.- History of hypertension.- History of diabetes type 2.- History of hyperlipidemia.- Metabolic acidosis. PLAN: CCU.Laxatives for Constipation.Continue IV ABX for PNA.Aggressive pulmonary toilet including incentive spirometry, nebulizer treatment,and O2 support.Cough medication.Need of sleep study to rule out sleep apnea.Monitor the kidney function.Statin and aspirin per neurologist for the cerebrovascular accident.Follow labs and replace as needed.SCD for DVT prophylaxis.Glycemic control, Accu-Chek a.c. and at bedtime, sliding scale, diabetic diet.Monitor. Code status: full codePlan discussed with: patient, spouse/partner, admitting physician, consultants, nurse, special education case manager Antoine Lee 06/09/19 2208:Attestations Midlevel/Physician AttestationPhysician attestation:Agree with the findings and plan as documented by MEDICATION ADMINISTRATION PROFESSIONAL: as abovereviewedpt seen and examineddw RN at 1214 at 2208 RPT #:[id number] OF REPORTPRProgress [id number]:54:00G.[id number] le for patient ihfiNZWPVOWLBKWGQN2909-79-26U89:08:37 HCACL 2019-06-08 06:07:00 [id number]:07:00 H [facility] ([facility])Nephrology Progress NoteREPORT#:[id number] REPORT STATUS: SignedDATE:06/08/19 TIME: 06 PATIENT: DUSTY FRANCOIS UNIT #: [id number]#: [id number] [address] [birth year] AGE: 58 SEX: M ATTEND: Kyung Bedoya [facility] AUTHOR: Gideon Teran MD * ALL edits or amendments must be made on the electronic/computer document * SubjectiveChief Complaint:Syncope/NSTEMI/AKIPatient reports:Yes: complaints. Comments:Patient seen and evaluated, discussed with care team, HPI no change from initial, vomited this AM Review of SystemsConstitutional:Yes fatigue, No chills, No feverSkin:No abrasion, No bruisingAllergy/Immun:No hives, No itchingEyes:No redness, No dischargeENT:No ear drainage, No ear ringingRespiratory:Yes non productive cough, Yes SOBCardiovascular:No palpitations Objective GeneralVS/I O:Vital Signs: Date Time Temp Pulse Resp B/P B/P Pulse O2 O2 Flow FiO2 Mean Ox Delivery Rate 06/08 0500 112 28 165/90 121 96 06/08 0400 37.3 99 24 139/89 105 96 High flow 6.391759 nasal cannula 06/08 0400 99 24 139/89 109 99 06/08 0300 96 15 124/72 93 99 06/08 0200 93 17 109/68 83 96 06/08 0100 93 20 115/64 83 100 06/08 0000 37.2 93 20 115/64 81 100 High flow 5.562919 nasal cannula 06/08 0000 93 18 88/54 66 100 06/07 2300 96 21 84/50 63 100 06/07 2218 97 High flow 5.396223 nasal cannula 06/07 2200 100 24 133/77 99 99 06/07 2100 107 23 142/71 100 99 06/07 2000 37.2 105 22 140/79 99 98 High flow 98.286613 nasal cannula 06/07 2000 105 22 140/79 103 98 06/07 1930 High flow 5.164405 nasal cannula 06/07 1900 109 19 157/84 114 95 06/07 1800 103 20 138/77 102 97 06/07 1700 99 23 126/74 95 93 06/07 1600 102 21 147/81 108 97 06/07 1500 99 20 142/76 102 97 06/07 1400 99 20 123/62 86 99 06/07 1200 37.7 108 25 148/89 114 97 06/07 1100 105 23 136/68 98 95 06/07 1001 103 25 154/83 112 99 06/07 0900 105 22 146/78 105 98 06/07 0801 102 22 155/82 112 98 06/07 0800 37.1 06/07 0800 Nasal 5.227814 cannula 06/07 0730 102 23 134/75 98 95 06/07 0700 103 18 151/76 107 98 24 hour I O ending at 0700: 06/08 0700 06/07 1900 Intake Total 1429.00 Output Total 450 Balance 979.00 Intake, IV 709.00 Intake, Oral 720 Output, Urine 450 Patient 86.2 kg Weight Weight Bed scale Measurement Method MedicationsActive Meds + DC'd Last 24 HrsHeparin Sodium 5,000 UNIT Q12HR SUBQ Carvedilol 12.5 MG BID@0900,2100 PO Amlodipine Besylate 5 MG DAILY PO Hydralazine HCl 10 MG Q6H PRN PRN IV Sodium Bicarbonate 75 ML .[id number] IV (CKD) Sodium Chloride 1,000 MLMetoclopramide HCl 10 MG Q8H IV Sodium Chloride 10 ML ASDIR PRN IV Pantoprazole Sodium 40 MG DAILY IV Promethazine HCl 25 MG Q8H PRN PRN IM Diphenhydramine HCl 25 MG Q6H PRN PRN PO Albuterol/Ipratropium 3 ML RTQ4H PRN PRN INH Azithromycin 500 MG Q24H IV Sodium Chloride 250 MLBenzonatate 100 MG Q6H PRN PRN PO Ceftriaxone Sodium 1,000 MG Q24H IV Sodium Chloride 100 MLAspirin 81 MG DAILY PO Dextrose/Water 125 ML ASDIR PRN IV Dextrose/Water 250 ML ASDIR PRN IV Glucagon 1 MG ASDIR PRN IM Insulin Glargine 10 UNIT Q12HR SUBQ Al Hydrox/Mg Hydrox/Simethicone 30 ML Q4H PRN PRN PO Docusate Sodium 100 MG BID PRN PRN PO Ergocalciferol 50,000 INTL.UNITS Q7D PO (CKD) Hydrocodone Bitart/Acetaminophen 1 TAB Q6H PRN PRN PO Insulin Human Lispro 0 AC HS SUBQ Lactulose 20 GM Q6H PRN PRN PO Mupirocin 1 APPLIC BID NASAL Ondansetron HCl 4 MG Q4H PRN PRN IV Potassium Chloride 40 MEQ DAILY PRN PRN PO Ticagrelor 90 MG BID PO Zolpidem Tartrate 5 MG BEDTIME PRN PRN PO Acetaminophen 650 MG Q6H PRN PRN PO Atropine Sulfate 0.5 MG ASDIR PRN IV Atorvastatin Calcium 80 MG DAILY 1700 PO (DA) Morphine Sulfate 2 MG Q3H PRN PRN IV Physical ExamGeneral appearance: alert, no acute distressHead/eyes: atraumatic, normocephalicENT: moist mucous membranes, normal noseNeck: supple/no meningismusCardiovascular: normal heart sounds, no rubRespiratory: aerating well, no distressAbdomen: non-tender, softGenitourinary: no flank pain, no foleyExtremities: non-tender, no edemaMusculoskeletal: no tenderenessNeuro/VACUUM FILTER OPERATOR: alert, normal speechSkin: dry, intact ResultsFindings/Data:Laboratory Tests 06/08 1612 1125 0728 Chemistry Sodium (134 - 147 mEq/L) 143 Potassium (3.4 - 5.0 mEq/L) 4.2 Chloride (100 - 108 mEq/L) 112 H Carbon Dioxide (21 - 33 mEq/L) 23 Anion Gap (0 - 20) 12 BUN (7 - 18 mg/dL) 50 H Creatinine (0.6 - 1.3 mg/dL) 2.6 H Glomerular Filtr Rate (90 - 95) 31.0 L Glucose (70 - 110 mg/dL) 116 H POC Glucose (70 - 110 MG/DL) 136 H 165 H 149 H 129 H Calcium (8.0 - 10.5 mg/dL) 8.3 Phosphorus (2.5 - 4.9 mg/dL) 3.2 Magnesium (1.8 - 2.4 mg/dL) 2.70 H 06/07 0657 Chemistry Sodium (134 - 147 mEq/L) 141 Potassium (3.4 - 5.0 mEq/L) 4.3 Chloride (100 - 108 mEq/L) 109 H Carbon Dioxide (21 - 33 mEq/L) 22 Anion Gap (0 - 20) 14 BUN (7 - 18 mg/dL) 57 H Creatinine (0.6 - 1.3 mg/dL) 3.6 H Glomerular Filtr Rate (90 - 95) 21.3 L Glucose (70 - 110 mg/dL) 121 H Calcium (8.0 - 10.5 mg/dL) 8.5 Phosphorus (2.5 - 4.9 mg/dL) 3.9 Magnesium (1.8 - 2.4 mg/dL) 2.50 H Laboratory Tests 06/08 445 Hematology WBC (4.5 - 11.0 x10 3/uL) 11.19 H RBC (4.00 - 5.60 x10 6/uL) 3.39 L Hgb (12.5 - 16.9 g/dL) 9.3 L Hct (37.5 - 50.7 %) 28.9 L MCV (81.0 - 99.0 fL) 85.3 MCH (27.0 - 33.0 pg) 27.4 MCHC (33.0 - 37.0 g/dL) 32.2 L RDW (11.5 - 14.5 %) 13.7 Plt Count (150 - 400 x10 3/uL) 379 MPV (7.0 - 9.0 fL) 10.0 H Neut % (Auto) (56.0 - 77.0 %) 75.5 Lymph % (Auto) (14.0 - 32.0 %) 14.7 [place]land % (Auto) (4.8 - 9.0 %) 8.8 Eos % (Auto) (0.3 - 3.7 %) 0.2 L Baso % (Auto) (0.0 - 2.0 %) 0.2 Neut # (Auto) (2.0 - 7.6 x10 3/uL) 8.46 H Lymph # (Auto) (1.0 - 3.8 x10 3/uL) 1.64 [place]land # (Auto) (0.1 - 0.8 x10 3/uL) 0.98 H Eos # (Auto) (0.0 - 0.2 x10 3/uL) 0.02 Baso # (Auto) (0.0 - 0.2 x10 3/uL) 0.02 Abs Immat Gran (auto) (0.00 - 0.03 x10 3/uL) 0.07 H Add Manual Diff NO Immature Gran % (0.0 - 2.0 %) 0.6 Nucleated RBC % (0 - 0 %) 0.0 Nucleated RBCs # (Man) (0.0 - 0.1 x10 3/uL) 0.00 Diagnosis, Assessment PlanFree Text A P:Patient seen and evaluated, discussed with care team, Images and laboratory reviewedHistory of HTN: metoprolol: Monitor BP closely and adjust medications as neededDM: insulin: Monitor BS closely and adjust medications as neededHLD: LipitorCAD s/p NSTEMI , s/p LHC and LAD/LCX PCI: ASA/TicagrelorPNA: Rocephin/AzithromaxSOB with elevated BNP, he has no LE edema, his SOB could be mainly related to his PNA, he is nauseated and eating, would hold off diuretcis if possibleAKI felisha related to CINHis baseline creat 1.2 in Sep 2018, eGFR 80 , felisha had some progression since then, check UA, urine P/creat ratio and renal USAcidosis: pH this AM 7.287/24/19 Creat 3.6 stable, K WNL4.3, HCO3 22 better, renal US WNL7 Creat better 2.6, electrolytes acceptable, HCO3 23, continue IVF at 0749 [facility] #:[id number] OF REPORTPRProgress [id number]:00G.[id number] le for patient [id number]:50:09 HCACL 2019-06-07 17:48:00 [id number]:48:00 H [facility] ([facility] CENTERCardiology Progress NoteREPORT#:[id number] REPORT STATUS: SignedDATE:06/07/19 TIME: 1748 PATIENT: DUSTY FRANCOIS UNIT #: [id number]#: [id number] [address] [birth year] AGE: 58 SEX: M ATTEND: Kyung Bedoya [facility] AUTHOR: Yvette Rae MD * ALL edits or amendments must be made on the electronic/computer document * SubjectiveChief Complaint:Elevated troponinPatient reports:No: chest pain, palpitations. Objective Physical ExamGeneral appearance: alert, awake, oriented, no acute distressHead/Eyes: atraumatic, normocephalicENT: moist mucosal membranesNeck: non-tender, supple/no meningismus, no JVD, no lymphadenopathy, no masses or swellingCardiovascular: CV assessment: regular rate and rhythm, normal heart soundsRespiratory: clear to auscultation, no distressAbdomen: soft, non-tender, normal bowel soundsGenitourinary: no bladder distentionUpper extremity: UE assessment: no clubbing, no cyanosisLower extremity: LE assessment: no clubbing, no cyanosis, no edemaMusculoskeletal: full range of motionNeuro/VACUUM FILTER OPERATOR: alert, oriented X 3Skin: dry, intactPsychiatry: normal affect Review of SystemsAll systems rev neg: except as marked Diagnosis, Assessment Plan Free Text DxA P NotesFree Text DxA P Notes:This is a 58-year-old male with history of peripheralarterial disease and hypertension, who presents with the syncopal episode. Thepatient ruled in for non-ST elevation myocardial infarction. 1. Non-ST elevation myocardial infarction. - s/p cardiac catheterization-PCI to the LCX 100 occlusion,, successfully revascularized. -S/PCI to the LAD- continue aspirin 81 mg -Cont Brilinta 90 mg po BID- continue Lipitor 80 mg daily- continue metoprolol 25 mg p.o. b.i.d. 2.Pulmonary edema vs. PNA- CXR: worsening of the infiltrate- CT chest: pulmonary opacities either edema or pneumonia- BNP 1010- ECHO EF 45%, with normal IVC size- DC lasix, creatinine stable, continue IV fluids 3. Possible aspiration PNA- due to results of CT chest. 4. Hyperlipidemia. - Lipitor 80 mg daily. 5. Hypertension. - BP controlled - continue coreg 12. 5 mg BD- continue amlodipine 5 mg daily at 1801 RPT #:[id number] OF REPORTPRProgress [id number]:48:00G.[id number] for patient elvqZADXQZDNBHUEMI0462-77-51G04:01:45 [facility] 2019-06-07 14:45:00 [id number]:45:00 [facility] Prog. NoteREPORT#:[id number] REPORT STATUS: SignedDATE:06/07/19 TIME: 1445 PATIENT: DUSTY FRANCOIS UNIT #: [id number]#: [id number] [address] [birth year] AGE: 58 SEX: M ATTEND: Kyung Bedoya AUTHOR: Kyung Bedoya MD * ALL edits or amendments must be made on the electronic/computer document * SubjectiveChief Complaint:C/O FEVER COUGH SPO2 DROPED NO CHESTPAINPatient reports: chest pain, cough Review of SystemsConstitutional:Reports: generalized weakness. Skin:Denies: abrasion, bruising, contusion, diaphoresis, ecchymosis, itching, laceration, rash, swelling, other. Allergy/Immun:Denies: allergic reaction, anaphylaxis, hives, itching, rhinorrhea, sneezing, other. Eyes:Denies: redness, discharge, visual loss/blurred, itching, diplopia, eye pain, photophobia, swelling, other. Respiratory:Reports: productive cough (sputum), SOB. Cardiovascular:Reports: orthopnea. GI:Denies: abdominal pain, anorexia, constipation, diarrhea, dysphagia, GERD, hematemesis, hematochezia, hiatal hernia, melena, nausea, rectal pain, vomiting,other. Musculoskeletal:Denies: arthritis, extremity pain, extremity swelling, joint pain, joint swelling, lumbar pain, myalgias, neck pain, thoracic pain, other. Neuro:Reports: weakness. All systems rev neg: except as marked Objective GeneralVS/I O:Vital SignsDate Temp Pulse Resp B/P B/P Mean Pulse Ox IaS254/-06/07 98.5-99.8 87-108 15-28 100-187/46-106 67-133 95-100 Last Documented: Result Date Time Pulse Ox 99 06/07 1400 B/P 123/62 06/07 1400 B/P Mean 86 06/07 1400 Pulse 99 06/07 1400 Resp 20 06/07 1400 Temp 99.8 06/07 1200 O2 Delivery Nasal cannula 06/07 0800 O2 Flow Rate 5.657631 06/07 0800 FiO2 70 06/06 0215 24 hour I O ending at 0700: 06/07 0700 06/06 1900 Intake Total 500.00 Output Total 1000 Balance -500.00 Intake, IV 450.00 Intake, Oral 50 Output, Urine 1000 Patient Weight Weight (lb): 185Weight (oz): 3.01Weight (kg): 84.000 Medications:Active Meds + DC'd Last 24 HrsHeparin Sodium 5,000 UNIT Q12HR SUBQ Carvedilol 12.5 MG BID@0900,2100 PO Amlodipine Besylate 5 MG DAILY PO Hydralazine HCl 10 MG Q6H PRN PRN IV Sodium Bicarbonate 75 ML .[id number] IV (CKD) Sodium Chloride 1,000 MLPerflutren Protein Type A Microsphe 0 .STK-MED ONE IV (DC) Sodium Chloride 1,000 ML .[id number] IV (DC) Metoclopramide HCl 10 MG Q8H IV Sodium Chloride 10 ML ASDIR PRN IV Pantoprazole Sodium 40 MG DAILY IV Promethazine HCl 25 MG Q8H PRN PRN IM Furosemide 40 MG BID 9A 5P IV (DC) Diphenhydramine HCl 25 MG Q6H PRN PRN PO Albuterol/Ipratropium 3 ML RTQ4H PRN PRN INH Azithromycin 500 MG Q24H IV Sodium Chloride 250 MLBenzonatate 100 MG Q6H PRN PRN PO Ceftriaxone Sodium 1,000 MG Q24H IV Sodium Chloride 100 MLAspirin 81 MG DAILY PO Dextrose/Water 125 ML ASDIR PRN IV Dextrose/Water 250 ML ASDIR PRN IV Glucagon 1 MG ASDIR PRN IM Insulin Glargine 10 UNIT Q12HR SUBQ Al Hydrox/Mg Hydrox/Simethicone 30 ML Q4H PRN PRN PO Docusate Sodium 100 MG BID PRN PRN PO Ergocalciferol 50,000 INTL.UNITS Q7D PO (CKD) Hydrocodone Bitart/Acetaminophen 1 TAB Q6H PRN PRN PO Insulin Human Lispro 0 AC HS SUBQ Lactulose 20 GM Q6H PRN PRN PO Mupirocin 1 APPLIC BID NASAL Ondansetron HCl 4 MG Q4H PRN PRN IV Potassium Chloride 40 MEQ DAILY PRN PRN PO Ticagrelor 90 MG BID PO Zolpidem Tartrate 5 MG BEDTIME PRN PRN PO Acetaminophen 650 MG Q6H PRN PRN PO Atropine Sulfate 0.5 MG ASDIR PRN IV Atorvastatin Calcium 80 MG DAILY 1700 PO (DA) Metoprolol Tartrate 25 MG BID PO (DC) Morphine Sulfate 2 MG Q3H PRN PRN IV Physical ExamGeneral appearance: alert, awake, orientedHead/Eyes: atraumatic, EOMINeck: non-tender, supple/no meningismusCardiovascular: normal heart sounds, regular rate rhythmRespiratory: crackles, decreased breath sounds, shortness of breathAbdomen: soft, no distentionNeuro/VACUUM FILTER OPERATOR: alert, oriented x 3 ResultsFindings/Data:Laboratory Tests 06/07/19 0657:[Embedded Image Not Available] 06/07/19 0450:[Embedded Image Not Available] 06/06/19 1618:[Embedded Image Not Available]Laboratory Tests 06/07 06/07 06/07 06/06 06/06 1125 0728 0657 2101 1647 Chemistry Sodium (134 - 147 mEq/L) 141 Potassium (3.4 - 5.0 mEq/L) 4.3 Chloride (100 - 108 mEq/L) 109 H Carbon Dioxide (21 - 33 mEq/L) 22 Anion Gap (0 - 20) 14 BUN (7 - 18 mg/dL) 57 H Creatinine (0.6 - 1.3 mg/dL) 3.6 H Glomerular Filtr Rate (90 - 95) 21.3 L Glucose (70 - 110 mg/dL) 121 H POC Glucose (70 - 110 MG/DL) 149 H 129 H 96 87 Calcium (8.0 - 10.5 mg/dL) 8.5 Phosphorus (2.5 - 4.9 mg/dL) 3.9 Magnesium (1.8 - 2.4 mg/dL) 2.50 H 06/06 1618 Chemistry Sodium (134 - 147 mEq/L) 137 Potassium (3.4 - 5.0 mEq/L) 5.2 H Chloride (100 - 108 mEq/L) 110 H Carbon Dioxide (21 - 33 mEq/L) 18 L Anion Gap (0 - 20) 14 BUN (7 - 18 mg/dL) 55 H Creatinine (0.6 - 1.3 mg/dL) 3.7 H Glomerular Filtr Rate (90 - 95) 20.7 L Glucose (70 - 110 mg/dL) 101 Calcium (8.0 - 10.5 mg/dL) 8.2 Laboratory Tests 06/07 0450 Hematology WBC (4.5 - 11.0 x10 3/uL) 10.89 RBC (4.00 - 5.60 x10 6/uL) 3.10 L Hgb (12.5 - 16.9 g/dL) 8.4 L Hct (37.5 - 50.7 %) 26.1 L MCV (81.0 - 99.0 fL) 84.2 MCH (27.0 - 33.0 pg) 27.1 MCHC (33.0 - 37.0 g/dL) 32.2 L RDW (11.5 - 14.5 %) 14.1 Plt Count (150 - 400 x10 3/uL) 330 MPV (7.0 - 9.0 fL) 10.8 H Neut % (Auto) (56.0 - 77.0 %) 79.3 H Lymph % (Auto) (14.0 - 32.0 %) 11.9 L Highland % (Auto) (4.8 - 9.0 %) 7.7 Eos % (Auto) (0.3 - 3.7 %) 0.1 L Baso % (Auto) (0.0 - 2.0 %) 0.1 Neut # (Auto) (2.0 - 7.6 x10 3/uL) 8.63 H Lymph # (Auto) (1.0 - 3.8 x10 3/uL) 1.30 Highland # (Auto) (0.1 - 0.8 x10 3/uL) 0.84 H Eos # (Auto) (0.0 - 0.2 x10 3/uL) 0.01 Baso # (Auto) (0.0 - 0.2 x10 3/uL) 0.01 Abs Immat Gran (auto) (0.00 - 0.03 x10 3/uL) 0.10 H Add Manual Diff NO Immature Gran % (0.0 - 2.0 %) 0.9 Nucleated RBC % (0 - 0 %) 0.0 Nucleated RBCs # (Man) (0.0 - 0.1 x10 3/uL) 0.00 Diagnosis, Assessment PlanHospital course to date:1. ACUTE CORONARY SYNDROME - S/P PCI TO MID CIRCUMFLEX .LAD , ON ASA ,BRILANTA ,METOPROLOL,, PLANS FOR STAGED PCT TO RCA LATER/WILL HOLD STATIN FOR MYELGIA AND ELEVATED CK FOR NOW 2,SUBACUTE CVA - NEURO FU 3.HYPOXIA DUE TO PULMO EDEMA -STARTED LASIX 4..PNA -CULTURES SEND -STARTED ROCEPHIN /AZITHROMYCIN 5.BRENDA - ON LASIX ,EXPECTED TO INCREASE , MONITOR ,HOLD IVF FOR NOW ,NEPHROLOGY EVALUATION 6.DM -UNCONCONTROLED -HBA1C 9.1 -ON LANTUS ,HUMOLOG 7.PAD DVT/GI PROPHYLAXIS at 1446 [facility] #:[id number] OF REPORTPRProgress [id number]:45:00G.[id number] le for patient ivkdNEEGKUGTWPCDQB1130-97-91M57:47:05 [facility] 2019-06-07 11:30:00 [id number]:30:00 H [place] [facility] ([facility])Pulmonology Progress NoteREPORT#:[id number] REPORT STATUS: SignedDATE:06/07/19 TIME: 1130 PATIENT: DUSTY FRANCOIS UNIT #: [id number]#: [id number] [address] [birth year] AGE: 58 SEX: M ATTEND: Kyung Bedoya [facility] AUTHOR: Koko Chung MEDICATION ADMINISTRATION PROFESSIONAL * ALL edits or amendments must be made on the electronic/computer document * SubjectiveChief Complaint:He is on 5 liter NC.Breathing is little better.Still has some SOB with exertion.Denies any N/V/D.Denies any Cp, fever, chills.BP and R stable. Review of Systems ROSConstitutional:fatigue, generalized weakness. Respiratory:Reports: SORIANO (dyspnea on exertion), SOB. Cardiovascular:Denies: edema, orthopnea. GI:Denies: abdominal pain, constipation, GERD, hiatal hernia. :Denies: flank pain, frequency, hematuria. Musculoskeletal:Denies: extremity swelling, joint pain. Endocrine:Denies: polydipsia, polyphagia. Neuro:Denies: dizziness, focal weakness, lightheaded. All systems rev neg: except as marked Objective Physical ExamVS/I O:Last Documented: Result Date Time Pulse Ox 95 06/07 1100 B/P 136/68 06/07 1100 B/P Mean 98 06/07 1100 Pulse 105 06/07 1100 Resp 23 06/07 1100 Temp 37.3 06/07 0400 O2 Delivery High flow nasal cannula 06/07 0130 O2 Flow Rate 8.035933 06/07 0130 FiO2 70 06/06 0215 24 hour I O ending at 0700: 06/07 0700 06/06 1900 Intake Total 500.00 Output Total 1000 Balance -500.00 Intake, IV 450.00 Intake, Oral 50 Output, Urine 1000 Patient Weight Weight (lb): 185Weight (oz): 3.01Weight (kg): 84.000 Medications:Active Meds + DC'd Last 24 HrsCarvedilol 12.5 MG BID@0900,2100 PO Amlodipine Besylate 5 MG DAILY PO Hydralazine HCl 10 MG Q6H PRN PRN IV Sodium Bicarbonate 75 ML .[id number] IV (CKD) Sodium Chloride 1,000 MLPerflutren Protein Type A Microsphe 0 .STK-MED ONE IV (DC) Sodium Chloride 1,000 ML .[id number] IV (DC) Lactulose 20 GM ONCE ONE PO (DC) Metoclopramide HCl 10 MG Q8H IV Sodium Polystyrene Sulfonate 30 GM Q4H PO (DC) Sodium Chloride 10 ML ASDIR PRN IV Pantoprazole Sodium 40 MG DAILY IV Promethazine HCl 25 MG Q8H PRN PRN IM Furosemide 40 MG BID 9A 5P IV (DC) Diphenhydramine HCl 25 MG Q6H PRN PRN PO Albuterol/Ipratropium 3 ML RTQ4H PRN PRN INH Azithromycin 500 MG Q24H IV Sodium Chloride 250 MLBenzonatate 100 MG Q6H PRN PRN PO Ceftriaxone Sodium 1,000 MG Q24H IV Sodium Chloride 100 MLAspirin 81 MG DAILY PO Dextrose/Water 125 ML ASDIR PRN IV Dextrose/Water 250 ML ASDIR PRN IV Glucagon 1 MG ASDIR PRN IM Insulin Glargine 10 UNIT Q12HR SUBQ Al Hydrox/Mg Hydrox/Simethicone 30 ML Q4H PRN PRN PO Docusate Sodium 100 MG BID PRN PRN PO Ergocalciferol 50,000 INTL.UNITS Q7D PO (CKD) Hydrocodone Bitart/Acetaminophen 1 TAB Q6H PRN PRN PO Insulin Human Lispro 0 AC HS SUBQ Lactulose 20 GM Q6H PRN PRN PO Mupirocin 1 APPLIC BID NASAL Ondansetron HCl 4 MG Q4H PRN PRN IV Potassium Chloride 40 MEQ DAILY PRN PRN PO Ticagrelor 90 MG BID PO Zolpidem Tartrate 5 MG BEDTIME PRN PRN PO Acetaminophen 650 MG Q6H PRN PRN PO Atropine Sulfate 0.5 MG ASDIR PRN IV Atorvastatin Calcium 80 MG DAILY 1700 PO (DA) Metoprolol Tartrate 25 MG BID PO (DC) Morphine Sulfate 2 MG Q3H PRN PRN IV General appearance: awake, orientedHead/eyes: PERRLANeck: no JVDCardiovascular: normal heart sounds, normal S1/H2Atmtgvrcwqx/chest: on oxygen, symmetric expansion, no distressAbdomen: soft, non-tenderGenitourinary: no wallace, no bladder distentionMusculoskeletal: no muscle spasmNeuro/VACUUM FILTER OPERATOR: alert, oriented X 3, CNII-XII intactSkin: warm, dry, intact ResultsFindings/Data:Laboratory Tests 06/07/19 0657:[Embedded Image Not Available] 06/07/19 0450:[Embedded Image Not Available] 06/06/19 1618:[Embedded Image Not Available] 06/06/19 0445:[Embedded Image Not Available] 06/06/19 0350:[Embedded Image Not Available] 06/05/192024:[Embedded Image Not Available]Laboratory Tests 06/07 06/07 06/06 06/06 06/06 0728 0657 2101 1647 1618 Chemistry Sodium (134 - 147 mEq/L) 141 137 Potassium (3.4 - 5.0 mEq/L) 4.3 5.2 H Chloride (100 - 108 mEq/L) 109 H 110 H Carbon Dioxide (21 - 33 mEq/L) 22 18 L Anion Gap (0 - 20) 14 14 BUN (7 - 18 mg/dL) 57 H 55 H Creatinine (0.6 - 1.3 mg/dL) 3.6 H 3.7 H Glomerular Filtr Rate (90 - 95) 21.3 L 20.7 L Glucose (70 - 110 mg/dL) 121 H 101 POC Glucose (70 - 110 MG/DL) 129 H 96 87 Calcium (8.0 - 10.5 mg/dL) 8.5 8.2 Phosphorus (2.5 - 4.9 mg/dL) 3.9 Magnesium (1.8 - 2.4 mg/dL) 2.50 H Laboratory Tests 06/07 0450 Hematology WBC (4.5 - 11.0 x10 3/uL) 10.89 RBC (4.00 - 5.60 x10 6/uL) 3.10 L Hgb (12.5 - 16.9 g/dL) 8.4 L Hct (37.5 - 50.7 %) 26.1 L MCV (81.0 - 99.0 fL) 84.2 MCH (27.0 - 33.0 pg) 27.1 MCHC (33.0 - 37.0 g/dL) 32.2 L RDW (11.5 - 14.5 %) 14.1 Plt Count (150 - 400 x10 3/uL) 330 MPV (7.0 - 9.0 fL) 10.8 H Neut % (Auto) (56.0 - 77.0 %) 79.3 H Lymph % (Auto) (14.0 - 32.0 %) 11.9 L Highland % (Auto) (4.8 - 9.0 %) 7.7 Eos % (Auto) (0.3 - 3.7 %) 0.1 L Baso % (Auto) (0.0 - 2.0 %) 0.1 Neut # (Auto) (2.0 - 7.6 x10 3/uL) 8.63 H Lymph # (Auto) (1.0 - 3.8 x10 3/uL) 1.30 Highland # (Auto) (0.1 - 0.8 x10 3/uL) 0.84 H Eos # (Auto) (0.0 - 0.2 x10 3/uL) 0.01 Baso # (Auto) (0.0 - 0.2 x10 3/uL) 0.01 Abs Immat Gran (auto) (0.00 - 0.03 x10 3/uL) 0.10 H Add Manual Diff NO Immature Gran % (0.0 - 2.0 %) 0.9 Nucleated RBC % (0 - 0 %) 0.0 Nucleated RBCs # (Man) (0.0 - 0.1 x10 3/uL) 0.00 Radiology data:Recent Impressions:ULTRASOUND - DUP VEIN ALEJANDRA 06/06 1651 Report Impression - Status: SIGNED Entered: 06/06/20191650 IMPRESSION: Negative bilateral lower extremity venous Doppler without evidence ofdeep vein thrombosis. SL: [id number] By: [email or web address] Veronica Vizcaino M.D.ULTRASOUND - [facility] 06/06 1651 Report Impression - Status: SIGNED Entered: 06/06/20191917 IMPRESSION:1. Unremarkable renal ultrasound. SL: K56-H Impression By: Pablo Montes De Oca M.D. Results: labs reviewed, vital signs stable, x-ray personally reviewed, current med profile rev'd Treatment Prophylaxis Treatment ProphylaxisOxygen: nasal cannula Diagnosis, Assessment PlanHospital course to date:Assessment and Plan: - Acute hypoxic respiratory failure secondary to pneumonia.- Multifocal PNA, right and Left lobe.- Shortness of breath and hypoxia secondary to pneumonia and fluid overload.- Fluid overload.- Acute kidney injury secondary to meds.- Hyperkalemia.- Subacute infarction/cerebrovascular accident.- History of hypertension.- History of diabetes type 2.- History of hyperlipidemia.- Metabolic acidosis. PLAN: CCU.IV ABX for PNA.Aggressive pulmonary toilet including incentive spirometry, nebulizer treatment,and oxygen support.Cough medication.Need of sleep study to rule out sleep apnea.Monitor the kidney function.Statin and aspirin per neurologist for the cerebrovascular accident.Follow labs and replace as needed.SCD for DVT prophylaxis.Glycemic control, Accu-Chek a.c. and at bedtime, sliding scale, diabetic diet.Monitor. Code status: full codePlan discussed with: patient, family, admitting physician, consultants, nurse, special education case manager at 1148 RPT #:[id number] OF REPORTPRProgress [id number]:30:00G.[id number] le for patient itcyLCYDGJPCVFCDPC0908-84-52O34:48:50 [facility] 2019-06-07 11:30:00 [id number]:30:00 [facility] [place] [facility] ([facility])Pulmonology Progress NoteREPORT#:[id number] REPORT STATUS: SignedDATE:06/07/19 TIME: 1130 PATIENT: DUSTY FRANCOIS UNIT #: [id number]#: [id number] [place] [facility] [place]DOB: [birth year] AGE: 58 SEX: M ATTEND: Kyung Bedoya [facility] AUTHOR: Koko Chung MEDICATION ADMINISTRATION PROFESSIONAL * ALL edits or amendments must be made on the electronic/computer document * Koko Chung 06/07/19 1130:SubjectiveChief Complaint:He is on 5 liter NC.Breathing is little better.Still has some SOB with exertion.Denies any N/V/D.Denies any Cp, fever, chills.BP and R stable. Review of Systems ROSConstitutional:fatigue, generalized weakness. Respiratory:Reports: SORIANO (dyspnea on exertion), SOB. Cardiovascular:Denies: edema, orthopnea. GI:Denies: abdominal pain, constipation, GERD, hiatal hernia. :Denies: flank pain, frequency, hematuria. Musculoskeletal:Denies: extremity swelling, joint pain. Endocrine:Denies: polydipsia, polyphagia. Neuro:Denies: dizziness, focal weakness, lightheaded. All systems rev neg: except as marked Objective Physical ExamVS/I O:Last Documented: Result Date Time Pulse Ox 95 06/07 1100 B/P 136/68 06/07 1100 B/P Mean 98 06/07 1100 Pulse 105 06/07 1100 Resp 23 06/07 1100 Temp 37.3 06/07 0400 O2 Delivery High flow nasal cannula 06/07 0130 O2 Flow Rate 8.679516 06/07 0130 FiO2 70 06/06 0215 24 hour I O ending at 0700: 06/07 0700 06/06 1900 Intake Total 500.00 Output Total 1000 Balance -500.00 Intake, IV 450.00 Intake, Oral 50 Output, Urine 1000 Patient Weight Weight (lb): 185Weight (oz): 3.01Weight (kg): 84.000 Medications:Active Meds + DC'd Last 24 HrsCarvedilol 12.5 MG BID@0900,2100 PO Amlodipine Besylate 5 MG DAILY PO Hydralazine HCl 10 MG Q6H PRN PRN IV Sodium Bicarbonate 75 ML .[id number] IV (CKD) Sodium Chloride 1,000 MLPerflutren Protein Type A Microsphe 0 .STK-MED ONE IV (DC) Sodium Chloride 1,000 ML .[id number] IV (DC) Lactulose 20 GM ONCE ONE PO (DC) Metoclopramide HCl 10 MG Q8H IV Sodium Polystyrene Sulfonate 30 GM Q4H PO (DC) Sodium Chloride 10 ML ASDIR PRN IV Pantoprazole Sodium 40 MG DAILY IV Promethazine HCl 25 MG Q8H PRN PRN IM Furosemide 40 MG BID 9A 5P IV (DC) Diphenhydramine HCl 25 MG Q6H PRN PRN PO Albuterol/Ipratropium 3 ML RTQ4H PRN PRN INH Azithromycin 500 MG Q24H IV Sodium Chloride 250 MLBenzonatate 100 MG Q6H PRN PRN PO Ceftriaxone Sodium 1,000 MG Q24H IV Sodium Chloride 100 MLAspirin 81 MG DAILY PO Dextrose/Water 125 ML ASDIR PRN IV Dextrose/Water 250 ML ASDIR PRN IV Glucagon 1 MG ASDIR PRN IM Insulin Glargine 10 UNIT Q12HR SUBQ Al Hydrox/Mg Hydrox/Simethicone 30 ML Q4H PRN PRN PO Docusate Sodium 100 MG BID PRN PRN PO Ergocalciferol 50,000 INTL.UNITS Q7D PO (CKD) Hydrocodone Bitart/Acetaminophen 1 TAB Q6H PRN PRN PO Insulin Human Lispro 0 AC HS SUBQ Lactulose 20 GM Q6H PRN PRN PO Mupirocin 1 APPLIC BID NASAL Ondansetron HCl 4 MG Q4H PRN PRN IV Potassium Chloride 40 MEQ DAILY PRN PRN PO Ticagrelor 90 MG BID PO Zolpidem Tartrate 5 MG BEDTIME PRN PRN PO Acetaminophen 650 MG Q6H PRN PRN PO Atropine Sulfate 0.5 MG ASDIR PRN IV Atorvastatin Calcium 80 MG DAILY 1700 PO (DA) Metoprolol Tartrate 25 MG BID PO (DC) Morphine Sulfate 2 MG Q3H PRN PRN IV General appearance: awake, orientedHead/eyes: PERRLANeck: no JVDCardiovascular: normal heart sounds, normal S1/W5Nbvyugqmyso/chest: on oxygen, symmetric expansion, no distressAbdomen: soft, non-tenderGenitourinary: no wallace, no bladder distentionMusculoskeletal: no muscle spasmNeuro/VACUUM FILTER OPERATOR: alert, oriented X 3, CNII-XII intactSkin: warm, dry, intact ResultsFindings/Data:Laboratory Tests 06/07/19 0657:[Embedded Image Not Available] 06/07/19 0450:[Embedded Image Not Available] 06/06/19 1618:[Embedded Image Not Available] 06/06/19 0445:[Embedded Image Not Available] 06/06/19 0350:[Embedded Image Not Available] 06/05/192024:[Embedded Image Not Available]Laboratory Tests 06/07 06/07 06/06 06/06 06/06 0728 0657 2101 1647 1618 Chemistry Sodium (134 - 147 mEq/L) 141 137 Potassium (3.4 - 5.0 mEq/L) 4.3 5.2 H Chloride (100 - 108 mEq/L) 109 H 110 H Carbon Dioxide (21 - 33 mEq/L) 22 18 L Anion Gap (0 - 20) 14 14 BUN (7 - 18 mg/dL) 57 H 55 H Creatinine (0.6 - 1.3 mg/dL) 3.6 H 3.7 H Glomerular Filtr Rate (90 - 95) 21.3 L 20.7 L Glucose (70 - 110 mg/dL) 121 H 101 POC Glucose (70 - 110 MG/DL) 129 H 96 87 Calcium (8.0 - 10.5 mg/dL) 8.5 8.2 Phosphorus (2.5 - 4.9 mg/dL) 3.9 Magnesium (1.8 - 2.4 mg/dL) 2.50 H Laboratory Tests 06/07 450 Hematology WBC (4.5 - 11.0 x10 3/uL) 10.89 RBC (4.00 - 5.60 x10 6/uL) 3.10 L Hgb (12.5 - 16.9 g/dL) 8.4 L Hct (37.5 - 50.7 %) 26.1 L MCV (81.0 - 99.0 fL) 84.2 MCH (27.0 - 33.0 pg) 27.1 MCHC (33.0 - 37.0 g/dL) 32.2 L RDW (11.5 - 14.5 %) 14.1 Plt Count (150 - 400 x10 3/uL) 330 MPV (7.0 - 9.0 fL) 10.8 H Neut % (Auto) (56.0 - 77.0 %) 79.3 H Lymph % (Auto) (14.0 - 32.0 %) 11.9 L Highland % (Auto) (4.8 - 9.0 %) 7.7 Eos % (Auto) (0.3 - 3.7 %) 0.1 L Baso % (Auto) (0.0 - 2.0 %) 0.1 Neut # (Auto) (2.0 - 7.6 x10 3/uL) 8.63 H Lymph # (Auto) (1.0 - 3.8 x10 3/uL) 1.30 [place]land # (Auto) (0.1 - 0.8 x10 3/uL) 0.84 H Eos # (Auto) (0.0 - 0.2 x10 3/uL) 0.01 Baso # (Auto) (0.0 - 0.2 x10 3/uL) 0.01 Abs Immat Gran (auto) (0.00 - 0.03 x10 3/uL) 0.10 H Add Manual Diff NO Immature Gran % (0.0 - 2.0 %) 0.9 Nucleated RBC % (0 - 0 %) 0.0 Nucleated RBCs # (Man) (0.0 - 0.1 x10 3/uL) 0.00 Radiology data:Recent Impressions:ULTRASOUND - DUP VEIN ALEJANDRA 06/06 1651 Report Impression - Status: SIGNED Entered: 06/06/20191650 IMPRESSION: Negative bilateral lower extremity venous Doppler without evidence ofdeep vein thrombosis. SL: [id number] By: [email or web address] - Amadou Vizcaino M.D.ULTRASOUND - [facility] 06/06 1651 Report Impression - Status: SIGNED Entered: 06/06/20191917 IMPRESSION:1. Unremarkable renal ultrasound. SL: K56-H Impression By: Pablo Montes De Oca M.D. Results: labs reviewed, vital signs stable, x-ray personally reviewed, current med profile rev'd Treatment Prophylaxis Treatment ProphylaxisOxygen: nasal cannula Diagnosis, Assessment PlanHospital course to date:Assessment and Plan: - Acute hypoxic respiratory failure secondary to pneumonia.- Multifocal PNA, right and Left lobe.- Shortness of breath and hypoxia secondary to pneumonia and fluid overload.- Fluid overload.- Acute kidney injury secondary to meds.- Hyperkalemia.- Subacute infarction/cerebrovascular accident.- History of hypertension.- History of diabetes type 2.- History of hyperlipidemia.- Metabolic acidosis. PLAN: CCU.IV ABX for PNA.Aggressive pulmonary toilet including incentive spirometry, nebulizer treatment,and oxygen support.Cough medication.Need of sleep study to rule out sleep apnea.Monitor the kidney function.Statin and aspirin per neurologist for the cerebrovascular accident.Follow labs and replace as needed.SCD for DVT prophylaxis.Glycemic control, Accu-Chek a.c. and at bedtime, sliding scale, diabetic diet.Monitor. Code status: full codePlan discussed with: patient, family, admitting physician, consultants, nurse, special education case manager Antoine Lee 06/08/19 1028:Attestations Midlevel/Physician AttestationPhysician attestation:Agree with the findings and plan as documented by MEDICATION ADMINISTRATION PROFESSIONAL: as abovereviewedpt seen and examined NPPVoutpt PSG dw RN at 1148 at 1028 RPT #:[id number] OF REPORTPRProgress Duwk1222-47-73B48:30:00G.[id number] le for patient txgzRNVCPAROHPQQIB9554-46-28A75:28:48 [facility] 2019-06-07 07:50:00 [id number]:50:00 [facility] ([facility])Nephrology Progress NoteREPORT#:[id number] REPORT STATUS: SignedDATE:06/07/19 TIME: 749 PATIENT: DUSTY FRANCOIS UNIT #: [id number]#: [id number] ROOM/BED: 3309-1DOB: [birth year] AGE: 58 SEX: M ATTEND: Kyung Bedoya AUTHOR: Gideon Teran MD * ALL edits or amendments must be made on the electronic/computer document * SubjectiveChief Complaint:Syncope/NSTEMI/AKIPatient reports:Yes: complaints. Comments:Patient seen and evaluated, discussed with care team, HPI no change from initial, nauseated Review of SystemsConstitutional:Yes fatigue, No chills, No feverSkin:No abrasion, No bruisingAllergy/Immun:No hives, No itchingEyes:No redness, No dischargeENT:No ear drainage, No ear ringingRespiratory:Yes non productive cough, Yes SOBCardiovascular:No palpitationsGI:Yes nausea, Yes vomiting, No abdominal pain Objective GeneralVS/I O:Vital Signs:Date Time Temp Pulse Resp B/P B/P Pulse O2 O2 Flow FiO2 Mean Ox Delivery Rate06/07 0600 102 28 151/75 108 9506/ 0500 94 19 128/76 97 0400 37.3 96 20 125/56 81 0300 87 15 113/53 76 9806/ 0200 87 28 111/51 74 0130 98 High flow 8.613223 nasal /24 0100 87 17 109/51 74 0000 89 15 101/46 67 2300 90 20 100/51 67 2200 102 20 144/84 109 2101 100 High flow 10.341728 nasal oqrhhrf70/23 2100 104 17 147/79 106 2030 108 23 165/72 103 2001 36.9 104 19 187/98 133 1930 High flow 12.581007 nasal /23 1900 104 16 164/90 119 1830 103 20 161/93 120 1800 101 26 152/94 116 1700 101 20 150/79 106 1600 37.0 99 16 162/91 118 1500 101 18 170/106 132 1430 100 20 158/86 115 1400 103 19 162/88 119 1300 98 21 141/88 108 1230 98 21 141/78 104 1200 36.8 97 18 138/77 102 1130 96 28 149/85 111 1105 97 19 146/94 116 / 1000 91 27 139/85 106 0930 93 24 164/130 144 0900 95 24 171/95 127 9906/06 0830 96 19 158/93 120 0800 High flow 11.161011 nasal /23 0800 37.3 94 24 160/98 123 99 24 hour I O ending at 0700: 06/07 0700 06/06 1900 Intake Total 500.00 Output Total 1000 Balance -500.00 Intake, IV 450.00 Intake, Oral 50 Output, Urine 1000 MedicationsActive Meds + DC'd Last 24 HrsCarvedilol 12.5 MG BID@0900,2100 PO Amlodipine Besylate 5 MG DAILY PO Hydralazine HCl 10 MG Q6H PRN PRN IV Sodium Bicarbonate 75 ML .[id number] IV (CKD) Sodium Chloride 1,000 MLPerflutren Protein Type A Microsphe 0 .STK-MED ONE IV (DC) Sodium Chloride 1,000 ML .[id number] IV (DC) Lactulose 20 GM ONCE ONE PO (DC) Metoclopramide HCl 10 MG Q8H IV Lactulose 20 GM ONCE ONE PO (DC) Sodium Polystyrene Sulfonate 30 GM Q4H PO (DC) Sodium Chloride 10 ML ASDIR PRN IV Pantoprazole Sodium 40 MG DAILY IV Promethazine HCl 25 MG Q8H PRN PRN IM Furosemide 40 MG BID 9A 5P IV (DC) Diphenhydramine HCl 25 MG Q6H PRN PRN PO Albuterol/Ipratropium 3 ML RTQ4H PRN PRN INH Azithromycin 500 MG Q24H IV Sodium Chloride 250 MLBenzonatate 100 MG Q6H PRN PRN PO Ceftriaxone Sodium 1,000 MG Q24H IV Sodium Chloride 100 MLAspirin 81 MG DAILY PO Dextrose/Water 125 ML ASDIR PRN IV Dextrose/Water 250 ML ASDIR PRN IV Glucagon 1 MG ASDIR PRN IM Insulin Glargine 10 UNIT Q12HR SUBQ Al Hydrox/Mg Hydrox/Simethicone 30 ML Q4H PRN PRN PO Docusate Sodium 100 MG BID PRN PRN PO Ergocalciferol 50,000 INTL.UNITS Q7D PO (CKD) Hydrocodone Bitart/Acetaminophen 1 TAB Q6H PRN PRN PO Insulin Human Lispro 0 AC HS SUBQ Lactulose 20 GM Q6H PRN PRN PO Mupirocin 1 APPLIC BID NASAL Ondansetron HCl 4 MG Q4H PRN PRN IV Potassium Chloride 40 MEQ DAILY PRN PRN PO Ticagrelor 90 MG BID PO Zolpidem Tartrate 5 MG BEDTIME PRN PRN PO Acetaminophen 650 MG Q6H PRN PRN PO Atropine Sulfate 0.5 MG ASDIR PRN IV Atorvastatin Calcium 80 MG DAILY 1700 PO (DA) Metoprolol Tartrate 25 MG BID PO (DC) Morphine Sulfate 2 MG Q3H PRN PRN IV Physical ExamGeneral appearance: alert, no acute distressHead/eyes: atraumatic, normocephalicENT: moist mucous membranes, normal noseNeck: supple/no meningismusCardiovascular: normal heart sounds, no rubRespiratory: aerating well, no distressAbdomen: non-tender, softGenitourinary: no flank pain, no foleyExtremities: non-tender, no edemaMusculoskeletal: no tenderenessNeuro/VACUUM FILTER OPERATOR: alert, normal speechSkin: dry, intact ResultsFindings/Data:Laboratory Tests 06/07 06/06 06/06 06/06 06/06 0657 2101 1647 1618 1127 Chemistry Sodium (134 - 147 mEq/L) 141 137 Potassium (3.4 - 5.0 mEq/L) 4.3 5.2 H Chloride (100 - 108 mEq/L) 109 H 110 H Carbon Dioxide (21 - 33 mEq/L) 22 18 L Anion Gap (0 - 20) 14 14 BUN (7 - 18 mg/dL) 57 H 55 H Creatinine (0.6 - 1.3 mg/dL) 3.6 H 3.7 H Glomerular Filtr Rate (90 - 95) 21.3 L 20.7 L Glucose (70 - 110 mg/dL) 121 H 101 POC Glucose (70 - 110 MG/DL) 96 87 156 H Calcium (8.0 - 10.5 mg/dL) 8.5 8.2 Phosphorus (2.5 - 4.9 mg/dL) 3.9 Magnesium (1.8 - 2.4 mg/dL) 2.50 H Laboratory Tests 06/07 0450 Hematology WBC (4.5 - 11.0 x10 3/uL) 10.89 RBC (4.00 - 5.60 x10 6/uL) 3.10 L Hgb (12.5 - 16.9 g/dL) 8.4 L Hct (37.5 - 50.7 %) 26.1 L MCV (81.0 - 99.0 fL) 84.2 MCH (27.0 - 33.0 pg) 27.1 MCHC (33.0 - 37.0 g/dL) 32.2 L RDW (11.5 - 14.5 %) 14.1 Plt Count (150 - 400 x10 3/uL) 330 MPV (7.0 - 9.0 fL) 10.8 H Neut % (Auto) (56.0 - 77.0 %) 79.3 H Lymph % (Auto) (14.0 - 32.0 %) 11.9 L Highland % (Auto) (4.8 - 9.0 %) 7.7 Eos % (Auto) (0.3 - 3.7 %) 0.1 L Baso % (Auto) (0.0 - 2.0 %) 0.1 Neut # (Auto) (2.0 - 7.6 x10 3/uL) 8.63 H Lymph # (Auto) (1.0 - 3.8 x10 3/uL) 1.30 [place]land # (Auto) (0.1 - 0.8 x10 3/uL) 0.84 H Eos # (Auto) (0.0 - 0.2 x10 3/uL) 0.01 Baso # (Auto) (0.0 - 0.2 x10 3/uL) 0.01 Abs Immat Gran (auto) (0.00 - 0.03 x10 3/uL) 0.10 H Add Manual Diff NO Immature Gran % (0.0 - 2.0 %) 0.9 Nucleated RBC % (0 - 0 %) 0.0 Nucleated RBCs # (Man) (0.0 - 0.1 x10 3/uL) 0.00 Laboratory Tests 06/06 1120 Urines Urine Color (YEL/STRAW) YELLOW Urine Appearance (CLEAR) SL CLOUDY Urine pH (5.0 - 7.0) 5.0 Ur Specific Center Line (1.005 - 1.030) 1.011 Urine Protein (NEGATIVE) 2+ H Urine Glucose (UA) (NEGATIVE) NEGATIVE Urine Ketones (NEGATIVE) NEGATIVE Urine Blood (NEGATIVE) 2+ H Urine Nitrite (NEGATIVE) NEGATIVE Urine Bilirubin (NEGATIVE) NEGATIVE Urine Urobilinogen (0.2 - 1.0 mg/dL) 0.2 Ur Leukocyte Esterase (NEGATIVE) NEGATIVE Urine RBC (0 - 3 RBC/HPF) 4-10 Urine WBC (0 - 3 WBC/HPF) 0-3 Ur Squamous Epith Cells (NONE SEEN /HPF) NONE SEEN Urine Bacteria (NONE SEEN /HPF) NONE SEEN Hyaline Casts (NONE SEEN /LPF) 6-10 Urine Mucus (NONE SEEN /LPF) TRACE Ur Random Creatinine (mg/dL) 103.0 U Random Total Protein (mg/dL) 124 Diagnosis, Assessment PlanFree Text A P:Patient seen and evaluated, discussed with care team, Images and laboratory reviewedHistory of HTN: metoprolol: Monitor BP closely and adjust medications as neededDM: insulin: Monitor BS closely and adjust medications as neededHLD: LipitorCAD s/p NSTEMI , s/p LHC and LAD/LCX PCI: ASA/TicagrelorPNA: Rocephin/AzithromaxSOB with elevated BNP, he has no LE edema, his SOB could be mainly related to his PNA, he is nauseated and eating, would hold off diuretcis if possibleAKI felisha related to CINHis baseline creat 1.2 in Sep 2018, eGFR 80 , felisha had some progression since then, check UA, urine P/creat ratio and renal USAcidosis: pH this AM 7.287/ Creat 3.6 stable, K WNL4.3, HCO3 22 better, renal US WNL at 0915 RPT #:[id number] OF REPORTPRProgress [id number]:50:00G.[id number] le for patient [id number]:15:19 [facility] 2019-06-06 17:35:00 [id number]:35:00 H [facility] ([facility])Cardiology Progress NoteREPORT#:[id number] REPORT STATUS: SignedDATE:06/06/19 TIME: 1735 PATIENT: DUSTY FRANCOIS UNIT #: [id number]#: [id number] [place] [facility] [place]DOB: [birth year] AGE: 58 SEX: M ATTEND: Kyung Bedoya [facility] AUTHOR: Yvette Rae MD * ALL edits or amendments must be made on the electronic/computer document * SubjectiveChief Complaint:Elevated troponinPatient reports:No: chest pain, palpitations, shortness of breath (nausea improved with reglan). Objective Physical ExamGeneral appearance: alert, awake, oriented, no acute distressHead/Eyes: atraumatic, normocephalicENT: moist mucosal membranesNeck: non-tender, supple/no meningismus, no JVD, no lymphadenopathy, no masses or swellingCardiovascular: CV assessment: regular rate and rhythm, normal heart soundsRespiratory: clear to auscultation, no distressAbdomen: soft, non-tender, normal bowel soundsGenitourinary: no bladder distentionUpper extremity: UE assessment: no clubbing, no cyanosisLower extremity: LE assessment: no clubbing, no cyanosis, no edemaMusculoskeletal: full range of motionNeuro/VACUUM FILTER OPERATOR: alert, oriented X 3Skin: dry, intactPsychiatry: normal affect ResultsFindings/Data:Laboratory Tests 06/06 0205 Blood Gas Puncture Site R Rad ABG pH (7.35 - 7.45) 7.282 L ABG pCO2 (35 - 45 mmHg) 34.6 L ABG pO2 (80 - 100 mmHg) 66 L ABG HCO3 (22.0 - 26.0 mmol/L) 16.3 L ABG Total CO2 17 ABG O2 Saturation (90 - 100 %) 90 ABG Base Excess (-4 - 4 mmol/L) -10.0 L Temperature (F) 98.8 O2 Delivery Device Hi-himanshu Can Laboratory Tests 06/06 06/06 06/06 06/06 06/06 1647 1618 1127 0733 0447 Chemistry Sodium (134 - 147 mEq/L) 137 138 Potassium (3.4 - 5.0 mEq/L) 5.2 H 5.4 H Chloride (100 - 108 mEq/L) 110 H 107 Carbon Dioxide (21 - 33 mEq/L) 18 L 20 L Anion Gap (0 - 20) 14 16 BUN (7 - 18 mg/dL) 55 H 49 H Creatinine (0.6 - 1.3 mg/dL) 3.7 H 3.6 H Glomerular Filtr Rate (90 - 95) 20.7 L 21.3 L Glucose (70 - 110 mg/dL) 101 190 H POC Glucose (70 - 110 MG/DL) 87 156 H 217 H Calcium (8.0 - 10.5 mg/dL) 8.2 8.3 Magnesium (1.8 - 2.4 mg/dL) 2.30 06/06 06/06 06/05 06/05 0350 0350 2024 2024 Chemistry Sodium (134 - 147 mEq/L) 139 Potassium (3.4 - 5.0 mEq/L) 4.9 Chloride (100 - 108 mEq/L) 109 H Carbon Dioxide (21 - 33 mEq/L) 22 Anion Gap (0 - 20) 13 BUN (7 - 18 mg/dL) 45 H Creatinine (0.6 - 1.3 mg/dL) 3.4 H Glomerular Filtr Rate (90 - 95) 22.8 L Glucose (70 - 110 mg/dL) 131 H Lactic Acid (0.4 - 1.9 mmol/L) 1.6 Calcium (8.0 - 10.5 mg/dL) 8.0 Total Creatine Kinase (35 - 232) 1586 *H CK-MB (CK-2) (0 - 5.0 ng/mL) 19.1 *H Troponin I (0.000 - 0.045 ng/mL) 53.500 *H B-Natriuretic Peptide (0 - 100 PG/ML) 1010.0 H Procalcitonin (0.00 - 0.05 ng/mL) 3.42 H Laboratory Tests 06/06 035 Hematology WBC (4.5 - 11.0 x10 3/uL) 15.23 H RBC (4.00 - 5.60 x10 6/uL) 3.87 L Hgb (12.5 - 16.9 g/dL) 10.5 L Hct (37.5 - 50.7 %) 33.1 L MCV (81.0 - 99.0 fL) 85.5 MCH (27.0 - 33.0 pg) 27.1 MCHC (33.0 - 37.0 g/dL) 31.7 L RDW (11.5 - 14.5 %) 14.1 Plt Count (150 - 400 x10 3/uL) 361 MPV (7.0 - 9.0 fL) 10.2 H Neut % (Auto) (56.0 - 77.0 %) 90.0 H Lymph % (Auto) (14.0 - 32.0 %) 4.7 L Highland % (Auto) (4.8 - 9.0 %) 3.9 L Eos % (Auto) (0.3 - 3.7 %) 0.0 L Baso % (Auto) (0.0 - 2.0 %) 0.1 Neut # (Auto) (2.0 - 7.6 x10 3/uL) 13.70 H Lymph # (Auto) (1.0 - 3.8 x10 3/uL) 0.71 L [place]land # (Auto) (0.1 - 0.8 x10 3/uL) 0.60 Eos # (Auto) (0.0 - 0.2 x10 3/uL) 0.00 Baso # (Auto) (0.0 - 0.2 x10 3/uL) 0.02 Abs Immat Gran (auto) (0.00 - 0.03 x10 3/uL) 0.20 H Add Manual Diff NO Immature Gran % (0.0 - 2.0 %) 1.3 Nucleated RBC % (0 - 0 %) 0.0 Nucleated RBCs # (Man) (0.0 - 0.1 x10 3/uL) 0.00 Laboratory Tests 06/06 1120 Urines Urine Color (YEL/STRAW) YELLOW Urine Appearance (CLEAR) SL CLOUDY Urine pH (5.0 - 7.0) 5.0 Ur Specific Center Line (1.005 - 1.030) 1.011 Urine Protein (NEGATIVE) 2+ H Urine Glucose (UA) (NEGATIVE) NEGATIVE Urine Ketones (NEGATIVE) NEGATIVE Urine Blood (NEGATIVE) 2+ H Urine Nitrite (NEGATIVE) NEGATIVE Urine Bilirubin (NEGATIVE) NEGATIVE Urine Urobilinogen (0.2 - 1.0 mg/dL) 0.2 Ur Leukocyte Esterase (NEGATIVE) NEGATIVE Urine RBC (0 - 3 RBC/HPF) 4-10 Urine WBC (0 - 3 WBC/HPF) 0-3 Ur Squamous Epith Cells (NONE SEEN /HPF) NONE SEEN Urine Bacteria (NONE SEEN /HPF) NONE SEEN Hyaline Casts (NONE SEEN /LPF) 6-10 Urine Mucus (NONE SEEN /LPF) TRACE Ur Random Creatinine (mg/dL) 103.0 U Random Total Protein (mg/dL) 124 Laboratory Tests 06/06 06/05 06/05 0445 2024 2024 Chemistry Magnesium (1.8 - 2.4 mg/dL) 2.30 CK-MB (CK-2) (0 - 5.0 ng/mL) 19.1 *H Troponin I (0.000 - 0.045 ng/mL) 53.500 *H B-Natriuretic Peptide (0 - 100 PG/ML) 1010.0 H Radiology data:Recent Impressions:RADIOLOGY - XR CHEST 1 V 06/06 0535 Report Impression - Status: SIGNED Entered: 06/06/2019 0548 IMPRESSION:1. Worsening airspace opacities in the perihilar right midlung andmedial right lung base, concerning for pneumonia. SL: 131Impression By: Daniela Griffith M.D.CAT SCAN - CT CHEST W/O CONTRAST 06/06 1044 Report Impression - Status: SIGNED Entered: 06/06/2019 1113 IMPRESSION: 1. Bilateral predominantly central pulmonary opacities. Differentialconsiderations include edema and multifocal pneumonia.2. Small bilateral pleural effusions.3. Cardiomegaly. SL: [id number] By: [email or web address] Veronica Anne M.D.ULTRASOUND - DUP VEIN ALEJANDRA 06/06 1651 Report Impression - Status: SIGNED Entered: 06/06/2019 1651 IMPRESSION: Negative bilateral lower extremity venous Doppler without evidence ofdeep vein thrombosis. SL: [id number] By: [email or web address] - Amadou Vizcaino M.D. Review of SystemsAll systems rev neg: except as marked Diagnosis, Assessment Plan Free Text DxA P NotesFree Text DxA P Notes:This is a 58-year-old male with history of peripheralarterial disease and hypertension, who presents with the syncopal episode. Thepatient ruled in for non-ST elevation myocardial infarction. 1. Non-ST elevation myocardial infarction. - s/p cardiac catheterization-PCI to the LCX 100 occlusion,, successfully revascularized. -S/PCI to the LAD- continue aspirin 81 mg -Cont Brilinta 90 mg po BID- continue Lipitor 80 mg daily- continue metoprolol 25 mg p.o. b.i.d. 2.Pulmonary edema:Pt is complaining of worsening SOB, he had received >2L NS for his CKD- CXR: worsening of the infiltrate- CT chest: pulmonary opacities either edema or pneumonia- BNP 1010- ECHO ordered to to determine IVC size- Hold lasix for now and reevaluate in tomorrow 3. Possible aspiration PNA- due to results of CT chest. 4. Hyperlipidemia. - Lipitor 80 mg daily. 5. Hypertension. - BP controlled - Continue with the metoprolol now 25 mg p.o. b.i.d. at 1744 RPT #:[id number] OF REPORTPRProgress [id number]:35:00G.[id number] for patient [id number]:44:21 [facility] 2019-06-06 16:27:00 [id number]:27:00 [facility] Prog. NoteREPORT#:[id number] REPORT STATUS: SignedDATE:06/06/19 TIME: 1626 PATIENT: DUSTY FRANCOIS UNIT #: [id number]#: [id number] [address] [birth year] AGE: 58 SEX: M ATTEND: Kyung Bedoya AUTHOR: Kyung Bedoya MD * ALL edits or amendments must be made on the electronic/computer document * SubjectiveChief Complaint:C/O FEVER COUGH SPO2 DROPED NO CHESTPAINPatient reports: chest pain, cough Review of SystemsConstitutional:Reports: generalized weakness. Skin:Denies: abrasion, bruising, contusion, diaphoresis, ecchymosis, itching, laceration, rash, swelling, other. Allergy/Immun:Denies: allergic reaction, anaphylaxis, hives, itching, rhinorrhea, sneezing, other. Eyes:Denies: redness, discharge, visual loss/blurred, itching, diplopia, eye pain, photophobia, swelling, other. Respiratory:Reports: productive cough (sputum), SOB. Cardiovascular:Reports: orthopnea. GI:Denies: abdominal pain, anorexia, constipation, diarrhea, dysphagia, GERD, hematemesis, hematochezia, hiatal hernia, melena, nausea, rectal pain, vomiting,other. Musculoskeletal:Denies: arthritis, extremity pain, extremity swelling, joint pain, joint swelling, lumbar pain, myalgias, neck pain, thoracic pain, other. Neuro:Reports: weakness. Objective GeneralVS/I O:Vital SignsDate Temp Pulse Resp B/P B/P Mean Pulse Ox QeN423/22-06/06 98.8-99.1 91-111 10-34 110-180/65-130 84-144 88-100 70 Last Documented: Result Date Time Pulse Ox 100 06/06 1500 B/P 170/106 06/06 1500 B/P Mean 132 06/06 1500 Pulse 101 06/06 1500 Resp 18 06/06 1500 O2 Delivery High flow nasal cannula 06/06 0800 O2 Flow Rate 11.918796 06/06 0800 Temp 99.1 06/06 0800 FiO2 70 06/06 0215 24 hour I O ending at 0700: 06/06 0700 06/05 1900 Intake Total 467.00 1354.00 Output Total 475 300 Balance -8.00 1054.00 Intake, IV 407.00 1254.00 Intake, Oral 60 100 Output, Emesis Output, Urine 475 300 Patient 84 kg Weight Weight Bed scale Measurement Method Patient Weight Weight (lb): 185Weight (oz): 3.01Weight (kg): 84.000 Medications:Active Meds + DC'd Last 24 HrsPerflutren Protein Type A Microsphe 0 .STK-MED ONE IV (DC) Sodium Chloride 1,000 ML .[id number] IV Lactulose 20 GM ONCE ONE PO (DC) Metoclopramide HCl 10 MG Q8H IV Lactulose 20 GM ONCE ONE PO (DC) Sodium Polystyrene Sulfonate 30 GM Q4H PO (DC) Metoclopramide HCl 10 MG ONCE ONE IV (DC) Metoclopramide HCl 5 MG Q8H IV (DC) Sodium Chloride 10 ML ASDIR PRN IV Pantoprazole Sodium 40 MG DAILY IV Promethazine HCl 25 MG Q8H PRN PRN IM Furosemide 80 MG ONCE ONE IV (DC) Furosemide 40 MG BID 9A 5P IV Furosemide 40 MG ONCE ONE IV (CAN) Diphenhydramine HCl 25 MG Q6H PRN PRN PO Albuterol/Ipratropium 3 ML RTQ4H PRN PRN INH Azithromycin 500 MG Q24H IV Sodium Chloride 250 MLBenzonatate 100 MG Q6H PRN PRN PO Ceftriaxone Sodium 1,000 MG Q24H IV Sodium Chloride 100 MLAspirin 81 MG DAILY PO Dextrose/Water 125 ML ASDIR PRN IV Dextrose/Water 250 ML ASDIR PRN IV Glucagon 1 MG ASDIR PRN IM Sodium Chloride 1,000 ML .[id number] IV (DC) Insulin Glargine 10 UNIT Q12HR SUBQ Al Hydrox/Mg Hydrox/Simethicone 30 ML Q4H PRN PRN PO Docusate Sodium 100 MG BID PRN PRN PO Ergocalciferol 50,000 INTL.UNITS Q7D PO (CKD) Hydrocodone Bitart/Acetaminophen 1 TAB Q6H PRN PRN PO Insulin Human Lispro 0 AC HS SUBQ Lactulose 20 GM Q6H PRN PRN PO Mupirocin 1 APPLIC BID NASAL Ondansetron HCl 4 MG Q4H PRN PRN IV Potassium Chloride 40 MEQ DAILY PRN PRN PO Ticagrelor 90 MG BID PO Zolpidem Tartrate 5 MG BEDTIME PRN PRN PO Acetaminophen 650 MG Q6H PRN PRN PO Atropine Sulfate 0.5 MG ASDIR PRN IV Sodium Chloride 500 ML ASDIR PRN IV (DC) Atorvastatin Calcium 80 MG DAILY 1700 PO (DA) Metoprolol Tartrate 25 MG BID PO Morphine Sulfate 2 MG Q3H PRN PRN IV Physical ExamGeneral appearance: alert, awake, orientedHead/Eyes: atraumatic, EOMINeck: non-tender, supple/no meningismusCardiovascular: normal heart sounds, regular rate rhythmRespiratory: crackles, decreased breath sounds, shortness of breathAbdomen: soft, no distentionNeuro/VACUUM FILTER OPERATOR: alert, oriented x 3 ResultsFindings/Data:Laboratory Tests 06/06/19 0445:[Embedded Image Not Available] 06/06/19 0350:[Embedded Image Not Available] 06/05/192024:[Embedded Image Not Available]Laboratory Tests 06/06 0205 Blood Gas Puncture Site R Rad ABG pH (7.35 - 7.45) 7.282 L ABG pCO2 (35 - 45 mmHg) 34.6 L ABG pO2 (80 - 100 mmHg) 66 L ABG HCO3 (22.0 - 26.0 mmol/L) 16.3 L ABG Total CO2 17 ABG O2 Saturation (90 - 100 %) 90 ABG Base Excess (-4 - 4 mmol/L) -10.0 L Temperature (F) 98.8 O2 Delivery Device Hi-himanshu Can Laboratory Tests 06/06 06/06 06/06 06/06 06/06 1127 0733 0445 0350 0350 Chemistry Sodium (134 - 147 mEq/L) 138 Potassium (3.4 - 5.0 mEq/L) 5.4 H Chloride (100 - 108 mEq/L) 107 Carbon Dioxide (21 - 33 mEq/L) 20 L Anion Gap (0 - 20) 16 BUN (7 - 18 mg/dL) 49 H Creatinine (0.6 - 1.3 mg/dL) 3.6 H Glomerular Filtr Rate (90 - 95) 21.3 L Glucose (70 - 110 mg/dL) 190 H POC Glucose (70 - 110 MG/DL) 156 H 217 H Lactic Acid (0.4 - 1.9 mmol/L) 1.6 Calcium (8.0 - 10.5 mg/dL) 8.3 Magnesium (1.8 - 2.4 mg/dL) 2.30 Procalcitonin (0.00 - 0.05 ng/mL) 3.42 H 06/05 164 Chemistry Sodium (134 - 147 mEq/L) 139 Potassium (3.4 - 5.0 mEq/L) 4.9 Chloride (100 - 108 mEq/L) 109 H Carbon Dioxide (21 - 33 mEq/L) 22 Anion Gap (0 - 20) 13 BUN (7 - 18 mg/dL) 45 H Creatinine (0.6 - 1.3 mg/dL) 3.4 H Glomerular Filtr Rate (90 - 95) 22.8 L Glucose (70 - 110 mg/dL) 131 H POC Glucose (70 - 110 MG/DL) 120 H Calcium (8.0 - 10.5 mg/dL) 8.0 Total Creatine Kinase (35 - 232) 1586 *H CK-MB (CK-2) (0 - 5.0 ng/mL) 19.1 *H Troponin I (0.000 - 0.045 ng/mL) 53.500 *H B-Natriuretic Peptide (0 - 100 PG/ML) 1010.0 H Laboratory Tests 06/06 0350 Hematology WBC (4.5 - 11.0 x10 3/uL) 15.23 H RBC (4.00 - 5.60 x10 6/uL) 3.87 L Hgb (12.5 - 16.9 g/dL) 10.5 L Hct (37.5 - 50.7 %) 33.1 L MCV (81.0 - 99.0 fL) 85.5 MCH (27.0 - 33.0 pg) 27.1 MCHC (33.0 - 37.0 g/dL) 31.7 L RDW (11.5 - 14.5 %) 14.1 Plt Count (150 - 400 x10 3/uL) 361 MPV (7.0 - 9.0 fL) 10.2 H Neut % (Auto) (56.0 - 77.0 %) 90.0 H Lymph % (Auto) (14.0 - 32.0 %) 4.7 L [place]land % (Auto) (4.8 - 9.0 %) 3.9 L Eos % (Auto) (0.3 - 3.7 %) 0.0 L Baso % (Auto) (0.0 - 2.0 %) 0.1 Neut # (Auto) (2.0 - 7.6 x10 3/uL) 13.70 H Lymph # (Auto) (1.0 - 3.8 x10 3/uL) 0.71 L [place] # (Auto) (0.1 - 0.8 x10 3/uL) 0.60 Eos # (Auto) (0.0 - 0.2 x10 3/uL) 0.00 Baso # (Auto) (0.0 - 0.2 x10 3/uL) 0.02 Abs Immat Gran (auto) (0.00 - 0.03 x10 3/uL) 0.20 H Add Manual Diff NO Immature Gran % (0.0 - 2.0 %) 1.3 Nucleated RBC % (0 - 0 %) 0.0 Nucleated RBCs # (Man) (0.0 - 0.1 x10 3/uL) 0.00 Laboratory Tests 06/06 1120 Urines Urine Color (YEL/STRAW) YELLOW Urine Appearance (CLEAR) SL CLOUDY Urine pH (5.0 - 7.0) 5.0 Ur Specific Center Line (1.005 - 1.030) 1.011 Urine Protein (NEGATIVE) 2+ H Urine Glucose (UA) (NEGATIVE) NEGATIVE Urine Ketones (NEGATIVE) NEGATIVE Urine Blood (NEGATIVE) 2+ H Urine Nitrite (NEGATIVE) NEGATIVE Urine Bilirubin (NEGATIVE) NEGATIVE Urine Urobilinogen (0.2 - 1.0 mg/dL) 0.2 Ur Leukocyte Esterase (NEGATIVE) NEGATIVE Urine RBC (0 - 3 RBC/HPF) 4-10 Urine WBC (0 - 3 WBC/HPF) 0-3 Ur Squamous Epith Cells (NONE SEEN /HPF) NONE SEEN Urine Bacteria (NONE SEEN /HPF) NONE SEEN Hyaline Casts (NONE SEEN /LPF) 6-10 Urine Mucus (NONE SEEN /LPF) TRACE Ur Random Creatinine (mg/dL) 103.0 U Random Total Protein (mg/dL) 124 Radiology data:Recent Impressions:RADIOLOGY - XR CHEST 1 V 06/05 1728 Report Impression - Status: SIGNED Entered: 06/05/2019 1737 IMPRESSION:1. Mild bilateral parahilar infiltrates have developed sinceyesterday. Edema and pneumonia are both possible.2. Otherwise unremarkable exam. SL:01Impression By: Joel Lim M.D.RADIOLOGY - XR CHEST 1 V 06/06 0535 Report Impression - Status: SIGNED Entered: 06/06/2019 0548 IMPRESSION:1. Worsening airspace opacities in the perihilar right midlung andmedial right lung base, concerning for pneumonia. SL: 131Impression By: Francisco Myles.D.CAT SCAN - CT CHEST W/O CONTRAST 06/06 1044 Report Impression - Status: SIGNED Entered: 06/06/2019 1113 IMPRESSION: 1. Bilateral predominantly central pulmonary opacities. Differentialconsiderations include edema and multifocal pneumonia.2. Small bilateral pleural effusions.3. Cardiomegaly. SL: [id number] By: [email or web address] - Amadeo Anne M.D. Diagnosis, Assessment PlanHospital course to date:1. ACUTE CORONARY SYNDROME - S/P PCI TO MID CIRCUMFLEX .LAD , ON ASA ,BRILANTA ,METOPROLOL,, PLANS FOR STAGED PCT TO RCA LATER/WILL HOLD STATIN FOR MYELGIA AND ELEVATED CK FOR NOW 2,SUBACUTE CVA - NEURO FU 3.HYPOXIA DUE TO PULMO EDEMA -STARTED LASIX 4..PNA -CULTURES SEND -STARTED ROCEPHIN /AZITHROMYCIN 5.BRENDA - ON LASIX ,EXPECTED TO INCREASE , MONITOR ,HOLD IVF FOR NOW ,NEPHROLOGY EVALUATION 6.DM -UNCONCONTROLED -HBA1C 9.1 -ON LANTUS ,HUMOLOG 7.PAD DVT/GI PROPHYLAXIS at 1628 RPT #:[id number] OF REPORTPRProgress Otlx1867-99-79H80:27:00G.[id number] le for patient omvvIUICZAGUUYHPYP5994-60-99M93:29:20 [facility] 2019-06-06 10:28:00 [id number]:28:00 [facility] ([facility])Clinical NoteREPORT#:[id number] REPORT STATUS: SignedDATE:06/06/19 TIME: 1028 PATIENT: DUSTY FRANCOIS UNIT #: [id number]#: [id number] [place]OM[place]ED[place] [facility] [place]-1DOB: [birth year] AGE: 58 SEX: M ATTEND: Kyung Bedoya AUTHOR: Koko Chung MEDICATION ADMINISTRATION PROFESSIONAL * ALL edits or amendments must be made on the electronic/computer document * Clinical NoteNote:Pulmonary consult # [id number] at 1028 RPT #:[id number] OF REPORTCLClinical noae5313-81-57G03:28:00G.[id number] le for patient fzkgDCCPLINAOKCKWG4781-94-28J93:29:02 [facility] 2019-06-06 10:28:00 [id number]:28:00 H [facility] ([facility])Clinical NoteREPORT#:[id number] REPORT STATUS: SignedDATE:06/06/19 TIME: 1028 PATIENT: DUSTY FRANCOIS UNIT #: [id number]#: [id number] [address] [birth year] AGE: 58 SEX: M ATTEND: Kyung Bedoya [facility] AUTHOR: Koko Chung MEDICATION ADMINISTRATION PROFESSIONAL * ALL edits or amendments must be made on the electronic/computer document * Koko Chung 06/06/19 1028:Clinical NoteNote:Pulmonary consult # [id number] Antoine Lee 06/08/19 1027:Clinical NoteNote:Agree with the findings and plan as documented by MEDICATION ADMINISTRATION PROFESSIONAL: as abovereviewedpt seen and examineddw RN at 1028 at 1027 RPT #:[id number] OF REPORTCLClinical covq6083-96-58O30:28:00G.UVDB48661737-9039QNRazodry le for patient swfnONNGWFBRTKQOGZ3322-20-65M13:27:48 [facility] 2019-06-06 10:28:00 [id number]:28:0007 [id number] [place] [id number] PATIENT NAME: DUSTY FRANCOIS ADMIT DATE: 06/04/19ACCOUNT NO: [id number] ROOM NO: 6606 AGE: 58 REPORT TYPE: CONSULTATION REPORT SEX: M ADMITTING PHYSICIAN:Kyung Bedoya MD ATTENDING PHYSICIAN:Kyung Bedoya MD CONSULTATION DATE: CONSULTING PHYSICIAN: Antoine Lee MD PULMONARY CONSULTATION REQUESTING PHYSICIAN: Kyung Bedoya MD CHIEF COMPLAINT: Shortness of breath, pneumonia, and hypoxia. HISTORY OF PRESENT ILLNESS: This is a 58-year-old male with a past medicalhistory of hypertension, diabetes, and hyperlipidemia, came to the EmergencyRoom originally with syncope episode. The patient was landed on the left sideafter he had episode of syncope and collapse. He was diaphoretic andcomplaining of the left shoulder pain, knee pain, and swelling. He came to theEmergency Room and he had multiple imaging studies including knee x-ray,shoulder x-ray, MRI of brain, and CT of brain. He was found to have a subacuteinfarction on the MRI of the brain. His chest x-ray yesterday morning revealedpneumonia in the right upper lobe and middle lobe. He was very hypoxic and wewere consulted for the management of the hypoxia, shortness of breath, andpneumonia. The patient was on BiPAP last night. Currently, he is on 11 litersnasal cannula. His oxygen saturation is 95% to 97%. He is complaining of a drycough, but denies any wheezing or crackles. He denies any nausea or vomiting atthis time. ALLERGIES: NO KNOWN ALLERGIES. PAST MEDICAL HISTORY: Hypertension, hyperlipidemia, and diabetes. PAST SURGICAL HISTORY: Unremarkable. FAMILY HISTORY: Noncontributory to the illness. SOCIAL HISTORY: Denies any smoking, drinking, or use of illicit drugs. MEDICATIONS: Per MAR. REVIEW OF SYSTEMS: All 14-point systems reviewed. Pertinent positives andnegatives are listed in HPI as above, otherwise negative. PHYSICAL EXAMINATION:GENERAL: The patient is awake, alert, and oriented, following command.VITAL SIGNS: Blood pressure is 164/130, pulse is 93, temperature is 37.1, PATIENT NAME: DUSTY FRANCOIS [id number] [place], [place] [address] PATIENT NAME: DUSTY FRANCOIS ADMIT DATE: 06/04/19ACCOUNT NO: [id number] ROOM NO: G.6606 AGE: 58 REPORT TYPE: CONSULTATION REPORT SEX: M ADMITTING PHYSICIAN:Kyung Bedoya MD ATTENDING PHYSICIAN:Kyung Bedoya MD respiratory rate 24, and oxygen saturation 97% to 99% on 11 liter nasal cannula.HEENT: Normocephalic and atraumatic.NECK: Supple. No JVD.CARDIOVASCULAR: Tachycardic, S1 and S2 present.RESPIRATORY: Diminished on the right lobe. No wheezing. No crackle. Thepatient is on high flow nasal cannula. No signs of using accessory muscles tobreathe. Nonproductive cough.GASTROINTESTINAL: Abdomen is soft, round, and nontender. Bowel sounds arepresent.GENITOURINARY: Able to void.MUSCULOSKELETAL: No signs of clubbing or cyanosis.ENDOCRINE: Stable.PSYCHIATRIC: Stable. LABORATORY DATA: WBC 15,000, RBC 3.87, hemoglobin 10.5, hematocrit 33.1, andplatelets 361. Chemistry; sodium is 138, potassium 5.4, chloride 107, carbondioxide 20, anion gap is 16, BUN is 49, creatinine is 3.6, glucose is 190,calcium is 8.3, and magnesium is 2.30. Coagulation study; INR pending. Urinalysis pending. Blood gases, ABG; pH 7.28, pCO2 of 34.6, pO2 66, and bicarbis 16.3. IMAGING STUDIES: Chest x-ray revealed right upper lobe and mid lobe pneumonia. Carotid Doppler study is negative for any acute stenosis. MRI of brain,suspecting the subacute infarction without any hemorrhage. Shoulder x-ray isnegative for any acute abnormality. Knee x-ray is also negative. ASSESSMENT:1. Acute hypoxic respiratory failure secondary to pneumonia.2. Right upper and middle lobe pneumonia.3. Shortness of breath and hypoxia secondary to pneumonia and fluid overload.4. Fluid overload.5. Acute kidney injury secondary to ____ medication.6. Hyperkalemia.7. Subacute infarction/cerebrovascular accident.8. History of hypertension.9. History of diabetes type 2.10. History of hyperlipidemia.11. Metabolic acidosis. PLAN:1. Admit to the ICU.2. CT chest without contrast to rule out pneumonia versus congestive heartfailure. PATIENT NAME: DUSTY FRANCOIS [id number] [address] PATIENT NAME: DUSTY FRANCOIS ADMIT DATE: 06/04/19ACCOUNT NO: [id number] ROOM NO: G.6606 AGE: 58 REPORT TYPE: CONSULTATION REPORT SEX: M ADMITTING PHYSICIAN:Kyung Bedoya MD ATTENDING PHYSICIAN:Kyung Bedoya MD 3. V/Q scan stat and the bilateral lower extremity venous Doppler study to ruleout thrombosis and pulmonary embolism.4. IV antibiotic, Rocephin and Zithromax.5. Aggressive pulmonary toilet including incentive spirometry, nebulizertreatment, and oxygen support.6. Cough medication.7. Need of sleep study to rule out sleep apnea since the patient snore andfatigue in the daytime.8. Monitor the kidney function.9. Statin and aspirin per neurologist for the cerebrovascular accident.10. Follow labs and replace as needed.11. SCD for DVT prophylaxis.12. Glycemic control, Accu-Chek a.c. and at bedtime, sliding scale, diabeticdiet.13. Monitor. After assessment, we discussed the plan with the patient and the at thebedside and answered all their questions and concerns. The patient will benefitfrom the outpatient sleep study. We will do the V/Q scan and a Doppler study torule out PE and DVT. We will continue IV antibiotic. Aggressive pulmonarytoilet for pneumonia. I would like to thank Dr. Bedoya to allow us to participate in the careof this patient. Dictated By: Koko Chung NP for Antoine Lee MD WT: CON:GTHOM/ASHISH/NTSDD: 06/06/2019 10:28:11DT: 06/06/2019 12:12:03Conf#: [id number]/DID#: [id number] Authenticated by Koko Chung On 06/06/2019 12:46:07 PM Authenticated by Antoine Lee MD On 06/12/2019 10:36:44 AM at 1037 at 1037 PATIENT NAME: DUSTY FRANCOIS :12:00G.[facility] [id number] for patient [id number]:37:25 [facility]ACL 2019-06-06 08:50:00 [id number]:50:00 [facility] ([facility] Progress NoteREPORT#:[id number] REPORT STATUS: SignedDATE:06/06/19 TIME: 0850 PATIENT: DUSTY FRANCOIS UNIT #: [id number]#: [id number] [address] [birth year] AGE: 58 SEX: M ATTEND: Kyung Bedoya MDADM AUTHOR: Marbella Haley MD * ALL edits or amendments must be made on the electronic/computer document * SubjectiveHPI:patient neurologically stable Objective Physical ExamVS:Last Documented: Result Date Time Pulse Ox 98 06/06 0830 B/P 158/93 06/06 0830 B/P Mean 120 06/06 0830 Pulse 96 06/06 0830 Resp 19 06/06 0830 O2 Delivery High flow nasal cannula 06/06 0350 O2 Flow Rate 12.439777 06/06 0350 FiO2 70 06/06 0215 Temp 37.1 06/06 0000 Patient Weight Weight (lb): 185Weight (oz): 3.01Weight (kg): 84.000 Medications:Current Home MedicationsERGOCALCIFEROL (VITAMIN D2) 50,000 UNITS PO Q7D HYDROcodone/APAP (NORCO 10/325) 1 TAB PO Q6H PRN PRN PAIN ROSUVASTATIN (CRESTOR) 40 MG PO BEDTIME INSULIN DETEMIR (LEVEMIR) 10 UNITS SUBQ Q12HR METOPROLOL TARTRATE (LOPRESSOR) 25 MG PO DAILY LISINOPRIL (ZESTRIL) 20 MG PO DAILY Active Meds + DC'd Last 24 HrsMetoclopramide HCl 10 MG Q8H IV Metoclopramide HCl 10 MG ONCE ONE IV (DC) Metoclopramide HCl 5 MG Q8H IV (DC) Sodium Chloride 10 ML ASDIR PRN IV Pantoprazole Sodium 40 MG DAILY IV Promethazine HCl 25 MG Q8H PRN PRN IM Furosemide 80 MG ONCE ONE IV (DC) Furosemide 40 MG BID 9A 5P IV Furosemide 40 MG ONCE ONE IV (CAN) Diphenhydramine HCl 25 MG Q6H PRN PRN PO Albuterol/Ipratropium 3 ML RTQ4H PRN PRN INH Azithromycin 500 MG Q24H IV Sodium Chloride 250 MLBenzonatate 100 MG Q6H PRN PRN PO Ceftriaxone Sodium 1,000 MG Q24H IV Sodium Chloride 100 MLAspirin 81 MG DAILY PO Dextrose/Water 125 ML ASDIR PRN IV Dextrose/Water 250 ML ASDIR PRN IV Glucagon 1 MG ASDIR PRN IM Sodium Chloride 1,000 ML .[id number] IV (DC) Insulin Glargine 10 UNIT Q12HR SUBQ Al Hydrox/Mg Hydrox/Simethicone 30 ML Q4H PRN PRN PO Docusate Sodium 100 MG BID PRN PRN PO Ergocalciferol 50,000 INTL.UNITS Q7D PO (CKD) Hydrocodone Bitart/Acetaminophen 1 TAB Q6H PRN PRN PO Insulin Human Lispro 0 AC HS SUBQ Lactulose 20 GM Q6H PRN PRN PO Mupirocin 1 APPLIC BID NASAL Ondansetron HCl 4 MG Q4H PRN PRN IV Potassium Chloride 40 MEQ DAILY PRN PRN PO Ticagrelor 90 MG BID PO Zolpidem Tartrate 5 MG BEDTIME PRN PRN PO Acetaminophen 650 MG Q6H PRN PRN PO Atropine Sulfate 0.5 MG ASDIR PRN IV Sodium Chloride 500 ML ASDIR PRN IV (DC) Atorvastatin Calcium 80 MG DAILY 1700 PO Metoprolol Tartrate 25 MG BID PO Morphine Sulfate 2 MG Q3H PRN PRN IV General appearance: alert, awakeHead/Eyes: atraumaticENT: moist mucosal membranesNeck: full range of motion, non-tender, supple/no meningismusCardiovascular: regular rate and rhythmRespiratory: aerating well, clear to auscultationAbdomen: non-tenderExtremities: moves allMusculoskeletal: normal inspectionNeuro/VACUUM FILTER OPERATOR: alert, oriented X 4, normal speech, EOMI, PERRL, CN II-XII intact, reflexes equal bilat, normal reflexes, no motor deficits, no sensory deficits, no cerebellar deficits Diagnosis, Assessment PlanProblem List/A P: 1. Syncope 2. CVA (cerebrovascular accident) Additional comments:patient to be on asa and statinawaiting completion of cardiac workup if arrythmia initaite anticoagulationcarotids are reasurring at 0851 RPT #:[id number] OF REPORTPRProgress [id number]:50:00G.[id number] le for patient [id number]:52:05 [facility] 2019-06-06 06:49:00 [id number]:49:00 [facility] ([facility])Nephrology Consultation NoteREPORT#:[id number] REPORT STATUS: SignedDATE:06/06/19 TIME: 0649 PATIENT: DUSTY FRANCOIS UNIT #: [id number]#: [id number] [address] AGE: 58 SEX: M ATTEND: Kyung Bedoya [facility] AUTHOR: Gideon Teran MD * ALL edits or amendments must be made on the electronic/computer document * History of Present IllnessRequesting clinician: Kevin Bedoya for consult:Inge complaint:SyncopeHPI:Patient seen and evaluated, discussed with care team, 58 year-old male with history of DM, PAD and HTN who presented to the ED s/p syncopal episode on the day of presentation. Patient stated that he was standing in the heat when he suddenly collapsed, landing on his Left side. This was associated with diaphoresis, left shoulder pain, and Left knee pain , but denied CP. He was ruled in for NSTEMI and underwent LHC and PCI to LCX and LAD on 06/04/19 , CXR concerning for right lung PNA, his Creat was 2 and increased to 3.4 last night. His BNP increased from 115 to >1000. Renal consult was requested for evaluation and management of his BRENDA History - Adult longitudinalPast medical history:Reports: Diabetes mellitus, Hypertension, Dyslipidemia. Denies: Asthma, Coronary artery disease, Transient ischemic attack. Additional medical history:PNAAdditional surgical history:Toe amputationAdditional family history:Brother and Father CADAlcohol use: Denies EtOH useDrug use: Denies recreational drugsSmoking status for patients 13 years old or older: Never SmokerMedications:Home Medications:Medication Dose/Rte/Freq Days Qty Entered Last Max Daily Dose Reviewed ERGOCALCIFEROL 50,000 UNITS PO Q7D 01/07/17 06/04/19 (VITAMIN D2) 0010 0456Strength: 50,000 UNITSCAP HYDROcodone/APAP 1 TAB PO 01/07/17 06/04/19 (NORCO 10/325) Q6H PRN PRN PAIN 0012 0456Strength: 1 TAB TAB ROSUVASTATIN (CRESTOR) 40 MG PO BEDTIME 01/07/17 06/04/19Strength: 40 MG TAB 0012 0456 INSULIN DETEMIR 10 UNITS SUBQ 09/18/18 06/04/19 (LEVEMIR) Q12HR 1951 0456Strength: 100 UNITS/MLVIAL METOPROLOL TARTRATE 25 MG PO DAILY 06/04/19 06/04/19 (LOPRESSOR) 1413 1413Strength: 25 MG TAB LISINOPRIL (ZESTRIL) 20 MG PO DAILY 06/04/19 06/04/19Strength: 20 MG TAB 1415 1415 Current Hospital Medications:Anti-Infective Agents Sig/Jean Carlos Start time Last Medication Dose Route Stop Time Status Admin Azithromycin 500 MG Q24H 06/05 1630 AC 06/05 (ZITHROMAX) IV 06/10 1629 1805 Sodium Chloride 250 ML (SODIUM CHLORIDE 0.9%) Ceftriaxone Sodium 1,000 MG Q24H 06/05 1630 AC 06/05 (ROCEPHIN 1000MG IV 06/10 1629 1809 VIAL) Sodium Chloride 100 ML (SODIUM CHLORIDE 0.9% 100 ML) Antihistamine Drugs Sig/Jean Carlos Start time Last Medication Dose Route Stop Time Status Admin Promethazine HCl 25 MG Q8H PRN PRN 06/06 0030 AC 06/06 (PHENERGAN) IM 07/06 0029 0035 Diphenhydramine HCl 25 MG Q6H PRN PRN 06/05 1945 AC 06/05 (BENADRYL) PO 07/05 194 195 Autonomic Drugs Sig/Jean Carlos Start time Last Medication Dose Route Stop Time Status Admin Albuterol/Ipratropium 3 ML RTQ4H PRN PRN 06/05 1630 AC 06/05 (DUONEB) INH 07/05 162 2307 Atropine Sulfate 0.5 MG ASDIR PRN 06/04 1415 AC (ATROPINE SULFATE IV 07/04 141 0.1MG/ML SYR) Blood Formation,Coagulation Sig/Jean Carlos Start time Last Medication Dose Route Stop Time Status Admin Ticagrelor 90 MG BID 06/04 2100 AC 06/05 (BRILINTA) PO 07/04 Cardiovascular Drugs Sig/Jean Carlos Start time Last Medication Dose Route Stop Time Status Admin Atorvastatin Calcium 80 MG DAILY 1700 06/04 0415 AC 06/05 (LIPITOR) PO 07/04 041 1806 Metoprolol Tartrate 25 MG BID 06/04 0415 AC 06/06 (LOPRESSOR) PO 07/04 0414 0612 Central Nervous System Agents Sig/Jean Carlos Start time Last Medication Dose Route Stop Time Status Admin Aspirin 81 MG DAILY 06/05 0900 AC 06/05 (ASPIRIN) PO 07/05 0859 0903 Hydrocodone Bitart/ 1 TAB Q6H PRN PRN 06/04 2100 AC Acetaminophen PO 07/04 2059 (NORCO 7.5/325 TABLET) Zolpidem Tartrate 5 MG BEDTIME PRN PRN 06/04 2100 AC 06/05 (AMBIEN) PO 07/04 Acetaminophen 650 MG Q6H PRN PRN 06/04 1415 AC 06/05 (TYLENOL) PO 07/04 1414 1611 Hydrocodone Bitart/ 1 TAB Q4H PRN PRN 06/04 1415 DC Acetaminophen PO 07/04 141 (NORCO 5/325) Morphine Sulfate 2 MG Q3H PRN PRN 06/04 0415 AC (morphine SULFATE) IV 06/18 0414 Electrolytic, Caloric, And Alex Sig/Jean Carlos Start time Last Medication Dose Route Stop Time Status Admin Sodium Chloride 10 ML ASDIR PRN 06/06 0430 AC (SODIUM CHLORIDE) IV 07/06 0429 Furosemide 80 MG ONCE ONE 06/05 2145 DC 06/05 (LASIX) IV 06/05 2146 215 Furosemide 40 MG BID 9A 5P 06/05 2030 AC 06/05 (LASIX 40 mg/4 mL IV 07/05 INJECTION) Furosemide 40 MG ONCE ONE 06/05 2015 CAN (LASIX 40 mg/4 mL IV 06/05 2016 INJECTION) Dextrose/Water 125 ML ASDIR PRN 06/05 08 AC (DEXTROSE 10% IN IV 07/05 814 WATER) Dextrose/Water 250 ML ASDIR PRN 06/05 815 AC (DEXTROSE 10% IN IV 07/05 814 WATER) Sodium Chloride 1,000 ML .[id number] 06/04 2145 DC 06/05 (0.45% Sodium IV 07/04 2144 0904 Chloride) Lactulose 20 GM Q6H PRN PRN 06/04 2100 AC (LACTULOSE) PO 07/04 2059 Potassium Chloride 40 MEQ DAILY PRN PRN 06/04 2100 AC (POTASSIUM CHLORIDE PO 07/04 2059 20MEQ TAB.ER) Sodium Chloride 500 ML ASDIR PRN 06/04 1415 DC (SODIUM CHLORIDE IV 07/04 141 0.9%) Gastrointestinal Drugs Sig/Jean Carlos Start time Last Medication Dose Route Stop Time Status Admin Metoclopramide HCl 10 MG Q8H 06/06 1230 AC (REGLAN) IV 07/06 1229 Metoclopramide HCl 10 MG ONCE ONE 06/06 0500 DC 06/06 (REGLAN) IV 06/06 0501 0504 Metoclopramide HCl 5 MG Q8H 06/06 0430 DC (REGLAN) IV 07/06 0429 Pantoprazole Sodium 40 MG DAILY 06/06 0429 AC 06/06 (PROTONIX) IV 07/06 428 0444 Al Hydrox/Mg Hydrox/ 30 ML Q4H PRN PRN 06/04 2100 AC Simethicone PO 07/04 2059 (MYLANTA) Docusate Sodium 100 MG BID PRN PRN 06/04 2100 AC (COLACE) PO 07/04 2059 Ondansetron HCl 4 MG Q4H PRN PRN 06/04 2100 AC 06/06 (ZOFRAN) IV 07/04 2059 0233 Hormones And Synthetic Substit Sig/Jean Carlos Start time Last Medication Dose Route Stop Time Status Admin Glucagon 1 MG ASDIR PRN 06/05 0815 AC (GLUCAGON) IM 07/05 0814 Insulin Glargine 10 UNIT Q12HR 06/04 2103 AC 06/05 (Lantus) SUBQ 07/04 Insulin Human Lispro 0 AC HS 06/04 2100 AC 06/05 (HUMALOG) SUBQ 07/04 2059 125 Respiratory Tract Agents Sig/Jean Carlos Start time Last Medication Dose Route Stop Time Status Admin Benzonatate 100 MG Q6H PRN PRN 06/05 1630 AC 06/05 (TESSALON PERLE) PO 07/05 1629 215 Skin And Mucous Membrane Agent Sig/Jean Carlos Start time Last Medication Dose Route Stop Time Status Admin Mupirocin 1 APPLIC BID 06/04 2100 AC 06/05 (BACTROBAN NASAL- NASAL 06/09 ADULT ICU/ANJUM MRSA PATIENTS) Vitamins Sig/Jean Carlos Start time Last Medication Dose Route Stop Time Status Admin Ergocalciferol 50,000 INTL.UNITS Q7D 06/04 2100 CKD 06/04 (DRISDOL) PO 07/04 Allergies:Coded Allergies:No Known Allergies (09/21/18) Review of SystemsConstitutional:Yes fatigue, No chills, No feverSkin:No abrasion, No bruisingAllergy/Immun:No hives, No itchingEyes:No redness, No dischargeENT:No ear drainage, No ear ringingRespiratory:Yes non productive cough, Yes SOBCardiovascular:No palpitationsGI:Yes nausea, Yes vomiting, No abdominal painGU:Denies: dysuria, flank pain. Musculoskeletal:No arthritis, No extremity painHeme:No bleeding, No bruisingEndocrine:No cold intolerance, No heat intoleranceNeuro:No bowel dysfunction, No seizurePsych:No agitation, No anxiety Objective GeneralVS/I O:Vital Signs:Date Time Temp Pulse Resp B/P B/P Pulse O2 O2 Flow FiO2 Mean Ox Delivery Rate06/06 0601 108 25 180/90 127 48633/23 0500 106 26 176/748 580 9833/23 0447 119 86 1576/23 0445 117 10 0188/23 0444 103 34 167/93 120 9807/23 0442 101 30 176/860 617 1476/23 0430 614 31 0826/23 0415 783 96 3850/23 0400 104 25 166/93 123 9807/23 0350 98 High flow 12.263905 nasal qhbylbi08/ 0300 103 28 161/96 122 9407/23 0218 618 13 4766/23 0215 104 24 100 7007/23 0200 104 16 148/82 109 9207/ 0145 807 48 1589/23 0130 019 21 7278/ 0115 429 88 2703/23 0100 104 24 152/87 114 9407/23 0000 37.1 104 10 154/83 111 9207/ 2300 93 26 127/75 97 9607/ 2242 92 High flow 10.156744 nasal eigkseo47/ 2204 99 27 132/70 95 9807/22 2100 96 27 121/71 90 9407/22 2000 37.1 95 26 110/69 85 9407/22 1920 High flow 10.861694 nasal /22 1900 96 28 119/70 88 9307/22 1800 93 12 116/65 84 9607/22 1700 98 16 113/69 86 9407/22 1645 94 High flow 10.072925 nasal ygcftrt40/22 1600 94 28 117/73 8907/22 1500 90 25 116/65 8607/22 1400 91 27 120/68 8607/22 1300 85 21 122/72 9207/22 1200 82 18 117/71 90 9507/22 1100 83 20 109/70 85 9307/22 1000 96 25 131/70 92 9207/22 0900 92 12 116/68 87 9307/22 0801 95 31 116/80 90 9107/22 0800 Nasal 2.869984 iopxftm14/22 0700 93 22 117/68 88 93 24 hour I O ending at 0700: 06/06 0700 06/05 1900 Intake Total 467.00 1354.00 Output Total 475 300 Balance -8.00 1054.00 Intake, IV 407.00 1254.00 Intake, Oral 60 100 Output, Emesis Output, Urine 475 300 Patient 84 kg Weight Weight Bed scale Measurement Method Patient Weight Weight (lb): 185Weight (oz): 3.01Weight (kg): 84.000 Medications:Active Meds + DC'd Last 24 HrsMetoclopramide HCl 10 MG Q8H IV Metoclopramide HCl 10 MG ONCE ONE IV (DC) Metoclopramide HCl 5 MG Q8H IV (DC) Sodium Chloride 10 ML ASDIR PRN IV Pantoprazole Sodium 40 MG DAILY IV Promethazine HCl 25 MG Q8H PRN PRN IM Furosemide 80 MG ONCE ONE IV (DC) Furosemide 40 MG BID 9A 5P IV Furosemide 40 MG ONCE ONE IV (CAN) Diphenhydramine HCl 25 MG Q6H PRN PRN PO Albuterol/Ipratropium 3 ML RTQ4H PRN PRN INH Azithromycin 500 MG Q24H IV Sodium Chloride 250 MLBenzonatate 100 MG Q6H PRN PRN PO Ceftriaxone Sodium 1,000 MG Q24H IV Sodium Chloride 100 MLAspirin 81 MG DAILY PO Dextrose/Water 125 ML ASDIR PRN IV Dextrose/Water 250 ML ASDIR PRN IV Glucagon 1 MG ASDIR PRN IM Sodium Chloride 1,000 ML .[id number] IV (DC) Insulin Glargine 10 UNIT Q12HR SUBQ Al Hydrox/Mg Hydrox/Simethicone 30 ML Q4H PRN PRN PO Docusate Sodium 100 MG BID PRN PRN PO Ergocalciferol 50,000 INTL.UNITS Q7D PO (CKD) Hydrocodone Bitart/Acetaminophen 1 TAB Q6H PRN PRN PO Insulin Human Lispro 0 AC HS SUBQ Lactulose 20 GM Q6H PRN PRN PO Mupirocin 1 APPLIC BID NASAL Ondansetron HCl 4 MG Q4H PRN PRN IV Potassium Chloride 40 MEQ DAILY PRN PRN PO Ticagrelor 90 MG BID PO Zolpidem Tartrate 5 MG BEDTIME PRN PRN PO Acetaminophen 650 MG Q6H PRN PRN PO Atropine Sulfate 0.5 MG ASDIR PRN IV Hydrocodone Bitart/Acetaminophen 1 TAB Q4H PRN PRN PO (DC) Sodium Chloride 500 ML ASDIR PRN IV (DC) Atorvastatin Calcium 80 MG DAILY 1700 PO Metoprolol Tartrate 25 MG BID PO Morphine Sulfate 2 MG Q3H PRN PRN IV Physical ExamGeneral appearance: alert, no acute distressHead/eyes: atraumatic, normocephalicENT: moist mucous membranes, normal noseNeck: supple/no meningismusCardiovascular: normal heart sounds, no rubRespiratory: aerating well, no distressAbdomen: non-tender, softGenitourinary: no flank pain, no foleyExtremities: non-tender, no edemaMusculoskeletal: no tenderenessNeuro/VACUUM FILTER OPERATOR: alert, normal speechSkin: dry, intact ResultsFindings/Data:Laboratory Tests 06/06 06/05 0205 1626 Blood Gas Puncture Site R Rad R Rad ABG pH (7.35 - 7.45) 7.282 L 7.352 ABG pCO2 (35 - 45 mmHg) 34.6 L 31.4 L ABG pO2 (80 - 100 mmHg) 66 L 61 L ABG HCO3 (22.0 - 26.0 mmol/L) 16.3 L 17.4 L ABG Total CO2 17 18 ABG O2 Saturation (90 - 100 %) 90 90 ABG Base Excess (-4 - 4 mmol/L) -10.0 L -8.0 L Temperature (F) 98.8 98.6 O2 Delivery Device Hi-himanshu Can Hi-himanshu Can Laboratory Tests 06/06 06/05 06/05 06/05 06/05 0350 2024 2024 1649 1142Chemistry Sodium (134 - 147 mEq/L) 139 Potassium (3.4 - 5.0 mEq/L) 4.9 Chloride (100 - 108 mEq/L) 109 H Carbon Dioxide (21 - 33 mEq/L) 22 Anion Gap (0 - 20) 13 BUN (7 - 18 mg/dL) 45 H Creatinine (0.6 - 1.3 mg/dL) 3.4 H Glomerular Filtr Rate (90 - 95) 22.8 L Glucose (70 - 110 mg/dL) 131 H POC Glucose (70 - 110 MG/DL) 120 H 156 H Lactic Acid (0.4 - 1.9 mmol/L) 1.6 Calcium (8.0 - 10.5 mg/dL) 8.0 Total Creatine Kinase (35 - 232) 1586 *H CK-MB (CK-2) (0 - 5.0 ng/mL) 19.1 *H Troponin I (0.000 - 0.045 ng/mL) 53.500 *H B-Natriuretic Peptide (0 - 100 1010.0 HPG/ML) 06/05 06/05 06/05 06/04 06/04 0752 0545 0500 1927 1746Chemistry Sodium (134 - 147 mEq/L) 140 Potassium (3.4 - 5.0 mEq/L) 4.9 Chloride (100 - 108 mEq/L) 110 H Carbon Dioxide (21 - 33 mEq/L) 22 Anion Gap (0 - 20) 13 BUN (7 - 18 mg/dL) 37 H Creatinine (0.6 - 1.3 mg/dL) 2.3 H Glomerular Filtr Rate (90 - 95) 35.8 L Glucose (70 - 110 mg/dL) 151 H POC Glucose (70 - 110 MG/DL) 148 H 115 H 137 H Hemoglobin A1c (4.8 - 6.0 %A1C) 9.1 H Calcium (8.0 - 10.5 mg/dL) 8.0 Triglycerides (40 - 150 mg/dL) 87 Cholesterol (<200 mg/dL) 151 LDL Cholesterol Measurd (0 - 100 96mg/dL) HDL Cholesterol (32 - 72 mg/dL) 46.0 Cholesterol/HDL Ratio (3.43 - 4.97 3.28 LRATIO) 06/04 06/04 06/04 06/04 1354 0900 0900 0222 Chemistry POC Glucose (70 - 110 MG/DL) 152 H Rapid Troponin I (0.00 - 0.08 ng/mL) 12.01 *H Troponin I (0.000 - 0.045 ng/mL) 39.500 *H LDL Cholesterol Measurd (0 - 100 mg/dL) 125 H 06/04 06/04 06/04 0028 0027 0016 Chemistry POC Sodium (134 - 147 MMOL/L) 138 POC Potassium (3.4 - 5.0 MMOL/L) 4.8 POC Chloride (100 - 108 MMOL/L) 105 Carbon Dioxide (21 - 33 mmol/L) 24.0 POC BUN (7 - 18 MG/DL) 32 H POC Creatinine (0.6 - 1.3 MG/DL) 2.0 H Estimated GFR (MDRD) (ML/MIN) 45 POC Glucose (70 - 110 MG/DL) 228 H Lactic Acid (0.90 - 1.70 MMOL/L) 0.7 L POC Ioniz Calcium Arley (1.12 - 1.32 MG/DL) 1.21 B-Natriuretic Peptide (0 - 100 PG/ML) 115.3 H Laboratory Tests 06/04 1303 Coagulation Activated Coag Time (74 - 137 SEC) 368 H Laboratory Tests 06/06 06/05 06/04 0350 0500 0016 Hematology WBC (4.5 - 11.0 x10 3/uL) 15.23 H 11.93 H 8.80 RBC (4.00 - 5.60 x10 6/uL) 3.87 L 2.94 L 3.58 L Hgb (12.5 - 16.9 g/dL) 10.5 L 8.2 L 9.8 L Hct (37.5 - 50.7 %) 33.1 L 25.8 L 30.1 L MCV (81.0 - 99.0 fL) 85.5 87.8 84.1 MCH (27.0 - 33.0 pg) 27.1 27.9 27.4 MCHC (33.0 - 37.0 g/dL) 31.7 L 31.8 L 32.6 L RDW (11.5 - 14.5 %) 14.1 14.3 13.4 Plt Count (150 - 400 x10 3/uL) 361 264 311 MPV (7.0 - 9.0 fL) 10.2 H 10.5 H 9.7 H Neut % (Auto) (56.0 - 77.0 %) 90.0 H 83.0 H 68.4 Lymph % (Auto) (14.0 - 32.0 %) 4.7 L 7.0 L 21.8 [place] % (Auto) (4.8 - 9.0 %) 3.9 L 9.3 H 8.0 Eos % (Auto) (0.3 - 3.7 %) 0.0 L 0.0 L 1.0 Baso % (Auto) (0.0 - 2.0 %) 0.1 0.1 0.2 Neut # (Auto) (2.0 - 7.6 x10 3/uL) 13.70 H 9.91 H 6.02 Lymph # (Auto) (1.0 - 3.8 x10 3/uL) 0.71 L 0.83 L 1.92 [place] # (Auto) (0.1 - 0.8 x10 3/uL) 0.60 1.11 H 0.70 Eos # (Auto) (0.0 - 0.2 x10 3/uL) 0.00 0.00 0.09 Baso # (Auto) (0.0 - 0.2 x10 3/uL) 0.02 0.01 0.02 Abs Immat Gran (auto) (0.00 - 0.03 x10 3/uL) 0.20 H 0.07 H 0.05 H Add Manual Diff NO NO NO Immature Gran % (0.0 - 2.0 %) 1.3 0.6 0.6 Nucleated RBC % (0 - 0 %) 0.0 0.0 0.0 Nucleated RBCs # (Man) (0.0 - 0.1 x10 3/uL) 0.00 0.00 0.00 Recent Impressions:MAGNETIC RESONANCE IMAGING - MRI BRAIN WO/W CONT 06/04 1056 Report Impression - Status: SIGNED Entered: 06/04/2019 1115 IMPRESSION: Faint restricted diffusion and enhancement in the right parietal lobecorresponds to the abnormality seen on the brain CT. This arearepresents a subacute infarction, without hemorrhage or mass effect. Recommend correlation with the patient's history. SL: [id number] By: Trace Quevedo M.D.ULTRASOUND - DUP EXTRACRANIAL ALEJANDRA 06/05 1345 Report Impression - Status: SIGNED Entered: 06/05/2019 1403 IMPRESSION: RIGHT: ICA stenosis <50% by velocity criteria.LEFT: ICA stenosis <50% by velocity criteria.No flow identified in the left vertebral artery ___Consensus panel Doppler US criteria for diagnosis of ICA stenosis: Stenosis (%) ICA PSV (cm/sec) ICA/CCA ratio <50 <125 <2.050-69 125-230 2.0-4.0>70 but less than >230 >4.0 near occlusionNear occlusion High, low, or Variable undetectable SL: [id number] By: AlenaAP24 Veronica Vizcaino M.D.RADIOLOGY - XR CHEST 1 V 06/05 1728 Report Impression - Status: SIGNED Entered: 06/05/2019 173 IMPRESSION:1. Mild bilateral parahilar infiltrates have developed sinceyesterday. Edema and pneumonia are both possible.2. Otherwise unremarkable exam. SL:01Impression By: Joel Lim M.D.RADIOLOGY - XR CHEST 1 V 06/06 0535 Report Impression - Status: SIGNED Entered: 06/06/2019 0548 IMPRESSION:1. Worsening airspace opacities in the perihilar right midlung andmedial right lung base, concerning for pneumonia. SL: 131Impression By: Daniela Griffith M.D. Laboratory Tests 06/06 06/05 0205 1626 Blood Gas Puncture Site R Rad R Rad ABG pH (7.35 - 7.45) 7.282 L 7.352 ABG pCO2 (35 - 45 mmHg) 34.6 L 31.4 L ABG pO2 (80 - 100 mmHg) 66 L 61 L ABG HCO3 (22.0 - 26.0 mmol/L) 16.3 L 17.4 L ABG Total CO2 17 18 ABG O2 Saturation (90 - 100 %) 90 90 ABG Base Excess (-4 - 4 mmol/L) -10.0 L -8.0 L Temperature (F) 98.8 98.6 O2 Delivery Device Hi-himanshu Can Hi-himanshu Can Laboratory Tests 06/06 06/05 06/05 06/05 06/05 0350 2024 2024 1649 1142Chemistry Sodium (134 - 147 mEq/L) 139 Potassium (3.4 - 5.0 mEq/L) 4.9 Chloride (100 - 108 mEq/L) 109 H Carbon Dioxide (21 - 33 mEq/L) 22 Anion Gap (0 - 20) 13 BUN (7 - 18 mg/dL) 45 H Creatinine (0.6 - 1.3 mg/dL) 3.4 H Glomerular Filtr Rate (90 - 95) 22.8 L Glucose (70 - 110 mg/dL) 131 H POC Glucose (70 - 110 MG/DL) 120 H 156 H Lactic Acid (0.4 - 1.9 mmol/L) 1.6 Calcium (8.0 - 10.5 mg/dL) 8.0 Total Creatine Kinase (35 - 232) 1586 *H CK-MB (CK-2) (0 - 5.0 ng/mL) 19.1 *H Troponin I (0.000 - 0.045 ng/mL) 53.500 *H B-Natriuretic Peptide (0 - 100 1010.0 HPG/ML) 06/05 0752 Chemistry POC Glucose (70 - 110 MG/DL) 148 H Laboratory Tests 06/06 0350 Hematology WBC (4.5 - 11.0 x10 3/uL) 15.23 H RBC (4.00 - 5.60 x10 6/uL) 3.87 L Hgb (12.5 - 16.9 g/dL) 10.5 L Hct (37.5 - 50.7 %) 33.1 L MCV (81.0 - 99.0 fL) 85.5 MCH (27.0 - 33.0 pg) 27.1 MCHC (33.0 - 37.0 g/dL) 31.7 L RDW (11.5 - 14.5 %) 14.1 Plt Count (150 - 400 x10 3/uL) 361 MPV (7.0 - 9.0 fL) 10.2 H Neut % (Auto) (56.0 - 77.0 %) 90.0 H Lymph % (Auto) (14.0 - 32.0 %) 4.7 L Highland % (Auto) (4.8 - 9.0 %) 3.9 L Eos % (Auto) (0.3 - 3.7 %) 0.0 L Baso % (Auto) (0.0 - 2.0 %) 0.1 Neut # (Auto) (2.0 - 7.6 x10 3/uL) 13.70 H Lymph # (Auto) (1.0 - 3.8 x10 3/uL) 0.71 L Highland # (Auto) (0.1 - 0.8 x10 3/uL) 0.60 Eos # (Auto) (0.0 - 0.2 x10 3/uL) 0.00 Baso # (Auto) (0.0 - 0.2 x10 3/uL) 0.02 Abs Immat Gran (auto) (0.00 - 0.03 x10 3/uL) 0.20 H Add Manual Diff NO Immature Gran % (0.0 - 2.0 %) 1.3 Nucleated RBC % (0 - 0 %) 0.0 Nucleated RBCs # (Man) (0.0 - 0.1 x10 3/uL) 0.00 Diagnosis, Assessment Plan Free Text DxA P NotesFree Text DxA P Notes:Patient seen and evaluated, discussed with care team, Images and laboratory reviewedHistory of HTN: metoprolol: Monitor BP closely and adjust medications as neededDM: insulin: Monitor BS closely and adjust medications as neededHLD: LipitorCAD s/p NSTEMI , s/p LHC and LAD/LCX PCI: ASA/TicagrelorPNA: Rocephin/AzithromaxSOB with elevated BNP, he has no LE edema, his SOB could be mainly related to his PNA, he is nauseated and eating, would hold off diuretcis if possibleAKI felisha related to CINHis baseline creat 1.2 in Sep 2018, eGFR 80 , felisha had some progression since then, check UA, urine P/creat ratio and renal USAcidosis: pH this AM 7.28 at 0923 RPT #:[id number] OF REPORTYQVlwtodbvflyy7860-07-94W25:49:00G.EYXH231 [id number] for patient hglwLUNNOXVWJNGJKN3481-86-89W09:24:02 [facility] 2019-06-06 04:17:00 [id number]:17:0007 [place] [id number] PATIENT NAME: DUSTY FRANCOIS ADMIT DATE: 06/04/19ACCOUNT NO: [id number] ROOM NO: [facility] [place] AGE: 58 REPORT TYPE: eELECTROCARDIOGRAM REPORT SEX: M ADMITTING PHYSICIAN:Kyung Bedoya MD ATTENDING PHYSICIAN:Kyung Bedoya MD Order:[id number] Reason : SP PCI Test Date/Time Stamp:WedJun 06 2019 04:17:52Blood Pressure : / mmHGVent. Rate : 112 BPM Atrial Rate : 112 BPM P-R Int : 148 ms QRS Dur : 090 ms QT Int : 340 ms P-R-T Axes : 065 048 063 degrees QTc Int : 464 ms Sinus tachycardiaST elevation, consider inferior injury or acute infarct ACUTE [place] Abnormal ECGWhen compared with ECG of 05-JUN-2019 04:58,Significant changes have occurredConfirmed by LAURO STONE MD ([id number]) on 06/06/2019 2:39:36 PM Referred By: Kyung Bedoya Confirmed by:JIMMY STONE MD at 1439 PATIENT NAME: DUSTY FRANCOIS .[id number] Available for patient [id number]:40:08 [facility] 2019-06-05 21:13:00 [id number]:13:00 [facility] Prog. NoteREPORT#:[id number] REPORT STATUS: SignedDATE:06/05/19 TIME: 2112 PATIENT: DUSTY FRANCOIS UNIT #: [id number]#: [id number] [place] [facility] [place]-1DOB: [birth year] AGE: 58 SEX: M ATTEND: Kyung Bedoya MDA AUTHOR: Kyung Bedoya MD * ALL edits or amendments must be made on the electronic/computer document * SubjectiveChief Complaint:C/O FEVER COUGH SPO2 DROPED NO CHESTPAIN Patient reports: chest pain, cough Review of SystemsConstitutional:Reports: generalized weakness. Skin:Denies: abrasion, bruising, contusion, diaphoresis, ecchymosis, itching, laceration, rash, swelling, other. Allergy/Immun:Denies: allergic reaction, anaphylaxis, hives, itching, rhinorrhea, sneezing, other. Eyes:Denies: redness, discharge, visual loss/blurred, itching, diplopia, eye pain, photophobia, swelling, other. Respiratory:Reports: productive cough (sputum), SOB. Cardiovascular:Reports: orthopnea. GI:Denies: abdominal pain, anorexia, constipation, diarrhea, dysphagia, GERD, hematemesis, hematochezia, hiatal hernia, melena, nausea, rectal pain, vomiting,other. Musculoskeletal:Denies: arthritis, extremity pain, extremity swelling, joint pain, joint swelling, lumbar pain, myalgias, neck pain, thoracic pain, other. Neuro:Reports: weakness. Objective GeneralVS/I O:Vital Signs Date Temp Pulse Resp B/P B/P Mean Pulse Ox FiO2 06/04-06/05 100.1 82-98 11-31 108-131/65-80 81-99 90-96 Last Documented: Result Date Time Pulse Ox 96 06/05 1800 B/P 116/65 06/05 1800 B/P Mean 84 06/05 1800 Pulse 93 06/05 1800 Resp 12 06/05 1800 O2 Delivery High flow nasal cannula 06/05 1645 O2 Flow Rate 10.238599 06/05 1645 Temp 100.1 06/05 0400 24 hour I O ending at 0700: 06/05 0700 06/04 1900 Intake Total 1440.00 1286.00 Output Total 950 350 Balance 490.00 936.00 Intake, IV 1200.00 1046.00 Intake, Oral 240 240 Output, Urine 950 350 Patient Weight Weight (lb): Weight (oz): Weight (kg): 93.600 Medications:Active Meds + DC'd Last 24 HrsFurosemide 40 MG BID 9A 5P IV Furosemide 40 MG ONCE ONE IV (CAN) Diphenhydramine HCl 25 MG Q6H PRN PRN PO Albuterol/Ipratropium 3 ML RTQ4H PRN PRN INH Azithromycin 500 MG Q24H IV Sodium Chloride 250 MLBenzonatate 100 MG Q6H PRN PRN PO Ceftriaxone Sodium 1,000 MG Q24H IV Sodium Chloride 100 MLAspirin 81 MG DAILY PO Dextrose/Water 125 ML ASDIR PRN IV Dextrose/Water 250 ML ASDIR PRN IV Glucagon 1 MG ASDIR PRN IM Sodium Chloride 1,000 ML .[id number] IV (DC) Insulin Glargine 10 UNIT Q12HR SUBQ Al Hydrox/Mg Hydrox/Simethicone 30 ML Q4H PRN PRN PO Docusate Sodium 100 MG BID PRN PRN PO Ergocalciferol 50,000 INTL.UNITS Q7D PO (CKD) Hydrocodone Bitart/Acetaminophen 1 TAB Q6H PRN PRN PO Insulin Human Lispro 0 AC HS SUBQ Lactulose 20 GM Q6H PRN PRN PO Mupirocin 1 APPLIC BID NASAL Ondansetron HCl 4 MG Q4H PRN PRN IV Potassium Chloride 40 MEQ DAILY PRN PRN PO Potassium Chloride/Sodium Chloride 1,000 ML .[id number] IV (DC) Ticagrelor 90 MG BID PO Zolpidem Tartrate 5 MG BEDTIME PRN PRN PO Acetaminophen 650 MG Q6H PRN PRN PO Atropine Sulfate 0.5 MG ASDIR PRN IV Hydrocodone Bitart/Acetaminophen 1 TAB Q4H PRN PRN PO (DC) Sodium Chloride 500 ML ASDIR PRN IV (DC) Atorvastatin Calcium 80 MG DAILY 1700 PO Metoprolol Tartrate 25 MG BID PO Morphine Sulfate 2 MG Q3H PRN PRN IV Morphine Sulfate 4 MG Q4H PRN PRN IV (DC) Ondansetron HCl 4 MG Q6H PRN PRN IV (DC) Physical ExamGeneral appearance: alert, awake, orientedHead/Eyes: atraumatic, EOMINeck: non-tender, supple/no meningismusCardiovascular: normal heart sounds, regular rate rhythmRespiratory: crackles, decreased breath sounds, shortness of breathAbdomen: soft, no distentionNeuro/VACUUM FILTER OPERATOR: alert, oriented x 3 ResultsFindings/Data:Laboratory Tests 06/05/192024:[Embedded Image Not Available] 07/22/19 0545:[Embedded Image Not Available] 06/05/19 0500:[Embedded Image Not Available]Laboratory Tests 06/05 1626 Blood Gas Puncture Site R Rad ABG pH (7.35 - 7.45) 7.352 ABG pCO2 (35 - 45 mmHg) 31.4 L ABG pO2 (80 - 100 mmHg) 61 L ABG HCO3 (22.0 - 26.0 mmol/L) 17.4 L ABG Total CO2 18 ABG O2 Saturation (90 - 100 %) 90 ABG Base Excess (-4 - 4 mmol/L) -8.0 L Temperature (F) 98.6 O2 Delivery Device Hi-himanshu Can Laboratory Tests 06/05 1649 1142 0752Chemistry Sodium (134 - 147 mEq/L) 139 Potassium (3.4 - 5.0 mEq/L) 4.9 Chloride (100 - 108 mEq/L) 109 H Carbon Dioxide (21 - 33 mEq/L) 22 Anion Gap (0 - 20) 13 BUN (7 - 18 mg/dL) 45 H Creatinine (0.6 - 1.3 mg/dL) 3.4 H Glomerular Filtr Rate (90 - 95) 22.8 L Glucose (70 - 110 mg/dL) 131 H POC Glucose (70 - 110 MG/DL) 120 H 156 H 148 H Calcium (8.0 - 10.5 mg/dL) 8.0 Total Creatine Kinase (35 - 232) 1586 *H CK-MB (CK-2) (0 - 5.0 ng/mL) 19.1 *H Troponin I (0.000 - 0.045 ng/mL) 53.500 *H B-Natriuretic Peptide (0 - 100 1010.0 HPG/ML) 06/05 06/05 0545 0500 Chemistry Sodium (134 - 147 mEq/L) 140 Potassium (3.4 - 5.0 mEq/L) 4.9 Chloride (100 - 108 mEq/L) 110 H Carbon Dioxide (21 - 33 mEq/L) 22 Anion Gap (0 - 20) 13 BUN (7 - 18 mg/dL) 37 H Creatinine (0.6 - 1.3 mg/dL) 2.3 H Glomerular Filtr Rate (90 - 95) 35.8 L Glucose (70 - 110 mg/dL) 151 H Hemoglobin A1c (4.8 - 6.0 %A1C) 9.1 H Calcium (8.0 - 10.5 mg/dL) 8.0 Triglycerides (40 - 150 mg/dL) 87 Cholesterol (<200 mg/dL) 151 LDL Cholesterol Measurd (0 - 100 mg/dL) 96 HDL Cholesterol (32 - 72 mg/dL) 46.0 Cholesterol/HDL Ratio (3.43 - 4.97 RATIO) 3.28 L Laboratory Tests 06/05 0500 Hematology WBC (4.5 - 11.0 x10 3/uL) 11.93 H RBC (4.00 - 5.60 x10 6/uL) 2.94 L Hgb (12.5 - 16.9 g/dL) 8.2 L Hct (37.5 - 50.7 %) 25.8 L MCV (81.0 - 99.0 fL) 87.8 MCH (27.0 - 33.0 pg) 27.9 MCHC (33.0 - 37.0 g/dL) 31.8 L RDW (11.5 - 14.5 %) 14.3 Plt Count (150 - 400 x10 3/uL) 264 MPV (7.0 - 9.0 fL) 10.5 H Neut % (Auto) (56.0 - 77.0 %) 83.0 H Lymph % (Auto) (14.0 - 32.0 %) 7.0 L Highland % (Auto) (4.8 - 9.0 %) 9.3 H Eos % (Auto) (0.3 - 3.7 %) 0.0 L Baso % (Auto) (0.0 - 2.0 %) 0.1 Neut # (Auto) (2.0 - 7.6 x10 3/uL) 9.91 H Lymph # (Auto) (1.0 - 3.8 x10 3/uL) 0.83 L Highland # (Auto) (0.1 - 0.8 x10 3/uL) 1.11 H Eos # (Auto) (0.0 - 0.2 x10 3/uL) 0.00 Baso # (Auto) (0.0 - 0.2 x10 3/uL) 0.01 Abs Immat Gran (auto) (0.00 - 0.03 x10 3/uL) 0.07 H Add Manual Diff NO Immature Gran % (0.0 - 2.0 %) 0.6 Nucleated RBC % (0 - 0 %) 0.0 Nucleated RBCs # (Man) (0.0 - 0.1 x10 3/uL) 0.00 Radiology data:Recent Impressions:ULTRASOUND - DUP EXTRACRANIAL ALEJANDRA 06/05 1345 Report Impression - Status: SIGNED Entered: 06/05/2019 1403 IMPRESSION: RIGHT: ICA stenosis <50% by velocity criteria.LEFT: ICA stenosis <50% by velocity criteria.No flow identified in the left vertebral artery ___Consensus panel Doppler US criteria for diagnosis of ICA stenosis: Stenosis (%) ICA PSV (cm/sec) ICA/CCA ratio <50 <125 <2.050-69 125-230 2.0-4.0>70 but less than >230 >4.0 near occlusionNear occlusion High, low, or Variable undetectable SL: [id number] By: AlenaAP2Rita Vizcaino M.D.RADIOLOGY - XR CHEST 1 V 06/05 1728 Report Impression - Status: SIGNED Entered: 06/05/2019 4525 IMPRESSION:1. Mild bilateral parahilar infiltrates have developed sinceyesterday. Edema and pneumonia are both possible.2. Otherwise unremarkable exam. SL:01Impression By: Joel Lim M.D. Diagnosis, Assessment PlanHospital course to date:1. ACUTE CORONARY SYNDROME - S/P PCI TO MID CIRCUMFLEX .LAD , ON ASA ,BRILANTA ,METOPROLOL,STATIN , PLANS FOR STAGED PCT TO RCA LATER 2,SUBACUTE CVA - NEURO FU 3.HYPOXIA DUE TO PULMO EDEMA -STARTED LASIX 4..PNA -CULTURES SEND -STARTED ROCEPHIN /AZITHROMYCIN 5.BRENDA - ON LASIX ,EXPECTED TO INCREASE , MONITOR ,HOLD IVF FOR NOW ,NEPHROLOGY EVALUATION 6.DM -UNCONCONTROLED -HBA1C 9.1 -ON LANTUS ,HUMOLOG 7.PAD DVT/GI PROPHYLAXIS at 2132 RPT #:[id number] OF REPORTPRProgress Fxdn4510-64-50T62:13:00G.[id number] le for patient hbzgQOWSMBMFDFPSEA1614-28-06V57:33:11 [facility] 2019-06-05 20:11:00 [id number]:11:0007 [address] [place] [address] PATIENT NAME: DUSTY FRANCOIS ADMIT DATE: 06/04/19ACCOUNT NO: [id number] ROOM NO: G.3309 AGE: 58 REPORT TYPE: eECHOCARDIOGRAM REPORT SEX: M ADMITTING PHYSICIAN:Kyung Bedoya MD ATTENDING PHYSICIAN:Kyung Bedoya MD Exam Date: 06/04/2019 16:25:00 Exam Type: Transthoracic Echocardiogram Indication:N STEMIRhythm: TachycardiaBP: 126/73HR: 110 Measurements Name Value Normal Range Ao root diameter (MM) 3.34 cm - LA dimension (AP) MM 4.14 cm (1.9 - 4) LA:Ao ratio (MM) 1.24 ratio (Less Than 1.5) AV cusp separation (MM) 1.5 cm - Name Value Normal Range IVSd (2D) 1.68 cm (0.6 - 1.1) LVPWd (2D) 1.81 cm (0.6 - 1.1) LVIDd (2D) 4.49 cm (3.5 - 5.6) LVIDs (2D) 3.56 cm (2.1 - 4) LV FS (2D) 20.65 % - EF Teichholz (2D) 42.27 % (50 - 90) Ao root diameter (2D) 3.2 cm (2 - 3.7) Name Value Normal Range LA ESV SP 4CH (A/L) 23.49 ml - LA ESV SP 2CH (A/L) 83.19 ml - LA ESV BP (A/L) 49.65 ml - LA ESV SP 4CH (MOD) 21.6 ml - LA ESV SP 2CH (MOD) 70.25 ml - LV EDV SP 4CH (MOD) 68.97 ml - LV ESV SP 4CH (MOD) 40.06 ml - EF SP 4CH (MOD) 41.92 % - LV EDV SP 2CH (MOD) 107.96 ml - LV ESV SP 2CH (MOD) 35.06 ml - EF SP 2CH (MOD) 67.52 % - LV EDV BP 85.88 ml - LV ESV BP 37.79 ml - BP EF (MOD) 56 % - Name Value Normal Range PATIENT NAME: DUSTY FRANCOIS MV E-wave Vmax 0.84 m/sec - MV deceleration time 122.55 msec - MV A-wave Vmax 0.98 m/sec - MV E:A ratio 0.86 ratio - IVRT 114.18 msec - Name Value Normal Range AV Vmax 1.67 m/sec - AV peak gradient 11.11 mmHg - LVOT diameter 2.14 cm (1.8 - 2.2) LVOT Vmax 1.05 m/sec - LVOT peak gradient 4.43 mmHg - KIMBERLY (continuity Vmax) 2.26 cm2 - Ascending Ao 3 cm (Less Than 39) Name Value Normal Range PV Vmax 1.32 m/sec - PV peak gradient 6.98 mmHg - LA end-diastolic Vmax 1.07 m/sec - RVOT Vmax 0.96 m/sec - RVOT peak gradient 3.71 mmHg - Findings Study Quality:This is a technically adequate examination. Left Ventricle:The left ventricular chamber size is normal. Severe concentric leftventricular hypertrophy is observed. Mild global hypokinesis of the leftventricle is observed. The estimated ejection fraction is 45-50%.Abnormal left ventricular diastolic filling is observed, consistent withimpaired LV relaxation. The left ventricular diastolic filling patternis consistent with elevated mean left atrial pressure. Left Atrium:The left atrium is mildly dilated. Right Ventricle:The right ventricular cavity size is normal. Normal right ventricularfunction is observed. Right Atrium:The right atrial cavity size is normal. Aortic Valve:The aortic valve is trileaflet. Systolic excursion of the aortic valveis normal. There is no evidence of aortic insufficiency. Mitral Valve:The mitral valve leaflets appear normal. There is mild mitralregurgitation observed. Tricuspid Valve:The tricuspid valve appears normal in structure and function. There isPATIENT NAME: DUSTY FRANCOIS trace tricuspid regurgitation. Unable to estimate RVSP due toinsufficient TR jet. Pulmonic Valve:The pulmonic valve appears normal in structure and function. There istrivial pulmonic regurgitation. Pericardium:There is no pericardial effusion. Aorta:The aortic root appears normal. Pulmonary Artery:The main pulmonary artery appears normal. Conclusions1. Severe concentric left ventricular hypertrophy is observed.2. Mild global hypokinesis of the left ventricle is observed.3. The estimated ejection fraction is 45-50%.4. Abnormal left ventricular diastolic filling is observed, consistentwith impaired LV relaxation.5. The left ventricular diastolic filling pattern is consistent withelevated mean left atrial pressure.6. The left atrium is mildly dilated.7. Normal right ventricular function is observed.8. There is no evidence of aortic insufficiency.9. There is mild mitral regurgitation observed.10. There is trace tricuspid regurgitation.11. Unable to estimate RVSP due to insufficient TR jet.12. There is trivial pulmonic regurgitation.13. There is no pericardial effusion. at 2014 PATIENT NAME: DUSTY FRANCOIS .[id number] Available for patient [id number]:14:47 [facility] 2019-06-05 17:13:00 [id number]:13:00 H [facility] ([facility]ENTERCardiology Progress NoteREPORT#:[id number] REPORT STATUS: SignedDATE:06/05/19 TIME: 1713 PATIENT: DUSTY FRANCOIS UNIT #: [id number]#: [id number] [address] [birth year] AGE: 58 SEX: M ATTEND: TuckerdimitrisalfredoRasheedchiquitacaity [facility] AUTHOR: Yvette Rae MD * ALL edits or amendments must be made on the electronic/computer document * SubjectiveChief Complaint:Elevated troponinPatient reports:No: chest pain, palpitations, shortness of breath. Free Text Subj NotesFree Text Subj Notes:Pt is feeling SOB, nauseated Objective GeneralVS/I O:24 hour I O ending at 0700: 06/05 0700 06/04 1900 Intake Total 1440.00 1286.00 Output Total 950 350 Balance 490.00 936.00 Intake, IV 1200.00 1046.00 Intake, Oral 240 240 Output, Urine 950 350 Vital Signs:Date Time Temp Pulse Resp B/P B/P Pulse O2 O2 Flow FiO2 Mean Ox Delivery Rate06/05 1800 93 12 116/65 84 9607/ 1700 98 16 113/69 86 9407/ 1645 94 High flow 10.558405 nasal yhnactc02/22 1600 94 28 117/73 8907/22 1500 90 25 116/65 8607/ 1400 91 27 120/68 8607/ 1300 85 21 122/72 9207/ 1200 82 18 117/71 90 9507/ 1100 83 20 109/70 85 9307/22 1000 96 25 131/70 92 92/ 0900 92 12 116/68 87 93/ 0801 95 31 116/80 90 9107/ 0800 Nasal 2.317074 xvtrirh48/22 0700 93 22 117/68 88 9307/22 0600 92 11 112/65 82 9107/ 0500 97 22 119/72 91 91/ 0400 100.1 96 24 112/66 84 9007/22 0300 97 26 122/71 92 9107/22 0200 95 25 124/75 93 9007/22 0100 94 17 130/77 99 9407/22 0000 92 18 123/72 92 9307/ 2300 93 13 117/68 88 94/ 2200 82 19 108/65 81 9607/ 2100 87 18 115/67 86 96 Patient Weight Weight (lb): Weight (oz): Weight (kg): 93.600 Medications:Active Meds + DC'd Last 24 HrsDiphenhydramine HCl 25 MG Q6H PRN PRN PO Albuterol/Ipratropium 3 ML RTQ4H PRN PRN INH Azithromycin 500 MG Q24H IV Sodium Chloride 250 MLBenzonatate 100 MG Q6H PRN PRN PO Ceftriaxone Sodium 1,000 MG Q24H IV Sodium Chloride 100 MLAspirin 81 MG DAILY PO Dextrose/Water 125 ML ASDIR PRN IV Dextrose/Water 250 ML ASDIR PRN IV Glucagon 1 MG ASDIR PRN IM Sodium Chloride 1,000 ML .[id number] IV Insulin Glargine 10 UNIT Q12HR SUBQ Al Hydrox/Mg Hydrox/Simethicone 30 ML Q4H PRN PRN PO Docusate Sodium 100 MG BID PRN PRN PO Ergocalciferol 50,000 INTL.UNITS Q7D PO (CKD) Hydrocodone Bitart/Acetaminophen 1 TAB Q6H PRN PRN PO Insulin Human Lispro 0 AC HS SUBQ Lactulose 20 GM Q6H PRN PRN PO Mupirocin 1 APPLIC BID NASAL Ondansetron HCl 4 MG Q4H PRN PRN IV Potassium Chloride 40 MEQ DAILY PRN PRN PO Potassium Chloride/Sodium Chloride 1,000 ML .[id number] IV (DC) Ticagrelor 90 MG BID PO Zolpidem Tartrate 5 MG BEDTIME PRN PRN PO Acetaminophen 650 MG Q6H PRN PRN PO Atropine Sulfate 0.5 MG ASDIR PRN IV Hydrocodone Bitart/Acetaminophen 1 TAB Q4H PRN PRN PO (DC) Sodium Chloride 1,000 ML .Q6H40M ONE IV (DC) Sodium Chloride 500 ML ASDIR PRN IV Atorvastatin Calcium 80 MG DAILY 1700 PO Metoprolol Tartrate 25 MG BID PO Morphine Sulfate 2 MG Q3H PRN PRN IV Morphine Sulfate 4 MG Q4H PRN PRN IV (DC) Ondansetron HCl 4 MG Q6H PRN PRN IV (DC) Physical ExamGeneral appearance: alert, awake, orientedHead/Eyes: atraumatic, normocephalicENT: moist mucosal membranesNeck: non-tender, supple/no meningismus, no JVD, no lymphadenopathy, no masses or swellingCardiovascular: CV assessment: regular rate and rhythm, normal heart soundsRespiratory: clear to auscultation, no distressAbdomen: soft, non-tender, normal bowel soundsGenitourinary: no bladder distentionUpper extremity: UE assessment: no clubbing, no cyanosisLower extremity: LE assessment: no clubbing, no cyanosis, no edemaMusculoskeletal: full range of motionNeuro/VACUUM FILTER OPERATOR: alert, oriented X 3Skin: dry, intactPsychiatry: normal affect ResultsFindings/Data:Laboratory Tests 06/05 162 Blood Gas Puncture Site R Rad ABG pH (7.35 - 7.45) 7.352 ABG pCO2 (35 - 45 mmHg) 31.4 L ABG pO2 (80 - 100 mmHg) 61 L ABG HCO3 (22.0 - 26.0 mmol/L) 17.4 L ABG Total CO2 18 ABG O2 Saturation (90 - 100 %) 90 ABG Base Excess (-4 - 4 mmol/L) -8.0 L Temperature (F) 98.6 O2 Delivery Device Hi-himanshu Can Laboratory Tests 06/05 06/05 06/05 06/05 06/04 1142 0752 0535 9891 1927Chemistry Sodium (134 - 147 mEq/L) 140 Potassium (3.4 - 5.0 mEq/L) 4.9 Chloride (100 - 108 mEq/L) 110 H Carbon Dioxide (21 - 33 mEq/L) 22 Anion Gap (0 - 20) 13 BUN (7 - 18 mg/dL) 37 H Creatinine (0.6 - 1.3 mg/dL) 2.3 H Glomerular Filtr Rate (90 - 95) 35.8 L Glucose (70 - 110 mg/dL) 151 H POC Glucose (70 - 110 MG/DL) 156 H 148 H 115 H Hemoglobin A1c (4.8 - 6.0 %A1C) 9.1 H Calcium (8.0 - 10.5 mg/dL) 8.0 Triglycerides (40 - 150 mg/dL) 87 Cholesterol (<200 mg/dL) 151 LDL Cholesterol Measurd (0 - 100 mg/dL) 96 HDL Cholesterol (32 - 72 mg/dL) 46.0 Cholesterol/HDL Ratio (3.43 - 4.97 RATIO) 3.28 L 06/04 1746 Chemistry POC Glucose (70 - 110 MG/DL) 137 H Laboratory Tests 06/05 0500 Hematology WBC (4.5 - 11.0 x10 3/uL) 11.93 H RBC (4.00 - 5.60 x10 6/uL) 2.94 L Hgb (12.5 - 16.9 g/dL) 8.2 L Hct (37.5 - 50.7 %) 25.8 L MCV (81.0 - 99.0 fL) 87.8 MCH (27.0 - 33.0 pg) 27.9 MCHC (33.0 - 37.0 g/dL) 31.8 L RDW (11.5 - 14.5 %) 14.3 Plt Count (150 - 400 x10 3/uL) 264 MPV (7.0 - 9.0 fL) 10.5 H Neut % (Auto) (56.0 - 77.0 %) 83.0 H Lymph % (Auto) (14.0 - 32.0 %) 7.0 L [place] % (Auto) (4.8 - 9.0 %) 9.3 H Eos % (Auto) (0.3 - 3.7 %) 0.0 L Baso % (Auto) (0.0 - 2.0 %) 0.1 Neut # (Auto) (2.0 - 7.6 x10 3/uL) 9.91 H Lymph # (Auto) (1.0 - 3.8 x10 3/uL) 0.83 L [place] # (Auto) (0.1 - 0.8 x10 3/uL) 1.11 H Eos # (Auto) (0.0 - 0.2 x10 3/uL) 0.00 Baso # (Auto) (0.0 - 0.2 x10 3/uL) 0.01 Abs Immat Gran (auto) (0.00 - 0.03 x10 3/uL) 0.07 H Add Manual Diff NO Immature Gran % (0.0 - 2.0 %) 0.6 Nucleated RBC % (0 - 0 %) 0.0 Nucleated RBCs # (Man) (0.0 - 0.1 x10 3/uL) 0.00 Radiology data:Recent Impressions:ULTRASOUND - DUP EXTRACRANIAL ALEJANDRA 06/05 1345 Report Impression - Status: SIGNED Entered: 06/05/2019 1403 IMPRESSION: RIGHT: ICA stenosis <50% by velocity criteria.LEFT: ICA stenosis <50% by velocity criteria.No flow identified in the left vertebral artery ___Consensus panel Doppler US criteria for diagnosis of ICA stenosis: Stenosis (%) ICA PSV (cm/sec) ICA/CCA ratio <50 <125 <2.050-69 125-230 2.0-4.0>70 but less than >230 >4.0 near occlusionNear occlusion High, low, or Variable undetectable SL: [id number] By: [email or web address] - Amadou Vizcaino M.D. Review of SystemsAll systems rev neg: except as marked Diagnosis, Assessment Plan Free Text DxA P NotesFree Text DxA P Notes:This is a 58-year-old male with history of peripheralarterial disease and hypertension, who presents with the syncopal episode. Thepatient ruled in for non-ST elevation myocardial infarction. 1. Non-ST elevation myocardial infarction. - s/p cardiac catheterization-PCI to the LCX 100 occlusion,, successfully revascularized. -S/PCI to the LAD- continue aspirin 81 mg -Cont Brilinta 90 mg po BID- continue Lipitor 80 mg daily- continue metoprolol 25 mg p.o. b.i.d. 2.Pulmonary edema:Pt is complaining of worsening SOB, he had received >2L NS for his CKDCXR: worsening of the infiltrateStart Lasix 40 mg IV BIDGet BNP, BMP tonight 3. Hyperlipidemia. - Lipitor 80 mg daily. 4. Hypertension. - BP controlled - Continue with the metoprolol now 25 mg p.o. b.i.d. at 2018 RPT #:[id number] OF REPORTPRProgress [id number]:00G.[id number] le for patient [id number]:18:17 HCACL 2019-06-05 08:54:00 [id number]:54:00 H CA [facility] ([facility])Neurology Consultation NoteREPORT#:[id number] REPORT STATUS: SignedDATE:06/05/19 TIME: 08 PATIENT: DUSTY FRANCOIS UNIT #: [id number]#: [id number] [address] [birth year] AGE: 58 SEX: M ATTEND: Kyung Bedoya MDA AUTHOR: Marbella Haley MD * ALL edits or amendments must be made on the electronic/computer document * History of Present Illness HPIChief complaint:syncopeHPI: 58yo M w/ PMH of DM and HTN that presents to the ED s/p syncopal episode yesterday . Pt states that he was standing in the heat when he suddenly collapsed, landing on his L side. He notes assoc sxs of diaphoresis, L shoulder pain, and L knee pain and swelling onset 1 week ago, but denies CP or any other sxs. Pt states that when he came to after syncopizing, he noticed that he was drenched in sweat. BS at the time was 218. denies hx of seizure, denies head truamaCT and MRI both show small parietal infarct, subacure. History - Adult longitudinalPast medical history:Reports: Diabetes mellitus, Hypertension, Dyslipidemia. Denies: Asthma, Coronary artery disease, Transient ischemic attack. Additional medical history:PNAAlcohol use: Denies EtOH useDrug use: Denies recreational drugsSmoking status for patients 13 years old or older: Never SmokerAllergies:Coded Allergies:No Known Allergies (09/21/18) Review of SystemsConstitutional:Reports: chills, generalized weakness. Skin:Reports: diaphoresis. Denies: abrasion, contusion. Allergy/Immun:Denies: hives, rhinorrhea. Eyes:Denies: itching, diplopia, photophobia. ENT:Denies: earache, mouth pain, nose bleeding, throat pain. Respiratory:Denies: parox nocturnal dyspnea, pleurisy, pneumonia. Cardiovascular:Reports: chest pain. GI:Reports: nausea, vomiting. Denies: GERD, hematochezia, melena. :Denies: nocturia, testicular pain. Heme:Denies: bruising, petechiae. Endocrine:Denies: polyphagia, polyuria. Neuro:Reports: change in LOC, syncope. Denies: focal weakness, gait problem. Objective Physical ExamVS:Last Documented: Result Date Time Pulse Ox 91 06/05 0600 B/P 112/65 06/05 0600 B/P Mean 82 06/05 0600 Pulse 92 06/05 0600 Resp 11 06/05 0600 Temp 37.8 06/05 0400 O2 Delivery Room air 06/04 1400 Patient Weight Weight (lb): Weight (oz): Weight (kg): 93.600 Medications:Current Home MedicationsERGOCALCIFEROL (VITAMIN D2) 50,000 UNITS PO Q7D HYDROcodone/APAP (NORCO 10/325) 1 TAB PO Q6H PRN PRN PAIN ROSUVASTATIN (CRESTOR) 40 MG PO BEDTIME INSULIN DETEMIR (LEVEMIR) 10 UNITS SUBQ Q12HR METOPROLOL TARTRATE (LOPRESSOR) 25 MG PO DAILY LISINOPRIL (ZESTRIL) 20 MG PO DAILY Active Meds + DC'd Last 24 HrsAspirin 81 MG DAILY PO Ticagrelor 90 MG BID PO (DC) Dextrose/Water 125 ML ASDIR PRN IV Dextrose/Water 250 ML ASDIR PRN IV Glucagon 1 MG ASDIR PRN IM Sodium Chloride 1,000 ML .[id number] IV Insulin Glargine 10 UNIT Q12HR SUBQ Al Hydrox/Mg Hydrox/Simethicone 30 ML Q4H PRN PRN PO Docusate Sodium 100 MG BID PRN PRN PO Ergocalciferol 50,000 INTL.UNITS Q7D PO (CKD) Hydrocodone Bitart/Acetaminophen 1 TAB Q6H PRN PRN PO Insulin Human Lispro 0 AC HS SUBQ Lactulose 20 GM Q6H PRN PRN PO Mupirocin 1 APPLIC BID NASAL Ondansetron HCl 4 MG Q4H PRN PRN IV Potassium Chloride 40 MEQ DAILY PRN PRN PO Potassium Chloride/Sodium Chloride 1,000 ML .K04Z50N IV (DC) Ticagrelor 90 MG BID PO Zolpidem Tartrate 5 MG BEDTIME PRN PRN PO Acetaminophen 650 MG Q6H PRN PRN PO Atropine Sulfate 0.5 MG ASDIR PRN IV Hydrocodone Bitart/Acetaminophen 1 TAB Q4H PRN PRN PO (DC) Sodium Chloride 1,000 ML .Q6H40M ONE IV (DC) Sodium Chloride 500 ML ASDIR PRN IV Sodium Chloride 100 ML .STK-MED ONE IV (DC) Cefazolin Sodium 0 .STK-MED ONE .ROUTE (DC) Aspirin 0 .STK-MED ONE .ROUTE (DC) Ticagrelor 0 .STK-MED ONE .ROUTE (DC) Fentanyl Citrate 0 .STK-MED ONE .ROUTE (DC) Heparin Sodium 0 .STK-MED ONE .ROUTE (DC) Heparin Sodium/Sodium Chloride 1,500 ML .STK-MED ONE IV (DC) Iopamidol 0 .STK-MED ONE IV (DC) Lidocaine HCl 0 .STK-MED ONE .ROUTE (DC) Midazolam HCl 0 .STK-MED ONE .ROUTE (DC) Nitroglycerin/Dextrose 250 ML .STK-MED ONE IV (DC) Gadoterate Meglumine 19 ML ONCE PRN IV (DC) Clindamycin Phosphate 50 ML Q6HR IV (DC) Aspirin 325 MG DAILY PO (DC) Atorvastatin Calcium 80 MG DAILY 1700 PO Enoxaparin Sodium 90 MG Q12H SUBQ (DC) Metoprolol Tartrate 25 MG BID PO Morphine Sulfate 2 MG Q3H PRN PRN IV Morphine Sulfate 4 MG Q4H PRN PRN IV (DC) Ondansetron HCl 4 MG Q6H PRN PRN IV (DC) Sodium Chloride 1,000 ML .Q10H IV (DC) General appearance: alert, awakeHead/Eyes: atraumaticENT: moist mucosal membranesNeck: full range of motion, non-tender, supple/no meningismusCardiovascular: regular rate and rhythmRespiratory: aerating well, clear to auscultationAbdomen: non-tenderExtremities: moves allMusculoskeletal: normal inspectionNeuro/VACUUM FILTER OPERATOR: alert, oriented X 4, normal speech, EOMI, PERRL, CN II-XII intact, reflexes equal bilat, normal reflexes, no motor deficits, no sensory deficits, no cerebellar deficits Diagnosis, Assessment PlanProblem List/A P: 1. Syncope 2. CVA (cerebrovascular accident) Additional comments:vascular imaging of necklipid panleasa and statineeg for syncopeno aed at this time at 0859 RPT #:[id number] OF REPORTZPXvpkcgjwfpht5017-27-60B98:54:00G.MCCR233 [id number] for patient xwhyROTKZDFYDKDJEF3993-26-75T50:59:28 [facility] 2019-06-05 04:58:00 BZaeesmgmfh731368186566-69-12P50:58:0007 [place] [address] PATIENT NAME: DUSTY FRANCOIS ADMIT DATE: 06/04/19ACCOUNT NO: [id number] ROOM NO: 3309 AGE: 58 REPORT TYPE: eELECTROCARDIOGRAM REPORT SEX: M ADMITTING PHYSICIAN:Kyung Bedoya MD ATTENDING PHYSICIAN:Kyung Bedoya MD Order:[id number] Reason : SP PCI Test Date/Time Stamp:WedJun 05 2019 04:58:25Blood Pressure : / mmHGVent. Rate : 098 BPM Atrial Rate : 098 BPM P-R Int : 120 ms QRS Dur : 084 ms QT Int : 340 ms P-R-T Axes : 033 039 052 degrees QTc Int : 434 ms Normal sinus rhythmST depression in lead V4 and V5, consider ischemiaAbnormal ECGWhen compared with ECG of 04-JUN-2019 13:56,Significant changes have occurredConfirmed by BERTHA MORENO, LAURO ([id number]) on 06/06/2019 8:47:51 AM Referred By: Self Referred Confirmed by:JIMMY STONE MD at 0848 PATIENT NAME: DUSTY FRANCOIS .[id number] Available for patient zfaaWOSRLTCLABBAMD1391-10-10E50:48:16 [facility] 2019-06-04 20:54:00 [id number]:54:0007 [address] [place] [address] PATIENT NAME: DUSTY FRANCOIS ADMIT DATE: 06/04/19ACCOUNT NO: [id number] ROOM NO: G.3309 AGE: 58 REPORT TYPE: HISTORY AND PHYSICAL SEX: M ADMITTING PHYSICIAN:Kyung Bedoya MD ATTENDING PHYSICIAN:Kyung Bedoya MD ADMISSION DATE: 06/04/2019 CHIEF COMPLAINT: Weakness and syncopal episode. HISTORY OF PRESENTING ILLNESS: This is a 58-year-old male, ex-smoker, historyof peripheral arterial disease with balloon angioplasty in the past,hypertension, diabetes, brought into the Emergency Room after witnessed syncopalepisode. The patient was outside working, suddenly collapsed landing on hisleft side on the left shoulder and knee. Loss of consciousness lasted for fewseconds. He woke up. Initially, he did have chest pain, brought into theEmergency Room. The patient denies any chest pain, palpitation, or short ofbreath. Denies any abdominal pain or diaphoresis. Denies any fever, cough, orsputum. Worked up in the Emergency Room. EKG shows sinus rhythm, LVH,nonspecific ST changes. Initial troponin was 12. Subsequent troponin was 31. The patient was evaluated by cardiology and emergently taken to the cardiaccath, showed multivessel lesion. The patient had PCI to mid circumflex and LAD,planning on staged PCI to RCA, admitted to CCU for further monitoring. PAST MEDICAL HISTORY: Peripheral arterial disease, hypertension, diabetes, andhyperlipidemia. PAST SURGICAL HISTORY: Peripheral vascular disease, angioplasty and stenting. HOME MEDICATIONS: Reviewed. Lisinopril, metoprolol, aspirin, and Levemirinsulin. ALLERGIES: NO KNOWN ALLERGIES. SOCIAL HISTORY: Ex-smoker. Denies alcohol or illicit drug use. FAMILY HISTORY: Negative for premature heart disease. SYSTEM REVIEW: A 14-point comprehensive system review was done, apart fromsymptoms mentioned in the history of presenting illness, otherwise negative. PHYSICAL EXAMINATION:VITAL SIGNS: Temperature is 98.1, pulse is 84, blood pressure 110/61.GENERAL: Middle-aged male, in no acute distress. Afebrile.HEENT: Pupils equally reactive.NECK: Supple.CARDIOVASCULAR SYSTEM: S1 and S2 regular.RESPIRATORY SYSTEM: Bilaterally good air entry. PATIENT NAME: DUSTY FRANCOIS ABDOMEN: Soft and nontender.EXTREMITIES: No edema.CENTRAL NERVOUS SYSTEM: Alert, awake, and oriented to time, place, and person. LABORATORY DATA AND DIAGNOSTIC STUDIES: Blood sugar 152. MRI of the brainwithout contrast, faint restricted diffusion enhancement of right parietal lobe,represent subacute infarct without hemorrhage or mass effect. Lipoprotein 125. Peak troponin 39. X-ray shoulders and knee, no fractures. EKG, nonspecific STchanges. WBC 8.80, hemoglobin 9.8, hematocrit 30.1, and platelets 311. Kywhpl799, potassium 4.8, chloride 105, carbon dioxide 24, glucose 228, BUN 32,creatinine 2. ASSESSMENT:1. Acute coronary syndrome, multivessel coronary artery disease, status postleft heart catheterization, percutaneous coronary intervention to mid circumflexand left anterior descending. Planning on staged percutaneous coronaryintervention to right coronary artery. We will continue to monitor in the CCU. The patient is on aspirin, Brilinta, statins, and beta blockers. We willcontinue.2. Diabetes mellitus, unknown control. We will check HbA1c. Continue Lantusand sliding scale. Continue to monitor the hemoglobin.3. Acute kidney injury. Creatinine is 2, status post iodine dye use. We willgently hydrate. Continue to monitor the kidney function. The patient mighthave an element of chronic kidney injury. If no improvement, we will considernephrology consult.4. Subacute cerebrovascular accident. On the CAT scan, no apparentneurological deficit. We will check neuro vitals. Consult neurology.5. Dyslipidemia, on statin. Deep venous thrombosis and gastrointestinalprophylaxis. Dictated By: Kyung Bedoya MD WT: HP:GRebeccaRAMON/JAVAD/NTSDD: 06/04/2019 20:54:22DT: 06/05/2019 01:01:44Conf#: [id number]/DID#: [id number] by Kyung Bedoya MD On 06/08/2019 07:26:55 PM at 1957 PATIENT NAME: DUSTY FRANCOIS and physical svoftallolb3889-63-25A18:01:00G.[id number] vailable for patient jgioZVQPYWWUMFUNVH7796-01-26A00:58:06 [facility] 2019-06-04 13:58:00 [id number]:58:00 [facility] ConsultationREPORT#:[id number] REPORT STATUS: SignedDATE:06/04/19 TIME: 1358 PATIENT: DUSTY FRANCOIS UNIT #: [id number]#: [id number] [address] [birth year] AGE: 58 SEX: M ATTEND: Kyung Bedoya MDADM AUTHOR: Yvette Rae MD * ALL edits or amendments must be made on the electronic/computer document * History - Adult longitudinalAllergies:Coded Allergies:No Known Allergies (09/21/18) Diagnosis, Assessment Plan Free Text DxA P NotesFree Text DxA P Notes:[id number] at 1358 RPT #:[id number] OF REPORTGIInmmbvmnyfbv2752-57-09X20:58:00G.FHHY873 [address]-33[address]FUTgsnqoopi for patient mwesMXJEBYKZTXPQIO6405-16-47W31:59:07 [facility] 2019-06-04 13:58:00 DImbkqulcxg482804610771-90-52N82:58:00 H [facility]Cath Post Proc - BriefREPORT#:[id number] REPORT STATUS: SignedDATE:06/04/19 TIME: 1358 PATIENT: DUSTY FRANCOIS UNIT #: [id number]#: [id number] [address] [birth year] AGE: 58 SEX: M ATTEND: Kyung Bedoya MDA AUTHOR: Yvette Rae MD * ALL edits or amendments must be made on the electronic/computer document * Cath Procedure Cath ProcedurePost-procedure diagnosis: CADProcedure performed: left heart cath, PCIPerformed by:KyraAssistant(s): noneFindings:[id number] blood loss in ml's: 0Specimens removed/altered: none at 1359 RPT #:[id number] OF REPORTPNProcedure yvai1023-96-89E00:58:00G.[id number] le for patient xtyjIRWYTJPFEDSQSU5963-37-89K00:59:58 [facility] 2019-06-04 13:58:00 DTzflbsludk933699041811-00-55M20:58:0007 [place] [address] PATIENT NAME: DUSTY FRANCOIS ADMIT DATE: 06/04/19ACCOUNT NO: [id number] ROOM NO: [facility] AGE: 58 REPORT TYPE: CONSULTATION REPORT SEX: M ADMITTING PHYSICIAN:Kyung Bedoya MD ATTENDING PHYSICIAN:Kyung Bedoya MD CONSULTATION DATE: 06/04/2019 CONSULTING PHYSICIAN: Yvette Rae MD REASON FOR THE CONSULTATION: Elevated troponin. HISTORY OF PRESENT ILLNESS: This is a 58-year-old male, very well known to [facility] the office with the past medical history significant for PAD, status postballoon angioplasty in the past; hypertension; and diabetes, who was supposed tohave at least stress test with me in the office. The patient was outside in theheat, when he suddenly collapsed, landing on his left side. He complained ofleft shoulder pain and left knee pain. Denied at that time any chest pain. Then, he decided to come to the Emergency Room. In the ER, he denied any chestpain. No shortness of breath. No fever. No chills. First set of troponinshows troponin of 12. EKG shows sinus rhythm, LVH, and nonspecific ST and Tchanges. Subsequent troponin was 39. The patient was taken emergently forcardiac catheterization. PAST MEDICAL HISTORY:1. PAD.2. Hypertension.3. Diabetes.4. Hyperlipidemia. ALLERGIES: REVIEWED PER EMR. CURRENT MEDICATIONS: Reviewed per EMR. SOCIAL HISTORY: No IV drug abuse. No alcohol. FAMILY HISTORY: Noncontributory. REVIEW OF SYSTEMS: Twelve-point review of the system is per history of presentillness and the rest is negative. PHYSICAL EXAMINATION:GENERAL: The patient is sitting in bed, in no acute distress.VITAL SIGNS: Blood pressure 126/69 and pulse is 81.NECK: No JVD. No carotid bruit.HEART: S1 and S2, regular rate and rhythm.LUNGS: Clear to auscultation bilaterally.ABDOMEN: Soft and nontender.NEUROLOGIC: He is awake, alert, and oriented x3. Nonfocal. PATIENT NAME: DUSTY FRANCOIS [id number] [address] PATIENT NAME: DUSTY FRANCOIS ADMIT DATE: 06/04/19ACCOUNT NO: [id number] ROOM NO: G.6606 AGE: 58 REPORT TYPE: CONSULTATION REPORT SEX: M ADMITTING PHYSICIAN:Kyung Bedoya MD ATTENDING PHYSICIAN:Kyung Bedoya MD EXTREMITIES: No edema. LABORATORY DATA AND DIAGNOSTIC STUDIES: Hemoglobin is 9.8, hematocrit 30.1, andplatelet count is 311. Creatinine is 2.0 and BUN is 32. Troponin is 39 and first set was 12. LDL is 125. EKG shows normal sinus rhythm, LVH, and nonspecific ST and T changes. ASSESSMENT AND PLAN: This is a 58-year-old male with history of peripheralarterial disease and hypertension, who presents with the syncopal episode. Thepatient ruled in for non-ST elevation myocardial infarction.1. Non-ST elevation myocardial infarction. The patient was given Lovenox at04:00 a.m. and aspirin as well as Lipitor 80 mg. Given his elevated troponinfrom the first set as well as the acute rise to 39, we will take the patientemergently for cardiac catheterization. Further recommendation depending on the catheterization finding. We will continue Lipitor 80 mg daily and metoprolol 25 mg p.o. b.i.d. We willhold off on adding a second antiplatelet until we do the catheterization. 2. Hyperlipidemia. Lipitor 80 mg daily.3. Hypertension. Continue with the metoprolol now 25 mg p.o. b.i.d. Bloodpressure is under control. Thank you, Dr. Bedoya for allowing me to participate in the care of thispatient. Dictated By: Yvette Rae MD WT: CON:LELIA/KRYSTYNA/NTSDD: 06/04/2019 13:58:08DT: 06/04/2019 14:26:04Conf#: [id number]/DID#: [id number] Authenticated by Yvette Rae MD On 06/14/2019 12:13:34 PM PATIENT NAME: DUSTY FRANCOIS [id number] [place] [address] PATIENT NAME: DUSTY FRANCOIS ADMIT DATE: 06/04/19ACCOUNT NO: [id number] ROOM NO: G.6606 AGE: 58 REPORT TYPE: CONSULTATION REPORT SEX: M ADMITTING PHYSICIAN:Kyung Bedoya MD ATTENDING PHYSICIAN:Kyung Bedoya MD at 1806 PATIENT NAME: DUSTY FRANCOIS :26:00G.[facility]2 [id number] for patient iprmHWINGVQXYEIBCQ5426-95-96M67:06:12 [facility] 2019-06-04 13:56:00 LBexyaqlerl965494635942-77-46K23:56:0007 [place] [id number] PATIENT NAME: DUSTY FRANCOIS ADMIT DATE: 06/04/19ACCOUNT NO: [id number] ROOM NO: 3309 AGE: 58 REPORT TYPE: eELECTROCARDIOGRAM REPORT SEX: M ADMITTING PHYSICIAN:Kyung Bedoya MD ATTENDING PHYSICIAN:Kyung Bedoya MD Order:[id number] Reason : PCI Test Date/Time Stamp:WedJun 04 2019 13:56:08Blood Pressure : / mmHGVent. Rate : 089 BPM Atrial Rate : 089 BPM P-R Int : 138 ms QRS Dur : 080 ms QT Int : 370 ms P-R-T Axes : 081 042 058 degrees QTc Int : 450 ms Normal sinus rhythmLow voltage QRSNonspecific T wave abnormalityAbnormal ECGNo previous ECGs availableConfirmed by LAURO STONE MD ([id number]) on 06/05/2019 2:32:01 PM Referred By: Kyung Bedoya Confirmed by:JIMMY STONE MD at 1432 PATIENT NAME: DUSTY FRANCOIS .[id number] Available for patient jvdiMXYGYBMANCZQYT3199-15-40J30:32:20 [facility] 2019-06-04 13:51:00 MQtviycrnjz224161122284-32-68N66:51:[address] [address] PATIENT NAME: DUSTY FRANCOIS ADMIT DATE: 06/04/19ACCOUNT NO: [id number] ROOM NO: 6606 AGE: 58 REPORT TYPE: CARDIAC CATHETERIZATION REPORT SEX: M ADMITTING PHYSICIAN:Kyung Bedoya MD ATTENDING PHYSICIAN:Kyung Bedoya MD PROCEDURE DATE: 06/04/2019 INDICATION: Non-ST elevation MN. CLINICAL HISTORY: This is a patient, well known to me from the office withhistory of PAD and hypertension, who was apparently at outside when he hadsyncopal episode. He was outside in the heat and he thought had a heat stroke. He also sustained shoulder pain and left-sided pain from the fall. In the ER,first set of troponin was 12 and subsequent one this morning was 39. Thepatient was taken emergently for cardiac catheterization. The patient was givenLovenox as well as aspirin. PROCEDURES PERFORMED: 1. Left heart catheterization and coronary angiogram. 2. Percutaneous intervention of thrombotic occlusion of the mid circumflex,culprit of the acute presentation. 3. Percutaneous intervention of the mid left anterior descending artery. 4. Moderate sedation for 57 minutes. DESCRIPTION OF THE PROCEDURE: After obtaining informed consent, both groinswere prepped and draped in sterile fashion technique. Access was obtained inthe right common femoral artery using a micropuncture kit and then a 5-Frenchsheath was placed. Then, we went with a JL4.0, left main was cannulated, andmultiple views were obtained. Then with 3DRC catheter, right coronary arterywas cannulated and multiple views were obtained. We ____ not to use too much contrast, given his renal failure with creatinine2.0, at baseline. FINDINGS: 1. The left main has luminal irregularities and divides to LAD and circumflex. 2. The circumflex, first OM is small and proximally has moderate diffusedisease. Then, the circumflex itself is large and then there is a stump and thethrombotic occlusion 100%. 3. The LAD has mid 80% stenosis. Diagonals are small. 4. The RCA has mid 80% stenosis. Rest of the RCA has moderate atherosclerosis. CONCLUSION: 1. Thrombotic occlusion of the mid circumflex, culprit of the acutepresentation. 2. Significant stenosis in the mid LAD. 3. Significant stenosis in the RCA. PATIENT NAME: DUSTY FRANCOIS INTERVENTION DESCRIPTION: Given the acute 100% occlusion of the circumflex, wewent ahead and proceeded with percutaneous intervention of the circumflex. Thesheath was upsized to 6-Somali sheath. Heparin was given. ACT was more ejaz420. Brilinta 180 was given as well as aspirin. Then, we went with an XB3.5guide and the left main was cannulated. Then, we went with a Samurai wire andwe were able to successfully cross the circumflex stenosis. Then, we put asecond wire that went into the second obtuse marginal branch. Then, weperformed balloon angioplasty using 3.0 x 12 and then a 3.0 x 15. Then, wedeployed a 3.0 x 20 Synergy stent. The stent was postdilated with 3.5 x 12 NCballoon. Post-angiogram showed the stent well expanded, no edge dissection, andno perforation. The 2 obtuse marginals have moderate atherosclerosis. Then, we turned our attention to the LAD, given his significant stenosis andsyncopal episode, suspicious for arrhythmic event. The wire easily crossed theLAD. Then, we performed direct stenting with 2.75 x 20 Synergy stent. Then,the stent was postdilated with 3.5 x 12 distally, the stent was inflated to 3.25and the proximal stent was inflated to 3.5. CONCLUSION: 1. Successful percutaneous intervention of thrombotic occlusion of the mid RCAusing Synergy stent 3.0 x 20 and postdilated to 3.5 size. 2. Successful percutaneous intervention of the mid LAD using 2.75 x 20 Synergystent and postdilated distally to 3.25 size and proximally to 3.5 size. RECOMMENDATION: 1. We will continue aspirin. 2. Continue Brilinta. 3. Staged intervention of the RCA. Thank you for allowing me to participate in the care of this patient. Dictated By: Yvette Rae MD WT: CATH:CHRISTINA/KRYSTYNA/KENDD: 06/04/2019 13:51:16DT: 06/04/2019 14:59:21Conf#: [id number]/DID#: [id number] Authenticated by Yvette Rae MD On 06/14/2019 12:13:36 PM at 1806 PATIENT NAME: DUSTY FRANCOIS Cpix8187-67-69S88:59:00G.[id number] e for patient wubiDBMZXZYVJQURFC6733-80-45R15:06:12 [facility] 2019-06-04 13:12:00 [id number]:12:00 H [facility] ([facility])Clinical NoteREPORT#:[id number] REPORT STATUS: SignedDATE:06/04/19 TIME: 131 PATIENT: DUSTY FRANCOIS UNIT #: [id number]#: [id number] [address] AGE: 58 SEX: M ATTEND: Kyung Bedoya [facility] AUTHOR: Kyung Bedoya MD * ALL edits or amendments must be made on the electronic/computer document * Clinical NoteNote:ACSSYNCOPE DM HTN SUBACTE INFARCT PLAN ASPRIN PLAVIX HEPARIN TO CATHLAB DM H/P WILL BE DICTATED at 1314 RPT #:[id number] OF REPORTCLClinical wjvf4843-84-71E45:12:00G.[id number] le for patient mzhdOGLOZXFHLBPNXS0445-70-05I07:14:53 [facility] 2019-06-03 23:59:00 [id number]:59:00 H [facility] ([facility])EMERGENCY PROVIDER REPORTREPORT#:[id number] REPORT STATUS: SignedDATE:06/03/19 TIME: 2358 PATIENT: DUSTY FRANCOIS UNIT #: [id number]#: [id number] ROOM[place]BED: [facility]-1AGE: 58 SEX: M PCP PHYS: Shawanda Wild DOSERVICE AUTHOR: Rashad Louis MD * ALL edits or amendments must be made on the electronic/computer document * HPI-Syncope GeneralConfirmed Patient YesInitial Greet Date/Time 06/03/19 3909 PresentationChief Complaint Collapsed suddenlySyncope Description First episodeHx Obtained From Patient)( Onset Occurred TodaySymptom Duration BriefProgression since Onset Gradually improvingAssociated withReports: Leg swelling. Associated Other joint pain, diaphoresis Free Text HPI NotesFree Text HPI Ggaur41gm M w/ PMH of DM and HTN that presents to the ED s/p syncopal episode earliertoday. Pt states that he was standing in the heat when he suddenly collapsed, landing on his L side. He notes assoc sxs of diaphoresis, L shoulder pain, and Lknee pain and swelling onset 1 week ago, but denies CP or any other sxs. Pt states that when he came to after syncopizing, he noticed that he was drenched in sweat. BS at the time was 218. Portions of this section were scribed by Krys Crystal on 06/04/19 at 0106 Risk-Syncope Risk StratificationGlasgow Coma Score > Age 5 Arielle Coma Score > Age 5 Response Value Eye Opening Open spontaneously (4) 4 Verbal Response Oriented (5) 5 Motor Response Obeys commands (6) 6 Total 15 )( Coronary Artery Disease Risk factors reviewed)( Thoracic Aortic Dissection Risk factors reviewedSubarachnoid Hemorrhage Risk factors reviewed, Risk factors N/A)( Pulmonary Embolism Risk factors reviewedHEART for MACE HEART for MACE Response Value History Low index of suspicion 0 ECG Interpretation Normal ECG 0 Age Age 45 - 65 1 Risk Factors for CAD No risk factors known 0 Total 1 HEART Score for MACE 0-3 (low risk 0.9%-1.7%) HEART Score Reference Resource material only. Click 'Cancel' button and information will not be inserted into or become part of the medical record Risk factors considered for determining a patient's HEART Score include: hypercholesterolemia (hyperlipidemia), hypertension, diabetes mellitus, cigarette smoking, positive family history and obesity. Major Adverse Cardiac Events (MACE) include: acute myocardial infarction, ischaemic stroke, coronary arterial occlusion and . References:Ken GIBBONS, Sebastien BAIRES, et al. Chest pain in the emergency room: value of the HEART score. Net Heart J. 2008 Phil:16(6):191-6. PubMed PMID: [id number]; PubMed CentralPMCID: [id number]. Sebastien BAIRES, Six AJ, et al. A prospective validation of the HEART score for chest pain patients at the emergency department. Int J Cardiol. 2013 Aug 3:168(3):2153-8. Doi: 10.1016/j.ijcard.2013.01.255. Epub 2012Jan 19. PubMed PMID: [id number]. Portions of this section were scribed by Krys Crystal on 06/03/19 at 2359 Review of Systems ROS StatementsAll systems rev neg except as marked. Focused Review of SystemsCardiovascularReports: Syncope. MusculoskeletalReports: Extremity pain, Joint pain, Joint swelling. Portions of this section were scribed by Krys Crystal on 06/03/19 at 2359 Past Medical History - AdultStated Complaint RIGHT KNEE SWELLING, WEAKNESS, PASSED OUTAllergiesCoded Allergies:No Known Allergies (09/21/18) Home MedicationsDiscontinued ScriptsLISINOPRIL (ZESTRIL) 20 MG PO BID LISINOPRIL (ZESTRIL) 20 MG PO BID #60 TAB Prov: 09/23/18 DC: 06/04/19 1415 Patient stopped takingMETOPROLOL TARTRATE (LOPRESSOR) 25 MG PO Q6H METOPROLOL TARTRATE (LOPRESSOR) 25 MG PO Q6H #60 TAB Prov: 09/23/18 DC: 06/04/19 1415 Patient stopped takingASPIRIN EC (ECOTRIN) 81 MG PO DAILY ASPIRIN EC (ECOTRIN) 81 MG PO DAILY #30 TAB Prov: 09/23/18 DC: 06/04/19 1415 Patient stopped takingONDANSETRON (ZOFRAN) 4 MG PO Q6H PRN PRN nausea ONDANSETRON (ZOFRAN) 4 MG PO Q6H PRN PRN nausea #30 TABS Prov: 09/23/18 DC: 06/04/19 1415 Patient stopped taking Reported MedicationsERGOCALCIFEROL (VITAMIN D2) 50,000 UNITS PO Q7D HYDROcodone/APAP (NORCO 10/325) 1 TAB PO Q6H PRN PRN PAIN ROSUVASTATIN (CRESTOR) 40 MG PO BEDTIME INSULIN DETEMIR (LEVEMIR) 10 UNITS SUBQ Q12HR METOPROLOL TARTRATE (LOPRESSOR) 25 MG PO DAILY LISINOPRIL (ZESTRIL) 20 MG PO DAILY Past Medical History:Reports: Diabetes mellitus, Hypertension, Dyslipidemia. Denies: Asthma, Coronary artery disease, Transient ischemic attack. Additional Medical HistoryPNAAlcohol Use Denies EtOH useDrug Use Denies recreational drugs Portions of this section were scribed by Krys Crystal on 06/03/19 at 2359 Physical Exam Vital SignsVital SignsFirst Documented: Result Date Time Pulse Ox 98 06/03 2352 B/P 177/102 06/03 2352 B/P Mean 127 06/03 2352 O2 Delivery Room air 06/03 2352 Temp 38.3 06/03 2352 Pulse 93 06/03 2352 Resp 16 06/03 2352 Last Documented: Result Date Time Pulse Ox 98 06/03 2352 B/P 177/102 06/03 2352 B/P Mean 127 06/03 2352 O2 Delivery Room air 06/03 235 Temp 38.3 06/03 2352 Pulse 93 06/03 2352 Resp 16 06/03 2352 Review of Vital Signs Reviewed Focused PEGeneral/Const General/Const Awake, Alert, No acute distress, Well developed, Cooperative, Not toxic appearingMS Head Head Atraumatic, NormocephalicEyes Eyes PERRLEars/Nose/Throat Ears/Nose/Throat Airway patent, Mucous membranes moistMS Neck Neck Supple, Full range of motionResp/Chest Respiratory/Chest Breath sounds NL, Breath sounds = bilat, No respiratory distress, No rales, No rhonchi, No wheezingCardiovascular Cardiovascular Heart rate NL, Regular rhythm, Heart sounds NLAbdomen/GI Abdomen/GI Soft, Non-tender, No guarding, No rebound, No distentionMS Back Back Atraumatic, Inspection NL, Full range of motion, Painless range of motion, Non-tender, No midline vertebral tend, No paraspinal tenderness, No muscle spasmMS Lower Extrem Lower Ext/Pelvis/MS Full range of motion Text/Dict NotesR knee warm w/ some swelling, FROMSkin Skin Warm, Dry, IntactNeurologic Neurologic Oriented X3, Speech NL, No motor deficits, No sensory deficits, CNII - XII intact, Reflexes equal bilat, Cerebellar NL, Memory NLPsychiatric Psychiatric Affect NL, Mood NL Additional PEMS Upper Extrem Text/Dict NotesTTP over anterior L shoulder Portions of this section were scribed by Krys Crystal on 06/04/19 at 0028 Interpretation Diagnostics Lab Results InterpretationResultsLaboratory Tests 06/04/19 0027:[Embedded Image Not Available] 06/04/19 0016:[Embedded Image Not Available]Laboratory Tests: 06/048 0027 0016 Chemistry POC Sodium (134 - 147 MMOL/L) 138 POC Potassium (3.4 - 5.0 MMOL/L) 4.8 POC Chloride (100 - 108 MMOL/L) 105 Carbon Dioxide (21 - 33 mmol/L) 24.0 POC BUN (7 - 18 MG/DL) 32 H POC Creatinine (0.6 - 1.3 MG/DL) 2.0 H Estimated GFR (MDRD) (ML/MIN) 45 POC Glucose (70 - 110 MG/DL) 228 H Lactic Acid (0.90 - 1.70 MMOL/L) 0.7 L POC Ioniz Calcium Arley (1.12 - 1.32 MG/DL) 1.21 B-Natriuretic Peptide (0 - 100 PG/ML) 115.3 H Hematology WBC (4.5 - 11.0 x10 3/uL) 8.80 RBC (4.00 - 5.60 x10 6/uL) 3.58 L Hgb (12.5 - 16.9 g/dL) 9.8 L Hct (37.5 - 50.7 %) 30.1 L MCV (81.0 - 99.0 fL) 84.1 MCH (27.0 - 33.0 pg) 27.4 MCHC (33.0 - 37.0 g/dL) 32.6 L RDW (11.5 - 14.5 %) 13.4 Plt Count (150 - 400 x10 3/uL) 311 MPV (7.0 - 9.0 fL) 9.7 H Neut % (Auto) (56.0 - 77.0 %) 68.4 Lymph % (Auto) (14.0 - 32.0 %) 21.8 Highland % (Auto) (4.8 - 9.0 %) 8.0 Eos % (Auto) (0.3 - 3.7 %) 1.0 Baso % (Auto) (0.0 - 2.0 %) 0.2 Neut # (Auto) (2.0 - 7.6 x10 3/uL) 6.02 Lymph # (Auto) (1.0 - 3.8 x10 3/uL) 1.92 [place]land # (Auto) (0.1 - 0.8 x10 3/uL) 0.70 Eos # (Auto) (0.0 - 0.2 x10 3/uL) 0.09 Baso # (Auto) (0.0 - 0.2 x10 3/uL) 0.02 Abs Immat Gran (auto) (0.00 - 0.03 x10 3/uL) 0.05 H Add Manual Diff NO Immature Gran % (0.0 - 2.0 %) 0.6 Nucleated RBC % (0 - 0 %) 0.0 Nucleated RBCs # (Man) (0.0 - 0.1 x10 3/uL) 0.00 Microbiology: Date/Time Procedure - Status Source Growth 06/04 16 Blood Culture - RES BLOOD 06/04 16 Blood Culture - RES BLOOD Recent Impressions:CAT SCAN - CT HEAD/BRAIN W/O CONT 06/04 36 Report Impression - Status: SIGNED Entered: 06/04/2019 0101 IMPRESSION: 1. Hypodensity in the right parietal lobe may represent mild edema orrecent infarct. If indicated, MRI can be obtained for completeassessment2.. No noncontrast CT evidence of acute hemorrhage, calvarial fractureor midline shift. Finding were discussed with Dr. Louis on 06/04/2019, 0056 hours SL: JSYED-HImpression By: Pranav Lemos M.D.RADIOLOGY - XR KNEE 1 OR 2 V RT 06/04 0038 Report Impression - Status: SIGNED Entered: 06/04/2019 0121 IMPRESSION:1. No acute fracture or dislocation of the right knee seen SL:JSYED-HImpression By: Pranav Lemos M.D.RADIOLOGY - XR SHOULDER 2 + V LT 06/04 0038 Report Impression - Status: SIGNED Entered: 06/04/2019 0124 IMPRESSION:1. No acute fracture or dislocation of the left shoulder seen SL:JSYED-HImpression By: Pranav Lemos M.D.RADIOLOGY - XR CHEST 1 V 06/04 38 Report Impression - Status: SIGNED Entered: 06/04/2019 0117 IMPRESSION: No acute cardiopulmonary disease seen. SL: [ALFRED]Impression By: [email or web address] Veronica Lemos M.D. Lab Imaging StatementLaboratory radiographic studies reviewed and considered in the medical decision-making. Point of Care TestingPulse Oximetry Pulse Ox % 98 On: Room air Interpretation Interpreted by me, Pulse oximetry normal Time 2352 ECG #1 InterpretationText/Dict Notenonspecific ST and T wave abnormalityDate 06/04/19Time 0012Interpreted by ED physicianNL ECG Interpretation Normal sinus rhythm, No STEMIRate 93 Portions of this section were scribed by Krys Crystal on 06/04/19 at 0105 Re-Evaluation MDM )( Re-Evaluation/Progress #1Text/Dict NoteCounseled pt on diagnosis/lab/imaging results and need for further evaluation. Pt agrees w/ plan of admission.Time of Re-Eval 0029)( Re-Eval Status Improved ED CourseMedication(s) OrderedMedication(s) Ordered:Central Nervous System Agents Sig/Jean Carlos Start time Last Medication Dose Route Stop Time Status Admin Morphine Sulfate 4 MG Q4H PRN PRN 06/04 0030 DC 06/04 IV 06/04 2328 2036 Gastrointestinal Drugs Sig/Jean Carlos Start time Last Medication Dose Route Stop Time Status Admin Ondansetron HCl 4 MG Q6H PRN PRN 06/04 0030 DC IV 06/048 ConsultationConsultation Referral/Consult Name Rizwan Valdivia MD Laminating Machine Tender Called Neurology (IR) Requested Call Time 0105 Requested Call Date 06/04/19 Call Returned Call returned Call Returned Time 0105 Call Returned Date 06/04/19 Free Text Consult NotesAdvises to hold off on any CTAs at this time. Portions of this section were scribed by Krys Crystal on 06/04/19 at 0106 Patient Discharge Departure Vital Signs/ConditionVital SignsFirst Documented: Result Date Time Pulse Ox 98 06/03 2352 B/P 177/102 06/03 2352 B/P Mean 127 06/03 2352 O2 Delivery Room air 06/03 2352 Temp 38.3 06/03 235 Pulse 93 07/20 2352 Resp 16 06/03 2352 Last Documented: Result Date Time Pulse Ox 98 06/03 2352 B/P 177/102 06/03 2352 B/P Mean 127 06/03 2352 O2 Delivery Room air 06/03 2352 Temp 38.3 06/03 2352 Pulse 93 06/03 2352 Resp 16 06/03 2352 All vital signs available at the time of this entry have been reviewed. Condition Stable Clinical ImpressionClinical ImpressionPrimary Impression: SyncopeSecondary Impressions: Cellulitis of right knee, Right parietal lobe lesion, SUBACUTE CVA Disposition DecisionAdmit Admit Physician Name Kyung Bedoya MD Admit Physician Hospitalist Request Time 002 Request Date 06/04/19 )( Admission Accepts Yes )( Accepted Time 27 )( Accepted Date 06/04/19 Call Information will see patient Discharge/Care PlanCounseled Regarding Diagnosis, Lab results, Imaging studies, Need for admission Critical CareTime Spent (minutes): 30Services Performed Patient management by me, Time spent at bedside, Reviewing test results, Reviewing imaging, Discussing patient care, Documentation in record, Time with fam/surrogateSeparately billable procedures excluded from time. CC Note 1Total critical care time [30] minutes. Total critical care time documented does not include time spent on separately billed procedures or the services of residents, students, nurses or physician assistants. I personally saw and examined the patient. I have reviewed all diagnostic interpretations and treatment plans as written. I was present for the tim portions of any proceduresperformed and the inclusive time noted in any critical care statement. Critical care time includes patient management by me, time spent at the patients bedside,time to review lab and imaging results, discussing patient care, documentation in the medical record, and time spent with the family or caregiver. Supervising Physician Note Scribe StatementKrys Crystal, 06/03/19 0000, scribing for and in the presence of Dr. Louis.Signed By: Krys Crystal, 06/03/19 0000 Portions of this section were scribed by Krys Crystal on 06/04/19 at 0028 at 2029RPT #:[id number] OF REPORTEDEmergency department [id number]:59:00G.[id number] able for patient [id number]:30:08 HCACL 2019-06-03 23:59:00 [id number]:59:00 H [facility] ([facility])EMERGENCY PROVIDER REPORTREPORT#:[id number] REPORT STATUS: SignedDATE:06/03/19 TIME: 2358 PATIENT: DUSTY FRANCOIS UNIT #: [id number]#: [id number] [address] 58 SEX: M PCP PHYS: Shawanda Wild DOSERVEMLEY AUTHOR: Rashad Louis MD * ALL edits or amendments must be made on the electronic/computer document * See AddendumHPI-Syncope GeneralConfirmed Patient YesInitial Greet Date/Time 06/03/19 2332 PresentationChief Complaint Collapsed suddenlySyncope Description First episodeHx Obtained From Patient)( Onset Occurred TodaySymptom Duration BriefProgression since Onset Gradually improvingAssociated withReports: Leg swelling. Associated Other joint pain, diaphoresis Free Text HPI NotesFree Text HPI [id number] M w/ PMH of DM and HTN that presents to the ED s/p syncopal episode earliertoday. Pt states that he was standing in the heat when he suddenly collapsed, landing on his L side. He notes assoc sxs of diaphoresis, L shoulder pain, and Lknee pain and swelling onset 1 week ago, but denies CP or any other sxs. Pt states that when he came to after syncopizing, he noticed that he was drenched in sweat. BS at the time was 218. Portions of this section were scribed by Krys Crystal on 06/04/19 at 0106 Risk-Syncope Risk StratificationGlasgow Coma Score > Age 5 Al[place] Coma Score > Age 5 Response Value Eye Opening Open spontaneously (4) 4 Verbal Response Oriented (5) 5 Motor Response Obeys commands (6) 6 Total 15 )( Coronary Artery Disease Risk factors reviewed)( Thoracic Aortic Dissection Risk factors reviewedSubarachnoid Hemorrhage Risk factors reviewed, Risk factors N/A)( Pulmonary Embolism Risk factors reviewedHEART for MACE HEART for MACE Response Value History Low index of suspicion 0 ECG Interpretation Normal ECG 0 Age Age 45 - 65 1 Risk Factors for CAD No risk factors known 0 Total 1 HEART Score for MACE 0-3 (low risk 0.9%-1.7%) HEART Score Reference Resource material only. Click 'Cancel' button and information will not be inserted into or become part of the medical record Risk factors considered for determining a patient's HEART Score include: hypercholesterolemia (hyperlipidemia), hypertension, diabetes mellitus, cigarette smoking, positive family history and obesity. Major Adverse Cardiac Events (MACE) include: acute myocardial infarction, ischaemic stroke, coronary arterial occlusion and . References:Sebastien Espitia, et al. Chest pain in the emergency room: value of the HEART score. [facility] Heart J. 2008 Phil:16(6):191-6. PubMed PMID: [id number]; PubMed CentralPMCID: [id number]. Sebastien BAIRES, Ken GIBBONS, et al. A prospective validation of the HEART score for chest pain patients at the emergency department. Int J Cardiol. 2013 Aug 3:168(3):2153-8. Doi: 10.1016/j.ijcard.2013.01.255. Ep2012Jan 19. PubMed PMID: [id number]. Portions of this section were scribed by Krys Crystal on 06/03/19 at 2359 Review of Systems ROS StatementsAll systems rev neg except as marked. Focused Review of SystemsCardiovascularReports: Syncope. MusculoskeletalReports: Extremity pain, Joint pain, Joint swelling. Portions of this section were scribed by Krys Crystal on 06/03/19 at 2359 Past Medical History - AdultStated Complaint RIGHT KNEE SWELLING, WEAKNESS, PASSED OUTAllergiesCoded Allergies:No Known Allergies (09/21/18) Home MedicationsDiscontinued ScriptsLISINOPRIL (ZESTRIL) 20 MG PO BID LISINOPRIL (ZESTRIL) 20 MG PO BID #60 TAB Prov: 09/23/18 DC: 06/04/19 1415 Patient stopped takingMETOPROLOL TARTRATE (LOPRESSOR) 25 MG PO Q6H METOPROLOL TARTRATE (LOPRESSOR) 25 MG PO Q6H #60 TAB Prov: 09/23/18 DC: 06/04/19 1415 Patient stopped takingASPIRIN EC (ECOTRIN) 81 MG PO DAILY ASPIRIN EC (ECOTRIN) 81 MG PO DAILY #30 TAB Prov: 09/23/18 DC: 06/04/19 1415 Patient stopped takingONDANSETRON (ZOFRAN) 4 MG PO Q6H PRN PRN nausea ONDANSETRON (ZOFRAN) 4 MG PO Q6H PRN PRN nausea #30 TABS Prov: 09/23/18 DC: 06/04/19 1415 Patient stopped taking Reported MedicationsERGOCALCIFEROL (VITAMIN D2) 50,000 UNITS PO Q7D HYDROcodone/APAP (NORCO 10/325) 1 TAB PO Q6H PRN PRN PAIN ROSUVASTATIN (CRESTOR) 40 MG PO BEDTIME INSULIN DETEMIR (LEVEMIR) 10 UNITS SUBQ Q12HR METOPROLOL TARTRATE (LOPRESSOR) 25 MG PO DAILY LISINOPRIL (ZESTRIL) 20 MG PO DAILY Past Medical History:Reports: Diabetes mellitus, Hypertension, Dyslipidemia. Denies: Asthma, Coronary artery disease, Transient ischemic attack. Additional Medical HistoryPNAAlcohol Use Denies EtOH useDrug Use Denies recreational drugs Portions of this section were scribed by Krys Crystal on 06/03/19 at 2359 Physical Exam Vital SignsVital SignsFirst Documented: Result Date Time Pulse Ox 98 06/03 2352 B/P 177/102 06/03 2352 B/P Mean 127 06/03 2352 O2 Delivery Room air 06/03 2352 Temp 38.3 06/03 235 Pulse 93 06/03 2352 Resp 16 06/032 Last Documented: Result Date Time Pulse Ox 98 06/03 235 B/P 177/102 06/03 2352 B/P Mean 127 06/03 2352 O2 Delivery Room air 06/03 2352 Temp 38.3 06/03 235 Pulse 93 06/03 2352 Resp 16 06/03 235 Review of Vital Signs Reviewed Focused PEGeneral/Const General/Const Awake, Alert, No acute distress, Well developed, Cooperative, Not toxic appearingMS Head Head Atraumatic, NormocephalicEyes Eyes PERRLEars/Nose/Throat Ears/Nose/Throat Airway patent, Mucous membranes moistMS Neck Neck Supple, Full range of motionResp/Chest Respiratory/Chest Breath sounds NL, Breath sounds = bilat, No respiratory distress, No rales, No rhonchi, No wheezingCardiovascular Cardiovascular Heart rate NL, Regular rhythm, Heart sounds NLAbdomen/GI Abdomen/GI Soft, Non-tender, No guarding, No rebound, No distentionMS Back Back Atraumatic, Inspection NL, Full range of motion, Painless range of motion, Non-tender, No midline vertebral tend, No paraspinal tenderness, No muscle spasmMS Lower Extrem Lower Ext/Pelvis/MS Full range of motion Text/Dict NotesR knee warm w/ some swelling, FROMSkin Skin Warm, Dry, IntactNeurologic Neurologic Oriented X3, Speech NL, No motor deficits, No sensory deficits, CNII - XII intact, Reflexes equal bilat, Cerebellar NL, Memory NLPsychiatric Psychiatric Affect NL, Mood NL Additional PEMS Upper Extrem Text/Dict NotesTTP over anterior L shoulder Portions of this section were scribed by Krys Crystal on 06/04/19 at 0028 Interpretation Diagnostics Lab Results InterpretationResultsLaboratory Tests 06/04/19 0027:[Embedded Image Not Available] 06/04/19 0016:[Embedded Image Not Available]Laboratory Tests: 06/04 06/04 06/04 0028 0027 0016 Chemistry POC Sodium (134 - 147 MMOL/L) 138 POC Potassium (3.4 - 5.0 MMOL/L) 4.8 POC Chloride (100 - 108 MMOL/L) 105 Carbon Dioxide (21 - 33 mmol/L) 24.0 POC BUN (7 - 18 MG/DL) 32 H POC Creatinine (0.6 - 1.3 MG/DL) 2.0 H Estimated GFR (MDRD) (ML/MIN) 45 POC Glucose (70 - 110 MG/DL) 228 H Lactic Acid (0.90 - 1.70 MMOL/L) 0.7 L POC Ioniz Calcium Arley (1.12 - 1.32 MG/DL) 1.21 B-Natriuretic Peptide (0 - 100 PG/ML) 115.3 H Hematology WBC (4.5 - 11.0 x10 3/uL) 8.80 RBC (4.00 - 5.60 x10 6/uL) 3.58 L Hgb (12.5 - 16.9 g/dL) 9.8 L Hct (37.5 - 50.7 %) 30.1 L MCV (81.0 - 99.0 fL) 84.1 MCH (27.0 - 33.0 pg) 27.4 MCHC (33.0 - 37.0 g/dL) 32.6 L RDW (11.5 - 14.5 %) 13.4 Plt Count (150 - 400 x10 3/uL) 311 MPV (7.0 - 9.0 fL) 9.7 H Neut % (Auto) (56.0 - 77.0 %) 68.4 Lymph % (Auto) (14.0 - 32.0 %) 21.8 [place]land % (Auto) (4.8 - 9.0 %) 8.0 Eos % (Auto) (0.3 - 3.7 %) 1.0 Baso % (Auto) (0.0 - 2.0 %) 0.2 Neut # (Auto) (2.0 - 7.6 x10 3/uL) 6.02 Lymph # (Auto) (1.0 - 3.8 x10 3/uL) 1.92 [place] # (Auto) (0.1 - 0.8 x10 3/uL) 0.70 Eos # (Auto) (0.0 - 0.2 x10 3/uL) 0.09 Baso # (Auto) (0.0 - 0.2 x10 3/uL) 0.02 Abs Immat Gran (auto) (0.00 - 0.03 x10 3/uL) 0.05 H Add Manual Diff NO Immature Gran % (0.0 - 2.0 %) 0.6 Nucleated RBC % (0 - 0 %) 0.0 Nucleated RBCs # (Man) (0.0 - 0.1 x10 3/uL) 0.00 Microbiology: Date/Time Procedure - Status Source Growth 06/04 16 Blood Culture - RES BLOOD 06/04 16 Blood Culture - RES BLOOD Recent Impressions:CAT SCAN - CT HEAD/BRAIN W/O CONT 06/04 0036 Report Impression - Status: SIGNED Entered: 06/04/2019 0101 IMPRESSION: 1. Hypodensity in the right parietal lobe may represent mild edema orrecent infarct. If indicated, MRI can be obtained for completeassessment2.. No noncontrast CT evidence of acute hemorrhage, calvarial fractureor midline shift. Finding were discussed with Dr. Louis on 06/04/2019, 0056 hours SL: JSYED-HImpression By: Pranav Lemos M.D.RADIOLOGY - XR KNEE 1 OR 2 V RT 06/04 0038 Report Impression - Status: SIGNED Entered: 06/04/2019 0121 IMPRESSION:1. No acute fracture or dislocation of the right knee seen SL:JSYED-HImpression By: Pranav Lemos M.D.RADIOLOGY - XR SHOULDER 2 + V LT 06/04 0038 Report Impression - Status: SIGNED Entered: 06/04/2019 0124 IMPRESSION:1. No acute fracture or dislocation of the left shoulder seen SL:JSYED-HImpression By: Pranav Lemos M.D.RADIOLOGY - XR CHEST 1 V 06/04 003 Report Impression - Status: SIGNED Entered: 06/04/2019 0117 IMPRESSION: No acute cardiopulmonary disease seen. SL: [JSYED-H]Impression By: Pranav Lemos M.D. Lab Imaging StatementLaboratory radiographic studies reviewed and considered in the medical decision-making. Point of Care TestingPulse Oximetry Pulse Ox % 98 On: Room air Interpretation Interpreted by tn, Pulse oximetry normal Time 2352 ECG #1 InterpretationText/Dict Notenonspecific ST and T wave abnormalityDate 06/04/19Time 0012Interpreted by ED physicianNL ECG Interpretation Normal sinus rhythm, No STEMIRate 93 Portions of this section were scribed by Krys Crystal on 06/04/19 at 0105 Re-Evaluation MDM )( Re-Evaluation/Progress #1Text/Dict NoteCounseled pt on diagnosis/lab/imaging results and need for further evaluation. Pt agrees w/ plan of admission.Time of Re-Eval 0029)( Re-Eval Status Improved ED CourseMedication(s) OrderedMedication(s) Ordered:Central Nervous System Agents Sig/Jean Carlos Start time Last Medication Dose Route Stop Time Status Admin Morphine Sulfate 4 MG Q4H PRN PRN 06/04 0030 DC 06/04 IV 06/04 Gastrointestinal Drugs Sig/Jean Carlos Start time Last Medication Dose Route Stop Time Status Admin Ondansetron HCl 4 MG Q6H PRN PRN 06/04 0030 DC IV 06/04 2328 ConsultationConsultation Referral/Consult Name Rizwan Valdivia MD Laminating Machine Tender Called Neurology (IR) Requested Call Time 010 Requested Call Date 06/04/19 Call Returned Call returned Call Returned Time 010 Call Returned Date 06/04/19 Free Text Consult NotesAdvises to hold off on any CTAs at this time. Portions of this section were scribed by Krys Crystal on 06/04/19 at 0106 Patient Discharge Departure Vital Signs/ConditionVital SignsFirst Documented: Result Date Time Pulse Ox 98 06/03 2352 B/P 177/102 06/03 2352 B/P Mean 127 06/03 2352 O2 Delivery Room air 06/03 2352 Temp 38.3 06/03 2352 Pulse 93 06/03 2352 Resp 16 06/03 2352 Last Documented: Result Date Time Pulse Ox 98 06/03 2352 B/P 177/102 06/03 2352 B/P Mean 127 06/03 2352 O2 Delivery Room air 06/03 2352 Temp 38.3 06/03 2352 Pulse 93 06/03 2352 Resp 16 06/03 2352 All vital signs available at the time of this entry have been reviewed. Condition Stable Clinical ImpressionClinical ImpressionPrimary Impression: SyncopeSecondary Impressions: Cellulitis of right knee, Right parietal lobe lesion, SUBACUTE CVA Disposition DecisionAdmit Admit Physician Name Kyung Bedoya MD Admit Physician Hospitalist Request Time 0028 Request Date 06/04/19 )( Admission Accepts Yes )( Accepted Time 0028 )( Accepted Date 06/04/19 Call Information will see patient Discharge/Care PlanCounseled Regarding Diagnosis, Lab results, Imaging studies, Need for admission Critical CareTime Spent (minutes): 30Services Performed Patient management by me, Time spent at bedside, Reviewing test results, Reviewing imaging, Discussing patient care, Documentation in record, Time with fam/surrogateSeparately billable procedures excluded from time. CC Note 1Total critical care time [30] minutes. Total critical care time documented does not include time spent on separately billed procedures or the services of residents, students, nurses or physician assistants. I personally saw and examined the patient. I have reviewed all diagnostic interpretations and treatment plans as written. I was present for the tim portions of any proceduresperformed and the inclusive time noted in any critical care statement. Critical care time includes patient management by me, time spent at the patients bedside,time to review lab and imaging results, discussing patient care, documentation in the medical record, and time spent with the family or caregiver. Supervising Physician Note Scribe StatementKrys Crystal, 06/03/19 0000, scribing for and in the presence of Dr. Louis.Signed By: Krys Crystal, 06/03/19 0000 Portions of this section were scribed by Krys Crystal on 06/04/19 at 0028 at 2029 Addendum 1: 07/10/19 1250 by Rashad Louis MD Portions of this note were transcribed by a Scribe. I, personally performed thehistory, physical exam and medical decision making; and confirmed the accuracy of the information in the transcribed note. at 1250RPT #:[id number] OF REPORTCedar [facility] department [id number]:59:00G.[id number] able for patient yruuRJLQDCBWZREMAX0815-20-18P98:51:01 HCACL
[2023-10-25 06:56] LABS: Specific Gravity 1.014 (1.005-1.030); Urine Bacteria None Seen /HPF (<20); Urine Bilirubin NEGATIVE (Negative); Urine Blood Negative (Negative); Urine Clarity Clear (Clear); Urine Color Colorless (Yellow); Urine Glucose NEGATIVE (Negative); Urine Mucus Slight /HPF (None Seen); Urine Protein 1+ (Negative); Urine RBC <5 /HPF (None Seen); Urine Urobilinogen Normal (Normal); Urine pH 5.5 (5.0-7.0)
[2023-10-25 06:57] LABS: Absolute Lymphocytes (CBC) 1.8 K/uL (0.7-4.9); Hematocrit 29.6 % (39.6-49.0); Lymphocytes % 26.7 % (15.3-44.8); MCV 82.3 fL (80-100); MPV 8.2 fL (7.6-11.3); Platelets 286 thou/uL (152-406)
[2023-10-25 07:07] LABS: Albumin 2.9 g/dL (3.4-5.0); Bilirubin Total 0.2 mg/dL (0.2-1.0); Potassium 5.7 mEq/L (3.5-5.1); Protein, Total 6.7 g/dL (6.4-8.2)
--- NOTE | 2023-10-25 07:45 | RAD REPORT ---
EXAM DESCRIPTION: CT - Abdomen Pelvis Wo Contrast - 10/25/2023 6:59 am CLINICAL HISTORY: r flank pain COMPARISON: No comparisons TECHNIQUE: Thin cut axial CT imaging of the abdomen and pelvis was performed without IV contrast. Mu ltiplanar reformats were generated and reviewed. All CT scans are performed using dose optimization technique as appropriate and may include automated exposure control or mA/KV adjustment according to patient size. FINDINGS: No suspicious findings in the lung bases. The liver, spleen, adrenal glands, and pancreas show no suspicious findings. Gallbladder and biliary tree are also without suspicious finding. Symmetric renal contour, without suspicious parenchymal findings within limits of noncontrast techniq ue. No evidence of radiopaque calculi or hydroureteronephrosis. No dilated bowel loops or bowel wall thickening. No free air, free fluid or inflammatory stranding. N o hernia, mass or bulky lymphadenopathy. The urinary bladder is without significant finding. No suspicious bony findings. IMPRESSION: No acute intra-abdominal process.
[2023-10-25] MEDS ORDERED: INSULIN REGULAR (HUMAN) 100 UNIT/ML IV ONE (08:53)
--- NOTE | 2023-10-25 08:56 | EDPHYS ---
Physician Documentation [facility] Name: Dusty Cintron Age: 63 yrs Sex: Male : 1960 Arrival Date: 10/25/2023 Time: 05:43 Bed 19 Private MD: ED Physician Jasper Alex HPI: 10/25 06:03 This 63 yrs old Black Male presents to ER via Unassigned with complaints of Low Back rt Pain, RT SIDE BACK PAIN. 06:03 Patient presents to the ED with a right-sided back pain. Is been present for about 24 rt hours. Patient denies any discrete injury. Denies nausea, vomiting, urinary symptoms. Denies numbness, tingling. Patient does state that he has not had a bowel movement in about 4 days, he states that this is not uncommon for him and that he frequently has to take MiraLAX due to constipation. Denies other acute complaints, symptoms are moderate in severity, no other aggravating or alleviating factors. Pain is aching in nature and nonradiating.. Historical: - Allergies: 06:17 No Known Allergies; pf1 - PMHx: 06:17 CAD; CVA; Diabetes - IDDM; Myocardial infarction; Pneumonia; retinal detachment; pf1 07:31 Kidney disease; kc6 - PSHx: 06:17 stents x 4; toe; right eye surgery from retinal detachment; pf1 - Immunization history:: Adult Immunizations up to date, 3 doses of Moderna Last tetanus immunization: > 10 years ago. - Social history:: Smoking status: Patient denies any tobacco usage or history of. Patient uses alcohol, occasionally. Patient/guardian denies using street drugs. - Family history:: not pertinent. ROS: 06:03 Constitutional: Negative for fever, chills, and weight loss, Cardiovascular: Negative rt for chest pain, palpitations, and edema, Respiratory: Negative for shortness of breath, cough, wheezing, and pleuritic chest pain, MS/Extremity: Negative for injury and deformity, Skin: Negative for injury, rash, and discoloration, Neuro: Negative for headache, weakness, numbness, tingling, and seizure, Psych: Negative for depression, anxiety, suicide ideation, homicidal ideation, and hallucinations, 06:03 Abdomen/GI: Positive for constipation, Negative for abdominal pain, 06:03 Back: Positive for flank pain, Negative for injury or acute deformity, Exam: 06:03 Constitutional: This is a well developed, well nourished patient who is awake, alert, rt and in no acute distress. Head/Face: Normocephalic, atraumatic. Chest/axilla: Normal chest wall appearance and motion. Nontender with no deformity. No lesions are appreciated. Cardiovascular: Regular rate and rhythm with a normal S1 and S2. No gallops, murmurs, or rubs. Normal PMI, no JVD. No pulse deficits. Respiratory: Lungs have equal breath sounds bilaterally, clear to auscultation and percussion. No rales, rhonchi or wheezes noted. No increased work of breathing, no retractions or nasal flaring. Abdomen/GI: Soft, non-tender, with normal bowel sounds. No distension or tympany. No guarding or rebound. No evidence of tenderness throughout. Skin: Warm, dry with normal turgor. Normal color with no rashes, no lesions, and no evidence of cellulitis. MS/ Extremity: Pulses equal, no cyanosis. Neurovascular intact. Full, normal range of motion. Neuro: Awake and alert, GCS 15, oriented to person, place, time, and situation. Cranial nerves II-XII grossly intact. Motor strength 5/5 in all extremities. Sensory grossly intact. Cerebellar exam normal. Normal gait. Psych: Awake, alert, with orientation to person, place and time. Behavior, mood, and affect are within normal limits. 06:03 Back: Mild right costovertebral angle tenderness, no midline tenderness, no step-offs, 08:13 ECG was reviewed by the Attending Physician. ms3 Vital Signs: 05:54 BP 154 / 101; Pulse 74; Resp 18; Temp 97.3; Pulse Ox 99% on R/A; Weight 99.79 kg; pf1 Height 5 ft. 11 in. ; Pain 4/10; 06:47 BP 162 / 104; Pulse 96; Pulse Ox 97% on R/A; tm6 07:12 BP 154 / 100; Pulse 98; Resp 16 S; Pulse Ox 100% on R/A; kc6 08:17 BP 166 / 105; Pulse 96; Resp 14 S; Pulse Ox 100% on R/A; kc6 09:13 BP 147 / 89; Pulse 96; Resp 17 S; Pulse Ox 100% on R/A; kc6 05:54 Body Mass Index 30.68 (99.79 kg, 180.34 cm) pf1 05:54 Pain Scale: Adult pf1 MDM: 05:55 Patient medically screened. rt 06:28 Differential diagnosis: Mechanical back pain, pyelonephritis, ureteral stone. rt Transition of care: After a detail discussion of the patient's case, care is transferred to Jasper Alex DO. 07:07 Transition of care: Care assumed from Milton Martino MD. ms3 08:40 Data reviewed: vital signs, nurses notes, lab test result(s), EKG, radiologic studies, ms3 and as a result, I will admit patient. Consideration of Admission/Observation Patient was admitted/placed on observation. Management of patient was discussed with the following: Medical Operations Supervisor: Dr Kacie Loza, Insulin, Glucose. I considered the following discharge prescriptions or medication management in the emergency department Medications were administered in the Emergency Department. See MAR. Independent interpretation of the following test(s) in the Emergency Department EKG: See my EKG interpretation above. Care significantly affected by the following chronic conditions: Chronic Kidney Disease. Counseling: I had a detailed discussion with the patient and/or guardian regarding the historical points, exam findings, and any diagnostic results supporting the discharge/admit diagnosis, lab results, radiology results, the need for further work-up and treatment in the hospital. ED course: Case discussed with Dr. Maldonado. He will consult. Discussed case with Hospitalist and they accept patient.. 10/25 06:02 Order name: CBC with Diff; Complete Time: 07:38 rt 10/25 06:02 Order name: CMP; Complete Time: 07:38 rt 12 06:02 Order name: UAM; Complete Time: 07:38 rt 10/25 07:53 Order name: Potassium; Complete Time: 10:17 ms3 10/25 09:00 Order name: Glucose, Ancillary Testing; Complete Time: 09:24 EDMS 10/25 09:27 Order name: Sodium Level; Complete Time: 10:17 EDMS 10/25 09:27 Order name: Chloride Level; Complete Time: 10:17 EDMS 10/25 09:27 Order name: Glucose Level; Complete Time: 10:17 EDMS 10/25 10:19 Order name: Glucose, Ancillary Testing; Complete Time: 10:40 EDMS 10/25 11:55 Order name: Glucose, Ancillary Testing; Complete Time: 14:00 EDMS 10/25 15:59 Order name: Basic Metabolic Panel EDMS 10/25 17:05 Order name: Glucose, Ancillary Testing EDMS 10/25 06:02 Order name: CT Abd/Pelvis - Without Contrast; Complete Time: 07:53 rt 10/25 07:53 Order name: EKG; Complete Time: 07:53 ms3 10/25 08:59 Order name: CONS Physician Consult EDMS EC:13 Rate is 99 beats/min. Rhythm is regular. QRS Mabel is Normal. UT interval is normal. QRS ms3 interval is normal. Clinical impression: Normal ECG. Interpreted by me. Reviewed by me. Administered Medications: 08:53 Drug: Lokelma Powder 10 grams PO once Route: PO; kc6 09:53 Follow up: Response: No adverse reaction kc6 08:53 Drug: D50W IVP 50 ml IVP once; (1 amp) Route: IVP; Site: right antecubital; kc6 09:53 Follow up: Response: No adverse reaction kc6 08:53 Drug: Insulin Regular Human IVP 10 units IVP once {Co-Signature: cp4 (dao Michael).} Route: IVP; Site: right antecubital; 09:53 Follow up: Response: No adverse reaction kc6 08:53 Drug: Calcium Gluconate IVPB 1 grams IVPB once over 60 mins; (mix in NS 100 mL) Route: kc6 IVPB; Infused Over: 60 mins; Site: right antecubital; 09:32 Follow up: Response: No adverse reaction; IV Status: Completed infusion; IV Intake: [id number] Disposition Summary: 10/25/23 08:56 Hospitalization Ordered Notes: Hospitalization Status: Inpatient Admission ms3 Provider: Maldonado Maldonado ms3 Condition: Stable ms3 Problem: new ms3 Symptoms: are unchanged ms3 Bed/Room Type: Standard ms3 Location: Telemetry/MedSurg (Inpatient)(10/25/23 18:09) bd Room Assignment: 411(10/25/23 18:09) bd Diagnosis - Hyperkalemia ms3 - Unspecified kidney failure ms3 Forms: - Medication Reconciliation Form ms3 - SBAR form ms3 - Leadership Thank You Letter ms3 Signatures: Dispatcher [employer] EDMS Estefani Harris bd Alex, Jasper, DO DO ms3 Gretchen Smith, RN RN kc6 Milton Martino MD MD rt Lili Hall RN RN pf1 Luly Michael cp4 Corrections: (The following items were deleted from the chart) 08:57 08:40 ED course: Case discussed with Dr. Rawls. He will consult. Discussed case with ms3 Hospitalist and they accept patient.. ms3 09:20 08:54 BASIC METABOLIC PANEL+C.LAB.BRZ ordered. EDMS EDMS 13:52 08:56 Telemetry/MedSurg (Inpatient) ms3 bd 13:52 08:56 ms3 bd 18: 13:52 [facility] ER HOLD bd bd 18:09 13:52 ERHOLD- bd bd
--- NOTE | 2023-10-25 08:56 | ER ---
Nurse's Notes [facility] Name: Dusty Cintron Age: 63 yrs Sex: Male : 1960 Arrival Date: 10/25/2023 Time: 05:43 Bed 19 Private MD: Diagnosis: Hyperkalemia;Unspecified kidney failure Presentation: 10/25 05:54 Chief complaint: Patient states: right flank pain of 4,onset yesterday with pf1 constipation for 4 days. Patient stated took Miralax on Wednesday. Patient denies any injury. 05:54 Coronavirus screen: Vaccine status: Patient reports receiving the 2nd dose of the covid pf1 vaccine. Client denies travel out of the [place] in the last 14 days. At this time, the client does not indicate any symptoms associated with coronavirus-19. Ebola Screen: Patient negative for fever greater than or equal to 101.5 degrees Fahrenheit, and additional compatible Ebola Virus Disease symptoms. Initial Sepsis Screen: Does the patient meet any 2 criteria? No. Patient's initial sepsis screen is negative. Does the patient have a suspected source of infection? No. Patient's initial sepsis screen is negative. Risk Assessment: Do you want to hurt yourself or someone else? Patient reports no desire to harm self or others. 05:54 Method Of Arrival: Ambulatory pf1 05:54 Acuity: DAVY 3 pf1 Historical: - Allergies: 06:17 No Known Allergies; pf1 - PMHx: 06:17 CAD; CVA; Diabetes - IDDM; Myocardial infarction; Pneumonia; retinal detachment; pf1 07:31 Kidney disease; kc6 - PSHx: 06:17 stents x 4; toe; right eye surgery from retinal detachment; pf1 - Immunization history:: Adult Immunizations up to date, 3 doses of Moderna Last tetanus immunization: > 10 years ago. - Social history:: Smoking status: Patient denies any tobacco usage or history of. Patient uses alcohol, occasionally. Patient/guardian denies using street drugs. - Family history:: not pertinent. Screenin:23 [facility] ED Fall Risk Assessment (Adult) History of falling in the last 3 months, pf1 including since admission No falls in past 3 months (0 pts) Confusion or Disorientation No (0 pts) Intoxicated or Sedated No (0 pts) Impaired Gait No (0 pts) Mobility Assist Device Used No (0 pt) Altered Elimination No (0 pt) Score/Fall Risk Level 0 - 2 = Low Risk Oriented to surroundings, Maintained a safe environment, Educated pt \T\ family on fall prevention, incl call for assistance when getting out of bed, Assessed \T\ reinforced patient's understanding of fall precautions, Provided non-skid footwear, Hourly rounding (assess needs \T\ fall precautionary measures) done, Used ambulatory aids as needed (educated on \T\ assisted with), Used gait belt as appropriate. Abuse screen: Denies threats or abuse. Nutritional screening: No deficits noted. Tuberculosis screening: No symptoms or risk factors identified. Assessment: 06:21 General: Appears in no apparent distress. comfortable, well groomed, well developed, pf1 Behavior is calm, cooperative, appropriate for age, quiet. Pain: Complains of pain in right flank pain Pain currently is 4 out of 10 on a pain scale. Neuro: No deficits noted. Level of Consciousness is awake, alert, obeys commands, Oriented to person, place, time, situation. Cardiovascular: No deficits noted. Capillary refill < 3 seconds Patient's skin is warm and dry. Respiratory: No deficits noted. Airway is patent Respiratory effort is even, unlabored, Respiratory pattern is regular, symmetrical. GI: Abdomen is round non-distended. GI: Reports constipation. : No deficits noted. No signs and/or symptoms were reported regarding the genitourinary system. EENT: No deficits noted. No signs and/or symptoms were reported regarding the EENT system. 06:50 Reassessment: Patient appears in no apparent distress at this time. Patient and/or tm6 family updated on plan of care and expected duration. Pain level reassessed. Patient is alert, oriented x 3, equal unlabored respirations, skin warm/dry/pink. 07:00 General: Appears in no apparent distress. comfortable, well groomed, well developed, kc6 Behavior is calm, cooperative, appropriate for age. Pain: Complains of pain in back. Neuro: Level of Consciousness is awake, alert, obeys commands, Oriented to person, place, time, situation, Appropriate for age. Cardiovascular: Denies chest pain, shortness of breath, Heart tones S1 S2 present Capillary refill < 3 seconds Rhythm is sinus rhythm. Respiratory: Airway is patent Trachea midline Respiratory effort is even, unlabored, Respiratory pattern is regular, symmetrical. GI: No signs and/or symptoms were reported involving the gastrointestinal system. : No signs and/or symptoms were reported regarding the genitourinary system. EENT: No signs and/or symptoms were reported regarding the EENT system. Derm: No signs and/or symptoms reported regarding the dermatologic system. Skin is intact, is healthy with good turgor, Skin is pink, warm \T\ dry. Musculoskeletal: No signs and/or symptoms reported regarding the musculoskeletal system. Circulation, motion, and sensation intact. Capillary refill < 3 seconds, Range of motion: intact in all extremities. 08:00 Reassessment: Patient appears in no apparent distress at this time. No changes from [facility] previously documented assessment. Patient and/or family updated on plan of care and expected duration. Pain level reassessed. Patient is alert, oriented x 3, equal unlabored respirations, skin warm/dry/pink. 09:00 Reassessment: Patient appears in no apparent distress at this time. No changes from [facility] previously documented assessment. Patient and/or family updated on plan of care and expected duration. Pain level reassessed. Patient is alert, oriented x 3, equal unlabored respirations, skin warm/dry/pink. 09:20 Reassessment: Freda kowalski) [phone]. kc6 18:11 Reassessment: attempted to call report to 4th floor. no answer at this time. kc6 18:22 Reassessment: attempted to call report to 4th floor. no answer at this time. kc6 18:53 Reassessment: attempted to call report to 4th floor. no answer at this time. kc6 Vital Signs: 05:54 BP 154 / 101; Pulse 74; Resp 18; Temp 97.3; Pulse Ox 99% on R/A; Weight 99.79 kg; pf1 Height 5 ft. 11 in. ; Pain 4/10; 06:47 BP 162 / 104; Pulse 96; Pulse Ox 97% on R/A; tm6 07:12 BP 154 / 100; Pulse 98; Resp 16 S; Pulse Ox 100% on R/A; kc6 08:17 BP 166 / 105; Pulse 96; Resp 14 S; Pulse Ox 100% on R/A; kc6 09:13 BP 147 / 89; Pulse 96; Resp 17 S; Pulse Ox 100% on R/A; kc6 05:54 Body Mass Index 30.68 (99.79 kg, 180.34 cm) pf1 05:54 Pain Scale: Adult pf1 ED Course: 05:49 Patient arrived in ED. gm2 05:49 Milton Martino MD is Attending Physician. rt 05:54 Patient has correct armband on for positive identification. Bed in low position. Call ha1 light in reach. Side rails up X 1. Adult w/ patient. 06:17 Triage completed. pf1 06:20 Arm band placed on left wrist. pf1 06:24 No provider procedures requiring assistance completed. pf1 06:35 Josseline Williamson, CRISTINA is Primary Nurse. tm6 07:00 Report received from Irina Garza RN. kc6 07:01 CT Abd/Pelvis - Without Contrast In Process Unspecified. EDMS 07:06 Report given to Gretchen EVANS. tm6 07:07 Attending Physician role handed off by Milton Martino MD ms3 07:07 Jasper Alex DO is Attending Physician. ms3 08:09 Client placed on continuous cardiac and pulse oximetry monitoring. NIBP monitoring kc6 applied. youth nutritional monitor on. 08:09 EKG done, by ED staff, reviewed by Jasper Alex DO. kc6 08:53 Inserted saline lock: 20 gauge in left antecubital area, using aseptic technique. kc6 Patient maintains SpO2 saturation greater than 95% on room air. 08:55 Maldonado Maldonado MD is Hospitalizing Provider. ms3 10:02 Patient admitted, IV remains in place. kc6 Administered Medications: 08:53 Drug: Lokelma Powder 10 grams PO once Route: PO; kc6 09:53 Follow up: Response: No adverse reaction kc6 08:53 Drug: D50W IVP 50 ml IVP once; (1 amp) Route: IVP; Site: right antecubital; kc6 09:53 Follow up: Response: No adverse reaction kc6 08:53 Drug: Insulin Regular Human IVP 10 units IVP once {Co-Signature: cp4 (Alec, kcVianca Mauricio).} Route: IVP; Site: right antecubital; 09:53 Follow up: Response: No adverse reaction kc6 08:53 Drug: Calcium Gluconate IVPB 1 grams IVPB once over 60 mins; (mix in NS 100 mL) Route: kc6 IVPB; Infused Over: 60 mins; Site: right antecubital; 09:32 Follow up: Response: No adverse reaction; IV Status: Completed infusion; IV Intake: [id number] Medication: 10:02 VIS not applicable for this client. kc6 Intake: 09:32 IV: 50ml; Total: 50ml. kc6 Outcome: 08:56 Decision to Hospitalize by Provider. ms3 10:02 Admitted to ER Hold. Please see [facility] for further documentation. kc6 10:02 Condition: good 10:02 Instructed on the need for admit, 20:42 Patient left the ED. jb4 Signatures: Dispatcher [employer] EDMS Abdulaziz Elise, RN RN jb4 Jasper Alex DO DO ms3 Irina Garza, RN RN Gretchen Escalante RN RN kc6 Milton Martino MD MD rt Finley, Pamala, RN RN jia1 Shira Sauceda 2 Josseline Williamson RN RN 6 Luly Michael 4
[2023-10-25] MEDS ORDERED: D5W 250 ML IV ONE (08:58)
[2023-10-25] MEDS ORDERED: CALCIUM GLUCONATE 1 GM IVPB 1 GM/50 ML BAG IV ONE (08:58)
[2023-10-25] MEDS ORDERED: SODIUM ZIRCONIUM CYCLOSILICATE 10 GM/PKT PO ONE ×2 (09:00→12:00)
[2023-10-25] MEDS ORDERED: INSULIN REGULAR (HUMAN) 100 UNIT/ML ONE (09:00)
--- NOTE | 2023-10-25 09:00 | P.HP ---
Certification for Inpatient Patient admitted to: Inpatient With expected LOS: <2 Midnights Patient will require the following post-hospital care: None Practitioner: I am a practitioner with admitting privileges, knowledge of patient current condition, hospital course, and medical plan of care. Services: Services provided to patient in accordance with Admission requirements found in Title 42 Section 412.3 of the Code of Federal Regulations Patient History Date of Service: 10/25/23 Reason for admission: acute renal failure History of Present Illness: 63 yrs old Black Male with past medical history of CAD; CVA; Diabetes - IDDM; Myocardial infarction; Pneumonia; retinal detachment; Kidney disease presents to ER with right flank pain, started 24 hours ago. Current right flank pain 4/10 non radiating. He denies kidney stones, hx UTI, CP, Shortness of breath, NVD, dysuria, fever. He reports history of CKD, not on HD. He sees nephrology in [place].He reports recent retinal detachment, post op on eye gtts. He reports constipation x 4 days. he reports taking Miralax with no relief. Plan to admit for acute renal failure, hyperkalemia, Lab evaluation. K 6.3, HH 9.4, 29.6, hypoalbumunemia 2.9, UA WNL, CT abd pelvis, IMPRESSION: No acute intra- abdominal process. EKG Rate is 99 beats/min. Rhythm is regular. QRS Katy is Normal. MI interval is normal. QRS interval is normal. Clinical impression: Normal ECG. Allergies No Known Allergies Allergy (Unverified 08/14/12 08:53) Home Medications: Aspirin 81 mg PO DAILY 12/30/20 Atorvastatin Calcium [Lipitor] 80 mg PO BEDTIME 12/30/20 Furosemide [Lasix*] 40 mg PO DAILY 12/30/20 Hydrocodone Bit/Acetaminophen [Hydrocodon-Acetaminophn 10-325] 1 each PO Q6HP PRN 12/30/20 Insulin -Regular Human [Novolin -R*] 15 unit SQ BID 12/30/20 Insulin NPH Human Isophane [Novolin N] 25 unit SQ BID 12/30/20 Metoprolol Succinate [Toprol Xl*] 25 mg PO BID 12/30/20 Tamsulosin [Flomax*] 0.4 mg PO DAILY 12/30/20 Ticagrelor [Brilinta*] 90 mg PO BID 12/30/20 Amlodipine [Norvasc*] 10 mg PO DAILY 30 Days #30 tab 01/02/21 Hydralazine [Apresoline*] 50 mg PO TID 30 Days #90 tab 01/02/21 Promethazine Tab [Phenergan*] 12.5 mg PO Q6HP PRN #10 tab 01/02/21 carvediloL [Coreg*] 12.5 mg PO BID 30 Days #60 tab 01/02/21 predniSONE [Deltasone*] 10 mg PO SEECOM #21 tab 01/02/21 - Past Medical/Surgical History Diabetic: Yes -: Coronary artery disease -: Diabetes mellitus type 2 insulin dependent -: Chronic kidney disease 4 -: Hypertension -: Hyperlipidemia -: Coronary stent -: Rt 2nd toe amputated -: retinal detactment Psychosocial/ Personal History: Retired, lives at home with family - Family History Mother -: Heart disease, Diabetes Father -: Diabetes - Social History Alcohol use: Yes CD- Drugs: No Caffeine use: Yes Review of Systems PER HPI Physical Examination - Physical Exam General: Alert, In no apparent distress, Oriented x3 HEENT: Atraumatic, Normocephalic Neck: Supple, 2+ carotid pulse no bruit Respiratory: Clear to auscultation bilaterally, Normal air movement Cardiovascular: No edema, Normal pulses Gastrointestinal: Normal bowel sounds, Soft and benign Musculoskeletal: No clubbing, No swelling Neurological: Normal gait, Normal speech - Studies Laboratory Data (last 24 hrs) 10/25/23 10/25/23 10/25/23 08:01 06:35 06:35 WBC 6.60 Hgb 9.4 L Hct 29.6 L Plt Count 286 Sodium 139 Potassium 6.3 H* 5.7 H BUN 62 H Creatinine 2.98 H Glucose 164 H Total Bilirubin 0.2 AST 18 ALT 23 Alkaline Phosphatase 93 Assessment and Plan - Plan Assessment/Plan Plan to admit for acute renal failure hyperkalemia nephrology consult, He reports history of CKD, not on HD. He sees nephrology in [place]. CT abdomen no acute intra abd process, EKG Rate is 99 beats/min. Rhythm is regular. QRS Katy is Normal. MI interval is normal. QRS interval is normal. Clinical impression: Normal ECG Lab evaluation. K 6.3, HH 9.4, 29.6, hypoalbumunemia 2.9. retinal detachment, post op on eye gtts. constipation Miralax, prn stool softeners HX CAD HX CVA Diabetes - IDDM Myocardial infarction Hx Pneumonia resume appop home meds DVT scd Diet DM Full code Discharge Plan: Home Plan to discharge in: 48 Hours - Advance Directives Does patient have a Living Will: No Does patient have a Durable POA for Healthcare: No - Code Status/Comfort Care Code Status: Full Code Physician Review: Patient Assessed, Agree with Above Assessment and Plan Critical Care: No Time Spent Managing Pts Care (In Minutes): 55
[2023-10-25 09:54] VITALS: BMI 30.2
[2023-10-25 10:17] VITALS: O2SAT 100
[2023-10-25] MEDS ORDERED: GLUCAGON 1 MG/VIAL IM PRN (11:17)
[2023-10-25] MEDS ORDERED: D50W 25 GM/50 ML SYRINGE IV PRN (11:17)
[2023-10-25] MEDS ORDERED: POLYETHYL GLY 3350 17 GM/DOSE PO PRN (11:18)
[2023-10-25] MEDS ORDERED: SENOSIDES 8.6 MG TAB PO PRN (11:18)
--- NOTE | 2023-10-25 11:25 | P.CNS ---
Date of Consult: 10/25/23 Reason for Consult: Hyperkalemia/ CKD IV Requesting Physician: Maldonado Maldonado Chief Complaint: Right flank pain History of Present Illness: 63 yrs old Black Male with past medical history of CAD; CVA; Diabetes - IDDM; Myocardial infarction; Pneumonia; retinal detachment; Kidney disease presents to ER with right flank pain, started 24 hours ago. Current right flank pain 4/10 non radiating. He denies kidney stones, hx UTI, CP, Shortness of breath, NVD, dysuria, fever. He reports history of CKD, not on HD. He sees nephrology in [place].He reports recent retinal detachment, post op on eye gtts. He reports constipation x 4 days. he reports taking Miralax with no relief. Plan to admit for acute renal failure, hyperkalemia, Lab evaluation. K 6.3, HH 9.4, 29.6, hypoalbumunemia 2.9, UA WNL, CT abd pelvis, IMPRESSION: No acute intra- abdominal process. EKG Rate is 99 beats/min. Rhythm is regular. QRS [place] is Normal. [place] interval is normal. QRS interval is normal. Clinical impression: Normal ECG. 06:03 This 63 yrs old Black Male presents to ER via Unassigned with complaints of Low Back rt Pain, RT SIDE BACK PAIN. 06:03 Patient presents to the ED with a right-sided back pain. Is been present for about 24 rt hours. Patient denies any discrete injury. Denies nausea, vomiting, urinary symptoms. Denies numbness, tingling. Patient does state that he has not had a bowel movement in about 4 days, he states that this is not uncommon for him and that he frequently has to take MiraLAX due to constipation. Denies other acute complaints, symptoms are moderate in severity, no other aggravating or alleviating factors. Pain is aching in nature and nonradiating. He follows with nephrology in [place]. He denies NSAIDs. He reports eating a fair amount of potatoes lately. He also does not take his furosemide every day. Allergies No Known Allergies Allergy (Unverified 08/14/12 08:53) Home medications list reviewed: Yes Home Medications: Aspirin 81 mg PO DAILY 12/30/20 Atorvastatin Calcium [Lipitor] 80 mg PO BEDTIME 12/30/20 Furosemide [Lasix*] 40 mg PO DAILY 12/30/20 Hydrocodone Bit/Acetaminophen [Hydrocodon-Acetaminophn 10-325] 1 each PO Q6HP PRN 12/30/20 Insulin -Regular Human [Novolin -R*] 15 unit SQ BID 12/30/20 Insulin NPH Human Isophane [Novolin N] 25 unit SQ BID 12/30/20 Metoprolol Succinate [Toprol Xl*] 25 mg PO BID 12/30/20 Tamsulosin [Flomax*] 0.4 mg PO DAILY 12/30/20 Ticagrelor [Brilinta*] 90 mg PO BID 12/30/20 Amlodipine [Norvasc*] 10 mg PO DAILY 30 Days #30 tab 01/02/21 Promethazine Tab [Phenergan*] 12.5 mg PO Q6HP PRN #10 tab 01/02/21 carvediloL [Coreg*] 12.5 mg PO BID 30 Days #60 tab 01/02/21 predniSONE [Deltasone*] 10 mg PO SEECOM #21 tab 01/02/21 Bumetanide 1 mg PO BID 10/25/23 Hydralazine [Apresoline*] 100 mg PO TID 10/25/23 Semaglutide [Rybelsus] 3 mg PO DAILY 10/25/23 Valsartan 80 mg PO DAILY 10/25/23 - Past Medical/Surgical History Diabetic: Yes -: CAD -: IDDM II -: CKD IV -: HTN -: HLD -: BPH with LUTS -: Coronary stent -: Rt 2nd toe amputated Psychosocial/ Personal History: Retired, lives at home with family - Family History Mother Medical History: Heart disease, Diabetes Father Medical History: Diabetes - Social History Alcohol use: Yes CD- Drugs: No Caffeine use: Yes Place of Residence: Home Review of Systems 10-point ROS is otherwise unremarkable Cardiovascular: Edema Physical Examination General: In no apparent distress, Oriented x3, Cooperative HEENT: Atraumatic Neck: Supple Respiratory: Normal air movement Cardiovascular: Edema Gastrointestinal: Soft and benign, Non-distended Musculoskeletal: No clubbing, No contractures Integumentary: No rashes, No cyanosis Neurological: Normal speech Laboratory Data (last 24 hrs) 10/25/23 10/25/23 10/25/23 08:53 08:01 06:35 WBC Hgb Hct Plt Count Sodium Cancelled Cancelled 139 Potassium Cancelled 6.3 H* 5.7 H BUN Cancelled Cancelled 62 H Creatinine Cancelled Cancelled 2.98 H Glucose Cancelled Cancelled 164 H Total Bilirubin 0.2 AST 18 ALT 23 Alkaline Phosphatase 93 10/25/23 06:35 WBC 6.60 Hgb 9.4 L Hct 29.6 L Plt Count 286 Sodium Potassium BUN Creatinine Glucose Total Bilirubin AST ALT Alkaline Phosphatase Imagings Data: EXAM DESCRIPTION: CT - Abdomen Pelvis Wo Contrast - 10/25/2023 6:59 am CLINICAL HISTORY: r flank pain COMPARISON: No comparisons TECHNIQUE: Thin cut axial CT imaging of the abdomen and pelvis was performed without IV contrast. Multiplanar reformats were generated and reviewed. All CT scans are performed using dose optimization technique as appropriate and may include automated exposure control or mA/KV adjustment according to patient size. FINDINGS: No suspicious findings in the lung bases. The liver, spleen, adrenal glands, and pancreas show no suspicious findings. Gallbladder and biliary tree are also without suspicious finding. Symmetric renal contour, without suspicious parenchymal findings within limits of noncontrast technique. No evidence of radiopaque calculi or hydroureteronephrosis. No dilated bowel loops or bowel wall thickening. No free air, free fluid or inflammatory stranding. No hernia, mass or bulky lymphadenopathy. The urinary bladder is without significant finding. No suspicious bony findings. IMPRESSION: No acute intra-abdominal process. Conclusions/Impression: Stage I BRENDA may be CRS CKD IV with Proteinuria -No NSAIDs Hyperkalemia -Agree with Lokelma -Lasix X1 dose HTN with CKD -Restart Amlodipine and Metoprolol LE Edema -Lasix 20mg IV X1 dose -Start Lasix 40mg PO Daily DM II with CKD -RISS Anemia in chronic illness -Monitor H&H -Retacrit prn BPH with LUTS -Restart tamsulosin Thank you kindly for the consultation Case reviewed with Dr. Alex
[2023-10-25] MEDS: INSULIN REGULAR (HUMAN) 100 UNIT/ML SQ SCH ×3 (11:30→21:00)
[2023-10-25] MEDS ORDERED: FUROSEMIDE 20 MG/ 2ML VIAL IV ONE (12:10)
[2023-10-25] MEDS: AMLODIPINE 10 MG TAB PO SCH (12:15)
[2023-10-25] MEDS ORDERED: FUROSEMIDE 20 MG/ 2ML VIAL ONE (13:19)
[2023-10-25] MEDS ORDERED: AMLODIPINE 10 MG TAB ONE (13:19)
[2023-10-25 15:57] LABS: Potassium 5.3 mEq/L (3.5-5.1)
[2023-10-25] MEDS: METOPROLOL TAR 25 MG TAB PO SCH (17:38)
[2023-10-25] MEDS ORDERED: METOPROLOL TAR 25 MG TAB ONE (17:50)
[2023-10-25] MEDS ORDERED: TAMSULOSIN 0.4 MG SR CAP PO SCH (22:31)
[2023-10-25] MEDS ORDERED: ATORVASTATIN 80 MG TAB ONE (22:51)
[2023-10-25] MEDS: HYDRALAZINE HCL 25 MG TABLET PO SCH (23:04)
[2023-10-26] MEDS: METOPROLOL TAR 25 MG TAB PO SCH ×2 (05:57→17:35)
[2023-10-26 06:33] LABS: Specific Gravity 1.014 (1.005-1.030); Urine Bacteria <20 /HPF (<20); Urine Bilirubin NEGATIVE (Negative); Urine Blood Negative (Negative); Urine Clarity Turbid (Clear); Urine Color Light-Yellow (Yellow); Urine Glucose NEGATIVE (Negative); Urine Mucus Slight /HPF (None Seen); Urine Protein 1+ (Negative); Urine RBC <5 /HPF (None Seen); Urine Sperm Present (None Seen); Urine Urobilinogen Normal (Normal)
[2023-10-26 07:26] LABS: Absolute Lymphocytes (CBC) 1.6 K/uL (0.7-4.9); Hematocrit 28.2 % (39.6-49.0); Lymphocytes % 24.6 % (15.3-44.8); MPV 8.3 fL (7.6-11.3); Platelets 260 thou/uL (152-406); RBC Red Blood Cell Count 3.44 M/uL (4.33-5.43)
[2023-10-26 07:46] LABS: Phosphorus 4.3 mg/dL (2.5-4.9); Potassium 5.5 mEq/L (3.5-5.1); Uric Acid 8.5 mg/dL (3.5-7.2)
[2023-10-26 08:17] LABS: NT PRO-BNP 302 pg/mL (<125)
[2023-10-26 08:19] LABS: C-Reactive Protein < 2.90 mg/L (<3.00)
[2023-10-26] MEDS ORDERED: TAMSULOSIN 0.4 MG SR CAP PO SCH (09:00)
[2023-10-26] MEDS ORDERED: FUROSEMIDE 40 MG TABLET PO SCH (09:00)
--- NOTE | 2023-10-26 09:08 | P.PN ---
Subjective Date of Service: 10/26/23 Chief Complaint: Right flank pain Subjective: No C/O voiced, Improving - Physical Exam General: Alert, In no apparent distress, Oriented x3 HEENT: Atraumatic, Normocephalic Neck: Supple, 2+ carotid pulse no bruit Respiratory: Clear to auscultation bilaterally, Normal air movement Cardiovascular: No edema, Normal pulses Gastrointestinal: Normal bowel sounds, Soft and benign Musculoskeletal: No clubbing, No swelling Neurological: Normal gait, Normal speech Review of Systems per HPI Physical Examination - Vital Signs Temperature: 97.6 F Blood Pressure: 136/75 Pulse: 69 Respirations: 17 Pulse Ox (%): 98 - Studies Laboratory Data (last 24 hrs) 10/25/23 10/25/23 08:53 08:01 Sodium Cancelled Cancelled Potassium Cancelled 6.3 H* BUN Cancelled Cancelled Creatinine Cancelled Cancelled Glucose Cancelled Cancelled Assessment And Plan - Plan Assessment/Plan Plan to admit for acute renal failure hyperkalemia nephrology consult, He reports history of CKD, not on HD. He sees nephrology in [place]. CT abdomen no acute intra abd process, EKG Rate is 99 beats/min. Rhythm is regular. QRS [place] is Normal. [place] interval is normal. QRS interval is normal. Clinical impression: Normal ECG Lab evaluation. K 6.3, HH 9.4, 29.6, hypoalbumunemia 2.9 repeat 5 10/26 5.5 neph following, daily cmp, mag retinal detachment, resume post op on eye gtts. microcytic anemia HH 6.2, 29.6, 8.9, 28.2 constipation Miralax, prn stool softeners HX CAD HX CVA Diabetes - IDDM Myocardial infarction Hx Pneumonia resume appop home meds DVT scd Diet DM Full code Discharge Plan: Home Plan to discharge in: 48 Hours - Code Status/Comfort Care Code Status: Full Code Physician Review: Patient Assessed, Agree with Above Assessment and Plan Critical Care: No Time Spent Managing PTS Care (In Minutes): 35
[2023-10-26] MEDS: HYDRALAZINE HCL 25 MG TABLET PO SCH ×2 (09:20→14:06)
[2023-10-26] MEDS: INSULIN REGULAR (HUMAN) 100 UNIT/ML SQ SCH ×3 (09:20→16:30)
[2023-10-26] MEDS: AMLODIPINE 10 MG TAB PO SCH (09:21)
[2023-10-26 10:05] LABS: UR PROTEIN 89.4 mg/dL (<11.9); Urine Protein/Creatinine Ratio 0.45 ratio (<0.15)
[2023-10-26 10:46] LABS: UR MICROALBUMIN 62.6 mg/dL (< 1.9)
--- NOTE | 2023-10-26 13:46 | EKG ---
Test Date: 2023-10-25 Test Time: 08:05:49 Barrel Tester: SAMM MEASUREMENT RESULTS: Intervals: Rate: 99 [place]: 154 QRSD: 92 QT: 344 QTc: 441 [place]: P: 42 [place]: 154 QRS: 96 T: 8 INTERPRETIVE STATEMENTS: Normal sinus rhythm Normal ECG Compared to ECG 02/24/2023 23:16:39 T-wave abnormality no longer present Electronically Signed On 10-26-23 13:40:56 RN CASE MGR by Geovanni Castle
[2023-10-26] MEDS ORDERED: SODIUM ZIRCONIUM CYCLOSILICATE 10 GM/PKT PO ONE (15:45)
--- NOTE | 2023-10-26 16:04 | P.DS ---
Admission Date: 10/25/23 Discharge Date: 10/26/23 Disposition: ROUTINE DISCHARGE Reason for Admission: Right flank pain Brief History of Present Illness: 63 yrs old Black Male with past medical history of CAD; CVA; Diabetes - IDDM; Myocardial infarction; Pneumonia; retinal detachment; Kidney disease presents to ER with right flank pain, started 24 hours ago. Current right flank pain 4/10 non radiating. He denies kidney stones, hx UTI, CP, Shortness of breath, NVD, dysuria, fever. He reports history of CKD, not on HD. He sees nephrology in [place].He reports recent retinal detachment, post op on eye gtts. He reports constipation x 4 days. he reports taking Miralax with no relief. Plan to admit for acute renal failure, hyperkalemia, Lab evaluation. K 6.3, HH 9.4, 29.6, hypoalbumunemia 2.9, UA WNL, CT abd pelvis, IMPRESSION: No acute intra-abdominal process. EKG Rate is 99 beats/min. Rhythm is regular. QRS [place] is Normal. [place] interval is normal. QRS interval is normal. Clinical impression: Normal ECG. Physical Examination - Physical Exam General: Alert, In no apparent distress, Oriented x3 HEENT: Atraumatic, Normocephalic Neck: Supple, 2+ carotid pulse no bruit Respiratory: Clear to auscultation bilaterally, Normal air movement Cardiovascular: No edema, Normal pulses Gastrointestinal: Normal bowel sounds, Soft and benign Musculoskeletal: No clubbing, No swelling Neurological: Normal gait, Normal speech Hospital Course: Assessment/Plan Plan to admit for acute renal failure hyperkalemia nephrology consult, He reports history of CKD, not on HD. He sees nephrology in [place]. CT abdomen no acute intra abd process, EKG Rate is 99 beats/min. Rhythm is regular. QRS [place] is Normal. [place] interval is normal. QRS interval is normal. Clinical impression: Normal ECG Lab evaluation. K 6.3, HH 9.4, 29.6, hypoalbumunemia 2.9 repeat 5 10/26 5.5 neph following, daily cmp, mag instructed by Nephrology to take lasix daily as directed by nephrology Follow up with Nephrology in 7-10 days Physician Discharge Instructions: -DC IV and DC home -Follow-up with PCP in 1 to 2 weeks -Please call Dr. Maldonado at [phone] if any questions regarding hospital stay -Please call nursing station at [phone] if any nursing or medication questions -Return to the emergency room if symptoms worsen Diet: Low sodium Activity: Fall precautions Vital Signs/Physical Exam: Temp Pulse Resp BP Pulse Ox 98.5 F 93 H 17 133/74 93 10/26/23 12:00 10/26/23 12:00 10/26/23 12:00 10/26/23 12:00 10/26/23 12:00 Laboratory Data at Discharge: WBC 6.30 thou/uL (4.3-10.9) 10/26/23 06:54 Hgb 8.9 g/dL (13.6-17.9) L 10/26/23 06:54 Hct 28.2 % (39.6-49.0) L 10/26/23 06:54 Plt Count 260 thou/uL (152-406) 10/26/23 06:54 Sodium 141 mEq/L (136-145) 10/26/23 06:54 Potassium 5.5 mEq/L (3.5-5.1) H 10/26/23 06:54 BUN 58 mg/dL (7-18) H 10/26/23 06:54 Creatinine 2.99 mg/dL (0.70-1.30) H 10/26/23 06:54 Glucose 181 mg/dL (74-106) H 10/26/23 06:54 Uric Acid 8.5 mg/dL (3.5-7.2) H 10/26/23 06:54 Phosphorus 4.3 mg/dL (2.5-4.9) 10/26/23 06:54 Magnesium 2.0 mg/dL (1.6-2.4) 10/26/23 06:54 Total Bilirubin 0.2 mg/dL (0.2-1.0) 10/25/23 06:35 AST 18 U/L (15-37) 10/25/23 06:35 ALT 23 U/L (16-61) 10/25/23 06:35 Alkaline Phosphatase 93 U/L (45-117) 10/25/23 06:35 Home Medications: Aspirin 81 mg PO DAILY 12/30/20 Atorvastatin Calcium [Lipitor] 80 mg PO BEDTIME 12/30/20 Hydrocodone Bit/Acetaminophen [Hydrocodon-Acetaminophn 10325] 1 each PO Q6HP PRN 12/30/20 Insulin -Regular Human [Novolin -R*] 15 unit SQ BID 12/30/20 Insulin NPH Human Isophane [Novolin N] 25 unit SQ BID 12/30/20 Metoprolol Succinate [Toprol Xl*] 25 mg PO BID 12/30/20 Tamsulosin [Flomax*] 0.4 mg PO BEDTIME 12/30/20 Bumetanide 1 mg PO BID 10/25/23 Hydralazine [Apresoline*] 100 mg PO TID 10/25/23 Semaglutide [Rybelsus] 3 mg PO DAILY 10/25/23 Valsartan 80 mg PO DAILY 10/25/23 Followup: NIYA NÚÑEZ [Primary Care Provider] -
--- NOTE | 2023-10-26 16:25 | P.PN ---
Date of Service: 10/26/23 Vital Signs Temp Pulse Resp BP Pulse Ox 98.5 F 93 H 17 133/74 93 10/26/23 12:00 10/26/23 12:00 10/26/23 12:00 10/26/23 12:00 10/26/23 12:00 Medications Amlodipine Besylate (Amlodipine 10 Mg Tab) 10 mg PO DAILY [facility] Last Admin: 10/26/23 09:21 Dose: 10 mg Atorvastatin Calcium (Atorvastatin 80 Mg Tab) 80 mg PO BEDTIME [facility] Last Admin: 10/25/23 23:04 Dose: 80 mg Furosemide (Furosemide 40 Mg Tablet) 40 mg PO DAILY [facility] Last Admin: 10/26/23 09:21 Dose: 40 mg Glucagon (Glucagon 1 Mg/Vial) 1 mg IM 1X PRN; Protocol PRN Reason: HYPOGLYCEMIA Hydralazine HCl (Hydralazine Hcl 25 Mg Tablet) 100 mg PO TID [facility] Last Admin: 10/26/23 14:06 Dose: 100 mg Insulin Human Regular (Insulin Regular (Human) 100 Unit/Ml) 0 unit SQ ACHS [facility]; Protocol Last Admin: 10/26/23 11:30 Dose: Not Given Metoprolol Tartrate (Metoprolol Tar 25 Mg Tab) 25 mg PO BID 6AM 6PM [facility] Last Admin: 10/26/23 05:57 Dose: 25 mg Polyethylene Glycol (Polyethyl Gly 3350 17 Gm/Dose) 17 gm PO DAILY PRN PRN Reason: CONSTIPATION - 1ST LINE Senna (Senosides 8.6 Mg Tab) 8.6 mg PO DAILY PRN PRN Reason: CONSTIPATION Tamsulosin HCl (Tamsulosin 0.4 Mg Sr Cap) 0.4 mg PO BEDTIME [facility] Last Admin: 10/25/23 23:04 Dose: 0.4 mg Assessment/ Plan: Nephrology Progress Note No Dyspnea No Chest Pain Feeling better No Acute Events Overnight Vital Signs, Medications, Blood Work, and Imaging reviewed in the chart General: In no apparent distress, Oriented x3, Cooperative HEENT: Atraumatic Neck: Supple Respiratory: Normal air movement Cardiovascular: Edema Gastrointestinal: Soft and benign, Non-distended Musculoskeletal: No clubbing, No contractures Integumentary: No rashes, No cyanosis Neurological: Normal speech Laboratory Data (last 24 hrs) 10/25/23 10/25/23 10/25/23 08:53 08:01 06:35 WBC Hgb Hct Plt Count Sodium Cancelled Cancelled 139 Potassium Cancelled 6.3 H* 5.7 H BUN Cancelled Cancelled 62 H Creatinine Cancelled Cancelled 2.98 H Glucose Cancelled Cancelled 164 H Total Bilirubin 0.2 AST 18 ALT 23 Alkaline Phosphatase 93 10/25/23 06:35 WBC 6.60 Hgb 9.4 L Hct 29.6 L Plt Count 286 Sodium Potassium BUN Creatinine Glucose Total Bilirubin AST ALT Alkaline Phosphatase Imagings Data: EXAM DESCRIPTION: CT - Abdomen Pelvis Wo Contrast - 10/25/2023 6:59 am CLINICAL HISTORY: r flank pain COMPARISON: No comparisons TECHNIQUE: Thin cut axial CT imaging of the abdomen and pelvis was performed without IV contrast. Multiplanar reformats were generated and reviewed. All CT scans are performed using dose optimization technique as appropriate and may include automated exposure control or mA/KV adjustment according to patient size. FINDINGS: No suspicious findings in the lung bases. The liver, spleen, adrenal glands, and pancreas show no suspicious findings. Gallbladder and biliary tree are also without suspicious finding. Symmetric renal contour, without suspicious parenchymal findings within limits of noncontrast technique. No evidence of radiopaque calculi or hydroureteronephrosis. No dilated bowel loops or bowel wall thickening. No free air, free fluid or inflammatory stranding. No hernia, mass or bulky lymphadenopathy. The urinary bladder is without significant finding. No suspicious bony findings. IMPRESSION: No acute intra-abdominal process. 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
[2023-10-26 16:44] VITALS: TEMP 97.3
[2023-10-26 17:36] VITALS: BP 145/78
[2023-10-26] MEDS ORDERED: ATORVASTATIN 80 MG TAB PO SCH (21:00)
== END 2023-10-26 18:18 | disposition home or self-care (01) | DRG 641 ==
LOC: ER 05:43 → ERHOLD 09:21 → 4TH 20:11
PROVIDERS: ADMIT Hospitalist; ATTEND Hospitalist
DX: E87.5 Hyperkalemia (principal); N17.9 Acute kidney failure, unspecified; N18.4 Chronic kidney disease, stage 4 (severe); I12.9 Hypertensive chronic kidney disease with stage 1 through stage 4 chronic kidney disease, or unspecified chronic kidney disease; E11.22 Type 2 diabetes mellitus with diabetic chronic kidney disease; D63.1 Anemia in chronic kidney disease; E88.09 Other disorders of plasma-protein metabolism, not elsewhere classified; E78.5 Hyperlipidemia, unspecified; K59.00 Constipation, unspecified; N40.1 Benign prostatic hyperplasia with lower urinary tract symptoms; I25.2 Old myocardial infarction; I25.10 Atherosclerotic heart disease of native coronary artery without angina pectoris; Z79.4 Long term (current) use of insulin; Z95.5 Presence of coronary angioplasty implant and graft; Z79.52 Long term (current) use of systemic steroids; Z86.73 Personal history of transient ischemic attack (TIA), and cerebral infarction without residual deficits; Z79.82 Long term (current) use of aspirin; Z89.421 Acquired absence of other right toe(s); Z79.899 Other long term (current) drug therapy
CPT/HCPCS: 36415; 74176; 80048; 80053; 81001; 82043; 82533; 82570; 82607; 82947; 83735; 83880; 84100; 84132; 84156; 84244; 84439; 84443; 84550; 85025; 86140; 93005; 96365; 96375; 99285; J0612; J1815; J1940; J7060

== ENCOUNTER 2024-03-28 20:53 | Emergency (ER) | payer OTHER ==
--- NOTE | 2024-03-28 21:57 | RAD REPORT ---
EXAM DESCRIPTION: US - Extremity Venous Uni Ltd - 03/28/2024 9:41 pm CLINICAL HISTORY: pain Leg swelling and edema. COMPARISON: <Comparisons> FINDINGS: Left lower extremity venous system was interrogated with Doppler technique. Normal flow, c ompressibility and augmentation was noted. There is no DVT present. IMPRESSION: No evidence of left lower extremity deep venous thrombosis.
--- NOTE | 2024-03-28 22:26 | ER ---
Nurse's Notes [facility] Name: Dusty Cintron Age: 63 yrs Sex: Male : 1960 Arrival Date: 03/28/2024 Time: 20:53 Bed 10 Private MD: Diagnosis: Pain in left leg Presentation: 03/28 21:08 Chief complaint: Patient states: LEFT LEG PAIN STARTED TODAY. UPPER THIGH. STATES HE jj7 FELL OUT THE BED TRYING TO GET HIS PHONE YESTERDAY. Coronavirus screen: At this time, the client does not indicate any symptoms associated with coronavirus-19. Ebola Screen: No symptoms or risks identified at this time. Initial Sepsis Screen: Does the patient meet any 2 criteria? No. Patient's initial sepsis screen is negative. Does the patient have a suspected source of infection? No. Patient's initial sepsis screen is negative. Risk Assessment: Do you want to hurt yourself or someone else? Patient reports no desire to harm self or others. Onset of symptoms was March 28, 2024. 21:08 Method Of Arrival: Ambulatory [facility] 21:08 Acuity: DAVY 4 jj7 Triage Assessment: 21:10 General: Appears in no apparent distress. comfortable, Behavior is calm, cooperative, jj7 appropriate for age. Pain: Complains of pain in left quadriceps. Historical: - Allergies: 21:10 No Known Allergies; jj7 - PMHx: 21:10 CAD; CVA; Diabetes - IDDM; kidney disease; Myocardial infarction; Pneumonia; RETINAL jj7 DETACHMENT; - PSHx: 21:10 right eye surgery from retinal detachment; stents x 4; toe; jj7 - Immunization history:: Adult Immunizations up to date, Client reports receiving the 2nd dose of the Covid vaccine, Flu vaccine is not up to date. - Infectious Disease History:: Denies. - Social history:: Smoking status: Patient denies any tobacco usage or history of. Patient/guardian denies using alcohol, street drugs, IV drugs. Screenin:11 [facility] ED Fall Risk Assessment (Adult) History of falling in the last 3 months, jj7 including since admission Yes- single mechanical fall (1 pt) Confusion or Disorientation No (0 pts) Intoxicated or Sedated No (0 pts) Impaired Gait No (0 pts) Mobility Assist Device Used No (0 pt) Altered Elimination No (0 pt) Score/Fall Risk Level 0 - 2 = Low Risk Oriented to surroundings, Maintained a safe environment, Educated pt \T\ family on fall prevention, incl call for assistance when getting out of bed. Abuse screen: Denies threats or abuse. Nutritional screening: No deficits noted. Tuberculosis screening: No symptoms or risk factors identified. Assessment: 21:15 General: Appears in no apparent distress. comfortable, well groomed, well developed, pf1 Behavior is calm, cooperative, appropriate for age, quiet. 21:15 Pain: Complains of pain in medial aspect of left thigh and left leg and left quadriceps pf1 Pain began 1 day ago. Neuro: No deficits noted. Level of Consciousness is awake, alert, obeys commands, Oriented to person, place, time, situation. Cardiovascular: No deficits noted. Capillary refill < 3 seconds Patient's skin is warm and dry. Respiratory: No deficits noted. Airway is patent Respiratory effort is even, unlabored, Respiratory pattern is regular, symmetrical, Breath sounds are clear bilaterally. GI: No deficits noted. No signs and/or symptoms were reported involving the gastrointestinal system. : No deficits noted. No signs and/or symptoms were reported regarding the genitourinary system. EENT: No deficits noted. No signs and/or symptoms were reported regarding the EENT system. Derm: No deficits noted. No signs and/or symptoms reported regarding the dermatologic system. Musculoskeletal: Reports pain in medial aspect of left thigh and left leg and left quadriceps. 22:15 Reassessment: Patient appears in no apparent distress at this time. Patient and/or pf1 family updated on plan of care and expected duration. Pain level reassessed. Patient is alert, oriented x 3, equal unlabored respirations, skin warm/dry/pink. Vital Signs: 21:08 BP 150 / 92; Pulse 78; Resp 17; Temp 98.2; Pulse Ox 98% ; Weight 99.79 kg; Height 5 ft. jj7 11 in. ; Pain 7/10; 22:35 BP 143 / 89; Pulse 72; Resp 16; Temp 98; Pulse Ox 98% on R/A; Pain 4/10; pf1 21:08 Body Mass Index 30.68 (99.79 kg, 180.34 cm) [facility] 21:08 Pain Scale: Adult jj7 22:35 Pain Scale: Adult pf1 ED Course: 20:55 Patient arrived in ED. mr 20:56 Jolie Benitez FNP-C is [facility]. kb 20:56 Westley Chapman MD is Attending Physician. kb 21:10 Triage completed. jj7 21:10 Arm band placed on right wrist. jj7 21:12 Patient has correct armband on for positive identification. Placed in gown. Bed in low pf1 position. Call light in reach. Side rails up X 1. 21:43 Extremity Venous Uni Ltd In Process Unspecified. EDMS 22:19 Femur Left In Process Unspecified. EDMS 22:34 Provided Education on: prescriptions. pf1 22:34 No provider procedures requiring assistance completed. Patient did not have IV access pf1 during this emergency room visit. 03/29 06:40 Femur Left XRAY In Process Unspecified. EDMS Administered Medications: No medications were administered Medication: 03/28 22:35 VIS not applicable for this client. pf1 Outcome: 22:25 Discharge ordered by . kb 22:33 Discharged to home ambulatory, with family, pf1 22:33 Condition: improved 22:33 Discharge instructions given to patient, family, Instructed on discharge instructions, follow up and referral plans. Demonstrated understanding of instructions, follow-up care, medications, Prescriptions given X 2, 22:36 Patient left the ED. pf1 Signatures: Dispatcher [employer] EDMS Jolie Benitez FNP-C FNP-Ckb Lali Quevedo, Reg Reg mr HurdKarla RN RN jjLili Owusu RN RN pf1 Corrections: (The following items were deleted from the chart) 22:35 22:34 Patient has correct armband on for positive identification. Placed in gown. Bed pf1 in low position. Call light in reach. Side rails up X 1. pf1
--- NOTE | 2024-03-28 22:26 | EDPHYS ---
Physician Documentation [facility] Name: Dusty Cintron Age: 63 yrs Sex: Male : 1960 Arrival Date: 03/28/2024 Time: 20:53 Bed 10 Private MD: ED Physician Westley Chapman HPI: 03/28 21:06 This 63 yrs old Black Male presents to ER via Unassigned with complaints of Leg Pain. kb 21:06 Pt is a 63 year old male who presents with left thigh pain that started today. Worse kb with ambulation and palpation. Denies injury or trauma. states pt fell out of the bed yesterday morning. . Historical: - Allergies: 21:10 No Known Allergies; jj7 - PMHx: 21:10 CAD; CVA; Diabetes - IDDM; kidney disease; Myocardial infarction; Pneumonia; RETINAL jj7 DETACHMENT; - PSHx: 21:10 right eye surgery from retinal detachment; stents x 4; toe; jj7 - Immunization history:: Adult Immunizations up to date, Client reports receiving the 2nd dose of the Covid vaccine, Flu vaccine is not up to date. - Infectious Disease History:: Denies. - Social history:: Smoking status: Patient denies any tobacco usage or history of. Patient/guardian denies using alcohol, street drugs, IV drugs. ROS: 22:17 Constitutional: As per HPI kb Exam: 22:17 Constitutional: This is a well developed, well nourished patient who is awake, alert, kb and in no acute distress. Head/Face: Normocephalic, atraumatic. ENT: Moist Mucous membranes Cardiovascular: Regular rate Respiratory: Respirations even and unlabored. No increased work of breathing. Talking in full sentences Abdomen/GI: Soft, non-tender. No distention Skin: Warm, dry with normal turgor. Normal color. Neuro: Awake and alert, GCS 15, oriented to person, place, time, and situation. Moves all extremities. Normal gait. 22:17 Musculoskeletal/extremity: Extremities: grossly normal except: noted in the medial aspect of left thigh and left quadriceps: pain, tenderness, ROM: intact in all extremities, Circulation is intact in all extremities. Sensation intact. Weight bearing: able to fully bear weight, Vital Signs: 21:08 BP 150 / 92; Pulse 78; Resp 17; Temp 98.2; Pulse Ox 98% ; Weight 99.79 kg; Height 5 ft. jj7 11 in. ; Pain 7/10; 22:35 BP 143 / 89; Pulse 72; Resp 16; Temp 98; Pulse Ox 98% on R/A; Pain 4/10; pf1 21:08 Body Mass Index 30.68 (99.79 kg, 180.34 cm) [facility] 21:08 Pain Scale: Adult [facility] 22:35 Pain Scale: Adult pf1 MDM: 20:59 Patient medically screened. kb 22:17 Differential diagnosis: closed fracture, strain, dvt. Data reviewed: vital signs, kb nurses notes. 22:21 Historians other than the Patient: Spouse/Significant Other: . Counseling: I had a kb detailed discussion with the patient and/or guardian regarding the historical points, exam findings, and any diagnostic results supporting the discharge/admit diagnosis, radiology results, the need for outpatient follow up, a family practitioner, to return to the emergency department if symptoms worsen or persist or if there are any questions or concerns that arise at home. 03/28 21:05 Order name: US Extremity Venous Unilateral Ltd kb 03/28 21:07 Order name: Femur Left XRAY kb 03/28 21:15 Order name: Extremity Venous Uni Ltd EDHI 03/28 21:40 Order name: Femur Left EDMS 03/28 21:58 Order name: US; Complete Time: 22:09 EDMS Administered Medications: No medications were administered Disposition: 03/29 01:11 Co-signature as Attending Physician, Westley Chapman MD I agree with the assessment sp4 and plan of care. I reviewed the patient's care provided by the Advanced Practice Provider and agree with the diagnosis and treatment plan. Disposition Summary: 03/28/24 22:25 Discharge Ordered Notes: Location: Home kb Condition: Stable kb Diagnosis - Pain in left leg kb Followup: kb - With: Emergency Department - When: As needed - Reason: Worsening of condition Followup: kb - With: Private Physician - When: 2 - 3 days - Reason: Recheck today's complaints, Continuance of care, Re-evaluation by your physician Discharge Instructions: - Discharge Summary Sheet kb - Musculoskeletal Pain kb - Muscle Strain, [id number] kb Forms: - Medication Reconciliation Form kb - Antibiotic Education kb - Prescription Opioid Use kb - Patient Portal Instructions kb - Leadership Thank You Letter Prescriptions: - Diclofenac Sodium 75 mg Oral tablet, delayed release (enteric coated) - take 1 tablet ORAL route 2 times per day As needed; 20 tablet; Refills: 0, kb Product Selection Permitted - orphenadrine citrate 100 mg Oral Tablet Sustained Release - take 1 tablet ORAL route 2 times per day As needed; 20 tablet; Refills: 0, kb Product Selection Permitted Signatures: Dispatcher [employer] Jolie Olvera FNP-C FNP-Ckb Johnson, Juwairiyah, RN RN jj7 Westley Chapman MD MD sp4
--- NOTE | 2024-03-28 22:39 | RAD REPORT ---
EXAM DESCRIPTION: RAD - Femur Left - 03/28/2024 10:17 pm CLINICAL HISTORY: Pain 10 Pain, history of fall COMPARISON: <Comparisons> FINDINGS: Mild osteoarthritis affects the left hip. No fracture, dislocation or AVN.
[2024-03-28 23:59] VITALS: BP 143/89; TEMP 98; O2SAT 98
== END 2024-03-28 22:36 | disposition home or self-care (01) ==
LOC: ER 20:53
DX: M79.652 Pain in left thigh (principal)
CPT/HCPCS: 93971; 99283

== ENCOUNTER 2025-06-20 04:33 | Inpatient (IN) | payer OTHER ==
[2025-06-20 05:15] LABS: PT Prothrombin Time 12.2 SECONDS (10-13.0); Protime INR 1.08
[2025-06-20 05:17] LABS: Absolute Lymphocytes (CBC) 1.0 K/uL (0.7-4.9); Hematocrit 28.2 % (39.6-49.0); Hemoglobin 9.5 g/dL (13.6-17.9); MCH 26.9 pg (27.0-35.0); MCHC 33.8 g/dL (32.0-36.0); MCV 79.8 fL (80-100); MPV 8.0 fL (7.6-11.3); Nucleated RBC Absolute Count 0.0 (0-0); Nucleated Red Blood Cells % 0.1 % (0-0); RBC Red Blood Cell Count 3.54 M/uL (4.33-5.43); White Blood Count 8.80 thou/uL (4.3-10.9)
[2025-06-20 05:24] LABS: Influenza A Ag Negative; Influenza B Ag Negative; SARS-CoV-2 Antigen Rapid Res Negative (Negative)
[2025-06-20 05:26] LABS: Anion Gap 10.8 mEq/L (5.0-15.0); BUN Blood Urea Nitrogen 56.0 mg/dL (7-18); Glucose Level 158.0 mg/dL (74-106); NT PRO-BNP 2703.0 pg/mL (<125); Potassium 4.8 mEq/L (3.5-5.1); Troponin High Sensitivity 16.6 pg/mL (<58.9)
--- NOTE | 2025-06-20 05:45 | ER ---
Nurse's Notes [facility] Name: Dusty Cintron Age: 64 yrs Sex: Male : 1960 Arrival Date: 06/20/2025 Time: 04:33 Bed 5 Private MD: Diagnosis: Dyspnea, unspecified;Hypoxemia;Chronic kidney disease, unspecified Presentation: 06/20 04:46 Chief complaint: Patient states: c/o SOB x1 hr. states it happens moreso on exertion al5 but happens also at rest. has had cough and headache too. Coronavirus screen: cough unrelated to allergies, headache, shortness of breath. Ebola Screen: No symptoms or risks identified at this time. Initial Sepsis Screen: Does the patient meet any 2 criteria? No. Patient's initial sepsis screen is negative. Does the patient have a suspected source of infection? No. Patient's initial sepsis screen is negative. Risk Assessment: Do you want to hurt yourself or someone else? Patient reports no desire to harm self or others. Onset of symptoms was June 20, 2025. 04:46 Method Of Arrival: Ambulatory al5 04:46 Acuity: DAVY 3 al5 Triage Assessment: 04:47 General: Appears in no apparent distress. comfortable, Behavior is calm, cooperative. al5 Pain: Denies pain. EENT: No signs and/or symptoms were reported regarding the EENT system. Neuro: Level of Consciousness is awake, alert, obeys commands, Oriented to person, place, time, situation. Cardiovascular: Capillary refill < 3 seconds Patient's skin is warm and dry. Respiratory: Reports shortness of breath at rest on exertion Onset: The symptoms/episode began/occurred 1 hour ago, the patient has mild shortness of breath. GI: Abdomen is non-distended. : No signs and/or symptoms were reported regarding the genitourinary system. Derm: Skin is intact, is healthy with good turgor, Skin is pink, warm \T\ dry. normal. Musculoskeletal: No signs and/or symptoms reported regarding the musculoskeletal system. Circulation, motion, and sensation intact. Range of motion: intact in all extremities. Historical: - Allergies: 04:47 No Known Allergies; al5 - PMHx: 04:47 CAD; CVA; Diabetes - IDDM; kidney disease; Myocardial infarction; Pneumonia; RETINAL al5 DETACHMENT; - PSHx: 04:47 right eye surgery from retinal detachment; stents x 4; toe; al5 - Immunization history:: Adult Immunizations up to date. - Infectious Disease History:: Denies. - Social history:: Smoking status: Patient denies any tobacco usage or history of. - Family history:: not pertinent. - Hospitalizations: : No recent hospitalization is reported. Screenin:48 [facility] ED Fall Risk Assessment (Adult) History of falling in the last 3 months, al5 including since admission No falls in past 3 months (0 pts) Confusion or Disorientation No (0 pts) Intoxicated or Sedated No (0 pts) Impaired Gait No (0 pts) Mobility Assist Device Used No (0 pt) Altered Elimination No (0 pt) Score/Fall Risk Level 0 - 2 = Low Risk Oriented to surroundings, Maintained a safe environment, Hourly rounding (assess needs \T\ fall precautionary measures) done. Abuse screen: Denies threats or abuse. Denies injuries from another. Nutritional screening: No deficits noted. Tuberculosis screening: No symptoms or risk factors identified. Assessment: 05:04 Reassessment: see triage assessment. Cardiovascular: Rhythm is sinus rhythm. al5 Respiratory: Airway is patent Respiratory effort is even, unlabored, Respiratory pattern is regular, symmetrical, Breath sounds are clear in right upper lobe, left upper lobe, left posterior upper lobe and right posterior upper lobe Breath sounds are diminished in right middle lobe, left lower lobe, right lower lobe, left posterior lower lobe, right posterior middle lobe and right posterior lower lobe. 06:09 Reassessment: Patient appears in no apparent distress at this time. No changes from al5 previously documented assessment. Patient and/or family updated on plan of care and expected duration. Pain level reassessed. Patient is alert, oriented x 3, equal unlabored respirations, skin warm/dry/pink. 06:49 Reassessment: Freda ([facility]): [phone]. al5 Vital Signs: 04:46 BP 170 / 72; Pulse 87; Resp 20; Temp 99.3; Pulse Ox 94% on R/A; Weight 102.06 kg; al5 Height 5 ft. 11 in. ; 05:00 BP 163 / 83; Pulse 85; Resp 20; Pulse Ox 91% on R/A; al5 05:30 BP 150 / 79; Pulse 81; Resp 17; Pulse Ox 91% on R/A; al5 06:00 BP 148 / 86; Pulse 84; Resp 16; Pulse Ox 92% on R/A; al5 06:47 BP 135 / 76; Pulse 89; Resp 18; Pulse Ox 93% on R/A; al5 08:30 BP 131 / 85; Pulse 86; Resp 14; Temp 97.9; Pulse Ox 95% on R/A; ph 09:30 BP 160 / 81; Pulse 86; Resp 18; Pulse Ox 94% on R/A; ph 10:30 BP 156 / 85; Pulse 88; Resp 18; Temp 97.9; Pulse Ox 94% on R/A; ph 11:30 BP 160 / 80; Pulse 84; Resp 18; Pulse Ox 95% on R/A; ph 04:46 Body Mass Index 31.38 (102.06 kg, 180.34 cm) al5 ED Course: 04:41 Patient arrived in ED. vk 04:41 Se Samuels MD is Attending Physician. rn 04:45 Sofia Maynard RN is Primary Nurse. al5 04:47 Triage completed. al5 04:47 Arm band placed on right wrist. Patient placed in the treatment room, in view of staff al5 members, on pulse oximetry. 04:48 Patient has correct armband on for positive identification. Bed in low position. Call al5 light in reach. Side rails up X 1. Provided Education on: plan of care. 04:49 No provider procedures requiring assistance completed. al5 05:03 Inserted saline lock: 22 gauge in right antecubital area, using aseptic technique. al5 Blood collected. Flushed with 10 mL NS. 05:12 XRAY Chest (1 view) In Process Unspecified. EDMS 05:45 Case Siu is Hospitalizing Provider. rn 07:09 Report given to Konstantin RN. bm8 11:48 Patient admitted, IV remains in place. ph Administered Medications: 06:08 Drug: Furosemide IVP 40 mg IVP once; give over 2 minutes Route: IVP; Site: right al5 antecubital; 06:43 Follow up: Response: No adverse reaction al5 06:43 Drug: Zithromax IVPB 500 mg IVPB once over 1 hrs; mix in 250 mL NS Route: IVPB; Infused al5 Over: 1 hrs; Site: right antecubital; 07:45 Follow up: Response: No adverse reaction; IV Status: Completed infusion ph 06:54 Drug: Ondansetron IVP 4 mg IVP once; over 2 minutes Route: IVP; Site: right antecubital;al5 11:49 Follow up: Response: No adverse reaction ph Medication: 04:49 VIS not applicable for this client. al5 Outcome: 05:44 Discharge ordered by . rn 05:46 Decision to Hospitalize by Provider. rn 11:48 Admitted to Tele accompanied by tech, via wheelchair, with chart, ph 11:48 Condition: stable 11:48 Instructed on the need for admit, 11:50 Patient left the ED. ph Signatures: Dispatcher [employer] EDMS Se Samuels MD MD rn Hall, Patricia RN RN ph Naomie Llanes Brad, RN RN bm8 Sofia Maynard RN RN al5
--- NOTE | 2025-06-20 05:45 | EDPHYS ---
Physician Documentation [facility] Name: Dusty Cintron Age: 64 yrs Sex: Male : 1960 Arrival Date: 06/20/2025 Time: 04:33 Bed 5 Private MD: ED Physician Se Samuels HPI: 06/20 05:15 This 64 yrs old Black Male presents to ER via Ambulatory with complaints of Shortness rn Of Breath. 05:15 The patient has shortness of breath with light activity. Onset: The symptoms/episode rn began/occurred this morning. Duration: The symptoms are intermittent. Patient reports shortness of breath, began this morning when going to the bathroom. Patient reports shortness of breath when laying flat and with exertion. No chest pain. Reports dry cough. No fever or chills. No hemoptysis or productive cough noted.. Historical: - Allergies: 04:47 No Known Allergies; al5 - PMHx: 04:47 CAD; CVA; Diabetes - IDDM; kidney disease; Myocardial infarction; Pneumonia; RETINAL al5 DETACHMENT; - PSHx: 04:47 right eye surgery from retinal detachment; stents x 4; toe; al5 - Immunization history:: Adult Immunizations up to date. - Infectious Disease History:: Denies. - Social history:: Smoking status: Patient denies any tobacco usage or history of. - Family history:: not pertinent. - Hospitalizations: : No recent hospitalization is reported. ROS: 05:15 Constitutional: Negative for fever, chills, and weight loss, Cardiovascular: Negative rn for chest pain, palpitations, and edema, Respiratory: Positive for cough and exertional dyspnea Abdomen/GI: Negative for abdominal pain, nausea, vomiting, diarrhea, and constipation, MS/Extremity: Negative for injury and deformity, Skin: Negative for injury, rash, and discoloration, Neuro: Negative for headache, weakness, numbness, tingling, and seizure, Exam: 05:15 Constitutional: This is a well developed, well nourished patient who is awake, alert, rn and in no acute distress. Cardiovascular: Regular rate and rhythm. No pulse deficits. Respiratory: Mild tachypnea, diminished at bases MS/ Extremity: 2+ pitting edema bilateral lower extremities with equal circumference. No cyanosis. 05:38 ECG was reviewed by the Attending Physician. rn Vital Signs: 04:46 BP 170 / 72; Pulse 87; Resp 20; Temp 99.3; Pulse Ox 94% on R/A; Weight 102.06 kg; al5 Height 5 ft. 11 in. ; 05:00 BP 163 / 83; Pulse 85; Resp 20; Pulse Ox 91% on R/A; al5 05:30 BP 150 / 79; Pulse 81; Resp 17; Pulse Ox 91% on R/A; al5 06:00 BP 148 / 86; Pulse 84; Resp 16; Pulse Ox 92% on R/A; al5 06:47 BP 135 / 76; Pulse 89; Resp 18; Pulse Ox 93% on R/A; al5 08:30 BP 131 / 85; Pulse 86; Resp 14; Temp 97.9; Pulse Ox 95% on R/A; ph 09:30 BP 160 / 81; Pulse 86; Resp 18; Pulse Ox 94% on R/A; ph 10:30 BP 156 / 85; Pulse 88; Resp 18; Temp 97.9; Pulse Ox 94% on R/A; ph 11:30 BP 160 / 80; Pulse 84; Resp 18; Pulse Ox 95% on R/A; ph 04:46 Body Mass Index 31.38 (102.06 kg, 180.34 cm) al5 MDM: 04:41 Medical Screening Exam initiated rn 05:42 Differential diagnosis: Anemia Anxiety Reaction Bronchitis CHF exacerbation, Myocardial rn Infarction pneumonia, Pneumothorax pulmonary edema. Data reviewed: vital signs, nurses notes, lab test result(s), EKG, radiologic studies, plain films, and as a result, I will admit patient. Consideration of Admission/Observation Patient was admitted/placed on observation. Escalation of care including admission/observation considered. Independent interpretation of the following test(s) in the Emergency Department EKG: See my EKG interpretation above X-Ray: My interpretation is Chest x-ray images negative for pneumonia or pneumothorax per my interpretation. Care significantly affected by the following chronic conditions: Diabetes, Hypertension, Chronic Kidney Disease. Counseling: I had a detailed discussion with the patient and/or guardian regarding the historical points, exam findings, and any diagnostic results supporting the discharge/admit diagnosis, the presence of at least one elevated blood pressure reading (>120/80) during this emergency department visit, lab results, radiology results, the need for further work-up and treatment in the hospital. 08/06 04:42 Order name: Basic Metabolic Panel; Complete Time: 05:27 rn 06/20 04:42 Order name: CBC with Diff; Complete Time: 05:27 rn 06/20 04:42 Order name: NT PRO-BNP; Complete Time: 05:27 rn 06/20 04:42 Order name: PT-INR; Complete Time: 05:27 rn 06/20 04:42 Order name: Troponin HS; Complete Time: 05:27 rn 06/20 04:44 Order name: COVID-19 Ag + Flu A+B Ag; Complete Time: 05:27 rn 06/20 10:21 Order name: C-Reactive Protein EDMS 08/06 10:21 Order name: C-Reactive Protein EDMS 08/06 10:21 Order name: CBC with Automated Diff EDMS 08/06 10:21 Order name: CBC with Automated Diff EDMS 08/06 10:21 Order name: Comprehensive Metabolic Panel EDMS 08/06 10:21 Order name: Comprehensive Metabolic Panel EDMS 08/06 10:21 Order name: Lipid Profile EDMS 08/06 10:21 Order name: Lipid Profile EDMS 08/06 10:21 Order name: Magnesium EDMS 08/06 10:21 Order name: Magnesium EDMS 08/06 10:21 Order name: NT PRO-BNP EDMS 08/06 10:21 Order name: NT PRO-BNP EDMS 08/06 10:21 Order name: Troponin High Sensitivity EDMS 08/06 10:21 Order name: Troponin High Sensitivity EDMS 08/06 10:21 Order name: Troponin High Sensitivity EDMS 08/06 10:21 Order name: D-Dimer EDMS / 04:42 Order name: XRAY Chest (1 view); Complete Time: 06:07 rn 06/20 10:21 Order name: Echo with Doppler EDMS 06/20 04:42 Order name: EKG; Complete Time: 04:42 rn 06/20 10:21 Order name: CONS Physician Consult EDMS 06/20 04:42 Order name: Cardiac monitoring; Complete Time: 05:15 rn 06/20 04:42 Order name: EKG - Nurse/Tech; Complete Time: 05:15 rn 06/20 04:42 Order name: IV Saline Lock; Complete Time: 05:04 rn 06/20 04:42 Order name: Labs collected and sent; Complete Time: 05:04 rn 06/20 04:42 Order name: O2 Per Protocol; Complete Time: 05: rn 06/20 04:42 Order name: O2 Sat Monitoring; Complete Time: 05:04 rn EC:38 Rate is 86 beats/min. Rhythm is regular. QRS [place] is Normal. [place] interval is normal. QRS rn interval is normal. QT interval is normal. No Q waves. T waves are Normal. No ST changes noted. Clinical impression: Normal ECG. Interpreted by me. Reviewed by me. Administered Medications: 06:08 Drug: Furosemide IVP 40 mg IVP once; give over 2 minutes Route: IVP; Site: right al5 antecubital; 06:43 Follow up: Response: No adverse reaction al5 06:43 Drug: Zithromax IVPB 500 mg IVPB once over 1 hrs; mix in 250 mL NS Route: IVPB; Infused al5 Over: 1 hrs; Site: right antecubital; 07:45 Follow up: Response: No adverse reaction; IV Status: Completed infusion ph 06:54 Drug: Ondansetron IVP 4 mg IVP once; over 2 minutes Route: IVP; Site: right antecubital;al5 11:49 Follow up: Response: No adverse reaction ph Disposition Summary: 06/20/25 05:46 Hospitalization Ordered Notes: Hospitalization Status: Inpatient Admission rn Provider: Case Siu rn Location: Telemetry/[facility] (Inpatient)(06/20/25 05:46) rn Condition: Stable(06/20/25 05:46) rn Problem: new(06/20/25 05:46) rn Symptoms: have improved(06/20/25 05:46) rn Bed/Room Type: Standard rn Room Assignment: 222(06/20/25 10:31) ss Diagnosis - Dyspnea, unspecified(06/20/25 05:46) rn - Hypoxemia(06/20/25 05:46) rn - Chronic kidney disease, unspecified(06/20/25 05:46) rn Forms: - Medication Reconciliation Form rn - SBAR form rn - Leadership Thank You Letter rn Signatures: Dispatcher [employer] [facility] Se Samuels MD MD rn Blanchard, Shelby, RN RN ss Langhorst, Amanda, RN RN al5 Yudith Miranda RN ph Corrections: (The following items were deleted from the chart) 05:45 05:44 Home rn rn 05:45 05:44 new rn rn 05:45 05:44 have improved rn rn 05:45 05:44 Stable rn rn 05:45 05:44 Dyspnea, unspecified rn rn 05:45 05:44 Chronic kidney disease, unspecified rn rn 05:45 05:44 Hypoxemia rn rn 10:31 05:46 rn ss
[2025-06-20] MEDS ORDERED: FUROSEMIDE 40 MG/4 ML VIAL ONE (06:01)
--- NOTE | 2025-06-20 06:05 | RAD REPORT ---
INDICATION: DYSPNEA COMPARISON: No existing relevant imaging studies are available FINDINGS: Single frontal view of the chest was obtained. SUPPORT DEVICES: None HEART/MEDIASTINUM: Cardiomediastinal contours are normal. LUNGS/PLEURA: No focal consolidation. No pleural effusion or pneumothorax. OTHER: No other significant findings. IMPRESSION: No acute findings. Electronically signed by: Darrel Badillo DO 06/20/2025 05:22 AM CDT RP NR Due to temporary technical issues with the PACS/[employer] [place] reporting system, reports are being aneta d by the in-house radiologist without review as a courtesy to ensure prompt reporting the interpreting radiologist is fully responsible for the content of the report. Transcribed Date/Time: 06/20/2025 6:04 AM
[2025-06-20] MEDS ORDERED: AZITHROMYCIN 500 MG INJ IVPB ONE (06:37)
[2025-06-20] MEDS ORDERED: NA CHLORIDE 0.9% 250 ML ONE (06:37)
[2025-06-20] MEDS ORDERED: ONDANSETRON 4 MG/2 ML VIAL ONE (06:51)
[2025-06-20] MEDS ORDERED: ONDANSETRON 4 MG/2 ML VIAL IV PRN (10:16)
--- NOTE | 2025-06-20 10:23 | P.HP ---
Certification for Inpatient Patient admitted to: Observation With expected LOS: <2 Midnights Patient will require the following post-hospital care: None Practitioner: I am a practitioner with admitting privileges, knowledge of patient current condition, hospital course, and medical plan of care. Services: Services provided to patient in accordance with Admission requirements found in Title 42 Section 412.3 of the Code of Federal Regulations Patient History Date of Service: 06/20/25 Reason for admission: Shortness of breath History of Present Illness: Patient is a 64-year-old gentleman who came to the hospital with shortness of breath. Patient states he woke up the last couple of mornings having difficulty breathing. When he got out of bed he was tachypneic and he decided to call EMS. When he arrived his blood pressure was slightly elevated. He has a history of coronary artery disease with prior stent placement over at [facility]. He denies a history of congestive heart failure. He states he has been taking the medication as prescribed. He has not lost any significant amount of weight. He came into the emergency room and was diuresed and is feeling better. At this time chest x-ray also showed pulmonary edema. Patient will be admitted to the hospital for observation. Allergies No Known Allergies Allergy (Unverified 08/14/12 08:53) Home Medications: Aspirin 81 mg PO DAILY 12/30/20 Atorvastatin Calcium [Lipitor] 80 mg PO BEDTIME 12/30/20 Hydrocodone Bit/Acetaminophen [Hydrocodon-Acetaminophn 10-325] 1 each PO Q6HP PRN 12/30/20 Insulin -Regular Human [Novolin -R*] 15 unit SQ BID 12/30/20 Insulin NPH Human Isophane [Novolin N] 25 unit SQ BID 12/30/20 Metoprolol Succinate [Toprol Xl*] 25 mg PO BID 12/30/20 Tamsulosin [Flomax*] 0.4 mg PO BEDTIME 12/30/20 Bumetanide 1 mg PO BID 10/25/23 Hydralazine [Apresoline*] 100 mg PO TID 10/25/23 Semaglutide [Rybelsus] 3 mg PO DAILY 10/25/23 Valsartan 80 mg PO DAILY 10/25/23 - Past Medical/Surgical History Diabetic: Yes -: CAD -: IDDM II -: CKD IV -: HTN -: HLD -: BPH with LUTS -: Coronary stent -: Rt 2nd toe amputated -: retinal detactment Psychosocial/ Personal History: Retired, lives at home with family - Family History Mother Medical History: Heart disease, Diabetes Father Medical History: Diabetes - Social History Smoking Status: Former smoker Alcohol use: Yes CD- Drugs: No Caffeine use: Yes Review of Systems 10-point ROS is otherwise unremarkable Physical Examination - Vital Signs Temperature: 98 F Blood Pressure: 180/80 Pulse: 100 Respirations: 20 Pulse Ox (%): 90 - Physical Exam General: Alert, In no apparent distress, Oriented x3 HEENT: Atraumatic, PERRLA, Mucous membr. moist/pink, EOMI, Sclerae nonicteric Neck: Supple, 2+ carotid pulse no bruit, No LAD, Without JVD or thyroid abnormality Respiratory: Diminished, Crackles/rales Cardiovascular: Regular rate/rhythm, Normal S1 S2, No murmurs Gastrointestinal: Normal bowel sounds, Soft and benign, Non-distended, No tenderness Musculoskeletal: No clubbing, No tenderness Integumentary: No rashes Neurological: Normal speech, Normal strength at 5/5 x4 extr, Normal tone, Sensation intact, Cranial nerves 3-12 intact, Normal affect Lymphatics: No axilla or inguinal lymphadenopathy - Studies Laboratory Data (last 24 hrs) 06/20/25 06/20/25 06/20/25 05:00 05:00 05:00 WBC 8.80 Hgb 9.5 L Hct 28.2 L Plt Count 257 PT 12.2 INR 1.08 Sodium 144 Potassium 4.8 BUN 56 H Creatinine 3.65 H Glucose 158 H Assessment & Plan - Problems (Diagnosis) (1) Acute CHF Current Visit: Yes Status: Acute (2) Coronary artery disease Current Visit: No Status: Acute (3) Diabetes mellitus type 2 in nonobese Current Visit: No Status: Acute (4) Hypertension Current Visit: No Status: Acute - Plan PLAN: 1. Acute CHF exacerbation; continue with echocardiogram. Continue with MARIA G and beta-jose enrique with diuretics. Await for echocardiogram prior to making further adjustments. Cardiology consulted. Strict I's and O's and daily weights. Continue with education regarding congestive heart failure 2. Metabolic syndrome; strict blood pressure and blood sugar control and check LDL along with additional lipid profile. Check thyroid studies. Patient is on multiple blood pressure medications and also on Tresiba along with lispro. Will continue with diabetic medications once nursing staff posted in. 3. BPH; continue with Flomax 4. GI DVT prophylaxis Discharge Plan: Home Plan to discharge in: Greater than 2 days - Advance Directives Does patient have a Living Will: Yes Does patient have a Durable POA for Healthcare: No - Code Status/Comfort Care Code Status Assessed: Yes Code Status: Full Code Critical Care: No Time Spent Managing PTS Care (In Minutes): 45
[2025-06-20] MEDS: FUROSEMIDE 40 MG/4 ML VIAL IV SCH (16:53)
--- NOTE | 2025-06-20 17:21 | P.CNS ---
Date of Consult: 06/20/25 Chief Complaint: Shortness of breath History of Present Illness: Patient with PMH of CAD s/p PCI in 2019, also heart failure, presented with worsening SOB and SORIANO with bilateral lower extremities edema for the last few days, denies chest pain, no palpitations, no syncope. Allergies No Known Allergies Allergy (Unverified 08/14/12 08:53) Home medications list reviewed: Yes Home Medications: Aspirin 81 mg PO DAILY 12/30/20 Atorvastatin Calcium [Lipitor] 80 mg PO BEDTIME 12/30/20 Insulin NPH Human Isophane [Novolin N] 25 unit SQ BID 12/30/20 Tamsulosin [Flomax*] 0.4 mg PO DAILY 12/30/20 Bumetanide 1 mg PO DAILY 10/25/23 Hydralazine [Apresoline*] 100 mg PO TID 10/25/23 Amlodipine [Norvasc] 10 mg PO DAILY 06/20/25 Carvedilol [Coreg] 12.5 mg PO BID 06/20/25 Cholecalciferol (Vitamin D3) [Vitamin D3] 1 cap PO DAILY 06/20/25 Ferrous Sulfate [Iron] 1 tab PO DAILY 06/20/25 Insulin Degludec [Tresiba] 25 units SQ BID 06/20/25 Isosorbide Dinit [Isordil] 20 mg PO BID 06/20/25 Semaglutide [Rybelsus] 1 tab PO DAILY 06/20/25 - Past Medical/Surgical History Diabetic: Yes -: CAD -: IDDM II -: CKD IV -: HTN -: HLD -: BPH with LUTS -: Coronary stent -: Rt 2nd toe amputated -: retinal detactment Psychosocial/ Personal History: Retired, lives at home with family - Family History Mother Medical History: Heart disease, Diabetes Father Medical History: Diabetes - Social History Alcohol use: Yes CD- Drugs: No Caffeine use: Yes Place of Residence: Home Review of Systems 10-point ROS is otherwise unremarkable Physical Examination Temp Pulse Resp BP Pulse Ox 99.0 F 86 16 164/80 H 94 06/20/25 12:00 06/20/25 12:00 06/20/25 12:00 06/20/25 12:00 06/20/25 12:00 General: Alert, In no apparent distress HEENT: Atraumatic, PERRLA, Mucous membr. moist/pink, EOMI, Sclerae nonicteric Neck: Supple, 2+ carotid pulse no bruit, No LAD, Without JVD or thyroid abnormality Respiratory: Clear to auscultation bilaterally, Normal air movement Cardiovascular: Regular rate/rhythm, Normal S1 S2, Edema Gastrointestinal: Normal bowel sounds, No tenderness Musculoskeletal: No tenderness Integumentary: No rashes Neurological: Normal gait, Normal speech, Normal tone, Normal affect Lymphatics: No axilla or inguinal lymphadenopathy Laboratory Data (last 24 hrs) 06/20/25 06/20/25 06/20/25 05:00 05:00 05:00 WBC 8.80 Hgb 9.5 L Hct 28.2 L Plt Count 257 PT 12.2 INR 1.08 Sodium 144 Potassium 4.8 BUN 56 H Creatinine 3.65 H Glucose 158 H - Problems (1) Acute on chronic diastolic heart failure Current Visit: Yes Status: Acute Plan: continue lasix 40 m IV BID Resume patient Coreg, Hydralazine and Isordil monitor input and output and electrolytes (2) Coronary artery disease Current Visit: No Status: Acute Plan: stable, troponin negative, continue ASA and Lipitor (3) Hypertension Current Visit: No Status: Acute Plan: continue medications as above.
[2025-06-20] MEDS: ATORVASTATIN 80 MG TAB PO SCH (20:07)
[2025-06-20] MEDS: ISOSORBIDE DINIT 20 MG TAB PO SCH (20:08)
[2025-06-20] MEDS: HYDRALAZINE HCL 25 MG TABLET PO SCH (20:08)
[2025-06-20] MEDS: Insulin Degludec [Tresiba] 100 UNIT/ML Vial SQ SCH (21:00)
[2025-06-20] MEDS: guaiFENesin 100 MG/5 ML UCUP PO PRN (21:38)
[2025-06-20] MEDS: ACETAMINOPHEN 500 MG TAB PO PRN (22:51)
[2025-06-21 04:15] LABS: Absolute Lymphocytes (CBC) 1.6 K/uL (0.7-4.9); Hematocrit 26.9 % (39.6-49.0); Hemoglobin 8.6 g/dL (13.6-17.9); MCH 25.8 pg (27.0-35.0); MCHC 32.0 g/dL (32.0-36.0); MCV 80.7 fL (80-100); MPV 8.3 fL (7.6-11.3); Nucleated RBC Absolute Count 0.0 (0-0); Nucleated Red Blood Cells % 0.0 % (0-0); RBC Red Blood Cell Count 3.34 M/uL (4.33-5.43); White Blood Count 7.00 thou/uL (4.3-10.9)
[2025-06-21 04:22] VITALS: BMI 31.5
[2025-06-21 04:33] LABS: ALT/SGPT 21.0 U/L (16-61); AST/SGOT 17.0 U/L (15-37); Albumin 2.5 g/dL (3.4-5.0); Albumin/Globulin Ratio 0.7 (1.1-1.8); Alkaline Phosphatase 63.0 U/L (45-117); Anion Gap 9.1 mEq/L (5.0-15.0); BUN Blood Urea Nitrogen 60.0 mg/dL (7-18); C-Reactive Protein 35.5 mg/L (<3.00); Globulin 3.6 g/dL (2.3-3.5); Glucose Level 115.0 mg/dL (74-106); HDL Cholesterol 47.0 mg/dL (40-60); LDL Cholesterol, Calculated 52.0 mg/dL (<130); LDL Cholesterol,Calc NonReport 52.0; Magnesium 2.0 mg/dL (1.6-2.4); NT PRO-BNP 3432.0 pg/mL (<125); Potassium 5.1 mEq/L (3.5-5.1); Troponin High Sensitivity 19.5 pg/mL (<58.9)
--- NOTE | 2025-06-21 07:32 | ECHO ---
HEIGHT: 5 ft 11 in WEIGHT: 226 lb 3.2 oz DATE OF STUDY: 06/20/[address]: Maldonado Maldonado MD 2-DIMENSIONAL: YES M.MODE: YES DOPPLER: YES COLOR FLOW: YES TDS: PORTABLE: YES DEFINITY: BUBBLE STUDY: DIAGNOSIS: ACUTE CONGESTIVE HEART FAILURE EXACERBATION CARDIAC HISTORY: CATHERIZATION: YES SURGERY: NO PROSTHETIC VALVE: NO PACEMAKER: NO MEASUREMENTS (cm) DIASTOLIC (NORMALS) SYSTOLIC (NORMALS) IVSd 1.2 (0.6-1.2) LA Diam 3.4 (1.9-4.0) LVEF 60-65% LVIDd 5.9 (3.5-5.7) LVIDs 4.2 (2.0-3.5) %FS 29% LVPWd 1.3 (0.6-1.2) Ao Diam 2.9 (2.0-3.7) 2 DIMENSIONAL ASSESSMENT: RIGHT ATRIUM: NORMAL LEFT ATRIUM: NORMAL RIGHT VENTRICLE: NORMAL LEFT VENTRICLE: MILD LEFT VENTRICULAR HYPERTROPHY TRICUSPID VALVE: MILD TRICUSPID REGURGITATION MITRAL VALVE: NORMAL PULMONIC VALVE: NORMAL AORTIC VALVE: NORMAL PERICARDIAL EFFUSION: NONE AORTIC ROOT: NORMAL LEFT VENTRICULAR WALL MOTION: NORMAL DOPPLER/COLOR FLOW: DIASTOLIC DYSFUNCTION COMMENTS: 1. NORMAL LEFT VENTRICULAR SYSTOLIC FUNCTION, EJECTION FRACTION 60-65%, NORMAL WALL MOTION 2. DIASTOLIC DYSFUNCTION 3. NORMAL FILLING PRESSURE (RIGHT ATRIAL PRESSURE 0-5 mmHg) 4. MILD PULMONARY HYPERTENSION (RIGHT VENTRICULAR SYSTOLIC PRESSURE 35-40 mmHg) TECHNOLOGIST: THOMAS PARK
[2025-06-21] MEDS: Semaglutide [Rybelsus] 14 MG Tablet PO SCH (09:00)
[2025-06-21] MEDS ORDERED: ENOXAPARIN 40 MG/0.4 ML SQ SCH (09:00)
[2025-06-21] MEDS: ENOXAPARIN 30 MG/0.3 ML SQ SCH (09:24)
[2025-06-21] MEDS: ASPIRIN 81 MG CHEWABLE TABLET PO SCH (09:25)
[2025-06-21] MEDS: TAMSULOSIN 0.4 MG SR CAP PO SCH (09:25)
[2025-06-21] MEDS: BUMETANIDE 1 MG TABLET PO SCH (09:25)
[2025-06-21] MEDS: INSULIN GLARGINE 100 UNIT/ML SQ SCH (12:06)
--- NOTE | 2025-06-21 12:51 | P.PN ---
Subjective Date of Service: 06/21/25 Chief Complaint: Shortness of breath Subjective: No new changes, No C/O voiced, Tolerating diet, Ambulating, Improving Review of Systems 10-point ROS is otherwise unremarkable Physical Examination - Vital Signs Temperature: 98.3 F Blood Pressure: 149/69 Pulse: 79 Respirations: 19 Pulse Ox (%): 97 - Physical Exam General: Alert, In no apparent distress HEENT: Atraumatic, PERRLA, EOMI Neck: Supple, JVD not distended Respiratory: Clear to auscultation bilaterally, Normal air movement Cardiovascular: Regular rate/rhythm, Normal S1 S2 Gastrointestinal: Normal bowel sounds, No tenderness Musculoskeletal: No tenderness Integumentary: No rashes Neurological: Normal speech, Normal tone, Normal affect Lymphatics: No axilla or inguinal lymphadenopathy - Studies Medications List Reviewed: Yes Assessment And Plan - Current Problems (Diagnosis) (1) Acute on chronic diastolic heart failure Current Visit: Yes Status: Acute Plan: continue lasix 40 m IV BID for one more day then switch to Bumex 1 mg po BID continue Coreg, Hydralazine and Isordil monitor input and output and electrolytes (2) Coronary artery disease Current Visit: No Status: Acute Plan: stable, troponin negative, continue ASA and Lipitor (3) Hypertension Current Visit: No Status: Acute Plan: continue medications as above.
--- NOTE | 2025-06-21 16:50 | RAD REPORT ---
EXAMINATION: NUCLEAR MEDICINE VENTILATION PERFUSION SCAN XENON CLINICAL INDICATION: Male, 64 years old. elevated d-dimer TECHNIQUE: Ventilation images after inhaled radiopharmaceutical obtained in multiple projections.. Pe rfusion images were dynamically obtained in multiple projections after intravenous injection of Tc-99m MAA. RADIOPHARMACEUTICALS: 19.6 mCi of Xenon-133 and 6.8 mCi intravenous Tc-99m MAA. COMPARISON: 06/20/2025 chest radiograph FINDINGS: VENTILATION: No focal ventilation defect. PERFUSION: No wedge-shaped peripheral perfusion defects. IMPRESSION: Normal or very low probability for pulmonary embolism by modified PIOPED 2 criteria.
--- NOTE | 2025-06-22 05:03 | P.PN ---
Subjective Date of Service: 06/21/25 Patient's respiratory status is better today. Patient was diuresed. Renal function is slightly more elevated. GFR is roughly the same. Continue with diuresing and monitor renal function closely. Review of Systems 10-point ROS is otherwise unremarkable Physical Examination - Vital Signs Temperature: 98.3 F Blood Pressure: 155/75 Pulse: 83 Respirations: 16 Pulse Ox (%): 94 - Physical Exam General: Alert, In no apparent distress, Oriented x3 Respiratory: Clear to auscultation bilaterally, Normal air movement Cardiovascular: Regular rate/rhythm, Normal S1 S2, No murmurs Gastrointestinal: Normal bowel sounds, Soft and benign, Non-distended, No tenderness Musculoskeletal: No clubbing, No swelling, No tenderness Integumentary: No rashes Neurological: Sensation intact, Cranial nerves 3-12 intact - Studies Medications List Reviewed: Yes Assessment & Plan - Problems (Diagnosis) (1) Acute CHF Current Visit: Yes Status: Acute (2) Coronary artery disease Current Visit: No Status: Acute (3) Diabetes mellitus type 2 in nonobese Current Visit: No Status: Acute (4) Hypertension Current Visit: No Status: Acute - Plan PLAN: Continue with plan of care as mentioned below: 1. Acute CHF exacerbation; continue with echocardiogram which revealed normal ejection fraction. Continue with BP support. Continue with MARIA G and beta- jose enrique along with diuretics. Await for echocardiogram prior to making further adjustments. Cardiology consulted. Strict I's and O's and daily weights. Continue with education regarding congestive heart failure 2. Metabolic syndrome; strict blood pressure and blood sugar control and check LDL along with additional lipid profile. Check thyroid studies. Patient is on multiple blood pressure medications and also on Tresiba along with lispro. Will continue with diabetic medications once nursing staff posted in. 3. BPH; continue with Flomax 4. GI DVT prophylaxis Discharge Plan: Home Plan to discharge in: Greater than 2 days - Advance Directives Does patient have a Living Will: No Does patient have a Durable POA for Healthcare: No - Code Status/Comfort Care Code Status: Full Code Critical Care: No Time Spent Managing PTS Care (In Minutes): 35
[2025-06-22 07:17] LABS: Absolute Lymphocytes (CBC) 1.1 K/uL (0.7-4.9); Hematocrit 26.8 % (39.6-49.0); Hemoglobin 8.7 g/dL (13.6-17.9); MCH 26.0 pg (27.0-35.0); MCHC 32.3 g/dL (32.0-36.0); MCV 80.3 fL (80-100); MPV 8.2 fL (7.6-11.3); Nucleated RBC Absolute Count 0.0 (0-0); Nucleated Red Blood Cells % 0.0 % (0-0); RBC Red Blood Cell Count 3.34 M/uL (4.33-5.43); White Blood Count 5.40 thou/uL (4.3-10.9)
[2025-06-22 07:18] LABS: ALT/SGPT 26.0 U/L (16-61); AST/SGOT 24.0 U/L (15-37); Albumin 2.6 g/dL (3.4-5.0); Albumin/Globulin Ratio 0.7 (1.1-1.8); Alkaline Phosphatase 65.0 U/L (45-117); Anion Gap 10.6 mEq/L (5.0-15.0); BUN Blood Urea Nitrogen 69.0 mg/dL (7-18); Globulin 3.6 g/dL (2.3-3.5); Glucose Level 111.0 mg/dL (74-106); Potassium 4.6 mEq/L (3.5-5.1); Uric Acid 8.3 mg/dL (3.5-7.2)
[2025-06-22 09:27] LABS: Sqamous Epithelial <5 /HPF (None Seen); Urine Micro Reflex YN NO BILL MICROSCOPIC
--- NOTE | 2025-06-22 11:30 | P.CNS ---
Date of Consult: 06/22/25 Reason for Consult: BRENDA, CKD IV Requesting Physician: Maldonado Maldonado Chief Complaint: Shortness of breath History of Present Illness: Pt is a 64-year-old AA gentleman with a hx of chronic IDDM, advanced CKD under the care of Nephrologists out of the [facility], a hx of chronic HTN, diastolic CHF who reports more acute onset orthopnea and PND. He denies outright angina. He acknowledges some LE edema. He acknowledges his BP has been sub optimally controlled. He has had some cough, no wheezing, he has had some subjective fevers in the recent past. Allergies No Known Allergies Allergy (Unverified 08/14/12 08:53) Home Medications: Aspirin 81 mg PO DAILY 12/30/20 Atorvastatin Calcium [Lipitor] 80 mg PO BEDTIME 12/30/20 Insulin NPH Human Isophane [Novolin N] 25 unit SQ BID 12/30/20 Tamsulosin [Flomax*] 0.4 mg PO DAILY 12/30/20 Bumetanide 1 mg PO DAILY 10/25/23 Hydralazine [Apresoline*] 100 mg PO TID 10/25/23 Amlodipine [Norvasc] 10 mg PO DAILY 06/20/25 Carvedilol [Coreg] 12.5 mg PO BID 06/20/25 Cholecalciferol (Vitamin D3) [Vitamin D3] 1 cap PO DAILY 06/20/25 Ferrous Sulfate [Iron] 1 tab PO DAILY 06/20/25 Insulin Degludec [Tresiba] 25 units SQ BID 06/20/25 Isosorbide Dinit [Isordil] 20 mg PO BID 06/20/25 Semaglutide [Rybelsus] 1 tab PO DAILY 06/20/25 - Past Medical/Surgical History Diabetic: Yes -: CAD -: IDDM II -: CKD IV -: HTN -: HLD -: BPH with LUTS -: Coronary stent -: Rt 2nd toe amputated -: retinal detactment Psychosocial/ Personal History: Retired, lives at home with family - Family History Mother Medical History: Heart disease, Diabetes Father Medical History: Diabetes - Social History Alcohol use: Yes CD- Drugs: No Caffeine use: Yes Place of Residence: Home Review of Systems General: Fever Eyes: Unremarkable ENT: As per HPI Respiratory: Cough, Shortness of Breath, As per HPI Cardiovascular: Orthopnea, Paroxysmal Noc. Dyspnea, Edema Gastrointestinal: Unremarkable Genitourinary: Unremarkable Musculoskeletal: Unremarkable Integumentary: Unremarkable Neurological: Unremarkable Lymphatics: Unremarkable Physical Examination Temp Pulse Resp BP Pulse Ox 98.0 F 83 15 161/81 H 93 06/22/25 08:00 06/22/25 10:21 06/22/25 08:00 06/22/25 10:21 06/22/25 08:00 General: In no apparent distress, Cooperative HEENT: Atraumatic, Normocephalic Neck: Supple Respiratory: Normal air movement, Other (Non tachypnec, some coughing during inspiration, b/l air entry without rhonchi) Cardiovascular: Regular rate/rhythm, Other (no cardiac gallop heart sounds appreciated) Gastrointestinal: Soft and benign, Non-distended, No tenderness Musculoskeletal: No contractures, No tenderness, Other (Mild distal edema) Neurological: Normal speech, Normal tone Conclusions/Impression: A/P) 1. BRENDA on underlying CKD IV, exact recent baseline Cr level/eGFR is not available at this time, eGFR assessments imply steady state kinetics. Worsening of renal function may reflect CRS physiology, effect of diuresis, other 2. Cont to trend renal function closely, pt will need close f/u with OP Nephologists on discharge 3. Shortness of breath, multifactorial. Acute diastolic CHF. Ischemic CMP. Mild pulm HTN per TTE. Cont diuretics, adjust maintenance Bumex dose on discharge potentially 4. Chronic hypertensive heart and kidney disease -BP mod elevated, resume CCB but switch Amlodipine to Nifedipine ER. Hold off on GRAYSON inhibitors at this time to avoid confounding drops in GFR 5. Anemia 2nd to CKD -Hb < 9, eval for OP ANGEL dosing through referral from his regular Nephrologists.
[2025-06-22 12:15] LABS: MA/CREAT RATIO 1050.0 (< 30.0); UR CREAT 74.0 mg/dL (20-370); UR MICROALBUMIN 77.7 mg/dL (< 1.9); UR PROTEIN 121.1 mg/dL (<11.9)
--- NOTE | 2025-06-22 15:43 | P.PN ---
Subjective Date of Service: 06/22/25 Chief Complaint: Shortness of breath Subjective: No new changes, No C/O voiced, Tolerating diet, Ambulating, Improving Review of Systems 10-point ROS is otherwise unremarkable Physical Examination - Vital Signs Temperature: 98.3 F Blood Pressure: 126/58 Pulse: 83 Respirations: 15 Pulse Ox (%): 93 - Physical Exam General: Alert, In no apparent distress HEENT: Atraumatic, PERRLA, EOMI Neck: Supple, JVD not distended Respiratory: Clear to auscultation bilaterally, Normal air movement Cardiovascular: Regular rate/rhythm, Normal S1 S2 Gastrointestinal: Normal bowel sounds, No tenderness Musculoskeletal: No tenderness Integumentary: No rashes Neurological: Normal speech, Normal tone, Normal affect Lymphatics: No axilla or inguinal lymphadenopathy - Studies Medications List Reviewed: Yes Assessment And Plan - Current Problems (Diagnosis) (1) Acute on chronic diastolic heart failure Current Visit: Yes Status: Acute Plan: Diursed well with IV lasix, mention breathing is better D/C IV lasix Switch to Bumex 1 mg po BID continue Coreg, Hydralazine and Isordil monitor input and output and electrolytes Cardiology will sign off, please call with any questions. (2) Coronary artery disease Current Visit: No Status: Acute Plan: stable, troponin negative, continue ASA and Lipitor (3) Hypertension Current Visit: No Status: Acute Plan: continue medications as above.
[2025-06-22] MEDS: FUROSEMIDE 20 MG/ 2ML VIAL IV SCH (17:43)
--- NOTE | 2025-06-22 18:27 | P.PN ---
Date of Service: 06/22/25 Subjective Awake, no new complaint good UOP ROS 10 point ROS as noted above, otherwise negative Physical Exam General: Alert, In no apparent distress, Oriented x3 Respiratory: Clear to auscultation bilaterally, Normal air movement Cardiovascular: Regular rate/rhythm, Normal S1 S2, No murmurs Gastrointestinal: Normal bowel sounds, Soft and benign, Non-distended, No tenderness Musculoskeletal: No clubbing, No swelling, No tenderness Integumentary: No rashes Neurological: Sensation intact, Cranial nerves 3-12 intact Vitals Reviewed Problem list Acute on chronic diastolic heart failure exacerbation Hx of CAD Metabolic syndrome BPH Assessment and Plan Acute on chronic diastolic heart failure exacerbation Hx of CAD -ECHO normal EF -continue with BP control -continue with lasix PO -monitor electrolytes -coreg, hydralazine and isordil -Cardiology consulted and signed off Metabolic syndrome - strict blood pressure and blood sugar control BRENDA Underlying CKD IV BPH - continue Flomax -diuresing well, good UOP -monitor in AM labs closely DVT ppx Lovenox Code status LOS 2-3 days Time Spent Managing Pts Care (In Minutes): 35 <Adelia Diaz - Last Filed: 06/22/25 20:45> I have personally seen and evaluated the patient. I have reviewed the history, physical exam findings, and assessment provided by Adelia Diaz [employer]ING [employer]AP CL[employer]ER. I agree with the plan of care as documented <Juan Diego Lemos - Last Filed: 06/23/25 06:33>
[2025-06-22] MEDS: NIFEDIPINE XL 60 MG TABLET PO SCH (20:16)
[2025-06-23 05:40] LABS: ALT/SGPT 25.0 U/L (16-61); AST/SGOT 23.0 U/L (15-37); Albumin 2.6 g/dL (3.4-5.0); Albumin/Globulin Ratio 0.8 (1.1-1.8); Alkaline Phosphatase 66.0 U/L (45-117); Anion Gap 11.1 mEq/L (5.0-15.0); BUN Blood Urea Nitrogen 67.0 mg/dL (7-18); Globulin 3.4 g/dL (2.3-3.5); Glucose Level 127.0 mg/dL (74-106); Magnesium 2.1 mg/dL (1.6-2.4); Potassium 4.1 mEq/L (3.5-5.1)
[2025-06-23 08:47] VITALS: O2SAT 97
[2025-06-23 12:10] VITALS: BP 140/68; TEMP 98.1
--- NOTE | 2025-06-23 13:07 | PN ---
Date of Progress Note: 06/23/2025 Subjective: The patient was seen and examined at bedside. He denies any more further shortness of b reath. Physical Examination: Vital Signs: Have been reviewed and are stable. General: He appears in no acute distress. Lungs: Clear. Neck: No JVD was noted. Abdomen: Soft and nontender. Extremities: With trace amount of edema. Laboratory Data: Showing creatinine of 4.06. Other electrolytes are stable. CBC results are showin g hemoglobin of 8.7 and hematocrit 26.8. Current Medications: Include Bumex 1 mg p.o. daily, atorvastatin, aspirin, Lovenox for DVT prophylax is, Lasix 20 mg IV b.i.d., hydralazine 100 mg 3 times a day, isosorbide 20 mg b.i.d., nifedipine 60 m g at bedtime, and tamsulosin, and Rybelsus 1 tablet daily. Impression: 1. Acute on chronic renal insufficiency secondary to cardiorenal syndrome, currently with overall sta ble renal function. He does have advanced stage 4 chronic kidney disease. Continue diuresis. Volum e status seems improved. 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 2. Type 2 diabetes. Continue Rybelsus. 3. Diastolic heart failure. Continue goal-directed medical therapy. Avoid MARIA G inhibitors or ARB for right now. Plan: Overall, the patient's volume status is significantly improved. He is okay to be discharged f rom Nephrology standpoint with outpatient followup with his regular mimeograph operator. KAIT/DEVIKA Voice ID: [id number] Report ID: [id number]
--- NOTE | 2025-06-23 16:07 | P.DS ---
Admission Date: 06/21/25 Discharge Date: 06/23/25 Reason for Admission: Shortness of breath Brief History of Present Illness: Diagnosis Acute on chronic diastolic heart failure exacerbation Hx of CAD Metabolic syndrome BRENDA Underlying CKD IV BPH HPI 06/20/25 Patient is a 64-year-old gentleman who came to the hospital with shortness of breath. Patient states he woke up the last couple of mornings having difficulty breathing. When he got out of bed he was tachypneic and he decided to call EMS. When he arrived his blood pressure was slightly elevated. He has a history of coronary artery disease with prior stent placement over at [facility]. He denies a history of congestive heart failure. He states he has been taking the medication as prescribed. He has not lost any significant amount of weight. He came into the emergency room and was diuresed and is feeling better. At this time chest x-ray also showed pulmonary edema. Patient will be admitted to the hospital for observation. Hospital Course: Dusty was admitted and treated for acute kidney disease with CHF requiring diuresis. Nephrology and cardiolgoy consulted and followed closely. He has tolerated diuresis with good urine output and improvement seen in his renal panel this morning. D-dimer elevated, VQ scan negative for PE. Nephrology and cardiology have cleared him for discharge with follow up at their offices. He is tolerating PO diet, Bumex PO, and ambulating independently. He was seen on morning rounds with vital signs stable. He will be discharged home with family support. Physical Exam General: Alert and Oriented x3, NAD Respiratory: Clear BBS, Normal air movement, on RA Cardiovascular: NSR, Normal S1 S2 Gastrointestinal: Normal bowel sounds, Soft and benign, Non-distended, No tenderness Musculoskeletal: 2+ peripheral pulses Integumentary: No rashes Neurological: normal affect <Adelia Diaz - Last Filed: 06/23/25 16:56> Admission Date: 06/21/25 Discharge Date: 06/23/25 <Juan Diego Lemos - Last Filed: 06/23/25 17:13> Disposition: ROUTINE DISCHARGE Discharge Condition: GOOD Vital Signs/Physical Exam: Temp Pulse Resp BP Pulse Ox 98.1 F 79 16 140/68 94 06/23/25 12:00 06/23/25 12:00 06/23/25 12:00 06/23/25 12:00 06/23/25 12:00 Laboratory Data at Discharge: WBC 5.40 thou/uL (4.3-10.9) 06/22/25 06:48 Hgb 8.7 g/dL (13.6-17.9) L 06/22/25 06:48 Hct 26.8 % (39.6-49.0) L 06/22/25 06:48 Plt Count 230 thou/uL (152-406) 06/22/25 06:48 PT 12.2 SECONDS (10-13.0) 06/20/25 05:00 INR 1.08 06/20/25 05:00 Sodium 141 mEq/L (136-145) 06/23/25 04:44 Potassium 4.1 mEq/L (3.5-5.1) 06/23/25 04:44 BUN 67 mg/dL (7-18) H 06/23/25 04:44 Creatinine 4.06 mg/dL (0.70-1.30) H 06/23/25 04:44 Glucose 127 mg/dL (74-106) H 06/23/25 04:44 Uric Acid 8.3 mg/dL (3.5-7.2) H 06/22/25 06:48 Phosphorus 4.5 mg/dL (2.5-4.9) 06/22/25 06:48 Magnesium 2.1 mg/dL (1.6-2.4) 06/23/25 04:44 Total Bilirubin 0.2 mg/dL (0.2-1.0) 06/23/25 04:44 AST 23 U/L (15-37) 06/23/25 04:44 ALT 25 U/L (16-61) 06/23/25 04:44 Alkaline Phosphatase 66 U/L (45-117) 06/23/25 04:44 Triglycerides 76 mg/dL (<150) 06/21/25 03:54 Cholesterol 114 mg/dL (<200) 06/21/25 03:54 HDL Cholesterol 47 mg/dL (40-60) 06/21/25 03:54 Cholesterol/HDL Ratio 2.43 06/21/25 03:54 <Adelia Diaz - Last Filed: 06/23/25 16:56> Vital Signs/Physical Exam: Temp Pulse Resp BP Pulse Ox 98.1 F 79 16 140/68 94 06/23/25 12:00 06/23/25 12:00 06/23/25 12:00 06/23/25 12:00 06/23/25 12:00 Laboratory Data at Discharge: WBC 5.40 thou/uL (4.3-10.9) 06/22/25 06:48 Hgb 8.7 g/dL (13.6-17.9) L 06/22/25 06:48 Hct 26.8 % (39.6-49.0) L 06/22/25 06:48 Plt Count 230 thou/uL (152-406) 06/22/25 06:48 PT 12.2 SECONDS (10-13.0) 06/20/25 05:00 INR 1.08 06/20/25 05:00 Sodium 141 mEq/L (136-145) 06/23/25 04:44 Potassium 4.1 mEq/L (3.5-5.1) 06/23/25 04:44 BUN 67 mg/dL (7-18) H 06/23/25 04:44 Creatinine 4.06 mg/dL (0.70-1.30) H 06/23/25 04:44 Glucose 127 mg/dL (74-106) H 06/23/25 04:44 Uric Acid 8.3 mg/dL (3.5-7.2) H 06/22/25 06:48 Phosphorus 4.5 mg/dL (2.5-4.9) 06/22/25 06:48 Magnesium 2.1 mg/dL (1.6-2.4) 06/23/25 04:44 Total Bilirubin 0.2 mg/dL (0.2-1.0) 06/23/25 04:44 AST 23 U/L (15-37) 06/23/25 04:44 ALT 25 U/L (16-61) 06/23/25 04:44 Alkaline Phosphatase 66 U/L (45-117) 06/23/25 04:44 Triglycerides 76 mg/dL (<150) 06/21/25 03:54 Cholesterol 114 mg/dL (<200) 06/21/25 03:54 HDL Cholesterol 47 mg/dL (40-60) 06/21/25 03:54 Cholesterol/HDL Ratio 2.43 06/21/25 03:54 <Juan Diego Lemos - Last Filed: 06/23/25 17:13> Diet: Renal Activity: Ad lurdes <Adelia Diaz - Last Filed: 06/23/25 16:56> Physician Review: Patient Assessed, Agree with Above Assessment and Plan <Juan Diego Lemos - Last Filed: 06/23/25 17:13> Home Medications: Aspirin 81 mg PO DAILY 12/30/20 Atorvastatin Calcium [Lipitor] 80 mg PO BEDTIME 12/30/20 Insulin NPH Human Isophane [Novolin N] 25 unit SQ BID 12/30/20 Tamsulosin [Flomax*] 0.4 mg PO DAILY 12/30/20 Bumetanide 1 mg PO DAILY 10/25/23 Hydralazine [Apresoline*] 100 mg PO TID 10/25/23 Amlodipine [Norvasc*] 10 mg PO DAILY 06/20/25 Carvedilol [Coreg] 12.5 mg PO BID 06/20/25 Cholecalciferol (Vitamin D3) [Vitamin D3] 1 cap PO DAILY 06/20/25 Ferrous Sulfate [Iron] 1 tab PO DAILY 06/20/25 Insulin Degludec [Tresiba] 25 units SQ BID 06/20/25 Isosorbide Dinit [Isordil*] 20 mg PO BID 06/20/25 Semaglutide [Rybelsus] 1 tab PO DAILY 06/20/25 Nifedipine Xl [Procardia XL*] 60 mg PO BEDTIME 30 Days #30 tab 06/23/25 Nifedipine [Procardia Xl] 60 mg PO BEDTIME 30 Days #30 tab 06/23/25 New Medications: Nifedipine [Procardia Xl] 60 mg PO BEDTIME 30 Days #30 tab Nifedipine Xl [Procardia XL*] 60 mg PO BEDTIME 30 Days #30 tab Physician Discharge Instructions: 1. Please call and schedule a follow-up appointment with your PCP in 3-5 days - Please follow-up with your PCP for medication refills/adjustments 2. Please call and schedule a follow-up appointment with Dr. Rawls's group in 1 week -Follow closely as you are now in advanced stage IV kidney failure 3. Please call and schedule follow-up appointment with Dr. Hsieh in 1 week 4. Continue renal diet 5. No activity restrictions 6. Return to the ED if symptoms worsen New medications Procardia 60 mg at bedtime Followup: Brandon Rawls DO [ACTIVE - CAN ADMIT] - OOT,OOT [Primary Care Provider] -
== END 2025-06-23 16:41 | disposition home or self-care (01) | DRG 291 ==
LOC: ER 04:33 → ERHOLD 10:16 → 2ND 11:25 → OBSVTOIN 06-21 17:38
PROVIDERS: ADMIT Hospitalist; ATTEND Family Medicine
DX: I13.0 Hypertensive heart and chronic kidney disease with heart failure and stage 1 through stage 4 chronic kidney disease, or unspecified chronic kidney disease (principal); I50.33 Acute on chronic diastolic (congestive) heart failure; N18.4 Chronic kidney disease, stage 4 (severe); N17.9 Acute kidney failure, unspecified; E11.22 Type 2 diabetes mellitus with diabetic chronic kidney disease; D63.1 Anemia in chronic kidney disease; E78.5 Hyperlipidemia, unspecified; E88.810 Metabolic syndrome; I25.2 Old myocardial infarction; N40.0 Benign prostatic hyperplasia without lower urinary tract symptoms; I25.10 Atherosclerotic heart disease of native coronary artery without angina pectoris; Z11.52 Encounter for screening for COVID-19; Z86.73 Personal history of transient ischemic attack (TIA), and cerebral infarction without residual deficits; Z95.5 Presence of coronary angioplasty implant and graft; Z79.82 Long term (current) use of aspirin; Z79.4 Long term (current) use of insulin; Z79.899 Other long term (current) drug therapy; Z89.421 Acquired absence of other right toe(s); Z87.891 Personal history of nicotine dependence
CPT/HCPCS: 36415; 71045; 78582; 80048; 80053; 80061; 81001; 82043; 82570; 82947; 83735; 83880; 84100; 84156; 84484; 84550; 85025; 85379; 85610; 86140; 87428; 93005; 93306; 94010; 96365; 96375; 99285; A9540; A9558; G0378; J0456; J1650; J1938; J2405; J7050